=== PATIENT | male | born 1940 | race Caucasian/White ===

== ENCOUNTER 2022-08-22 03:49 | Outpatient (RCR) | payer MEDICARE, SELFPAY | END 2022-09-20 23:59 | disposition home or self-care (01) | LOC: MM 03:49 | PROVIDERS: PCP Internal Medicine; Visit Provider Internal Medicine | DX: Z51.81 Encounter for therapeutic drug level monitoring (principal); Z79.01 Long term (current) use of anticoagulants | CPT/HCPCS: 85610; G0463 ==

== ENCOUNTER 2022-09-25 15:37 | Outpatient (RCR) | payer MEDICARE, SELFPAY | END 2022-10-21 16:57 | disposition home or self-care (01) | LOC: MM 15:37 | PROVIDERS: PCP Internal Medicine; Visit Provider Internal Medicine | DX: Z51.81 Encounter for therapeutic drug level monitoring (principal); Z79.01 Long term (current) use of anticoagulants | CPT/HCPCS: 85610; G0463 ==

== ENCOUNTER 2022-10-02 08:42 | Outpatient (OUT) | payer OTHER, SELFPAY ==
--- NOTE | 2022-10-02 09:01 | XR_ITS ---
The [address] [address] Patient Name: CARLEY BELLA MRN: [id number] date: 1940 Sex: M Assigned Patient Location: RAD Current Patient Location: [facility] Accession/Order Number: [id number] Exam Date: 10/02/2022 09:20 Report Date: 10/02/2022 09:55 At the request of: NON-STAFF PHYSICIAN Procedure: XR knee RT 3V PROCEDURE: XR knee RT 3V HISTORY: Osteoporosis M81.0, Arthritis M13.80 ; right knee pain, no known injury COMPARISON: None. FINDINGS: BONES:Mild-moderate narrowing of the medial joint space with periarticular degenerative osteophytes along the margins of the medial compartment and anterior compartment. No fracture, dislocation, bone lesion. SOFT TISSUES:No visible soft tissue swelling. EFFUSION:None visible. OTHER: Negative. XR/XR knee RT 3V IMPRESSION: 1. Moderate degenerative joint disease of the right knee. No appreciable acute abnormality. Electronically authenticated by: STEVE WRIGHT Date: 10/02/2022 09:55
--- NOTE | 2022-10-02 09:01 | XR_ITS ---
[address] [address] Patient Name: CARLEY BELLA MRN: [id number] date: 1940 Sex: M Assigned Patient Location: RAD Current Patient Location: RAD Accession/Order Number: [id number] Exam Date: 10/02/2022 09:25 Report Date: 10/02/2022 09:53 At the request of: NON-STAFF PHYSICIAN Procedure: XR DEXA axial skeleton EXAMINATION: XR DEXA axial skeleton HISTORY: Osteoporosis M81.0, Arthritis M13.80 COMPARISON: No relevant comparison available. TECHNIQUE: Dual-energy X-ray absorptiometry (DXA) was performed. FINDINGS: FOREARM ANALYSIS: Average bone mineral density is 0.780 g/cm2. T-score (standard deviation relative to young adult mean): -0.3 . HIP ANALYSIS: Lowest bone mineral density is within the left femoral neck, 0.969 g/cm2. T-score (standard deviation relative to young adult mean): -0.8 . XR/XR DEXA axial skeleton IMPRESSION: [employer] Classification: Normal - Low Fracture Risk Electronically authenticated by: STEVE WRIGHT Date: 10/02/2022 09:53
== END 2022-10-02 08:43 | disposition home or self-care (01) ==
PROVIDERS: PCP Internal Medicine
DX: M81.0 Age-related osteoporosis without current pathological fracture (principal); M13.80 Other specified arthritis, unspecified site; M25.561 Pain in right knee; M17.11 Unilateral primary osteoarthritis, right knee
CPT/HCPCS: 73562; 77080

== ENCOUNTER 2022-10-22 09:18 | Outpatient (RCR) | payer MEDICARE, SELFPAY | END 2022-11-21 17:33 | disposition home or self-care (01) | LOC: MM 09:18 | PROVIDERS: PCP Internal Medicine; Visit Provider Internal Medicine | DX: Z51.81 Encounter for therapeutic drug level monitoring (principal); Z79.01 Long term (current) use of anticoagulants | CPT/HCPCS: 85610; G0463 ==

== ENCOUNTER 2022-11-22 10:19 | Outpatient (RCR) | payer MEDICARE, SELFPAY | END 2022-12-20 16:50 | disposition home or self-care (01) | LOC: MM 10:19 | PROVIDERS: PCP Internal Medicine; Visit Provider Internal Medicine | DX: Z51.81 Encounter for therapeutic drug level monitoring (principal); Z79.01 Long term (current) use of anticoagulants ==

== ENCOUNTER 2022-12-23 02:43 | Outpatient (RCR) | payer MEDICARE, SELFPAY | END 2023-01-21 17:41 | disposition home or self-care (01) | LOC: MM 02:43 | PROVIDERS: PCP Internal Medicine; Visit Provider Internal Medicine | DX: Z51.81 Encounter for therapeutic drug level monitoring (principal); Z79.01 Long term (current) use of anticoagulants; I82.409 Acute embolism and thrombosis of unspecified deep veins of unspecified lower extremity | CPT/HCPCS: 85610; G0463 ==

== ENCOUNTER 2023-01-03 14:06 | Outpatient (OUT) | payer MEDICARE, SELFPAY ==
--- NOTE | 2023-01-03 | US_ITS ---
The [address] [address] Patient Name: CARLEY BELLA MRN: [id number] date: 1940 Sex: M Assigned Patient Location: US Current Patient Location: Accession/Order Number: [id number] Exam Date: 01/03/2023 14:17 Report Date: 01/06/2023 06:29 At the request of: ZAINAB CLARK Procedure: US soft tissue head and neck EXAM: US soft tissue head and neck HISTORY: TYPE 2 DIABETES MELLITUS WITH HYPERGLYCEMIA E11.65 COMPARISON: None. TECHNIQUE: Grayscale and color ultrasound FINDINGS: Heterogeneous hypoechoic echogenic vascular mass corresponding to the patient's palpable abnormality along the left posterior inferior measuring 2.2 x 1.8 x 1.8 cm. US/US soft tissue head and neck IMPRESSION: 2.2 cm vascular mass corresponding to the patient's palpable abnormality. Unknown etiology. Electronically authenticated by: MIRELLA GARCIA Date: 01/06/2023 06:29
== END 2023-01-03 14:07 | disposition home or self-care (01) ==
LOC: US 14:06
PROVIDERS: PCP Internal Medicine; Visit Provider Internal Medicine
DX: E11.65 Type 2 diabetes mellitus with hyperglycemia (principal); R22.1 Localized swelling, mass and lump, neck
CPT/HCPCS: 76536

== ENCOUNTER 2023-01-17 07:58 | Outpatient (OUT) | payer MEDICARE, SELFPAY ==
[2023-01-17 08:27] LABS: INR 1.18; Prothrombin Time 12.4 sec (9.0-11.6)
== END 2023-01-17 07:59 | disposition home or self-care (01) ==
LOC: LAB 07:58
PROVIDERS: PCP Internal Medicine; Visit Provider Internal Medicine
DX: Z79.01 Long term (current) use of anticoagulants (principal)
CPT/HCPCS: 36415; 85610

== ENCOUNTER 2023-01-17 08:08 | Day surgery (SDC) | payer MEDICARE, SELFPAY ==
--- NOTE | 2023-01-17 08:26 | US_ITS ---
[address] [address] Patient Name: CARLEY BELLA MRN: [id number] date: 1940 Sex: M Assigned Patient Location: US Current Patient Location: Accession/Order Number: [id number] Exam Date: 01/17/2023 08:37 Report Date: 01/17/2023 11:15 At the request of: ZAINAB CLARK Procedure: US biopsy FNA EXAMINATION: US biopsy FNA HISTORY: Mass posterior to left ear COMPARISON: Ultrasound soft tissue head and neck 01/03/2023 TECHNIQUE: After obtaining informed consent, an ultrasound-guided biopsy was performed in the usual sterile manner. FINDINGS: IMAGING: Ultrasound guidance BIOPSY NEEDLE: 19-gauge needle; 3 separate passes SPECIMEN TYPE, #, LOCATION: 3 samples containing a thick gelatinous like substance. Firm nodule at posterior inferior margin of the ear at skull base MEDICATION: 1% buffered lidocaine for local anesthesia. COMPLICATIONS: None. LABORATORY: Pending OTHER: Negative. US/US biopsy FNA IMPRESSION: Uneventful ultrasound guided biopsy of subcutaneous mass at posterior inferior margin of left ear. The patient was instructed to obtain follow up care and biopsy results from the referring physician. Electronically authenticated by: STEVE WRIGHT Date: 01/17/2023 11:15
[2023-01-17 08:40] VITALS: BP 141/64; PULSE 75; O2SAT 94
[2023-01-17] MEDS: LIDOCAINE HCL 10 ML, SODIUM BICARBONATE 1 MEQ INJ (09:30)
== END 2023-01-17 10:00 | disposition home or self-care (01) ==
LOC: US 08:08
PROVIDERS: Radiology Diagnostic Radiology; PCP Internal Medicine; Visit Provider Internal Medicine
DX: R22.0 Localized swelling, mass and lump, head (principal)
CPT/HCPCS: 10005; 88173

== ENCOUNTER 2023-01-22 00:39 | Outpatient (RCR) | payer MEDICARE, SELFPAY | END 2023-02-20 16:48 | disposition home or self-care (01) | LOC: MM 00:39 | PROVIDERS: PCP Internal Medicine; Visit Provider Internal Medicine | DX: Z51.81 Encounter for therapeutic drug level monitoring (principal); Z79.01 Long term (current) use of anticoagulants | CPT/HCPCS: 85610; G0463 ==

== ENCOUNTER 2023-02-07 15:04 | Outpatient (OUT) | payer MEDICARE, SELFPAY ==
--- NOTE | 2023-02-07 15:07 | CT_ITS ---
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 TECHNIQUE: CT of the soft tissue neck was obtained without IV contrast and submitted for interpretation. FINDINGS: The imaged portions of the brain demonstrate no evidence for pathologic assessment. The imaged portions of the paranasal sinuses and mastoid air cells are clear. The nasopharynx, oropharynx and hypopharynx appear unremarkable. Along the posterior inferior aspect of the left parotid gland there is a heterogeneous enhancing rounded lesion with areas of hypoenhancement measuring 2 x 2 by 1.7 cm in AP, TV and CC dimensions. The right parotid gland is within normal limits. Bilateral submandibular glands and thyroid glands appear unremarkable. No abnormal lymphadenopathy visualized within the soft tissues of the neck. Vascular structures are intact. Imaged portions of the superior mediastinum are unremarkable. Calcified granuloma noted within the right lung apex measuring 6 mm. Multilevel spondylitic changes of the cervical spine without evidence for an acute osseous abnormality. CT/CT soft tissue neck w con IMPRESSION: 1. Along the posterior inferior aspect of the left parotid gland there is a heterogeneous enhancing rounded lesion with areas of hypoenhancement measuring approximately 2 x 2 by 1.7 cm in AP, TV and CC dimensions. Differential diagnosis include but not limited to primary parotid neoplasm such as pleomorphic adenoma, Warthin's tumor versus enlarged intraparotid lymph node. Electronically authenticated by: JESSICA LEIVA Date: 02/08/2023 05:45
== END 2023-02-07 15:05 | disposition home or self-care (01) ==
LOC: CT 15:04
PROVIDERS: PCP Internal Medicine; Visit Provider Otolaryngology
DX: K11.8 Other diseases of salivary glands (principal)
CPT/HCPCS: 70491; Q9967

== ENCOUNTER 2023-02-24 13:52 | Outpatient (OUT) | payer MEDICARE, SELFPAY ==
--- NOTE | 2023-02-24 13:56 | US_ITS ---
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 FINDINGS: Heterogeneous lobular and vascular mass 2.1 x 1.9 x 1.8 cm corresponding to patient's palpable lump. US/US soft tissue head and neck IMPRESSION: 1. Heterogeneous, avascular, suspicious appearing mass within left parotid gland region; not appreciably changed compared to 01/03/2023. Ultrasound-guided tissue sampling was performed on 01/17/2023 with pathology demonstrating atypia of undetermined significance. Electronically authenticated by: STEVE WRIGHT Date: 02/26/2023 00:56
== END 2023-02-24 13:53 | disposition home or self-care (01) ==
LOC: US 13:52
PROVIDERS: PCP Internal Medicine; Visit Provider Otolaryngology
DX: K11.8 Other diseases of salivary glands (principal)
CPT/HCPCS: 76536

== ENCOUNTER 2023-04-03 14:49 | Outpatient (RCR) | payer MEDICARE, SELFPAY | END 2023-04-23 17:12 | disposition home or self-care (01) | LOC: MM 14:49 | PROVIDERS: PCP Internal Medicine; Visit Provider Internal Medicine | DX: Z51.81 Encounter for therapeutic drug level monitoring (principal); Z79.01 Long term (current) use of anticoagulants; I82.409 Acute embolism and thrombosis of unspecified deep veins of unspecified lower extremity | CPT/HCPCS: 85610; G0463 ==

== ENCOUNTER 2023-04-24 01:49 | Outpatient (RCR) | payer MEDICARE, SELFPAY | END 2023-05-22 17:24 | disposition home or self-care (01) | LOC: MM 01:49 | PROVIDERS: PCP Internal Medicine; Visit Provider Internal Medicine | DX: Z51.81 Encounter for therapeutic drug level monitoring (principal); Z79.01 Long term (current) use of anticoagulants; I82.409 Acute embolism and thrombosis of unspecified deep veins of unspecified lower extremity | CPT/HCPCS: 85610; G0463 ==

== ENCOUNTER 2023-05-23 03:32 | Outpatient (RCR) | payer MEDICARE, SELFPAY | END 2023-06-20 14:10 | disposition home or self-care (01) | LOC: MM 03:32 | PROVIDERS: PCP Internal Medicine; Visit Provider Internal Medicine | DX: Z51.81 Encounter for therapeutic drug level monitoring (principal); Z79.01 Long term (current) use of anticoagulants; I82.409 Acute embolism and thrombosis of unspecified deep veins of unspecified lower extremity ==

== ENCOUNTER 2023-06-23 00:24 | Outpatient (RCR) | payer MEDICARE, SELFPAY | END 2023-07-22 18:01 | disposition home or self-care (01) | LOC: MM 00:24 | PROVIDERS: PCP Internal Medicine; Visit Provider Internal Medicine | DX: Z51.81 Encounter for therapeutic drug level monitoring (principal); Z79.01 Long term (current) use of anticoagulants | CPT/HCPCS: 85610; G0463 ==

== ENCOUNTER 2023-07-11 14:49 | Outpatient (OUT) | payer MEDICARE, SELFPAY ==
[2023-07-11 15:53] LABS: Basophils Percent Auto 0.5 % (0.2-2.0); Eosinophils Absolute Auto 0.2 10^3/uL (0.0-0.7); Eosinophils Percent Auto 2.3 % (0.9-7.0); Hemoglobin 14.3 g/dL (14.0-18.0); Immature Granulocytes Abs Auto 0.03 10^3/uL (0.00-0.03); Immature Granulocytes Pct Auto 0.3 % (0.0-0.5); Lymphocytes Absolute Auto 2.4 10^3/uL (1.2-3.8); Lymphocytes Percent Auto 26.8 % (20.5-60.0); Mean Corpuscular HGB Conc 33.3 g/dL (29.9-35.2); Mean Corpuscular Hemoglobin 31.2 pg (25.9-34.0); Mean Corpuscular Volume 93.9 fL (80.0-94.0); Mean Platelet Volume 9.8 fL (9.5-13.5); Monocytes Absolute Auto 0.8 10^3/uL (0.3-0.8); Monocytes Percent Auto 9.5 % (1.7-12.0); Neutrophils Absolute Auto 5.4 10^3/uL (1.4-6.5); Neutrophils Percent Auto 60.6 % (43.0-75.0); Platelet Count 213 10^3/uL (150-450); Red Blood Count 4.58 10^6/uL (4.70-6.10); Red Cell Distribution Width 12.7 % (11.0-15.0); White Blood Count 8.9 10^3/uL (4.0-11.0)
[2023-07-11 16:03] LABS: Estimated Average Glucose 177 mg/dL; Glycohemoglobin A1C 7.8 % (4.5-6.2)
[2023-07-11 16:07] LABS: Alanine Aminotransferase 37 U/L (16-63); Albumin Globulin Ratio 0.9; Albumin Level 3.6 g/dL (3.4-5.0); Alkaline Phosphatase 87 U/L (46-116); Anion Gap 11.3; Aspartate Amino Transferase 27 U/L (15-37); BUN Creatinine Ratio 10.6; Bilirubin Total 0.5 mg/dL (0.2-1.0); Calcium 9.3 mg/dL (8.5-10.1); Carbon Dioxide 26.9 mmol/L (21.0-32.0); Chloride 105 mmol/L (98-107); Chol HDL Ratio 3.4; Cholesterol 137 mg/dL (<=200); Estimated GFR (African America 58 (>=60); Estimated GFR (Non-African Ame 48 (>=60); Globulin 3.9 g/dL; Glucose 158 mg/dL (74-106); HDL Cholesterol 40 mg/dL (40-60); Potassium 4.2 mmol/L (3.5-5.1); Sodium 139 mmol/L (136-145); Total Protein 7.5 g/dL (6.4-8.2); Triglycerides 169 mg/dL (<=150); VLDL CHOLESTEROL 33.8 mg/dL
== END 2023-07-11 14:50 | disposition home or self-care (01) ==
LOC: LAB 14:50
PROVIDERS: PCP Internal Medicine; Visit Provider Internal Medicine
DX: E11.65 Type 2 diabetes mellitus with hyperglycemia (principal); E11.22 Type 2 diabetes mellitus with diabetic chronic kidney disease; E78.00 Pure hypercholesterolemia, unspecified; I12.9 Hypertensive chronic kidney disease with stage 1 through stage 4 chronic kidney disease, or unspecified chronic kidney disease; C90.00 Multiple myeloma not having achieved remission; N18.32 Chronic kidney disease, stage 3b
CPT/HCPCS: 36415; 80053; 80061; 82043; 83036; 85025

== ENCOUNTER 2023-07-14 12:33 | Outpatient (REF) | payer MEDICARE, SELFPAY | END 2023-07-14 12:34 | disposition home or self-care (01) | LOC: LAB 12:33 | PROVIDERS: PCP Internal Medicine; Visit Provider Internal Medicine | DX: E11.65 Type 2 diabetes mellitus with hyperglycemia (principal); E11.22 Type 2 diabetes mellitus with diabetic chronic kidney disease; N18.9 Chronic kidney disease, unspecified; E78.00 Pure hypercholesterolemia, unspecified; C90.00 Multiple myeloma not having achieved remission; I12.9 Hypertensive chronic kidney disease with stage 1 through stage 4 chronic kidney disease, or unspecified chronic kidney disease | CPT/HCPCS: 82043 ==

== ENCOUNTER 2023-07-23 00:24 | Outpatient (RCR) | payer MEDICARE, SELFPAY | END 2023-08-22 11:21 | disposition home or self-care (01) | LOC: MM 00:24 | PROVIDERS: PCP Internal Medicine; Visit Provider Internal Medicine | DX: Z51.81 Encounter for therapeutic drug level monitoring (principal); Z79.01 Long term (current) use of anticoagulants; I82.409 Acute embolism and thrombosis of unspecified deep veins of unspecified lower extremity | CPT/HCPCS: 85610; G0463 ==

== ENCOUNTER 2023-08-15 16:55 | Outpatient (OUT) | payer MEDICARE, SELFPAY ==
--- NOTE | 2023-08-15 | XR_ITS ---
[address] [address] Patient Name: CARLEY BELLA MRN: [id number] date: 1940 Sex: M Assigned Patient Location: [facility] Current Patient Location: [facility] Accession/Order Number: [id number] Exam Date: 08/15/2023 17:45 Report Date: 08/18/2023 10:31 At the request of: ZAINAB CLARK Procedure: XR chest 2V CHEST PA AND LATERAL, 08/15/2023. HISTORY: Dorsalgia. Shortness of breath. COMPARISON: None. FINDINGS: 2 views of the chest obtained. Heart size and mediastinal contours are normal. No pleural effusion. No airspace consolidation. No evidence of pneumonia. No pulmonary edema. No pneumothorax. XR/XR chest 2V IMPRESSION: Lungs are clear. No acute findings. Electronically authenticated by: MANDY BO Date: 08/18/2023 10:31
--- NOTE | 2023-08-15 | XR_ITS ---
[address] [address] Patient Name: CARLEY BELLA MRN: [id number] date: 1940 Sex: M Assigned Patient Location: [facility] Current Patient Location: [facility] Accession/Order Number: [id number] Exam Date: 08/15/2023 17:45 Report Date: 08/18/2023 10:31 At the request of: ZAINAB CLARK Procedure: XR lumbar spine 2-3V LUMBAR SPINE X-RAYS, 08/15/2023. HISTORY: Back pain. History of compression fracture. COMPARISON: None. FINDINGS: 2 views obtained. Chronic compression fracture at L1 with mild decreased vertebral body height. Prior vertebroplasty at L1. No acute lumbar compression fracture. Spondylolysis at L5. Grade 1 spondylolisthesis at L5-S1 measures 5 mm. Severe degenerative disc disease at L5-S1 with severe disc space narrowing. Diffuse endplate osteophytes. There is vacuum disc phenomenon at this level. Moderate degenerative disc disease at L3-L4 and L4-L5. Severe facet arthropathy at L4-L5 and L5-S1. XR/XR lumbar spine 2-3V IMPRESSION: 1. Chronic compression fracture at L1 with mild decreased vertebral body height and prior vertebroplasty. No acute compression fracture. 2. Spondylolysis at L5 with grade 1 spondylolisthesis at L5-S1. Severe degenerative disc disease and facet arthropathy at L5-S1. 3. Severe facet arthropathy and moderate degenerative disc disease at L4-L5. Electronically authenticated by: MANDY BO Date: 08/18/2023 10:31
--- NOTE | 2023-08-15 | XR_ITS ---
The [address] [address] Patient Name: CARLEY BELLA MRN: [id number] date: 1940 Sex: M Assigned Patient Location: RAD Current Patient Location: [facility] Accession/Order Number: [id number] Exam Date: 08/15/2023 17:45 Report Date: 08/18/2023 10:31 At the request of: ZAINAB CLARK Procedure: XR thoracic spine 3V THORACIC SPINE X-RAYS, 08/15/2023. HISTORY: Back pain. Pain in upper back. COMPARISON: None. FINDINGS: 3 views obtained. Alignment is normal. There is a chronic compression fracture at L1 with prior vertebroplasty. No acute compression fracture in the thoracic spine. Mild degenerative disc disease with small anterior endplate osteophytes mostly in the mid and lower thoracic levels. XR/XR thoracic spine 3V IMPRESSION: 1. No acute thoracic spine compression fracture. Alignment normal. 2. Mild degenerative disc disease with small anterior endplate osteophytes most prominent in the lower and mid thoracic levels. 3. Chronic compression fracture at L1 with prior vertebroplasty. Electronically authenticated by: MANDY BO Date: 08/18/2023 10:31
--- OUTSIDE RECORDS SUMMARY | 2023-08-15 17:20 | XMS_ITS | CCD ---
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 Name Role Phone Adamowicz, Shawn Unavailable Unavailable Adamowicz, Shawn Unavailable Unavailable Adamowicz, Shawn Unavailable Unavailable DANILO THAKKAR~[id number] UNKNOWN Unavailable Unavailable Adamowicz, Shawn Unavailable Unavailable Adamowicz, Shawn Unavailable Unavailable Tomasa, Shawn Unavailable Unavailable DANILO THAKKAR~[phone] UNKNOWN Unavailable Unavailable Sujit Jefferson~[phone] UNKNOWN Unavailable Unavailable Danilo Thakkra DO Primary Care Provider Danilo Thakkar DO Primary Care Provider Danilo Thakkar TEEWWAD, IVY H Attending Unavailable FAWWAD, IVY H Admitting Unavailable BALL, DR LAMB Primary Care Unavailable FAWWAD, IVY H Attending Unavailable FAWWAD, IVY H Admitting Unavailable BALL, DR LAMB Primary Care Unavailable FAWWAD, IVY H Attending Unavailable FAWWAD, IVY H Admitting Unavailable BALL, DR LAMB Primary Care Unavailable FAWWAD, IVY H Attending Unavailable FAWWAD, IVY H Admitting Unavailable BALL, DR LAMB Primary Care Unavailable FAWWAD, IVY H Attending Unavailable FAWWAD, IVY H Admitting Unavailable BALL, DR LAMB Primary Care Unavailable FAWWAD, IVY H Attending Unavailable FAWWAD, IVY H Admitting Unavailable BALL, DR LAMB Primary Care Unavailable FAWWAD, IVY H Attending Unavailable FAWWAD, IVY H Admitting Unavailable BALL, DR LAMB Primary Care Unavailable FAWWAD, IVY H Attending Unavailable BALL, DR LAMB Primary Care Unavailable FAWWAD, IVY H Admitting Unavailable FAWWAD, IVY H Attending Unavailable FAWWAD, IVY H Admitting Unavailable BALL, DR LAMB Primary Care Unavailable BALL, DR LAMB Consulting Unavailable BALL, DR LAMB Attending Unavailable BALL, DR LAMB Admitting Unavailable BALL, DR LAMB Primary Care Unavailable BALL, DR LAMB Primary Care Unavailable BALL, DR LAMB Consulting Unavailable BALL, DR LAMB Attending Unavailable BALL, DR LAMB Admitting Unavailable BALL, DR LAMB Consulting Unavailable BALL, DR LAMB Attending Unavailable BALL, DR LAMB Admitting Unavailable BALL, DR LAMB Primary Care Unavailable FAWWAD, IVY H Attending Unavailable FAWWAD, IVY H Admitting Unavailable BALL, DR LAMB Primary Care Unavailable FAWWAD, IVY H Attending Unavailable FAWWAD, IVY H Admitting Unavailable BALL, DR LAMB Primary Care Unavailable Unavailable Primary Care Provider Unavailabl e REZAEE, JULIAN P Attending Unavailable REZAEE, JULIAN P Admitting Unavailable REZAEE, JULIAN P Attending Unavailable LUIS CARLOS, WEN Pompa Attending Unavailable TIMMIS, DEEPTHI Gunderson Attending Unavailable LUIS CARLOS, WEN Pompa Attending Unavailable Ball DODanilo Primary Care Provider DANILO THAKKAR E Primary Care Unavailable BALL, DANILO E Primary Care Unavailable ABHYANKAR, ANIBAL Referring Unavailable BALL, DANILO E Primary Care Unavailable ABHYANKAR, ANIBAL Attending Unavailable BALL, DANILO E Primary Care Unavailable ABHYANKAR, ANIBAL Attending Unavailable BALL, DANILO E Primary Care Unavailable Allergies Allergy Classification Reported Allergen(s) Allergy Type Date of Onset Reaction(s) Facility (8 sources) Penicillins; Translations: [PENICILLINS] Drug Allergy 4 Swelling, Unknown [facility] Work Phone: (20 sources) penicillAMINE; Translations: [PENICILLAMINE] Drug Allergy 4 Unknown [facility] Other (10 sources) Penicillins Propensity to adverse reactions Unknown [facility] Other (1 source) Penicillins Drug allergy (disorder) 4 [facility] Repository (12 sources) Lisinopril; Translations: [LISINOPRIL] Drug Allergy 3 Unknown [facility] (9 sources) Penicillin V Drug Allergy 4 Unknown, Unknown Reaction [facility] Medications Current Medications Medication Drug Class(es) Dates Sig (Normalized) Sig (Original) Accu-Chek Elizabeth Plus - (8 sources) Accu-Chek Elizabeth Plus - USE AND DISCARD 1 TEST STRIP TO CHECK HOME BLOOD SUGAR TWO TIMES A DAY for 90 Active acyclovir 400 mg oral tablet (3 sources) Herpesvirus Nucleoside Analog DNA Polymerase Inhibitor, Herpes Simplex Virus Nucleoside Analog DNA Polymerase Inhibitor, Herpes Zoster Virus Nucleoside Analog DNA Polymerase Inhibitor Start: 07-21-2017 take 1 tablet by mouth twice daily acyclovir (ZOVIRAX) 400 mg tablet TAKE ONE TABLET BY MOUTH TWICE DAILY 60 tablet 5 07/21/2017 Active Comment on above: TAKE ONE TABLET BY M OUTH TWICE DAILY ascorbic acid 4700 mg / polyethylene glycol 3350 138360 mg / potassium chloride 1015 mg / sodium ascorbate 5900 mg / sodium chloride 2690 mg / sodium sulfate 7500 mg powder for oral solution (15 sources) Osmotic Laxative, Vitamin C Start: 07-28-2013 peg-sod nyt-VeIa-UNx-asb- C (MoviPrep) 100-7.5-2.691 gram solution Take by mouth. 0 07/28/2013 Active Start: 07-28-2013 MoviPrep 100 G M as directed Orally 1 for 1 July, Not-Taking atorvastatin 20 mg oral tablet (20 sources) HMG-CoA Reductase Inhibitor Start: 12-12-2016 atorvastatin (Lipitor) 20 mg tablet Take by mouth. 0 01/13/2023 Active Comment on above: Take 20 mg by mouth once daily. diclofenac sodium 0.01 mg/mg topical gel (3 sources) Nonsteroidal Anti-inflammatory Drug Start: 04-18-2017 apply 2 g topically four times daily VOLTAREN 1 % topical gel Apply 2 g to affected area four times daily. 0 04/18/2017 Active Comment on above: Apply 2 g to affecte d area four times daily. docusate sodium 50 mg / sennosides, snf 8.6 mg oral tablet (4 sources) Start: 03-11-2017 take 2 tablets by mouth twice daily senna-docusate (MEDI-NATURAL SENNA-STOOL) 8.6-50 mg per tablet Take 2 tablets by mouth twice daily. 120 tablet 5 03/11/2017 Active Comment on above: Take 2 tablets by mo uth twice daily. escitalopram 10 mg oral tablet (20 sources) Serotonin Reuptake Inhibitor Start: 06-04-2023 take 10 mg by mouth once daily Escitalopram Oxalate Active 10 MG PO Daily June 04, 2023 12:00am Start: 01-13-2023 escitalopram ( Lexapro) 10 mg tablet Take by mouth. 0 01/13/2023 Active Start: 05-22-2017 take 1 tablet by keena th once daily escitalopram oxalate (LEXAPRO) 20 mg tablet Indications: 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 (HCC) , Chronic pain due to neoplasm , Malaise and fatigue Take 1 tablet by mouth once daily. 30 tablet 1 05/22/2017 Active Comment on above: Take 1 tablet by keena th once daily. gabapentin 300 mg oral capsule (20 sources) Anti-epileptic Agent Start: 10-22-2017 take 300 mg by mouth three times daily Gabapentin Active 300 MG PO Three times daily June 04, 2023 12:00am Start: 10-22-2017 gabapentin (Ne urontin) 100 mg capsule Take by mouth. 0 10/22/2017 Active GABAPENTIN ORAL Take by mouth. 0 Active Comment on above: Take by mouth. glimepiride 4 mg oral tablet (20 sources) Sulfonylurea Start: 06-04-2023 take 4 mg by mouth once daily Glimepiride Active 4 MG PO Daily June 04, 2023 9:27am Start: 05-26-2023 End: 06-04-2023 take 1 tablet by mouth once daily at breakfast Glimepiride Discontinued 0 .ROUTE .COMPLEX 90 May 26, 2023 1:41pm June 04, 2023 9:29am TAKE 1 TABLET BY MOUTH ONCE DAILY 30 MINUITES PRIOR TO BREAKFAST Start: 05-26-2023 End: 05-26-2023 take 4 mg by mouth once daily Glimepiride Discontinued 4 MG PO Daily May 26, 2023 1:00am May 26, 2023 1:41pm take 1 tablet by keena th once daily at breakfast glimepiride (AMARYL) 1 mg tablet Take 1 mg by mouth daily with breakfast. 0 Active take 1 tablet by keena th once daily Glimepiride 4 MG 1tablet Orally Once a day, taken 30 minutes prior to bkfst Active Glimepiride 2 MG TAKE 1 TABLET BY MOUTH ONCE DAILY 30 MINUTES PRIOR TO BREAKFAST for 90 Active Comment on above: Take 1 mg by mouth d aily with breakfast. hydrocortisone 25 mg/ml topical cream (1 source) Corticosteroid Start: 11-15-2022 hydrocortisone 2.5 % cream APPLY TO FACE ONCE A DAY FRIDAY THROUGH FRIDAY OFF ON WEEKENDS (REPEAT NEEDED FOR FLARES) 0 11/15/2022 Active 3 ml insulin glargine 100 unt/ml pen injector (20 sources) Insulin Analog Start: 07-01-2023 Insulin Glargine (Lantus Solostar U-100 Insulin) 100 unit/mL (3 mL) insulin pen Active 0 .ROUTE .COMPLEX 45 July 01, 2023 4:28pm INJECT 50 UNITS SUBCUTANEOUSLY ONCE A DAY Start: 06-04-2023 End: 07-01-2023 inject 30 [IU] by subcutaneous injection twice daily Insulin Glargine Discontinued 30 UNIT SUBCUT Twice daily June 04, 2023 9:27am July 01, 2023 4:28pm Start: 02-18-2017 End: 06-04-2023 inject 10 [IU] by subcutaneous injection once daily at bedtime Insulin Glargine Discontinued 10 UNIT SUBCUT Daily at bedtime 3 February 18, 2017 1:00am June 04, 2023 9:29am Start: 12-12-2016 End: 02-18-2017 inject 70 [IU] by subcutaneous injection once daily at bedtime Insulin Glargine Discontinued 70 UNIT SUBCUT Daily at bedtime December 12, 2016 12:00am February 18, 2017 1:49pm insulin glargine (Lantus) 100 unit/mL injection Inject under the skin. 0 Active inject 50 [IU] by gallegos bcutaneous injection once daily Lantus 100 UNIT/ML 50 Units Subcutaneous once a day 10 units Active inject 20 [IU] by gallegos bcutaneous injection twice daily Lantus 100 UNIT/ML 20units Subcutaneous twice daily 10 units Active Comment on above: Inject 10 Units subc utaneously daily at bedtime. linagliptin 5 mg oral tablet (20 sources) Dipeptidyl Peptidase 4 Inhibitor Start: take 1 tablet by mouth once daily Linagliptin (Tradjenta) 5 mg tablet Active 5 MG PO Daily June 04, 2023 12:00am Start: 01-13-2023 linaGLIPtin (T radjenta) 5 mg tablet Take by mouth. 0 01/13/2023 Active Comment on above: Take 5 mg by mouth o nce daily. losartan potassium 50 mg oral tablet (20 sources) Angiotensin 2 Receptor Salom[place] Start: 06-04-2023 take 50 mg by mouth twice daily Losartan Active 50 MG PO Twice daily June 04, 2023 12:00am Start: 01-13-2023 losartan (Coza ar) 50 mg tablet Take by mouth. 0 01/13/2023 Active ondansetron 4 mg oral tablet (3 sources) Serotonin-3 Receptor Antagonist Start: 02-06-2017 take 1 tablet by mouth every eight hours as needed ondansetron (ZOFRAN) 4 mg tablet Take 4 mg by mouth every 8 hours as needed. 0 02/06/2017 Active Comment on above: Take 4 mg by mouth e very 8 hours as needed. oxyCODONE hydrochloride 5 mg oral tablet (20 sources) Opioid Agonist Start: 06-04-2023 take 5 mg by mouth every twelve hours Oxycodone Active 5 MG PO Every 12 hours June 04, 2023 12:00am Start: 07-03-2022 take 1 tablet by keena th every twelve hours as needed for pain oxyCODONE HCl 5 MG 1 tablet as needed Orally every 12 hours as needed for pain Jun, Active Start: 06-06-2020 take 2 tablets by mo [facility] every six hours as needed oxyCODONE IR (ROXICODONE) 5 mg immediate release tablet Indications: 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 (HCC) , Chronic pain due to neoplasm Take 2 tablets by mouth every 6 hours as needed for up to 30 days. 120 tablet 0 06/06/2020 Active take 1 capsule by mo uth twice daily as needed oxyCODONE (Oxy-IR) 5 mg immediate release capsule Take 1 capsule (5 mg) by mouth 2 times a day as needed. 0 Active take 1 tablet by keena th every six hours oxyCODONE HCl 5 MG 1 tablet as needed Orally every 6 hrs Active Comment on above: Take 2 tablets by mo uth every 6 hours as needed for up to 30 days. pantoprazole 40 mg delayed release oral tablet (20 sources) Proton Pump Inhibitor Start: End: take 1 tablet by mouth once daily pantoprazole DR (PROTONIX) 40 mg tablet Take 40 mg by mouth once daily. 0 02/18/2017 Active Comment on above: Take 40 mg by mouth once daily. pioglitazone 15 mg oral tablet (3 sources) Peroxisome Proliferator Receptor alpha Agonist, Peroxisome Proliferator Receptor gamma Agonist, Thiazolidinedione Start: 022 take 1 tablet by mouth once daily before breakfast pioglitazone (ACTOS) 15 mg tablet Take 15 mg by mouth daily before breakfast. 0 06/03/2021 Active Comment on above: Take 15 mg by mouth daily before breakfast. predniSONE 5 mg oral tablet (3 sources) Start: 018 take 1 tablet by mouth once daily predniSONE (DELTASONE) 5 mg tablet Indications: 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 (HCC) , Chronic pain due to neoplasm , Malaise and fatigue Take 1 tablet by mouth once daily. 30 tablet 0 05/22/2017 Active Comment on above: Take 1 tablet by keena th once daily. tamsulosin hydrochloride 0.4 mg oral capsule (20 sources) alpha-Adrenergic Salomón Start: 023 take 1 capsule by mouth every twenty-four hours tamsulosin (Flomax) 0.4 mg 24 hr capsule Take by mouth. 0 01/13/2023 Active Start: 12-12-2016 take 0.4 mg by mouth once daily at bedtime Tamsulosin Active 0.4 MG PO Daily at bedtime December 12, 2016 12:00am Comment on above: Take 0.4 mg by mouth once daily. warfarin sodium 5 mg oral tablet (20 sources) Vitamin K Antagonist Start: 06-04-2023 take 1-2 tablets by mouth once daily Warfarin Active 0 PO Daily June 04, 2023 12:00am 1-2 tablets per INR orally daily; Start: 04-04-2023 take 1-2 tablets by mouth once warfarin (Coumadin) 5 mg tablet TAKE 1 TO 2 TABLETS BY MOUTH ONCE DAILY PER INR RESULTS 0 04/04/2023 Active Start: 03-31-2017 Warfarin Sodiu m 5 MG 1 - 2 tablets per INR results Orally Once a day for 90 days Sep, Active Start: 12-12-2016 End: 02-18-2017 take 5.5 mg by mouth once daily at bedtime Warfarin Discontinued 5.5 MG PO Daily at bedtime December 12, 2016 12:00am February 18, 2017 1:27pm Warfarin 5mg Act reny Comment on above: Take 5 mg by mouth o nce daily. Weds and Sat 2.5 mg Completed/Discontinued Medications Medication Drug Class(es) Dates Sig (Normalized) Sig (Original) acetaminophen 325 mg / oxyCODONE hydrochloride 5 mg oral tablet (2 sources) Opioid Agonist Start: 12-13-2016 End: 06-04-2023 take 1-2 tablets by mouth every four to six hours as needed for pain Oxycodone-Acetami nophen (Percocet) 5-325 mg tablet Discontinued 1 - 2 TAB PO EVERY 4-6 HOURS September 09, 2017 June 04, 2023 9:29am 1-2 tabs PO Q 4-6 hours as needed for pain amLODIPine 5 mg oral tablet (1 source) Dihydropyridine Calcium Channel [place]om[place] Start: 02-18-2017 End: 06-04-2023 take 5 mg by mouth once daily Amlodipine Discontinued 5 MG PO Daily February 18, 2017 1:00am June 04, 2023 9:29am aspirin 81 mg delayed release oral tablet (1 source) Platelet Aggregation Inhibitor, Nonsteroidal Anti-inflammatory Drug Start: 12-12-2016 End: 02-18-2017 take 1 tablet by mouth once daily Aspirin (Aspir-Low) 81 mg Tablet,Delayed Release (Dr/Ec) Discontinued 1 TAB PO Daily December 12, 2016 12:00am February 18, 2017 1:26pm doxycycline hyclate 100 mg oral tablet (2 sources) Tetracycline-class Drug Start: 09-09-2017 End: 06-04-2023 take 100 mg by mouth twice daily Doxycycline Hyclate Discontinued 100 MG PO Twice daily 20 September 09, 2017 12:00am June 04, 2023 9:29am Start: 12-13-2016 End: 12-20-2016 take 100 mg by mouth twice daily Doxycycline Hyclate Discontinued 100 MG PO Twice daily 14 December 13, 2016 12:00am December 20, 2016 12:04am 24 hr felodipine 5 mg extended release oral tablet (1 source) Dihydropyridine Calcium Channel Salomón Start: 12-12-2016 End: 02-18-2017 take 5 mg by mouth once daily Felodipine Discontinued 5 MG PO Daily December 12, 2016 12:00am February 18, 2017 1:31pm hydroCHLOROthiazide 12.5 mg / losartan potassium 100 mg oral tablet (4 sources) Thiazide Diuretic, Angiotensin 2 Receptor Salomón Start: 12-12-2016 End: 06-04-2023 take 1 tablet by mouth once daily Losartan-Hydroch lorothiazide Discontinued 1 TAB PO Daily December 12, 2016 12:00am June 04, 2023 9:29am Comment on above: Take 1 tablet by keena th once daily. 1/2 tab daily lidocaine 0.05 mg/mg medicated patch (14 sources) Antiarrhythmic, Amide Local Anesthetic Start: 05-22-2018 Lidocaine 5 % 1 patch to skin remove after 12 hours Externally Once a day for 30 days May, Not-Taking linagliptin 2.5 mg / metFORMIN hydrochloride 1000 mg oral tablet (1 source) Biguanide, Dipeptidyl Peptidase 4 Inhibitor Start: 12-12-2016 End: 06-04-2023 Linagliptin-Metf ormin Discontinued 1 TAB PO 1-2 TIMES DAILY December 12, 2016 12:00am June 04, 2023 9:29am LORazepam (14 sources) Benzodiazepine LORazepam Not-Taking Multivitamin preparation (1 source) Start: 12-12-2016 End: 06-04-2023 take 1 tablet by mouth once daily Multivitamin Discontinued 1 TAB PO Daily December 12, 2016 12:00am June 04, 2023 9:29am Triamcinolone (20 sources) Corticosteroid Start: 07-03-2018 Kenalog -40 mg Jun, 40 mg Start: 05-22-2018 Kenalog -40 mg May, 40 mg Start: 01-21-2018 Kenalog -40 mg Dec, 40 mg Start: 07-09-2017 Kenalog -40 mg Jun, Problems Active Problems Problem Classification Problem Date Documented Da te Episodic/Chronic Abdominal pain (1 source) Flank pain; Translations: [Unspecified abdominal pain] 08-11-2023 Episodic Biliary tract disease (20 sources) Biliary calculus; Translations: [Calculus of gallbladder without cholecystitis without obstruction] Episodic Blindness and vision defects (8 sources) Visual disturbance; Translations: [Other visual disturbances] Episodic Chronic kidney disease (20 sources) Chronic kidney disease stage 3B ; Translations: [Chronic kidney disease, stage 3b] Onset: 7 07-03-2023 Chronic Coagulation and hemorrhagic disorders (3 sources) Thrombocytopenic disorder; Translations: [Thrombocytopenia, unspecified] Onset: 4 04-09-2023 Chronic Deficiency and other anemia (1 source) Anemia due to blood loss; Translations: [Iron deficiency anemia secondary to blood loss (chronic)] 04-09-2023 Chronic Diabetes mellitus with complications (20 sources) Polyneuropathy due to type 2 diabetes mellitus; Translations: [Type 2 diabetes mellitus with diabetic polyneuropathy] Onset: 7 Chronic Diabetes mellitus without complication (8 sources) Type 2 diabetes mellitus without complication; Translations: [Diabetes mellitus without mention of complication, type II or unspecified type, not stated as uncontrolled] Onset: 7 Chronic Diseases of mouth; excluding dental (6 sources) Mass of parotid gland; Translations: [Other diseases of salivary glands] Onset: 4 05-13-2023 Episodic Disorders of lipid metabolism (20 sources) Hypercholesterolemia; Translations: [Pure hypercholesterolemia, unspecified] Onset: 0 Chronic Essential hypertension (20 sources) Essential hypertension; Translations: [Essential (primary) hypertension] Chronic Fracture of upper limb (20 sources) Closed fracture of acromial process of scapula; Translations: [Nondisplaced fracture of acromial process, right shoulder, initial encounter for closed fracture] Episodic Gastrointestinal hemorrhage (20 sources) Gastrointestinal hemorrhage; Translations: [Gastrointestinal hemorrhage, unspecified] Onset: 7 03-05-2023 Episodic Genitourinary symptoms and ill-defined conditions (18 sources) Nocturia; Translations: [Nocturia] Episodic Hyperplasia of prostate (20 sources) Nocturia due to benign prostatic hypertrophy; Translations: [Benign prostatic hyperplasia with lower urinary tract symptoms] Chronic Immunity disorders (3 sources) Monoclonal gammopathy (clinical); Translations: [Hypergammaglobulinemi a, unspecified] Onset: 7 11-28-2016 Chronic Immunizations and screening for infectious disease (8 sources) Vaccination given; Translations: [Encounter for immunization] Episodic Lymphadenitis (1 source) Localized enlarged lymph nodes Episodic Malaise and fatigue (19 sources) Malaise and fatigue; Translations: [Other malaise] Onset: 4 11-05-2016 Episodic Mood disorders (17 sources) Recurrent major depressive episodes, mild ; Translations: [Major depressive disorder, recurrent, mild] Onset: 4 Chronic Multiple myeloma (20 sources) Multiple myeloma; Translations: [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] Onset: 7 Chronic Neoplasms of unspecified nature or uncertain behavior (8 sources) Monoclonal gammopathy; Translations: [Monoclonal gammopathy] Onset: 7 Chronic Non-Hodgkin`s lymphoma (18 sources) History of multiple myeloma; Translations: [Personal history of other malignant neoplasms of lymphoid, hematopoietic and related tissues] Episodic Osteoarthritis (8 sources) Osteoarthritis; Translations: [Polyosteoarthritis, unspecified] Chronic Other aftercare (18 sources) Long-term current use of insulin; Translations: [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 insulin] Episodic Other aftercare (19 sources) Long-term current use of anticoagulant; Translations: [residential (current) use of anticoagulants] 06-04-2023 Episodic Other aftercare (5 sources) residential (current) use of anticoagulants; Translations: [BUTTERMAKER CURRNT USE ANTICOAGULANTS] Onset: 3 Episodic Other aftercare (1 source) Other 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 (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 therapy Episodic Other aftercare (5 sources) Encounter for therapeutic drug level monitoring; Translations: [ENC THERAPEUTC DRUG LEVL MONITORING] Onset: 3 Episodic Other and unspecified benign neoplasm (8 sources) Benign neoplasm of colon; Translations: [Benign neoplasm of colon, unspecified] Episodic Other bone disease and musculoskeletal deformities (18 sources) Disorder of bone; Translations: [Disorder of bone, unspecified] Episodic Other endocrine disorders (8 sources) Testicular hypofunction; Translations: [Other testicular hypofunction] Chronic Other fractures (18 sources) Collapsed vertebra, not elsewhere classified, lumbar region, subsequent encounter for fracture with routine healing; Translations: [Collapse of lumbar vertebra with routine healing] Episodic Other injuries and conditions due to external causes (8 sources) History of fall; Translations: [History of falling] Episodic Other nervous system disorders (3 sources) Pain due to neoplastic disease; Translations: [Neoplasm related pain (acute) (chronic)] Onset: 8 05-07-2017 Chronic Other nervous system disorders (20 sources) Carpal tunnel syndrome; Translations: [Carpal tunnel syndrome, right upper limb] Chronic Other nervous system disorders (18 sources) Cubital tunnel syndrome; Translations: [Lesion of ulnar nerve, right upper limb] Chronic Other nervous system disorders (19 sources) Carpal tunnel syndrome of right wrist; Translations: [Carpal tunnel syndrome, right upper limb] 06-04-2023 Chronic Other nervous system disorders (18 sources) Complex regional pain syndrome type I of right upper limb; Translations: [Complex regional pain syndrome I of right upper limb] Chronic Other nervous system disorders (5 sources) Complex regional pain syndrome I of right upper limb Chronic Other nervous system disorders (16 sources) Shoulder-hand syndrome; Translations: [Complex regional pain syndrome I of right upper limb] Onset: 8 Chronic Other nervous system disorders (8 sources) Hereditary peripheral neuropathy; Translations: [Unspecified hereditary and idiopathic peripheral neuropathy] Onset: 5 Chronic Other nutritional; endocrine; and metabolic disorders (20 sources) Simple obesity ; Translations: [Other obesity due to excess calories] Onset: 0 Chronic Other nutritional; endocrine; and metabolic disorders (20 sources) Obese class II; Translations: [Body mass index (BMI) 38.0-38.9, adult] Onset: 0 Chronic Other nutritional; endocrine; and metabolic disorders (20 sources) Obesity; Translations: [Obesity, unspecified] Chronic Other nutritional; endocrine; and metabolic disorders (1 source) Other obesity due to excess calories Chronic Other nutritional; endocrine; and metabolic disorders (8 sources) Morbid obesity; Translations: [Morbid (severe) obesity due to excess calories] Onset: 0 Chronic Other nutritional; endocrine; and metabolic disorders (8 sources) Obese class I; Translations: [Body mass index 32.0-32.9, adult] Onset: 0 Chronic Phlebitis; thrombophlebitis and thromboembolism (1 source) Chronic embolism and thrombosis of unspecified deep veins of unspecified lower extremity; Translations: [CHR EMB THROMB UNS DP VN UNS LW EXT] Onset: 2 Chronic Phlebitis; thrombophlebitis and thromboembolism (5 sources) Acute embolism and thrombosis of unspecified deep veins of unspecified lower extremity; Translations: [AC EMBO THROMB UNS DP VN UNS LW EXT] Onset: 3 Episodic Pulmonary heart disease (20 sources) H/O: pulmonary embolus; Translations: [Personal history of pulmonary embolism] Onset: 7 Episodic Residual codes; unclassified (18 sources) Postprocedural state finding; Translations: [Other specified postprocedural states] Episodic Secondary malignancies (20 sources) Secondary malignant neoplasm of bone; Translations: [Secondary malignant neoplasm of bone] Onset: 8 Chronic Secondary malignancies (5 sources) Secondary malignant neoplasm of bone Chronic Spondylosis; intervertebral disc disorders; other back problems (19 sources) Prolapsed thoracic intervertebral disc; Translations: [Other intervertebral disc displacement, thoracic region] 06-04-2023 Chronic Past or Other Problems Problem Classification Problem Date Documented Date Episodic/Chronic Acute posthemorrhagic anemia (8 sources) Acute posthemorrhagic anemia; Translations: [Acute posthemorrhagic anemia] Onset: 02-27-2017 Episodic Chronic kidney disease (4 sources) Chronic kidney disease Deficiency and other anemia (9 sources) Anemia; Translations: [Anemia, unspecified] Onset: 10-16-2016 06-04-2023 Episodic Inflammation; infection of eye (except that caused by tuberculosis or sexually transmitteddisease) (8 sources) Acute conjunctivitis; Translations: [Unspecified acute conjunctivitis, right eye] Resolved: 09-16-2020 Episodic Inflammatory conditions of male genital organs (8 sources) Acute prostatitis; Translations: [Acute prostatitis] Onset: 06-13-2017 Episodic Other aftercare (2 sources) residential (current) use of insulin; Translations: [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 CURRENT USE OF INSULIN] Onset: 01-13-2022 Episodic Other and unspecified benign neoplasm (8 sources) History of polyp of colon; Translations: [Personal history of colonic polyps] Onset: 07-22-2013 Episodic Other connective tissue disease (8 sources) Muscle weakness; Translations: [Muscle weakness (generalized)] Onset: 02-07-2014 Episodic Other ear and sense organ disorders (8 sources) Impacted cerumen; Translations: [Impacted cerumen] Onset: 07-28-2018 Episodic Screening and history of mental health and substance abuse codes (8 sources) History of tobacco use; Translations: [Personal history of tobacco use, presenting hazards to health] Onset: 07-08-2016 Episodic Syncope (8 sources) Syncope and collapse; Translations: [Syncope and collapse] Onset: 06-13-2017 Episodic Unclassified (8 sources) Other and unspecified Escherichia coli [E. coli] infection in conditions classified elsewhere and of unspecified site; Translations: [Other and unspecified Escherichia coli [E. coli] infection in conditions classified elsewhere and of unspecified site] Onset: 02-06-2016 Unclassified (8 sources) Methicillin resistant Staphylococcus aureus; Translations: [Methicillin resistant Staphylococcus aureus] Onset: 06-13-2017 Unclassified (1 source) Onset: 05-13-2023 05-13-2023 Viral infection (8 sources) Viral disease; Translations: [Unspecified viral infection, in conditions classified elsewhere and of unspecified site] Onset: 02-07-2014 Episodic Results Test Name Value Interpretation Reference Range Facility [facility] 08-11-2023 CNOVS Visit (SP) Office ([facility]) RAFAT BELLA ([id number]) 1940 M Date Time Provider Department 08/11/23 1:00 PM ANIBAL HERMOSILLO During your visit today, we recorded the following information about you: Temperature Pulse Respiration Blood pressure 97.5 degrees 76/minute 16/minute 108/68 Weight 116.6 kg Anibal Hermosillo MD 08/11/2023 6:18 PM Signed NAME: Rafat Bella CLINIC NO.: [id number] DATE OF SERVICE: August 11, 2023 (Mihir) Some elements in this clinic note that are critical to medical decision making have been carefully reviewed and included from a prior clinic note dated: February 10, 2023 (Mihir) Referring Provider: Danilo Thakkar CC: Multiple myeloma ASSESSMENT: 83 year old gentleman with multiple myeloma currently being observed off treatment. Previous pulmonary embolus in 2015. He responded very nicely to treatment and was monitored for 2 years without evidence of disease before stopping subsequent therapy since March 2019. M-spike remains 0 Pulmonary embolus in January 2016. Predates his diagnosis of multiple myeloma by nearly a year. Multiple myeloma IgG kappa He has positive bony disease, likely slight renal insufficiency and mild anemia at diagnosis. M spike rapidly increasing 1.05 diagnosis, K light chains 110, lambda light chains 32 at diagnosis. Quantitative IgG was 1820. At diagnosis his skeletal survey showed multiple very small lytic lesions in his upper extremities and his calvarium, PET/CT was only positive in his one large humerus lesion. Currently M-spike is 0 and k/L stable. Bone prophylaxis Previously receieved zolendronic acid. PLAN: PET/CT whole body as soon as approved Triage to call results Repeat myeloma labs in 3 months RTC 1 week after to review labs MRI of the spine if desired - ____ HPI: CASE HISTORY: Reverse Chronological Order 08/04/2023 - M-protein: 0.41 multiple previous values of 0.00. 02/26/2023 - US Soft Tissue Head/Neck: Heterogeneous, avascular, suspicious appearing mass within left parotid gland region; not appreciably changed compared to 01/03/2023. 02/07/2023 - CT neck soft tissue: Along the posterior inferior aspect of the left parotid gland there is a heterogeneous enhancing rounded lesion with areas of hypoenhancement measuring approximately 2 x 2 by 1.7 cm in AP, TV and CC dimensions. Differential diagnosis include but not limited to primary parotid neoplasm such as pleomorphic adenoma, Warthin's tumor versus enlarged intraparotid lymph node. 2018 - Completed radiotherapy MRI thoracic spine - thecal sac indentation at T8 from a disc problem that does not seem to be related to myeloma. MRI cervical spine - solitary 8 mm lesion in the mid dens. 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 Following this he completed radiation to the right humerus lesion. Despite no lesions evident on PET/CT. Had compression fracture requiring kyphoplasty shortly after diagnosis. Updated Visit, August 11, 2023: Rafat returns with Cheli for a follow up. M-protein is up to 0.41 as of last week - ordered PET/CT. Uncertain whether or not this M-spike reflects a resurgence of his myeloma or not. He complains of bilateral flank pain, different from his chronic spinal pain. But in a similar area as his previous kyphoplasty. He has loose stools and some difficulty urinating, according to Cheli. He has prescribed oxycodone but he does not take often as it causes constipation - although this may be beneficial as he has been having diarrhea. Updated Visit, February 10, 2023: Rafat returns today for follow up accompanied by his Cheli, with concerns over a spot behind his left ear. He has had an US, a Bx, and at CT. US was negative, Bx was inconclusive. He had a 10-day course of antibiotics, but he does not feel there was any change. Saw Dr. Browning ENT for this. I feel he will need another biopsy in order to determine specific etiology and appropriate treatment. He also has been dealing with HTN recently. He very occasionally takes something for his back pain, but only if it gets severe. We discussed considering an MRI for his back, and suggested he continue taking the meds when he is experiencing pain. In terms of his myeloma, he is doing well and his myeloma labs were all satisfactory. Updated Visit, August 12, 2022: Doing well. No complaints (more content not included)... Normal [facility] B2 Microglob SerPl-mCncon Rtxg-8-Webieiamhir in [Mass/Vol] 4.3 ug/mL High <3.1 [facility] Comment on above: Order Comment: Speci men Type: BLOOD SPECIMEN Ordering Facility: [facility] Address: [address] [place] [address] [place] [address] Result Comment: Beta -2 Microglobulin test is performed using the [employer] immunoturbidimetric method. Results obtained with different methods or kits cannot be used interchangeably. Performed By: #### L [id number] #### [facility] CLIA [id number] [address] [place] [address] [place] CBC W Auto Differential pane l (Bld)on 08-04-2023 Basophils (Bld) [#/Vol] 0.03 10*3/uL Normal <0.11 [facility] Comment on above: Order Comment: Speci men Type: BLOOD SPECIMEN Ordering Facility: [facility] Address: [address] [place] [address] Performed By: #### L [id number] #### [facility] CLIA [id number] [address] [place] [address] [place] Basophils/100 WBC (Bld) 0.4 % Normal [facility] Comment on above: Order Comment: Speci men Type: BLOOD SPECIMEN Ordering Facility: [facility] Address: [address] [place] [address] Performed By: #### L [id number] #### [facility] CLIA [id number] [address] [place] [address] [place] Differential cell count method Nom (Bld) Auto Normal [facility] Comment on above: Order Comment: Speci men Type: BLOOD SPECIMEN Ordering Facility: [facility] Address: [address] [place] [address] Performed By: #### L [id number] #### [facility] CLIA [id number] [address] [place] [address] [place] Eosinophils (Bld) [#/Vol] 0.12 10*3/uL Normal <0.46 [facility] Comment on above: Order Comment: Speci men Type: BLOOD SPECIMEN Ordering Facility: [facility] Address: [address] [place] [address] Performed By: #### L [id number] #### [facility] CLIA [id number] [address] [place] [address] [place] Eosinophils/100 WBC (Bld) 1.6 % Normal [facility] Comment on above: Order Comment: Speci men Type: BLOOD SPECIMEN Ordering Facility: [facility] Address: [address] [place] [address] Performed By: #### L [id number] #### [facility] CLIA [id number] [address] [place] [address] [place] Erythrocyte distribution width (RBC) [Ratio] 12.8 % Normal 11.5-15.0 [facility] Comment on above: Order Comment: Speci men Type: BLOOD SPECIMEN Ordering Facility: [facility] Address: [address] [place] [address] Performed By: #### L [id number] #### [facility] CLIA [id number] [address] [place] [address] [place] Hematocrit (Bld) [Volume fraction] 40.9 % Normal 39.0-51.0 [facility] Comment on above: Order Comment: Speci men Type: BLOOD SPECIMEN Ordering Facility: [facility] Address: [address] [place] [address] Performed By: #### L [id number] #### [facility] CLIA [id number] [address] [place] [address] [place] Hemoglobin (Bld) [Mass/Vol] 13.5 g/dL Normal 13.0-17.0 [facility] Comment on above: Order Comment: Speci men Type: BLOOD SPECIMEN Ordering Facility: [facility] Address: [address] [place] [address] Performed By: #### L [id number] #### [facility] CLIA [id number] [address] [place] [address] [place] Immature granulocytes (Bld) [#/Vol] 10*3/uL Normal <0.10 [facility] Comment on above: Order Comment: Speci men Type: BLOOD SPECIMEN Ordering Facility: [facility] Address: [address] [place] [address] Performed By: #### L [id number] #### [facility] CLIA [id number] [address] [place] [address] [place] Immature granulocytes/100 WBC (Bld) 0.3 % Normal [facility] Comment on above: Order Comment: Speci men Type: BLOOD SPECIMEN Ordering Facility: [facility] Address: [address] [place] [address] Performed By: #### L [id number] #### [facility] CLIA [id number] [address] [place] [address] [place] Lymphocytes (Bld) [#/Vol] 1.81 10*3/uL Normal 1.00-4.00 [facility] Comment on above: Order Comment: Speci men Type: BLOOD SPECIMEN Ordering Facility: [facility] Address: [address] [place] [address] Performed By: #### L [id number] #### [facility] CLIA [id number] [address] [place] [address] [place] Lymphocytes/100 WBC (Bld) 23.4 % Normal [facility] Comment on above: Order Comment: Speci men Type: BLOOD SPECIMEN Ordering Facility: [facility] Address: [address] [place] [address] Performed By: #### L [id number] #### [facility] CLIA [id number] [address] [place] [address] [place] MCH (RBC) [Entitic mass] 30.4 pg Normal 26.0-34.0 [facility] Comment on above: Order Comment: Speci men Type: BLOOD SPECIMEN Ordering Facility: [facility] Address: [address] [place] [address] Performed By: #### L [id number] #### [facility] CLIA [id number] [address] [place] [address] [place] MCHC (RBC) [Mass/Vol] 33.0 g/dL Normal 30.5-36.0 [facility] Comment on above: Order Comment: Speci men Type: BLOOD SPECIMEN Ordering Facility: [facility] Address: [address] [place] [address] Performed By: #### L [id number] #### [facility] CLIA [id number] [address] [place] [address] [place] MCV (RBC) [Entitic vol] 92.1 fL Normal 80.0-100.0 [facility] Comment on above: Order Comment: Speci men Type: BLOOD SPECIMEN Ordering Facility: [facility] Address: [address] [place] [address] Performed By: #### L [id number] #### [facility] CLIA [id number] [address] [place] [address] [place] Monocytes (Bld) [#/Vol] 0.84 10*3/uL Normal <0.87 [facility] Comment on above: Order Comment: Speci men Type: BLOOD SPECIMEN Ordering Facility: [facility] Address: [address] [place] [address] Performed By: #### L [id number] #### [facility] CLIA [id number] [address] [place] [address] [place] Monocytes/100 WBC (Bld) 10.9 % Normal [facility] Comment on above: Order Comment: Speci men Type: BLOOD SPECIMEN Ordering Facility: [facility] Address: [address] [place] [address] Performed By: #### L [id number] #### [facility] CLIA [id number] [address] [place] [address] [place] Neutrophils (Bld) [#/Vol] 4.91 10*3/uL Normal 1.45-7.50 [facility] Comment on above: Order Comment: Speci men Type: BLOOD SPECIMEN Ordering Facility: [facility] Address: [address] [place] [address] Performed By: #### L [id number] #### [facility] CLIA [id number] [address] [place] [address] [place] Neutrophils/100 WBC (Bld) 63.4 % Normal [facility] Comment on above: Order Comment: Speci men Type: BLOOD SPECIMEN Ordering Facility: [facility] Address: [address] [place] [address] Performed By: #### L [id number] #### [facility] CLIA [id number] [address] [place] [address] [place] Nucleated RBC (Bld) [#/Vol] 10*3/uL Normal <0.01 [facility] Comment on above: Order Comment: Speci men Type: BLOOD SPECIMEN Ordering Facility: [facility] Address: [address] [place] [address] Performed By: #### L [id number] #### [facility] CLIA [id number] [address] [place] [address] [place] Nucleated RBC/100 WBC (Bld) [Ratio] 0.0 /100 WBC Normal [facility] Comment on above: Order Comment: Speci men Type: BLOOD SPECIMEN Ordering Facility: [facility] Address: [address] [place] [address] Performed By: #### L [id number] #### [facility] CLIA [id number] [address] [place] [address] [place] Platelet mean volume (Bld) [Entitic vol] 10.0 fL Normal 9.0-12.7 [facility] Comment on above: Order Comment: Speci men Type: BLOOD SPECIMEN Ordering Facility: [facility] Address: [address] [place] [address] Performed By: #### L [id number] #### [facility] CLIA [id number] [address] [place] [address] [place] Platelets (Bld) [#/Vol] 187 10*3/uL Normal 150-400 [facility] Comment on above: Order Comment: Speci men Type: BLOOD SPECIMEN Ordering Facility: [facility] Address: [address] [place] [address] Performed By: #### L [id number] #### [facility] CLIA [id number] [address] [place] [address] [place] RBC (Bld) [#/Vol] 4.44 10*6/uL Normal 4.20-6.00 [facility] Comment on above: Order Comment: Speci men Type: BLOOD SPECIMEN Ordering Facility: [facility] Address: [address] [place] [address] Performed By: #### L [id number] #### [facility] CLIA [id number] [address] [place] [address] [place] WBC (Bld) [#/Vol] 7.73 10*3/uL Normal 3.70-11.00 [facility] Comment on above: Order Comment: Speci men Type: BLOOD SPECIMEN Ordering Facility: [facility] Address: [address] [place] [address] Performed By: #### L [id number] #### [facility] CLIA [id number] [address] [place] [address] [place] Calcium.ionized [Moles/Vol]o n 08-04-2023 Calcium.ionized (Bld) [Mass/Vol] 1.24 mmol/L Normal 1.08-1.30 [facility] Comment on above: Order Comment: Speci men Type: BLOOD SPECIMEN Ordering Facility: [facility] Address: [address] [place] [address] Performed By: #### 1 995-0 #### [facility] CLIA [id number] [address] [place] [address] [place] Calcium.ionized adjusted to pH 7.4 (Bld) [Moles/Vol] 1.20 mmol/L Normal 1.08-1.30 [facility] Comment on above: Order Comment: Speci men Type: BLOOD SPECIMEN Ordering Facility: [facility] Address: [address] [place] [address] Performed By: #### 1 995-0 #### [facility] CLIA [id number] [address] [facility] [id number] [address] [place] Comprehensive metabolic 2000 panelon 08-04-2023 Albumin [Mass/Vol] 4.0 g/dL Normal 3.9-4.9 [facility] Comment on above: Order Comment: Speci men Type: BLOOD SPECIMEN Ordering Facility: [facility] Address: [address] [place] [address] Performed By: #### 2 4323-8, 2777-1, 3084-1, 2532-0 #### [facility] CLIA [id number] [address] [place] [address] ALP [Catalytic activity/Vol] 88 U/L Normal 38-113 [facility] Comment on above: Order Comment: Speci men Type: BLOOD SPECIMEN Ordering Facility: [facility] Address: [address] [place] [address] Performed By: #### 2 4323-8, 2777-1, 3084-1, 2532-0 #### [facility] CLIA [id number] [address] [place] [address] ALT [Catalytic activity/Vol] 25 U/L Normal 10-54 [facility] Comment on above: Order Comment: Speci men Type: BLOOD SPECIMEN Ordering Facility: [facility] Address: [address] [place] [address] Performed By: #### 2 4323-8, 2777-1, 3084-1, 2532-0 #### [facility] CLIA [id number] [address] [place] [address] Anion gap [Moles/Vol] 9 mmol/L Normal 9-18 [facility] Comment on above: Order Comment: Speci men Type: BLOOD SPECIMEN Ordering Facility: [facility] Address: [address] [place] [address] Performed By: #### 2 4323-8, 2777-1, 3084-1, 2532-0 #### [facility] CLIA [id number] [address] [place] [address] AST [Catalytic activity/Vol] 27 U/L Normal 14-40 [facility] Comment on above: Order Comment: Speci men Type: BLOOD SPECIMEN Ordering Facility: [facility] Address: [address] [place] [id number] Performed By: #### 2 4323-8, 2777-1, 3084-1, 2532-0 #### [facility] CLIA [id number] [address] [place] [address] Bilirubin [Mass/Vol] 0.3 mg/dL Normal 0.2-1.3 [facility] Comment on above: Order Comment: Speci men Type: BLOOD SPECIMEN Ordering Facility: [facility] Address: [address] [place] [address] Performed By: #### 2 4323-8, 2777-1, 3084-1, 2532-0 #### [facility] CLIA [id number] [address] [place] [address] Calcium [Mass/Vol] 9.3 mg/dL Normal 8.5-10.2 [facility] Comment on above: Order Comment: Speci men Type: BLOOD SPECIMEN Ordering Facility: [facility] Address: [address] [place] [address] Performed By: #### 2 4323-8, 2777-1, 3084-1, 2532-0 #### [facility] CLIA [id number] [address] [place] [address] Chloride [Moles/Vol] 104 mmol/L Normal 97-105 [facility] Comment on above: Order Comment: Speci men Type: BLOOD SPECIMEN Ordering Facility: [facility] Address: [address] [place] [address] Performed By: #### 2 4323-8, 2777-1, 3084-1, 2532-0 #### [facility] CLIA [id number] [address] [place] [address] CO2 [Moles/Vol] 23 mmol/L Normal 22-30 [facility] Comment on above: Order Comment: Speci men Type: BLOOD SPECIMEN Ordering Facility: [facility] Address: [address] [place] [address] Performed By: #### 2 4323-8, 2777-1, 3084-1, 2532-0 #### [facility] CLIA [id number] [address] [place] [address] Creatinine [Mass/Vol] 1.46 mg/dL High 0.73-1.22 [facility] Comment on above: Order Comment: Speci men Type: BLOOD SPECIMEN Ordering Facility: [facility] Address: [address] [place] [address] Performed By: #### 2 4323-8, 2777-1, 3083-, 2532-0 #### [facility] CLIA [id number] [address] [place] [address] Creatinine and Glomerular filtration rate.predicted panel (S/P/Bld) 48 mL/min/1.73m??? Low >=60 [facility] Comment on above: Order Comment: Speci men Type: BLOOD SPECIMEN Ordering Facility: [facility] Address: [address] [place] [address] Result Comment: Radha mated Glomerular Filtration Rate (eGFR) is calculated using the 2020 CKD-EPI creatinine equation. This equation utilizes serum creatinine, sex, and age as parameters. The creatinine assay has traceable calibration to isotope dilution-mass spectrometry. Refer to KDIGO guidelines for clinical interpretation. In patients with unstable renal function, e.g. those with acute kidney injury, the eGFR may not accurately reflect actual GFR. Performed By: #### 2 4323-8, 2777-1, 3084-1, 2532-0 #### [facility] CLIA [id number] [address] [place] [address] Glucose [Mass/Vol] 320 mg/dL High 74-99 [facility] Comment on above: Order Comment: Grisel molina Type: BLOOD SPECIMEN Ordering Facility: [facility] Address: [address] [place], [place] [address] Result Comment: The [place] [employer] (ADA) provides guidance for cutoff values for fasting glucose and random glucose. The ADA defines fasting as no caloric intake for at least 8 hours. Fasting plasma glucose results between 100 to 125 mg/dL indicate increased risk for diabetes (prediabetes). Fasting plasma glucose results greater than or equal to 126 mg/dL meet the criteria for diagnosis of diabetes. In the absence of unequivocal hyperglycemia, results should be confirmed by repeat testing. In a patient with classic symptoms of hyperglycemia or hyperglycemic crisis, random plasma glucose results greater than or equal to 200 mg/dL meet the criteria for diagnosis of diabetes. Reference: Standards of Medical Care in Diabetes 2016, [place] [employer]. Diabetes Care. 2016.39(Suppl 1). Performed By: #### 2 4323-8, 2777-1, 3084-1, 2532-0 #### [facility] CLIA [id number] [address] [place] [address] Potassium [Moles/Vol] 4.3 mmol/L Normal 3.7-5.1 [facility] Comment on above: Order Comment: Grisel molina Type: BLOOD SPECIMEN Ordering Facility: [facility] Address: [address] [place] [address] Performed By: #### 2 4323-8, 2777-1, 3084-1, 2532-0 #### [facility] CLIA [id number] [address] [place] [address] 52754 Protein [Mass/Vol] 7.2 g/dL Normal 6.3-8.0 [facility] Comment on above: Order Comment: Grisel molina Type: BLOOD SPECIMEN Ordering Facility: [facility] Address: [address] [place] [address] Performed By: #### 2 4323-8, 2777-1, 3084-1, 2532-0 #### [facility] CLIA [id number] [address] [place] [address] 56668 Sodium [Moles/Vol] 136 mmol/L Normal 136-144 [facility] Comment on above: Order Comment: Speci men Type: BLOOD SPECIMEN Ordering Facility: [facility] Address: [address] [place] [address] Performed By: #### 2 4323-8, 2777-1, 3084-1, 2532-0 #### [facility] CLIA [id number] [address] [place] [address] 00933 Urea nitrogen [Mass/Vol] 14 mg/dL Normal 9-24 [facility] Comment on above: Order Comment: Speci men Type: BLOOD SPECIMEN Ordering Facility: [facility] Address: [address] [place] [address] Performed By: #### 2 4323-8, 2777-1, 3084-1, 2532-0 #### [facility] CLIA [id number] [address] [place] [address] 99152 IMMUNOFIXATION SCREEN, SERUM on 08-04-2023 INTERPRETATION (MPA) Atypical restricted bands are present in the IgG and kappa regions. Consistent with IgG kappa monoclonal gammopathy. Normal [facility] Comment on above: Order Comment: Speci men Type: BLOOD SPECIMEN Ordering Facility: [facility] Address: [address] [place] [address] Performed By: #### L [id number] #### [facility] CLIA [id number] [address] [place] [address] [place] MPA RESULT M protein is present. Abnormal No M p rotein is identified. [facility] Comment on above: Order Comment: Speci men Type: BLOOD SPECIMEN Ordering Facility: [facility] Address: [address] [place] [address] Performed By: #### L [id number] #### [facility] CLIA [id number] [address] [place] [address] [facility] [place] STAFF REVIEW (MPA) Reviewed by Kira mojica MD Normal [facility] Comment on above: Order Comment: Speci men Type: BLOOD SPECIMEN Ordering Facility: [facility] Address: [address] [place] [id number] Performed By: #### L [id number] #### [facility] CLIA [id number] [address] [facility] [id number] [place], [place] [id number] [place] IMMUNOGLOBULINS,IGG,IGA,IGMo n 08-04-2023 IgA [Mass/Vol] 237 mg/dL Normal 70-400 [facility] Comment on above: Order Comment: Speci men Type: BLOOD SPECIMEN Ordering Facility: [facility] Address: [address] [place] [address] Performed By: #### 2 4323-8, 2777-1, 3084-1, 2532-0 #### [facility] CLIA [id number] [address] [place], [place] [address] IgG [Mass/Vol] 1238 mg/dL Normal 700-1600 [facility] Comment on above: Order Comment: Speci men Type: BLOOD SPECIMEN Ordering Facility: [facility] Address: [address] [place] [address] Performed By: #### 2 4323-8, 2777-1, 3084-1, 2532-0 #### [facility] CLIA [id number] [address] [place], [place] [address] IgM [Mass/Vol] 319 mg/dL High 40-230 [facility] Comment on above: Order Comment: Speci men Type: BLOOD SPECIMEN Ordering Facility: [facility] Address: [address] [place] [address] Performed By: #### 2 4323-8, 2777-1, 3084-1, 2532-0 #### [facility] CLIA [id number] [address] [place] [address] 29672 KAPPA/COTA,FREE,SERon 2023 Immunoglobulin light chains.kappa.free (S) [Mass/Vol] 102.8 mg/L High 3.3-19.4 [facility] Comment on above: Order Comment: Speci men Type: BLOOD SPECIMEN Ordering Facility: [facility] Address: [address] [place] [address] Result Comment: Rare ly, increased serum free light chains levels may not be detected or accurately quantified due to prozone phenomenon or in high viscosity samples using this immunoturbidimetric assay. Correlation with other laboratory results and clinical findings is recommended. The [place] Free Light Chain was performed using the Binding Site [employer] immunoturbidimetric method. Result obtained with different assay methods or kits cannot be used interchangeably. Performed By: #### K LFRS #### [facility] CLIA [id number] [address] [place] [address] [place] Immunoglobulin light chains.kappa/Immun oglobulin light chains.lambda (S) [Mass ratio] 2.18 High 0.26-1.65 [facility] Comment on above: Order Comment: Speci men Type: BLOOD SPECIMEN Ordering Facility: [facility] Address: [address] [place] [address] Performed By: #### K LFRS #### [facility] CLIA [id number] [address] [place] [address] [place] Immunoglobulin light chains.lambda.free [Mass/Vol] 47.2 mg/L High 5.7-26.3 [facility] Comment on above: Order Comment: Speci men Type: BLOOD SPECIMEN Ordering Facility: [facility] Address: [address] [place] [address] Result Comment: Rare ly, increased serum free light chains levels may not be detected or accurately quantified due to prozone phenomenon or in high viscosity samples using this immunoturbidimetric assay. Correlation with other laboratory results and clinical findings is recommended. The [place] Free Light Chain was performed using the Binding Site Optilite immunoturbidimetric method. Result obtained with different assay methods or kits cannot be used interchangeably. Performed By: #### K LFRS #### [facility] CLIA [id number] [address] [place] [address] [place] LDH SerPl-cCncon 08-04-2023 LDH [Catalytic activity/Vol] 159 U/L Normal 135-225 [facility] Comment on above: Order Comment: Speci men Type: BLOOD SPECIMEN Ordering Facility: [facility] Address: [place] [address] Performed By: #### 2 4323-8, 2777-1, 3084-1, 2532-0 #### [facility] CLIA [id number] [address] [place] [address] 15940 PROTEIN ELECTROPHORESIS SERU M (P)on 08-04-2023 Albumin [Mass/Vol] 3.58 g/dL Normal 3.43-5.41 [facility] Comment on above: Order Comment: Speci men Type: BLOOD SPECIMEN Ordering Facility: [facility] Address: [address] [place] [id number] Performed By: #### 2 4323-8, 2777-1, 3084-, 2532-0 #### [facility] CLIA [id number] [address] [place] [address] 90724 Alpha 1 globulin Elph [Mass/Vol] 0.26 g/dL Normal 0.18-0.43 [facility] Comment on above: Order Comment: Speci men Type: BLOOD SPECIMEN Ordering Facility: [facility] Address: [address] [place] [address] Performed By: #### 2 4323-8, 2777-1, 3084-1, 2532-0 #### [facility] CLIA [id number] [address] [place] [address] 93662 Alpha 2 globulin Elph [Mass/Vol] 0.67 g/dL Normal 0.42-0.98 [facility] Comment on above: Order Comment: Speci men Type: BLOOD SPECIMEN Ordering Facility: [facility] Address: [address] [place], [place] [address] Performed By: #### 2 4323-8, 2777-1, 3084-1, 2532-0 #### [facility] CLIA [id number] [address] [place] [address] 01735 Beta globulin Elph [Mass/Vol] 0.90 g/dL Normal 0.61-1.17 [facility] Comment on above: Order Comment: Speci men Type: BLOOD SPECIMEN Ordering Facility: [facility] Address: [address] [place] [address] Performed By: #### 2 4323-8, 2777-1, 3084-1, 2532-0 #### [facility] CLIA [id number] [address] [place] [address] 35200 Gamma globulin Elph [Mass/Vol] 1.20 g/dL Normal 0.53-1.51 [facility] Comment on above: Order Comment: Speci men Type: BLOOD SPECIMEN Ordering Facility: [facility] Address: [address] [place] [address] Performed By: #### 2 4323-8, 7-1, 3084-1, 2532-0 #### [facility] CLIA [id number] [address] [place] [address] 16839 INTERPRETATION COMMENT FOR PROTEIN ELECTROPHORESIS Normal [facility] Comment on above: Order Comment: Speci men Type: BLOOD SPECIMEN Ordering Facility: [facility] Address: [address] [place] [address] Result Comment: See separate immunofixation report for characterization of monoclonal gammopathy. M protein is present on the background of a polyclonal immunoglobulin population. Quantitation of the M protein may overestimate the amount of M protein present. Performed By: #### 2 4323-8, 2777-1, 3084-1, 2532-0 #### [facility] CLIA [id number] [address] [place] [address] 40183 M-PROTEIN LOCATION Gamma Fraction 1 Normal [facility] Comment on above: Order Comment: Speci men Type: BLOOD SPECIMEN Ordering Facility: [facility] Address: [address] [place] [address] Performed By: #### 2 4323-8, 7-1, 3084-1, 2532-0 #### [facility] CLIA [id number] [address] [place] [address] 23911 Protein Fractions [Interp] An M protein is identified on protein electrophoresis. Abnormal No definitive M protein is identified on protein electrophore sis. [facility] Comment on above: Order Comment: Speci men Type: BLOOD SPECIMEN Ordering Facility: [facility] Address: [address] [place] [address] Performed By: #### 2 4323-8, 2777-1, 3084-1, 2532-0 #### [facility] CLIA [id number] [address] [place] [address] 05451 Protein.monoclonal Elph [Mass/Vol] 0.41 g/dL High <=0.00 [facility] Comment on above: Order Comment: Speci men Type: BLOOD SPECIMEN Ordering Facility: [facility] Address: [address] [place] [address] Performed By: #### 2 4323-8, 2777-1, 3084-1, 2532-0 #### [facility] CLIA [id number] [address] [place] [address] 33931 SPE STAFF REVIEW Reviewed by Kira mojica MD [facility] Comment on above: Order Comment: Speci men Type: BLOOD SPECIMEN Ordering Facility: [facility] Address: [address] [place] [address] Performed By: #### 2 4323-8, 2777-1, 3084-1, 2532-0 #### [facility] CLIA [id number] [address] [place] [address] 15085 Phosphate SerPl-mCncon 08-03 Phosphate [Mass/Vol] 2.3 mg/dL Low 2.7-4.8 [facility] Comment on above: Order Comment: Speci men Type: BLOOD SPECIMEN Ordering Facility: [facility] Address: [address] [place] [address] Performed By: #### 2 4323-8, 2777-1, 3084-1, 2532-0 #### [facility] CLIA [id number] [address] [place] [address] 76727 Prot SerPl-mCncon 08-04-2023 Protein [Mass/Vol] 6.6 g/dL Normal 6.3-8.0 [facility] Comment on above: Order Comment: Speci men Type: BLOOD SPECIMEN Ordering Facility: [facility] Address: [address] [place] [id number] Performed By: #### L [id number] #### [facility] CLIA [id number] [address] [facility] [place] [address] [place] Urate SerPl-mCncon 4 Urate [Mass/Vol] 4.7 mg/dL Normal 4.0-8.1 [facility] Comment on above: Order Comment: Speci men Type: BLOOD SPECIMEN Ordering Facility: [facility] Address: [address] [place] [id number] Performed By: #### 2 4323-8, 2777-1, 3084-1, 2532-0 #### [facility] CLIA [id number] [address] [place] [address] 16312 CNOVSPon 02-10-2023 CNOVSP Visit (SP) Office (H EMASA) RAFAT BELLA ([id number]) 1940 M Date Time Provider Department 02/10/23 1:00 PM ANIBAL HERMOSILLO During your visit today, we recorded the following information about you: Temperature Pulse Respiration Blood pressure 97.3 degrees 67/minute 16/minute 172/75 Weight Height 117.6 kg 1.766 m Anibal Hermosillo MD 02/10/2023 7:28 PM Signed NAME: Rafat Bella [facility] NO[facility] [id number] DATE OF SERVICE: February 10, 2023 (Mihir) Some elements in this clinic note that are critical to medical decision making have been carefully reviewed and included from a prior clinic note dated: August 12, 2022 (hyankar) Referring Provider: Danilo Thakkar CC: Multiple myeloma ASSESSMENT: 83 year old gentleman with multiple myeloma currently being observed off treatment. Previous pulmonary embolus in 2015. He responded very nicely to treatment and was monitored for 2 years without evidence of disease before stopping subsequent therapy since March 2019. M-spike remains 0 Pulmonary embolus in January 2016. Predates his diagnosis of multiple myeloma by nearly a year. Multiple myeloma IgG kappa He has positive bony disease, likely slight renal insufficiency and mild anemia at diagnosis. M spike rapidly increasing 1.05 diagnosis, K light chains 110, lambda light chains 32 at diagnosis. Quantitative IgG was 1820. At diagnosis his skeletal survey showed multiple very small lytic lesions in his upper extremities and his calvarium, PET/CT was only positive in his one large humerus lesion. Currently M-spike is 0 and k/L stable. Bone prophylaxis Previously receieved zolendronic acid. PLAN: Repeat myeloma labs in 6 months RTC 1 week after to review labs MRI of the spine if desired - ____ HPI: Case History: 02/07/2023 - CT neck soft tissue: Along the posterior inferior aspect of the left parotid gland there is a heterogeneous enhancing rounded lesion with areas of hypoenhancement measuring approximately 2 x 2 by 1.7 cm in AP, TV and CC dimensions. Differential diagnosis include but not limited to primary parotid neoplasm such as pleomorphic adenoma, Warthin's tumor versus enlarged intraparotid lymph node. 2018 - Completed radiotherapy MRI thoracic spine - thecal sac indentation at T8 from a disc problem that does not seem to be related to myeloma. MRI cervical spine - solitary 8 mm lesion in the mid dens. 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 Following this he completed radiation to the right humerus lesion. Despite no lesions evident on PET/CT. Had compression fracture requiring kyphoplasty shortly after diagnosis. Updated Visit, February 10, 2023: Rafat returns today for follow up accompanied by his Cheli, with concerns over a spot behind his left ear. He has had an US, a Bx, and at CT. US was negative, Bx was inconclusive. He had a 10-day course of antibiotics, but he does not feel there was any change. Saw Dr. Browning ENT for this. I feel he will need another biopsy in order to determine specific etiology and appropriate treatment. He also has been dealing with HTN recently. He very occasionally takes something for his back pain, but only if it gets severe. We discussed considering an MRI for his back, and suggested he continue taking the meds when he is experiencing pain. In terms of his myeloma, he is doing well and his myeloma labs were all satisfactory. Updated Visit, August 12, 2022: Doing well. No complaints but is fatigued. Cheli is with as usual. Reviewed labs. No evidence of progressive disease. Updated Visit, February 11, 2022: Telephone only for 5 minutes Called Ryanne as requested. Reviewed labs from 02/07/2022. 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 He has no complaints. 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 Still off treatment and still has no evidence of disease. Overall is doing well. M spike remain undetectable and all other labs are stable. Cheli is with him. Updated Visit, December 18, 2020: Telephone only for 5 minutes Doing very wel - was on the call too. Labs reviewed and remain stable with no evidence of M-spike. Updated Visit, May 31, 2020: 80 yo gentleman with multiple myeloma that is without significant evidence (more content not included)... Normal [facility] B2 Microglob SerPl-mCncon Ihde-0-Wuccwoshihj in [Mass/Vol] 3.9 ug/mL High <3.1 [facility] Comment on above: Order Comment: Speci men Type: BLOOD SPECIMEN Ordering Facility: [facility] Address: [address] [place] [address] Result Comment: Beta -2 Microglobulin test is performed using the [employer] immunoturbidimetric method. Results obtained with different methods or kits cannot be used interchangeably. Performed By: #### 2 4323-8, 2777-1, 3084-1, 2532-0 #### [facility] CLIA [id number] [address] [place] [address] 43529 CBC W Auto Differential pane l (Bld)on 02-03-2023 Basophils (Bld) [#/Vol] 0.03 10*3/uL Normal <0.11 [facility] Comment on above: Order Comment: Speci men Type: BLOOD SPECIMEN Ordering Facility: [facility] Address: [address] [place] [address] Performed By: #### 5 7021-8 #### [facility] CLIA [id number] [address] [place] [address] 54123 Basophils/100 WBC (Bld) 0.5 % Normal [facility] Comment on above: Order Comment: Speci men Type: BLOOD SPECIMEN Ordering Facility: [facility] Address: [address] [place] [address] Performed By: #### 5 7021-8 #### [facility] CLIA [id number] [address] [place] [address] 77483 Differential cell count method Nom (Bld) Auto Normal [facility] Comment on above: Order Comment: Speci men Type: BLOOD SPECIMEN Ordering Facility: [facility] Address: [address] [place] [address] Performed By: #### 5 7021-8 #### [facility] CLIA [id number] [address] [place] [address] 39849 Eosinophils (Bld) [#/Vol] 0.12 10*3/uL Normal <0.46 [facility] Comment on above: Order Comment: Speci men Type: BLOOD SPECIMEN Ordering Facility: [facility] Address: [address] [place] [address] Performed By: #### 5 7021-8 #### [facility] CLIA [id number] [address] [place] [address] Eosinophils/100 WBC (Bld) 1.9 % Normal [facility] Comment on above: Order Comment: Speci men Type: BLOOD SPECIMEN Ordering Facility: [facility] Address: [address] [place] [address] Performed By: #### 5 7021-8 #### [facility] CLIA [id number] [address] [place] [address] 75478 Erythrocyte distribution width (RBC) [Ratio] 12.9 % Normal 11.5-15.0 [facility] Comment on above: Order Comment: Speci men Type: BLOOD SPECIMEN Ordering Facility: [facility] Address: [address] [place] [address] Performed By: #### 5 7021-8 #### [facility] CLIA [id number] [address] [place] [address] 50661 Hematocrit (Bld) [Volume fraction] 39.5 % Normal 39.0-51.0 [facility] Comment on above: Order Comment: Speci men Type: BLOOD SPECIMEN Ordering Facility: [facility] Address: [address] [place] [address] Performed By: #### 5 7021-8 #### [facility] CLIA [id number] [address] [place] [address] 91253 Hemoglobin (Bld) [Mass/Vol] 13.3 g/dL Normal 13.0-17.0 [facility] Comment on above: Order Comment: Speci men Type: BLOOD SPECIMEN Ordering Facility: [facility] Address: [address] [place] [address] Performed By: #### 5 7021-8 #### [facility] CLIA [id number] [address] [place] [address] Immature granulocytes (Bld) [#/Vol] 10*3/uL Normal <0.10 [facility] Comment on above: Order Comment: Speci men Type: BLOOD SPECIMEN Ordering Facility: [facility] Address: [address] [place] [address] Performed By: #### 5 7021-8 #### [facility] CLIA [id number] [address] [place] [address] 55266 Immature granulocytes/100 WBC (Bld) 0.3 % Normal [facility] Comment on above: Order Comment: Speci men Type: BLOOD SPECIMEN Ordering Facility: [facility] Address: [address] [place] [address] Performed By: #### 5 7021-8 #### [facility] CLIA [id number] [address] [place] [address] 82226 Lymphocytes (Bld) [#/Vol] 1.56 10*3/uL Normal 1.00-4.00 [facility] Comment on above: Order Comment: Speci men Type: BLOOD SPECIMEN Ordering Facility: [facility] Address: [address] [place] [address] Performed By: #### 5 7021-8 #### [facility] CLIA [id number] [address] [place] [address] 74047 Lymphocytes/100 WBC (Bld) 24.1 % Normal [facility] Comment on above: Order Comment: Speci men Type: BLOOD SPECIMEN Ordering Facility: [facility] Address: [address] [place] [address] Performed By: #### 5 7021-8 #### [facility] CLIA [id number] [address] [place] [address] 40523 MCH (RBC) [Entitic mass] 30.6 pg Normal 26.0-34.0 [facility] Comment on above: Order Comment: Speci men Type: BLOOD SPECIMEN Ordering Facility: [facility] Address: [address] [place] [address] Performed By: #### 5 7021-8 #### [facility] CLIA [id number] [address] [place] [address] MCHC (RBC) [Mass/Vol] 33.7 g/dL Normal 30.5-36.0 [facility] Comment on above: Order Comment: Speci men Type: BLOOD SPECIMEN Ordering Facility: [facility] Address: [address] [place] [address] Performed By: #### 5 7021-8 #### [facility] CLIA [id number] [address] [place] [address] 96687 MCV (RBC) [Entitic vol] 91.0 fL Normal 80.0-100.0 [facility] Comment on above: Order Comment: Speci men Type: BLOOD SPECIMEN Ordering Facility: [facility] Address: [address] [place] [address] Performed By: #### 5 7021-8 #### [facility] CLIA [id number] [address] [place] [address] 41423 Monocytes (Bld) [#/Vol] 0.58 10*3/uL Normal <0.87 [facility] Comment on above: Order Comment: Speci men Type: BLOOD SPECIMEN Ordering Facility: [facility] Address: [address] [place] [address] Performed By: #### 5 7021-8 #### [facility] CLIA [id number] [address] [place] [address] 86923 Monocytes/100 WBC (Bld) 9.0 % Normal [facility] Comment on above: Order Comment: Speci men Type: BLOOD SPECIMEN Ordering Facility: [facility] Address: [address] [place] [address] Performed By: #### 5 7021-8 #### [facility] CLIA [id number] [address] [place] [address] 92562 Neutrophils (Bld) [#/Vol] 4.17 10*3/uL Normal 1.45-7.50 [facility] Comment on above: Order Comment: Speci men Type: BLOOD SPECIMEN Ordering Facility: [facility] Address: [address] [place] [address] Performed By: #### 5 7021-8 #### [facility] CLIA [id number] [address] [place] [address] 25466 Neutrophils/100 WBC (Bld) 64.2 % Normal [facility] Comment on above: Order Comment: Speci men Type: BLOOD SPECIMEN Ordering Facility: [facility] Address: [address] [place] [address] Performed By: #### 5 7021-8 #### [facility] CLIA [id number] [address] [place] [address] 16838 Nucleated RBC (Bld) [#/Vol] 10*3/uL Normal <0.01 [facility] Comment on above: Order Comment: Speci men Type: BLOOD SPECIMEN Ordering Facility: [facility] Address: [address] [place] [address] Performed By: #### 5 7021-8 #### [facility] CLIA [id number] [address] [place] [address] 13898 Nucleated RBC/100 WBC (Bld) [Ratio] 0.0 /100 WBC Normal [facility] Comment on above: Order Comment: Speci men Type: BLOOD SPECIMEN Ordering Facility: [facility] Address: [address] [place] [address] Performed By: #### 5 7021-8 #### [facility] CLIA [id number] [address] [place] [address] 55487 Platelet mean volume (Bld) [Entitic vol] 10.0 fL Normal 9.0-12.7 [facility] Comment on above: Order Comment: Speci men Type: BLOOD SPECIMEN Ordering Facility: [facility] Address: [address] [place] [address] Performed By: #### 5 7021-8 #### [facility] CLIA [id number] [address] [place] [address] 26013 Platelets (Bld) [#/Vol] 199 10*3/uL Normal 150-400 [facility] Comment on above: Order Comment: Speci men Type: BLOOD SPECIMEN Ordering Facility: [facility] Address: [address] [place] [address] Performed By: #### 5 7021-8 #### [facility] CLIA [id number] [address] [place] [address] 23266 RBC (Bld) [#/Vol] 4.34 10*6/uL Normal 4.20-6.00 [facility] Comment on above: Order Comment: Speci men Type: BLOOD SPECIMEN Ordering Facility: [facility] Address: [address] [place] [address] Performed By: #### 5 7021-8 #### [facility] CLIA [id number] [address] [place] [address] 58918 WBC (Bld) [#/Vol] 6.48 10*3/uL Normal 3.70-11.00 [facility] Comment on above: Order Comment: Speci men Type: BLOOD SPECIMEN Ordering Facility: [facility] Address: [address] [place] [address] Performed By: #### 5 7021-8 #### [facility] CLIA [id number] [address] [place] [address] 08624 Calcium.ionized [Moles/Vol]o n 02-03-2023 Calcium.ionized (Bld) [Mass/Vol] 1.25 mmol/L Normal 1.08-1.30 [facility] Comment on above: Order Comment: Speci men Type: BLOOD SPECIMEN Ordering Facility: [facility] Address: [address] [place] [address] Performed By: #### 1 995-0 #### [facility] CLIA [id number] [address] [facility] [id number] [place] [address] [place] Calcium.ionized adjusted to pH 7.4 (Bld) [Moles/Vol] 1.22 mmol/L Normal 1.08-1.30 [facility] Comment on above: Order Comment: Speci men Type: BLOOD SPECIMEN Ordering Facility: [facility] Address: [address] [place] [id number] Performed By: #### 1 995-0 #### [facility] CLIA [id number] [address] [facility] [place] [address] [facility] Comprehensive metabolic 2000 panelon 02-03-2023 Albumin [Mass/Vol] 3.9 g/dL Normal 3.9-4.9 [facility] Comment on above: Order Comment: Speci men Type: BLOOD SPECIMEN Ordering Facility: [facility] Address: [address] [place] [address] Performed By: #### 2 4323-8, 2777-1, 3084-1, 2532-0 #### [facility] CLIA [id number] [address] [place] [address] 10128 ALP [Catalytic activity/Vol] 83 U/L Normal 38-113 [facility] Comment on above: Order Comment: Speci men Type: BLOOD SPECIMEN Ordering Facility: [facility] Address: [address] [place] [address] Performed By: #### 2 4323-8, 2777-1, 3084-1, 2532-0 #### [facility] CLIA [id number] [address] [place] [address] 98947 ALT [Catalytic activity/Vol] 23 U/L Normal 10-54 [facility] Comment on above: Order Comment: Speci men Type: BLOOD SPECIMEN Ordering Facility: [facility] Address: [address] [place] [address] Performed By: #### 2 4323-8, 2777-1, 3084-1, 2532-0 #### [facility] CLIA [id number] [address] [place] [address] 23551 Anion gap [Moles/Vol] 11 mmol/L Normal 9-18 [facility] Comment on above: Order Comment: Speci men Type: BLOOD SPECIMEN Ordering Facility: [facility] Address: [address] [place] [address] Performed By: #### 2 4323-8, 2777-1, 3084-1, 2532-0 #### [facility] CLIA [id number] [address] [place] [address] AST [Catalytic activity/Vol] 28 U/L Normal 14-40 [facility] Comment on above: Order Comment: Speci men Type: BLOOD SPECIMEN Ordering Facility: [facility] Address: [address] [place] [address] Performed By: #### 2 4323-8, 277-1, 3083-, 2532-0 #### [facility] CLIA [id number] [address] [place] [address] 92005 Bilirubin [Mass/Vol] 0.5 mg/dL Normal 0.2-1.3 [facility] Comment on above: Order Comment: Speci men Type: BLOOD SPECIMEN Ordering Facility: [facility] Address: [address] [place] [address] Performed By: #### 2 4323-8, 277-1, 3083-, 2532-0 #### [facility] CLIA [id number] [address] [place] [address] 46372 Calcium [Mass/Vol] 9.2 mg/dL Normal 8.5-10.2 [facility] Comment on above: Order Comment: Speci men Type: BLOOD SPECIMEN Ordering Facility: [facility] Address: [address] [place] [address] Performed By: #### 2 4323-8, 277-1, 3083-, 2532-0 #### [facility] CLIA [id number] [address] [place] [address] 95632 Chloride [Moles/Vol] 106 mmol/L High 97-105 [facility] Comment on above: Order Comment: Speci men Type: BLOOD SPECIMEN Ordering Facility: [facility] Address: [address] [place] [address] Performed By: #### 2 4323-8, 2777-1, 3084-1, 2532-0 #### [facility] CLIA [id number] [address] [place] [address] CO2 [Moles/Vol] 20 mmol/L Low 22-30 [facility] Comment on above: Order Comment: Speci men Type: BLOOD SPECIMEN Ordering Facility: [facility] Address: [address] [place] [address] Performed By: #### 2 4323-8, 2777-1, 3084-1, 2532-0 #### [facility] CLIA [id number] [address] [place] [address] 68320 Creatinine [Mass/Vol] 1.23 mg/dL High 0.73-1.22 [facility] Comment on above: Order Comment: Speci men Type: BLOOD SPECIMEN Ordering Facility: [facility] Address: [address] [place] [address] Performed By: #### 2 4323-8, 2777-1, 3084-1, 2532-0 #### [facility] CLIA [id number] [address] [place], [place] [address] Creatinine and Glomerular filtration rate.predicted panel (S/P/Bld) 59 mL/min/1.73m??? Low >=60 [facility] Comment on above: Order Comment: Speci jesse Type: BLOOD SPECIMEN Ordering Facility: [facility] Address: [address] [place] [address] Result Comment: Radha mated Glomerular Filtration Rate (eGFR) is calculated using the 2020 CKD-EPI creatinine equation. This equation utilizes serum creatinine, sex, and age as parameters. The creatinine assay has traceable calibration to isotope dilution-mass spectrometry. Refer to KDIGO guidelines for clinical interpretation. In patients with unstable renal function, e.g. those with acute kidney injury, the eGFR may not accurately reflect actual GFR. Performed By: #### 2 4323-8, 2777-1, 3084-1, 2532-0 #### [facility] CLIA [id number] [address] [place] [address] 24618 Glucose [Mass/Vol] 189 mg/dL High 74-99 [facility] Comment on above: Order Comment: Speci men Type: BLOOD SPECIMEN Ordering Facility: [facility] Address: [address] [place] [id number] Result Comment: The [place] Diabetes Association (ADA) provides guidance for cutoff values for fasting glucose and random glucose. The ADA defines fasting as no caloric intake for at least 8 hours. Fasting plasma glucose results between 100 to 125 mg/dL indicate increased risk for diabetes (prediabetes). Fasting plasma glucose results greater than or equal to 126 mg/dL meet the criteria for diagnosis of diabetes. In the absence of unequivocal hyperglycemia, results should be confirmed by repeat testing. In a patient with classic symptoms of hyperglycemia or hyperglycemic crisis, random plasma glucose results greater than or equal to 200 mg/dL meet the criteria for diagnosis of diabetes. Reference: Standards of Medical Care in Diabetes 2016, [place] Diabetes Association. Diabetes Care. 2016.39(Suppl 1). Performed By: #### 2 4323-8, 2777-1, 3084-1, 2532-0 #### [facility] CLIA [id number] [address] [place] [address] 11464 Potassium [Moles/Vol] 3.9 mmol/L Normal 3.7-5.1 [facility] Comment on above: Order Comment: Speci men Type: BLOOD SPECIMEN Ordering Facility: [facility] Address: [address] [place] [address] Performed By: #### 2 4323-8, 2777-1, 3084-1, 2532-0 #### [facility] CLIA [id number] [address] [place] [address] 29969 Protein [Mass/Vol] 7.0 g/dL Normal 6.3-8.0 [facility] Comment on above: Order Comment: Speci men Type: BLOOD SPECIMEN Ordering Facility: [facility] Address: [address] [place] [address] Performed By: #### 2 4323-8, 2777-1, 3084-1, 2532-0 #### [facility] CLIA [id number] [address] [place] [address] 98203 Sodium [Moles/Vol] 137 mmol/L Normal 136-144 [facility] Comment on above: Order Comment: Speci men Type: BLOOD SPECIMEN Ordering Facility: [facility] Address: [address] [place] [address] Performed By: #### 2 4323-8, 2777-1, 3084-1, 2532-0 #### [facility] CLIA [id number] [address] [place] [address] 57497 Urea nitrogen [Mass/Vol] 16 mg/dL Normal 9-24 [facility] Comment on above: Order Comment: Pastori men Type: BLOOD SPECIMEN Ordering Facility: [facility] Address: [address] [place] [address] Performed By: #### 2 4323-8, 2777-1, 3084-1, 2532-0 #### [facility] CLIA [id number] [address] [place] [address] 24208 HbA1c (Bld)on 02-03-2023 Average glucose Estimated from glycated hemoglobin (Bld) [Mass/Vol] 180 mg/dL Normal [facility] Comment on above: Order Comment: [facility] Type: BLOOD SPECIMEN Ordering Facility: [facility] Address: [address] [place] [address] Result Comment: eAG: (Estimated average glucose) is a calculated value from HgbA1c and is inside sales account representative of the average blood glucose level in the last 2-3 month period. Performed By: #### 2 4323-8, 2777-1, 3084-1, 2532-0 #### [facility] CLIA [id number] [address] [place] [address] 44157 HbA1c (Bld) [Mass fraction] 7.9 % High 4.3-5.6 [facility] Comment on above: [facility]: BLOOD [facility]EN Ordering Facility: [facility] Address: [address] [place] [address] Result Comment: Amer [place] Diabetes Association guidelines indicate that patients with HgbA1c in the range 5.7-6.4% are at increased risk for development of diabetes, and intervention by lifestyle modification may be beneficial. HgbA1c greater or equal to 6.5% is considered diagnostic of diabetes. Performed By: #### 2 4323-8, 2777-1, 3084-1, 2532-0 #### [facility] CLIA [id number] [address] [place] [address] IMMUNOFIXATION SCREEN, SERUM on 02-03-2023 INTERPRETATION (MPA) Poorly defined region of restricted mobility in IgG and kappa lanes. Pattern is less well defined or fainter than typically seen in monoclonal gammopathy. This could represent either an atypical presentation of polyclonal immunoglobulins or the presence of a low level IgG kappa monoclonal gammopathy. Normal [facility] Comment on above: Order Comment: Speci jesse Type: BLOOD SPECIMEN Ordering Facility: [facility] Address: [address] [place] [address] Performed By: #### L [id number] #### [facility] CLIA [id number] [address] [place] [address] [place] MPA RESULT A poorly defined reg ion of restricted mobility is present that may represent an M protein. Abnormal No M protein is identified. [facility] Comment on above: Order Comment: Specpriya molina Type: BLOOD SPECIMEN Ordering Facility: [facility] Address: [address] [place] [address] Performed By: #### L [id number] #### [facility] CLIA [id number] [address] [place] [address] [place] STAFF REVIEW (MPA) Reviewed by Kira mojica MD Normal [facility] Comment on above: Order Comment: Pastori jesse Type: BLOOD SPECIMEN Ordering Facility: [facility] Address: [address] [place] [address] Performed By: #### L [id number] #### [facility] CLIA [id number] [facility] [place] [address] [place] IMMUNOGLOBULINS GAMon 2022 IgA [Mass/Vol] 237 mg/dL Normal 70-400 [facility] Comment on above: Order Comment: Pastori jesse Type: BLOOD SPECIMEN Ordering Facility: [facility] Address: [address] [place] [address] Performed By: #### L [id number] #### [facility] CLIA [id number] [address] [place] [address] [place] IgG [Mass/Vol] 1279 mg/dL Normal 700-1600 [facility] Comment on above: Order Comment: Speci men Type: BLOOD SPECIMEN Ordering Facility: [facility] Address: [address] [place] [address] Performed By: #### L [id number] #### [facility] CLIA [id number] [address] [place] [address] [place] IgM [Mass/Vol] 296 mg/dL High 40-230 [facility] Comment on above: Order Comment: Speci men Type: BLOOD SPECIMEN Ordering Facility: [facility] Address: [address] [place] [address] Performed By: #### L [id number] #### [facility] CLIA [id number] [address] [place] [address] [place] KAPPA/COTA,FREE,SERon 2022 Immunoglobulin light chains.kappa.free (S) [Mass/Vol] 83.1 mg/L High 3.3-19.4 [facility] Comment on above: Order Comment: Speci men Type: BLOOD SPECIMEN Ordering Facility: [facility] Address: [address] [place] [address] Result Comment: Rare ly, increased serum free light chains levels may not be detected or accurately quantified due to prozone phenomenon or in high viscosity samples using this immunoturbidimetric assay. Correlation with other laboratory results and clinical findings is recommended. The [place] Free Light Chain was performed using the Binding Site Optilite immunoturbidimetric method. Result obtained with different assay methods or kits cannot be used interchangeably. Performed By: #### K LFRS #### [facility] CLIA [id number] [facility] [place] [address] [place] Immunoglobulin light chains.kappa/Immun oglobulin light chains.lambda (S) [Mass ratio] 2.10 High 0.26-1.65 [facility] Comment on above: Order Comment: Speci men Type: BLOOD SPECIMEN Ordering Facility: [facility] Address: [address] [place] [address] Performed By: #### K LFRS #### [facility] CLIA [id number] [address] [place] [address] [place] Immunoglobulin light chains.lambda.free [Mass/Vol] 39.6 mg/L High 5.7-26.3 [facility] Comment on above: Order Comment: Speci men Type: BLOOD SPECIMEN Ordering Facility: [facility] Address: [address] [place] [address] Result Comment: Rare ly, increased serum free light chains levels may not be detected or accurately quantified due to prozone phenomenon or in high viscosity samples using this immunoturbidimetric assay. Correlation with other laboratory results and clinical findings is recommended. The [place] Free Light Chain was performed using the Binding Site Optilite immunoturbidimetric method. Result obtained with different assay methods or kits cannot be used interchangeably. Performed By: #### K LFRS #### [facility] CLIA [id number] [address] [place] [address] [place] LDH SerPl-cCncon 02-03-2023 LDH [Catalytic activity/Vol] 153 U/L Normal 135-225 [facility] Comment on above: Order Comment: Speci men Type: BLOOD SPECIMEN Ordering Facility: [facility] Address: [address] [place] [address] Performed By: #### 2 4323-8, 2777-1, 3084-1, 2532-0 #### [facility] CLIA [id number] [address] [place] [address] 28586 PROTEIN ELECTROPHORESIS SERU M (P)on 02-03-2023 Albumin [Mass/Vol] 3.64 g/dL Normal 3.43-5.41 [facility] Comment on above: Order Comment: Speci men Type: BLOOD SPECIMEN Ordering Facility: [facility] Address: [address] [place], [place] [address] Performed By: #### L [id number] #### [facility] CLIA [id number] [address] [place] [address] [place] Alpha 1 globulin Elph [Mass/Vol] 0.26 g/dL Normal 0.18-0.43 [facility] Comment on above: Order Comment: Speci men Type: BLOOD SPECIMEN Ordering Facility: [facility] Address: [address] [place] [address] Performed By: #### L [id number] #### [facility] CLIA [id number] [address] [place] [address] [place] Alpha 2 globulin Elph [Mass/Vol] 0.69 g/dL Normal 0.42-0.98 [facility] Comment on above: Order Comment: Speci men Type: BLOOD SPECIMEN Ordering Facility: [facility] Address: [address] [place] [address] Performed By: #### L [id number] #### [facility] CLIA [id number] [address] [place] [address] [place] Beta globulin Elph [Mass/Vol] 0.80 g/dL Normal 0.61-1.17 [facility] Comment on above: Order Comment: Speci men Type: BLOOD SPECIMEN Ordering Facility: [facility] Address: [address] [place] [address] Performed By: #### L [id number] #### [facility] CLIA [id number] [address] [place] [address] [place] Gamma globulin Elph [Mass/Vol] 1.22 g/dL Normal 0.53-1.51 [facility] Comment on above: Order Comment: Speci men Type: BLOOD SPECIMEN Ordering Facility: [facility] Address: [address] [place] [address] Performed By: #### L [id number] #### [facility] CLIA [id number] [address] [place] [address] [place] INTERPRETATION COMMENT FOR PROTEIN ELECTROPHORESIS The atypical region is relatively poorly defined and may represent an unusual presentation of polyclonal immunoglobulins, but cannot rule out the presence of a low level M protein. If clinically indicated, monoclonal protein analysis and serum free light chain analysis are suggested to evaluate further for monoclonal gammopathy. Normal [facility] Comment on above: Order Comment: Speci jesse Type: BLOOD SPECIMEN Ordering Facility: [facility] Address: [address] [place] [address] Performed By: #### L [id number] #### [facility] CLIA [id number] [facility] [place] [address] [place] M-PROTEIN LOCATION Normal [facility] Comment on above: Order Comment: Grisel molina Type: BLOOD SPECIMEN Ordering Facility: [facility] Address: [address] [place] [address] Result Comment: Not Applicable. Performed By: #### L [id number] #### [facility] CLIA [id number] [address] [place] [address] [place] Protein Fractions [Interp] An atypical region of restricted mobility is identified on protein electrophoresis. Abnormal No definitive M protein is identified on protein electrophore sis. [facility] Comment on above: Order Comment: Grisel molina Type: BLOOD SPECIMEN Ordering Facility: [facility] Address: [address] [place] [address] Performed By: #### L [id number] #### [facility] CLIA [id number] [address] [place] [address] [place] Protein.monoclonal Elph [Mass/Vol] 0.00 g/dL Normal <=0.00 [facility] Comment on above: Order Comment: Grisel molina Type: BLOOD SPECIMEN Ordering Facility: [facility] Address: [address] [place] [address] Performed By: #### L [id number] #### [facility] CLIA [id number] [facility] [place] [address] [place] SPE STAFF REVIEW Reviewed by Kira mojica MD [facility] Comment on above: Order Comment: Speci men Type: BLOOD SPECIMEN Ordering Facility: [facility] Address: [address] [place] [id number] Performed By: #### L [id number] #### [facility] CLIA [id number] [address] [facility] [place] [address] [place] Phosphate SerPl-mCncon 02-03 Phosphate [Mass/Vol] 3.0 mg/dL Normal 2.7-4.8 [facility] Comment on above: Order Comment: Speci men Type: BLOOD SPECIMEN Ordering Facility: [facility] Address: [place] [address] Performed By: #### 2 4323-8, 2777-1, 3084-1, 2532-0 #### [facility] CLIA [id number] [address] [place] [address]14[address] Prot SerPl-mCncon 02-03-2023 Protein [Mass/Vol] 6.6 g/dL Normal 6.3-8.0 [facility] Comment on above: Order Comment: Speci men Type: BLOOD SPECIMEN Ordering Facility: [facility] Address: [address] [place] [id number] Performed By: #### 2 4323-8, 2777-1, 3084-1, 2532-0 #### [facility] CLIA [id number] [address] [place] [address]8920 Urate SerPl-mCncon 3 Urate [Mass/Vol] 4.5 mg/dL Normal 4.0-8.1 [facility] Comment on above: Order Comment: Speci men Type: BLOOD SPECIMEN Ordering Facility: [facility] Address: [address] [place] [id number] Performed By: #### 2 4323-8, 2777-1, 3084-1, 2532-0 #### [facility] CLIA [id number] [address] [place] [address] 71931 GLYCOHEMOGLOBIN A1Con 2022 ADA RECOMMENDATION SEE BELOW Normal [facility] [place] Comment on above: Result Comment: ADA RECOMMENDED LIMIT 4.0 - 6.0 ADA THERAPEUTIC TARGET < 7.0 ACTION SUGGESTED > 7.0 Performed By: #### A 1C #### [facility] [address] [place] [address] [address] Sandy Koch Glucose [Mass/Vol] 169 mg/dL Normal [facility] [place] Comment on above: Performed By: #### A 1C #### [facility] [address] [place] [address] Dr. Sandy Koch HbA1c (Bld) [Mass fraction] 7.5 % Critically high 4.5-6.2 [facility] [place] Comment on above: Performed By: #### A 1C #### [facility] [address] [place] [address] Dr. Sandy Koch GLYCOHEMOGLOBIN A1Con 2021 ADA RECOMMENDATION SEE BELOW Normal [facility] [place] Comment on above: Result Comment: ADA RECOMMENDED LIMIT 4.0 - 6.0 ADA THERAPEUTIC TARGET < 7.0 ACTION SUGGESTED > 7.0 Performed By: #### A 1C #### [facility] [address] [place] [address] Dr. Sadny Koch Glucose [Mass/Vol] 163 mg/dL Normal [facility] [place] Comment on above: Performed By: #### A 1C #### [facility] [address] [place] [address] Dr. Sandy Koch HbA1c (Bld) [Mass fraction] 7.3 % Critically high 4.5-6.2 [facility] [place] Comment on above: Performed By: #### A 1C #### [facility] [address] [place] [address] Dr. Sandy Koch GLYCOHEMOGLOBIN A1Con 2021 ADA RECOMMENDATION SEE BELOW Normal [facility] [place] Comment on above: Result Comment: ADA RECOMMENDED LIMIT 4.0 - 6.0 ADA THERAPEUTIC TARGET < 7.0 ACTION SUGGESTED > 7.0 Performed By: #### A 1C #### [facility] [address] [place] [address] Dr. Sandy Koch Glucose [Mass/Vol] 160 mg/dL Normal [facility] [place] Comment on above: Performed By: #### A 1C #### [facility] [address] [place] [address] [address] Sandy Koch HbA1c (Bld) [Mass fraction] 7.2 % Critically high 4.5-6.2 [facility] [place] Comment on above: Performed By: #### A 1C #### [facility] [address] [place] [address] [address] Sandy Koch Coding Summaryon 09-25-2020 Coding Summary HTMLBase 64 [id number] PymexHNyPN64DDz9QPN2cDmuUCxw gF8haBOuE4y6LpGdFE24sW77VLll JPZuGgA5WfSnmmqqlJJj Z8gsWrRumDHoZpb+PHRhYmxlIHdp GEMxUZksYZImUgTqbQxzIN3uXg0i ZGVyLWNvbGxhcHNlOiBj d3rmCEAtTFjqQN3dyVaqC5PxiJJ2 WASwc5n7Mt96sGA+VEIwNSR6aWqz CKyya128NvTei6tqPBU4 zPWoVIenIKA4N11nm5U0RVIxEASt AYA8hVA0eT6ccOrtqqokC9ZzoHFb KuM0OHD8uIOhrS2iwVhd zslfxG2wKxg+H38UQK0VMIZNQA7B Ldx6V4HqIurkhBI+WB55LOGhWM25 oRNmaHJtx9phlKz5HrSs ANNcGQH1hSeuHNjcg5OqXLEhT40s pXVid8V3ZRGnvOcmhXRjBsDsbOY8 rF9cHNhwginya0xkoyni Mgwpc3pojp95oZ63H96oXUluWSKk YBH4EGBbLTCjqVroja2hmS7iEn5+ LShsl8cxz4jiaMn9AnSv WSJlelTxhUtyHON7i1HnRn53S0Wk mOunx2OmClr6ka00pMLyc6W0hMK5 JCgoXSZfwR7qCGbyAuK4 LWUnCmWpdO45cDJwLGafIm5bcVzh hOcxNU0pFXUqtduzBGNagZ7lGCJt cBPgcXdvSP9oLEBehytk q433BoSzBQQ1TGDrlHQmB3XinI0f GzYpCWIlBKUhM6PumFBmJOtiQ812 HFefDyU8JNZgzaFoB7El OQFyqSkpHvU8b6S7Bu5Kj1Yqkyye ZBW5ZUpfXZF7VvL0QfZbJsS7I7Ab Xfx6FJZscZnpYK0iI6Xa LOGwrbzndvtncYP1VHIsUIAotD68 oULjAWgeIk0lv5N2d436DHMhEHEc vS89Wd7pfQbsXHYsbPNS fN1ljmoeu4qqsvazUnWySARwLTh2 DVj8JJKchGunDaBxLXW7SjR1ENK4 wWMwpP9vgBucpmsgwJ9f Oyc+M23grO1hCYG7TGQ2yfueAPDq qrAyVM36PG32P8HrXlzrjXModEW+ JULweiBrrAmrEL4rMvKv v0plc2QdFRboK9SpLQYrYXndIih6 LQUuZNL0aWZ7tL7zVEYnOUflu9K6 eVW5B0KmkbWmuz9cg6gs XHJkAAhvW78grOLat9P1TQYurMV8 GNAwuUifYgVjxH48Dvz+PGNvbGdy n8KcYself8ziz5ehiBk4 VuUkYVLqcqNjpVcuARZ7w3OzFp27 F92zNOqlJQXyJHVnMWHkMMLalIou oy8ssC5uVf9+PGNvbCB3 gQU2gQ9aXFZrYoP7EJkyN742SmSq yLLhHpnvs9lbs3qbbKx4HxBtEIWh lzYjcHjlFXV1q0LdWa64 W98pYWnaKFMeEJKhWOUxLIExcGpy en6agF0rWe5+OH1qf6gexr17xD11 dHI+BQIvBHB3yFddTDjk TUMekI9cEVseVaB7IVGtDlZtvA09 qPJzPUltIe7xyNefnJzeIR2pCNKe bnpfr530QuFhc1khEHIy hRJmDQkcBBQ5I79ta7A3UDXpWQKh AMJ7zGV7dX0qbUmffxkokQBotYlw nyJgoBwoJQhqDSvsD862 IHRvcDsnPlBhdGllbnQgTmFtZTo8 W3JeRlv7MJBgcVivKY5abKChSCeq Gx8muNoglJehFB7vDTRf ztjgd104CeNhg1fbKRPocFLqABrd WIY1T57yj4U9CSSnWRHvPXM7xRD4 xK0yiUuymtjebAFqeUmm roHoyRktMCvzLHfjN515XHUihVbq SjRyjcSlZZShvOR5LD08XH60sJWv q5X7iBO8T0HiUJTglxrx celnsWW8TRSoBTAyrE70Wv4dqOap Oq5xYDBcXMG5OBAgoHReN3EaoF5d OfQmCJQfRUIeR0RjdEUt PSfrB033WItbAjV8WMAvoyFxC7Hy OVWclBbyWnE9m5R1Lr3SM9P1MG24 QO46bJYhf0W5fUA7O1Jj SXQkhdbodmbghDR8UOUmKIExwF63 Cz8cmHqxAu0kEZFwDEY7CVYirESs V0MzxU7gFyTeGPOmJVEu R5UgmGCdAYarM823HWvgPqL3KZEl oeGhM1PfZOHvnSuoRkA3q2C1Wv5U VIa4FL47HW87yLCja8S4 hBA7O8SsIJLymtqzjtcinDK3CWGd IKCjsS88Wk4xtHrkNg8aMPQjYTV0 GPGolZMwW8LyrD8nUuKo ZOBjFJVgJ5NxnQQnQKsgN907FZih MoJ0FYKbsqQiZ2CpTAEmkUjiXlC2 w0P0Ap2QQHOcTC55YSK0 gEC9UM64AQ83N1JwSbavjVInrBM+ PHRhYmxlIHdpZHRoPScxMDAlJyBz cPdmOE4rQi4zZLCxLZHq zRxwdPZwPvNys7qjHJAsDPjfRK9h rLneR4ViuBH8PZYnv2j7Px16C89l B1GgbDL+XJGuiHD9oOJ1 qZ1oWmLtWfA2GHcaK943NmGtzMPc Eyreg4vwq6hvaPa2XkM8MARvpsLm oUbtWGX5d9HgJv43B84r ZHxuDYNiCWGvJANbGAVifKxssu6h yR5rLo9+AECbyJU8aFV7cW7lScQi RmI6KEdjL553DvThtBEw Vgvxh6ypn5tfrVt1VmBvZBUnmmXd hGdqZLJ3k3RuSt46N1PxdQwnk5Tz Kac2ug16qWJej9A1dQY4 N2UqWSZmudgegKSqvUtfLQ7nDTGv xrxoUBTkbQ6jDGTpZ5f7JeHwPmR0 GPnhJ9YkszB9CAUwwFEw HRoqTDX7M98ee0S6ODQbDOEfAPG5 mTJ9sW1bsUhtfzqolLXuxHzxhjTh iCowZQtvBOdeB925YEEc hVuyQXInmR2sPWTgiYTozQshGV9j QRQeibrcMz7KPD8QCoocD8VUDNUW CS58IR11yYFnb2G5sCC6 K1ZqSOBcjmyhlymrjBS4VZRbTTXh eO81hHXvNPrrVq2gy3Z7k485STHd EHJgxE94Kz5ddGkxMBRy tTIWxO2mlmdiw3nndyhpOuDmDQRq DSk8JPk0NYPtbHjqSfRbEFY7PhN2 PDT6yMGuhZ0bqVfbazjz dX8oYvy+UNSdJXwgBMo1IFvodPZ+ UGNcWHP2wNtrWOogAASdgH8zAGPp X5j6LkYwWaN6SZwuL9Zc QBSqererMj41bE9mLkQeIjB2PXua B9RxgsN2VYHxkBItRMjqIJR7D31l b7T4NFKiTKYlTER2eIW2 gK0naNyeqrxrtOMclYsawvAxbKmb ABcvJRovU926QNAfcNelLfx5SJvr MZOsOQ81YO65oSGfg0H7 iLY6X0AfDOLwgamymtltxYI1SFUs FIFsyP66aNNvBTriCs5fb0F7b877 AGFjOUNbwR75Wm1weXba VOYhmRLWcP8ysilak2zuqtjuRfQv KCLzZTn5RCx3TZFbfNagZmUrMRT4 SyY1LZS1jTPweI9vxFgn dsvweB6pZai+TUFMRTwvdGQ+PHRk UTC3xPemELojVUNlvC2pNFKzH6v8 XvGzXcS2RMpoP5CbVHMt mbwzMh07dM4qIaHiMfB0QPxcI2Oc ksQ8QKNveJZaOJbdHZU8Q38gu6I8 YXLhLKAeVDE0kPQ5tD1g bGlnbjogbGVmdDsgdmVydGljYWwt DSufE487YOXhiNtkIwHlnZQIrTSp DNP6QS11IN62T2ZrIdgk dGFibGU+PHRhYmxlIHdpZHRoPScx GOWlTsZzlColXD6cAe2xGYZqXLAb yMfplPLzZyXgc0lyRHVl NEhoJU1xzPwaJ3RziRE3VWNhp5x2 El93X67fB7OocVE+RBPvnAM5xPK4 aY1dKeQpBqS7RKxsE535 JmAizLZhBwzlt2sjg9flgKz6QaKh HQDxnhDwlCchUHE5n0AaGp53J47i IHdpZHRoPSIyMCUiIHZh hRrafm5vrW6bEn4+OPFegCY8aIN8 vO4pLbSsHdE3HSkaA225WiYjrKMz XyuoB05mT7ZebKD+PHRy Xlp1DIFpqYafQA3uwUCsUEeoRq9j XPQ6JwMrFkGpGUqbI7SdOCJictmx nxaclDF5VRYkIFHjyI67 Go5ihGlfTn8rKNBbRFN5KCClgYOq V6BalE7mCuAdKNTdRGBpQ6FekHKb CFrtR612DWifEyT8IKXj nyUqG8YxKHWwgOtzKnH8p8T6Sx5H vDuimHTyRO3mVxWeHPf2S5YwDlo0 UJTdgUjtLQ5eaYCsRDcv Uw6wwGkgqUjlPO7oBHKpcsmmm042 QvJxz6xcBJIrqALlUJczJIQ4T47k v1B4YWKhBEZhOIL7uDR2 yA8rtFpbadavoEFisDtgwdEseJyh UFedLKacM822WCJbyLmxShIWNjo8 C7PtGnp3ICKybWldOC8m nCDzHUuwZj9dcCzulJhzYB6tXAVk yleoz694IxIpd1evNYKvzGMcRNvm GND5E35lv2K8USHqXYQe DWE6vTU8pJ4mzVobleuvuRCzuUut pyPwhGcrNCngDPppV354FDXdhNvi Gq7XXmq3V6MhTzi2YUZk sCzaHZ1xfMGlFNvxWg5vfKhblRxo CJ6dSDVrspjaw959JeOmu3paZMXs eJIoPJabDWW7P98wn3N4 DKKuLFEjATF9tLZ2aS4xzZayqmej dQYbwXekqnJfoEreUExbCNwnK183 IHRvcDsnPlBheWVyOjwv dGQ+LK54lb23J6ZjRevuDbx0JOUq SIY8qEP0dA6rYPGnUNlde7N9fWS7 C9BxdkMnwl9sl5exAZDz ZTo (more content not included)... [facility] Consent Formson 09-21-2020 Consent Forms [id number] [facility] Inpatient Patient Summaryon 09-20-2020 [place] [address] Patient Discharge Instructions Name: RAFAT BELLA : 1940 Patient Address: [address] [place] [address] Primary Care Provider: Name: Danilo Thakkar After you are discharged if you find you have any questions, please, call [phone] ext [phone] to speak to a nurse. Discharge Diagnosis: Carpal tunnel syndrome on right Prescription Information: If you have been given a prescription for narcotics, seek immediate medical attention if you have any difficulty breathing or any sudden status changes such as confusion and sleepiness. If you or anyone you know is experiencing suicidal thoughts, mental health, alcohol and/or drug addiction problems; contact the [facility] 14/10 Crisis Hotline -Text 4HOPE eu 241104. If you received any narcotics, sedation, or any other medication that causes drowsiness for the next 24 hours, unless otherwise directed: ? Do not drive a car. ? Do not operate machinery such as power tools, lawn mowers, drills, sewing machines, or stoves ? Avoid alcoholic beverages and drugs for allergies, nerves, or sleep ? Do not make important personal or business decisions or sign any legal documents [facility] would like to thank you for allowing us to assist you with your healthcare needs. The following includes patient education materials and information regarding your injury/illness. RAFAT BELLA has been given the following list of follow-up instructions, prescriptions, and patient education materials: Follow-up Instructions With: Address: When: Carlo Richards [address] [place] [address], [address] [place] [address] Business (1) 09/28/2020 10:00 AM Medications During the course of your visit, your medication list was updated with the most current information. The details of those changes are reflected below: Medications to Continue That Have Not Changed Other Medications acetaminophen-codeine (Tylenol with Codeine #3 oral tablet) 1 tab(s) Oral Every 6 hours as needed for pain. atorvastatin (atorvastatin 20 mg oral tablet) 1 tab(s) Oral every day. escitalopram (escitalopram 10 mg oral tablet) 1 tab(s) Oral every day. gabapentin (gabapentin 300 mg oral capsule) 1 cap(s) Oral 3 times a day. glimepiride (glimepiride 2 mg oral tablet) 1 tab(s) Oral every day. hydrochlorothiazide-losartan (hydrochlorothiazide-losarta n 12.5 mg-100 mg oral tablet) 1 tab(s) Oral every day. insulin glargine (Lantus Solostar Pen 100 units/mL subcutaneous solution) 50 unit(s) Subcutaneous once a day (at bedtime). linagliptin (Tradjenta 5 mg oral tablet) 1 tab(s) Oral every day. oxyCODONE (oxyCODONE 5 mg oral tablet) 2 tab(s) Oral Every 6 hours as needed for pain. tamsulosin (tamsulosin 0.4 mg oral capsule) 1 cap(s) Oral every day. warfarin (warfarin 5 mg oral tablet) 1 tab(s) Oral Friday, Friday and Friday. warfarin (warfarin 5 mg oral tablet) 0.5 tab(s) Oral Friday, Friday, , and Friday. It is important to always keep an active list of medications available so that you can share with other providers and manage your medications appropriately. As an additional courtesy, we are also providing you with your final active medications list that you can keep with you. acetaminophen-codeine (Tylenol with Codeine #3 oral tablet) 1 tab(s) Oral Every 6 hours as needed for pain., Home script Dr. Richards 09/20/2020 atorvastatin (atorvastatin 20 mg oral tablet) 1 tab(s) Oral every day. escitalopram (escitalopram 10 mg oral tablet) 1 tab(s) Oral every day. gabapentin (gabapentin 300 mg oral capsule) 1 cap(s) Oral 3 times a day. glimepiride (glimepiride 2 mg oral tablet) 1 tab(s) Oral every day. hydrochlorothiazide-losartan (hydrochlorothiazide-losarta n 12.5 mg-100 mg oral tablet) 1 tab(s) Oral every day. insulin glargine (Lantus Solostar Pen 100 units/mL subcutaneous solution) 50 unit(s) Subcutaneous once a day (at bedtime). linagliptin (Tradjenta 5 mg oral tablet) 1 tab(s) Oral every day. oxyCODONE (oxyCODONE 5 mg oral tablet) 2 tab(s) Oral Every 6 hours as needed for pain. tamsulosin (tamsulosin 0.4 mg oral capsule) 1 cap(s) Oral every day. warfarin (warfarin 5 mg oral tablet) 1 tab(s) Oral Friday, Friday and Friday. warfarin (warfarin 5 mg oral tablet) 0.5 tab(s) Oral Friday, Friday, , and Friday. Take only the medications listed above. Contact your doctor prior to taking any medications not on this list. Diet & Activity Patient Activity Level: Patient Diet: Regular Patient Activity Restrictions: Comment: Patient education materials, if any, will display below DR. WILD POST OPERATIVE CARPEL TUNNEL INSTRUCTIONS SURGEONS WRITTEN INSTRUTCTIONS: -Keep your hand elevated above your elbow for the first 24 hours after surgery -Wiggle your fingers frequently while awake (more content not included)... Normal [facility] MAGR Intraoperative Recordon 09-20-2020 MAGR Intraoperative Record MAGR Intra-Op Record Summary Primary Physician: Carlo Richards DO Finalized Date/Time: 09/20/20 13:39:22 Pt. Name: RAFAT BELLA Anthony/Sex: 1940 MALE Med Rec #: [id number] Physician: Carlo Richards DO Financial #: [id number] Pt. Type: D Room/Bed: / Admit/Disch: 09/20/20 10:33:00 - Institution: Case Times MAGR Entry 1 Patient In Room Time 09/20/20 12:20:00 Out Room Time 09/20/20 13:13:00 Anesthesia Start Time 09/20/20 12:34:00 Stop Time 09/20/20 13:11:00 Surgery Start Time 09/20/20 12:36:00 Stop Time 09/20/20 13:11:00 Last Modified By: Ellen Garay RN 09/20/20 13:37:34 Case Attendance MAGR Entry 1 Entry 2 Entry 3 Case Attendee Carlo Richards Stephanie RN Adkins, Brittany E CSFA Andrew DO Role Performed Surgeon - Primary Batch Plant Supervisor Scrub Personnel Time In 09/20/20 12:20:00 09/20/20 12:20:00 09/20/20 12:20:00 Time Out 09/20/20 13:13:00 09/20/20 13:13:00 09/20/20 13:13:00 Procedure Carpal Tunnel Carpal Tunnel Carpal Tunnel Release(Right) Release(Right) Release(Right) Last Modified By: Ellen Garay RN, Stephanie RN Sauer, Stephanie RN 09/20/20 13:37:38 09/20/20 13:37:38 09/20/20 13:37:38 Surgical Procedures MAGR Pre-Care Text: A.20 Verifies operative procedure, surgical site, and laterality Im.150 Develops individualized plan of care Entry 1 Procedure Carpal Tunnel Release Primary Procedure Yes Primary Surgeon Carlo Richards DO Surgeon Comment RIGHT CARPAL TUNNEL Start 09/20/20 12:36:00 RELEASE Stop 09/20/20 13:11:00 Anesthesia Type Local Surgical Service Orthopedics Wound Class Clean Technique Details Closure Technique Primary Entire procedure No was performed via laparoscope or robotic assistance Last Modified By: Ellen Garay RN 09/20/20 13:37:43 Post-Care Text: O.730 The patient's care is consistent with the individualized perioperative plan of care General Case Data MAGR Pre-Care Text: A.350.1 Classifies surgical wound Entry 1 Case Information OR MAGR OR 05 Case Level Level 2 Wound Class Clean Specialty Orthopedics ASA Class N/A Diagnosis Preop Diagnosis CARPAL TUNNEL SYNDROME Postop Same As Preop Yes Postop Diagnosis CARPAL TUNNEL SYNDROME Blunt or No Is the procedure No penetrating injury considered occured prior to Emergent/Urgent? the start of the procedure: Last Modified By: Ellen Garay RN 09/20/20 12:55:38 Post-Care Text: O.760 Patient receives consistent and comparable care regardless of the setting Time Out MAGR Entry 1 Time out date/time 09/20/20 12:33:00 All team members Yes have introduced themselves by name and role Surgeon, Yes Surgeon reviews Yes anesthesia, nurse critical or confirm patient, unexpected steps, site, procedure operative duration, anticipated blood loss Anesthesia team No Nursing team Yes reviews any reviews sterility patient-specific (including concerns indicator results) and equipment issues/concerns Antibiotic Antibiotic N/A prophylaxis given within the last 60 minutes Is essential N/A imaging displayed? Last Modified By: Ellen Garay RN 09/20/20 13:01:40 Patient Positioning MAGR Pre-Care Text: A.280 Identifies baseline musculoskeletal status Im.40 Positions the patient Im.80 Applies safety devices Entry 1 Procedure Carpal Tunnel Body Position Supine Release(Right) Left Arm Position Extended on padded arm Right Arm Position Extended on Hand Table board Left Leg Position Extended Right Leg Position Extended Feet Uncrossed? Yes Press Points Checked Yes Positioning Device Arm Boards, Arm Strap, Outcome Met (O.80) Yes Pillow, Safety Strap Last Modified By: Ellen Garay RN 09/20/20 13:01:57 Post-Care Text: E.290 Evaluates musculoskeletal status O.80 Patient is free from signs and symptoms of injury related to positioning Skin Prep MAGR Pre-Care Text: A.30 Verifies allergies Im.270 Performs skin preparation Im.270.1 Implements protective measures to prevent skin and tissue injury due to chemical sources Entry 1 Skin Prep Syntegrity Prep Agents (Im.270) Povidone-Iodine Prep By Ellen Garay RN Prep Area (Im.270) Elbow and forearm, Prep Area Details Right Hand, Wrist Skin Prep Agent Dry Yes Without Pooling Hair Removal Syntegrity Hair Removal Methods No hair removal performed Outcome Met (O.100) Yes Last Modified By: Ellen Garay RN 09/20/20 13:02:38 Post-Care Text: E.10 Evaluates for signs and symptoms of physical injury to skin and tissue O.100 Patient is free from signs and symptoms of chemical injury Counts Verification MAGR Pre-Care Text: A.20 Verifies operative procedure, surgical site, and laterality A.20.2 Assesses the risk for unintended retained foreign body Im.20 Performs required counts Entry 1 Procedure Carpal Tunnel Release(Right) Counts Verification Initia (more content not included)... [facility] Preoperative Record MAGR Pre-Op Record Summary Primary Physician: Carlo Richards DO Finalized Date/Time: 09/20/20 13:52:57 Pt. Name: JENARAFAT/Sex: 1940 MALE Med Rec #: [id number] Physician: Carlo Richards DO Financial #: [id number] Pt. Type: D Room/Bed: / Admit/Disch: 09/20/20 10:33:00 - Institution: Pre-Op Case Times MAGR Pre-Care Text: Patient will be optimally prepared for surgery. Patient is free from s/s of injury. Provide information to patient/family related to plan of care. Verify patient allergies. Confirm identity and verify consent before the operative or invasive procedure. Entry 1 Patient Arrival Time 09/20/20 10:45:00 Preop Departure 09/20/20 12:18:00 Last Modified By: Sherrie Merino RN 09/20/20 13:52:54 Post-Care Text: Patient is prepared mentally and physically and is ready for surgery. The patient remains free from s/s of injury. Patient/family express understanding of plan of care and participate in decisions affecting his or her perioperrative plan of care. Allergies documented appropriately. Patient identifiers and consent correct. General Comments: Denies chest pain, shortness of breath or illnessess. Denies pacemaker/defib. Denies sleep apnea. Finalized By: Sherrie Merino RN Document Signatures Signed By: Sherrie Merino RN 09/20/20 13:52 Normal [facility] Operative Report - Surgeon/P pamela 09-20-2020 Operative Report - Surgeon/Physician Preoperative diagnosis: Carpal tunnel syndrome right Postoperative diagnosis: Carpal tunnel syndrome right Procedure: Revision of carpal tunnel surgery with release of median nerve at the wrist on the right Surgeon: Marlyn Richards D.O. 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 He had had a previous carpal tunnel release but did not get relief. In the interval period of time he began to have increasing pain in the median distribution. We discussed options surgical nonsurgical he elected to have the carpal tunnel surgery revised. Estimated blood loss: Scant Complications: There were no complications Findings: Marked fibrosis and scarring of the median nerve Procedure summary: Patient was brought to the operative suite the right arm was prepped and draped in usual fashion a timeout was taken. I infiltrated the incision site with a total of 9 cc of 1% lidocaine with epinephrine. The arm was exsanguinated and tourniquet inflated to 250 mmHg. Patient had a pre-existing scar that curved in an ulnar direction at the crease. I used a portion of the scar distally but then I extended my incision straight up midline around the palmaris longus. I started with a small incision but then extended it proximally. I dissected down past the palmaris longus and carefully dissected through some scar tissue and I found the median nerve. The nerve was adherent to the surrounding tissues both distally and proximally slow tedious dissection I freed up the nerve distally and then I traced it up into the forearm where it was severely scarred. I gradually freed up the scar tissue until I got into the distal volar forearm at which point the nerve was free. The nerve was scarred in a 360 degree fashion and I carefully worked around into the volar surface and dorsal surface of the nerve freeing it up performing perineural lysis. I then irrigated thoroughly and let the tourniquet down and verified hemostasis and then closed the skin with nylon suture. Sterile dressings were applied [Electronically Signed on: 09/20/2020 13:49 EDT] Carlo Richards DO [Verified on: 09/20/2020 13:49 EDT] Carlo Richards DO [facility] POCT Glucose Levelon 021 Glucose [Mass/Vol] 210 mg/dL High 74-118 [facility] Comment on above: Performed By: #### 4 [id number] #### [facility] (DEFAULT) [address] [place] [address] Patient Handouton 09-20-[address] WILD POST OPERATIVE CARPEL TUNNEL INSTRUCTIONS SURGEONS WRITTEN INSTRUTCTIONS: -Keep your hand elevated above your elbow for the first 24 hours after surgery -Wiggle your fingers frequently while awake -DO NOT lift heavy objects or programs assistant forcefully with your hand -Change your dressing in 1 day and apply an adalberto bandage as directed with the thumb tucked towards the palm of your hand. This keeps the tension off your incision -You may shower in 1 day but do not submerge your hand under water. Put a 4x4 gauze and the adalberto bandage back on after you shower -If you have any problems or concerns, please call the office at [phone] -Follow up as scheduled [facility] Progress Note - Nurseon 08-23 Progress Note - Nurse Dr. Richards's office called- informed Zakiya of needing patient's consent for surgery and if that patient is on coumadin and had labwork done yesterday at the [facility] -if we could get copies of those fax'd to us- Zakiya stated she would send. [Electronically Signed on: 09/19/2020 13:09 EDT] Sherrie Merino RN [Verified on: 09/19/2020 13:09 EDT] Sherrie Merino RN [facility] Coding Summary.on 04-29-2017 Coding Summary. CODING DATE: [facility] STATUS: Home (Routine DC) PAYOR: Medicare APC DESCRIPTION 5523 Level 3 Imaging without Contrast ADMIT DX: REASON FOR VISIT DX: C90.00 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 FINAL DX: PRINCIPAL: C90.00 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 SECONDARY: Z13.89 Encounter for screening for other disorder PYMT PROC APC STAT DESCRIPTION DOCTOR NAME DATE NOTE: The code number assigned matches the documented diagnosis and / or procedure in the patient's chart. However, the narrative phrase printed from the coding software may appear abbreviated, or result in slightly different terminology. Coded By: Shawna Cantu Date Saved: 04/29/2017 12:57 pm [facility] Coding Summary.on 04-25-2017 Coding Summary. CODING DATE: [facility] STATUS: Home (Routine DC) PAYOR: Medicare APC DESCRIPTION 8008 MRI and MRA with Contrast Composite ADMIT DX: REASON FOR VISIT DX: C90.00 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 FINAL DX: PRINCIPAL: C90.00 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 SECONDARY: Z13.89 Encounter for screening for other disorder PYMT PROC APC STAT DESCRIPTION DOCTOR NAME DATE NOTE: The code number assigned matches the documented diagnosis and / or procedure in the patient's chart. However, the narrative phrase printed from the coding software may appear abbreviated, or result in slightly different terminology. Coded By: Shawna Cantu Date Saved: 04/25/2017 07:32 am [facility] MRI Spine Thoracic w/ + w/o Contraston 04-25-2017 MRI Spine Thoracic w/ + w/o Contrast Exam Date/Time:04/24/2017 18:22 ESTReason for Exam:C90.00 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ReportIMPRESSION: MINIMAL DEGENERATIVE CHANGE WITH SMALL FOCAL DISC HERNIATION AT T8-T9. NOMYELOMATOUS LESIONS DEMONSTRATED.EXAM: MRI thoracic spineREASON FOR EXAM: Acute severe posterior thoracic spine pain.TECHNIQUE: Multiplanar multisequence MRI scans of the thoracic spine. 20 cc ofMultiHance contrast administered intravenously.FINDINGS:Bones : There is a focal fatty area of marrow change and an adjacent sclerotic areainvolving the T8 vertebral body consistent with benign changes. Otherwise marrowsignal throughout the thoracic spine is within normal limits. No signs of myelomatouschange.Disc space: At T8-T9 there is a left paramedian disc protrusion indenting the thecalsac and encroaching on the subjacent thoracic cord along its left anterior margin.There is thoracic cord contact without displacement or significant compression.Otherwise there is disc space narrowing at multiple thoracic intervertebral levelsconsistent with mild degenerative change. No spinal canal stenosis.Spinal cord: The thoracic cord is normal in configuration and signal intensity. Soft tissues: There is no paraspinal soft tissue mass or fluid collection. FINAL REPORT Dictated: 04/25/2017 12:18 pm Shawn Abbott MD Signed (Electronic Signature): 04/25/2017 5:58 pm Signed by: Shawn Abbott MD Transcribed by: melissa Technologist: LINETTE,Technical CommentsMultiHanceContrast amount in ml's: [address] [facility] Creatinineon 04-24-2017 Creatinine 1.6 mg/dL High 0.5-1.3 [facility] Comment on above: Performed By: #### 2 [id number] ####[facility] [address] [place] [address] eGFRon 04-24-2017 eGFR (black) 51 mL/min/1.73 m2 Low >=59 [facility] miguel [facility] Comment on above: Order Comment: Order added by Discern Expert. Result Comment: eGFR is race adjusted. AA=. Performed By: #### 2 [id number], [id number] ####[facility] [address] [place] [address] eGFR (non-black) 42 mL/min/1.73 m2 Low >=59 F [facility] Comment on above: Order Comment: Order added by Discern Expert. Result Comment: [employer] fabio kidney disease could be indicated at eGFR's of less than 60 mL/min/1.73m2. Kidney failure is indicated at less than 15 mL/min/1.73m2. Performed By: #### 2 [id number], [id number] ####[facility] [id number] [place] [address] Vital Signs Date Time Vital Sign Value Performing Clinician Facility 08-11-2023 13:01-0400 Body mass index (BMI) [Ratio] 37.39 kg/m2 Anibal Hermosillo MD Work Phone: [facility] 08-11-2023 13:01-0400 Body temperature 97.5 [degF] Anibal Hermosillo MD Work Phone: [facility] 08-11-2023 13:01-0400 Body weight 116.6 kg Anibal Hermosillo MD Work Phone: [facility] 08-11-2023 13:01-0400 Diastolic blood pressure 68 mm[Hg] Anibal Hermosillo MD Work Phone: [facility] 08-11-2023 13:01-0400 Heart rate 76 /min Anibal Hermosillo MD Work Phone: [facility] 08-11-2023 13:01-0400 Respiratory rate 16 /min Anibal Hermosillo MD Work Phone: [facility] 08-11-2023 13:01-0400 SaO2% (BldA) [Mass fraction] 94 % Anibal Hermosillo MD Work Phone: [facility] 08-11-2023 13:01-0400 Systolic blood pressure 108 mm[Hg] Anibal Hermosillo MD Work Phone: [facility] 07-04-2023 14:44-0400 Body height 177.8 cm [facility] 07-04-2023 14:44-0400 Body mass index (BMI) [Ratio] 37.5 kg/m2 [facility] 07-04-2023 14:44-0400 Body weight 118.89 kg [facility] 07-04-2023 14:44-0400 Diastolic blood pressure 69 mm[Hg] [facility] 07-04-2023 14:44-0400 Heart rate 82 /min [facility] 07-04-2023 14:44-0400 Respiratory rate 20 /min [facility] 07-04-2023 14:44-0400 Systolic blood pressure 132 mm[Hg] [facility] 05-13-2023 12:24-0500 Body height 177.8 cm Julian Juarez MD Work Phone: [facility] 05-13-2023 12:24-0500 Body mass index (BMI) [Ratio] 37.52 kg/m2 Julian Juarez MD Work Phone: [facility] 05-13-2023 12:24-0500 Body temperature 97.59 [degF] Julian Juarez MD Work Phone: [facility] 05-13-2023 12:24-0500 Body weight 118.62 kg Julian Juarez MD Work Phone: [facility] 01-01-2023 14:00-0400 Body height 177.8 cm Danilo Ball Other [facility] [employer] Other 01-01-2023 14:00-0400 Body mass index (BMI) [Ratio] 37.02 kg/m2 Danilo Ball Other [facility] [employer] Other 01-01-2023 14:00-0400 Body weight 117.03 kg Danilo Ball Other [facility] [employer] Other 01-01-2023 14:00-0400 Diastolic blood pressure 70 mm[Hg] Danilo Ball Other [facility] [employer] Other 01-01-2023 14:00-0400 Respiratory rate 16 /min Danilo Ball Other [facility] Other 01-01-2023 14:00-0400 Systolic blood pressure 157 mm[Hg] Danilo Ball Other [facility] Other 10-01-2022 14:00-0400 Body height 177.8 cm Danilo Ball Other [facility] Other 10-01-2022 14:00-0400 Body mass index (BMI) [Ratio] 37.16 kg/m2 Danilo Ball Other [facility] Other 10-01-2022 14:00-0400 Body weight 117.48 kg Danilo Ball Other [facility] Other 10-01-2022 14:00-0400 Diastolic blood pressure 89 mm[Hg] Danilo Ball Other [facility] Other 10-01-2022 14:00-0400 Respiratory rate 20 /min Danilo Ball Other [facility] Other 10-01-2022 14:00-0400 Systolic blood pressure 162 mm[Hg] Danilo Ball Other [facility] Other 07-02-2022 16:00-0400 Body height 177.8 cm Danilo Ball Other [facility] Other 07-02-2022 16:00-0400 Body mass index (BMI) [Ratio] 37.33 kg/m2 Danilo Ball Other [facility] Other 07-02-2022 16:00-0400 Body weight 118.03 kg Danilo Ball Other [facility] Other 07-02-2022 16:00-0400 Diastolic blood pressure 78 mm[Hg] Danilo Ball Other [facility] Other 07-02-2022 16:00-0400 Respiratory rate 12 /min Danilo Ball Other [facility] Other 07-02-2022 16:00-0400 Systolic blood pressure 122 mm[Hg] Danilo Ball Other [facility] Other 04-02-2022 14:30-0500 Body height 177.8 cm Danilo Ball Other [facility] Other 04-02-2022 14:30-0500 Body mass index (BMI) [Ratio] 37.76 kg/m2 Danilo Ball Other [facility] Other 04-02-2022 14:30-0500 Body weight 119.39 kg Danilo Ball Other [facility] Other 04-02-2022 14:30-0500 Diastolic blood pressure 70 mm[Hg] Danilo Ball Other [facility] Other 04-02-2022 14:30-0500 Respiratory rate 20 /min Danilo Ball Other [facility] Other 04-02-2022 14:30-0500 Systolic blood pressure 118 mm[Hg] Danilo Ball Other [facility] Other Encounters Encounter Date Encounter Type Care Provider Facility Start: 08-11-2023 End: 08-11-2023 ambulatory DANILO THAKKAR Facility:[facility] Start: 08-11-2023 End: 08-11-2023 Office outpatient visit 25 minutes Anibal Hermosillo MD Work Phone: Hematology/Oncology Comment on above: 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 (HCC) (Primary Dx); Flank pain; Mild episode of recurrent major depressive disorder (HCC); Thrombocytopenia (HCC); Stage 3b chronic kidney disease (HCC); Stage 3a chronic kidney disease (HCC) Start: 08-07-2023 End: 08-07-2023 ambulatory WEN ALDRIDGE Not Available Start: 08-04-2023 End: 08-04-2023 ambulatory DANILO THAKKAR Facility:[facility] Start: 07-04-2023 End: 07-04-2023 ambulatory [facility] Work Phone: Start: 07-04-2023 End: 07-04-2023 [facility] encounter [facility] Start: 05-29-2023 End: 05-29-2023 ambulatory WEN ALDRIDGE Not Available Start: 05-26-2023 Non-patient / Non-visit [facility] Work Phone: Start: 05-16-2023 ambulatory [facility] Start: 05-13-2023 End: 05-13-2023 ambulatory [facility] Start: 05-13-2023 End: 05-13-2023 Office outpatient new 60 minutes Julian Juarez MD Work Phone: [facility] Comment on above: Parotid mass (Primar y Dx) Start: 02-27-2023 End: 02-27-2023 ambulatory Danilo Thakkar Other [facility] Other Start: 02-27-2023 Telephone encounter Danilo Thakkar [facility] Start: 02-19-2023 End: 02-19-2023 ambulatory DEEPTHI Jalyn BETTY Not Available Start: 02-10-2023 End: 02-10-2023 ambulatory ANIBAL REINOSOAR Facility:[facility] Start: 02-04-2023 End: 02-04-2023 ambulatory Danilo Thakkar Other [facility] Other Start: 02-04-2023 Telephone encounter Danilo Ball [facility] Start: 02-03-2023 End: 02-03-2023 ambulatory DANILO THAKKAR [facility] Other Start: 02-03-2023 Telephone encounter Danilo Thakkar [facility] Start: 01-30-2023 End: 01-30-2023 ambulatory Danilo Ball Other [facility] Other Start: 01-30-2023 Telephone encounter Danilo Thakkar [facility] Start: 01-21-2023 End: 01-21-2023 ambulatory Danilo Ball Other [facility] Other Start: 01-21-2023 Telephone encounter Danilo Thakkar [facility] Start: 01-09-2023 End: 01-09-2023 ambulatory Danilo Thakkar Other [facility] Other Start: 01-09-2023 Telephone encounter Danilo Thakkar [facility] Start: 01-06-2023 End: 01-06-2023 ambulatory Danilo Thakkar Other [facility] Other Start: 01-06-2023 Telephone encounter Danilo Thakkar [facility] Start: 01-01-2023 End: 01-01-2023 ambulatory Danilo Thakkar Other [facility] Other Start: 01-01-2023 Office outpatient vi sit 25 minutes Danilo Ball [facility] Start: 10-01-2022 End: 10-01-2022 ambulatory Danilo Ball Other [facility] Other Start: 10-01-2022 Office outpatient vi sit 25 minutes Danilo Ball [facility] Start: 08-01-2022 End: 08-01-2022 ambulatory Danilo Ball Other [facility] Other Start: 08-01-2022 Telephone encounter Danilo Ball [facility] Start: 07-22-2022 End: 08-21-2022 ambulatory IVY H FAWWAD Facility:[facility] Start: 07-03-2022 End: 07-03-2022 ambulatory Danilo Thakkar Other [facility] Other Start: 07-03-2022 Telephone encounter Danilo SMITH [facility] Start: 07-02-2022 End: 07-02-2022 ambulatory Danilo Thakkar Other [facility] Other Start: 07-02-2022 Patient encounter procedure Danilo ZAPIEN [facility] Start: 06-24-2022 End: 07-19-2022 ambulatory IVY H FAWWAD Facility:[facility] Start: 05-31-2022 End: 05-31-2022 ambulatory Danilo Thakkar Other [facility] Other Start: 05-31-2022 Telephone encounter Danilo SMITH [facility] Start: 05-22-2022 End: 06-21-2022 ambulatory IVY H CHASTITYWAD Facility:[facility] Start: 05-10-2022 End: 05-10-2022 ambulatory Danilo Thakkar Other [facility] Other Start: 05-10-2022 Telephone encounter Danilo SMITH [facility] Start: 05-01-2022 End: 05-01-2022 ambulatory Danilo Thakkar Other [facility] Other Start: 05-01-2022 Telephone encounter Danilo SMITH [facility] Start: 04-30-2022 End: 05-01-2022 ambulatory DANILO AMBER [facility] Other Start: 04-30-2022 Telephone encounter Danilo SMITH [facility] Start: 04-24-2022 End: 05-22-2022 ambulatory IVY H FAWWAD Facility:[facility] Start: 04-02-2022 End: 04-02-2022 ambulatory Danilo Thakkar Other [facility] Other Start: 04-02-2022 Office outpatient vi sit [address] [facility] Start: 03-25-2022 End: 04-24-2022 ambulatory IVY H FAWWAD Facility:[facility] Start: 02-21-2022 End: 03-24-2022 ambulatory IVY H FAWWAD Facility:[facility] Start: 02-11-2022 End: 02-11-2022 ambulatory Anibal Hermosillo MD Work Phone: Hematology/Oncology Comment on above: 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) [C90.01 (ICD-10-CM)] (Primary Dx) Start: 02-11-2022 End: 02-11-2022 Telemedicine consultation with patient Anibal Hermosillo MD Work Phone: [facility] Start: 02-01-2022 End: 02-04-2022 ambulatory Anibal Hermosillo MD Work Phone: Hematology/Oncology Comment on above: 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 (HCC) (Primary Dx) Start: 02-01-2022 End: 02-04-2022 Telemedicine consultation with patient Anibal Hermosillo MD Work Phone: [facility] Start: 01-22-2022 End: 02-20-2022 ambulatory IVY H FAWWAD Facility:[facility] Start: 01-09-2022 End: 01-10-[address] DANILO THAKKAR Facility:[facility] Start: 12-23-2021 End: 01-21-2022 ambulatory IVY H FAWWAD Facility:[facility] Start: 11-22-2021 End: 12-22-2021 ambulatory IVY H FAWWAD Facility:[facility] Start: 10-22-2021 End: 11-21-2021 ambulatory IVY H FAWWAD Facility:[facility] Start: 10-03-2021 End: 10-04-[address] DANILO THAKKAR Facility:[facility] Start: 10-03-2021 End: 10-03-2021 ambulatory IVY H FAWWAD Facility:[facility] Start: 07-02-2021 Adult health examination Angel Thakkar Other [facility] Other Start: 04-28-2017 End: 04-29-2017 Ambulatory Shawn Randolph Facility:[facility] Start: 04-24-2017 End: 04-25-2017 Ambulatory Shawn Randolph Facility:[facility] Start: 02-03-2017 End: 02-04-2017 Ambulatory [id number] UNKNOWN Ronny Facility:[facility] Procedures Date Procedure Procedure Detail Performing Clinician Start: 10-05-2015 Screening for malign ant neoplasm of colon Danilo Thakkar Other Start: 10-05-2015 Screening for malign ant neoplasm of prostate Danilo Ball Other Depression screening Benjami n Ball Other Depression screening Benjami n Ball Other Plan of Treatment Date Care Activity Detail Author Start: 02-07-2025 DIABETES SCREEN DIABETES SCREEN [facility] Start: 07-27-2024 DIABETES SCREEN DIABETES SCREEN [facility] Start: 11-10-2023 End: 11-10-2023 Follow-up encounter 11/10/2023 1:30 PM EDT Visit (SP) Office Hematology/Oncology [address] [place] [address] Anibal Hermosillo MD [address] [place] [address] 3 month follow up Hematology/Oncology Comment on above: 3 month follow up Start: 11-03-2023 End: 11-03-2023 Patient encounter procedure 11/03/2023 1:30 PM EDT Office Visit [facility] [address] [place] [address] 3 month lab [facility] Comment on above: 3 month lab Start: 08-29-2023 End: 08-29-2023 Patient encounter procedure 08/29/2023 1:00 PM EDT Appointment Radiology [facility] [address] [place] [address] Pet scan / Nurse triage to call results Radiology Pet CT Comment on above: Pet scan / Nurse tri age to call results Start: 08-11-2023 End: 08-10-2024 [id number] [Mass/volume] in Serum or Plasma B2 MICROGLOBULIN Lab Routine 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 (HCC) Expected: 08/11/2023, Expires: 08/10/2024 [facility] Comment on above: Expected: 08/11/2023 , Expires: 08/10/2024 Start: 08-11-2023 End: 08-10-2024 Calcium.ionized [Moles/volume] in Blood CALCIUM, IONIZED Lab Routine 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 (HCC) Expected: 08/11/2023, Expires: 08/10/2024 [facility] Comment on above: Expected: 08/11/2023 , Expires: 08/10/2024 Start: 08-11-2023 End: 08-10-2024 CBC W Auto Differential panel - Blood COMPLETE BLOOD COUNT AND DIFFERENTIAL Lab Routine 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 (HCC) Expected: 08/11/2023, Expires: 08/10/2024 [facility] Comment on above: Expected: 08/11/2023 , Expires: 08/10/2024 Start: 08-11-2023 End: 08-10-2024 Comprehensive metabolic 2000 panel - Serum or Plasma COMPREHENSIVE METABOLIC PANEL Lab Routine 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 (HCC) Expected: 08/11/2023, Expires: 08/10/2024 [facility] Comment on above: Expected: 08/11/2023 , Expires: 08/10/2024 Start: 08-11-2023 End: 11-10-2023 KAPPA/COTA,FREE,SER KAPPA/COTA,FREE,SER Lab Routine 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 (HCC) Expected: 08/11/2023, Expires: 11/10/2023 [facility] Comment on above: Expected: 08/11/2023 , Expires: 11/10/2023 Start: 08-11-2023 End: 08-10-2024 Lactate dehydrogenase [Enzymatic activity/volume] in Serum or Plasma LACTATE DEHYDROGENASE Lab Routine 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 (HCC) Expected: 08/11/2023, Expires: 08/10/2024 [facility] Comment on above: Expected: 08/11/2023 , Expires: 08/10/2024 Start: 08-11-2023 End: 08-10-2024 MONOCLONAL PROTEIN, SERUM (BLOOD) MONOCLONAL PROTEIN, SERUM (BLOOD) Lab Routine 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 (HCC) Expected: 08/11/2023, Expires: 08/10/2024 [facility] Comment on above: Expected: 08/11/2023 , Expires: 08/10/2024 Start: 08-11-2023 End: 08-10-2024 Phosphate [Mass/volume] in Serum or Plasma PHOSPHORUS INORGANIC Lab Routine 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 (HCC) Expected: 08/11/2023, Expires: 08/10/2024 [facility] Comment on above: Expected: 08/11/2023 , Expires: 08/10/2024 Start: 08-11-2023 End: 08-10-2024 PROTEIN ELECTROPHORESIS SERUM W/INTERP PROTEIN ELECTROPHORESIS SERUM W/INTERP Lab Routine 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 (HCC) Expected: 08/11/2023, Expires: 08/10/2024 [facility] Comment on above: Expected: 08/11/2023 , Expires: 08/10/2024 Start: 08-11-2023 End: 08-10-2024 Urate [Mass/volume] in Serum or Plasma URIC ACID Lab Routine 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 (HCC) Expected: 08/11/2023, Expires: 08/10/2024 [facility] Comment on above: Expected: 08/11/2023 , Expires: 08/10/2024 Start: 08-04-2023 Hemoglobin A1c measurement HbA1C [facility] Start: 03-24-2023 Advance Directive Discussion Advance Directive Discussion [facility] Start: 02-19-2023 COVID-19 Vaccine () COVID-19 Vaccine () [facility] Start: 02-19-2023 Covid-19 Vaccine () Covid-19 Vaccine () [facility] Start: 08-11-2022 End: 02-11-2023 [id number] [Mass/volume] in Serum or Plasma B2 MICROGLOBULIN B Lab Routine 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) [C90.01 (ICD-10-CM)] Expected: 08/11/2022 (Approximate), Expires: 02/11/2023 [facility] Work Phone: Comment on above: Expected: 08/11/2022 (Approximate), Expires: 02/11/2023 Start: 08-11-2022 End: 02-11-2023 Calcium.ionized [Moles/volume] in Blood CALCIUM IONIZED BLOOD Lab Routine 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) [C90.01 (ICD-10-CM)] Expected: 08/11/2022 (Approximate), Expires: 02/11/2023 [facility] Work Phone: Comment on above: Expected: 08/11/2022 (Approximate), Expires: 02/11/2023 Start: 08-11-2022 End: 02-11-2023 CBC W Auto Differential panel - Blood CBC + DIFF Lab Routine 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) [C90.01 (ICD-10-CM)] Expected: 08/11/2022 (Approximate), Expires: 02/11/2023 [facility] Work Phone: Comment on above: Expected: 08/11/2022 (Approximate), Expires: 02/11/2023 Start: 08-11-2022 End: 02-11-2023 Comprehensive metabolic 2000 panel - Serum or Plasma COMP METABOLIC PANEL Lab Routine 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) [C90.01 (ICD-10-CM)] Expected: 08/11/2022 (Approximate), Expires: 02/11/2023 [facility] Work Phone: Comment on above: Expected: 08/11/2022 (Approximate), Expires: 02/11/2023 Start: 08-11-2022 End: 10-11-2022 KAPPA/COTA,FREE,SER KAPPA/COTA,FREE,SER Lab Routine 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) [C90.01 (ICD-10-CM)] Expected: 08/11/2022 (Approximate), Expires: 10/11/2022 [facility] Work Phone: Comment on above: Expected: 08/11/2022 (Approximate), Expires: 10/11/2022 Start: 08-11-2022 End: 02-11-2023 Lactate dehydrogenase [Enzymatic activity/volume] in Serum or Plasma LD LACTATE DEHYDRO Lab Routine 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) [C90.01 (ICD-10-CM)] Expected: 08/11/2022 (Approximate), Expires: 02/11/2023 [facility] Work Phone: Comment on above: Expected: 08/11/2022 (Approximate), Expires: 02/11/2023 Start: 08-11-2022 End: 02-11-2023 MONOCLONAL PROTEIN, SERUM (BLOOD) MONOCLONAL PROTEIN, SERUM (BLOOD) Lab Routine 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) [C90.01 (ICD-10-CM)] Expected: 08/11/2022 (Approximate), Expires: 02/11/2023 [facility] Work Phone: Comment on above: Expected: 08/11/2022 (Approximate), Expires: 02/11/2023 Start: 08-11-2022 End: 02-11-2023 Phosphate [Mass/volume] in Serum or Plasma PHOSPHORUS INORGANIC Lab Routine 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) [C90.01 (ICD-10-CM)] Expected: 08/11/2022 (Approximate), Expires: 02/11/2023 [facility] Work Phone: Comment on above: Expected: 08/11/2022 (Approximate), Expires: 02/11/2023 Start: 08-11-2022 End: 02-11-2023 PROTEIN ELECTROPHORESIS SERUM W/INTERP PROTEIN ELECTROPHORESIS SERUM W/INTERP Lab Routine 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) [C90.01 (ICD-10-CM)] Expected: 08/11/2022 (Approximate), Expires: 02/11/2023 [facility] Work Phone: Comment on above: Expected: 08/11/2022 (Approximate), Expires: 02/11/2023 Start: 08-11-2022 End: 02-11-2023 Urate [Mass/volume] in Serum or Plasma URIC ACID BLOOD Lab Routine 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) [C90.01 (ICD-10-CM)] Expected: 08/11/2022 (Approximate), Expires: 02/11/2023 [facility] Work Phone: Comment on above: Expected: 08/11/2022 (Approximate), Expires: 02/11/2023 Start: 03-24-2021 ADVANCE DIRECTIVE DISCUSSION ADVANCE DIRECTIVE DISCUSSION [facility] Start: 03-24-2021 DEPRESSION ASSESSMENT DEPRESSION ASS ESSMENT [facility] Start: 01-24-2016 PNEUMOCOCCAL: 65+ (2 - PCV) PNEUMOCOCCAL: 65+ (2 - PCV) [facility] Start: 12-31-2012 DTaP/Tdap/Td Vaccine s (1 - Tdap) DTaP/Tdap/Td Vaccines (1 - Tdap) [facility] Start: 12-31-2012 Urine microalbumin profile DTaP,Tdap,Td Vaccine (1 - Tdap) [facility] Start: 2001 RSV Vaccine (1 - 1-d ose 60+ series) RSV Vaccine (1 - 1-dose 60+ series) [facility] Start: 01-30-1960 SHINGRIX VACCINE (1 of 2) QUICK GRIX VACCINE (1 of 2) [facility] Start: 01-30-1960 Urine microalbumin profile DTAP,TDAP,TD (1 - Tdap) [facility] Start: 01-30-1960 Zoster Vaccines (1 of 2) Zoster Vacc uziel (1 of 2) [facility] Start: 1959 Hepatitis B surface antibody level LDL Cholesterol [facility] Start: 1951 Diabetic foot examination Diabetic F oot Exam [facility] Start: 1951 Glaucoma screening Dilated Retinal E xam [facility] Start: 1951 Hepatitis B screening Urine Al bumin:Creatinine Ratio [facility] Start: 1941 Lipid panel Lipid Panel [facility] Start: 1941 Medicare Annual Well ness Visit Medicare Annual Wellness Visit (AWV) [facility] Comprehensive metabo lic 2000 panel - Serum or Plasma [facility] Microalbumin [Mass/volume] in Urine [facility] End: 09-09-2024 PET+CT Whole body Bone W [id number] IV NM PET/CT WHOLE BODY SUBSEQUENT Radiology Routine 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 (HCC) 1 Occurrences starting 08/11/2023 until 09/09/2024 [facility] Work Phone: Comment on above: 1 Occurrences starti ng 08/11/2023 until 09/09/[address] [facility] Immunizations Immunization Date Immunization Notes Care Provider Tee niño 01-01-2023 influenza, high dose seasonal, preservative-free Danilo Thakkar Other [facility] Other 01-01-2023 influenza virus vaccine, unspecified formulation [facility] 01-02-2022 influenza (aIIV4) vaccine, age 65+ yr, quadrivalent, PF (FLUAD QUAD) Anibal Hermosillo MD Work Phone: [facility] 01-02-2022 influenza virus vaccine, split virus (incl. purified surface antigen) Danilo Thakkar Other [facility] [employer] Other 01-02-2022 influenza virus vaccine, unspecified formulation [facility] 10-01-2021 COVID-19 original vaccine, age 12+ yr, monovalent (PFIZER-BIONTECH - HANNA TOP) Anibal Hermosillo MD Work Phone: [facility] 01-12-2021 COVID-19 original vaccine, age 12+ yr, monovalent (PFIZER-BIONTECH - PURPLE TOP) Anibal Hermosillo MD Work Phone: [facility] 12-20-2020 influenza virus vaccine, split virus (incl. purified surface antigen) Danilo Thakkar Other [facility] [employer] Other 12-20-2020 influenza virus vaccine, unspecified formulation [facility] 12-20-2020 Seasonal trivalent influenza vaccine, adjuvanted, preservative free Anibal Hermosillo MD Work Phone: [facility] 05-11-2020 COVID-19 original vaccine, age 12+ yr, monovalent (PFIZER-BIONTECH - PURPLE TOP) Anibal Hermosillo MD Work Phone: [facility] 04-26-2020 COVID-19 Vaccine Pfi zer - Documentation Purposes Only Danilo Thakkar Other [facility] 04-20-2020 COVID-19 original vaccine, age 12+ yr, monovalent (PFIZER-BIONTECH - PURPLE TOP) Anibal Hermosillo MD Work Phone: [facility] 11-26-2019 influenza virus vaccine, split virus (incl. purified surface antigen) Danilo Thakkar Other [facility] Other 11-26-2019 influenza virus vaccine, unspecified formulation [facility] 01-20-2019 influenza virus vaccine, split virus (incl. purified surface antigen) Danilo Thakkar Other [facility] Other 01-20-2019 influenza virus vaccine, unspecified formulation [facility] 01-13-2018 influenza virus vaccine, split virus (incl. purified surface antigen) Danilo Thakkar Other [facility] Other 01-13-2018 influenza virus vaccine, unspecified formulation [facility] 01-13-2018 Seasonal trivalent influenza vaccine, adjuvanted, preservative free Anibal Hermosillo MD Work Phone: [facility] 01-08-2017 influenza virus vaccine, split virus (incl. purified surface antigen) Danilo Thakkar Other [facility] Other 01-08-2017 influenza virus vaccine, unspecified formulation [facility] 01-07-2017 influenza, high dose seasonal, preservative-free Anibal Hermosillo MD Work Phone: [facility] 12-23-2016 influenza, injectabl e, quadrivalent, preservative free Anibal Hermosillo MD Work Phone: [facility] 01-31-2016 influenza virus vaccine, split virus (incl. purified surface antigen) Danilo Thakkar Other [facility] Other 01-31-2016 influenza virus vaccine, unspecified formulation [facility] 03-09-2015 pneumococcal conjuga te vaccine, 13 valent Danilo Thakkar Other [facility] 01-23-2015 pneumococcal polysaccharide vaccine, 23 valent Anibal Hermosillo MD Work Phone: [facility] 03-08-2014 pneumococcal Conjuga te, unspecified formulation; Translations: [Need for prophylactic vaccination against Streptococcus pneumoniae (pneumococcus)] Danilo Thakkar Other [facility] Other 03-08-2014 pneumococcal polysaccharide vaccine, 23 valent Danlio Thakkar Other [facility] 12-30-2012 tetanus and diphther ia toxoids, adsorbed, preservative free, for adult use (5 Lf of tetanus toxoid and 2 Lf of diphtheria toxoid) Danilo Thakkar Other [facility] 12-25-2011 tetanus and diphther ia toxoids, adsorbed, preservative free, for adult use (5 Lf of tetanus toxoid and 2 Lf of diphtheria toxoid) Danilo Thakkar Other [facility] 10-24-2004 pneumococcal polysaccharide vaccine, 23 valent Danilo Thakkar Other [facility] Payers Date Payer Category Payer Medicare [facility] [id number] 2020-Present [address] [place] [address] [id number] 2019 Unknown [id number]. [id number] 2017 Private Health Insurance [id number] 1959 Medicare [id number] [id number] 1941 Unknown [id number] 2.16.840.1.571994.3.579. 2.593 1941 Unknown [id number] 2.16.840.1.125081.3.579. 2.593 1941 Unknown [id number] 2.16.840.1.913587.3.579. 2.593 1941 Unknown [id number] 2.16.840.1.961289.3.579. 2.593 1941 Unknown [id number] 2.16.840.1.655782.3.579. 2.593 1941 Unknown [id number] 2.16.840.1.340356.3.579. 2.593 1941 Unknown [id number] 2.16.840.1.122844.3.579. 2.593 1941 Unknown [id number] 2.16.840.1.958819.3.579. 2.593 1941 Unknown [id number] 2.16.840.1.812998.3.579. 2.593 1941 Unknown [id number] 2.16.840.1.893706.3.579. 2.593 1941 Unknown [id number] 2.16.840.1.540722.3.579. 2.593 1941 Unknown [id number] 2.16.840.1.016048.3.579. 2.593 1941 Unknown [id number] 2.16.840.1.327794.3.579. 2.593 1941 Unknown [id number] 2.16.840.1.856004.3.579. 2.593 1941 Unknown [id number] 2.16.840.1.880528.3.579. 2.1244 1941 Unknown [id number] 2.16.840.1.013636.3.579. 2.1242 1941 Unknown [id number] 2.16.840.1.468095.3.579. 2.1259 1941 Unknown [id number] 2.16.840.1.002501.3.579. 2.1259 1941 Unknown [id number] 2.16.840.1.028900.3.579. 2.1259 Medicare Medicare [id number] Private Health Insurance [employer] [id number] Self-pay Self Pay [id number] Social History Date Type Detail Facility Start: 12-17-2016 Tobacco smoking stat us NHIS Ex-smoker [facility] End: 12-12-1976 History of tobacco use Current smoker [facility] End: 12-12-1976 History of tobacco use Cigar Smoker [facility] Start: 12-17-2016 End: 05-13-2023 Tobacco use and exposure Smokeless tobacco non-user [facility] Start: 08-03-2021 End: 02-10-2023 Alcohol intake Current drinker of alcohol (finding) [facility] Start: 11-05-2016 Tobacco Comment Quit 40 years ago [facility] Start: 11-05-2016 Alcohol Comment 2 beers per year. [facility] Start: 1940 Sex Assigned At Not on file C [facility] Start: 08-12-2022 End: 02-10-2023 Sex Assigned At [facility] Start: 05-13-2023 End: 05-26-2023 Tobacco smoking status CTIS Never smoked tobacco [facility] Work Phone: Start: 05-03-2023 End: 05-13-2023 Exposure to SARS-CoV-2 (event) Not sure [facility] Start: 1940 Sex Assigned At Male F [facility] Start: 08-12-2022 End: 02-10-2023 History of Social function [facility] Adult Depression Screening Assessment 0 [facility] Medical Equipment Procedure Code Equipment Code Equipment Origin al Text Equipment Identifier Dates Open reduction and internal fixation of fracture of humerus K-WIRE 2.5MM W/ [place] FDA Start: 12-13-2016 Open reduction and internal fixation of fracture of humerus NAIL HUMERAL 9MM X 280MM TI FDA Start: 12-13-2016 Open reduction and internal fixation of fracture of humerus SCREW 4.0MM TI LOCKING W/ T25 FDA Start: 12-13-2016 [id number], [id number] Start: 12-07-2018 Clinical Notes 09-20-2020 to 08-11-2023 Patient InstructionsMadeleine Schilling MA - 08/11/2023 1:09 PM EDTMadeleine Bradford MA - 08/11/2023 1:09 PM Anibal Sterling MD - 08/11/2023 1:00 PM EDT Note Date & Type Note Facility 08-11-2023 Note HNO ID: [id number] Author: ANIBAL HERMOSILLO MD Service: ? Author Type: Physician Type: Progress Notes Filed: 08/11/2023 18:18 Note Text: NAME: Rafat Bella [facility] NO[facility] [id number] DATE OF SERVICE: August 11, 2023 (Mihir) Some elements in this clinic note that are critical to medical decision making have been carefully reviewed and included from a prior clinic note dated: February 10, 2023 (Mihir) Referring Provider: Danilo Thakkar CC: Multiple myeloma ASSESSMENT: 83 year old gentleman with multiple myeloma currently being observed off treatment. Previous pulmonary embolus in 2016. He responded very nicely to treatment and was monitored for 2 years without evidence of disease before stopping subsequent therapy since March 2019. M-spike remains 0 Pulmonary embolus in January 2016. Predates his diagnosis of multiple myeloma by nearly a year. Multiple myeloma IgG kappa He has positive bony disease, likely slight renal insufficiency and mild anemia at diagnosis. M spike rapidly increasing 1.05 diagnosis, K light chains 110, lambda light chains 32 at diagnosis. Quantitative IgG was 1820. At diagnosis his skeletal survey showed multiple very small lytic lesions in his upper extremities and his calvarium, PET/CT was only positive in his one large humerus lesion. Currently M-spike is 0 and k/L stable. Bone prophylaxis Previously receieved zolendronic acid. PLAN: PET/CT whole body as soon as approved Triage to call results Repeat myeloma labs in 3 months RTC 1 week after to review labs MRI of the spine if desired ___ HPI: CASE HISTORY: Reverse Chronological Order 08/04/2023 - M-protein: 0.41 multiple previous values of 0.00. 02/26/2023 - US Soft Tissue Head/Neck: Heterogeneous, avascular, suspicious appearing mass within left parotid gland region; not appreciably changed compared to 01/03/2023. 02/07/2023 - CT neck soft tissue: Along the posterior inferior aspect of the left parotid gland there is a heterogeneous enhancing rounded lesion with areas of hypoenhancement measuring approximately 2 x 2 by 1.7 cm in AP, TV and CC dimensions. Differential diagnosis include but not limited to primary parotid neoplasm such as pleomorphic adenoma, Warthin's tumor versus enlarged intraparotid lymph node. 2018 - Completed radiotherapy MRI thoracic spine - thecal sac indentation at T8 from a disc problem that does not seem to be related to myeloma. MRI cervical spine - solitary 8 mm lesion in the mid dens. 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 Following this he completed radiation to the right humerus lesion. Despite no lesions evident on PET/CT. Had compression fracture requiring kyphoplasty shortly after diagnosis. Updated Visit, August 11, 2023: Rafat returns with Cheli for a follow up. M-protein is up to 0.41 as of last week - ordered PET/CT. Uncertain whether or not this M-spike reflects a resurgence of his myeloma or not. He complains of bilateral flank pain, different from his chronic spinal pain. But in a similar area as his previous kyphoplasty. He has loose stools and some difficulty urinating, according to Cheli. He has prescribed oxycodone but he does not take often as it causes constipation - although this may be beneficial as he has been having diarrhea. Updated Visit, February 10, 2023: Rafat returns today for follow up accompanied by his Cheli, with concerns over a spot behind his left ear. He has had an US, a Bx, and at CT. US was negative, Bx was inconclusive. He had a 10-day course of antibiotics, but he does not feel there was any change. Saw Dr. Browning ENT for this. I feel he will need another biopsy in order to determine specific etiology and appropriate treatment. He also has been dealing with HTN recently. He very occasionally takes something for his back pain, but only if it gets severe. We discussed considering an MRI for his back, and suggested he continue taking the meds when he is experiencing pain. In terms of his myeloma, he is doing well and his myeloma labs were all satisfactory. Updated Visit, August 12, 2022: Doing well. No complaints but is fatigued. Cheli is with as usual. Reviewed labs. No evidence of progressive disease. Updated Visit, February 11, 2022: Telephone only for 5 minutes Called Ryanne as requested. Reviewed labs from 02/07/2022. 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 He has no complai (more content not included)... [facility] 08-11-2023 Instructions Stacie Banegas - 08/11/2023 1:21 PM EDT PET/CT whole body as soon as approved Triage to call results Repeat myeloma labs in 3 months RTC 1 week after to review labs documented in this encounter [facility] 08-11-2023 Nurse Note Patient does have flank pain, his thinks it may be UTI, I did advise her to discuss with you but we could do a UA if it is ordered. Madeleine Schilling MA [facility] 08-11-2023 Nurse Note Patient does have flank pain, his thinks it may be UTI, I did advise her to discuss with you but we could do a UA if it is ordered. Madeleine Schilling MA documented in this encounter [facility] 08-11-2023 History of Present illness Narrative Images from the original note were not included. NAME: Rafat Bella [facility] NO.: [id number] DATE OF SERVICE: August 11, 2023 (daron) Some elements in this clinic note that are critical to medical decision making have been carefully reviewed and included from a prior clinic note dated: February 10, 2023 (Mihir) Referring Provider: Danilo Thakkar CC: Multiple myeloma ASSESSMENT: 83 year old gentleman with multiple myeloma currently being observed off treatment. Previous pulmonary embolus in 2016. He responded very nicely to treatment and was monitored for 2 years without evidence of disease before stopping subsequent therapy since March 2019. M-spike remains 0 Pulmonary embolus in January 2016. Predates his diagnosis of multiple myeloma by nearly a year. Multiple myeloma IgG kappa He has positive bony disease, likely slight renal insufficiency and mild anemia at diagnosis. M spike rapidly increasing 1.05 diagnosis, K light chains 110, lambda light chains 32 at diagnosis. Quantitative IgG was 1820. At diagnosis his skeletal survey showed multiple very small lytic lesions in his upper extremities and his calvarium, PET/CT was only positive in his one large humerus lesion. Currently M-spike is 0 and k/L stable. Bone prophylaxis Previously receieved zolendronic acid. PLAN: PET/CT whole body as soon as approved Triage to call results Repeat myeloma labs in 3 months RTC 1 week after to review labs MRI of the spine if desired HPI: CASE HISTORY: Reverse Chronological Order 08/04/2023 - M-protein: 0.41 multiple previous values of 0.00. 02/26/2023 - US Soft Tissue Head/Neck: Heterogeneous, avascular, suspicious appearing mass within left parotid gland region; not appreciably changed compared to 01/03/2023. 02/07/2023 - CT neck soft tissue: Along the posterior inferior aspect of the left parotid gland there is a heterogeneous enhancing rounded lesion with areas of hypoenhancement measuring approximately 2 x 2 by 1.7 cm in AP, TV and CC dimensions. Differential diagnosis include but not limited to primary parotid neoplasm such as pleomorphic adenoma, Warthin's tumor versus enlarged intraparotid lymph node. 2018 - Completed radiotherapy MRI thoracic spine - thecal sac indentation at T8 from a disc problem that does not seem to be related to myeloma. MRI cervical spine - solitary 8 mm lesion in the mid dens. 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 Following this he completed radiation to the right humerus lesion. Despite no lesions evident on PET/CT. Had compression fracture requiring kyphoplasty shortly after diagnosis. Updated Visit, August 11, 2023: Rafat returns with Cheli for a follow up. M-protein is up to 0.41 as of last week - ordered PET/CT. Uncertain whether or not this M-spike reflects a resurgence of his myeloma or not. He complains of bilateral flank pain, different from his chronic spinal pain. But in a similar area as his previous kyphoplasty. He has loose stools and some difficulty urinating, according to Cheli. He has prescribed oxycodone but he does not take often as it causes constipation - although this may be beneficial as he has been having diarrhea. Updated Visit, February 10, 2023: Rafat returns today for follow up accompanied by his Cheli, with concerns over a spot behind his left ear. He has had an US, a Bx, and at CT. US was negative, Bx was inconclusive. He had a 10-day course of antibiotics, but he does not feel there was any change. Saw Dr. Browning ENT for this. I feel he will need another biopsy in order to determine specific etiology and appropriate treatment. He also has been dealing with HTN recently. He very occasionally takes something for his back pain, but only if it gets severe. We discussed considering an MRI for his back, and suggested he continue taking the meds when he is experiencing pain. In terms of his myeloma, he is doing well and his myeloma labs were all satisfactory. Updated Visit, August 12, 2022: Doing well. No complaints but is fatigued. Cheli is with as usual. Reviewed labs. No evidence of progressive disease. Updated Visit, February 11, 2022: Telephone only for 5 minutes Called Ryanne as requested. Reviewed labs from 02/07/2022. 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 He has no complaints. 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 Still off treatment and still has no evidence of disease. Overall is doing well. M spike remain undetectable and all other labs are stable. Cheli is with him. Updated Visit, December 18, 2020: Telephone only for 5 minutes Doing very wel - was on the call too. Labs reviewed and remain stable with no evidence of M-spike. Updated Visit, May 31, 2020: 80 yo gentleman with multiple myeloma that is without significant evidence of active disease following treatment with Revlimid and also radiation through early 2017. M-spike remains undetectable and K/ L ration is normal. He has no significant complaints and since he has been uniterested in addressing his sleep apnea, I didn't broach the subject. Continues to have pain associated with bone involvement from myeloma that caused an old spinal compression fracture. Updated Visit, December 01, 2019: This is a 79 year old male past medical history of hypertension, type 2 diabetes, obstructive sleep apnea, androgen deficiency, chronic renal insufficiency, stage III, diabetic peripheral neuropathy, history of tobacco smoke, pulmonary embolism, prostatic hypertrophy, obesity, hyperlipidemia. Feels lousy, isn't sleeping well - uninterested in CPAP or sleep study. Not interested in neurosurgical intervention or assessment. May not want to follow up with labs. Discussion of results from 12/08/2019: Relayed results to Mrs. Bella. All his indices are stable and M protein is undetectable. He has minimal anemia. He would benefit greatly if he undergoes a sleep study and entertains CPAP machine but he is not interested. Will schedule labs in 6 months 1 week prior to RTC. Updated Visit, June 02, 2019: Returns in follow up he has no detectable M-Sai but has persisting lucencies that are stable. He primarily complains of back pain that shoot down the back of his left leg. He's never had a neurosurgical workup and I think he should consider it. His CT spine shows multiple areas of spondolytic changes in thoracic and lumbar vertebrae. Background History: Had first blood clot in January 2016. He went to [place] ER for fatigue and diagnosed with a clot, not sure if it was in his legs or his lungs. Initially presented to me in October 2016 with severe fatigue, anorexia, malaise, myalgias, pain and weakness in his right upper extremity. Skeletal survey confirmed bony myelomatous lesions, very profound lytic lesion in the right humerus. His bone marrow aspirate and biopsy showed very little involvement in his posterior superior iliac spine. There was a small focal plasma cell sheets consistent with involvement by plasma cell neoplasm. Bone marrow aspirate did not have increased plasma cells and karyotype was normal. Had right humerus julian placed by Dr. Gimenez on right arm on 12/13. Raditotherapy 2000cGy in 10 fractions to cervical spine. Began cycle 1 day 1 of Velcade and Decadron in November 2016, for cycle 2 in December added Revlimid. Had hospitalization in January 2017 to [place] and had a kyphoplasty for compression fracture. Had hospitalization in February 2017 for severe anemia secondary to GI bleed. He had a short stay in a rehabilitation facility which necessitated holding his active myeloma therapy. Restarted on 02/25/17. Had a excellent M spike response and was tolerating triple therapy only marginally therefore was given a treatment break in May 2017 which he remains on as of October 2017. REVIEW OF SYSTEMS Per HPI and otherwise negative by full review of organ systems. ECOG PERFORMANCE STATUS: 2 PHYSICAL EXAMINATION: Vitals: BP 108/68 Pulse 76 Temp (Src) 97.5 (Temporal) Resp 16 Wt 257 lb 0.9 oz (116.6kg) SpO2 94% Body surface area is 2.39 meters squared. Exam limited to gross visualization where appropriate. Gen.: This is an age-appropriate patient in no acute distress. Head: Appears atraumatic with no visible lesions. Eyes: Pupils equally round and reactive to light, extraocular muscles are intact. Neck: Supple. Respiratory: Appears to be respiring comfortably. Neurologic: Nonfocal to gross visualization. Alert and oriented 3. Psychiatric: No evidence of inappropriate anxiety or depression. Skin: Visible areas of skin without rash, lesions, wounds or petechiae. ALLERGIES: ALLERGIES Allergen Reactions Penicillins Swelling Swelling of the mouth. MEDICATIONS: pioglitazone (ACTOS) 15 mg tablet Take 15 mg by mouth daily before breakfast. oxyCODONE IR (ROXICODONE) 5 mg immediate release tablet Take 2 tablets by mouth every 6 hours as needed for up to 30 days. ACCU-CHEK ELIZABETH PLUS TEST STRP test strip BD INSULIN PEN NEEDLE UF 31 gauge x 08/06 nd gabapentin (NEURONTIN) 300 mg capsule GABAPENTIN ORAL Take by mouth. acyclovir (ZOVIRAX) 400 mg tablet TAKE ONE TABLET BY MOUTH TWICE DAILY escitalopram oxalate (LEXAPRO) 20 mg tablet Take 1 tablet by mouth once daily. predniSONE (DELTASONE) 5 mg tablet Take 1 tablet by mouth once daily. VOLTAREN 1 % topical gel Apply 2 g to affected area four times daily. warfarin (COUMADIN) 5 mg tablet Take 5 mg by mouth once daily. Weds and Sat 2.5 mg glimepiride (AMARYL) 1 mg tablet Take 1 mg by mouth daily with breakfast. senna-docusate (MEDI-NATURAL SENNA-STOOL) 8.6-50 mg per tablet Take 2 tablets by mouth twice daily. linaGLIPtin (TRADJENTA) 5 mg tab Take 5 mg by mouth once daily. ondansetron (ZOFRAN) 4 mg tablet Take 4 mg by mouth every 8 hours as needed. pantoprazole DR (PROTONIX) 40 mg tablet Take 40 mg by mouth once daily. tamsulosin ER (FLOMAX) 0.4 mg cp24 Take 0.4 mg by mouth once daily. atorvastatin (LIPITOR) 20 mg tablet Take 20 mg by mouth once daily. Losartan-Hydrochlorothiazide 100-12.5 mg per tablet Take 1 tablet by mouth once daily. 1/2 tab daily insulin glargine 100 unit/mL (3 mL) Inject 10 Units subcutaneously daily at bedtime. LABORATORY VALUES: WBC (k/uL) Date Value 08/04/2023 7.73 RBC (m/uL) Date Value 08/04/2023 4.44 Hemoglobin (g/dL) Date Value 08/04/2023 13.5 Hematocrit (%) Date Value 08/04/2023 40.9 MCV (fL) Date Value 08/04/2023 92.1 MCH (pg) Date Value 08/04/2023 30.4 MCHC (g/dL) Date Value 08/04/2023 33.0 RDW-CV (%) Date Value 08/04/2023 12.8 Platelet Count (k/uL) Date Value 08/04/2023 187 MPV (fL) Date Value 08/04/2023 10.0 Glucose (mg/dL) Date Value 08/04/2023 320 (H) BUN (mg/dL) Date Value 08/04/2023 14 Creatinine (mg/dL) Date Value 08/04/2023 1.46 (H) Sodium (mmol/L) Date Value 08/04/2023 136 Potassium (mmol/L) Date Value 08/04/2023 4.3 Chloride (mmol/L) Date Value 08/04/2023 104 CO2 (mmol/L) Date Value 08/04/2023 23 Protein, Total (g/dL) Date Value 08/04/2023 7.2 08/04/2023 6.6 Albumin (g/dL) Date Value 08/04/2023 4.0 Calcium, Total (mg/dL) Date Value 08/04/2023 9.3 Alkaline Phosphatase (U/L) Date Value 08/04/2023 88 Bilirubin, Total (mg/dL) Date Value 08/04/2023 0.3 AST (U/L) Date Value 08/04/2023 27 ALT (U/L) Date Value 08/04/2023 25 M-Protein Concentration Date Value 08/04/2023 0.41 g/dL 02/03/2023 0.00 g/dL 08/05/2022 0.00 g/dL 02/07/2022 0.00 g/dL 07/27/2021 0.00 g/dL 12/11/2020 0.00 gm/dL 05/24/2020 0.00 gm/dL 12/01/2019 0.00 gm/dL 05/20/2019 0.00 gm/dL 03/22/2019 0.00 gm/dL DIAGNOSIS: (C90.00) 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 (HCC) (primary encounter diagnosis) Plan: NM PET/CT WHOLE BODY SUBSEQUENT, B2 MICROGLOBULIN, COMPLETE BLOOD COUNT AND DIFFERENTIAL, COMPREHENSIVE METABOLIC PANEL, LACTATE DEHYDROGENASE, PHOSPHORUS INORGANIC, PROTEIN ELECTROPHORESIS SERUM W/INTERP, MONOCLONAL PROTEIN, SERUM (BLOOD), URIC ACID, CALCIUM, IONIZED, KAPPA/COTA,FREE,SER (R10.9) Flank pain Plan: CANCELED: URINALYSIS WITH MICROSCOPIC, REFLEX CULTURE (F33.0) 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) Thrombocytopenia (HCC) (N18.32) Stage 3b chronic kidney disease (HCC) (N18.31) Stage 3a chronic kidney disease (HCC) PAST MEDICAL HISTORY Diagnosis Date Androgen deficiency Anemia Cholelithiasis Chronic kidney disease Stage 3 Diabetic peripheral neuropathy (HCC) Essential hypertension Hyperlipidemia Hypertrophy of prostate without urinary obstruction Malaise and fatigue Monoclonal gammopathy Morbid obesity (HCC) Pulmonary embolism (HCC) Tubular adenoma of colon Type 2 diabetes mellitus (HCC) PAST SURGICAL HISTORY Procedure Laterality Date APPENDECTOMY COLONOSCOPY 07/2013 DIAGNOSTIC ARTHROSCOPY SHOULDER +- SYNOVIAL BX Left TONSILLECTOMY HX Social History Tobacco Use Smoking status: Former Types: Cigars Quit date: 12/12/1976 Years since quittin.6 Smokeless tobacco: Never Tobacco comments: Quit 40 years ago Substance Use Topics Alcohol use: Yes Comment: 2 beers per year. Drug use: No FAMILY HISTORY Problem Relation Age of Onset Cancer Mother Colon Cancer Father Colon Cancer Maternal Aunt I spent a total of 30 minutes on the date of the service which included preparing to see the patient, [id number] patient care, completing clinical documentation, performing a medically appropriate examination, counseling and educating the patient/family/caregiver, ordering medications, tests, or procedures, independently interpreting results (not separately reported), communicating results to the patient/family/caregiver, and care coordination (not separately reported). Anibal Hermosillo MD, CPE Hematology and Oncology Services Provided at: [facility], [place], [place] Scribe Attestation: This note was scribed by Stacie Banegas on August 11, 2023 under the direction and supervision of Dr. Anibal Hermosillo. I attest that all of the information documented is correct to the best of my knowledge. Provider Attestation: I, Anibal Hermosillo MD, attest that all information documented by the above scribe is correct, and was supervised by me and under my direction. CC: Danilo Thakkar MD [facility] [id number] documented in this encounter [facility] 02-27-2023 Evaluation note Encounter Date Diagnosis Assessment Notes Feb, Essential (primary) hypertension (ICD-10 - I10) Feb, Type 2 diabetes mellitus with hyperglycemia (ICD-10 - E11.65) [facility] Other 11-20-2023 NoteHNO ID: [id number] Author: Anibal Hermosillo MD Service: ? Author Type: Physician Type: Progress Notes Filed: 02/10/2023 7:28 PM Note Text: NAME: Rafat Bella [facility] NO[facility] [id number] DATE OF SERVICE: February 10, 2023 (Mihir) Some elements in this clinic note that are critical to medical decision making have been carefully reviewed and included from a prior clinic note dated: August 12, 2022 (Mihir) Referring Provider: Danilo Thakkar CC: Multiple myeloma ASSESSMENT: 83 year old gentleman with multiple myeloma currently being observed off treatment. Previous pulmonary embolus in 2015. He responded very nicely to treatment and was monitored for 2 years without evidence of disease before stopping subsequent therapy since March 2019. M-spike remains 0 Pulmonary embolus in January 2016. Predates his diagnosis of multiple myeloma by nearly a year. Multiple myeloma IgG kappa He has positive bony disease, likely slight renal insufficiency and mild anemia at diagnosis. M spike rapidly increasing 1.05 diagnosis, K light chains 110, lambda light chains 32 at diagnosis. Quantitative IgG was 1820. At diagnosis his skeletal survey showed multiple very small lytic lesions in his upper extremities and his calvarium, PET/CT was only positive in his one large humerus lesion. Currently M-spike is 0 and k/L stable. Bone prophylaxis Previously receieved zolendronic acid. PLAN: Repeat myeloma labs in 6 months RTC 1 week after to review labs MRI of the spine if desired HPI: Case History: 02/07/2023 - CT neck soft tissue: Along the posterior inferior aspect of the left parotid gland there is a heterogeneous enhancing rounded lesion with areas of hypoenhancement measuring approximately 2 x 2 by 1.7 cm in AP, TV and CC dimensions. Differential diagnosis include but not limited to primary parotid neoplasm such as pleomorphic adenoma, Warthin's tumor versus enlarged intraparotid lymph node. 2018 - Completed radiotherapy MRI thoracic spine - thecal sac indentation at T8 from a disc problem that does not seem to be related to myeloma. MRI cervical spine - solitary 8 mm lesion in the mid dens. 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 Following this he completed radiation to the right humerus lesion. Despite no lesions evident on PET/CT. Had compression fracture requiring kyphoplasty shortly after diagnosis. Updated Visit, February 10, 2023: Rafat returns today for follow up accompanied by his Cheli, with concerns over a spot behind his left ear. He has had an US, a Bx, and at CT. US was negative, Bx was inconclusive. He had a 10-day course of antibiotics, but he does not feel there was any change. Saw Dr. Browning ENT for this. I feel he will need another biopsy in order to determine specific etiology and appropriate treatment. He also has been dealing with HTN recently. He very occasionally takes something for his back pain, but only if it gets severe. We discussed considering an MRI for his back, and suggested he continue taking the meds when he is experiencing pain. In terms of his myeloma, he is doing well and his myeloma labs were all satisfactory. Updated Visit, August 12, 2022: Doing well. No complaints but is fatigued. Cheli is with as usual. Reviewed labs. No evidence of progressive disease. Updated Visit, February 11, 2022: Telephone only for 5 minutes Called Ryanne as requested. Reviewed labs from 02/07/2022. 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 He has no complaints. 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 Still off treatment and still has no evidence of disease. Overall is doing well. M spike remain undetectable and all other labs are stable. Cheli is with him. Updated Visit, December 18, 2020: Telephone only for 5 minutes Doing very wel - was on the call too. Labs reviewed and remain stable with no evidence of M-spike. Updated Visit, May 31, 2020: 80 yo gentleman with multiple myeloma that is without significant evidence of active disease following treatment with Revlimid and also radiation through early 2017. M-spike remains undetectable and K/ L ration is normal. He has no significant complaints and since he has been uniterested in addressing his sleep apnea, I didn't broach the subject. Continues to have pain associated wit (more content not included)...[facility]11-13-2023 Evaluation note* Encounter Date Diagnosis Assessment Notes Treatment Notes Treatment Clinical Notes Jan, Complex regional pain syndrome I of right upper limb (ICD-10 - G90.511) Continue Neurontin and consider pain management. [facility] Other 10-11-2023 Evaluation note* Encounter Date Diagnosis Assessment Notes Treatment Notes Treatment Clinical Notes Dec, Type 2 diabetes mellitus with hyperglycemia (ICD-10 - E11.65) This patient is following a comprehensive diabetic treatment plan. They are checking their feet daily for calluses and nonhealing ulcers. They are being seen for yearly dilated eye examinations. Goals: SBP less than 130, LDL less than 100, FBS less than 140, A1C less than 7%. They are checking their BS daily, will which are reviewed at the office visit. Continue regular routine monitoring of A1C,] Microalbumin, Dilated eye exam and Foot exam Dec, Essential (primary) hypertension (ICD-10 - I10) This patient is instructed to consume a healthy, low-fat, low-salt diet. They are also encouraged to continue exercise to achieve/maintain a normal BMI. Patient is instructed on home BP measurements: - rest for 5 minutes w/o talking- positioned w/ feet on floor and arm supported- average best 2/3 readings w/ goal < 135/85 Increase Losartan to 50mg q am and 25mg q pm Dec, Type 2 diabetes mellitus with diabetic polyneuropathy (ICD-10 - E11.42) Inspect feet daily for cuts and calluses.Recommend diabetic shoes and inserts to prevent callus formation.Fall precautions. Dec, Chronic kidney disease, stage 3b (ICD-10 - N18.32) The patient is instructed on adequate control of hypertension and diabetes, if appropriate. They are also educated on the associated risks of NSAIDs and PPI use with kidney disease. They were instructed on adequate fluid balance and to avoid dehydration. Dec, Complex regional jasmeet n syndrome type 1 of right upper extremity (ICD-10 - G90.511) Pain adequately controlled. Ice/heat and Tylenol Dec, Elevated cholesterol (ICD-10 - E78.00) Instructed on diet and exercise with continued statin therapy.Discussed the beneficial effects of lowering cholesterol in reducing the risk for cerebrovascular and cardiovascular disease. Dec, 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 (ICD-10 - C90.00) No s/s recurrence, f/u Oncology Dec, Bone metastases (ICD-10 - C79.51) Pain adequately controlled Continue Hydrocodone as needed. 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 They are checking their feet daily for calluses and nonhealing ulcers. They are being seen for yearly dilated eye examinations. Goals: SBP less than 130, LDL less than 100, FBS less than 140, AC and A1C less than 7%. They are checking their BS daily, will which are reviewed at the office visit. Continue regular routine monitoring of A1C,] Microalbumin, Dilated eye exam and Foot exam Sep, Type 2 diabetes mellitus with diabetic polyneuropathy (ICD-10 - E11.42) Inspect feet daily for cuts and calluses.Recommend diabetic shoes and inserts to prevent callus formation.Fall precautions. Sep, Chronic kidney disease, stage 3b (ICD-10 - N18.32) The patient is instructed on adequate control of hypertension and diabetes, if appropriate. They are also educated on the associated risks of NSAIDs and PPI use with kidney disease. They were instructed on adequate fluid balance and to avoid dehydration. Sep, Essential (primary) hypertension (ICD-10 - I10) This patient is instructed to consume a healthy, low-fat, low-salt diet. They are also encouraged to continue exercise to achieve/maintain a normal BMI. Sep, Complex regional pain syndrome type 1 of right upper extremity (ICD-10 - G90.511) Gabapentin w/ minimal benefit Requires opiate pain reliever to tolerate during daytime and sleep Sep, Elevated cholesterol (ICD-10 - E78.00) Instructed on diet and exercise with continued statin therapy.Discussed the beneficial effects of lowering cholesterol in reducing the risk for cerebrovascular and cardiovascular disease. Sep, 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 (ICD-10 - C90.00) No s/s relapse. f/u Heme/Onc for blood testing q 6 mo. Hx of bone metastasis: right Humerus Sep, Bone metastases (ICD-10 - C79.51) This patient requires opiate use on a daily basis to control pain.This patient does not exhibit drug-seeking or aberrant behavior.This patient is able to continue with ADL, with an adequate quality of life, that they would not be able to achieve without the prescription pain medication.There has been no surgical treatment recommended for this condition.Use of nonopiate treatment should be continued, such as nonstrenuous and aquatic exercises.This patient has a pain management contract and they have been counseled on safe storage of the medication.They have been counseled on the risks of concomitant use with alcohol or sedating meds. PDMP is being followed and this patient's OARRS report is being monitored every 90 days. 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 They are also educated on the associated risks of NSAIDs and PPI use with kidney disease. They were instructed on adequate fluid balance and to avoid dehydration. [facility] Other 05-11-2023 Evaluation note* Encounter Date Diagnosis Assessment Notes Treatment Notes Treatment Clinical Notes July, Type 2 diabetes mellitus with hyperglycemia (ICD-10 - E11.65) [facility] Other 04-12-2023 Evaluation note* Encounter Date Diagnosis Assessment Notes Treatment Notes Treatment Clinical Notes Jun, Bone metastases (ICD-10 - C79.51) [facility] Other 04-11-2023 Evaluation note* Encounter Date Diagnosis Assessment Notes Treatment Notes Treatment Clinical Notes Jun, Type 2 diabetes mellitus with hyperglycemia (ICD-10 - E11.65) This patient is following a comprehensive diabetic treatment plan. They are checking their feet daily for calluses and nonhealing ulcers. They are being seen for yearly dilated eye examinations. Goals: SBP less than 130, LDL less than 100, FBS less than 140, AC and A1C less than 7%. They are checking their BS daily, will which are reviewed at the office visit. Jun, Type 2 diabetes mellitus with diabetic polyneuropathy (ICD-10 - E11.42) Inspect feet daily for cuts and calluses.Recommend diabetic shoes and inserts to prevent callus formation.Fall precautions. Jun, Type 2 diabetes mellitus with diabetic chronic kidney disease (ICD-10 - E11.22) The patient is instructed on adequate control of hypertension and diabetes, if appropriate. They are also educated on the associated risks of NSAIDs and PPI use with kidney disease. They were instructed on adequate fluid balance and to avoid dehydration. Jun, Chronic kidney disease, stage 3b (ICD-10 - N18.32) The patient is instructed on adequate control of hypertension and diabetes, if appropriate. They are also educated on the associated risks of NSAIDs and PPI use with kidney disease. They were instructed on adequate fluid balance and to avoid dehydration. Jun, 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 (ICD-10 - C90.00) No s/s active disease - known mets to right humerus Jun, Essential (primary) hypertension (ICD-10 - I10) This patient is instructed to consume a healthy, low-fat, low-salt diet. They are also encouraged to continue exercise to achieve/maintain a normal BMI. Jun, Elevated cholesterol (ICD-10 - E78.00) Diet and exercise with continued statin therapy. Jun, Bone metastases (ICD-10 - C79.51) This patient requires opiate use on a daily basis to control pain.This patient does not exhibit drug-seeking or aberrant behavior.This patient is able to continue with ADL, with an adequate quality of life, that they would not be able to achieve without the prescription pain medication.There has been no surgical treatment recommended for this condition.Use of nonopiate treatment should be continued, such as nonstrenuous and aquatic exercises.This patient has a pain management contract and they have been counseled on safe storage of the medication.They have been counseled on the risks of concomitant use with alcohol or sedating meds. PDMP is being followed and this patient's OARRS report is being monitored every 90 days. Dx: bone metastasis, regional pain syndrome Jun, Complex regional pain syndrome type 1 of right upper extremity (ICD-10 - G90.511) Jun, Benign prostatic hyperplasia with lower urinary tract symptoms (ICD-10 - N40.1) Symptoms tolerable, denies hematuria Jun, residential (current) use of anticoagulants (ICD-10 - Z79.01) No bleeding complications noted Continue INR montoring Jun, Medicare annual wellness visit, subsequent (ICD-10 - Z00.00) Personalized health advice was given to the beneficiary including a written plan for screenings discussed and provided. Advanced care planning reviewed and/or information given as requested. Additional counseling was provided here today in regards to, [ ]. The above visit was performed by [ ], under direct supervision of [ ]. Document reviewed and amended by provider signed below. Jun, High risk medication use (ICD-10 - Z79.899) Jun, Mild episode of recurrent major depressive disorder (ICD-10 - F33.0) Healthy diet, keep active and continue SSRI [facility] Other 03-10-2023 Evaluation note* Encounter Date Diagnosis Assessment Notes Treatment Notes Treatment Clinical Notes May, Type 2 diabetes mellitus with diabetic polyneuropathy, 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 - E11.42) [facility] Other 02-08-2023 Evaluation note* Encounter Date Diagnosis Assessment Notes Treatment Notes Treatment Clinical Notes Apr, Type 2 diabetes mellitus with hyperglycemia (ICD-10 - E11.65) [facility] Other 02-07-2023 Evaluation note* Encounter Date Diagnosis Assessment Notes Treatment Notes Treatment Clinical Notes Apr, Type 2 diabetes mellitus with hyperglycemia (ICD-10 - E11.65) [facility] Other 01-10-2023 Evaluation note* Encounter Date Diagnosis Assessment Notes Treatment Notes Treatment Clinical Notes Mar, Essential (primary) hypertension (ICD-10 - I10) This patient is instructed to consume a healthy, low-fat, low-salt diet. They are also encouraged to continue exercise to achieve/maintain a normal BMI. Mar, Chronic kidney disease, stage 3b (ICD-10 - N18.32) Mar, Type 2 diabetes mellitus with hyperglycemia (ICD-10 - E11.65) This patient is following a comprehensive diabetic treatment plan. They are checking their feet daily for calluses and nonhealing ulcers. They are being seen for yearly dilated eye examinations. Goals: SBP less than 130, LDL less than 100, FBS less than 140, AC and A1C less than 7%. They are checking their BS daily, will which are reviewed at the office visit. Mar, Type 2 diabetes mellitus with diabetic chronic kidney disease (ICD-10 - E11.22) The patient is instructed on adequate control of hypertension and diabetes, if appropriate. They are also educated on the associated risks of NSAIDs and PPI use with kidney disease. They were instructed on adequate fluid balance and to avoid dehydration. Mar, Type 2 diabetes mellitus with diabetic polyneuropathy (ICD-10 - E11.42) Inspect feet daily for cuts and ulcerations. Fall precautions Mar, Elevated cholesterol (ICD-10 - E78.00) Diet and exercise with continued statin therapy. Mar, Bone metastases (ICD-10 - C79.51) Close monitoring w/ Oncology. Oxycodone every 6 hours as needed for pain control. Mar, Complex regional pain syndrome type 1 of right upper extremity (ICD-10 - G90.511) Requires opiates on a daily basis. 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 They are instructed to reduce calories, portion sizes and snacks. It is recommended that they exercise for 30 minutes, 3-5 times weekly. 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 INstructed to inspect BM daily for discoloration of bleeding [facility] Other [id number] Instructions* Patient Instructions* Anibal Hermosillo MD - 02/11/2022 4:50 PM EST Repeat myeloma labs in 6 months RTC 1 week after to review labs [facility] of Present illness Narrative* Anibal Hermosillo MD - 02/11/2022 4:44 PM EST Images from the original note were not included. NAME: Rafat Bella [facility]IN[facility] NO.: [id number] DATE OF SERVICE: February 11, 2022 (Mihir) Some elements in this clinic note that are critical to medical decision making have been carefully reviewed and included from a prior clinic note dated: August 03, 2021 (Mihir) Referring Provider: Danilo Thakkar VIRTUAL VISIT PROGRESS NOTE This is a virtual visit using Telephone only for 5 minutes . It required patient-provider interaction for the medical decision making as documented below. CC: Multiple myeloma ASSESSMENT: 82 year old gentleman with multiple myeloma currently being observed off treatment. Previous pulmonary embolus in 2015. He responded very nicely to treatment and was monitored for 2 yearswithout evidence of disease before stopping subsequent therapy since March 2019. M-spike remains 0 Pulmonary embolus in January 2016. Predates his diagnosis of multiple myeloma by nearly a year. Multiple myeloma IgG kappa He has positive bony disease, likely slight renal insufficiency and mild anemia at diagnosis. M spike rapidly increasing 1.05 diagnosis, K light chains 110, lambda light chains 32 at diagnosis.Quantitative IgG was 1820. At diagnosis his skeletal survey showed multiple very small lytic lesions in his upper extremities and his calvarium, PET/CT was only positive in his one large humerus lesion. Currently M-spike is 0 and k/L stable. Bone prophylaxis Previously receieved zolendronic acid. PLAN: Repeat myeloma labs in 6 months RTC 1 week after to review labs TREATMENT TO DATE: Had prophylactic pinning of his right humerus prior to treatment. Following this he completed radiation to the right humerus lesion. Cycle 1 day 1 Velcade Decadron 12/12/16. Cycle 2 day 1 added Revlimid on 01/07/17. Delay because of GI bleed and kyphoplasty hospitalizations Cycle 3 day 1 02/26/17 Withholding Revlimid for this cycle as his Coumadin is being held because of recent GI bleed Cycle 4 day 1 03/25/17. With Revlimid. cycle 5 day 1 next week on 04/29/17. With Revlimid Cycle 6 day 1 05/27/17 with Revlimid Despite no lesions evident on PET/CT. Had compression fracture requiring kyphoplasty shortly after diagnosis. MRI of the thoracic spine showed thecal sac indentation at T8 from a disc problem that does not seem to be related to myeloma. MRI of the cervical spine shows a solitary 8 mm lesion in the mid dens. MRI previously revealed lesion in the odontoid process Completed radiotherapy in early 2018. HPI: Updated Visit, February 11, 2022: Telephone only for 5 minutes Called Ryanne as requested. Reviewed labs from 02/07/2022. 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 He has no complaints. 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 Still off treatment and still has no evidence of disease. Overall is doing well. M spike remain undetectable and all other labs are stable. Cheli is with him. Updated Visit, December 18, 2020: Telephone only for 5 minutes Doing very wel - was on the call too. Labs reviewed and remain stable with no evidence of M-spike. Updated Visit, May 31, 2020: 80 yo gentleman with multiple myeloma that is without significant evidence of active disease following treatment with Revlimid and also radiation through early 2017. M-spike remains undetectable and K/ L ration is normal. He has no significant complaints and since he has been uniterested in addressing his sleep apnea, I didn't broach the subject. Continues to have pain associated with bone involvement from myeloma that caused an old spinal compression fracture. Updated Visit, December 01, 2019: This is a 79 year old male past medical history of hypertension, type 2 diabetes, obstructive sleepapnea, androgen deficiency, chronic renal insufficiency, stage III, diabetic peripheral neuropathy,history of tobacco smoke, pulmonary embolism, prostatic hypertrophy, obesity, hyperlipidemia. Feels lousy, isn't sleeping well - uninterested in CPAP or sleep study. Not interested in neurosurgical intervention or assessment. May not want to follow up with labs. Discussion of results from 12/08/2019: Relayed results to Mrs. Bella. All his indices are stable and M protein is undetectable. He has minimal anemia. He would benefit greatly if he undergoes a sleep study and entertains CPAP machine but he is not interested. Will schedule labs in 6 months 1 week prior to RTC. Updated Visit, June 02, 2019: Returns in follow up he has no detectable M-Sai but has persisting lucencies that are stable. He primarily complains of back pain that shoot down the back of his left leg. He's never had a neurosurgical workup and I think he should consider it. His CT spine shows multiple areas of spondolytic changes in thoracic and lumbar vertebrae. Background history: Had first blood clot in January 2016. He went to [place] [facility] for fatigue and diagnosed with a clot, not sure if it was in his legs or his lungs. Initially presented to me in October 2016 with severe fatigue, anorexia, malaise, myalgias, pain andweakness in his right upper extremity. Skeletal survey confirmed bony myelomatous lesions, very profound lytic lesion in the right humerus. His bone marrow aspirate and biopsy showed very little involvement in his posterior superior iliac spine. There was a small focal plasma cell sheets consistent with involvement by plasma cell neoplasm. Bone marrow aspirate did not have increased plasma cells and karyotype was normal. Had right humerus julian placed by Dr. Gimenez on right arm on 12/13. Raditotherapy 2000cGy in 10 fractions to cervical spine. Began cycle 1 day 1 of Velcade and Decadron in November 2016, for cycle 2 in December added Revlimid. Had hospitalization in January 2017 to [place] and had a kyphoplasty for compression fracture. Had hospitalization in February 2017 for severe anemia secondary to GI bleed. He had a short stay in a rehabilitation facility which necessitated holding his active myeloma therapy. Restarted on 02/25/17. Had a excellent M spike response and was tolerating triple therapy only marginally therefore was given a treatment break in May 2017 which he remains on as of October 2017. HISTORY REVIEWED (electronic chart updated): PAST MEDICAL HISTORY Diagnosis Date Androgen deficiency Anemia Cholelithiasis Chronic kidney disease Stage 3 Diabetic peripheral neuropathy (HCC) Essential hypertension Hyperlipidemia Hypertrophy of prostate without urinary obstruction Malaise and fatigue Monoclonal gammopathy Morbid obesity (HCC) Pulmonary embolism (HCC) Tubular adenoma of colon Type 2 diabetes mellitus (HCC) PAST SURGICAL HISTORY Procedure Laterality Date APPENDECTOMY COLONOSCOPY 07/2013 DIAGNOSTIC ARTHROSCOPY SHOULDER +- SYNOVIAL BX Left TONSILLECTOMY HX FAMILY HISTORY Problem Relation Age of Onset Cancer Mother Colon Cancer Father Colon Cancer Maternal Aunt Social History Tobacco Use Smoking status: Former Types: Cigars Quit date: 12/12/1976 Years since quittin.1 Smokeless tobacco: Never Tobacco comments: Quit 40 years ago Substance Use Topics Alcohol use: Yes Comment: 2 beers per year. Drug use: No Current Outpatient Medications Medication Sig pioglitazone (ACTOS) 15 mg tablet Take 15 mg by mouth daily before breakfast. oxyCODONE IR (ROXICODONE) 5 mg immediate release tablet Take 2 tablets by mouth every 6 hours as needed for up to 30 days. ACCU-CHEK ELIZABETH PLUS TEST STRP test strip BD INSULIN PEN NEEDLE UF 31 gauge x 08/06 ndle gabapentin (NEURONTIN) 300 mg capsule GABAPENTIN ORAL Take by mouth. acyclovir (ZOVIRAX) 400 mg tablet TAKE ONE TABLET BY MOUTH TWICE DAILY escitalopram oxalate (LEXAPRO) 20 mg tablet Take 1 tablet by mouth once daily. predniSONE (DELTASONE) 5 mg tablet Take 1 tablet by mouth once daily. VOLTAREN 1 % topical gel Apply 2 g to affected area four times daily. warfarin (COUMADIN) 5 mg tablet Take 5 mg by mouth once daily. Weds and Sat 2.5 mg glimepiride (AMARYL) 1 mg tablet Take 1 mg by mouth daily with breakfast. senna-docusate (MEDI-NATURAL SENNA-STOOL) 8.6-50 mg per tablet Take 2 tablets by mouth twice daily. linagliptin (TRADJENTA) 5 mg tab Take 5 mg by mouth once daily. ondansetron (ZOFRAN) 4 mg tablet Take 4 mg by mouth every 8 hours as needed. pantoprazole DR (PROTONIX) 40 mg tablet Take 40 mg by mouth once daily. tamsulosin ER (FLOMAX) 0.4 mg cp24 Take 0.4 mg by mouth once daily. atorvastatin (LIPITOR) 20 mg tablet Take 20 mg by mouth once daily. Losartan-Hydrochlorothiazide 100-12.5 mg per tablet Take 1 tablet by mouth once daily. 1/2 tab daily insulin glargine (LANTUS SOLOSTAR) 100 unit/mL (3 mL) inpn Inject 10 Units subcutaneously daily at bedtime. No current facility-administered medications for this visit. ALLERGIES Allergen Reactions Penicillins Swelling Swelling of the mouth. REVIEW OF SYSTEMS: As noted in HPI PHYSICAL EXAMINATION: VIDEO EXAM: (if completed, performed via video enabled technology) No exam performed LABORATORY VALUES: WBC (k/uL) Date Value 02/07/2022 6.51 RBC (m/uL) Date Value 02/07/2022 4.33 Hemoglobin (g/dL) Date Value 02/07/2022 13.2 Hematocrit (%) Date Value 02/07/2022 40.9 MCV (fL) Date Value 02/07/2022 94.5 MCH (pg) Date Value 02/07/2022 30.5 MCHC (g/dL) Date Value 02/07/2022 32.3 RDW-CV (%) Date Value 02/07/2022 12.9 Platelet Count (k/uL) Date Value 02/07/2022 203 MPV (fL) Date Value 02/07/2022 9.7 Glucose (mg/dL) Date Value 02/07/2022 292 (H) BUN (mg/dL) Date Value 02/07/2022 16 Creatinine (mg/dL) Date Value 02/07/2022 1.32 (H) Sodium (mmol/L) Date Value 02/07/2022 136 Potassium (mmol/L) Date Value 02/07/2022 4.3 Chloride (mmol/L) Date Value 02/07/2022 101 CO2 (mmol/L) Date Value 02/07/2022 29 Protein, Total (g/dL) Date Value 02/07/2022 6.9 02/07/2022 6.7 Albumin (g/dL) Date Value 02/07/2022 3.9 Calcium, Total (mg/dL) Date Value 02/07/2022 9.4 Alkaline Phosphatase (U/L) Date Value 02/07/2022 86 Bilirubin, Total (mg/dL) Date Value 02/07/2022 0.3 AST (U/L) Date Value 02/07/2022 21 ALT (U/L) Date Value 02/07/2022 14 M-Protein Concentration Date Value 02/07/2022 0.00 g/dL 07/27/2021 0.00 g/dL 12/11/2020 0.00 gm/dL 05/24/2020 0.00 gm/dL 12/01/2019 0.00 gm/dL 05/20/2019 0.00 gm/dL 03/22/2019 0.00 gm/dL DIAGNOSIS: (C90.01) 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) [C90.01 (ICD-10-CM)] (primary encounter diagnosis) Plan: B2 MICROGLOBULIN B, CBC + DIFF, COMP METABOLIC PANEL, LD LACTATE DEHYDRO, PHOSPHORUS INORGANIC, PROTEIN ELECTROPHORESIS SERUM W/INTERP, MONOCLONAL PROTEIN, SERUM (BLOOD), URIC ACID BLOOD, CALCIUM IONIZED BLOOD, KAPPA/COTA,FREE,SER Anibal Hermosillo MD, CPE [facility]ology [facility] Oncology Services Provided at: [place], [place] CC: Danilo Thakkar MD [address] [facility] [id number] [facility]* Madeleine Schilling MA - 02/11/2022 9:07 AM EST Clinical questionnaires incomplete due to Patient was roomed by provider, phone call. Madeleine Schilling MA [facility] History of Present illness Narrative* Anibal Hermosillo MD - 02/05/2022 12:12 PM EST Patient will need to reschedule - he did not draw labs as requested / planned. [facility] Nurse Note* Kira Dunlap Ma - 02/01/2022 4:14 PM EST Clinical questionnaires incomplete due to Patient was roomed by provider. Kira Dunlap Ma documented [facility]21 Note [id number]#1.00[facility]07-05-2021 [id number]#1.00[facility] 09-20-[address] [facility] SURGERY Clinical Discharge Summary PERSON INFORMATION Name RAFAT BELLA Age 80 Years 1940 Sex MALE Language Egyptian PCP Danilo Thakkar Marital Status [facility] Service Ambulatory Surgery Acct# Arrival 09/20/2020 10:33:00 Visit Reason SURGERY -RIGHT CARPAL TUNNEL RELEASE Acuity LOS 007 04:12 Address: [address] [place] [address] [address] [facility] [address] Comment: PROVIDER INFORMATION VITALS INFORMATION Vital Sign Triage Latest Temp Oral Temp Temporal Temp Intravascular Temp Axillary Temp Rectal 02 Sat 97 % 97 % Respiratory Rate Peripheral Pulse Rate Apical Heart Rate Blood Pressure / 67 mmHg / 67 mmHg Comment: MEDICAL INFORMATION Allergy Info: penicillin Prescriptions Given: acetaminophen-codeine (Tylenol with Codeine #3 oral tablet) 1 tab(s) Oral Every 6 hours as needed for pain., Home script Dr. Richards 09/20/2020 atorvastatin (atorvastatin 20 mg oral tablet) 1 tab(s) Oral every day. escitalopram (escitalopram 10 mg oral tablet) 1 tab(s) Oral every day. gabapentin (gabapentin 300 mg oral capsule) 1 cap(s) Oral 3 times a day. glimepiride (glimepiride 2 mg oral tablet) 1 tab(s) Oral every day. hydrochlorothiazide-losartan (hydrochlorothiazide-losartan 12.5 mg-100 mg oral tablet) 1 tab(s) Oral every day. insulin glargine (Lantus Solostar Pen 100 units/mL subcutaneous solution) 50 unit(s) Subcutaneous once a day (at bedtime). linagliptin (Tradjenta 5 mg oral tablet) 1 tab(s) Oral every day. oxyCODONE (oxyCODONE 5 mg oral tablet) 2 tab(s) Oral Every 6 hours as needed for pain. tamsulosin (tamsulosin 0.4 mg oral capsule) 1 cap(s) Oral every day. warfarin (warfarin 5 mg oral tablet) 1 tab(s) Oral Friday, Friday and Friday. warfarin (warfarin 5 mg oral tablet) 0.5 tab(s) Oral Friday, Friday, , and Friday. Medication List: Medications to Continue That Have Not Changed Other Medications acetaminophen-codeine (Tylenol with Codeine #3 oral tablet) 1 tab(s) Oral Every 6 hours as needed for pain. atorvastatin (atorvastatin 20 mg oral tablet) 1 tab(s) Oral every day. escitalopram (escitalopram 10 mg oral tablet) 1 tab(s) Oral every day. gabapentin (gabapentin 300 mg oral capsule) 1 cap(s) Oral 3 times a day. glimepiride (glimepiride 2 mg oral tablet) 1 tab(s) Oral every day. hydrochlorothiazide-losartan (hydrochlorothiazide-losartan 12.5 mg-100 mg oral tablet) 1 tab(s) Oral every day. insulin glargine (Lantus Solostar Pen 100 units/mL subcutaneous solution) 50 unit(s) Subcutaneous once a day (at bedtime). linagliptin (Tradjenta 5 mg oral tablet) 1 tab(s) Oral every day. oxyCODONE (oxyCODONE 5 mg oral tablet) 2 tab(s) Oral Every 6 hours as needed for pain. tamsulosin (tamsulosin 0.4 mg oral capsule) 1 cap(s) Oral every day. warfarin (warfarin 5 mg oral tablet) 1 tab(s) Oral Friday, Friday and Friday. warfarin (warfarin 5 mg oral tablet) 0.5 tab(s) Oral Friday, Friday, , and Friday. Medications to Continue That Have Not Changed Other Medications acetaminophen-codeine (Tylenol with Codeine #3 oral tablet) 1 tab(s) Oral Every 6 hours as needed for pain. atorvastatin (atorvastatin 20 mg oral tablet) 1 tab(s) Oral every day. escitalopram (escitalopram 10 mg oral tablet) 1 tab(s) Oral every day. gabapentin (gabapentin 300 mg oral capsule) 1 cap(s) Oral 3 times a day. glimepiride (glimepiride 2 mg oral tablet) 1 tab(s) Oral every day. hydrochlorothiazide-losartan (hydrochlorothiazide-losartan 12.5 mg-100 mg oral tablet) 1 tab(s) Oral every day. insulin glargine (Lantus Solostar Pen 100 units/mL subcutaneous solution) 50 unit(s) Subcutaneous once a day (at bedtime). linagliptin (Tradjenta 5 mg oral tablet) 1 tab(s) Oral every day. oxyCODONE (oxyCODONE 5 mg oral tablet) 2 tab(s) Oral Every 6 hours as needed for pain. tamsulosin (tamsulosin 0.4 mg oral capsule) 1 cap(s) Oral every day. warfarin (warfarin 5 mg oral tablet) 1 tab(s) Oral Friday, Friday and Friday. warfarin (warfarin 5 mg oral tablet) 0.5 tab(s) Oral Friday, Friday, , and Friday. Medications to Continue That Have Not Changed Other Medications acetaminophen-codeine (Tylenol with Codeine #3 oral tablet) 1 tab(s) Oral Every 6 hours as needed for pain. atorvastatin (atorvastatin 20 mg oral tablet) 1 tab(s) Oral every day. escitalopram (escitalopram 10 mg oral tablet) 1 tab(s) Oral every day. gabapentin (gabapentin 300 mg oral capsule) 1 cap(s) Oral 3 times a day. glimepiride (glimepiride 2 mg oral tablet) 1 tab(s) Oral every day. hydrochlorothiazide-losartan (hydrochlorothiazide-losartan 12.5 mg-100 mg oral tablet) 1 tab(s) Oral every day. insulin glargine (Lantus Solostar Pen 100 units/mL subcutaneous solution) 50 unit(s) Subcutaneous once a day (at bedtime). linagliptin (Tradjenta 5 mg oral tablet) 1 tab(s) Oral every day. oxyCODONE (oxyCODONE 5 mg oral tablet) 2 tab(s) Oral Every 6 hours as needed for pain. tamsulos (more content not included)...[facility] Diagnosis 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 (HCC)- Primary Multiple myeloma, without mention of having achieved remission documented in this encounter [facility] note* Diagnosis 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) [C90.01 (ICD-10-CM)]- Primary Multiple myeloma in remission documented in this encounter [facility] noteNo [facility] Other Evaluation note* Diagnosis Parotid mass- Primary Swelling, mass, or lump in head and neck documented in this encounter [facility] Work Phone: Evaluation note* Diagnosis Onset Date Resolution Status Benign prostatic hyperplasia with lower urinary tract symptoms acute Chronic kidney disease acute Elevated cholesterol acute Type 2 diabetes mellitus with diabetic polyneuropathy acute Type 2 diabetes mellitus with hyperglycemia acute HTN (hypertension) chronic Multiple myeloma [facility] Work Phone: Evaluation note* Diagnosis 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 (HCC)- Primary Multiple myeloma, without mention of having achieved remission Flank pain Abdominal pain, unspecified site Mild episode of recurrent major depressive disorder (HCC) Thrombocytopenia (HCC) Thrombocytopenia, unspecified Stage 3b chronic kidney disease (HCC) Stage 3a chronic kidney disease (HCC) documented in this encounter [facility] Narrative - Reported* Type Description Date Medical History Obesity Medical History Malignant neoplasm metastatic to bone Medical History Hyperlipidemia type II Medical History Essential hypertension Medical History Carpal tunnel syndrome on right Medical History Multiple myeloma in remission Medical History Complex regional jasmeet n syndrome type 1 of right upper extremity Medical History Benign prostatic hyp erplasia with lower urinary tract symptoms Medical History Nocturia Medical History History of pulmonary embolism Medical History Cholelithiasis Surgical History appendectomy Surgical History Procedure:Appendectomy;Disease: Surgical History Procedure:colonoscopies;Disease : Surgical History tonsillectomy Surgical History Procedure:Rotator Cuff Repair;D isease: Surgical History shoulder arthroscopy Surgical History Procedure:Tonsillectomy;Disease : Surgical History right humerus fixation Surgical History L1 kyphoplasty L1 01/31/17 Hospitalization History see above Hospitalization History immmune system weakness [facility] Other History general Narrative - Reported* Type Description Date Medical History Obesity Medical History Malignant neoplasm metastatic to bone Medical History Hyperlipidemia type II Medical History Essential hypertension Medical History Carpal tunnel syndrome on right Medical History Multiple myeloma in remission Medical History Complex regional jasmeet n syndrome type 1 of right upper extremity Medical History Benign prostatic hyp erplasia with lower urinary tract symptoms Medical History Nocturia Medical History History of pulmonary embolism Medical History Cholelithiasis Surgical History appendectomy Surgical History Procedure:Appendectomy;Disease: Surgical History Procedure:colonoscopies;Disease : Surgical History tonsillectomy Surgical History Procedure:Rotator Cuff Repair;D isease: Surgical History shoulder arthroscopy Surgical History Procedure:Tonsillectomy;Disease : Surgical History right humerus fixation Surgical History L1 kyphoplasty L1 01/31/17 Surgical History FNA left postauricular mass 2022 Hospitalization History see above Hospitalization History immmune system weakness [facility] Other History of Present illness Narrative* Julian Juarez MD - 05/13/2023 1:00 PM EST CC: lump behind ear Consulted by: dr browning HPI: 6 momths of lump behind ear Not much pain Very little Tender if he lays on it Hasn't seen much change in the color No prior skin cancers on the left side Past medical history: mulitple myeloma, + HTN, + DM, + warfarin (clots) Past surgical history: back surgery, t and a Social history: smoking, drinking, lives with, independent Family history: Reviewed and not relevant to the presenting complaint Current medications: Reviewed as noted in current orders Allergies: Reviewed and as noted in current orders ROS: All other systems have been reviewed and are negative for complaint. I personally reviewed theintake form that was scanned in today PE: CONSTITUTIONAL: Vitals -reviewed from intake field, well developed, well nourished. VOICE: RESPIRATION: Breathing comfortably, no stridor. CV: No clubbing/cyanosis/edema in hands. EYES: EOM Intact, sclera normal. NEURO: Alert and oriented times 3, Cranial nerves II-XII intact and symmetric bilaterally. HEAD AND FACE: Symmetric facial features, no masses or lesions, sinuses nontender to palpation. SALIVARY GLANDS: Parotid and submandibular glands normal bilaterally. Except 3 cm left infraauricular firm mildy tender parotid mass EARS: Normal external ears, external auditory canals, and TMs to otoscopy, normal hearing to whispered voice. NOSE: External nose midline, anterior rhinoscopy is normal with limited visualization to the anterior aspect of the inferior turbinates. No lesions noted. ORAL CAVITY/OROPHARYNX/LIPS: Normal mucous membranes, normal floor of mouth/tongue/OP, no masses orlesions are noted. PHARYNGEAL TINAJERO AND NASOPHARYNX: No masses noted. Mucosa appears clean and moist NECK/LYMPH: No LAD, no thyroid masses. 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 Outside pathology shows a to be of undetermined significance Imp: left parotid mass I talked with the patient in detail about options observation and the official recommendation of surgical removal especially in light of its change in size tenderness and the atypical noted on biopsy He agrees to have it removed We likely will keep him overnight given agent medical comorbidities and likely replace the drain given that he is on warfarin and may need to be converted to Lovenox We will have them surgically cleared Lengthy and detailed discussion was held with patient regarding parotidectomy including risk benefits and alternatives including risks to the facial nerve was discussed. This includes partial or complete, temporary or permanent facial paralysis and the implications of each. They understand surgicalincisions, numbness of the region, disfigurement, sialocele, salivary fistula, Charlette's syndrome and perioperative risks given any associated medical comorbidities. Length of surgery, expected outcomeshave all reviewed in detail option reviewed. Verbal consent was obtained A/P: documented in this [facility] Work Phone: Reason for referral (narrative)* Diagnostic Procedure Only (Routine) - Additional Clinical Info Needed Specialty Diagnoses / Procedures Referred By Contac t Referred To Contact MOLECULAR & FUNCTIONAL IMAGING Diagnoses 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 (HCC) Procedures NM PET/CT WHOLE BODY SUBSEQUENT PET IMAGING FOR CT ATTENUATION WHOLE BODY Anibal Hermosillo MD [address] [place] [address] [place] [address] Molecular & Functional Imaging [address] [place] [address] Referral ID Status Reason Start Date Expiration Date Visits Requested Visits Authorized [id number] Additional Clinical Info Needed Auto-Generat ed Referral 08/11/2023 09/09/2024 1 1 [facility] Summary Purpose Family History No Family History Records Found Relationship Condition Age at Onset Recorded Date/T mayank father Unknown Malignant neoplasm Unknown Not Specified Unknown Diabetes mellitus Unknown sister Unknown Advance Directives No Advanced Directives Records Found Advance Directive Response Recorded Date/ Time Advance Directives Yes January 11:21am Chief Complaint and Reason for Visit Chief Complaint Amb Documentation 3 month follow up Reason for Visit Benign prostatic hyp erplasia with lower urinary tract symptoms Chronic kidney disease Elevated cholesterol Type 2 diabetes mellitus with diabetic polyneuropathy Type 2 diabetes mellitus with hyperglycemia HTN (hypertension) Multiple myeloma Additional Source Comments (unrecognized sect ion and content) No Status Records FoundNo Status Records FoundNo Status Records FoundNo Status Records FoundNo Status Records FoundNo Status Records FoundNo Status Records Found INFORMATION SOURCE (unrecogn ized section and content) DATE CREATED AUTHOR 09/15/2017 [facility] DATE CREATED AUTHOR AUTHOR'S ORGANIZ ATION 09/26/2020 [facility] DATE CREATED AUTHOR AUTHOR'S ORGANIZ ATION 08/30/2022 [facility] DATE CREATED AUTHOR AUTHOR'S ORGANIZ ATION 05/20/2023 [facility] DATE CREATED AUTHOR AUTHOR'S ORGANIZ ATION 05/24/2023 [facility] DATE CREATED AUTHOR AUTHOR'S ORGANIZ ATION 08/10/2023 [facility] EPIC DATE CREATED AUTHOR AUTHOR'S ORGANIZ ATION 08/13/2023 [facility] Source Comments (unrecognize d section and content) In the event this informatio n is protected by the Federal Confidentiality of Alcohol and Drug Abuse Patient Records regulations: The Federal rules restrict any use of the information to criminally investigate or prosecute any alcohol or drug abuse patient.[facility] the event this information is protected by the Federal Confidentiality of Alcohol and Drug Abuse Patient Records regulations: The Federal rules restrict any use of the information to criminally investigate or prosecute any alcohol or drug abuse patient.[facility] HospitalIn the event this information is protected by the Federal Confidentiality of Alcohol and Drug Abuse Patient Records regulations: The Federal rules restrict any use of the information to criminally investigate or prosecute any alcohol or drug abuse patient.[facility] Reason for Visit (unrecogniz ed section and content) Reason Comments Established Patient Reason Comments Mass Back of ear Reason Comments Multiple Myeloma 6 month follow up Care Teams (unrecognized sec tion and content) 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 Relationship Specialty Start Date End Date Danilo Thakkar DO PCP - General Internal Medicine 10/29/16 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 Relationship Specialty Start Date End Date Danilo Thakkar DO PCP - General Internal Medicine 10/29/16 Team Status: Active Member Role Status Dates Danilo Thakkar DO Primary Care Provider Active Team Status: Active Member Role Status Dates Danilo Thakkar DO Primary Care Provider Active Start: May 26, 2023 KIRIT Godinez Attending Provider Active Start : May 26, 2023 Team Status: Inactive Member Role Status Dates Danilo Thakkar DO Primary Care Provide r, Attending Provider Active Start: July 04, 2023 End: July 04, 2023 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 Relationship Specialty Start Date End Date Danilo Thakkar DO PCP - General Internal Medicine 10/29/16 Goals (unrecognized section and content) Goals may be documented in a n alternate section FOR RECORDS PERTAINING TO PATIENTS WHO ARE OR HAVE BEEN ENROLLED IN A CHEMICAL DEPENDENCY/SUBSTANCEABUSE PROGRAM, SOME INFORMATION MAY BE OMITTED. This clinical summary was aggregated from multiple sources. Caution should be exercised in using it in the provision of clinical care. This summary normalizes information from multiple sources, and as a consequence, information in this document may materially change the coding, format and clinical context of patient data. In addition, data may be omitted in some cases. CLINICAL DECISIONS SHOULD BE BASED ON THE PRIMARY CLINICAL RECORDS. [employer] [facility]. provides no warranty or guarantee of the accuracy or completeness of information in this document.
== END 2023-08-15 16:56 | disposition home or self-care (01) ==
LOC: RAD 16:57
PROVIDERS: PCP Internal Medicine; Visit Provider Internal Medicine
DX: M54.9 Dorsalgia, unspecified (principal); C90.00 Multiple myeloma not having achieved remission; M48.56XA Collapsed vertebra, not elsewhere classified, lumbar region, initial encounter for fracture; M43.06 Spondylolysis, lumbar region; M51.36 Other intervertebral disc degeneration, lumbar region; M51.34 Other intervertebral disc degeneration, thoracic region
CPT/HCPCS: 71046; 72072; 72100

== ENCOUNTER 2023-08-25 03:08 | Outpatient (RCR) | payer MEDICARE, SELFPAY | END 2023-09-19 10:02 | disposition home or self-care (01) | LOC: MM 03:08 | PROVIDERS: PCP Internal Medicine; Visit Provider Internal Medicine | DX: Z51.81 Encounter for therapeutic drug level monitoring (principal); Z79.01 Long term (current) use of anticoagulants; I82.409 Acute embolism and thrombosis of unspecified deep veins of unspecified lower extremity | CPT/HCPCS: 85610; G0463 ==

== ENCOUNTER 2023-09-22 00:16 | Outpatient (RCR) | payer MEDICARE, SELFPAY | END 2023-10-22 09:52 | disposition home or self-care (01) | LOC: MM 00:16 | PROVIDERS: PCP Internal Medicine; Visit Provider Internal Medicine | DX: Z51.81 Encounter for therapeutic drug level monitoring (principal); Z79.01 Long term (current) use of anticoagulants ==

== ENCOUNTER 2023-10-16 15:07 | Outpatient (OUT) | payer MEDICARE, SELFPAY ==
--- OUTSIDE RECORDS SUMMARY | 2023-10-16 15:28 | XMS_ITS | CCD ---
Author Organization [facility] ion Partnership [facility] [employer] Care Team Providers Care Goal Umpire Name Role Phone Adamowicz, Shawn Unavailable Unavailable Adamowicz, Shawn Unavailable Unavailable Adamowicz, Shawn Unavailable Unavailable DANILO THAKKAR~[id number] UNKNOWN Unavailable Unavailable Adamowicz, Shawn Unavailable Unavailable Adamowicz, Shawn Unavailable Unavailable Esthericz, Shawn Unavailable Unavailable DANILO THAKKAR~[id number] UNKNOWN Unavailable Unavailable Sujit Jefferson~[phone] UNKNOWN Unavailable Unavailable Danilo Thakkar DO Primary Care Provider Danilo Thakkar DO Primary Care Provider Danilo Thakkar Unavailable FAWWAD, IVY H Attending Unavailable FAWWAD, [...] BALL, DR LAMB Primary Care Unavailable FAWWAD, H Attending Unavailable FAWWAD, IVY H Admitting Unavailable BALL, DR LAMB Primary Care Unavailable FAWWAD, IVY H Attending Unavailable FAWWAD, IVY H Admitting Unavailable BALL, DR LAMB Primary Care Unavailable Unavailable Primary Care Provider Unavailabl e REZAEE, JULIAN P Attending Unavailable REZAEE, JULIAN P Admitting Unavailable REZAEE, JULIAN P Attending Unavailable Ball DO, Danilo E Primary Care Provider DANILO THAKKAR Primary Care Unavailable BALL, DANILO E Primary Care Unavailable ABHYANKAR, ANIBAL Attending Unavailable BALL, DANILO E Primary Care Unavailable BALL, DANILO E Primary Care Unavailable ABHYANKAR, ANIBAL Referring Unavailable BALL, DANILO E Primary Care Unavailable ABHYANKAR, ANIBAL Referring Unavailable BALL, DANILO E Primary Care Unavailable ABHYANKAR, ANIBAL Attending Unavailable WEN ALDRIDGE Attending Unavailable TIMMIDEEPTHI Rojas Attending Unavailable WEN ALDRIDGE Attending Unavailable DIEGO RICHARDS Attending Unavailable DEAN, DIEGO Pompa Attending Unavailable DEAN, DIEGO Pmopa Attending Unavailable Allergies Allergy Classification Reported Allergen(s) Allergy Type Date of Onset Reaction(s) Facility Penicillins (antibiotic) (1 source) Penicillins Drug Allergy 7 Swelling [facility] Work Phone: (10 sources) Penicillins; Translations: [PENICILLINS] Drug Allergy 4 Swelling, Unknown [facility] Work Phone: (20 sources) penicillAMINE; Translations: [PENICILLAMINE] Drug Allergy 4 Unknown [place] Other (10 sources) Penicillins Propensity to adverse reactions Unknown [place] Other (1 source) Penicillins Drug allergy (disorder) [address] [facility] Repository (14 sources) Lisinopril; Translations: [LISINOPRIL] Drug Allergy 3 Unknown [facility] (11 sources) Penicillin V Drug Allergy 4 Unknown, Unknown Reaction [facility] Medications Current Medications Medication Drug Class(es) Dates Sig (Normalized) Sig (Original) Accu-Chek Elizabeth Plus - (8 sources) Accu-Chek Elizabeth Plus - USE AND DISCARD 1 TEST STRIP TO CHECK HOME BLOOD SUGAR TWO TIMES A DAY for 90 Active acyclovir 400 mg oral tablet (4 sources) Herpesvirus Nucleoside Analog DNA Polymerase Inhibitor, [...] acid 4700 mg / polyethylene glycol 3350 842707 mg / potassium chloride 1015 mg / sodium ascorbate 5900 mg / sodium chloride 2690 mg / sodium sulfate 7500 mg powder for oral solution (15 sources) Osmotic Laxative, Vitamin C Start: 07-28-2013 peg-sod [id number]- C (MoviPrep) 100-7.5-2.691 gram solution Take by mouth. 0 07/28/2013 Active Start: 07-28-2013 MoviPrep 100 G M as directed Orally 1 for 1 July, Not-Taking atorvastatin 20 mg oral tablet (20 sources) HMG-CoA Reductase Inhibitor Start: 08-15-2023 take 1 tablet by mouth once daily in the evening Atorvastatin Active 0 .ROUTE .COMPLEX 90 August 15, 2023 8:39am TAKE 1 TABLET BY MOUTH ONCE DAILY IN THE EVENING Start: 12-12-2016 End: 08-15-2023 take 20 mg by mouth once daily Atorvastatin Discontinu ed 20 MG PO Daily December 12, 2016 12:00am August 15, 2023 8:39am Comment on above: Take 20 mg by mouth once daily. diclofenac sodium 0.01 mg/mg topical gel (4 sources) Nonsteroidal Anti-inflammatory Drug Start: 04-18-19 18 apply 2 g topically four times daily VOLTAREN 1 % topical gel Apply 2 g to affected area four times daily. 0 04/18/2017 Active Comment on above: Apply 2 g to affecte d area four times daily. docusate sodium 50 mg / sennosides, prison 8.6 mg oral tablet (5 sources) Start: 03-11-20 17 take 2 tablets by mouth twice daily senna-docusate (MEDI-NATURAL SENNA-STOOL) 8.6-50 mg per tablet Take 2 tablets by mouth twice daily. 120 tablet 5 03/11/2017 Active Comment on above: Take 2 tablets by mo [facility] twice daily. escitalopram 10 mg oral tablet (20 sources) Serotonin Reuptake Inhibitor Start: 06-04-19 24 take 10 mg by mouth once daily Escitalopram Oxalate Active 10 MG PO Daily June 04, 2023 12:00am Start: 01-13-2023 escitalopram ( Lexapro) 10 mg tablet Take by mouth. 0 01/13/2023 Active Start: 05-22-2017 take 1 tablet by [facility] once daily escitalopram oxalate (LEXAPRO) 20 mg tablet Indications: 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 (HCC) , Chronic pain due to neoplasm , Malaise and fatigue Take 1 tablet by mouth once daily. 30 tablet 1 05/22/2017 Active Comment on above: Take 1 tablet by keena once daily. gabapentin 300 mg oral capsule (20 sources) Anti-epileptic Agent Start: 07-28-2023 take 1 capsule by mouth three times daily Gabapentin Active 0 .ROUTE .COMPLEX 270 July 28, 2023 1:16pm TAKE 1 CAPSULE BY MOUTH THREE TIMES DAILY Start: 10-22-2017 End: 07-28-2023 gabapentin (NEURONTIN) 300 m g capsule Start: 10-22-2017 gabapentin (Ne urontin) 100 mg [...] pen injector (20 sources) Insulin Analog Start: 07-07-2023 Insulin Glargine (Lantus Solostar U-100 Insulin) 100 unit/mL (3 mL) insulin pen Active 30 UNIT SUBCUT Twice daily July 07, 2023 6:35pm Start: 07-01-2023 End: 07-07-2023 Insulin Glargine (Lantus Shakira ostar U-100 Insulin) 100 unit/mL (3 mL) insulin pen Discontinued 0 .ROUTE .COMPLEX 45 July 01, 2023 4:28pm July 07, 2023 6:36pm INJECT 50 UNITS SUBCUTANEOUSLY ONCE A DAY Start: 06-04-2023 End: 07-01-2023 inject 30 [IU] by subcutaneous injection twice daily Insulin Glargine Discontinued 30 UNIT SUBCUT Twice daily June 04, 2023 9:27am July 01, 2023 4:28pm Start: 02-18-2017 End: 06-04-2023 inject 10 [IU] by subcutaneous injection once daily at bedtime Insulin Glargine Discontinued 10 UNIT SUBCUT Daily at bedtime February 18, 2017 1:00am June 04, 2023 [...] 10 units Active inject 20 [IU] by agllegos bcutaneous injection twice daily Lantus 100 UNIT/ML 20units Subcutaneous twice daily 10 units Active Comment on above: Inject 10 Units subc utaneously daily at bedtime. linagliptin 5 mg oral tablet (20 sources) Dipeptidyl Peptidase 4 Inhibitor Start: 3 take 1 tablet by mouth once daily Linagliptin (Tradjenta) 5 mg tablet Active 5 MG PO Daily June 04, 2023 12:00am Comment on above: Take 5 mg by mouth o nce daily. losartan potassium 50 mg oral tablet (20 sources) Angiotensin 2 Receptor Salomón Start: 4 take 50 mg by mouth twice daily Losartan Active 50 MG PO Twice daily June 04, 2023 12:00am Start: 01-13-2023 losartan (Coza ar) 50 mg tablet Take by mouth. 0 01/13/2023 Active ondansetron 4 mg oral tablet (4 sources) Serotonin-3 Receptor Antagonist Start: 02-06-2017 take [...] Start: 06-06-2020 take 2 tablets by mo [facility] every six hours as needed oxyCODONE IR [...] 0 Active take 1 tablet by keena every six hours oxyCODONE HCl 5 MG 1 tablet as needed Orally every 6 hrs Active Comment on above: Take 2 tablets by mo ut every 6 hours as needed for up to 30 days. pantoprazole 40 mg delayed release oral tablet (20 sources) Proton Pump Inhibitor Start: End: take 1 tablet by mouth once daily pantoprazole DR (PROTONIX) 40 mg tablet Take 40 mg by mouth once daily. 0 02/18/2017 Active Comment on above: Take 40 mg by mouth once daily. pioglitazone 15 mg oral tablet (4 sources) Peroxisome Proliferator Receptor alpha Agonist, Peroxisome Proliferator Receptor gamma Agonist, Thiazolidinedione Start: take 1 tablet by mouth once daily before breakfast pioglitazone (ACTOS) 15 mg tablet Take 15 mg by mouth daily before breakfast. 0 06/03/2021 Active Comment on above: Take 15 mg by mouth daily before breakfast. predniSONE 5 mg oral tablet (4 sources) Start: take 1 tablet by mouth once daily predniSONE (DELTASONE) 5 mg tablet Indications: 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 (HCC) , Chronic pain due to neoplasm , Malaise and fatigue Take 1 tablet by mouth once daily. 30 tablet 0 05/22/2017 Active Comment on above: Take 1 tablet by keena once daily. tamsulosin hydrochloride 0.4 mg oral [...] tablet (20 sources) Vitamin K Antagonist Start: 03-31-2017 warfarin (COUMADIN) 5 mg tablet Take 5 mg by mouth once daily. Weds and Sat 2.5 mg 0 03/31/2017 Active Start: 12-12-2016 End: 02-18-2017 take 5.5 [...] / oxyCODONE hydrochloride 5 mg oral tablet (6 sources) Opioid Agonist Start: 12-13-2016 End: 06-04-2023 take 1-2 tablets by mouth every four to six hours as needed for pain Oxycodone-Acetami nophen (Percocet) 5-325 mg tablet Discontinued 1 - 2 TAB PO EVERY 4-6 HOURS September 09, 2017 June 04, 2023 9:29am 1-2 tabs PO Q 4-6 hours as needed for pain amLODIPine 5 mg oral tablet (3 sources) Dihydropyridine Calcium Channel [place] Start: 02-18-2017 End: 06-04-2023 take 5 mg by mouth once daily Amlodipine Discontinued 5 MG PO Daily February 18, 2017 1:00am June 04, 2023 9:29am aspirin 81 mg delayed release oral tablet (3 sources) Platelet Aggregation Inhibitor, Nonsteroidal Anti-inflammatory Drug Start: 12-12-2016 End: 02-18-2017 take 1 tablet by mouth once daily Aspirin (Aspir-Low) 81 mg Tablet,Delayed Release (Dr/Ec) Discontinued 1 TAB PO Daily December 12, 2016 12:00am February 18, 2017 1:26pm doxycycline hyclate 100 mg oral tablet (6 sources) Tetracycline-class Drug Start: 09-09-2017 End: 06-04-2023 take 100 mg by mouth twice daily Doxycycline Hyclate Discontinued 100 MG PO Twice daily 10 01September 09, 2017 12:00am June 04, 2023 9:29am Start: 12-13-2016 End: 12-20-2016 take 100 mg by mouth twice daily Doxycycline Hyclate Discontinued 100 MG PO Twice daily 14 7 December 13, 2016 12:00am December 20, 2016 12:04am 24 hr felodipine 5 mg extended release oral tablet (3 sources) Dihydropyridine Calcium Channel Salomón Start: 12-12-2016 End: 02-18-2017 take 5 mg by mouth once daily Felodipine Discontinued 5 MG PO Daily December 12, 2016 12:00am February 18, 2017 1:31pm hydroCHLOROthiazide 12.5 mg / losartan potassium 100 mg oral tablet (7 sources) Thiazide Diuretic, Angiotensin 2 Receptor Salomón [...] / metFORMIN hydrochloride 1000 mg oral tablet (3 sources) Biguanide, Dipeptidyl Peptidase 4 Inhibitor Start: 12-12-2016 End: 06-04-2023 Linagliptin-Metf ormin Discontinued 1 TAB PO 1-2 TIMES DAILY December 12, 2016 12:00am June 04, 2023 9:29am LORazepam (14 sources) Benzodiazepine LORazepam Not-Taking Multivitamin preparation (3 sources) Start: 12-12-2016 End: 06-04-2023 take 1 tablet [...] 7 07-03-2023 Chronic Coagulation and hemorrhagic disorders (6 sources) Thrombocytopenic disorder; Translations: [Thrombocytopenia, unspecified] Onset: 4 04-09-2023 Chronic Deficiency and other anemia (3 sources) Anemia due to blood loss; Translations: [Iron [...] sources) Hypercholesterolemia; Translations: [Pure hypercholesterolemia, unspecified] Onset: Chronic Essential hypertension (20 sources) Essential hypertension; [...] lower urinary tract symptoms] Chronic Immunity disorders (4 sources) Monoclonal gammopathy (clinical); Translations: [Hypergammaglobulinemi a, unspecified] Onset: 7 11-28-2016 Chronic Immunizations and screening for infectious disease (8 sources) Vaccination given; Translations: [Encounter for immunization] Episodic Lymphadenitis (1 source) Localized enlarged lymph nodes Episodic Malaise and fatigue (20 sources) Malaise and fatigue; Translations: [Other malaise] Onset: 4 11-05-2016 Episodic Mood disorders (20 sources) Recurrent major depressive episodes, mild ; [...] of lymphoid, hematopoietic and related tissues] Episodic Nonspecific chest pain (4 sources) Chest wall pain; Translations: [Other chest pain] 08-15-2023 Episodic Osteoarthritis (8 sources) Osteoarthritis; Translations: [Polyosteoarthritis, unspecified] Chronic Other aftercare (18 sources) Long-term current use of insulin; 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] Episodic Other aftercare (20 sources) Long-term current use of anticoagulant; Translations: [alf (current) use of anticoagulants] 06-04-2023 Episodic Other aftercare (5 sources) alf (current) use of anticoagulants; Translations: [SHELTER CURRNT USE ANTICOAGULANTS] Onset: 3 Episodic Other aftercare (1 source) Other mcfp (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 therapy Episodic Other aftercare (5 [...] of falling] Episodic Other nervous system disorders (4 sources) Pain due to neoplastic disease; Translations: [Neoplasm related pain (acute) (chronic)] Onset: 8 05-07-2017 Chronic Other nervous system disorders (20 sources) Carpal tunnel syndrome; Translations: [Carpal tunnel syndrome, right upper limb] Chronic Other nervous system disorders (18 sources) Cubital tunnel syndrome; Translations: [Lesion of ulnar nerve, right upper limb] Chronic Other nervous system disorders (20 sources) Carpal tunnel syndrome of right wrist; [...] Spondylosis; intervertebral disc disorders; other back problems (20 sources) Prolapsed thoracic intervertebral disc; Translations: [Other intervertebral disc displacement, thoracic region] 06-04-2023 Chronic Spondylosis; intervertebral disc disorders; other back problems (6 sources) Backache; Translations: [Back pain of thoracolumbar region] 08-15-2023 Episodic Past or Other Problems Problem Classification Problem Date Documented Date Episodic/Chronic Acute posthemorrhagic anemia (8 sources) Acute posthemorrhagic anemia; Translations: [Acute posthemorrhagic anemia] Onset: 02-27-2017 Episodic Chronic kidney disease (4 sources) Chronic kidney disease Deficiency and other anemia (11 sources) Anemia; Translations: [Anemia, unspecified] Onset: 10-16-2016 06-04-2023 Episodic Inflammation; infection of eye (except that caused by tuberculosis or sexually transmitteddisease) (8 sources) Acute conjunctivitis; Translations: [Unspecified acute conjunctivitis, right eye] Resolved: 09-16-2020 Episodic Inflammatory conditions of male genital organs (8 sources) Acute prostatitis; Translations: [Acute prostatitis] Onset: 06-13-2017 Episodic Other aftercare (2 sources) 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 INDICATION: Subsequent treatment strategy. TECHNIQUE: Radiopharmaceutical was administered IV followed about 60 minutes later by PET imaging from vertex to feet. Free breathing, low dose CT of the same body region was acquired without IV contrast for attenuation correction and anatomic localization. * CT Dose-Length Product (DLP): 620 mGy*cm * CT Dose Reduction Employed: Yes * Blood glucose (mg/dL): 223 * Radiopharmaceutical Dose: 17.6 mCi * Radiopharmaceutical: O19-[id number] (FDG) COMPARISON: 12/05/2016 CORRELATION: CT spine 05/26/2019 RESULT: REFERENCES: SUV reference values: * Blood pool (descending aorta) activity: SUVmax 2.7 * Background liver activity: SUVmax 3.6 Truss Maker (topogram) images: Unremarkable. Notes and limitations: * Standardized uptake values indicate the highest activity concentration (SUVmax) at a given location but can be variable and are not absolute. * Physiologic/non-neoplastic uptake is common in the brain, extraocular muscles, oral cavity, tonsils, salivary glands, vocal cords, myocardium, liver, GI tract, urinary tract, and bone marrow among others. Certain regions and organ systems can have more intense uptake, which could confound or obscure some pathology. * Unenhanced imaging is limited for the evaluation of some pathology and the acquired CT was not designed to produce or replace diagnostic CT scan quality. * PET-CT is often not sensitive for pulmonary nodules less than 8 mm. HEAD AND NECK: Imaged Head: Physiologic uptake in the brain with no definite evidence of focal abnormalities Neck and Lymph Nodes: No abnormal uptake. Thyroid: No abnormal uptake. CHEST: Lungs and Airways: No abnormal uptake. Pleura and Pericardium: No abnormal uptake. Cardiovascular: No abnormal uptake. Coronary artery calcifications. Mediastinum and Lymph Nodes: No abnormal uptake. ABDOMEN AND PELVIS: Hepatobiliary: No abnormal uptake. Cholelithiasis. Spleen: No abnormal uptake. No splenomegaly. Pancreas: No abnormal uptake. Adrenals: No abnormal uptake. Urinary Tract: No abnormal uptake. GI Tract: No abnormal uptake. Peritoneum: No abnormal uptake. Vasculature: No abnormal uptake. Retroperitoneum and Lymph Nodes: No abnormal uptake. Pelvis: No abnormal uptake. MUSCULOSKELETAL: Osseous: No abnormal uptake. L1 vertebroplasty Soft Tissues: No abnormal uptake. IMPRESSION: HEAD/NECK: * No FDG avid neoplastic process. CHEST: * No FDG avid neoplastic process. ABDOMEN/PELVIS: * No FDG avid neoplastic process. MUSCULOSKELETAL: * No FDG avid neoplastic process. NOTE: This report was created using voice recognition dictation software. If there is a concern for errors, please have the clinician contact the report author for clarification. Transcribe Date/Time: Sep 05 2023 9:36A Dictated by: CHIARA FARMER MD This examination was interpreted and the report reviewed and electronically signed by: CHIARA FARMER MD on Sep 05 2023 2:17PM EST Thank you for allowing us to participate in the care of your patient. Should there be any questions regarding this interpretation, please call [phone]. If you are unable to reach us at the number above, please feel free to contact [facility]iology at [phone]. [id number] Normal [facility] CNOVSPon 08-11-2023 CNOVSP Visit (SP) Office (H EMASA) RAFAT BELLA ([id number]) 1940 M Date Time Provider Department 08/11/23 1:00 PM ANIBAL HERMOSILLO During your visit today, we recorded the following information about you: Temperature Pulse Respiration Blood pressure 97.5 degrees 76/minute 16/minute 108/68 Weight 116.6 kg Anibal Hermosillo MD 08/11/2023 6:18 PM Signed NAME: Rafat Bella CLINIC NO.: [id number] DATE OF SERVICE: August 11, 2023 (Mihir) [...] feel there was any change. Saw Dr. Nam VALADEZ for this. I feel he will need [...] No complaints (more content not included)... Normal [facility] CNPKeira 08-11-2023 [facility]N [facility] RAFAT BELAL ([id number]) 1940 M Date Time Provider Department 08/11/23 ANIBAL HERMOSILLO During your visit today, we recorded the following information about you: Lori Christine 08/11/2023 1:[address] Cain is requesting triage nurse to call Patient with his Pet scan results from 08-29-23. Annika Rodriguez RN 09/08/2023 8:18 AM Signed Anibal Hermosillo MD 09/06/2023 9:12 AM EDT Ma Rafat - PET scan is negative for any myeloma holes in the bones. Pt' , Shira, informed of Ant's message and denies any questions, needs or concerns at this time. Appointment verified. Annika Rodriguez RN Allergies As of Date: 08/11/2023 Noted Allergy Reaction PENICILLINS 11/05/2016 7 - Swelling Comments: Swelling of the mouth. Date Reviewed: 08/11/2023 Reviewed by: Madeleine Schilling MA - Fully Assessed Reason for Visit: Results [95] Prescriptions as of 09/08/2023 - pioglitazone (ACTOS) 15 mg tablet Take 15 mg by mouth daily before breakfast. - oxyCODONE IR (ROXICODONE) 5 mg immediate release tablet Take 2 tablets by mouth every 6 hours as needed for up to 30 days. - ACCU-CHEK ELIZABETH PLUS TEST STRP test strip - BD INSULIN PEN NEEDLE UF 31 gauge x 16 ndle - gabapentin (NEURONTIN) 300 mg capsule - GABAPENTIN ORAL Take by mouth. - acyclovir (ZOVIRAX) 400 mg tablet TAKE ONE TABLET BY MOUTH TWICE DAILY - escitalopram oxalate (LEXAPRO) 20 mg tablet Take 1 tablet by mouth once daily. - predniSONE (DELTASONE) 5 mg tablet Take 1 tablet by mouth once daily. - VOLTAREN 1 % topical gel Apply 2 g to affected area four times daily. - warfarin (COUMADIN) 5 mg tablet Take 5 mg by mouth once daily. Weds and Sat 2.5 mg - glimepiride (AMARYL) 1 mg tablet Take 1 mg by mouth daily with breakfast. - senna-docusate (MEDI-NATURAL SENNA-STOOL) 8.6-50 mg per tablet Take 2 tablets by mouth twice daily. - linaGLIPtin (TRADJENTA) 5 mg tab Take 5 mg by mouth once daily. - ondansetron (ZOFRAN) 4 mg tablet Take 4 mg by mouth every 8 hours as needed. - pantoprazole DR (PROTONIX) 40 mg tablet Take 40 mg by mouth once daily. - tamsulosin ER (FLOMAX) 0.4 mg cp24 Take 0.4 mg by mouth once daily. - atorvastatin (LIPITOR) 20 mg tablet Take 20 mg by mouth once daily. - Losartan-Hydrochlorothiazide 100-12.5 mg per tablet Take 1 tablet by mouth once daily. 1/2 tab daily - insulin glargine 100 unit/mL (3 mL) Inject 10 Units subcutaneously daily at bedtime. 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 *08/12/2022 Stage 3b chronic kidney disease (HCC) [N18.32] 02/10/2023 Mild episode of recurrent major depressive diso*08/11/2023 Thrombocytopenia (HCC) [D69.6] 08/11/2023 Encounter Status:Closed by ANNIKA RODRIGUEZ on 09/08/23 Normal [facility] Albumin [Mass/volume] in Ser um or Plasmaon 08-04-2023 Albumin [Mass/Vol] 3.58 g/dL 3.43-5.41 [facility] B2 Microglob SerPl-mCncon Vjab-1-Cgspexwpxbf in [Mass/Vol] 4.3 ug/mL High <3.1 [facility] Comment on above: Order Comment: Speci men Type: BLOOD SPECIMEN Ordering Facility: [facility] Address: [place] [address] Result Comment: Beta -2 Microglobulin test is performed using the [employer] immunoturbidimetric method. Results obtained with different methods or kits cannot be used interchangeably. Performed By: #### 3 084-1, 2777-1, , 0 #### [facility] CLIA [id number] [address] [place] [address] Basophils Auto (Bld) [#/Vol] on 08-04-2023 Basophils (Bld) [#/Vol] 0.03 10*3/uL <0.11 [facility] Basophils/100 WBC Auto (Bld) on 08-04-2023 Basophils/100 WBC (Bld) 0.4 % [facility] Blood manual differential co mment interpretation narrativeon 08-04-2023 Manual differential comment Augie (Bld) [Interp] Auto [facility] CBC W Auto Differential pane l (Bld)on 08-04-2023 Basophils (Bld) [#/Vol] 0.03 10*3/uL Normal <0.11 [facility] Comment on above: Order Comment: Speci men Type: BLOOD SPECIMEN Ordering Facility: [facility] Address: [address] [place] [address] Performed By: #### 3 084-1, 2776-03, , 0 #### [facility] CLIA [id number] [address] [place] [address] Basophils/100 WBC (Bld) 0.4 % Normal [facility] Comment on above: Order Comment: Speci men Type: BLOOD SPECIMEN Ordering Facility: [facility] Address: [address] [place] [address] Performed By: #### 3 084-1, 2776-, , 2531-0 #### [facility] CLIA [id number] [address] [place] [address] Differential cell count method Nom (Bld) Auto Normal [facility] Comment on above: Order Comment: Speci men Type: BLOOD SPECIMEN Ordering Facility: [facility] Address: [address] [place] [address] Performed By: #### 3 084-1, 2776-, , 2531-0 #### [facility] CLIA [id number] [address] [place] [address] 48499 Eosinophils (Bld) [#/Vol] 0.12 10*3/uL Normal <0.46 [facility] Comment on above: Order Comment: Speci men Type: BLOOD SPECIMEN Ordering Facility: [facility] Address: [address] [place] [address] Performed By: #### 3 084-1, 2777-1, 23685-1, 2532-0 #### [facility] CLIA [id number] [address] [place] [address] 74922 Eosinophils/100 WBC (Bld) 1.6 % Normal [facility] Comment on above: Order Comment: Speci men Type: BLOOD SPECIMEN Ordering Facility: [facility] Address: [address] [place] [address] Performed By: #### 3 084-1, 2777-1, 75825-1, 2532-0 #### [facility] CLIA [id number] [address] [place] [address] 83736 Erythrocyte distribution width (RBC) [Ratio] 12.8 % Normal 11.5-15.0 [facility] Comment on above: Order Comment: Speci men Type: BLOOD SPECIMEN Ordering Facility: [facility] Address: [address] [place] [address] Performed By: #### 3 084-1, 2777-1, 33029-1, 2532-0 #### [facility] CLIA [id number] [address] [place] [address] 29873 Hematocrit (Bld) [Volume fraction] 40.9 % Normal 39.0-51.0 [facility] Comment on above: Order Comment: Speci men Type: BLOOD SPECIMEN Ordering Facility: [facility] Address: [address] [place] [address] Performed By: #### 3 084-1, 2777-1, 50911-5, 2532-0 #### [facility] CLIA [id number] [address] [place] [address] 90647 Hemoglobin (Bld) [Mass/Vol] 13.5 g/dL Normal 13.0-17.0 [facility] Comment on above: Order Comment: Speci men Type: BLOOD SPECIMEN Ordering Facility: [facility] Address: [address] [place] [id number] Performed By: #### 3 084-1, 2777-1, 00477-9, 2532-0 #### [facility] CLIA [id number] [address] [place] [address] 78932 Immature granulocytes (Bld) [#/Vol] 10*3/uL Normal <0.10 [facility] Comment on above: Order Comment: Speci men Type: BLOOD SPECIMEN Ordering Facility: [facility] Address: [place] [place] [id number] Performed By: #### 3 084-1, 2777-1, 43217-7, 2532-0 #### [facility] CLIA [id number] [address] [place] [address] 48876 Immature granulocytes/100 WBC (Bld) 0.3 % Normal [facility] Comment on above: Order Comment: Speci men Type: BLOOD SPECIMEN Ordering Facility: [facility] Address: [place] [address] Performed By: #### 3 084-1, 2777-1, 31491-3, 2532-0 #### [facility] CLIA [id number] [address] [place] [address] 28054 Lymphocytes (Bld) [#/Vol] 1.81 10*3/uL Normal 1.00-4.00 [facility] Comment on above: Order Comment: Speci men Type: BLOOD SPECIMEN Ordering Facility: [facility] Address: [place] [address] Performed By: #### 3 084-1, 2777-1, 85350-2, 2532-0 #### [facility] CLIA [id number] [address] [place] [address] 69671 Lymphocytes/100 WBC (Bld) 23.4 % Normal [facility] Comment on above: Order Comment: Speci men Type: BLOOD SPECIMEN Ordering Facility: [facility] Address: [address] [place] [address] Performed By: #### 3 084-1, 2777-1, 90699-7, 2531-0 #### [facility] CLIA [id number] [address] [place] [address] 33609 MCH (RBC) [Entitic mass] 30.4 pg Normal 26.0-34.0 [facility] Comment on above: Order Comment: Speci men Type: BLOOD SPECIMEN Ordering Facility: [facility] Address: [address] [place] [address] Performed By: #### 3 084-1, 2777-1, 69113-9, 2531-0 #### [facility] CLIA [id number] [address] [place] [address] 86440 MCHC (RBC) [Mass/Vol] 33.0 g/dL Normal 30.5-36.0 [facility] Comment on above: Order Comment: Speci men Type: BLOOD SPECIMEN Ordering Facility: [facility] Address: [address] [place] [id number] Performed By: #### 3 084-1, 277-, , 2531-0 #### [facility] CLIA [id number] [address] [place] [address] 97169 MCV (RBC) [Entitic vol] 92.1 fL Normal 80.0-100.0 [facility] Comment on above: Order Comment: Speci men Type: BLOOD SPECIMEN Ordering Facility: [facility] Address: [address] [place] [address] Performed By: #### 3 084-1, 2777-1, 86305-7, 2531-0 #### [facility] CLIA [id number] [address] [place] [address] 06546 Monocytes (Bld) [#/Vol] 0.84 10*3/uL Normal <0.87 [facility] Comment on above: Order Comment: Speci men Type: BLOOD SPECIMEN Ordering Facility: [facility] Address: [address] [place] [address] Performed By: #### 3 084-1, 2777-1, 13063-8, 2-0 #### [facility] CLIA [id number] [address] [place] [address] 24586 Monocytes/100 WBC (Bld) 10.9 % Normal [facility] Comment on above: Order Comment: Speci men Type: BLOOD SPECIMEN Ordering Facility: [facility] Address: [address] [place] [address] Performed By: #### 3 084-1, 2777-1, 01395-8, 2-0 #### [facility] CLIA [id number] [address] [place] [address] 02470 Neutrophils (Bld) [#/Vol] 4.91 10*3/uL Normal 1.45-7.50 [facility] Comment on above: Order Comment: Speci men Type: BLOOD SPECIMEN Ordering Facility: [facility] Address: [address] [place] [id number] Performed By: #### 3 084-1, 2777-1, , 2531-0 #### [facility] CLIA [id number] [address] [place] [address] 98825 Neutrophils/100 WBC (Bld) 63.4 % Normal [facility] Comment on above: Order Comment: Speci men Type: BLOOD SPECIMEN Ordering Facility: [facility] Address: [address] [place] [id number] Performed By: #### 3 084-1, 2777-1, 60365-2, 2532-0 #### [facility] CLIA [id number] [address] [place] [address] 62151 Nucleated RBC (Bld) [#/Vol] 10*3/uL Normal <0.01 [facility] Comment on above: Order Comment: Speci men Type: BLOOD SPECIMEN Ordering Facility: [facility] Address: [address] [place] [address] Performed By: #### 3 084-1, 2777-1, 00117-2, 2532-0 #### [facility] CLIA [id number] [address] [place] [address] 15315 Nucleated RBC/100 WBC (Bld) [Ratio] 0.0 /100 WBC Normal [facility] Comment on above: Order Comment: Speci men Type: BLOOD SPECIMEN Ordering Facility: [facility] Address: [address] [place] [address] Performed By: #### 3 084-1, 2777-1, 92153-3, 2532-0 #### [facility] CLIA [id number] [address] [place] [address] 17554 Platelet mean volume (Bld) [Entitic vol] 10.0 fL Normal 9.0-12.7 [facility] Comment on above: Order Comment: Speci men Type: BLOOD SPECIMEN Ordering Facility: [facility] Address: [address] [place] [id number] Performed By: #### 3 084-1, 2777-1, 68465-1, 2532-0 #### [facility] CLIA [id number] [address] [place] [address] 29200 Platelets (Bld) [#/Vol] 187 10*3/uL Normal 150-400 [facility] Comment on above: Order Comment: Speci men Type: BLOOD SPECIMEN Ordering Facility: [facility] Address: [address] [place] [address] Performed By: #### 3 084-1, 2777-1, 14957-4, 2532-0 #### [facility] CLIA [id number] [address] [place] [address] 16249 RBC (Bld) [#/Vol] 4.44 10*6/uL Normal 4.20-6.00 [facility] Comment on above: Order Comment: Speci men Type: BLOOD SPECIMEN Ordering Facility: [facility] Address: [address] [place] [address] Performed By: #### 3 084-1, 2777-1, 80505-7, 2532-0 #### [facility] CLIA [id number] [address] [place] [address] 85444 WBC (Bld) [#/Vol] 7.73 10*3/uL Normal 3.70-11.00 [facility] Comment on above: Order Comment: Speci men Type: BLOOD SPECIMEN Ordering Facility: [facility] Address: [address] [place] [address] Performed By: #### 3 084-1, 2777-1, 92578-0, 2532-0 #### [facility] CLIA [id number] [address] [place] [address] 89070 Calcium.ionized [Moles/Vol]o n 08-04-2023 Calcium.ionized (Bld) [Mass/Vol] 1.24 mmol/L Normal 1.08-1.30 [facility] Comment on above: Order Comment: Speci men Type: BLOOD SPECIMEN Ordering Facility: [facility] Address: [address] [place] [address] Performed By: #### 1 995-0 #### [facility] CLIA [id number] [address] [place] [address] [place] Calcium.ionized adjusted to pH 7.4 (Bld) [Moles/Vol] 1.20 mmol/L Normal 1.08-1.30 [facility] Comment on above: Order Comment: Speci men Type: BLOOD SPECIMEN Ordering Facility: [facility] Address: [address] [place] [address] Performed By: #### 1 995-0 #### [facility] CLIA [id number] [address] [place] [address] [place] Comprehensive metabolic 2000 panelon 08-04-2023 Albumin [Mass/Vol] 4.0 g/dL Normal 3.9-4.9 [facility] Comment on above: Order Comment: Speci men Type: BLOOD SPECIMEN Ordering Facility: [facility] Address: [address] [place] [address] Performed By: #### 3 084-1, 2777-1, 75918-2, 2532-0 #### [facility] CLIA [id number] [address] [place] [address] 18231 ALP [Catalytic activity/Vol] 88 U/L Normal 38-113 [facility] Comment on above: Order Comment: Speci men Type: BLOOD SPECIMEN Ordering Facility: [facility] Address: [address] [place] [id number] Performed By: #### 3 084-1, 2777-1, 46134-6, 2532-0 #### [facility] CLIA [id number] [address] [place] [address] 01914 ALT [Catalytic activity/Vol] 25 U/L Normal 10-54 [facility] Comment on above: Order Comment: Speci men Type: BLOOD SPECIMEN Ordering Facility: [facility] Address: [address] [place] [address] Performed By: #### 3 084-1, 2777-1, 35437-7, 2-0 #### [facility] CLIA [id number] [address] [place] [address] 03769 Anion gap [Moles/Vol] 9 mmol/L Normal 9-18 [facility] Comment on above: Order Comment: Speci men Type: BLOOD SPECIMEN Ordering Facility: [facility] Address: [address] [place] [address] Performed By: #### 3 084-1, 2777-1, 93847-8, 2532-0 #### [facility] CLIA [id number] [address] [place] [address] 10311 AST [Catalytic activity/Vol] 27 U/L Normal 14-40 [facility] Comment on above: Order Comment: Speci men Type: BLOOD SPECIMEN Ordering Facility: [facility] Address: [address] [place] [address] Performed By: #### 3 084-1, 2777-1, 64390-8, 2532-0 #### [facility] CLIA [id number] [address] [place] [address] Bilirubin [Mass/Vol] 0.3 mg/dL Normal 0.2-1.3 [facility] Comment on above: Order Comment: Speci men Type: BLOOD SPECIMEN Ordering Facility: [facility] Address: [address] [place] [address] Performed By: #### 3 084-1, 2777-1, 73965-3, 2-0 #### [facility] CLIA [id number] [address] [place] [address] 61490 Calcium [Mass/Vol] 9.3 mg/dL Normal 8.5-10.2 [facility] Comment on above: Order Comment: Speci men Type: BLOOD SPECIMEN Ordering Facility: [facility] Address: [address] [place] [address] Performed By: #### 3 084-1, 2777-1, 02808-8, 2531-0 #### [facility] CLIA [id number] [address] [place] [address] 29141 Chloride [Moles/Vol] 104 mmol/L Normal 97-105 [facility] Comment on above: Order Comment: Speci men Type: BLOOD SPECIMEN Ordering Facility: [facility] Address: [address] [place] [address] Performed By: #### 3 084-1, 2777-1, 53683-0, 2-0 #### [facility] CLIA [id number] [address] [place] [address] 32075 CO2 [Moles/Vol] 23 mmol/L Normal 22-30 [facility] Comment on above: Order Comment: Speci men Type: BLOOD SPECIMEN Ordering Facility: [facility] Address: [address] [place] [address] Performed By: #### 3 084-1, 2777-1, 23183-3, 2532-0 #### [facility] CLIA [id number] [address] [place] [address] 28316 Creatinine [Mass/Vol] 1.46 mg/dL High 0.73-1.22 [facility] Comment on above: Order Comment: Grisel molina Type: BLOOD SPECIMEN Ordering Facility: [facility] Address: [address] [place] [address] Performed By: #### 3 084-1, 2777-1, 22659-2, 2532-0 #### [facility] CLIA [id number] [address] [place] [address] 60814 Creatinine and Glomerular filtration rate.predicted panel (S/P/Bld) 48 mL/min/1.73m??? Low >=60 [facility] Comment on above: Order Comment: Grisel molina Type: BLOOD SPECIMEN Ordering Facility: [facility] Address: [address] [place] [address] Result Comment: Radha mated Glomerular Filtration Rate [...] accurately reflect actual GFR. Performed By: #### 3 084-1, 2777-1, 91425-4, 2532-0 #### [facility] CLIA [id number] [address] [place] [address] 52520 Glucose [Mass/Vol] 320 mg/dL High 74-99 [facility] Comment on above: Order Comment: Grisel molina Type: BLOOD SPECIMEN Ordering Facility: [facility] Address: [address] [place] [address] Result Comment: The [place] [employer] Association (ADA) provides guidance for cutoff [...] Standards of Medical Care in Diabetes 2016, [place] [employer]. Diabetes Care. 2016.39(Suppl 1). Performed By: #### 3 084-1, 2777-1, 88726-3, 0 #### [facility] CLIA [id number] [address] [place] [address] 72967 Potassium [Moles/Vol] 4.3 mmol/L Normal 3.7-5.1 [facility] Comment on above: Order Comment: Speci men Type: BLOOD SPECIMEN Ordering Facility: [facility] Address: [address] [place] [address] Performed By: #### 3 084-1, 277-, , 2531-0 #### [facility] CLIA [id number] [address] [place] [address] 66034 Protein [Mass/Vol] 7.2 g/dL Normal 6.3-8.0 [facility] Comment on above: Order Comment: Speci men Type: BLOOD SPECIMEN Ordering Facility: [facility] Address: [address] [place] [address] Performed By: #### 3 084-1, 2776-03, , 2531-0 #### [facility] CLIA [id number] [address] [place] [address] 12729 Sodium [Moles/Vol] 136 mmol/L Normal 136-144 [facility] Comment on above: Order Comment: Speci men Type: BLOOD SPECIMEN Ordering Facility: [facility] Address: [address] [place] [address] Performed By: #### 3 084-1, 1, , 0 #### [facility] CLIA [id number] [address] [place] [address] 71674 Urea nitrogen [Mass/Vol] 14 mg/dL Normal 9-24 [facility] Comment on above: Order Comment: Speci men Type: BLOOD SPECIMEN Ordering Facility: [facility] Address: [address] [place] [id number] Performed By: #### 3 084-1, 2777-1, , 2531-0 #### [facility] CLIA [id number] [address] [place] [address] 25409 Eosinophils/100 WBC Auto (Bl d)on 08-04-2023 Eosinophils/100 WBC (Bld) 1.6 % [facility] Erythrocyte distribution wid th Auto (RBC) [Ratio]on 08-04-2023 Erythrocyte distribution width (RBC) [Ratio] 12.8 % 11.5-15.0 [facility] Hematocrit Auto (Bld) [Volum e fraction]on 08-04-2023 Hematocrit (Bld) [Volume fraction] 40.9 % 39.0-51.0 [facility] Hemoglobin [Mass/volume] in Bloodon 08-04-2023 Hemoglobin (Bld) [Mass/Vol] 13.5 g/dL 13.0-17.0 [facility] IMMUNOFIXATION SCREEN, SERUM on 08-04-2023 INTERPRETATION (MPA) Atypical restricted bands are present in the IgG and kappa regions. Consistent with IgG kappa monoclonal gammopathy. Normal [facility] Comment on above: Order Comment: Speci men Type: BLOOD SPECIMEN Ordering Facility: [facility] Address: [place] [address] Performed By: #### 3 084-1, 7-1, , 0 #### [facility] CLIA [id number] [address] [place] [address] 93042 MPA RESULT M protein is present. Abnormal No M p rotein is identified. [facility] Comment on above: Order Comment: Speci men Type: BLOOD SPECIMEN Ordering Facility: [facility] Address: [place] [address] Performed By: #### 3 084-1, 2777-1, 62839-3, 2531-0 #### [facility] CLIA [id number] [address] [place] [address] 02400 STAFF REVIEW (MPA) Reviewed by Kira mojica MD [facility] Comment on above: Order Comment: Speci men Type: BLOOD SPECIMEN Ordering Facility: [facility] Address: [address] [place] [address] Performed By: #### 3 084-1, 2777-1, 24900-9, 2-0 #### [facility] CLIA [id number] [address] [place] [address] 90281 IMMUNOGLOBULINS,IGG,IGA,IGMo n 08-04-2023 IgA [Mass/Vol] 237 mg/dL Normal 70-400 [facility] Comment on above: Order Comment: Speci men Type: BLOOD SPECIMEN Ordering Facility: [facility] Address: [address] [place] [address] Performed By: #### 3 084-1, 2777-1, 55601-9, 2531-0 #### [facility] CLIA [id number] [address] [place] [address] 34370 IgG [Mass/Vol] 1238 mg/dL Normal 700-1600 [facility] Comment on above: Order Comment: Speci men Type: BLOOD SPECIMEN Ordering Facility: [facility] Address: [address] [place] [address] Performed By: #### 3 084-1, 2777-1, 69776-7, 2531-0 #### [facility] CLIA [id number] [address] [place] [address] 12970 IgM [Mass/Vol] 319 mg/dL High 40-230 [facility] Comment on above: Order Comment: Speci men Type: BLOOD SPECIMEN Ordering Facility: [facility] Address: [address] [place] [address] Performed By: #### 3 084-1, 7-1, 00635-5, 2531-0 #### [facility] CLIA [id number] [address] [place] [address] 07755 IgA [Mass/volume] in Serum o r Plasmaon 08-04-2023 IgA [Mass/Vol] 237 mg/dL 70-400 [facility] IgG [Mass/volume] in Serum o r Plasmaon 08-04-2023 IgG [Mass/Vol] 1238 mg/dL 700-1600 [facility] IgM [Mass/volume] in Serum o r Plasmaon 08-04-2023 IgM [Mass/Vol] 319 mg/dL 40-230 [facility] Immunoglobulin light chains. kappa.free [Mass/volume] in Serumon 08-04-2023 Immunoglobulin light chains.kappa.free (S) [Mass/Vol] 102.8 mg/L 3.3-19.4 [facility] Comment on above: Rarely, increased se rum free light chains levels may not be detected or accurately quantified due to prozone phenomenon or in high viscosity samples using this immunoturbidimetric assay. Correlation with other laboratory results and clinical findings is recommended. The Bovill Free Light Chain was performed using the Binding Site Optilite immunoturbidimetric method. Result obtained with different assay methods or kits cannot be used interchangeably. Immunoglobulin light chains. kappa.free/Immunoglobulin light chains.lambda.free [Bowen 08-04-2023 Immunoglobulin light chains.kappa.free/ Immunoglobulin light chains.lambda.free (S) [Mass ratio] 2.18 0.26-1.65 [facility] Immunoglobulin light chains. lambda.free [Mass/volume] in Serum or Plasmaon 08-04-2023 Immunoglobulin light chains.lambda.free [Mass/Vol] 47.2 mg/L 5.7-26.3 [facility] Comment on above: Rarely, increased se rum free light chains levels may not be detected or accurately quantified due to prozone phenomenon or in high viscosity samples using this immunoturbidimetric assay. Correlation with other laboratory results and clinical findings is recommended. The Lambda Free Light Chain was performed using the Binding Site Optilite immunoturbidimetric method. Result obtained with different assay methods or kits cannot be used interchangeably. KAPPA/COTA,FREE,SERon 2023 Immunoglobulin light chains.kappa.free (S) [Mass/Vol] 102.8 mg/L High 3.3-19.4 [facility] Comment on above: Order Comment: Speci men Type: BLOOD SPECIMEN Ordering Facility: [facility] Address: [address], [place] [address] Result Comment: Rare ly, increased serum free light chains levels may not be detected or accurately quantified due to prozone phenomenon or in high viscosity samples using this immunoturbidimetric assay. Correlation with other laboratory results and clinical findings is recommended. The Bovill Free Light Chain was performed using the Binding Site Optilite immunoturbidimetric method. Result obtained with different assay methods or kits cannot be used interchangeably. Performed By: #### 3 084-1, 2777-1, 60207-7, 2531-0 #### [facility] CLIA [id number] [address] [place] [address] 92350 Immunoglobulin light chains.kappa/Immun oglobulin light chains.lambda (S) [Mass ratio] 2.18 High 0.26-1.65 [facility] Comment on above: Order Comment: Speci men Type: BLOOD SPECIMEN Ordering Facility: [facility] Address: [address] [place] [address] Performed By: #### 3 084-1, 2777-1, , 0 #### [facility] CLIA [id number] [address] [place] [address] 57282 Immunoglobulin light chains.lambda.free [Mass/Vol] 47.2 mg/L High 5.7-26.3 [facility] Comment on above: Order Comment: Speci men Type: BLOOD SPECIMEN Ordering Facility: [facility] Address: [address] [place] [address] Result Comment: Rare ly, increased serum free [...] cannot be used interchangeably. Performed By: #### 3 084-1, 2777-1, 50869-3, 2532-0 #### [facility] CLIA [id number] [address] [place] [address] 28922 LDH SerPl-cCncon 08-04-2023 LDH [Catalytic activity/Vol] 159 U/L Normal 135-225 [facility] Comment on above: Order Comment: Speci men Type: BLOOD SPECIMEN Ordering Facility: [facility] Address: [place] [address] Performed By: #### 3 084-1, 2777-1, 19980-4, 2532-0 #### [facility] CLIA [id number] [address] [place] [address] Laboratory - Chemistry and C hemistry - challengeon 08-04-2023 Albumin [Mass/Vol] 4.0 g/dL 3.9-4.9 [facility] ALP [Catalytic activity/Vol] 88 U/L 38-113 [facility] ALT [Catalytic activity/Vol] 25 U/L 10-54 [facility] AST [Catalytic activity/Vol] 27 U/L 14-40 [facility] Bilirubin [Mass/Vol] 0.3 mg/dL 0.2-1.3 [facility] Calcium [Mass/Vol] 9.3 mg/dL 8.5-10.2 [facility] Chloride [Moles/Vol] 104 mmol/L 97-105 [facility] CO2 [Moles/Vol] 23 mmol/L 22-30 [facility] Creatinine [Mass/Vol] 1.46 mg/dL 0.73-1.22 [facility] Glucose [Mass/Vol] 320 mg/dL 74-99 [facility] Comment on above: The [place] [employer] (ADA) provides guidance for cutoff values for fasting glucose and random glucose. The ADA defines fasting as no caloric intake for at least 8 hours. Fasting plasma glucose results between 100 to 125 mg/dL indicate increased risk for diabetes (prediabetes).Fasting plasma glucose results greater than or equal to 126 mg/dL meet the criteria for diagnosis of diabetes. In the absence of unequivocal hyperglycemia, results should be confirmed by repeat testing. In a patient with classic symptoms of hyperglycemia or hyperglycemic crisis, random plasma glucose results greater than or equal to 200 mg/dL meet the criteria for diagnosis of diabetes.Reference: Standards of Medical Care in Diabetes 2016, [place] [employer]. Diabetes Care. 2016.39(Suppl 1). LDH [Catalytic activity/Vol] 159 U/L 135-225 [facility] Potassium [Moles/Vol] 4.3 mmol/L 3.7-5.1 [facility] Protein [Mass/Vol] 0.41 g/dL <=0.00 [facility] Sodium [Moles/Vol] 136 mmol/L 136-144 [facility] Urate [Mass/Vol] 4.7 mg/dL 4.0-8.1 [facility] Urea nitrogen [Mass/Vol] 14 mg/dL 9-24 [facility] Laboratory - Hematology and Cell countson 08-04-2023 Eosinophils (Bld) [#/Vol] 0.12 10*3/uL <0.46 [facility] Immature granulocytes/100 WBC (Bld) 0.3 % [facility] Leukocytes [#/volume] correc kwasi for nucleated erythrocytes in Blood by Automated counon 08-04-2023 WBC corrected for nucl RBC Auto (Bld) [#/Vol] 7.73 k/uL 3.70-11.00 [facility] Lymphocytes Auto (Bld) [#/Vo l]on 08-04-2023 Lymphocytes (Bld) [#/Vol] 1.81 10*3/uL 1.00-4.00 [facility] Lymphocytes/100 WBC Auto (Bl d)on 08-04-2023 Lymphocytes/100 WBC (Bld) 23.4 % [facility] MCH Auto (RBC) [Entitic mass ]on 08-04-2023 MCH (RBC) [Entitic mass] 30.4 pg 26.0-34.0 [facility] MCHC Auto (RBC) [Mass/Vol]on 08-04-2023 MCHC (RBC) [Mass/Vol] 33.0 g/dL 30.5-36.0 [facility] MCV Auto (RBC) [Entitic vol] on 08-04-2023 MCV (RBC) [Entitic vol] 92.1 fL 80.0-100.0 [facility] Monocytes Auto (Bld) [#/Vol] on 08-04-2023 Monocytes (Bld) [#/Vol] 0.84 10*3/uL <0.87 [facility] Monocytes/100 WBC Auto (Bld) on 08-04-2023 Monocytes/100 WBC (Bld) 10.9 % [facility] Neutrophils Auto (Bld) [#/Vo l]on 08-04-2023 Neutrophils (Bld) [#/Vol] 4.91 10*3/uL 1.45-7.50 [facility] Neutrophils/100 WBC Auto (Bl d)on 08-04-2023 Neutrophils/100 WBC (Bld) 63.4 % [facility] No Panel Informationon 08-03 Estimated GFR (CKD-EPI) 48 mL/min/1.73m??? >=60 [facility] Comment on above: Estimated Glomerular Filtration Rate (eGFR) is calculated using the 2020 CKD-EPI creatinine equation. This equation utilizes serum creatinine, sex, and age as parameters. The creatinine assay has traceable calibration to isotope dilution-mass spectrometry. Refer to KDIGO guidelines for clinical interpretation. In patients with unstable renal function, e.g. those with acute kidney injury, the eGFR may not accurately reflect actual GFR. Immature Granulocyte # (Auto) <0.03 k/uL <0.10 [facility] Immunofixation Interpretation [facility] Ionized Calcium (pH Adjusted) 1.20 mmol/L 1.08-1.30 [facility] Leuk/Lymph Sign Pathologist (Misc) Reviewed by Kira Reyes MD [facility] Miscellaneous Test 6 Gamma Fraction 1 [facility] Miscellaneous Test Comment Reviewed by Kira Reyes MD [facility] Phosphorus Level 2.3 mg/dL 2.7-4.8 [facility] Protein Electrophoresis Interpret See comment [facility] Comment on above: See separate immunof ixation report for characterization of monoclonal gammopathy.M protein is present on the background of a polyclonal immunoglobulin population. Quantitation of the M protein may overestimate the amount of M protein present. Protein Electrophoresis Note An M protein is identified on protein electrophoresis. No definitive M protein is identified on protein electrophore sis. [facility] Serum Immunofixation M protein is present. No M protein is identified. [facility] Nucleated RBC Auto (Bld) [#/ Vol]on 08-04-2023 Nucleated RBC (Bld) [#/Vol] 10*3/uL <0.01 [facility] Nucleated erythrocytes [Pres ence] in Blood by Automated counton 08-04-2023 Nucleated RBC Auto Ql (Bld) 0.0 /100{WBC} [facility] PROTEIN ELECTROPHORESIS SERU M (P)on 08-04-2023 Albumin [Mass/Vol] 3.58 g/dL Normal 3.43-5.41 [facility] Comment on above: Order Comment: Speci men Type: BLOOD SPECIMEN Ordering Facility: [facility] Address: [address] [place] [address] Performed By: #### 3 084-1, 2777-1, 11842-2, 2531-0 #### [facility] CLIA [id number] [address] [place] [address] 93195 Alpha 1 globulin Elph [Mass/Vol] 0.26 g/dL Normal 0.18-0.43 [facility] Comment on above: Order Comment: Speci men Type: BLOOD SPECIMEN Ordering Facility: [facility] Address: [address] [place] [address] Performed By: #### 3 084-1, 2777-1, , 2531-0 #### [facility] CLIA [id number] [address] [place] [address] 37749 Alpha 2 globulin Elph [Mass/Vol] 0.67 g/dL Normal 0.42-0.98 [facility] Comment on above: Order Comment: Speci men Type: BLOOD SPECIMEN Ordering Facility: [facility] Address: [address] [place] [address] Performed By: #### 3 084-1, 2777-1, 27505-4, 2531-0 #### [facility] CLIA [id number] [address] [place] [address] 25696 Beta globulin Elph [Mass/Vol] 0.90 g/dL Normal 0.61-1.17 [facility] Comment on above: Order Comment: Speci men Type: BLOOD SPECIMEN Ordering Facility: [facility] Address: [address] [place], [place] [address] Performed By: #### 3 084-1, 2777-1, 44754-5, 2531-0 #### [facility] CLIA [id number] [address] [place] [address]3044 Gamma globulin Elph [Mass/Vol] 1.20 g/dL Normal 0.53-1.51 [facility] Comment on above: Order Comment: Speci men Type: BLOOD SPECIMEN Ordering Facility: [facility] Address: [address] [place] [address] Performed By: #### 3 084-1, 2777-1, 70578-0, 2531-0 #### [facility] CLIA [id number] [address] [place] [address] 60673 INTERPRETATION COMMENT FOR PROTEIN ELECTROPHORESIS Normal [facility] Comment on above: Order Comment: Speci men Type: BLOOD SPECIMEN Ordering Facility: [facility] Address: [address] [place] [address] Result Comment: See separate immunofixation report for characterization of monoclonal gammopathy. M protein is present on the background of a polyclonal immunoglobulin population. Quantitation of the M protein may overestimate the amount of M protein present. Performed By: #### 3 084-1, 2777-1, , 2531-0 #### [facility] CLIA [id number] [address] [place] [address]7919 M-PROTEIN LOCATION Gamma Fraction 1 Normal [facility] Comment on above: Order Comment: Speci men Type: BLOOD SPECIMEN Ordering Facility: [facility] Address: [address] [place] [address] Performed By: #### 3 084-1, 2777-1, 31434-8, 2531-0 #### [facility] CLIA [id number] [address] [place] [address] 40460 Protein Fractions [Interp] An M protein is identified on protein electrophoresis. Abnormal No definitive M protein is identified on protein electrophore sis. [facility] Comment on above: Order Comment: Speci men Type: BLOOD SPECIMEN Ordering Facility: [facility] Address: [address] [place] [address] Performed By: #### 3 084-1, 2777-1, 60926-4, 2-0 #### [facility] CLIA [id number] [address] [place] [address] 72328 Protein.monoclonal Elph [Mass/Vol] 0.41 g/dL High <=0.00 [facility] Comment on above: Order Comment: Speci men Type: BLOOD SPECIMEN Ordering Facility: [facility] Address: [address] [place], [place] [address] Performed By: #### 3 084-1, 2777-1, 74886-6, 2531-0 #### [facility] CLIA [id number] [address] [place] [address] 45680 SPE STAFF REVIEW Reviewed by Kira mojica MD [facility] Comment on above: Order Comment: Speci men Type: BLOOD SPECIMEN Ordering Facility: [facility] Address: [address] [place], [place] [address] Performed By: #### 3 084-1, 2777-1, 31192-9, 2531-0 #### [facility] CLIA [id number] [address] [place] [address] 10461 Phosphate SerPl-mCncon 08-03 Phosphate [Mass/Vol] 2.3 mg/dL Low 2.7-4.8 [facility] Comment on above: Order Comment: Speci men Type: BLOOD SPECIMEN Ordering Facility: [facility] Address: [address] [place] [address] Performed By: #### 3 084-1, 2777-1, 06908-8, 2-0 #### [facility] CLIA [id number] [address] [place] [address]3240 Platelet mean volume Auto (B ld) [Entitic vol]on 08-04-2023 Platelet mean volume (Bld) [Entitic vol] 10.0 fL 9.0-12.7 [facility] Platelets Auto (Bld) [#/Vol] on 08-04-2023 Platelets (Bld) [#/Vol] 187 10*3/uL 150-400 [facility] Prot SerPl-mCncon 08-04-2023 Protein [Mass/Vol] 6.6 g/dL Normal 6.3-8.0 [facility] Comment on above: Order Comment: Speci men Type: BLOOD SPECIMEN Ordering Facility: [facility] Address: [place] [id number] Performed By: #### 3 084-1, 2777-1, 58597-3, 2532-0 #### [facility] CLIA [id number] [address] [place] [address]362 Protein [Mass/volume] in Ser um or Plasmaon 08-04-2023 Protein [Mass/Vol] 6.6 g/dL 6.3-8.0 [facility] RBC Auto (Bld) [#/Vol]on RBC (Bld) [#/Vol] 4.44 10*6/uL 4.20-6.00 [facility] Serum ionized calcium measur ement using ion specific electrode (mass/volume)on 08-04-2023 Calcium.ionized ISE [Mass/Vol] 1.24 mmol/L 1.08-1.30 [facility] Serum or plasma alpha 1 glob ulin measurement by electrophoresis (mass/volume)on 08-04-2023 Alpha 1 globulin Elph [Mass/Vol] 0.26 g/dL 0.18-0.43 [facility] Serum or plasma alpha 2 glob ulin measurement by electrophoresis (mass/volume)on 08-04-2023 Alpha 2 globulin Elph [Mass/Vol] 0.67 g/dL 0.42-0.98 [facility] Serum or plasma anion gap de terminationon 08-04-2023 Anion gap [Moles/Vol] 9 mmol/L 9-18 [facility] Serum or plasma beta globuli n measurement by electrophoresis (mass/volume)on 08-04-2023 Beta globulin Elph [Mass/Vol] 0.90 g/dL 0.61-1.17 [facility] Serum or plasma nvfg-6-bergs globulin measurement (mass/volume)on 08-04-2023 Wpur-4-Bngzdqbblfm in [Mass/Vol] 4.3 ug/mL <3.1 [facility] Comment on above: Beta-2 Microglobulin test is performed using the [employer] immunoturbidimetric method. Results obtained with different methods or kits cannot be used interchangeably. Serum or plasma gamma globul in measurement by electrophoresis (mass/volume)on 08-04-2023 Gamma globulin Elph [Mass/Vol] 1.20 g/dL 0.53-1.51 [facility] Urate SerPl-mCncon Urate [Mass/Vol] 4.7 mg/dL Normal 4.0-8.1 [facility]vin harding [facility] Comment on above: Order Comment: Speci men Type: BLOOD SPECIMEN Ordering Facility: [facility] Address: [address] [place] [address] Performed By: #### 3 084-1, 2777-1, 85574-2, 2532-0 #### [facility] CLIA [id number] [address] [place] [address] Microalbumin [Mass/volume] i n Urineon 07-14-2023 Albumin DL <= 20 mg/L (U) [Mass/Vol] 8.0 mg/dL <=30.0 [facility] Basophils Auto (Bld) [#/Vol] on 07-11-2023 Basophils (Bld) [#/Vol] 0.0 10 3/uL 0.0-0.1 [facility] Basophils/100 WBC Auto (Bld) on 07-11-2023 Basophils/100 WBC (Bld) 0.5 % 0.2-2.0 [facility] Cholesterol in LDL Calc [Mas s/Vol]on 07-11-2023 Cholesterol in LDL [Mass/Vol] 64.0 mg/dL [facility] Comment on above: <100 mg/dl [id number] 0-129 mg/dl NEAR OR ABOVE [id number] mg/dl BORDERLINE [id number] mg/dl HIGH>190 mg/dl VERY HIGH Cholesterol in VLDL Calc [Ma ss/Vol]on 07-11-2023 Cholesterol in VLDL [Mass/Vol] 33.8 mg/dL [facility] Eosinophils/100 WBC Auto (Bl d)on 07-11-2023 Eosinophils/100 WBC (Bld) 2.3 % 0.9-7.0 [facility] Erythrocyte distribution wid th Auto (RBC) [Ratio]on 07-11-2023 Erythrocyte distribution width (RBC) [Ratio] 12.7 % 11.0-15.0 [facility] Estimated glomerular filtrat ion rate (GFR) non- Americanon 07-11-2023 GFR/1.73 sq M.predicted among non-blacks MDRD (S/P/Bld) [Vol rate/Area] 48 mL/min/{1.73_m2} >=60 [facility] Globulin Calc (S) [Mass/Vol] on 07-11-2023 Globulin (S) [Mass/Vol] 3.9 g/dL [facility] Glucose mean value [Mass/vol ume] in Blood Estimated from glycated hemoglobinon 07-11-2023 Average glucose Estimated from glycated hemoglobin (Bld) [Mass/Vol] 177 mg/dL [facility] Hematocrit Auto (Bld) [Volum e fraction]on 07-11-2023 Hematocrit (Bld) [Volume fraction] 43.0 % 42.0-54.0 [facility] Hemoglobin [Mass/volume] in Bloodon 07-11-2023 Hemoglobin (Bld) [Mass/Vol] 14.3 g/dL 14.0-18.0 [facility] Laboratory - Chemistry and C hemistry - challengeon 07-11-2023 Albumin [Mass/Vol] 3.6 g/dL 3.4-5.0 [facility] ALP [Catalytic activity/Vol] 87 U/L 46-116 [facility] ALT [Catalytic activity/Vol] 37 U/L 16-63 [facility] AST [Catalytic activity/Vol] 27 U/L 15-37 [facility] Bilirubin [Mass/Vol] 0.5 mg/dL 0.2-1.0 [facility] Calcium [Mass/Vol] 9.3 mg/dL 8.5-10.1 [facility] Chloride [Moles/Vol] 105 mmol/L 98-107 [facility] Cholesterol [Mass/Vol] 137 mg/dL <=200 [facility] Cholesterol in HDL [Mass/Vol] 40 mg/dL 40-60 [facility] Comment on above: > or =60 mg/dl - LOW CARDIOVASCULAR RISK<40 mg/dl - HIGH CARDIOVASCULAR RISK CO2 [Moles/Vol] 26.9 mmol/L 21.0-32.0 [facility] Creatinine [Mass/Vol] 1.41 mg/dL 0.70-1.30 [facility] GFR/1.73 sq M.predicted MDRD (S/P/Bld) [Vol rate/Area] 58 mL/min/{1.73_m2} >=60 [facility] Glucose [Mass/Vol] 158 mg/dL 74-106 [facility] Potassium [Moles/Vol] 4.2 mmol/L 3.5-5.1 [facility] Protein [Mass/Vol] 7.5 g/dL 6.4-8.2 [facility] Sodium [Moles/Vol] 139 mmol/L 136-145 [facility] Triglyceride [Mass/Vol] 169 mg/dL <=150 [facility] Urea nitrogen [Mass/Vol] 15.0 mg/dL 7.0-18.0 [facility] Urea nitrogen/Creatinin e [Mass ratio] 10.6 mg/mg [facility] Laboratory - Hematology and Cell countson 07-11-2023 HbA1c (Bld) [Mass fraction] 7.8 % 4.5-6.2 [facility] Comment on above: ADA RECOMMENDED LIMI T 4.0 - 6.0ADA THERAPEUTIC TARGET < 7.0ACTION SUGGESTED> 7.0 Immature granulocytes/100 WBC (Bld) 0.3 % 0.0-0.5 [facility] Leukocytes [#/volume] correc kwasi for nucleated erythrocytes in Blood by Automated counon 07-11-2023 WBC corrected for nucl RBC Auto (Bld) [#/Vol] 8.9 10 3/uL 4.0-11.0 [facility] Lymphocytes Auto (Bld) [#/Vo l]on 07-11-2023 Lymphocytes (Bld) [#/Vol] 2.4 10 3/uL 1.2-3.8 [facility] Lymphocytes/100 WBC Auto (Bl d)on 07-11-2023 Lymphocytes/100 WBC (Bld) 26.8 % 20.5-60.0 [facility] MCH Auto (RBC) [Entitic mass ]on 07-11-2023 MCH (RBC) [Entitic mass] 31.2 pg 25.9-34.0 [facility] MCHC Auto (RBC) [Mass/Vol]on 07-11-2023 MCHC (RBC) [Mass/Vol] 33.3 g/dL 29.9-35.2 [facility] MCV Auto (RBC) [Entitic vol] on 07-11-2023 MCV (RBC) [Entitic vol] 93.9 fL 80.0-94.0 [facility] Monocytes Auto (Bld) [#/Vol] on 07-11-2023 Monocytes (Bld) [#/Vol] 0.8 10 3/uL 0.3-0.8 [facility] Monocytes/100 WBC Auto (Bld) on 07-11-2023 Monocytes/100 WBC (Bld) 9.5 % 1.7-12.0 [facility] Neutrophils Auto (Bld) [#/Vo l]on 07-11-2023 Neutrophils (Bld) [#/Vol] 5.4 10 3/uL 1.4-6.5 [facility] Neutrophils/100 WBC Auto (Bl d)on 07-11-2023 Neutrophils/100 WBC (Bld) 60.6 % 43.0-75.0 [facility] No Panel Informationon 07-10 Eosinophils # (Auto) 0.2 10 3/uL 0.0-0.7 [facility] Immature Granulocyte # (Auto) 0.03 10 3/uL 0.00-0.03 [facility] Platelet mean volume Auto (B ld) [Entitic vol]on 07-11-2023 Platelet mean volume (Bld) [Entitic vol] 9.8 fL 9.5-13.5 [facility] Platelets Auto (Bld) [#/Vol] on 07-11-2023 Platelets (Bld) [#/Vol] 213 10 3/uL 150-450 [facility] RBC Auto (Bld) [#/Vol]on RBC (Bld) [#/Vol] 4.58 10 6/uL 4.70-6.10 [facility] Serum or plasma albumin/glob ulin mass ratioon 07-11-2023 Albumin/Globulin [Mass ratio] 0.9 {ratio} [facility] Serum or plasma anion gap de terminationon 07-11-2023 Anion gap [Moles/Vol] 11.3 mmol/L [facility] Serum or plasma total choles terol/high density lipoprotein (HDL) cholesterol mass cr 07-11-2023 Cholesterol.total/ Cholesterol in HDL [Mass ratio] 3.4 {ratio} [facility] Comment on above: 3.3 - 4.4 LOW RISK4. 4 - 7.1 AVERAGE RISK7.1 - 11.0 MODERATE RISK>11.0 HIGH RISK CNOVSPon 02-10-2023 CNOVSP Visit (SP) Office (H [facility]) RAFAT BELLA ([id number]) 1940 M Date Time Provider Department 02/10/23 1:00 PM ANIBAL HERMOSILLO During your visit today, we recorded the following information about you: Temperature Pulse Respiration Blood pressure 97.3 degrees 67/minute 16/minute 172/75 Weight Height 117.6 kg 1.766 m Anibal Hermosillo MD 02/10/2023 7:28 PM Signed NAME: Rafat Bella [facility] NO.: [id number] DATE OF SERVICE: February 10, 2023 (Mihir) [...] feel there was any change. Saw Dr. Hernández ENT for this. I feel he will [...] 02/07/2022. 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 He has no complaints. [...] significant evidence (more content not included)... Normal [facility] B2 Microglob SerPl-mCncon Eurq-0-Mbxlpqwhgnu in [Mass/Vol] 3.9 ug/mL High <3.1 [facility] Comment on above: Order Comment: Speci men Type: BLOOD SPECIMEN Ordering Facility: [facility] Address: [address] [place] [address] Result Comment: Beta -2 Microglobulin test is performed using the [employer] immunoturbidimetric method. Results obtained with different methods or kits cannot be used interchangeably. Performed By: #### 3 084-1, 2777-1, 10292-3, 2532-0 #### [facility] CLIA [id number] [address] [place] [address] 92921 CBC W Auto Differential pane l (Bld)on 02-03-2023 Basophils (Bld) [#/Vol] 0.03 10*3/uL Normal <0.11 [facility] Comment on above: Order Comment: Speci men Type: BLOOD SPECIMEN Ordering Facility: [facility] Address: [address] [place] [address] Performed By: #### 5 7021-8 #### [facility] CLIA [id number] [address] [place] [address] 62432 Basophils/100 WBC (Bld) 0.5 % Normal [facility] Comment on above: Order Comment: Speci men Type: BLOOD SPECIMEN Ordering Facility: [facility] Address: [address] [place] [address] Performed By: #### 5 7021-8 #### [facility] CLIA [id number] [address] [place] [address] 23650 Differential cell count method Nom (Bld) Auto Normal [facility] Comment on above: Order Comment: Speci men Type: BLOOD SPECIMEN Ordering Facility: [facility] Address: [address] [place] [address] Performed By: #### 5 7021-8 #### [facility] CLIA [id number] [address] [place] [address] 94258 Eosinophils (Bld) [#/Vol] 0.12 10*3/uL Normal <0.46 [facility] Comment on above: Order Comment: Speci men Type: BLOOD SPECIMEN Ordering Facility: [facility] Address: [address] [place] [address] Performed By: #### 5 7021-8 #### [facility] CLIA [id number] [address] [place] [address] 17923 Eosinophils/100 WBC (Bld) 1.9 % Normal [facility] Comment on above: Order Comment: Speci men Type: BLOOD SPECIMEN Ordering Facility: [facility] Address: [address] [place] [address] Performed By: #### 5 7021-8 #### [facility] CLIA [id number] [address] [place] [address] 10522 Erythrocyte distribution width (RBC) [Ratio] 12.9 % Normal 11.5-15.0 [facility] Comment on above: Order Comment: Speci men Type: BLOOD SPECIMEN Ordering Facility: [facility] Address: [address] [place] [address] Performed By: #### 5 7021-8 #### [facility] CLIA [id number] [address] [place] [address] 21899 Hematocrit (Bld) [Volume fraction] 39.5 % Normal 39.0-51.0 [facility] Comment on above: Order Comment: Speci men Type: BLOOD SPECIMEN Ordering Facility: [facility] Address: [address] [place] [address] Performed By: #### 5 7021-8 #### [facility] CLIA [id number] [address] [place] [address] 91054 Hemoglobin (Bld) [Mass/Vol] 13.3 g/dL Normal 13.0-17.0 [facility] Comment on above: Order Comment: Speci men Type: BLOOD SPECIMEN Ordering Facility: [facility] Address: [address] [place] [address] Performed By: #### 5 7021-8 #### [facility] CLIA [id number] [address] [place] [address] 96100 Immature granulocytes (Bld) [#/Vol] 10*3/uL Normal <0.10 [facility] Comment on above: Order Comment: Speci men Type: BLOOD SPECIMEN Ordering Facility: [facility] Address: [address] [place] [address] Performed By: #### 5 7021-8 #### [facility] CLIA [id number] [address] [place] [address] 77521 Immature granulocytes/100 WBC (Bld) 0.3 % Normal [facility] Comment on above: Order Comment: Speci men Type: BLOOD SPECIMEN Ordering Facility: [facility] Address: [address] [place] [address] Performed By: #### 5 7021-8 #### [facility] CLIA [id number] [address] [place] [address] 18363 Lymphocytes (Bld) [#/Vol] 1.56 10*3/uL Normal 1.00-4.00 [facility] Comment on above: Order Comment: Speci men Type: BLOOD SPECIMEN Ordering Facility: [facility] Address: [address] [place] [address] Performed By: #### 5 7021-8 #### [facility] CLIA [id number] [address] [place] [address] 66547 Lymphocytes/100 WBC (Bld) 24.1 % Normal [facility] Comment on above: Order Comment: Speci men Type: BLOOD SPECIMEN Ordering Facility: [facility] Address: [address] [place] [address] Performed By: #### 5 7021-8 #### [facility] CLIA [id number] [address] [place] [address] 44386 MCH (RBC) [Entitic mass] 30.6 pg Normal 26.0-34.0 [facility] Comment on above: Order Comment: Speci men Type: BLOOD SPECIMEN Ordering Facility: [facility] Address: [address] [place] [address] Performed By: #### 5 7021-8 #### [facility] CLIA [id number] [address] [place] [address] 07602 MCHC (RBC) [Mass/Vol] 33.7 g/dL Normal 30.5-36.0 [facility] Comment on above: Order Comment: Speci men Type: BLOOD SPECIMEN Ordering Facility: [facility] Address: [address] [place] [address] Performed By: #### 5 7021-8 #### [facility] CLIA [id number] [address] [place] [address] 70435 MCV (RBC) [Entitic vol] 91.0 fL Normal 80.0-100.0 [facility] Comment on above: Order Comment: Speci men Type: BLOOD SPECIMEN Ordering Facility: [facility] Address: [address] [place] [address] Performed By: #### 5 7021-8 #### [facility] CLIA [id number] [address] [place] [address] 80648 Monocytes (Bld) [#/Vol] 0.58 10*3/uL Normal <0.87 [facility] Comment on above: Order Comment: Speci men Type: BLOOD SPECIMEN Ordering Facility: [facility] Address: [address] [place] [address] Performed By: #### 5 7021-8 #### [facility] CLIA [id number] [address] [place] [address] 77562 Monocytes/100 WBC (Bld) 9.0 % Normal [facility] Comment on above: Order Comment: Speci men Type: BLOOD SPECIMEN Ordering Facility: [facility] Address: [address] [place] [address] Performed By: #### 5 7021-8 #### [facility] CLIA [id number] [address] [place] [address] 56560 Neutrophils (Bld) [#/Vol] 4.17 10*3/uL Normal 1.45-7.50 [facility] Comment on above: Order Comment: Speci men Type: BLOOD SPECIMEN Ordering Facility: [facility] Address: [address] [place] [address] Performed By: #### 5 7021-8 #### [facility] CLIA [id number] [address] [place] [address] Neutrophils/100 WBC (Bld) 64.2 % Normal [facility] Comment on above: Order Comment: Speci men Type: BLOOD SPECIMEN Ordering Facility: [facility] Address: [address] [place] [address] Performed By: #### 5 7021-8 #### [facility] CLIA [id number] [address] [place] [address] Nucleated RBC (Bld) [#/Vol] 10*3/uL Normal <0.01 [facility] Comment on above: Order Comment: Speci men Type: BLOOD SPECIMEN Ordering Facility: [facility] Address: [address] [place] [address] Performed By: #### 5 7021-8 #### [facility] CLIA [id number] [address] [place] [address] 97858 Nucleated RBC/100 WBC (Bld) [Ratio] 0.0 /100 WBC Normal [facility] Comment on above: Order Comment: Speci men Type: BLOOD SPECIMEN Ordering Facility: [facility] Address: [address] [place] [address] Performed By: #### 5 7021-8 #### [facility] CLIA [id number] [address] [place] [address] 38914 Platelet mean volume (Bld) [Entitic vol] 10.0 fL Normal 9.0-12.7 [facility] Comment on above: Order Comment: Speci men Type: BLOOD SPECIMEN Ordering Facility: [facility] Address: [address] [place] [address] Performed By: #### 5 7021-8 #### [facility] CLIA [id number] [address] [place] [address] 13641 Platelets (Bld) [#/Vol] 199 10*3/uL Normal 150-400 [facility] Comment on above: Order Comment: Speci men Type: BLOOD SPECIMEN Ordering Facility: [facility] Address: [address] [place] [id number] Performed By: #### 5 7021-8 #### [facility] CLIA [id number] [address] [place] [address] 71453 RBC (Bld) [#/Vol] 4.34 10*6/uL Normal 4.20-6.00 [facility] Comment on above: Order Comment: Speci men Type: BLOOD SPECIMEN Ordering Facility: [facility] Address: [address] [place] [address] Performed By: #### 5 7021-8 #### [facility] CLIA [id number] [address] [place] [address] 62272 WBC (Bld) [#/Vol] 6.48 10*3/uL Normal 3.70-11.00 [facility] Comment on above: Order Comment: Speci men Type: BLOOD SPECIMEN Ordering Facility: [facility] Address: [address] [place] [address] Performed By: #### 5 7021-8 #### [facility] CLIA [id number] [address] [place] [address] 61634 Calcium.ionized [Moles/Vol]o n 02-03-2023 Calcium.ionized (Bld) [Mass/Vol] 1.25 mmol/L Normal 1.08-1.30 [facility] Comment on above: Order Comment: Speci men Type: BLOOD SPECIMEN Ordering Facility: [facility] Address: [address] [place] [address] Performed By: #### 3 084-1, 2777-1, 45800-5, 2532-0 #### [facility] CLIA [id number] [address] [place] [address] 93039 Calcium.ionized adjusted to pH 7.4 (Bld) [Moles/Vol] 1.22 mmol/L Normal 1.08-1.30 [facility] Comment on above: Order Comment: Speci men Type: BLOOD SPECIMEN Ordering Facility: [facility] Address: [address] [place] [address], [place] [address] Performed By: #### 3 084-1, 2777-1, 04072-7, 2532-0 #### [facility] CLIA [id number] [address] [place] [address] 07560 Comprehensive metabolic 2000 panelon 02-03-2023 Albumin [Mass/Vol] 3.9 g/dL Normal 3.9-4.9 [facility] Comment on above: Order Comment: Speci men Type: BLOOD SPECIMEN Ordering Facility: [facility] Address: [address] [place] [address] Performed By: #### 3 084-1, 2777-1, 16796-5, 2532-0 #### [facility] CLIA [id number] [address] [place] [address] 69299 ALP [Catalytic activity/Vol] 83 U/L Normal 38-113 [facility] Comment on above: Order Comment: Speci men Type: BLOOD SPECIMEN Ordering Facility: [facility] Address: [address] [place] [address] Performed By: #### 3 084-1, 2777-1, 43679-2, 2532-0 #### [facility] CLIA [id number] [address] [place] [address] 86638 ALT [Catalytic activity/Vol] 23 U/L Normal 10-54 [facility] Comment on above: Order Comment: Speci men Type: BLOOD SPECIMEN Ordering Facility: [facility] Address: [address] [place] [address] Performed By: #### 3 084-1, 2777-1, 63923-4, 2532-0 #### [facility] CLIA [id number] [address] [place] [address] 92032 Anion gap [Moles/Vol] 11 mmol/L Normal 9-18 [facility] Comment on above: Order Comment: Speci men Type: BLOOD SPECIMEN Ordering Facility: [facility] Address: [address] [place] [address] Performed By: #### 3 084-1, 7-1, 40694-4, 2531-0 #### [facility] CLIA [id number] [address] [place] [address] AST [Catalytic activity/Vol] 28 U/L Normal 14-40 [facility] Comment on above: Order Comment: Speci men Type: BLOOD SPECIMEN Ordering Facility: [facility] Address: [address] [place] [address] Performed By: #### 3 084-1, 7-1, 03335-6, 2531-0 #### [facility] CLIA [id number] [address] [place] [address] 70669 Bilirubin [Mass/Vol] 0.5 mg/dL Normal 0.2-1.3 [facility] Comment on above: Order Comment: Speci men Type: BLOOD SPECIMEN Ordering Facility: [facility] Address: [address] [place] [address] Performed By: #### 3 084-1, 2776-, , 2531-0 #### [facility] CLIA [id number] [address] [place] [address] 72863 Calcium [Mass/Vol] 9.2 mg/dL Normal 8.5-10.2 [facility] Comment on above: Order Comment: Speci men Type: BLOOD SPECIMEN Ordering Facility: [facility] Address: [address] [place] [address] Performed By: #### 3 084-1, 2776-, , 2531-0 #### [facility] CLIA [id number] [address] [place] [address] 58403 Chloride [Moles/Vol] 106 mmol/L High 97-105 [facility] Comment on above: Order Comment: Speci men Type: BLOOD SPECIMEN Ordering Facility: [facility] Address: [address] [place] [address] Performed By: #### 3 084-1, 2777-1, 18326-1, 2-0 #### [facility] CLIA [id number] [address] [place] [address] 59501 CO2 [Moles/Vol] 20 mmol/L Low 22-30 [facility] Comment on above: Order Comment: Speci men Type: BLOOD SPECIMEN Ordering Facility: [facility] Address: [address] [place] [address] Performed By: #### 3 084-1, 2777-1, 79912-1, 2532-0 #### [facility] CLIA [id number] [address] [place] [address] 25045 Creatinine [Mass/Vol] 1.23 mg/dL High 0.73-1.22 [facility] Comment on above: Order Comment: Speci men Type: BLOOD SPECIMEN Ordering Facility: [facility] Address: [address] [place] [address] Performed By: #### 3 084-1, 2777-1, 75451-9, 253-0 #### [facility] CLIA [id number] [address] [place], [place] [address] Creatinine and Glomerular filtration rate.predicted panel (S/P/Bld) 59 mL/min/1.73m??? Low >=60 [facility] Comment on above: Order Comment: Speci jesse Type: BLOOD SPECIMEN Ordering Facility: [facility] Address: [address] [place] [address] Result Comment: Radha mated Glomerular Filtration Rate [...] accurately reflect actual GFR. Performed By: #### 3 084-1, 2777-1, 85376-1, 2532-0 #### [facility] CLIA [id number] [address] [place] [address] 56870 Glucose [Mass/Vol] 189 mg/dL High 74-99 [facility] Comment on above: Order Comment: Speci men Type: BLOOD SPECIMEN Ordering Facility: [facility] Address: [address] [place] [id number] Result Comment: The [place] Diabetes Association (ADA) provides guidance for cutoff [...] Standards of Medical Care in Diabetes 2016, [place] [employer] Association. Diabetes Care. 2016.39(Suppl 1). Performed By: #### 3 084-1, 2777-1, 11520-1, 2-0 #### [facility] CLIA [id number] [address] [place] [address] 92795 Potassium [Moles/Vol] 3.9 mmol/L Normal 3.7-5.1 [facility] Comment on above: Order Comment: Grisel molina Type: BLOOD SPECIMEN Ordering Facility: [facility] Address: [place] [address] Performed By: #### 3 084-1, 2777-1, 97408-3, 2531-0 #### [facility] CLIA [id number] [address] [place] [address] 16972 Protein [Mass/Vol] 7.0 g/dL Normal 6.3-8.0 [facility] Comment on above: Order Comment: Grisel molina Type: BLOOD SPECIMEN Ordering Facility: [facility] Address: [place] [address] Performed By: #### 3 084-1, 2777-1, 37220-4, 2532-0 #### [facility] CLIA [id number] [address] [place] [address] 28445 Sodium [Moles/Vol] 137 mmol/L Normal 136-144 [facility] Comment on above: Order Comment: Grisel molina Type: BLOOD SPECIMEN Ordering Facility: [facility] Address: [address] [place] [address] Performed By: #### 3 084-1, 2777-1, 82553-6, 2531-0 #### [facility] CLIA [id number] [address] [place] [address] 48526 Urea nitrogen [Mass/Vol] 16 mg/dL Normal 9-24 [facility] Comment on above: Order Comment: Grisel molina Type: BLOOD SPECIMEN Ordering Facility: [facility] Address: [address] [place] [address] Performed By: #### 3 084-1, 2777-1, 19810-0, 2531-0 #### [facility] CLIA [id number] [address] [place] [address] 69066 HbA1c (Bld)on 02-03-2023 Average glucose Estimated from glycated hemoglobin (Bld) [Mass/Vol] 180 mg/dL Normal [facility] Comment on above: Order Comment: Grisel molina Type: BLOOD SPECIMEN Ordering Facility: [facility] Address: [address] [place] [address] Result Comment: eAG: (Estimated average glucose) is a calculated value from HgbA1c and is footwear sales representative of the average blood glucose level in the last 2-3 month period. Performed By: #### 3 084-1, 2777-1, 84602-1, 2-0 #### [facility] CLIA [id number] [address] [place] [address] 49414 HbA1c (Bld) [Mass fraction] 7.9 % High 4.3-5.6 [facility] Comment on above: Order Comment: Grisel jesse Type: BLOOD SPECIMEN Ordering Facility: [facility] Address: [address] [place] [address] Result Comment: [place] Diabetes Association guidelines indicate that patients with HgbA1c in the range 5.7-6.4% are at increased risk for development of diabetes, and intervention by lifestyle modification may be beneficial. HgbA1c greater or equal to 6.5% is considered diagnostic of diabetes. Performed By: #### 3 084-1, 2777-1, 63152-8, 2-0 #### [facility] CLIA [id number] [address] [place] [address] 30756 IMMUNOFIXATION SCREEN, SERUM on 02-03-2023 INTERPRETATION (MPA) Poorly defined region of restricted mobility in IgG and kappa lanes. Pattern is less well defined or fainter than typically seen in monoclonal gammopathy. This could represent either an atypical presentation of polyclonal immunoglobulins or the presence of a low level IgG kappa monoclonal gammopathy. Normal [facility] Comment on above: Order Comment: Specpriya molina Type: BLOOD SPECIMEN Ordering Facility: [facility] Address: [address] [place] [address] Performed By: #### 3 084-1, 2777-1, 15717-1, 2531-0 #### [facility] CLIA [id number] [address] [place] [address] 34748 MPA RESULT A poorly defined reg ion of restricted mobility is present that may represent an M protein. Abnormal No M protein is identified. [facility] Comment on above: Order Comment: Grisel molina Type: BLOOD SPECIMEN Ordering Facility: [facility] Address: [address] [place] [address] Performed By: #### 3 084-1, 2777-1, , 2531-0 #### [facility] CLIA [id number] [address] [place] [address] 74134 STAFF REVIEW (MPA) Reviewed by Kira mojica MD Normal [facility] Comment on above: Order Comment: Grisel molina Type: BLOOD SPECIMEN Ordering Facility: [facility] Address: [address] [place], [place] [address] Performed By: #### 3 084-1, 2777-1, 02930-2, 2531-0 #### [facility] CLIA [id number] [address] [place] [address] 39702 IMMUNOGLOBULINS GAMon 2022 IgA [Mass/Vol] 237 mg/dL Normal 70-400 [facility] Comment on above: Order Comment: Speci men Type: BLOOD SPECIMEN Ordering Facility: [facility] Address: [address] [place] [address] Performed By: #### 3 084-1, 2777-1, 95118-4, 2-0 #### [facility] CLIA [id number] [address] [place] [address] 63911 IgG [Mass/Vol] 1279 mg/dL Normal 700-1600 [facility] Comment on above: Order Comment: Speci men Type: BLOOD SPECIMEN Ordering Facility: [facility] Address: [address] [place] [address] Performed By: #### 3 084-1, 2777-1, 43418-9, 2531-0 #### [facility] CLIA [id number] [address] [place] [address] 71988 IgM [Mass/Vol] 296 mg/dL High 40-230 [facility] Comment on above: Order Comment: Speci men Type: BLOOD SPECIMEN Ordering Facility: [facility] Address: [address] [place] [address] Performed By: #### 3 084-1, 2777-1, 34258-6, 2531-0 #### [facility] CLIA [id number] [address] [place] [address] 12880 KAPPA/COTA,FREE,SERon 2022 Immunoglobulin light chains.kappa.free (S) [Mass/Vol] 83.1 mg/L High 3.3-19.4 [facility] Comment on above: Order Comment: Speci men Type: BLOOD SPECIMEN Ordering Facility: [facility] Address: [address] [place] [address] Result Comment: Rare ly, increased serum free light chains levels may not be detected or accurately quantified due to prozone phenomenon or in high viscosity samples using this immunoturbidimetric assay. Correlation with other laboratory results and clinical findings is recommended. The [place] Free Light Chain was performed using the Binding Site Optilite immunoturbidimetric method. Result obtained with different assay methods or kits cannot be used interchangeably. Performed By: #### K LFRS #### [facility] CLIA [id number] [address] [place] [address] [place] Immunoglobulin light chains.kappa/Immun oglobulin light chains.lambda (S) [Mass ratio] 2.10 High 0.26-1.65 [facility] Comment on above: Order Comment: Speci men Type: BLOOD SPECIMEN Ordering Facility: [facility] Address: [address] [place] [address] Performed By: #### K LFRS #### [facility] CLIA [id number] [address] [place] [address] [place] Immunoglobulin light chains.lambda.free [Mass/Vol] 39.6 mg/L High 5.7-26.3 [facility] Comment on above: Order Comment: Speci men Type: BLOOD SPECIMEN Ordering Facility: [facility] Address: [address] [place] [address] Result Comment: Rare ly, increased serum free [...] interchangeably. Performed By: #### K LFRS #### [facility] CLIA [id number] [address] [place] [address] [place] LDH SerPl-cCncon 02-03-2023 LDH [Catalytic activity/Vol] 153 U/L Normal 135-225 [facility] Comment on above: Order Comment: Speci men Type: BLOOD SPECIMEN Ordering Facility: [facility] Address: [address] [place] [address] Performed By: #### 3 084-1, 2777-1, 18988-7, 2532-0 #### [facility] CLIA [id number] [address] [place] [address] PROTEIN ELECTROPHORESIS SERU M (P)on 02-03-2023 Albumin [Mass/Vol] 3.64 g/dL Normal 3.43-5.41 [facility] Comment on above: Order Comment: Speci men Type: BLOOD SPECIMEN Ordering Facility: [facility] Address: [address] [place] [address] Performed By: #### L [id number] #### [facility] CLIA [id number] [address] [place] [address] [place] Alpha 1 globulin Elph [Mass/Vol] 0.26 g/dL Normal 0.18-0.43 [facility] Comment on above: Order Comment: Speci men Type: BLOOD SPECIMEN Ordering Facility: [facility] Address: [address] [place] [address] Performed By: #### L [id number] #### [facility] CLIA [id number] [address] [place] [address] [place] Alpha 2 globulin Elph [Mass/Vol] 0.69 g/dL Normal 0.42-0.98 [facility] Comment on above: Order Comment: Speci men Type: BLOOD SPECIMEN Ordering Facility: [facility] Address: [address] [place] [address] Performed By: #### L [id number] #### [facility] CLIA [id number] [address] [place] [address] [place] Beta globulin Elph [Mass/Vol] 0.80 g/dL Normal 0.61-1.17 [facility] Comment on above: Order Comment: Speci men Type: BLOOD SPECIMEN Ordering Facility: [facility] Address: [address] [place] [address] Performed By: #### L [id number] #### [facility] CLIA [id number] [address] [place] [address] [place] Gamma globulin Elph [Mass/Vol] 1.22 g/dL Normal 0.53-1.51 [facility] Comment on above: Order Comment: Speci men Type: BLOOD SPECIMEN Ordering Facility: [facility] Address: [address] [place] [address] Performed By: #### L [id number] #### [facility] CLIA [id number] [facility] [place] [address] [place] INTERPRETATION COMMENT FOR PROTEIN ELECTROPHORESIS The atypical region is relatively poorly defined and may represent an unusual presentation of polyclonal immunoglobulins, but cannot rule out the presence of a low level M protein. If clinically indicated, monoclonal protein analysis and serum free light chain analysis are suggested to evaluate further for monoclonal gammopathy. Normal [facility] Comment on above: Order Comment: Grisel molina Type: BLOOD SPECIMEN Ordering Facility: [facility] Address: [address] [place] [address] Performed By: #### L [id number] #### [facility] CLIA [id number] [address] [place] [address] [place] M-PROTEIN LOCATION Normal [facility] Comment on above: Order Comment: Grisel molina Type: BLOOD SPECIMEN Ordering Facility: [facility] Address: [address] [place] [address] Result Comment: Not Applicable. Performed By: #### L [id number] #### [facility] CLIA [id number] [address] [place] [address] [place] Protein Fractions [Interp] An atypical region of restricted mobility is identified on protein electrophoresis. Abnormal No definitive M protein is identified on protein electrophore sis. [facility] Comment on above: Order Comment: Grisel jesse Type: BLOOD SPECIMEN Ordering Facility: [facility] Address: [address] [place] [address] Performed By: #### L [id number] #### [facility] CLIA [id number] [address] [place] [address] [place] Protein.monoclonal Elph [Mass/Vol] 0.00 g/dL Normal <=0.00 [facility] Comment on above: Order Comment: Girsel jesse Type: BLOOD SPECIMEN Ordering Facility: [facility] Address: [address] [place] [id number] Performed By: #### L [id number] #### [facility] CLIA [id number] [address] [place], [place] [address] [place] SPE STAFF REVIEW Reviewed by MD Pari Sumner [facility] Comment on above: Order Comment: Speci men Type: BLOOD SPECIMEN Ordering Facility: [facility] Address: [address] [place] [address] Performed By: #### L [id number] #### [facility] CLIA [id number] [address] [place], [place] [address] [place] Phosphate SerPl-mCncon 02-03 Phosphate [Mass/Vol] 3.0 mg/dL Normal 2.7-4.8 [facility] Comment on above: Order Comment: Speci men Type: BLOOD SPECIMEN Ordering Facility: [facility] Address: [address] [place] [address] Performed By: #### 3 084-1, 2777-1, 99974-1, 2532-0 #### [facility] CLIA [id number] [address] [place] [address] 26402 Prot SerPl-mCncon 02-03-2023 Protein [Mass/Vol] 6.6 g/dL Normal 6.3-8.0 [facility] Comment on above: Order Comment: Speci men Type: BLOOD SPECIMEN Ordering Facility: [facility] Address: [address] [place] [address] Performed By: #### 3 084-1, 2777-1, 13731-5, 2532-0 #### [facility] CLIA [id number] [address] [place] [address] 86114 Urate SerPl-mCncon Urate [Mass/Vol] 4.5 mg/dL Normal 4.0-8.1 [facility] Comment on above: Order Comment: Speci men Type: BLOOD SPECIMEN Ordering Facility: [facility] Address: [address] [place] [address], [place] [address] Performed By: #### 3 084-1, 2777-1, 35324-6, 2532-0 #### [facility] CLIA [id number] [address] [place] [address] 06358 GLYCOHEMOGLOBIN A1Con 2022 ADA RECOMMENDATION SEE BELOW Normal [facility] Comment on above: Result Comment: ADA RECOMMENDED LIMIT 4.0 - 6.0 ADA THERAPEUTIC TARGET < 7.0 ACTION SUGGESTED > 7.0 Performed By: #### A 1C #### [facility] [address] [place] [address] Dr. Sandy Koch Glucose [Mass/Vol] 169 mg/dL Normal [facility] Comment on above: Performed By: #### A 1C #### [facility] [address] [place] [address] Dr. Sandy Koch HbA1c (Bld) [Mass fraction] 7.5 % Critically high 4.5-6.[address] [facility] Comment on above: Performed By: #### A 1C #### [facility] [address] [place] [address] Dr. Sandy Koch GLYCOHEMOGLOBIN A1Con 2021 ADA RECOMMENDATION SEE BELOW Normal [facility] Comment on above: Result Comment: ADA RECOMMENDED LIMIT 4.0 - 6.0 ADA THERAPEUTIC TARGET < 7.0 ACTION SUGGESTED > 7.0 Performed By: #### A 1C #### [facility] [address] [place] [address] Dr. Sandy Koch Glucose [Mass/Vol] 163 mg/dL Normal [facility] Comment on above: Performed By: #### A 1C #### [facility] [address] [place] [address] Dr. Sandy Koch HbA1c (Bld) [Mass fraction] 7.3 % Critically high 4.5-6.[address] [facility] Comment on above: Performed By: #### A 1C #### [facility] [address] [place] [address] Dr. Sandy Koch GLYCOHEMOGLOBIN A1Con 2021 ADA RECOMMENDATION SEE BELOW Normal [facility] Comment on above: Result Comment: ADA RECOMMENDED LIMIT 4.0 - 6.0 ADA THERAPEUTIC TARGET < 7.0 ACTION SUGGESTED > 7.0 Performed By: #### A 1C #### [facility] [id number] Sandy Koch Glucose [Mass/Vol] 160 mg/dL Normal [facility] Comment on above: Performed By: #### A 1C #### [facility] [id number] Sandy Koch HbA1c (Bld) [Mass fraction] 7.2 % Critically high 4.5-6.[address] [facility] Comment on above: Performed By: #### A 1C #### [facility] [address] [address] [address] Sandy Koch Coding Summaryon 09-25-2020 Coding Summary HTMLBase 64 XrjzosxoHCg0zBv+PGhlYWQ+PE1F URRgX02lnGEbxK3CK6bLWX1OVUBO SOYRBG5FEH5vrIN6RPhaS7IobaGo OmwdtQKcMK72DZl7HRY8tBqqOGmg jU6sxPMkY5k2VePpRW31vL72NNxg TTWxHmI8FiJiioyyeYIu P9qoGwUhvTYoLdd+PHRhYmxlIHdp DIJaNVlpHRRmQtDnsVmuHW6iBo6g ZGVyLWNvbGxhcHNlOiBj p9vzVRKbWRvhWI1xpJrbW9WpnAQ1 UHVnz1s6Vl24mEY+ARWmBFV6bHzh VVcnj024NkRnn5aiLNL5 pANaIEiqDEK4N10ij2L2AAYbMJWw PAW3fCW7oK4pfKdctzvaG4SjpLIi NaN3NLS8lDUpwE8gpDjf kljyfH5bIdm+P08FTL3YIDGQBF4R Ctw8Z6MwMlrjaYK+JB29EIKvGY71 rKQnwUGfy6wqsLw2KkNd VFNmTLA9zNlrQGyce7CpHOWnE75f lCZrt9T0JTGqwYyghISbPmSeoHP4 oZ6dQYwbulzjj4gdclfm Fwvhk8xzjk86wM03Y40xBLfoJRNq ADX6WORkSFZgwLchqo5fqA2iJh7+ BZych7wra6nfgLf2QfUy UXWahyNqmItuNGK7s8YsAv75L4Al oUewb6SoRry6iw27iQEtc7R9tSO5 ZDsqRJBhaP5qIRztRbU6 DVXoJtKxbV71tMNlVEypAe8wfRwi kRxgIY0cSNOtielnONQiaJ9sGPBz uXTjxTtvWM1lAXOmkldv v666EnJfWAI0CLBadBYrM7UwlX6p CsRfRAHvCRKuW8RvcRIoKPhgR106 UZnuPpT8KQYcanJzQ8Fq NZEypMfiCuL3n3F2Wx6Ni1Ifmkhz QGU6GNwxBSS0AoW4NoKzIeP6D6Lj Jad0XZPidSrqLJ7qQ4En TTSbnlrgwgwkkRL5HJWyBZQyrD03 pKWmORsqNh4fe2G8c310XNWmTWOa lA06Qa8koPsjNPFtrXXV aU5fnlsyl8yrtcoxEeLhDGKyUPd1 XCa5MXPyjWnvUkXhTFN0VgL8BFY0 xPFqlO1nbIdlfbbtyY3c Oyc+B94vtX8kYOW3WNG0maadALMx xkWaCU36EW80E5DdRfhtjGInkHP+ PGSgtoNdbJvkLW9mSdWa i9fbe9FoCUifG6AiSJMzGCpiSeb0 OAQtCRY2pCJ8pV5rVDAhUKzvh0K2 gTR8D5EoaoEpmf5ms1bu ATVyXWzqL09zlOJbq5X3EETizVG1 DMBecFxyJnZuaJ15Yrv+PGNvbGdy e8HfOjbrf6tkv1fdsEt4 SmDnRFGbouHfcRnnSNZ7p2HrAc35 X92qZTmqWODqPCVlALFzEVHnjMfo zx0hlO1mVg6+PGNvbCB3 rXN6wA0rJNMtDjA8WSomM418HeGr qUGyThsyx8knh5otmNk6HtCvHNNl kiDlcAlhRVX8l8XoCv54 V64fKPxtEDSbYYQmIAEgBGUnkIct ne1jaB5yWv6+IY9xj4ardf41vC98 dHI+OALvZZT8bXqsFXcm EIYmaZ5xJUxrItN7MZIgYrPduR85 tDCmTQddJc0fzElqhVhhTF9iFYUk vskuv708QvIen7jkWTNk cKHlABntTFM1J20ed8A7TRHrGRAs HJI5sAC8uP2evMavzdbexTVhxGvf xnGagAoqYJfsMEwoZ570 IHRvcDsnPlBhdGllbnQgTmFtZTo8 S8SlGwh4RUVsmVdqJR2fgEMdTNok Tq1lhAcvrPlnWR7qZGBs uimoq996AoUjf9fzADEynGHgYHwa WJA1S26wt6W1HCXhHAQnKZG0yNZ5 qJ1naXlqzimbrLJnmXil zrUxbSrpHHyvBTpwJ254ZUAcwQpl MhTnudQiYFOsyWT5NJ13VU61zBEc k1G7rUC6R1WtBQRsdesq turlcTM4CFKjWTOmkF63Rg9ieWgo Hl7uVWEoAFA1VXYtpHPbI1GsgH7a HbZjMCXgRCCjF0SubQRy MEmiX691RJwtTkM4YTOeozZnP0Ze FVEsiOezMpK9q0Q3By0GH4Z9IE70 FF67oTFng0C3qPK2I6Gv TBQvzkupsshouDG1TVLoKUGjiV80 Wu3omJqzOg8pSAGjVAH4BONweUXl G3XkiT5xAsOmPOXnQVKt D6FmsJHjFDjnN642AMasTmV9DOBk wpWeM6AuYFDrvKmgBtZ4y1A7Jv8B SSs3GC27UL81pGWtp1K0 gFC9W9YoNPWgxnzssqrlyGC7ANQp CYPrlW45Ed5oiTvwSx3gKBDcVCP9 HUSlnHIfQ1KoqX1zVnLk HFNsNVJuQ9FtuWJkAFirG062HEdn ZoY0VVPmkkCyR7RyOYRcjLmaJuK0 v4E5Qi7WLKYgSS11EXH5 vWW8MG25QT29V1WcZvngqAIujWD+ PHRhYmxlIHdpZHRoPScxMDAlJyBz nTnnXX9pKo9mMEWkMNEf kGfkkOHoMjSsf3rwQGQvMTbwHE5q uUjxD2RkzBE8TIZjw0g4Cn40L34o T3GqwGJ+XWSslAN8iTH6 kO4uFbDzMcS2TVplL386TnWtxZIs Qeqwp0mgc0otsZp4MiK7EZKhtsKc yJfaMXU0b4WtKw29N64b ZHsqGDPaZQGkWVCyNWLnjFcait8l wO0hKo4+GMBybIF4gOI8fO2uOdRh DhA7ZHxcE080EkZfhFTe Zhuwn4cnm0hlpOf0NhPeGSVmdgRh nYkiNXU4u5BsMh57O6EffPnfu6Ya Tny3rb61dVRnm9M2eJT8 H5NmSVMffwqkiVOmcLidUG9kMJUj nlxjQYIzqD2rEVZdR0b2PnEjZzU5 XGllI2ZcmhD6NNRjwHKc KVcbKYY0Z26xs7B2KPQqYEKnLHN3 jBC3nE3vsLtdtgdefGRnsYfoiwKz yWbyGVtgQNgqB555ABMm iOtlRVEodK1jYLYmgQMcdDhbCT5h UPKlwbovAz9MRD5NNakyC1NCURIU YT27XJ71zQNaf4R3tMI4 H6YvITJdmvrhrfcnsQN0BZKzFUDc kG40cGFyYSezIp7ug5K2g037EYBu UXGxrD40Ov8dsEjlUMGp sOAKeO7clmnpy8ysnwxdFrUdYDHv CKc6ZIk0ZETufAnhKkFjAKA5QtU5 BAY8sXYzoW9duHxnkiwv qB1iBko+QAOnEAoxGIh9KUzclBN+ RLVvOUT2zOweOOfdJDSmdY0xYKZs C9y0FeJzGhW4HZctK7Nl XPQzhsptSd00qH4kTaJhUgO1PFmf D7DmpxF1OWZdsXPfZWutCUP7M70d a6G6VHVrDMSkNNT0rII3 wX2asUhyokzksEVjaSjyrsBssWze TBywMZsjT457MXErwKwsKmk8RRlk XZGpVT78JC55wVEmg4W3 tHS4R8SlDJSkmjwdxfvsuYO9NGUr SFPcqS15sLChPJjcQe1dm7Y5q615 ODSjKCGseY68Vp7fzLdd HSUtlFGRtW6lhyyon7bgthfyKvDf HLUvXXy5JNy4CSVqsKsbFkPgHCT6 TuQ7ZGZ4dKMfaS4tkXhj ekjtiO3kBtv+TUFMRTwvdGQ+PHRk GXB4wDiuSHjaTJIbmN1eCVSkW0h3 OwVuEeR8LCqjF6DwYGJl dnqfNp00kJ9pGlMiSqB0JNcqK7Yc kaP6LVRwtWYtOCcuJIG7O47co0O2 ZZKtPQGhQQD4wCD0vO3z bGlnbjogbGVmdDsgdmVydGljYWwt WEhaQ342LEPrkSypQlHexBEQaJPm KIJ0ZD14NB62L7PjAkem dGFibGU+PHRhYmxlIHdpZHRoPScx YQSfXoTcsIdgOW0vFb7nERXwOYEk iIjmbVXaZsUud7cqXZYq VDtzKD0vgDkeY4XheTQ1CSIrb7l8 Dd48L64tC1TnkXU+ZYTemHE3oTC1 nA9uWwJpBpR7RAgcK757 OkIesOLxYsluw9hor0woyZp7BzEl UXYytsGtgLvlXUI9w7JdTg65W71p IHdpZHRoPSIyMCUiIHZh lOopxu7qnK3oVf8+RXHsyNT8vSF5 oY4jRdHiGsF0WUtkC192HjEifWCf LqpsI40pD8XouHN+PHRy Wok7XHRibWfyTT2vlRXdQGgqMf9b CQD6PcYdEkPkAScvG4TwCWRqtknd omnwgVM6RRUnTFSzyP85 Tq5dtHlyJe4jPDIzBVR7QXRmuFBb X0PlyD7gRxJwTXMqFPZrL1KflJDw EGboV019ZEjiSkH4HTJe ieGjE0AyIWSwgClpAtC3q5I9De2G cDlnaSUzUZ8sSxIfCKp8G2QhVeo8 PSRorNkbPG1spZReVWdz Tz2ueNcyjZmzLK0pWVXvzlktz121 OvFtz8kdNELogGAaXSfdAZR1D20q m4P6ODQwPUBbCFW6mZA5 zO2rdHxmbawivIIuwQfiqvGybGdc ZVctAIcwR872FPTraNfdXaQTLbw9 X4OhVca6UUPmlBuwVI0t pEPrDNhxYb3vsFrseGwyPW4dZJGr xrhwj666TsLmw9utDWOzaXEpIVfr RPK1G46ys8H4PCVgTGLu KTJ0qQP5xT5gqGgevkplpRTntBqj khWioZlaPYghWSckU262OMTrkIlj Ne5EYxc7R3SiBqs1GLBg sSpiQA4ikWSsZWirEf4qzRyvzRin OW2qXZRmrrxoh026BuWku1jmWDJb tBZjXBpeHQZ8R99au8I6 WZHoVJHgFXA1qMC1wM1yoDztuncj rTLetEcjlfOsgZfsRHjuLPrbI983 IHRvcDsnPlBheWVyOjwv dGQ+KC16to09S9TbSmjnEnr7OHCs AVA5aFV0oC4hWDUnFLhti0K1bHT5 P6WitsLyro1vf9jqHARw ZTo (more content not included)... [facility] Consent Formson 09-21-2020 Consent Forms [id number] [facility] Inpatient Patient Summaryon 09-20-2020 Inpatient Patient Summary [address] [id number] Patient Discharge Instructions Name: RAFAT BELLA Dania : 1940 Patient Address: [address] [place] [address] Primary Care Provider: Name: Danilo Thakkar After you are discharged if you find you have any questions, please, call [phone] ext [phone] to speak to a nurse. Discharge Diagnosis: Carpal tunnel syndrome on right Prescription Information: If you have been given a prescription for narcotics, seek immediate medical attention if you have any difficulty breathing or any sudden status changes such as confusion and sleepiness. If you or anyone you know is experiencing suicidal thoughts, mental health, alcohol and/or drug addiction problems; contact the [facility] 14/10 Crisis Hotline -Text 4HHTU to 387606. If you received any narcotics, sedation, or [...] business decisions or sign any legal documents [facility] would like to thank you for allowing us to assist you with your healthcare needs. The following includes patient education materials and information regarding your injury/illness. RAFAT BELLA has been given the following list of follow-up instructions, prescriptions, and patient education materials: Follow-up Instructions With: Address: When: Diego Richards [address] [place] [address], [address] [place] [address] Business (1) 09/28/2020 10:00 AM Medications During [...] while awake (more content not included)... Normal [facility] MAGR Intraoperative Recordon 09-20-2020 MAGR Intraoperative Record MAGR Intra-Op Record Summary Primary Physician: Diego Richards DO Finalized Date/Time: 09/20/20 13:39:22 Pt. Name: JENA RAFAT Cruz/Sex: 1940 MALE Med Rec #: [id number] Physician: Diego Richards DO Financial #: [id number] Pt. Type: D Room/Bed: / Admit/Disch: 09/20/20 10:33:00 - Institution: Case Times MAGR Entry 1 Patient In Room Time 09/20/20 12:20:00 Out Room Time 09/20/20 13:13:00 Anesthesia Start Time 09/20/20 12:34:00 Stop Time 09/20/20 13:11:00 Surgery Start Time 09/20/20 12:36:00 Stop Time 09/20/20 13:11:00 Last Modified By: Ellen Garay RN 09/20/20 13:37:34 Case Attendance MAGR Entry 1 Entry 2 Entry 3 Case Attendee Diego Richards Stephanie RN Adkins, Brittany E CSFA Andrew DO Role Performed Surgeon - Primary Home Improvement Advisor Scrub Personnel Time In 09/20/20 12:20:00 09/20/20 [...] Tunnel Release Primary Procedure Yes Primary Surgeon Diego Richards Right Krish DO Surgeon Comment RIGHT CARPAL TUNNEL Start [...] Verification Initia (more content not included)... [facility]2020 [facility] Preoperative Record MAGR Pre-Op Record Summary Primary Physician: Diego Richards DO Finalized Date/Time: 09/20/20 13:52:57 Pt. Name: RAFAT BELLA/Sex: 1940 MALE Med Rec #: [id number] Physician: Diego Richards DO Financial #: [id number] Pt. Type: D Room/Bed: / Admit/Disch: 09/20/20 [...] By: Sherrie Merino RN 09/20/20 13:52 Normal [facility] Operative Report - Surgeon/P pamela 09-20-2020 Operative [...] applied [Electronically Signed on: 09/20/2020 13:49 EDT] Diego Richards DO [Verified on: 09/20/2020 13:49 EDT] Diego Richards DO [facility] POCT Glucose Levelon 021 Glucose [Mass/Vol] 210 mg/dL High 74-118 [facility] Comment on above: Performed By: #### 4 [id number] #### [facility] (DEFAULT) [address] [place] [address] Patient Handouton 09-20-[address] WILD POST OPERATIVE CARPEL TUNNEL INSTRUCTIONS SURGEONS WRITTEN INSTRUTCTIONS: -Keep your hand elevated above your elbow for the first 24 hours after surgery -Wiggle your fingers frequently while awake -DO NOT lift heavy objects or hotel night auditor forcefully with your hand -Change your dressing [...] or concerns, please call the office at [phone] -Follow up as scheduled [facility] Progress Note - Nurseon 08-23 Progress Note - Nurse Dr. Richards's office called- informed Zakiya of needing patient's consent for surgery and if that patient is on coumadin and had labwork done yesterday at the [facility] -if we could get copies of those fax'd to us- Zakiya stated she would send. [Electronically Signed on: 09/19/2020 13:09 EDT] Sherrie Merino RN [Verified on: 09/19/2020 13:09 EDT] Sherrie Merino RN [facility] Coding Summary.on 04-29-2017 Coding Summary. CODING DATE: FINAL [facility] STATUS: Home (Routine DC) PAYOR: Medicare APC [...] Shawna Cantu Date Saved: 04/29/2017 12:57 pm [facility] Coding Summary.on 04-25-2017 Coding Summary. CODING DATE: FINAL [facility] STATUS: Home (Routine DC) PAYOR: Medicare APC [...] Shawna Cantu Date Saved: 04/25/2017 07:32 am Normal [facility] MRI Spine Thoracic w/ + w/o Contraston [...] LINETTE,Technical CommentsMultiHanceContrast amount in ml's: 20 Normal [facility] Creatinineon 04-24-2017 Creatinine 1.6 mg/dL High 0.5-1.3 [facility] Comment on above: Performed By: #### 2 [id number] ####[facility] [address] [place] [address] eGFRon 04-24-2017 eGFR (black) 51 mL/min/1.73 m2 Low >=59 [facility] Comment on above: Order Comment: Order added by Discern Expert. Result Comment: eGFR is race adjusted. AA=. Performed By: #### 2 [id number] ####[facility] [address] [place] [address] eGFR (non-black) 42 mL/min/1.73 m2 Low >=59 F [facility] Comment on above: Order Comment: Order added by Discern Expert. Result Comment: Telegraphic Typewriter Operator fabio kidney disease could be indicated at eGFR's of less than 60 mL/min/1.73m2. Kidney failure is indicated at less than 15 mL/min/1.73m2. Performed By: #### 2 [id number] ####[facility] [address] [place] [address] Vital Signs Date Time Vital Sign Value Performing Clinician Facility 08-15-2023 11:31-0400 Body height 177.8 cm [facility] 08-15-2023 11:31-0400 Body mass index (BMI) [Ratio] 36.9 kg/m2 [facility] 08-15-2023 11:31-0400 Body weight 116.8 kg [facility] 08-15-2023 11:31-0400 Diastolic blood pressure 70 mm[Hg] [facility] 08-15-2023 11:31-0400 Heart rate 62 /min [facility] 08-15-2023 11:31-0400 Respiratory rate 16 /min [facility] 08-15-2023 11:31-0400 Systolic blood pressure 125 mm[Hg] [facility] 08-11-2023 13:01-0400 Body mass index (BMI) [Ratio] 37.39 kg/m2 Anibal Hermosillo MD Work Phone: [facility] 08-11-2023 13:01-0400 Body temperature 97.5 [degF] Anibal Hermosillo MD Work Phone: [facility] 08-11-2023 13:01-0400 Body weight 116.6 kg Anibal Hermosillo MD Work Phone: [facility] 08-11-2023 13:01-0400 Diastolic blood pressure 68 mm[Hg] Anibal Hermosillo MD Work Phone: [facility] 08-11-2023 13:01-0400 Heart rate 76 /min Anibal Hermosillo MD Work Phone: [facility] 08-11-2023 13:01-0400 Respiratory rate 16 /min Anibal Hermosillo MD Work Phone: [facility] 08-11-2023 13:01-0400 SaO2% (BldA) [Mass fraction] 94 % Anibal Hermosillo MD Work Phone: [facility] 08-11-2023 13:01-0400 Systolic blood pressure 108 mm[Hg] Anibal Hermosillo MD Work Phone: [facility] 07-04-2023 14:44-0400 Body height 177.8 cm [facility] 07-04-2023 14:44-0400 Body mass index (BMI) [Ratio] 37.5 kg/m2 [facility] 07-04-2023 14:44-0400 Body weight 118.89 kg [facility] 07-04-2023 14:44-0400 Diastolic blood pressure 69 mm[Hg] [facility] 07-04-2023 14:44-0400 Heart rate 82 /min [facility] 07-04-2023 14:44-0400 Respiratory rate 20 /min [facility] 07-04-2023 14:44-0400 Systolic blood pressure 132 mm[Hg] [facility] 05-13-2023 12:24-0500 Body height 177.8 cm Julian Juarez MD Work Phone: [facility] 05-13-2023 12:24-0500 Body mass index (BMI) [Ratio] 37.52 kg/m2 Julian Juarez MD Work Phone: [facility] 05-13-2023 12:24-0500 Body temperature 97.59 [degF] Julian Juarez MD Work Phone: [facility] 05-13-2023 12:24-0500 Body weight 118.62 kg Julian Juarez MD Work Phone: [facility] 01-01-2023 14:00-0400 Body height 177.8 cm Danilo Ball Other [facility] Other 01-01-2023 14:00-0400 Body mass index (BMI) [Ratio] 37.02 kg/m2 Danilo Ball Other [facility] Other 01-01-2023 14:00-0400 Body weight 117.03 kg Danilo Ball Other [facility] Other 01-01-2023 14:00-0400 Diastolic blood pressure 70 mm[Hg] Danilo Ball Other [facility] Other 01-01-2023 14:00-0400 Respiratory rate 16 /min Danilo Ball Other [facility] Other 01-01-2023 14:00-0400 Systolic blood pressure 157 mm[Hg] Danilo Ball Other [facility] Other 10-01-2022 14:00-0400 Body height 177.8 cm Danilo Ball Other [facility] Other 10-01-2022 14:00-0400 Body mass index (BMI) [Ratio] 37.16 kg/m2 Danilo Ball Other [facility] Other 10-01-2022 14:00-0400 Body weight 117.48 kg Danilo Ball Other [facility] Other 10-01-2022 14:00-0400 Diastolic blood pressure 89 mm[Hg] Danilo Ball Other [facility] Other 10-01-2022 14:00-0400 Respiratory rate 20 /min Danilo Ball Other [facility] Other 10-01-2022 14:00-0400 Systolic blood pressure 162 mm[Hg] Danilo Ball Other [facility] Other 07-02-2022 16:00-0400 Body height 177.8 cm Danilo Ball Other [facility] Other 07-02-2022 16:00-0400 Body mass index (BMI) [Ratio] 37.33 kg/m2 Danilo Ball Other [facility] Other 07-02-2022 16:00-0400 Body weight 118.03 kg Danilo Ball Other [facility] Other 07-02-2022 16:00-0400 Diastolic blood pressure 78 mm[Hg] Danilo Ball Other [facility] Other 07-02-2022 16:00-0400 Respiratory rate 12 /min Danilo Ball Other [facility] Other 07-02-2022 16:00-0400 Systolic blood pressure 122 mm[Hg] Danilo Ball Other [facility] Other 04-02-2022 14:30-0500 Body height 177.8 cm Danilo Ball Other [facility] Other 04-02-2022 14:30-0500 Body mass index (BMI) [Ratio] 37.76 kg/m2 Danilo Ball Other [facility] Other 04-02-2022 14:30-0500 Body weight 119.39 kg Danilo Ball Other [facility] Other 04-02-2022 14:30-0500 Diastolic blood pressure 70 mm[Hg] Danilo Thakkar Other [facility] Other 04-02-2022 14:30-0500 Respiratory rate 20 /min Danilo Thakkar Other [facility] Other 04-02-2022 14:30-0500 Systolic blood pressure 118 mm[Hg] Danilo Thakkar Other [facility] Other Encounters Encounter Date Encounter Type Care Provider Facility Start: 09-23-2023 End: 09-23-2023 ambulatory DIEGO RICHARDS Not Available Start: 09-09-2023 End: 09-09-2023 ambulatory DIEGO RICHARDS Not Available Start: 08-29-2023 End: 08-29-2023 ambulatory DANILO THAKKAR Facility:[facility] Start: 08-28-2023 End: 08-28-2023 ambulatory DIEGO RICHARDS Not Available Start: 08-20-2023 ambulatory [facility] Work Phone: Start: 08-20-2023 Non-patient / Non-visit [facility] Work Phone: Start: 08-15-2023 End: 08-15-2023 ambulatory [facility] Work Phone: Start: 08-15-2023 End: 08-15-2023 [facility] Work Phone: Start: 08-11-2023 Telephone encounter Anibal neri MD Work Phone: [facility] Comment on above: Results Start: 08-11-2023 End: 08-11-2023 ambulatory DANILO THAKKAR Facility:[facility] Start: 08-11-2023 End: 08-11-2023 Office outpatient visit 25 minutes Anibal Hermosillo MD Work Phone: Hematology/Oncology Comment on above: 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 (HCC) (Primary Dx); Flank pain; Mild episode of recurrent major depressive disorder (HCC); Thrombocytopenia (HCC); Stage 3b chronic kidney disease (HCC); Stage 3a chronic kidney disease (HCC) Start: 08-07-2023 End: 08-07-2023 ambulatory WEN ALDRIDGE Not Available Start: 08-04-2023 Non-patient / Non-visit [facility] Work Phone: Start: 08-04-2023 End: 08-04-2023 ambulatory DANILO THAKKAR Facility:[facility] Start: 07-14-2023 Non-patient / Non-visit [facility] Work Phone: Start: 07-11-2023 Non-patient / Non-visit [facility] Work Phone: Start: 07-04-2023 End: 07-04-2023 ambulatory [facility] Work Phone: Start: 07-04-2023 End: 07-04-2023 Patient encounter procedure [facility] Work Phone: Start: 05-29-2023 End: 05-29-2023 ambulatory WEN ALDRIDGE Not Available Start: 05-26-2023 Non-patient / Non-visit [facility] Work Phone: Start: 05-16-2023 ambulatory [facility] Start: 05-13-2023 End: 05-13-2023 ambulatory [facility] Start: 05-13-2023 End: 05-13-2023 Office outpatient new 60 minutes Julian Juarez MD Work Phone: [facility] Comment on above: Parotid mass (Primar y Dx) Start: 02-27-2023 End: 02-27-2023 ambulatory Danilo Thakkar Other [facility] Other Start: 02-27-2023 Telephone encounter Danilo Ball [facility] Start: 02-19-2023 End: 02-19-2023 ambulatory DEEPTHI HERNÁNDEZ Not Available Start: 02-10-2023 End: 02-10-2023 ambulatory DANILO E AMBER Facility:[facility] Start: 02-04-2023 End: 02-04-2023 ambulatory Danilo Ball Other [facility] Other Start: 02-04-2023 Telephone encounter Danilo Ball [facility] Start: 02-03-2023 Telephone encounter Danilo Ball [facility] Start: 02-03-2023 End: 02-03-2023 ambulatory DANILO Grey BALL [facility] Other Start: 01-30-2023 End: 01-30-2023 ambulatory Danilo Ball Other [facility] Other Start: 01-30-2023 Telephone encounter Danilo Ball [facility] Start: 01-21-2023 End: 01-21-2023 ambulatory Danilo Ball Other [place] Other Start: 01-21-2023 Telephone encounter Danilo Ball [facility] Start: 01-09-2023 End: 01-09-2023 ambulatory Danilo Ball Other [place] Other Start: 01-09-2023 Telephone encounter Danilo Ball [facility] Start: 01-06-2023 End: 01-06-2023 ambulatory Danilo Ball Other [place] Other Start: 01-06-2023 Telephone encounter Danilo Ball [facility] Start: 01-01-2023 End: 01-01-2023 ambulatory Danilo Ball Other [place] Other Start: 01-01-2023 Office outpatient vi sit 25 minutes Danilo Ball [facility] Start: 10-01-2022 End: 10-01-2022 ambulatory Danilo Ball Other [place] Other Start: 10-01-2022 Office outpatient vi sit 25 minutes Danilo Ball [facility] Start: 08-01-2022 End: 08-01-2022 ambulatory Danilo Ball Other [place] Other Start: 08-01-2022 Telephone encounter Danilo Ball [facility] Start: 07-22-2022 End: 08-21-2022 ambulatory IVY H FAWWAD Facility:[facility] Start: 07-03-2022 End: 07-03-2022 ambulatory Danilo Ball Other [place] Other Start: 07-03-2022 Telephone encounter Danilo Ball [facility] Start: 07-02-2022 End: 07-02-2022 ambulatory Danilo Ball Other [place] Other Start: 07-02-2022 Patient encounter procedure Danilo Ball [facility] Start: 06-24-2022 End: 07-19-2022 ambulatory IVY H FAWWAD Facility:[facility] Start: 05-31-2022 End: 05-31-2022 ambulatory Danilo Ball Other [place] Other Start: 05-31-2022 Telephone encounter Danilo Ball [facility] Start: 05-22-2022 End: 06-21-2022 ambulatory IVY H FAWWAD Facility:[facility] Start: 05-10-2022 End: 05-10-2022 ambulatory Danilo Ball Other [place] Other Start: 05-10-2022 Telephone encounter Danilo Ball [facility] Start: 05-01-2022 End: 05-01-2022 ambulatory Danilo Ball Other [place] Other Start: 05-01-2022 Telephone encounter Danilo Ball [facility] Start: 04-30-2022 End: 05-01-[address] DANILO THAKKAR [facility] [place] Other Start: 04-30-2022 Telephone encounter [facility] Start: 04-24-2022 End: 05-22-2022 ambulatory IVY H FAWWAD Facility:[facility] Start: 04-02-2022 End: 04-02-2022 ambulatory Danilo Thakkar Other [facility] [place] Other Start: 04-02-2022 Office outpatient vi sit 25 minutes Danilo Thakkar [facility] Start: 03-25-2022 End: 04-24-2022 ambulatory IVY H FAWWAD Facility:[facility] Start: 02-21-2022 End: 03-24-2022 ambulatory IVY H FAWWAD Facility:[facility] Start: 02-11-2022 End: 02-11-2022 ambulatory Anibal Hermosillo MD Work Phone: Hematology/Oncology Comment on above: 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) [C90.01 (ICD-10-CM)] (Primary Dx) Start: 02-11-2022 End: 02-11-2022 Telemedicine consultation with patient Anibal Hermosillo MD Work Phone: [email or web address] Start: 02-01-2022 End: 02-04-2022 ambulatory Anibal Hermosillo MD Work Phone: Hematology/Oncology Comment on above: 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 (HCC) (Primary Dx) Start: 02-01-2022 End: 02-04-2022 Telemedicine consultation with patient Anibal Hermosillo MD Work Phone: [email or web address] Start: 01-22-2022 End: 02-20-2022 ambulatory IVY H FAWWAD Facility:[facility] Start: 01-09-2022 End: 01-10-[address] DANILO THAKKAR Facility:[facility] Start: 12-23-2021 End: 01-21-2022 ambulatory IVY H FAWWAD Facility:[facility] Start: 11-22-2021 End: 12-22-2021 ambulatory IVY H [facility] Facility:H1 Start: 10-22-2021 End: 11-21-2021 ambulatory SHAIKH Jalyn PEDRO Facility:[facility]1 Start: 10-03-2021 End: 10-04-[address] DANILO THAKKAR Facility:[facility]1 Start: 10-03-2021 End: 10-03-2021 ambulatory SHAIKH Jalyn PEDRO Facility:[facility]1 Start: 07-02-2021 Adult health examination Danilo Thakkar Other [facility] [place] [facility] Other Start: 04-28-2017 End: 04-29-2017 Ambulatory [place] Millerchayoz[place] [place]: 04-24-2017 End: 04-25-2017 Ambulatory Shawn Millerchayozoraida [place] [place] Start: 02-03-2017 End: 02-04-2017 Ambulatory [id number] UNKNOWN Hoclarke [place] [place] Procedures Date Procedure Procedure Detail Performing Clinician Start: 10-05-2015 Screening for malign ant neoplasm of colon Danilo Thakkar Other Start: 10-05-2015 Screening for malign ant neoplasm of prostate Danilo Amber Other Depression screening Dwaynejaylan Thakkar Other Depression screening Dwaynejaylan Thakkar Other Plan of Treatment Date Care Activity Detail Author Start: 02-07-2025 DIABETES SCREEN DIABETES SCREEN [facility] Start: 07-27-2024 DIABETES SCREEN DIABETES SCREEN [facility] Start: 11-10-2023 End: 11-10-2023 Follow-up encounter 11/10/2023 1:30 PM EDT Visit (SP) Office Hematology/Oncology [address] [place] [address] Anibal Hermosillo MD [address] [place] [address] 3 month follow up Hematology/Oncology Comment on above: 3 month follow up Start: 11-03-2023 End: 11-03-2023 Patient encounter procedure 11/03/2023 1:30 PM EDT Office Visit [facility] [address] [place] [address] [facility] Comment on above: 3 month lab Start: 08-29-2023 End: 08-29-2023 Patient encounter procedure 08/29/2023 1:00 PM EDT Appointment Radiology Pet [facility] [address] [facility] [place] [address] Pet scan / Nurse triage to call results Radiology Pet CT Comment on above: Pet scan / Nurse tri age to call results Start: 08-20-2023 Patient referral [facility] Work Phone: Start: 08-11-2023 End: 08-10-2024 [id number] [Mass/volume] in Serum or Plasma B2 MICROGLOBULIN Lab Routine 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 (HCC) Expected: 08/11/2023, Expires: 08/10/2024 [facility] Comment on above: Expected: 08/11/2023 , Expires: 08/10/2024 Start: 08-11-2023 End: 08-10-2024 Calcium.ionized [Moles/volume] in Blood CALCIUM, IONIZED Lab Routine 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 (HCC) Expected: 08/11/2023, Expires: 08/10/2024 [facility] Comment on above: Expected: 08/11/2023 , Expires: 08/10/2024 Start: 08-11-2023 End: 08-10-2024 CBC W Auto Differential panel - Blood COMPLETE BLOOD COUNT AND DIFFERENTIAL Lab Routine 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 (HCC) Expected: 08/11/2023, Expires: 08/10/2024 [facility] Comment on above: Expected: 08/11/2023 , Expires: 08/10/2024 Start: 08-11-2023 End: 08-10-2024 Comprehensive metabolic 2000 panel - Serum or Plasma COMPREHENSIVE METABOLIC PANEL Lab Routine 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 (HCC) Expected: 08/11/2023, Expires: 08/10/2024 [facility] Comment on above: Expected: 08/11/2023 , Expires: 08/10/2024 Start: 08-11-2023 End: 11-10-2023 KAPPA/COTA,FREE,SER KAPPA/COTA,FREE,SER Lab Routine 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 (HCC) Expected: 08/11/2023, Expires: 11/10/2023 [facility] Comment on above: Expected: 08/11/2023 , Expires: 11/10/2023 Start: 08-11-2023 End: 08-10-2024 Lactate dehydrogenase [Enzymatic activity/volume] in Serum or Plasma LACTATE DEHYDROGENASE Lab Routine 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 (HCC) Expected: 08/11/2023, Expires: 08/10/2024 [facility] Comment on above: Expected: 08/11/2023 , Expires: 08/10/2024 Start: 08-11-2023 End: 08-10-2024 MONOCLONAL PROTEIN, SERUM (BLOOD) MONOCLONAL PROTEIN, SERUM (BLOOD) Lab Routine 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 (HCC) Expected: 08/11/2023, Expires: 08/10/2024 [facility] Comment on above: Expected: 08/11/2023 , Expires: 08/10/2024 Start: 08-11-2023 End: 08-10-2024 Phosphate [Mass/volume] in Serum or Plasma PHOSPHORUS INORGANIC Lab Routine 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 (HCC) Expected: 08/11/2023, Expires: 08/10/2024 [facility] Comment on above: Expected: 08/11/2023 , Expires: 08/10/2024 Start: 08-11-2023 End: 08-10-2024 PROTEIN ELECTROPHORESIS SERUM W/INTERP PROTEIN ELECTROPHORESIS SERUM W/INTERP Lab Routine 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 (HCC) Expected: 08/11/2023, Expires: 08/10/2024 [facility] Comment on above: Expected: 08/11/2023 , Expires: 08/10/2024 Start: 08-11-2023 End: 08-10-2024 Urate [Mass/volume] in Serum or Plasma URIC ACID Lab Routine 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 (HCC) Expected: 08/11/2023, Expires: 08/10/2024 [facility] Comment on above: Expected: 08/11/2023 , Expires: 08/10/2024 Start: 08-04-2023 Hemoglobin A1c measurement HbA1C [facility] Start: 03-24-2023 Advance Directive Discussion Advance Directive Discussion [facility] Start: 02-19-2023 COVID-19 Vaccine ( season) COVID-19 Vaccine () [facility] Start: 02-19-2023 Covid-19 Vaccine () Covid-19 Vaccine () [facility] Start: 08-11-2022 End: 02-11-2023 [id number] [Mass/volume] in Serum or Plasma B2 MICROGLOBULIN B Lab Routine 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) [C90.01 (ICD-10-CM)] Expected: 08/11/2022 (Approximate), Expires: 02/11/2023 [facility] Work Phone: Comment on above: Expected: 08/11/2022 (Approximate), Expires: 02/11/2023 Start: 08-11-2022 End: 02-11-2023 Calcium.ionized [Moles/volume] in Blood CALCIUM IONIZED BLOOD Lab Routine 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) [C90.01 (ICD-10-CM)] Expected: 08/11/2022 (Approximate), Expires: 02/11/2023 [facility] Work Phone: Comment on above: Expected: 08/11/2022 (Approximate), Expires: 02/11/2023 Start: 08-11-2022 End: 02-11-2023 CBC W Auto Differential panel - Blood CBC + DIFF Lab Routine 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) [C90.01 (ICD-10-CM)] Expected: 08/11/2022 (Approximate), Expires: 02/11/2023 [facility] Work Phone: Comment on above: Expected: 08/11/2022 (Approximate), Expires: 02/11/2023 Start: 08-11-2022 End: 02-11-2023 Comprehensive metabolic 2000 panel - Serum or Plasma COMP METABOLIC PANEL Lab Routine 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) [C90.01 (ICD-10-CM)] Expected: 08/11/2022 (Approximate), Expires: 02/11/2023 [facility] Work Phone: Comment on above: Expected: 08/11/2022 (Approximate), Expires: 02/11/2023 Start: 08-11-2022 End: 10-11-2022 KAPPA/COTA,FREE,SER KAPPA/COTA,FREE,SER Lab Routine 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) [C90.01 (ICD-10-CM)] Expected: 08/11/2022 (Approximate), Expires: 10/11/2022 [facility] Work Phone: Comment on above: Expected: 08/11/2022 (Approximate), Expires: 10/11/2022 Start: 08-11-2022 End: 02-11-2023 Lactate dehydrogenase [Enzymatic activity/volume] in Serum or Plasma LD LACTATE DEHYDRO Lab Routine 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) [C90.01 (ICD-10-CM)] Expected: 08/11/2022 (Approximate), Expires: 02/11/2023 [facility] Work Phone: Comment on above: Expected: 08/11/2022 (Approximate), Expires: 02/11/2023 Start: 08-11-2022 End: 02-11-2023 MONOCLONAL PROTEIN, SERUM (BLOOD) MONOCLONAL PROTEIN, SERUM (BLOOD) Lab Routine 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) [C90.01 (ICD-10-CM)] Expected: 08/11/2022 (Approximate), Expires: 02/11/2023 [facility] Work Phone: Comment on above: Expected: 08/11/2022 (Approximate), Expires: 02/11/2023 Start: 08-11-2022 End: 02-11-2023 Phosphate [Mass/volume] in Serum or Plasma PHOSPHORUS INORGANIC Lab Routine 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) [C90.01 (ICD-10-CM)] Expected: 08/11/2022 (Approximate), Expires: 02/11/2023 [facility] Work Phone: Comment on above: Expected: 08/11/2022 (Approximate), Expires: 02/11/2023 Start: 08-11-2022 End: 02-11-2023 PROTEIN ELECTROPHORESIS SERUM W/INTERP PROTEIN ELECTROPHORESIS SERUM W/INTERP Lab Routine 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) [C90.01 (ICD-10-CM)] Expected: 08/11/2022 (Approximate), Expires: 02/11/2023 [facility] Work Phone: Comment on above: Expected: 08/11/2022 (Approximate), Expires: 02/11/2023 Start: 08-11-2022 End: 02-11-2023 Urate [Mass/volume] in Serum or Plasma URIC ACID BLOOD Lab Routine 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) [C90.01 (ICD-10-CM)] Expected: 08/11/2022 (Approximate), Expires: 02/11/2023 [facility] Work Phone: Comment on above: Expected: 08/11/2022 (Approximate), Expires: 02/11/2023 Start: 03-24-2021 ADVANCE DIRECTIVE DISCUSSION ADVANCE DIRECTIVE DISCUSSION [facility] Start: 03-24-2021 DEPRESSION ASSESSMENT DEPRESSION ASS ESSMENT [facility] Start: 01-24-2016 PNEUMOCOCCAL: 65+ (2 - PCV) PNEUMOCOCCAL: 65+ (2 - PCV) [facility] Start: 12-31-2012 DTaP/Tdap/Td Vaccine s (1 - Tdap) DTaP/Tdap/Td Vaccines (1 - Tdap) [facility] Start: 12-31-2012 Urine microalbumin profile DTaP,Tdap,Td Vaccine (1 - Tdap) [facility] Start: 2001 RSV Vaccine (1 - 1-d ose 60+ series) RSV Vaccine (1 - 1-dose 60+ series) [facility] Start: 01-30-1960 SHINGRIX VACCINE (1 of 2) QUICK GRIX VACCINE (1 of 2) [facility] Start: 01-30-1960 Urine microalbumin profile DTAP,TDAP,TD (1 - Tdap) [facility] Start: 01-30-1960 Zoster Vaccines (1 of 2) Zoster Vacc uziel (1 of 2) [facility] Start: 1959 Hepatitis B surface antibody level LDL Cholesterol [facility] Start: 1951 Diabetic foot examination Diabetic F oot Exam [facility] Start: 1951 Glaucoma screening Dilated Retinal E xam [facility] Start: 1951 Hepatitis B screening Urine Al bumin:Creatinine Ratio [facility] Start: 1941 Lipid panel Lipid Panel [facility] Start: 1941 Medicare Annual Well ness Visit Medicare Annual Wellness Visit (AWV) [facility] Comprehensive metabo lic 2000 panel - Serum or Plasma [facility] Microalbumin [Mass/volume] in Urine [facility] Patient referral [facility] Work Phone: End: 09-09-2024 PET+CT Whole body Bone W [id number] IV NM PET/CT WHOLE BODY SUBSEQUENT Radiology Routine 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 (HCC) 1 Occurrences starting 08/11/2023 until 09/09/2024 [facility] Work Phone: Comment on above: 1 Occurrences starti ng 08/11/2023 until 09/09/2024 XR Chest 2 Views [facility] XR Lumbar spine 2 or 3 Views [facility] XR Thoracic spine 3 Views [facility] Immunizations Immunization Date Immunization Notes Care Provider [facility] 01-01-2023 influenza, high dose seasonal, preservative-free Danilo Thakkar Other [place] Other 01-01-2023 influenza virus vaccine, unspecified formulation [facility] 01-02-2022 influenza (aIIV4) vaccine, age 65+ yr, quadrivalent, PF (FLUAD QUAD) Anibal Hermosillo MD Work Phone: [facility] 01-02-2022 influenza virus vaccine, split virus (incl. purified surface antigen) Danilo Thakkar Other [facility] Other 01-02-2022 influenza virus vaccine, unspecified formulation [facility] 10-01-2021 COVID-19 original vaccine, age 12+ yr, monovalent (PFIZER-BIONTCarte Blanche - HANNA TOP) Anibal Hermosillo MD Work Phone: [facility] 01-12-2021 COVID-19 original vaccine, age 12+ yr, monovalent (PFIZER-BIONTECH - PURPLE TOP) Anibal Hermosillo MD Work Phone: [facility] 12-20-2020 influenza virus vaccine, split virus (incl. purified surface antigen) Danilo Thakkar Other [facility] Other 12-20-2020 influenza virus vaccine, unspecified formulation [facility] 12-20-2020 Seasonal trivalent influenza vaccine, adjuvanted, preservative free Anibal Hermosillo MD Work Phone: [facility] 05-11-2020 COVID-19 original vaccine, age 12+ yr, monovalent (PFIZER-BIONTECH - PURPLE TOP) Anibal Hermosillo MD Work Phone: [facility] 04-26-2020 COVID-19 Vaccine Pfi zer - Documentation Purposes Only Danilo Thakkar Other [facility] 04-20-2020 COVID-19 original vaccine, age 12+ yr, monovalent (PFIZER-BIONTECH - PURPLE TOP) Anibal Hermosillo MD Work Phone: [facility] 11-26-2019 influenza virus vaccine, split virus (incl. purified surface antigen) Danilo Thakkar Other [place] Other 11-26-2019 influenza virus vaccine, unspecified formulation [facility] 01-20-2019 influenza virus vaccine, split virus (incl. purified surface antigen) Danilo Thakkar Other [place] Other 01-20-2019 influenza virus vaccine, unspecified formulation [facility] 01-13-2018 influenza virus vaccine, split virus (incl. purified surface antigen) Danilo Thakkar Other [place] Other 01-13-2018 influenza virus vaccine, unspecified formulation [facility] 01-13-2018 Seasonal trivalent influenza vaccine, adjuvanted, preservative free Anibal Abhyankar MD Work Phone: [facility] 01-08-2017 influenza virus vaccine, split virus (incl. purified surface antigen) Danilo Thakkar Other [facility] Other 01-08-2017 influenza virus vaccine, unspecified formulation [facility] 01-07-2017 influenza, high dose seasonal, preservative-free Anibal Hermosillo MD Work Phone: [facility] 12-23-2016 influenza, injectabl e, quadrivalent, preservative free Anibal Hermosillo MD Work Phone: [facility] 01-31-2016 influenza virus vaccine, split virus (incl. purified surface antigen) Danilo Thakkar Other [facility] Other 01-31-2016 influenza virus vaccine, unspecified formulation [facility] 03-09-2015 pneumococcal conjuga te vaccine, 13 valent Danilo Thakkar Other [facility] 01-23-2015 pneumococcal polysaccharide vaccine, 23 valent Anibal Hermosillo MD Work Phone: [facility] 03-08-2014 pneumococcal Conjuga te, unspecified formulation; Translations: [Need for prophylactic vaccination against Streptococcus pneumoniae (pneumococcus)] Danilo Thakkar Other [facility] Other 03-08-2014 pneumococcal polysaccharide vaccine, 23 valent Danilo Thakkar Other [facility] 12-30-2012 tetanus and diphther ia toxoids, adsorbed, preservative free, for adult use (5 Lf of tetanus toxoid and 2 Lf of diphtheria toxoid) Danilo Thakkar Other [facility] 12-25-2011 tetanus and diphther ia toxoids, adsorbed, preservative free, for adult use (5 Lf of tetanus toxoid and 2 Lf of diphtheria toxoid) Danilo Thakkar Other [facility] 10-24-2004 pneumococcal polysaccharide vaccine, 23 valent Danilo Thakkar Other [facility] Payers Date Payer Category Payer Medicare ANTHEM MEDICARE ANTHEM MEDICARE ADVANTAGE [id number] 2020-Present P [address]lli [id number] [place] [address] [id number] 2019 Unknown [id number]. [id number] 2017 Private Health Insurance [id number] Medicare [id number] [id number] 1941 Unknown [id number] 2.16.840.1.784826.3.579. 2.593 1941 Unknown [id number] 2.16.840.1.530831.3.579. 2.593 1941 Unknown [id number] 2.16.840.1.453738.3.579. 2.593 1941 Unknown [id number] 2.16.840.1.437116.3.579. 2.593 1941 Unknown [id number] 2.16.840.1.585183.3.579. 2.593 1941 Unknown [id number] 2.16.840.1.284592.3.579. 2.593 1941 Unknown [id number] 2.16.840.1.166549.3.579. 2.593 1941 Unknown [id number] 2.16.840.1.911184.3.579. 2.593 1941 Unknown [id number] 2.16.840.1.871798.3.579. 2.593 1941 Unknown [id number] 2.16.840.1.117192.3.579. 2.593 1941 Unknown [id number] 2.16.840.1.684519.3.579. 2.593 1941 Unknown [id number] 2.16.840.1.216208.3.579. 2.593 1941 Unknown [id number] 2.16.840.1.317304.3.579. 2.593 1941 Unknown [id number] 2.16.840.1.827702.3.579. 2.593 1941 Unknown [id number] 2.16.840.1.133964.3.579. 2.1244 1941 Unknown [id number] 2.16.840.1.469984.3.579. 2.1242 1941 Unknown [id number] 2.16.840.1.845320.3.579. 2.1259 1941 Unknown [id number] 2.16.840.1.282937.3.579. 2.1259 1941 Unknown [id number] 2.16.840.1.507215.3.579. 2.1259 1941 Unknown [id number] 2.16.840.1.827320.3.579. 2.1259 1941 Unknown [id number] 2.16.840.1.906050.3.579. 2.1259 1941 Unknown [id number] 2.16.840.1.102256.3.579. 2.1259 Medicare Medicare [id number] Private Health Insurance [employer] [id number] Self-pay Self Pay [id number] Social History Date Type Detail Facility Start: 12-17-2016 [facility] End: 12-12-1976 History of tobacco use Current smoker [facility] End: 12-12-1976 History of tobacco use Cigar Smoker [facility] Start: 12-17-2016 End: 05-13-2023 Tobacco use and exposure Smokeless tobacco non-user [facility] Start: 08-03-2021 End: 02-10-2023 Alcohol intake Current drinker of alcohol (finding) [facility] Start: 11-05-2016 Tobacco Comment Quit 40 years ago [facility] Start: 11-05-2016 Alcohol Comment 2 beers per year. [facility] Start: 1940 Sex Assigned At Not on file [facility] Start: 08-12-2022 End: 02-10-2023 Sex Assigned At [facility] Start: 05-13-2023 End: 05-26-2023 Tobacco smoking status NHIS Never smoked tobacco [facility] Work Phone: Start: 05-03-2023 End: 05-13-2023 Exposure to SARS-CoV-2 (event) Not sure [facility] Start: 1940 Sex Assigned At Male F [facility] Start: 08-12-2022 End: 02-10-2023 History of Social function [facility] Adult Depression Screening Assessment 0 [facility] Medical Equipment Procedure Code Equipment Code Equipment [...] TI LOCKING W/ T25 FDA Start: 12-13-2016 Open reduction and internal fixation of fracture of humerus K-WIRE 2.5MM W/ [place] FDA Start: 12-13-2016 Open reduction and internal fixation of fracture of humerus NAIL HUMERAL 9MM X 280MM TI FDA Start: 12-13-2016 Open reduction and internal fixation of fracture of humerus SCREW 4.0MM TI LOCKING W/ T25 FDA Start: 12-13-2016 Open reduction and internal fixation of fracture of humerus K-WIRE 2.5MM W/ TROCAR POINT FDA Start: 12-13-2016 Open reduction and internal fixation of fracture of humerus NAIL HUMERAL 9MM X 280MM TI FDA Start: 12-13-2016 Open reduction and internal fixation of fracture of humerus SCREW 4.0MM TI LOCKING W/ T25 FDA Start: 12-13-2016 [id number], [id number] Start: 12-07-2018 Clinical Notes 09-20-2020 to 09-08-2023 Telephone Encounter - Annika Rodriguez RN - 09/08/2023 8:02 AM EDTTelephone Encounter - Annika Rodriguez RN - 09/08/2023 8:02 AM EDTTelephone Encounter - Lori Christine - 08/11/2023 1:33 PM EDT Note Date & Type Note Facility 09-08-2023 Telephone encounter Note Anibal Hermosillo MD 09/06/2023 9:12 AM EDT Hi Rafat - PET scan is negative for any myeloma holes in the bones. Pt' , Shira, informed of Ant's message and denies any questions, needs or concerns at this time. Appointment verified. Annika Rodriguez RN [facility] 09-08-2023 Miscellaneous Notes Anibal Hermosillo MD 09/06/2023 9:12 AM EDT Hi Rafat - PET scan is negative for any myeloma holes in the bones. Pt' , Shira, informed of Ant's message and denies any questions, needs or concerns at this time. Appointment verified. Annika Rodriguez RN Dr Cain is requesting triage nurse to call Patient with his Pet scan results from 08-29-23. documented in this encounter [facility] 08-29-2023 Note HNO ID: [id number] Author: NADINE DANG RN Service: ? Author Type: Registered Nurse Type: Progress Notes Filed: 08/29/2023 13:21 Note Text: Radiology Service Progress Note DATE OF SERVICE: August 29, 2023 TIME: 1:20 PM PATIENT IDENTITY VERIFICATION COMPLETED USING TWO (2) STANDARD IDENTIFIERS: Name and Date of confirmed by patient verbally. FALL SCREENING: Has the patient had 2 falls in the last year or 1 fall with injury or currently using an Ambulatory Assistive Device (Walker, Cane, Wheelchair, Crutches, etc.)? Yes, Patient High Risk for Falls What interventions were put in place to prevent falls during this visit? [place] Falls Risk Wristband Applied, Instructed Patient to Call for Help if Needed, and Offered Assistance with Transfers/Clothing PATIENT GENDER DATA: Male EXAM: CT -CONTRAST INDUCED NEPHROPATHY RISK FACTORS: Not applicable CREATININE: Creatinine Date Value Ref Range Status 08/04/2023 1.46 (H) 0.73 - 1.22 mg/dL Final 02/03/2023 1.23 (H) 0.73 - 1.22 mg/dL Final 08/05/2022 1.32 (H) 0.73 - 1.22 mg/dL Final Estimated Glomerular Filtration Rate Date Value Ref Range Status 08/04/2023 48 (L) >=60 mL/min/1.73m? Final Comment: Estimated Glomerular Filtration Rate (eGFR) is calculated using the 2020 CKD-EPI creatinine equation. This equation utilizes serum creatinine, sex, and age as parameters. The creatinine assay has traceable calibration to isotope dilution-mass spectrometry. Refer to KDIGO guidelines for clinical interpretation. In patients with unstable renal function, e.g. those with acute kidney injury, the eGFR may not accurately reflect actual GFR. eGFR- Date Value Ref Range Status 12/11/2020 >60 Final P.O.C.T. RESULTS: N/A August 29, 2023 TREATMENT: N/A IV SITE: Ambulatory: A peripheral IV was started in the Right antecubital site with a Angio cath: 22 gauge. IV SITE APPEARANCE: Clean,Dry and Intact SIGNATURE: Nadine Dang RN PATIENT NAME: Rafat Bella DATE: August 29, 2023 TIME: 1:20 PM [facility] 08-29-2023 Note HNO ID: [id number] Author: OLIVIA GUERRA RT(R) Service: ? Author Type: Technologist Type: Progress Notes Filed: 08/29/2023 13:58 Note Text: RADIOLOGY SERVICE PROGRESS NOTE SERVICE DATE: 08/29/2023 SERVICE TIME: 1:58 PM PATIENT IDENTITY VERIFICATION COMPLETED USING TWO (2) STANDARD IDENTIFIERS: Name and Date of confirmed by patient verbally POST EXAM PIV STATUS: Discontinued PROCEDURE TYPE: NM INJECT: PET/CT BODY SCAN. 17.6 mCi F18 FDG. No other medications given.. ADMINISTRATION TIME: 1253 PATIENT DISCHARGED TO: Ambulatory patient, left [place] department area. A Diagnostic radioactive procedure has taken place, with no further precautions necessary other than routine body substance precautions. More information regarding radiation safety can be found using this link: [email or web address] SIGNATURE: RT Joon(R) PATIENT NAME: Rafat Bella DATE: August 29, 2023 TIME: 1:58 PM PAGER/CONTACT #: [facility] 08-11-[address] Cain is requesting triage nurse to call Patient with his Pet scan results from 08-29-23. [facility] 08-11-2023 Instructions Stacie Banegas - 08/11/2023 1:21 PM EDT PET/CT whole body as soon as approved Triage to call results Repeat myeloma labs in 3 months RTC 1 week after to review labs documented in this encounter [facility] 08-11-2023 Nurse Note Patient does have flank pain, his thinks it may be UTI, I did advise her to discuss with you but we could do a UA if it is ordered. Madeleine Schilling MA [facility] 08-11-2023 Nurse Note Patient does have flank pain, his thinks it may be UTI, I did advise her to discuss with you but we could do a UA if it is ordered. Madeleine Schilling MA documented in this encounter [facility] 08-11-2023 History of Presen t illness Narrative Images from the original note were not included. NAME: Rafat Bella [facility] NO.: [id number] DATE OF SERVICE: August 11, 2023 (Mihir) [...] feel there was any change. Saw Dr. Hernández ENT for this. I feel he will [...] 02/07/2022. 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 He has no complaints. [...] clot in January 2016. He went to [place] ER for fatigue and diagnosed with a [...] Revlimid. Had hospitalization in January 2017 to [place] and had a kyphoplasty for compression fracture. [...] INSULIN PEN NEEDLE UF 31 gauge x 16 ndle gabapentin (NEURONTIN) 300 mg capsule GABAPENTIN [...] which included preparing to see the patient, [id number] patient care, completing clinical documentation, performing a medically appropriate examination, counseling and educating the patient/family/caregiver, ordering medications, tests, or procedures, independently interpreting results (not separately reported), communicating results to the patient/family/caregiver, and care coordination (not separately reported). Anibal Hermosillo MD, CPE Hematology and Oncology Services Provided at: [place], [place] Scribe Attestation: This note was scribed [...] under my direction. CC: Danilo Thakkar MD [address] [facility] [place] [address] documented in this encounter [facility] 08-11-2023 Note HNO ID: [id number] Author: ANIBAL HERMOSILLO MD Service: ? Author Type: Physician Type: Progress Notes Filed: 08/11/2023 18:18 Note Text: NAME: Rafat Bella [facility] NO.: [id number] DATE OF SERVICE: August 11, 2023 (Mihir) [...] feel there was any change. Saw Dr. Hernández ENT for this. I feel he will [...] 02/07/2022. 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 He has no complai (more content not included)... [facility] 02-27-2023 Evaluation note Encounter Date Diagnosis Assessment Notes Feb, Essential (primary) hypertension (ICD-10 - I10) Feb, Type 2 diabetes mellitus with hyperglycemia (ICD-10 - E11.65) [facility] Other 11-20-2023 NoteHNO ID: [id number] Author: Anibal Hermosillo MD Service: ? Author Type: Physician Type: Progress Notes Filed: 02/10/2023 7:28 PM Note Text: NAME: Rafat Bella [facility]IN[facility] NO.: [id number] DATE OF SERVICE: February 10, 2023 (Mihir) [...] feel there was any change. Saw Dr. Hernández ENT for this. I feel he will [...] 02/07/2022. 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 He has no complaints. [...] with Revlimid and also radiation through early 2018. M-spike remains undetectable and K/ L ration is normal. He has no significant complaints and since he has been uniterested in addressing his sleep apnea, I didn't broach the subject. Continues to have pain associated wit (more content not included)...[facility]11-13-2023 Evaluation note* Encounter Date Diagnosis Assessment Notes Treatment Notes Treatment Clinical Notes Jan, Complex regional pain syndrome I of right upper limb (ICD-10 - G90.511) Continue Neurontin and consider pain management. 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 They are also educated on the associated risks of NSAIDs and PPI use with kidney disease. They were instructed on adequate fluid balance and to avoid dehydration. [facility] Other 05-11-2023 Evaluation note* Encounter Date Diagnosis Assessment Notes Treatment Notes Treatment Clinical Notes July, Type 2 diabetes mellitus with hyperglycemia (ICD-10 - E11.65) [facility] Other 04-12-2023 Evaluation note* Encounter Date Diagnosis Assessment Notes Treatment Notes Treatment Clinical Notes Jun, Bone metastases (ICD-10 - C79.51) [facility] Other 04-11-2023 Evaluation note* Encounter Date Diagnosis [...] - N40.1) Symptoms tolerable, denies hematuria Jun, alf (current) use of anticoagulants (ICD-10 - Z79.01) [...] Healthy diet, keep active and continue SSRI [facility] Other 03-10-2023 Evaluation note* Encounter Date Diagnosis Assessment Notes Treatment Notes Treatment Clinical Notes May, Type 2 diabetes mellitus with diabetic polyneuropathy, 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 - E11.42) [facility] Other 02-08-2023 Evaluation note* Encounter Date Diagnosis Assessment Notes Treatment Notes Treatment Clinical Notes Apr, Type 2 diabetes mellitus with hyperglycemia (ICD-10 - E11.65) [facility] Other 02-07-2023 Evaluation note* Encounter Date Diagnosis Assessment Notes Treatment Notes Treatment Clinical Notes Apr, Type 2 diabetes mellitus with hyperglycemia (ICD-10 - E11.65) [facility] Other 01-10-2023 Evaluation note* Encounter Date Diagnosis [...] myeloma in remission (ICD-10 - C90.01) Mar, alf (current) use of insulin (ICD-10 - Z79.4) Mar, alf (current) use of anticoagulants (ICD-10 - Z79.01) No bleeding complications noted. INstructed to inspect BM daily for discoloration of bleeding [facility] Other 11-21-2022 Instructions* Patient Instructions* Anibal Hermosillo MD - 02/11/2022 4:50 PM EST Repeat myeloma labs in 6 months RTC 1 week after to review labs [facility] History of Present illness Narrative* Anibal Hermosillo MD - 02/11/2022 4:44 PM EST Images from the original note were not included. NAME: Rafat Bella [facility] NO.: [id number] DATE OF SERVICE: February 11, 2022 (Mihir) [...] 02/07/2022. 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 He has no complaints. [...] clot in January 2016. He went to [place] ER for fatigue and diagnosed with a [...] Revlimid. Had hospitalization in January 2017 to [place] and had a kyphoplasty for compression fracture. [...] INSULIN PEN NEEDLE UF 31 gauge x 5/16 ndle gabapentin (NEURONTIN) 300 mg capsule GABAPENTIN [...] CPE Hematology and Oncology Services Provided at: [place], [place] CC: Danilo Thakkar MD [address] [facility] [id number] documented in this [facility]11-21-2022 Nurse Note* Madeleine Schilling MA - 02/11/2022 9:07 AM EST Clinical questionnaires incomplete due to Patient was roomed by provider, phone call. Madeleine Schilling MA documented in this [facility]11-15-2022 History of Present illness Narrative* Anibal Hermosillo MD - 02/05/2022 12:12 PM EST Patient will need to reschedule - he did not draw labs as requested / planned. documented in this [facility]11-11-2022 Nurse Note* Kira Dunlap Ma - 02/01/2022 4:14 PM EST Clinical questionnaires incomplete due to Patient was roomed by provider. Kira Dunlap Ma [facility] Note [id number]#1.00[facility]07-05-2021 [id number] 09-20-2020 [facility] SURGERY Clinical Discharge Summary PERSON INFORMATION Name RAFAT BELLA Age 80 Years 1940 Sex MALE Language Scottish PCP Danilo Thakkar Marital Status Med Service Ambulatory Surgery Acct# Arrival 09/20/2020 10:33:00 Visit Reason SURGERY -RIGHT CARPAL TUNNEL RELEASE Acuity LOS 007 04:12 Address: [address] [place] [address] Comment: PROVIDER INFORMATION VITALS INFORMATION Vital Sign [...] needed for pain. tamsulos (more content not included)...[facility] 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 (HCC)- Primary Multiple myeloma, without mention of having achieved remission [facility] Diagnosis 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) [C90.01 (ICD-10-CM)]- Primary Multiple myeloma in remission [facility] noteNo InformationNort [facility] Other Evaluation note* Diagnosis Parotid mass- Primary Swelling, mass, or lump in head and neck documented in this encounter [facility] Work Phone: Evaluation note* Diagnosis Onset Date Resolution Status Benign prostatic hyperplasia with lower urinary tract symptoms acute Chronic kidney disease acute Elevated cholesterol acute Type 2 diabetes mellitus with diabetic polyneuropathy acute Type 2 diabetes mellitus with hyperglycemia acute HTN (hypertension) chronic Multiple myeloma chronic [facility] Work Phone: Evaluation note* Diagnosis 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 (HCC)- Primary Multiple myeloma, without mention of having achieved remission Flank pain Abdominal pain, unspecified site Mild episode of recurrent major depressive disorder (HCC) Thrombocytopenia (HCC) Thrombocytopenia, unspecified Stage 3b chronic kidney disease (HCC) Stage 3a chronic kidney disease (HCC) documented [facility]* Diagnosis Onset Date Resolution Status Benign prostatic hyperplasia with lower urinary tract symptoms acute Chronic kidney disease acute Elevated cholesterol acute Type 2 diabetes mellitus with diabetic polyneuropathy acute Type 2 diabetes mellitus with hyperglycemia acute HTN (hypertension) chronic Multiple myeloma chronic Acute chest wall pain acute Back pain of thoracolumbar region acute Chronic kidney disease acute Multiple myeloma chronic [facility] Work Phone: [facility] general Narrative - Reported* Type Description Date [...] see above Hospitalization History [facility] [place] [facility] Other [facility] general Narrative - Reported* Type Description Date [...] see above Hospitalization History [facility] weakness [facility] Other History of Present illness Narrative* Julian Juarez MD - 05/13/2023 1:00 PM EST CC: lump behind ear Consulted by: dr hernández HPI: 6 momths of lump behind ear [...] consent was obtained A/P: [facility] Hospital Discharge instructionsAmbulatory Orders* Referral to Orthopedic Surgery Location: None [facility] Work Phone: Reason for referral (narrative)* Diagnostic Procedure Only (Routine) - Additional Clinical Info Needed Specialty Diagnoses / Procedures Referred By Contac t Referred To Contact MOLECULAR & FUNCTIONAL IMAGING Diagnoses 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 (HCC) Procedures NM PET/CT WHOLE BODY SUBSEQUENT PET IMAGING FOR CT ATTENUATION WHOLE BODY Anibal Hermosillo MD [address] [place] [address] [place] [address] Molecular & Functional Imaging [address] [place] [address] Referral ID Status Reason Start Date Expiration Date Visits Requested Visits Authorized [id number] Additional Clinical Info Needed Auto-Generat ed Referral 08/11/2023 09/09/2024 1 1 [facility] Summary Purpose Family History No Family History [...] mellitus with hyperglycemia HTN (hypertension) Multiple myeloma Chief Complaint Amb Documentation 3 month follow up back pain Reason for Visit Benign prostatic hyp erplasia with lower urinary tract symptoms Chronic kidney disease Elevated cholesterol Type 2 diabetes mellitus with diabetic polyneuropathy Type 2 diabetes mellitus with hyperglycemia HTN (hypertension) Multiple myeloma Acute chest wall pain Back pain of thoracolumbar region Chronic kidney disease Multiple myeloma Additional Source Comments (unrecognized sect ion and content) No Status Records FoundNo Status Records FoundNo Status Records FoundNo Status Records FoundNo Status Records FoundNo Status Records FoundNo Status Records Found INFORMATION SOURCE (unrecogn ized section and content) DATE CREATED AUTHOR 09/15/2017 [facility] DATE CREATED AUTHOR AUTHOR'S ORGANIZ ATION 09/26/2020 [facility] DATE CREATED AUTHOR AUTHOR'S ORGANIZ ATION 08/30/2022 [facility] DATE CREATED AUTHOR AUTHOR'S ORGANIZ ATION 05/20/2023 [facility] DATE CREATED AUTHOR AUTHOR'S ORGANIZ ATION 05/24/2023 [facility] DATE CREATED AUTHOR AUTHOR'S ORGANIZ ATION 09/08/2023 [facility] DATE CREATED AUTHOR AUTHOR'S ORGANIZ ATION 09/24/2023 [facility] EPIC Source Comments (unrecognize d section and content) In the event this informatio n is protected by the Federal Confidentiality of Alcohol and Drug Abuse Patient Records regulations: The Federal rules restrict any use of the information to criminally investigate or prosecute any alcohol or drug abuse patient.[facility] Center[facility] the event this information is protected by the Federal Confidentiality of Alcohol and Drug Abuse Patient Records regulations: The Federal rules restrict any use of the information to criminally investigate or prosecute any alcohol or drug abuse patient.[facility] Center[facility] the event this information is protected by the Federal Confidentiality of Alcohol and Drug Abuse Patient Records regulations: The Federal rules restrict any use of the information to criminally investigate or prosecute any alcohol or drug abuse patient.[facility] Center[facility] the event this information is protected by the Federal Confidentiality of Alcohol and Drug Abuse Patient Records regulations: The Federal rules restrict any use of the information to criminally investigate or prosecute any alcohol or drug abuse patient.[facility] Reason for Visit (unrecogniz ed section and content) Reason Comments Established Patient Reason Comments Mass Back of ear Reason Comments Multiple Myeloma 6 month follow up Reason Comments Results Care Teams (unrecognized sec tion and content) Goal Umpire Relationship Specialty Start Date End Date Danilo Thakkar DO PCP - General Internal Medicine 10/29/16 Goal Umpire Relationship Specialty Start Date End Date Danilo [...] July 04, 2023 End: July 04, 2023 Goal Umpire Relationship Specialty Start Date End Date Danilo Thakkar DO PCP - General Internal Medicine 10/29/16 Team Status: Active Member Role Status Dates Danilo Thakkar DO Primary Care Provide r, Attending Provider Active Start: July 11, 2023 Team Status: Active Member Role Status Dates Danilo Thakkar DO Primary Care Provide r, Attending Provider Active Start: July 14, 2023 Team Status: Active Member Role Status Dates Danilo Thakkar DO Primary Care Provider Active Start: August 04, 2023 Anibal Hermosillo MD Attending Provider Active Start: August 04, 2023 Team Status: Inactive Member Role Status Dates Danilo Thakkar DO Primary Care Provide r, Attending Provider Active Start: August 15, 2023 End: August 15, 2023 Team Status: Active Member Role Status Dates Danilo Thakkar DO Primary Care Provide r, Attending Provider Active Start: August 20, 2023 Goal Umpire Relationship Specialty Start Date End Date Danilo [...] BE BASED ON THE PRIMARY CLINICAL RECORDS. [employer] [facility]. provides no warranty or guarantee of the accuracy or completeness of information in this document.
[2023-10-16 17:32] LABS: Estimated Average Glucose 194 mg/dL; Glycohemoglobin A1C 8.4 % (4.5-6.2)
== END 2023-10-16 15:08 | disposition home or self-care (01) ==
LOC: LAB 15:09
PROVIDERS: PCP Internal Medicine; Visit Provider Internal Medicine
DX: E11.42 Type 2 diabetes mellitus with diabetic polyneuropathy (principal); Z79.4 Long term (current) use of insulin
CPT/HCPCS: 36415; 83036

== ENCOUNTER 2023-10-23 00:20 | Outpatient (RCR) | payer MEDICARE, SELFPAY | END 2023-11-21 09:52 | disposition home or self-care (01) | LOC: MM 00:20 | PROVIDERS: PCP Internal Medicine; Visit Provider Internal Medicine | DX: Z51.81 Encounter for therapeutic drug level monitoring (principal); Z79.01 Long term (current) use of anticoagulants | CPT/HCPCS: 85610; G0463 ==

== ENCOUNTER 2023-11-24 01:27 | Outpatient (RCR) | payer MEDICARE, SELFPAY | END 2023-12-22 23:39 | disposition home or self-care (01) | LOC: MM 01:27 | PROVIDERS: PCP Internal Medicine; Visit Provider Internal Medicine | DX: Z51.81 Encounter for therapeutic drug level monitoring (principal); Z79.01 Long term (current) use of anticoagulants; I82.409 Acute embolism and thrombosis of unspecified deep veins of unspecified lower extremity | CPT/HCPCS: 85610; G0463 ==

== ENCOUNTER 2023-12-23 02:39 | Outpatient (RCR) | payer MEDICARE, SELFPAY | END 2024-01-22 23:39 | disposition home or self-care (01) | LOC: MM 02:39 | PROVIDERS: PCP Internal Medicine; Visit Provider Internal Medicine | DX: Z51.81 Encounter for therapeutic drug level monitoring (principal); Z79.01 Long term (current) use of anticoagulants; I82.409 Acute embolism and thrombosis of unspecified deep veins of unspecified lower extremity | CPT/HCPCS: 85610; G0463 ==

== ENCOUNTER 2024-01-23 12:02 | Outpatient (RCR) | payer MEDICARE, SELFPAY | END 2024-02-21 23:59 | disposition home or self-care (01) | LOC: MM 12:02 | PROVIDERS: PCP Internal Medicine; Visit Provider Internal Medicine | DX: Z51.81 Encounter for therapeutic drug level monitoring (principal); Z79.01 Long term (current) use of anticoagulants | CPT/HCPCS: 85610; G0463 ==

== ENCOUNTER 2024-02-23 04:19 | Outpatient (RCR) | payer MEDICARE, SELFPAY | END 2024-03-23 09:29 | disposition home or self-care (01) | LOC: MM 04:19 | PROVIDERS: PCP Internal Medicine; Visit Provider Internal Medicine | DX: Z51.81 Encounter for therapeutic drug level monitoring (principal); Z79.01 Long term (current) use of anticoagulants ==

== ENCOUNTER 2024-03-25 00:52 | Outpatient (RCR) | payer MEDICARE, SELFPAY | END 2024-04-23 14:45 | disposition home or self-care (01) | LOC: MM 00:52 | PROVIDERS: PCP Internal Medicine; Visit Provider Internal Medicine | DX: Z51.81 Encounter for therapeutic drug level monitoring (principal); Z79.01 Long term (current) use of anticoagulants; I82.409 Acute embolism and thrombosis of unspecified deep veins of unspecified lower extremity | CPT/HCPCS: 85610; G0463 ==

== ENCOUNTER 2024-04-26 02:26 | Outpatient (RCR) | payer MEDICARE, SELFPAY | END 2024-05-21 13:37 | disposition home or self-care (01) | LOC: MM 02:26 | PROVIDERS: PCP Internal Medicine; Visit Provider Internal Medicine | DX: Z51.81 Encounter for therapeutic drug level monitoring (principal); Z79.01 Long term (current) use of anticoagulants | CPT/HCPCS: 85610; G0463 ==

== ENCOUNTER 2024-05-22 12:29 | Outpatient (RCR) | payer MEDICARE, SELFPAY | END 2024-06-18 12:36 | disposition home or self-care (01) | LOC: MM 12:29 | PROVIDERS: PCP Internal Medicine; Visit Provider Internal Medicine | DX: Z51.81 Encounter for therapeutic drug level monitoring (principal); Z79.01 Long term (current) use of anticoagulants; I82.409 Acute embolism and thrombosis of unspecified deep veins of unspecified lower extremity | CPT/HCPCS: 85610; G0463 ==

== ENCOUNTER 2024-06-22 05:37 | Outpatient (RCR) | payer MEDICARE, SELFPAY | END 2024-07-21 16:07 | disposition home or self-care (01) | LOC: MM 05:37 | PROVIDERS: PCP Internal Medicine; Visit Provider Internal Medicine | DX: Z51.81 Encounter for therapeutic drug level monitoring (principal); Z79.01 Long term (current) use of anticoagulants | CPT/HCPCS: 85610; G0463 ==

== ENCOUNTER 2024-07-22 04:37 | Outpatient (RCR) | payer MEDICARE, SELFPAY | END 2024-08-20 15:41 | disposition home or self-care (01) | LOC: MM 04:37 | PROVIDERS: PCP Internal Medicine; Visit Provider Internal Medicine | DX: Z51.81 Encounter for therapeutic drug level monitoring (principal); Z79.01 Long term (current) use of anticoagulants ==

== ENCOUNTER 2024-08-22 07:28 | Outpatient (RCR) | payer MEDICARE, SELFPAY | END 2024-09-16 14:31 | disposition home or self-care (01) | LOC: MM 07:28 | PROVIDERS: PCP Internal Medicine; Visit Provider Internal Medicine | DX: Z51.81 Encounter for therapeutic drug level monitoring (principal); Z79.01 Long term (current) use of anticoagulants; I48.91 Unspecified atrial fibrillation | CPT/HCPCS: 85610; G0463 ==

== ENCOUNTER 2024-09-21 09:52 | Outpatient (RCR) | payer MEDICARE, SELFPAY | END 2024-10-21 16:49 | disposition home or self-care (01) | LOC: MM 09:52 | PROVIDERS: PCP Internal Medicine; Visit Provider Internal Medicine | DX: Z51.81 Encounter for therapeutic drug level monitoring (principal); Z79.01 Long term (current) use of anticoagulants | CPT/HCPCS: 85610; G0463 ==

== ENCOUNTER 2024-10-22 02:36 | Outpatient (RCR) | payer MEDICARE, SELFPAY | END 2024-11-18 12:44 | disposition home or self-care (01) | LOC: MM 02:36 | PROVIDERS: PCP Internal Medicine; Visit Provider Internal Medicine | DX: Z51.81 Encounter for therapeutic drug level monitoring (principal); Z79.01 Long term (current) use of anticoagulants; I48.91 Unspecified atrial fibrillation | CPT/HCPCS: 85610; G0463 ==

== ENCOUNTER 2024-11-22 01:46 | Outpatient (RCR) | payer MEDICARE, SELFPAY | END 2024-12-21 15:34 | disposition home or self-care (01) | LOC: MM 01:46 | PROVIDERS: PCP Internal Medicine; Visit Provider Internal Medicine | DX: Z51.81 Encounter for therapeutic drug level monitoring (principal); Z79.01 Long term (current) use of anticoagulants ==

== ENCOUNTER 2024-12-22 04:29 | Outpatient (RCR) | payer MEDICARE, SELFPAY | END 2025-01-21 23:59 | disposition home or self-care (01) | LOC: MM 04:29 | PROVIDERS: PCP Internal Medicine; Visit Provider Internal Medicine | DX: Z51.81 Encounter for therapeutic drug level monitoring (principal); Z79.01 Long term (current) use of anticoagulants | CPT/HCPCS: 85610; G0463 ==

== ENCOUNTER 2025-01-12 15:56 | Observation (INO) | payer MEDICARE, SELFPAY ==
[2025-01-12] VITALS (8 sets, daily range): BP systolic 142–173; BP diastolic 65–99; PULSE 63–91; TEMP 36.8–36.9; O2SAT 92–97; BMI 35.9; BMI 36.6
--- OUTSIDE RECORDS SUMMARY | 2025-01-12 16:24 | XMS_ITS | CCD ---
Author Organization [facility] Care Team Providers Care Detail Drafter Name Role Phone Adamowicz, Shawn Unavailable Unavailable Adamowicz, Shawn Unavailable Unavailable Adamowicz, Shawn Unavailable Unavailable DANILO CLARK~[phone] UNKNOWN Unavailable Unavailable Adamowicz, Shawn Unavailable Unavailable Adamowicz, Shawn Unavailable Unavailable Paulowicz, Shawn Unavailable Unavailable DANILO CLARK~[phone] UNKNOWN Unavailable Unavailable RonnySujit~[phone] UNKNOWN Unavailable Unavailable Danilo Clark DO Primary Care Provider Danilo Clark DO Primary Care Provider Danilo Clark Unavailable FAWWAD, IVY H Attending Unavailable FAWWAD, IVY H Admitting Unavailable BALL, DR LAMB Primary Care Unavailable FAWWAD, IVY H Attending Unavailable FAWWAD, IVY H Admitting Unavailable BALL, DR LAMB Primary Care Unavailable FAWWAD, IYV H Attending Unavailable FAWWAD, IVY H Admitting [...] Unavailable REZAEE, JULIAN P Attending Unavailable Ball Danilo QUIÑONEZ E Primary Care Provider Danilo Clark MD Primary Care Provider Danilo Clark DO Primary Care Provider Amber QUIÑONEZ, Danilo Primary Care Provider Amber QUIÑONEZ, Danilo Attending Provider [phone] Anibal Ash MD, V Attending Provider Gurpreet Pang MD Attending Provider [phone] Renee Dean CMA Attending Provider Unavaila bethanie Palmer APRN Shawn Emergency Provider Danilo Clark DO Primary Care Provider [phone] Estela DE LA CRUZ Shawn Emergency Provider Danilo Clark DO Attending Provider [phone] JABIER ALDRIDGE Attending Unavailable JABIER ALDRIDGE Attending Unavailable LUIS CARLOS, JABIER Pompa Attending Unavailable LUIS CARLOS, JABIER Pompa Attending Unavailable LUIS CARLOS, JABIER Pompa Attending Unavailable JABIER ALDRIDGE Attending Unavailable Shawn Palmer Attending Unavailable Shawn Palmer Admitting Unavailable Amber, Danilo Primary Care Unavailable GURPREET PANG Referring Unavailable BALL, DANILO E Primary Care Unavailable BALL, DANILO E Primary Care Unavailable ABHYDARON, ANIBAL Referring Unavailable AMBER, DANILO E Primary Care Unavailable IDALMIS BASILIO Attending Unavailable ABHYANKAR, ANIBAL Referring Unavailable BALL, DANILO E Primary Care Unavailable BUNDRIDGE, ANGELIQUE Montoya Referring Unavailabl e BUNDRIDGE, ANGELIQUE Montoya Attending Unavailabl e BALL, DANILO E Primary Care Unavailable ABHYANKAR, ANIBAL Referring Unavailable SCHARPF, GURPREET Attending Unavailable SCHARPF, GURPREET Referring Unavailable BALL, DANILO E Primary Care Unavailable SCHARPF, GURPREET Referring Unavailable BALL, DANILO E Primary Care Unavailable SCHARPF, GURPREET Referring Unavailable BALL, DANILO E Primary Care Unavailable FRANKIE MARTINEZ Attending Unavailable BALL, DANILO E Primary Care Unavailable ABHYANKAR, ANIBAL Attending Unavailable ABHYANKAR, ANIBAL Referring Unavailable BALL, DANILO E Primary Care Unavailable GANDARA, MARTHA Attending Unavailable GANDARA, MARTAH Admitting Unavailable BALL, DANILO E Primary Care Unavailable SCHARPF, GURPREET Attending Unavailable SCHARPF, GURPREET Admitting Unavailable BALL, DANILO E Primary Care Unavailable PRAFUL, IDALMIS Referring Unavailable BALL, DANILO E Primary Care Unavailable ABHYANKAR, ANIBAL Attending Unavailable PRAFUL, IDALMIS Referring Unavailable BALL, DANILO E Primary Care Unavailable BALL, DANILO E Primary Care Unavailable BALL, DANILO E Primary Care Unavailable SCHARPF, GURPREET Attending Unavailable SCHARPF, GURPREET Referring Unavailable BALL, DANILO E Primary Care Unavailable BALL, DANILO E Primary Care Unavailable BALL, DANILO E Referring Unavailable SCHARPF, GURPREET Attending Unavailable BALL, DANILO E Primary Care Unavailable BUNDRIDGE, ANGELIQUE Montoya Attending Unavailabl e BALL, DANILO E Primary Care Unavailable BALL, DANILO E Primary Care Unavailable BALL, DANILO E Primary Care Unavailable ABHYANKAR, ANIBAL Referring Unavailable PRAFUL, IDALMIS Attending Unavailable BALL, DANILO E Primary Care Unavailable ABHYANKAR, ANIBAL Referring Unavailable BALL, DANILO E Primary Care Unavailable SCHARPF, GURPREET Referring Unavailable BALL, DANILO E Primary Care Unavailable Ball DO, Danilo Primary Care Provider Anibal Ash MD, V Attending Provider Allergies Allergy ClassificationReported Allergen(s)Allergy TypeDate of OnsetReaction(s) FacilityPenicillins (antibiotic) (1 source)PenicillinsDrug Eirubwv41-95-9299[facility]wcRpwjxkvkr [facility] Work Phone: (20 sources)Penicillins; Translations: [PENICILLINS]Drug Toasopa55-21-5610 Sw[facility], [facility] Work [facility]: (20 sources)penicillAMINE; Translations: [PENICILLAMINE]Drug Zknzdqj07-03-5681 UnknownNoSpecial [facility] Other (10 sources)PenicillinsPropensity to adverse reactionsUnknowQuincy Valley Medical Center [facility] Other (1 source)PenicillinsDrug allergy (disorder)04-05-4872ArvCh[facility] (20 sources)Lisinopril; Translations: [LISINOPRIL]Drug Kegfhkm63-35-0418VglfojvSelect Medical Specialty Hospital - CincinnatiComment on above:Onset Date: 10/23/2012 (18 sources)Penicillin VDrug Traiexr36-33-8194Aziirpb, Unknown ReactionWilson Health (10 sources)LisinoprilPropensity to adverse fvqngyern38-11-6457DBOF Healthcare Work Phone: (10 sources)PenicillinsDrug Skeigon76-64-2754QturcoxvZQED Healthcare (20 sources)PenicillinsDrug Gsnsjza71-32-2845ShylfblzTbcgarbma Clinic Work Phone: (1 source)LisinoprilDrug Bhfllmu33-40-5849ZhdnmudgtWilson Health Repository (1 source)penicillAMINEDrug Qfcvuga71-63-1583WtrgcgmdwWilson Health Repository (1 source)PenicillinDrug Ojztgvi90-95-0729QlktuuetiWilson Health Repository (1 source)PenicillinsDrug allergy (disorder)59-85-7703WtharhlxtWilson Health Repository Medications Current Medications MedicationDrug Class(es)DatesSig (Normalized)Sig (Original)Accu-Chek Elizabeth Plus - (8 sources)Accu-Chek Elizabeth Plus - USE AND DISCARD 1 TEST STRIP TO CHECK HOME BLOOD SUGAR TWO TIMES A DAY for 90 Activeascorbic acid 4700 mg / polyethylene glycol 3350 526427 mg / potassium chloride 1015 mg / sodium ascorbate 5900 mg / sodium chloride 2690 mg / sodium sulfate 7500 mg powder for oral solution (15 sources)Osmotic Laxative, Vitamin CStart: 87-48-0014swn-sod wod-YkZr-MXq-asb-C (MoviPrep) 100-7.5-2.691 gram solution Take by mouth. 0 07/28/2013 ActiveStart: 39-88-9626FoozYjyq 100 GM as directed Orally 1 for 1 July, Not-Takingatorvastatin 20 mg oral tablet (20 sources)HMG-CoA Reductase InhibitorStart: 08-15-2023 End: 88-09-2942agda 1 tablet by mouth once daily in the eveningAtorvastatin 20 mg tablet Active 0 .ROUTE .COMPLEX 90 3 August 05, 2024 7:41am TAKE 1 TABLET BY MOUTH ONCE DAILY IN THE EVENING Complies with drug therapyStart: 12-12-2016 End: 49-39-5958qjel 1 tablet by mouth once dailyAtorvastatin 20 mg Tablet Discontinued 20 MG PO Daily December 12, 2016 12:00am August 15, 2023 8:39am hyperlipidemiaComment on above:Take 20 mg by mouth once daily.Blood-Glucose Meter,Continuous (Dexcom G7 Cause Analyst) misc (5 sources)Start: 22-36-0407Cxgnj-Glucose Meter,Continuous (Dexcom G7 Cause Analyst) misc Active 0 .ROUTE .COMPLEX January 14, 2024 9:39pm USE AT HOME TO TEST BLOOD SUGAR 4-6 TIMES DAILY WITH SENSORSStart: 81-61-5159Fexmf-Glucose Meter,Continuous (Dexcom G7 Cause Analyst) misc Active 0 .ROUTE .COMPLEX January 14, 2024 8:39pm USE AT HOME TO TEST BLOOD SUGAR 4-6 TIMES DAILY WITH SENSORS Start: 10-17-2023 End: 30-00-2432Oyolt-Glucose Meter,Continuous (Dexcom G7 Cause Analyst) misc Discontinued 0 .Route October 17, 2023 12:00am January 14, 2024 9:39pm Use to test home BS 4-6x dailyStart: 10-17-2023 End: 47-30-0920Gykzz-Glucose Meter,Continuous (Dexcom G7 Cause Analyst) misc Discontinued 0 .Route October 16, 2023 11:00pm January 14, 2024 8:39pm Use to test home BS 4-6x dailyStart: 93-23-7062Yxyqt-Glucose Meter,Continuous (Dexcom G7 Cause Analyst) misc Active 0 .Route October 17, 2023 12:00am Use to test home BS 4-6x dailyBlood-Glucose Sensor (Dexcom G7 Sensor) device (16 sources)Start: 29-56-1918Vfdih-Glucose Sensor (Dexcom G7 Sensor) device Active 0 .ROUTE .COMPLEX 3 February 16, 2024 9:36am Type 2 diabetes mellitus with hyperglycemia correction current use of anticoagulant therapy Type2 diabetes mellitus with hyperglycemia 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 REMOVE AND REPLACE SENSOR EVERY 10 DAYS.Start: 68-43-1039Hyugk-Glucose Sensor (Dexcom G7 Sensor) device Active 0 .ROUTE .COMPLEX February 16, 2024 9:36am USE TO TEST BLOOD SUGAR 4-6 TIMES DAILY. REMOVE AND REPLACE SENSOR EVERY 10 DAYS.Start: 41-67-1559Wgxia-Glucose Sensor (Dexcom G7 Sensor) device Active 0 .ROUTE .COMPLEX February 16, 2024 8:36am USE TO TEST BLOOD SUGAR 4-6 TIMES DAILY. REMOVE AND REPLACE SENSOR EVERY 10 DAYS.Start: 02-14-2024 End: 54-57-2127Nkdha-Glucose Sensor (Dexcom G7 Sensor) device Discontinued 0 .ROUTE .COMPLEX 3 February 14, 2024 12:45pm February 16, 2024 9:37am Type 2 diabetes mellitus with hyperglycemia intermodal customer service currentuse of anticoagulant therapy Type 2 diabetes mellitus with hyperglycemia 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 REMOVE AND REPLACE SENSOR EVERY 10 DAYS.Start: 02-14-2024 End: 32-83-7412Fpmre-Glucose Sensor (Dexcom G7 Sensor) device Discontinued 0 .ROUTE .COMPLEX February 132:45pm February 16, 2024 9:37am USE TO TEST BLOOD SUGAR 4-6 TIMES DAILY. REMOVE AND REPLACE SENSOR EVERY 10 DAYS.Start: 02-14-2024 End: 05-53-9090Xemvn-Glucose Sensor (Dexcom G7 Sensor) device Discontinued 0 .ROUTE .COMPLEX February 131:45am February 16, 2024 8:37am USE TO TEST BLOOD SUGAR 4-6 TIMES DAILY. REMOVE AND REPLACE SENSOR EVERY 10 DAYS.Start: 10-17-2023 End: 30-93-2828Snxbp-Glucose Sensor (Dexcom G7 Sensor) device Discontinued 0 .Route 3 October 17, 2023 12:00am February 14, 2024 12:46pm Type 2 diabetes mellitus with hyperglycemia correction current use of anticoagulant therapy Type 2 diabetes mellitus with hyperglycemia correction (current) use of anticoagulants Use to test home BS 4-6x dailyStart: 10-17-2023 End: 35-09-5642Ikxie-Glucose Sensor (Dexcom G7 Sensor) device Discontinued 0 .Route 3 October 17, 2023 12:00am February 14, 2024 12:46pm Use to test home BS 4-6x dailyStart: 10-17-2023 End: 90-18-7652Monpd-Glucose Sensor (Dexcom G7 Sensor) device Discontinued 0 .Route 3 October 16, 2023 11:00pm February 14, 2024 11:46am Use to test home BS 4-6x dailyStart: 02-32-7737Zkllh-Glucose Sensor (Dexcom G7 Sensor) device Active 0 .Route 3 October 17, 2023 12:00am Use to test home BS 4-6x dailyBlood- Glucose,Cause Analyst,Cont (Dexcom G7 Cause Analyst) misc (6 sources)Start: 08-45-6247Ymjnx-Glucose,Cause Analyst,Cont (Dexcom G7 Cause Analyst) misc Active 0 .ROUTE .COMPLEX 1 0 January 14, 2024 9:39pm Type 2 diabetes mellitus with hyperglycemia 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 service current use of insulin Type 2 diabetes mellitus with hyperglycemia correction (current) use of insulin USE AT HOME TO TEST BLOOD SUGAR 4-6 TIMES DAILY WITH SENSORSStart: 37-38-8517Obvmk- Glucose,Cause Analyst,Cont (Dexcom G7 Cause Analyst) misc Active 0 .ROUTE .COMPLEX 1 January 1349:39pm USE AT HOME TO TEST BLOOD SUGAR 4-6 TIMES DAILY WITH SENSORSStart: 10-17-2023 End: 55-05-9513Dthal-Glucose,Cause Analyst,Cont (Dexcom G7 Cause Analyst) misc Discontinued 0 .Route 1 0 October 17, 2023 12:00am January 14, 2024 9:39pm Type 2 diabetes mellitus with hyperglycemia correction current use of insulin Type 2 diabetes mellitus with hyperglycemia 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 Use to test home BS 4-6x dailyStart: 10-17-2023 End: 75-26-4626Xojcj-Glucose,Cause Analyst,Cont (Dexcom G7 Cause Analyst) misc Discontinued 0 .Route October 17, 2023 12:00am January 14, 2024 9:39pm Use to test home BS 4-6x dailyDEXCOM G7 TECHNICAL COMMUNICATION TEACHER misc (20 sources)Start: 65-15-4406TCCXGT G7 TECHNICAL COMMUNICATION TEACHER misc USE AT HOME TO TEST BLOOD SUGAR 4-6 TIMES DAILY WITH SENSORS 01/18/2024 Activedoxycycline hyclate 100 mg oral tablet (20 sources)Tetracycline-class DrugStart: 09-19-2024 End: 10-67-1434tvgm 1 tablet by mouth twice dailydoxycycline (VIBRA-TABS) 100 mg tablet Take 1 tablet by mouth two times a day for 7 days. 14 nmmwgz4009/19/2024 09/26/2024 ActiveStart: 04-16-2024 End: 99-95-8118iuni 1 capsule by mouth twice dailyDoxycycline Hyclate 100 mg capsule Discontinued 100 MG PO Twice daily 14 7 0 April 16, 2024 1:00am January 10, 2025 2:04pmStart: 09-09-2017 End: 06-03-5711ldcq 1 tablet by mouth twice dailyDoxycycline Hyclate 100 mg tablet Discontinued 100 MG PO Twice daily 20 10 0 September 09, 2017 12:00am June 04, 2023 9:29amStart: 12-13-2016 End: 96-13-4783mfil 1 tablet by mouth twice dailyDoxycycline Hyclate 100 mg tablet Discontinued 100 MG PO Twice daily 14 7 0 December 13, 2016 12:00am December 19, 2016 12:00am December 20, 2016 12:04am post-op antibacterial prophylaxisgabapentin 300 mg oral capsule (20 sources)Anti-epileptic AgentStart: 07-28-2023 End: 46-84-5820yagr 1 capsule by mouth three times dailyGabapentin 300 mg capsule Active 0 .ROUTE .COMPLEX 270 August 23, 2024 10:09am TAKE 1 CAPSULE BY MOUTH THREE TIMES DAILY Complies with drug therapyStart: 86-87-4549zildgrlvvt (Neurontin) 100 mg capsule Take by mouth. 0 10/22/2017 ActiveStart: 10-22-2017 End: 33-07-7742erro 1 capsule by mouth three times dailyGabapentin 300 mg capsule Discontinued 300 MG PO Three times daily June 04, 2023 12:00am July 28, 2023 1:16pmGABAPENTIN ORAL Take by mouth. ActiveGABAPENTIN ORAL Take by mouth. 0 ActiveComment on above:Take by mouth.hydrocortisone 25 mg/ml topical cream (11 sources)CorticosteroidStart: 14-70-3545xjjxceqwtwmjuf 2.5 % cream APPLY TO FACE ONCE A DAY FRIDAY THROUGH FRIDAY OFF ON WEEKENDS (REPEAT NEEDED FOR FLARES) 11/15/2022 ActiveInsulin Nph And Regular Human (20 sources)InsulinStart: 90-16-1475Gdszscn Nph And Regular Human (Humulin 70/30 U-100 Kwikpen) 100 unit/mL (70-30) insulin pen Active 0 .ROUTE .COMPLEX 20 02November 27, 2024 8:24am INJECT 50 UNITS SUBCUTANEOUSLY BEFORE BREAKFAST AND 25 BEFORE SUPPER Complies with drug therapyStart: 09-01-2024 End: 77-22-6204xvkyzv 100 [IU] by subcutaneous injection twice dailyInsulin Nph And Regular Human (Humulin 70/30 U-100 Kwikpen) 100 unit/mL (70-30) insulin pen Discontinued 0 SUBCUT Twice daily September 01, 2024 6:27pm November 27, 2024 8:24am 60u SC before bkfst and 25u SC before supperStart: 33-93-2437dnrzxs 100 [IU] by subcutaneous injection twice dailyInsulin Nph And Regular Human (Humulin 70/30 U-100 Kwikpen) 100 unit/mL (70-30) insulin pen Active 0 SUBCUT Twice daily September 01, 2024 6:27pm 60u SC before bkfst and 25u SC before supper Complies with drug therapyStart: 30-30-6492axdotp 100 [IU] by subcutaneous injection twice dailyStart: 03-28-2024 End: 33-12-5053vxyurz 100 [IU] by subcutaneous injection twice dailyInsulin Nph And Regular Human (Humulin 70/30 U-100 Kwikpen) 100 unit/mL (70-30) insulin pen Discontinued 0 SUBCUT Twice daily March 28, 2024 7:08pm September 01, 2024 6:42pm 50u SC before bkfst and 25u SC before supperStart: 03-28-2024 End: 92-32-0869fwxshu 100 [IU] by subcutaneous injection twice dailyInsulin Nph And Regular Human (Humulin 70/30 U-100 Kwikpen) 100 unit/mL (70-30) insulin pen Discontinued 0 SUBCUT Twice daily March 28, 2024 7:08pm September 01, 2024 6:42pm 50u SC before bkfstand 25u SC before supperStart: 55-18-1396smfwnu 100 [IU] by subcutaneous injection twice dailyInsulin Nph And Regular Human (Humulin 70/30 U-100 Kwikpen) 100 unit/mL (70-30) insulin pen Active 0 SUBCUT Twice daily March 28, 2024 7:08pm 50u SC before bkfst and 25u SC before supperStart: 95-73-6099pwltlp 100 [IU] by subcutaneous injection twice daily Insulin Nph And Regular Human (Humulin 70/30 U-100 Kwikpen) 100 unit/mL (70-30) insulin pen Active 0 SUBCUT Twice daily March 28, 2024 6:08pm 50u SC before bkfst and 25u SC before supperStart: 02-03-2024 End: 88-33-7078djnajw 100 [IU] by subcutaneous injection twice dailyInsulin Nph And Regular Human (Humulin 70/30 U-100 Kwikpen) 100 unit/mL (70-30) insulin pen Discontinued 0 SUBCUT Twice daily 22 04February 03, 2024 6:17pm March 28, 2024 7:09pm 50u SC before bkfst and 25u SC before supperStart: 02-03-2024 End: 27-94-1038owbmgu 100 [IU] by subcutaneous injection twice dailyInsulin Nph And Regular Human (Humulin 70/30 U-100 Kwikpen) 100 unit/mL (70-30) insulin pen Discontinued 0 SUBCUT Twice daily February 03, 2024 6:17pm March 28, 2024 7:09pm 50u SC before bkfst and 25u SC before supperStart: 02-03-2024 End: 89-65-8141kweuhv 100 [IU] by subcutaneous injection twice dailyInsulin Nph And Regular Human (Humulin 70/30 U-100 Kwikpen) 100 unit/mL (70-30) insulin pen Discontinued 0 SUBCUT Twice daily February 03, 2024 5:17pm March 28, 2024 6:09pm 50u SC before bkfst and 25u SC before supperStart: 01-22-2024 End: 98-83-5364nxiirh 100 [IU] by subcutaneous injection twice dailyInsulin Nph And Regular Human (Humulin 70/30 U-100 Kwikpen) 100 unit/mL (70-30) insulin pen Discontinued 0 SUBCUT Twice daily 22 04January 22, 2024 8:22pm February 03, 2024 6:17pm 36u SC before bkfst and 20u SC before supperStart: 01-22-2024 End: 17-38-3775cbzkka 100 [IU] by subcutaneous injection twice dailyInsulin Nph And Regular Human (Humulin 70/30 U-100 Kwikpen) 100 unit/mL (70-30) insulin pen Discontinued 0 SUBCUT Twice daily January 22, 2024 8:22pm February 03, 2024 6:17pm 36u SC before bkfst and 20u SC before supperStart: 01-22-2024 End: 68-03-1129crsldg 100 [IU] by subcutaneous injection twice dailyInsulin Nph And Regular Human (Humulin 70/30 U-100 Kwikpen) 100 unit/mL (70-30) insulin pen Discontinued 0 SUBCUT Twice daily January 22, 2024 7:22pm February 03, 2024 5:17pm 36u SC before bkfst and 20u SC before supperStart: 01-13-2024 End: 32-88-1544dqbmtq 100 [IU] by subcutaneous injection twice dailyInsulin Nph And Regular Human (Humulin 70/30 U-100 Kwikpen) 100 unit/mL (70-30) insulin pen Discontinued 0 SUBCUT Twice daily 22 04January 13, 2024 9:11am January 22, 2024 8:22pm 30u SC before bkfst and 20u SC before supperStart: 01-13-2024 End: 22-24-5548ziyzdk 100 [IU] by subcutaneous injection twice dailyInsulin Nph And Regular Human (Humulin 70/30 U-100 Kwikpen) 100 unit/mL (70-30) insulin pen Discontinued 0 SUBCUT Twice daily January 13, 2024 9:11am January 22, 2024 8:22pm 30u SC before bkfst and 20u SC before supperStart: 01-13-2024 End: 18-62-9616nleazk 100 [IU] by subcutaneous injection twice dailyInsulin Nph And Regular Human (Humulin 70/30 U-100 Kwikpen) 100 unit/mL (70-30) insulin pen Discontinued 0 SUBCUT Twice daily January 13, 2024 8:11am January 22, 2024 7:22pm 30u SC before bkfst and 20u SC before supperStart: 12-31-2023 End: 05-65-9359Jwesllx Nph And Regular Human (Humulin 70/30 U-100 Kwikpen) 100 unit/mL (70-30) insulin pen Discontinued 20 UNIT SUBCUT Every morning 22 04December 31, 2023 12:37pm January 13, 2024 9:12am 15 unitsQHSStart: 12-31-2023 End: 01-73-9848Dvegvsx Nph And Regular Human (Humulin 70/30 U-100 Kwikpen) 100 unit/mL (70-30) insulin pen Discontinued 20 UNIT SUBCUT Every morning December 31, 2023 12:37pm January 13, 2024 9:12am 15 units QHSStart: 12-31-2023 End: 38-26-3409Ugsezye Nph And Regular Human (Humulin 70/30 U-100 Kwikpen) 100 unit/mL (70-30) insulin pen Discontinued 20 UNIT SUBCUT Every morning December 31, 2023 11:37am January 13, 2024 8:12am 15 units QHSStart: 12-31-2023 Insulin Nph And Regular Human (Humulin 70/30 U-100 Kwikpen) 100 unit/mL (70-30) insulin pen Active 20 UNIT SUBCUT Every morning December 31, 2023 12:37pm 15 units QHSStart: 10-17-2023 End: 81-10-9077Qqvkgwj Nph And Regular Human (Humulin 70/30 U-100 Kwikpen) 100 unit/mL (70-30) insulin pen Discontinued 15 UNIT SUBCUT Twice daily 22 04October 17, 2023 12:00am December 31, 2023 12:37pmStart: 10-17-2023 End: 81-43-8347Ktwyozi Nph And Regular Human (Humulin 70/30 U-100 Kwikpen) 100 unit/mL (70-30) insulin pen Discontinued 15 UNIT SUBCUT Twice daily October 16, 2023 11:00pm December 31, 2023 11:37amStart: 10-17-2023 End: 84-57-4796Tlmyaxa Nph And Regular Human (Humulin 70/30 U-100 Kwikpen) 100 unit/mL (70-30) insulin pen Discontinued 15 UNIT SUBCUT Twice daily October 17, 2023 12:00am December 31, 2023 12:37pmHUMULIN 70/30 U-100 KWIKPEN 100 unit/mL (70-30) pen INJECT 20 UNITS SUBCUTANEOUSLY IN THE MORNING AND 15 AT BEDTIME Activelosartan potassium 50 mg oral tablet (20 sources)Angiotensin 2 Receptor BlockerStart: 04-16-2024 End: 56-73-3838nlqe 1 tablet by mouth once dailyLosartan 50 mg tablet Active 50 MG PO Daily 30 July 29, 2024 2:13pm Complies with drug therapyStart: 03-01-2024 End: 22-15-4709tkry 1 tablet by mouth twice dailyLosartan 50 mg tablet Discontinued 0 .ROUTE .COMPLEX 60 March 01, 2024 1:59pm April 16, 2 025 3:10pm Take 1 tablet by mouth twice dailyStart: 06-04-2023 End: 92-77-4366ojra 1 tablet by mouth twice dailyLosartan 50 mg tablet Discontinued 50 MG PO Twice daily June 04, 2023 12:00am January 30, 2024 1:47pmStart: 01-13-2023 End: 12-18-3076zgqf 1 tablet by mouth once dailyLosartan 50 mg tablet Discontinued 50 MG PO Daily January 30, 2024 1:47pm March 01, 2024 1:59pm oxyCODONE hydrochloride 5 mg oral tablet (20 sources)Opioid AgonistStart: 15-71-1231cveq 1 tablet by mouth every eight hours as needed for painoxyCODONE IR (ROXICODONE) 5 mg immediate release tablet Indications: Mucoepidermoid carcinoma (HCC)Take 1 tablet by mouth every 8 hours as needed for pain for up to 5 days. 10 tablet 09/18/2024 ActiveStart: 06-04-2023 End: 48-02-8967lldg 1 tablet by mouth every twelve hours as needed for pain Oxycodone 5 mg tablet Discontinued 5 MG PO Every 12 hours as needed for pain 60 30 0 July 14, 2024 July 15, 2024 6:14pm Multiple myeloma Back pain of thoracolumbar region 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 Low back pain, unspecified Pain in thoracic spineStart: 78-11-1968awpj 1 tablet by mouth every twelve hours as needed for painoxyCODONE HCl 5 MG 1 tablet as needed Orally every 12 hours as needed for pain Jun, ActiveStart: 06-06-2020 take 2 tablets by mouth every six hours as neededoxyCODONE IR (ROXICODONE) 5 mg immediate release tablet Indications: 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 (HCC) , Chronic pain due to neoplasm Take 2 tablets by mouth every 6 hours as needed for up to 30 days. 120 tablet 06/06/2020 Activetake 1 capsule by mouth twice daily as needed for painoxyCODONE (Oxy-IR) 5 MG immediate release capsule Take 5 mg by mouth 2 (two) times a day as needed for severe pain. Active take 1 tablet by mouth every six hoursoxyCODONE HCl 5 MG 1 tablet as needed Orally every 6 hrs ActiveComment on above:Take 2 tablets by mouth every 6 hours as needed for up to 30 days.tamsulosin hydrochloride 0.4 mg oral capsule (20 sources)alpha-Adrenergic BlockerStart: 09-03-2023 End: 13-88-0358zvok 1 capsule by mouth once daily in the eveningTamsulosin 0.4 mg capsule Active 0 .ROUTE .COMPLEX 90 August 25, 2024 7:20am TAKE 1 CAPSULE BY MOUTH ONCE DAILY IN THE EVENING Complies with drug therapyStart: 54-88-1847hpmf 1 capsule by mouth every twenty-four hourstamsulosin (Flomax) 0.4 mg 24 hr capsule Take by mouth. 0 01/13/2023 ActiveStart: 12-12-2016 End: 41-98-7236dtyw 1 capsule by mouth once daily at bedtimeTamsulosin 0.4 mg capsule,extended release 24hr Discontinued 0.4 MG PO Daily at bedtime December 12, 2016 12:00am September 03, 2023 12:52pm BPHComment on above:Take 0.4 mg by mouth once daily.warfarin sodium 5 mg oral tablet (20 sources)Vitamin K AntagonistStart: 76-63-4278nmni 1-2 tablets by mouth once Warfarin 5 mg tablet Active 0 .ROUTE .COMPLEX 150 3 September 29, 2023 7:02am TAKE 1 TO 2 TABLETS BY MOUTH ONCE DAILY PER INR RESULTS Complies with drug therapy Start: 79-95-3250gqnl 1-2 tablets by mouth onceWarfarin Active 0 .ROUTE .COMPLEX 150 September 29, 2023 7:02am TAKE 1 TO 2 TABLETS BY MOUTH ONCE DAILYPER INR RESULTSStart: 03-31-2017 End: 12-64-6184fjce 1-2 tablets by mouth once dailyWarfarin 5 mg tablet Discontinued 0 PO Daily June 04, 2023 12:00am September 29, 2023 7:03am 1-2 tabl ets per INR orally daily;Start: 12-12-2016 End: 14-35-9041xqgt 5.5 mg by mouth once daily at bedtimeWarfarin 5 mg Tablet Discontinued 5.5 MG PO Daily at bedtime December 12, 2016 12:00am January 232016 1:27pm PEStart: 12-12-2016 End: 77-98-8135vegf 5.5 mg by mouth once daily at bedtimeWarfarin Discontinued 5.5 MG PO Daily at bedtime December 12, 2016 12:00am February 18, 2017 1: 27pmWarfarin 5mg ActiveComment on above:Take 5 mg by mouth once daily. Weds and Sat 2.5 mg Completed/Discontinued Medications MedicationDrug Class(es)DatesSig (Normalized)Sig (Original)acetaminophen 325 mg / oxyCODONE hydrochloride 5 mg oral tablet (20 sources)Opioid AgonistStart: 12-13-2016 End: 62-57-2017pwee 1-2 tablets by mouth every four to six hours as needed for painOxycodone-Acetaminophen (Percocet) 5-325 mg tablet Discontinued 1 - 2 TAB PO EVERY 4-6 HOURS as needed for Pain 60 0 September 09, 2017 June 04, 2023 9:29am Multiple myeloma Postoperative pain of extremity Carpal tunnel syndrome Cubital tunnel syndrome 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Other acute postprocedural pain Carpal tunnel syndrome, unspecified upper limb Lesion of ulnar nerve, unspecified upper limb 1-2 tabs PO Q 4-6 hours as needed for pain acyclovir 400 mg oral tablet (19 sources)Herpesvirus Nucleoside Analog DNA Polymerase Inhibitor, Herpes Simplex Virus Nucleoside Analog DNA Polymerase Inhibitor, Herpes Zoster Virus Nucleoside Analog DNA Polymerase InhibitorStart: 07-21-2017 End: 55-02-0647ncym 1 tablet by mouth twice dailyacyclovir (ZOVIRAX) 400 mg tablet TAKE ONE TABLET BY MOUTH TWICE DAILY 60 tablet 5 07/21/2017 08/19/2024 DiscontinuedComment on above:TAKE ONE TABLET BY MOUTH TWICE DAILYamLODIPine 5 mg oral tablet (10 sources)Dihydropyridine Calcium Channel BlockerStart: 02-18-2017 End: 02-83-1110nztn 1 tablet by mouth once dailyAmlodipine 5 mg Tablet Discontinued 5 MG PO Daily 30 0 February 18, 2017 1:00am June 04, 2023 9 :29amaspirin 81 mg delayed release oral tablet (10 sources)Platelet Aggregation Inhibitor, Nonsteroidal Anti-inflammatory Drug Start: 12-12-2016 End: 17-60-1036xpnc 1 tablet by mouth once dailyAspirin (Aspir-Low) 81 mg Tablet,Delayed Release (Dr/Ec) Discontinued 1 TAB PO Daily December 12, 2016 12:00am February 18, 2017 1:26pmdiclofenac sodium 0.01 mg/mg topical gel (19 sources)Nonsteroidal Anti-inflammatory DrugStart: 04-18-2017 End: 63-24-7214yxurn 2 g topically four times dailyVOLTAREN 1 % topical gel Apply 2 g to affected area four times daily. 04/18/2017 08/19/2024 Discontinued Comment on above:Apply 2 g to affected area four times daily. docusate sodium 50 mg / sennosides, skilled nursing 8.6 mg oral tablet (20 sources)Start: 03-11-2017 End: 24-37-1128ptfz 2 tablets by mouth twice dailysenna-docusate (MEDI-NATURAL SENNA-STOOL) 8.6-50 mg per tablet Take 2 tablets by mouth twice daily.120 tablet 5 03/11/2017 08/19/2024 DiscontinuedComment on above:Take 2 tablets by mouth twice daily.escitalopram 10 mg oral tablet (20 sources)Serotonin Reuptake InhibitorStart: 09-02-2023 End: 63-44-1931ertc 1 tablet by mouth once daily at bedtimeEscitalopram Oxalate 10 mg tablet Discontinued 0 .ROUTE .COMPLEX 90 1 February 29, 2024 6:01pm August 31, 2024 8:41pm TAKE 1 TABLET BY MOUTH ONCE DAILY AT BEDTIMEStart: 01-13-2023 End: 57-14-0214zqdr 1 tablet by mouth once dailyEscitalopram Oxalate 10 mg tablet Discontinued 10 MG PO Daily June 04, 2023 12:00am September 02, 2023 1:36pmStart: 01-08-3553gzno 1 tablet by mouth once dailyescitalopram oxalate (LEXAPRO) 20 mg tablet Indications: 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 remiss ion (HCC) , Chronic pain due to neoplasm , Malaise and fatigue Take 1 tablet by mouth once daily. 30 tablet 1 05/22/2017 ActiveComment on above:Take 1 tablet by mouth once daily.24 hr felodipine 5 mg extended release oral tablet (10 sources)Dihydropyridine Calcium Channel BlockerStart: 12-12-2016 End: 68-22-3042vgwo 1 tablet by mouth once dailyFelodipine 5 mg Tablet Extended Release 24 Hr Discontinued 5 MG PO Daily December 12, 2016 12:00am February 18, 2017 1:31pm hypertensionglimepiride 4 mg oral tablet (20 sources)SulfonylureaStart: 06-04-2023 End: 53-10-2241pepf 1 tablet by mouth once dailyGlimepiride 4 mg tablet Discontinued 4 MG PO Daily June 04, 2023 9:27am December 31, 2023 12:36pm Start: 05-26-2023 End: 22-70-6007hjlm 1 tablet by mouth once daily at breakfastGlimepiride 4 mg tablet Discontinued 0 .ROUTE .COMPLEX 90 3 May 26, 2023 1:41pm June 0349:29am TAKE 1 TABLET BY MOUTH ONCE DAILY 30 MINUITES PRIOR TO BREAKFAST Start: 05-26-2023 End: 14-91-6809wqpf 1 tablet by mouth once dailyGlimepiride 4 mg tablet Discontinued 4 MG PO Daily May 26, 2023 1:00am May 26, 2023 1:41pmtake 4 tablets by mouth at mealtimeglimepiride (Amaryl) 1 MG tablet Take 4 mg by mouth in the morning. Take with meals. Active End: 05-57-0675svlp 1 tablet by mouth once daily at breakfastglimepiride (AMARYL) 1 mg tablet Take 1 mg by mouth daily with breakfast. 06/02/2024 Discontinuedtake 1 tablet by mouth once dailyGlimepiride 4 MG 1tablet Orally Once a day, taken 30 minutes prior to bkfst ActiveGlimepiride 2 MG TAKE 1 TABLET BY MOUTH ONCE DAILY 30 MINUTES PRIOR TO BREAKFAST for 90 ActiveComment on above:Take 1 mg by mouth daily with breakfast.hydroCHLOROthiazide 12.5 mg / losartan potassium 100 mg oral tablet (20 sources)Thiazide Diuretic, Angiotensin 2 Receptor BlockerStart: 12-12-2016 End: 57-10-5857mdob 1 tablet by mouth once dailyLosartan-Hydrochlorothiazide 100-12.5 mg Tablet Discontinued 1 TAB PO Daily December 12, 2016 12:00am June 04, 2023 9:29am hypertensionComment on above:Take 1 tablet by mouth once daily. 1/2 tab daily 3 ml insulin glargine 100 unt/ml pen injector (20 sources)Insulin AnalogStart: 07-07-2023 End: 61-08-4317Ijtimtk Glargine (Lantus Solostar U-100 Insulin) 100 unit/mL (3 mL) insulin pen Discontinued 30 UNIT SUBCUT Twice daily 18 30 5 July 07, 2023 6:35pm December 31, 2023 12:36pmStart: 07-01-2023 End: 24-09-8732Undynxc Glargine (Lantus Solostar U-100 Insulin) 100 unit/mL (3 mL) insulin pen Discontinued 0 .ROUTE .COMPLEX 45 3 July 01, 2023 4:28pm July 07, 2023 6:36pm INJECT 50 UNITS SUBCUTANEOUSLY ONCE A DAYStart: 06-04-2023 End: 18-52-6348nremoa 30 [IU] by subcutaneous injection twice dailyInsulin Glargine 100 unit/mL (3 mL) insulin pen Discontinued 30 UNIT SUBCUT Twice daily May 9:27am July 01, 2023 4:28pmStart: 02-18-2017 End: 93-66-2684saxpip 10 [IU] by subcutaneous injection once daily at bedtime Insulin Glargine 100 unit/mL (3 mL) insulin pen Discontinued 10 UNIT SUBCUT Daily at bedtime 3 0 February 18, 2017 1:00am June 04, 2023 9:29amStart: 12-12-2016 End: 24-59-1329mjrnhk 70 [IU] by subcutaneous injection once daily at bedtime Insulin Glargine 100 unit/mL (3 mL) insulin pen Discontinued 70 UNIT SUBCUT Daily at bedtime December 12, 2016 12:00am February 18, 2017 1:49pm diabetesinject 10 [IU] by subcutaneous injection at bedtimeinsulin glargine (Lantus SoloStar) 100 UNIT/ML pen Inject 10 Units under the skin at bedtime. Activeinsulin glargine (Lantus) 100 unit/mL injection Inject under the skin. 0 Activeinject 50 [IU] by subcutaneous injection once dailyLantus 100 UNIT/ML 50 Units Subcutaneous once a day 10 units Activeinject 20 [IU] by subcutaneous injection twice dailyLantus 100 UNIT/ML 20units Subcutaneous twice daily 10 units ActiveComment on above:Inject 10 Units subcutaneously daily at bedtime.iv contrast (will be provided with radiology test) (1 source)Start: 05-17-2024 End: 16-24-0666izcmbg 1 dose intravenously once, then inject 1 dose intravenously onceiv contrast (will be provided with radiology test) Indications: Mass of ear auricle, left , 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 (HCC) , Thrombocytopenia (HCC) , Chronic anticoagulation Inject 1 Each intravenously one time only for [address] Neck W IVCON No IV access, insert saline lock prior to the sedation, infusion, injection for imaging exam. Discontinue saline lock post exam. If Pt. has a central line or IVAD, may access for administration according to line specific nursing protocol. Once exam is complete flush line and de-access according to line specific nursing protocol in the CT contrast administration guidelines link. 1 Each 05/17/2024 05/17/2024 Expiredlidocaine 0.05 mg/mg medicated patch (14 sources)Antiarrhythmic, Amide Local AnestheticStart: 20-81-9367Kavbncrhp 5 % 1 patch to skin remove after 12 hours Externally Once a day for 30 days May, Not-Takinglinagliptin 5 mg oral tablet (20 sources)Dipeptidyl Peptidase 4 InhibitorStart: 01-13-2023 End: 47-11-9646zwpk 1 tablet by mouth once dailyLinagliptin (Tradjenta) 5 mg tablet Discontinued 5 MG PO Daily June 04, 2023 12:00am February 03, 2024 6:13pmComment on above:Take 5 mg by mouth once daily.linagliptin 2.5 mg / metFORMIN hydrochloride 1000 mg oral tablet (10 sources)Biguanide, Dipeptidyl Peptidase 4 InhibitorStart: 12-12-2016 End: 44-77-7024Ihiswysiisn-Metformin 2.5-1,000 mg tablet Discontinued 1 TAB PO 1-2 TIMES DAILY December 12, 2016 12:00am June 04, 2023 9:29am Diabetes LORazepam (14 sources)BenzodiazepineLORazepam Not-TakingMultivitamin preparation (5 sources)Start: 12-12-2016 End: 98-53-0997inli 1 tablet by mouth once dailyMultivitamin Discontinued 1 TAB PO Daily December 12, 2016 12:00am June 04, 2023 9:29amMultivitamin Tablet (5 sources)Start: 12-12-2016 End: 08-46-6851yzhk 1 tablet by mouth once dailyMultivitamin Tablet Discontinued 1 TAB PO Daily December 12, 2016 12:00am June 04, 2023 9:29amStart: 12-12-2016 End: 95-55-5339gvfu 1 tablet by mouth once dailyMultivitamin Tablet Discontinued 1 TAB PO Daily December 11, 2016 11:00pm June 04, 2023 8:29amondansetron 4 mg oral tablet (19 sources)Serotonin-3 Receptor AntagonistStart: 02-06-2017 End: 33-14-7781fmjr 1 tablet by mouth every eight hours as neededondansetron (ZOFRAN) 4 mg tablet Take 4 mg by mouth every 8 hours as needed. 02/06/2017 08/19/2024 DiscontinuedComment on above:Take 4 mg by mouth every 8 hours as needed. pantoprazole 40 mg delayed release oral tablet (20 sources)Proton Pump InhibitorStart: 02-18-2017 End: 33-72-5372yjko 1 tablet by mouth once daily in the morningPantoprazole 40 mg tablet,delayed release (DR/EC) Discontinued 40 MG PO Every morning 56 56 0 February 18, 2017 1:00am April 14, 2017 1:00am April 15, 2017 1:04am Comment on above:Take 40 mg by mouth once daily. pioglitazone 15 mg oral tablet (19 sources)Peroxisome Proliferator Receptor alpha Agonist, Peroxisome Proliferator Receptor gamma Agonist, ThiazolidinedioneStart: 06-03-2021 End: 25-15-5698reaz 1 tablet by mouth once daily before breakfastpioglitazone (ACTOS) 15 mg tablet Take 15 mg by mouth daily before breakfast. 06/03/2021 08/19/2024DiscontinuedComment on above:Take 15 mg by mouth daily before breakfast.predniSONE 5 mg oral tablet (19 sources)Start: 05-22-2017 End: 29-81-5676oezz 1 tablet by mouth once dailypredniSONE (DELTASONE) 5 mg tablet Indications: 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 (HCC) , Chronic pain due to neoplasm , Malaise and fatigue Take 1 tablet by mouth once daily. 30 tablet 05/22/2017 08/19/2024 DiscontinuedComment on above:Take 1 tablet by mouth once daily.Triamcinolone (20 sources)CorticosteroidStart: 61-24-0430Xkhsjct -40 mg Jun, 40 mg Start: 93-43-3793Futgolf -40 mg May, 40 mgStart: 78-09-5112Zfvmmya -40 mg Dec, 40 mgStart: 42-24-7313Epskudw -40 mg Jun, Problems Active Problems Problem ClassificationProblemDateDocumented DateEpisodic/ChronicAbdominal pain (1 source)Flank pain; Translations: [Unspecified abdominal pain]08-11-2023 EpisodicAcquired foot deformities (5 sources)Acquired deformity of toe of right foot; Translations: [Acquired deformities of toe(s), unspecified, right foot]05-64-4184VlvuabmeQecbatvx foot deformities (5 sources)Acquired deformity of toe of left foot; Translations: [Acquired deformities of toe(s), unspecified,left foot]01-74-0390JhgihujxZnssett tract disease (20 sources)Biliary calculus; Translations: [Calculus of gallbladder without cholecystitis without obstruction]EpisodicBlindness and vision defects (8 sources)Visual disturbance; Translations: [Other visual disturbances]Episodic Cancer of head and neck (13 sources)Malignant tumor of parotid gland; 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 EHR CmteComplication of device; implant or graft (1 source)Pain due to other internal prosthetic devices, implants and grafts, initial encounter; Translations: [Pain due to other internal prosthetic devices, implants and grafts, initial encounter]Onset: 28-07-8985LfcayvbbTiqfmmrwse and other anemia (10 sources)Anemia due to blood loss; Translations: [Iron deficiency anemia secondary to blood loss (chronic)]43-35-7538YfrxhaxEimxfov on above:Problem List clean-up per request of Phys. EHR CmteDiabetes mellitus with complications (20 sources)Polyneuropathy due to type 2 diabetes mellitus; Translations: [Type 2 diabetes mellitus with diabetic polyneuropathy]Onset: 93-10-1556Clmjetp Diabetes mellitus without complication (8 sources)Type 2 diabetes mellitus without complication; Translations: [Diabetes mellitus without mention of complication, type II or unspecified type, not stated as uncontrolled]Onset: 11-99-1490CmcpecnKkgzbgxt of mouth; excluding dental (20 sources)Mass of parotid gland; Translations: [Other diseases of salivary glands]Onset: 399144-09-1732NjnficluBuhmbzc on above:FNA w/ atypia of undetermined significance - T: 2 x 2 x 1.7cm - 01/2023FNA w/ atypia of undetermined significance - 12/2022,CT: 2 x 2 x 1.7cm - 01/2023,US: no change - 02/2023,PET/CT: not FDG avid, slight increased size - 08/2023,Disorders of lipid metabolism (20 sources)Hypercholesterolemia; Translations: [Pure hypercholesterolemia, unspecified]Onset: 94-55-7604RaddrsmO Codes: Adverse effects of medical drugs (1 source)Adverse effect of other opioids, initial encounter; Translations: [Constipation due to opioid therapy]Onset: 98-03-1235BufvwtnnYyxsiiraw hypertension (20 sources)Essential hypertension; Translations: [Essential (primary) hypertension]Onset: 32-05-8497NrzpkerQegqthdt of upper limb (20 sources)Closed fracture of acromial process of scapula; Translations: [Nondisplaced fracture of acromial process, right shoulder, initial encounter for closed fracture]EpisodicGastrointestinal hemorrhage (20 sources)Gastrointestinal hemorrhage; Translations: [Gastrointestinal hemorrhage, unspecified]Onset: 202610-20-4846YqrsyrniVoqmteg on above: Problem List clean-up per request of Phys. EHR CmteGenitourinary symptoms and ill-defined conditions (18 sources)Nocturia; Translations: [Nocturia]EpisodicHyperplasia of prostate (20 sources)Nocturia due to benign prostatic hypertrophy; Translations: [Benign prostatic hyperplasia with lower urinary tract symptoms]Onset: 27-45-4685Tchzahv Immunity disorders (20 sources)Monoclonal gammopathy (clinical); Translations: [Hypergammaglobulinemia, unspecified]Onset: 210791-84-0513Eznnaod Immunizations and screening for infectious disease (8 sources)Vaccination given; Translations: [Encounter for immunization]Episodic Lymphadenitis (1 source)Localized enlarged lymph nodesEpisodicMalaise and fatigue (20 sources)Malaise and fatigue; Translations: [Other malaise]Onset: 07-22-2013 98-69-8807OaelbtudFbqajkdmw neoplasm without specification of site (6 sources)Malignant epithelial neoplasm; Translations: [Malignant (primary) neoplasm, unspecified]Onset: 254351-35-6726YjnoxctVirv disorders (20 sources)Recurrent major depressive episodes, mild ; Translations: [Major depressive disorder, recurrent, mild]Onset: 76-04-5604GfpcdevHhxlpaer myeloma (20 sources)Multiple myeloma; Translations: [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]Onset: 00-99-5505InxrcgaJgsaoll (5 sources)Pain in toe; Translations: [Tinea unguium]85-99-2851CjudaxffNeqqhfxfj of unspecified nature or uncertain behavior (8 sources)Monoclonal gammopathy; Translations: [Monoclonal gammopathy]Onset: 99-58-4556LtivdsgJanduohjl of unspecified nature or uncertain behavior (17 sources)Neoplasm of parotid gland; Translations: [Neoplasm of unspecified behavior of digestive system]Onset: 283084-96-0134NnyzvtysCjq-Ndlrtng`s lymphoma (18 sources)History of multiple myeloma; Translations: [Personal history of other malignant neoplasms of lymphoid, hematopoietic and related tissues] EpisodicNonspecific chest pain (20 sources)Chest wall pain; Translations: [Other chest pain]Onset: 08-27-2023 00-79-4213FhhqbmnlVrhehdclyrtvsg (8 sources)Osteoarthritis; Translations: [Polyosteoarthritis, unspecified] ChronicOther aftercare (18 sources)Long-term current use of insulin; Translations: [correction (current) use of insulin]EpisodicOther aftercare (20 sources)Long-term current use of anticoagulant; Translations: [correction (current) use of anticoagulants]Onset: 294802-06-2874FxslgsvpKqhsw aftercare (7 sources)intermodal customer service (current) use of anticoagulants; Translations: [PLUMBING INSTRUCTOR CURRNT USE ANTICOAGULANTS]Onset: 93-04-5718JqxfbbhvVzubh aftercare (1 source)Other continuous churn buttermaker (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 therapyEpisodicOther aftercare (5 sources)Encounter for therapeutic drug level monitoring; Translations: [ENC THERAPEUTC DRUG LEVL MONITORING]Onset: 40-31-8832SggpwpuaFeomf aftercare (2 sources)Under care of palliative care physician; Translations: [Encounter for palliative care]62-97-5795NdpwzqubQchpu aftercare (15 sources)Drug therapy finding; Translations: [intermodal customer service (current) use of anticoagulants]Onset: 371286-83-8080TxszlhmzPocse aftercare (1 source)Encounter for palliative care; Translations: [Palliative care by specialist]Onset: 72-02-3554JglgbzvtOghvm and unspecified benign neoplasm (8 sources)Benign neoplasm of colon; Translations: [Benign neoplasm of colon, unspecified]EpisodicOther bone disease and musculoskeletal deformities (18 sources)Disorder of bone; Translations: [Disorder of bone, unspecified] EpisodicOther ear and sense organ disorders (6 sources)Mass in pinna; Translations: [Other specified disorders of left ear] 17-58-4396EdgdvbmzRsvlf ear and sense organ disorders (1 source)Other specified disorders of left ear; Translations: [Mass of ear auricle, left]Onset: 80-24-2181MzsjzuqeQwwpp endocrine disorders (8 sources)Testicular hypofunction; Translations: [Other testicular hypofunction]ChronicOther fractures (18 sources)Collapsed vertebra, not elsewhere classified, lumbar region, subsequent encounter for fracture withroutine healing; Translations: [Collapse of lumbar vertebra with routine healing]EpisodicOther gastrointestinal disorders (2 sources)Therapeutic opioid induced constipation; Translations: [Drug induced constipation]02-80-2721UitbletnGqdim gastrointestinal disorders (1 source)Drug induced constipation; Translations: [Constipation due to opioid therapy]Onset: 07-51-6466SvtvfuwwJxzkf injuries and conditions due to external causes (8 sources)History of fall; Translations: [History of falling]EpisodicOther nervous system disorders (20 sources)Pain due to neoplastic disease; Translations: [Neoplasm related pain (acute) (chronic)]Onset: 273415-94-9483FfgjhphCcyir nervous system disorders (20 sources)Carpal tunnel syndrome; Translations: [Carpal tunnel syndrome, right upper limb]ChronicOther nervous system disorders (18 sources)Cubital tunnel syndrome; Translations: [Lesion of ulnar nerve, right upper limb]ChronicOther nervous system disorders (20 sources)Carpal tunnel syndrome of right wrist; Translations: [Carpal tunnel syndrome, right upper limb]Onset: 123408-34-1021ZjiqrcyIwgxt nervous system disorders (18 sources)Complex regional pain syndrome type I of right upper limb; Translations: [Complex regional pain syndrome I of right upper limb]ChronicOther nervous system disorders (5 sources)Complex regional pain syndrome I of right upper limbChronicOther nervous system disorders (16 sources)Shoulder-hand syndrome; Translations: [Complex regional pain syndrome I of right upper limb]Onset: 55-53-8614IhpecsgDolyv nervous system disorders (8 sources)Hereditary peripheral neuropathy; Translations: [Unspecified hereditary and idiopathic peripheral neuropathy]Onset: 21-53-7215ZhvywpwDhvyl nervous system disorders (10 sources)Complex regional pain syndrome of upper limb; Translations: [Complex regional pain syndrome I of right upper limb]Onset: hronic Other nervous system disorders (1 source)Neoplasm related pain (acute) (chronic); Translations: [Chronic pain due to neoplasm]Onset: 84-01-5145RndvyifDhpbp nervous system disorders (3 sources)Pain; Translations: [Other acute postprocedural pain]09-24-2024 EpisodicOther nutritional; endocrine; and metabolic disorders (20 sources)Simple obesity ; Translations: [Other obesity due to excess calories]Onset: 51-40-5814MzvamvzDvyld nutritional; endocrine; and metabolic disorders (20 sources)Obese class II; Translations: [Body mass index (BMI) 38.0-38.9, adult]Onset: 21-84-0123HpvopdxBuhrd nutritional; endocrine; and metabolic disorders (20 sources)Obesity; Translations: [Obesity, unspecified]19-24-5402WwldntvHaotl nutritional; endocrine; and metabolic disorders (1 source)Other obesity due to excess caloriesChronicOther nutritional; endocrine; and metabolic disorders (8 sources)Morbid obesity; Translations: [Morbid (severe) obesity due to excess calories]Onset: 07-06-7479IhognmoBhkjs nutritional; endocrine; and metabolic disorders (8 sources)Obese class I; Translations: [Body mass index 32.0-32.9, adult]Onset: 87-89-4875VwhakwrJieic nutritional; endocrine; and metabolic disorders (13 sources)Body mass index 30+ - obesity; Translations: [Body mass index (BMI) 37.0-37.9, adult]Onset: 687895-30-3410XaygwzaFroot nutritional; endocrine; and metabolic disorders (1 source)Body mass index (BMI) 37.0-37.9, adult; Translations: [BMI 37.0-37.9, adult]Onset: 25-05-9494FqfjtezJdatsfobp; thrombophlebitis and thromboembolism (1 source)Chronic embolism and thrombosis of unspecified deep veins of unspecified lower extremity; Translations: [CHR EMB THROMB UNS DP VN UNS LW EXT] Onset: 89-03-2927VsivbdtOcrmwvwbq; thrombophlebitis and thromboembolism (5 sources)Acute embolism and thrombosis of unspecified deep veins of unspecified lower extremity; Translations: [AC EMBO THROMB UNS DP VN UNS LW EXT] Onset: 11-73-9881OdfrztqhSulgfurds heart disease (20 sources)H/O: pulmonary embolus; Translations: [Personal history of pulmonary embolism]Onset: 06-94-1803EcdhunevUrwcltzj codes; unclassified (18 sources)Postprocedural state finding; Translations: [Other specified postprocedural states]EpisodicSecondary malignancies (20 sources)Secondary malignant neoplasm of bone; Translations: [Secondary malignant neoplasm of bone]Onset: 457507-82-9472YixcuotKrdsmxmgz malignancies (7 sources)Secondary malignant neoplasm of bone; Translations: [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]ChronicSpondylosis; intervertebral disc disorders; other back problems (20 sources)Prolapsed thoracic intervertebral disc; Translations: [Other intervertebral disc displacement, thoracic region]43-17-0569XsihlboIhtprqczimt; intervertebral disc disorders; other back problems (20 sources)Backache; Translations: [Back pain of thoracolumbar region]Onset: 731047-78-2377Epoxhxrb Past or Other Problems Problem ClassificationProblemDateDocumented DateEpisodic/ChronicAcute posthemorrhagic anemia (8 sources)Acute posthemorrhagic anemia; Translations: [Acute posthemorrhagic anemia]Onset: 17-89-7741NbjxxxdbTvukpsejeu and other anemia (20 sources)Anemia; Translations: [Anemia, unspecified]Onset: 10-16-2016 02-55-1226ZspxqnwvOvyfxaccsdtu; infection of eye (except that caused by tuberculosis or sexually transmitteddisease) (8 sources)Acute conjunctivitis; Translations: [Unspecified acute conjunctivitis, right eye] Resolved: 25-88-7541UnpjzemaBhmlpjbxoyad conditions of male genital organs (8 sources)Acute prostatitis; Translations: [Acute prostatitis]Onset: 06-13-2017 EpisodicOther aftercare (2 sources)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; Translations: [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]Onset: 94-05-5270LoufgqnmGtkrw and unspecified benign neoplasm (8 sources)History of polyp of colon; Translations: [Personal history of colonic polyps]Onset: 35-77-6681BkeyixekNjfws connective tissue disease (8 sources)Muscle weakness; Translations: [Muscle weakness (generalized)]Onset: 05-86-9593JssgdqnoCwwdy ear and sense organ disorders (8 sources)Impacted cerumen; Translations: [Impacted cerumen]Onset: 07-28-2018 EpisodicScreening and history of mental health and substance abuse codes (8 sources)History of tobacco use; Translations: [Personal history of tobacco use, presenting hazards to health]Onset: 47-86-2538RexxoazyBywyvgd (8 sources)Syncope and collapse; Translations: [Syncope and collapse]Onset: 90-20-5388XlbzrdyrPslcbuuajomy (8 sources)Other and unspecified Escherichia coli [E. coli] infection in conditions classified elsewhere and of unspecified site; Translations: [Other and unspecified Escherichia coli [E. coli] infection in conditions classified elsewhere and of unspecified site]Onset: 52-81-2358Kffjizeapcqk (8 sources)Methicillin resistant Staphylococcus aureus; Translations: [Methicillin resistant Staphylococcus aureus]Onset: 37-57-4787Qnqazzwpbpzo (1 source)Onset: 278295-54-7061Qivyy infection (8 sources)Viral disease; Translations: [Unspecified viral infection, in conditions classified elsewhere and of unspecified site]Onset: 02-07-2014 Episodic Results Test NameValueInterpretationReference RangeFacilityCNOVSPon 82-15-6815CWTIZV NormalShelby Memorial HospitalAlbumin [Mass/volume] in Serum or PlasmaOrdered By: Anibal Ash on 10-00-5373Wjqlmdy [Mass/Vol]3.63 g/dL3.43-5.41Wilson HealthB2 Microglob SerPl-mCncon 38-41-3390Tcot-2-Microglobulin [Mass/Vol]4.6 ug/mLHigh<3.1CGalion Hospital on above:Order Comment: Specimen Type: BLOOD SPECIMENOrdering Facility: [facility] Address:[address] [place], [place] [address]Result Comment: Beta-2 Microglobulin test is performed using the [employer] immunoturbidimetric method. Results obtained with different methods or kits cannot be used interchangeably.Performed By: #### 1952-1, 2885-2 ####[facility] LABCLIA [id number] [place] [address] [place] OF AMERICABasophils Auto (Bld) [#/Vol]Ordered By: Anibal Ash on 48-18-8673Mihbeiqux (Bld) [#/Vol]10*3/uL<0.11[facility] Basophils/100 WBC Auto (Bld)Ordered By: Anibal Ash on 11-17-2024 Basophils/100 WBC (Bld)0.3 %Wilson HealthBlood manual differential comment interpretation narrativeOrdered By: Anibal Ash on 47-25-3409Ifumyj differential comment Augie (Bld) [Interp]AutoWilson HealthCB W Auto Differential panel (Bld)on 55-08-8130Mctvcxnqv (Bld) [#/Vol]10*3/uLNormal<0.11CGalion [facility] on above:Order Comment: Specimen Type: BLOOD SPECIMENOrdering Facility: [facility] Address:[address] [place], [place] [address]Performed By: #### 42710- 8 ####[facility] LABCLIA [id number] [place], [place] [address]Xrplavokv/100 WBC (Bld)0.3 %NormalOhio State East Hospital on above:Order Comment: Specimen Type: BLOOD SPECIMENOrdering Facility: [facility] Address:[address] [place], [place] [address]Performed By: #### 27372-4 ####[facility] LABCLIA [id number] [place], [place] [address]Jaansawptvja cell count method Nom (Bld)AutoNormalCGalion Hospital on above:Order Comment: Specimen Type: BLOOD SPECIMENOrdering Facility: [facility] Address:[address] [place], [place] [address]Performed By: #### 62922-7 ####[facility] LABIA [id number] [place], [place] [address]Mwqrbszemrt (Bld) [#/Vol]0.15 10*3/uLNormal<0.46[facility] on above:Order Comment: Specimen Type: BLOOD SPECIMENOrdering Facility: [facility] Address:[address] [place], [place] [address]Performed By: #### 67385-1 ####[facility] [id number] [place], [place] [address]Nzmawsgtydp/100 WBC (Bld)2.3 %NormalOhio State East Hospital on above:Order Comment: Specimen Type: BLOOD SPECIMENOrdering Facility: [facility] Address:[address] [place], [place] [address]Performed By: #### 79422-8 ####[facility] LABIA [id number] [place], [place] [address]Duumomviwca distribution width (RBC) [Ratio]13.4 %Normal 11.5-15.0[facility] on above:Order Comment: Specimen Type: BLOOD SPECIMENOrdering Facility: [facility] Address:[address] [place], [place] [address]Performed By: #### 98744-5 ####[facility] LABIA [id number] [place] [address] Hematocrit (Bld) [Volume fraction]39.4 %Gqajar44.0-51.0[facility] on above:Order Comment: Specimen Type: BLOOD SPECIMENOrdering Facility: [facility] Address:[address] [place], [place] [address]Performed By: #### 40781-0 ####[facility] LABIA [id number] [place], [place] [address]Ixvzcizsxc (Bld) [Mass/Vol]12.8 g/dLLow13.0-17.0[facility] on above:Order Comment: Specimen Type: BLOOD SPECIMENOrdering Facility: [facility] Address:[address] [place], [place] [address]Performed By: #### 55169-2 ####[facility] LABIA [id number] [place], [place] [address]Okhfwgkx granulocytes (Bld) [#/Vol]10*3/uLNormal<0.10 [facility] on above:Order Comment: Specimen Type: BLOOD SPECIMENOrdering Facility: [facility] Address:[address] [place], [place] [address]Performed By: #### 09265-4 ####[facility] LABIA [id number] [place], [place] [address]Anfbbpjc granulocytes/100 WBC (Bld)0.3 %NormalOhio State East Hospital on above: Order Comment: Specimen Type: BLOOD SPECIMENOrdering Facility: [facility] Address:[address] [place], [place] [address]Performed By: #### 04026- 8 ####[facility] LABIA [id number] [place], [place] [address]Cbhtyqjeozp (Bld) [#/Vol]1.75 10*3/uLNormal1.00-4.00 [facility] on above:Order Comment: Specimen Type: BLOOD SPECIMENOrdering Facility: [facility] Address:[address] [place], [place] [address]Performed By: #### 68946-2 ####[facility] LABIA [id number] [place], [place] [address]Fpjxgbnphpz/100 WBC (Bld)26.9 %NormalOhio State East Hospital on above:Order Comment: Specimen Type: BLOOD SPECIMENOrdering Facility: [facility] Address:[address] [place], [place] [address]Performed By: #### 96650-4 ####[facility] LABCLIA [id number] [place], [place] [address]HXK (RBC) [Entitic mass]30.5 jyJnctpt07.0-34.0[facility] on above:Order Comment: Specimen Type: BLOOD SPECIMENOrdering Facility: [facility] Address:[address] [place], [place] [address]Performed By: #### 05135-2 ####[facility] LABCLIA [id number] [place], [place] [address]LDUV (RBC) [Mass/Vol]32.5 g/rSVkilog54.5-36.0[facility] on above: Order Comment: Specimen Type: BLOOD SPECIMENOrdering Facility: [facility] Address:[address] [place], [place] [address]Performed By: #### 97082- 8 ####[facility] LABCLIA [id number] [place], [place] [address]QEM (RBC) [Entitic vol]94.0 vLRpenij01.0-100.0[facility] on above:Order Comment: Specimen Type: BLOOD SPECIMENOrdering Facility: [facility] Address:[address] [place], [place] [address]Performed By: #### 86686-5 ####[facility] LABCLIA [id number] [place], [place] [address]Vxtgwlusl (Bld) [#/Vol]0.69 10*3/uLNormal<0.87[facility] on above:Order Comment: Specimen Type: BLOOD SPECIMENOrdering Facility: [facility] Address:[address] [place], [place] [address]Performed By: #### 30811- 8 ####[facility]ENTERMAL[facility] LABCLIA [id number] [place], [place] [address]Kqimsjkxs/100 WBC (Bld)10.6 %NormalOhio State East Hospital on above:Order Comment: Specimen Type: BLOOD SPECIMENOrdering Facility: [facility] Address:[address] [place], [place] [address]Performed By: #### 48527-9 ####[facility] LABCLIA [id number] [place], [place] [address]Ehkodzlzfll (Bld) [#/Vol]3.87 10*3/uLNormal1.45-7.50[facility] on above:Order Comment: Specimen Type: BLOOD SPECIMENOrdering Facility: [facility] Address:[address] [place], [place] [address]Performed By: #### 02364-2 ####[facility]ENTERMAL[facility] LABCLIA [id number] [place], [place] [address]Yvkahywsnws/100 WBC (Bld)59.6 %NormalOhio State East Hospital on above:Order Comment: Specimen Type: BLOOD SPECIMENOrdering Facility: [facility] Address:[address] [place], [place] [address]Performed By: #### 94944-2 ####[facility] LABCLIA [id number] [place], [place] [address]Hirktayry RBC (Bld) [#/Vol] 10*3/uLNormal<0.01[facility] on above:Order Comment: Specimen Type: BLOOD SPECIMENOrdering Facility: [facility] Address:[address] [place], [place] [address]Performed By: #### 04196-2 ####[facility] LABCLIA [id number] [place], [place] [address]Mlyoewmcy RBC/100 WBC (Bld) [Ratio]0.0 /100 WBCNormal [facility] on above:Order Comment: Specimen Type: BLOOD SPECIMENOrdering Facility: [facility] Address:[address] [place], [place] [address]Performed By: #### 42816-3 ####[facility] LABCLIA [id number] [place], [place] [address]Xvgbezzr mean volume (Bld) [Entitic vol]9.6 fLNormal9.0-12.7CGalion Hospital on above:Order Comment: Specimen Type: BLOOD SPECIMENOrdering Facility: [facility] Address:[address] [place] [address] Performed By: #### 93386-9 ####[facility] LABCLIA [id number] [place], [place] [address]Nziwnucob (Bld) [#/Vol]177 10*3/gTEyeevd788-192JwcmcepiaOhio State East Hospital on above:Order Comment: Specimen Type: BLOOD SPECIMENOrdering Facility: [facility] Address:[address] [place], [place] [address]Performed By: #### 69505-4 ####[facility] LABCLIA [id number] [place], [place] [address]PZX (Bld) [#/Vol]4.19 10*6/uLLow4.20-6.00[facility] on above:Order Comment: Specimen Type: BLOOD SPECIMENOrdering Facility: [facility] Address:[address] [place], [place] [address]Performed By: #### 91949-3 ####[facility] LABCLIA [id number] [place], [place] [address]MOM (Bld) [#/Vol]6.50 10*3/uL Normal3.70-11.00[facility] on above:Order Comment: Specimen Type: BLOOD SPECIMENOrdering Facility: [facility] Address:[address] [place], [place] [address]Performed By: #### 93525-4 ####[facility] LABIA [id number] [place], [place] [address]Tefdnkv.ionized [Moles/Vol]on 10-45-0325Hyuqcjv.ionized (Bld) [Mass/Vol]1.31 mmol/LHigh1.08-1.30[facility] on above:Order Comment: Specimen Type: BLOOD SPECIMENOrdering Facility: [facility] Address:[address] [place], [place] [address]Performed By: #### 1995-0 ####[facility] LABIA [id number] [address]ETCalcium.ionized adjusted to pH 7.4 (Bld) [Moles/Vol]1.26 mmol/LNormal1.08-1.30[facility] on above:Order Comment: Specimen Type: BLOOD SPECIMENOrdering Facility: [facility] Address:[address] [place], [place] [address]Performed By: #### 1994- ####[facility] LABIA [id number] [address] OF [facility] Comprehensive metabolic 2000 panelon 57-61-7497Gjgtrxn [Mass/Vol]3.9 g/dLNormal 3.9-4.9CGalion [facility] on above:Order Comment: Specimen Type: BLOOD SPECIMENOrdering Facility: [facility] Address:[address] [place], [place] [address]Performed By: #### 3084-1, 2777-1, 2532-0, 05985-3 ####[facility] LABIA [id number] [place], [place] [address]AGJ [Catalytic activity/Vol]90 U/UQuigow36-956MinwssnchOhio State East Hospital on above:Order Comment: Specimen Type: BLOOD SPECIMENOrdering Facility: [facility] Address:[address] [place] [address]Tbrlqdahe By: #### 3084-1, 2777-1, 2532-0, 46556-9 ####[facility] LABCLIA [id number] [place], [place] [address]MSU [Catalytic activity/Vol]13 U/QEfmhbn43-13DraxbywceOhio State East Hospital on above:Order Comment: Specimen Type: BLOOD SPECIMENOrdering Facility: [facility] Address:[address] [place], [place] [address]Performed By: #### 3084-1, 2777-1, 2532-0, 59399-4 ####[facility] LABCLIA [id number] [place], [place] [address]Opgjh gap [Moles/Vol]10 mmol/LNormal8-15[facility] on above:Order Comment: Specimen Type: BLOOD SPECIMENOrdering Facility: [facility] Address:[address] [place], [place] [address]Performed By: #### 3084-1, 2777-1, 2532-0, 82700-4 ####[facility] LABIA [id number] [place], [place] [address]SHU [Catalytic activity/Vol]20 U/DIswzim98-30TbtkjqfqzOhio State East Hospital on above:Order Comment: Specimen Type: BLOOD SPECIMENOrdering Facility: [facility] Address:[address] [place], [place] [address]Performed By: #### 3084-1, 2777-1, 2532-0, 00268-0 ####[facility] LABCLIA [id number] [place], [place] [address]Jfrcohpqe [Mass/Vol]0.3 mg/dL Normal0.2-1.3CGalion [facility] on above:Order Comment: Specimen Type: BLOOD SPECIMENOrdering Facility: [facility] Address:[address] [place], [place] [address]Performed By: #### 3084-1, 2777-1, 2532-0, - 8 ####[facility] LABCLIA [id number] [place], [place] [address]Zohqssm [Mass/Vol]9.6 mg/dLNormal8.5-10.2CGalion [facility] on above:Order Comment: Specimen Type: BLOOD SPECIMENOrdering Facility: [facility] Address:[address] [place], [place] [address]Performed By: #### 3084-1, 2777-1, 2532-0, 52941-9 ####[facility] LABCLIA [id number] [place], [place] [address]Kzfoqtea [Moles/Vol]104 mmol/VCnspqj97-530XpzjwcgeqOhio State East Hospital on above: Order Comment: Specimen Type: BLOOD SPECIMENOrdering Facility: [facility] Address:[address] [place], [place] [address]Performed By: #### 3084- 1, 277-1, 2531-0, 15933-6 ####[facility] LABCLIA [id number] [place], [place] [address]ZM6 [Moles/Vol]27 mmol/LNormal 22-30[facility] on above:Order Comment: Specimen Type: BLOOD SPECIMENOrdering Facility: [facility] Address:[address] [place], [place] [address]Performed By: #### 3084-1, 277-, 2531-0, 42172-5 ####[facility] LABCLIA [id number] [place], [place] [address]Qymndolxzv [Mass/Vol]1.32 mg/dLHigh0.73-1.22[facility] on above:Order Comment: Specimen Type: BLOOD SPECIMENOrdering Facility: [facility] Address:[address] [place], [place] [address]Performed By: #### 3084-1, 2777-1, 2-0, 74826-0 ####[facility] LABCLIA [id number] [place], [place] [address]xWCCkf SerPlBld CKD-EPI 429946 mL/min/1.73m???Low>=60 [facility] on above:Order Comment: Specimen Type: BLOOD SPECIMENOrdering Facility: [facility] Address:[address] [place] [address]Jzbxrd Comment: Estimated Glomerular Filtration Rate (eGFR) is calculated using the 2020 CKD-EPI creatinine equation. This equation utilizes serum creatinine, sex, and age as parameters. The creatinine assay has traceable calibration to isotope dilution-mass spectrometry. Refer to KDIGO guidelines for clinical interpretation. In patients with unstable renal function, e.g. those with acute kidney injury, the eGFR may not accurately reflect actual GFR.Performed By: #### 3084-1, 2777-1, 2532-0, 05058-5 ####[facility] LABCLIA [id number] [place], [place] [address]Mlizjuh [Mass/Vol]149 mg/eOVblw82-94SfscitpivOhio State East Hospital on above:Order Comment: Specimen Type: BLOOD SPECIMENOrdering Facility: [facility] Address:[address] [place], [place] [address]Result Comment: The [place] Diabetes Association (ADA) provides guidance for cutoff values for fasting glucose and random glucose. The ADA defines fasting as no caloric intake for at least 8 hours. Fasting plasma glucose results between 100 to 125 mg/dL indicate increased risk for diabetes (prediab etes).Fasting plasma glucose results greater than or equal to 126 mg/dL meet the criteria for diagnosis of diabetes. In the absence of unequivocal hyperglycemia, results should be confirmed by repeattesting. In a patient with classic symptoms of hyperglycemia or hyperglycemic crisis, random plasmaglucose results greater than or equal to 200 mg/dL meet the criteria for diagnosis of diabetes.Reference: Standards of Medical Care in Diabetes 2016, [place] Diabetes Association. Diabetes Care. 2016.39(Suppl 1).Performed By: #### 3084-1, 2777-1, 2532-0, 37643-9 ####[facility] LABCLIA [id number] [place], [place] [address]Uleggczla [Moles/Vol]4.1 mmol/L Normal3.7-5.1CGalion [facility] on above:Order Comment: Specimen Type: BLOOD SPECIMENOrdering Facility: [facility] Address:[address] [place], [place] [address]Performed By: #### 3084-1, 2777-1, 2532-0, 37148- 8 ####[facility] LABCLIA [id number] [place], [place] [address]Oxavfg [Moles/Vol]141 mmol/APtfozh777-086OzhljbbmgOhio State East Hospital on above:Order Comment: Specimen Type: BLOOD SPECIMENOrdering Facility: [facility] Address:[address] [place], [place] [address]Performed By: #### 3084-1, 2777-1, 2532-0, 43806-5 ####[facility] LABIA [id number] [place], [place] [address]Yjdq nitrogen [Mass/Vol]13 mg/dLNormal9-24[facility] on above: Order Comment: Specimen Type: BLOOD SPECIMENOrdering Facility: [facility] Address:[address] [place], [place] [address]Performed By: #### 3084- 1, 2777-1, 2532-0, 18001-5 ####[facility] LABIA [id number] [place], [place] [address]Skiyyisqdiq/100 WBC Auto (Bld) Ordered By: Anibal Ash on 56-96-7006Kkvkbzfnlfd/100 WBC (Bld)2.3 %Wilson HealthErythrocyte distribution width Auto (RBC) [Ratio]Ordered By: Anibal Bazziar on 79-91-9646Pdsccmbaqhr distribution width (RBC) [Ratio] 13.4 %11.5-15.0Wilson HealthGlomerular filtration rate [Volume Rate/Area] in Serum, Plasma or Blood by CreatinineOrdered By: Anibal Ash on 60-70-3140Juelevnwfd filtration rate [Volume Rate/Area] in Serum, Plasma or Blood by Ptfhxdlxcq12 mL/min/1.73m???Low>=60Wilson HealthComment on above:Estimated Glomerular Filtration Rate (eGFR) is calculated using the 2020 CKD-EPI creatinine equation. This equation utilizes serum creatinine, sex, and age as parameters. The creatinine assay has traceable calibration to isotope dilution-mass spectrometry. Refer to KDIGO guidelines for clinical interpretation. In patients with unstable renal function, e.g. those with acute kidney injury, the eGFRmay not accurately reflect actual GFR. Hematocrit Auto (Bld) [Volume fraction]Ordered By: Anibal Ash on 11-17-2024 Hematocrit (Bld) [Volume fraction]39.4 %39.0-51.0Wilson HealthHemoglobin [Mass/volume] in BloodOrdered By: Anibal Ash on 11-17-2024 Hemoglobin (Bld) [Mass/Vol]12.8 g/dLLow13.0-17.0Wilson HealthIMMUNOFIXATION SCREEN, SERUMon 89-50-6771FPLZXTNLPZRHBM (MPA)Atypical restricted bands are present in the IgG and kappa regions. Consistent with IgG kappa monoclonal gammopathy.NormalOhio State East Hospital on above: Order Comment: Specimen Type: BLOOD SPECIMENOrdering Facility: [facility] Address:[address] [place], [place] [address]Performed By: #### IFESC ####[facility] LABCLIA [id number] [facility] AVENUEMISSION COMMUNITY HOSPITALK [address] [place] [address] [place] AMERICAMPA RESULTM protein is present. AbnormalNo M protein is identified.[facility] on above: Order Comment: Specimen Type: BLOOD SPECIMENOrdering Facility: [facility] Address:[address] [place], [place] [address]Performed By: #### IFESC ####[facility] LABCLIA [id number] [facility] [address] [place] [address] [place] OF AMERICASTAFF REVIEW (MPA)Reviewed by Kevin RasconrmalCGalion Hospital on above:Order Comment: Specimen Type: BLOOD SPECIMENOrdering Facility: [facility] Address:[address] [place], [place] [address]Performed By: #### IFESC ####[facility] LABCLIA [id number] [place] [address] [place] AMERICAIMMUNOGLOBULINS,IGG,IGA,IGMon 18-49-6467QyV [Mass/Vol]228 mg/lYKikgcr33-657YtojanvxrOhio State East Hospital on above:Order Comment: Specimen Type: BLOOD SPECIMENOrdering Facility: [facility] Address:[address] [place] [address] Performed By: #### SERIMM ####[facility] LABCLIA [id number] [place] [address] [place] IgG [Mass/Vol]1383 mg/lBFjcosm564-6049VpfudwcqtOhio State East Hospital on above:Order Comment: Specimen Type: BLOOD SPECIMENOrdering Facility: [facility] Address:[address] [place], [place] [address]Performed By: #### SERIMM ####[facility] LABCLIA [id number] [place] [address] [place] AMERICAIgM [Mass/Vol]280 mg/dL Rkjl58-688XqcupthmzOhio State East Hospital on above:Order Comment: Specimen Type: BLOOD SPECIMENOrdering Facility: [facility] Address:[address] [place], [place] [address]Performed By: #### SERIMM ####[facility] LABCLIA [id number] [place] [address] [place] AMERICAIgA [Mass/volume] in Serum or PlasmaOrdered By: Anibal Abhyankar on 89-72-1014PdG [Mass/Vol]228 mg/jT22-946KjjkxdodeWilson HealthIgG [Mass/volume] in Serum or PlasmaOrdered By: Anibal Abhyankar on 68-90-2164BfF [Mass/Vol]1383 mg/iA910-7335CyaislbejWilson HealthIgM [Mass/volume] in Serum or PlasmaOrdered By: Anibal Abhyankar on 24-16-0304UvJ [Mass/Vol]280 mg/gDEiqi20-096MtujvzhxvWilson HealthImmunoglobulin light chains.kappa.free [Mass/volume] in SerumOrdered By: Anibal Abhyankar on 99-69-4246Mxkjdzvehcynyl light chains.kappa.free (S) [Mass/Vol]233.0 mg/LHigh 3.3-19.4FOhioHealth Nelsonville Health CenterComment on above:Rarely, increased serum free light chains levels may not be detected or accurately quantified due to prozone phenomenon or in high viscosity samples using this immunoturbidimetric assay. Correlation with other laboratory results and clinical findings is recommended. The [place] Free Light Chain was performed using the Binding Site Optilite immunoturbidimetric method. Result obtained with different assay methods or kits cannot be used interchangeably.Immunoglobulin light chains.kappa.free/Immunoglobulin light chains.lambda.free [MassOrdered By: Anibal Abhyankar on 81-44-6363Cueqtekoyktwkl light chains.kappa.free/Immunoglobulin light chains.lambda.free (S) [Mass ratio]4.88 High0.26-1.65Wilson HealthImmunoglobulin light chains.lambda.free [Mass/volume] in Serum or PlasmaOrdered By: Anibal Abhyankar on 02-72-4782Sdjkfblwmenfil light chains.lambda.free [Mass/Vol]47.7 mg/LHigh 5.7-26.3FOhioHealth Nelsonville Health CenterComment on above:Rarely, increased serum free light chains levels may not be detected or accurately quantified due to prozone phenomenon or in high viscosity samples using this immunoturbidimetric assay. Correlation with other laboratory results and clinical findings is recommended. The [place] Free Light Chain was performed using the Binding Site Optilite immunoturbidimetric method. Result obtained with differentassay methods or kits cannot be used interchangeably. KAPPA/COTA,FREE,SERon 23-43-3806Uindjagorpqrnk light chains.kappa.free (S) [Mass/Vol]233.0 mg/LHigh3.3-19.4CGalion Hospital on above:Order Comment: Specimen Type: BLOOD SPECIMENOrdering Facility: [place] [facility] Address:[address] [place], [place] [address]Result Comment: Rarely, increased serum free light chains levels may not be detected or accurately q uantified due to prozone phenomenon or in high viscosity samples using this immunoturbidimetric assay. Correlation with other laboratory results and clinical findings is recommended.The [place] Free Light Chain was performed using the Binding Site Optilite immunoturbidimetric method. Result obtained with different assay methods or kits cannot be used interchangeably.Performed By: #### KLFRS ####[facility] LABCLIA [id number] [place] [address] [place] OF AMERICAImmunoglobulin light chains.kappa/Immunoglobulin light chains.lambda (S) [Mass ratio]4.88High 0.26-1.65[facility] on above:Order Comment: Specimen Type: BLOOD SPECIMENOrdering Facility: [facility] Address:[address] [place], [place] [address]Performed By: #### KLFRS ####[facility] LABCLIA [id number] [place] [address] [place] AMERICAImmunoglobulin light chains.lambda.free [Mass/Vol]47.7 mg/LHigh5.7-26.3CGalion [facility] on above:Order Comment: Specimen Type: BLOOD SPECIMENOrdering Facility: [facility] Address:[address] [place], [place] [address]Result Comment: Rarely, increased serum free light chains levels may not be detected or accurately quantified due to prozone phenomenon or in high viscosity samples using this immunoturbidimetric assay. Correlation with other laboratory results and clinical findings is recommended.The Lambda Free Light Chain was performed using the Binding Site Optilite immunoturbidimetric method. Result obtainedwith different assay methods or kits cannot be used interchangeably.Performed By: #### KLFRS ####[facility] LABCLIA [id number] [place] [address] [place] OF AMERICALDH SerPl-cCncon 56-44-1474TOF [Catalytic activity/Vol]142 U/FHggvls176-872WqbzwxknaShelby Memorial HospitalComment on above:Order Comment: Specimen Type: BLOOD SPECIMENOrdering Facility: [facility] Address:[address] [place], [place] [address]Wsxxgsblm By: #### 3084-1, 2777-1, 2532-0, 34022-5 ####[facility] LABCLIA [id number] [place] [address] Laboratory - Chemistry and Chemistry - challengeOrdered By: Anibal Ash on 42-85-7211Mqkgnov [Mass/Vol]3.9 g/dL3.9-4.9Wilson HealthALP [Catalytic activity/Vol]90 U/Z46-625MogdkuiloWilson HealthALT [Catalytic activity/Vol]13 U/G53-10XyxedgsweWilson HealthAST [Catalytic activity/Vol]20 U/D99-17XmgcclqvsWilson HealthBilirubin [Mass/Vol]0.3 mg/dL0.2-1.3FOhioHealth Nelsonville Health CenterCalcium [Mass/Vol]9.6 mg/dL8.5-10.2FOhioHealth Nelsonville Health CenterChloride [Moles/Vol]104 mmol/L 98-107Wilson HealthCO2 [Moles/Vol]27 mmol/M89-62ZknyvnrgfWilson HealthCreatinine [Mass/Vol]1.32 mg/dLHigh0.73-1.22Wilson HealthGlucose [Mass/Vol]149 mg/oODndq62-52CvznpftfoWilson HealthComment on above:The [place] Diabetes Association (ADA) provides guidance for cutoff values for fasting glucose andrandom glucose. The ADA defines fasting as no caloric intake for at least 8 hours. Fasting plasma gl ucose results between 100 to 125 mg/dL indicate increased risk for diabetes (prediabetes).Fasting plasma glucose results greater than or equal to 126 mg/dL meet the criteria for diagnosis of diabetes. In the absence of unequivocal hyperglycemia, results should be confirmed by repeat testing. In a patient with classic symptoms of hyperglycemia or hyperglycemic crisis, random plasma glucose resultsgreater than or equal to 200 mg/dL meet the criteria for diagnosis of diabetes.Reference: Standardsof Medical Care in Diabetes 2016, [place] Diabetes Association. Diabetes Care. 2016.39(Suppl 1).LDH [Catalytic activity/Vol]142 U/Y807-577IdaoptvdmWilson HealthPotassium [Moles/Vol]4.1 mmol/L 3.7-5.1FOhioHealth Nelsonville Health CenterProtein [Mass/Vol]0.43 g/dLHigh<=0.00 [facility] Hospitalodium [Moles/Vol]141 mmol/Z954-936AirryhdkeWilson HealthUrate [Mass/Vol]4.8 mg/dL4.0-8.1FOhioHealth Nelsonville Health CenterUrea nitrogen [Mass/Vol]13 mg/dL9-24Wilson HealthLaboratory - Hematology and Cell countsOrdered By: Anibal Ash on 39-28-5471Booifthccgp (Bld) [#/Vol]0.15 10*3/uL<0.46Wilson HealthImmature granulocytes/100 WBC (Bld)0.3 %[facility] Leukocytes [#/volume] corrected for nucleated erythrocytes in Blood by Automated counOrdered By: Anibal Ash on 37-86-8015SXT corrected for nucl RBC Auto (Bld) [#/Vol]6.50 k/uL3.70-11.00Wilson HealthLymphocytes Auto (Bld) [#/Vol]Ordered By: Anibal Ash on 35-31-7492Lfbjywmmajd (Bld) [#/Vol]1.75 10*3/uL1.00-4.00Wilson HealthLymphocytes/100 WBC Auto (Bld)Ordered By: Anibal Ash on 14-97-7669Kzamcinefjn/100 WBC (Bld) 26.9 %[facility] Auto (RBC) [Entitic mass]Ordered By: Anibal Ash on 08-38-5022TEI (RBC) [Entitic mass]30.5 pg26.0-34.0Wilson HealthMCHC Auto (RBC) [Mass/Vol]Ordered By: Anibal Ash on 49-45-2347QFQF (RBC) [Mass/Vol]32.5 g/dL30.5-36.0Wilson HealthMCV Auto (RBC) [Entitic vol]Ordered By: Anibal Ash on 60-61-3777VPV (RBC) [Entitic vol]94.0 fL80.0-100.0Wilson HealthMonocytes Auto (Bld) [#/Vol]Ordered By: Anibalfernie Ash on 56-26-8987Wxeghsvvg (Bld) [#/Vol]0.69 10*3/uL<0.87Wilson HealthMonocytes/100 WBC Auto (Bld)Ordered By: [facility] Mihir on 16-72-4088Cdjqymulk/100 WBC (Bld)10.6 % Wilson HealthNeutrophils Auto (Bld) [#/Vol]Ordered By: Anibalfernie Ash on 02-44-0618Hbyimjocdnm (Bld) [#/Vol]3.87 10*3/uL1.45-7.50Wilson HealthNeutrophils/100 WBC Auto (Bld)Ordered By: Anibal Mihir on 97-88-8677Jgriqgptbal/100 WBC (Bld)59.6 %Wilson HealthNo Panel InformationOrdered By: [facility] daron on 25-49-3667Fssyutkz Granulocyte # (Auto)<0.03 k/uL<0.10Wilson HealthImmunofixation InterpretationWilson HealthIonized Calcium (pH Adjusted)1.26 mmol/L1.08-1.30Wilson HealthLeuk/Lymph Sign Pathologist (Misc)Reviewed by Namrata Byrd MDWilson HealthMiscellaneous Test 6Gamma Fraction 1FOhioHealth Nelsonville Health CenterMiscellaneous Test CommentReviewed by Namrata Byrd MDWilson HealthPhosphorus Level2.8 mg/dL2.7-4.8Wilson HealthProtein Electrophoresis InterpretWilson HealthProtein Electrophoresis NoteAn M protein is identified on protein electrophoresis.AbnormalNo definitive M protein is identified on protein electrophoresis.Western Reserve Hospitalerum ImmunofixationM protein is present.AbnormalNo M protein is identified.Wilson HealthNucleated RBC Auto (Bld) [#/Vol]Ordered By: Anibal Ash on 04-51-4185Iujdebonk RBC (Bld) [#/Vol]10*3/uL<0.01Wilson HealthNucleated erythrocytes [Presence] in Blood by Automated count Ordered By: Anibal Ash on 15-50-2826Tnmhqxhua RBC Auto Ql (Bld)0.0 /100{WBC}Wilson HealthPROTEIN ELECTROPHORESIS SERUM (P)on 36-28-1593Hbsyaey [Mass/Vol]3.63 g/dLNormal3.43-5.41[facility] Comment on above:Order Comment: Specimen Type: BLOOD SPECIMENOrdering Facility: [facility] Address:[address] [place] [address] Performed By: #### [id number] ####[facility] LABCLIA [id number] [place] [address] [place] Alpha 1 globulin Elph [Mass/Vol]0.29 g/dLNormal0.18-0.43[facility] on above:Order Comment: Specimen Type: BLOOD SPECIMENOrdering Facility: [facility] Address:[address] [place], [place] [address]Performed By: #### [id number] ####[facility] LABCLIA [id number] [place] [address] [place] Alpha 2 globulin Elph [Mass/Vol]0.77 g/dLNormal0.42-0.98[facility] on above:Order Comment: Specimen Type: BLOOD SPECIMENOrdering Facility: [facility] Address:[address] [place], [place] [address]Performed By: #### [id number] ####[facility] LABCLIA [id number] [address] [address] [place] Beta globulin Elph [Mass/Vol]0.80 g/dLNormal0.61-1.17[facility] Comment on above:Order Comment: Specimen Type: BLOOD SPECIMENOrdering Facility: [facility] Address:[address] [place] [address] Performed By: #### [id number] ####[facility] LABCLIA [id number] [place] [address] [place] Gamma globulin Elph [Mass/Vol]1.31 g/dLNormal0.53-1.51[facility] Comment on above:Order Comment: Specimen Type: BLOOD SPECIMENOrdering Facility: [facility] Address:[address] [place] [address] Performed By: #### [id number] ####[facility] LABCLIA [id number] [address] STATES [facility] INTERPRETATION COMMENT FOR PROTEIN ELECTROPHORESISSee separate immunofixation report for characterization of monoclonal gammopathy.NormalOhio State East Hospital on above:Order Comment: Specimen Type: BLOOD SPECIMENOrdering Facility: [facility] Address:[address] [place], [place] [address]Performed By: #### [id number] ####[facility] LABCLIA [id number] [place] [address] [place] M-PROTEIN LOCATIONGamma Fraction 1NormalOhio State East Hospital on above:Order Comment: Specimen Type: BLOOD SPECIMENOrdering Facility: [facility] Address:[address] [place], [place] [address]Performed By: #### [id number] ####[facility] LABCLIA [id number] [place] [address] [place] AMERICAProtein Fractions [Interp]An M protein is identified on protein electrophoresis.AbnormalNo definitive M protein is identified on protein electrophoresis.[facility] on above:Order Comment: Specimen Type: BLOOD SPECIMENOrdering Facility: [facility] Address:[address] [place], [place] [address]Performed By: #### [id number] ####[facility] LABCLIA [id number] [place] [address] [place] Protein.monoclonal Elph [Mass/Vol]0.43 g/dLHigh<=0.00[facility] Comment on above:Order Comment: Specimen Type: BLOOD SPECIMENOrdering Facility: [facility] Address:[address] [place] [address] Performed By: #### [id number] ####[facility] LABCLIA [id number] [place] [address] [place] SPE STAFF REVIEWReviewed by Namrata Byrd MDNormalCAccess Hospital Dayton Comment on above:Order Comment: Specimen Type: BLOOD SPECIMENOrdering Facility: [facility] Address:[address] [place] [address] Performed By: #### [id number] ####[facility] LABCLIA [id number] [place] [id number] [place] Phosphate SerPl-mCncon 02-47-4613Isytbyupm [Mass/Vol]2.8 mg/dLNormal2.7-4.8 [facility] HospitalComment on above:Order Comment: Specimen Type: BLOOD SPECIMENOrdering Facility: [facility] Address:[address] [place], [place] [address]Performed By: #### 3084-1, 2777-1, 2532-0, 70296-1 ####[facility] LABCLIA [id number] [place], [place] [address]Gxqepwyz mean volume Auto (Bld) [Entitic vol]Ordered By: Anibal Ash on 27-84-5949Xgglopbi mean volume (Bld) [Entitic vol]9.6 fL 9.0-12.7FOhioHealth Nelsonville Health CenterPlatelets Auto (Bld) [#/Vol]Ordered By: Anibal Ash on 69-07-6028Nvhsckwgp (Bld) [#/Vol]177 10*3/dE835-470HxhqhtuglWilson HealthProt SerPl-mCncon 65-40-8369Rjioupx [Mass/Vol]6.8 g/dL Normal6.3-8.0[facility] on above:Order Comment: Specimen Type: BLOOD SPECIMENOrdering Facility: [facility] Address:[address] [place], [place] [address]Performed By: #### 1952-1, 2885-2 ####[facility] LABCLIA [id number] [place] [address] [place] AMERICAPerformed By: #### 3084-1, 2777-1, 2532-0, 89133-5 ####[facility] LABCLIA [id number] [place], [place] [address]Pqgqcmf [Mass/volume] in Serum or PlasmaOrdered By: Anibal Ash on 24-74-2095Daiexlp [Mass/Vol]6.8 g/dL6.3-8.0Wilson HealthRBC Auto (Bld) [#/Vol]Ordered By: Anibal Ash on 10-24-8979DBV (Bld) [#/Vol]4.19 10*6/uLLow4.20-6.00Western Reserve Hospitalerum ionized calcium measurement using ion specific electrode (mass/volume)Ordered By: Anibal Ash on 91-75-3201Ptqyuwz.ionized ISE [Mass/Vol]1.31 mmol/LHigh 1.08-1.30[facility] Reserve Hospitalerum or plasma alpha 1 globulin measurement by electrophoresis (mass/volume)Ordered By: Anibal Ash on 40-83-2407Yehwd 1 globulin Elph [Mass/Vol]0.29 g/dL0.18-0.43[facility] Reserve Hospitalerum or plasma alpha 2 globulin measurement by electrophoresis (mass/volume)Ordered By: Anibal Ash on 45-59-5273Btoct 2 globulin Elph [Mass/Vol]0.77 g/dL0.42-0.98[facility] Reserve Hospitalerum or plasma anion gap determinationOrdered By: Anibal Ash on 19-16-8810Ctwga gap [Moles/Vol]10 mmol/L11-05Western Reserve Hospitalerum or plasma beta globulin measurement by electrophoresis (mass/volume)Ordered By: Anibal Ash on 02-89-0263Zyqs globulin Elph [Mass/Vol]0.80 g/dL0.61-1.17[facility] Hospitalerum or plasma wopt-4-zeycvpmdlevdj measurement (mass/volume) Ordered By: Anibal Ash on 89-45-9125Cefy-2-Microglobulin [Mass/Vol]4.6 ug/mLHigh<3.1FOhioHealth Nelsonville Health CenterComment on above:Beta-2 Microglobulin test is performed using the [employer] immunoturbidimetric method. Results obtained with different methods or kits cannot be used interchangeably.Serum or plasma gamma globulin measurement by electrophoresis (mass/volume)Ordered By: Anibal Ash on 68-52-4584Ccrid globulin Elph [Mass/Vol]1.31 g/dL0.53-1.51Wilson HealthUrate SerPl-mCncon 79-96-3187Ayylc [Mass/Vol]4.8 mg/dLNormal4.0-8.1CAccess Hospital Dayton Comment on above:Order Comment: Specimen Type: BLOOD SPECIMENOrdering Facility: [facility] Address:[address] [place] [address] Performed By: #### 3084-1, 2777-1, 2532-0, 56430-7 ####[facility] LABCLIA [id number] [place], [place] [address]YCCKue 09-94-1039WFOVDhwoyzBxbleguep Clinic ClevelandCNOVNormalCAccess Hospital DaytonCNPNon 78-02-0649BLCOYjfqweTsrgjzhrh Clinic ClevelandBasi metabolic 2000 panelon 53-58-9585Gfhuw gap [Moles/Vol]12 mmol/LNormal11-05[facility] HospitalComment on above:Order Comment: Specimen Type: BLOOD SPECIMENOrdering Facility: [facility] Address:[address] [place] [address]Tuvofhrsz By: #### 76887-3, , 2776-03 ####[facility] LABCLIA [id number] VILLE [id number] [place] AMERICACalcium [Mass/Vol]9.5 mg/dLNormal8.5-10.2ClevelCone Health Alamance RegionalComment on above:Order Comment: Specimen Type: BLOOD SPECIMENOrdering Facility: [facility] Address:[address] [place], [place] [address]Performed By: #### 72662-1, , 2776-03 ####[facility] LABCLIA [id number] VILLE [address] [place] AMERICAChloride [Moles/Vol]101 mmol/WKysfmz19-559ZjnquwnwiShelby Memorial HospitalComment on above:Order Comment: Specimen Type: BLOOD SPECIMENOrdering Facility: [facility] Address:[address] [place], [place] [address]Performed By: #### 45490-6, , 2776-03 ####[facility] LABIA [id number] VILLE [address] [place] AMERICACO2 [Moles/Vol]22 mmol/SNdjgnc05-87WaxpojfokShelby Memorial Hospital Comment on above:Order Comment: Specimen Type: BLOOD SPECIMENOrdering Facility: [facility] Address:[address] [place], [place] [address] Performed By: #### 52182-3, , 2776-03 ####[facility] LABIA [id number] VILLE [address] [place] AMERICACreatinine [Mass/Vol]1.23 mg/dLHigh0.73-1.22[facility] Comment on above:Order Comment: Specimen Type: BLOOD SPECIMENOrdering Facility: [facility] Address:[address] [place], [place] [address] Performed By: #### 87845-0, 2776-03 ####[facility] LABCLIA [id number] [address] [place] AMERICACreatinine and Glomerular filtration rate.predicted panel (S/P/Bld)58 mL/min/1.73m???Low>=60[facility] on above:Order Comment: Specimen Type: BLOOD SPECIMENOrdering Facility: [facility] Address:[address] [place], [place] [address]Result Comment: Estimated Glomerular Filtration Rate (eGFR) is calculated using the 2020 CKD-EPI creatinine equation. This equation utilizes serum creatinine, sex, and age as parameters. The creatinine assay has traceable calibration to isotope dilution-mass spectrometry. Refer to KDIGO guidelines for clinical interpretation. In patients with unstable renal function, e.g. those with acute kidney injury, the eGFR may not accurately reflect actual GFR.Performed By: #### 06838-3, , 2776-03 ####[facility] LABCLIA [id number] [address] [place] AMERICAGlucose [Mass/Vol]216 mg/dLHigh 74-99[facility] on above:Order Comment: Specimen Type: BLOOD SPECIMENOrdering Facility: [facility] Address:[address] [place], [place] [address]Result Comment: The [place] Diabetes Association (ADA) provides guidance for cutoff [...] unequivocal hyperglycemia, results should be confirmed by repeattesting. In a patient with classic symptoms of hyperglycemia or hyperglycemic crisis, random plasmaglucose results greater than or equal to 200 mg/dL meet the criteria for diagnosis of diabetes.Reference: Standards of Medical Care in Diabetes 2016, [place] Diabetes Association. Diabetes Care. 2016.39(Suppl 1).Performed By: #### 49632- 2, , 2776-03 ####[facility] LABCLIA [id number] [address] [place] AMERICAPotassium [Moles/Vol] 4.8 mmol/LNormal3.7-5.1CGalion Hospital on above:Order Comment: Specimen Type: BLOOD SPECIMENOrdering Facility: [facility] Address:[address] [place], [place] [address]Performed By: #### 01284-0, , 2776-03 ####[facility] LABIA [id number] VILLE [id number] [place] AMERICASodium [Moles/Vol]135 mmol/LLow 136-144[facility] on above:Order Comment: Specimen Type: BLOOD SPECIMENOrdering Facility: [facility] Address:[address] [place], [place] [address]Performed By: #### 42651-4, , 2776-03 ####[facility]PITALIA [id number] VILLE [id number] [place] AMERICAUrea nitrogen [Mass/Vol]22 mg/dL Normal9-24[facility] on above:Order Comment: Specimen Type: BLOOD SPECIMENOrdering Facility: [facility] Address:[address] [place], [place] [address]Performed By: #### 53767-2, , 2776-03 ####[facility] HOSPITALIA [id number] VILLE [id number] [place] AMERICACB panel Auto (Bld)on 09-19-2024 Erythrocyte distribution width (RBC) [Ratio]13.2 %Slxjvw75.5-15.0[facility] on above:Order Comment: Specimen Type: BLOOD SPECIMENOrdering Facility: [facility] Address:[address] [place], [place] [address]Performed By: #### 21527-9 ####[facility] LABIA [id number] [place] [address] [place] AMERICAHematocrit (Bld) [Volume fraction]38.7 %Low39.0-51.0[facility] on above:Order Comment: Specimen Type: BLOOD SPECIMENOrdering Facility: [facility] Address:[address] [place], [place] [address]Performed By: #### 78329-7 ####[facility] [id number] [place] [address] [place] Hemoglobin (Bld) [Mass/Vol]12.8 g/dLLow13.0-17.0[facility] Comment on above:Order Comment: Specimen Type: BLOOD SPECIMENOrdering Facility: [facility] Address:[address] [place] [address] Performed By: #### 92264-1 ####[facility] [id number] [place] [address] [place] MCH (RBC) [Entitic mass]29.8 raRhtahb95.0-34.0[facility] on above:Order Comment: Specimen Type: BLOOD SPECIMENOrdering Facility: [facility] Address:[address] [place] [address] Performed By: #### 81248-2 ####[facility] [id number] [place] [address] [place] MCHC (RBC) [Mass/Vol]33.1 g/pPTpduab43.5-36.0[facility] on above:Order Comment: Specimen Type: BLOOD SPECIMENOrdering Facility: [facility] Address:[address] [place] [address] Performed By: #### 64180-1 ####[facility] LABIA [id number] [place] [address] [place] MCV (RBC) [Entitic vol]90.2 pJSeydpa71.0-100.0[facility] on above:Order Comment: Specimen Type: BLOOD SPECIMENOrdering Facility: [facility] Address:[address] [place] [address] Performed By: #### 66807-5 ####[facility] LABCLIA [id number] [place] [address] [place] Nucleated RBC (Bld) [#/Vol]10*3/uLNormal<0.01[facility] on above:Order Comment: Specimen Type: BLOOD SPECIMENOrdering Facility: [facility] Address:[address] [place] [address] Performed By: #### 06583-5 ####[facility] LABIA [id number] [place] [address] [place] Platelet mean volume (Bld) [Entitic vol]9.9 fLNormal9.0-12.7CGalion Hospital on above:Order Comment: Specimen Type: BLOOD SPECIMENOrdering Facility: [facility] Address:[address] [place], [place] [address]Performed By: #### 10098-6 ####[facility] LABIA [id number] [place] [address] [place] Platelets (Bld) [#/Vol]207 10*3/pVRxfkdh846-436YldyyyjemOhio State East Hospital on above:Order Comment: Specimen Type: BLOOD SPECIMENOrdering Facility: [facility] Address:[address] [place] [address] Performed By: #### 23959-2 ####[facility] LABIA [id number] [place] [address] [place] RBC (Bld) [#/Vol]4.29 10*6/uLNormal4.20-6.00[facility] on above:Order Comment: Specimen Type: BLOOD SPECIMENOrdering Facility: [facility] Address:[address] [place] [address]Hjildmijn By: #### 38947-1 ####[facility] LABIA [id number] [place] [address] [place] AMERICAWBC (Bld) [#/Vol]9.59 10*3/uLNormal3.70-11.00[facility] HospitalComment on above:Order Comment: Specimen Type: BLOOD SPECIMENOrdering Facility: [facility] Address:[address] [place], [place] [address]Performed By: #### 18125-2 ####[facility] LABIA [id number] [place] [address] [place] AMERICAErythrocyte distribution width Auto (RBC) [Ratio]Ordered By: Gurpreet Pang on 69-52-4522Ngdgdvcsoee distribution width (RBC) [Ratio]13.2 %11.5-15.0[facility] Hematocrit Auto (Bld) [Volume fraction]Ordered By: Gurpreet Pang on 09-19-2024 Hematocrit (Bld) [Volume fraction]38.7 %Low39.0-51.0Wilson HealthHemoglobin [Mass/volume] in BloodOrdered By: Gurpreet Pang on 09-19-2024 Hemoglobin (Bld) [Mass/Vol]12.8 g/dLLow13.0-17.0[facility] HealthLaboratory - Chemistry and Chemistry - challengeOrdered By: Gurpreet Pang on 10-97-8045Kvtfnnh [Mass/Vol]9.5 mg/dL8.5-10.2FOhioHealth Nelsonville Health CenterChloride [Moles/Vol]101 mmol/L56-454LapdmmydbWilson HealthCO2 [Moles/Vol]22 mmol/R18-89OjoifjmomWilson HealthCreatinine [Mass/Vol] 1.23 mg/dLHigh0.73-1.22Wilson HealthGlucose [Mass/Vol]216 mg/jKDebo24-56ZnpgbvdxeWilson HealthComment on above:The [place] [employer] (ADA) provides guidance for cutoff values for fasting glucose andrandom glucose. The ADA defines fasting as no [...] hyperglycemia or hyperglycemic crisis, random plasma glucose resultsgreater than or equal to 200 mg/dL meet the criteria for diagnosis of diabetes.Reference: [employer] Diabetes 2016, [place] [employer]. Diabetes Care. 2016.39(Suppl 1). Magnesium [Mass/Vol]1.8 mg/dL1.7-2.3FOhioHealth Nelsonville Health CenterPotassium [Moles/Vol]4.8 mmol/L3.7-5.1FCleveland Clinic [facility] General Lodi Hospitalodium [Moles/Vol] 135 mmol/VEpa538-383RdvbwzkogWilson HealthUrea nitrogen [Mass/Vol]22 mg/dL9-24Wilson HealthLeukocytes [#/volume] corrected for nucleated erythrocytes in Blood by Automated counOrdered By: Gurpreet Pang on 54-82-4793TVN corrected for nucl RBC Auto (Bld) [#/Vol]9.59 k/uL3.70-11.00 [facility] Auto (RBC) [Entitic mass]Ordered By: Gurpreet Pang on 21-62-0706GQW (RBC) [Entitic mass]29.8 pg26.0-34.0Wilson HealthMCHC Auto (RBC) [Mass/Vol]Ordered By: Gurpreet Pang on 09-19-2024 MCHC (RBC) [Mass/Vol]33.1 g/dL30.5-36.0Wilson HealthMCV Auto (RBC) [Entitic vol]Ordered By: Gurpreet Pang on 41-55-2684WNO (RBC) [Entitic vol]90.2 fL80.0-100.0Wilson HealthMagnesium SerPl-mCncon 90-60-7442Kmpmfyfza [Mass/Vol]1.8 mg/dLNormal1.7-2.3CA[facility] Comment on above:Order Comment: Specimen Type: BLOOD SPECIMENOrdering Facility: [facility] Address:[address] [place] [id number] Performed By: #### 54088-1, , 2776-03 ####[facility] LABCLIA [id number] VILLE [id number] [place] OF AMERICANo Panel InformationOrdered By: Gurpreet Pang on 08-98-0096Vihblcxgr GFR (CKD-EPI)58 mL/min/1.73m???Low>=60Wilson HealthComment on above:Estimated Glomerular Filtration Rate (eGFR) is calculated using the 2020 CKD-EPI creatinine equation. This equation utilizes serum creatinine, sex, and age as parameters. The creatinine assay has traceable calibration to isotope dilution-mass spectrometry. Refer to KDIGO guidelines for clinical inte rpretation. In patients with unstable renal function, e.g. those with acute kidney injury, the eGFRmay not accurately reflect actual GFR.Phosphorus Level2.4 mg/dLLow2.7-4.8Wilson HealthNucleated RBC Auto (Bld) [#/Vol]Ordered By: Gurpreet Pnag on 61-51-7280Wzmblmhhq RBC (Bld) [#/Vol] 10*3/uL<0.01Wilson HealthPhosphate SerPl-mCncon 09-19-2024 Phosphate [Mass/Vol]2.4 mg/dLLow2.7-4.8CA[facility] DaytonComtrinity [facility] on above:Order Comment: Specimen Type: BLOOD SPECIMENOrdering Facility: [facility] Address:[address] [place], [place] [address]Performed By: #### 80602-3, , 2776-03 ####[facility] LABIA [id number] VILLE [address] [place] Platelet mean volume Auto (Bld) [Entitic vol]Ordered By: Gurpreet Pang on 81-50-7311Oprxeygu mean volume (Bld) [Entitic vol]9.9 fL9.0-12.7FOhioHealth Nelsonville Health CenterPlatelets Auto (Bld) [#/Vol]Ordered By: Gurpreet Pang on 63-22-5338Jcycyldlz (Bld) [#/Vol]207 10*3/hP285-891KorqwrnstWilson HealthRBC Auto (Bld) [#/Vol]Ordered By: Gurpreet Pang on 00-87-9299XUJ (Bld) [#/Vol]4.29 10*6/uL4.20-6.00Western Reserve Hospitalerum or plasma anion gap determinationOrdered By: Gurpreet Pang on 09-53-0746Tjiuj gap [Moles/Vol]12 mmol/L8-15Wilson HealthBasic metabolic 2000 panelon 83-68-9845Cwbzq gap [Moles/Vol]11 mmol/LNormal8-15[facility] on above:Order Comment: Specimen Type: BLOOD SPECIMENOrdering Facility: [facility] Address:[address] [place], [place] [address]Performed By: #### 55024-2, 2777-1, 67984-3 ####[facility] LABCLIA [id number], [place] [address] [place] AMERICACalcium [Mass/Vol]9.4 mg/dLNormal8.5-10.2CGalion Hospital on above:Order Comment: Specimen Type: BLOOD SPECIMENOrdering Facility: [facility] Address:[address] [place], [place] [address]Performed By: #### 58955-9, 2777-1, 03572-6 ####[facility] LABCLIA [id number], [place] [address] [place] AMERICAChloride [Moles/Vol]102 mmol/CJsgqgf46-656XfivsjidnOhio State East Hospital on above:Order Comment: Specimen Type: BLOOD SPECIMENOrdering Facility: [facility] Address:[address] [place], [place] [address]Performed By: #### 57705-4, 2777-1, 11493-5 ####[facility] LABCLIA [id number] VIL[place] [id number] [place] AMERICACO2 [Moles/Vol]22 mmol/KGdllzs66-03NtwznyvffShelby Memorial Hospital Comment on above:Order Comment: Specimen Type: BLOOD SPECIMENOrdering Facility: [facility] Address:[address] [place], [place] [address] Performed By: #### 76086-7, 2777-1, 75190-0 ####[facility] LABIA [id number] VILLE [address] [place] AMERICACreatinine [Mass/Vol]1.32 mg/dLHigh0.73-1.22[facility] Comment on above:Order Comment: Specimen Type: BLOOD SPECIMENOrdering Facility: [facility] Address:[address] [place] [address] Performed By: #### 50393-0, 2777-1, 66474-9 ####[facility] [id number], [place] [address] [place] [facility] HOSPITALCreatinine and Glomerular filtration rate.predicted panel (S/P/Bld)54 mL/min/1.73m???Low>=60S[facility] HospitalComment on above:Order Comment: Specimen Type: BLOOD SPECIMENOrdering Facility: [facility] Address:[address] [place], [place] [address]Result Comment: Estimated Glomerular Filtration Rate (eGFR) is calculated using the 2020 CKD-EPI creatinine equation. This equation utilizes serum creatinine, sex, and age as parameters. The creatinine assay has traceable calibration to isotope dilution-mass spectrometry. Refer to KDIGO guidelines for clinical interpretation. In patients with unstable renal function, e.g. those with acute kidney injury, the eGFR may not accurately reflect actual GFR.Performed By: #### 93202-0, 2777-1, 89211-0 ####[facility] LABIA [id number] [address] [place] AMERICAGlucose [Mass/Vol]297 mg/dLHigh 74-99S[facility] HospitalComment on above:Order Comment: Specimen Type: BLOOD SPECIMENOrdering Facility: [facility] Address:[address] [place] [address]Majixb Comment: The [place] Diabetes Association (ADA) provides guidance for cutoff [...] unequivocal hyperglycemia, results should be confirmed by repeattesting. In a patient with classic symptoms of hyperglycemia or hyperglycemic crisis, random plasmaglucose results greater than or equal to 200 mg/dL meet the criteria for diagnosis of diabetes.Reference: Standards of Medical Care in Diabetes 2016, [place] Diabetes Association. Diabetes Care. 2016.39(Suppl 1).Performed By: #### 68345- 9, 2777-, 10376-4 ####[facility] LABCLIA [id number] VILLE [address] [place] AMERICAPotassium [Moles/Vol] 4.8 mmol/LNormal3.7-5.1CGalion Hospital on above:Order Comment: Specimen Type: BLOOD SPECIMENOrdering Facility: [facility] Address:[address] [place] [address]Ouhmfxmkr By: #### 08295-0, 2777, 11743-9 ####[facility] LABIA [id number] [place]IL[place] [address] [place] AMERICASodium [Moles/Vol]135 mmol/LLow 136-144[facility] on above:Order Comment: Specimen Type: BLOOD SPECIMENOrdering Facility: [facility] Address:[address] [place] [address]Eahkcdmxq By: #### 86417-8, 2777, 71179-3 ####[facility] LABCLIA [id number] [address] [place] AMERICAUrea nitrogen [Mass/Vol]20 mg/dL Normal9-24[facility] on above:Order Comment: Specimen Type: BLOOD SPECIMENOrdering Facility: [facility] Address:[address] [place], [place] [address]Performed By: #### 22344-1, 2777-1, 62743-2 ####[facility] LABCLIA [id number] [address] ST[address]ETCBC panel Auto (Bld)on 09-18-2024 Erythrocyte distribution width (RBC) [Ratio]13.0 %Gezgsk83.5-15.0[facility] on above:Order Comment: Specimen Type: BLOOD SPECIMENOrdering Facility: [facility] Address:[address] [place], [place] [address]Performed By: #### 70044-7 ####[facility] LABIA [id number] [address] STATES MANHATTAN PSYCHIATRIC CENTERHematocrit (Bld) [Volume fraction]38.7 %Low39.0-51.0[facility] on above:Order Comment: Specimen Type: BLOOD SPECIMENOrdering Facility: [facility] Address:[address] [place], [place] [address]Performed By: #### 18900-8 ####[facility] LABIA [id number] [address] [place] Hemoglobin (Bld) [Mass/Vol]12.8 g/dLLow13.0-17.0[facility] Comment on above:Order Comment: Specimen Type: BLOOD SPECIMENOrdering Facility: [facility] Address:[address] [place] [address] Performed By: #### 80917-8 ####[facility] LABIA [id number] [place] [address] [place] MCH (RBC) [Entitic mass]30.0 hoEnqlzn28.0-34.0[facility] on above:Order Comment: Specimen Type: BLOOD SPECIMENOrdering Facility: [facility] Address:[address] [place] [address] Performed By: #### 08417-9 ####[facility] LABIA [id number] [place] [address] [place] MCHC (RBC) [Mass/Vol]33.1 g/lPQvkpfu23.5-36.0[facility] on above:Order Comment: Specimen Type: BLOOD SPECIMENOrdering Facility: [facility] Address:[address] [place] [address] Performed By: #### 54262-0 ####[facility] LABIA [id number] [place] [address] [place] MCV (RBC) [Entitic vol]90.6 yPQvtsko29.0-100.0[facility] on above:Order Comment: Specimen Type: BLOOD SPECIMENOrdering Facility: [facility] Address:[address] [place] [address] Performed By: #### 81529-1 ####[facility] LABIA [id number] [place] [address] [place] Nucleated RBC (Bld) [#/Vol]10*3/uLNormal<0.01[facility] on above:Order Comment: Specimen Type: BLOOD SPECIMENOrdering Facility: [facility] Address:[address] [place] [address] Performed By: #### 69228-7 ####[facility] LABCLIA [id number] [place] [address] [place] Platelet mean volume (Bld) [Entitic vol]9.7 fLNormal9.0-12.7CGalion Hospital on above:Order Comment: Specimen Type: BLOOD SPECIMENOrdering Facility: [facility] Address:[address] [place], [place] [address]Performed By: #### 33470-7 ####[facility] LABCLIA [id number] [address] [address] [place] Platelets (Bld) [#/Vol]219 10*3/xENzotpw981-998AtxsgctwvOhio State East Hospital on above:Order Comment: Specimen Type: BLOOD SPECIMENOrdering Facility: [facility] Address:[address] [place] [address] Performed By: #### 75085-4 ####[facility] [id number] [place] [address] [place] RBC (Bld) [#/Vol]4.27 10*6/uLNormal4.20-6.00[facility] on above:Order Comment: Specimen Type: BLOOD SPECIMENOrdering Facility: [facility] Address:[address] [place], [place] [address]Performed By: #### 10310-9 ####[facility] [id number] [place] [address] [place] AMERICAWBC (Bld) [#/Vol]12.31 10*3/uLHigh3.70-11.00[facility] on above:Order Comment: Specimen Type: BLOOD SPECIMENOrdering Facility: [facility] Address:[address] [place], [place] [address]Performed By: #### 61122-8 ####[facility] [id number] [place] [address] [place] AMERICACNDSon 30-00-6297WJTGDdoziw Shelby Memorial HospitalErythrocyte distribution width Auto (RBC) [Ratio] Ordered By: Gurpreet Pang on 05-56-7923Jxlerjwsvhx distribution width (RBC) [Ratio]13.0 %11.5-15.0Wilson HealthHematocrit Auto (Bld) [Volume fraction]Ordered By: Gurpreet Pang on 84-28-5355Fxeikqsoyc (Bld) [Volume fraction]38.7 %Low39.0-51.0Wilson HealthHemoglobin [Mass/volume] in BloodOrdered By: Gurpreet Pang on 98-98-5762Vhaxyfbavl (Bld) [Mass/Vol]12.8 g/dLLow13.0-17.0Wilson HealthLaboratory - Chemistry and Chemistry - challengeOrdered By: Gurpreet Pang on 09-18-2024 Calcium [Mass/Vol]9.4 mg/dL8.5-10.2FOhioHealth Nelsonville Health CenterChloride [Moles/Vol]102 mmol/V85-618KktcrvltlWilson HealthCO2 [Moles/Vol]22 mmol/H21-44MctjxqquiWilson HealthCreatinine [Mass/Vol]1.32 mg/dLHigh 0.73-1.22Wilson HealthGlucose [Mass/Vol]297 mg/zYWfxo79-76 Wilson HealthComment on above:The [place] Diabetes Association (ADA) provides guidance for cutoff [...] hyperglycemia or hyperglycemic crisis, random plasma glucose resultsgreater than or equal to 200 mg/dL meet the criteria for diagnosis of diabetes.Reference: Standardsof Medical Care in Diabetes 2016, [place] Diabetes Association. Diabetes Care. 2016.39(Suppl 1). Magnesium [Mass/Vol]1.8 mg/dL1.7-2.3FOhioHealth Nelsonville Health CenterPotassium [Moles/Vol]4.8 mmol/L3.7-5.1FCleveland Clinic Akron General Lodi Hospitalodium [Moles/Vol] 135 mmol/WXbv694-604KotflwvobWilson HealthUrea nitrogen [Mass/Vol]20 mg/dL9-24Wilson HealthLeukocytes [#/volume] corrected for nucleated erythrocytes in Blood by Automated counOrdered By: Gurpreet Pang on 84-82-6547XIM corrected for nucl RBC Auto (Bld) [#/Vol]12.31 k/uLHigh3.70-11.00 Wilson HealthMC Auto (RBC) [Entitic mass]Ordered By: Gurpreet Pang on 47-68-9581KCY (RBC) [Entitic mass]30.0 pg26.0-34.0[facility] Auto (RBC) [Mass/Vol]Ordered By: Gurpreet Pang on 09-18-2024 MCHC (RBC) [Mass/Vol]33.1 g/dL30.5-36.0Wilson HealthMCV Auto (RBC) [Entitic vol]Ordered By: Gurpreet Pang on 89-02-6230RRZ (RBC) [Entitic vol]90.6 fL80.0-100.0Wilson HealthMagnesium SerPl-mCncon 46-68-2984Cdjfqbqkn [Mass/Vol]1.8 mg/dLNormal1.7-2.3[facility] Comment on above:Order Comment: Specimen Type: BLOOD SPECIMENOrdering Facility: [facility] Address:[address] [place] [address] Performed By: #### 33423-1, 2777-1, 97448-5 ####[facility] LABCLIA [id number] OF [facility] HOSPITALURSWORCESTER STATE [facility] PROGon 55-57-9379MJXKHYU PROGNKettering Health Hamilton NURSING PROGNormalShelby Memorial HospitalNURSING [facility] HospitalNo Panel InformationOrdered By: Gurpreet Pang on 45-06-1667Njcgvgpoj GFR (CKD-EPI)54 mL/min/1.73m???Low>=60Wilson HealthComment on above:Estimated Glomerular Filtration Rate (eGFR) is calculated using the 2020 CKD-EPI creatinine equation. This equation utilizes serum creatinine, sex, and age as parameters. The creatinine assay has traceable calibration to isotope dilution-mass spectrometry. Refer to KDIGO guidelines for clinical inte rpretation. In patients with unstable renal function, e.g. those with acute kidney injury, the eGFRmay not accurately reflect actual GFR.Phosphorus Level2.7 mg/dL2.7-4.8Wilson HealthNucleated RBC Auto (Bld) [#/Vol] Ordered By: Gurpreet Pang on 39-94-9377Onouldzoh RBC (Bld) [#/Vol]10*3/uL<0.01 Wilson HealthPhosphate SerPl-mCncon 89-53-1331Vujlcwxrc [Mass/Vol]2.7 mg/dLNormal2.7-4.8CGalion Hospital on above:Order Comment: Specimen Type: BLOOD SPECIMENOrdering Facility: [facility] Address:[address] [place], [place] [address]Performed By: #### 79997- 9, 2777-1, 27149-4 ####[facility] LABCLIA [id number] [address] [place] AMERICAPlatelet mean volume Auto (Bld) [Entitic vol]Ordered By: Gurpreet Pang on 36-28-7839Hafngkwt mean volume (Bld) [Entitic vol]9.7 fL9.0-12.7FOhioHealth Nelsonville Health Center Platelets Auto (Bld) [#/Vol]Ordered By: Gurpreet Pang on 07-44-4877Syhuhfcqs (Bld) [#/Vol]219 10*3/lX097-214PqntlgyzzWilson HealthRBC Auto (Bld) [#/Vol]Ordered By: Gurpreet Pang on 53-84-7580HZS (Bld) [#/Vol]4.27 10*6/uL 4.20-6.00Western Reserve Hospitalerum or plasma anion gap determinationOrdered By: Gurpreet Pang on 29-47-3835Tlxwj gap [Moles/Vol]11 mmol/L8-15Wilson HealthANES POSTPROC EVALon 30-02-1217SYEO POSTPROC EVALNormalCAccess Hospital DaytonANES PRE-OPon 73-34-3617LEDY PRE-OP NormalShelby Memorial HospitalBathe medical center metabolic 2000 panelon 22-55-4056Xouje gap [Moles/Vol]12 mmol/LNormal8-15[facility] on above:Order Comment: Specimen Type: BLOOD SPECIMENOrdering Facility: [facility] Address:[address] [place], [place] [address]Performed By: #### 02535- 9, 2777-1, 98383-6 ####[facility] LABCLIA [id number] [address] [address] [place] AMERICACalcium [Mass/Vol]9.2 mg/dLNormal8.5-10.2CGalion Hospital on above:Order Comment: Specimen Type: BLOOD SPECIMENOrdering Facility: [facility] Address:[address] [place], [place] [address]Performed By: #### 72543-8, 27771, 94192-0 ####[facility] LABCLIA [id number] [address] [place] AMERICAChloride [Moles/Vol]104 mmol/L Wmsofe80-309BwolazwpyOhio State East Hospital on above:Order Comment: Specimen Type: BLOOD SPECIMENOrdering Facility: [facility] Address:[address] [place], [place] [address]Performed By: #### 29931-3, 27709-21, 45751-8 ####[facility] LABCLIA [id number] VILLE [address] [place] AMERICACO2 [Moles/Vol]20 mmol/TYmc67-85 [facility] on above:Order Comment: Specimen Type: BLOOD SPECIMENOrdering Facility: [facility] Address:[address] [place], [place] [address]Performed By: #### 10114-0, 27709-21, 93190-4 ####[facility] LABCLIA [id number] [address] [place] AMERICACreatinine [Mass/Vol]1.11 mg/dLNormal0.73-1.22 [facility] on above:Order Comment: Specimen Type: BLOOD SPECIMENOrdering Facility: [facility] Address:[address] [place], [place] [address]Performed By: #### 33331-2, 2777-1, 54432-4 ####[facility] [id number] [address] [place] AMERICACreatinine and Glomerular filtration rate.predicted panel (S/P/Bld)66 mL/min/1.73m???Normal>=60[facility] on above:Order Comment: Specimen Type: BLOOD SPECIMENOrdering Facility: [facility] Address:[address] [place], [place] [address]Result Comment: Estimated Glomerular Filtration Rate (eGFR) is [...] accurately reflect actual GFR. Performed By: #### 61266-3, 2777-1, 36916-5 ####[facility] LABIA [id number] [address] [place] AMERICAGlucose [Mass/Vol]317 mg/vVPjpx57-52ZtwrjpynrOhio State East Hospital on above:Order Comment: Specimen Type: BLOOD SPECIMENOrdering Facility: [facility] Address:[address] [place], [place] [address]Result Comment: The [place] Diabetes Association (ADA) provides guidance for cutoff [...] unequivocal hyperglycemia, results should be confirmed by repeattesting. In a patient with classic symptoms of hyperglycemia or hyperglycemic crisis, random plasmaglucose results greater than or equal to 200 mg/dL meet the criteria for diagnosis of diabetes.Reference: Standards of Medical Care in Diabetes 2016, [place] Diabetes Association. Diabetes Care. 2016.39(Suppl 1).Performed By: #### 67704-1, 2777-1, 37496-8 ####[facility] LABCLIA [id number] [address] [place] AMERICAPotassium [Moles/Vol]4.1 mmol/LNormal3.7-5.1 [facility] on above:Order Comment: Specimen Type: BLOOD SPECIMENOrdering Facility: [facility] Address:[address] [place], [place] [address]Performed By: #### 59871-3, 2777-, 40519-7 ####[facility] LABIA [id number] VILLE [address] [place] [facility] PSYCH[facility]AT[facility] CENTERSodium [Moles/Vol]136 mmol/OOxtbls670-181TjzquwkvqShelby Memorial HospitalComment on above:Order Comment: Specimen Type: BLOOD SPECIMENOrdering Facility: [facility] Address:[address] [place], [place] [address]Performed By: #### 53475-7, 2777-, 01262-2 ####[facility] HOSPITALIA [id number] VILLE [address] [place] AMERICAUrea nitrogen [Mass/Vol]14 mg/dLNormal9-24 [facility] on above:Order Comment: Specimen Type: BLOOD SPECIMENOrdering Facility: [facility] Address:[address] [place], [place] [address]Performed By: #### 68970-0, 2777-, 94174-3 ####[facility] HOSPITALIA [id number] [address] [facility] HOSPITALCB panel Auto (Bld)on 42-64-9681Zyzklxoqkgw distribution width (RBC) [Ratio]12.9 %Emyrqm52.5-15.0[facility] Comment on above:Order Comment: Specimen Type: BLOOD SPECIMENOrdering Facility: [facility] Address:[address] [place] [address] Performed By: #### 70721-3 ####[facility] LABIA [id number] [place] [address] [place] Hematocrit (Bld) [Volume fraction]39.8 %Ejcato95.0-51.0[facility] on above:Order Comment: Specimen Type: BLOOD SPECIMENOrdering Facility: [facility] Address:[address] [place], [place] [address]Performed By: #### 72295-3 ####[facility] LABIA [id number] [place] [address] [place] Hemoglobin (Bld) [Mass/Vol]12.9 g/dLLow13.0-17.0[facility] Comment on above:Order Comment: Specimen Type: BLOOD SPECIMENOrdering Facility: [facility] Address:[address] [place] [address] Performed By: #### 18181-1 ####[facility] [id number] [place] [address] [place] MCH (RBC) [Entitic mass]29.6 ypVgpism72.0-34.0[facility] on above:Order Comment: Specimen Type: BLOOD SPECIMENOrdering Facility: [facility] Address:[address] [place] [address] Performed By: #### 98646-3 ####[facility] LABIA [id number] [place] [address] [place] MCHC (RBC) [Mass/Vol]32.4 g/jHSyvbtd42.5-36.0[facility] on above:Order Comment: Specimen Type: BLOOD SPECIMENOrdering Facility: [facility] Address:[address] [place] [address] Performed By: #### 43321-5 ####[facility] LABCEN[facility] [id number] [place] [address] [place] MCV (RBC) [Entitic vol]91.3 lORzgbxh88.0-100.0[facility] on above:Order Comment: Specimen Type: BLOOD SPECIMENOrdering Facility: [facility] Address:[address] [place] [address] Performed By: #### 49155-6 ####[facility] LABCLIA [id number] [place] [address] [place] Nucleated RBC (Bld) [#/Vol]10*3/uLNormal<0.01[facility] on above:Order Comment: Specimen Type: BLOOD SPECIMENOrdering Facility: [facility] Address:[address] [place] [address] Performed By: #### 80336-8 ####[facility] LABIA [id number] [place] [address] [place] Platelet mean volume (Bld) [Entitic vol]9.5 fLNormal9.0-12.7[facility] on above:Order Comment: Specimen Type: BLOOD SPECIMENOrdering Facility: [facility] Address:[address] [place], [place] [address]Performed By: #### 45021-5 ####[facility] LABIA [id number] [place] [address] [place] Platelets (Bld) [#/Vol]173 10*3/lZCsptfp995-224QaevnucmbOhio State [facility] Hospital on above:Order Comment: Specimen Type: BLOOD SPECIMENOrdering Facility: [facility] Address:[address] [place] [address] Performed By: #### 60471-7 ####[facility] LABIA [id number] [place] [address] [place] RBC (Bld) [#/Vol]4.36 10*6/uLNormal4.20-6.00[facility] on above:Order Comment: Specimen Type: BLOOD SPECIMENOrdering Facility: [facility] Address:[address] [place], [place] [address]Performed By: #### 62575-2 ####[facility] LABIA [id number] [place] [address] [place] [facility] HOSPITALWBC (Bld) [#/Vol]9.38 10*3/uLNormal3.70-11.00[facility] HospitalComment on above:Order Comment: Specimen Type: BLOOD SPECIMENOrdering Facility: [facility] Address:[address] [place], [place] [address]Performed By: #### [id number] ####[facility] LABIA [id number] [place] [address] [place] AMERICAErythrocyte distribution width Auto (RBC) [Ratio]Ordered By: Gurpreet Pang on [id number] distribution width (RBC) [Ratio]12.9 %11.5-15.0[facility] Hematocrit Auto (Bld) [Volume fraction]Ordered By: Gurpreet Pang on 09-17-2024 Hematocrit (Bld) [Volume fraction]39.8 %39.0-51.0[facility] HealthHemoglobin [Mass/volume] in BloodOrdered By: Gurpreet Pang on 09-17-2024 Hemoglobin (Bld) [Mass/Vol]12.9 g/dLLow13.0-17.0[facility] HealthLaboratory - Chemistry and Chemistry - challengeOrdered By: Gurpreet Pang on 71-45-1976Gfivnde [Mass/Vol]9.2 mg/dL8.5-10.2FOhioHealth Nelsonville Health CenterChloride [Moles/Vol]104 mmol/N47-375FhciyeheeWilson HealthCO2 [Moles/Vol]20 mmol/VUhm12-27SfzhimzkxWilson HealthCreatinine [Mass/Vol]1.11 mg/dL0.73-1.22Wilson HealthGlucose [Mass/Vol] 317 mg/eTVzvi45-81CnhzcuxsuWilson HealthComment on above:The [place] Diabetes Association (ADA) provides guidance for cutoff values for fasting glucose andrandom glucose. The ADA defines fasting as no [...] hyperglycemia or hyperglycemic crisis, random plasma glucose resultsgreater than or equal to 200 mg/dL meet the criteria for diagnosis of diabetes.Reference: Standardsof Medical Care in Diabetes 2016, [place] Diabetes Association. Diabetes Care. 2016.39(Suppl 1). Magnesium [Mass/Vol]1.6 mg/dLLow1.7-2.3FOhioHealth Nelsonville Health Center Potassium [Moles/Vol]4.1 mmol/L3.7-5.1FCleveland Clinic Akron General Lodi Hospitalodium [Moles/Vol]136 mmol/T351-016ZmolgrngwWilson HealthUrea nitrogen [Mass/Vol]14 mg/dL9-24Wilson HealthLeukocytes [#/volume] corrected for nucleated erythrocytes in Blood by Automated counOrdered By: Gurpreet Pang on 36-18-4139NCI corrected for nucl RBC Auto (Bld) [#/Vol]9.38 k/uL3.70-11.00[facility] Auto (RBC) [Entitic mass] Ordered By: Gurpreet Pang on 45-70-5042QER (RBC) [Entitic mass]29.6 pg26.0-34.0 [facility] SystemHC Auto (RBC) [Mass/Vol]Ordered By: Gurpreet Pang on 06-15-5754XMBB (RBC) [Mass/Vol]32.4 g/dL30.5-36.0[facility] Hospitals Health SystemV Auto (RBC) [Entitic vol]Ordered By: Gurpreet Pang on 13-86-0960ERE (RBC) [Entitic vol]91.3 fL80.0-100.0Wilson HealthMagnesium SerPl-mCncon 29-37-7259Qzkabefss [Mass/Vol]1.6 mg/dLLow1.7-2.3 [facility] on above:Order Comment: Specimen Type: BLOOD SPECIMENOrdering Facility: [facility] Address:[address] [place], [place] [address] [id number] By: #### 90055-1, 2777-1, 85275-7 ####[facility] LABCLIA [id number] [place] [address] [place] AMERICANo Panel InformationOrdered By: Gurpreet Pang on 02-72-7790Iwivivchm GFR (CKD-EPI)66 mL/min/1.73m???>=60Wilson HealthComment on above:Estimated Glomerular Filtration Rate (eGFR) is calculated using the 2020 CKD-EPI creatinine equation. This equation utilizes serum creatinine, sex, and age as parameters. The creatinine assay has traceable calibration to isotope dilution-mass spectrometry. Refer to KDIGO guidelines for clinical interpretation. In patients with unstable renal function, e.g. those with acute kidney injury, the eGFRmay not accurately reflect actual GFR. Phosphorus Level2.4 mg/dLLow2.7-4.8Wilson HealthNucleated RBC Auto (Bld) [#/Vol]Ordered By: Gurpreet Pang on 32-50-5913Mcinjfyqx RBC (Bld) [#/Vol]10*3/uL<0.01[facility] HealthOPERATIVE NOon 80-66-3707VIASMEZQJ NONormalShelby Memorial HospitalOPERATIVE NONormal Shelby Memorial HospitalPathology biopsy report Augie (Tiss)on 84-50-1517KU DISCLAIMERNormalCGalion Hospital on above:Order Comment: Specimen Type: TISSUE SPECIMENOrdering Facility: [facility] Address: [address] [place], [place] [address], [place] [address]Xgxauu Comment: Laboratory Developed Test (LDT) Disclaimer:Performance characteristics of immunohist ochemical, immunofluorescent, and chromogenic in-situ hybridization tests have been determined by the performing laboratory within [facility]'s Jagdish Owusu Pathology and Laboratory Medicine Department ([facility], [facility], [facility], [facility], [facility], [facility], or [facility]) in a manner consistent with CLIA requirements. One or more of these tests may not have been cleared or approved by the FDA. RT-PLM is regulated under CLIA as qualified to perform high-complexity testing. These tests are used for clinical purposes. These should not be regarded as investigational or for research. Positive and negative controls stain appropriately.Performed By: #### 42194-3 ####[facility] LABCLIA [id number] [address] [place] [address] [facility]OSPITALBLJELLICO MEDICAL C[facility] FOR ADDITIONAL BIOMARKERS/MOLECULAR STUDIES [address] on above:Order Comment: Specimen Type: TISSUE SPECIMENOrdering Facility: [facility] Address: [address] [place], [place] [address]Performed By: #### 46923-4 ####[facility] LABIA [id number] [address] [place] [address] [facility]ITALCASE [facility] on above:Order Comment: Specimen Type: TISSUE SPECIMENOrdering Facility: [facility] Address: [address] [place], [place] [address]Result Comment: Surgical Pathology Report Case: [id number] Provider: Gurpreet Pang MDCollected: 09/17/2024 10:21 AMOrdering Location: Admitting Received: 09/17/2024 11:44 AMPathologist: Chen Prieto MDSpecimens: A) - Parotid Gland, Left, Resection, left extended parotidectomy B) -Lymph Node (Specify Site in Comments), left level 2 lymph nodePerformed By: #### 25856-1 ####[facility] LABCLIA [id number] [address] [place] [address] [facility] HOSPITALCLINICAL [facility] Comment on above:Order Comment: Specimen Type: TISSUE SPECIMENOrdering Facility: [facility] Address: [address] [place] [address]Deuyxy Comment: 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]Performed By: #### 60207-3 ####[facility] LABCLIA [id number] [address] [place] [address] [place] AMERICADIAGNOSIS COMMENT NormalOhio State East Hospital on above:Order Comment: Specimen Type: TISSUE SPECIMENOrdering Facility: [facility] Address: [address] [place], [place] [address]Performed By: #### 41247-8 ####[facility] LABCLIA [id number] [address] [place] [address] [place] [facility]NT[facility]IO HOSPITALFINAL DIAGNOSISNormalCGalion Hospital on above:Order Comment: Specimen Type: TISSUE SPECIMENOrdering Facility: [facility] Address: [address] [place], [place] [address]Result Comment: A. 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 (See comment and synoptic report.)- One lymph node, negative for malignancy (0/1).B. Lymph node,left level 2, excision:- One lymph node, negative for malignancy (0/1). at 1323 EDTPerformed By: #### 12330-6 ####[facility] LABCLIA [id number] [address] [place] [address] [place] [facility] PERFORMING LABNoMercy Hospital on above: Order Comment: Specimen Type: TISSUE SPECIMENOrdering Facility: [facility] Address: [address] [place], [place] [address]Result Comment: Diagnostic interpretation performed at: [facility], [address] [place] [address], [address] [place] [address] CLIA# [id number] Director: COLTON Shresthaerformed By: #### 40971-1 ####[facility] LABCLIA [id number] [address] [place] [address] [facility] OF [facility] ONTARIO HOSPITALGROSS DESCRIPTIONNormThe [facility] on above:Order Comment: Specimen Type: TISSUE SPECIMENOrdering Facility: [facility] Address: [address] [place], [place] [address]Result Comment: A. Parotid Gland, Left, ResectionLabeled: ???Left extend parotidectomy???Received: In formalinOrientation: Short stitch anterior-superior, long stitch posterior auricular skinSpecimendimensions: 28.1 gm, 6.0 x 3.8 x 3.5 cm lobulated yellow-cardoso outer surface with attached skin ellipse measuring 4.5 x 2.5 cmInk code: Superior blue, inferior green, deep black, superficial yellowLesion size: 3.0 x 2.5 x 2.1 cmLesion description: Ill- defined, cardoso-white, focally hemorrhagic, firmDistance from margins:Superior- 2.8 cmInferior- 1.8 cmDeep- abutsSuperficial- 0.3 cmSkin- 0.5 cmOther Findings: Nodular area on skin measuring 1.5 x 1.0 cm that comes within 0.3 cm to the closest anteriorperipheral marginUninvolved tissue: Yellow-brown lobulated, unremarkableLymph node candidates: 0Gross photograph: YesCassette Code:A1 closest superior margin, perpendicularA2 closest inferior margin,perpendicularA3 mass with closest skin surfaceA4 mass with closest superficial marginA5 mass with closest deep marginA6 additional section of massA7 uninvolvedB. Lymph Node (Specify Site in Comments)Labeled: ???Left level 2 lymph node???Received: FreshNumber of tissue fragments: 1Specimen dimensions: 1.0 x 1.0 x 0.5 cmDescription: Cardoso-pink nodule consistent with lymph node candidateCassette Code:Totally submitted trisected in Z2Vmvlt examination performed at [facility], [address] [place] [address]NXG/HARPREET 09/17/24 1:21 PMPerformed By: #### 94658-9 ####[facility] LABCLIA [id number] [place] [address] [place] AMERICASYNOPTIC REPORTNormal Shelby Memorial HospitalComment on above:Order Comment: Specimen Type: TISSUE SPECIMENOrdering Facility: [facility] Address: [address] [place] [id number] Comment: MAJOR SALIVARY GLANDSMAJOR SALIVARY GLANDS: RESECTION - All Xfhjmkasv0no Edition - Protocol posted: 09/11/2022SPECIMEN Procedure: Parotidectomy, totalTUMOR Tumor Focality: Unifocal Tumor Site: Parotid gland, superficial lobe Tumor Laterality: Left Tumor Size: Greatest Dimension (Centimeters): 3.0 cm Additional Dimension (Centimeters): 2.5 cm Additional Dimension (Centimeters): 2.1 cm Histologic Type: Mucoepidermoid carcinoma Grade / Intrinsic Biologic Potential: Low Macroscopic Tumor Extent: No evidence of extraparenchymal extension Lymphatic and / or Vascular Invasion: Not identified Perineural Invasion: Not identifiedMARGINS Margin Status: All margins negative for carcinomaDistance from Invasive Tumor to Closest Margin: 2 mm Closest Margin(s) to Carcinoma: deepREGIONAL LYMPH NODES Regional Lymph Node Status: : All regional lymph nodes negative for tumor Number of LymphNodes Examined: 2pTNM CLASSIFICATION (AJCC 8th Edition) Reporting of pT, pN, and (when applicable) pM categories is based on information available to the pathologist at the time the report is issued.As per the AJCC (Chapter 1, 8th Ed.) it is the managing physician???s responsibility to establish the final pathologic stage based upon all pertinent information, including but potentially not limited to this pathology report. pT Category: pT2 pN Category: [id number] FINDINGS Additional Findings: None identifiedPerformed By: #### 72762-5 ####[facility] LABCLIA [id number] [place] [address] [place] AMERICAPhosphate SerPl-mCncon 39-32-2153Futxennae [Mass/Vol]2.4 mg/dLLow2.7-4.8ClevelCone Health Alamance RegionalComtrinity health [facility] on above:Order Comment: Specimen Type: BLOOD SPECIMENOrdering Facility: [facility] Address:[address] [place], [place] [address]Performed By: #### 15494- 9, 2777-1, 31309-8 ####[facility] LABCLIA [id number][place] [address] [place] AMERICAPlatelet mean volume Auto (Bld) [Entitic vol]Ordered By: Gurpreet Pang on 42-31-6068Uabnyarn mean volume (Bld) [Entitic vol]9.5 fL9.0-12.7FOhioHealth Nelsonville Health Center Platelets Auto (Bld) [#/Vol]Ordered By: Gurpreet Pang on 56-32-8805Gvdroeoad (Bld) [#/Vol]173 10*3/yI509-729DwjrmuskxWilson HealthRBC Auto (Bld) [#/Vol]Ordered By: Gurpreet Pang on 23-55-5163JLS (Bld) [#/Vol]4.36 10*6/uL 4.20-6.00Western Reserve Hospitalerum or plasma anion gap determinationOrdered By: Gurpreet Pang on 98-98-7223Azzoa gap [Moles/Vol]12 mmol/L8-15[facility] HealthCNPNon 12-03-0837BIBUZokqghOoirhfzek Clinic ClevelandBathe medical center metabolic 2000 panelon 07-92-8118Cnpti gap [Moles/Vol]12 mmol/LNormal8-15[facility] on above:Order Comment: Specimen Type: BLOOD SPECIMENOrdering Facility: [facility] Address:[address] [place], [place] [address]Performed By: #### 87058-8 ####[facility] LABIA [id number] [place] [address] [place] AMERICACalcium [Mass/Vol]9.6 mg/dLNormal 8.5-10.2CGalion Hospital on above:Order Comment: Specimen Type: BLOOD SPECIMENOrdering Facility: [facility] Address:[address] [place], [place] [address]Performed By: #### 17208-9 ####[facility] LABIA [id number] [address] [address] [place] AMERICAChloride [Moles/Vol]103 mmol/AHazhxw20-349JmudrgxpoOhio State East Hospital on above:Order Comment: Specimen Type: BLOOD SPECIMENOrdering Facility: [facility] Address:[address] [place], [place] [address]Performed By: #### 83079-3 ####[facility] LABIA [id number] [place] [address] [place] AMERICACO2 [Moles/Vol]21 mmol/WXgg43-24SxkdforycOhio State East Hospital on above:Order Comment: Specimen Type: BLOOD SPECIMENOrdering Facility: [facility] Address:[address] [place], [place] [address]Performed By: #### 10719-8 ####[facility] [id number] [place] [address] [place] AMERICACreatinine [Mass/Vol] 1.24 mg/dLHigh0.73-1.22[facility] on above:Order Comment: Specimen Type: BLOOD SPECIMENOrdering Facility: [facility] Address:[address] [place], [place] [address]Performed By: #### 39837-7 ####[facility] [id number] [place] [address] [place] AMERICACreatinine and Glomerular filtration rate.predicted panel (S/P/Bld)58 mL/min/1.73m???Low>=60[facility] on above:Order Comment: Specimen Type: BLOOD SPECIMENOrdering Facility: [facility] Address:[address] [place], [place] [address]Result Comment: Estimated Glomerular Filtration Rate (eGFR) is calculated using the 2020 CKD-EPI creatinine equation. This equation utilizes serum creatinine, sex, and age as parameters. The creatinine assay has traceable calibration to isotope dilution-mass spectrometry. Refer to KDIGO guidelines for clinical interpretation. In patients with unstable renal function, e.g. those with acute kidney injury, the eGFR may not accurately reflect actual GFR.Performed By: #### 75358-3 ####[facility] LABIA [id number] [place] [address] [place] AMERICAGlucose [Mass/Vol]162 mg/vQRnxb85-04StdgeigtbOhio State East Hospital on above:Order Comment: Specimen Type: BLOOD SPECIMENOrdering Facility: [facility] Address:[address] [place], [place] [address]Result Comment: The [place] Diabetes Association (ADA) provides guidance for cutoff [...] unequivocal hyperglycemia, results should be confirmed by repeattesting. In a patient with classic symptoms of hyperglycemia or hyperglycemic crisis, random plasmaglucose results greater than or equal to 200 mg/dL meet the criteria for diagnosis of diabetes.Reference: Standards of Medical Care in Diabetes 2016, [place] Diabetes Association. Diabetes Care. 2016.39(Suppl 1).Performed By: #### 01479-7 ####[facility] LABCLIA [id number] [place] [address] [place] AMERICAPotassium [Moles/Vol]4.2 mmol/LNormal3.7-5.1CAccess Hospital Dayton Comment on above:Order Comment: Specimen Type: BLOOD SPECIMENOrdering Facility: [facility] Address:[address] [place] [address] Performed By: #### 63057-5 ####[facility] LABIA [id number] [place] [address] [place] Sodium [Moles/Vol]136 mmol/BVzjsvp297-397WrbkqhpidOhio State East Hospital on above:Order Comment: Specimen Type: BLOOD SPECIMENOrdering Facility: [facility] Address:[address] [place], [place] [address]Performed By: #### 83889-7 ####[facility] LABIA [id number] [place] [address] [place] AMERICAUrea nitrogen [Mass/Vol]15 mg/dLNormal9-24[facility] Clinic ClevelandComment on above:Order Comment: Specimen Type: BLOOD SPECIMENOrdering Facility: [facility] Address:[address] [place], [place] [address]Performed By: #### 48240- 2 ####[facility] HOSPITALIA [id number] [address]CBC panel Auto (Bld)on 09-08-2024 Erythrocyte distribution width (RBC) [Ratio]12.9 %Mkorsj78.5-15.0Shelby Memorial HospitalComment on above:Order Comment: Specimen Type: BLOOD SPECIMENOrdering Facility: [facility] Address:[address] [place], [place] [address]Performed By: #### 82544-9 ####[facility] [id number] [address] STREETHematocrit (Bld) [Volume fraction]40.9 %Chjmoo00.0-51.0[facility] on above:Order Comment: Specimen Type: BLOOD SPECIMENOrdering Facility: [facility] Address:[address] [place], [place] [address]Performed By: #### 60255-6 ####[facility] HOSPITALIA [id number] [address] [place] Hemoglobin (Bld) [Mass/Vol]13.2 g/hSIuvyes63.0-17.0[facility] Comment on above:Order Comment: Specimen Type: BLOOD SPECIMENOrdering Facility: [facility] Address:[address] [place] [address] Performed By: #### 40295-0 ####[facility] HOSPITALIA [id number] [place] [address] [place] MCH (RBC) [Entitic mass]29.6 vlChrebr13.0-34.0[facility] on above:Order Comment: Specimen Type: BLOOD SPECIMENOrdering Facility: [facility] Address:[address] [place], [place] [address] Performed By: #### 23948-2 ####[facility] LABIA [id number] [place] [address] [place] MCHC (RBC) [Mass/Vol]32.3 g/oOUwwlce24.5-36.0[facility] on above:Order Comment: Specimen Type: BLOOD SPECIMENOrdering Facility: [facility] Address:[address] [place] [address] Performed By: #### 74104-1 ####[facility] LABIA [id number] [place] [address] [place] MCV (RBC) [Entitic vol]91.7 mPXchbqa84.0-100.0[facility] on above:Order Comment: Specimen Type: BLOOD SPECIMENOrdering Facility: [facility] Address:[address] [place] [address] Performed By: #### 71396-4 ####[facility] HOSPITALIA [id number] [place] [address] [place] Nucleated RBC (Bld) [#/Vol]10*3/uLNormal<0.01[facility] on above:Order Comment: Specimen Type: BLOOD SPECIMENOrdering Facility: [facility] Address:[address] [place] [address] Performed By: #### 41925-4 ####[facility] LABIA [id number] [place] [address] [place] Platelet mean volume (Bld) [Entitic vol]10.6 fLNormal9.0-12.7CGalion Hospital on above:Order Comment: Specimen Type: BLOOD SPECIMENOrdering Facility: [facility] Address:[address] [place], [place] [address]Performed By: #### 74815-3 ####[facility] LABIA [id number] [place] [address] [place] Platelets (Bld) [#/Vol]222 10*3/oIXbfsxv693-316XfroljjwaOhio State East Hospital on above:Order Comment: Specimen Type: BLOOD SPECIMENOrdering Facility: [facility] Address:[address] [place] [address] Performed By: #### 15085-5 ####[facility] LABIA [id number] [place] [address] [place] RBC (Bld) [#/Vol]4.46 10*6/uLNormal4.20-6.00[facility] on above:Order Comment: Specimen Type: BLOOD SPECIMENOrdering Facility: [facility] Address:[address] [place], [place] [address]Performed By: #### 85746-0 ####[facility] HOSPITALIA [id number] [address] STATES OF [facility] ONTARIO HOSPITALWBC (Bld) [#/Vol]6.50 10*3/uLNormal3.70-11.00[facility] on above:Order Comment: Specimen Type: BLOOD SPECIMENOrdering Facility: [facility] Address:[address] [place], [place] [address]Performed By: #### 95215-6 ####[facility] H[facility]PITALIA [id number] [place] [address] [place] AMERICACNCOon 12-13-8159VQPSEsppfr Text NormalShelby Memorial HospitalECG COMPLETEon 01-68-5682GLW COMPLETENormal Shelby Memorial HospitalErythrocyte distribution width Auto (RBC) [Ratio] Ordered By: Gurpreet Pang on 51-58-2414Tzshetpvswn distribution width (RBC) [Ratio]12.9 %11.5-15.0Wilson HealthHISTORY PHYSICALon 05-51-3494MDCKXYE PHYSICALNormalCAccess Hospital DaytonHematocrit Auto (Bld) [Volume fraction]Ordered By: Gurpreet Pang on 98-99-2539Ykpajdkllv (Bld) [Volume fraction]40.9 %39.0-51.0Wilson HealthHemoglobin [Mass/volume] in BloodOrdered By: Gurpreet Lorie on 28-58-7078Pfntitlibm (Bld) [Mass/Vol]13.2 g/dL13.0-17.0Wilson HealthLaboratory - Chemistry and Chemistry - challengeOrdered By: Gurpreet Pang on 09-08-2024 Calcium [Mass/Vol]9.6 mg/dL8.5-10.2FOhioHealth Nelsonville Health CenterChloride [Moles/Vol]103 mmol/A04-144EqkrrcdtfWilson HealthCO2 [Moles/Vol]21 mmol/TXbr37-99WgfyblhwlWilson HealthCreatinine [Mass/Vol]1.24 mg/dL High0.73-1.22Wilson HealthGlucose [Mass/Vol]162 mg/dLHigh 74-99Wilson HealthComment on above:The [place] Diabetes Association (ADA) provides guidance for cutoff [...] hyperglycemia or hyperglycemic crisis, random plasma glucose resultsgreater than or equal to 200 mg/dL meet the criteria for diagnosis of diabetes.Reference: Standardsof Medical Care in Diabetes 2016, [place] Diabetes Association. Diabetes Care. 2016.39(Suppl 1). Potassium [Moles/Vol]4.2 mmol/L3.7-5.1FCleveland Clinic Akron General Lodi Hospitalodium [Moles/Vol]136 mmol/N378-944EaiprxhnyWilson HealthUrea nitrogen [Mass/Vol]15 mg/dL9-24Wilson HealthLeukocytes [#/volume] corrected for nucleated erythrocytes in Blood by Automated counOrdered By: Gurpreet Pang on 21-19-8487MRA corrected for nucl RBC Auto (Bld) [#/Vol]6.50 k/uL3.70-11.00[facility] SystemH Auto (RBC) [Entitic mass] Ordered By: Gurpreet Pang on 17-49-0265QYK (RBC) [Entitic mass]29.6 pg26.0-34.0 Wilson HealthMCHC Auto (RBC) [Mass/Vol]Ordered By: Gurpreet Pang on 01-33-2789RXDN (RBC) [Mass/Vol]32.3 g/dL30.5-36.0[facility] Hospitals Health SystemV Auto (RBC) [Entitic vol]Ordered By: Gurpreet Pang on 16-49-7451NGJ (RBC) [Entitic vol]91.7 fL80.0-100.0Wilson HealthNo Panel InformationOrdered By: Gurpreet Pang on 29-49-0243Hgyhixyda GFR (CKD-EPI)58 mL/min/1.73m???Low>=60Wilson HealthComment on above:Estimated Glomerular Filtration Rate (eGFR) is calculated using the 2020 CKD-EPI creatinine equation. This equation utilizes serum creatinine, sex, and age as parameters. The creatinine assay has traceable calibration to isotope dilution-mass spectrometry. Refer to KDIGO guidelines for clinical inte rpretation. In patients with unstable renal function, e.g. those with acute kidney injury, the eGFRmay not accurately reflect actual GFR.Nucleated RBC Auto (Bld) [#/Vol]Ordered By: Gurpreet Pang on 94-37-5833Evqmjxhjo RBC (Bld) [#/Vol] 10*3/uL<0.01Wilson HealthPlatelet mean volume Auto (Bld) [Entitic vol]Ordered By: Gurpreet Pang on 31-05-5904Dtyqznqn mean volume (Bld) [Entitic vol]10.6 fL9.0-12.7FOhioHealth Nelsonville Health CenterPlatelets Auto (Bld) [#/Vol]Ordered By: Gurpreet Pang on 02-57-9141Iprkbjeys (Bld) [#/Vol]222 10*3/lE149-542DwyiebzgdWilson HealthRBC Auto (Bld) [#/Vol]Ordered By: Gurpreet Pang on 90-44-4822AVH (Bld) [#/Vol]4.46 10*6/uL4.20-6.00Western Reserve Hospitalerum or plasma anion gap determinationOrdered By: Gurpreet Lorie on 70-80-2349Tzgkq gap [Moles/Vol]12 mmol/L8-15Wilson HealthXR CHEST 2V FRONTAL/LATon 78-68-4479MG CHEST 2V FRONTAL/LATNormal Shelby Memorial HospitalXR Chest PA and Lateralon 05-42-8240MRYDFJCCEI: MILD BIBASILAR ATELECTASIS/INFILTRATE, NEW SINCE 05/22/2017. 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 Lungs and pleura: There is mild bibasilar atelectasis/infiltrate, new since 05/22/2017. Cardiomediastinal silhouette: Normal cardiomediastinal silhouette. Bones and soft tissues: Degenerative changes of the mid and lower thoracic spine. The patient is status post ORIF fixation of the visualized right proximal humerus. 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 Lungs and pleura: There is mild bibasilar atelectasis/infiltrate, new since 05/22/2017. Cardiomediastinal silhouette: Normal cardiomediastinal silhouette. Bones and soft tissues: Degenerative changes of the mid and lower thoracic spine. The patient is status post ORIF fixation of the visualized right proximal humerus. IMPRESSION IMPRESSION: MILD BIBASILAR ATELECTASIS/INFILTRATE, NEW SINCE 05/22/2017. First Grade Teacher: CONOR Transcribe Date/Time: Sep 08 2024 5:49P Dictated by : SILVIA COHN MD This examination was interpreted and the report reviewed and electronically signed by: SILVIA COHN MD on Sep 08 2024 5:50PM [facility] HospitalRad[facility] observation (narrative)[facility] CenterXR Chest PA and LateralOrdered By: Ccf Provider on 40-22-1288Alqsatqqb ClinicCNPNon 16-07-2578XJVIBsttkeDydnbgjzp Clinic ClevelandCNOVon 67-78-4126AGAOTmldno [facility] HospitalCNPNon 88-15-1261SZJXIvguodYqxpkvgce [facility] [place] ALBUMIN/CREATININE RATIO, URINEon 96-29-0491Zptvlqs DL <= 20 mg/L (U) [Mass/Vol] 191.5 mg/LNormalOhio State East Hospital on above:Order Comment: Specimen Type: URINE SPECIMENOrdering Facility: Dr Mishel Linares Office Address:[address] [place], [place] [address]Performed By: #### UACR ####[facility] LABCLIA [id number] [address] OF [facility] HOSPITALAlbumin/Creatinine (U) [Mass ratio] 127 mg/gHigh<30[facility] on above:Order Comment: Specimen Type: URINE SPECIMENOrdering Facility: Dr Mishel Linares Office Address:[address] [place], [place] [address]Result Comment: Adult Male and Female Nephrotic Criteria:<30 mg/g is considered normal to -548 mg/g is considered moderately increased>300 mg/g is considered severely increasedKDIGO. (2013). KDIGO 2012 Clinical Practice Guideline for the Evaluation and Management of Chronic Kidney Disease. Official Journal of the International Society of Nephrology, 3(1), 1-150.Performed By: #### UACR ####[facility] LABCLIA [id number] [place] [address] [place] OF AMERICACreatinine (U) [Mass/Vol]150.6 mg/fZRaswbf37.0-300.0[facility] on above:Order Comment: Specimen Type: URINE SPECIMENOrdering Facility: Dr Clark and Dr Linares Office Address:[address] [place], [place] [address]Performed By: #### UACR ####[facility] LABIA [id number] [place] [address] [place] AMERICAAlbumin [Mass/volume] in Serum or Plasmaon 34-81-8704Nojcfnc [Mass/Vol]3.49 g/dL3.43-5.41Wilson HealthB2 Microglob SerPl-mCncon 53-34-2571Ythu-2-Microglobulin [Mass/Vol]4.5 ug/mLHigh<3.1CGalion Hospital on above:Order Comment: Specimen Type: BLOOD SPECIMENOrdering Facility: [facility] Address:[address] [place], [place] [address]Result Comment: Beta-2 Microglobulin test is performed using the [employer] immunoturbidimetric method. Results obtained with different methods or kits cannot be used interchangeably.Performed By: #### 2885-2, 1951-03 ####[facility] LABCLIA [id number] [place] [address] [place] OF AMERICABasophils Auto (Bld) [#/Vol]on 96-28-1129Pzkoxmbrh (Bld) [#/Vol]10*3/uL<0.11Wilson HealthBasophils/100 WBC Auto (Bld) on 89-79-0538Qsjrtupnk/100 WBC (Bld)0.4 %Wilson HealthBlood manual differential comment interpretation narrativeon 37-01-1738Fidtym differential comment Augie (Bld) [Interp]AutoWilson HealthCBC W Auto Differential panel (Bld)on 64-06-4710Dcwuvadqq (Bld) [#/Vol]10*3/uLNormal <0.11CGalion Hospital on above:Order Comment: Specimen Type: BLOOD SPECIMENOrdering Facility: [facility] Address:[address] [place], [place] [address]Performed By: #### 91643-3 ####[facility] LABCLIA [id number] [place] [address] Basophils/100 WBC (Bld)0.4 %NormalOhio State East Hospital on above: Order Comment: Specimen Type: BLOOD SPECIMENOrdering Facility: [facility] Address:[address] [place], [place] [address]Performed By: #### 04675- 8 ####[facility] LABCLIA [id number] [place], [place] [address]Usxamjjtnyjg cell count method Nom (Bld)AutoNormal [facility] on above:Order Comment: Specimen Type: BLOOD SPECIMENOrdering Facility: [facility] Address:[address] [place], [place] [address]Performed By: #### 55393-6 ####[facility] LABIA [id number] [place], [place] [address]Qbgsoyyfnpd (Bld) [#/Vol]0.11 10*3/uLNormal<0.46[facility] on above: Order Comment: Specimen Type: BLOOD SPECIMENOrdering Facility: [facility] Address:[address] [place], [place] [address]Performed By: #### 57921- 8 ####[facility]ENTER[facility] LABCLIA [id number] [place], [place] [address]Qtnjgkeywjz/100 WBC (Bld)1.9 %NormalOhio State East Hospital on above:Order Comment: Specimen Type: BLOOD SPECIMENOrdering Facility: [facility] Address:[address] [place], [place] [address]Performed By: #### 12181-7 ####[facility] LABIA [id number] [place], [place] [address]Zickgbhqeyu distribution width (RBC) [Ratio]12.6 %Muwxkw17.5-15.0[facility] on above: Order Comment: Specimen Type: BLOOD SPECIMENOrdering Facility: [facility] Address:[address] [place], [place] [address]Performed By: #### 58686- 8 ####[facility] LABIA [id number] [place], [place] [address]Uqlnfkamex (Bld) [Volume fraction]39.4 %Rrbvsg88.0-51.0 [facility] on above:Order Comment: Specimen Type: BLOOD SPECIMENOrdering Facility: [facility] Address:[address] [place], [place] [address]Performed By: #### 50056-4 ####[facility] LABIA [id number] [place], [place] [address]Ymbspsqzyk (Bld) [Mass/Vol]13.2 g/tGAodlry61.0-17.0[facility] on above: Order Comment: Specimen Type: BLOOD SPECIMENOrdering Facility: [facility] Address:[address] [place], [place] [address]Performed By: #### 68432- 8 ####[facility] LABIA [id number] [place], [place] [address]Wrppkasc granulocytes (Bld) [#/Vol]10*3/uLNormal<0.10 [facility] on above:Order Comment: Specimen Type: BLOOD SPECIMENOrdering Facility: [facility] Address:[address] [place], [place] [address]Performed By: #### 29432-9 ####[facility] LABCLIA [id number] [place], [place] [address]Lixyoitn granulocytes/100 WBC (Bld)0.2 %[facility] on above: Order Comment: Specimen Type: BLOOD SPECIMENOrdering Facility: [facility] Address:[address] [place], [place] [address]Performed By: #### 79310- 8 ####[facility] LABCLIA [id number] [place], [place] [address]Wakcmpqdlog (Bld) [#/Vol]1.56 10*3/uLNormal1.00-4.00 [facility] on above:Order Comment: Specimen Type: BLOOD SPECIMENOrdering Facility: [facility] Address:[address] [place], [place] [address]Performed By: #### 62617-1 ####[facility] LABCLIA [id number] [place], [place] [address]Zdaytorjgxh/100 WBC (Bld)27.6 %NormalOhio State East Hospital on above:Order Comment: Specimen Type: BLOOD SPECIMENOrdering Facility: [facility] Address:[address] [place], [place] [address]Performed By: #### 02877-6 ####[facility] LABCLIA [id number] [place], [place] [address]GAT (RBC) [Entitic mass]30.6 beJuglhr85.0-34.0[facility] on above:Order Comment: Specimen Type: BLOOD SPECIMENOrdering Facility: [facility] Address:[address] [place], [place] [address]Performed By: #### 46683-2 ####[facility] LABCLIA [id number] [place], [place] [address]OGKM (RBC) [Mass/Vol]33.5 g/bSIuzxkj25.5-36.0[facility] on above: Order Comment: Specimen Type: BLOOD SPECIMENOrdering Facility: [facility] Address:[address] [place], [place] [address]Performed By: #### 82572- 8 ####[facility] LABCLIA [id number] [place], [place] [address]QRB (RBC) [Entitic vol]91.4 lNWsqxzv42.0-100.0[facility] on above:Order Comment: Specimen Type: BLOOD SPECIMENOrdering Facility: [facility] Address:[address] [place], [place] [address]Performed By: #### 94959-5 ####[facility] LABIA [id number] [place], [place] [address]Bmkptbddg (Bld) [#/Vol]0.64 10*3/uLNormal<0.87[facility] on above:Order Comment: Specimen Type: BLOOD SPECIMENOrdering Facility: [facility] Address:[address] [place], [place] [address]Performed By: #### 10151- 8 ####[facility] LABCLIA [id number] [place], [place] [address]Lhweezznq/100 WBC (Bld)11.3 %NormalOhio State East Hospital on above:Order Comment: Specimen Type: BLOOD SPECIMENOrdering Facility: [facility] Address:[address] [place], [place] [address]Performed By: #### 88071-2 ####[facility] LABIA [id number] [place], [place] [address]Tvplebomzzt (Bld) [#/Vol]3.32 10*3/uLNormal1.45-7.50[facility] on above:Order Comment: Specimen Type: BLOOD SPECIMENOrdering Facility: [facility] Address:[address] [place], [place] [address]Performed By: #### 44028-3 ####[facility] LABCLIA [id number] [place], [place] [address]Fjkrzqpslvk/100 WBC (Bld)58.6 %NormalOhio State East Hospital on above:Order Comment: Specimen Type: BLOOD SPECIMENOrdering Facility: [facility] Address:[address] [place], [place] [address]Performed By: #### 88438-7 ####[facility] LABCLIA [id number] [place], [place] [address]Wdrpxklbz RBC (Bld) [#/Vol] 10*3/uLNormal<0.01[facility] on above:Order Comment: Specimen Type: BLOOD SPECIMENOrdering Facility: [facility] Address:[address] [place], [place] [address]Performed By: #### 32794-9 ####[facility] LABCLIA [id number] [place], [place] [address]Kdrijwmpo RBC/100 WBC (Bld) [Ratio]0.0 /100 WBCNormal [facility] on above:Order Comment: Specimen Type: BLOOD SPECIMENOrdering Facility: [facility] Address:[address] [place], [place] [address]Performed By: #### 74203-4 ####[facility] LABCLIA [id number] [place], [place] [address]Waewxilh mean volume (Bld) [Entitic vol]9.6 fLNormal9.0-12.7CGalion Hospital on above:Order Comment: Specimen Type: BLOOD SPECIMENOrdering Facility: [facility] Address:[address] [place] [address] Performed By: #### 14739-6 ####[facility] LABCLIA [id number] [place], [place] [address]Rmouqnmqc (Bld) [#/Vol]201 10*3/xFKwkray419-797QmrnflfjiOhio State East Hospital on above:Order Comment: Specimen Type: BLOOD SPECIMENOrdering Facility: [facility] Address:[address] [place], [place] [address]Performed By: #### 80456-0 ####[facility] LABCLIA [id number] [place], [place] [address]NND (Bld) [#/Vol]4.31 10*6/uLNormal4.20-6.00[facility] on above:Order Comment: Specimen Type: BLOOD SPECIMENOrdering Facility: [facility] Address:[address] [place], [place] [address]Performed By: #### 45741-5 ####[facility] LABIA [id number] [place], [place] [address]ZYA (Bld) [#/Vol]5.66 10*3/uLNormal3.70-11.00[facility] on above: Order Comment: Specimen Type: BLOOD SPECIMENOrdering Facility: [facility] Address:[address] [place], [place] [address]Performed By: #### 76399- 8 ####[facility] LABIA [id number] [place], [place] [address]MXNCqx 00-74-8682UNKHUpkbzcXxhtijbye [facility] [place] CNOVSPon 11-62-7500LVGFBBJznieyVcoqqovhn Clinic ClevelandCalcium.ionized [Moles/Vol]on 31-68-1195Ajgvzjw.ionized (Bld) [Mass/Vol]1.27 mmol/LNormal 1.08-1.30[facility] on above:Order Comment: Specimen Type: BLOOD SPECIMENOrdering Facility: [facility] Address:[address] [place], [place] [address]Performed By: #### 1995-0 ####[facility] LABCLIA [id number] [facility] SYSTEMSZQHNMYLSYGZ44XJQNSTIZS, [place] [address] [place] AMERICACalcium.ionized adjusted to pH 7.4 (Bld) [Moles/Vol]1.24 mmol/LNormal1.08-1.30[facility] on above:Order Comment: Specimen Type: BLOOD SPECIMENOrdering Facility: [facility] Address:[address] [place], [place] [address]Performed By: #### 1994-0 ####[facility] LABCLIA [id number] [facility] [id number] [place], [place] [address] [place] OF AMERICAComprehensive metabolic 2000 panelon 47-10-5286Cgqkhgb [Mass/Vol]3.7 g/dLLow3.9-4.9CAccess [facility] Comment on above:Order Comment: Specimen Type: BLOOD SPECIMENOrdering Facility: [facility] Address:[address] [place] [address] Performed By: #### 2777-1, 13577-2, 3084-1, 2532-0 ####[facility] LABCLIA [id number] [place], [place] [address]DTQ [Catalytic activity/Vol]99 U/DOujbjf45-282GbahpitcdOhio State East Hospital on above:Order Comment: Specimen Type: BLOOD SPECIMENOrdering Facility: [facility] Address:[address] [place], [place] [address]Performed By: #### 2777-1, 37114-4, 3084-1, 2532-0 ####[facility] LABCLIA [id number] [place], [place] [address]KQF [Catalytic activity/Vol]13 U/RPkfjiw42-41ImhhcvyujOhio State East Hospital on above:Order Comment: Specimen Type: BLOOD SPECIMENOrdering Facility: [facility] Address:[address] [place], [place] [address]Performed By: #### 2777-1, 88822-5, 3084-1, 2532- 0 ####[facility] LABCLIA [id number] [place], [place] [address]Kxwfy gap [Moles/Vol]8 mmol/LNormal8-15[facility] on above:Order Comment: Specimen Type: BLOOD SPECIMENOrdering Facility: [facility] Address:[address] [place], [place] [address]Performed By: #### 2777-1, 69351-6, 3084-1, 2532-0 ####[facility] LABCLIA [id number] [place], [place] [address]HHZ [Catalytic activity/Vol]19 U/VHehcgk64-96GkydgxrueOhio State East Hospital on above:Order Comment: Specimen Type: BLOOD SPECIMENOrdering Facility: [facility] Address:[address] [place], [place] [address]Performed By: #### 2777-1, 89963-3, 3084-1, 2532-0 ####[facility] LABCLIA [id number] [place], [place] [address]Frtwrsdih [Mass/Vol]0.3 mg/dL Normal0.2-1.3CGalion Hospital on above:Order Comment: Specimen Type: BLOOD SPECIMENOrdering Facility: [facility] Address:[address] [place], [place] [address]Performed By: #### 2777-1, 63649-0, 3084-1, 2532- 0 ####[facility] LABCLIA [id number] [place], [place] [address]Pnzqbdg [Mass/Vol]9.5 mg/dLNormal8.5-10.2CGalion Hospital on above:Order Comment: Specimen Type: BLOOD SPECIMENOrdering Facility: [facility] Address:[address] [place], [place] [address]Performed By: #### 2777-1, 44965-6, 3084-1, 2532-0 ####[facility] LABCLIA [id number] [place], [place] [address]Lhaozexg [Moles/Vol]101 mmol/TRfgnbf63-711QoqbapnhfOhio State East Hospital on above: Order Comment: Specimen Type: BLOOD SPECIMENOrdering Facility: [facility] Address:[address] [place] [address]Depsmiakv By: #### 2777- 1, 07305-6, 3084-1, 2532-0 ####[facility] LABCLIA [id number] [place], [place] [address]YD8 [Moles/Vol]25 mmol/LNormal 22-30[facility] on above:Order Comment: Specimen Type: BLOOD SPECIMENOrdering Facility: [facility] Address:[address] [place], [place] [address]Performed By: #### 2777-1, 33714-0, 3084-1, 2532-0 ####[facility] LABCLIA [id number] [place], [place] [address]Fjljpxgfiq [Mass/Vol]1.15 mg/dLNormal0.73-1.22[facility] on above:Order Comment: Specimen Type: BLOOD SPECIMENOrdering Facility: [facility] Address:[address] [place], [place] [address]Performed By: #### 2777-1, 57577-9, 3084-1, 2532-0 ####[facility] LABCLIA [id number] [place], [place] [address]Txlhpxclxv and Glomerular filtration rate.predicted panel (S/P/Bld)63 mL/min/1.73m???Normal>=60[facility] on above:Order Comment: Specimen Type: BLOOD SPECIMENOrdering Facility: [facility] Address:[address] [place], [place] [address]Result Comment: Estimated Glomerular Filtration Rate (eGFR) is calculated using the 2020 CKD-EPI creatinine equation. This equation utilizes serum creatinine, sex, and age as parameters. The creatinine assay has traceable calibration to isotope dilution- mass spectrometry. Refer to KDIGO guidelines for clinical interpretation. In patients with unstable renal function, e.g. those with acute kidney injury, the eGFR may not accurately reflect actual GFR.Performed By: #### 2777-1, 31432-2, 3083-03, 0 ####[facility] LABCLIA [id number] [place], [place] [address]Lbcwacp [Mass/Vol]279 mg/gPJtxo82-63 [facility] on above:Order Comment: Specimen Type: BLOOD SPECIMENOrdering Facility: [facility] Address:[address] [place] [address]Wrhcpk Comment: The [place] Diabetes Association (ADA) provides guidance for cutoff [...] unequivocal hyperglycemia, results should be confirmed by repeattesting. In a patient with classic symptoms of hyperglycemia or hyperglycemic crisis, random plasmaglucose results greater than or equal to 200 mg/dL meet the criteria for diagnosis of diabetes.Reference: Standards of Medical Care in Diabetes 2016, [place] Diabetes Association. Diabetes Care. 2016.39(Suppl 1).Performed By: #### 2777-1, 59718-1, 3083-03, ####[facility] LABCLIA [id number] [place], [place] [address]Qyylmhwrv [Moles/Vol]4.2 mmol/L Normal3.7-5.1CGalion Hospital on above:Order Comment: Specimen Type: BLOOD SPECIMENOrdering Facility: [facility] Address:[address] [place], [place] [address]Mgnlvikhz By: #### 2777-1, 02088-7, 3083-03, 0 ####[facility] LABCLIA [id number] [place], [place] [address]Awbsnwb [Mass/Vol]6.6 g/dLNormal6.3-8.0[facility] on above:Order Comment: Specimen Type: BLOOD SPECIMENOrdering Facility: [facility] Address:[address] [place], [place] [address]Performed By: #### 2777-1, 35495-0, 3084-1, 2532-0 ####[facility] LABCLIA [id number] [place], [place] [address]Yrpgfu [Moles/Vol]134 mmol/TKhd097-323ColsieeiiOhio State East Hospital on above:Order Comment: Specimen Type: BLOOD SPECIMENOrdering Facility: [facility] Address:[address] [place], [place] [address]Performed By: #### 2777- 1, 21670-6, 3084-1, 2532-0 ####[facility] LABCLIA [id number] [place], [place] [address]Ardi nitrogen [Mass/Vol]15 mg/dL Normal9-24[facility] on above:Order Comment: Specimen Type: BLOOD SPECIMENOrdering Facility: [facility] Address:[address] [place], [place] [address]Performed By: #### 2777-1, 77204-5, 3084-1, 2532- 0 ####[facility] LABCLIA [id number] [place], [place] [address]Djoraukwlbk/100 WBC Auto (Bld)on 08-19-2024 Eosinophils/100 WBC (Bld)1.9 %Wilson HealthErythrocyte distribution width Auto (RBC) [Ratio]on 53-64-0640Gnvlzeoagms distribution width (RBC) [Ratio]12.6 %11.5-15.0Wilson HealthGlucose mean value [Mass/volume] in Blood Estimated from glycated hemoglobinon 30-65-1598Olurtbj glucose Estimated from glycated hemoglobin (Bld) [Mass/Vol]169 mg/dLWilson HealthComment on above:eAG: (Estimated average glucose) is a calculated value from HgbA1c and is life assurance representative of the average blood glucose level in the last 2-3 month period.HbA1c (Bld)on 50-26-2718Eeoszir glucose Estimated from glycated hemoglobin (Bld) [Mass/Vol]169 mg/dLNoMercy Hospital on above:Order Comment: Specimen Type: BLOOD SPECIMENOrdering Facility: Dr Clark and Dr Linares Office Address:[address] [place] [address] Comment: eAG: (Estimated average glucose) is a calculated value from HgbA1c and is life assurance representative of the average blood glucose level in the last 2-3 month period.Performed By: #### 67749-6 ####[facility] [id number] [address] STATES OF KCFLIWOQeV0l (Bld) [Mass fraction]7.5 %High4.3-5.6 [facility] on above:Order Comment: Specimen Type: BLOOD SPECIMENOrdering Facility: Dr Mishel Linares Office Address:[address] [place] [address] Comment: [place] Diabetes Association guidelines indicate that patients with HgbA1c in the range 5.7-6.4% are at increased risk for development of diabetes, and intervention by lifestyle modif ication may be beneficial. HgbA1c greater or equal to 6.5% is considered diagnostic of diabetes.Performed By: #### 75906-4 ####[facility] LABIA [id number] [place] [id number] [place] STATES OF AMERICAHematocrit Auto (Bld) [Volume fraction]on [id number] (Bld) [Volume fraction]39.4 %39.0-51.0[facility] Hemoglobin A1c percentageon [id number] (Bld) [Mass fraction]7.5 %High 4.3-5.6FOhioHealth Nelsonville Health CenterComment on above:[place] [employer] guidelines indicate that patients with HgbA1c in the range 5.7-6.4% are at increased risk for development of diabetes, and intervention by lifestyle modification may be beneficial. HgbA1c greater or equal to 6.5% is considered diagnostic of diabetes.Hemoglobin [Mass/volume] in Bloodon [id number] (Bld) [Mass/Vol]13.2 g/dL13.0-17.0[facility] IMMUNOFIXATION SCREEN, SERUMon [id number] (MPA)Atypical restricted bands are present in the IgG and kappa regions. Consistent with IgG kappa monoclonal gammopathy.NormalOhio State East Hospital on above:Order Comment: Specimen Type: BLOOD SPECIMENOrdering Facility: [facility] Address:[address] [place], [place] [address]Performed By: #### IFESC ####[facility] LABCLIA [id number] [place] [address] [place] AMERICAMPA RESULTM protein is present. AbnormalNo M protein is identified.[facility] on above: Order Comment: Specimen Type: BLOOD SPECIMENOrdering Facility: [facility] Address:[address] [place], [place] [address]Performed By: #### IFESC ####[facility] LABCLIA [id number] [place] [address] [place] AMERICASTAFF REVIEW (MPA)Reviewed by Kira Reyes MDNormalCGalion Hospital on above:Order Comment: Specimen Type: BLOOD SPECIMENOrdering Facility: [facility] Address:[address] [place], [place] [address]Performed By: #### IFESC ####[facility] LABCLIA [id number] [facility] L [address] [place] [address] [place] AMERICAIMMUNOGLOBULINS,IGG,IGA,IGMon 65-75-0549FeR [Mass/Vol]257 mg/aWMchwhj66-346LbwmohzxuOhio State East Hospital on above:Order Comment: Specimen Type: BLOOD SPECIMENOrdering Facility: [facility] Address:[address] [place] [address] Performed By: #### SERIMM ####[facility] LABCLIA [id number] [place] [address] [place] IgG [Mass/Vol]1463 mg/zULreyuz117-1246EmpelewxlShelby Memorial HospitalComtrinity health grand [facility] hospital on above:Order Comment: Specimen Type: BLOOD SPECIMENOrdering Facility: [facility] Address:[address] [place], [place] [address]Performed By: #### SERIMM ####[facility] LABCLIA [id number] [place] [address] [place] AMERICAIgM [Mass/Vol]303 mg/dL Jrkf18-240TqzdsdnvdShelby Memorial HospitalComtrinity health grand haven hospital on above:Order Comment: Specimen Type: BLOOD SPECIMENOrdering Facility: [facility] Address:[address] [place], [place] [address]Performed By: #### SERIMM ####[facility] LABCLIA [id number] [place] [address] [place] AMERICAIgA [Mass/volume] in Serum or Plasmaon 43-39-6717NwS [Mass/Vol]257 mg/wH55-821JfrssmkyvWilson HealthIgG [Mass/volume] in Serum or Plasmaon 60-38-9546MqN [Mass/Vol]1463 mg/eF077-3574LrmrjsyaeWilson HealthIgM [Mass/volume] in Serum or Plasmaon 10-86-5293WxC [Mass/Vol]303 mg/xFOwyn09-766FkqgzloreWilson HealthImmunoglobulin light chains.kappa.free [Mass/volume] in Serumon 80-99-1884Ekqjdeqyiwrzbh light chains.kappa.free (S) [Mass/Vol]182.3 mg/LHigh3.3-19.4FOhioHealth Nelsonville Health CenterComment on above:Rarely, increased serum free light chains levels may not be detected or accurately quantified due to prozone phenomenon or in high viscosity samples using this immunoturbidimetric assay. Correlation with other laboratory results and clinical findings is recommended. The [place] Free Light Chain was performed using the Binding Site Optilite immunoturbidimetric method. Result obtained with different assay methods or kits cannot be used interchangeably.Immunoglobulin light chains.kappa.free/Immunoglobulin light chains.lambda.free [Bowen 41-22-1268Zdjjhsqjmnlwrt light chains.kappa.free/Immunoglobulin light chains.lambda.free (S) [Mass ratio]3.45 High0.26-1.65Wilson HealthImmunoglobulin light chains.lambda.free [Mass/volume] in Serum or Plasmaon 26-24-9879Ipjhhtmruubfbx light chains.lambda.free [Mass/Vol]52.9 mg/LHigh5.7-26.3FOhioHealth Nelsonville Health CenterComment on above:Rarely, increased serum free light chains levels may not be detected or accurately quantified due to prozone phenomenon or in high viscosity samples using this immunoturbidimetric assay. Correlation with other laboratory results and clinical findings is recommended. The Lambda Free Light Chain was performed using the Binding Site Optilite immunoturbidimetric method. Result obtained with differentassay methods or kits cannot be used interchangeably.KAPPA/COTA,FREE,SERon 38-20-5491Dmwhxjzlghecve light chains.kappa.free (S) [Mass/Vol]182.3 mg/LHigh3.3-19.4CAccess Hospital Dayton Comment on above:Order Comment: Specimen Type: BLOOD SPECIMENOrdering Facility: [facility] Address:[address] [place], [place] [address]Result Comment: Rarely, increased serum free light chains levels may not be detected or accurately quantified due to prozone phenomenon or in high viscosity samples using this immunoturbidimetric assay. Correlation with other laboratory results and clinical findings is recommended.The [place] Free Light Chain was performed using the Binding Site Optilite immunoturbidimetric method. Result obtained with different assay methods or kits cannot be used interchangeably.Performed By: #### KLFRS ####[facility] LABCLIA [id number] [facility] [id number] [place] [address] [place] [facility] HOSPITALImmunoglobulin light chains.kappa/Immunoglobulin light chains.lambda (S) [Mass ratio]3.45High 0.26-1.65Shelby Memorial HospitalComment on above:Order Comment: Specimen Type: BLOOD SPECIMENOrdering Facility: [facility] Address:[address] [place], [place] [address]Performed By: #### KLFRS ####[facility] LABCLIA [id number] [place] [address] [place] AMERICAImmunoglobulin light chains.lambda.free [Mass/Vol]52.9 mg/LHigh5.7-26.3CGalion Hospital on above:Order Comment: Specimen Type: BLOOD SPECIMENOrdering Facility: [facility] Address:[address] [place], [place] [address]Result Comment: Rarely, increased serum free light chains levels may not be detected or accurately quantified due to prozone phenomenon or in high viscosity samples using this immunoturbidimetric assay. Correlation with other laboratory results and clinical findings is recommended.The Lambda Free Light Chain was performed using the Binding Site Optilite immunoturbidimetric method. Result obtainedwith different assay methods or kits cannot be used interchangeably.Performed By: #### KLFRS ####[facility] LABCLIA [id number] [place] [address] [place] AMERICALDH SerPl-cCncon 20-90-7871CUZ [Catalytic activity/Vol]140 U/INuyyds802-035CjxhiaaqmOhio State East Hospital on above:Order Comment: Specimen Type: BLOOD SPECIMENOrdering Facility: [facility] Address:[address] [place], [place] [address]Result Comment: Hemolysis present. The origin of the hemolysis, in vitro versus an in vivo hemolytic process, cannot be distinguished via this assay alone. In vitro hemolysis may lead to non-physiological (spurious) elevation in lactate dehydrogenase (LDH) results. Theresult should be interpreted in context of the clinical setting and other test results. Suggest reorder as clinically indicated.Performed By: #### 2777-1, 23321-9, 3084-1, 2532-0 ####[facility] LABCLIA [id number] [place], [place] [address]Ecdtzehgpv - Chemistry and Chemistry - challengeon 49-45-1208Pabqupc [Mass/Vol]3.7 g/dLLow3.9-4.9Wilson HealthALP [Catalytic activity/Vol]99 U/P93-455VpbuemvrpWilson HealthALT [Catalytic activity/Vol]13 U/A16-87MqmikmejiWilson HealthAST [Catalytic activity/Vol]19 U/Y94-88TtlogkwiqWilson HealthBilirubin [Mass/Vol]0.3 mg/dL0.2-1.3FOhioHealth Nelsonville Health CenterCalcium [Mass/Vol]9.5 mg/dL 8.5-10.2FOhioHealth Nelsonville Health CenterChloride [Moles/Vol]101 mmol/L98-107 Wilson HealthCO2 [Moles/Vol]25 mmol/I75-32UztsypxmhWilson HealthCreatinine [Mass/Vol]1.15 mg/dL0.73-1.22Wilson HealthGlucose [Mass/Vol]279 mg/kPWakv88-95NtylghiyeWilson HealthComment on above:The [place] Diabetes Association (ADA) provides guidance for cutoff values for fasting glucose andrandom glucose. The ADA defines fasting as no [...] hyperglycemia or hyperglycemic crisis, random plasma glucose resultsgreater than or equal to 200 mg/dL meet the criteria for diagnosis of diabetes.Reference: Standardsof Medical Care in Diabetes 2016, [place] Diabetes Association. Diabetes Care. 2016.39(Suppl 1).LDH [Catalytic activity/Vol]140 U/S153-645HyyddugnsWilson HealthComment on above:Hemolysis present. The origin of the hemolysis, in vitro versus an in vivo hemolytic process, cannot be distinguished via this assay alone. In vitro hemolysis may lead to non-physiological (spurious)elevation in lactate dehydrogenase (LDH) results. The result should be interpreted in context of the clinical setting and other test results. Suggest reorder as clinically indicated.Potassium [Moles/Vol]4.2 mmol/L3.7-5.1FOhioHealth Nelsonville Health CenterProtein [Mass/Vol]0.61 g/dLHigh <=0.00Western Reserve Hospitalodium [Moles/Vol]134 mmol/NHvn255-463 Wilson HealthUrate [Mass/Vol]4.6 mg/dL4.0-8.1FOhioHealth Nelsonville Health CenterUrea nitrogen [Mass/Vol]15 mg/dL9-24Wilson HealthLaboratory - Hematology and Cell countson 22-37-0870Dnvluhmckdd (Bld) [#/Vol]0.11 10*3/uL<0.46Wilson HealthImmature granulocytes/100 WBC (Bld)0.2 %Wilson HealthLeukocytes [#/volume] corrected for nucleated erythrocytes in Blood by Automated counon 37-49-9267UDY corrected for nucl RBC Auto (Bld) [#/Vol]5.66 k/uL3.70-11.00 Wilson HealthLymphocytes Auto (Bld) [#/Vol]on 08-19-2024 Lymphocytes (Bld) [#/Vol]1.56 10*3/uL1.00-4.00[facility] Lymphocytes/100 WBC Auto (Bld)on 82-70-3496Odtckzwdnkn/100 WBC (Bld)27.6 % [facility] SystemH Auto (RBC) [Entitic mass]on 87-45-9142FHJ (RBC) [Entitic mass]30.6 pg26.0-34.0Wilson HealthMCHC Auto (RBC) [Mass/Vol]on 26-58-7352HZVC (RBC) [Mass/Vol]33.5 g/dL30.5-36.0Wilson HealthMCV Auto (RBC) [Entitic vol]on 63-27-1401ALT (RBC) [Entitic vol]91.4 fL80.0-100.0Wilson HealthMonocytes Auto (Bld) [#/Vol]on 69-30-5675Acodtaquk (Bld) [#/Vol]0.64 10*3/uL<0.87Wilson HealthMonocytes/100 WBC Auto (Bld)on 99-32-8185Sbgctmtuq/100 WBC (Bld)11.3 %Wilson HealthNeutrophils Auto (Bld) [#/Vol]on 85-31-8101Wclwfyqhhaf (Bld) [#/Vol]3.32 10*3/uL1.45-7.50Wilson HealthNeutrophils/100 WBC Auto (Bld)on 96-76-4779Yitkautiotg/100 WBC (Bld)58.6 %Wilson HealthNo Panel Informationon 08-19-2024 Urine Albumin/Creatinine Boetg301 mg/gHigh<30[facility] Comment on above:Adult Male and Female Nephrotic Criteria:<30 mg/g is considered normal to mildly ikhdsatyf94-886dj/g is considered moderately increased>300 mg/g is considered severely increasedKDIGO. (2013). KDIGO 2012 Clinical Practice Guideline for the Evaluation and Management of Chronic Kidney Disease. Official Journal of the International Society of Nephrology, 3(1), 1-150.Urine Microalbumin mg/dl191.5 mg/LFOhioHealth Nelsonville Health CenterUrine Random Ynhsvvannv066.6 mg/dL20.0-300.0Wilson HealthEstimated GFR (CKD-EPI)63 mL/min/1.73m???>=60Wilson HealthComment on above:Estimated Glomerular Filtration Rate (eGFR) is calculated using the 2020 CKD-EPI creatinine equation. This equation utilizes serum creatinine, sex, and age as parameters. The creatinine assay has traceable calibration to isotope dilution-mass spectrometry. Refer to KDIGO guidelines for clinical inte rpretation. In patients with unstable renal function, e.g. those with acute kidney injury, the eGFRmay not accurately reflect actual GFR.Immature Granulocyte # (Auto)<0.03 k/uL<0.10[facility] Immunofixation InterpretationWilson HealthIonized Calcium (pH Adjusted)1.24 mmol/L1.08-1.30Wilson HealthLeuk/Lymph Sign Pathologist (Misc)Reviewed by Kira Reyes MDWilson HealthMiscellaneous Test 6Gamma Fraction 1FOhioHealth Nelsonville Health Center Miscellaneous Test CommentReviewed by Flavio Garcia MD, Ph.D ([id number])Wilson HealthPhosphorus Level3.0 mg/dL2.7-4.8Wilson HealthProtein Electrophoresis InterpretWilson Health Protein Electrophoresis NoteAn M protein is identified on protein electrophoresis.AbnormalNo definitive M protein is identified on protein electrophoresis.Western Reserve Hospitalerum ImmunofixationM protein is present.AbnormalNo M protein is identified.[facility] Nucleated RBC Auto (Bld) [#/Vol]on 24-02-3659Xnjbnotxo RBC (Bld) [#/Vol]10*3/uL <0.01Wilson HealthNucleated erythrocytes [Presence] in Blood by Automated counton 47-21-4148Yebuseoys RBC Auto Ql (Bld)0.0 /100{WBC} Wilson HealthPROTEIN ELECTROPHORESIS SERUM (P)on 08-19-2024 Albumin [Mass/Vol]3.49 g/dLNormal3.43-5.41[facility] on above:Order Comment: Specimen Type: BLOOD SPECIMENOrdering Facility: [facility] Address:[address] [place], [place] [address]Performed By: #### [id number] ####[facility] LABIA [id number] [address] STATES OF AMERICAAlpha 1 globulin Elph [Mass/Vol]0.27 g/dLNormal0.18-0.43[facility] on above: Order Comment: Specimen Type: BLOOD SPECIMENOrdering Facility: [facility] Address:[address] [place], [place] [address]Performed By: #### [id number] ####[facility] LABCLIA [id number] [address] STATES OF AMERICAAlpha 2 globulin Elph [Mass/Vol]0.82 g/dLNormal0.42-0.98[facility] on above: Order Comment: Specimen Type: BLOOD SPECIMENOrdering Facility: [facility] Address:[address] [place], [place] [address]Performed By: #### [id number] ####[facility] LABCLIA [id number] [place] [address] [place] AMERICABeta globulin Elph [Mass/Vol]0.82 g/dLNormal0.61-1.17[facility] on above: Order Comment: Specimen Type: BLOOD SPECIMENOrdering Facility: [facility] Address:[address] [place], [place] [address]Performed By: #### [id number] ####[facility] LABCLIA [id number] [place] [address] [place] AMERICAGamma globulin Elph [Mass/Vol]1.40 g/dLNormal0.53-1.51[facility] on above: Order Comment: Specimen Type: BLOOD SPECIMENOrdering Facility: [facility] Address:[address] [place], [place] [address]Performed By: #### [id number] ####[facility] LABCLIA [id number] [address] STATES AMERICAINTERPRETATION COMMENT FOR PROTEIN ELECTROPHORESISSee separate immunofixation report for characterization of monoclonal gammopathy.NormalShelby Memorial Hospital Comment on above:Order Comment: Specimen Type: BLOOD SPECIMENOrdering Facility: [facility] Address:[address] [place] [address] Performed By: #### [id number] ####[facility] LABCLIA [id number] [place] [address] [place] M-PROTEIN LOCATIONGamma Fraction 1NormalOhio State East Hospital on above:Order Comment: Specimen Type: BLOOD SPECIMENOrdering Facility: [facility] Address:[address] [place], [place] [address]Performed By: #### [id number] ####[facility] LABCLIA [id number] [place] [address] [place] AMERICAProtein Fractions [Interp]An M protein is identified on protein electrophoresis.AbnormalNo definitive M protein is identified on protein electrophoresis.[facility] on above:Order Comment: Specimen Type: BLOOD SPECIMENOrdering Facility: [facility] Address:[address] [place], [place] [address]Performed By: #### [id number] ####[facility] LABCLIA [id number] [place] [id number] [place] Protein.monoclonal Elph [Mass/Vol]0.61 g/dLHigh<=0.00[facility] Comment on above:Order Comment: Specimen Type: BLOOD SPECIMENOrdering Facility: [facility] Address:[address] [place] [address] Performed By: #### [id number] ####[facility] LABCLIA [id number] [address] [place] SPE STAFF REVIEWReviewed by Flavio Garcia MD, Ph.D ([id number])NormalShelby Memorial HospitalComment on above:Order Comment: Specimen Type: BLOOD SPECIMENOrdering Facility: [facility] Address:[address] [place], [place] [address]Performed By: #### [id number] ####[facility] LABIA [id number] [place] [id number] [place] AMERICAPhosphate SerPl-mCncon 25-57-7198Zxihxreeq [Mass/Vol]3.0 mg/dLNormal 2.7-4.8CAccess Hospital DaytonComment on above:Order Comment: Specimen Type: BLOOD SPECIMENOrdering Facility: [facility] Address:[address] [place], [place] [address]Performed By: #### 2777-1, 01337-5, 3084-1, 2532-0 ####[facility] LABCLIA [id number] [place], [place] [address]Mkgmbolx mean volume Auto (Bld) [Entitic vol]on 82-83-4524Cwtaztjo mean volume (Bld) [Entitic vol]9.6 fL9.0-12.7FOhioHealth Nelsonville Health CenterPlatelets Auto (Bld) [#/Vol]on 73-17-6897Wgoznyzrw (Bld) [#/Vol]201 10*3/cL184-978AhpmyguedWilson HealthProt SerPl-mCncon 54-98-0224Norbmkz [Mass/Vol]6.8 g/dLNormal6.3-8.0[facility] Comment on above:Order Comment: Specimen Type: BLOOD SPECIMENOrdering Facility: [facility] Address:[address] [place] [address] Performed By: #### 2885-2, 1951-03 ####[facility] LABCLIA [id number] [place] [address] [place] Protein [Mass/volume] in Serum or Plasmaon 56-81-0397Xhsgjrm [Mass/Vol]6.8 g/dL 6.3-8.0Wilson HealthRBC Auto (Bld) [#/Vol]on 97-51-2978XUD (Bld) [#/Vol]4.31 10*6/uL4.20-6.00Western Reserve Hospitalerum ionized calcium measurement using ion specific electrode (mass/volume)on 08-19-2024 Calcium.ionized ISE [Mass/Vol]1.27 mmol/L1.08-1.30Western Reserve Hospitalerum or plasma alpha 1 globulin measurement by electrophoresis (mass/volume)on 17-31-7964Mmhav 1 globulin Elph [Mass/Vol]0.27 g/dL0.18-0.43 [facility] Hospitalerum or plasma alpha 2 globulin measurement by electrophoresis (mass/volume)on 17-60-0874Qqymy 2 globulin Elph [Mass/Vol]0.82 g/dL0.42-0.98Western Reserve Hospitalerum or plasma anion gap determinationon 97-73-0542Xuqff gap [Moles/Vol]8 mmol/L8-15Western Reserve Hospitalerum or plasma beta globulin measurement by electrophoresis (mass/volume)on 29-63-3878Efqg globulin Elph [Mass/Vol]0.82 g/dL0.61-1.17 [facility] Hospitalerum or plasma sqvo-6-tqjhylqunkyhz measurement (mass/volume)on 11-91-1574Couv-2-Microglobulin [Mass/Vol]4.5 ug/mL High<3.1FOhioHealth Nelsonville Health CenterComment on above:Beta-2 Microglobulin test is performed using the [employer] immunoturbidimetric method. Resul ts obtained with different methods or kits cannot be used interchangeably.Serum or plasma gamma globulin measurement by electrophoresis (mass/volume)on 20-38-7278Ewgyl globulin Elph [Mass/Vol]1.40 g/dL0.53-1.51Wilson HealthUrate SerPl-mCncon 57-18-4431Yzbts [Mass/Vol]4.6 mg/dLNormal 4.0-8.1CAccess Hospital DaytonComment on above:Order Comment: Specimen Type: BLOOD SPECIMENOrdering Facility: [facility] Address:[address] [place], [place] [address]Hzzftzlsz By: #### 2777-1, 22593-7, 3084-1, 2532-0 ####[facility] LABCLIA [id number] [place], [place] [address]UFHBez 31-92-7003UUNMHarosaWzaltkozk Clinic ClevelandCNPN on 30-77-2735RDBVGckvxtNdnvcrbne Clinic ClevelandCNPNon 18-88-9855RGBRKuckna Shelby Memorial HospitalCNPNon 71-69-0290LRFQUktacoJqfialobc Clinic [place] BRIEF OP NOTon 98-18-3260KQLSU OP NOTNormalCAccess Hospital DaytonCNDSon 12-33-4278GVVMRhbqdyHwenlkhbb Clinic ClevelandNURSING PROGon 77-86-7351ZIVPLNC PROGNormalShelby Memorial HospitalPT EDon 53-18-1081OQ EDNormUniversity Hospitals Beachwood Medical CenterPathology biopsy report Augie (Tiss)on 62-80-6924QN DISCLAIMER [facility] Medical CenterComtrinity health grand [facility] hospital on above:Order Comment: Specimen Type: TISSUE SPECIMENOrdering Facility: [facility] Address: [address] [place], [place] [address]Pnwgac Comment: Laboratory Developed Test (LDT) Disclaimer:Performance characteristics of immunohistochemical, immunofluorescent, and chromogenic in-situ hybridization tests have been determined by the performing laboratory within [facility]'s Jagdish Owusu Pathology and Laboratory Medicine Department ([facility], [facility], [facility], [facility], [facility], [facility], or [facility]) in a manner consistent with CLIA requirements. One or more of these tests may not have been cleared or approved by the FDA. [employer]-[facility] is regulated under CLIA as qualified to perform high-complexity testing. These tests are used for clinical purposes. These should not be regarded as investigational or for research. Positive and negative controls stain appropriately.Performed By: #### 60260-3 ####[facility] LABIA [id number] [place] [id number] [place] STATES OF AMERICACASE REPORTNoCleveland Clinic Akron General Lodi HospitalComment on above:Order Comment: Specimen Type: TISSUE SPECIMENOrdering Facility: [facility] Address: [address] [place], [place] [address]Result Comment: Surgical Pathology Report Case: [id number] Provider: Martha Gandara MD, MD Collected: 07/21/2024 11:22 AMOrdering Location: [place] [address] Received: 07/21/2024 06:18 PMPathologist: Marielos Melvin MDSpecimen: Parotid Gland, Left, Biopsy, h/o multiple myelomaPerformed By: #### 12277-6 ####[facility] [id number] [place] [id number] [facility] HOSPITALCLINICAL HISTORYhistory of multiple myeloma with large left parotid massNoCleveland Clinic [facility] Comment on above:Order Comment: Specimen Type: TISSUE SPECIMENOrdering Facility: [facility] Address: [address] [place] [address] Performed By: #### 19947-4 ####[facility] HOSPITALIA [id number] [place] [id number] [facility] DIAGNOSIS COMMENTNo high grade carcinoma features are identified on the biopsy, although grading is best evaluated on the resection specimen. This case was reviewed in intradepartmental consultation with Dr. Lionel Galaviz, who agrees with the diagnosis.NormalOhio State East Hospital on above:Order Comment: Specimen Type: TISSUE SPECIMENOrdering Facility: [facility] Address: [address] [place], [place] [address]Performed By: #### 97298-7 ####[facility] LABCLIA [id number] [address] [address] [facility] HOSPITALFINAL DIAGNOSISNormal [facility] on above:Order Comment: Specimen Type: TISSUE SPECIMENOrdering Facility: [facility] Address: [address] [place], [place] [address]Result Comment: A. Left parotid, mass, needle biopsy:- Mucoepidermoid carcinoma, see comment. at 1142 EDTPerformed By: #### 03896-5 ####[facility] LABCLIA [id number] [address] [address] [facility] LABNoCleveland Clinic [facility] Comment on above:Order Comment: Specimen Type: TISSUE SPECIMENOrdering Facility: [facility] Address: [address] [place], [place] [address]Result Comment: Diagnostic interpretation performed at: [facility], [address] [place] [address], [address] [address] CLIA# [id number] Director: COLTON Shresthaerformed By: #### 11330-8 ####[facility] LABCLIA [id number] [address] [address] [facility] DESCRIPTIONBlanchard [facility] on above:Order Comment: Specimen Type: TISSUE SPECIMENOrdering Facility: [facility] Address: [address] [place], [place] [address]Result Comment: A. Parotid Gland, Left, BiopsyReceived in formalin are multiple segments of cylindrical tissue aggregating to 2.8 x 0.2 x 0.1 cm, cardoso-red and of a soft and friable consistency. Totally submitted in one cassette.Gross examination performed at [facility], [address] [place], [place] [address]AMS July 21, 2024 7:23 PMPerformed By: #### 25200-3 ####[facility] LABCLIA [id number] [address] [address] [place] OF AMERICAUS BIOPSY SALIVARY GLANDon 63-12-5658RO BIOPSY SALIVARY GLANDNormalCMercy Health [facility] Hospital panel Auto (Bld)on 64-69-4657Shjpnmipipc distribution width (RBC) [Ratio]12.5 %Normal 11.5-15.0[facility] on above:Order Comment: Specimen Type: BLOOD SPECIMENOrdering Facility: [facility] Address:[address] [place], [place] [address]Performed By: #### 17795-5 ####[facility] LABCLIA [id number] [place] [address] Hematocrit (Bld) [Volume fraction]41.0 %Fjuktq14.0-51.0[facility] on above:Order Comment: Specimen Type: BLOOD SPECIMENOrdering Facility: [facility] Address:[address] [place], [place] [address]Performed By: #### 87440-0 ####[facility] LABCLIA [id number] [place], [place] [address]Jfginienny (Bld) [Mass/Vol]13.3 g/tDFtxaba13.0-17.0[facility] on above:Order Comment: Specimen Type: BLOOD SPECIMENOrdering Facility: [facility] Address:[address] [place] [address]Performed By: #### 42457-8 ####[facility] LABCLIA [id number] [place], [place] [address]VRY (RBC) [Entitic mass]30.2 lbIgpqpa73.0-34.0[facility] on above:Order Comment: Specimen Type: BLOOD SPECIMENOrdering Facility: [facility] Address:[address] [place], [place] [address]Performed By: #### 18559-1 ####[facility] LABCLIA [id number] [place], [place] [address]NUUC (RBC) [Mass/Vol]32.4 g/dAJbtdqm78.5-36.0[facility] on above: Order Comment: Specimen Type: BLOOD SPECIMENOrdering Facility: [facility] Address:[address] [place], [place] [address]Performed By: #### 44437- 2 ####[facility] LABCLIA [id number] [place], [place] [address]IRT (RBC) [Entitic vol]93.0 eVGckmjj35.0-100.0[facility] on above:Order Comment: Specimen Type: BLOOD SPECIMENOrdering Facility: [facility] Address:[address] [place], [place] [address]Performed By: #### 73601-9 ####[facility] LABIA [id number] [place], [place] [address]Smydjaore RBC (Bld) [#/Vol]10*3/uLNormal<0.01[facility] on above:Order Comment: Specimen Type: BLOOD SPECIMENOrdering Facility: [facility] Address:[address] [place], [place] [address]Performed By: #### 00658- 2 ####[facility] LABIA [id number] [place], [place] [address]Ofguswdl mean volume (Bld) [Entitic vol]9.6 fLNormal 9.0-12.7CGalion Hospital on above:Order Comment: Specimen Type: BLOOD SPECIMENOrdering Facility: [facility] Address:[address] [place], [place] [address]Performed By: #### 74625-8 ####[facility] [id number] [place], [place] [address]Ofihvceae (Bld) [#/Vol]210 10*3/yWYjguws346-194SribbgajfOhio State East Hospital on above: Order Comment: Specimen Type: BLOOD SPECIMENOrdering Facility: [facility] Address:[address] [place], [place] [address]Performed By: #### 50261- 2 ####[facility] LABIA [id number] [place], [place] [address]QOH (Bld) [#/Vol]4.41 10*6/uLNormal4.20-6.00[facility] on above:Order Comment: Specimen Type: BLOOD SPECIMENOrdering Facility: [facility] Address:[address] [place], [place] [address]Performed By: #### 44241-6 ####[facility] [id number] [place], [place] [address]CSU (Bld) [#/Vol]6.45 10*3/uLNormal3.70-11.00[facility] on above: Order Comment: Specimen Type: BLOOD SPECIMENOrdering Facility: [facility] Address:[address] [place], [place] [address]Performed By: #### 87340- 2 ####[facility] [id number] [place], [place] [address]Xgcpubcwmyy distribution width Auto (RBC) [Ratio]on 93-29-5321Ggmjcibttlc distribution width (RBC) [Ratio]12.5 %11.5-15.0Wilson HealthHematocrit Auto (Bld) [Volume fraction]on 07-16-2024 Hematocrit (Bld) [Volume fraction]41.0 %39.0-51.0Wilson HealthHemoglobin [Mass/volume] in Bloodon 28-56-5511Uggnspcwak (Bld) [Mass/Vol] 13.3 g/dL13.0-17.0Wilson HealthINR in Platelet poor plasma by Coagulation assayon 90-16-6095NUZ Coag (PPP) [Relative time]2.7 {INR}High 0.9-1.3FOhioHealth Nelsonville Health CenterComment on above:Vitamin K Antagonist (VKA) Therapeutic Range: INR 2 to 3 (Target INR of 2.5)Note: For patients treat ed with VKA drugs, such as warfarin, the [employer] 2012 Guideline recommends a therapeutic INR range of 2 to 3 (target INR of 2.5). This recommendation includes high-risk patients with antiphospholipid syndrome with previous arterial or venous thromboembolism, current-generation mechanical or bioprosthetic aortic heart valve replacement.Note: Patients with mechanical aortic valve replacement and additional risk factors for thromboembolic events (atrial fibrillation, previous thromboembolism, LV dysfunction, hypercoagulable conditions) or an older generation mechanical AVR (i.e., ball in-Cage) or any mechanical MVR should have a INR therapeutic range of 2.5 to 3.5 (target INR of 3).Esequiel GH, et al. Chest 2012, 141:7S-47SNishimura RA, et al. [facility] 2017, 70: 252-289Leukocytes [#/volume] corrected for nucleated erythrocytes in Blood by Automated counon 90-04-3485AAU corrected for nucl RBC Auto (Bld) [#/Vol]6.45 k/uL3.70-11.00[facility] Auto (RBC) [Entitic mass]on 64-35-0003KAB (RBC) [Entitic mass]30.2 pg26.0-34.0[facility] SystemHC Auto (RBC) [Mass/Vol]on 67-55-6915NSAY (RBC) [Mass/Vol]32.4 g/dL 30.5-36.0[facility] Health SystemV Auto (RBC) [Entitic vol]on 54-65-6562WPU (RBC) [Entitic vol]93.0 fL80.0-100.0Wilson HealthNucleated RBC Auto (Bld) [#/Vol]on 55-92-7952Prbkzkqgg RBC (Bld) [#/Vol] 10*3/uL<0.01Wilson HealthPT panel Coag (PPP)on 56-22-4378GRJ Coag (PPP) [Relative time]2.7 {INR}High0.9-1.3CGalion Hospital on above:Order Comment: Specimen Type: BLOOD SPECIMENOrdering Facility: [facility] Address:[address] [place], [place] [address]Result Comment: Vitamin K Antagonist (VKA) Therapeutic Range: INR 2 to 3 (Target INR of 2.5)Note: For patients treated with VKA drugs, such as warfarin, the [employer] 2012 Guideline recommends a therapeutic INR range of 2 to 3 (target INR of 2.5). This recommendation includes high-risk patients with antiphospholipid syndrome with previous arterial or venous thromboembolism, current-generation mechanical or bioprosthetic aortic heart valve replacement.Note: Patients with mechanical aortic valve replacement and additional risk factors for thromboembolic events (atrialfibrillation, previous thromboembolism, LV dysfunction, hypercoagulable conditions) or an older gene ration mechanical AVR (i.e., ball in-Cage) or any mechanical MVR should have a INR therapeutic range of 2.5 to 3.5 (target INR of 3).Esequiel GH, et al. Chest 2012, 141:7S-47SNishimura RA, et al. [facility] 2017, 70: 252-289Performed By: #### 64432-3 ####[facility] LABCLIA [id number] [place] [address] [place] AMERICAPT Coag (PPP) [Time] 27.4 sHigh9.7-13.0[facility] on above:Order Comment: Specimen Type: BLOOD SPECIMENOrdering Facility: [facility] Address:[address] [place], [place] [address]Performed By: #### 86711-6 ####[facility] LABIA [id number] [place] [address] [place] AMERICAPlatelet mean volume Auto (Bld) [Entitic vol]on 01-04-2547Roigjsms mean volume (Bld) [Entitic vol]9.6 fL9.0-12.7 Wilson HealthPlatelets Auto (Bld) [#/Vol]on 07-16-2024 Platelets (Bld) [#/Vol]210 10*3/vA819-149HlbcwvzmfWilson Health Prothrombin time (PT)on 28-03-7248PX Coag (PPP) [Time]27.4 sHigh9.7-13.0 Wilson HealthRBC Auto (Bld) [#/Vol]on 05-90-2922IAO (Bld) [#/Vol]4.41 10*6/uL4.20-6.00Wilson HealthNURSING PROGon 46-78-7067OZQVFVM PROGNormalNorwalk Memorial HospitalvelandCNOVon 59-21-6145YQST NormalShelby Memorial HospitalCNPNon 41-66-8152SLKIDvtsahZwywmshgw Clinic ClevelandCT NECK SOFT TISSUE W IVCONon 40-52-6069IQ NECK SOFT TISSUE W IVCON NormalShelby Memorial HospitalCT Neck W contrast Sachi 23-15-6447QYDREZDDEV: Slight interval increase in size of left parotid mass since 08/29/2023 worrisome for primary neoplasm. Otherwise stable appearance of the soft tissues of the neck. Transcribe Date/Time: May 28 2024 3:19P Dictated by: SHALINI ALAN MD This examination was interpreted and the report reviewed and electronically signed by: SHALINI ALAN MD on May 28 2024 3:36PM EST Thank you for allowing us to participate in the care of your patient. Should there be any questions regarding this interpretation, please call [phone]. If you are unable to reach us at the number above, please feel free to contact [facility] eRadiology at [phone].DIVISION OF RADIOLOGY* * *Final Report* * * DATE OF EXAM: May 28 2024 2:29PM [facility] 0013 - CT NECK SOFT TISSUE W IVCON / PROCEDURE REASON: multiple diagnoses * * * * Physician Interpretation * * * * RESULT: EXAMINATION: CT NECK SOFT TISSUE W IVCON HISTORY: Multiple myeloma, thrombocytopenia and chronic anticoagulation. Left periauricular mass. Technique: CT of the soft tissues of the neck with IV contrast. A series of contiguous helical scans were performed from the skull base to the aortic arch. M: CTNW_1 Contrast: 100 mL Omnipaque [address] Dose-Length Product (DLP): 615 mGy*cm CT Dose Reduction Employed: No dose reduction technique required COMPARISON: 08/29/2023 RESULT: Postoperative change: None apparent. Suprahyoid Neck: Nasopharynx remains within normal limits. The oropharynx is again noted to be relatively narrow due to tortuosity of the ECA branches and prominent adjacent fat. No evidence of a soft tissue mass. The soft tissue planes of the adjacent parapharyngeal spaces are maintained. The soft tissue planes of the intrinsic and extrinsic muscles of the tongue are maintained. Again noted is a multilobulated, heterogeneously enhancing soft tissue mass in the dorsal superficial aspect of left parotid gland which is marginally exophytic dorsally. Overall, this mass measures approximately 2.5 x 2.7 x 2.3 cm in greatest AP, transverse, and CC dimensions, respectively. When compared to the prior study, this is slightly increased in size. The soft tissue planes of the region of the left stylomastoid foramen are maintained. The parotid and submandibular glands are otherwise within normal limits. The soft tissue planes of the delicatessen department manager spaces are maintained. There is no evidence of a soft tissue mass otherwise in the suprahyoid neck. Infrahyoid Neck: Hypopharynx, larynx, and imaged infraglottic trachea appear normal. Imaged upper esophagus is unremarkable. Thyroid gland is homogeneous without evidence of discrete nodule. There is no evidence of a soft tissue mass otherwise in the infrahyoid neck. Lymph Nodes: A few scattered small lymph nodes are noted in levels I-III and VII, all of which are sharply delineated, of soft tissue attenuation and measure less than 5 mm in short axis suggesting scattered reactive lymph nodes. No significant interval change. Carotid Space: The soft tissue planes along each carotid space are maintained. Mild atherosclerotic calcifications are noted in each carotid bifurcation. Patent extracranial carotid systems and internal jugular veins bilaterally. Orbits, Face and Skull Base: Orbital soft tissue planes are preserved. . Paranasal sinuses are clear. . Mastoid air cells and middle ear cavities are clear. . No evidence of an osteolytic or osteoblastic process in the skull base. . . Imaged intracranial contents: Again noted is moderate parenchymal volume loss which is somewhat more prominent in the frontal lobes and, to a lesser extent in the temporal lobes. There continues to be moderate to severe enlargement of lateral and third ventricles with disproportionate enlargement of the frontal and temporal horns suggesting preferential frontotemporal volume loss. No significant change. Cervical spine and remaining osseous structures: Alignment is normal. Scattered lytic foci are noted throughout the visualized spine compatible with the clinical history of myeloma. No clear evidence of an epidural soft tissue mass. Mild spondylotic changes in the visualized spine. Lung apices: Small calcified granuloma is again noted in the right lung apex. Other: Not applicable. DIVISION OF RADIOLOGYProvider, [facility] [place] - 05/28/2024 * * *Final Report* * * DATE OF EXAM: May 28 2024 2:29PM [facility] 0013 - CT NECK SOFT TISSUE W IVCON / PROCEDURE REASON: multiple diagnoses * * * * Physician Interpretation * * * * RESULT: EXAMINATION: CT NECK SOFT TISSUE W IVCON HISTORY: Multiple myeloma, thrombocytopenia and chronic anticoagulation. Left periauricular mass. Technique: CT of the soft tissues of the neck with IV contrast. A series of contiguous helical scans were performed from the skull base to the aortic arch. M: CTNW_1 Contrast: 100 mL Omnipaque [address] Dose-Length Product (DLP): 615 mGy*cm CT Dose Reduction Employed: No dose reduction technique required COMPARISON: 08/29/2023 RESULT: Postoperative change: None apparent. Suprahyoid Neck: Nasopharynx remains within normal limits. The oropharynx is again noted to be relatively narrow due to tortuosity of the ECA branches and prominent adjacent fat. No evidence of a soft tissue mass. The soft tissue planes of the adjacent parapharyngeal spaces are maintained. The soft tissue planes of the intrinsic and extrinsic muscles of the tongue are maintained. Again noted is a multilobulated, heterogeneously enhancing soft tissue mass in the dorsal superficial aspect of left parotid gland which is marginally exophytic dorsally. Overall, this mass measures approximately 2.5 x 2.7 x 2.3 cm in greatest AP, transverse, and CC dimensions, respectively. When compared to the prior study, this is slightly increased in size. The soft tissue planes of the region of the left stylomastoid foramen are maintained. The parotid and submandibular glands are otherwise within normal limits. The soft tissue planes of the delicatessen department manager spaces are maintained. There is no evidence of a soft tissue mass otherwise in the suprahyoid neck. Infrahyoid Neck: Hypopharynx, larynx, and imaged infraglottic trachea appear normal. Imaged upper esophagus is unremarkable. Thyroid gland is homogeneous without evidence of discrete nodule. There is no evidence of a soft tissue mass otherwise in the infrahyoid neck. Lymph Nodes: A few scattered small lymph nodes are noted in levels I-III and VII, all of which are sharply delineated, of soft tissue attenuation and measure less than 5 mm in short axis suggesting scattered reactive lymph nodes. No significant interval change. Carotid Space: The soft tissue planes along each carotid space are maintained. Mild atherosclerotic calcifications are noted in each carotid bifurcation. Patent extracranial carotid systems and internal jugular veins bilaterally. Orbits, Face and Skull Base: Orbital soft tissue planes are preserved. . Paranasal sinuses are clear. . Mastoid air cells and middle ear cavities are clear. . No evidence of an osteolytic or osteoblastic process in the skull base. . . Imaged intracranial contents: Again noted is moderate parenchymal volume loss which is somewhat more prominent in the frontal lobes and, to a lesser extent in the temporal lobes. There continues to be moderate to severe enlargement of lateral and third ventricles with disproportionate enlargement of the frontal and temporal horns suggesting preferential frontotemporal volume loss. No significant change. Cervical spine and remaining osseous structures: Alignment is normal. Scattered lytic foci are noted throughout the visualized spine compatible with the clinical history of myeloma. No clear evidence of an epidural soft tissue mass. Mild spondylotic changes in the visualized spine. Lung apices: Small calcified granuloma is again noted in the right lung apex. Other: Not applicable. 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 Otherwise stable appearance of the soft tissues of the neck. Transcribe Date/Time: May 28 2024 3:19P Dictated by: SHALINI ALAN MD This examination was interpreted and the report reviewed and electronically signed by: SHALINI ALAN MD on May 28 2024 3:36PM EST Thank you for allowing us to participate in the care of your patient. Should there be any questions regarding this interpretation, please call [phone]. If you are unable to reach us at the number above, please feel free to contact [facility] at [phone]. [facility] ClinicRadiology Study observation (narrative)[facility] Medical CenterCT Neck W contrast IVOrdered By: Ccf Provider on 48-50-6927Isffzpdhs ClinicCNOVSPon 27-09-7607UQUZOZSncepmPwzockhwx Clinic Clesuburban community hospital & brentwood hospitalCNPNon 95-90-3467JRJMZzlawd Shelby Memorial HospitalAlbumin [Mass/volume] in Serum or Plasmaon 05-10-2024 Albumin [Mass/Vol]Albumin [Mass/volume] in Serum or Plasma3.43-5.41Wilson HealthB2 Microglob SerPl-mCncon 45-88-8694Kkqo-2-Microglobulin [Mass/Vol]4.7 ug/mLHigh<3.1ClevelCleveland Clinic Children's Hospital for [facility] on above:Order Comment: Specimen Type: BLOOD SPECIMENOrdering Facility: [facility] Address:[address] [place], [place] [address]Result Comment: Beta-2 Microglobulin test is performed using the [employer] immunoturbidimetric method. Results obtained with different methods or kits cannot be used interchangeably.Performed By: #### 1952-1, 2885-2 ####[facility] LABCLIA [id number] [facility] Z02KEGZCLBLGCHRISTINE VIL[place] [id number] [place] OF AMERICABasophils Auto (Bld) [#/Vol]on 49-51-9680Jealhnith (Bld) [#/Vol]Automated basophil count<0.11[facility] Basophils/100 WBC Auto (Bld)on 11-28-2301Azpaucgzz/100 WBC (Bld)Automated basophil %Wilson HealthBlood manual differential comment interpretation narrativeon 25-64-8487Joupvx differential comment Augie (Bld) [Interp]Blood manual differential comment interpretation narrativeWilson HealthCBC W Auto Differential panel (Bld)on 62-76-0257Irgyrqczm (Bld) [#/Vol]0.03 10*3/uLNormal<0.11CGalion Hospital on above: Order Comment: Specimen Type: BLOOD SPECIMENOrdering Facility: [facility] Address:[address] [place], [place] [address]Performed By: #### 09854- 8 ####AIYANAARMALA [facility] LABCLIA [id number] [place], [place] [address]Hxphwbctb/100 WBC (Bld)0.4 %NormalOhio State East Hospital on above:Order Comment: Specimen Type: BLOOD SPECIMENOrdering Facility: [facility] Address:[address] [place], [place] [address]Performed By: #### 03789-7 ####[facility] LABCLIA [id number] [place], [place] [address]Ovrmotesmsgr cell count method Nom (Bld)AutoNormalCGalion Hospital on above:Order Comment: Specimen Type: BLOOD SPECIMENOrdering Facility: [facility] Address:[address] [place], [place] [address]Performed By: #### 03996-8 ####[facility] LABCLIA [id number] [place], [place] [address]Uimfqtzbzbs (Bld) [#/Vol]0.16 10*3/uLNormal<0.46[facility] on above:Order Comment: Specimen Type: BLOOD SPECIMENOrdering Facility: [facility] Address:[address] [place], [place] [address]Performed By: #### 41920-5 ####[facility] LABCLIA [id number] [place], [place] [address]Xcjazvirpdp/100 WBC (Bld)2.0 %NormalOhio State East Hospital on above:Order Comment: Specimen Type: BLOOD SPECIMENOrdering Facility: [facility] Address:[address] [place], [place] [address]Performed By: #### 92640-8 ####[facility] LABCLIA [id number] [place], [place] [address]Bjitzptmrkb distribution width (RBC) [Ratio]13.5 %Normal 11.5-15.0[facility] on above:Order Comment: Specimen Type: BLOOD SPECIMENOrdering Facility: [facility] Address:[address] [place], [place] [address]Performed By: #### 38848-5 ####[facility] LABIA [id number] [place] [address] Hematocrit (Bld) [Volume fraction]41.9 %Ppddlk67.0-51.0[facility] on above:Order Comment: Specimen Type: BLOOD SPECIMENOrdering Facility: [facility] Address:[address] [place], [place] [address]Performed By: #### 55772-3 ####[facility] LABIA [id number] [place], [place] [address]Nlospegrlo (Bld) [Mass/Vol]13.7 g/lTQmcduq31.0-17.0[facility] on above:Order Comment: Specimen Type: BLOOD SPECIMENOrdering Facility: [facility] Address:[address] [place], [place] [address]Performed By: #### 07704-8 ####[facility] LABIA [id number] [place], [place] [address]Dlycjjqz granulocytes (Bld) [#/Vol]0.03 10*3/uLNormal <0.10[facility] on above:Order Comment: Specimen Type: BLOOD SPECIMENOrdering Facility: [facility] Address:[address] [place], [place] [address]Performed By: #### 09232-1 ####[facility] LABCLIA [id number] [place], [place] [address]Mwnpzath granulocytes/100 WBC (Bld)0.4 %NormalOhio State East Hospital on above: Order Comment: Specimen Type: BLOOD SPECIMENOrdering Facility: [facility] Address:[address] [place], [place] [address]Performed By: #### 32300- 8 ####[facility] LABCLIA [id number] [place], [place] [address]Hbnimbbldas (Bld) [#/Vol]1.73 10*3/uLNormal1.00-4.00 [facility] on above:Order Comment: Specimen Type: BLOOD SPECIMENOrdering Facility: [facility] Address:[address] [place], [place] [address]Performed By: #### 06722-4 ####[facility] LABCLIA [id number] [place], [place] [address]Epzryacgnsm/100 WBC (Bld)22.1 %NormalOhio State East Hospital on above:Order Comment: Specimen Type: BLOOD SPECIMENOrdering Facility: [facility] Address:[address] [place], [place] [address]Performed By: #### 66070-4 ####[facility] LABCLIA [id number] [place], [place] [address]GYI (RBC) [Entitic mass]30.7 rpNzqtpm38.0-34.0[facility] on above:Order Comment: Specimen Type: BLOOD SPECIMENOrdering Facility: [facility] Address:[address] [place], [place] [address]Performed By: #### 59081-9 ####[facility] LABCLIA [id number] [place], [place] [address]XNJU (RBC) [Mass/Vol]32.7 g/yACxyxlb88.5-36.0[facility] on above: Order Comment: Specimen Type: BLOOD SPECIMENOrdering Facility: [facility] Address:[address] [place], [place] [address]Performed By: #### 33823- 8 ####[facility] LABCLIA [id number] [place], [place] [address]PQY (RBC) [Entitic vol]93.9 mGEabdgu22.0-100.0[facility] on above:Order Comment: Specimen Type: BLOOD SPECIMENOrdering Facility: [facility] Address:[address] [place], [place] [address]Performed By: #### 47518-7 ####[facility] LABIA [id number] [place], [place] [address]Ewkohxzni (Bld) [#/Vol]0.79 10*3/uLNormal<0.87[facility] on above:Order Comment: Specimen Type: BLOOD SPECIMENOrdering Facility: [facility] Address:[address] [place], [place] [address]Performed By: #### 10986- 8 ####[facility] LABCLIA [id number] [place], [place] [address]Egqpgwxvq/100 WBC (Bld)10.1 %NormalOhio State East Hospital on above:Order Comment: Specimen Type: BLOOD SPECIMENOrdering Facility: [facility] Address:[address] [place], [place] [address]Performed By: #### 36879-7 ####[facility] LABIA [id number] [place], [place] [address]Hlftorszeji (Bld) [#/Vol]5.10 10*3/uLNormal1.45-7.50[facility] on above:Order Comment: Specimen Type: BLOOD SPECIMENOrdering Facility: [facility] Address:[address] [place], [place] [address]Performed By: #### 68150-7 ####[facility] LABCLIA [id number] [place], [place] [address]Toasmksrsdf/100 WBC (Bld)65.0 %NormalOhio State East Hospital on above:Order Comment: Specimen Type: BLOOD SPECIMENOrdering Facility: [facility] Address:[address] [place], [place] [address]Performed By: #### 37248-2 ####[facility] LABIA [id number] [place], [place] [address]Agpwecpdh RBC (Bld) [#/Vol] 10*3/uLNormal<0.01[facility] on above:Order Comment: Specimen Type: BLOOD SPECIMENOrdering Facility: [facility] Address:[address] [place], [place] [address]Performed By: #### 86413-1 ####[facility] LABCLIA [id number] [place], [place] [address]Xrulnxwpc RBC/100 WBC (Bld) [Ratio]0.0 /100 WBCNormal [facility] on above:Order Comment: Specimen Type: BLOOD SPECIMENOrdering Facility: [facility] Address:[address] [place], [place] [address]Performed By: #### 87814-3 ####[facility] LABCLIA [id number] [place], [place] [address]Wjjgcioy mean volume (Bld) [Entitic vol]9.7 fLNormal9.0-12.7CGalion Hospital on above:Order Comment: Specimen Type: BLOOD SPECIMENOrdering Facility: [facility] Address:[address] [place] [address] Performed By: #### 00677-0 ####[facility] LABCLIA [id number] [place], [place] [address]Qzwswvseq (Bld) [#/Vol]232 10*3/eZRlbltz609-225ZvyfybwlhOhio State East Hospital on above:Order Comment: Specimen Type: BLOOD SPECIMENOrdering Facility: [facility] Address:[address] [place], [place] [address]Performed By: #### 87567-3 ####[facility] LABCLIA [id number] [place], [place] [address]XKW (Bld) [#/Vol]4.46 10*6/uLNormal4.20-6.00[facility] on above:Order Comment: Specimen Type: BLOOD SPECIMENOrdering Facility: [facility] Address:[address] [place], [place] [address]Performed By: #### 43551-2 ####[facility] LABCLIA [id number] [place], [place] [address]WYN (Bld) [#/Vol]7.84 10*3/uLNormal3.70-11.00[facility] on above: Order Comment: Specimen Type: BLOOD SPECIMENOrdering Facility: [facility] Address:[address] [place], [place] [address]Performed By: #### 45790- 8 ####[facility] LABCLIA [id number] [place], [place] [address]Larrmyw.ionized [Moles/Vol]on 89-27-4167Voxlgwd.ionized (Bld) [Mass/Vol]1.26 mmol/LNormal1.08-1.30[facility] on above:Order Comment: Specimen Type: BLOOD SPECIMENOrdering Facility: [facility] Address:[address] [place], [place] [address]Performed By: #### 1995-0 ####[facility] LABIA [id number] [address]ETCalcium.ionized adjusted to pH 7.4 (Bld) [Moles/Vol]1.22 mmol/LNormal1.08-1.30[facility] on above:Order Comment: Specimen Type: BLOOD SPECIMENOrdering Facility: [facility] Address:[address] [place] [address]Nfjklysea By: #### 1995-0 ####[facility]ITAL[facility] [id number] [place] [address] [facility] Comprehensive metabolic 2000 panelon 01-99-6642Ztqwsbs [Mass/Vol]3.9 g/dLNormal 3.9-4.9CGalion Hospital on above:Order Comment: Specimen Type: BLOOD SPECIMENOrdering Facility: [facility] Address:[address] [place], [place] [address]Performed By: #### 3084-1, 55736-5, 2777-1, 2532-0 ####[facility] LABCLIA [id number] [place], [place] [address]MGL [Catalytic activity/Vol]96 U/ZUswbex08-261FtrzmyfprOhio State East Hospital on above:Order Comment: Specimen Type: BLOOD SPECIMENOrdering Facility: [facility] Address:[address] [place], [place] [address]Performed By: #### 3084-1, 14417-5, 7-1, 2532-0 ####[facility] LABCLIA [id number] [place], [place] [address]AYQ [Catalytic activity/Vol]16 U/AFxaldz56-02WaggfstjxOhio State East Hospital on above:Order Comment: Specimen Type: BLOOD SPECIMENOrdering Facility: [facility] Address:[address] [place], [place] [address]Performed By: #### 3084-1, 11768-2, 2776-1, 2532-0 ####[facility] LABCLIA [id number] [place], [place] [address]Cuirw gap [Moles/Vol]9 mmol/LNormal8-15[facility] on above:Order Comment: Specimen Type: BLOOD SPECIMENOrdering Facility: [facility] Address:[address] [place], [place] [address]Performed By: #### 3084-1, 21218-1, 7-1, 2532-0 ####[facility] LABIA [id number] [place], [place] [address]IDR [Catalytic activity/Vol]21 U/PRchwwu23-79RkclremcoOhio State East Hospital on above:Order Comment: Specimen Type: BLOOD SPECIMENOrdering Facility: [facility] Address:[address] [place], [place] [address]Performed By: #### 3084-1, 45439-6, 7-, 2532-0 ####ANITRA BILL [facility] LABCLIA [id number] [place], [place] [address]Enocbrpyv [Mass/Vol]0.3 mg/dL Normal0.2-1.3CGalion Hospital on above:Order Comment: Specimen Type: BLOOD SPECIMENOrdering Facility: [facility] Address:[address] [place], [place] [address]Performed By: #### 3084-1, 29837-5, 2776-, 2532- 0 ####ANITRA KHAN [facility] LABCLIA [id number] [place], [place] [address]Gakgwbr [Mass/Vol]9.5 mg/dLNormal8.5-10.2CGalion Hospital on above:Order Comment: Specimen Type: BLOOD SPECIMENOrdering Facility: [facility] Address:[address] [place], [place] [address]Performed By: #### 3084-1, 58681-4, 2776-, 2532-0 ####ANITRA KHAN [facility] LABCLIA [id number] [place], [place] [address]Qgxovnvm [Moles/Vol]102 mmol/XOfmaiv78-926VxrvpsgeeOhio State East Hospital on above: Order Comment: Specimen Type: BLOOD SPECIMENOrdering Facility: [facility] Address:[address] [place], [place] [address]Performed By: #### 3084- 1, 50472-4, 2776-, 2532-0 ####ANITRA MCDONOUGHUSKY [facility] LABCLIA [id number] [place], [place] [address]OC5 [Moles/Vol]26 mmol/LNormal 22-30[facility] on above:Order Comment: Specimen Type: BLOOD SPECIMENOrdering Facility: [facility] Address:[address] [place], [place] [address]Performed By: #### 3084-1, 49225-7, 2776-1, 2532-0 ####[facility] LABCLIA [id number] [place], [place] [address]Xenzdwokai [Mass/Vol]1.34 mg/dLHigh0.73-1.22[facility] on above:Order Comment: Specimen Type: BLOOD SPECIMENOrdering Facility: [facility] Address:[address] [place], [place] [address]Performed By: #### 3084-1, 93830-5, 2777-1, 2532-0 ####[facility] LABCLIA [id number] [place], [place] [address]Klcryuzwuo and Glomerular filtration rate.predicted panel (S/P/Bld)53 mL/min/1.73m???Low>=60[facility] on above: Order Comment: Specimen Type: BLOOD SPECIMENOrdering Facility: [facility] Address:[address] [place], [place] [address]Result Comment: Estimated Glomerular Filtration Rate (eGFR) is calculated using the 2020 CKD-EPI cre atinine equation. This equation utilizes serum creatinine, sex, and age as parameters. The creatinine assay has traceable calibration to isotope dilution- mass spectrometry. Refer to KDIGO guidelines for clinical interpretation. In patients with unstable renal function, e.g. those with acute kidney injury, the eGFR may not accurately reflect actual GFR.Performed By: #### 3084-1, 59161-2, 277-1, 2532-0 ####[facility] LABCLIA [id number] [place], [place] [address]Bjfqqrd [Mass/Vol]237 mg/rFMwrm02-75 [facility] on above:Order Comment: Specimen Type: BLOOD SPECIMENOrdering Facility: [facility] Address:[address] [place] [address]Imbcii Comment: The [place] Diabetes Association (ADA) provides guidance for cutoff [...] unequivocal hyperglycemia, results should be confirmed by repeattesting. In a patient with classic symptoms of hyperglycemia or hyperglycemic crisis, random plasmaglucose results greater than or equal to 200 mg/dL meet the criteria for diagnosis of diabetes.Reference: Standards of Medical Care in Diabetes 2016, [place] Diabetes Association. Diabetes Care. 2016.39(Suppl 1).Performed By: #### 3084-1, 56990-8, 2776-03, 2-0 ####[facility] LABCLIA [id number] [place], [place] [address]Nlzujtveh [Moles/Vol]4.2 mmol/L Normal3.7-5.1CGalion Hospital on above:Order Comment: Specimen Type: BLOOD SPECIMENOrdering Facility: [facility] Address:[address] [place], [place] [address]Performed By: #### 3084-1, 74843-4, 2776-03, 2- 0 ####[facility] LABCLIA [id number] [place], [place] [address]Vcldnv [Moles/Vol]137 mmol/QTefnwp970-217InvzgjnjnOhio State East Hospital on above:Order Comment: Specimen Type: BLOOD SPECIMENOrdering Facility: [facility] Address:[address] [place], [place] [address]Performed By: #### 3084-1, 25747-3, 2776-03, 2531-0 ####[facility] LABCLIA [id number] [place], [place] [address]Genl nitrogen [Mass/Vol]17 mg/dLNormal9-24[facility] on above: Order Comment: Specimen Type: BLOOD SPECIMENOrdering Facility: [facility] Address:[address] [place], [place] [address]Performed By: #### 3084- 1, 95993-3, 2776-03, 2532-0 ####[facility] LABCLIA [id number] [place], [place] [address]Ivfsdqbpkei/100 WBC Auto (Bld)on 18-43-9093Obobmtiywul/100 WBC (Bld)Automated eosinophil %Wilson HealthErythrocyte distribution width Auto (RBC) [Ratio]on 05-10-2024 Erythrocyte distribution width (RBC) [Ratio]Erythrocyte distribution width [Ratio] by Automated count11.5-15.0Wilson HealthHematocrit Auto (Bld) [Volume fraction]on 89-28-2718Gsznrgxupy (Bld) [Volume fraction] Hematocrit [Volume Fraction] of Blood by Automated count39.0-51.0Wilson HealthHemoglobin [Mass/volume] in Bloodon 46-44-5399Rijzfxbvls (Bld) [Mass/Vol]Hemoglobin [Mass/volume] in Blood13.0-17.0Wilson HealthIMMUNOFIXATION SCREEN, SERUMon 82-80-6115EWUSEJJHZBKQSS (MPA) Atypical restricted bands are present in the IgG and kappa regions. Consistent with IgG kappa monoclonal gammopathy.NormalOhio State East Hospital on above:Order Comment: Specimen Type: BLOOD SPECIMENOrdering Facility: [facility] Address:[address] [place], [place] [address]Performed By: #### IFESC ####[facility] LABCLIA [id number] [facility] [id number] [place] [address] [place] AMERICAMPA RESULTM protein is present. AbnormalNo M protein is identified.[facility] on above: Order Comment: Specimen Type: BLOOD SPECIMENOrdering Facility: [facility] Address:[address] [place], [place] [address]Performed By: #### IFESC ####[facility] LABIA [id number] [facility] [address] [place] [address] [place] AMERICASTAFF REVIEW (MPA)Reviewed by Lily Lindsay M.D., Ph.DNormalOhio State East Hospital on above: Order Comment: Specimen Type: BLOOD SPECIMENOrdering Facility: [facility] Address:[address] [place], [place] [address]Performed By: #### IFESC ####[facility] LABCLIA [id number] [place] [address] [place] AMERICAIMMUNOGLOBULINS,IGG,IGA,IGMon 58-83-7967QdW [Mass/Vol]299 mg/kPZtwqcn80-943BxxithnjqOhio State East Hospital on above:Order Comment: Specimen Type: BLOOD SPECIMENOrdering Facility: [facility] Address:[address] [place] [address] Performed By: #### SERIMM ####[facility] LABCLIA [id number] [place] [address] [place] IgG [Mass/Vol]1514 mg/rIPrloqo574-7940UvldrwlhgOhio State East Hospital on above:Order Comment: Specimen Type: BLOOD SPECIMENOrdering Facility: [facility] Address:[address] [place], [place] [address]Performed By: #### SERIMM ####[facility] LABCLIA [id number] [place] [address] [place] AMERICAIgM [Mass/Vol]321 mg/dL Ltqh08-792EqcnybtptOhio State East Hospital on above:Order Comment: Specimen Type: BLOOD SPECIMENOrdering Facility: [facility] Address:[address] [place], [place] [address]Performed By: #### SERIMM ####[facility] LABCLIA [id number] [place] [address] [place] AMERICAIgA [Mass/volume] in Serum or Plasmaon 71-87-3243ArM [Mass/Vol]IgA [Mass/volume] in Serum or Rylutm45-935OpkaahwbgWilson HealthIgG [Mass/volume] in Serum or Plasmaon 69-66-6756CmM [Mass/Vol]IgG [Mass/volume] in Serum or Xlxndd870-2786PwoqbxaddWilson HealthIgM [Mass/volume] in Serum or Plasmaon 44-41-7294TpQ [Mass/Vol]IgM [Mass/volume] in Serum or VaadctWnpu94-066SsypcumrfWilson HealthImmunoglobulin light chains.kappa.free [Mass/volume] in Serumon 06-96-7183Czvgvskapvlfxm light chains.kappa.free (S) [Mass/Vol]Immunoglobulin light chains.kappa.free [Mass/volume] in SerumHigh3.3-19.4FOhioHealth Nelsonville Health CenterComment on above:Rarely, increased serum free light chains levels may not be detected or accurately quantified due to prozone phenomenon or in high viscosity samples using this immunoturbidimetric assay. Correlation with other laboratory results and clinical findings is recommended. The [place] Free Light Chain was performed using the Binding Site Optilite immunoturbidimetric method. Result obtained with different assay methods or kits cannot be used interchangeably.Immunoglobulin light chains.kappa.free/Immunoglobulin light chains.lambda.free [Bowen 32-71-2500Pwymcutwggcyzw light chains.kappa.free/Immunoglobulin light chains.lambda.free (S) [Mass ratio]Immunoglobulin light chains.kappa.free/Immunoglobulin light chains.lambda.free [MassHigh0.26-1.65 Wilson HealthImmunoglobulin light chains.lambda.free [Mass/volume] in Serum or Plasmaon 83-31-9293Bgdjixbrseomls light chains.lambda.free [Mass/Vol]Immunoglobulin light chains.lambda.free [Mass/volume] in Serum or PlasmaHigh5.7-26.3FOhioHealth Nelsonville Health Center Comment on above:Rarely, increased serum free light chains levels may not be detected or accurately quantified due to prozone phenomenon or in high viscosity samples using this immunoturbidimetric assay. Correlation with other laboratory results and clinical findings is recommended. The Lambda Free Light Chain was p erformed using the Binding Site Optilite immunoturbidimetric method. Result obtained with differentassay methods or kits cannot be used interchangeably. KAPPA/COTA,FREE,SERon 69-06-5922Tqzawvwuajdzrg light chains.kappa.free (S) [Mass/Vol]150.1 mg/LHigh3.3-19.4CAccess Hospital DaytonComment on above:Order Comment: Specimen Type: BLOOD SPECIMENOrdering Facility: [facility] Address:[address] [place] [address] [place], [place] [address]Szuqwr Comment: Rarely, increased serum free light chains levels may not be detected or accurately q uantified due to prozone phenomenon or in high viscosity samples using this immunoturbidimetric assay. Correlation with other laboratory results and clinical findings is recommended.The [place] Free Light Chain was performed using the Binding Site Optilite immunoturbidimetric method. Result obtained with different assay methods or kits cannot be used interchangeably.Performed By: #### KLFRS ####[facility] LABCLIA [id number] [place] [address] [place] AMERICAImmunoglobulin light chains.kappa/Immunoglobulin light chains.lambda (S) [Mass ratio]2.81High 0.26-1.65[facility] on above:Order Comment: Specimen Type: BLOOD SPECIMENOrdering Facility: [facility] Address:[address] [place], [place] [address]Performed By: #### KLFRS ####[facility] HOSPITALIA [id number] [place] [address] [place] [facility] HOSPITALImmunoglobulin light chains.lambda.free [Mass/Vol]53.5 mg/LHigh5.7-26.3CGalion Hospital on above:Order Comment: Specimen Type: BLOOD SPECIMENOrdering Facility: [facility] Address:[address] [place], [place] [address]Result Comment: Rarely, increased serum free light chains levels may not be detected or accurately quantified due to prozone phenomenon or in high viscosity samples using this immunoturbidimetric assay. Correlation with other laboratory results and clinical findings is recommended.The Lambda Free Light Chain was performed using the Binding Site Optilite immunoturbidimetric method. Result obtainedwith different assay methods or kits cannot be used interchangeably.Performed By: #### KLFRS ####[facility] LABIA [id number] [place] [address] [place] AMERICALD SerPl-cCncon 02-12-9144OQB [Catalytic activity/Vol]127 U/YYvh866-961EuhiyneswOhio State East Hospital on above:Order Comment: Specimen Type: BLOOD SPECIMENOrdering Facility: [facility] Address:[address] [place], [place] [address]Crpengpwz By: #### 3084-1, 65356-4, 2777-1, 2532-0 ####[facility] LABCLIA [id number] [place] [address] Laboratory - Chemistry and Chemistry - challengeon 34-37-0362Ovsifwi [Mass/Vol] 3.9 g/dL3.9-4.9Wilson HealthALP [Catalytic activity/Vol]96 U/A25-592GsctsadyhWilson HealthALT [Catalytic activity/Vol]16 U/L 10-54Wilson HealthAST [Catalytic activity/Vol]21 U/L14-40 Wilson HealthBilirubin [Mass/Vol]0.3 mg/dL0.2-1.3FOhioHealth Nelsonville Health CenterCalcium [Mass/Vol]9.5 mg/dL8.5-10.2FOhioHealth Nelsonville Health CenterChloride [Moles/Vol]102 mmol/U20-688BoclondndWilson HealthCO2 [Moles/Vol]26 mmol/A97-96OzeithqcoWilson HealthCreatinine [Mass/Vol]1.34 mg/dLHigh0.73-1.22Wilson HealthGlucose [Mass/Vol]237 mg/fOVbnl52-41PdwrnyiqjWilson HealthComment on above: The [place] Diabetes Association (ADA) provides guidance for cutoff values for fasting glucose andrandom glucose. The ADA defines fasting as no [...] hyperglycemia or hyperglycemic crisis, random plasma glucose resultsgreater than or equal to 200 mg/dL meet the criteria for diagnosis of diabetes.Reference: Standardsof Medical Care in Diabetes 2016, [place] Diabetes Association. Diabetes Care. 2016.39(Suppl 1).LDH [Catalytic activity/Vol]127 U/KUmg004-933KtuqihjsmWilson HealthPotassium [Moles/Vol]4.2 mmol/L3.7-5.1FOhioHealth Nelsonville Health CenterProtein [Mass/Vol]0.60 g/dLHigh<=0.00[facility] Sodium [Moles/Vol]137 mmol/Y377-166HaupuwxhpWilson HealthUrate [Mass/Vol]5.3 mg/dL4.0-8.1FOhioHealth Nelsonville Health CenterUrea nitrogen [Mass/Vol]17 mg/dL9-24Wilson HealthLaboratory - Hematology and Cell countson 15-70-3498Wnbyifsbffb (Bld) [#/Vol]0.16 10*3/uL<0.46Wilson HealthImmature granulocytes (Bld) [#/Vol]0.03 10*3/uL<0.10 Wilson HealthImmature granulocytes/100 WBC (Bld)0.4 % Wilson HealthLeukocytes [#/volume] corrected for nucleated erythrocytes in Blood by Automated counon 35-87-8422BEQ corrected for nucl RBC Auto (Bld) [#/Vol]Leukocytes [#/volume] corrected for nucleated erythrocytes in Blood by Automated coun3.70-11.00Wilson HealthLymphocytes Auto (Bld) [#/Vol]on 52-22-9079Yzwpndumpct (Bld) [#/Vol]Lymphocytes [#/volume] in Blood by Automated count1.00-4.00[facility] Lymphocytes/100 WBC Auto (Bld)on 41-52-4546Snquuaoelyt/100 WBC (Bld) Lymphocytes/100 leukocytes in Blood by Automated countUniversity Hospitals Health SystemH Auto (RBC) [Entitic mass]on 10-64-4053GTN (RBC) [Entitic mass]MCH [Entitic mass] by Automated count26.0-34.0Wilson HealthMCHC Auto (RBC) [Mass/Vol]on 69-01-6503UKZR (RBC) [Mass/Vol]MCHC [Mass/volume] by Automated count30.5-36.0University Hospitals Health SystemV Auto (RBC) [Entitic vol]on 97-55-0575KNN (RBC) [Entitic vol]MCV [Entitic volume] by Automated count 80.0-100.0Wilson HealthMonocytes Auto (Bld) [#/Vol]on 81-56-1671Bdrzqbusw (Bld) [#/Vol]Automated blood monocyte count<0.87Wilson HealthMonocytes/100 WBC Auto (Bld)on 38-66-4283Scdshwsqe/100 WBC (Bld)Automated monocyte %Wilson HealthNeutrophils Auto (Bld) [#/Vol]on 77-52-8676Lwnunysckqa (Bld) [#/Vol]Neutrophils [#/volume] in Blood by Automated count1.45-7.50[facility] Neutrophils/100 WBC Auto (Bld)on 56-04-0456Wmrdzwjksyb/100 WBC (Bld)Automated neutrophil %Wilson HealthNo Panel Informationon 05-10-2024 Estimated GFR (CKD-EPI)53 mL/min/1.73m???Low>=60Wilson HealthComment on above:Estimated Glomerular Filtration Rate (eGFR) is calculated using the 2020 CKD-EPI creatinine equation. This equation utilizes serum creatinine, sex, and age as parameters. The creatinine assay has traceable calibration to isotope dilution-mass spectrometry. Refer to KDIGO guidelines for clinical interpretation. In patients with unstable renal function, e.g. those with acute kidney injury, the eGFRmay not accurately reflect actual GFR. Immunofixation InterpretationWilson HealthIonized Calcium (pH Adjusted)1.22 mmol/L1.08-1.30Wilson HealthLeuk/Lymph Sign Pathologist (Misc)Reviewed by Lily Lindsay M.D., Ph.Regional Medical CenterMiscellaneous Test 6Gamma Fraction 1FOhioHealth Nelsonville Health CenterMiscellaneous Test CommentReviewed by Lily Lindsay M.D., Ph.Regional Medical CenterPhosphorus Level2.5 mg/dLLow2.7-4.8 Wilson HealthProtein Electrophoresis InterpretWilson HealthProtein Electrophoresis NoteAn M protein is identified on protein electrophoresis.AbnormalNo definitive M protein is identified on protein electrophoresis.Western Reserve Hospitalerum ImmunofixationM protein is present.AbnormalNo M protein is identified.Wilson HealthNucleated RBC Auto (Bld) [#/Vol]on 56-83-3034Queglybkg RBC (Bld) [#/Vol] Nucleated erythrocytes [#/volume] in Blood by Automated count<0.01Wilson HealthNucleated erythrocytes [Presence] in Blood by Automated counton 70-83-4790Tbjfznutv RBC Auto Ql (Bld)Nucleated erythrocytes [Presence] in Blood by Automated countWilson HealthPROTEIN ELECTROPHORESIS SERUM (P)on 76-88-4751Iuttyzq [Mass/Vol]3.57 g/dLNormal3.43-5.41 [facility] on above:Order Comment: Specimen Type: BLOOD SPECIMENOrdering Facility: [facility] Address:[address] [place], [place] [address]Performed By: #### [id number] ####[facility] LABIA [id number] [place] [address] [place] AMERICAAlpha 1 globulin Elph [Mass/Vol]0.29 g/dLNormal0.18-0.43[facility] on above:Order Comment: Specimen Type: BLOOD SPECIMENOrdering Facility: [facility] Address:[address] [place], [place] [address]Performed By: #### [id number] ####[facility] LABIA [id number] [place] [address] [place] Alpha 2 globulin Elph [Mass/Vol]0.77 g/dLNormal0.42-0.98[facility] on above:Order Comment: Specimen Type: BLOOD SPECIMENOrdering Facility: [facility] Address:[address] [place], [place] [address]Performed By: #### [id number] ####[facility] LABIA [id number] [place] [address] [place] Beta globulin Elph [Mass/Vol]0.96 g/dLNormal0.61-1.17[facility] Comment on above:Order Comment: Specimen Type: BLOOD SPECIMENOrdering Facility: [facility] Address:[address] [place] [address] Performed By: #### [id number] ####[facility] LABCLIA [id number] [place] [address] [place] Gamma globulin Elph [Mass/Vol]1.42 g/dLNormal0.53-1.51[facility] Comment on above:Order Comment: Specimen Type: BLOOD SPECIMENOrdering Facility: [facility] Address:[address] [place] [address] Performed By: #### [id number] ####[facility] LABCLIA [id number] [place] [address] [place] INTERPRETATION COMMENT FOR PROTEIN ELECTROPHORESISSee separate immunofixation report for characterization of monoclonal gammopathy.NormalOhio State East Hospital on above:Order Comment: Specimen Type: BLOOD SPECIMENOrdering Facility: [facility] Address:[address] [place], [place] [address]Performed By: #### [id number] ####[facility] LABCLIA [id number] [place] [address] [place] M-PROTEIN LOCATIONGamma Fraction 1NormalWyandot Memorial Hospitalment on above:Order Comment: Specimen Type: BLOOD SPECIMENOrdering Facility: [facility] Address:[address] [place], [place] [address]Performed By: #### [id number] ####[facility] LABCLIA [id number] [place] [address] [place] AMERICAProtein Fractions [Interp]An M protein is identified on protein electrophoresis.AbnormalNo definitive M protein is identified on protein electrophoresis.[facility] on above:Order Comment: Specimen Type: BLOOD SPECIMENOrdering Facility: [facility] Address:[address] [place], [place] [address]Performed By: #### [id number] ####[facility] LABCLIA [id number] [place] [address] [place] Protein.monoclonal Elph [Mass/Vol]0.60 g/dLHigh<=0.00[facility] Comment on above:Order Comment: Specimen Type: BLOOD SPECIMENOrdering Facility: [facility] Address:[address] [place] [address] Performed By: #### [id number] ####[facility] LABCLIA [id number] [place] [address] [place] SPE STAFF REVIEWReviewed by Lily Lindsay M.D., Ph.DNormalWyandot Memorial Hospitalment on above:Order Comment: Specimen Type: BLOOD SPECIMENOrdering Facility: [facility] Address:[address] [place] [address]Performed By: #### [id number] ####[facility] LABIA [id number] [place] [address] [place] Phosphate SerPl-mCncon 67-26-2973Tijnoejaf [Mass/Vol]2.5 mg/dLLow2.7-4.8 [facility] HospitalComment on above:Order Comment: Specimen Type: BLOOD SPECIMENOrdering Facility: [facility] Address:[address] [place], [place] [address]Performed By: #### 3084-1, 63994-5, 2777-1, 2532-0 ####[facility] LABCLIA [id number] [place], [place] [address]Tknpbkrx mean volume Auto (Bld) [Entitic vol]on 42-89-9346Kuksfwjh mean volume (Bld) [Entitic vol]Platelet mean volume [Entitic volume] in Blood by Automated count9.0-12.7FOhioHealth Nelsonville Health Center Platelets Auto (Bld) [#/Vol]on 68-75-3417Ykbzpaxbx (Bld) [#/Vol]Platelets [#/volume] in Blood by Automated rvuyj703-492OzhsolxbuWilson Health Prot SerPl-mCncon 90-05-0631Rkwtiiq [Mass/Vol]7.0 g/dLNormal6.3-8.0[facility] HospitalComtrinity health [facility] on above:Order Comment: Specimen Type: BLOOD SPECIMENOrdering Facility: [facility] Address:[address] [place], [place] [address]Performed By: #### 1952-1, 2885-2 ####[facility] LABCLIA [id number] [facility] [id number] STATES AMERICAPerformed By: #### 3084-1, 56025-1, 2777-1, 2532-0 ####[facility] LABCLIA [id number] [place], [place] [address]Truivwq [Mass/volume] in Serum or Plasmaon 05-10-2024 Protein [Mass/Vol]Protein [Mass/volume] in Serum or Plasma6.3-8.0Wilson HealthRBC Auto (Bld) [#/Vol]on 26-30-0911TXP (Bld) [#/Vol] Erythrocytes [#/volume] in Blood by Automated count4.20-6.00[facility] Hospitalerum ionized calcium measurement using ion specific electrode (mass/volume)on 62-94-3739Rrkbbpz.ionized ISE [Mass/Vol]Serum ionized calcium measurement using ion specific electrode (mass/volume)1.08-1.30[facility] Hospitalerum or plasma alpha 1 globulin measurement by electrophoresis (mass/volume)on 92-12-5124Crpsp 1 globulin Elph [Mass/Vol]Serum or plasma alpha 1 globulin measurement by electrophoresis (mass/volume)0.18-0.43 [facility] Hospitalerum or plasma alpha 2 globulin measurement by electrophoresis (mass/volume)on 60-95-6999Eqiil 2 globulin Elph [Mass/Vol]Serum or plasma alpha 2 globulin measurement by electrophoresis (mass/volume) 0.42-0.98[facility] Hospitalerum or plasma anion gap determinationon 82-00-5566Hdcar gap [Moles/Vol]Serum or plasma anion gap determination-[facility] Hospitalerum or plasma beta globulin measurement by electrophoresis (mass/volume)on 38-68-9594Korl globulin Elph [Mass/Vol]Serum or plasma beta globulin measurement by electrophoresis (mass/volume)0.61-1.17[facility] Hospitalerum or plasma igdv-3-eaxlwaosaikmo measurement (mass/volume)on 91-30-2713Clkv-2-Microglobulin [Mass/Vol]Serum or plasma wxre-6-nmtvcbcktnawa measurement (mass/volume)High<3.1 Wilson HealthComment on above:Beta-2 Microglobulin test is performed using the [employer] immunoturbidimetric method. Results obtained with different methods or kits cannot be used interchangeably.Serum or plasma gamma globulin measurement by electrophoresis (mass/volume)on 05-10-2024 Gamma globulin Elph [Mass/Vol]Serum or plasma gamma globulin measurement by electrophoresis (mass/volume)0.53-1.51Wilson HealthUrate SerPl-mCncon 86-19-3178Nccsk [Mass/Vol]5.3 mg/dLNormal4.0-8.1ClevelCone Health Alamance RegionalComment on above:Order Comment: Specimen Type: BLOOD SPECIMENOrdering Facility: [facility] Address:[address] [place], [place] [address]Performed By: #### 3084-1, 68733-1, 2777-1, 2532-0 ####[facility] LABCLIA [id number] [place], [place] [address]TPPSEBog 26-92-4228VSJTALMggvjfXqumujdcp Clinic ClevelandAlbumin [Mass/volume] in Serum or Plasmaon 52-26-4911Xccadlv [Mass/Vol]Albumin [Mass/volume] in Serum or Plasma 3.43-5.41Wilson HealthB2 Microglob SerPl-mCncon 02-02-2024 Jjvp-1-Pwdjpqoffrtua [Mass/Vol]3.3 ug/mLHigh<3.1CAccess Hospital [facility] Comment on above:Order Comment: Specimen Type: BLOOD SPECIMENOrdering Facility: [facility] Address:[address] [place], [place] [address]Result Comment: Beta-2 Microglobulin test is performed using the [employer] immunoturbidimetric method. Results obtained with different methods or kits cannot be used interchangeably.Performed By: #### 1952-1, 2885-2 ####[facility] LABCLIA [id number] EUCD WINTERSETDESK [address]DURMIPZONCHRISTINE V[place] [address] [place] OF AMERICABasophils Auto (Bld) [#/Vol]on 37-07-4796Omaaowiuu (Bld) [#/Vol]Automated basophil count<0.11[facility] Basophils/100 WBC Auto (Bld)on 51-71-9916Cuhmkizln/100 WBC (Bld)Automated basophil %Wilson HealthBlood manual differential comment interpretation narrativeon 58-29-6122Bjtqbm differential comment Augie (Bld) [Interp]Blood manual differential comment interpretation narrativeWilson HealthCBC W Auto Differential panel (Bld)on 93-42-1285Frpkvyyda (Bld) [#/Vol]0.03 10*3/uLNormal<0.11CGalion Hospital on above: Order Comment: Specimen Type: BLOOD SPECIMENOrdering Facility: [facility] Address:[address] [place], [place] [address]Performed By: #### 97215- 8 ####[facility] LABCLIA [id number] [place], [place] [address]Wxvsdvngp/100 WBC (Bld)0.5 %NormalOhio State East Hospital on above:Order Comment: Specimen Type: BLOOD SPECIMENOrdering Facility: [facility] Address:[address] [place], [place] [address]Performed By: #### 42477-3 ####[facility] LABCLIA [id number] [place], [place] [address]Jireugncsujo cell count method Nom (Bld)AutoNormalCGalion Hospital on above:Order Comment: Specimen Type: BLOOD SPECIMENOrdering Facility: [facility] Address:[address] [place], [place] [address]Performed By: #### 58078-9 ####[facility] LABCLIA [id number] [place], [place] [address]Zrwkgulhggn (Bld) [#/Vol]0.12 10*3/uLNormal<0.46[facility] on above:Order Comment: Specimen Type: BLOOD SPECIMENOrdering Facility: [facility] Address:[address] [place], [place] [address]Performed By: #### 69960-0 ####[facility] LABCLIA [id number] [place], [place] [address]Tmfiziryxqf/100 WBC (Bld)1.9 %NormalOhio State East Hospital on above:Order Comment: Specimen Type: BLOOD SPECIMENOrdering Facility: [facility] Address:[address] [place], [place] [address]Performed By: #### 20514-1 ####[facility] LABCLIA [id number] [place], [place] [address]Dwxwssxgkaq distribution width (RBC) [Ratio]12.3 %Normal 11.5-15.0[facility] on above:Order Comment: Specimen Type: BLOOD SPECIMENOrdering Facility: [facility] Address:[address] [place], [place] [address]Performed By: #### 41415-2 ####[facility] LABIA [id number] [place] [address] Hematocrit (Bld) [Volume fraction]40.7 %Ebpgaj27.0-51.0[facility] on above:Order Comment: Specimen Type: BLOOD SPECIMENOrdering Facility: [facility] Address:[address] [place], [place] [address]Performed By: #### 69507-0 ####[facility] LABIA [id number] [place], [place] [address]Wnnymziclf (Bld) [Mass/Vol]13.8 g/bLQbaqip49.0-17.0[facility] on above:Order Comment: Specimen Type: BLOOD SPECIMENOrdering Facility: [facility] Address:[address] [place], [place] [address]Performed By: #### 76839-0 ####[facility] LABCLIA [id number] [place], [place] [address]Hcajtske granulocytes (Bld) [#/Vol]10*3/uLNormal<0.10 [facility] on above:Order Comment: Specimen Type: BLOOD SPECIMENOrdering Facility: [facility] Address:[address] [place], [place] [address]Performed By: #### 16004-6 ####[facility] LABCLIA [id number] [place], [place] [address]Wayaexbq granulocytes/100 WBC (Bld)0.2 %[facility] on above: Order Comment: Specimen Type: BLOOD SPECIMENOrdering Facility: [facility] Address:[address] [place], [place] [address]Performed By: #### 65771- 8 ####[facility] LABCLIA [id number] [place], [place] [address]Gjsoovbpfxz (Bld) [#/Vol]1.48 10*3/uLNormal1.00-4.00 [facility] on above:Order Comment: Specimen Type: BLOOD SPECIMENOrdering Facility: [facility] Address:[address] [place], [place] [address]Performed By: #### 29934-6 ####[facility] LABCLIA [id number] [place], [place] [address]Wytopwkgrku/100 WBC (Bld)23.9 %[facility] on above:Order Comment: Specimen Type: BLOOD SPECIMENOrdering Facility: [facility] Address:[address] [place], [place] [address]Performed By: #### 59837-8 ####[facility] LABCLIA [id number] [place], [place] [address]BXL (RBC) [Entitic mass]30.8 guThwatt68.0-34.0[facility] on above:Order Comment: Specimen Type: BLOOD SPECIMENOrdering Facility: [facility] Address:[address] [place], [place] [address]Performed By: #### 47107-4 ####[facility] LABCLIA [id number] [place], [place] [address]MEXQ (RBC) [Mass/Vol]33.9 g/kQItozhq49.5-36.0[facility] on above: Order Comment: Specimen Type: BLOOD SPECIMENOrdering Facility: [facility] Address:[address] [place], [place] [address]Performed By: #### 58568- 8 ####[facility] LABCLIA [id number] [place], [place] [address]BAX (RBC) [Entitic vol]90.8 cQCxiamp70.0-100.0[facility] on above:Order Comment: Specimen Type: BLOOD SPECIMENOrdering Facility: [facility] Address:[address] [place], [place] [address]Performed By: #### 89853-8 ####[facility] LABCLIA [id number] [place], [place] [address]Dcguskndk (Bld) [#/Vol]0.56 10*3/uLNormal<0.87[facility] on above:Order Comment: Specimen Type: BLOOD SPECIMENOrdering Facility: [facility] Address:[address] [place], [place] [address]Performed By: #### 49385- 8 ####[facility] LABCLIA [id number] [place], [place] [address]Riiizgirv/100 WBC (Bld)9.1 %NormalOhio State East Hospital on above:Order Comment: Specimen Type: BLOOD SPECIMENOrdering Facility: [facility] Address:[address] [place], [place] [address]Performed By: #### 88252-3 ####[facility] LABCLIA [id number] [place], [place] [address]Uxwhlleesyu (Bld) [#/Vol]3.98 10*3/uLNormal1.45-7.50[facility] on above:Order Comment: Specimen Type: BLOOD SPECIMENOrdering Facility: [facility] Address:[address] [place], [place] [address]Performed By: #### 21024-9 ####[facility] LABCLIA [id number] [place], [place] [address]Xdyhudgtsoh/100 WBC (Bld)64.4 %NormalOhio State East Hospital on above:Order Comment: Specimen Type: BLOOD SPECIMENOrdering Facility: [facility] Address:[address] [place], [place] [address]Performed By: #### 39871-9 ####[facility] LABCLIA [id number] [place], [place] [address]Qvypsxkbf RBC (Bld) [#/Vol] 10*3/uLNormal<0.01[facility] on above:Order Comment: Specimen Type: BLOOD SPECIMENOrdering Facility: [facility] Address:[address] [place], [place] [address]Performed By: #### 95856-7 ####[facility] LABCLIA [id number] [place], [place] [address]Qoxabomof RBC/100 WBC (Bld) [Ratio]0.0 /100 WBCNormal [facility] on above:Order Comment: Specimen Type: BLOOD SPECIMENOrdering Facility: [facility] Address:[address] [place], [place] [address]Performed By: #### 31594-3 ####[facility] LABCLIA [id number] [place], [place] [address]Cgwvqisk mean volume (Bld) [Entitic vol]9.7 fLNormal9.0-12.7CGalion Hospital on above:Order Comment: Specimen Type: BLOOD SPECIMENOrdering Facility: [facility] Address:[address] [place] [address] Performed By: #### 36093-9 ####[facility] LABIA [id number] [place], [place] [address]Skaefnskg (Bld) [#/Vol]181 10*3/aCJvklhi426-558HmrupzrjzOhio State East Hospital on above:Order Comment: Specimen Type: BLOOD SPECIMENOrdering Facility: [facility] Address:[address] [place], [place] [address]Performed By: #### 85505-7 ####[facility] LABIA [id number] [place], [place] [address]LQZ (Bld) [#/Vol]4.48 10*6/uLNormal4.20-6.00[facility] on above:Order Comment: Specimen Type: BLOOD SPECIMENOrdering Facility: [facility] Address:[address] [place], [place] [address]Performed By: #### 39085-6 ####[facility] LABIA [id number] [place], [place] [address]CLV (Bld) [#/Vol]6.18 10*3/uLNormal3.70-11.00[facility] on above: Order Comment: Specimen Type: BLOOD SPECIMENOrdering Facility: [facility] Address:[address] [place], [place] [address]Performed By: #### 78834- 8 ####[facility] LABIA [id number] [place], [place] [address]Gyjtgiv.ionized [Moles/Vol]on 97-29-1294Iocdyff.ionized (Bld) [Mass/Vol]1.27 mmol/LNormal1.08-1.30[facility] on above:Order Comment: Specimen Type: BLOOD SPECIMENOrdering Facility: [facility] Address:[address] [place], [place] [address]Performed By: #### ####[facility] LABCLIA [id number] [address]ETCalcium.ionized adjusted to pH 7.4 (Bld) [Moles/Vol]1.23 mmol/LNormal1.08-1.30[facility] on above:Order Comment: Specimen Type: BLOOD SPECIMENOrdering Facility: [facility] Address:[address] [place], [place] [address]Performed By: #### ####[facility] LABCLIA [id number] [address] OF [facility] Comprehensive metabolic 2000 panelon 67-67-8102Efesamh [Mass/Vol]3.9 g/dLNormal 3.9-4.9CG[facility] on above:Order Comment: Specimen Type: BLOOD SPECIMENOrdering Facility: [facility] Address:[address] [place], [place] [address]Performed By: #### 2777-1, 90715-5, 3084-1, 2532-0 ####[facility] LABCLIA [id number] [place], [place] [address]KLL [Catalytic activity/Vol]84 U/UAmrpqf75-453KslzkxkqxOhio State East Hospital on above:Order Comment: Specimen Type: BLOOD SPECIMENOrdering Facility: [facility] Address:[address] [place], [place] [address]Performed By: #### 2777-1, 83828-3, 3084-1, 2532-0 ####[facility]ENTERM[facility] LABCLIA [id number] [place], [place] [address]TJW [Catalytic activity/Vol]20 U/MLjovdg49-25KvfhiecflOhio State East Hospital on above:Order Comment: Specimen Type: BLOOD SPECIMENOrdering Facility: [facility] Address:[address] [place], [place] [address]Performed By: #### 2777-1, 96074-6, 3084-1, 2532-0 ####[facility] LABCLIA [id number] [place], [place] [address]Wvdlo gap [Moles/Vol]12 mmol/LNormal8-15[facility] on above:Order Comment: Specimen Type: BLOOD SPECIMENOrdering Facility: [facility] Address:[address] [place], [place] [address]Performed By: #### 2777-1, 51247-3, 3084-, 2532-0 ####[facility] LABCLIA [id number] [place], [place] [address]XML [Catalytic activity/Vol]28 U/TAkacvp95-36CmqwhwufiOhio State East Hospital on above:Order Comment: Specimen Type: BLOOD SPECIMENOrdering Facility: [facility] Address:[address] [place], [place] [address]Performed By: #### 2777-1, 77296-0, 4-, 2532-0 ####[facility] LABCLIA [id number] [place], [place] [address]Heoxljxio [Mass/Vol]0.4 mg/dL Normal0.2-1.3CGalion [facility] on above:Order Comment: Specimen Type: BLOOD SPECIMENOrdering Facility: [facility] Address:[address] [place], [place] [address]Performed By: #### 2777-1, 48929-3, 3084-, 2532- 0 ####[facility] LABCLIA [id number] [place], [place] [address]Lmgibxx [Mass/Vol]9.2 mg/dLNormal8.5-10.2CG[facility] on above:Order Comment: Specimen Type: BLOOD SPECIMENOrdering Facility: [facility] Address:[address] [place] [address]Nkqetoojx By: #### 2777-1, 29588-4, 3084-1, 2532-0 ####[facility] LABCLIA [id number] [place], [place] [address]Yljwxvns [Moles/Vol]102 mmol/BMmwzfj95-470LfffbkgrdOhio State East Hospital on above: Order Comment: Specimen Type: BLOOD SPECIMENOrdering Facility: [facility] Address:[address] [place] [address]Zswmfixpn By: #### 2777- 1, 67653-5, 3084-1, 2532-0 ####[facility] LABCLIA [id number] [place], [place] [address]NX0 [Moles/Vol]21 mmol/CPjb99-95 [facility] on above:Order Comment: Specimen Type: BLOOD SPECIMENOrdering Facility: [facility] Address:[address] [place] [address]Pwvzmxpja By: #### 2777-1, 22216-7, 3084-1, 2532-0 ####[facility] LABCLIA [id number] [place], [place] [address]Cdyznkeshv [Mass/Vol]1.28 mg/dLHigh0.73-1.22[facility] on above:Order Comment: Specimen Type: BLOOD SPECIMENOrdering Facility: [facility] Address:[address] [place], [place] [address]Performed By: #### 2777-1, 68833-0, 3084-1, 2532-0 ####[facility] LABCLIA [id number] [place], [place] [address]Fpsnvwonqc and Glomerular filtration rate.predicted panel (S/P/Bld)56 mL/min/1.73m???Low>=60[facility] on above: Order Comment: Specimen Type: BLOOD SPECIMENOrdering Facility: [facility] Address:[address] [place], [place] [address]Mxisuq Comment: Estimated Glomerular Filtration Rate (eGFR) is calculated using the 2020 CKD-EPI cre atinine equation. This equation utilizes serum creatinine, sex, and age as parameters. The creatinine assay has traceable calibration to isotope dilution- mass spectrometry. Refer to KDIGO guidelines for clinical interpretation. In patients with unstable renal function, e.g. those with acute kidney injury, the eGFR may not accurately reflect actual GFR.Performed By: #### 2777-1, 14170-3, 3083-03, 2531-0 ####[facility] LABCLIA [id number] [place], [place] [address]Drgmvrf [Mass/Vol]261 mg/rGBxvo01-89 [facility] on above:Order Comment: Specimen Type: BLOOD SPECIMENOrdering Facility: [facility] Address:[address] [place] [address]Zecvhv Comment: The [place] Diabetes Association (ADA) provides guidance for cutoff [...] unequivocal hyperglycemia, results should be confirmed by repeattesting. In a patient with classic symptoms of hyperglycemia or hyperglycemic crisis, random plasmaglucose results greater than or equal to 200 mg/dL meet the criteria for diagnosis of diabetes.Reference: Standards of Medical Care in Diabetes 2016, [place] Diabetes Association. Diabetes Care. 2016.39(Suppl 1).Performed By: #### 2777-1, 01918-4, 3083-03, 2531-0 ####[facility] LABCLIA [id number] [place], [place] [address]Zhrhtajum [Moles/Vol]4.1 mmol/L Normal3.7-5.1CGalion Hospital on above:Order Comment: Specimen Type: BLOOD SPECIMENOrdering Facility: [facility] Address:[address] [place], [place] [address]Ctdrmigvh By: #### 2777-1, 59832-3, 3084-1, 2532- 0 ####[facility] LABCLIA [id number] [place], [place] [address]Ugbucau [Mass/Vol]7.1 g/dLNormal6.3-8.0[facility] on above:Order Comment: Specimen Type: BLOOD SPECIMENOrdering Facility: [facility] Address:[address] [place], [place] [address]Performed By: #### 2777-1, 35054-3, 3084-1, 2532-0 ####[facility] LABCLIA [id number] [place], [place] [address]Iijnny [Moles/Vol]135 mmol/WCok168-567UxdxefieiOhio State East Hospital on above:Order Comment: Specimen Type: BLOOD SPECIMENOrdering Facility: [facility] Address:[address] [place], [place] [address]Performed By: #### 2777- 1, 83274-6, 3084-1, 2532-0 ####[facility] LABCLIA [id number] [place], [place] [address]Riup nitrogen [Mass/Vol]15 mg/dL Normal9-24[facility] on above:Order Comment: Specimen Type: BLOOD SPECIMENOrdering Facility: [facility] Address:[address] [place], [place] [address]Performed By: #### 2777-1, 24788-1, 3084-1, 2532- 0 ####[facility] LABCLIA [id number] [place], [place] [address]Eclnxmkqhzg/100 WBC Auto (Bld)on 02-02-2024 Eosinophils/100 WBC (Bld)Automated eosinophil %[facility] Erythrocyte distribution width Auto (RBC) [Ratio]on 57-09-7742Duitlfnezbg distribution width (RBC) [Ratio]Erythrocyte distribution width [Ratio] by Automated count11.5-15.0Firpacoimas Regional Medical CenterHematocrit Auto (Bld) [Volume fraction]on 89-53-2865Nggatceqvp (Bld) [Volume fraction]Hematocrit [Volume Fraction] of Blood by Automated count39.0-51.0[facility] HealthHemoglobin [Mass/volume] in Bloodon 60-71-4940Frwvomsxit (Bld) [Mass/Vol] Hemoglobin [Mass/volume] in Blood13.0-17.0[facility] IMMUNOFIXATION SCREEN, SERUMon 50-53-5231ORFUBUPCAGXJLW (MPA)Atypical restricted bands are present in the IgG and kappa regions. Consistent with IgG kappa monoclonal gammopathy.NormalOhio State East Hospital on above:Order Comment: Specimen Type: BLOOD SPECIMENOrdering Facility: [facility] Address:[address] [place], [place] [address]Performed By: #### IFESC ####[facility] LABCLIA [id number] [place] [address] [place] OF AMERICAMPA RESULTM protein is present. AbnormalNo M protein is identified.[facility] on above: Order Comment: Specimen Type: BLOOD SPECIMENOrdering Facility: [facility] Address:[address] [place], [place] [address]Performed By: #### IFESC ####[facility] LABCLIA [id number] [place] [address] [place] OF AMERICASTAFF REVIEW (MPA)Reviewed by Dr. David Moss MDNormalCGalion Hospital on above:Order Comment: Specimen Type: BLOOD SPECIMENOrdering Facility: [facility] Address:[address] [place], [place] [address]Performed By: #### IFESC ####[facility] LABCLIA [id number] [place] [address] [place] OF AMERICAIMMUNOGLOBULINS,IGG,IGA,IGMon 14-86-2553VcF [Mass/Vol]258 mg/yESqyifj20-441Qfzxjhuxi Clinic ClevelandComment on above:Order Comment: Specimen Type: BLOOD SPECIMENOrdering Facility: [facility] Address:[address] [place] [address] Performed By: #### SERIMM ####[facility] LABCLIA [id number] [place] [address] [place] IgG [Mass/Vol]1277 mg/kPJzinvn955-9025TjwarzchoShelby Memorial HospitalComment on above:Order Comment: Specimen Type: BLOOD SPECIMENOrdering Facility: [facility] Address:[address] [place], [place] [address]Performed By: #### SERIMM ####[facility] LABCLIA [id number] [place] [address] [place] AMERICAIgM [Mass/Vol]316 mg/dL Bptm49-997SbijnauvqShelby Memorial HospitalComment on above:Order Comment: Specimen Type: BLOOD SPECIMENOrdering Facility: [facility] Address:[address] [place], [place] [address]Performed By: #### SERIMM ####[facility] LABCLIA [id number] [place] [address] [place] AMERICAIgA [Mass/volume] in Serum or Plasmaon 96-41-2714WuW [Mass/Vol]IgA [Mass/volume] in Serum or Pcqxeg77-695JvhpwufasWilson HealthIgG [Mass/volume] in Serum or Plasmaon 52-52-2603JgR [Mass/Vol]IgG [Mass/volume] in Serum or Ksvrpr547-5484KkeopdoozWilson HealthIgM [Mass/volume] in Serum or Plasmaon 75-26-1169CfC [Mass/Vol]IgM [Mass/volume] in Serum or TamakyMxco32-410OnfprhiwjWilson HealthImmunoglobulin light chains.kappa.free [Mass/volume] in Serumon 41-52-3992Oiaacsoejxtnuq light chains.kappa.free (S) [Mass/Vol]Immunoglobulin light chains.kappa.free [Mass/volume] in SerumHigh3.3-19.4FOhioHealth Nelsonville Health CenterComment on above:Rarely, increased serum free light chains levels may not be detected or accurately quantified due to prozone phenomenon or in high viscosity samples using this immunoturbidimetric assay. Correlation with other laboratory results and clinical findings is recommended. The [place] Free Light Chain was performed using the Binding Site Optilite immunoturbidimetric method. Result obtained with different assay methods or kits cannot be used interchangeably.Immunoglobulin light chains.kappa.free/Immunoglobulin light chains.lambda.free [Bowen 47-24-9340Jdgbwbachqkqeq light chains.kappa.free/Immunoglobulin light chains.lambda.free (S) [Mass ratio]Immunoglobulin light chains.kappa.free/Immunoglobulin light chains.lambda.free [MassHigh0.26-1.65 Wilson HealthImmunoglobulin light chains.lambda.free [Mass/volume] in Serum or Plasmaon 56-42-9147Zpvglfwuhholjj light chains.lambda.free [Mass/Vol]Immunoglobulin light chains.lambda.free [Mass/volume] in Serum or PlasmaHigh5.7-26.3FOhioHealth Nelsonville Health Center Comment on above:Rarely, increased serum free light chains levels may not be detected or accurately quantified due to prozone phenomenon or in high viscosity samples using this immunoturbidimetric assay. Correlation with other laboratory results and clinical findings is recommended. The Lambda Free Light Chain was p erformed using the Binding Site Optilite immunoturbidimetric method. Result obtained with differentassay methods or kits cannot be used interchangeably. KAPPA/COTA,FREE,SERon 06-75-1939Afogyeakkekvds light chains.kappa.free (S) [Mass/Vol]109.2 mg/LHigh3.3-19.4CChildren's Hospital for Rehabilitationment on above:Order Comment: Specimen Type: BLOOD SPECIMENOrdering Facility: [facility] Address:[address] [place] [id number] Comment: Rarely, increased serum free light chains levels may not be detected or accurately q uantified due to prozone phenomenon or in high viscosity samples using this immunoturbidimetric assay. Correlation with other laboratory results and clinical findings is recommended.The [place] Free Light Chain was performed using the Binding Site Optilite immunoturbidimetric method. Result obtained with different assay methods or kits cannot be used interchangeably.Performed By: #### KLFRS ####[facility] LABCLIA [id number] [place] [address] [place] AMERICAImmunoglobulin light chains.kappa/Immunoglobulin light chains.lambda (S) [Mass ratio]2.42High 0.26-1.65[facility] on above:Order Comment: Specimen Type: BLOOD SPECIMENOrdering Facility: [facility] Address:[address] [place], [place] [address]Performed By: #### KLFRS ####[facility] LABIA [id number] [place] [address] [place] AMERICAImmunoglobulin light chains.lambda.free [Mass/Vol]45.1 mg/LHigh5.7-26.3CGalion Hospital on above:Order Comment: Specimen Type: BLOOD SPECIMENOrdering Facility: [facility] Address:[address] [place], [place] [address]Result Comment: Rarely, increased serum free light chains levels may not be detected or accurately quantified due to prozone phenomenon or in high viscosity samples using this immunoturbidimetric assay. Correlation with other laboratory results and clinical findings is recommended.The Lambda Free Light Chain was performed using the Binding Site Optilite immunoturbidimetric method. Result obtainedwith different assay methods or kits cannot be used interchangeably.Performed By: #### KLFRS ####[facility] LABIA [id number] [place] [address] [place] AMERICALDH SerPl-cCncon 53-52-7677EAT [Catalytic activity/Vol]136 U/PUupqgf301-557UupdqynnwOhio State East Hospital on above:Order Comment: Specimen Type: BLOOD SPECIMENOrdering Facility: [facility] Address:[address] [place], [place] [address]Performed By: #### 2777-1, 74151-1, 3084-1, 2532-0 ####[facility] LABCLIA [id number] [place] [address] Laboratory - Chemistry and Chemistry - challengeon 63-43-1642Sgzdmcl [Mass/Vol] 3.9 g/dL3.9-4.9Wilson HealthALP [Catalytic activity/Vol]84 U/R08-325LetjayjypWilson HealthALT [Catalytic activity/Vol]20 U/L 10-54Wilson HealthAST [Catalytic activity/Vol]28 U/L14-40 Wilson HealthBilirubin [Mass/Vol]0.4 mg/dL0.2-1.3FOhioHealth Nelsonville Health CenterCalcium [Mass/Vol]9.2 mg/dL8.5-10.2FOhioHealth Nelsonville Health CenterChloride [Moles/Vol]102 mmol/G09-755KpcrluupiWilson HealthCO2 [Moles/Vol]21 mmol/DPaz85-64HxxzzhywiWilson Health Creatinine [Mass/Vol]1.28 mg/dLHigh0.73-1.22[facility] Glucose [Mass/Vol]261 mg/yLHnwi43-34PcgixccpvWilson HealthComment on above:The [place] Diabetes Association (ADA) provides guidance for cutoff values for fasting glucose andrandom glucose. The ADA defines fasting as no [...] hyperglycemia or hyperglycemic crisis, random plasma glucose resultsgreater than or equal to 200 mg/dL meet the criteria for diagnosis of diabetes.Reference: Standardsof Medical Care in Diabetes 2016, [place] Diabetes Association. Diabetes Care. 2016.39(Suppl 1).LDH [Catalytic activity/Vol]136 U/D459-350 Wilson HealthPotassium [Moles/Vol]4.1 mmol/L3.7-5.1FOhioHealth Nelsonville Health CenterProtein [Mass/Vol]0.51 g/dLHigh<=0.00Western Reserve Hospitalodium [Moles/Vol]135 mmol/SLwg063-210AiuvnbhgjWilson HealthUrate [Mass/Vol]4.9 mg/dL4.0-8.1FOhioHealth Nelsonville Health CenterUrea nitrogen [Mass/Vol]15 mg/dL9-24Wilson HealthLaboratory - Hematology and Cell countson 79-86-7607Atefrmvkifw (Bld) [#/Vol]0.12 10*3/uL <0.46Wilson HealthImmature granulocytes/100 WBC (Bld)0.2 % Wilson HealthLeukocytes [#/volume] corrected for nucleated erythrocytes in Blood by Automated counon 92-54-9451LCO corrected for nucl RBC Auto (Bld) [#/Vol]Leukocytes [#/volume] corrected for nucleated erythrocytes in Blood by Automated coun3.70-11.00Wilson HealthLymphocytes Auto (Bld) [#/Vol]on 86-58-3851Arvbcnvfgam (Bld) [#/Vol]Lymphocytes [#/volume] in Blood by Automated count1.00-4.00[facility] Lymphocytes/100 WBC Auto (Bld)on 82-65-2654Djpirudojcz/100 WBC (Bld) Lymphocytes/100 leukocytes in Blood by Automated countUniversity Hospitals Health SystemH Auto (RBC) [Entitic mass]on 16-91-7136OAS (RBC) [Entitic mass]MCH [Entitic mass] by Automated count26.0-34.0Wilson HealthMCHC Auto (RBC) [Mass/Vol]on 67-48-0416BXVQ (RBC) [Mass/Vol]MCHC [Mass/volume] by Automated count30.5-36.0Wilson HealthMCV Auto (RBC) [Entitic vol]on 78-70-3949YBN (RBC) [Entitic vol]MCV [Entitic volume] by Automated count 80.0-100.0Wilson HealthMonocytes Auto (Bld) [#/Vol]on 09-32-4301Ynqicyfpn (Bld) [#/Vol]Automated blood monocyte count<0.87Wilson HealthMonocytes/100 WBC Auto (Bld)on 68-83-2448Nudyaoggr/100 WBC (Bld)Automated monocyte %Wilson HealthNeutrophils Auto (Bld) [#/Vol]on 89-00-1256Lncqwsscojr (Bld) [#/Vol]Neutrophils [#/volume] in Blood by Automated count1.45-7.50[facility] Neutrophils/100 WBC Auto (Bld)on 92-64-1141Jeewypoqmlq/100 WBC (Bld)Automated neutrophil %Wilson HealthNo Panel Informationon 02-02-2024 Estimated GFR (CKD-EPI)56 mL/min/1.73m???Low>=60Wilson HealthComment on above:Estimated Glomerular Filtration Rate (eGFR) is calculated using the 2020 CKD-EPI creatinine equation. This equation utilizes serum creatinine, sex, and age as parameters. The creatinine assay has traceable calibration to isotope dilution-mass spectrometry. Refer to KDIGO guidelines for clinical interpretation. In patients with unstable renal function, e.g. those with acute kidney injury, the eGFRmay not accurately reflect actual GFR.Immature Granulocyte # (Auto)<0.03 k/uL<0.10[facility] Immunofixation InterpretationWilson HealthIonized Calcium (pH Adjusted)1.23 mmol/L1.08-1.30Wilson HealthLeuk/Lymph Sign Pathologist (Misc)Reviewed by Dr. David Moss MDWilson HealthMiscellaneous Test 6Gamma Fraction 1FOhioHealth Nelsonville Health CenterMiscellaneous Test CommentReviewed by Dr. David Msos Kettering Memorial HospitalPhosphorus Level2.5 mg/dLLow2.7-4.8Wilson HealthProtein Electrophoresis InterpretSee commentWilson HealthComment on above:M protein is present on the background of a polyclonal immunoglobulin population. Quantitation of the M protein may overestimate the amount of M protein present.See separate immunofixation report forcharacterization of monoclonal gammopathy.Protein Electrophoresis NoteAn M protein is identified on protein electrophoresis.AbnormalNo definitive M protein is identified on protein electrophoresis.Western Reserve Hospitalerum ImmunofixationM protein is present.AbnormalNo M protein is identified.Wilson HealthNucleated RBC Auto (Bld) [#/Vol]on 27-60-2971Usvnbixod RBC (Bld) [#/Vol]Nucleated erythrocytes [#/volume] in Blood by Automated count <0.01Wilson HealthNucleated erythrocytes [Presence] in Blood by Automated counton 87-29-0288Ntolaqoce RBC Auto Ql (Bld)Nucleated erythrocytes [Presence] in Blood by Automated countWilson HealthPROTEIN ELECTROPHORESIS SERUM (P)on 76-43-0525Wqhblya [Mass/Vol]3.64 g/dL Normal3.43-5.41[facility] on above:Order Comment: Specimen Type: BLOOD SPECIMENOrdering Facility: [facility] Address:[address] [place], [place] [address]Performed By: #### [id number] ####[facility] LABIA [id number] [address] STATES OF [facility] HOSPITALAlpha 1 globulin Elph [Mass/Vol] 0.26 g/dLNormal0.18-0.43[facility] on above:Order Comment: Specimen Type: BLOOD SPECIMENOrdering Facility: [facility] Address:[address] [place], [place] [address]Performed By: #### [id number] ####[facility] LABIA [id number] [address] STATES OF AMERICAAlpha 2 globulin Elph [Mass/Vol]0.73 g/dLNormal0.42-0.98[facility] on above: Order Comment: Specimen Type: BLOOD SPECIMENOrdering Facility: [facility] Address:[address] [place], [place] [address]Performed By: #### [id number] ####[facility] LABIA [id number] [address] STATES OF AMERICABeta globulin Elph [Mass/Vol]0.89 g/dLNormal0.61-1.17[facility] on above: Order Comment: Specimen Type: BLOOD SPECIMENOrdering Facility: [facility] Address:[address] [place], [place] [address]Performed By: #### [id number] ####[facility] LABIA [id number] [place] [address] [place] AMERICAGamma globulin Elph [Mass/Vol]1.28 g/dLNormal0.53-1.51[facility] on above: Order Comment: Specimen Type: BLOOD SPECIMENOrdering Facility: [facility] Address:[address] [place], [place] [address]Performed By: #### [id number] ####[facility] HOSPITALIA [id number] [place] [address] [place] OF AMERICAINTERPRETATION COMMENT FOR PROTEIN ELECTROPHORESISNormalCGalion Hospital on above: Order Comment: Specimen Type: BLOOD SPECIMENOrdering Facility: [facility] Address:[address] [place], [place] [address]Result Comment: M protein is present on the background of a polyclonal immunoglobulin population. Qu antitation of the M protein may overestimate the amount of M protein present.See separate immunofixation report for characterization of monoclonal gammopathy. Performed By: #### [id number] ####[facility] [id number] [place] [address] [place] M-PROTEIN LOCATIONGamma Fraction 1NormalOhio State East Hospital on above:Order Comment: Specimen Type: BLOOD SPECIMENOrdering Facility: [facility] Address:[address] [place], [place] [address]Performed By: #### [id number] ####[facility] [id number] [place] [address] [place] AMERICAProtein Fractions [Interp]An M protein is identified on protein electrophoresis.AbnormalNo definitive M protein is identified on protein electrophoresis.[facility] on above:Order Comment: Specimen Type: BLOOD SPECIMENOrdering Facility: [facility] Address:[address] [place], [place] [address]Performed By: #### [id number] ####[facility] [id number] [place] [address] [place] Protein.monoclonal Elph [Mass/Vol]0.51 g/dLHigh<=0.00[facility] Comment on above:Order Comment: Specimen Type: BLOOD SPECIMENOrdering Facility: [facility] Address:[address] [place] [address] Performed By: #### [id number] ####[facility] LABCLIA [id number] [address] [place] SPE STAFF REVIEWReviewed by Dr. David Moss MDNormalCAccess Hospital Dayton Comment on above:Order Comment: Specimen Type: BLOOD SPECIMENOrdering Facility: [facility] Address:[address] [place] [address] Performed By: #### [id number] ####[facility] LABCLIA [id number] [address] [place] Phosphate SerPl-mCncon 45-03-5132Gzovfuhos [Mass/Vol]2.5 mg/dLLow2.7-4.8 [facility] HospitalComment on above:Order Comment: Specimen Type: BLOOD SPECIMENOrdering Facility: [facility] Address:[address] [place], [place] [address]Performed By: #### 2777-1, 44476-6, 3084-1, 2532-0 ####[facility] LABCLIA [id number] [place], [place] [address]Itexwucp mean volume Auto (Bld) [Entitic vol]on 50-18-6748Zdjyyqyi mean volume (Bld) [Entitic vol]Platelet mean volume [Entitic volume] in Blood by Automated count9.0-12.7FOhioHealth Nelsonville Health Center Platelets Auto (Bld) [#/Vol]on 43-07-4340Fbybkwfcd (Bld) [#/Vol]Platelets [#/volume] in Blood by Automated -206BtqmiousdWilson Health Prot SerPl-mCncon 23-96-0134Rfrgwlq [Mass/Vol]6.8 g/dLNormal6.3-8.0[facility] on above:Order Comment: Specimen Type: BLOOD SPECIMENOrdering Facility: [facility] Address:[address] [place]P[facility] [place], [place] [address]Performed By: #### 1952-1, 2885-2 ####[facility] LABCLIA [id number] JACQUELINE LOPEZDESK [address]07[place] [address] [place] AMERICAProtein [Mass/volume] in Serum or Plasmaon 35-30-0260Sssfxfh [Mass/Vol]Protein [Mass/volume] in Serum or Plasma6.3-8.0Wilson HealthRBC Auto (Bld) [#/Vol]on 71-58-3425WUX (Bld) [#/Vol]Erythrocytes [#/volume] in Blood by Automated count4.20-6.00[facility] Serum ionized calcium measurement using ion specific electrode (mass/volume)on 16-32-2669Ndqrres.ionized ISE [Mass/Vol]Serum ionized calcium measurement using ion specific electrode (mass/volume)1.08-1.30[facility] Serum or plasma alpha 1 globulin measurement by electrophoresis (mass/volume)on 15-31-7396Irqfz 1 globulin Elph [Mass/Vol]Serum or plasma alpha 1 globulin measurement by electrophoresis (mass/volume)0.18-0.43[facility] Reserve Hospitalerum or plasma alpha 2 globulin measurement by electrophoresis (mass/volume)on 71-08-5375Jasiu 2 globulin Elph [Mass/Vol]Serum or plasma alpha 2 globulin measurement by electrophoresis (mass/volume)0.42-0.98[facility] Hospitalerum or plasma anion gap determinationon 54-31-2601Evnyp gap [Moles/Vol]Serum or plasma anion gap determination8-15Western Reserve Hospitalerum or plasma beta globulin measurement by electrophoresis (mass/volume)on 05-31-5548Tsxv globulin Elph [Mass/Vol]Serum or plasma beta globulin measurement by electrophoresis (mass/volume)0.61-1.17[facility] Hospitalerum or plasma jhwv-7-utiowjmfkhvrf measurement (mass/volume)on 80-08-6941Gagg-2-Microglobulin [Mass/Vol]Serum or plasma xmjh-9-wqrgdnczfilpl measurement (mass/volume)High<3.1FOhioHealth Nelsonville Health CenterComment on above:Beta-2 Microglobulin test is performed using the [employer] immunoturbidimetric method. Results obtained with different methods or kits cannot be used interchangeably.Serum or plasma gamma globulin measurement by electrophoresis (mass/volume)on 71-38-1361Qqcgl globulin Elph [Mass/Vol]Serum or plasma gamma globulin measurement by electrophoresis (mass/volume)0.53-1.51 Wilson HealthUrate SerPl-mCncon 43-99-1167Mdxqt [Mass/Vol] 4.9 mg/dLNormal4.0-8.1CAccess Hospital DaytonComment on above:Order Comment: Specimen Type: BLOOD SPECIMENOrdering Facility: [facility] Address:[address] [place], [place] [address]Performed By: #### 2777-1, 34923-5, 3084-1, 2532-0 ####[facility] LABCLIA [id number] [place], [place] [address]Erknlcg [Mass/volume] in Serum or Plasmaon 75-06-0191Klrzitr [Mass/Vol]3.56 g/dL3.43-5.41[facility] Basophils Auto (Bld) [#/Vol]on 92-56-2657Zslfljxtu (Bld) [#/Vol]0.03 10*3/uL <0.11Wilson HealthBasophils/100 WBC Auto (Bld)on 11-03-2023 Basophils/100 WBC (Bld)0.5 %Wilson HealthBlood manual differential comment interpretation narrativeon 28-96-6753Uxlany differential comment Augie (Bld) [Interp]AutoWilson HealthEosinophils/100 WBC Auto (Bld)on 30-49-5198Mfyiplbmrfz/100 WBC (Bld)1.3 %Wilson HealthErythrocyte distribution width Auto (RBC) [Ratio]on 11-03-2023 Erythrocyte distribution width (RBC) [Ratio]12.9 %11.5-15.0[facility] Medical CenterHematocrit Auto (Bld) [Volume fraction]on 10-15-7168Kxovzqkhxx (Bld) [Volume fraction]40.3 %39.0-51.0[facility] Hemoglobin [Mass/volume] in Bloodon 60-02-3577Zthaxgwlyx (Bld) [Mass/Vol]13.5 g/dL13.0-17.0Wilson HealthIgA [Mass/volume] in Serum or Plasmaon 31-40-8053AhM [Mass/Vol]244 mg/aT93-972HxtkkbifwWilson HealthIgG [Mass/volume] in Serum or Plasmaon 42-39-4776NpD [Mass/Vol]1253 mg/dL 700-1600Wilson HealthIgM [Mass/volume] in Serum or Plasmaon 28-11-9066RiY [Mass/Vol]326 mg/fDQapv35-134SeaqifmorWilson Health Immunoglobulin light chains.kappa.free [Mass/volume] in Serumon 11-03-2023 Immunoglobulin light chains.kappa.free (S) [Mass/Vol]114.9 mg/LHigh3.3-19.4 Wilson HealthComment on above:Rarely, increased serum free light chains levels may not be detected or accurately quantified due to prozone phenomenon or in high viscosity samples using this immunoturbidimetric assay. Correlation with other laboratory results and clinical findings is recommended. The [place] Free Light Chain was performed using the Binding Site Optilite immunoturbidimetric method. Result obtained with different assay methods or kits cannot be used interchangeably.Immunoglobulin light chains.kappa.free/Immunoglobulin light chains.lambda.free [Bowen 11-03-2023 Immunoglobulin light chains.kappa.free/Immunoglobulin light chains.lambda.free (S) [Mass ratio]2.02Otnq4.26-1.65Wilson HealthImmunoglobulin light chains.lambda.free [Mass/volume] in Serum or Plasmaon 11-03-2023 Immunoglobulin light chains.lambda.free [Mass/Vol]49.3 mg/LHigh5.7-26.3FOhioHealth Nelsonville Health CenterComment on above:Rarely, increased serum free light chains levels may not be detected or accurately quantified due to prozone phenomenon or in high viscosity samples using this immunoturbidimetric assay. Correlation with other laboratory results and clinical findings is recommended. The Lambda Free Light Chain was performed using the Binding Site Optilite immunoturbidimetric method. Result obtained with differentassay methods or kits cannot be used interchangeably.Laboratory - Chemistry and Chemistry - challenge on 37-82-0387Usgxgqd [Mass/Vol]3.8 g/dLLow3.9-4.9Wilson HealthALP [Catalytic activity/Vol]84 U/S12-510OeaitibhpWilson Health ALT [Catalytic activity/Vol]26 U/X43-43FgijldueaWilson HealthAST [Catalytic activity/Vol]29 U/S80-34WddtiejnjWilson HealthBilirubin [Mass/Vol]0.4 mg/dL0.2-1.3FOhioHealth Nelsonville Health CenterCalcium [Mass/Vol]9.7 mg/dL8.5-10.2FOhioHealth Nelsonville Health CenterChloride [Moles/Vol]104 mmol/L 98-107Wilson HealthCO2 [Moles/Vol]25 mmol/C32-19LvwpmlricWilson HealthCreatinine [Mass/Vol]1.41 mg/dLHigh0.73-1.22Wilson HealthGlucose [Mass/Vol]280 mg/uTJisc52-55PhocspgazWilson HealthComment on above:The [place] Diabetes Association (ADA) provides guidance for cutoff values for fasting glucose andrandom glucose. The ADA defines fasting as no caloric intake for at least 8 hours. Fasting plasma gl ucose results between 100 to 125 mg/dL indicate increased risk for diabetes (prediabetes).Fasting plasma glucose results greater than or equal to 126 mg/dL meet the criteria for diagnosis of diabetes. In the absence of unequivocal hyperglycemia, results should be confirmed by repeat testing. In a patient with classic symptoms of hyperglycemia or hyperglycemic crisis, random plasma glucose resultsgreater than or equal to 200 mg/dL meet the criteria for diagnosis of diabetes.Reference: Standardsof Medical Care in Diabetes 2016, [place] Diabetes Association. Diabetes Care. 2016.39(Suppl 1).LDH [Catalytic activity/Vol]142 U/Y386-269DfuqsnbpcWilson HealthComment on above:Hemolysis present. The origin of the hemolysis, in vitro versus an in vivo hemolytic process, cannot be distinguished via this assay alone. In vitro hemolysis may lead to non-physiological (spurious)elevation in lactate dehydrogenase (LDH) results. The result should be interpreted in context of the clinical setting and other test results. Suggest reorder as clinically indicated.Potassium [Moles/Vol]4.6 mmol/L3.7-5.1FOhioHealth Nelsonville Health CenterProtein [Mass/Vol]0.42 g/dLHigh <=0.00Western Reserve Hospitalodium [Moles/Vol]138 mmol/L678-587 Wilson HealthUrate [Mass/Vol]5.4 mg/dL4.0-8.1FOhioHealth Nelsonville Health CenterUrea nitrogen [Mass/Vol]21 mg/dL9-24Wilson HealthLaboratory - Hematology and Cell countson 27-51-8033Ohyjayubllb (Bld) [#/Vol]0.08 10*3/uL<0.46Wilson HealthImmature granulocytes/100 WBC (Bld)0.3 %Wilson HealthLeukocytes [#/volume] corrected for nucleated erythrocytes in Blood by Automated counon 12-04-8820MVH corrected for nucl RBC Auto (Bld) [#/Vol]6.24 k/uL3.70-11.00 Wilson HealthLymphocytes Auto (Bld) [#/Vol]on 11-03-2023 Lymphocytes (Bld) [#/Vol]1.49 10*3/uL1.00-4.00[facility] Lymphocytes/100 WBC Auto (Bld)on 75-11-4376Xismmndsicn/100 WBC (Bld)23.9 % [facility] SystemH Auto (RBC) [Entitic mass]on 45-82-6405SVZ (RBC) [Entitic mass]31.2 pg26.0-34.0Wilson HealthMCHC Auto (RBC) [Mass/Vol]on 31-35-5629TUFX (RBC) [Mass/Vol]33.5 g/dL30.5-36.0Wilson HealthMCV Auto (RBC) [Entitic vol]on 96-74-5628QSV (RBC) [Entitic vol]93.1 fL80.0-100.0Wilson HealthMonocytes Auto (Bld) [#/Vol]on 55-90-1461Exbccdcki (Bld) [#/Vol]0.62 10*3/uL<0.87Wilson HealthMonocytes/100 WBC Auto (Bld)on 90-91-7416Wrmbtaxhh/100 WBC (Bld)9.9 %Wilson HealthNeutrophils Auto (Bld) [#/Vol]on 15-78-6234Njzkcwkylsb (Bld) [#/Vol]4.00 10*3/uL1.45-7.50Wilson HealthNeutrophils/100 WBC Auto (Bld)on 24-59-4785Pppftmqkdql/100 WBC (Bld)64.1 %Wilson HealthNo Panel Informationon 11-03-2023 Estimated GFR (CKD-EPI)50 mL/min/1.73m???Low>=60Wilson HealthComment on above:Estimated Glomerular Filtration Rate (eGFR) is calculated using the 2020 CKD-EPI creatinine equation. This equation utilizes serum creatinine, sex, and age as parameters. The creatinine assay has traceable calibration to isotope dilution-mass spectrometry. Refer to KDIGO guidelines for clinical interpretation. In patients with unstable renal function, e.g. those with acute kidney injury, the eGFRmay not accurately reflect actual GFR.Immature Granulocyte # (Auto)<0.03 k/uL<0.10[facility] Immunofixation InterpretationWilson HealthIonized Calcium (pH Adjusted)1.24 mmol/L1.08-1.30Wilson HealthLeuk/Lymph Sign Pathologist (Misc)Reviewed by Kira Reyes MDWilson HealthMiscellaneous Test 6Gamma Fraction 1FOhioHealth Nelsonville Health Center Miscellaneous Test CommentReviewed by Kira Reyes MDWilson HealthPhosphorus Level2.9 mg/dL2.7-4.8[facility] Protein Electrophoresis InterpretSee commentWilson Health Comment on above:See separate immunofixation report for characterization of monoclonal gammopathy.M protein is present on the background of a polyclonal immunoglobulin population. Quantitation of the M protein may overestimate the amount of M protein present.Protein Electrophoresis NoteAn M protein is identified on protein electrophoresis.AbnormalNo definitive M protein is identified on protein electrophoresis.Western Reserve Hospitalerum ImmunofixationM protein is present.AbnormalNo M protein is identified.Wilson HealthNucleated RBC Auto (Bld) [#/Vol]on 70-79-9811Razpnqdmr RBC (Bld) [#/Vol]10*3/uL<0.01Wilson HealthNucleated erythrocytes [Presence] in Blood by Automated counton 75-95-5830Pqfmqhbto RBC Auto Ql (Bld)0.0 /100{WBC}Wilson HealthPlatelet mean volume Auto (Bld) [Entitic vol]on 36-28-0002Tzlprimc mean volume (Bld) [Entitic vol]9.7 fL9.0-12.7FOhioHealth Nelsonville Health CenterPlatelets Auto (Bld) [#/Vol]on 19-71-9083Rsdantezm (Bld) [#/Vol]200 10*3/sB594-645NpfqjcknsWilson HealthProtein [Mass/volume] in Serum or Plasmaon 80-42-1011Ldjbeow [Mass/Vol]6.6 g/dL6.3-8.0Wilson HealthRBC Auto (Bld) [#/Vol]on 11-03-2023 RBC (Bld) [#/Vol]4.33 10*6/uL4.20-6.00[facility] Hospitalerum ionized calcium measurement using ion specific electrode (mass/volume)on 85-87-8835Bymxlwh.ionized ISE [Mass/Vol]1.28 mmol/L1.08-1.30[facility] Hospitalerum or plasma alpha 1 globulin measurement by electrophoresis (mass/volume)on 11-10-4433Oqscr 1 globulin Elph [Mass/Vol]0.25 g/dL0.18-0.43 [facility] Hospitalerum or plasma alpha 2 globulin measurement by electrophoresis (mass/volume)on 20-39-4881Rusec 2 globulin Elph [Mass/Vol]0.69 g/dL0.42-0.98[facility] Hospitalerum or plasma anion gap determinationon 25-81-1731Lhvie gap [Moles/Vol]9 mmol/L8-15[facility] Hospitalerum or plasma beta globulin measurement by electrophoresis (mass/volume)on 09-23-2225Yxbj globulin Elph [Mass/Vol]0.91 g/dL0.61-1.17 [facility] Hospitalerum or plasma jtly-6-dyqofvzvkgxbn measurement (mass/volume)on 67-00-2352Yviz-2-Microglobulin [Mass/Vol]4.3 ug/mL High<3.1FOhioHealth Nelsonville Health CenterComment on above:Beta-2 Microglobulin test is performed using the [employer] immunoturbidimetric method. Resul ts obtained with different methods or kits cannot be used interchangeably.Serum or plasma gamma globulin measurement by electrophoresis (mass/volume)on 21-31-4879Dxcoc globulin Elph [Mass/Vol]1.19 g/dL0.53-1.51Wilson HealthGlucose mean value [Mass/volume] in Blood Estimated from glycated hemoglobinon 72-98-9114Npwvmvp glucose Estimated from glycated hemoglobin (Bld) [Mass/Vol]194 mg/dLWilson HealthLaboratory - Hematology and Cell countson 88-96-5696XgZ5p (Bld) [Mass fraction]8.4 %High4.5-6.2FOhioHealth Nelsonville Health CenterComment on above:ADA RECOMMENDED LIMIT 4.0 - 6.0ADA THERAPEUTIC TARGET < 7.0ACTION SUGGESTED> 7.0PET+CT Whole body Bone W 18F-NaF IV on 49-33-3331ODIBKXLTEQ: HEAD/NECK: * No FDG avid neoplastic process. [...] any questions regarding this interpretation, please call [phone]. If you are unable to reach us at the number above, please feel free to contact [facility] at [phone].DIVISION OF RADIOLOGY* * *Final Report* * * DATE OF [...] * Radiopharmaceutical Dose: 17.6 mCi * Radiopharmaceutical: Z51-Opxcjhazzvlaafyykk (FDG) COMPARISON: 12/05/2016 CORRELATION: CT spine 05/26/2019 RESULT: REFERENCES: SUV reference values: * Blood pool (descending aorta) activity: SUVmax 2.7 * Background liver activity: SUVmax 3.6 Auto Motor Mechanic (topogram) images: Unremarkable. Notes and limitations: * [...] no definite evidence of focal abnormalities Neck & Lymph Nodes: No abnormal uptake. Thyroid: No abnormal uptake. CHEST: Lungs & Airways: No abnormal uptake. Pleura & Pericardium: No abnormal uptake. Cardiovascular: No abnormal uptake. Coronary artery calcifications. Mediastinum & Lymph Nodes: No abnormal uptake. ABDOMEN AND PELVIS: Hepatobiliary: No abnormal uptake. Cholelithiasis. Spleen: No abnormal uptake. No splenomegaly. Pancreas: No abnormal uptake. Adrenals: No abnormal uptake. Urinary Tract: No abnormal uptake. GI Tract: No abnormal uptake. Peritoneum: No abnormal uptake. Vasculature: No abnormal uptake. Retroperitoneum & Lymph Nodes: No abnormal uptake. Pelvis: No abnormal uptake. MUSCULOSKELETAL: Osseous: No abnormal uptake. L1 vertebroplasty Soft Tissues: No abnormal uptake. DIVISION OF RADIOLOGYProvider, [facility] [place] - 09/05/2023 * * *Final Report* * * DATE [...] * Radiopharmaceutical Dose: 17.6 mCi * Radiopharmaceutical: [id number] (FDG) COMPARISON: 12/05/2016 CORRELATION: CT spine 05/26/2019 RESULT: REFERENCES: SUV reference values: * Blood pool (descending aorta) activity: SUVmax 2.7 * Background liver activity: SUVmax 3.6 Auto Motor Mechanic (topogram) images: Unremarkable. Notes and limitations: * [...] no definite evidence of focal abnormalities Neck & Lymph Nodes: No abnormal uptake. Thyroid: No abnormal uptake. CHEST: Lungs & Airways: No abnormal uptake. Pleura & Pericardium: No abnormal uptake. Cardiovascular: No abnormal uptake. Coronary artery calcifications. Mediastinum & Lymph Nodes: No abnormal uptake. ABDOMEN AND PELVIS: Hepatobiliary: No abnormal uptake. Cholelithiasis. Spleen: No abnormal uptake. No splenomegaly. Pancreas: No abnormal uptake. Adrenals: No abnormal uptake. Urinary Tract: No abnormal uptake. GI Tract: No abnormal uptake. Peritoneum: No abnormal uptake. Vasculature: No abnormal uptake. Retroperitoneum & Lymph Nodes: No abnormal uptake. Pelvis: No abnormal uptake. MUSCULOSKELETAL: Osseous: No abnormal uptake. L1 vertebroplasty Soft Tissues: No abnormal uptake. IMPRESSION IMPRESSION: HEAD/NECK: * No FDG avid neoplastic [...] any questions regarding this interpretation, please call [phone]. If you are unable to reach us at the number above, please feel free to contact [facility] eRadiology at [phone]. [facility] CenterPET+CT Whole body Bone W 18F-NaF IVOrdered By: Ccf Provider on 13-65-5442Crdfatupa ClinicGLUCOSE, BLOOD (POC)on 80-28-6103Ouqaryz [Mass/Vol]223 mg/mOAfqnovhp80 - 99 mg/dLSouthview Medical CenterComment on above:Location:[facility], [address] [place] [address] , [place], [place], [address] The Accu-Chek Inform II glucose meter has not been approved for testing on patients receiving intensive medical intervention or therapy and results from this point of care glucose test should not be used for patient management decisions in these cases. Inaccurate results may also occur from other interfering factors, such as N-acetylcysteine (blood concentrations of greater than 5mg/dL), galactose, extremes of hematocrit (<10 or >65), or high doses of ascorbic acid (vitamin C) greater than 3mg/dL. Consider alternate testing mechanisms (e.g. core lab, blood gas instrument) in the above situations. Interpretation and review of laboratory resultsAbnormalCSalem Regional Medical CenterT+CT Whole body Bone W 18F-NaF Sachi 93-97-5839Tdyyeddjp Study observation (narrative)[place] [facility] ClinicAlbumin [Mass/volume] in Serum or Plasma on 26-39-8421Bylcxjs [Mass/Vol]3.58 g/dL3.43-5.41Wilson HealthBasophils Auto (Bld) [#/Vol]on 73-12-8583Uaitspucg (Bld) [#/Vol]0.03 10*3/uL<0.11Wilson HealthBasophils/100 WBC Auto (Bld)on 86-19-2512Kzjdmowqm/100 WBC (Bld)0.4 %Wilson HealthBlood manual differential comment interpretation narrativeon 50-32-4787Cspecu differential comment Augie (Bld) [Interp]AutoWilson Health Eosinophils/100 WBC Auto (Bld)on 10-36-5217Kipgkhqniak/100 WBC (Bld)1.6 % Wilson HealthErythrocyte distribution width Auto (RBC) [Ratio]on 39-83-0773Sqowbmbzuvr distribution width (RBC) [Ratio]12.8 %11.5-15.0 Wilson HealthHematocrit Auto (Bld) [Volume fraction]on 23-57-9918Slkhontkgn (Bld) [Volume fraction]40.9 %39.0-51.0Wilson HealthHemoglobin [Mass/volume] in Bloodon 95-05-5845Kigygzoyjf (Bld) [Mass/Vol]13.5 g/dL13.0-17.0Wilson HealthIgA [Mass/volume] in Serum or Plasmaon 82-78-3140CsQ [Mass/Vol]237 mg/dE12-453TrobuiufkWilson HealthIgG [Mass/volume] in Serum or Plasmaon 22-99-1348ZuD [Mass/Vol] 1238 mg/pQ274-8391WwqemelnsWilson HealthIgM [Mass/volume] in Serum or Plasmaon 88-49-9436NpR [Mass/Vol]319 mg/sQQngy62-230YqmpzjcsuWilson HealthImmunoglobulin light chains.kappa.free [Mass/volume] in Serumon 08-04-2023 Immunoglobulin light chains.kappa.free (S) [Mass/Vol]102.8 mg/LHigh3.3-19.4 Wilson HealthComment on above:Rarely, increased serum free light chains levels may not be detected or accurately quantified due to prozone phenomenon or in high viscosity samples using this immunoturbidimetric assay. Correlation with other laboratory results and clinical findings is recommended. The [place] Free Light Chain was performed using the Binding Site [employer] immunoturbidimetric method. Result obtained with different assay methods or kits cannot be used interchangeably.Immunoglobulin light chains.kappa.free/Immunoglobulin light chains.lambda.free [Bowen 08-04-2023 Immunoglobulin light chains.kappa.free/Immunoglobulin light chains.lambda.free (S) [Mass ratio]2.63Alqq2.26-1.65Wilson HealthImmunoglobulin light chains.lambda.free [Mass/volume] in Serum or Plasmaon 08-04-2023 Immunoglobulin light chains.lambda.free [Mass/Vol]47.2 mg/LHigh5.7-26.3FOhioHealth Nelsonville Health CenterComment on above:Rarely, increased serum free light chains levels may not be detected or accurately quantified due to prozone phenomenon or in high viscosity samples using this immunoturbidimetric assay. Correlation with other laboratory results and clinical findings is recommended. The Lambda Free Light Chain was performed using the Binding Site [employer] immunoturbidimetric method. Result obtained with differentassay methods or kits cannot be used interchangeably.Laboratory - Chemistry and Chemistry - challenge on 86-51-4812Tpooxec [Mass/Vol]4.0 g/dL3.9-4.9[facility] ALP [Catalytic activity/Vol]88 U/X39-722GttteuwawWilson HealthALT [Catalytic activity/Vol]25 U/M52-97WterlzvsvWilson HealthAST [Catalytic activity/Vol]27 U/X22-59YgrplmrwpWilson HealthBilirubin [Mass/Vol]0.3 mg/dL0.2-1.3FOhioHealth Nelsonville Health CenterCalcium [Mass/Vol]9.3 mg/dL8.5-10.2FOhioHealth Nelsonville Health CenterChloride [Moles/Vol]104 mmol/L 97-105Wilson HealthCO2 [Moles/Vol]23 mmol/J13-95YdcquupkkWilson HealthCreatinine [Mass/Vol]1.46 mg/dLHigh0.73-1.22Wilson HealthGlucose [Mass/Vol]320 mg/xLUpyl51-37TfqjbzzitWilson HealthComment on above:The [place] Diabetes Association (ADA) provides guidance for cutoff values for fasting glucose andrandom glucose. The ADA defines fasting as no caloric intake for at least 8 hours. Fasting plasma gl ucose results between 100 to 125 mg/dL indicate increased risk for diabetes (prediabetes).Fasting plasma glucose results greater than or equal to 126 mg/dL meet the criteria for diagnosis of diabetes. In the absence of unequivocal hyperglycemia, results should be confirmed by repeat testing. In a patient with classic symptoms of hyperglycemia or hyperglycemic crisis, random plasma glucose resultsgreater than or equal to 200 mg/dL meet the criteria for diagnosis of diabetes.Reference: [employer] in Diabetes 2016, [place] Diabetes Association. Diabetes Care. 2016.39(Suppl 1).LDH [Catalytic activity/Vol]159 U/M691-746KeamcascnWilson HealthPotassium [Moles/Vol]4.3 mmol/L 3.7-5.1FOhioHealth Nelsonville Health CenterProtein [Mass/Vol]0.41 g/dLHigh<=0.00 [facility] Hospitalodium [Moles/Vol]136 mmol/I781-539DxxoezzqaWilson HealthUrate [Mass/Vol]4.7 mg/dL4.0-8.1FOhioHealth Nelsonville Health CenterUrea nitrogen [Mass/Vol]14 mg/dL9-24Wilson HealthLaboratory - Hematology and Cell countson 72-97-7308Kxbzwxnzruk (Bld) [#/Vol]0.12 10*3/uL<0.46Wilson HealthImmature granulocytes/100 WBC (Bld)0.3 %Wilson HealthLeukocytes [#/volume] corrected for nucleated erythrocytes in Blood by Automated counon 62-74-2770QGX corrected for nucl RBC Auto (Bld) [#/Vol]7.73 k/uL3.70-11.00 Wilson HealthLymphocytes Auto (Bld) [#/Vol]on 08-04-2023 Lymphocytes (Bld) [#/Vol]1.81 10*3/uL1.00-4.00[facility] Lymphocytes/100 WBC Auto (Bld)on 20-98-7978Fmpgpbjhzwt/100 WBC (Bld)23.4 % Wilson HealthMCH Auto (RBC) [Entitic mass]on 32-67-2825VAR (RBC) [Entitic mass]30.4 pg26.0-34.0Wilson HealthMCHC Auto (RBC) [Mass/Vol]on 52-86-7279BFFK (RBC) [Mass/Vol]33.0 g/dL30.5-36.0Wilson HealthMCV Auto (RBC) [Entitic vol]on 02-28-2642DVD (RBC) [Entitic vol]92.1 fL80.0-100.0Wilson HealthMonocytes Auto (Bld) [#/Vol]on 90-96-1208Httldpchw (Bld) [#/Vol]0.84 10*3/uL<0.87Wilson HealthMonocytes/100 WBC Auto (Bld)on 43-29-2068Zvwclaksd/100 WBC (Bld)10.9 %Wilson HealthNeutrophils Auto (Bld) [#/Vol]on 67-07-9523Lqhzmzsmwsa (Bld) [#/Vol]4.91 10*3/uL1.45-7.50Wilson HealthNeutrophils/100 WBC Auto (Bld)on 61-41-5794Digmojzwlkq/100 WBC (Bld)63.4 %Wilson HealthNo Panel Informationon 08-04-2023 Estimated GFR (CKD-EPI)48 mL/min/1.73m???Low>=60Wilson HealthComment on above:Estimated Glomerular Filtration Rate (eGFR) is calculated using the 2020 CKD-EPI creatinine equation. This equation utilizes serum creatinine, sex, and age as parameters. The creatinine assay has traceable calibration to isotope dilution-mass spectrometry. Refer to KDIGO guidelines for clinical interpretation. In patients with unstable renal function, e.g. those with acute kidney injury, the eGFRmay not accurately reflect actual GFR.Immature Granulocyte # (Auto)<0.03 k/uL<0.10[facility] Immunofixation InterpretationWilson HealthIonized Calcium (pH Adjusted)1.20 mmol/L1.08-1.30Wilson HealthLeuk/Lymph Sign Pathologist (Misc)Reviewed by Kira Reyes MDWilson HealthMiscellaneous Test 6Gamma Fraction 1FOhioHealth Nelsonville Health Center Miscellaneous Test CommentReviewed by Kira Reyes MDWilson HealthPhosphorus Level2.3 mg/dLLow2.7-4.8Wilson HealthProtein Electrophoresis InterpretSee commentWilson HealthComment on above:See separate immunofixation report for characterization of monoclonal gammopathy.M protein is present on the background of a polyclonal immunoglobulin population. Quantitation of the M protein may overestimate the amount of M protein present.Protein Electrophoresis NoteAn M protein is identified on protein electrophoresis.AbnormalNo definitive M protein is identified on protein electrophoresis.[facility] Hospitalerum ImmunofixationM protein is present.AbnormalNo M protein is identified.Wilson HealthNucleated RBC Auto (Bld) [#/Vol]on 28-67-3163Qtuxoyuos RBC (Bld) [#/Vol]10*3/uL<0.01Wilson HealthNucleated erythrocytes [Presence] in Blood by Automated counton 70-08-2552Kvviucmcp RBC Auto Ql (Bld)0.0 /100{WBC}Wilson HealthPlatelet mean volume Auto (Bld) [Entitic vol]on 85-03-7643Peuqsijq mean volume (Bld) [Entitic vol] 10.0 fL9.0-12.7FOhioHealth Nelsonville Health CenterPlatelets Auto (Bld) [#/Vol]on 12-53-2507Xmctapwjp (Bld) [#/Vol]187 10*3/zP492-499BjvjjrfttWilson HealthProtein [Mass/volume] in Serum or Plasmaon 88-53-2855Lxvitvf [Mass/Vol]6.6 g/dL6.3-8.0Wilson HealthRBC Auto (Bld) [#/Vol]on 08-04-2023 RBC (Bld) [#/Vol]4.44 10*6/uL4.20-6.00[facility] Hospitalerum ionized calcium measurement using ion specific electrode (mass/volume)on 43-85-7896Grqqtpa.ionized ISE [Mass/Vol]1.24 mmol/L1.08-1.30[facility] Hospitalerum or plasma alpha 1 globulin measurement by electrophoresis (mass/volume)on 38-78-6105Ueddd 1 globulin Elph [Mass/Vol]0.26 g/dL0.18-0.43 [facility] Hospitalerum or plasma alpha 2 globulin measurement by electrophoresis (mass/volume)on 36-00-9852Lylqe 2 globulin Elph [Mass/Vol]0.67 g/dL0.42-0.98[facility] Hospitalerum or plasma anion gap determinationon 02-46-3277Ersmr gap [Moles/Vol]9 mmol/L9-18FCleveland Clinic Akron General Lodi Hospitalerum or plasma beta globulin measurement by electrophoresis (mass/volume)on 26-97-3382Wvvw globulin Elph [Mass/Vol]0.90 g/dL0.61-1.17 [facility] Hospitalerum or plasma xtgm-1-ggqcabssgwnfn measurement (mass/volume)on 43-87-1768Gkxk-2-Microglobulin [Mass/Vol]4.3 ug/mL High<3.1FOhioHealth Nelsonville Health CenterComment on above:Beta-2 Microglobulin test is performed using the [employer] immunoturbidimetric method. Resul ts obtained with different methods or kits cannot be used interchangeably.Serum or plasma gamma globulin measurement by electrophoresis (mass/volume)on 68-87-8559Nqbfw globulin Elph [Mass/Vol]1.20 g/dL0.53-1.51Wilson HealthMicroalbumin [Mass/volume] in Urineon 28-26-0127Kksdujr DL <= 20 mg/L (U) [Mass/Vol]8.0 mg/dL<=30.0Wilson HealthBasophils Auto (Bld) [#/Vol]on 08-78-9790Jewcblxwx (Bld) [#/Vol]0.0 10 3/uL0.0-0.1 Wilson HealthBasophils/100 WBC Auto (Bld)on 07-11-2023 Basophils/100 WBC (Bld)0.5 %0.2-2.0Wilson HealthCholesterol in LDL Calc [Mass/Vol]on 38-82-8394Vdzlenhzvvd in LDL [Mass/Vol]64.0 mg/dL Wilson HealthComment on above:<100 mg/dl JTPOPBH289-313 mg/dl NEAR OR ABOVE SUKWJEP289-555 mg/dl BORDERLINE DCEN545-941 mg/dl HIGH>190 mg/dl VERY HIGHCholesterol in VLDL Calc [Mass/Vol]on 46-30-0696Khzayxoxlla in VLDL [Mass/Vol]33.8 mg/dLWilson HealthEosinophils/100 WBC Auto (Bld)on 11-59-3293Ucjefcafutb/100 WBC (Bld)2.3 %0.9-7.0Wilson HealthErythrocyte distribution width Auto (RBC) [Ratio]on 07-11-2023 Erythrocyte distribution width (RBC) [Ratio]12.7 %11.0-15.0Wilson HealthEstimated glomerular filtration rate (GFR) non- Americanon 01-55-3704EVW/1.73 sq M.predicted among non-blacks MDRD (S/P/Bld) [Vol rate/Area]48 mL/min/{1.73_m2}>=60Wilson HealthGlobulin Calc (S) [Mass/Vol]on 05-81-7729Gsyyubfc (S) [Mass/Vol]3.9 g/dLWilson HealthGlucose mean value [Mass/volume] in Blood Estimated from glycated hemoglobinon 04-86-0582Kpwyubm glucose Estimated from glycated hemoglobin (Bld) [Mass/Vol]177 mg/dLWilson HealthHematocrit Auto (Bld) [Volume fraction]on 00-99-9378Snqmtarpje (Bld) [Volume fraction]43.0 %42.0-54.0 Wilson HealthHemoglobin [Mass/volume] in Bloodon 07-11-2023 Hemoglobin (Bld) [Mass/Vol]14.3 g/dL14.0-18.0[facility] Laboratory - Chemistry and Chemistry - challengeon 01-91-9741Ytywigh [Mass/Vol] 3.6 g/dL3.4-5.0Wilson HealthALP [Catalytic activity/Vol]87 U/N45-043FsjpqydaxWilson HealthALT [Catalytic activity/Vol]37 U/L 16-63Wilson HealthAST [Catalytic activity/Vol]27 U/L15-37 Wilson HealthBilirubin [Mass/Vol]0.5 mg/dL0.2-1.0Wilson HealthCalcium [Mass/Vol]9.3 mg/dL8.5-10.1FOhioHealth Nelsonville Health CenterChloride [Moles/Vol]105 mmol/Q61-632WkarxojlmWilson HealthCholesterol [Mass/Vol]137 mg/dL<=200[facility] Cholesterol in HDL [Mass/Vol]40 mg/pN89-91SisqyifdjWilson Health Comment on above:> or =60 mg/dl - LOW CARDIOVASCULAR RISK<40 mg/dl - HIGH CARDIOVASCULAR RISKCO2 [Moles/Vol]26.9 mmol/L21.0-32.0Wilson HealthCreatinine [Mass/Vol]1.41 mg/dL0.70-1.30[facility] GFR/1.73 sq M.predicted MDRD (S/P/Bld) [Vol rate/Area]58 mL/min/{1.73_m2}>=60 Wilson HealthGlucose [Mass/Vol]158 mg/oX02-698AmumcpcwyWilson HealthPotassium [Moles/Vol]4.2 mmol/L3.5-5.1FOhioHealth Nelsonville Health CenterProtein [Mass/Vol]7.5 g/dL6.4-8.2FOhioHealth Nelsonville Health Center Sodium [Moles/Vol]139 mmol/R556-816HjpwmxbeyWilson HealthTriglyceride [Mass/Vol]169 mg/dL<=150Wilson HealthUrea nitrogen [Mass/Vol]15.0 mg/dL7.0-18.0Wilson HealthUrea nitrogen/Creatinine [Mass ratio]10.6 mg/mgWilson Health Laboratory - Hematology and Cell countson 96-68-8024SbH1g (Bld) [Mass fraction] 7.8 %4.5-6.2FOhioHealth Nelsonville Health CenterComment on above:ADA RECOMMENDED LIMIT 4.0 - 6.0ADA THERAPEUTIC TARGET < 7.0ACTION SUGGESTED> 7.0Immature granulocytes/100 WBC (Bld)0.3 %0.0-0.5FOhioHealth Nelsonville Health Center Leukocytes [#/volume] corrected for nucleated erythrocytes in Blood by Automated counon 88-46-2023FOE corrected for nucl RBC Auto (Bld) [#/Vol]8.9 10 3/uL 4.0-11.0Wilson HealthLymphocytes Auto (Bld) [#/Vol]on 06-03-5216Fwgvvvtgulf (Bld) [#/Vol]2.4 10 3/uL1.2-3.8Wilson HealthLymphocytes/100 WBC Auto (Bld)on 88-64-8818Swknfwmfjjw/100 WBC (Bld)26.8 % 20.5-60.0Wilson HealthMCH Auto (RBC) [Entitic mass]on 15-65-4108YJA (RBC) [Entitic mass]31.2 pg25.9-34.0Wilson HealthMCHC Auto (RBC) [Mass/Vol]on 43-29-9085YOIM (RBC) [Mass/Vol]33.3 g/dL 29.9-35.2FOhioHealth Nelsonville Health CenterMCV Auto (RBC) [Entitic vol]on 45-48-2515NCU (RBC) [Entitic vol]93.9 fL80.0-94.0Wilson HealthMonocytes Auto (Bld) [#/Vol]on 13-88-3483Udbwmdzws (Bld) [#/Vol]0.8 10 3/uL0.3-0.8Wilson HealthMonocytes/100 WBC Auto (Bld)on 05-88-8387Iysfndvlf/100 WBC (Bld)9.5 %1.7-12.0[facility] Neutrophils Auto (Bld) [#/Vol]on 16-03-6732Eprmcsxzylz (Bld) [#/Vol]5.4 10 3/uL 1.4-6.5FOhioHealth Nelsonville Health CenterNeutrophils/100 WBC Auto (Bld)on 88-65-7782Dvaxifvmwpz/100 WBC (Bld)60.6 %43.0-75.0Wilson HealthNo Panel Informationon 21-22-3018Jmophmrcxmm # (Auto)0.2 10 3/uL0.0-0.7 Wilson HealthImmature Granulocyte # (Auto)0.03 10 3/uL 0.00-0.03Wilson HealthPlatelet mean volume Auto (Bld) [Entitic vol]on 01-60-1365Gmhdtjtf mean volume (Bld) [Entitic vol]9.8 fL9.5-13.5 Wilson HealthPlatelets Auto (Bld) [#/Vol]on 07-11-2023 Platelets (Bld) [#/Vol]213 10 3/bT877-406IflyfoebaWilson HealthRBC Auto (Bld) [#/Vol]on 12-90-3021ORO (Bld) [#/Vol]4.58 10 6/uL4.70-6.10[facility] Hospitalerum or plasma albumin/globulin mass ratioon 07-11-2023 Albumin/Globulin [Mass ratio]0.9 {ratio}[facility] Hospitalerum or plasma anion gap determinationon 25-74-6710Csjzc gap [Moles/Vol]11.3 mmol/L [facility] Hospitalerum or plasma total cholesterol/high density lipoprotein (HDL) cholesterol mass cr 19-22-3687Isqyuoiegsc.total/Cholesterol in HDL [Mass ratio]3.4 {ratio}Wilson HealthComment on above:3.3 - 4.4 LOW RISK4.4 - 7.1 AVERAGE RISK7.1 - 11.0 MODERATE RISK>11.0 HIGH RISKGLYCOHEMOGLOBIN A1Con 74-02-9860JRB RECOMMENDATIONSEE BELOWBarney Children's Medical CenterComment on above:Result Comment: ADA RECOMMENDED LIMIT 4.0 - 6.0 ADA THERAPEUTIC TARGET < 7.0 ACTION SUGGESTED > 7.0Performed By: #### A1C #### [facility] [address] [place] [address] Dr. Sandy KochGlucose [Mass/Vol]169 mg/dLBarney Children's Medical CenterComment on above:Performed By: #### A1C #### [facility] [address] [place] [address] Dr. Sandy WeldonA1c (Bld) [Mass fraction]7.5 %Critically high4.5-6.2[facility] CenterComtrinity health [facility] on above:Performed By: #### A1C #### [facility] [address] [place] [address] Dr. Sandy KochGLYCOHEMOGLOBIN A1Con 40-33-7768CCM RECOMMENDATIONSEE BELOWLima Memorial HospitalComment on above:Result Comment: ADA RECOMMENDED LIMIT 4.0 - 6.0 ADA THERAPEUTIC TARGET < 7.0 ACTION SUGGESTED > 7.0Performed By: #### A1C #### [facility] [address] [address] [address] Sandy KochGlucose [Mass/Vol]163 mg/dLBarney Children's Medical CenterComment on above:Performed By: #### A1C #### [facility] [address] [place] [address] Dr. Sandy WeldonA1c (Bld) [Mass fraction]7.3 %Critically high4.5-6.2[facility] Medical CenterComment on above:Performed By: #### A1C #### [facility] [address] [address] [address] Sandy KochGLYCOHEMOGLOBIN A1Con 15-29-9296IKW RECOMMENDATIONSEE BELOWNormal [facility] Medical CenterComment on above:Result Comment: ADA RECOMMENDED LIMIT 4.0 - 6.0 ADA THERAPEUTIC TARGET < 7.0 ACTION SUGGESTED > 7.0Performed By: #### A1C #### [facility] [address] [address] [address] Sandy KochGlucose [Mass/Vol]160 mg/dLNoOhioHealth Grady Memorial HospitalComment on above:Performed By: #### A1C #### [facility] [address] [address] [address] Sandy KochHbA1c (Bld) [Mass fraction]7.2 %Critically high4.5-6.2The [facility] HospitalComment on above:Performed By: #### A1C #### [facility] [address] [address] [address] Sandy KochComilagros Summaryon 24-06-0213Givger SummaryHTMLBase 64 PoapgwewUXu9jDg+PGhlYWQ+RJ4ENLTyX17tlPSzjO7DN3qQXR0NNSXNEFMWAQ7GIM1doHF4FRpkG9Ds biAv [file] ZTo (more content not included)...[facility] CenterConsent Formson 74-64-8505Vmemeqa [id number]#1.00OTGTIFF [facility] CenterInpatient Patient Summaryon 51-06-0243Vqebtplif Patient SummaryDerrick [place] [id number] Patient Discharge Instructions Name: RAFAT BELLA Dania : 1940 Patient Address: [address] [place] [address] Primary Care Provider: Name: Danilo Clark After you are discharged if you find you have any questions, please, call [phone] to speak to a nurse. Discharge Diagnosis: Carpal tunnel syndrome on right Prescription Information: If you have been given a prescription for narcotics, seek immediate medical attention if you have any difficulty breathing or any sudden status changes such as confusion andsleepiness. If you or anyone you know is experiencing suicidal thoughts, mental health, alcohol and/or drug addiction problems; contact the [place] [facility] [facility] 14/10 Crisis Hotline -Text 4HEJL to [id number]. If you received any narcotics, sedation, or [...] business decisions or sign any legal documents [facility] would like to thank you for allowing us to assist you with your healthcare needs.The following includes patient education materials and information regarding your injury/illness. RAFAT BELLA has been given the following list of follow-up instructions, prescriptions, and patient education materials: Follow-up Instructions With: Address: When: Carlo Richards [address] [place] [address], [address] [place] [id number] Business (1) 09/28/2020 10:00 AM Medications During [...] fingers frequently while awake (more content not included)...Normal [facility] Intraoperative Recordon [id number] Intraoperative RecordMA Intra-Op Record Summary Primary Physician: Carlo Richards DO Finalized Date/Time: 09/20/20 13:39:22 Pt. Name: RAFAT BELLA/Sex: 1940 MALE Med Rec #: [id number] Physician: Carlo Richards DO Financial #: [id number] Pt. Type: D Room/Bed: / Admit/Disch: 09/20/20 [...] Andrew DO Role Performed Surgeon - Primary Inspector Plumbing Scrub Personnel Time In 09/20/20 12:20:00 09/20/20 [...] Primary Procedure Yes Primary Surgeon Carlo Richards Right Krish DO Surgeon Comment RIGHT [...] Performs skin preparation Im.270.1 Implements protective measures toprevent skin and tissue injury due to chemical [...] Release(Right) Counts Verification Initia (more content not included)...[facility] Preoperative Recordon [id number] Preoperative RecordMA Pre-Op Record Summary Primary Physician: Carlo Richards DO Finalized Date/Time: 09/20/20 13:52:57 Pt. Name: RAFAT BELLA/Sex: 1940 MALE Med Rec #: [id number] Physician: Carlo Richards DO Financial #: [id number] Pt. Type: D Room/Bed: / Admit/Disch: 09/20/20 [...] ready for surgery. The patient remains free froms/s of injury. Patient/family express understanding of plan of care and participate in decisions affectinghis or her perioperrative plan of care. Allergies documented appropriately. Patient identifiers and consent correct. General Comments: Denies chest pain, shortness of breath or illnessess. Denies pacemaker/defib. Denies sleep apnea. Finalized By: Sherrie Merino RN Document Signatures Signed By: Sherrie Merino RN 09/20/20 13:52[facility] Medical CenterOperative Report - Surgeon/Physicianon [id number] Report - Surgeon/PhysicianPreoperative diagnosis: Carpal tunnel syndrome right Postoperative diagnosis: [...] [Verified on: 09/20/2020 13:49 EDT] Carlo Richards [facility] CampusPOCT Glucose Levelon 12-68-2193Kybccya [Mass/Vol]210 mg/vZOqlw25-318Wgmuovtx35 Landry StreetComment on above:Performed By: #### [id number] #### [facility] (DEFAULT) [address] [place] [address] 40320Ebvrnci Handouton 92-37-9909Rzhcuda HandoutDRMichelle WILD POST OPERATIVE CARPEL TUNNEL INSTRUCTIONS SURGEONS WRITTEN INSTRUTCTIONS: -Keep your hand elevated above your elbow for the first 24 hours after surgery -Wiggle your fingers frequently while awake -DO NOT lift heavy objects or data power consultant forcefully with your hand -Change your dressing [...] or concerns, please call the office at [phone] -Follow up as scheduledUniversity Hospitals Cleveland Medical CenterProgress Note - Maite 09-19-2020 Progress Note - NurseDr. Richards's office called- informed Zakiya of needing patient's consent for surgery and if that patient is on coumadin and had labwork done yesterday at the [facility] -if we could get copies of those fax'd to us- Zakiya stated she would send. [Electronically Signed on: 09/19/2020 13:09 EDT] Sherrie Merino RN [Verified on: 09/19/2020 13:09 EDT] Sherrie Merino RNUniversity Hospitals Cleveland Medical CenterCoding Summary.on [id number] Summary.CODING DATE: 04/29/2017 FINAL [facility] STATUS: Home (Routine DC) PAYOR: Medicare [...] number assigned matches the documented diagnosis and /or procedure in the patient's chart. However, the narrative phrase printed from the coding softwaremay appear abbreviated, or result in slightly different terminology. Coded By: Shawna Cantu Date Saved: 04/29/2017 12:57 pmNormalOhiohealth Grant Medical CenterCoding Summary.on [id number] Summary.CODING DATE: 04/25/2017 FINAL [facility] STATUS: Home (Routine DC) PAYOR: Medicare [...] By: Shawna Cantu Date Saved: 04/25/2017 07:32 amNormal [facility] Grant Medical CenterMRI Spine Thoracic w/ + w/o Contraston [id number] Spine Thoracic w/ + w/o ContrastExam Date/Time:04/24/2017 18:22 ESTReason for Exam:C90.00 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ReportIMPRESSION: MINIMAL DEGENERATIVE CHANGE WITH SMALL FOCAL DISC HERNIATION AT T8-T9. NOMYELOMA TOUS LESIONS DEMONSTRATED.EXAM: MRI thoracic spineREASON FOR EXAM: Acute severe posterior thoracic spine pain.TECHNIQUE: Multiplanar multisequence MRI scans of the thoracic spine. 20 cc ofMultiHance contrast administered intravenously.FINDINGS:Bones: There is a focal fatty area of marrow change andan adjacent sclerotic areainvolving the T8 vertebral body consistent with benign changes. Otherwisemarrowsignal throughout the thoracic spine is within normal [...] signal intensity. Soft tissues: There is no pa raspinal soft tissue mass or fluid collection. FINAL REPORT Dictated: 04/25/2017 12:18 pm Shawn Abbott MD Signed (Electronic Signature): 04/25/2017 5:58 pm Signed by: Shawn Abbott MD Transcribed by: melissa Technologist: LINETTE,Technical CommentsMultiHanceContrast amount in ml's: 20Normal [facility] Medical CenterCreatinineon 32-95-2006Keglmhhuru0.6 mg/dLHigh0.5-1.3 [facility] Medical CenterComment on above:Performed By: #### [id number], [id number] ####[facility] [address] [place], [place] [address]vOFO on 86-53-0990pNQQ (black)51 mL/min/1.73 m2Low>=59[facility] Comment on above:Order Comment: Order added by Discern Expert.Result Comment: eGFR is race adjusted. AA=.Performed By: #### [id number], [id number] ####[facility] [address] [place], [place] [address]rERD (non-black)42 mL/min/1.73 m2Low>=59Ohio[facility] Grant Medical CenterComment on above: Order Comment: Order added by Discern Expert.Result Comment: Chronic kidney disease could be indicated at eGFR's of less than 60 mL/min/1.73m2. Kidney failure is indicated at less than 15 mL/min/1.73m2.Performed By: #### [id number], [id number] ####[facility] [address] [place] [address] Vital Signs Date TimeVital SignValuePerforming NuschuctdYoprgymc60-49-7437 14:14-0400Body xvodwk802.8 cmBenjamin Ball DO Work Phone: [facility]10-20-2025 14:14-0400 Body mass index (BMI) [Ratio]37 kg/l1Ikxsqhdc Ball DO Work Phone: [facility]10-20-2025 14:14-0400 Body dqnafe588.19 kgBenjamin Ball DO Work Phone: [facility]10-20-2025 14:14-0400 Diastolic blood dojwivgq81 mm[Hg]Danilo Ball DO Work Phone: [facility]10-20-2025 14:14-0400 Heart rate75 /minBenjamin Ball DO Work Phone: [facility]10-20-2025 14:14-0400 Respiratory rate16 /minBenbrandynmin Ball DO Work Phone: [facility]10-20-2025 14:14-0400 Systolic blood evnmslad993 mm[Hg]Danilo Clark DO Work Phone: [facility]09-03-2025 10:24-0400 Body evfowx315.8 cmIdalmis Basilio STUMPER FELLER.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 Work Phone: [facility]09-03-2025 10:24-0400Body mass index (BMI) [Ratio]36.76 kg/q2IcwlfxIdalmis Basilio STUMPER FELLER.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 Work Phone: [facility]09-03-2025 10:24-0400Body temperature 97.59 [degF]Idalmis Basilio STUMPER FELLER.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 Work Phone: [facility]09-03-2025 10:24-0400Body sjiiqq201.2 kgIdalmis Basilio STUMPER FELLER.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 Work Phone: [facility]09-03-2025 10:24-0400Diastolic blood wxgcyywv58 mm[Hg]Idalmis Basilio STUMPER FELLER.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 Work Phone: [facility]09-03-2025 10:24-0400Heart rate79 /min Idalmis Basilio STUMPER FELLER.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 Work Phone: [facility]09-03-2025 10:24-0400Respiratory rate 20 /minIdalmis Basilio STUMPER FELLER.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 Work Phone: [facility]09-03-2025 10:24-7438FeX7% (BldA) [Mass fraction]93 %Idalmis Basilio STUMPER FELLER.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 Work Phone: [facility]09-03-2025 10:24-0400Systolic blood pkdtaxvj796 mm[Hg]Idalmis Basilio STUMPER FELLER.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 Work Phone: [facility]07-25-2025 14:58-0400Body ehjmxo045.8 cmBenjamin Ball DO Work Phone: [phone] [place], [place] [address]07-25-2025 14:58-0400 Body mass index (BMI) [Ratio]35.4 kg/k2Vydjhpgp Ball DO Work Phone: [phone] [place], [place] 6243907-25-2025 14:58-0400 Body aobxmi740.17 kgBenjamin Ball DO Work Phone: [phone])[address] [place], [place] 6243907-25-2025 14:58-0400 Diastolic blood zufrinsv51 mm[Hg]Danilo Ball DO Work Phone: [phone] [place], [place] 624[address]07-25-2025 14:58-0400 Diastolic blood gfuleoaf60 mm[Hg]Danilo Ball DO Work Phone: [phone] [place], [place] 624[address]07-25-2025 14:58-0400 Heart rate60 /minBenjamin Ball DO Work Phone: [phone] [place], [place] 6243907-25-2025 14:58-0400 Respiratory rate12 /minBenjamin Ball DO Work Phone: [phone] [place], [place] 624[address]07-25-2025 14:58-0400 Systolic blood sbzfmany053 mm[Hg]Danilo Ball DO Work Phone: [phone] [place], [place] 6243907-25-2025 14:58-0400 Systolic blood onfghqhc446 mm[Hg]Danilo Ball DO Work Phone: [phone])[address] [place], [place] 6243907-24-2025 15:56-0400 Body .8 cmNicholas Brown DPM Work Phone: [facility] LouisFflkxodpes49-65-2066 15:56-0400Body mass index (BMI) [Ratio]37.31 kg/z6Dykvoaho Brown DPM Work Phone: [facility] LouisYmzgktllxl92-73-3428 15:56-0400Body leqcuw451.94 kgNicholas Brown DPM Work Phone: [facility] LouisWssngypyrv28-60-1151 15:56-0400Respiratory rate16 /minJabier Aldridge DPM Work Phone: [facility] Vhydjewccd54-10-9126 14:25-0400Body mass index (BMI) [Ratio]36.38 kg/x2BuifqjasAshe [facility] Hospital STUMPER FELLER.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 Work Phone: [place] Nqhtub85-90-6339 14:25-0400Body temperature 97.2 [degF][facility] STUMPER FELLER.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 Work Phone: [place] Wuzrzg22-82-5725 14:25-0400Body ayodcx095 kg [facility] STUMPER FELLER.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 Work Phone: [place] Cyuqll59-84-6607 14:25-0400Diastolic blood mpfonuyn73 mm[Hg][facility] STUMPER FELLER.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 Work Phone: [place] Uzfecd32-23-0195 14:25-0400Heart rate76 /min [facility] STUMPER FELLER.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 Work Phone: [place] Fogvtz71-18-1673 14:25-0400Respiratory rate 16 /minAshe Memorial Hospital STUMPER FELLER.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 Work Phone: [place] Haggcr63-84-7824 14:25-9783MzI8% (BldA) [Mass fraction]94 %[facility] STUMPER FELLER.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 Work Phone: [place] Obknbr64-94-9309 14:25-0400Systolic blood vjhovgfx992 mm[Hg][facility] STUMPER FELLER.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 Work Phone: [place] Xgxpzd05-27-2545 14:00-0400Body dhyqay740.8 cmBenjamin Ball DO Work Phone: [facility]07-04-2025 14:00-0400 Body hojfcuowuhw59.4 [degF]Danilo Ball DO Work Phone: [facility]07-04-2025 14:00-0400 Body zwrxiu680.39 kgBenjamin Ball DO Work Phone: [facility]07-04-2025 14:00-0400 Diastolic blood iboxblxt52 mm[Hg]Danilo Ball DO Work Phone: [facility]07-04-2025 14:00-0400 Heart rate81 /minBenjamin Ball DO Work Phone: [facility]07-04-2025 14:00-0400 Respiratory rate18 /minBenjamin Ball DO Work Phone: [facility]07-04-2025 14:00-0400 SaO2% (BldA) [Mass fraction]94 %Danilo Ball DO Work Phone: [facility]07-04-2025 14:00-0400 Systolic blood fniyxjut614 mm[Hg]Danilo Ball DO Work Phone: [facility]06-18-2025 13:21-0400 Body amvije781.3 cmPacc 4 Work Phone: [phone]06-18-2025 13:21-0400Body mass index (BMI) [Ratio]37.24 kg/m2Pacc 4 Work Phone: [phone]06-18-2025 13:21-0400Body temperature 97.9 [degF]Pacc 4 Work Phone: [phone]06-18-2025 13:21-0400Body reykur170.4 kgPacc 4 Work Phone: [phone]06-18-2025 13:21-0400Diastolic blood mm[Hg]Pacc 4 Work Phone: [phone]06-18-2025 13:21-0400Heart rate70 /min Pacc 4 Work Phone: [phone]06-18-2025 13:21-0400Respiratory rate 16 /minPacc 4 Work Phone: [phone]06-18-2025 13:21-8098JgS7% (BldA) [Mass fraction]99 %Pac 4 Work Phone: [phone]06-18-2025 13:21-0400Systolic blood kmoclpvu060 mm[Hg]Pac 4 Work Phone: [phone]06-03-2025 12:56-0400Body mass index (BMI) [Ratio]36.82 kg/o4SsmbsmgiAshe Memorial Hospital STUMPER FELLER.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 Work Phone: [facility]Day[facility] CenterJjcoqy83-89-0442 12:56-0400Body temperature 97.9 [degF][facility] STUMPER FELLER.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 Work Phone: KDay[facility] CenterKbpvva19-29-1263 12:56-0400Body sqozvm465.3 kgAs[facility] STUMPER FELLER.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 Work Phone: K[facility] CenterMkdxhi77-27-0695 12:56-0400Diastolic blood vizkwykh65 mm[Hg]Angelique Bundrid STUMPER FELLER.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 Work Phone: [facility] CenterRnqdkf30-84-0513 12:56-0400Heart rate89 /min [facility] STUMPER FELLER.[facility] Work Phone: NDay[facility] CenterVozpwg24-17-9629 12:56-0400Respiratory rate 16 /minAshe Memorial Hospital STUMPER FELLER.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 Work Phone: VDay[facility] CenterTryrlf39-20-4332 12:56-9660QtB6% (BldA) [Mass fraction]94 %[facility] STUMPER FELLER.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 Work Phone: ODay[facility] CenterPfsbgc20-31-2658 12:56-0400Systolic blood mm[Hg][facility] STUMPER FELLER.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 Work Phone: [facility] CenterXgbkhk73-80-5380 15:30-0400Body cpdovw646.2 Luiz Ash MD Work Phone: [facility]05-29-2025 15:30-0400Body mass index (BMI) [Ratio]36.94 kg/k8QjnbcAnibal Ash MD Work Phone: [facility]05-29-2025 15:30-0400Body temperature 97.7 [degF]Anibal Ash MD Work Phone: [facility]05-29-2025 15:30-0400Body rnukgx787.7 kgAnibal Ash MD Work Phone: [facility]05-29-2025 15:30-0400Diastolic blood ikaqiinr77 mm[Hg]Anibal Ash MD Work Phone: [facility]05-29-2025 15:30-0400Heart rate72 /min Anibal Ash MD Work Phone: [facility]05-29-2025 15:30-0400Respiratory rate 18 /minAnibal Ash MD Work Phone: [facility]05-29-2025 15:30-2894HvJ8% (BldA) [Mass fraction]95 %Anibal Ash MD Work Phone: [facility]05-29-2025 15:30-0400Systolic blood slsnracf812 mm[Hg]Anibal Ash MD Work Phone: [facility]05-29-2025 14:35-0400Body mass index (BMI) [Ratio]36.81 kg/m2Frankie Martinez MD Work Phone: [facility]05-29-2025 14:35-0400Body temperature 97.59 [degF]Frankie Martinez MD Work Phone: [facility]05-29-2025 14:35-0400Body wvkfpy245.8 kgFrankie Martinez MD Work Phone: [facility]05-29-2025 14:35-0400Diastolic blood etghksgg66 mm[Hg]Frankie Martinez MD Work Phone: [facility]05-29-2025 14:35-0400Heart rate70 /min Frankie Martinez MD Work Phone: [facility]05-29-2025 14:35-0400Respiratory rate 20 /minSkaleb Martinez MD Work Phone: [facility]05-29-2025 14:35-5243LjO8% (BldA) [Mass fraction]97 %Frankie Martinez MD Work Phone: [facility]05-29-2025 14:35-0400Systolic blood yufbmtoz037 mm[Hg]Frankie Martinez MD Work Phone: [facility]05-15-2025 14:18-0400Body .8 cmJabier Aldridge DPM Work Phone: [facility] LouisJfdpbqwrsx13-05-6839 14:18-0400Body mass index (BMI) [Ratio]37.31 kg/r0FjmcfoulJabier Aldridge DPM Work Phone: [facility] LouisJwcajsdzyn12-95-2123 14:18-0400Body btbaop645.94 kgJabier Aldridge DPM Work Phone: [facility] LouisPuxaivmhkh13-40-3811 14:18-0400Respiratory rate18 /Adalberto Aldridge DPM Work Phone: [facility] LouisCjvnhpljke45-33-2181 13:39-0400Body csxjyp098.8 cm[facility]04-23-2025 13:39-0400Body mass index (BMI) [Ratio]35.5 kg/u1RnontcashWilson Health04-23-2025 13:39-0400Body .26 kg[facility]04-23-2025 13:39-0400Diastolic blood ybnbxetd80 mm[Hg][facility]04-23-2025 13:39-0400 Heart rate65 /[facility]04-23-2025 13:39-0400 Respiratory rate12 /[facility]04-23-2025 13:39-0400 Systolic blood uztvrber683 mm[Hg][facility]02-27-2025 14:30-0500Body phuvmy803.8 cmJabier Aldridge DPM Work Phone: [facility] LouisWlpiniwlxv18-89-9485 14:30-0500Body mass index (BMI) [Ratio]37.31 kg/d6XlevevouJabier lAdridge DPM Work Phone: [facility] LouisOlpjlobktj97-09-9732 14:30-0500Body rdkott425.94 kgJabier Aldridge DPM Work Phone: [facility] LouisWcjpuqhltn29-04-5936 14:30-0500Respiratory rate18 /minNicchicho Aldridge DPM Work Phone: [facility] LouisQajqsbgvje26-20-5248 14:27-0500Body ylyxdr579.6 Luiz Ash MD Work Phone: [facility]02-24-2025 14:27-0500Body mass index (BMI) [Ratio]37 kg/z8EgaghAnibal Ash MD Work Phone: [facility]02-24-2025 14:27-0500Body temperature 97.39 [degF]Anibal Ash MD Work Phone: [facility]02-24-2025 14:27-0500Body hoesbd105.4 kgAnibal Ash MD Work Phone: [facility]02-24-2025 14:27-0500Diastolic blood xgrhbdze75 mm[Hg]Anibal Ash MD Work Phone: [facility]02-24-2025 14:27-0500Heart rate72 /min Anibal Ash MD Work Phone: [facility]02-24-2025 14:27-0500Respiratory rate 20 /minAnibal Ash MD Work Phone: [facility]02-24-2025 14:27-3144YmD1% (BldA) [Mass fraction]96 %Anibal Ash MD Work Phone: [facility]02-24-2025 14:27-0500Systolic blood bxuushyb520 mm[Hg]Anibal Ash MD Work Phone: [facility]01-24-2025 13:33-0500Body .8 cm[facility]01-24-2025 13:33-0500Body mass index (BMI) [Ratio]36.9 kg/d1QgcuybqgpWilson Health01-24-2025 13:33-0500Body .68 kg[facility]01-24-2025 13:33-0500Diastolic blood bbrfqvlu40 mm[Hg][facility]01-24-2025 13:33-0500 Heart rate66 /[facility]01-24-2025 13:33-0500 Respiratory rate12 /[facility]01-24-2025 13:33-0500 Systolic blood iwscfxdl241 mm[Hg][facility]12-19-2024 15:01-0500Body wurnti614.8 cmRadameschicho Brown DPM Work Phone: [facility] LouisZrerdpwbxp97-02-2555 15:01-0500Body mass index (BMI) [Ratio]37.31 kg/z6Atyevhbe Brown DPM Work Phone: [facility] LouisOipefspsft31-51-2180 15:01-0500Body sthfku871.94 kgNicholas Brown DPM Work Phone: [facility] LouisPdyuwyrbfx81-97-2060 15:01-0500Respiratory rate16 /minJabier Brown DPM Work Phone: [facility] LouisNwfdhzxjex59-57-4612 14:31-0500Body obttrh743.6 cmIdalmis Basilio STUMPER FELLER.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 Work Phone: [facility]11-18-2024 14:31-0500Body mass index (BMI) [Ratio]36.97 kg/x9GkrkukIdalmis Basilio STUMPER FELLER.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 Work Phone: [facility]11-18-2024 14:31-0500Body temperature 97 [degF]Idalmis Praful STUMPER FELLER.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 Work Phone: [facility]11-18-2024 14:31-0500Body hzsuyb347.3 kgBrandynimee Praful STUMPER FELLER.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 Work Phone: [facility]11-18-2024 14:31-0500Diastolic blood jlfgbzju12 mm[Hg]Idalmis Praful STUMPER FELLER.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 Work Phone: [facility]11-18-2024 14:31-0500Heart rate65 /min Idalmis Praful STUMPER FELLER.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 Work Phone: [facility]11-18-2024 14:31-0500Respiratory rate 18 /minBrandynimee Praful STUMPER FELLER.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 Work Phone: [facility]11-18-2024 14:31-4356QwE8% (BldA) [Mass fraction]97 %Idalmis Praful STUMPER FELLER.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 Work Phone: [facility]11-18-2024 14:31-0500Systolic blood uoqrpjsu548 mm[Hg]Idalmis Praful STUMPER FELLER.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 Work Phone: [facility]10-21-2024 14:38-0400Body wlkteg871.8 cmWilson [facility]10-21-2024 14:38-0400Body mass index (BMI) [Ratio]36.2 kg/d9ZadhxwqfsWilson Health10-21-2024 14:38-0400Body taruys347.53 kgWilson [facility]10-21-2024 14:38-0400Diastolic blood mm[Hg][facility]10-21-2024 14:38-0400 Heart rate70 /[facility]10-21-2024 14:38-0400 Respiratory rate12 /[facility]10-21-2024 14:38-0400 Systolic blood awirnkxn886 mm[Hg][facility]10-10-2024 15:30-0400Body goxaoo279.8 cmJabier Aldridge DPM Work Phone: [facility] LouisEacvovahyr52-16-7168 15:30-0400Body mass index (BMI) [Ratio]37.31 kg/i2AxzfejhjJabier Aldridge DPM Work Phone: [facility] LouisOoajnbdjgj37-30-8390 15:30-0400Body ibwdhd922.94 kgJabier Aldridge DPM Work Phone: [facility] LouisBwxokppzau65-15-8482 15:30-0400Respiratory rate17 /minJabier Aldridge DPM Work Phone: [facility] LouisPtgcchjaeq22-25-7253 13:32-0400Body oronyw880.6 Luiz Ash MD Work Phone: [facility]08-19-2024 13:32-0400Body mass index (BMI) [Ratio]38.03 kg/q4ZbmgpAnibal Ash MD Work Phone: [facility]08-19-2024 13:32-0400Body temperature 97.59 [degF]Anibal Ash MD Work Phone: [facility]08-19-2024 13:32-0400Body xfanos433.6 kgAnibal Ash MD Work Phone: [facility]08-19-2024 13:32-0400Diastolic blood xhuvefds60 mm[Hg]Anibal Ash MD Work Phone: [facility]08-19-2024 13:32-0400Heart rate91 /min Anibal Ash MD Work Phone: [facility]08-19-2024 13:32-0400Respiratory rate 20 /minAnibal Ash MD Work Phone: [place] [address]-19-2024 13:32-1257VeV2% (BldA) [Mass fraction]100 %Anibal Ash MD Work Phone: [facility]08-19-2024 13:32-0400Systolic blood mm[Hg]Anibal Ash MD Work Phone: [facility]07-26-2024 14:290400Body urisdz982.8 cmWilson [facility]07-26-2024 14:290400Body mass index (BMI) [Ratio]37.2 kg/g4QyqcckornWilson Health07-26-2024 14:0400Body uoldpf472.7 kgWilson [facility]07-26-2024 14:290400Diastolic blood kdmikjtp49 mm[Hg][facility]07-26-2024 14:290400 Heart rate84 /[facility]07-26-2024 14:290400 Respiratory rate20 /[facility]07-26-2024 14:29-0400 Systolic blood bayxmosc502 mm[Hg][facility]05-24-2024 11:310400Body wxuzzg728.8 cmWilson [facility]05-24-2024 11:31-0400Body mass index (BMI) [Ratio]36.9 kg/q5AqwqaanxgWilson Health05-24-2024 11:310400Body wuktlg995.8 kgWilson [facility] 08-15-2023 11:31-0400Diastolic blood mxvnyyhs72 mm[Hg][facility]05-24-2024 11:31-0400Heart rate62 /[facility] 08-15-2023 11:31-0400Respiratory rate16 /[facility] 08-15-2023 11:31-0400Systolic blood gxyuzvmu364 mm[Hg][facility]05-20-2024 13:01-0400Body mass index (BMI) [Ratio]37.39 kg/w2KcelbAnibal Ash MD Work Phone: [facility]05-20-2024 13:0400Body temperature 97.5 [degF]Anibal Ash MD Work Phone: [facility]05-20-2024 13:01-0400Body ucirrs766.6 kgAnibal Ash MD Work Phone: [facility]05-20-2024 13:01-0400Diastolic blood mvtzusai94 mm[Hg]Anibal Ash MD Work Phone: [facility]05-20-2024 13:01-0400Heart rate76 /min Anibal Ash MD Work Phone: [facility]05-20-2024 13:01-0400Respiratory rate 16 /minAnibal Ash MD Work Phone: [facility]05-20-2024 13:01-0583WeQ1% (BldA) [Mass fraction]94 %Anibal Ash MD Work Phone: [facility]05-20-2024 13:01-0400Systolic blood mm[Hg]Anibal Ash MD Work Phone: [facility]04-12-2024 14:44-0400Body kvixxy956.8 [facility]04-12-2024 14:44-0400Body mass index (BMI) [Ratio]37.5 kg/c9GzyrhwiibWilson Health04-12-2024 14:44-0400Body dqyhww175.89 kgWilson [facility]04-12-2024 14:44-0400Diastolic blood senuyfng21 mm[Hg][facility]04-12-2024 14:44-0400 Heart rate82 /[facility]04-12-2024 14:44-0400 Respiratory rate20 /[facility]04-12-2024 14:44-0400 Systolic blood gkwgszuk969 mm[Hg][facility]02-20-2024 12:24-0500Body diumbl033.8 Kenan Juarez MD Work Phone: [facility]02-20-2024 12:24-0500 Body mass index (BMI) [Ratio]37.52 kg/m2Julian Juarez MD Work Phone: [facility]02-20-2024 12:24-0500 Body dquvyndwncc87.59 [degF]Julian Juarez MD Work Phone: [facility]02-20-2024 12:24-0500 Body .62 kgJulian Juarez MD Work Phone: [facility]10-11-2023 14:00-0400 Body xvhyrd732.8 cmBenjamin Ball Other [employer] Other 10-11-2023 14:00-0400Body mass index (BMI) [Ratio] 37.02 kg/x2Erpxjkmj Ball Other [employer] Other 10-11-2023 14:00-0400Body .03 kgBenjamin Ball Other [employer] Other 10-11-2023 14:00-0400Diastolic blood zzdksivy60 mm[Hg] Danilo Ball Other [employer] Other 10-11-2023 14:00-0400Respiratory rate16 /minBenjamin Ball Other [employer] Other 10-11-2023 14:00-0400Systolic blood mm[Hg] Danilo Ball Other [employer] Other 07-11-2023 14:00-0400Body gybopy460.8 cmBenjamin Ball Other [employer] Other 07-11-2023 14:00-0400Body mass index (BMI) [Ratio] 37.16 kg/z7Gsqsffwn Ball Other [employer] Other 07-11-2023 14:00-0400Body qtruxg506.48 kgBenjamin Ball Other [employer] Other 07-11-2023 14:00-0400Diastolic blood wvemkxyg15 mm[Hg] Danilo Ball Other [employer] Other 07-11-2023 14:00-0400Respiratory rate20 /minBenjamin Ball Other [employer] Other 07-11-2023 14:00-0400Systolic blood mjnkcwyp417 mm[Hg] Danilo Ball Other [employer] Other 04-11-2023 16:00-0400Body ehhqes983.8 cmBenjamin Ball Other [employer] Other 04-11-2023 16:00-0400Body mass index (BMI) [Ratio] 37.33 kg/v7Dzhzpksq Ball Other [employer] Other 04-11-2023 16:00-0400Body .03 kgBenjamin Ball Other [employer] Other 04-11-2023 16:00-0400Diastolic blood dcbekmfk92 mm[Hg] Danilo Ball Other [employer] Other 04-11-2023 16:00-0400Respiratory rate12 /minBenjamin Ball Other [employer] Other 04-11-2023 16:00-0400Systolic blood mm[Hg] Danilo Ball Other [employer] Other 01-10-2023 14:30-0500Body wiqlxb327.8 cmBenemeterio Clark Other [employer] Other 01-10-2023 14:30-0500Body mass index (BMI) [Ratio] 37.76 kg/n3Egovfghu Ball Other [employer] Other 01-10-2023 14:30-0500Body cfrzqu242.39 kgBenemeterio Clark Other [employer] Other 01-10-2023 14:30-0500Diastolic blood gxvletjl57 mm[Hg] Danilo Clark Other [employer] Other 01-10-2023 14:30-0500Respiratory rate20 /minBelinda Clark Other [employer] Other 01-10-2023 14:30-0500Systolic blood mm[Hg] Danilo Clark Other [employer] Other Encounters Encounter DateEncounter TypeCare ProviderFacilityStart: 01-10-2025 End: 10-93-0364faqbmwvzycLjsiwjnq Ball DO Work Phone: [facility]Start: 01-10-2025 End: 95-95-0921Anpqeef encounter procedureBenemeterio Ball DO-[facility] Work Phone: Start: 11-24-2024 End: 42-68-4953Gobwlx outpatient visit 25 minutesIdalmis Basilio APRN.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 Work Phone: Hematology/OncologyComment on above: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); Mass of ear auricle, left; 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 (HCC); Stage 3a chronic kidney disease (HCC); 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)Start: 11-24-2024 End: 69-77-0271hyuncqjhuuTGCJHZZM E BALLFacility:[facility] Centertart: 02-46-5234Qxg-patient / Non-visitAnibal Ash MD-[facility] Work Phone: Start: 11-17-2024 End: 73-47-0335wfinpmiigoBKNFFGQQ Que BALLFacility:[facility] Centertart: 10-15-2024 End: 07-72-0906lhfotsokgzXpzsbymd Ball DO Work Phone: [facility] Work Phone: Start: 10-15-2024 End: 04-31-2225Wtfqvbc encounter procedureBelinda Ball DO-[facility] Work Phone: Start: 10-14-2024 End: 38-80-9923Ptqvlok encounter procedureJabier Aldridge DPM Work Phone: noms CI PODIATRYComment on above:Diabetes mellitus due to underlying condition with diabetic polyneuropathy, unspecified whether continuous churn buttermaker insulin use (HCC) (Primary Dx); Pain due to onychomycosis of toenails of both feet; Acquired deformity of right toe; Acquired deformity of left toeStart: 10-14-2024 End: 97-23-9498kdktvbcftwUFRZPEXW A BROWNNot AvailableStart: 10-14-2024 End: 92-79-2224Ndgiyekelvin Aldridge DPM Work Phone: noMS CI PODIATRYStart: 10-14-2024 End: 66-53-0100Ocwnbukelvin Aldridge DPM Work Phone: noms CI PODIATRYStart: 10-12-2024 End: 91-78-7301Baqypgu encounter Ramírez Donis APRN.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 Work Phone: palliative MedicineComment on above:Palliative care by specialist (Primary Dx); 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 (HCC); Parotid neoplasm; Chronic pain due to neoplasm; Constipation due to opioid therapyStart: 10-12-2024 End: 56-67-9935dpaowwiycnKIRIGYVE J BUNDRIDGEFacility:[facility] Start: 10-12-2024 End: 51-59-2218Sbpppdv encounter procedureGurpreet Pang MD Work Phone: OtolaryngologyComment on above:Parotid neoplasm (Primary Dx); Cancer of the parotid gland (HCC)Start: 10-12-2024 End: 55-93-7611znrvctqneaHEHSVV SCHARPFFacility:[facility] Centertart: 09-27-2024 End: 77-59-7976vkpquimewnDas/[place] Work Phone: Hematology/OncologyComment on above: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); Mass of ear auricle, leftStart: 09-24-2024 End: 99-64-8544Bnplzenfv department patient visitDanilo Clark DO Work Phone: [phone]-Atjscdblm Room Work Phone: Start: 09-23-2024 End: 82-88-4307Fgavlibgx encounterGurpreet Pang MD Work Phone: Head and Neck InstituteComment on above:Patient QuestionStart: 71-50-4025Ajv-patient / Non-visitCatjaleesa Clark [facility] Work Phone: Start: 56-99-4317Ydh-patient / Non-visitGurpreet Pang MD-[facility] Work Phone: Start: 84-18-1347Vpo-patient / Non-visitGurpreet Pang MD-[facility] Work Phone: Start: 35-68-8654Zeq-patient / Non-visitGurpreet Pang MD-[facility] Work Phone: Start: 09-17-2024 End: 38-78-6532twduhdkymuKWOMUVMH E BALLFacility:[facility] HospitalStart: 09-16-2024 End: 07-04-8053dhrzlwulsdKWQVMYHD E BALLFacility:[facility] HospitalStart: 09-09-2024 End: 71-46-3581Xxsxamreg encounterGabi Giovannijarochoque RNPre AnesthesiaComment on above: Anticoagulation Follow UpStart: 48-73-2371Sqy-patient / Non-visitJosechhaya Pang MD-[facility] Work Phone: Start: 09-08-2024 End: 43-75-4192Zhdwacorxg hospital visit by physicianXr [facility] Work Phone: RadiologyComment on above: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 [facility] Work Phone: Pre AnesthesiaComment on above:Mucoepidermoid carcinoma (HCC); Type 2 diabetes mellitus with diabetic chronic kidney disease, unspecified CKD stage, unspecified whether longterm insulin use (HCC); Anticoagulated; Stage 3b chronic kidney disease (HCC); 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 (HCC); Chronic pain due to neoplasm; Primary hypertension; BMI 37.0-37.9, adultStart: 09-08-2024 End: 84-70-4926icnnqmiyhuDboooq M Shimrock RT(R)RadiologyComment on above:Radio Gen RMPStart: 09-03-2024 End: 25-80-7859qumplzpjhmSnv Magalski RNPre AnesthesiaStart: 09-03-2024 End: 01-56-0527Tvggkbcrkz consultationSara Pritchett RNPre AnesthesiaComment on above:Opened In ErrorStart: 08-31-2024 End: 75-15-0847Wwpokdaqc encounterJolong Abreurpf MD Work Phone: [facility] Neck InstituteStart: 08-24-2024 End: 66-93-3652Fuhmlpa encounter procedureAngelique Donis APRN.CNP Work Phone: palliative MedicineComment on above:Palliative care by specialist (Primary Dx); Parotid neoplasm; 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 (HCC); Chronic pain due to neoplasm; Constipation due to opioid therapyStart: 08-24-2024 End: 74-69-5084utuxxujpapYCZXRNTF E BALLFacility:[facility] Centertart: 08-20-2024 End: 81-11-0308Foajldwok encounterAnibal Ash MD Work Phone: Cancer Appts MCStart: 08-19-2024 End: 91-45-8136Slcdko outpatient visit 25 minutesAnibal Ash MD Work Phone: Hematology/OncologyComment on above: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 (HCC) (Primary Dx); 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); Type 2 diabetes mellitus with diabetic chronic kidney disease, unspecified CKD stage, unspecified whether longterm insulin use (HCC)Start: 08-19-2024 End: 74-89-0851ygznzktpmtAWJLDJIL E BALLFacility:[facility] Centertart: 08-19-2024 End: 43-82-1162Yinymgt encounter procedureSkaleb Martinez MD Work Phone: Radiation OncologyComment on above:Head and neck cancer (HCC) (Primary Dx); Parotid neoplasm; Parotid massStart: 87-11-9628Ycg-patient / Non-visitAnibal Ash MD-[facility] Work Phone: Start: 08-19-2024 End: 75-73-3021zrosdupdwpYTZWGM SCHARPFFacility:[facility] Centertart: 08-13-2024 End: 42-14-2883Yjfijlc encounter procedureGurpreet Pang MD Work Phone: OtolaryngologyComment on above:Parotid neoplasm (Primary Dx); Parotid mass; 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 (HCC)Start: 08-13-2024 End: 60-80-6176uuuquxhnmrIYGYWQDL E BALLFacility:[facility] Centertart: 08-05-2024 End: 34-40-7938Xajualt encounter procedureJabier Aldridge DPM Work Phone: noMS CI PODIATRYComment on above:Diabetes mellitus due to underlying condition with diabetic polyneuropathy, unspecified whether longterm insulin use (CMS/HCC) (Primary Dx); Pain due to onychomycosis of toenails of both feet; Acquired deformity of right toe; Acquired deformity of left toeStart: 08-05-2024 End: 48-45-2003ukhzncoamnDEGNWCPK A BROWNNot AvailableStart: 08-05-2024 End: 84-88-0134Ombelu flowsBenji Aldridge DPM Work Phone: noms CI PODIATRYStart: 08-05-2024 End: 15-25-7915Ihhgok Rony Aldridge DPM Work Phone: noMS CI PODIATRYStart: 08-02-2024 End: 35-28-0290Zwakkqila encounterRafaela Rodriguez RNHematology/OncologyComment on above:ENT Path resultsStart: 07-30-2024 End: 50-76-0726Wdptppjoj encounterGurpreet Pang MD Work Phone: Mobile ServicesComment on above:30371- bill; Initial ConsultStart: 07-28-2024 End: 66-09-1659Qrptggsaf encounterGurpreet Pang MD Work Phone: OtolaryngologyStart: 07-21-2024 End: 35-01-3263kpfqukdvrlSIKBRZCV E BALLFacility:[facility] Centertart: 89-13-2815Iij-patient / Non-visitBenbrandynmin Ball DO-[facility] Work Phone: Start: 07-16-2024 End: 24-58-1299pbeewixhfqGAMVHVII E BALLFacility:[facility] Centertart: 07-14-2024 End: 66-41-1364amwczmpkhxLcwajpngxMcKitrick Hospital Work Phone: Start: 07-14-2024 End: 08-20-3497Ntlvfku encounter procedureAtrium Health Lincoln Physician [facility] Work Phone: Start: 34-00-4665Gkmspfn encounter procedureWestern Reserve Hospitaltart: 07-08-2024 End: 44-14-7442Guxsxlt encounter procedureGurpreet Pang MD Work Phone: OtolaryngologyComment on above: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 (HCC) (Primary Dx); Parotid massStart: 07-08-2024 End: 54-70-4122Yslgnhwym encounterGurpreet Pang MD Work Phone: OtolaryngologyComment on above:Biopsy RequestStart: 07-08-2024 End: 03-89-7462gxijgruhibCCBRGQOE E BALLFacility:[facility] Centertart: 05-28-2024 End: 43-09-5111jaiqhiwbkzTMKLRFEC E BALLFacility:[facility] Centertart: 05-28-2024 End: 97-65-6708Gmmsjlvpfh hospital visit by physicianArrival Time Radiology Work Phone: Radiology Pet CTComment on above:Mass of ear auricle, left [H93.8X2]Start: 05-20-2024 End: 75-48-9925Ilwcwpj encounter Jesus Aldridge DPM Work Phone: NOMS CI PODIATRYComment on above:Diabetes mellitus due to underlying condition with diabetic polyneuropathy, unspecified whether longterm insulin use (CMS/HCC) (Primary Dx); Pain due to onychomycosis of toenails of both feet; Acquired deformity of right toe; Acquired deformity of left toeStart: 05-20-2024 End: 48-94-2622efvtrbwzhnJGUWIOBC A BROWNNot AvailableStart: 05-20-2024 End: 23-91-3023Wobltw Rony Aldridge DPM Work Phone: noms CI PODIATRYStart: 05-20-2024 End: 11-23-9201Rbiwtn Rony Aldridge DPM Work Phone: noms CI PODIATRYStart: 05-17-2024 End: 46-30-4341enitbftlwnEMIPGBKQ E BALLFacility:[facility] Centertart: 05-17-2024 End: 52-36-6420Tmnkpu outpatient visit 40 minutesAnibal Ash MD Work Phone: Hematology/OncologyComment on above:Mass of ear auricle, left (Primary Dx); 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 (HCC); Thrombocytopenia (HCC); Chronic anticoagulation; Type 2 diabetes mellitus with diabetic chronic kidney disease, unspecified CKD stage, unspecified whether longterm insulin use (HCC); Stage 3b chronic kidney disease (HCC)Start: 05-17-2024 End: 91-05-7996Euwppvlln encounterAnibal Ash MD Work Phone: Cancer Appts MCComment on above:Future Appointment Start: 05-10-2024 End: 71-84-1842oevpnwxqsqCGICDWRC E BALLFacility:[facility] Centertart: 94-95-2123Nyj-patient / Non-visitFirwinchester medical center Phys[facility] Work Phone: Start: 04-16-2024 End: 24-26-7411ercmaqtsgkFjijkdhcmMcKitrick Hospital Work Phone: Start: 04-16-2024 End: 28-44-4842Fzdcaca encounter procedureAtrium Health Lincoln Physician GroupToledo Hospital Work Phone: Start: 03-11-2024 End: 31-24-8304Bzqfmty encounter Jesus Aldridge DPM Work Phone: noms CI PODIATRYComment on above:Diabetes mellitus due to underlying condition with diabetic polyneuropathy, unspecified whether continuous churn buttermaker insulin use (CMS/HCC) (Primary Dx); Pain due to onychomycosis of toenails of both feet; Acquired deformity of right toe; Acquired deformity of left toeStart: 03-11-2024 End: 74-49-4144qbviqhygriKYBXAGCR A BROWNNot AvailableStart: 03-11-2024 End: 36-71-0052Licxlp flowsBenji Aldridge DPM Work Phone: noms CI PODIATRYStart: 03-11-2024 End: 97-86-4572Erbgbx Rony Aldridge DPM Work Phone: noms CI PODIATRYStart: 02-09-2024 End: 53-58-4174cjsyzhexrkBIUWJZXU E BALLFacility:[facility] Centertart: 02-09-2024 End: 66-66-7235Masahc outpatient visit 25 minutesIdalmis Basilio APRN.CNP Work Phone: Hematology/OncologyComment on above: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 (HCC) (Primary Dx); Stage 3a chronic kidney disease (HCC)Start: 02-02-2024 End: 12-79-9157nndcnwqkunNFTUDOWO E BALLFacility:[facility] Centertart: 56-79-2883Tyy-patient / Non-visitAtrium Health Lincoln Physician Group-[facility] Work Phone: Start: 01-12-2024 End: 27-99-6710izhcjlcxjsGockbambjTrinity Health System [facility] Campus Work Phone: Start: 01-12-2024 End: 63-44-7012Okrxfbv encounter procedureRobertpacoimajuan Physician GroupToledo Hospital Work Phone: Start: 01-01-2024 End: 94-84-4296Ucqnjed encounter Jesus Aldridge DPM Work Phone: noms CI PODIATRYComment on above:Diabetes mellitus due to underlying condition with diabetic polyneuropathy, unspecified whether continuous churn buttermaker insulin use (CMS/[facility]) (Primary Dx); Pain due to onychomycosis of toenails of both feet; Acquired deformity of right toe; Acquired deformity of left toeStart: 01-01-2024 End: 94-81-3456odxjxrbhszGCAPKTLB A BROWNNot AvailableStart: 01-01-2024 End: 35-87-4946Sxcsmf flowsBenji Aldridge DPM Work Phone: noms CI PODIATRYStart: 01-01-2024 End: 60-89-2384Yzjdei Rony Aldridge DPM Work Phone: noms CI PODIATRYStart: 11-10-2023 End: 02-42-2326Dbkwts outpatient visit 25 minutesAnibal Ash MD Work Phone: Hematology/OncologyComment on above: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 (HCC) (Primary Dx); Stage 3a chronic kidney disease (HCC); Thrombocytopenia (HCC)Start: 13-90-6685Etu-patient / Non-visitAtrium Health Lincoln Physician [facility] Work Phone: Start: 10-23-2023 End: 88-56-3392napbhozunzDTFRMEEB A BROWNNot AvailableStart: 10-17-2023 End: 51-49-6587ydpgjvrrxfMifibbnvhTrinity Health System [facility] Campus Work Phone: Start: 10-17-2023 End: 99-62-1472Qtttayx encounter procedureAtrium Health Lincoln Physician GroupToledo Hospital Work Phone: Start: 68-45-1774Gcd-patient / Non-visitAtrium Health Lincoln Physician [facility] Work Phone: Start: 08-29-2023 End: 04-25-0115Ovozndnhcj hospital visit by physicianArrival Time Radiology Work Phone: Radiology Pet CTComment on above: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 (HCC) [C90.00]Start: 45-34-4032kytlwifevzQnyovvzctTrinity Health System West Campus Work Phone: Start: 68-86-8104Rwv-patient / Non-visitAtrium Health Lincoln Physician [facility] Work Phone: Start: 08-15-2023 End: 78-08-4915awuucxsarhMazbdtavmTrinity Health System West Campus Work Phone: Start: 08-15-2023 End: 73-72-8674Lkdyzof encounter procedureAtrium Health Lincoln Physician Group-[facility] Work Phone: Start: 08-10-5609Lvwukgizj encounterAnibal Ash MD Work Phone: Cancer Appts MCComment on above:ResultsStart: 08-11-2023 End: 47-10-5723Nadgrk outpatient visit 25 minutesAnibal Ash MD Work Phone: Hematology/OncologyComment on above: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 (HCC) (Primary Dx); Flank pain; Mild episode of recurrent major depressive disorder (HCC); Thrombocytopenia (HCC); Stage 3b chronic kidney disease (HCC); Stage 3a chronic kidney disease (HCC)Start: 53-66-8257Kxh-patient / Non-visit [facility]St[facility] Work Phone: Start: 35-64-2720Fif-patient / Non-visitAtrium Health Lincoln Physician [facility] Work Phone: Start: 82-94-5437Gpy-patient / Non-visitAtrium Health Lincoln Physician GroupSt. [facility] Work Phone: Start: 07-04-2023 End: 78-79-9868awlbzexzdsPxxpaawutTrinity Health System [facility] Campus Work Phone: Start: 07-04-2023 End: 09-03-3102Cevjvvz encounter procedureAtrium Health Lincoln Physician Group-[facility] Work Phone: Start: 29-91-3175Oos-patient / Non-visitAtrium Health Lincoln Physician GroupSt. [facility] Work Phone: Start: 23-91-7953owrawqahdiNMCTrinity Health Systemtart: 05-13-2023 End: 83-27-2445rpynaolgncPKV P REZAEETrinity Health System [facility] Campus AmbulatoryStart: 05-13-2023 End: 85-02-7812Oopqaf outpatient new 60 minutesRod Kristi Juarez MD Work Phone: uh [facility] HospitalComment on above:Parotid mass (Primary Dx)Start: 02-27-2023 End: 98-48-6664ejzusrijvdEsfkbhuj Ball Other [employer] Other Start: 85-72-9116Eyycsgymy encounterBenjamin BallFPG [facility] Medical ClinicStart: 02-04-2023 End: 64-39-6642lhroagjvybOucmcggg Ball Other [employer] Other Start: 15-56-0418Lexqlncyg encounterBenjamin BallFP[facility] Medical ClinicStart: 02-03-2023 End: 62-92-0272vmkpivbdaxCamdvcub Ball Other [employer] Other Start: 12-11-7045Mhdgvnasg encounterBenjamin BallFP[facility] ClinicStart: 01-30-2023 End: 01-12-1477ehbgazrgslMnwhtrtq Ball Other [employer] Other Start: 91-16-5191Zzdrylbvv encounterBenjamin BallFP[facility] Medical ClinicStart: 01-21-2023 End: 92-03-2539cpphpgzggaMmxohkpt Ball Other [employer] Other Start: 80-86-5322Ptbfolaeb encounterBenjamin BallFP[facility] ClinicStart: 01-09-2023 End: 26-40-3831mkokgihbgtVeblnqyb Ball Other [employer] Other Start: 51-76-5188Vetdcybsr encounterBenjamin BallFP[facility] ClinicStart: 01-06-2023 End: 96-64-4923usbqhurdjsZmtnkxuj Ball Other [employer] Other Start: 80-34-6249Kkodritvl encounterBenjamin BallFP[facility] ClinicStart: 01-01-2023 End: 83-98-5893yuugvjkfznEpnxgsgx Ball Other [employer] Other Start: 67-03-7832Eevbly outpatient visit 25 minutes Danilo BallFP[facility] ClinicStart: 10-01-2022 End: 97-03-7947nrmrjvvyjsGntmqruv Ball Other [employer] Other Start: 77-97-2465Pzadlr outpatient visit 25 minutes Danilo BallFP[facility] ClinicStart: 08-01-2022 End: 29-01-3933kqokdaayryMxuyhusb Ball Other [employer] Other Start: 44-18-7905Sbhqgxfvw encounterBenjamin BallFP[facility] ClinicStart: 07-22-2022 End: 27-48-8239rxnqwkjaouOLMDRT H FAWWADFacility:Y4Ypbqr: 07-03-2022 End: 80-45-6019nqdztrwfkxQqmtnuqg Ball Other [employer] Other Start: 34-35-2158Txdcvfezf encounterBenjamin BallFP[facility] ClinicStart: 07-02-2022 End: 75-59-5870kahabuetdtUnohvpzt Ball Other [employer] Other Start: 34-03-1926Ixvyeqw encounter procedureBenjamin BallFP[facility] ClinicStart: 06-24-2022 End: 40-98-4060yuapaksmdkHOAMIJ H FAWWADFacility:A2Jvbkl: 05-31-2022 End: 30-26-3097ucknuvpnkkXmatkqnh Ball Other [employer] Other Start: 33-47-6259Sdgpehoti encounterBenjamin BallFP[facility] Medical ClinicStart: 05-22-2022 End: 11-35-7150siroetohbmATVRLA H FAWWADFacility:F2Dtqkp: 05-10-2022 End: 48-02-2082qictslwqerLugyobjs Ball Other [employer] Other Start: 13-83-1874Rbzjxcmjl encounterBenjamin BallFP[facility] ClinicStart: 05-01-2022 End: 77-36-1196euzqjbjxlpQvxfzidu Ball Other [employer] Other Start: 99-69-6874Irpykkeww encounterBenjamin BallFP[facility] ClinicStart: 04-30-2022 End: 03-81-3658onleigoamyPB DANILO [place] [employer] Other Start: 97-94-6084Edufdluax encounterBenjamin BallFP[facility] ClinicStart: 04-24-2022 End: 27-20-8602cyenmkjgmpTVAPWK H FAWWADFacility:C8Qxglo: 04-02-2022 End: 45-86-3661uirmrjumhvOdjiatid Ball Other [employer] Other Start: 35-63-3839Oiokkl outpatient visit 25 minutes Danilo BallFP[facility] Medical ClinicStart: 03-25-2022 End: 95-97-1126bkeaetvwwhMDBTCK H FAWWADFacility:O1Llkke: 02-21-2022 End: 47-51-6512pukzrilqsrXEVCEQ H FAWWADFacility:Z0Yqjcx: 02-11-2022 End: 11-50-9126rbcwbkraukUquvrNicole Ash MD Work Phone: Hematology/OncologyComment on above: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) [C90.01 (ICD-10-CM)] (Primary Dx)Start: 02-11-2022 End: 61-09-3598Zbpmvokkoaeb consultation with Kristina Ash MD Work Phone: SANDUSKYStart: 02-01-2022 End: 98-95-4749zmpanflrsqGtcbwNicole Ash MD Work Phone: Hematology/OncologyComment on above: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 (HCC) (Primary Dx)Start: 02-01-2022 End: 01-19-5099Dtffhcxkomzw consultation with Kristina Ash MD Work Phone: SANDUSKYStart: 01-22-2022 End: 18-81-9427whkzdbwggsFAFWUY H FAWWADFacility:G8Ekgke: 01-09-2022 End: 76-75-8102xzpnvachykQD DANILO BALLFacility:X0Voijc: 12-23-2021 End: 07-99-7368ymewyvvaeiGNKXYH H FAWWADFacility:K4Exvpt: 11-22-2021 End: 05-17-8753pebntvyzrpLREPZU H FAWWADFacility:R0Wuytc: 10-22-2021 End: 37-14-1893yutndyleqoTRNIAR H FAWWADFacility:A8Erpof: 10-03-2021 End: 12-85-5013vbluzvctquFG DANILO BALLFacility:J1Edkav: 10-03-2021 End: 95-73-3658vsvamqfcnnELKESC H FAWWADFacility:Z7Inqok: 57-47-1974Bhwwz health examinationBenemeterio Clark Other [facility] [employer] Other Start: 04-28-2017 End: 85-66-1535VvrzxlvjleGkcyork AdamowiczFacility:FTMCStart: 04-24-2017 End: 09-26-2386GzjggtywghCthvgge AdamowiczFacility:[facility] CENTERtart: 02-03-2017 End: 68-36-9580JqpuqmxfhzSblvzpa~[id number] UNKNOWN HoyFacility:[facility] Procedures DateProcedureProcedure DetailPerforming ClinicianStart: 47-85-6869Fkdepijfmh exam chest 2 viewsGurpreet Pang MD Work Phone: Start: 08-22-4165Ccfvoe-up visitFollow UpGURPREET MENDOZAFStart: 66-83-6892Ox soft tissue neck w/contrast materialViveedgar Ash MD Work Phone: Start: 11-36-4408Lhd imaging for ct attenuation whole bodyAnibal Ash MD Work Phone: Start: 49-60-5516Zndw bld gluc mntr dev cleared fda spec home useCcf ProviderStart: 94-58-8678Dxsczsxvr for malignant neoplasm of colonBenjamin Ball Other Start: 30-85-6036Rmduwhlow for malignant neoplasm of prostateBenjamin Ball Other Depression screeningBenjamin Ball Other Depression screeningBenjamin Ball Other Plan of Treatment DateCare ActivityDetailAuthorStart: 82-78-6442Jppxyeozx B screeningUrine Albumin:Creatinine RatioWhite Bluff ClinicStart: 02-23-2025 End: 00-32-3964Csajpb-up nmddwcpcy12/03/2025 2:00 PM EST Visit (SP) Office Hematology/Oncology [address] [place], [place] [phone] Anibal Ash MD [address] [place] [address] [place] [address] 3 month follow up with Dr Blas / lab results Hematology/OncologyComment on above:[address] follow up [address] Blas / lab results Start: 75-44-2767Kmimxbokit A1c fbfnnaviktbZuM5AMdxpokcoi ClinicStart: 02-16-2025 End: 33-76-6335Slkgbgo encounter munhbnxjr86/26/2025 2:00 PM EST Office Visit [facility] [address] [place] [address] 3 [facility] labN[facility]Holland [facility] Comment on above:3 month labStart: 48-07-8255LSILZXTL SCREENDIABETES SCREEN [facility]ertart: 11-24-2024 End: 72-46-1919Xqxpop-up odtvwzjna93/03/2025 10:40 AM EDT Visit (SP) Office Hematology/Oncology [address] [place] [address] Anibal Ash MD [address] [place] [address] 3 month follow upHematology/OncologyComment on above:3 month follow upStart: 73-74-7573Dpiqrvxxu vaccinationFulton County Health Centertart: 11-19-2024 End: 26-86-0401Zblb-2-Microglobulin [Mass/volume] in Serum or PlasmaB2 MICROGLOBULIN Lab Routine 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 (HCC) 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) Expected: 11/19/2024 (Approximate), Expires: 08/19/2025[facility] Work Phone: Comment on above:Expected: 11/19/2024 (Approximate), Expires: 08/19/2025Start: 11-19-2024 End: 48-42-7346Ilunapm.ionized [Moles/volume] in BloodCALCIUM, IONIZED Lab Routine 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 (HCC) 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) Expected: 11/19/2024 (Approximate), Expires: 08/19/2025 [facility]Comment [facility]:Expected: 11/19/2024 (Approximate), Expires: 08/19/2025Start: 11-19-2024 End: 43-51-2528WDS W Auto Differential panel - BloodCOMPLETE BLOOD COUNT AND DIFFERENTIAL Lab Routine 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 (HCC) 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) Expected: 11/19/2024 (Approximate), Expires: 08/19/2025[facility] ClinicComment on above:Expected: 11/19/2024 (Approximate), Expires: 08/19/2025Start: 11-19-2024 End: 05-48-0981Gcndgspwwopsc metabolic 2000 panel - Serum or PlasmaCOMPREHENSIVE METABOLIC PANEL Lab Routine 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 (HCC) CA -cancer of parotid gland (HCC) Expected: 11/19/2024 (Approximate), Expires: 08/19/2025[facility] ClinicComment on above:Expected: 11/19/2024 (Approximate), Expires: 08/19/2025Start: 11-19-2024 End: 43-29-8529BIOZA/COTA,FREE,SERKAPPA/COTA,FREE,SER Lab Routine 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 (HCC) CA - cancer ofparotid gland (HCC) Expected: 11/19/2024 (Approximate), Expires: 02/18/2025[facility] ClinicComment on above:Expected: 11/19/2024 (Approximate), Expires: 02/18/2025Start: 11-19-2024 End: 02-39-7998Cvsyflt dehydrogenase [Enzymatic activity/volume] in Serum or PlasmaLACTATE DEHYDROGENASE Lab Routine 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 (HCC) 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) Expected: 11/19/2024 (Approximate), Expires: 08/19/2025[facility] ClinicComment on above:Expected: 11/19/2024 (Approximate), Expires: 08/19/2025Start: 11-19-2024 End: 29-39-9157NFPJSTBAJW PROTEIN, SERUM (BLOOD)MONOCLONAL PROTEIN, SERUM (BLOOD) Lab Routine 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 (HCC) 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) Expected: 11/19/2024 (Approximate), Expires: 08/19/2025[facility] ClinicComment on above:Expected: 11/19/2024 (Approximate), Expires: 08/19/2025Start: 11-19-2024 End: 96-21-0267Rhmzcwibq [Mass/volume] in Serum or PlasmaPHOSPHORUS INORGANIC Lab Routine 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 (HCC) 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) Expected: 11/19/2024 (Approximate), Expires: 08/19/2025 [facility] ClinicComment on above:Expected: 11/19/2024 (Approximate), Expires: 08/19/2025Start: 11-19-2024 End: 84-52-6495ZARAFEX ELECTROPHORESIS SERUM W/INTERPPROTEIN ELECTROPHORESIS SERUM W/INTERP Lab Routine 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 (HCC) 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) Expected: 11/19/2024 (Approximate), Expires: 08/19/2025[facility] ClinicComment on above:Expected: 11/19/2024 (Approximate), Expires: 08/19/2025Start: 11-19-2024 End: 55-38-6363Ffjlc [Mass/volume] in Serum or PlasmaURIC ACID Lab Routine 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 (HCC) CA - cancer of parotid gl and (HCC) Expected: 11/19/2024 (Approximate), Expires: 08/19/2025[facility] ClinicComment on above:Expected: 11/19/2024 (Approximate), Expires: 08/19/2025 Start: 11-19-2024 End: 99-90-6919qhvhckopql69/29/2025 1:45 PM EDT Results Only [place] [facility] Laboratory [address] [facility] [place] [address] Znbjgs [facility] LaboratoryStart: 11-17-2024 End: 49-17-6433Zjhpumx encounter gnsyrznkp23/27/2025 2:30 PM EDT Office Visit [facility] [address] [place] [address] labsNortHolland Hospital LaboratoryComment on above:labsStart: 10-14-2024 End: 12-30-8591Kcsrpmb encounter /24/2025 4:00 PM EDT Procedure Visit [facility] [address] [facility] [address] [place] [phone] Jabier Aldridge, JAGDISH [address] [facility] [address] [place] [address] Diabetes mellitus due to underlying condition with diabetic polyneuropathy, unspecified whether continuous churn buttermaker insulin use (HCC) (Primary Dx); Pain due to onychomycosis of toenails of both feet; Acquired deformity of right toe; Acquired deformity of left toeNOMS CI PODIATRYComment on above:Diabetes mellitus due to underlying condition with diabetic polyneuropathy, unspecified whether longterm insulin use (HCC) (Primary Dx); Pain due to onychomycosis of toenails of both feet; Acquired deformity of right toe; Acquired deformity of left toeStart: 10-12-2024 End: 96-79-4729Iwambvo encounter zaycjneve71/22/2025 2:30 PM EDT Office Visit Palliative Medicine [address] [place] [address] [place] [address] Angelique Donis, STUMPER FELLER.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 [address] [place] [address] 7 WEEK FOLLOW UPPalliative MedicineComment on above:7 WEEK FOLLOW UPStart: 10-12-2024 End: 43-85-6779Agfnesc encounter qxkaslelr27/22/2025 10:45 AM EDT Office Visit Otolaryngology [address] [address] Gurpreet Pang MD [address] [address] POST OPOtolaryngologyComment on above:POST OPStart: 09-17-2024 End: 92-76-5794Gftvcnvau to same day surgery okudgg8309/17/2024 7:30 AM EDT - 09/17/2024 11:25 AM EDT Surgery Admitting [address] [place] [address] Gurpreet Pang MD [address] [address] PAROTIDECTOMYAdmittingComment on above:PAROTIDECTOMYStart: 09-17-2024 End: 26-88-0899Stn prtd kelsey/prtd glnd lat dsj&prsrv facial nrPAROTIDECTOMY Mucoepidermoid carcinoma (HCC) 09/17/2024 7:30 AM EDTMC MAIN PAVILIONStart: 49-94-3239Hkfupkpfbg hospital visit by ejlmvohcm27/27/2025 7:30 AM EDT Hospital Encounter Admitting [address] [place] [address] Gurpreet Pang MD [address] [place] [address] 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]AdmittingComment on above: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]Start: 09-07-2024 End: 75-85-1016Bxerss-up qkoqvwkyn83/17/2025 2:00 PM EDT Visit (SP) Office Hematology/Oncology [address] [place], [place] [phone] Anibal Ash MD [address] [place] [address] 13 week follow upHematology/OncologyComment on above:13 week follow upStart: 09-01-2024 End: 58-60-3058narqsguwni60/11/2025 2:15 PM EDT Results Only [place] [facility] Laboratory [address] [place] [address] Kigrcv [facility] LaboratoryStart: 09-01-2024 End: 46-56-7010Ymrsvda encounter frmmfscla17/11/2025 1:45 PM EDT Appointment Radiology [address] [place] [address] VpwjwtjdoZzdfq: 09-01-2024 End: 16-23-6051Pdhsfw-up socvvjggu16/11/2025 11:40 AM EDT Visit (SP) Office Hematology/Oncology [address] [place] [address] Anibal Ash MD [address] [place] [address] 13 week follow upHematology/OncologyComment on above:13 week follow upStart: 08-31-2024 End: 28-62-2345Daigt metabolic 2000 panel - Serum or PlasmaBASIC METABOLIC PANEL Lab Routine Mucoepidermoid carcinoma (HCC) Expected: 08/31/2024, Expires: leveland ClinicComment on above:Expected: 08/31/2024, Expires: 11/30/2024 Start: 08-31-2024 End: 18-16-3039CUL panel - Blood by Automated countCOMPLETE BLOOD COUNT Lab Routine Mucoepidermoid carcinoma (HCC) Expected: 08/31/2024, Expires: 11/30/2024 [facility] CenterComment on above:Expected: 08/31/2024, Expires: 11/30/2024Start: 08-25-2024 End: 38-47-6958Gjuj-2-Microglobulin [Mass/volume] in Serum or PlasmaB2 MICROGLOBULIN Lab Routine 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 (HCC) Expected: 08/25/2024 (Approximate), Expires: 06/02/2025[facility] Work Phone: Comment on above:Expected: 08/25/2024 (Approximate), Expires: 06/02/2025Start: 08-25-2024 End: 36-44-0917Qockeuk.ionized [Moles/volume] in BloodCALCIUM, IONIZED Lab Routine 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 (HCC) Expected: 08/26/19 25 (Approximate), Expires: 06/02/2025[facility] ClinicComment on above:Expected: 08/25/2024 (Approximate), Expires: 06/02/2025Start: 08-25-2024 End: 49-45-8592YZE W Auto Differential panel - BloodCOMPLETE BLOOD COUNT AND DIFFERENTIAL Lab Routine 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 (HCC) Expected: 08/25/2024 (Approximate), Expires: 06/02/2025[facility] ClinicComment on above:Expected: 08/25/2024 (Approximate), Expires: 06/02/2025Start: 08-25-2024 End: 49-20-4579Whlcabzuwtnrq metabolic 2000 panel - Serum or PlasmaCOMPREHENSIVE METABOLIC PANEL Lab Routine 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 (HCC) Expected: 08/25/2024 (Approximate), Expires: 06/02/2025[facility] Comment on above:Expected: 08/25/2024 (Approximate), Expires: 06/02/2025Start: 08-25-2024 End: 51-80-1074VIJQA/COTA,FREE,SERKAPPA/COTA,FREE,SER Lab Routine 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 (HCC) Expected: 08/25/2024 (Approximate), Expires: 11/24/2024[facility] ClinicComment on above:Expected: 08/25/2024 (Approximate), Expires: 11/24/2024Start: 08-25-2024 End: 49-96-6487Fzxhgay dehydrogenase [Enzymatic activity/volume] in Serum or PlasmaLACTATE DEHYDROGENASE Lab Routine 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 (HCC) Expected: 08/25/2024 (Approximate), Expires: 06/02/2025[facility] ClinicComment on above:Expected: 08/25/2024 (Approximate), Expires: 06/02/2025 Start: 08-25-2024 End: 80-45-9954AZWXOUNBDS PROTEIN, SERUM (BLOOD)MONOCLONAL PROTEIN, SERUM (BLOOD) Lab Routine 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 (HCC) E xpected: 08/25/2024 (Approximate), Expires: 06/02/2025[facility] ClinicComment on above:Expected: 08/25/2024 (Approximate), Expires: 06/02/2025Start: 08-25-2024 End: 04-90-6331Yrsvontta [Mass/volume] in Serum or PlasmaPHOSPHORUS INORGANIC Lab Routine 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 (HCC) Expected: 06/2024 (Approximate), Expires: 06/02/2025[facility] ClinicComment on above: Expected: 08/25/2024 (Approximate), Expires: 06/02/2025Start: 08-25-2024 End: 36-06-6826DHYKIVS ELECTROPHORESIS SERUM W/INTERPPROTEIN ELECTROPHORESIS SERUM W/INTERP Lab Routine 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 (HCC) Expected: 08/25/2024 (Approximate), Expires: 06/02/2025[facility] ClinicComment on above:Expected: 08/25/2024 (Approximate), Expires: 06/02/2025Start: 08-25-2024 End: 38-27-1337Jmnsp [Mass/volume] in Serum or PlasmaURIC ACID Lab Routine 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 (HCC) Expected: 08/25/2024 (Emy roximate), Expires: 06/02/2025[facility] ClinicComment on above:Expected: 08/25/2024 (Approximate), Expires: 06/02/2025Start: 08-25-2024 End: 92-37-6413Mrmbijy encounter wlzpgzkin50/04/2025 11:00 AM EDT Office Visit [facility] [address] [place] [address] 12 week labsN[facility]Hol[facility] Comment on above:12 week labsStart: 08-24-2024 End: 53-80-8850Kasatnj encounter procedureNortHolland Hospital LaboratoryComment on above:12 week labsPall med consultStart: 08-19-2024 End: 67-04-1178hwvvrmjiin20/29/2025 4:00 PM EDT Visit (SP) Office Hematology/Oncology [address] [place], [place] [phone] Anibal Ash MD [address] [place] [address] PT SEES JUAN TODAY BEFORE THIS APPTHematology/Oncology Comment on above:PT SEES JUAN TODAY BEFORE THIS APPTStart: 08-19-2024 End: 69-48-3952Pvpbfep encounter procedureNoStevens Clinic Hospital LaboratoryComment on above:12 week labsPT SEES WAN TODAY AFTER RAJANStart: 08-13-2024 End: 64-56-2896Dghbmoz encounter xhabgcixd10/23/2025 2:00 PM EDT Office Visit Otolaryngology [address] [address] Gurpreet Pang MD [address] [place] [address] follow upOtolaryngologyComment on above:follow upStart: 69-93-6799Ycfag-19 Vaccine (8 - Pfizer risk )Covid-19 Vaccine (8 - Pfizer risk )[facility]: 08-05-2024 End: 03-63-1760Teaiion encounter udtnrfalk95/15/2025 2:30 PM EDT Procedure Visit [facility] [address] [facility] [address] [place] [address] Jabier Aldridge DPNicole [address] [facility] [address] [place] [address] Diabetes mellitus due to underlying condition with diabetic polyneuropathy, unspecified whether continuous churn buttermaker insulin use (CMS/HCC) (Primary Dx); Pain due to onychomycosis of toenails of both feet; Acquired deformity of right toe; Acquired deformity of left toeNOMS CI PODIATRYComment on above:Diabetes mellitus due to underlying condition with diabetic polyneuropathy, unspecified whether longterm insulin use (CMS/HCC) (Primary Dx); Pain due to onychomycosis of toenails of both feet; Acquired deformity of right toe; Acquired deformity of left toeStart: 09-73-4529BCFTTEZC SCREENDIABETES SCREEN [facility]art: 07-21-2024 End: 04-46-4635Auzhltofo to same day surgery qdocfq7207/21/2024 10:00 AM EDT - 07/21/2024 11:00 AM EDT Surgery Angio [address] [place], [place] [address]BqMartha Gandara MD, MD [address] [place] [address] BIOPSY OR EXCISION LYMPH NODES(S) NEEDLE SUPERFICIALAngio Comment on above:BIOPSY OR EXCISION LYMPH NODES(S) NEEDLE SUPERFICIALStart: 07-21-2024 End: 69-79-9260Lv/exc lymph node needle superficialBIOPSY OR EXCISION LYMPH NODES(S) NEEDLE SUPERFICIAL Parotid mass 07/21/2024 10:00 AM EDTMC ANGIO HB6 Start: 24-46-4208Idkebbrhzy hospital visit by yhsrtabgz00/30/2025 10:00 AM EDT Hospital Encounter Angio [address] [place] [address] Martha Gandara MD, [address] [place], [place] [id number] Parotid mass [K11.8]AngioComment on above:Parotid mass [K11.8]Start: 07-12-2024 End: 85-17-0170OCC panel - Blood by Automated countCOMPLETE BLOOD COUNT Lab Routine Parotid neoplasm Expected: 07/12/2024, Expires: 10/11/2024[facility] Work Phone: Comment on above:Expected: 07/12/2024, Expires: 10/11/2024Start: 07-12-2024 End: 42-81-4268OS panel - Platelet poor plasma by Coagulation assayPROTHROMBIN TIME Lab Routine Parotid neoplasm Expected: 07/12/2024, Expires: 10/11/2024 [facility]Comment [facility]:Expected: 07/12/2024, Expires: 10/11/2024Start: 07-08-2024 End: 71-39-0847Tkfwqsz encounter gynvsoawq41/17/2025 2:15 PM EDT Office Visit Otolaryngology [address] [address] Gurpreet Pang MD [address] [place] [address] Parotid MassOtolaryngologyComment on above:Parotid MassStart: 05-28-2024 End: 34-44-5307Lxhurkw encounter mxjtehlpk46/07/2025 2:15 PM EST Appointment Radiology Pet CT [address] [place] [address] Ct Neck with contrastRadiology Pet CTComment on above:Ct Neck with contrastStart: 05-20-2024 End: 07-20-1476Qudqrau encounter procedureNOMS CI PODIATRYComment on above: Diabetes mellitus due to underlying condition with diabetic polyneuropathy, unspecified whether longterm insulin use ([facility]/HCC) (Primary Dx); Pain due to onychomycosis of toenails of both feet; Acquired deformity of right toe; Acquired deformity of left toeStart: 05-17-2024 End: 85-23-6779Vaxldc-up vhxcyyyxk89/24/2025 2:40 PM EST Visit (SP) Office Hematology/Oncology [address] [place] [address] [address] [place], [place] [phone] Anibal Ash MD [address] [place] [place] [address] 3 month follow upHematology/OncologyComment on above:3 month follow upStart: 05-12-2024 End: 73-49-2292Rudb-2-Microglobulin [Mass/volume] in Serum or PlasmaB2 MICROGLOBULIN Lab Routine 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 (HCC) Expected: 05/12/2024 (Approximate), Expires: 08/11/2024[facility] Work Phone: Comment on above:Expected: 05/12/2024 (Approximate), Expires: 08/11/2024Start: 05-12-2024 End: 88-20-4154Fapputs.ionized [Moles/volume] in BloodCALCIUM, IONIZED Lab Routine 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 (HCC) Expected: 05/12/19 25 (Approximate), Expires: 08/11/2024[facility] ClinicComment on above:Expected: 05/12/2024 (Approximate), Expires: 08/11/2024Start: 05-12-2024 End: 26-34-3514CMM W Auto Differential panel - BloodCOMPLETE BLOOD COUNT AND DIFFERENTIAL Lab Routine 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 (HCC) Expected: 05/12/2024 (Approximate), Expires: 08/11/2024[facility] ClinicComment on above:Expected: 05/12/2024 (Approximate), Expires: 08/11/2024Start: 05-12-2024 End: 75-23-5804Ajwysxsunyrej metabolic 2000 panel - Serum or PlasmaCOMPREHENSIVE METABOLIC PANEL Lab Routine 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 (HCC) Expected: 05/12/2024 (Approximate), Expires: 08/11/2024[facility] Comment on above:Expected: 05/12/2024 (Approximate), Expires: 08/11/2024Start: 05-12-2024 End: 78-13-2518Wfudwjw dehydrogenase [Enzymatic activity/volume] in Serum or PlasmaLACTATE DEHYDROGENASE Lab Routine 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 (HCC) Expected: 05/12/2024 (Approximate), Expires: 08/11/2024[facility] ClinicComment on above:Expected: 05/12/2024 (Approximate), Expires: 08/11/2024 Start: 05-12-2024 End: 62-34-9300XNSIESYBNT PROTEIN, SERUM (BLOOD)MONOCLONAL PROTEIN, SERUM (BLOOD) Lab Routine 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 (HCC) E xpected: 05/12/2024 (Approximate), Expires: 08/11/2024[facility] ClinicComment on above:Expected: 05/12/2024 (Approximate), Expires: 08/11/2024Start: 05-12-2024 End: 13-81-0435Yslvhlfjn [Mass/volume] in Serum or PlasmaPHOSPHORUS INORGANIC Lab Routine 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 (HCC) Expected: 04/24 (Approximate), Expires: 08/11/2024[facility] ClinicComment on above: Expected: 05/12/2024 (Approximate), Expires: 08/11/2024Start: 05-12-2024 End: 19-91-4511RSIIBOI ELECTROPHORESIS SERUM W/INTERPPROTEIN ELECTROPHORESIS SERUM W/INTERP Lab Routine 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 (HCC) Expected: 05/12/2024 (Approximate), Expires: 08/11/2024[facility] ClinicComment on above:Expected: 05/12/2024 (Approximate), Expires: 08/11/2024Start: 05-12-2024 End: 41-06-5031Bpumn [Mass/volume] in Serum or PlasmaURIC ACID Lab Routine 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 (HCC) Expected: 05/12/2024 (Emy roximate), Expires: 08/11/2024[facility] ClinicComment on above:Expected: 05/12/2024 (Approximate), Expires: 08/11/2024Start: 05-10-2024 End: 17-29-2297Hzusjvg encounter jiefmgrhq83/17/2025 2:30 PM EST Office Visit [facility] [address] [place] [address] 3 month labNortHolland Hospital [facility] Comment on above:3 month labStart: 20-61-6010Yejsvjb Directive DiscussionAdvance Directive DiscussionFulton County Health Centertart: 01-01-2025Medicare Advantage Annual Wellness VisitMediBe[facility] Annual Wellness VisitFulton County Health Centertart: 03-11-2024 End: 67-28-8873Hmzicxe encounter yajrccard28/19/2024 3:00 PM EST Procedure Visit [facility] [address] [facility] [address] [place] [phone] Jabier Aldridge DPM [address] 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, unspecified whether longterm insulin use (CMS/HCC) (Primary Dx); Pain due to onychomycosis of toenails of both feet; Acquired deformity of right toe; Acquired deformity of left toeNOMS CI PODIATRYComment on above:Diabetes mellitus due to underlying condition with diabetic polyneuropathy, unspecified whether longterm insulin use (CMS/HCC) (Primary Dx); Pain due to onychomycosis of toenails of both feet; Acquired deformity of right toe; Acquired deformity of left toeStart: 02-10-2024 End: 54-01-1269Iqnb-2-Microglobulin [Mass/volume] in Serum or PlasmaB2 MICROGLOBULIN Lab Routine 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 (HCC) Stage 3a chronic kidney disease (HCC) Thrombocytopenia (HCC) Expected: 02/10/2024, Expires: 11/09/2024[facility] Work Phone: Comment on above:Expected: 02/10/2024, Expires: 11/09/2024Start: 02-10-2024 End: 90-53-3750Mscxdxv.ionized [Moles/volume] in BloodCALCIUM, IONIZED Lab Routine 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 (HCC) Stage 3a chronic k idney disease (HCC) Thrombocytopenia (HCC) Expected: 02/10/2024, Expires: 11/09/2024[facility] ClinicComment on above:Expected: 02/10/2024, Expires: 11/09/2024Start: 02-10-2024 End: 74-17-6518OLE W Auto Differential panel - BloodCOMPLETE BLOOD COUNT AND DIFFERENTIAL Lab Routine 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 (HCC) Stage 3a chronic kidney disease (HCC) Thrombocytopenia (HCC) Expected: 02/10/2024, Expires: 11/09/2024[facility] ClinicComment on above:Expected: 02/10/2024, Expires: 11/09/2024Start: 02-10-2024 End: 18-70-8012Guwwubuiwlnzx metabolic 2000 panel - Serum or PlasmaCOMPREHENSIVE METABOLIC PANEL Lab Routine 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 (HCC) Stage 3a chronic kidney disease (HCC) Thrombocytopenia (HCC) Expected: 02/10/2024, Expires: 11/09/2024[facility] ClinicComment on above:Expected: 02/10/2024, Expires: 11/09/2024Start: 02-10-2024 End: 45-47-1883HPCPC/COTA,FREE,SERKAPPA/COTA,FREE,SER Lab Routine 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 (HCC) Stage 3a chronic kidney disease (HCC) Thrombocytopenia (HCC) Expected: 02/10/2024, Expires: 05/11/2024[facility] ClinicComment on above:Expected: 02/10/2024, Expires: 05/11/2024Start: 02-10-2024 End: 56-66-1351Qncamdo dehydrogenase [Enzymatic activity/volume] in Serum or PlasmaLACTATE DEHYDROGENASE Lab Routine 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 (HCC) Stage 3a chronic kidney disease (HCC) Thrombocytopenia (HCC) Expected: 02/10/2024, Expires: 11/09/2024[facility] ClinicComment on above: Expected: 02/10/2024, Expires: 11/09/2024Start: 02-10-2024 End: 13-44-8617UORYFHRBZJ PROTEIN, SERUM (BLOOD)MONOCLONAL PROTEIN, SERUM (BLOOD) Lab Routine 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 (HCC) Stage 3a chronic kidney disease (HCC) Thrombocytopenia (HCC) Expected: 02/10/2024, Expires: 11/09/2024[facility] ClinicComment on above:Expected: 02/10/2024, Expires: 11/09/2024Start: 02-10-2024 End: 88-59-0498Hncqrbjzn [Mass/volume] in Serum or PlasmaPHOSPHORUS INORGANIC Lab Routine 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 (HCC) Stage 3a chron ic kidney disease (HCC) Thrombocytopenia (HCC) Expected: 02/10/2024, Expires: 11/09/2024[facility] ClinicComment on above:Expected: 02/10/2024, Expires: 11/09/2024Start: 02-10-2024 End: 20-90-5354TOICSAV ELECTROPHORESIS SERUM W/INTERPPROTEIN ELECTROPHORESIS SERUM W/INTERP Lab Routine 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 (HCC) Stage 3a chronic kidney disease (HCC) Thrombocytopenia (HCC) Expected: 02/10/2024, Expires: 11/09/2024[facility] ClinicComment on above:Expected: 02/10/2024, Expires: 11/09/2024Start: 02-10-2024 End: 97-47-4471Zteud [Mass/volume] in Serum or PlasmaURIC ACID Lab Routine 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 (HCC) Stage 3a chronic kidney d isease (HCC) Thrombocytopenia (HCC) Expected: 02/10/2024, Expires: 11/09/2024 [facility]:Expected: 02/10/2024, Expires: 11/09/2024Start: 02-09-2024 End: 48-17-7191Qjdgmz-up yiepanlvi08/18/2024 1:45 PM EST Visit (SP) Office Hematology/Oncology [address] [place] [address] [address] [place], [place] [phone] Anibal Ash MD [address] [place] [address] 3 month follow up / lab 1 week priorHematology/Oncology Comment on above:3 month follow up / lab 1 week priorStart: 02-02-2024 End: 54-81-8158Pmlrvlz encounter ixjguhdqn12/11/2024 1:45 PM EST Office Visit [facility] [address] [place] [address] 3 [facility] Comment on above:3 month labStart: 01-01-2024 End: 39-54-3980Huuggqs encounter qbogqmqmb55/10/2024 3:30 PM EDT Procedure Visit [facility] [address] [facility] [address] [place] [phone] Jabier Aldridge DPM [address] [facility] [address] [place] [address] Diabetes mellitus due to underlying condition with diabetic polyneuropathy, unspecified whether longterm insulin use (CMS/HCC) (Primary Dx); Pain due to onychomycosis of toenails of both feet; Acquired deformity of right toe; Acquired deformity of left toeNOMS CI PODIATRYComment on above:Diabetes mellitus due to underlying condition with diabetic polyneuropathy, unspecified whether longterm insulin use (CMS/HCC) (Primary Dx); Pain due to onychomycosis of toenails of both feet; Acquired deformity of right toe; Acquired deformity of left toeStart: 21-76-1463Aqido-19 Vaccine ()Covid-19 Vaccine ( season)[facility]: 11-23-2023 Covid-19 Vaccine ()Covid-19 Vaccine () [facility]: 09-35-5215Rfkelrhbi vaccinationInfluenza Vaccine (#1) [facility]: 11-10-2023 End: 20-40-4150Vbtngb-up swflkytlm00/19/2024 1:30 PM EDT Visit (SP) Office Hematology/Oncology [address] [place], [place] [phone] Anibal Ash MD [address] [facility] [place] [address] 3 month follow upHematology/OncologyComment on above:3 month follow upStart: 11-03-2023 End: 89-86-4791Myycvye encounter /12/2024 1:30 PM EDT Office Visit [facility] [address] [place] [address] 3 [facility] Comment on above:3 month labStart: 08-29-2023 End: 16-68-6967Rvqxund encounter /07/2024 1:00 PM EDT Appointment Radiology Pet CT [address] [address] [place] [address] Pet scan / Nurse triage to call resultsRadiology Pet CTComment on above:Pet scan / Nurse triage to call resultsStart: 44-15-6895Eykuoue [facility] Work Phone: Start: 08-11-2023 End: 88-01-7218Ibzr-2-Microglobulin [Mass/volume] in Serum or PlasmaB2 MICROGLOBULIN Lab Routine 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 (HCC) Expected: 08/11/2023, Expires: 08/10/2024[facility] ClinicComment on above: Expected: 08/11/2023, Expires: 08/10/2024Start: 08-11-2023 End: 55-83-3721Nsctbza.ionized [Moles/volume] in BloodCALCIUM, IONIZED Lab Routine 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 (HCC) Expected: 08/11/19 24, Expires: 08/10/2024[facility] ClinicComment on above:Expected: 08/11/2023, Expires: 08/10/2024Start: 08-11-2023 End: 85-84-6013RLP W Auto Differential panel - BloodCOMPLETE BLOOD COUNT AND DIFFERENTIAL Lab Routine 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 (HCC) Expected: 08/11/2023, Expires: 08/10/2024[facility] ClinicComment on above: Expected: 08/11/2023, Expires: 08/10/2024Start: 08-11-2023 End: 90-07-5607Zypnimbytkfff metabolic 2000 panel - Serum or PlasmaCOMPREHENSIVE METABOLIC PANEL Lab Routine 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 (HCC) Expected: 08/11/2023, Expires: 08/10/2024[facility] ClinicComment on above: Expected: 08/11/2023, Expires: 08/10/2024Start: 08-11-2023 End: 65-62-7392TVFZS/COTA,FREE,SERKAPPA/COTA,FREE,SER Lab Routine 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 (HCC) Expected: 08/11/2023, Expires: 11/10/2023[facility] ClinicComment on above:Expected: 08/11/2023, Expires: 11/10/2023Start: 08-11-2023 End: 93-90-5910Ujdqwom dehydrogenase [Enzymatic activity/volume] in Serum or PlasmaLACTATE DEHYDROGENASE Lab Routine 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 (HCC) Expected: 08/11/2023, Expires: 08/10/2024[facility] ClinicComment on above:Expected: 08/11/2023, Expires: 08/10/2024Start: 08-11-2023 End: 95-65-8768QPRZBQNOAJ PROTEIN, SERUM (BLOOD)MONOCLONAL PROTEIN, SERUM (BLOOD) Lab Routine 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 (HCC) E xpected: 08/11/2023, Expires: 08/10/2024[facility] ClinicComment on above: Expected: 08/11/2023, Expires: 08/10/2024Start: 08-11-2023 End: 51-88-3099Boawbeguq [Mass/volume] in Serum or PlasmaPHOSPHORUS INORGANIC Lab Routine 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 (HCC) Expected: 07/23, Expires: 08/10/2024[facility] ClinicComment on above:Expected: 08/11/2023, Expires: 08/10/2024Start: 08-11-2023 End: 59-48-4211ILVDUNM ELECTROPHORESIS SERUM W/INTERPPROTEIN ELECTROPHORESIS SERUM W/INTERP Lab Routine 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 (HCC) Expected: 08/11/2023, Expires: 08/10/2024[facility] ClinicComment on above: Expected: 08/11/2023, Expires: 08/10/2024Start: 08-11-2023 End: 51-60-9977Ydyzt [Mass/volume] in Serum or PlasmaURIC ACID Lab Routine 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 (HCC) Expected: 08/11/2023, Exp ires: 08/10/2024[facility] ClinicComment on above:Expected: 08/11/2023, Expires: 08/10/2024Start: 25-68-4986Nqanrjrnpp A1c mutayuamsbbCrF3RDlriqqqrm ClinicStart: 98-56-1747Pnocqmv Directive DiscussionAdvance Directive DiscussionFulton County Health Centertart: 25-98-2571SIRFE-19 Vaccine ()COVID-19 Vaccine ()[facility] HospitalStart: 85-56-4302Faucn-19 Vaccine ()Covid-19 Vaccine ()[facility]: 08-11-2022 End: 48-77-1329Yiud-2-Microglobulin [Mass/volume] in Serum or PlasmaB2 MICROGLOBULIN B Lab Routine 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) [C90.01 (ICD-10-CM)] Expected: 08/11/2022 (Approximate), Expires: 02/11/2023[facility] Work Phone: Comment on above:Expected: 08/11/2022 (Approximate), Expires: 02/11/2023Start: 08-11-2022 End: 53-40-1934Pnslpni.ionized [Moles/volume] in BloodCALCIUM IONIZED BLOOD Lab Routine 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) [C90.01 (ICD-10-CM)] Expected: 08/11/2022 (Approximate), Expires: 02/11/2023[facility] Work Phone: Comment on above:Expected: 08/11/2022 (Approximate), Expires: 02/11/2023Start: 08-11-2022 End: 22-37-1892FAH W Auto Differential panel - BloodCBC + DIFF Lab Routine 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) [C90.01 (ICD-10-CM)] Expected: 08/11/2022 (Approximate), Expires: 02/11/2023[facility] Work Phone: Comment on above:Expected: 08/11/2022 (Approximate), Expires: 02/11/2023Start: 08-11-2022 End: 74-42-6504Veeyuvwsntart metabolic 2000 panel - Serum or PlasmaCOMP METABOLIC PANEL Lab Routine 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) [C90.01 (ICD-10-CM)] Expected:08/11/2022 (Approximate), Expires: 02/11/2023[facility] Work Phone: Comment on above:Expected: 08/11/2022 (Approximate), Expires: 02/11/2023Start: 08-11-2022 End: 59-32-3831TAWVZ/COTA,FREE,SERKAPPA/COTA,FREE,SER Lab Routine 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) [C90.01 (ICD-10-CM)] Expected: 08/11/2022 (Approximate), Expires: 10/11/2022[facility] Work Phone: Comment on above:Expected: 08/11/2022 (Approximate), Expires: 10/11/2022Start: 08-11-2022 End: 72-93-2713Yckmjhg dehydrogenase [Enzymatic activity/volume] in Serum or PlasmaLD LACTATE DEHYDRO Lab Routine 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) [C90.01 (ICD-10-CM)] Expected: 08/11/2022 (Approximate), Expires: 02/11/2023[facility] Work Phone: Comment on above:Expected: 08/11/2022 (Approximate), Expires: 02/11/2023Start: 08-11-2022 End: 20-10-8504NXUIVLDYQT PROTEIN, SERUM (BLOOD)MONOCLONAL PROTEIN, SERUM (BLOOD) Lab Routine 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) [C90.01 (ICD-10-CM)] Expected: 08/11/2022 (Approximate), Expires: 02/11/2023[facility] Work Phone: Comment on above:Expected: 08/11/2022 (Approximate), Expires: 02/11/2023Start: 08-11-2022 End: 76-36-2623Tpzmotsci [Mass/volume] in Serum or PlasmaPHOSPHORUS INORGANIC Lab Routine 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) [C90.01 (ICD-10-CM)] Expected: 08/11/2022 (Approximate), Expires: 02/11/2023[facility] Work Phone: Comment on above:Expected: 08/11/2022 (Approximate), Expires: 02/11/2023Start: 08-11-2022 End: 55-40-5825PMRFTVP ELECTROPHORESIS SERUM W/INTERPPROTEIN ELECTROPHORESIS SERUM W/INTERP Lab Routine 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) [C90.01 (ICD-10- CM)] Expected: 08/11/2022 (Approximate), Expires: 02/11/2023[facility] Work Phone: Comment on above:Expected: 08/11/2022 (Approximate), Expires: 02/11/2023Start: 08-11-2022 End: 81-90-5466Awwdb [Mass/volume] in Serum or PlasmaURIC ACID BLOOD Lab Routine 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) [C90.01 (ICD-10-CM)] Expected: 08/11/2022 (Approximate), Expires: 02/11/2023[facility] Work Phone: Comment on above:Expected: 08/11/2022 (Approximate), Expires: 02/11/2023Start: 02-14-4933RJUHMRG DIRECTIVE DISCUSSIONADVANCE DIRECTIVE DISCUSSIONClesuburban community hospital & [facility] ClinicStart: 10-38-7740DJQOEMCQUU ASSESSMENT DEPRESSION ASSESSMENTFulton County Health Centertart: 47-61-7849CUR Vaccine (1 - 1-dose 75+ series)RSV Vaccine (1 - 1-dose 75+ series)[facility]: 01-24-2016 PNEUMOCOCCAL: 65+ (2 - PCV)PNEUMOCOCCAL: 65+ (2 - PCV)[facility]: 95-08-8982UUzS/Tdap/Td Vaccines (1 - Tdap)DTaP/Tdap/Td Vaccines (1 - Tdap) [facility]: 91-91-0171Xhyxv microalbumin profile DTaP,Tdap,Td Vaccine (1 - Tdap)[facility]: 42-77-2449ZPG Vaccine (1 - 1-dose 60+ series)RSV Vaccine (1 - 1-dose 60+ series)[facility]: 08-75-7893Jgrjnzjd Vaccine (1 of 2)Shingrix Vaccine (1 of 2)[facility] Start: 85-77-3794POVICEMU VACCINE (1 of 2)SHINGRIX VACCINE (1 of 2)[facility]: 25-43-6406Tewjk microalbumin profileDTAP,TDAP,TD (1 - Tdap) [facility]: 68-66-4174Tkkupc Vaccines (1 of 2)Zoster Vaccines (1 of 2)[facility]: 62-32-0414Ibmzowa ScreeningAnxiety ScreeningFulton County Health Centertart: 35-42-4467Pqdvxsyts B surface antibody levelLDL CholesterolFulton County Health Centertart: 20-09-3787Ymnzlsgq foot examinationDiabetic Foot ExamFulton County Health Centertart: 43-57-1777Dcblqkxp screeningDilated Retinal Exam [facility]ronrt: 78-62-9468Ijlaieylw B screeningUrine Albumin:Creatinine RatioFulton County Health Centertart: 49-80-0504Veyxs panelLipid PanelUnOhioHealth O'Bleness Hospital: 1941Medicare Annual Wellness VisitMedicare Annual Wellness Visit (AWV)[facility] HospitalComprehensive metabolic 2000 panel - Serum or PlasmaWilson HealthCT Guidance for radiation treatment of Unspecified body regionCT SIM PLANNING RADIATION ONCOLOGY Radiology Routine Head and neck cancer (HCC) [facility] Work Phone: Comment on above:Ordered: 08/19/2024 End: 95-22-1970DO Neck W contrast IVCT NECK SOFT TISSUE W IVCON Radiology Routine Mass of ear auricle, left Multiple myeloma not havingachieved remission (HCC) Thrombocytopenia (HCC) Chronic anticoagulation 1 Occurrences starting 05/17/2024 until 06/16/2025[facility] Work Phone: Comment on above:1 Occurrences starting 05/17/2024 until 06/16/2025 End: 21-34-7989GNT COMPLETEECG COMPLETE ECG Routine 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/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 until 08/31/2025[facility]Comment [facility] Occurrences starting 08/31/2024 until 08/31/2025Exc prtd kelsey/prtd glnd lat dsj&prsrv facial nrPAROTIDECTOMY Mucoepidermoid carcinoma (HCC) MAIN PAVILIONGuidance for biopsy of Neck or Chest Soft tissueIMAGING GUIDED BIOPSY SALIVARY GLAND Radiology Routine Parotid mass Ordered: 07/08/2024[facility] Work Phone: Comment on above:Ordered: 07/08/2024Microalbumin [Mass/volume] in UrineWilson HealthPatient EducationManaging pain after surgerySumma Health Work Phone: [facility] referralKettering Memorial [facility] Work Phone: End: 90-62-9825QQX+CT Whole body Bone W 18F-NaF IVNM PET/CT WHOLE BODY SUBSEQUENT Radiology Routine 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 (HC C) 1 Occurrences starting 08/11/[address] [place] [address] Work Phone: Comment on above:1 Occurrences starting 08/11/2023 until 09/09/2024XR Chest 2 ViewsWilson Health End: 68-34-4134HF Chest PA and LateralXR CHEST 2V FRONTAL/LAT Radiology Routine 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/31/2024 until 09/30/2025[facility] Work Phone: Comment on above:1 Occurrences starting 08/31/2024 until 09/30/2025XR Lumbar spine 2 or 3 [facility] Thor[facility] 3 [facility] Immunizations Immunization DateImmunizationNotesCare KwxrubtfDlsrvwzy35-39-8712poadifjui, high dose seasonal, preservative-freeBenjamin Ball DO Work Phone: [facility]11-19-2024COVID-19 vaccine, age 12+ yr (PFIZER-BIONTECH COMIRNATY)Anibal Ash MD Work Phone: [facility] CenterNxcyzq82-73-4277yqfyyrfec, high dose seasonal, preservative-freeBenjamin Ball Other [employer] Other 418263-49-8591bgufygplq virus vaccine, unspecified formulationWilson Health10-12-2022influenza (aIIV4) vaccine, age 65+ yr, quadrivalent, PF (FLUAD QUAD)Anibal Ash MD Work Phone: [facility] CenterYnbatd21-58-1833bdkimclir virus vaccine, split virus (incl. purified surface antigen)Danilo Clark Other [employer] Other 948952-49-2605tcoqrwqyb virus vaccine, unspecified formulationWilson Health07-11-2022COVID-19 original vaccine, age 12+ yr, monovalent (PFIZER-BIONTECH - HANNA TOP)Anibal Ash MD Work Phone: [facility] CenterFavkay19-95-7955HABFQ-70 original vaccine, age 12+ yr, monovalent (PFIZER-BIONTECH - PURPLE TOP)Anibal Ash MD Work Phone: [facility] CenterBfcicq20-78-4001cznmovmzs virus vaccine, split virus (incl. purified surface antigen)Danilo Clark Other [employer] Other 09448266-06-9412bgzicsihi virus vaccine, unspecified formulationWilson [facility]09-29-2021Seasonal trivalent influenza vaccine, adjuvanted, preservative freeAnibal Ash MD Work Phone: [facility] CenterPwtuzh79-49-8815BNMFL-55 original vaccine, age 12+ yr, monovalent (PFIZER-BIONTECH - PURPLE TOP)Anibal Ash MD Work Phone: [facility] CenterXlnsyb11-56-4153CVNRE-82 Vaccine Pfizer - Documentation Purposes Carleen Clark Other [facility]01-28-2021COVID-19 original vaccine, age 12+ yr, monovalent (PFIZER-BIONTECH - PURPLE TOP)Anibal Ash MD Work Phone: [facility] CenterPlsxcn43-28-9305ruclqwkcm virus vaccine, split virus (incl. purified surface antigen)Danilo Clark Other [employer] Other [id number] virus vaccine, unspecified formulationWilson Health10-30-2019influenza virus vaccine, split virus (incl. purified surface antigen)Danilo Clark Other [employer] Other 10958397-68-2456zqzjyhhjf virus vaccine, unspecified formulationWilson Health10-23-2018influenza virus vaccine, split virus (incl. purified surface antigen)Danilo Clark Other [employer] Other 368135-30-7645pbsxgnvro virus vaccine, unspecified formulationWilson Health10-23-2018Seasonal trivalent influenza vaccine, adjuvanted, preservative freeAnibal Ash MD Work Phone: [facility] CenterUspehh55-56-4690znvgsfdbm virus vaccine, split virus (incl. purified surface antigen)Danilo Clark Other [employer] Other 178390-36-6063clyjzbted virus vaccine, unspecified formulation[facility]10-17-2017influenza, high dose seasonal, preservative-freeAnibal Ash MD Work Phone: [facility] CenterXwygfs02-09-3438tibmrgwvx, injectable, quadrivalent, preservative freeAnibal Ash MD Work Phone: [facility] CenterHwiovl18-52-2828oqfwyeqwz virus vaccine, split virus (incl. purified surface antigen)Danilo Clark Other [employer] Other 247930-96-2782yqcggsxre virus vaccine, unspecified formulationWilson [facility]12-17-2015pneumococcal conjugate vaccine, 13 valentBenbrandynmin Amber Other [facility]11-02-2015 pneumococcal polysaccharide vaccine, 23 valentAnibal Ash MD Work Phone: [facility] CenterRfqywn92-57-7087iqidwfpimabn Conjugate, unspecified formulation; Translations: [Need for prophylactic vaccination ag ainst Streptococcus pneumoniae (pneumococcus)]Danilo Clark Other [employer] Other 556860-41-7231vsqqlavrxbdp polysaccharide vaccine, 23 valentBenemeterio Clark Other [facility]12-26-2013influenza, seasonal, injectableJaimee Praful 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.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 Work Phone: [facility] CenterDiwlgw27-19-6464arilsqz and diphtheria toxoids, adsorbed, preservative free, for adult use (5 Lf of tetanus toxoid and 2 Lf of diphtheria toxoid)Danilo Clark Other [facility]10-03-2012tetanus and diphtheria toxoids, adsorbed, preservative free, for adult use (5 Lf of tetanus toxoid and 2 Lf of diphtheria toxoid)Danilo Clark Other [facility]08-03-2005 pneumococcal polysaccharide vaccine, 23 valentBelinda Clark Other [facility] Payers DatePayer CategoryPayerPolicy [id number] 2021Medicare [id number] 2020Medicare (Managed Care) [id number] 1.2.840.589667.1.13.159.2.7.3.006122.81187-86-6737Umcpzbo Health Insurance [id number] [id number] [id number] [id number] 2.16.840.1.734732.3.57[id number] 2.16.840.1.911262.3.57[id number] 2.16.840.1.401431.3.57[id number] 2.16.840.1.404424.3.57[id number] 2.16.840.1.131092.3.57[id number] 2.16.840.1.955464.3.57[id number] 2.16.840.1.972227.3.57[id number] 2.16840.1.279652.3.57[id number] 2.16840.1.336235.3.57[id number] 2.16840.1.240235.3.57[id number] 2.16840.1.129245.3.57[id number] 2.840.1.191105.3.57[id number] 2.840.1.289747.3.57[id number] 2.840.1.087140.3.57[id number] 2.840.1.046346.3.57[id number] 2..1.824703.3.57[id number] 2.840.1.906740.3.57[id number] 2.16840.1.762475.3.57[id number] 2.16840.1.499043.3.57[id number] 2.16840.1.090422.3.57[id number] 2.840.1.001932.3.57[id number] 2.16.840.1.566[id number] pz0io5w6-957t-09a9-7j10-[id number] Health [facility] qs77o6h5-70z4-8wk6-b40v-[id number] 2.16.840.1.614830.3.579.2.531 Social History DateTypeDetailFacilityStart: 12-17-2016 End: 33-94-5067Tpofeez smoking status NHISEx-smokerSouth[facility] Medical Center End: 21-30-2078Ydhxgox of tobacco useCurrent smokerSouthview Medical Center End: 47-85-4124Xfesmjv of tobacco useCigar SmokerFulton County Health Centertart: 12-17-2016 End: 44-68-1409Ikvjvkf use and exposureSmokeless tobacco non-userFulton County Health Centertart: 08-03-2021 End: 58-08-2876Wyagdyu intakeCurrent drinker of alcohol (finding)[facility]ertart: 11-05-2016 End: 19-27-9934Riqhaps CommentQuit 40 years agoFulton County Health Centertart: 11-05-2016 Alcohol Comment2 beers per year.[facility] Centertart: 46-17-2570Eyr Assigned At BirthNot on fileFulton County Health Centertart: 02-10-2023 End: 45-94-5539Slb [facility]: 05-13-2023 End: 04-57-7659Eyaswlq smoking status NHISNever smoked tobaccoLancaster Municipal Hospital Work Phone: Start: 05-03-2023 End: 34-81-0203Bhfawkou to SARS-CoV-2 (event)Not sureLancaster Municipal HospitalStart: 66-67-9427Zqy Assigned At [facility]ert[facility]: 02-10-2023 End: 55-37-7022Disfwsq of Social functionFulton County Health Centertart: 42-07-8331Gcjdd Depression Screening Gqmtusrxwa5Adjkxtgkd ClinicHistory of tobacco useCigarette SmokerNONJ HealthcareHistory of tobacco usePassive smokerNOMS HealthcareStart: 01-01-2024 End: 18-24-4213Lgnpiuuxt beverage intakeEx-drinker (finding)[facility] Start: 04-16-2024 End: 73-53-0391RmnCypu (finding)[facility] Medical Equipment Procedure CodeEquipment CodeEquipment Original TextEquipment IdentifierDatesOpen reduction and internal fixation of fracture of humerusK-WIRE 2.5MM W/ TROCAR POINTFDAStart: 75-90-4093Wyei reduction and internal fixation of fracture of humerusNAIL HUMERAL 9MM X 280MM TIFDAStart: 24-97-8123Glio reduction and internal fixation of fracture of humerusSCREW 4.0MM TI LOCKING W/ L22XFRPduwk: 87-50-0756Shtn reduction and internal fixation of fracture of humerusK-WIRE 2.5MM W/ TROCAR POINTFDAStart: 91-28-9324Egkh reduction and internal fixation of fracture of humerusNAIL HUMERAL 9MM X 280MM TIFDAStart: 07-58-9468Xtwg reduction and internal fixation of fracture of humerusSCREW 4.0MM TI LOCKING W/ T25FDA Start: 18-62-3844Vtvo reduction and internal fixation of fracture of humerusK- WIRE 2.5MM W/ TROCAR POINTFDAStart: 95-91-2757Nosi reduction and internal fixation of fracture of humerusNAIL HUMERAL 9MM X 280MM TIFDAStart: 12-13-2016 Open reduction and internal fixation of fracture of humerusSCREW 4.0MM TI LOCKING W/ C07YADOmrlf: 69-45-0541Dqaj reduction and internal fixation of fracture of humerusK-WIRE 2.5MM W/ TROCAR POINTFDAStart: 30-73-9928Etcb reduction and internal fixation of fracture of humerusNAIL HUMERAL 9MM X 280MM TIFDAStart: 96-66-2279Tshu reduction and internal fixation of fracture of humerusSCREW 4.0MM TI LOCKING W/ Q48XTCCleic: 58-45-4129Ephn reduction and internal fixation of fracture of humerusK-WIRE 2.5MM W/ TROCAR POINTFDAStart: 07-92-5484Usjw reduction and internal fixation of fracture of humerusNAIL HUMERAL 9MM X 280MM TIFDAStart: 59-31-9989Adxy reduction and internal fixation of fracture of humerusSCREW 4.0MM TI LOCKING W/ U54LPXAcwre: 28-96-4358Irnp reduction and internal fixation of fracture of humerusK-WIRE 2.5MM W/ TROCAR POINTFDAStart: 23-47-9538Yxla reduction and internal fixation of fracture of humerusNAIL HUMERAL 9MM X 280MM TIFDAStart: 47-98-3585Relw reduction and internal fixation of fracture of humerusSCREW 4.0MM TI LOCKING W/ L14NMOTckkc: 85-81-7892Hfop reduction and internal fixation of fracture of humerusK-WIRE 2.5MM W/ TROCAR POINTFDAStart: 54-70-6443Sqxd reduction and internal fixation of fracture of humerusNAIL HUMERAL 9MM X 280MM TIFDAStart: 26-08-4814Tdhe reduction and internal fixation of fracture of humerusSCREW 4.0MM TI LOCKING W/ T25FDA Start: 99-67-3325Hpxc reduction and internal fixation of fracture of humerusK- WIRE 2.5MM W/ TROCAR POINTFDAStart: 31-71-5814Emfz reduction and internal fixation of fracture of humerusNAIL HUMERAL 9MM X 280MM TIFDAStart: 12-13-2016 Open reduction and internal fixation of fracture of humerusSCREW 4.0MM TI LOCKING W/ C00FKJAmari: 75-64-6289Kyre reduction and internal fixation of fracture of humerusK-WIRE 2.5MM W/ TROCAR POINTFDAStart: 95-46-2837Hwbl reduction and internal fixation of fracture of humerusNAIL HUMERAL 9MM X 280MM TIFDAStart: 80-81-9708Bqba reduction and internal fixation of fracture of humerusSCREW 4.0MM TI LOCKING W/ Y69QBXSsrsk: 56-10-7919Tsud reduction and internal fixation of fracture of humerusK-WIRE 2.5MM W/ TROCAR POINTFDAStart: 92-65-9488Tvrv reduction and internal fixation of fracture of humerusNAIL HUMERAL 9MM X 280MM TIFDAStart: 99-14-6882Wekg reduction and internal fixation of fracture of humerusSCREW 4.0MM TI LOCKING W/ [id number]: 12-13-2016 [id number], [id number]: 13-66-9817Sks Needle, Diabetic (Bd Ultra-Fine Short Pen Needle) 31 gauge x 5/16 needleStart: 30-39-6437Ivu Needle, Diabetic (Bd Ultra-Fine Short Pen Needle) 31 gauge x 5/16 needleStart: 09-30-2023 End: 85-72-0557Gdt Needle, Diabetic (Bd Ultra-Fine Short Pen Needle) 31 gauge x 5/16 needleStart: 58-33-4581Bgl Needle, Diabetic (Bd Ultra-Fine Short Pen Needle) 31 gauge x 5/16 needleStart: 09-30-2023 End: 61-40-7975Oxa Needle, Diabetic (Bd Ultra-Fine Short Pen Needle) 31 gauge x 5/16 needleStart: 09-30-2023 End: 71-49-7291Aor Needle, Diabetic (Bd Ultra-Fine Short Pen Needle) 31 gauge x 5/16 needleStart: 80-81-9826Gxn Needle, Diabetic (Bd Ultra-Fine Short Pen Needle) 31 gauge x 5/16 needleStart: 09-30-2023 End: 36-89-9435Uls Needle, Diabetic (Bd Ultra-Fine Short Pen Needle) 31 gauge x 5/16 needleStart: 09-30-2023 End: 02-29-1416Qfe Needle, Diabetic (Bd Ultra-Fine Short Pen Needle) 31 gauge x 5/16 needleStart: 30-34-8281Zaj Needle, Diabetic (Bd Ultra-Fine Short Pen Needle) 31 gauge x 5/16 needleStart: 09-30-2023 End: 50-21-4246Sck Needle, Diabetic (Bd Ultra-Fine Short Pen Needle) 31 gauge x 5/16 needleStart: 09-30-2023 End: 10-78-4421Kvg Needle, Diabetic 31 gauge x 5/16 needleStart: 40-76-5173Hdh Needle, Diabetic (Bd Ultra-Fine Short Pen Needle) 31 gauge x 5/16 needleStart: 09-30-2023 End: 76-29-8148Zvg Needle, Diabetic (Bd Ultra-Fine Short Pen Needle) 31 gauge x 5/16 needleStart: 09-30-2023 End: 72-77-0929Fir Needle, Diabetic (Bd Ultra-Fine Short Pen Needle) 31 gauge x 5/16 needleStart: 12-23-2023 End: 10-95-1398Hlg Needle, Diabetic 31 gauge x 5/16 needleStart: 02-46-9176Lrh Needle, Diabetic (Bd Ultra-Fine Short Pen Needle) 31 gauge x 5/16 needleStart: 09-30-2023 End: 97-04-0787Jzb Needle, Diabetic (Bd Ultra-Fine Short Pen Needle) 31 gauge x 5/16 needleStart: 09-30-2023 End: 55-94-5028Qyu Needle, Diabetic (Bd Ultra-Fine Short Pen Needle) 31 gauge x 5/16 needleStart: 12-23-2023 End: 06-60-3079Mmg Needle, Diabetic 31 gauge x 5/16 needleStart: 35-50-8120Nnm Needle, Diabetic (Bd Ultra-Fine Short Pen Needle) 31 gauge x 5/16 needleStart: 09-30-2023 End: 67-30-9524Nwy Needle, Diabetic (Bd Ultra-Fine Short Pen Needle) 31 gauge x 5/16 needleStart: 09-30-2023 End: 20-70-9757Usq Needle, Diabetic (Bd Ultra-Fine Short Pen Needle) 31 gauge x 5/16 needleStart: 12-23-2023 End: 25-60-5690Nmx Needle, Diabetic 31 gauge x 5/16 needleStart: 09-05-2024 End: 01-05-2025 Functional Status IsywGbsrktbeqlVpycezXnksjehr20-47-1282Zdf you deaf, or do you have serious difficulty hearingNo 09/19/2024 10:32 AM Shawna Varela RN [facility] CenterWqqufh65-38-0106Efp you blind, or do you have serious difficulty seeing, even when wearing glassesNo 09/19/2024 10:32 AM Shawna Varela RN NoCDayton [facility] CenterYnsuod44-71-3108Rl you have serious difficulty walking or climbing stairsNo 09/19/2024 10:32 AM Shawna Varela RN NoCDayton [facility] CenterAkkndk69-92-4216Um you have difficulty dressing or bathingNo 09/19/2024 10:32 AM Shawna Varela RN [place] Upsnsa01-38-5677Umuhtvp of a physical, mental, or emotional condition, do you have difficulty doing errands alone such as visiting a physician's office or shoppingNo 09/19/2024 10:32 AM Shawna Varela RN No [facility] Mental Status EpngJfoenxqdfoCigialTuzgfvvw51-53-4629Hicbtvi of a physical, mental, or emotional condition, do you have serious difficulty concentrating, remembering, or making decisionsNo 09/19/2024 10:32 AM Shawna Varela RN [facility] Clinical Notes 09-20-2020 to 11-24-2024 Note Date & [id number] History of Present illness Narrative* Idalmis Basilio APRN.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 - 11/24/2024 10:30 AM EDT Images from the original note were not included. NAME: Rafat Bella [facility] NO[facility] [id number] DATE OF SERVICE: November 24, 2024 (Praful) Some elements in this clinic note that are critical to medical decision making have been carefully reviewed and included from a prior clinic note dated: August 19, 2024 (Mihir) Referring Provider: Danilo Clark Additional Clinicians involved in Rafat Bella's care: Frankie Manning CC: Multiple myeloma CASE SUMMARY / ASSESSMENT: 84 year old gentleman with multiple myeloma currently being observed offtreatment. Previous pulmonary embolus in 2015. He responded very nicely to treatment and was monitored for 2 years without evidence of disease before stopping subsequent therapy since March 2019. M-spike remains low. Pulmonary embolus in January 2016. Predates his [...] positive in his one large humerus lesion. M-spike had been 0 abut now is starting to rise slowly although no additional lesions noted on PET/CT and k/L ratio is fdstable. Bone prophylaxis Previously receieved zolendronic acid. New diagnosis of left parotid gland tumor, pending resection with Dr. Pang. SUMMARIZED PLAN: Continue Follow up with Dr. Pang RTC in 3 months Labs 1 week prior AI ASSISTED A/P: 1. 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 Chamorro; site well- healed. No chemotherapyor radiation required per Dr. Martinez. No new masses or lesions noted. - Continue routine follow-up with Dr. Chamorro. 3. 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 ([facility]) (C90.00) 4. Multiple myeloma in remission ([facility]) (C90.01) Monoclonal protein levels remain stable with a decrease in M protein from 0.6 to 0.3. No new symptoms or evidence of disease progression. - Repeat labs in 3 months, 1 week prior to next visit. - Follow-up in [address] Pierson to review lab results. - Provided education on multiple myeloma, including potential effects on bones, kidneys, calcium, and hemoglobin. 5. Stage 3a chronic kidney disease ([facility]) (N18.31) Kidney function remains slightly above normal but stable. - Continue to monitor kidney function with routine labs. ___ CASE HISTORY: Reverse Chronological Order 07/21/2024 - A. 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 05/28/2024 - CT Neck Soft Tissue: Slight interval increase in size of left parotid mass since 08/29/2023 worrisome for primary neoplasm. Otherwise stable appearance of the soft tissues of the neck. 05/10/2024 - M-protein concentration: 0.60 02/02/2024 - CBC: 6.18 > 13.8 / 40.7 < 181, eGFR: 56, Creatinine: 1.28 [place]: 109.2, Lambda: 45.1, K/L Ratio: 2.42 IgA: 258, Ig, IgM: 316 M-protein concentration: 0.51 11/03/2023 - M-protein: 0.42 08/29/2023 - PET/CT: No FDG avid neoplastic process. 08/04/2023 - M-protein: 0.41 multiple previous values of 0.00. 02/26/2023 - US Soft Tissue Head/Neck: Heterogeneous, avascular, suspicious appearing mass within left parotid gland region; not appreciably changed compared to 01/03/2023. 02/07/2023 - CT Soft Tissue Neck: Along the posterior inferior aspect of the left parotid gland there is a heterogeneous enhancing rounded lesion with areas of hypoenhancement measuring approximately 2 x 2 by 1.7 cm in AP, TV and CC dimensions. Differential diagnosis include but not limited to primary parotid neoplasm such as pleomo rphic adenoma, Warthin's tumor versus enlarged intraparotid lymph node. 01/17/2023 - Left parotid biopsy: at [facility] Atypia of undetermined significance 2018 - Completed radiotherapy MRI thoracic spine [...] compression fracture requiring kyphoplasty shortly after diagnosis. ____ HPI: Updated Visit, November 24, 2024: Patient with a history of multiple myeloma and a left parotid mass, which was surgically removed byDr. Chamorro. Post-surgery, he followed up with Dr. Martinez and did not require chemotherapy or radiation therapy. He is scheduled for a follow- up with Dr. Chamorro. Recent lab results show stable hemoglobin levels over the past few months. CMP reveals slightly elevated kidney function and glucose levels, with normal calcium and electrolyte levels. Phosphorus levels have normalized since the last test. M protein levels have decreased from 0.61 to 0.43, and monoclonal protein levels remain stable. Patient reports no bone pain, lumps, or bumps. He is urinating and eating well but notes a decreasein activity levels. Updated Visit, August 19, 2024: Rafat returns with Karly. 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 Gurpreet Pang and radiation with Dr. Martinez. Today's myeloma panel is in process, anticipate continuing q 3 month follow ups. Updated Visit, May 17, 2024: Rafat returns with his , Karly, for a follow up. He has concerns regarding his left parotid/posterior auricular mass. The mass has grown over the past year, is tender and draining periodically. He was scheduled for surgery last year at although cancelled out of concern for a lengthy recovery. He denies any changes to his hearing. Will order imaging for comparison. M-protein and K/L ratio continue slowly rising. CBC is normal overall. Left posterior auricular mass: Updated Visit, February 09, 2024: Rafat returns today with Karly for a follow-up. Today his M spike is relatively stable it has increased slightly to 0.51. His K/L ratio is also stable at 2.42. CBC is normal. We will continue to monitor his M-protein. Patient states his back pain has improved and he is doing better. He is having some right hand pain that has been ongoing not getting any worse. His appetite is good. Energy fluctuates. No bowel or bladder issues. Updated Visit, November 10, 2023: Rafat returns with Karly for a follow up. PET/CT in August revealed no FDG avid neoplastic process. M-spike is relatively stable compared to July's value - 0.42 on 11/02. K/L ratio is stable as well. CBCis normal. If M-protein continues to rise, will repeat PET/CT. Updated Visit, August 11, 2023: Rafat returns with Karly for a follow up. M-protein is up to 0.41 as of last week - ordered PET/CT.Uncertain whether or not this M-spike reflects a resurgence of his myeloma or not. He complains of bilateral flank pain, different from his chronic spinal pain. But in a similar areaas his previous kyphoplasty. He has loose stools and some difficulty urinating, according to Karly. He has prescribed oxycodone but he does not take often as it causes constipation - although this may be beneficial as he has been having diarrhea. Updated Visit, February 10, 2023: Rafat returns today for follow up accompanied by his Karly, with concerns over a spot behind his [...] Doing well. No complaints but is fatigued. Karly is with as usual. Reviewed labs. No evidence of progressive disease. Updated Visit, February 11, 2022: Telephone only for 5 minutes Called Rafat alicia kraly as requested. Reviewed labs from 02/07/2022. 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 He has no complaints. 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 Still off treatment and still has no evidence of disease. Overall is doing well. M spike remain undetectable and all other labs are stable. Karly is with him. Updated Visit, December 18, [...] clot in January 2016. He went to [facility] for fatigue and diagnosed with a clot, [...] Revlimid. Had hospitalization in January 2017 to [facility] and had a kyphoplasty for compression fracture. [...] he remains on as of October 2017. __ REVIEW OF SYSTEMS Per HPI and otherwise negative by full review of organ systems. ECOG PERFORMANCE STATUS: 2 PHYSICAL EXAMINATION: Vitals: BP 130/70 Pulse 79 Temp (Src) 97.6 (Temporal) Resp 20 Ht 5' 10 (1.78m) Wt 256 lb2.8 oz (116.2kg) SpO2 93% BMI 36.76 kg/(m^2). Body surface area is 2.4 meters squared. Exam limited to gross visualization [...] skin without rash, lesions, wounds or petechiae. Image of left posterior auricular mass taken on 05/17/2024 is pasted above in HPI. ALLERGIES: ALLERGIES Allergen Reactions Penicillins Swelling Swelling of the mouth. MEDICATIONS: oxyCODONE IR (ROXICODONE) 5 mg immediate release tablet Take 1 tablet by mouth every 8 hours as needed for pain for up to 5 days. DEXCOM G7 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 oxyCODONE IR (ROXICODONE) 5 mg immediate release tablet Take 2 tablets by mouth every 6 hours as needed for up to 30 days. ACCU-CHEK ELIZABETH PLUS TEST STRP test strip BD INSULIN PEN NEEDLE UF 31 gauge x 5/16 ndle gabapentin (NEURONTIN) 300 mg capsule GABAPENTIN ORAL Take by mouth. escitalopram oxalate (LEXAPRO) 20 mg tablet Take 1 tablet by mouth once daily. warfarin (COUMADIN) 5 mg tablet Take 5 mg by mouth once daily. Weds and Sat 2.5 mg tamsulosin ER (FLOMAX) 0.4 mg cp24 Take 0.4 mg by mouth once daily. atorvastatin (LIPITOR) 20 mg tablet Take 20 mg by mouth once daily. LABORATORY VALUES: WBC (k/uL) Date Value 11/17/2024 6.50 RBC (m/uL) Date Value 11/17/2024 4.19 (L) Hemoglobin (g/dL) Date Value 11/17/2024 12.8 (L) Hematocrit (%) Date Value 11/17/2024 39.4 MCV (fL) Date Value 11/17/2024 94.0 MCH (pg) Date Value 11/17/2024 30.5 MCHC (g/dL) Date Value 11/17/2024 32.5 RDW-CV (%) Date Value 11/17/2024 13.4 Platelet Count (k/uL) Date Value 11/17/2024 177 MPV (fL) Date Value 11/17/2024 9.6 Glucose (mg/dL) Date Value 11/17/2024 149 (H) BUN (mg/dL) Date Value 11/17/2024 13 Creatinine (mg/dL) Date Value 11/17/2024 1.32 (H) Sodium (mmol/L) Date Value 11/17/2024 141 Potassium (mmol/L) Date Value 11/17/2024 4.1 Chloride (mmol/L) Date Value 11/17/2024 104 CO2 (mmol/L) Date Value 11/17/2024 27 Protein, Total (g/dL) Date Value 11/17/2024 6.8 11/17/2024 6.8 Albumin (g/dL) Date Value 11/17/2024 3.9 Calcium, Total (mg/dL) Date Value 11/17/2024 9.6 Alkaline Phosphatase (U/L) Date Value 11/17/2024 90 Bilirubin, Total (mg/dL) Date Value 11/17/2024 0.3 AST (U/L) Date Value 11/17/2024 20 ALT (U/L) Date Value 11/17/2024 13 M-Protein Concentration Date Value 11/17/2024 0.43 g/dL 08/19/2024 0.61 g/dL 05/10/2024 0.60 g/dL 02/02/2024 0.51 g/dL 11/03/2023 0.42 g/dL 12/11/2020 0.00 gm/dL 05/24/2020 0.00 gm/dL 12/01/2019 0.00 gm/dL 05/20/2019 0.00 gm/dL 03/22/2019 0.00 gm/dL DIAGNOSIS: (C07) 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 Drug use: No FAMILY HISTORY Problem Relation Age of Onset Cancer Mother Colon Cancer Father Colon Cancer Maternal Aunt I spent a total of 30 minutes on the date of service which included preparing to see the patient, llxr-dd-gayn patient care, completing clinical documentation, obtaining and/or reviewing separately obtained history, performing a medically appropriate examination, counseling and educating the patient/family/caregiver, ordering medications, tests, or procedures, independently interpreting results (not separately reported), communicating results to the patient/family/caregiver, and care coordination (not separately reported). Idalmis Basilio APRN, SENIOR SYSTEMS PROGRAMMER-C, [facility] Provided at: [place], [place] CC: Danilo Clark MD [facility] [id number] MD Frankie Manning MD documented in this encounterSouthview [facility] Center09-[facility]-2025 NoteS[facility]07-25-2025 Evaluation note* Diagnosis Onset Date Resolution Status Admit Date Back pain of thoracolumbar region acuteJuly 2024 2:15pmElevated cholesterolacuteJuly 2024 2:15pm Mucoepidermoid carcinoma of parotid glandacuteJuly 2024 2:15pmType 2 diabetes mellitus with diabetic polyneuropathyacuteJuly 2024 2:15pmType 2 diabetes mellitus with hyperglycemiaacuteJuly 2024 2:15pmHTN (hypertension)chronicJuly 2024 2:15pmMultiple myelomachronicJuly 2024 2:15pmBack pain of thoracolumbar regionacuteOctober 2024 1:48pm 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acuteOctober 2024 1:48pm Elevated cholesterolacuteOctober 2024 1:48pmLong term (current) use of anticoagulantsacuteOctober 2024 1:48pmMucoepidermoid carcinoma of parotid glandacuteOctober 2024 1:48pmOpiate analgesic use agreement existsacute January 10, 2025 1:48pmType 2 diabetes mellitus with diabetic polyneuropathy acuteOctober 2024 1:48pmType 2 diabetes mellitus with hyperglycemiaacute January 10, 2025 1:48pmHTN (hypertension)chronicOctober 2024 1:48pm Multiple myelomachronicOctober 2024 1:48pm [facility] Work Phone: [phone]) 725-315907-24-2025 History of Present illness Narrative* Jabier Aldridge DPM - 10/14/2024 4:00 PM EDT Patient: Rafat Bella : 1940 PCP: Danilo E Ball, DO SUBJECTIVE This is a 84 y.o. male that presents today with a CC of elongated, thick nails. Pt states nails have been elongated and thick for many years and cause pain with ambulation in shoegear. Pt has tried previous treatment with minimal relief. Pt presents today for nail care and treatment. Patient is DM2 History of hammertoe deformities Allergies: Allergies Allergen Reactions Lisinopril Penicillins Swelling Swelling of the mouth. Past Medical History: Past Medical History: Diagnosis Date BPH (benign prostatic hyperplasia) Diabetes (HCC) Gastric ulcer 2016 HLD (hyperlipidemia) HTN (hypertension) Hx pulmonary embolism Metastatic disease (HCC) Multiple myeloma (HCC) remission Medications: Current Outpatient Medications: atorvastatin (Lipitor) 20 MG tablet, Take 20 mg by mouth in the morning., Disp: , Rfl: escitalopram (Lexapro) 10 MG tablet, Take 10 mg by mouth in the morning., Disp: , Rfl: gabapentin (Neurontin) 300 MG capsule, Take 300 mg by mouth in the morning and 300 mg in the evening and 300 mg before bedtime., Disp: , Rfl: glimepiride (Amaryl) 1 MG tablet, Take 4 mg by mouth in the morning. Take with meals., Disp: , Rfl: hydrocortisone 2.5 % cream, APPLY TO FACE ONCE A DAY FRIDAY THROUGH FRIDAY OFF ON WEEKENDS (REPEAT NEEDED FOR FLARES), Disp: , Rfl: insulin glargine (Lantus SoloStar) 100 UNIT/ML pen, Inject 10 Units under the skin at bedtime., Disp: , Rfl: linaGLIPtin (Tradjenta) 5 MG tablet, Take 5 mg by mouth in the morning., Disp: , Rfl: losartan (Cozaar) 50 MG tablet, Take 50 mg by mouth in the morning., Disp: , Rfl: oxyCODONE (Oxy-IR) 5 MG immediate release capsule, Take 5 mg by mouth 2 (two) times a day as neededfor severe pain., Disp: , Rfl: tamsulosin (Flomax) 0.4 MG 24 hr capsule, Take 0.4 mg by mouth in the morning., Disp: , Rfl: warfarin (Coumadin) 5 MG tablet, Take 5 mg by mouth. Take as directed per After Visit Summary., Disp: , Rfl: Social History: Social History Socioeconomic History Marital status: Spouse name: Not on file Number of children: Not on file Years of education: Not on file Highest education level: Not on file Occupational History Not on file Tobacco Use Smoking status: Former Current packs/day: 1.00 Types: Cigarettes Passive exposure: Past Smokeless tobacco: Never Vaping Use Vaping status: Never Used Substance and Sexual Activity Alcohol use: Not Currently Drug use: Never Sexual activity: Defer Other Topics Concern Not on file Social History Narrative Not on file Social Drivers of Health Financial Resource Strain: Not on file Food Insecurity: Not on file Transportation Needs: Not on file Physical Activity: Not on file Stress: Not on file Social Connections: Not on file Intimate Partner Violence: Not on file Housing Stability: Not on file ROS: General: denies fever, chills, fatigue, malaise OBJECTIVE LE EXAM: DERM: Elongated thick yellow crumbly nails digits 1 through 10. Negative hair growth with thin shiny atrophic skin bilaterally Rubor to PIPJ regions 2 through 5 digits bilaterally VASC: Positive DP and negative PT pedal pulses NEURO: 5.07 [place]wood Bhavya monofilament test diminished to digits and forefoot bilaterally 125Hz tuning fork diminished to 1st MPJ bilaterally ORTHO: Positive pain on palpation to toenails of the left 1,2,3,4,5 toes and right 1,2,3,4,5 toes Flexion deformities 2 through 5 digits bilaterally ASSESSMENT 1. Diabetes mellitus due to underlying condition with diabetic polyneuropathy, unspecified whether longterm insulin use (HCC) 2. Pain due to onychomycosis of toenails of both feet 3. Acquired deformity of right toe 4. Acquired deformity of left toe PLAN Discussed proper foot care with patient today. Debride nails in length and thickness digits 1 through 10 Patient educated today on proper diabetic foot care including monitoring feet daily for any signs of infection openings in the skin or irregularities to both feet. Patient had a diabetic neurologicalexam today to both their feet and discussed proper shoe gear. Jabier Aldridge DPM documented in this encounterThe Rehabilitation Institute of St. [id number] NoteShelby [facility] Hospital07-22-2025 History of Present illness Narrative* Angelique Donis, DOROTHY.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 - 10/12/2024 2:31 PM EDT PALLIATIVE MEDICINE PROGRESS NOTE SERVICE DATE: October 12, 2024 IDENTIFICATION AND INTRODUCTION: Rafat Bella is a 84 year old male This visit took place In Ambulatory [facility] Facility Recording using ambient Prevently software for draft documentation of the visit was discussed with the patient/authorized life assurance representative; all questions welcomed and answered. Patient/authorized life assurance representative agreed to proceed CHIEF COMPLAINT: Neoplasm Related Pain PERTINENT MEDICAL HISTORY: Rafat Bella is an 84-year-old male with a history of multiple myeloma, presenting for follow-up. Subjective Patient reports occasional pain that is manageable and transient, affecting their back, hands, and most recently, their ear. Pain is typically alleviated with Tylenol or, in some cases, oxycodone. Patient is under the care of Dr. Clark and expresses satisfaction with the current management of symptoms. Patient denies any issues with bowel movements, chewing, or swallowing, and reports a robust appetite. No episodes of nausea are noted. Sleep quality is reported as good, and patient denies experiencing any overwhelming depression or anxiety, attributing emotional stability to the support of their caregiver. Caregiver mentions a busy schedule of appointments, with a particularly heavy week following a two-week period without appointments. They express a preference for minimizing additional appointments unless necessary. Exploration: Provider explored the patient's current symptom management and overall well- being, noting the effective pain management strategies in place. Provider inquired about potential issues with bowel movements, appetite, chewing, swallowing, nausea, sleep, and mental health, all of which were reported as s table and unproblematic by the patient. Provider acknowledged the patient's established relationship with Dr. Clark and the effective management of symptoms, offering to step in if future needs arise. Provider also inquired about the need for medication refills, confirming that the patient is continuing with gabapentin and does not require additional refills at this time. REVIEW OF SYSTEMS: Modified ESAS ([place] Symptom Assessment Scale) Information Provided By: Patient and Family member Pain: Mild Nausea: None Loss of Appetite: None Constipation: None Shortness of Breath: None Drowsiness: None Tiredness: None Depression: None Anxiety: None Objective PHYSICAL EXAMINATION: BP 128/73 Pulse 76 Temp 36.2 C (97.2 F) (Temporal) Resp 16 Wt 115 kg (253 lb 8.5 oz) BoZ287% BMI 36.38 kg/m General Appearance: No apparent distress Skin: No jaundice and No rash Eyes: Normal and No Icterus HENT: Atraumatic and Oropharnyx clear with moist mucous membranes Neck: Grossly normal and No masses Lungs: Normal effort, no cough CV: Not examined Abdomen: Not examined Musculoskeletal: Not examined Lymphatics: Not examined Neuro: Alert and oriented to time place and person Psych: Well groomed, Affect congruent with mood, and Good eye contact DATA: Diagnostic tests reviewed for today's visit: Most recent labs and imaging results. Creatinine Date Value Ref Range Status 09/19/2024 1.23 (H) 0.73 - 1.22 mg/dL Final Estimated Creatinine Clearance: 57.8 mL/min (A) (based on SCr of 1.23 mg/dL (H)). Opioid Management: No Assessment & Plan \ 1. Palliative care by specialist (Z51.5) - Patient is under the care of Dr. Clark and is comfortable with current management. - No current need for additional palliative care intervention at this time. - Patient and family are aware of my role and will contact me if any changes occur. 2. 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 (HCC) (C90.00) - Follow-up appointment with Dr. Jurado and lab work scheduled for next month. 3. 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 4. 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 - Continue current pain management regimen. 5. Constipation due to opioid therapy (K59.03) - No issues with bowel movements reported. Some elements copied from my note on 08/15/24, the elements have been updated and all reflect current decision making from today, 10/12/2024. I spent a total of 35 minutes on the date of the service which included preparing to see the patient, [id number] patient care, completing clinical documentation, obtaining and/or reviewing separately obtained history, performing a medically appropriate examination, counseling and educating the pat ient/family/caregiver, ordering medications, tests, or procedures, communicating with other HCPs (not separately reported), independently interpreting results (not separately reported), communicatingresults to the patient/family/caregiver, and care coordination (not separately reported) None Needed Palliative Medicine Nurse to do telephonic follow-up: No Formulation Scientist Services: None at this time Referral to Glass Sander: No, not at this time Angelique Donis NP, STUMPER FELLER.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 October 12, 2024 2:31 PM This note may have been partially generated using the [employer] voice recognition system. While every effort was made to correct voice recognition errors, kindly be aware that some errors may occasionally occur. documented in this encounterSouth[facility]07-22-2025 Instructions* Patient Instructions* Silvia Lehman, RN - 10/12/2024 12:16 PM EDT Follow up with Dr Pang in 3-4 months documented in this encounterSouthview [facility] Center07-22-2025 [facility] History of Present illness Narrative* Gurpreet Pang MD - 10/12/2024 11:47 AM EDT [facility] CC: Post op of Left parotidectomy performed on 09/17/2024 HPI: Patient is a 84 year old male with history of FNA showing AUS of left parotid, now s/p left parotidectomy about 4 weeks ago with pathology consistent with mucoepidermoid carcinoma, lymph node negative for carcinoma. Patient presents for post-operative visit. Current Outpatient Medications Medication Sig Dispense Refill oxyCODONE IR (ROXICODONE) 5 mg immediate release tablet Take 1 tablet by mouth every 8 hours as needed for pain for up to 5 days. 10 tablet 0 DEXCOM G7 TECHNICAL COMMUNICATION TEACHER misc USE AT HOME TO TEST BLOOD SUGAR 4-6 TIMES DAILY WITH SENSORS HUMULIN 70/30 U-100 KWIKPEN 100 unit/mL (70-30) pen INJECT 20 UNITS SUBCUTANEOUSLY IN THE MORNING AND 15 AT BEDTIME losartan (COZAAR) 50 mg tablet Take 50 mg by mouth once daily. ACCU-CHEK ELIZABETH PLUS TEST STRP test strip BD INSULIN PEN NEEDLE UF 31 gauge x 5/16 ndle gabapentin (NEURONTIN) 300 mg capsule 1 GABAPENTIN ORAL Take by mouth. escitalopram oxalate (LEXAPRO) 20 mg tablet Take 1 tablet by mouth once daily. 30 tablet 1 warfarin (COUMADIN) 5 mg tablet Take 5 mg by mouth once daily. Weds and Sat 2.5 mg tamsulosin ER (FLOMAX) 0.4 mg cp24 Take 0.4 mg by mouth once daily. atorvastatin (LIPITOR) 20 mg tablet Take 20 mg by mouth once daily. oxyCODONE IR (ROXICODONE) 5 mg immediate release tablet Take 2 tablets by mouth every 6 hours as needed for up to 30 days. 120 tablet 0 No current facility-administered medications for this visit. EXAM: Constitutional - General Appearance: well developed, well nourished, without obvious deformities Communication: speaks with a normal voice without hoarseness Head & Face - Overall: no obvious scars, lesions or masses Facial strength: normal and equal bilaterally Oral Cavity and oropharynx: mucosa, hard and soft palates, tongue, tonsil area, posterior pharyngeal wall, lips and gums are without lesions Neck: well healing modified Jered incision. appears symmetric, and on palpation is without masses or lymphadenopathy Neuro: CN III - CN XII grossly intact PATHOLOGY: 09/17/2024 - Surgical Pathology FINAL DIAGNOSIS A. 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 (See comment and synoptic report.) - One lymph node, negative for malignancy (0/1). B. Lymph node, left level 2, excision: - One lymph node, negative for malignancy (0/1). ASSESSMENT: Rafat Bella is a 84 year old male with a history of left parotidectomy for FNA with AUS. Surgical pathology demonstrated mucoepidermoid carcinoma. PLAN AND RECOMMENDATIONS: Discussed aquaphor to incision and sunscreen when outside Can consider follow up with rad/onc close to home, but discussed unlikely role for radiation in hiscase given complete resection, low grade and his overall frailty Follow up in 4 weeks Paula Gil MD Otolaryngology-Head and Neck Surgery PGY-5 For the service of: MD Gurpreet Manning MD Scribque Attestation: By signing my name below, I, Paula Gil MD, attest that this documentation has been preparedunder the direction and in the presence of Gurpreet Pang MD. Electronically Signed: Paula Gil MD, scribe, October 12, 2024 11:47 AM October 13, 2024 I participated in the history and physical exam of Rafat Bella. I discussed the management of Rafat Bella with the scribe and resident. I reviewed the scribe and resident's note and agree with the documented findings and plan of care. Gurpreet Pang MD * Olivia Rios OCCA - 10/12/2024 11:40 AM EDT Tobacco Use: Types: Cigars Was smoking cessation packet given? N/A - Patient is a non-smoker or quit >1 year ago. Was a referral initiated?N/A Patient is a non-smoker documented in this encounterSouth[facility]07-[facility]-2025 [facility] History of Present illness Narrative* Radha Murphy RN - 09/27/2024 3:45 PM EDT Patient in the office today for a BARB removal. BARB noted on left side of neck with very little to no drainage in the collection container. A suture was removed, BARB drain was pulled out, pressure dressing was applied to area d/t patient being anticoagulated. Area of removal was clean, dry and intact, very little to no drainage or blood was visible. Pt was educated on care at home with his . Bothverbally understood and denies needs at the end of today's visit. Radha Murphy RN documented in this encounterSouthview Medical Center07-07-2025 NoteS[facility]07-07-2025 Telephone encounter Note* Telephone Encounter - Zakiya Palma - 09/27/2024 12:52 PM EDT Spoke w/ and he will be in today. Thanks! Zakiya Palma [facility] Miscellaneous Notes* Telephone Encounter - Zakiya Palma - 09/27/2024 12:52 PM EDT Spoke w/ and he will be in today. Thanks! Zakiya Palma * Telephone Encounter - Rafaela Rodriguez RN - 09/27/2024 9:[address] Phil Gil office, called with okay to pull drain. Documented okay per Dr Villarreal in previous encounter. PSS: Please call to schedule Rafaela Rodriguez RN * Telephone Encounter - Abbie Eisenberg RN - 09/23/2024 1:41 PM EDT Pt calling to see if we are able to pull BARB drain. There is another phone encounter to her surgery team as well to see if it is ok to be pulled. Spoke with our Nurse sales promotion manager at the [place] office and we are able to pull the BARB if we get the okfrom the surgeon and the pt or we are aware of the post care needed. The patient would also have juan carlos here this afternoon as tomorrow is a holiday. Made the aware of all of this. She is also going to call the [facility] in the mean time while they wait to hear from her surgery team. Informed her to call us if they plan to come in so we know they are coming. verbalized understanding. Abbie Eisenberg RN documented in this encounterSouthview [facility] Center07-07-2025 Telephone encounter Note * Telephone Encounter - Rafaela Rodriguez RN - 09/27/2024 9:[address] Phil Gil office, called with okay to pull drain. Documented okay per Dr Villarreal in previous encounter. PSS: Please call to schedule Rafaela Rodriguez RN [facility]07-[facility] Telephone encounter Note* Telephone Encounter - Louise Mike RN - 09/23/2024 1:46 PM EDT Patient notified ok to have drain pulled in [place] per Dr. Pang. [facility]07-[facility] Miscellaneous Notes* Telephone Encounter - Louise Mike RN - 09/23/2024 1:46 PM EDT Patient notified ok to have drain pulled in [place] per Dr. Pang. * Telephone Encounter - Louise Mike RN - 09/23/2024 1:08 PM EDT Spoke with . States drain output has been about 10ml, twice a day. They are wondering if they can go to their doctor or the ED in [place] to have the drain pulled. 09/17/24 PAROTIDECTOMY (Left: Neck) * Telephone Encounter - Alexus Sullivan - 09/23/2024 12:38 PM EDT Person Calling:pts Reason for Call: [facility] Pt Phone #: [phone] Pharmacy Name and # : Pt last seen: 08/31/2024 Alexus Sullivan * Telephone Encounter - Tabitha Downs - 09/23/2024 11:29 AM EDT Pt needs a BARB tube removed, 20ml in the last 24 hours [facility] documented in this encounterSouthview [facility] Center07-03-2025 Telephone encounter Note * Telephone Encounter - Abbie Eisenberg RN - 09/23/2024 1:41 PM EDT Pt calling to see if we are able to pull BARB drain. There is another phone encounter to her surgery team as well to see if it is ok to be pulled. Spoke with our Nurse sales promotion manager at the [place] office and we are able to pull the BARB if we get the okfrom the surgeon and the pt or we are aware of the post care needed. The patient would also have juan carlos here this afternoon as tomorrow is a holiday. Made the aware of all of this. She is also going to call the [facility] in the mean time while they wait to hear from her surgery team. Informed her to call us if they plan to come in so we know they are coming. verbalized understanding. Abbie Eisenberg RN [facility]07-[facility] Telephone encounter Note* Telephone Encounter - Louise Mike RN - 09/23/2024 1:08 PM EDT Spoke with . States drain output has been about 10ml, twice a day. They are wondering if they can go to their doctor or the ED in [place] to have the drain pulled. 09/17/24 PAROTIDECTOMY (Left: Neck) [facility] Telephone encounter Note* Telephone Encounter - Alexus Sullivan - 09/23/2024 12:38 PM EDT Person Calling:pts Reason for Call: Wants [facility] know [facility]24 Pt Phone #: [phone] Pharmacy Name and # : Pt last seen: 08/31/2024 Alexus Sullivan [facility] Telephone encounter Note* Telephone Encounter - Tabitha Downs - 09/23/2024 11:29 AM EDT Pt needs a BARB tube removed, 20ml in the last 24 hours [place]? [facility]06-[facility]06-28-2025 Note [facility]06-[facility]-2025 NoteS[facility]06-27-2025 NoteS[facility]06-[facility]-2025 [facility] 09-13-2024 History of Present illness Narrative* Frankie Martinez MD - 09/13/2024 11:29 PM EDT Images from the original note were not included. Radiation Oncology - New Patient/Consult Note PATIENT NAME: Rafat Bella PATIENT Signed: Frankie Martinez MD I spent a total of 60 minutes on the date of the service which included preparing to see the patient, [id number] patient care, and counseling and educating the patient/family/caregiver. This document has been created with the use of voice recognition technology. It may contain inaccuracies, misspellings, inaccurate syntax or inappropriate word context that are a result of the inadequacies/shortcomings of said technology/software. * Dana Stephen RN - 08/19/2024 2:30 PM EDT Pacemaker/Defibrillator?N Previous Cancer(s)?Multiple Myeloma Previous Radiation?Yes--[facility] Lupus/Scleroderma?N On body monitoring device?Y-dexcom. Patient and his are aware he is unable to wear dexcom while receiving radiation therapy. He has home supplies for fingerstick blood sugar monitoring. Dana Stephen RN documented in this encounterSouthview Medical Center06-19-2025 Telephone encounter Note * Telephone Encounter - Gabi Granados - 09/09/2024 8:34 AM EDT 92209/09/[address] Clark's office. Allyson advises the AC instructions were faxed to the [facility] office with a confirmation received the fax went through at [phone]. Diane please advise you have received this fax. Gabi PERERA, ANA, [facility] Resource nurse Call to Dr Clark's office. Message left on the nursing line for Dr Clark. Inquired if letter receivedin regards to the AC. Contact info left on voice mail. Re-sent letter to current fax in [employer]. Gabi PERERA, ANA, [facility] Resource nurse [facility] Miscellaneous Notes* Telephone Encounter - Radha Granadose - 09/09/2024 8:34 AM EDT 92209/09/[address] Clark's office. Allyson advises the AC instructions were faxed to the [facility] office with a confirmation received the fax went through at [phone]. Diane please advise you have received this fax. Gabi PERERA RN, [facility] Resource nurse Call to Dr Clark's office. Message left on the nursing line for Dr Clark. Inquired if letter receivedin regards to the AC. Contact info left on voice mail. Re-sent letter to current fax in [employer]. Gabi PERERA RN, [facility] Resource nurse documented in this encounterSouthview Medical Center06-18-2025 NoteShel[facility]06-18-2025 History of Present illness Narrative* Richa Kyle RT(R) - 09/08/2024 3:08 PM EDT Radiology Service Progress Note PATIENT NAME: Rafat Bella DATE OF SERVICE: September 08, 2024 TIME: 3:08 PM PATIENT IDENTITY VERIFICATION COMPLETED USING TWO (2) IDENTIFIERS: Name and Date of confirmedby patient verbally. FALL SCREENING: Has the patient had 2 falls in the last year or 1 fall with injury or currently using an Ambulatory Assistive Device (Walker, Cane, Wheelchair, Crutches, etc.)? Yes, Patient High Riskfor Falls What interventions were put in place to prevent falls during this visit? Instructed Patient to Remain Seated (Not on Exam Table) Until Exam and Increased Observations by Caregivers PATIENT GENDER DATA: Assigned male at PATIENT RELEVANT IMPLANT DATA REVIEWED: Not Applicable PATIENT PRESENTS WITH AN IMPLANTABLE OR ATTACHED INTERIOR DESIGNER: No RADIOLOGY DEPARTMENT: General X-ray: Exam(s) Completed: Chest X-Ray PERIPHERAL IV DATA: Not applicable SIGNED BY: RT Aquilino(R) September 08, 2024 3:08 PM documented in this encounterSouthview Medical Center06-18-2025 Instructions* Patient Instructions* Diane Dickey APRN.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 - 09/08/2024 2:35 PM EDT PATIENT PREOPERATIVE INSTRUCTIONS Gurpreet Pang MD has scheduled you for your procedure at this surgery center: [facility] [place] Scheduling Office: [phone] --[address] [place] [address]. Please read below carefully for your personalized instructions. Dietary Restrictions: - No solid food after midnight. - You may have 12 ounces of clear liquids (water, clear juices such as apple juice or gatorade, carbonated beverages, clear tea, black coffee -NO CREAM OR SUGAR ) until 2 hours before scheduled arrival at facility. Medications: Unless instructed differently below, stay on all of your prescription medications until your surgery. Approved medications to take the morning of surgery with a sip of water: gabapentin (NEURONTIN) , losartan (COZAAR) Humulin Insulin - TAKE 75% OF USUAL DOSE NIGHT BEFORE SURGERY, IF POSSIBLE Check fasting AM Blood glucose. If 200 or greater, take half the prescribed dose. If Blood Sugar is under 200, hold AM insulin dose. If you start any new medications after today's visit, please contact the surgeon's office. Blood Thinning Medications: - Stop Coumadin 5 days before surgery or as directed by physician. - Do NOT stop aspirin or other anticoagulants without consulting with your kosher inspector or prescribing physician. - Stop NSAIDS (Ibuprofen, Advil, Aleve, Motrin, Celebrex, Mobic, etc.) 7 days before surgery, as directed by your surgeon. - Stop ALL herbal and dietary supplements 7 days before surgery. - You may take Tylenol (Acetaminophen) or any of your pain medications that do not contain aspirin or NSAIDS as needed. Important Reminders: - Candy, mints, and tobacco products are NOT permitted the morning of surgery. - Hearing aids, dentures and glasses may be worn the morning of surgery. - NO jewelry, body piercings, makeup, hairpins or contacts are to be worn the day of surgery. If you develop symptoms such as a fever, cold, or flu, or have other changes to your health within TWO DAYS of scheduled surgery or the morning of surgery, please contact the surgery center above. Personal Belongings: -Please have photo ID and insurance cards. -If you do not have a copy of advance directives on file with us, please bring a copy with you on the day of surgery. - Leave ALL valuables and money at home or with family members. For Outpatient Procedures: - YOU MUST HAVE A RESPONSIBLE COP TAKE YOU HOME. A INTERACTIVE MULTIMEDIA DESIGNER OR COOK ROOM SUPERVISOR CANNOT BE MADE A RESPONSIBLE COP. - We recommend that a responsible person stays with you overnight to take care of you. - You cannot stay in a hotel alone after outpatient surgery. You will not be permitted to have yoursurgery, if you do not have someone to take care of you. Arrival Time for Surgery: - To obtain your arrival time for surgery, call your physician's office the day before your surgery. - If you have received different instructions about finding out your arrival time from your surgeon, please follow those instructions. - If your surgery is scheduled for Friday, call the Friday before. Your surgeon s scheduler maintenance will tell you what time to call the office. - If you have not reached the departmental scheduler maintenance by 5 P.M., call [phone] after 5 P.M. the day before your surgery. Please be aware that emergency situations arise, which may delay or change your surgical time. If this happens, we will notify you as soon as possible and regret any inconvenience. If you already have an Advance Directive, please fax a copy to [phone] or email to for it to be added to your chart. If you do not have an Advance Directive, you can find the appropriate form and more information at [email or web address]. We recommend that youcomplete the Advance Directive form found on the website and bring it with you the day of your surgery. It can be witnessed and scanned into your chart that day. documented in this encounterSouthview Medical Center06-18-2025 History and physical note * Diane Dickey APRN.CNP - 09/08/2024 1:50 PM EDT Images from the original note were not included. [facility] HISTORY AND PHYSICAL EXAMINATION SERVICE DATE: 09/08/2024 SERVICE TIME: 2:12 PM PRIMARY CARE PHYSICIAN: Danilo Clark DO Assessment Patient has the following medical conditions which may affect valencia-operative course: Type 2 diabetes mellitus with diabetic chronic kidney disease, unspecified CKD stage, unspecified whether continuous churn buttermaker insulin use (HCC) Assessment: Managed with Humulin in morning and Bedtime CGM reports FBG 177 Hemoglobin A1C (%) Date Value 08/19/2024 7.5 12/01/2019 7.6 Anticoagulated Assessment: Hx PE ( 2015) managed with warfarin (COUMADIN) by PCP - guidance requested Stage 3b chronic kidney disease (HCC) Assessment: Lab trends stable. GFR 63 mL/min Creatinine Date Value Ref Range Status 08/19/2024 1.15 0.73 - 1.22 mg/dL Final 05/10/2024 1.34 (H) 0.73 - 1.22 mg/dL Final 02/02/2024 1.28 (H) 0.73 - 1.22 mg/dL Final 11/03/2023 1.41 (H) 0.73 - 1.22 mg/dL Final 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 (HCC) Assessment: Under care of Hematology/ONC Dr. Anibal Ash No current therapies Stable. Chronic pain due to neoplasm Assessment: Stable with Oxycodone prn, follows with PCP , palliative medicine. Primary hypertension Assessment: Managed with med, stable. Date: BP: 09/08/2024 117/71 08/24/2024 132/60 BMI 37.0-37.9, adult Assessment: Body mass index is 37.24 kg/m . Weight reduction encouraged. ANESTHESIA FINDINGS: Intubation History: No history of difficult intubation Significant Anesthesia Considerations: none Airway History: No history of difficult airway Espinoza Activity Status Index: METS: Walk indoors, such as around the house (1.75 METs) Do light work around the house, such as dusting or washing dishes (2.70 METs) Take care of self; that is eating, dressing, bathing, using the toilet (2.75 METs) Walk a block or two on level ground (2.75 METs) Do moderate work around the house, such as vacuuming, sweeping floors, or carrying in groceries (3.50 METs) Climb a flight of stairs or walk up a hill (5.50 METs) DASI Score: 18.95 Patient denies any chest pain or undue shortness of breath with the above physical activity. Clinical Frailty Scale: 3. Well, with treated comorbid disease STOP-Bang Score: Has or is being treated for high blood pressure BMI greater than 35 kg/m^2 Patient over 50 years old Has a large neck Male patient Denies snoring loudly Denies feeling tired, fatigued, or sleepy during the daytime Has not been observed to stop breathing or choking/gasping during sleep STOP-Bang Score: 5 I - PHYSICAL EVALUATION AIRWAY Patient intubated: No. Mallampati: III. TM distance: >3 FB. Neck ROM: full ROM without neurological symptoms. Mouth opening: adequate. Short neck: yes. Thick neck: yes (extra skin) Manuel present: no Lip Bite Test: II Microretrognathia/Micronagthia/Recessed Chin: No DENTAL Dental findings: teeth intact and missing tooth/teeth. Additional comments: missing molars. II - ANESTHESIA PLAN Anesthetic plan additional comments: *PACC/TCI - anesthesia choice. Beta Salomón Monitoring Plan Post Procedure Analgesic Plan Prepared for Surgery: optimally prepared for surgery, pending [see comment]. [LETTER] to PCP for warfarin (COUMADIN) guidance Results CONSULTS: Planned Anesthetic: anesthesia choice The Following Tests/Procedures Have Been Initiated: EKG, CXR , labs per Surgeon EKG performed REASON FOR VISIT: Rafat Bella is a 84 year old male who is scheduled for Procedure(s): PAROTIDECTOMY (Left) at the request of Dr. Gurpreet Pang for consultation. My final recommendationwill be communicated back to the requesting physician by way of shared medical record or letter. Subjective COVID-19 Immunization Status Current Care Gaps Covid-19 Vaccine (8 - Pfizer risk 2023- season) Overdue since 08/09/2024 02/10/2024 Imm Admin: COVID-19 vaccine, age 12+ yr (PFIZER-BIONTECH COMIRNATY) 12/25/2022 Imm Admin: COVID-19 vaccine, age 12+ yr, 2022- season (PFIZER-BIONTECH) 01/22/2022 Imm Admin: COVID-19 vaccine, age 12+ yr, bivalent (PFIZER-BIONTECH) Only the first 3 history entries have been loaded, but more history exists. 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 Pt. reports very little pain ; he denies any difficulty swallowing, breathing or sensation of obstruction. Pt. has had prior Biopsy, no other treatments. REVIEW OF SYSTEMS: General: No weight loss, malaise or fevers. 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 No neurological symptoms or problems. Respiratory: No history of current cough or dyspnea, or pneumonia in the past 6 weeks. No history of respiratory/pulmonary symptoms or problems. Cardiovascular: Positive for: anticoagulation therapy, DVT/PE, hyperlipidemia and hypertension Negative for: AICD/PPM, arrhythmia, atrial fibrillation, CAD, chest pain, murmur/valvular heart disease and PVD. GI: No history of GI symptoms or problems. No history of esophageal varices, recent ascites, or ETOH greater than 2 drinks per day. : Positive for: BPH and renal failure. Patient's renal failure is chronic. Negative for: dysuria, hematuria, nephrolithiasis and urinary tract infection. Endocrine: Positive for: diabetes mellitus. Patient's diabetes mellitus is controlled by insulin. Negative for: diabetic nephropathy, diabetic neuropathy and diabetic retinopathy. Hematology: Positive for: chronic anti-coagulation/platelet meds. Patient is on anti- coagulation/platelet medication(s): Coumadin. Negative for: anemia and thrombocytopenia. Oncology: (+) multiple myeloma Psych: No history of psychiatric symptoms or problems. Musculoskeletal: Positive for: back pain and joint pain. Skin: Negative for lesions, rash and itching. Implanted Devices: No implanted devices. PAST MEDICAL HISTORY Diagnosis Date Androgen deficiency [...] Types: Cigars Quit date: 12/12/1976 Years since quittin.7 Smokeless tobacco: Never Tobacco comments: Quit 40 years ago Vaping Use Vaping status: Never Used Substance Use Topics Alcohol use: Not Currently Comment: 2 beers per year. Drug use: No Prior to Admission medications as of 09/08/24 1430 Medication Sig Last Dose Taking HUMULIN 70/30 U-100 KWIKPEN 100 unit/mL (70-30) pen INJECT 20 UNITS SUBCUTANEOUSLY IN THE MORNING AND 15 AT BEDTIME Yes losartan (COZAAR) 50 mg tablet Take 50 mg by mouth once daily. Yes oxyCODONE IR (ROXICODONE) 5 mg immediate release tablet Take 2 tablets by mouth every 6 hours as needed for up to 30 days. Yes gabapentin (NEURONTIN) 300 mg capsule Yes escitalopram oxalate (LEXAPRO) 20 mg tablet Take 1 tablet by mouth once daily. Yes warfarin (COUMADIN) 5 mg tablet Take 5 mg by mouth once daily. Weds and Sat 2.5 mg Yes tamsulosin ER (FLOMAX) 0.4 mg cp24 Take 0.4 mg by mouth once daily. Yes atorvastatin (LIPITOR) 20 mg tablet Take 20 mg by mouth once daily. Yes DEXCOM G7 TECHNICAL COMMUNICATION TEACHER misc USE AT HOME TO TEST BLOOD SUGAR 4-6 TIMES DAILY WITH SENSORS ACCU-CHEK ELIZABETH PLUS TEST STRP test strip BD INSULIN PEN NEEDLE UF 31 gauge x 08/06 ndle GABAPENTIN ORAL Take by mouth. No medication comments found. ALLERGIES Allergen Reactions Penicillins Swelling Swelling of the mouth. Objective PHYSICAL EXAM: General: alert and oriented (x 3) and obese. Pertinent negatives noted - not distressed. Skin: normal color, no rash or lesions. HEENT: EOM intact, pupils equal round and pupils reactive to light. Pertinent negatives noted - no carotid bruit. left parotid gland- detailed deferred to Surgeon . Cardiovascular: regular rate and rhythm, normal S1 and S2, no rub, murmurs, or gallop. Pulse characterized as regular. Respiratory: normal breath sounds, no wheezes or crackles. No chest wall deformity or tenderness. Abdomen: bowel sounds present and soft. Pertinent negatives noted - not tender. Extremities: no deformity, no edema or tenderness, no joint swelling or clubbing. Neurological: normal cognition and motor skills. RAMIREZ 5/5, Slightly Altered gait with cane . PAIN ASSESSMENT: VITALS: BP 117/71 Pulse 70 Temp (Src) 97.9 (Temporal) Resp 16 Ht 5' 9 (1.75m) Wt 252 lb 3.3 oz (114.4kg) SpO2 99% BMI 37.23 kg/(m^2). Diagnostic tests reviewed for today's visit: Lab Value Units Date High Low HB 13.2 g/dL 08/19/2024 17.0 13.0 HCT 39.4 % 08/19/2024 51.0 39.0 WBC 5.66 k/uL 08/19/2024 11.00 3.70 PLT 201 k/uL 08/19/2024 400 150 NA 134 mmol/L 08/19/2024 144 136 K 4.2 mmol/L 08/19/2024 5.1 3.7 GLUC 279 mg/dL 08/19/2024 99 74 BUN 15 mg/dL 08/19/2024 24 9 CREAT 1.15 mg/dL 08/19/2024 1.22 0.73 PTSEC 27.4 sec 07/16/2024 13.0 9.7 INR 2.7 no uni* 07/16/2024 1.3 0.9 INR 1.5 no uni* 07/21/2024 1.2 0.8 APTT No results within date range. ALT 13 U/L 08/19/2024 54 10 AST 19 U/L 08/19/2024 40 14 TBILI 0.3 mg/dL 08/19/2024 1.3 0.2 TSH No results within date range. Lab Value Units Date High Low HCGQT No results within date range. UHCG No results within date range. HCG, BODY* No results within date range. Lab Value Units Date High Low ABORHD No results within date range. ABSCREEN No results within date range. Hemoglobin A1C (%) Date Value 08/19/2024 7.5 02/03/2023 7.9 12/01/2019 7.6 Recent Results (from the past 8760 hours) ECG COMPLETE Collection Time: 09/08/24 2:05 PM Result Value Ventricular Rate 78 Atrial Rate 78 P-R Interval 228 QRS Duration 90 QT Interval 356 QTC Calculation (Bazett) 405 Calculated P [place] 44 Calculated R [place] 43 Calculated T [place] 76 Impression SINUS RHYTHM WITH 1ST DEGREE AV BLOCK NONSPECIFIC T WAVE ABNORMALITY ABNORMAL ECG Instructions Given to Patient: Instructions located in the after visit summary. Patient given verbal and written preop instructions and voices comprehension and compliance. SIGNATURE: Diane Dickey APRN.CNP PATIENT NAME: Rafat Bella DATE: 09/08/2024 TIME: 2:12 PM [facility]06-18-2025 History and physical note* Diane Dickey APRN.CNP - 09/08/2024 1:50 PM EDT Images from the original note were not included. [facility] HISTORY AND PHYSICAL EXAMINATION SERVICE DATE: 09/08/2024 SERVICE TIME: 2:12 PM PRIMARY CARE PHYSICIAN: Danilo Clark DO Assessment Patient has the following medical conditions which may affect valencia-operative course: Type 2 diabetes mellitus with diabetic chronic kidney disease, unspecified CKD stage, unspecified whether longterm insulin use (HCC) Assessment: Managed with Humulin in morning and Bedtime CGM reports FBG 177 Hemoglobin A1C (%) Date Value 08/19/2024 7.5 12/01/2019 7.6 Anticoagulated Assessment: Hx PE ( 2015) managed with warfarin (COUMADIN) by PCP - guidance requested Stage 3b chronic kidney disease (HCC) Assessment: Lab trends stable. GFR 63 mL/min Creatinine Date Value Ref Range Status 08/19/2024 1.15 0.73 - 1.22 mg/dL Final 05/10/2024 1.34 (H) 0.73 - 1.22 mg/dL Final 02/02/2024 1.28 (H) 0.73 - 1.22 mg/dL Final 11/03/2023 1.41 (H) 0.73 - 1.22 mg/dL Final 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 (HCC) Assessment: Under care of Hematology/ONC Dr. Anibal Ash No current therapies Stable. Chronic pain due to neoplasm Assessment: Stable with Oxycodone prn, follows with PCP , palliative medicine. Primary hypertension Assessment: Managed with med, stable. Date: BP: 09/08/2024 117/71 08/24/2024 132/60 BMI 37.0-37.9, adult Assessment: Body mass index is 37.24 kg/m . Weight reduction encouraged. ANESTHESIA FINDINGS: Intubation History: No history of difficult intubation Significant Anesthesia Considerations: none Airway History: No history of difficult airway Espinoza Activity Status Index: METS: Walk indoors, such as around the house (1.75 METs) Do light work around the house, such as dusting or washing dishes (2.70 METs) Take care of self; that is eating, dressing, bathing, using the toilet (2.75 METs) Walk a block or two on level ground (2.75 METs) Do moderate work around the house, such as vacuuming, sweeping floors, or carrying in groceries (3.50 METs) Climb a flight of stairs or walk up a hill (5.50 METs) DASI Score: 18.95 Patient denies any chest pain or undue shortness of breath with the above physical activity. Clinical Frailty Scale: 3. Well, with treated comorbid disease STOP-Bang Score: Has or is being treated for high blood pressure BMI greater than 35 kg/m^2 Patient over 50 years old Has a large neck Male patient Denies snoring loudly Denies feeling tired, fatigued, or sleepy during the daytime Has not been observed to stop breathing or choking/gasping during sleep STOP-Bang Score: 5 I - PHYSICAL EVALUATION AIRWAY Patient intubated: No. Mallampati: III. TM distance: >3 FB. Neck ROM: full ROM without neurological symptoms. Mouth opening: adequate. Short neck: yes. Thick neck: yes (extra skin) Manuel present: no Lip Bite Test: II Microretrognathia/Micronagthia/Recessed Chin: No DENTAL Dental findings: teeth intact and missing tooth/teeth. Additional comments: missing molars. II - ANESTHESIA PLAN Anesthetic plan additional comments: *PACC/TCI - anesthesia choice. Beta Salomón Monitoring Plan Post Procedure Analgesic Plan Prepared for Surgery: optimally prepared for surgery, pending [see comment]. [LETTER] to PCP for warfarin (COUMADIN) guidance Results CONSULTS: Planned Anesthetic: anesthesia choice The Following Tests/Procedures Have Been Initiated: EKG, CXR , labs per Surgeon EKG performed REASON FOR VISIT: Rafat Bella is a 84 year old male who is scheduled for Procedure(s): PAROTIDECTOMY (Left) at the request of Dr. Gurpreet Pang for consultation. My final recommendationwill be communicated back to the requesting physician by way of shared medical record or letter. Subjective COVID-19 Immunization Status Current Care Gaps Covid-19 Vaccine (8 - Pfizer risk 2023- season) Overdue since 08/09/2024 02/10/2024 Imm Admin: COVID-19 vaccine, age 12+ yr (PFIZER-BIONTECH COMIRNATY) 12/25/2022 Imm Admin: COVID-19 vaccine, age 12+ yr, 2022- season (PFIZER-BIONTECH) 01/22/2022 Imm Admin: COVID-19 vaccine, age 12+ yr, bivalent (PFIZER-BIONTECH) Only the first 3 history entries have been loaded, but more history exists. 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 Pt. reports very little pain ; he denies any difficulty swallowing, breathing or sensation of obstruction. Pt. has had prior Biopsy, no other treatments. REVIEW OF SYSTEMS: General: No weight loss, malaise or fevers. 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 No neurological symptoms or problems. Respiratory: No history of current cough or dyspnea, or pneumonia in the past 6 weeks. No history of respiratory/pulmonary symptoms or problems. Cardiovascular: Positive for: anticoagulation therapy, DVT/PE, hyperlipidemia and hypertension Negative for: AICD/PPM, arrhythmia, atrial fibrillation, CAD, chest pain, murmur/valvular heart disease and PVD. GI: No history of GI symptoms or problems. No history of esophageal varices, recent ascites, or ETOH greater than 2 drinks per day. : Positive for: BPH and renal failure. Patient's renal failure is chronic. Negative for: dysuria, hematuria, nephrolithiasis and urinary tract infection. Endocrine: Positive for: diabetes mellitus. Patient's diabetes mellitus is controlled by insulin. Negative for: diabetic nephropathy, diabetic neuropathy and diabetic retinopathy. Hematology: Positive for: chronic anti-coagulation/platelet meds. Patient is on anti- coagulation/platelet medication(s): Coumadin. Negative for: anemia and thrombocytopenia. Oncology: (+) multiple myeloma Psych: No history of psychiatric symptoms or problems. Musculoskeletal: Positive for: back pain and joint pain. Skin: Negative for lesions, rash and itching. Implanted Devices: No implanted devices. PAST MEDICAL HISTORY Diagnosis Date Androgen deficiency [...] Types: Cigars Quit date: 12/12/1976 Years since quittin.7 Smokeless tobacco: Never Tobacco comments: Quit 40 years ago Vaping Use Vaping status: Never Used Substance Use Topics Alcohol use: Not Currently Comment: 2 beers per year. Drug use: No Prior to Admission medications as of 09/08/24 1430 Medication Sig Last Dose Taking HUMULIN 70/30 U-100 KWIKPEN 100 unit/mL (70-30) pen INJECT 20 UNITS SUBCUTANEOUSLY IN THE MORNING AND 15 AT BEDTIME Yes losartan (COZAAR) 50 mg tablet Take 50 mg by mouth once daily. Yes oxyCODONE IR (ROXICODONE) 5 mg immediate release tablet Take 2 tablets by mouth every 6 hours as needed for up to 30 days. Yes gabapentin (NEURONTIN) 300 mg capsule Yes escitalopram oxalate (LEXAPRO) 20 mg tablet Take 1 tablet by mouth once daily. Yes warfarin (COUMADIN) 5 mg tablet Take 5 mg by mouth once daily. Weds and Sat 2.5 mg Yes tamsulosin ER (FLOMAX) 0.4 mg cp24 Take 0.4 mg by mouth once daily. Yes atorvastatin (LIPITOR) 20 mg tablet Take 20 mg by mouth once daily. 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 No medication comments found. ALLERGIES Allergen Reactions Penicillins Swelling Swelling of the mouth. Objective PHYSICAL EXAM: General: alert and oriented (x 3) and obese. Pertinent negatives noted - not distressed. Skin: normal color, no rash or lesions. HEENT: EOM intact, pupils equal round and pupils reactive to light. Pertinent negatives noted - no carotid bruit. left parotid gland- detailed deferred to Surgeon . Cardiovascular: regular rate and rhythm, normal S1 and S2, no rub, murmurs, or gallop. Pulse characterized as regular. Respiratory: normal breath sounds, no wheezes or crackles. No chest wall deformity or tenderness. Abdomen: bowel sounds present and soft. Pertinent negatives noted - not tender. Extremities: no deformity, no edema or tenderness, no joint swelling or clubbing. Neurological: normal cognition and motor skills. RAMIREZ 5/5, Slightly Altered gait with cane . PAIN ASSESSMENT: VITALS: BP 117/71 Pulse 70 Temp (Src) 97.9 (Temporal) Resp 16 Ht 5' 9 (1.75m) Wt 252 lb 3.3 oz (114.4kg) SpO2 99% BMI 37.23 kg/(m^2). Diagnostic tests reviewed for today's visit: Lab Value Units Date High Low HB 13.2 g/dL 08/19/2024 17.0 13.0 HCT 39.4 % 08/19/2024 51.0 39.0 WBC 5.66 k/uL 08/19/2024 11.00 3.70 PLT 201 k/uL 08/19/2024 400 150 NA 134 mmol/L 08/19/2024 144 136 K 4.2 mmol/L 08/19/2024 5.1 3.7 GLUC 279 mg/dL 08/19/2024 99 74 BUN 15 mg/dL 08/19/2024 24 9 CREAT 1.15 mg/dL 08/19/2024 1.22 0.73 PTSEC 27.4 sec 07/16/2024 13.0 9.7 INR 2.7 no uni* 07/16/2024 1.3 0.9 INR 1.5 no uni* 07/21/2024 1.2 0.8 APTT No results within date range. ALT 13 U/L 08/19/2024 54 10 AST 19 U/L 08/19/2024 40 14 TBILI 0.3 mg/dL 08/19/2024 1.3 0.2 TSH No results within date range. Lab Value Units Date High Low HCGQT No results within date range. UHCG No results within date range. HCG, BODY* No results within date range. Lab Value Units Date High Low ABORHD No results within date range. ABSCREEN No results within date range. Hemoglobin A1C (%) Date Value 08/19/2024 7.5 02/03/2023 7.9 12/01/2019 7.6 Recent Results (from the past 8760 hours) ECG COMPLETE Collection Time: 09/08/24 2:05 PM Result Value Ventricular Rate 78 Atrial Rate 78 P-R Interval 228 QRS Duration 90 QT Interval 356 QTC Calculation (Bazett) 405 Calculated P [place] 44 Calculated R [place] 43 Calculated T [place] 76 Impression SINUS RHYTHM WITH 1ST DEGREE AV BLOCK NONSPECIFIC T WAVE ABNORMALITY ABNORMAL ECG Instructions Given to Patient: Instructions located in the after visit summary. Patient given verbal and written preop instructions and voices comprehension and compliance. SIGNATURE: Diane Dickey APRN.CNP PATIENT NAME: Rafat Bella DATE: 09/08/2024 TIME: 2:12 PM [facility] NoteHNO ID: [id number] Author: SARA PRITCHETT RN Service: ? Author Type: Registered Nurse Type: Progress Notes Filed: 09/10/2024 08:19 Note Text[facility] History of Present illness Narrative* Sara Pritchett RN - 09/03/2024 3:34 PM EDT error [facility] Telephone encounter Note * Telephone Encounter - Alexus Sullivan - 08/31/2024 2:37 PM EDT Person Calling:pts spouse Reason for Call: would like a call back in regards to pt getting scheduled for surgery Pt Phone #: [phone] Pharmacy Name and # : Pt last seen: 08/02/2024 Alexus Sullivan [facility]06-10-2025 Miscellaneous Notes* Telephone Encounter - Alexus Sullivan - 08/31/2024 2:37 PM EDT Person Calling:pts spouse Reason for Call: would like a call back in regards to pt getting scheduled for surgery Pt Phone #: [phone] Pharmacy Name and # : Pt last seen: 08/02/2024 Alexus Sullivan [facility] Instructions* Patient Instructions* Angelique Donis APRN.MICHAEL - 08/24/2024 1:25 PM EDT Angelique Donis CNP Department of Palliative and Supportive Care Palliative Care - Specialty services in symptom management and support For questions or prescription refills, call: [phone] Friday - Friday 9AM-5PM TREEVR Guadarrama, RN - Signal Apprentice Please call 3-5 days in advance for medication refills Evenings, Weekends, Holidays: [phone] (ask for palliative medicine on-call provider) For appointments, cancellations or reschedule, call: [phone] documented in this [facility] History of Present illness Narrative* Angelique Donis APRN.CNP - 08/24/2024 1:19 PM EDT PALLIATIVE MEDICINE INITIAL CONSULT SERVICE DATE: 08/24/2024 Referring Physician: Gurpreet Pang MD Medical Oncologist: Anibal Ash MD Radiation Oncologist: Frankie Martinez MD Primary Physician: Danilo Clark DO REASON FOR CONSULT: Pain management Subjective Rafat Bella is a 84 year old male with history of multiple myeloma currently being observed off treatment. New diagnosis of left parotid gland tumor,mucoepidermoid carcinoma , pending resection with Dr. Pang. Then systemic therapy No pain in head or neck, no swallowing difficulty. Chronic pain in left arm and hand since myeloma treatment, pain is described in neuropathic terms, uses gabapentin tid and prn oxy sparingly. Pain currently managed by PCP. Weight and appetite stable. No abdominal pain, constipation, diarrhea. No significant emotional, spiritual, or sleep disturbance. 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 oxyCODONE IR (ROXICODONE) 5 mg immediate release tablet Take 2 tablets by mouth every 6 hours as needed for up to 30 days. ACCU-CHEK ELIZABETH PLUS TEST STRP test strip BD INSULIN PEN NEEDLE UF 31 gauge x 5/16 ndle gabapentin (NEURONTIN) 300 mg capsule GABAPENTIN ORAL Take by mouth. escitalopram oxalate (LEXAPRO) 20 mg tablet Take 1 tablet by mouth once daily. warfarin (COUMADIN) 5 mg tablet Take 5 mg by mouth once daily. Weds and Sat 2.5 mg tamsulosin ER (FLOMAX) 0.4 mg cp24 Take 0.4 mg by mouth once daily. atorvastatin (LIPITOR) 20 mg tablet Take 20 mg by mouth once daily. insulin glargine 100 unit/mL (3 mL) Inject 10 Units subcutaneously daily at bedtime. ALLERGIES: ALLERGIES Allergen Reactions Penicillins Swelling Swelling of the mouth. FAMILY HISTORY: FAMILY HISTORY Problem Relation Age of Onset Cancer Mother Colon Cancer Father Colon Cancer Maternal Aunt SOCIAL HISTORY: Drug Use: No Alcohol Use: Not Currently (2 beers per year.) Tobacco Use: Types: Cigars REVIEW OF SYSTEMS: Modified ESAS ([place] Symptom Assessment Scale): Information Provided By: Patient and Family member Pain: Mild Nausea: None Loss of Appetite: None Constipation: None Shortness of Breath: None Drowsiness: None Tiredness: None Depression: None Anxiety: None Review of Systems Constitutional: Negative for activity change, appetite change and unexpected weight change. HENT: Negative for trouble swallowing and voice change. Eyes: Negative for pain, discharge and visual disturbance. Respiratory: Negative for cough, chest tightness and shortness of breath. Cardiovascular: Negative for chest pain, palpitations and leg swelling. Gastrointestinal: Positive for constipation. Negative for abdominal distention, abdominal pain, blood in stool, diarrhea and nausea. Endocrine: Negative for polyuria. Genitourinary: Negative for difficulty urinating, dysuria, enuresis and hematuria. Skin: Negative. Neurological: Negative for dizziness, tremors, speech difficulty, weakness and headaches. Psychiatric/Behavioral: Negative for confusion, sleep disturbance and suicidal ideas. The patient is not nervous/anxious. All other systems reviewed and are negative. Objective ECOG PERFORMANCE STATUS: 2- Ambulatory and capable of all selfcare; unable to carry out work activities. Up and about > 50% of waking hrs. PHYSICAL EXAMINATION: Vital signs: BP 132/60 Pulse 89 Temp 36.6 C (97.9 F) (Temporal) Resp 16 Wt 114.3 kg (251 lb15.8 oz) SpO2 94% BMI 36.82 kg/m Last 1 Encounter Temp Readings: Date: Temp: Temp Src: 08/24/2024 36.6 C (97.9 F) Temporal Last 1 Encounter Resp Readings: Date: Resp: 08/24/2024 16 Last 1 Encounter Pulse Readings: Date: Pulse: 08/24/2024 89 Last 1 Encounter BP Readings: Date: BP: 08/24/2024 132/60 Physical Exam Constitutional: Appearance: He is well-groomed. HENT: Head: Normocephalic and atraumatic. Jaw: There is normal jaw occlusion. Right Ear: Hearing and external ear normal. Left Ear: Hearing and external ear normal. Nose: Nose normal. Mouth/Throat: Lips: [place]. Mouth: Mucous membranes are moist. No oral lesions. Eyes: General: Lids are normal. Gaze aligned appropriately. Extraocular Movements: Extraocular movements intact. Conjunctiva/sclera: Conjunctivae normal. Neck: Thyroid: No thyroid mass. Pulmonary: Effort: Pulmonary effort is normal. Musculoskeletal: General: No swelling, tenderness or deformity. Normal range of motion. Right shoulder: Normal. Left shoulder: Normal. Right upper arm: Normal. Left upper arm: Normal. Cervical back: Full passive range of motion without pain. Right lower leg: No edema. Left lower leg: No edema. Skin: General: Skin is warm and dry. Capillary Refill: Capillary refill takes less than 2 seconds. Findings: No rash. Neurological: General: No focal deficit present. Mental Status: He is alert and oriented to person, place, and time. Psychiatric: Attention and Perception: Attention normal. Mood and Affect: Mood normal. Speech: Speech normal. Behavior: Behavior normal. Behavior is cooperative. Thought Content: Thought content normal. Cognition and Memory: Cognition and memory normal. Judgment: Judgment normal. DATA: Diagnostic tests reviewed for today's visit: Most recent labs and imaging results. Estimated Creatinine Clearance: 61.1 mL/min (based on SCr of 1.15 mg/dL). 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 Clark first - continue stool softener when you se oxy Some elements copied from Oncology note on 08/19/24, the elements have been updated and all reflect current decision making from today, 08/24/2024. Existence of Advance Directives: No - not interested Next Visit:6-8 Weeks in person Recommendations will be communicated back to the consulting service by way of shared electronic medical record. Angelique Donis NP, STUMPER FELLER.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 August 24, 2024 1:49 PM This note may have been partially generated using the [employer] voice recognition system. While every effort was made to correct voice recognition errors, kindly be aware that some errors may occasionally occur. documented in this [facility] Telephone encounter Note * Telephone Encounter - Ann Orta - 08/20/2024 7:15 AM EDT Images from the original note were not included. [facility] Miscellaneous Notes* Telephone Encounter - Ann Orta - 08/20/2024 7:15 AM EDT Images from the original note were not included. documented in this encounterSouth[facility]05-29-2025 [facility] Instructions* Patient Instructions* Stacie Schultz - 08/19/2024 4:03 PM EDT Triage to call results of today's labs Proceed surgery with Dr. Pang & radiation with Dr. Martinez [facility] in 3 months Labs 1 week prior documented in this encounterSouth[facility] Center05-29-[facility]25 History of Present illness Narrative* Anibal Ash MD - 08/19/2024 4:00 PM EDT Images from the original note were not included. NAME: Rafat Bella [facility] NO[facility] [id number] DATE OF SERVICE: August 19, 2024 (Mihir) Some elements in this clinic note that are critical to medical decision making have been carefully reviewed and included from a prior clinic note dated: May 17, 2024 (Mihir) Referring Provider: Danilo Clark Additional Clinicians involved in Rafat Bella's care: Frankie Manning CC: Multiple myeloma ASSESSMENT: 84 year old gentleman with multiple myeloma currently being observed off treatment. Previous pulmonary embolus in 2015. He responded very nicely to treatment and was monitored for 2 yearswithout evidence of disease before stopping subsequent therapy since March 2019. M-spike remains low. Pulmonary embolus in January 2016. Predates his [...] positive in his one large humerus lesion. M-spike had been 0 abut now is starting to rise slowly although no additional lesions noted on PET/CT and k/L ratio is fdstable. Bone prophylaxis Previously receieved zolendronic acid. New diagnosis of left parotid gland tumor, pending resection with Dr. Pang. PLAN: Triage to call results of today's labs Proceed surgery with Dr. Pang & radiation with Dr. Martinez if required RTC in 3 months Labs 1 week prior ___ HPI: CASE HISTORY: Reverse Chronological Order 07/21/2024 - A. Left parotid, mass, needle biopsy - Specimen #: [id number] - Mucoepidermoid carcinoma Comment: No high grade carcinoma features are identified on the biopsy, although grading is best evaluated on the resection specimen. 05/28/2024 - CT Neck Soft Tissue: Slight interval increase in size of left parotid mass since 08/29/2023 worrisome for primary neoplasm. Otherwise stable appearance of the soft tissues of the neck. 05/10/2024 - M-protein concentration: 0.60 02/02/2024 - CBC: 6.18 > 13.8 / 40.7 < 181, eGFR: 56, Creatinine: 1.28 [place]: 109.2, Lambda: 45.1, K/L Ratio: 2.42 IgA: 258, Ig, IgM: 316 M-protein concentration: 0.51 11/03/2023 - M-protein: 0.42 08/29/2023 - PET/CT: No FDG avid neoplastic process. 08/04/2023 - M-protein: 0.41 multiple previous values of 0.00. 02/26/2023 - US Soft Tissue Head/Neck: Heterogeneous, avascular, suspicious appearing mass within left parotid gland region; not appreciably changed compared to 01/03/2023. 02/07/2023 - CT Soft Tissue Neck: Along the posterior inferior aspect of the left parotid gland there is a heterogeneous enhancing rounded lesion with areas of hypoenhancement measuring approximately 2 x 2 by 1.7 cm in AP, TV and CC dimensions. Differential diagnosis include but not limited to primary parotid neoplasm such as pleomo rphic adenoma, Warthin's tumor versus enlarged intraparotid lymph node. 01/17/2023 - Left parotid biopsy: at [facility] Atypia of undetermined significance 2018 - Completed radiotherapy MRI thoracic spine [...] kyphoplasty shortly after diagnosis. Updated Visit, August 19, 2024: Rafat returns with Karly. 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 Gurpreet Pang and radiation with Dr. Martinez. Today's myeloma panel is in process, anticipate continuing q 3 month follow ups. Updated Visit, May 17, 2024: Rafat returns with his , Karly, for a follow up. He has concerns regarding his left parotid/posterior auricular mass. The mass has grown over the past year, is tender and draining periodically. He was scheduled for surgery last year at although cancelled out of concern for a lengthy recovery. He denies any changes to his hearing. Will order imaging for comparison. M-protein and K/L ratio continue slowly rising. CBC is normal overall. Left posterior auricular mass: Updated Visit, February 09, 2024: Rafat returns today with Karly for a follow-up. Today his M spike is relatively stable it has increased slightly to 0.51. His K/L ratio is also stable at 2.42. CBC is normal. We will continue to monitor his M-protein. Patient states his back pain has improved and he is doing better. He is having some right hand pain that has been ongoing not getting any worse. His appetite is good. Energy fluctuates. No bowel or bladder issues. Updated Visit, November 10, 2023: Rafat returns with Karly for a follow up. PET/CT in August revealed no FDG avid neoplastic process. M-spike is relatively stable compared to July's value - 0.42 on 11/02. K/L ratio is stable as well. CBCis normal. If M-protein continues to rise, will repeat PET/CT. Updated Visit, August 11, 2023: Rafat returns with Karly for a follow up. M-protein is up to 0.41 as of last week - ordered PET/CT.Uncertain whether or not this M-spike reflects a resurgence of his myeloma or not. He complains of bilateral flank pain, different from his chronic spinal pain. But in a similar areaas his previous kyphoplasty. He has loose stools and some difficulty urinating, according to Karly. He has prescribed oxycodone but he does not take often as it causes constipation - although this may be beneficial as he has been having diarrhea. Updated Visit, February 10, 2023: Rafat returns today for follow up accompanied by his Karly, with concerns over a spot behind his [...] Doing well. No complaints but is fatigued. Karly is with as usual. Reviewed labs. No evidence of progressive disease. Updated Visit, February 11, 2022: Telephone only for 5 minutes Called Rafat and karly as requested. Reviewed labs from 02/07/2022. 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 He has no complaints. 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 Still off treatment and still has no evidence of disease. Overall is doing well. M spike remain undetectable and all other labs are stable. Karly is with him. Updated Visit, December 18, [...] clot in January 2016. He went to [facility] for fatigue and diagnosed with a clot, [...] Revlimid. Had hospitalization in January 2017 to [facility] and had a kyphoplasty for compression fracture. [...] he remains on as of October 2017. __ REVIEW OF SYSTEMS Per HPI and otherwise negative by full review of organ systems. ECOG PERFORMANCE STATUS: 2 PHYSICAL EXAMINATION: Vitals: BP 145/77 Pulse 72 Temp (Src) 97.7 (Temporal) Resp 18 Ht 5' 9.37 (1.76m) Wt 252 lb 13.9 oz (114.7kg) SpO2 95% BMI 36.94 kg/(m^2). Body surface area is 2.37 meters squared. Exam limited to gross visualization [...] skin without rash, lesions, wounds or petechiae. Image of left posterior auricular mass taken on 05/17/2024 is pasted above in HPI. ALLERGIES: ALLERGIES Allergen Reactions Penicillins Swelling Swelling of the mouth. 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 ACCU-CHEK ELIZABETH PLUS TEST STRP test strip BD INSULIN PEN NEEDLE UF 31 gauge x 16 ndle gabapentin (NEURONTIN) 300 mg capsule GABAPENTIN ORAL Take by mouth. escitalopram oxalate (LEXAPRO) 20 mg tablet Take 1 tablet by mouth once daily. warfarin (COUMADIN) 5 mg tablet Take 5 mg by mouth once daily. Weds and Sat 2.5 mg tamsulosin ER (FLOMAX) 0.4 mg cp24 Take 0.4 mg by mouth once daily. atorvastatin (LIPITOR) 20 mg tablet Take 20 mg by mouth once daily. insulin glargine 100 unit/mL (3 mL) Inject 10 Units subcutaneously daily at bedtime. pioglitazone (ACTOS) 15 mg tablet Take 15 mg by mouth daily before breakfast. (Patient not taking: Reported on 07/08/2024) oxyCODONE IR (ROXICODONE) 5 mg immediate release tablet Take 2 tablets by mouth every 6 hours as needed for up to 30 days. acyclovir (ZOVIRAX) 400 mg tablet TAKE ONE TABLET BY MOUTH TWICE DAILY (Patient not taking: Reported on 07/08/2024) predniSONE (DELTASONE) 5 mg tablet Take 1 tablet by mouth once daily. VOLTAREN 1 % topical gel Apply 2 g to affected area four times daily. (Patient not taking: Reported on 08/13/2024) senna-docusate (MEDI-NATURAL SENNA-STOOL) 8.6-50 mg per tablet Take 2 tablets by mouth twice daily.(Patient not taking: Reported on 08/13/2024) linaGLIPtin (TRADJENTA) 5 mg tab Take 5 mg by mouth once daily. (Patient not taking: Reported on 07/08/2024) ondansetron (ZOFRAN) 4 mg tablet Take 4 mg by mouth every 8 hours as needed. pantoprazole DR (PROTONIX) 40 mg tablet Take 40 mg by mouth once daily. (Patient not taking: Reported on 07/08/2024) Losartan-Hydrochlorothiazide 100-12.5 mg per tablet Take 1 tablet by mouth once daily. 1/2 tab daily (Patient not taking: Reported on 08/13/2024) LABORATORY VALUES: WBC (k/uL) Date Value 08/19/2024 5.66 RBC (m/uL) Date Value 08/19/2024 4.31 Hemoglobin (g/dL) Date Value 08/19/2024 13.2 Hematocrit (%) Date Value 08/19/2024 39.4 MCV (fL) Date Value 08/19/2024 91.4 MCH (pg) Date Value 08/19/2024 30.6 MCHC (g/dL) Date Value 08/19/2024 33.5 RDW-CV (%) Date Value 08/19/2024 12.6 Platelet Count (k/uL) Date Value 08/19/2024 201 MPV (fL) Date Value 08/19/2024 9.6 Glucose (mg/dL) Date Value 08/19/2024 279 (H) BUN (mg/dL) Date Value 08/19/2024 15 Creatinine (mg/dL) Date Value 08/19/2024 1.15 Sodium (mmol/L) Date Value 08/19/2024 134 (L) Potassium (mmol/L) Date Value 08/19/2024 4.2 Chloride (mmol/L) Date Value 08/19/2024 101 CO2 (mmol/L) Date Value 08/19/2024 25 Protein, Total (g/dL) Date Value 08/19/2024 6.6 Albumin (g/dL) Date Value 08/19/2024 3.7 (L) Calcium, Total (mg/dL) Date Value 08/19/2024 9.5 Alkaline Phosphatase (U/L) Date Value 08/19/2024 99 Bilirubin, Total (mg/dL) Date Value 08/19/2024 0.3 AST (U/L) Date Value 08/19/2024 19 ALT (U/L) Date Value 08/19/2024 13 M-Protein Concentration Date Value 05/10/2024 0.60 g/dL 02/02/2024 0.51 g/dL 11/03/2023 0.42 g/dL 08/04/2023 0.41 g/dL 02/03/2023 0.00 g/dL 12/11/2020 0.00 gm/dL 05/24/2020 0.00 gm/dL 12/01/2019 0.00 gm/dL 05/20/2019 0.00 gm/dL 03/22/2019 0.00 gm/dL DIAGNOSIS: (C90.00) 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 (HCC) (primary encounter diagnosis) Plan: B2 MICROGLOBULIN, COMPLETE BLOOD COUNT AND DIFFERENTIAL, COMPREHENSIVE METABOLIC PANEL, LACTATE DEHYDROGENASE, PHOSPHORUS INORGANIC, PROTEIN ELECTROPHORESIS SERUM W/INTERP, MONOCLONAL PROTEIN, SERUM (BLOOD), URIC ACID, CALCIUM, IONIZED, KAPPA/COTA,FREE,SER (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 Drug use: No FAMILY HISTORY Problem Relation Age of Onset Cancer Mother Colon Cancer Father Colon Cancer Maternal Aunt I spent a total of 30 minutes on the date of service which included preparing to see the patient, [id number] patient care, completing clinical documentation, obtaining and/or reviewing separately obtained history, performing a medically appropriate examination, counseling and educating the patient/family/caregiver, ordering medications, tests, or procedures, independently interpreting results (not separately reported), communicating results to the patient/family/caregiver, and care coordination (not separately reported). Anibal Ash MD, CPE Hematology and Oncology Services Provided at: [place], [place] Scribe Attestation: This note was scribed by Stacie Schultz on August 19, 2024 under the direction and supervision of Dr. Anibal Ash. I attest that all of the information documented is correct to the best of my knowledge. Provider Attestation: I, Anibal Ash MD, attest that all information documented by the above scribe is correct, and was supervised by me and under my direction. CC: Danilo Clark MD [address] [facility] [id number] MD Frankie Manning MD documented in this encounterSouth[facility]05-29-2025 [facility] NoteS[facility] History of Present illness Narrative* Gurpreet Pang MD - 08/17/2024 10:43 AM EDT Images from the original note were not included. CC: Oncologic discussion HPI: Patient is doing well from biopsy below He has had no new changes or problems He is scheduled to see med and rad onc next week Physical exam: Unchanged, blister on skin with extraparotid extension of tumor SURGICAL PATHOLOGY: [id number] Order: [id number] Collected 07/21/2024 11:22 AM Status: Final result Test Result Released: Yes (seen) 0 Result Notes Component FINAL DIAGNOSIS A. Left parotid, mass, needle biopsy: - Mucoepidermoid carcinoma, see comment. at 1142 EDT Diagnosis Comment No high grade carcinoma features are identified on the biopsy, although grading is best evaluated on the resection specimen. This case was reviewed in intradepartmental consultation with Dr. Lionel Galaviz, who agrees with the diagnosis. Gross Description A. Parotid Gland, Left, Biopsy Received in formalin are multiple segments of cylindrical tissue aggregating to 2.8 x 0.2 x 0.1 cm,cardoso-red and of a soft and friable consistency. Totally submitted in one cassette. Gross examination performed at [facility], [address] [place] [address] [facility] July 21, 2024 7:23 PM Consultation requested by Dr. Anibal Ash for an opinion regarding left parotid mass. My final recommendations will be communicated back to the requesting physician by way of shared Medical record or letter to requesting physician via US mail. MEDICAL DECISION MAKING: Pt is a 84 year old male with a history of multiple myeloma, cutaneous skin cancer and CKD (stage III) who is presenting with left parotid mass. - IR guided core biopsy - Return to clinic after biopsy is complete to discuss results HPI: Rafat Bella is a 84 year old male with a PMH of multiple myeloma, cutaneous skin cancer and CKD (stage III) who is presenting with left parotid mass. The patient reports a 1.5 history of a left postauricular parotid tail mass. It has progressively grown since then. He underwent an FNA biopsy on 01/17/2023 that showed atypia of undertmined significance. He was previously offered surgery at at 05/13/2023, which he deferred in favor of observation due to other medical concerns at the time. The patient reports the mass has had an overlying blistered, which recently started seeping and the blister has occasionally broken. He reports the mass can be tender with pain radiating down his jaw. The patient has a history cutaneous skin cancers (extremities), but the patient and his are not sure whether it was BCC and SCC. He denies facial asymmetry, otalgia, dysphagia. No history of head and neck surgeries. Remote history of smoking (quit 50 years +). The patient is on warfarin for history of pulmonary embolism. PAST MEDICAL HISTORY PAST MEDICAL HISTORY Diagnosis Date Androgen deficiency Anemia Cholelithiasis Chronic kidney disease Stage 3 Diabetic peripheral neuropathy (HCC) Essential hypertension Hyperlipidemia Hypertrophy of prostate without urinary obstruction Malaise and fatigue Monoclonal gammopathy Morbid obesity (HCC) Pulmonary embolism (HCC) Tubular adenoma of colon Type 2 diabetes mellitus (HCC) PAST SURGICAL HISTORY PAST SURGICAL HISTORY Procedure Laterality Date APPENDECTOMY COLONOSCOPY 07/2013 DIAGNOSTIC ARTHROSCOPY SHOULDER +- SYNOVIAL BX Left TONSILLECTOMY HX CURRENT MEDICATIONS Current Outpatient Medications Medication Sig Dispense Refill DEXCOM G7 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 pioglitazone (ACTOS) 15 mg tablet Take 15 mg by mouth daily before breakfast. oxyCODONE IR (ROXICODONE) 5 mg immediate release tablet Take 2 tablets by mouth every 6 hours as needed for up to 30 days. 120 tablet 0 ACCU-CHEK ELIZABETH PLUS TEST STRP test strip BD INSULIN PEN NEEDLE UF 31 gauge x 5/16 ndle gabapentin (NEURONTIN) 300 mg capsule 1 GABAPENTIN ORAL Take by mouth. acyclovir (ZOVIRAX) 400 mg tablet TAKE ONE TABLET BY MOUTH TWICE DAILY 60 tablet 5 escitalopram oxalate (LEXAPRO) 20 mg tablet Take 1 tablet by mouth once daily. 30 tablet 1 predniSONE (DELTASONE) 5 mg tablet Take 1 tablet by mouth once daily. 30 tablet 0 VOLTAREN 1 % topical gel Apply 2 g to affected area four times daily. warfarin (COUMADIN) 5 mg tablet Take 5 mg by mouth once daily. Weds and Sat 2.5 mg senna-docusate (MEDI-NATURAL SENNA-STOOL) 8.6-50 mg per tablet Take 2 tablets by mouth twice daily.120 tablet 5 linaGLIPtin (TRADJENTA) 5 mg tab Take 5 [...] current facility-administered medications for this visit. ALLERGIES ALLERGIES Allergen Reactions Penicillins Swelling Swelling of the mouth. FAMILY HISTORY FAMILY HISTORY Problem Relation Age of Onset Cancer Mother Colon Cancer Father Colon Cancer Maternal Aunt SOCIAL Smoking: former smoker Alcohol: none Review of Systems - Negative except as stated in HPI above. REVIEW OF RADIOLOGICAL FILMS AND RECORDS: 05/28/2024 CT NECK IMPRESSION: Slight interval increase in size of left parotid mass since 08/29/2023 worrisome for primary neoplasm. Otherwise stable appearance of the soft tissues of the neck. PHYSICAL EXAM: Vitals - There were no vitals taken for this visit. Constitutional - General Appearance: well developed, well nourished, without obvious deformities Communication: speaks with a normal voice without hoarseness Head & Face - Overall: no obvious scars, lesions or masses Parotid and submandibular glands: nontender, 3cm left postauricular parotid tail mass with overlying blister Facial strength: symmetric, HB 1/6 bilaterally Ear, Nose, Mouth & Throat - Ears: EAC patent without significant cerumen, TM intact Nasal exam: mucosa is pink, septum is midline, visible turbinates are normal on anterior rhinoscopy Mastication: teeth appear age appropriate Oral Cavity and oropharynx: mucosa, hard and soft palates, tongue, tonsil area, posterior pharyngeal wall, lips and gums are without lesions Neck: appears symmetric, and on palpation is without masses or lymphadenopathy Thyroid: no asymmetry, thyromegaly, or thyroid nodules on palpation Cranial Nerves: II: Pupillary reflexes normal III, IV, : EOM normal V: 1,2,3: normal sensation VII: Normal strength in all divisions IX, X: Normal voice, palatal elevation and sensation XI: Shoulder strength normal XII: Tongue mobility normal Assessment/Plan: Mucoepidermoid cancer of left parotid Conveyed to patient and family that they are usually treated with surgery and possible adjuvant treatment (xrt) He has significant co-morbidities that would make surgery very high risk Risks , benefits, alternatives, personnel discussed with patient and family All questions answered to their satisfaction Saurabh Pang MD * Farshad Sena OCCA - 08/13/2024 1:48 PM EDT Tobacco Use: Types: Cigars Was smoking cessation packet given? N/A - Patient is a non-smoker or quit >1 year ago. Was a referral initiated?N/A Patient is a non-smoker documented in this encounterSouth[facility]25 [facility] Telephone encounter Note* Telephone Encounter - Lashonda Butcher RN - 08/06/2024 1:18 PM EDT Called back at this time and she states that she received a call to start scheduling for appointments that she had no idea what they were talking about. She states that she has no plan of care and biopsy results and does not know what is going on. Explained to patient that per the last office visit it looks like Dr Pang wanted the patient to make an appointment for follow up and discuss results. Offered her next Sunday 08/13 at 2pm. She accepted appointment at this time. [facility] Miscellaneous Notes* Telephone Encounter - Lashonda Butcher RN - 08/06/2024 1:18 PM EDT Called back at this time and she states that she received a call to start scheduling for appointments that she had no idea what they were talking about. She states that she has no plan of care and biopsy results and does not know what is going on. Explained to patient that per the last office visit it looks like Dr Pang wanted the patient to make an appointment for follow up and discuss results. Offered her next Sunday 08/13 at 2pm. She accepted appointment at this time. * Telephone Encounter - Tabitha Downs - 08/06/2024 1:07 PM EDT Pt's called back today frustrated that no one has called back to review biopsy results. Pt is on the line and requesting to speak to someone as soon as possible. Will someone be able to contact this pt? [phone] * Telephone Encounter - Tabitha Downs - 08/02/2024 11:46 AM EDT Person Calling:Shira Reason for Call:Would like a callback to review the pt's biopsy results. Pt Phone #: [phone] Tabitha Downs documented in this encounterSouth[facility] Center05-16-2025 Telephone encounter Note * Telephone Encounter - Tabitha Downs - 08/06/2024 1:07 PM EDT Pt's called back today frustrated that no one has called back to review biopsy results. Pt is on the line and requesting to speak to someone as soon as possible. Will someone be able to contact this pt? [phone] [facility] Telephone encounter Note* Telephone Encounter - Tabitha Downs - 08/02/2024 11:46 AM EDT Person Calling:Shira Reason for Call:Would like a callback to review the pt's biopsy results. Pt Phone #: [phone] Tabitha Himanshu [facility]05-12-[facility] Telephone encounter Note* Telephone Encounter - Rafaela Rodriguez RN - 08/02/2024 10:59 AM EDT Pt calling for pathology results. Per Dr Pang office note prior to bx, pt was to return to office to discuss results/plan of care. They are not scheduled and have not heard from anyone regarding results. Pt calling Dr Pang office. She will call our office back, if needed. Pt is scheduled for lab/Pall med 08/24/24 and Wan 09/07/24. Wan: MAHIN Rodriguez RN [facility]05-12-2025 Miscellaneous Notes* Telephone Encounter - Rafaela Rodriguez RN - 08/02/2024 10:59 AM EDT Pt calling for pathology results. Per Dr Pang office note prior to bx, pt was to return to office to discuss results/plan of care. They are not scheduled and have not heard from anyone regarding results. Pt calling Dr Pang office. She will call our office back, if needed. Pt is scheduled for lab/Pall med 08/24/24 and Wan 09/07/24. Wan: MAHIN Rodriguez RN documented [facility] Telephone encounter Note * Telephone Encounter - Denae Grider RN - 07/30/2024 2:47 PM EDT Palliative Medicine Referral Assessment Referral Accepted: Yes, Location: [place]. 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 Established with Inpatient Pall Med team: no Reason for consult: introduction to services, goals of care, cancer related pain, nausea/vomiting, and symptom support Clinic location: Bill Grider RN July 30, 2024 [facility]05-09-2025 Miscellaneous Notes* Telephone Encounter - Denae Grider RN - 07/30/2024 2:47 PM EDT Palliative Medicine Referral Assessment Referral Accepted: Yes, Location: [place]. 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 Established with Inpatient Pall Med team: no Reason for consult: introduction to services, goals of care, cancer related pain, nausea/vomiting, and symptom support Clinic location: Bill Grider RN July 30, 2024 documented in this [facility] Telephone encounter Note * Telephone Encounter - Silvia Lehman RN - 07/28/2024 11:14 AM EDT Message per Dr Mendoza: I need to see him back in clinic -- also appt with palliative, med onc and rad onc julian wiley [facility]05-07-2025 Miscellaneous Notes* Telephone Encounter - Silvia Lehman, RN - 07/28/2024 11:14 AM EDT Message per Dr Mendoza: I need to see him back in clinic -- also appt with palliative, med onc and rad onc thanks saurabh documented in this encounterSouth[facility] Evaluation note* Diagnosis Onset Date Resolution Status Admit Date Back pain of thoracolumbar region acuteApril 2024 1:13pmElevated cholesterolacuteApril 2024 1:13pmMass of left parotid glandacuteApril 2024 1:13pmMedicare annual wellness visit, subsequentacuteApril 2024 1:13pmType 2 diabetes mellitus with diabetic polyneuropathyacuteApril 2024 1:13pmType 2 diabetes mellitus with hyperglycemiaacuteApril 2024 1:13pmHTN (hypertension)chronicApril 2024 1:13pmMultiple myelomachronicApril 2024 1:13pm [facility] Work Phone: 1(972) 593-674504-23-2025 Telephone encounter Note* Telephone Encounter - Garth Mitchell - 07/14/2024 12:27 PM EDT Spoke with patient's (Shira) and scheduled BX on 07/21/24 [facility]04-23-2025 Miscellaneous Notes* Telephone Encounter - Garth Mitchell - 07/14/2024 12:27 PM EDT Spoke with patient's (Shira) and scheduled BX on 07/21/24 * Telephone Encounter - Cal Elizabeth MD - 07/12/2024 3:42 PM EDT RADIOLOGIST REQUEST / APPROVAL FORM STAFF RADIOLOGIST: Dr. Mine Huff PROCEDURE TO BE DONE UNDER: US PROCEDURE REQUESTED: radiologist discretion PROCEDURE: Approved TIME SLOT NEEDED: 1 Hour NOTES: left parotid mass, hold warfarin per protocol prior to procedure SPECIAL LABS/ PROCESSING: n/a Pre-procedure labs: CBC: ordered INR: ordered COVID: not needed SIR Bleeding risk category for this procedure: intermediate-high risk. Reference from [facility] Shot Examiner: [email or web address] STAFF SIGNATURE: Cal Elizabeth MD DATE: July 12, 2024 TIME: 3:42 PM * Telephone Encounter - Keira Owens LPN - 07/08/2024 3:16 PM EDT BX. 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 pioglitazone (ACTOS) 15 mg tablet Take 15 mg by mouth daily before breakfast. (Patient not taking: Reported on 07/08/2024) oxyCODONE IR (ROXICODONE) 5 mg immediate release tablet Take 2 tablets by mouth every 6 hours as needed for up to 30 days. ACCU-CHEK ELIZABETH PLUS TEST STRP test strip BD INSULIN PEN NEEDLE UF 31 gauge x 08/06 ndle gabapentin (NEURONTIN) 300 mg capsule GABAPENTIN ORAL Take by mouth. acyclovir (ZOVIRAX) 400 mg tablet TAKE ONE TABLET BY MOUTH TWICE DAILY (Patient not taking: Reported on 07/08/2024) escitalopram oxalate (LEXAPRO) 20 mg tablet Take 1 tablet by mouth once daily. predniSONE (DELTASONE) 5 mg tablet Take 1 tablet by mouth once daily. VOLTAREN 1 % topical gel Apply 2 g to affected area four times daily. warfarin (COUMADIN) 5 mg tablet Take 5 mg by mouth once daily. Weds and Sat 2.5 mg senna-docusate (MEDI-NATURAL SENNA-STOOL) 8.6-50 mg per tablet Take 2 tablets by mouth twice daily. linaGLIPtin (TRADJENTA) 5 mg tab Take 5 mg by mouth once daily. (Patient not taking: Reported on 07/08/2024) ondansetron (ZOFRAN) 4 mg tablet Take 4 mg by mouth every 8 hours as needed. pantoprazole DR (PROTONIX) 40 mg tablet Take 40 mg by mouth once daily. (Patient not taking: Reported on 07/08/2024) tamsulosin ER (FLOMAX) 0.4 mg cp24 Take [...] Reactions Penicillins Swelling Swelling of the mouth. FILMS SENT TO WORKSTATION: GUIDELINES FOR HOLDING ANTI-PLATELET AND ANTI- COAGULATION THERAPY: Hold Coumadin for 5 days NURSE SIGNATURE: Keira Owens LPN DATE: July 08, 2024 TIME: 3:16 PM * Telephone Encounter - Silvia Lehman RN - 07/08/2024 2:48 PM EDT STAFF-INITIATED RADIOLOGY BIOPSY / ASPIRATION / DRAIN REQUEST FORM Date: July 08, 2024 Time: 2:49 PM PATIENT CONTACT INFORMATION: Best way to reach patient SCHEDULING: [facility] (Specific requests must be greater than 10 business days from the date of request) RADIOLOGY SERVICE GROUP (Abdominal / Thoracic / MSK / Neuro): Left Parotid Mass SPECIFICS OF THE REQUEST (Please be as detailed as possible): BIOPSY of MASS - Left Parotid Mass / Biopsy Type: Core Biopsy SPECIAL REQUESTS: TISSUE SAMPLE, LABWORK: N/A MEDICAL DIAGNOSIS: Left Parotid Mass (i.e. Known primary cancer or suspected diagnosis) IMAGING STUDY AND DATE THAT IS THE BASIS OF THE REQUEST: CT Date: 05/28/2024 (Note: Requests for random organ biopsies, specifically liver and kidney random biopsies do not need imaging.) IMAGING: [facility] (If the imaging was obtained outside the [facility] system, PLEASE upload for review prior to approval.) Note to all persons requesting biopsies: All biopsy requests will be scheduled as quickly as possible, based on the clinical urgency, availability of appointment times, the need to hold anti-thrombolytic therapy (aspirin and other blood thinners) and the patient s schedule, including the need for an available front loader residential driver. If a percutaneous biopsy or drainage is not felt to be safe or an alternative method for establishing a diagnosis is possible, this will be discussed directly with the requesting physician. documented in this encounterSouth[facility]04[facility] Telephone encounter Note * Telephone Encounter - Cal Elizabeth MD - 07/12/2024 3:42 PM EDT RADIOLOGIST REQUEST / APPROVAL FORM STAFF RADIOLOGIST: Dr. Mine Huff PROCEDURE TO BE DONE UNDER: US PROCEDURE REQUESTED: radiologist discretion PROCEDURE: Approved TIME SLOT NEEDED: 1 Hour NOTES: left parotid mass, hold warfarin per protocol prior to procedure SPECIAL LABS/ PROCESSING: n/a Pre-procedure labs: CBC: ordered INR: ordered COVID: not needed SIR Bleeding risk category for this procedure: intermediate-high risk. Reference from [facility] Shot Examiner: [email or web address] STAFF SIGNATURE: Cal Elizabeth MD DATE: July 12, 2024 TIME: 3:42 PM [facility]04-17-2025 Telephone encounter Note* Telephone Encounter - Keira Owens LPN - 07/08/2024 3:16 PM EDT BX. 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 pioglitazone (ACTOS) 15 mg tablet Take 15 mg by mouth daily before breakfast. (Patient not taking: Reported on 07/08/2024) oxyCODONE IR (ROXICODONE) 5 mg immediate release tablet Take 2 tablets by mouth every 6 hours as needed for up to 30 days. ACCU-CHEK ELIZABETH PLUS TEST STRP test strip BD INSULIN PEN NEEDLE UF 31 gauge x /16 ndle gabapentin (NEURONTIN) 300 mg capsule GABAPENTIN ORAL Take by mouth. acyclovir (ZOVIRAX) 400 mg tablet TAKE ONE TABLET BY MOUTH TWICE DAILY (Patient not taking: Reported on 07/08/2024) escitalopram oxalate (LEXAPRO) 20 mg tablet Take 1 tablet by mouth once daily. predniSONE (DELTASONE) 5 mg tablet Take 1 tablet by mouth once daily. VOLTAREN 1 % topical gel Apply 2 g to affected area four times daily. warfarin (COUMADIN) 5 mg tablet Take 5 mg by mouth once daily. Weds and Sat 2.5 mg senna-docusate (MEDI-NATURAL SENNA-STOOL) 8.6-50 mg per tablet Take 2 tablets by mouth twice daily. linaGLIPtin (TRADJENTA) 5 mg tab Take 5 mg by mouth once daily. (Patient not taking: Reported on 07/08/2024) ondansetron (ZOFRAN) 4 mg tablet Take 4 mg by mouth every 8 hours as needed. pantoprazole DR (PROTONIX) 40 mg tablet Take 40 mg by mouth once daily. (Patient not taking: Reported on 07/08/2024) tamsulosin ER (FLOMAX) 0.4 mg cp24 Take [...] Reactions Penicillins Swelling Swelling of the mouth. FILMS SENT TO WORKSTATION: GUIDELINES FOR HOLDING ANTI-PLATELET AND ANTI- COAGULATION THERAPY: Hold Coumadin for 5 days NURSE SIGNATURE: Keira Owens LPN DATE: July 08, 2024 TIME: 3:16 PM [facility]04-17-2025 Telephone encounter Note* Telephone Encounter - Silvia Lehman RN - 07/08/2024 2:48 PM EDT STAFF-INITIATED RADIOLOGY BIOPSY / ASPIRATION / DRAIN REQUEST FORM Date: July 08, 2024 Time: 2:49 PM PATIENT CONTACT INFORMATION: Best way to reach patient SCHEDULING: [facility] (Specific requests must be greater than 10 business days from the date of request) RADIOLOGY SERVICE GROUP (Abdominal / Thoracic / MSK / Neuro): Left Parotid Mass SPECIFICS OF THE REQUEST (Please be as detailed as possible): BIOPSY of MASS - Left Parotid Mass / Biopsy Type: Core Biopsy SPECIAL REQUESTS: TISSUE SAMPLE, LABWORK: N/A MEDICAL DIAGNOSIS: Left Parotid Mass (i.e. Known primary cancer or suspected diagnosis) IMAGING STUDY AND DATE THAT IS THE BASIS OF THE REQUEST: CT Date: 05/28/2024 (Note: Requests for random organ biopsies, specifically liver and kidney random biopsies do not need imaging.) IMAGING: [facility] (If the imaging was obtained outside the [facility] system, PLEASE upload for review prior to approval.) Note to all persons requesting biopsies: All biopsy requests will be scheduled as quickly as possible, based on the clinical urgency, availability of appointment times, the need to hold anti-thrombolytic therapy (aspirin and other blood thinners) and the patient s schedule, including the need for an available front loader residential driver. If a percutaneous biopsy or drainage is not felt to be safe or an alternative method for establishing a diagnosis is possible, this will be discussed directly with the requesting physician. [facility]04[facility]17[facility] History of Present illness Narrative* Olivia Rios OCCA - 07/08/2024 2:11 PM EDT Tobacco Use: Types: Cigars Was smoking cessation packet given? N/A - Patient is a non-smoker or quit >1 year ago. Was a referral initiated?N/A Patient is a non-smoker * Gurpreet Pang MD - 07/08/2024 2:02 PM EDT Rafat Bella [id number] July 08, 2024 [place] New patient Consultation requested by Dr. Anibal Ash for an opinion regarding left parotid mass. My final recommendations will be communicated back to the requesting physician by way of shared Medical record or letter to requesting physician via US mail. MEDICAL DECISION MAKING: Pt is a 84 year old male with a history of multiple myeloma, cutaneous skin cancer and CKD (stage III) who is presenting with left parotid mass. - IR guided core biopsy - Return to clinic after biopsy is complete to discuss results HPI: Rafat Bella is a 84 year old male with a PMH of multiple myeloma, cutaneous skin cancer and CKD (stage III) who is presenting with left parotid mass. The patient reports a 1.5 history of a left postauricular parotid tail mass. It has progressively grown since then. He underwent an FNA biopsy on 01/17/2023 that showed atypia of undertmined significance. He was previously offered surgery at at 05/13/2023, which he deferred in favor of observation due to other medical concerns at the time. The patient reports the mass has had an overlying blistered, which recently started seeping and the blister has occasionally broken. He reports the mass can be tender with pain radiating down his jaw. The patient has a history cutaneous skin cancers (extremities), but the patient and his are not sure whether it was BCC and SCC. He denies facial asymmetry, otalgia, dysphagia. No history of head and neck surgeries. Remote history of smoking (quit 50 years +). The patient is on warfarin for history of pulmonary embolism. 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 pioglitazone (ACTOS) 15 mg tablet Take 15 mg by mouth daily before breakfast. oxyCODONE IR (ROXICODONE) 5 mg immediate release tablet Take 2 tablets by mouth every 6 hours as needed for up to 30 days. 120 tablet 0 ACCU-CHEK ELIZABETH PLUS TEST STRP test strip BD INSULIN PEN NEEDLE UF 31 gauge x 5/16 ndle gabapentin (NEURONTIN) 300 mg capsule 1 GABAPENTIN ORAL Take by mouth. acyclovir (ZOVIRAX) 400 mg tablet TAKE ONE TABLET BY MOUTH TWICE DAILY 60 tablet 5 escitalopram oxalate (LEXAPRO) 20 mg tablet Take 1 tablet by mouth once daily. 30 tablet 1 predniSONE (DELTASONE) 5 mg tablet Take 1 tablet by mouth once daily. 30 tablet 0 VOLTAREN 1 % topical gel Apply 2 g to affected area four times daily. warfarin (COUMADIN) 5 mg tablet Take 5 mg by mouth once daily. Weds and Sat 2.5 mg senna-docusate (MEDI-NATURAL SENNA-STOOL) 8.6-50 mg per tablet Take 2 tablets by mouth twice daily.120 tablet 5 linaGLIPtin (TRADJENTA) 5 mg tab Take 5 [...] Reactions Penicillins Swelling Swelling of the mouth. FAMILY HISTORY Problem Relation Age of Onset Cancer Mother Colon Cancer Father Colon Cancer Maternal Aunt SOCIAL Smoking: former smoker Alcohol: none Review of Systems - Negative except as stated in HPI above. REVIEW OF RADIOLOGICAL FILMS AND RECORDS: 05/28/2024 CT NECK IMPRESSION: Slight interval increase in size of left parotid mass since 08/29/2023 worrisome for primary neoplasm. Otherwise stable appearance of the soft tissues of the neck. PHYSICAL EXAM: Vitals - There were no vitals taken for this visit. Constitutional - General Appearance: well developed, well nourished, without obvious deformities Communication: speaks with a normal voice without hoarseness Head & Face - Overall: no obvious scars, lesions or masses Parotid and submandibular glands: nontender, 3cm left postauricular parotid tail mass with overlying blister Facial strength: symmetric, HB 1/6 bilaterally Ear, Nose, Mouth & Throat - Ears: EAC patent without significant cerumen, TM intact Nasal exam: mucosa is pink, septum is midline, visible turbinates are normal on anterior rhinoscopy Mastication: teeth appear age appropriate Oral Cavity and oropharynx: mucosa, hard and soft palates, tongue, tonsil area, posterior pharyngeal wall, lips and gums are without lesions Neck: appears symmetric, and on palpation is without masses or lymphadenopathy Thyroid: no asymmetry, thyromegaly, or thyroid nodules on palpation Cranial Nerves: II: Pupillary reflexes normal III, IV, : EOM normal V: 1,2,3: normal sensation VII: Normal strength in all divisions IX, X: Normal voice, palatal elevation and sensation XI: Shoulder strength normal XII: Tongue mobility normal Cinda Flores MD for the service of Gurpreet Pang MD July 09, 2024 I participated in the history and physical exam of Rafat Bella. I discussed the management of Rafat Bella with the resident. I reviewed the resident's note and agree with the documented findings and plan of care. Gurpreet Pang MD documented in this encounter[facility]04-[facility]2025 [facility] Telephone encounter Note* Telephone Encounter - Abbie Eisenberg RN - 06/02/2024 1:32 PM EDT Thanks Ann [facility]03-12-2025 Miscellaneous Notes* Telephone Encounter - Abbie Eisenberg RN - 06/02/2024 1:32 PM EDT Thanks Ann * Telephone Encounter - Ann Orta - 06/02/2024 1:22 PM EDT Patient is scheduled and confirmed with [facility] July 08 at 2:15. Labs August 25 at 11 and Follow up September 01. Confirmed dates and time with . Also mailed appt reminder with addresses for them., * Telephone Encounter - Abbie Eisenberg RN - 06/02/2024 10:54 AM EDT Pt and notified and all questions answered. Pt states they would prefer to go to [facility],Dr. Blas is agreeable to that plan. PSS: Please schedule per DR. BLAS's previous message. Thanks Abbie Eisenberg RN * Telephone Encounter - Anibal Ash MD - 06/02/2024 10:41 AM EDT Needs ENT consult. For parotid mass- Then needs labs in 12 weeks see me in 13 weeks. For myeloma. * Telephone Encounter - Abbie Eisenberg RN - 05/31/2024 8:25 AM EDT WAN: CT of neck is resulted for your review and to decide on plan of care per your visit disposition. Pt has no follow up. Please review and advise. Thanks. Abbie Eisenberg RN * Telephone Encounter - Lori Christine - 05/17/2024 3:30 PM EST Rafat is scheduled for a Ct neck on 05-28-24. Dr Blas is requesting triage nurse to call results and determine plan. Thank you documented in this encounterSouth[facility]03-[facility]-2025 Telephone encounter Note * Telephone Encounter - Ann Orta - 06/02/2024 1:22 PM EDT Patient is scheduled and confirmed with [facility] July 08 at 2:15. Labs August 25 at 11 and Follow up September 01. Confirmed dates and time with . Also mailed appt reminder with addresses for them., [facility]03-12-20[facility] Telephone encounter Note* Telephone Encounter - Abbie Eisenberg RN - 06/02/2024 10:54 AM EDT Pt and notified and all questions answered. Pt states they would prefer to go to [facility],Dr. Blas is agreeable to that plan. PSS: Please schedule per DR. BLAS's previous message. Thanks Abbie Eisenberg RN [facility]03-12-2025 Telephone encounter Note* Telephone Encounter - Anibal Ash MD - 06/02/2024 10:41 AM EDT Needs ENT consult. For parotid mass- Then needs labs in 12 weeks see me in 13 weeks. For myeloma. [facility]03-10-2025 Telephone encounter Note* Telephone Encounter - Abbie Eisenberg RN - 05/31/2024 8:25 AM EDT WAN: CT of neck is resulted for your review and to decide on plan of care per your visit disposition. Pt has no follow up. Please review and advise. Thanks. Abbie Eisenberg RN [facility]03-07-2025 History of Present illness Narrative* Litzy Kunz RT(R) - 05/28/2024 2:15 PM EST Radiology Service Progress Note PATIENT NAME: Rafat Bella DATE OF SERVICE: May 28, 2024 TIME: 2:07 PM PATIENT IDENTITY VERIFICATION COMPLETED USING TWO (2) IDENTIFIERS: Name and Date of confirmedby patient verbally. FALL SCREENING: Has the patient had 2 falls in the last year or 1 fall with injury or currently using an Ambulatory Assistive Device (Walker, Cane, Wheelchair, Crutches, etc.)? No PATIENT GENDER DATA: Assigned male at PATIENT RELEVANT IMPLANT DATA REVIEWED: Not Applicable PATIENT PRESENTS WITH AN IMPLANTABLE OR ATTACHED INTERIOR DESIGNER: No RADIOLOGY DEPARTMENT: CT; Exam(s) Completed: Neck PERIPHERAL IV DATA: Site assessment: Clean,Dry and Intact, Site disposition Discontinued SIGNED BY: RT Joon(R) May 28, 2024 2:07 PM * Pratima Dang RN - 05/28/2024 2:15 PM EST Radiology Service Progress Note DATE OF SERVICE: May 28, 2024 TIME: 2:15 PM PATIENT WEIGHT: 254LBS PATIENT IDENTITY VERIFICATION COMPLETED USING TWO (2) STANDARD IDENTIFIERS: Name and Date of confirmed by patient verbally. FALL SCREENING: Has the patient had 2 falls in the last year or 1 fall with injury or currently using an Ambulatory Assistive Device (Walker, Cane, Wheelchair, Crutches, etc.)? Yes, Patient High Riskfor Falls What interventions were put in place to prevent falls during this visit? Instructed Patient to Callfor Help if Needed, Offered Assistance with Transfers/Clothing, and Instructed Patient to Remain Seated (Not on Exam Table) Until Exam PATIENT GENDER DATA: Assigned male at ALLERGIES: Reviewed and unchanged CONTRAST ALLERGY: No EXAM: CT -CONTRAST INDUCED NEPHROPATHY RISK FACTORS: Patient age > 60 years and Multiple Myeloma CREATININE: Creatinine Date Value Ref Range Status 05/10/2024 1.34 (H) 0.73 - 1.22 mg/dL Final 02/02/2024 1.28 (H) 0.73 - 1.22 mg/dL Final 11/03/2023 1.41 (H) 0.73 - 1.22 mg/dL Final Estimated Glomerular Filtration Rate Date Value Ref Range Status 05/10/2024 53 (L) >=60 mL/min/1.73m Final Comment: Estimated Glomerular Filtration Rate (eGFR) is calculated using the 2020 CKD-EPI creatinine equation. This equation utilizes serum creatinine, sex, and age as parameters. The creatinine assay has traceable calibration to isotope dilution- mass spectrometry. Refer to KDIGO guidelines for clinical interpretation. In patients with unstable renal function, e.g. those with acute kidney injury, the eGFRmay not accurately reflect actual GFR. eGFR- Date Value Ref Range Status 12/11/2020 >60 Final P.O.C.T. RESULTS: POC done: Yes, See Lab Tab May 28, 2024 TREATMENT: N/A IV SITE: Ambulatory: A peripheral IV was started in the Right antecubital site with a Angio cath: 20 gauge. IV SITE APPEARANCE: Clean,Dry and Intact SIGNATURE: Pratima Dang RN PATIENT NAME: Rafat Bella DATE: May 28, 2024 TIME: 2:15 PM documented in this encounterSouth[facility]03-[facility]-20[facility]02-[facility]-2025 Telephone encounter Note* Telephone Encounter - Lori Christine - 05/17/2024 3:30 PM EST Rafat is scheduled for a Ct neck on 05-28-24. Dr Blas is requesting triage nurse to call results and determine plan. Thank you [facility]02-24-2025 Instructions* Patient Instructions* Stacie Schultz - 05/17/2024 3:07 PM EST Obtain images and reports of CT & US of the Neck & Head from [facility] from 12/2022-02/2023 CT Neck when available Triage to call results and determine plan documented in this encounterSouthview Medical Center02-24-2025 History of Present illness Narrative* Anibal Ash MD - 05/17/2024 2:40 PM EST Images from the original note were not included. NAME: Rafat Bella CLINIC NO.: [id number] DATE OF SERVICE: May 17, 2024 (Mihir) Some elements in this clinic note that are critical to medical decision making have been carefully reviewed and included from a prior clinic note dated: February 09, 2024 (Praful) Referring Provider: Danilo Clark CC: Multiple myeloma ASSESSMENT: 84 year old gentleman with multiple myeloma currently [...] positive in his one large humerus lesion. M-spike had been 0 abut now is starting to rise slowly although no additional lesions noted on PET/CT and k/L ratio is fdstable. Bone prophylaxis Previously receieved zolendronic acid. PLAN: Obtain images and reports of CT & US of the Neck & Head from [facility] from 12/2022-02/2023 CT Neck when available Triage to call results and determine plan ___ HPI: CASE HISTORY: Reverse Chronological Order 05/10/2024 - M-protein concentration: 0.60 02/02/2024 - CBC: 6.18 > 13.8 / 40.7 < 181, eGFR: 56, Creatinine: 1.28 [place]: 109.2, Lambda: 45.1, K/L Ratio: 2.42 IgA: 258, Ig, IgM: 316 M-protein concentration: 0.51 11/03/2023 - M-protein: 0.42 08/29/2023 - PET/CT: No FDG avid neoplastic process. 08/04/2023 - M-protein: 0.41 multiple previous values of 0.00. 02/26/2023 - US Soft Tissue Head/Neck: Heterogeneous, avascular, suspicious appearing mass within left parotid gland region; not appreciably changed compared to 01/03/2023. 02/07/2023 - CT Soft Tissue Neck: Along the posterior inferior aspect of the left parotid gland there is a heterogeneous enhancing rounded lesion with areas of hypoenhancement measuring approximately 2 x 2 by 1.7 cm in AP, TV and CC dimensions. Differential diagnosis include but not limited to primary parotid neoplasm such as pleomo rphic adenoma, Warthin's tumor versus enlarged intraparotid lymph node. 01/17/2023 - Left parotid biopsy: at [facility] Atypia of undetermined significance 2017 - Completed radiotherapy MRI thoracic spine - [...] requiring kyphoplasty shortly after diagnosis. Updated Visit, May 17, 2024: Rafat returns with his , Karly, for a follow up. He has concerns regarding his left parotid/posterior auricular mass. The mass has grown over the past year, is tender and draining periodically. He was scheduled for surgery last year at although cancelled out of concern for a lengthy recovery. He denies any changes to his hearing. Will order imaging for comparison. M-protein and K/L ratio continue slowly rising. CBC is normal overall. Left posterior auricular mass: Updated Visit, February 09, 2024: Rafat returns today with Karly for a follow-up. Today his M spike is relatively stable it has increased slightly to 0.51. His K/L ratio is also stable at 2.42. CBC is normal. We will continue to monitor his M-protein. Patient states his back pain has improved and he is doing better. He is having some right hand pain that has been ongoing not getting any worse. His appetite is good. Energy fluctuates. No bowel or bladder issues. Updated Visit, November 10, 2023: Rafat returns with Karly for a follow up. PET/CT in August revealed no FDG avid neoplastic process. M-spike is relatively stable compared to July's value - 0.42 on 11/02. K/L ratio is stable as well. CBCis normal. If M-protein continues to rise, will repeat PET/CT. Updated Visit, August 11, 2023: Rafat returns with Karly for a follow up. M-protein is up to 0.41 as of last week - ordered PET/CT.Uncertain whether or not this M-spike reflects a resurgence of his myeloma or not. He complains of bilateral flank pain, different from his chronic spinal pain. But in a similar areaas his previous kyphoplasty. He has loose stools and some difficulty urinating, according to Karly. He has prescribed oxycodone but he does not take often as it causes constipation - although this may be beneficial as he has been having diarrhea. Updated Visit, February 10, 2023: Rafat returns today for follow up accompanied by his Karly, with concerns over a spot behind his [...] Doing well. No complaints but is fatigued. Karly is with as usual. Reviewed labs. No evidence of progressive disease. Updated Visit, February 11, 2022: Telephone only for 5 minutes Called Ryanne as requested. Reviewed labs from 02/07/2022. 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 He has no complaints. 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 Still off treatment and still has no evidence of disease. Overall is doing well. M spike remain undetectable and all other labs are stable. Karly is with him. Updated Visit, December 18, [...] clot in January 2016. He went to [facility] for fatigue and diagnosed with a [...] Revlimid. Had hospitalization in January 2017 to [facility] and had a kyphoplasty for compression fracture. [...] he remains on as of October 2017. __ REVIEW OF SYSTEMS Per HPI and otherwise negative by full review of organ systems. ECOG PERFORMANCE STATUS: 2 PHYSICAL EXAMINATION: Vitals: BP 146/72 Pulse 72 Temp (Src) 97.4 (Temporal) Resp 20 Ht 5' 9.528 (1.77m) Wt 254lb 6.6 oz (115.4kg) SpO2 96% BMI 37.00 kg/(m^2). Body surface area is 2.38 meters squared. Exam limited to gross visualization [...] skin without rash, lesions, wounds or petechiae. Image of left posterior auricular mass taken on 05/17/2024 is pasted above in HPI. ALLERGIES: ALLERGIES Allergen Reactions Penicillins Swelling Swelling of the mouth. 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 pioglitazone (ACTOS) 15 mg tablet Take 15 mg by mouth daily before breakfast. ACCU-CHEK ELIZABETH PLUS TEST STRP test strip BD INSULIN PEN NEEDLE UF 31 gauge x 5/16 ndle gabapentin (NEURONTIN) 300 mg capsule acyclovir (ZOVIRAX) 400 mg tablet TAKE ONE [...] once daily. Weds and Sat 2.5 mg senna-docusate (MEDI-NATURAL SENNA-STOOL) 8.6-50 mg per tablet [...] Inject 10 Units subcutaneously daily at bedtime. iv contrast (will be provided with radiology test) Inject 1 Each intravenously one time only for [address] Neck W IVCON No IV access, insert saline lock prior to the sedation, infusion, injection for imaging exam. Discontinue saline lock post exam. If Pt. has a central line or IVAD, may access foradministration according to line specific nursing protocol. Once exam is complete flush line and de-access according to line specific nursing protocol in the CT contrast administration guidelines link. oxyCODONE IR (ROXICODONE) 5 mg immediate release tablet Take 2 tablets by mouth every 6 hours as needed for up to 30 days. GABAPENTIN ORAL Take by mouth. glimepiride (AMARYL) 1 mg tablet Take 1 mg by mouth daily with breakfast. (Patient not taking: Reported on 05/17/2024) LABORATORY VALUES: WBC (k/uL) Date Value 05/10/2024 7.84 RBC (m/uL) Date Value 05/10/2024 4.46 Hemoglobin (g/dL) Date Value 05/10/2024 13.7 Hematocrit (%) Date Value 05/10/2024 41.9 MCV (fL) Date Value 05/10/2024 93.9 MCH (pg) Date Value 05/10/2024 30.7 MCHC (g/dL) Date Value 05/10/2024 32.7 RDW-CV (%) Date Value 05/10/2024 13.5 Platelet Count (k/uL) Date Value 05/10/2024 232 MPV (fL) Date Value 05/10/2024 9.7 Glucose (mg/dL) Date Value 05/10/2024 237 (H) BUN (mg/dL) Date Value 05/10/2024 17 Creatinine (mg/dL) Date Value 05/10/2024 1.34 (H) Sodium (mmol/L) Date Value 05/10/2024 137 Potassium (mmol/L) Date Value 05/10/2024 4.2 Chloride (mmol/L) Date Value 05/10/2024 102 CO2 (mmol/L) Date Value 05/10/2024 26 Protein, Total (g/dL) Date Value 05/10/2024 7.0 05/10/2024 7.0 Albumin (g/dL) Date Value 05/10/2024 3.9 Calcium, Total (mg/dL) Date Value 05/10/2024 9.5 Alkaline Phosphatase (U/L) Date Value 05/10/2024 96 Bilirubin, Total (mg/dL) Date Value 05/10/2024 0.3 AST (U/L) Date Value 05/10/2024 21 ALT (U/L) Date Value 05/10/2024 16 M-Protein Concentration Date Value 05/10/2024 0.60 g/dL 02/02/2024 0.51 g/dL 11/03/2023 0.42 g/dL 08/04/2023 0.41 g/dL 02/03/2023 0.00 g/dL 12/11/2020 0.00 gm/dL 05/24/2020 0.00 gm/dL 12/01/2019 0.00 gm/dL 05/20/2019 0.00 gm/dL 03/22/2019 0.00 gm/dL DIAGNOSIS: (H93.8X2) Mass of ear auricle, left (primary encounter diagnosis) Plan: CT NECK SOFT TISSUE W IVCON, iv contrast (will be provided with radiology test) (C90.00) 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 (HCC) Plan: CT NECK SOFT TISSUE W IVCON, iv contrast (will be provided with radiology test) (D69.6) Thrombocytopenia (HCC) Plan: CT NECK SOFT TISSUE W IVCON, iv contrast (will be provided with radiology test) (Z79.01) Chronic anticoagulation Plan: CT NECK SOFT TISSUE W IVCON, iv contrast (will be provided with radiology test) (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 Drug use: No FAMILY HISTORY Problem Relation Age of Onset Cancer Mother Colon Cancer Father Colon Cancer Maternal Aunt I spent a total of 40 minutes on the date of service which included preparing to see the patient, [id number] patient care, completing clinical documentation, obtaining and/or reviewing separately obtained history, performing a medically appropriate examination, counseling and educating the patient/family/caregiver, ordering medications, tests, or procedures, independently interpreting results (not separately reported), communicating results to the patient/family/caregiver, and care coordination (not separately reported). Anibal Ash MD, CPE Hematology and Oncology Services Provided at: [place], [place] Scribe Attestation: This note was scribed by Stacie Schultz on May 17, 2024 under the direction and supervisionof Dr. Anibal Ash. I attest that all of the information documented is correct to the best of my knowledge. Provider Attestation: I, Anibal Ash MD, attest that all information documented by the above scribe is correct, and was supervised by me and under my direction. CC: Danilo Clark MD [address] [place] [address] documented in this encounterSouth[facility] Note[facility] History of Present illness Narrative* Jabier Aldridge, DPM - 03/11/2024 3:00 PM EST Patient: Rafat Bella : 1940 PCP: Danilo Clark MD SUBJECTIVE This is a 84 y.o. male that presents today with a CC of elongated, thick nails. Pt states nails have been elongated and thick for many years and cause pain with ambulation in shoegear. Pt has tried previous treatment with minimal relief. Pt presents today for nail care and treatment. Patient is DM2 Allergies: Allergies Allergen Reactions Lisinopril Penicillins Swelling Swelling of the mouth. Past Medical History: Past Medical History: Diagnosis Date BPH (benign prostatic hyperplasia) Diabetes (CMS/HCC) Gastric ulcer 2016 HLD (hyperlipidemia) (CMS/HCC) HTN (hypertension) (CMS/HCC) Hx pulmonary embolism Metastatic disease (CMS/HCC) Multiple myeloma (CMS/HCC) remission Medications: Current Outpatient Medications: atorvastatin (Lipitor) 20 MG tablet, Take 20 mg by mouth in the morning., Disp: , Rfl: escitalopram (Lexapro) 10 MG tablet, Take 10 mg by mouth in the morning., Disp: , Rfl: gabapentin (Neurontin) 300 MG capsule, Take 300 mg by mouth in the morning and 300 mg in the evening and 300 mg before bedtime., Disp: , Rfl: glimepiride (Amaryl) 1 MG tablet, Take 4 mg by mouth in the morning. Take with meals., Disp: , Rfl: hydrocortisone 2.5 % cream, APPLY TO FACE ONCE A DAY FRIDAY THROUGH FRIDAY OFF ON WEEKENDS (REPEAT NEEDED FOR FLARES), Disp: , Rfl: insulin glargine (Lantus SoloStar) 100 UNIT/ML pen, Inject 10 Units under the skin at bedtime., Disp: , Rfl: linaGLIPtin (Tradjenta) 5 MG tablet, Take 5 mg by mouth in the morning., Disp: , Rfl: losartan (Cozaar) 50 MG tablet, Take 50 mg by mouth in the morning., Disp: , Rfl: oxyCODONE (Oxy-IR) 5 MG immediate release capsule, Take 5 mg by mouth 2 (two) times a day as neededfor severe pain., Disp: , Rfl: tamsulosin (Flomax) 0.4 MG 24 hr capsule, Take 0.4 mg by mouth in the morning., Disp: , Rfl: warfarin (Coumadin) 5 MG tablet, Take 5 mg by mouth. Take as directed per After Visit Summary., Disp: , Rfl: Social History: Social History Socioeconomic History Marital status: Spouse name: Not on file Number of children: Not on file Years of education: Not on file Highest education level: Not on file Occupational History Not on file Tobacco Use Smoking status: Former Current packs/day: 1.00 Types: Cigarettes Passive exposure: Past Smokeless tobacco: Never Vaping Use Vaping status: Never Used Substance and Sexual Activity Alcohol use: Not Currently Drug use: Never Sexual activity: Defer Other Topics Concern Not on file Social History Narrative Not on file Social Drivers of Health Financial Resource Strain: Not on file Food Insecurity: Not on file Transportation Needs: Not on file Physical Activity: Not on file Stress: Not on file Social Connections: Not on file Intimate Partner Violence: Not on file Housing Stability: Not on file ROS: General: denies fever, chills, fatigue, malaise OBJECTIVE LE EXAM: DERM: Elongated thick yellow crumbly nails digits 1 through 10. Negative hair growth with thin shiny atrophic skin bilaterally Rubor to PIPJ regions 2 through 5 digits bilaterally VASC: Positive DP and negative PT pedal pulses NEURO: 5.07 Underwood Bhavya monofilament test diminished to digits and forefoot bilaterally 125Hz tuning fork diminished to 1st MPJ bilaterally ORTHO: Positive pain on palpation to nails 1 through 10 Flexion deformities 2 through 5 digits bilaterally ASSESSMENT 1. Diabetes mellitus due to underlying condition with diabetic polyneuropathy, unspecified whether continuous churn buttermaker insulin use ([facility]) 2. Pain due to onychomycosis of toenails of both feet 3. Acquired deformity of right toe 4. Acquired deformity of left toe PLAN Discussed proper foot care with patient today. Debride nails in length and thickness digits 1 through 10 Patient educated today on proper diabetic foot care including monitoring feet daily for any signs of infection openings in the skin or irregularities to both feet. Patient had a diabetic neurologicalexam today to both their feet and discussed proper shoe gear. Jabier Aldridge DPM documented in this encounterThe [facility] Institute of St. [id number] Evaluation note* Diagnosis 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 (HCC)- Primary Multiple myeloma, without mention of having achieved remission Stage 3a chronic kidney disease (HCC) documented in this encounter [facility] History of Present illness Narrative* Idalmis Basilio APRN.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 - 02/09/2024 1:40 PM EST Images from the original note were not included. NAME: Rafat Bella CLINIC NO.: [id number] DATE OF SERVICE: 02/09/2024 (Praful). Some elements in this clinic note that are critical to medical decision making have been carefully reviewed and included from a prior clinic note dated: 11/10/2023 (Mihir) Referring Provider: Danilo Clark CC: Multiple myeloma ASSESSMENT: 84 year old gentleman with multiple myeloma currently [...] positive in his one large humerus lesion. M-spike had been 0 abut now is starting to rise slowly although no additional lesions noted on PET/CT and k/L ratio is fdstable. Bone prophylaxis Previously receieved zolendronic acid. PLAN: Repeat myeloma labs in 3 months RTC 1 week after to review labs ___ HPI: CASE HISTORY: Reverse Chronological Order 02/02/2024 - CBC: 6.18 > 13.8 / 40.7 < 181, eGFR: 56, Creatinine: 1.28 [place]: 109.2, Lambda: 45.1, K/L Ratio: 2.42 IgA: 258, Ig, IgM: 316 M-protein concentration: 0.51 11/03/2023 - M-protein: 0.42 08/29/2023 - PET/CT: No FDG avid neoplastic process. 08/04/2023 - M-protein: 0.41 multiple previous values [...] limited to primary parotid neoplasm such as pleomo rphic adenoma, Warthin's tumor versus enlarged intraparotid lymph [...] kyphoplasty shortly after diagnosis. Updated Visit, February 09, 2024: Rafat returns today with Rosario for a follow-up. Today his M spike is relatively stable it has increased slightly to 0.51. His K/L ratio is also stable at 2.42. CBC is normal. We will continue to monitor his M-protein. Patient states his back pain has improved and he is doing better. He is having some right hand pain that has been ongoing not getting any worse. His appetite is good. Energy fluctuates. No bowel or bladder issues. Updated Visit, November 10, 2023: Rafat returns with Karly for a follow up. PET/CT in August revealed no FDG avid neoplastic process. M-spike is relatively stable compared to May's value - 0.42 on 11/02. K/L ratio is stable as well. CBCis normal. If M-protein continues to rise, will repeat PET/CT. Updated Visit, August 11, 2023: Rafat returns with Karly for a follow up. M-protein is up to 0.41 as of last week - ordered PET/CT.Uncertain whether or not this M-spike reflects a resurgence of his myeloma or not. He complains of bilateral flank pain, different from his chronic spinal pain. But in a similar areaas his previous kyphoplasty. He has loose stools and some difficulty urinating, according to Karly. He has prescribed oxycodone but he does not take often as it causes constipation - although this may be beneficial as he has been having diarrhea. Updated Visit, February 10, 2023: Rafat returns today for follow up accompanied by his Karly, with concerns over a spot behind his [...] Doing well. No complaints but is fatigued. Karly is with as usual. Reviewed labs. No evidence of progressive disease. Updated Visit, February 11, 2022: Telephone only for 5 minutes Called Rafat and karly as requested. Reviewed labs from 02/07/2022. 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 He has no complaints. 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 Still off treatment and still has no evidence of disease. Overall is doing well. M spike remain undetectable and all other labs are stable. Karly is with him. Updated Visit, December 18, [...] clot in January 2016. He went to [facility] ER for fatigue and diagnosed with a [...] Revlimid. Had hospitalization in January 2017 to [facility] and had a kyphoplasty for compression fracture. [...] he remains on as of October 2017. __ REVIEW OF SYSTEMS Per HPI and otherwise negative by full review of organ systems. ECOG PERFORMANCE STATUS: 2 PHYSICAL EXAMINATION: Vitals: BP 147/68 Pulse 65 Temp (Src) 97 (Temporal) Resp 18 Ht 5' 9.528 (1.77m) Wt 254 lb 3.1 oz (115.3kg) SpO2 97% BMI 36.97 kg/(m^2). Body surface area is 2.38 meters squared. Exam limited to gross visualization [...] Penicillins Swelling Swelling of the mouth. 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 pioglitazone (ACTOS) 15 mg tablet Take 15 mg by mouth daily before breakfast. ACCU-CHEK ELIZABETH PLUS TEST STRP test strip [...] once daily. Weds and Sat 2.5 mg senna-docusate (MEDI-NATURAL SENNA-STOOL) 8.6-50 mg per tablet Take 2 tablets by mouth twice daily. ondansetron (ZOFRAN) 4 mg tablet Take [...] Inject 10 Units subcutaneously daily at bedtime. oxyCODONE IR (ROXICODONE) 5 mg immediate release tablet Take 2 tablets by mouth every 6 hours as needed for up to 30 days. glimepiride (AMARYL) 1 mg tablet Take 1 mg by mouth daily with breakfast. linaGLIPtin (TRADJENTA) 5 mg tab Take 5 mg by mouth once daily. LABORATORY VALUES: WBC (k/uL) Date Value 02/02/2024 6.18 RBC (m/uL) Date Value 02/02/2024 4.48 Hemoglobin (g/dL) Date Value 02/02/2024 13.8 Hematocrit (%) Date Value 02/02/2024 40.7 MCV (fL) Date Value 02/02/2024 90.8 MCH (pg) Date Value 02/02/2024 30.8 MCHC (g/dL) Date Value 02/02/2024 33.9 RDW-CV (%) Date Value 02/02/2024 12.3 Platelet Count (k/uL) Date Value 02/02/2024 181 MPV (fL) Date Value 02/02/2024 9.7 Glucose (mg/dL) Date Value 02/02/2024 261 (H) BUN (mg/dL) Date Value 02/02/2024 15 Creatinine (mg/dL) Date Value 02/02/2024 1.28 (H) Sodium (mmol/L) Date Value 02/02/2024 135 (L) Potassium (mmol/L) Date Value 02/02/2024 4.1 Chloride (mmol/L) Date Value 02/02/2024 102 CO2 (mmol/L) Date Value 02/02/2024 21 (L) Protein, Total (g/dL) Date Value 02/02/2024 7.1 02/02/2024 6.8 Albumin (g/dL) Date Value 02/02/2024 3.9 Calcium, Total (mg/dL) Date Value 02/02/2024 9.2 Alkaline Phosphatase (U/L) Date Value 02/02/2024 84 Bilirubin, Total (mg/dL) Date Value 02/02/2024 0.4 AST (U/L) Date Value 02/02/2024 28 ALT (U/L) Date Value 02/02/2024 20 M-Protein Concentration Date Value 02/02/2024 0.51 g/dL 11/03/2023 0.42 g/dL 08/04/2023 0.41 g/dL 02/03/2023 0.00 g/dL 08/05/2022 0.00 g/dL 12/11/2020 0.00 gm/dL 05/24/2020 0.00 gm/dL 12/01/2019 0.00 gm/dL 05/20/2019 0.00 gm/dL 03/22/2019 0.00 gm/dL DIAGNOSIS: (C90.00) 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 (HCC) (primary encounter diagnosis) Plan: B2 MICROGLOBULIN, COMPLETE BLOOD COUNT AND DIFFERENTIAL, COMPREHENSIVE METABOLIC PANEL, LACTATE DEHYDROGENASE, PHOSPHORUS INORGANIC, PROTEIN ELECTROPHORESIS SERUM W/INTERP, MONOCLONAL PROTEIN, SERUM (BLOOD), URIC ACID, CALCIUM, IONIZED (N18.31) Stage 3a chronic kidney disease (HCC) [...] Colon Cancer Father Colon Cancer Maternal Aunt . Idalmis Basilio APRN, SENIOR SYSTEMS PROGRAMMER-C, [facility] Hematology and Oncology Services Provided at: [place], [place] CC: Danilo Clark MD [address] [place] [id number] documented in this encounterSouth[facility]11-18-[facility]24 NoteS[facility]10[facility] History of Present illness Narrative* Jabier Aldridge, DPM - 01/01/2024 3:30 PM EDT Patient: Rafat Bella : 1940 PCP: Danilo Clark MD SUBJECTIVE This is a 83 y.o. male that presents today with a CC of elongated, thick nails. Pt states nails have been elongated and thick for many years and cause pain with ambulation in shoegear. Pt has tried previous treatment with minimal relief. Pt presents today for nail care and treatment. Patient is DM2 Allergies: Allergies Allergen Reactions Lisinopril Penicillins Swelling Swelling of the mouth. Past Medical History: Past Medical History: Diagnosis Date BPH (benign prostatic hyperplasia) Diabetes (CMS/HCC) Gastric ulcer 2016 HLD (hyperlipidemia) (CMS/HCC) HTN (hypertension) (CMS/HCC) Hx pulmonary embolism Metastatic disease (CMS/HCC) Multiple myeloma (CMS/HCC) remission Medications: Current Outpatient Medications: atorvastatin (Lipitor) 20 MG tablet, Take 20 mg by mouth in the morning., Disp: , Rfl: escitalopram (Lexapro) 10 MG tablet, Take 10 mg by mouth in the morning., Disp: , Rfl: gabapentin (Neurontin) 300 MG capsule, Take 300 mg by mouth in the morning and 300 mg in the evening and 300 mg before bedtime., Disp: , Rfl: glimepiride (Amaryl) 1 MG tablet, Take 4 mg by mouth in the morning. Take with meals., Disp: , Rfl: hydrocortisone 2.5 % cream, APPLY TO FACE ONCE A DAY FRIDAY THROUGH FRIDAY OFF ON WEEKENDS (REPEAT NEEDED FOR FLARES), Disp: , Rfl: insulin glargine (Lantus SoloStar) 100 UNIT/ML pen, Inject 10 Units under the skin at bedtime., Disp: , Rfl: linaGLIPtin (Tradjenta) 5 MG tablet, Take 5 mg by mouth in the morning., Disp: , Rfl: losartan (Cozaar) 50 MG tablet, Take 50 mg by mouth in the morning., Disp: , Rfl: oxyCODONE (Oxy-IR) 5 MG immediate release capsule, Take 5 mg by mouth 2 (two) times a day as neededfor severe pain., Disp: , Rfl: tamsulosin (Flomax) 0.4 MG 24 hr capsule, Take 0.4 mg by mouth in the morning., Disp: , Rfl: warfarin (Coumadin) 5 MG tablet, Take 5 mg by mouth. Take as directed per After Visit Summary., Disp: , Rfl: Social History: Social History Socioeconomic History Marital status: Spouse name: Not on file Number of children: Not on file Years of education: Not on file Highest education level: Not on file Occupational History Not on file Tobacco Use Smoking status: Former Current packs/day: 1.00 Types: Cigarettes Passive exposure: Past Smokeless tobacco: Never Vaping Use Vaping status: Never Used Substance and Sexual Activity Alcohol use: Not Currently Drug use: Never Sexual activity: Defer Other Topics Concern Not on file Social History Narrative Not on file Social Determinants of Health Financial Resource Strain: Not on file Food Insecurity: Not on file Transportation Needs: Not on file Physical Activity: Not on file Stress: Not on file Social Connections: Not on file Intimate Partner Violence: Not on file Housing Stability: Not on file ROS: General: denies fever, chills, fatigue, malaise OBJECTIVE LE EXAM: DERM: Elongated thick yellow crumbly nails digits 1 through 10. Negative hair growth with thin shiny atrophic skin bilaterally Rubor to PIPJ regions 2 through 5 digits bilaterally VASC: Positive DP and negative PT pedal pulses NEURO: 5.07 Underwood Bhavya monofilament test diminished to digits and forefoot bilaterally 125Hz tuning fork diminished to 1st MPJ bilaterally ORTHO: Positive pain on palpation to nails 1 through 10 Flexion deformities 2 through 5 digits bilaterally ASSESSMENT 1. Diabetes mellitus due to underlying condition with diabetic polyneuropathy, unspecified whether continuous churn buttermaker insulin use ([facility]) 2. Pain due to onychomycosis of toenails of both feet 3. Acquired deformity of right toe 4. Acquired deformity of left toe PLAN Discussed proper foot care with patient today. Debride nails in length and thickness digits 1 through 10 Patient educated today on proper diabetic foot care including monitoring feet daily for any signs of infection openings in the skin or irregularities to both feet. Patient had a diabetic neurologicalexam today to both their feet and discussed proper shoe gear. Jabier Aldridge DPM documented in this encounterThe [facility] [id number] Instructions* Patient Instructions* Stacie Banegas - 11/10/2023 2:07 PM EDT Repeat myeloma labs in 3 months RTC 1 week after to review labs documented in this [facility] History of Present illness Narrative* Anibal Ash MD - 11/10/2023 1:30 PM EDT Images from the original note were not included. NAME: Rafat Bella [facility] NO[facility] [id number] DATE OF SERVICE: November 10, 2023 (Mihir) Some elements in this clinic note that are critical to medical decision making have been carefully reviewed and included from a prior clinic note dated: August 11, 2023 (Mihir) Referring Provider: Danilo Clark CC: Multiple myeloma ASSESSMENT: 83 year old [...] positive in his one large humerus lesion. M-spike had been 0 abut now is starting to rise slowly although no additional lesions noted on PET/CT and k/L ratio is fdstable. Bone prophylaxis Previously receieved zolendronic acid. PLAN: Repeat myeloma labs in 3 months RTC 1 week after to review labs MRI of the spine if desired ___ HPI: CASE HISTORY: Reverse Chronological Order 11/03/2023 - M-protein: 0.42 08/29/2023 - PET/CT: No FDG avid neoplastic process. 08/04/2023 - M-protein: 0.41 multiple previous values [...] limited to primary parotid neoplasm such as pleomo rphic adenoma, Warthin's tumor versus enlarged intraparotid lymph [...] requiring kyphoplasty shortly after diagnosis. Updated Visit, November 10, 2023: Rafat returns with Karly for a follow up. PET/CT in August revealed no FDG avid neoplastic process. M-spike is relatively stable compared to July's value - 0.42 on 11/02. K/L ratio is stable as well. CBCis normal. If M-protein continues to rise, will repeat PET/CT. Updated Visit, August 11, 2023: Rafat returns with Karly for a follow up. M-protein is up to 0.41 as of last week - ordered PET/CT.Uncertain whether or not this M-spike reflects a resurgence of his myeloma or not. He complains of bilateral flank pain, different from his chronic spinal pain. But in a similar areaas his previous kyphoplasty. He has loose stools and some difficulty urinating, according to Karly. He has prescribed oxycodone but he does not take often as it causes constipation - although this may be beneficial as he has been having diarrhea. Updated Visit, February 10, 2023: Rafat returns today for follow up accompanied by his Karly, with concerns over a spot behind his [...] Doing well. No complaints but is fatigued. Karly is with as usual. Reviewed labs. No evidence of progressive disease. Updated Visit, February 11, 2022: Telephone only for 5 minutes Called Ryanne as requested. Reviewed labs from 02/07/2022. 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 He has no complaints. 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 Still off treatment and still has no evidence of disease. Overall is doing well. M spike remain undetectable and all other labs are stable. Karly is with him. Updated Visit, December 18, [...] clot in January 2016. He went to [facility] ER for fatigue and diagnosed with a [...] Revlimid. Had hospitalization in January 2017 to [facility] and had a kyphoplasty for compression fracture. [...] he remains on as of October 2017. __ REVIEW OF SYSTEMS Per HPI and otherwise negative by full review of organ systems. ECOG PERFORMANCE STATUS: 2 PHYSICAL EXAMINATION: Vitals: BP 144/70 Pulse 91 Temp (Src) 97.6 (Temporal) Resp 20 Ht 5' 9.528 (1.77m) Wt 261lb 7.5 oz (118.6kg) SpO2 100% BMI 38.03 kg/(m^2). Body surface area is 2.41 meters squared. Exam limited to gross visualization [...] 15 mg by mouth daily before breakfast. gabapentin (NEURONTIN) 300 mg capsule GABAPENTIN ORAL [...] Inject 10 Units subcutaneously daily at bedtime. oxyCODONE IR (ROXICODONE) 5 mg immediate release tablet Take 2 tablets by mouth every 6 hours as needed for up to 30 days. ACCU-CHEK ELIZABETH PLUS TEST STRP test strip (Patient not taking: Reported on 11/10/2023) BD INSULIN PEN NEEDLE UF 31 gauge x 08/06 ndle (Patient not taking: Reported on 11/10/2023) LABORATORY VALUES: WBC (k/uL) Date Value 11/03/2023 6.24 RBC (m/uL) Date Value 11/03/2023 4.33 Hemoglobin (g/dL) Date Value 11/03/2023 13.5 Hematocrit (%) Date Value 11/03/2023 40.3 MCV (fL) Date Value 11/03/2023 93.1 MCH (pg) Date Value 11/03/2023 31.2 MCHC (g/dL) Date Value 11/03/2023 33.5 RDW-CV (%) Date Value 11/03/2023 12.9 Platelet Count (k/uL) Date Value 11/03/2023 200 MPV (fL) Date Value 11/03/2023 9.7 Glucose (mg/dL) Date Value 11/03/2023 280 (H) BUN (mg/dL) Date Value 11/03/2023 21 Creatinine (mg/dL) Date Value 11/03/2023 1.41 (H) Sodium (mmol/L) Date Value 11/03/2023 138 Potassium (mmol/L) Date Value 11/03/2023 4.6 Chloride (mmol/L) Date Value 11/03/2023 104 CO2 (mmol/L) Date Value 11/03/2023 25 Protein, Total (g/dL) Date Value 11/03/2023 7.0 11/03/2023 6.6 Albumin (g/dL) Date Value 11/03/2023 3.8 (L) Calcium, Total (mg/dL) Date Value 11/03/2023 9.7 Alkaline Phosphatase (U/L) Date Value 11/03/2023 84 Bilirubin, Total (mg/dL) Date Value 11/03/2023 0.4 AST (U/L) Date Value 11/03/2023 29 ALT (U/L) Date Value 11/03/2023 26 M-Protein Concentration Date Value 11/03/2023 0.42 g/dL 08/04/2023 0.41 g/dL 02/03/2023 0.00 g/dL 08/05/2022 0.00 g/dL 02/07/2022 0.00 g/dL 12/11/2020 0.00 gm/dL 05/24/2020 0.00 gm/dL 12/01/2019 0.00 gm/dL 05/20/2019 0.00 gm/dL 03/22/2019 0.00 gm/dL DIAGNOSIS: (C90.00) 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 (HCC) (primary encounter diagnosis) Plan: B2 MICROGLOBULIN, COMPLETE BLOOD COUNT AND DIFFERENTIAL, COMPREHENSIVE METABOLIC PANEL, LACTATE DEHYDROGENASE, PHOSPHORUS INORGANIC, PROTEIN ELECTROPHORESIS SERUM W/INTERP, MONOCLONAL PROTEIN, SERUM (BLOOD), URIC ACID, CALCIUM, IONIZED, KAPPA/COTA,FREE,SER (N18.31) Stage 3a chronic kidney disease (HCC) Plan: B2 MICROGLOBULIN, COMPLETE BLOOD COUNT AND DIFFERENTIAL, COMPREHENSIVE METABOLIC PANEL, LACTATE DEHYDROGENASE, PHOSPHORUS INORGANIC, PROTEIN ELECTROPHORESIS SERUM W/INTERP, MONOCLONAL PROTEIN, SERUM (BLOOD), URIC ACID, CALCIUM, IONIZED, KAPPA/COTA,FREE,SER (D69.6) Thrombocytopenia (HCC) Plan: B2 MICROGLOBULIN, COMPLETE BLOOD COUNT AND DIFFERENTIAL, COMPREHENSIVE METABOLIC PANEL, LACTATE DEHYDROGENASE, PHOSPHORUS INORGANIC, PROTEIN ELECTROPHORESIS SERUM W/INTERP, MONOCLONAL PROTEIN, SERUM (BLOOD), URIC ACID, CALCIUM, IONIZED, KAPPA/COTA,FREE,SER PAST MEDICAL HISTORY No date: Androgen deficiency No date: Anemia No date: Cholelithiasis No date: Chronic kidney disease Comment: Stage 3 No date: Diabetic peripheral neuropathy (HCC) No date: Essential hypertension No date: Hyperlipidemia No date: Hypertrophy of prostate without urinary obstruction No date: Malaise and fatigue No date: Monoclonal gammopathy No date: Morbid obesity (HCC) No date: Pulmonary embolism (HCC) No date: Tubular adenoma of colon No date: Type 2 diabetes mellitus (HCC) PAST SURGICAL HISTORY No date: APPENDECTOMY 07/2013: COLONOSCOPY No date: DIAGNOSTIC ARTHROSCOPY SHOULDER +- SYNOVIAL BX; Left No date: TONSILLECTOMY HX Social History Tobacco Use Smoking status: Former Types: Cigars Quit date: 12/12/1976 Years since quittin.9 Smokeless tobacco: Never Tobacco comments: Quit 40 years ago Substance Use Topics Alcohol use: Yes Comment: 2 beers per year. Drug use: No FAMILY HISTORY Problem Relation Age of Onset Cancer Mother Colon Cancer Father Colon Cancer Maternal Aunt I spent a total of 30 minutes on the date of the service which included preparing to see the patient, [id number] patient care, completing clinical documentation, performing a medically appropriate examination, counseling and educating the patient/family/caregiver, ordering medications, tests, or p rocedures, independently interpreting results (not separately reported), communicating results to the patient/family/caregiver, and care coordination (not separately reported). Anibal Ash MD, CPE Hematology and Oncology Services Provided at: [place], [place] Scribe Attestation: This note was scribed by Stacie Banegas on November 10, 2023 under the direction and supervision of Dr. Anibal Ash. I attest that all of the information documented is correct to the best of my knowledge. Provider Attestation: I, Anibal Ash MD, attest that all information documented by the above scribe is correct, and was supervised by me and under my direction. CC: Danilo Clark MD [id number] [facility] [id number] documented in this encounterSouth[facility]06-[facility]-2024 Telephone encounter Note * Telephone Encounter - Rafaela Rodriguez RN - 09/08/2023 8:02 AM EDT Anibal Ash MD 09/06/2023 9:12 AM EDT Hi Rafat - PET scan is negative for any myeloma holes in the bones. Pt' , Shira, informed of Wan's message and denies any questions, needs or concerns at this time. Appointment verified. Rafaela Rodriguez RN [facility]06-[facility] Miscellaneous Notes* Telephone Encounter - Rafaela Rodriguez RN - 09/08/2023 8:02 AM EDT Anibal Ash MD 09/06/2023 9:12 AM EDT Hi Rafat - PET scan is negative for any myeloma holes in the bones. Pt' , hSira, informed of Wan's message and denies any questions, needs or concerns at this time. Appointment verified. Rafaela Rodriguez RN * Telephone Encounter - Lori Christine - 08/11/2023 1:[address] Blas is requesting triage nurse to call Patient with his Pet scan results from 08-29-23. documented in this encounterSouth[facility]06-07-2024 History of Present illness Narrative* Pratima Dang RN - 08/29/2023 1:00 PM EDT Radiology Service Progress Note DATE OF SERVICE: August 29, 2023 TIME: 1:20 PM PATIENT IDENTITY VERIFICATION COMPLETED USING TWO (2) STANDARD IDENTIFIERS: Name and Date of confirmed by patient verbally. FALL SCREENING: Has the patient had 2 falls in the last year or 1 fall with injury or currently using an Ambulatory Assistive Device (Walker, Cane, Wheelchair, Crutches, etc.)? Yes, Patient High Riskfor Falls What interventions were put in place [...] Ref Range Status 08/04/2023 48 (L) >=60 mL/min/1.73m Final Comment: Estimated Glomerular Filtration Rate (eGFR) is calculated using the 2020 CKD-EPI creatinine equation. This equation utilizes serum creatinine, sex, and age as parameters. The creatinine assay has traceable calibration to isotope dilution- mass spectrometry. Refer to KDIGO guidelines for clinical interpretation. In patients with unstable renal function, e.g. those with acute kidney injury, the eGFRmay not accurately reflect actual GFR. eGFR- Date Value Ref Range Status 12/11/2020 >60 Final P.O.C.T. RESULTS: N/A August 29, 2023 TREATMENT: N/A IV SITE: Ambulatory: A peripheral IV was started in the Right antecubital site with a Angio cath: 22 gauge. IV SITE APPEARANCE: Clean,Dry and Intact SIGNATURE: Pratima Dang RN PATIENT NAME: Rafat Bella DATE: August 29, 2023 TIME: 1:20 PM * Litzy Kunz, RT(R) - 08/29/2023 1:00 PM EDT RADIOLOGY SERVICE PROGRESS NOTE SERVICE DATE: 08/29/2023 SERVICE TIME: 1:58 PM PATIENT IDENTITY VERIFICATION COMPLETED USING TWO (2) STANDARD IDENTIFIERS: Name and Date of confirmed by patient verbally POST EXAM PIV STATUS: Discontinued PROCEDURE TYPE: NM INJECT: PET/CT BODY SCAN. 17.6 mCi F18 FDG. No other medications given.. ADMINISTRATION TIME: 1253 PATIENT DISCHARGED TO: Ambulatory patient, left [place] department area. A Diagnostic radioactive procedure has taken place, with no further precautions necessary other than routine body substance precautions. More information regarding radiation safety can be found usingthis link: [email or web address] SIGNATURE: RT Joon(Maria) PATIENT NAME: Rafat Bella DATE: August 29, 2023 TIME: 1:58 PM PAGER/CONTACT #: documented in this encounterSouth[facility] Center05-20-2024 Telephone encounter Note * Telephone Encounter - Lori Christine - 08/11/2023 1:[address] Blas is requesting triage nurse to call Patient with his Pet scan results from 08-29-23. [facility] Instructions* Patient Instructions* Stacie Banegas - 08/11/2023 1:21 PM EDT PET/CT whole body as soon as approved Triage to call results Repeat myeloma labs in 3 months RTC 1 week after to review labs documented in this encounterSouth[facility] Center05-20-2024 Nurse Note* Madeleine Bradford MA - 08/11/2023 1:09 PM EDT Patient does have flank pain, his thinks it may be UTI, I did advise her to discuss with you but we could do a UA if it is ordered. Madeleine Schilling MA [facility] Nurse Note* Madeleine Schilling MA - 08/11/2023 1:09 PM EDT Patient does have flank pain, his thinks it may be UTI, I did advise her to discuss with you but we could do a UA if it is ordered. Madeleine Schilling MA documented in this encounterSouth[facility] Center05-20-2024 History of Present illness Narrative* Anibal Ash MD - 08/11/2023 1:00 PM EDT Images from the original note were not included. NAME: Rafat Bella [facility] NO[facility] [id number] DATE OF SERVICE: August 11, 2023 (Mihir) Some elements in this clinic note that are critical to medical decision making have been carefully reviewed and included from a prior clinic note dated: February 10, 2023 (Mihir) Referring Provider: Danilo Clark CC: Multiple myeloma ASSESSMENT: 83 year old [...] limited to primary parotid neoplasm such as pleomo rphic adenoma, Warthin's tumor versus enlarged intraparotid lymph [...] Visit, August 11, 2023: Rafat returns with Karly for a follow up. M-protein is up to 0.41 as of last week - ordered PET/CT.Uncertain whether or not this M-spike reflects a resurgence of his myeloma or not. He complains of bilateral flank pain, different from his chronic spinal pain. But in a similar areaas his previous kyphoplasty. He has loose stools and some difficulty urinating, according to Karly. He has prescribed oxycodone but he does not take often as it causes constipation - although this may be beneficial as he has been having diarrhea. Updated Visit, February 10, 2023: Rafat returns today for follow up accompanied by his Karly, with concerns over a spot behind his [...] Doing well. No complaints but is fatigued. Karly is with as usual. Reviewed labs. No evidence of progressive disease. Updated Visit, February 11, 2022: Telephone only for 5 minutes Called Ryanne as requested. Reviewed labs from 02/07/2022. 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 He has no complaints. 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 Still off treatment and still has no evidence of disease. Overall is doing well. M spike remain undetectable and all other labs are stable. Karly is with him. Updated Visit, December 18, [...] clot in January 2016. He went to [facility] ER for fatigue and diagnosed with a [...] Revlimid. Had hospitalization in January 2017 to [facility] and had a kyphoplasty for compression fracture. [...] he remains on as of October 2017. __ REVIEW OF SYSTEMS Per HPI and otherwise [...] which included preparing to see the patient, [id number] patient care, completing clinical documentation, performing a medically appropriate examination, counseling and educating the patient/family/caregiver, ordering medications, tests, or p rocedures, independently interpreting results (not separately reported), communicating results to the patient/family/caregiver, and care coordination (not separately reported). Anibal Ash MD, CPE Hematology and Oncology Services Provided at: [place], [place] Scribe Attestation: This note was scribed by Stacie Banegas on August 11, 2023 under the direction and supervision of Dr. Anibal Ash. I attest that all of the information documented is correct to the best of my knowledge. Provider Attestation: I, Anibal Ash MD, attest that all information documented by the above scribe is correct, and was supervised by me and under my direction. CC: Danilo Clark MD [address] [facility] [id number] documented in this encounterSouth[facility] Center12-07-2023 Evaluation note* Encounter Date Diagnosis Assessment Notes Treatment Notes Treatment Clinical Notes Feb, Essential (primary) hypertension (ICD-10 - I10) Feb,Type 2 diabetes mellitus with hyperglycemia (ICD-10 - E11.65) [employer] Other 11-13-2023 Evaluation note* Encounter Date Diagnosis Assessment Notes Treatment Notes Treatment Clinical Notes Jan, Complex regional jasmeet n syndrome I of right upper limb (ICD-10 - G90.511) Continue Neurontin and consider pain management. [facility] [employer] Other 10-11-2023 Evaluation note* Encounter Date Diagnosis Assessment Notes Treatment Notes Treatment Clinical Notes Dec, Type 2 diabetes mellitus with hy perglycemia (ICD-10 - E11.65) This patient is following [...] Microalbumin, Dilated eye exam and Foot exam Dec,Essential (primary) hypertension (ICD-10 - I10)This patient is instructed to consume a healthy, low-fat, low-salt diet. They are also encouraged to continue exercise to achieve/maintain a normal BMI. Patient is instructed on home BP measurements: - rest for 5 minutes w/o talking- positioned w/ feeton floor and arm supported- average best 2/3 readings w/ goal < 135/85 Increase Losartan to 50mg q am and 25mg q pm Dec,Type 2 diabetes mellitus with diabetic polyneuropathy (ICD-10 - E11.42)Inspect feet daily for cuts and calluses.Recommend diabetic shoes and inserts to prevent callus formation.Fall precautions. Dec,hronic kidney disease, stage 3b (ICD-10 - N18.32)The patient is instructed on adequate control of hypertension and diabetes, if appropriate. They are also educated on the associated risks of NSAIDs and PPI use with kidney disease. They were instructed on adequate fluid balance and to avoid dehydration. 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 Ice/heat and Tylenol Dec,Elevated cholesterol (ICD-10 - E78.00)Instructed on diet and exercise with continued statin therapy.Discussed the beneficial effects of lo wering cholesterol in reducing the risk for cerebrovascular and cardiovascular disease. Dec,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 (ICD-10 - C90.00)No s/s recurrence, f/u Oncology Dec,one metastases (ICD-10 - C79.51)Pain adequately controlled Continue Hydrocodone as needed. 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 Sep,hronic kidney disease, stage 3b (ICD-10 - N18.32)The patient is instructed on adequate control of hypertension and diabetes, if appropriate. They are also educated on the associated risks of NSAIDs and PPI use with kidney disease. They were instructed on adequate fluid balance and to avoid dehydration. Sep,Essential (primary) hypertension (ICD-10 - I10)This patient is instructed to consume a healthy, low-fat, low-salt diet. They are also encouraged to continue exercise to achieve/maintain a normal BMI. 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 Sep,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 (ICD-10 - C90.00)No s/s relapse. f/u Heme/Onc for blood testing q 6 mo. Hx of bone metastasis: right Humerus Sep,one metastases (ICD-10 - C79.51)This patient requires opiate use on a daily [...] report is being monitored every 90 days. Sep,enign prostatic hyperplasia with lower urinary tract symptoms (ICD- 10 - N40.1) Sep,Long term (current) use of anticoagulants (ICD-10 - Z79.01)No bleeding complications Sep,OtherThe patient is instructed on adequate control of hypertension and diabetes, if appropriate. They are also educated on the associated risks of NSAIDs and PPI use with kidney disease. They were instructed on adequate fluid balance and to avoid dehydration. [employer] Other 05-11-2023 Evaluation note* Encounter Date Diagnosis Assessment Notes Treatment Notes Treatment Clinical Notes July, Type 2 diabetes mellitus with hy perglycemia (ICD-10 - E11.65) [employer] Other 04-12-2023 Evaluation note* Encounter Date Diagnosis Assessment Notes Treatment Notes Treatment Clinical Notes Jun, Bone metastases (ICD-10 - C79.51 ) [employer] Other 04-11-2023 Evaluation note* Encounter Date Diagnosis Assessment Notes Treatment Notes Treatment Clinical Notes Jun, Type 2 diabetes mellitus with hy perglycemia (ICD-10 - E11.65) This patient is following [...] which are reviewed at the office visit. 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 Jun,Type 2 diabetes mellitus with diabetic chronic kidney disease (ICD- 10 - E11.22)The patient is instructed on adequate control of hypertension and diabetes, if appropriate. They are also educated on the associated risks of NSAIDs and PPI use with kidney disease. They were instructed on adequate fluid balance and to avoid dehydration. Jun,hronic kidney disease, stage 3b (ICD-10 - N18.32)The patient is instructed on adequate control of hypertension and diabetes, if appropriate. They are also educated on the associated risks of NSAIDs and PPI use with kidney disease. They were instructed on adequate fluid balance and to avoid dehydration. Jun,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 (ICD-10 - C90.00)No s/s active disease - known mets to right humerus Jun,Essential (primary) hypertension (ICD-10 - I10)This patient is instructed to consume a healthy, low-fat, low-salt diet. They are also encouraged to continue exercise to achieve/maintain a normal BMI. Jun,Elevated cholesterol (ICD-10 - E78.00)Diet and exercise with continued statin therapy. Jun,one metastases (ICD-10 - C79.51)This patient requires opiate use on a daily [...] days. 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 Jun,High risk medication use (ICD-10 - Z79.899) Jun,Mild episode of recurrent major depressive disorder (ICD-10 - F33.0) Healthy diet, keep active and continue SSRI [employer] Other 03-10-2023 Evaluation note* Encounter Date Diagnosis Assessment Notes Treatment Notes Treatment Clinical Notes May, Type 2 diabetes shelia itus with diabetic polyneuropathy, 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 - E11.42) [employer] Other 02-08-2023 Evaluation note* Encounter Date Diagnosis Assessment Notes Treatment Notes Treatment Clinical Notes Apr, Type 2 diabetes mellitus with hy perglycemia (ICD-10 - E11.65) [employer] Other 02-07-2023 Evaluation note* Encounter Date Diagnosis Assessment Notes Treatment Notes Treatment Clinical Notes Apr, Type 2 diabetes mellitus with hy perglycemia (ICD-10 - E11.65) [employer] Other 01-10-2023 Evaluation note* Encounter Date Diagnosis Assessment Notes Treatment Notes Treatment Clinical Notes Mar, Essential (primary) hypertension (ICD-10 - I10) This patient is instructed to consume a healthy, low-fat, low-salt diet. They are also encouraged to continue exercise to achieve/maintain a normal BMI. Mar,hronic kidney disease, stage 3b (ICD-10 - N18.32) Mar,Type 2 diabetes mellitus with hyperglycemia (ICD-10 - E11.65)This patient is following a comprehensive diabetic treatment plan. They are checking their feet daily for calluses and nonhealing ulcers. They are being seen for yearly dilated eye examinations. Goals: SBP less than 130, LDL less than 100, FBS less than 140, AC and A1C less than 7%. They are checking their BS daily, will which are reviewed at the office visit. Mar,Type 2 diabetes mellitus with diabetic chronic kidney disease (ICD- 10 - E11.22)The patient is instructed on adequate control of hypertension and diabetes, if appropriate. They are also educated on the associated risks of NSAIDs and PPI use with kidney disease. They were instructed on adequate fluid balance and to avoid dehydration. Mar,Type 2 diabetes mellitus with diabetic polyneuropathy (ICD-10 - E11.42)Inspect feet daily for cuts and ulcerations. Fall precautions Mar,Elevated cholesterol (ICD-10 - E78.00)Diet and exercise with continued statin therapy. Mar,one metastases (ICD-10 - C79.51)Close monitoring w/ Oncology. Oxycodone every 6 hours as needed for pain control. 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 assists w/ ADL Mar,Exogenous obesity (ICD-10 - E66.09)This patient has been instructed on a low-fat, high-fiber diet. They are instructed to reduce calories, portion sizes and snacks. It is recommended that they exercise for 30 minutes, 3-5 times weekly. Mar,Multiple myeloma in remission (ICD-10 - C90.01) Mar,Long term (current) use of insulin (ICD-10 - Z79.4) Mar,Lo term (current) use of anticoagulants (ICD-10 - Z79.01)No bleeding complications noted. INstructed to inspect BM daily for discoloration of bleeding [employer] Other [id number] Instructions* Patient Instructions* Anibal Ash MD - 02/11/2022 4:50 PM EST Repeat myeloma labs in 6 months RTC 1 week after to review labs [facility] History of Present illness Narrative* Anibal Ash MD - 02/11/2022 4:44 PM EST Images from the original note were not included. NAME: Rafat Bella [facility] NO[facility] [id number] DATE OF SERVICE: February 11, 2022 [facility] Some elements in this clinic note that are critical to medical decision making have been carefully reviewed and included from a prior clinic note dated: August 03, 2021 ([facility]) Referring Provider: Danilo Clark VIRTUAL VISIT PROGRESS NOTE This is a [...] 02/07/2022. 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 He has no complaints. 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 Still off treatment and still has no evidence of disease. Overall is doing well. M spike remain undetectable and all other labs are stable. Karly is with him. Updated Visit, December 18, [...] clot in January 2016. He went to [facility] for fatigue and diagnosed with a [...] Revlimid. Had hospitalization in January 2017 to [facility] and had a kyphoplasty for compression fracture. [...] ACID BLOOD, CALCIUM IONIZED BLOOD, KAPPA/COTA,FREE,SER Anibal Ash MD, CPE Hematology and Oncology Services Provided at: [place], [place] CC: Danilo Clark MD [address] [facility] [id number] documented in [facility] Nurse [facility]* Madeleine Schilling MA - 02/11/2022 9:07 AM EST Clinical questionnaires incomplete due to Patient was roomed by provider, phone call. Madeleine Schilling MA documented in [facility] History of Present illness Narrative* Anibal Ash MD - 02/05/2022 12:12 PM EST Patient will need to reschedule - he did not draw labs as requested / planned. documented in this [facility] Nurse Note* Kira Dunlap Ma - 02/01/2022 4:14 PM EST Clinical questionnaires incomplete due to Patient was roomed by provider. Kira Dunlap Ma documented in [facility] Note [id number]07-05-2021 [id number] 09-20-2020 [facility] SURGERY Clinical Discharge Summary PERSON INFORMATION Name RAFAT BELLA Age 80 Years 1940 Sex MALE Language Chadian PCP Danilo Clark Marital Status [facility] Service Ambulatory Surgery Acct# Arrival 09/20/2020 10:33:00 Visit Reason SURGERY -RIGHT CARPAL TUNNEL RELEASE Acuity LOS 007 04:12 Address: [address] [place] [address] [address] [facility] [id number] Comment: PROVIDER INFORMATION VITALS INFORMATION Vital Sign [...] needed for pain. tamsulos (more content not included)...[facility] Diagnosis 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 (HCC)- Primary Multiple myeloma, without mention of having achieved remission [facility]* Diagnosis 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) [C90.01 (ICD-10-CM)]- Primary Multiple myeloma in remission documented in this encounter [facility] noteNo [employer] [employer] Other Evaluation note* Diagnosis Parotid mass- Primary Swelling, mass, or lump in head and neck documented in this encounter [facility] Work Phone: Evaluation note* Diagnosis Onset Date Resolution Status Benign prostatic hyperplasia with lower urinary tract symptoms acuteChronic kidney diseaseacuteElevated cholesterolacuteType 2 diabetes mellitus with diabetic polyneuropathyacuteType 2 diabetes mellitus with hyperglycemiaacuteHTN (hypertension)chronicMultiple myelomachronic [facility] Work Phone: Evaluation note* Diagnosis 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 (HCC)- Primary Multiple myeloma, without mention of having achieved remission Flank pain Abdominal pain, unspecified site Mild episode of recurrent major depressive disorder (HCC) Thrombocytopenia (HCC) Thrombocytopenia, unspecified Stage 3b chronic kidney disease (HCC) Stage 3a chronic kidney disease (HCC) [facility]* Diagnosis Onset Date Resolution Status Benign prostatic hyperplasia with lower urinary tract symptoms acuteChronic kidney diseaseacuteElevated cholesterolacuteType 2 diabetes mellitus with diabetic polyneuropathyacuteType 2 diabetes mellitus with hyperglycemiaacuteHTN (hypertension)chronicMultiple myelomachronicAcute chest wall painacuteBack pain of thoracolumbar regionacuteChronic kidney diseaseacute Multiple myelomachronic [facility] Work Phone: Evaluation note* Diagnosis Onset Date Resolution Status Acute chest wall pain acuteBack pain of thoracolumbar regionacuteChronic kidney diseaseacuteMultiple myelomachronicBack pain of thoracolumbar regionacuteBenign prostatic hyperplasia with lower urinary tract symptomsacuteChronic kidney diseaseacuteElevated cholesterolacuteType 2 diabetes mellitus with diabetic polyneuropathyacuteType 2 diabetes mellitus with hyperglycemiaacuteHTN (hypertension)ch[facility]Multiple [facility] Work Phone: Evaluation note* Diagnosis 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 (HCC)- Primary Multiple myeloma, without mention of having achieved remission Stage 3a chronic kidney disease (HCC) Thrombocytopenia (HCC) Thrombocytopenia, unspecified [facility]* Diagnosis 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 (HCC) Multiple myeloma, without mention of having achieved remission [facility]* Diagnosis Diabetes mellitus due to underlying condition with diabetic polyneuropathy, unspecified whether longterm insulin use ([facility]/HCC)- Primary Pain due to onychomycosis of toenails of both feet Acquired deformity of right toe Acquired deformity of left toe [facility]* Diagnosis Onset Date Resolution Status Back pain of thoracolumbar region acuteBenign prostatic hyperplasia with lower urinary tract symptomsacuteChronic kidney diseaseacuteElevated cholesterolacuteType 2 diabetes mellitus with diabetic polyneuropathyacuteType 2 diabetes mellitus with hyperglycemiaacuteHTN (hypertension)chronicMultiple myelomachronicBack pain of thoracolumbar region acuteBenign prostatic hyperplasia with lower urinary tract symptomsacuteChronic kidney diseaseacuteElevated cholesterolacuteMass of left parotid glandacuteType 2 diabetes mellitus with diabetic polyneuropathyacuteType 2 diabetes mellitus with hyperglycemiaacuteHTN (hypertension)chronicMultiple myelomachronic [facility] Work Phone: Evaluation note* Diagnosis Diabetes mellitus due to underlying condition with diabetic polyneuropathy, unspecified whether continuous churn buttermaker insulin use ([facility]/HCC)- Primary Pain due to onychomycosis of toenails of both feet Acquired deformity of right toe Acquired deformity of left toe [facility]* Diagnosis Onset Date Resolution Status Admit Date Back pain of thoracolumbar region acuteJanuary 2024 1:22pmChronic kidney diseaseacuteJanuary 2024 1:22pmElevated cholesterolacuteJanuary 2024 1:22pmMass of left parotid glandacuteJanuary 2024 1:22pmType 2 diabetes mellitus with diabetic polyneuropathyacuteJanuary 2024 1:22pmType 2 diabetes mellitus with hyperglycemiaacuteJanuary 2024 1:22pmHTN (hypertension)chronicJanuary 2024 1:22pmMultiple myelomachronicJanuary 2024 1:22pm [facility] Work Phone: Evaluation note* Diagnosis Mass of ear auricle, left- Primary 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 (HCC) Multiple myeloma, without mention of having achieved remission Thrombocytopenia (HCC) Thrombocytopenia, unspecified Chronic anticoagulation Long-term (current) use of anticoagulants Type 2 diabetes mellitus with diabetic chronic kidney disease, unspecified CKD stage, unspecified whether longterm insulin use ([facility]) Stage 3b chronic kidney disease (HCC) [facility]* Diagnosis Mass of ear auricle, left 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 (HCC) Multiple myeloma, without mention of having achieved remission Thrombocytopenia (HCC) Thrombocytopenia, unspecified Chronic anticoagulation Long-term (current) use of anticoagulants [facility]* Diagnosis Parotid mass- Primary Swelling, mass, or lump in head and neck 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 (HCC) Multiple myeloma, without mention of having achieved remission [facility]* Diagnosis 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 (HCC)- Primary Multiple myeloma, without mention of having achieved remission Parotid mass Swelling, mass, or lump in head and neck [facility]* Diagnosis 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 Parotid mass Swelling, mass, or lump in head and neck documented [facility]* Diagnosis Onset Date Resolution Status Admit Date Back pain of thoracolumbar region acuteApril 2024 1:13pmElevated cholesterolacuteApril 2024 1:13pmMass of left parotid glandacuteApril 2024 1:13pmMedicare annual wellness visit, subsequentacuteApril 2024 1:13pmType 2 diabetes mellitus with diabetic polyneuropathyacuteApril 2024 1:13pmType 2 diabetes mellitus with hyperglycemiaacuteApril 2024 1:13pmHTN (hypertension)chronicApril 2024 1:13pmMultiple myelomachronicApril 2024 1:13pm [facility] Work Phone: Evaluation note* Diagnosis 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 Parotid mass Swelling, mass, or lump in head and neck [facility]* Diagnosis 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 Parotid mass Swelling, mass, or lump in head and neck 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 (HCC) Multiple myeloma, without mention of having achieved remission [facility]* Diagnosis 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 (HCC)- Primary Multiple myeloma, without mention of having achieved remission 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, unspecified CKD stage, unspecified whether longterm insulin use (HCC) documented [facility]* Diagnosis Mucoepidermoid carcinoma (HCC)- Primary Other malignant neoplasm without specification of site [facility]* Diagnosis Palliative care by specialist- Primary Parotid neoplasm Neoplasm of unspecified nature of digestive system 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 (HCC) Multiple myeloma, without mention of having achieved remission 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 [facility]* 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, unspecified CKD stage, unspecified whether continuous churn buttermaker insulin use (HCC) Anticoagulated Long-term (current) use of anticoagulants Stage 3b chronic kidney disease (HCC) 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 (HCC) Multiple myeloma, without mention of having achieved remission Chronic pain due to neoplasm Primary hypertension Unspecified essential hypertension BMI 37.0-37.9, adult Body Mass Index 37.0-37.9, adult 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 * Assessment & Plan Note - Diane Dickey APRN.CNP - 09/08/2024 2:30 PM EDT Associated Problem(s): BMI 37.0-37.9, adult Assessment: Body mass index is 37.24 kg/m . Weight reduction encouraged. * Assessment & Plan Note - Diane Dickey APRN.CNP - 09/08/2024 2:29 PM EDT Associated Problem(s): Primary hypertension Assessment: Managed with med, stable. Date: BP: 09/08/2024 117/71 08/24/2024 132/60 * Assessment & Plan Note - Diane Dickey APRN.CNP - 09/08/2024 2:25 PM EDT Associated Problem(s): Chronic pain due to neoplasm Assessment: Stable with Oxycodone prn, follows with PCP , palliative medicine. * Assessment & Plan Note - Diane Dickey APRN.CNP - 09/08/2024 2:23 PM EDT Associated Problem(s): 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 (HCC) Assessment: Under care of Hematology/ONC Dr. Anibal Ash No current therapies Stable. * Assessment & Plan Note - Diane Dickey APRN.CNP - 09/08/2024 2:22 PM EDT Associated Problem(s): Stage 3b chronic kidney disease (HCC) Assessment: Lab trends stable. GFR 63 mL/min Creatinine Date Value Ref Range Status 08/19/2024 1.15 0.73 - 1.22 mg/dL Final 05/10/2024 1.34 (H) 0.73 - 1.22 mg/dL Final 02/02/2024 1.28 (H) 0.73 - 1.22 mg/dL Final 11/03/2023 1.41 (H) 0.73 - 1.22 mg/dL Final * Assessment & Plan Note - Diane Dickey APRN.CNP - 09/08/2024 2:21 PM EDT Associated Problem(s): Anticoagulated Assessment: Hx PE ( 2015) managed with warfarin (COUMADIN) by PCP - guidance requested * Assessment & Plan Note - Diane Dickey APRN.CNP - 09/08/2024 2:20 PM EDT Associated Problem(s): Type 2 diabetes mellitus with diabetic chronic kidney disease, unspecified CKD stage, unspecified whether longterm insulin use (HCC) Assessment: Managed with Humulin in morning and Bedtime CGM reports FBG 177 Hemoglobin A1C (%) Date Value 08/19/2024 7.5 12/01/2019 7.6 [facility]* 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, unspecified CKD stage, unspecified whether continuous churn buttermaker insulin use (HCC) Anticoagulated Long-term (current) use of anticoagulants Stage 3b chronic kidney disease (HCC) 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 (HCC) Multiple myeloma, without mention of having achieved remission Chronic pain due to neoplasm Primary hypertension Unspecified essential hypertension BMI 37.0-37.9, adult Body Mass Index 37.0-37.9, adult 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 [facility]* Diagnosis Head and neck cancer (HCC)- Primary Malignant neoplasm of head, face, and neck Parotid neoplasm Neoplasm of unspecified nature of digestive system Parotid mass Swelling, mass, or lump in head and neck 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, unspecified CKD stage, unspecified whether continuous churn buttermaker insulin use (HCC) Anticoagulated Long-term (current) use of anticoagulants Stage 3b chronic kidney disease (HCC) 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 (HCC) Multiple myeloma, without mention of having achieved remission Chronic pain due to neoplasm Primary hypertension Unspecified essential hypertension BMI 37.0-37.9, adult Body Mass Index 37.0-37.9, adult 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 documented [facility]* 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, unspecified CKD stage, unspecified whether continuous churn buttermaker insulin use (HCC) Anticoagulated Long-term (current) use of anticoagulants Stage 3b chronic kidney disease (HCC) 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 (HCC) Multiple myeloma, without mention of having achieved remission Chronic pain due to neoplasm Primary hypertension Unspecified essential hypertension BMI 37.0-37.9, adult Body Mass Index 37.0-37.9, adult 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, left documented in this encounter [facility] note* 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, unspecified CKD stage, unspecified whether continuous churn buttermaker insulin use (HCC) Anticoagulated Long-term (current) use of anticoagulants Stage 3b chronic kidney disease (HCC) 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 (HCC) Multiple myeloma, without mention of having achieved remission Chronic pain due to neoplasm Primary hypertension Unspecified essential hypertension BMI 37.0-37.9, adult Body Mass Index 37.0-37.9, adult Palliative care by specialist- Primary 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 (HCC) Multiple myeloma, without mention of having achieved remission Parotid neoplasm Neoplasm of unspecified nature of digestive system 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 [facility]* 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, unspecified CKD stage, unspecified whether longterm insulin use (HCC) Anticoagulated Long-term (current) use of anticoagulants Stage 3b chronic kidney disease (HCC) 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 (HCC) Multiple myeloma, without mention of having achieved remission Chronic pain due to neoplasm Primary hypertension Unspecified essential hypertension BMI 37.0-37.9, adult Body Mass Index 37.0-37.9, adult 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 Cancer of the parotid gland (HCC) [facility]* Diagnosis Diabetes mellitus due to underlying condition with diabetic polyneuropathy, unspecified whether continuous churn buttermaker insulin use (HCC)- Primary Pain due to onychomycosis of toenails of both feet Acquired deformity of right toe Acquired deformity of left toe [facility]* Diagnosis Onset Date Resolution Status Admit Date Back pain of thoracolumbar region acuteJuly 2024 2:15pmElevated cholesterolacuteJuly 2024 2:15pmMass of left parotid glandacuteJuly 2024 2:15pmMucoepidermoid carcinoma of parotid glandacuteJuly 2024 2:15pmType 2 diabetes mellitus with diabetic polyneuropathyacuteJuly 2024 2:15pmType 2 diabetes mellitus with hyperglycemiaacuteJuly 2024 2:15pmHTN (hypertension)chronicJuly 2024 2:15pmMultiple myelomachronicJuly 2024 2:15pm [facility] Work Phone: Evaluation note* 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, unspecified CKD stage, unspecified whether continuous churn buttermaker insulin use (HCC) Anticoagulated Long-term (current) use of anticoagulants Stage 3b chronic kidney disease (HCC) 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 (HCC) Multiple myeloma, without mention of having achieved remission Chronic pain due to neoplasm Primary hypertension Unspecified essential hypertension BMI 37.0-37.9, adult Body Mass Index 37.0-37.9, adult 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, left 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 (HCC) Multiple myeloma, without mention of having achieved remission Stage 3a chronic kidney disease (HCC) 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) Multiple myeloma in remission [facility] N[facility] - Reported* Type Description Date Medical History Obesity Medical HistoryMalignant neoplasm metastatic to boneMedical History Hyperlipidemia type IIMedical HistoryEssential hypertensionMedical HistoryCarpal tunnel syndrome on rightMedical HistoryMultiple myeloma in remissionMedical HistoryComplex regional pain syndrome type 1 of right upper extremityMedical HistoryBenign prostatic hyperplasia with lower urinary tract symptomsMedical HistoryNocturiaMedical HistoryHistory of pulmonary embolismMedical History CholelithiasisSurgical HistoryappendectomySurgical History Procedure:Appendectomy;Disease:Surgical HistoryProcedure:colonoscopies;Disease: Surgical HistorytonsillectomySurgical HistoryProcedure:Rotator Cuff Repair;Disease:Surgical Historyshoulder arthroscopySurgical History Procedure:Tonsillectomy;Disease:Surgical Historyright humerus fixationSurgical HistoryL1 kyphoplasty L101/31/17Hospitalization Historysee aboveHospitalization Historyimmmune system weakness [employer] Other History general Narrative - Reported* Type Description Date Medical History Obesity Medical HistoryMalignant neoplasm metastatic to boneMedical History Hyperlipidemia type IIMedical HistoryEssential hypertensionMedical HistoryCarpal tunnel syndrome on rightMedical HistoryMultiple myeloma in remissionMedical HistoryComplex regional pain syndrome type 1 of right upper extremityMedical HistoryBenign prostatic hyperplasia with lower urinary tract symptomsMedical HistoryNocturiaMedical HistoryHistory of pulmonary embolismMedical History CholelithiasisSurgical HistoryappendectomySurgical History Procedure:Appendectomy;Disease:Surgical HistoryProcedure:colonoscopies;Disease: Surgical HistorytonsillectomySurgical HistoryProcedure:Rotator Cuff Repair;Disease:Surgical Historyshoulder arthroscopySurgical History Procedure:Tonsillectomy;Disease:Surgical Historyright humerus fixationSurgical HistoryL1 kyphoplasty L101/31/17Surgical HistoryFNA left postauricular mass 12/2022Hospitalization Historysee aboveHospitalization Historyimmmune system weakness [employer] Other History of Present illness Narrative* Julian [...] consent was obtained A/P: documented in this [facility] Work Phone: History of Present illness Narrative* Jabier Aldridge, JAGDISH - 05/20/2024 3:00 PM EST Patient: Rafat Bella : 1940 PCP: Danlio Clark MD SUBJECTIVE This is a 84 y.o. male that presents today with a CC of elongated, thick nails. Pt states nails have been elongated and thick for many years and cause pain with ambulation in shoegear. Pt has tried previous treatment with minimal relief. Pt presents today for nail care and treatment. Patient is DM2 Allergies: Allergies Allergen Reactions Lisinopril Penicillins Swelling Swelling of the mouth. Past Medical History: Past Medical History: Diagnosis Date BPH (benign prostatic hyperplasia) Diabetes (CMS/HCC) Gastric ulcer 2016 HLD (hyperlipidemia) (CMS/HCC) HTN (hypertension) (CMS/HCC) Hx pulmonary embolism Metastatic disease (CMS/HCC) Multiple myeloma (CMS/HCC) remission Medications: Current Outpatient Medications: atorvastatin (Lipitor) 20 MG tablet, Take 20 mg by mouth in the morning., Disp: , Rfl: escitalopram (Lexapro) 10 MG tablet, Take 10 mg by mouth in the morning., Disp: , Rfl: gabapentin (Neurontin) 300 MG capsule, Take 300 mg by mouth in the morning and 300 mg in the evening and 300 mg before bedtime., Disp: , Rfl: glimepiride (Amaryl) 1 MG tablet, Take 4 mg by mouth in the morning. Take with meals., Disp: , Rfl: hydrocortisone 2.5 % cream, APPLY TO FACE ONCE A DAY FRIDAY THROUGH FRIDAY OFF ON WEEKENDS (REPEAT NEEDED FOR FLARES), Disp: , Rfl: insulin glargine (Lantus SoloStar) 100 UNIT/ML pen, Inject 10 Units under the skin at bedtime., Disp: , Rfl: linaGLIPtin (Tradjenta) 5 MG tablet, Take 5 mg by mouth in the morning., Disp: , Rfl: losartan (Cozaar) 50 MG tablet, Take 50 mg by mouth in the morning., Disp: , Rfl: oxyCODONE (Oxy-IR) 5 MG immediate release capsule, Take 5 mg by mouth 2 (two) times a day as neededfor severe pain., Disp: , Rfl: tamsulosin (Flomax) 0.4 MG 24 hr capsule, Take 0.4 mg by mouth in the morning., Disp: , Rfl: warfarin (Coumadin) 5 MG tablet, Take 5 mg by mouth. Take as directed per After Visit Summary., Disp: , Rfl: Social History: Social History Socioeconomic History Marital status: Spouse name: Not on file Number of children: Not on file Years of education: Not on file Highest education level: Not on file Occupational History Not on file Tobacco Use Smoking status: Former Current packs/day: 1.00 Types: Cigarettes Passive exposure: Past Smokeless tobacco: Never Vaping Use Vaping status: Never Used Substance and Sexual Activity Alcohol use: Not Currently Drug use: Never Sexual activity: Defer Other Topics Concern Not on file Social History Narrative Not on file Social Drivers of Health Financial Resource Strain: Not on file Food Insecurity: Not on file Transportation Needs: Not on file Physical Activity: Not on file Stress: Not on file Social Connections: Not on file Intimate Partner Violence: Not on file Housing Stability: Not on file ROS: General: denies fever, chills, fatigue, malaise OBJECTIVE LE EXAM: DERM: Elongated thick yellow crumbly nails digits 1 through 10. Negative hair growth with thin shiny atrophic skin bilaterally Rubor to PIPJ regions 2 through 5 digits bilaterally VASC: Positive DP and negative PT pedal pulses NEURO: 5.07 Underwood Bhavya monofilament test diminished to digits and forefoot bilaterally 125Hz tuning fork diminished to 1st MPJ bilaterally ORTHO: Positive pain on palpation to toenails of the left 1,2,3,4,5 toes and right 1,2,3,4,5 toes Flexion deformities 2 through 5 digits bilaterally ASSESSMENT 1. Diabetes mellitus due to underlying condition with diabetic polyneuropathy, unspecified whether continuous churn buttermaker insulin use ([facility]) 2. Pain due to onychomycosis of toenails of both feet 3. Acquired deformity of right toe 4. Acquired deformity of left toe PLAN Discussed proper foot care with patient today. Debride nails in length and thickness digits 1 through 10 Patient educated today on proper diabetic foot care including monitoring feet daily for any signs of infection openings in the skin or irregularities to both feet. Patient had a diabetic neurologicalexam today to both their feet and discussed proper shoe gear. Jabier Aldridge DPM documented in this encounterNOMS HealthcareHistory of Present illness Narrative * Jabier Aldridge DPM - 08/05/2024 2:30 PM EDT Patient: Rafat Bella : 1940 PCP: Danilo Clark, DO SUBJECTIVE This is a 84 y.o. male that presents today with a CC of elongated, thick nails. Pt states nails have been elongated and thick for many years and cause pain with ambulation in shoegear. Pt has tried previous treatment with minimal relief. Pt presents today for nail care and treatment. Patient is DM2 History of hammertoe deformities Allergies: Allergies Allergen Reactions Lisinopril Penicillins Swelling Swelling of the mouth. Past Medical History: Past Medical History: Diagnosis Date BPH (benign prostatic hyperplasia) Diabetes (CMS/HCC) Gastric ulcer 2016 HLD (hyperlipidemia) (CMS/HCC) HTN (hypertension) (CMS/HCC) Hx pulmonary embolism Metastatic disease (CMS/HCC) Multiple myeloma (CMS/HCC) remission Medications: Current Outpatient Medications: atorvastatin (Lipitor) 20 MG tablet, Take 20 mg by mouth in the morning., Disp: , Rfl: escitalopram (Lexapro) 10 MG tablet, Take 10 mg by mouth in the morning., Disp: , Rfl: gabapentin (Neurontin) 300 MG capsule, Take 300 mg by mouth in the morning and 300 mg in the evening and 300 mg before bedtime., Disp: , Rfl: glimepiride (Amaryl) 1 MG tablet, Take 4 mg by mouth in the morning. Take with meals., Disp: , Rfl: hydrocortisone 2.5 % cream, APPLY TO FACE ONCE A DAY FRIDAY THROUGH FRIDAY OFF ON WEEKENDS (REPEAT NEEDED FOR FLARES), Disp: , Rfl: insulin glargine (Lantus SoloStar) 100 UNIT/ML pen, Inject 10 Units under the skin at bedtime., Disp: , Rfl: linaGLIPtin (Tradjenta) 5 MG tablet, Take 5 mg by mouth in the morning., Disp: , Rfl: losartan (Cozaar) 50 MG tablet, Take 50 mg by mouth in the morning., Disp: , Rfl: oxyCODONE (Oxy-IR) 5 MG immediate release capsule, Take 5 mg by mouth 2 (two) times a day as neededfor severe pain., Disp: , Rfl: tamsulosin (Flomax) 0.4 MG 24 hr capsule, Take 0.4 mg by mouth in the morning., Disp: , Rfl: warfarin (Coumadin) 5 MG tablet, Take 5 mg by mouth. Take as directed per After Visit Summary., Disp: , Rfl: Social History: Social History Socioeconomic History Marital status: Spouse name: Not on file Number of children: Not on file Years of education: Not on file Highest education level: Not on file Occupational History Not on file Tobacco Use Smoking status: Former Current packs/day: 1.00 Types: Cigarettes Passive exposure: Past Smokeless tobacco: Never Vaping Use Vaping status: Never Used Substance and Sexual Activity Alcohol use: Not Currently Drug use: Never Sexual activity: Defer Other Topics Concern Not on file Social History Narrative Not on file Social Drivers of Health Financial Resource Strain: Not on file Food Insecurity: Not on file Transportation Needs: Not on file Physical Activity: Not on file Stress: Not on file Social Connections: Not on file Intimate Partner Violence: Not on file Housing Stability: Not on file ROS: General: denies fever, chills, fatigue, malaise OBJECTIVE LE EXAM: DERM: Elongated thick yellow crumbly nails digits 1 through 10. Negative hair growth with thin shiny atrophic skin bilaterally Rubor to PIPJ regions 2 through 5 digits bilaterally VASC: Positive DP and negative PT pedal pulses NEURO: 5.07 [employer]wood Bhavya monofilament test diminished to digits and forefoot bilaterally 125Hz tuning fork diminished to 1st MPJ bilaterally ORTHO: Positive pain on palpation to toenails of the left 1,2,3,4,5 toes and right 1,2,3,4,5 toes Flexion deformities 2 through 5 digits bilaterally ASSESSMENT 1. Diabetes mellitus due to underlying condition with diabetic polyneuropathy, unspecified whether continuous churn buttermaker insulin use ([facility]) 2. Pain due to onychomycosis of toenails of both feet 3. Acquired deformity of right toe 4. Acquired deformity of left toe PLAN Discussed proper foot care with patient today. Debride nails in length and thickness digits 1 through 10 Patient educated today on proper diabetic foot care including monitoring feet daily for any signs of infection openings in the skin or irregularities to both feet. Patient had a diabetic neurologicalexam today to both their feet and discussed proper shoe gear. Jabier Aldridge DPM documented in this encounterNOC[facility] Discharge instructions Ambulatory Orders* Referral to Orthopedic Surgery Location: [facility] Work Phone: Reason for referral (narrative)* Diagnostic Procedure Only (Routine) - Additional Clinical Info NeededSpecialtyDiagnoses / ProceduresReferred By ContactReferred To ContactMOLECULAR & FUNCTIONAL IMAGING Diagnoses 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 (HCC) Procedures NM PET/CT WHOLE BODY SUBSEQUENT PET IMAGING FOR CT ATTENUATION WHOLE BODY Anibal Ash MD [address] [place] [address] [place] [address] Molecular & Functional Imaging [address] [place] [address] Referral IDStatusReasonStart DateExpiration DateVisits RequestedVisits [id number] Clinical Info Needed Auto-Generated Referral / [facility] for referral (narrative)* Diagnostic Procedure Only (Routine) - ClosedSpecialtyDiagnoses / ProceduresReferred By ContactReferred To ContactMOLECULAR & FUNCTIONAL IMAGING Diagnoses 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 (HCC) Procedures NM PET/CT WHOLE BODY SUBSEQUENT PET IMAGING FOR CT ATTENUATION WHOLE BODY Anibal Ash MD [address] [place] [address] [place] [address] Molecular & Functional Imaging [address] [place] [address] Referral IDStatusReasonStart DateExpiration DateVisits RequestedVisits [id number] Auto-Generated Referral / [facility] for referral (narrative)No reason for referral information availablePromedica Flower [facility]tr Work Phone: Refreeman orthopaedics & sports medicine for visit Narrative* Consult, Test, Treat (Routine) - ClosedSpecialtyDiagnoses / ProceduresReferred By ContactReferred To Contact Diagnoses Mucoepidermoid carcinoma (HCC) Procedures REFER TO [facility] PREOPERATIVE OPTIM[facility]ATION OFFICE/OUTPATIENT [facility] 60 MINUTES Gurpreet Pang MD [address] [facility] [address] [place] [id number] Phone: tel: fax: Referral IDStatusReasonStart DateExpiration DateVisits RequestedVisits [id number] PCP [facility]ed [facility]erral [facility] Summary Purpose Family History Relationship Condition Age at Onset Recorded Date/T mayank father Unknown Malignant neoplasmUnknownNot SpecifiedDeceasedUnknownDiabetes mellitusUnknown sisterDeceasedUnknown Relationship Condition Age at Onset Recorded Date/T mayakn father Unknown Malignant neoplasmUnknownmotherDeceasedUnknownDiabetes mellitusUnknownsister DeceasedUnknown Advance Directives Advance Directive Response Recorded Date/ Time Advance Directives Yes January 11:21am Advance Directive Response Recorded Date/ Time Advance Directives Yes January 10:21am Chief Complaint and Reason for Visit Chief Complaint Amb Documentation 3 month follow upReason for VisitBenign prostatic hyperplasia with lower urinary tract symptoms Chronic kidney disease Elevated cholesterol Type 2 diabetes mellitus with diabetic polyneuropathy Type 2 diabetes mellitus with hyperglycemia HTN (hypertension) Multiple myeloma Chief Complaint Amb Documentation 3 month follow up back painReason for VisitBenign prostatic hyperplasia with lower urinary tract symptoms Chronic kidney disease Elevated cholesterol Type 2 diabetes mellitus with diabetic polyneuropathy Type 2 diabetes mellitus with hyperglycemia HTN (hypertension) Multiple myeloma Acute chest wall pain Back pain of thoracolumbar region Chronic kidney disease Multiple myeloma Chief Complaint back pain 3 month follow upReason for VisitAcute chest wall pain Back pain of thoracolumbar region Chronic kidney disease Multiple myeloma Back pain of thoracolumbar region Benign prostatic hyperplasia with lower urinary tract symptoms Chronic kidney disease Elevated cholesterol Type 2 diabetes mellitus with diabetic polyneuropathy Type 2 diabetes mellitus with hyperglycemia HTN (hypertension) Multiple myeloma Chief Complaint 3 month follow up 3 month f/uReason for VisitBack pain of thoracolumbar region Benign prostatic hyperplasia with lower urinary tract symptoms Chronic kidney disease Elevated cholesterol Type 2 diabetes mellitus with diabetic polyneuropathy Type 2 diabetes mellitus with hyperglycemia HTN (hypertension) Multiple myeloma Back pain of thoracolumbar region Benign prostatic hyperplasia with lower urinary tract symptoms Chronic kidney disease Elevated cholesterol 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 Type 2 diabetes mellitus with hyperglycemia HTN (hypertension) Multiple myeloma Chief Complaint Admit Date 3 month f/u April 16, 2024 1 :22pm Reason for Visit Admit Date Back pain of thoracolumbar region Fadyr y 2024 1:22pm Chronic kidney disease April 16 1:22pm Elevated cholesterol April 16, 2024 1:22pm Mass of left parotid gland April 16, 2024 1:22pm Type 2 diabetes mellitus with diabetic p olyneuropathy April 16, 2024 1:22pm Type 2 diabetes mellitus with hyperglyce wayne April 16, 2024 1:22pm HTN (hypertension) April 16, 2024 1 :22pm Multiple myeloma April 16, 2024 1 :22pm Chief Complaint Admit Date Medicare Wellness July 14, 2024 1:1 3pm Reason for Visit Admit Date Back pain of thoracolumbar region July 14, 2024 1:13pm Elevated cholesterol July 14, 2024 1: 13pm Mass of left parotid gland July 14 1:13pm Medicare annual wellness visit, subseque nt July 14, 2024 1:13pm Type 2 diabetes mellitus with diabetic p olyneuropathy July 14, 2024 1:13pm Type 2 diabetes mellitus with hyperglyce wayne July 14, 2024 1:13pm HTN (hypertension) July 14, 2024 1:1 3pm Multiple myeloma July 14, 2024 1:1 3pm Chief Complaint Admit Date Medicare Wellness July 14, 2024 1:1 3pm Amb Documentation September 20, 2024 10:2 2am remove drainage tube September 24, 2024 1:56 pm Chief Complaint Admit Date Amb Documentation September 20, 2024 10:2 2am remove drainage tube September 24, 2024 1:56 pm 3 mo f/u October 15, 2024 2:15 pm Reason for Visit Admit Date Back pain of thoracolumbar region September 222024 2:15pm Elevated cholesterol October 15, 2024 2:1 5pm Mass of left parotid gland October 15 2:15pm Mucoepidermoid carcinoma of parotid glan d October 15, 2024 2:15pm Type 2 diabetes mellitus with diabetic p olyneuropathy October 15, 2024 2:15pm Type 2 diabetes mellitus with hyperglyce wayne October 15, 2024 2:15pm HTN (hypertension) October 15, 2024 2:15 pm Multiple myeloma October 15, 2024 2:15 pm Chief Complaint Admit Date 3 mo f/u October 15, 2024 2:15 pm 3 month follow up January 10, 2025 1 :48pm Reason for Visit Admit Date Back pain of thoracolumbar region September 222024 2:15pm Elevated cholesterol October 15, 2024 2:1 5pm Mucoepidermoid carcinoma of parotid glan d October 15, 2024 2:15pm Type 2 diabetes mellitus with diabetic p olyneuropathy October 15, 2024 2:15pm Type 2 diabetes mellitus with hyperglyce wayne October 15, 2024 2:15pm HTN (hypertension) October 15, 2024 2:15 pm Multiple myeloma October 15, 2024 2:15 pm Back pain of thoracolumbar region Octobe r 2024 1:48pm 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 January 10, 2025 1:48pm Elevated cholesterol January 10, 2025 1:48pm correction (current) use of anticoagulant s January 10, 2025 1:48pm Mucoepidermoid carcinoma of parotid glan d January 10, 2025 1:48pm Opiate analgesic use agreement exists Oc tob2024 1:48pm Type 2 diabetes mellitus with diabetic p olyneuropathy January 10, 2025 1:48pm Type 2 diabetes mellitus with hyperglyce wayne January 10, 2025 1:48pm HTN (hypertension) January 10, 2025 1 :48pm Multiple myeloma January 10, 2025 1 :48pm Additional Source Comments (unrecognized sect ion and content) No Status Records FoundNo Status Records FoundNo Status Records FoundNo Status Records FoundNo Status Records FoundNo Status Records FoundNo Status Records FoundNo Status Records Found INFORMATION SOURCE (unrecogn ized section and content) DATE CREATED AUTHOR 09/15/2017 [facility] DATE CREATED AUTHOR AUTHOR'S ORGANIZ ATION 09/26/2020 [facility] DATE CREATED AUTHOR AUTHOR'S ORGANIZ ATION 08/30/2022 [facility] DATE CREATED AUTHOR AUTHOR'S ORGANIZ ATION 05/20/2023 [facility] DATE CREATED AUTHOR AUTHOR'S ORGANIZ ATION 05/24/2023 [facility] DATE CREATED AUTHOR AUTHOR'S ORGANIZ ATION 10/16/2024 [facility] DATE CREATED AUTHOR AUTHOR'S ORGANMISHA ATION 10/16/2024 [facility] DATE CREATED AUTHOR AUTHOR'S ORGANMISHA ATION 11/26/2024 [facility] Source Comments (unrecognize d section and content) In the event this informatio n is protected by the Federal Confidentiality of Alcohol and Drug Abuse Patient Records regulations: The Federal rules restrict any use of the information to criminally investigate or prosecute any alcohol or drug abuse patient.[facility] CenterIn the event this information is protected by the Federal Confidentiality of Alcohol and Drug Abuse Patient Records regulations: The Federal rules restrict any use of the information to criminally investigate or prosecute any alcohol or drug abuse patient.[facility] CenterIn the event this information is protected by the Federal Confidentiality of Alcohol and Drug Abuse Patient Records regulations: The Federal rules restrict any use of the information to criminally investigate or prosecute any alcohol or drug abuse patient.[facility] CenterIn the event this information is protected by the Federal Confidentiality of Alcohol and Drug Abuse Patient Records regulations: The Federal rules restrict any use of the information to criminally investigate or prosecute any alcohol or drug abuse patient.[facility] CenterIn the event this information is protected by the Federal Confidentiality of Alcohol and Drug Abuse Patient Records regulations: The Federal rules restrict any use of the information to criminally investigate or prosecute any alcohol or drug abuse patient.[facility] CenterIn the event this information is protected by the Federal Confidentiality of Alcohol and Drug Abuse Patient Records regulations: The Federal rules restrict any use of the information to criminally investigate or prosecute any alcohol or drug abuse patient.[facility] CenterIn the event this information is protected by the Federal Confidentiality of Alcohol and Drug Abuse Patient Records regulations: The Federal rules restrict any use of the information to criminally investigate or prosecute any alcohol or drug abuse patient.[facility] CenterIn the event this information is protected by the Federal Confidentiality of Alcohol and Drug Abuse Patient Records regulations: The Federal rules restrict any use of the information to criminally investigate or prosecute any alcohol or drug abuse patient.[facility] CenterIn the event this information is protected by the Federal Confidentiality of Alcohol and Drug Abuse Patient Records regulations: The Federal rules restrict any use of the information to criminally investigate or prosecute any alcohol or drug abuse patient.[facility] CenterIn the event this information is protected by the Federal Confidentiality of Alcohol and Drug Abuse Patient Records regulations: The Federal rules restrict any use of the information to criminally investigate or prosecute any alcohol or drug abuse patient.[facility] CenterIn the event this information is protected by the Federal Confidentiality of Alcohol and Drug Abuse Patient Records regulations: The Federal rules restrict any use of the information to criminally investigate or prosecute any alcohol or drug abuse patient.[facility] CenterIn the event this information is protected by the Federal Confidentiality of Alcohol and Drug Abuse Patient Records regulations: The Federal rules restrict any use of the information to criminally investigate or prosecute any alcohol or drug abuse patient.[facility] CenterIn the event this information is protected by the Federal Confidentiality of Alcohol and Drug Abuse Patient Records regulations: The Federal rules restrict any use of the information to criminally investigate or prosecute any alcohol or drug abuse patient.[facility] CenterIn the event this information is protected by the Federal Confidentiality of Alcohol and Drug Abuse Patient Records regulations: The Federal rules restrict any use of the information to criminally investigate or prosecute any alcohol or drug abuse patient.[facility] CenterIn the event this information is protected by the Federal Confidentiality of Alcohol and Drug Abuse Patient Records regulations: The Federal rules restrict any use of the information to criminally investigate or prosecute any alcohol or drug abuse patient.[facility] CenterIn the event this information is protected by the Federal Confidentiality of Alcohol and Drug Abuse Patient Records regulations: The Federal rules restrict any use of the information to criminally investigate or prosecute any alcohol or drug abuse patient.[facility] CenterIn the event this information is protected by the Federal Confidentiality of Alcohol and Drug Abuse Patient Records regulations: The Federal rules restrict any use of the information to criminally investigate or prosecute any alcohol or drug abuse patient.[facility] CenterIn the event this information is protected by the Federal Confidentiality of Alcohol and Drug Abuse Patient Records regulations: The Federal rules restrict any use of the information to criminally investigate or prosecute any alcohol or drug abuse patient.[facility] CenterIn the event this information is protected by the Federal Confidentiality of Alcohol and Drug Abuse Patient Records regulations: The Federal rules restrict any use of the information to criminally investigate or prosecute any alcohol or drug abuse patient.[facility] CenterIn the event this information is protected by the Federal Confidentiality of Alcohol and Drug Abuse Patient Records regulations: The Federal rules restrict any use of the information to criminally investigate or prosecute any alcohol or drug abuse patient.[facility] CenterIn the event this information is protected by the Federal Confidentiality of Alcohol and Drug Abuse Patient Records regulations: The Federal rules restrict any use of the information to criminally investigate or prosecute any alcohol or drug abuse patient.[facility] CenterIn the event this information is protected by the Federal Confidentiality of Alcohol and Drug Abuse Patient Records regulations: The Federal rules restrict any use of the information to criminally investigate or prosecute any alcohol or drug abuse patient.[facility] CenterIn the event this information is protected by the Federal Confidentiality of Alcohol and Drug Abuse Patient Records regulations: The Federal rules restrict any use of the information to criminally investigate or prosecute any alcohol or drug abuse patient.[facility] CenterIn the event this information is protected by the Federal Confidentiality of Alcohol and Drug Abuse Patient Records regulations: The Federal rules restrict any use of the information to criminally investigate or prosecute any alcohol or drug abuse patient.[facility] CenterIn the event this information is protected by the Federal Confidentiality of Alcohol and Drug Abuse Patient Records regulations: The Federal rules restrict any use of the information to criminally investigate or prosecute any alcohol or drug abuse patient.[facility] CenterIn the event this information is protected by the Federal Confidentiality of Alcohol and Drug Abuse Patient Records regulations: The Federal rules restrict any use of the information to criminally investigate or prosecute any alcohol or drug abuse patient.[facility] CenterIn the event this information is protected by the Federal Confidentiality of Alcohol and Drug Abuse Patient Records regulations: The Federal rules restrict any use of the information to criminally investigate or prosecute any alcohol or drug abuse patient.[facility] CenterIn the event this information is protected by the Federal Confidentiality of Alcohol and Drug Abuse Patient Records regulations: The Federal rules restrict any use of the information to criminally investigate or prosecute any alcohol or drug abuse patient.[facility] CenterIn the event this information is protected by the Federal Confidentiality of Alcohol and Drug Abuse Patient Records regulations: The Federal rules restrict any use of the information to criminally investigate or prosecute any alcohol or drug abuse patient.[facility] CenterIn the event this information is protected by the Federal Confidentiality of Alcohol and Drug Abuse Patient Records regulations: The Federal rules restrict any use of the information to criminally investigate or prosecute any alcohol or drug abuse patient.[facility] CenterIn the event this information is protected by the Federal Confidentiality of Alcohol and Drug Abuse Patient Records regulations: The Federal rules restrict any use of the information to criminally investigate or prosecute any alcohol or drug abuse patient.[facility] CenterIn the event this information is protected by the Federal Confidentiality of Alcohol and Drug Abuse Patient Records regulations: The Federal rules restrict any use of the information to criminally investigate or prosecute any alcohol or drug abuse patient.[facility] CenterIn the event this information is protected by the Federal Confidentiality of Alcohol and Drug Abuse Patient Records regulations: The Federal rules restrict any use of the information to criminally investigate or prosecute any alcohol or drug abuse patient.[facility] Reason for Visit (unrecogniz ed section and content) ReasonCommentsEstablished PatientReasonCommentsMassBack of earReasonComments Multiple Myeloma6 month follow upReasonCommentsResultsReasonCommentsMultiple MyelomaFollow upReasonCommentsRadiology NMSpecialtyDiagnoses / Procedures Referred By ContactReferred To ContactMOLECULAR & FUNCTIONAL IMAGING Diagnoses 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 (HCC) Procedures NM PET/CT WHOLE BODY SUBSEQUENT PET IMAGING FOR CT ATTENUATION WHOLE BODY Anibal Ash MD [address] [place] [address] [place] [address] Molecular & Functional Imaging [address] [id number] Referral IDStatusReasonStart DateExpiration DateVisits RequestedVisits [id number] Auto-Generated Referral /[id number] CareNon dm nail careReasonComments Multiple Myeloma3 month follow upReasonCommentsMultiple MyelomaFollow upReason CommentsDM Foot CareDm nail careReasonCommentsRadiology CTSpecialtyDiagnoses / ProceduresReferred By ContactReferred To ContactCT IMAGING Diagnoses Mass of ear auricle, left 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 (HCC) Thrombocytopenia (HCC) Chronic anticoagulation Procedures CT NECK SOFT TISSUE W IVCON CT SOFT TISSUE NECK W/CONTRAST MATERIAL Anibal Ash MD [address] [place] [address] [place] [address] Phone: tel: fax: [facility] [place] [address] Referral IDStatusReasonStart DateExpiration DateVisits RequestedVisits [id number] Auto-Generated Referral /[id number] AppointmentReasonCommentsNew Patient Parotid massSpecialtyDiagnoses / ProceduresReferred By ContactReferred To ContactEnt - Otolaryngology Diagnoses Parotid mass Procedures CONSULT TO ENT OFFICE/OUTPATIENT [facility] 60 MINUTES Anibal Ash MD [address] [place] [address] [place] [address] Phone: tel: fax: Referral IDStatusReasonStart DateExpiration DateVisits RequestedVisits [id number] PCP Requested Referral /[id number] [id number]- [place] Initial ConsultReasonCommentsENT Path resultsReasonCommentsFollow UpFollow up ReasonCommentsMultiple MyelomaReasonCommentsPalliative CareConsultSpecialty Diagnoses / ProceduresReferred By ContactReferred To ContactHospice & Palliative Medicine Diagnoses Parotid neoplasm Parotid mass Procedures CONSULT TO PALLIATIVE CARE OFFICE/OUTPATIENT [facility] MDM 60 MINUTES Gurpreet Pang MD [address] [place] [address] Phone: tel: fax: Referral IDStatusReasonStart DateExpiration DateVisits RequestedVisits [id number] PCP Requested Referral /[id number] Gen RMPReasonCommentsAnticoagulation Follow UpReasonCommentsOpened In ErrorReasonOnset DateCommentsSimulation Request Form08/18/2024SpecialtyDiagnoses / ProceduresReferred By ContactReferred To ContactRadiation Oncology Diagnoses Parotid neoplasm Parotid mass Procedures RAD/ONC CONSULT OFFICE/OUTPATIENT [facility] MDM 60 MINUTES Gurpreet Pang MD [address] [place] [address] Phone: tel: fax: Referral IDStatusReasonStart DateExpiration DateVisits RequestedVisits [id number] PCP Requested Referral [id number] QuestionReasonCommentsPalliative Care ReasonCommentsFollow UpPost opReasonCommentsDM Foot Care Care Teams (unrecognized sec tion and content) Team Status: Active Member Role Status Dates Danilo Clark DO Primary Care Provider Active Team Status: Active Member Role Status Dates Danilo Clark DO Primary Care Provider Active Start: August 19, 2024 Raghu Patel ProviderActiveStart: August 19, 2024 Team Status: Active Member Role Status Dates Danilo Clark DO Primary Care Provider Active Start: September 08, 2024 Raghu Manning ProviderActiveStart: September 08, 2024 Team Status: Active Member Role Status Dates Danilo Clark DO Primary Care Provider Active Start: September 17, 2024 Raghu Manning ProviderActiveStart: September 17, 2024 Team Status: Active Member Role Status Dates Danilo Clark DO Primary Care Provider Active Start: September 18, 2024 Raghu Manning ProviderActiveStart: September 18, 2024 Team Status: Active Member Role Status Dates Danilo Clark DO Primary Care Provider Active Start: September 19, 2024 Gurpreet Pang MDAttending ProviderActiveStart: September 19, 2024 Team Status: Active Member Role Status Dates Danilo Clark DO Primary Care Provider Active Start: September 20, 2024 Renee Dean CMAAttending ProviderActiveStart: September 20, 2024 Team Status: Inactive Member Role Status Dates Danilo Clark DO Primary Care Provider Active Start: September 24, 2024 End: September 24, 2024Yamel Langley ProviderActiveStart: September 24, 2024 End: September 24, 2024 Team Status: Inactive Member Role Status Dates Danilo Clark DO Primary Care Provider Active Start: October 15, 2024 End: October 15luan Clark DOAttending ProviderActiveStart: October 15, 2024 End: October 15, 2024 Team Status: Inactive Member Role Status Dates Danilo Clark DO Primary Care Provider Active Start: July 14, 2024 End: July 14luan Clark DOAttending ProviderActiveStart: July 14, 2024 End: July 14, 2024 Team Status: Active Member Role Status Dates Danilo Clark DO Primary Care Provider Active Start: July 16, 2024 Danilo Clark DOAttscotty ProviderActiveStart: July 16, 2024 Team MemberRelationshipSpecialtyStart DateEnd Date Danilo Clark DO PCP - GeneralInternal Medicine10/29/16Team MemberRelationshipSpecialtyStart Date End Date Danilo Clark DO PCP - GeneralInternal Medicine10/29/16 Team Status: Active Member Role Status Dates Danilo Clark DO Primary Care Provider Active Start: May 26, 2023 Duarte Godinez ProviderActiveStart: May 26, 2023 Team Status: Inactive Member Role Status Dates Danilo Clark DO Primary Care Provide r, Attending Provider Active Start: July 04, 2023 End: July 04, 2023Team MemberRelationshipSpecialtyStart DateEnd Date Danilo Clark DO PCP - GeneralInternal Medicine10/29/16 Team Status: Active Member Role Status Dates Danilo Clark , DO Primary Care Provide r, Attending Provider Active Start: July 11, 2023 Team Status: Active Member Role Status Dates Danilo Clark , DO Primary Care Provide r, Attending Provider Active Start: July 14, 2023 Team Status: Active Member Role Status Dates Danilo Clark , DO Primary Care Provider Active Start: August 04, 2023 Anibal Ash MDAttending ProviderActiveStart: August 04, 2023 Team Status: Inactive Member Role Status Dates Danilo Clark , DO Primary Care Provide r, Attending Provider Active Start: August 15, 2023 End: August 15, 2023 Team Status: Active Member Role Status Dates Danilo Clark , DO Primary Care Provide r, Attending Provider Active Start: August 20, 2023 Team MemberRelationshipSpecialtyStart DateEnd Date Danilo Clark DO PCP - GeneralInternal [facility]10/29/16 Team Status: Active Member Role Status Dates Danilo Clark DO Primary Care Provide r, Attending Provider Active Start: October 16, 2023 Team Status: Inactive Member Role Status Dates Danilo Clark , DO Primary Care Provide r, Attending Provider Active Start: October 17, 2023 End: October 17, 2023Team MemberRelationshipSpecialtyStart DateEnd Date Danilo Clark DO PCP - GeneralInternal Medicine10/29/16Team MemberRelationshipSpecialtyStart Date End Date Danilo Clark DO PCP - GeneralInternal Medicine10/29/16Team MemberRelationshipSpecialtyStart Date End Date Danilo Clark MD [address] [place] [id number] PCP - GeneralInternal Uuwwolfd30/3/23Team MemberRelationshipSpecialtyStart Date End Date Danilo Clark MD [address] [place] [id number] PCP - [facility]01/24/23 Team Status: Active Member Role Status Dates Danilo Clark DO Primary Care Provider Active Start: November 03, 2023 Anibal Ash , MARCUSttending ProviderActiveStart: November 03, 2023 Team Status: Inactive Member Role Status Dates Danilo Clark DO Primary Care Provide r, Attending Provider Active Start: January 12, 2024 End: January 12, 2024Team MemberRelationshipSpecialtyStart DateEnd Date Danilo Clark DO PCP - [facility]10/29/16Team MemberRelationshipSpecialtyStart Date End Date Danilo Clark MD [address] [place] [id number] PCP - [facility]01/24/23 Team Status: Active Member Role Status Dates Danilo Clark DO Primary Care Provider Active Start: February 02, 2024 Anibal Ash , Calvinending ProviderActiveStart: February 02, 2024 Team Status: Inactive Member Role Status Dates Danilo Clark DO Primary Care Provide r, Attending Provider Active Start: April 16, 2024 End: April 16, 2024Team MemberRelationshipSpecialtyStart DateEnd Date Danilo Clark DO PCP - GeneralInternal Medicine10/29/16Team MemberRelationshipSpecialtyStart Date End Date Danilo Clark DO [facility] - [facility]Flag[facility]ern[facility]10/29/16Team MemberRelationshipSpecialtyStart Date End Date Danilo Clark DO PCP - GeneralInternal Medicine10/29/16Team MemberRelationshipSpecialtyStart Date End Date Danilo Clark DO PCP - [facility]Flag[facility]ern[facility]10/29/16 Team Status: Active Member Role Status Dates Danilo Clark DO Primary Care Provider Active Start: May 10, 2024 Idalmis Basilio APRN [employer]IOR SYSTEMS PROGRAMMER-CAttending ProviderActiveStart: May 10, 2024 Team Status: Inactive Member Role Status Dates Danilo Clark DO Primary Care Provide r, Attending Provider Active Start: July 14, 2024 End: July 14, 2024Team MemberRelationshipSpecialtyStart DateEnd Date Danilo Clark DO PCP - [facility]10/29/16Team MemberRelationshipSpecialtyStart Date End Date Danilo Clark DO PCP - [facility]10/29/16Team MemberRelationshipSpecialtyStart Date End Date Danilo Clark DO [address] [place] [address] PCP - [facility]Flag[facility] Centernal Tzfxdumc56/3/23Team MemberRelationshipSpecialtyStart Date End Date Danilo Clark DO [address] [place] [address] PCP - [facility]Flag[facility] Centern[facility] Xhcknjkk32/3/23Team MemberRelationshipSpecialtyStart Date End Date Danilo Clark DO PCP - GeneralInternal [facility]10/29/16Team MemberRelationshipSpecialtyStart Date End Date Danilo Clark, DO PCP - [facility]10/29/16 MemberRelationshipSpecialtyStart Date End Date Danilo Clark, DO PCP - [facility]10/29/16 MemberRelationshipSpecialtyStart Date End Date Danilo Clark, DO PCP - [facility]10/29/16 MemberRelationshipSpecialtyStart Date End Date Danilo Clark DO PCP - [facility]10/29/16 MemberRelationshipSpecialtyStart Date End Date Danilo Clark DO PCP - [facility]10/29/16 MemberRelationshipSpecialtyStart Date End Date Danilo Clark DO PCP - [facility]10/29/16 MemberRelationshipSpecialtyStart Date End Date Danilo Clark DO PCP - [facility]10/29/16 MemberRelationshipSpecialtyStart Date End Date Danilo Clark DO PCP - [facility]10/29/16am MemberRelationshipSpecialtyStart Date End Date Danilo Clark DO PCP - [facility]10/29/16Team MemberRelationshipSpecialtyStart Date End Date Danilo Clark DO PCP - [facility]10/29/16Team MemberRelationshipSpecialtyStart Date End Date Danilo Clark DO PCP - [facility]10/29/16 Team Status: Active Member Role/Relationship Status Dates Danilo Clark DO Primary Care Provider Active Team Status: Inactive Member Role/Relationship Status Dates Danilo Clark DO Primary Care Provider Active Start: October 15, 2024 End: October 15luan Clark DOAttending ProviderActiveStart: October 15, 2024 End: October 15, 2024 Team Status: Active Member Role/Relationship Status Dates Danilo Clark DO Primary Care Provider Active Start: November 17, 2024 Anibal Ash MDAttending ProviderActiveStart: November 17, 2024 Team Status: Inactive Member Role/Relationship Status Dates Danilo Clark DO Primary Care Provider Active Start: January 10, 2025 End: January 10luan Clark , DOAttending ProviderActiveStart: January 10, 2025 End: January 10, 2025 Goals (unrecognized section and content) Goals may [...] BE BASED ON THE PRIMARY CLINICAL RECORDS. [facility]. provides no warranty or guarantee of the accuracy or completeness of information in this document.
--- NOTE | 2025-01-12 16:43 | ECG_ITS ---
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 Measurements Intervals [place] Rate: 63 P: 30 NV: 254 QRS: 51 QRSD: 86 T: 80 QT: 386 QTc: 394 Interpretive Statements 1100 Sinus rhythm 2231 First degree AV block 9150 abnormal ECG Compared to ECG 02/08/2019 08:19:49 First degree AV block now present Sinus tachycardia no longer present Ventricular premature complex(es) no longer present Electronically Signed On 01-13-2025 0:04:40 EDT by CALI SAMUELS M.D.
--- NOTE | 2025-01-12 16:44 | ED.GENADUL1 ---
HPI HPI - General Adult General Chief complaint: Chest Pain Stated complaint: CHEST PAINS Time Seen by Provider: 01/12/25 16:38 Source: patient and family Mode of arrival: Wheelchair History of Present Illness HPI narrative: 84-year-old male presents for chest pain and shortness of breath. It started about 2:00 in the afternoon, 2-1/2 hours ago. It is in the middle part of his chest that is worse when he lays down flat. He has no history of CAD, CHF, DVT, or PE. He is never had the symptoms before. No fever or cough. He was reluctant to come into the hospital but eventually his was able to convince him to come. Related Data Home Medications ?Medication ?Instructions ?Recorded ?Confirmed ascorbic acid (vitamin C) 500 mg 500 mg PO DAILY 01/13/23 01/12/25 tablet atorvastatin 20 mg tablet 20 mg PO QPM 01/13/23 01/12/25 escitalopram oxalate 10 mg tablet 10 mg PO DAILY 01/13/23 01/12/25 gabapentin 100 mg capsule 100 mg PO TID 01/13/23 01/12/25 losartan 50 mg tablet 75 mg PO DAILY 01/13/23 01/12/25 multivitamin 1 tab PO DAILY 01/13/23 01/12/25 tamsulosin 0.4 mg capsule 0.4 mg PO DAILY 01/13/23 01/12/25 warfarin 2.5 mg tablet 2.5 mg PO .6 days a week 01/13/23 01/12/25 warfarin 5 mg tablet 5 mg PO QWEEK 01/13/23 01/12/25 insulin NPH-regular 70-30 U-100 25 unit subcut DAILY 01/12/25 01/12/25 insulin 100 unit/mL subcutaneous pen (Humulin 70/30 U-100 KwikPen) insulin NPH-regular 70-30 U-100 45 unit subcut QAM 01/12/25 01/12/25 insulin 100 unit/mL subcutaneous pen (Humulin 70/30 U-100 KwikPen) Allergies Allergy/AdvReac Type Severity Reaction Status Date / Time Penicillins Allergy edema Verified 01/12/25 16:30 Review of Systems ROS Narrative A ten point review of systems is negative except as noted above. [facility] Medical History (Updated 01/12/25 @ 18:20 by Stiven Hinson MD) Skin cancer ?C44.90 - Unspecified malignant neoplasm of skin, unspecified (ICD-10) BPH (benign prostatic hyperplasia) ?N40.0 - Benign prostatic hyperplasia without lower urinary tract symptoms (ICD-10) High cholesterol ?E78.00 - Pure hypercholesterolemia, unspecified (ICD-10) HTN (hypertension) ?I10 - Essential (primary) hypertension (ICD-10) Psoriasis ?L40.9 - Psoriasis, unspecified (ICD-10) Multiple myeloma ?C90.00 - 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 (ICD-10) GI bleed ?K92.2 - Gastrointestinal hemorrhage, unspecified (ICD-10) Diabetes ?E11.9 - Type 2 diabetes mellitus without complications (ICD-10) Surgical History (Updated 01/17/23 @ 10:11 by Litzy Ryan) S/P fine needle aspiration ?Z98.890 - Other specified postprocedural states (ICD-10) Status post surgical removal of malignant neoplasm of skin ?Z98.890 - Other specified postprocedural states (ICD-10) History of surgery on arm ?Z98.890 - Other specified postprocedural states (ICD-10) History of tonsillectomy and adenoidectomy ?Z90.89 - Acquired absence of other organs (ICD-10) H/O kyphoplasty ?Z98.890 - Other specified postprocedural states (ICD-10) H/O colonoscopy ?Z98.890 - Other specified postprocedural states (ICD-10) Social History Little interest or pleasure in doing things: not at all Feeling down, depressed, or hopeless: not at all Exam Narrative Exam Narrative: Nurses note and vital signs reviewed General:The patient appears well and in no apparent distress.Patient is resting comfortably on cart. Skin:Warm, dry, no pallor noted.There is no rash noted. Head:Normocephalic, atraumatic Eye: Normal conjunctiva, no drainage Ears, Nose, Mouth, and Throat: oral mucosa is moist. Nares patent. Cardiovascular:Regular Rate and Rhythm Respiratory:Patient is in no distress, no accessory muscle use, lungs are clear to auscultation, no wheezing, rales or rhonchi Back:non-tender GI: Soft and nontender Musculoskeletal: The patient has no evidence of calf tenderness, no pitting edema, symmetrical pulses noted bilaterally Neurological:A&O, normal speech Psychiatric:Cooperative Constitutional Vital Signs, click to edit/add: Last Vital Signs Temp 98.5 F 01/12/25 16:34 Pulse 82 01/12/25 18:03 Resp 18 01/12/25 18:03 BP 145/65 H 01/12/25 18:03 Pulse Ox 94 L 01/12/25 18:11 O2 Del Method Nasal Cannula 01/12/25 18:11 O2 Flow Rate 2 01/12/25 18:11 Course Vital Signs Vital signs: Vital Signs Temperature 98.5 F 01/12/25 16:34 Pulse Rate 63 01/12/25 16:34 Respiratory Rate 22 H 01/12/25 16:34 Blood Pressure 173/99 H 01/12/25 16:34 Pulse Oximetry 95 01/12/25 16:34 Oxygen Delivery Method Room Air 01/12/25 16:34 Temperature 98.5 F 01/12/25 16:34 Pulse Rate 82 01/12/25 18:03 Respiratory Rate 18 01/12/25 18:03 Blood Pressure 145/65 H 01/12/25 18:03 Pulse Oximetry 94 L 01/12/25 18:11 Oxygen Delivery Method Nasal Cannula 01/12/25 18:11 Oxygen Delivery Flow Rate 2 01/12/25 18:11 Medical Decision Making MDM Narrative Medical decision making narrative: The patient has right lower lobar pulmonary embolism. Chronicity is uncertain. He also appears to have CHF and was given IV Lasix. He has no history of PE or CHF and he is on Coumadin and is therapeutic with an INR of 2.4. He was given IV Lasix. Case is discussed with Dr. Buchanan who will manage his anticoagulation. We will hold off on heparin for now. Treatment diagnosis and disposition were discussed with the patient and his . Differential Diagnosis Differential Diagnosis: PE, CHF, SC, pneumonia, pneumothorax Lab Data Lab results reviewed: Yes I reviewed the patient's lab results Labs: Lab Results 01/12/25 Range/Units 16:57 WBC 10.8 (4.0-11.0) 10^3/uL RBC 4.56 L (4.70-6.10) 10^6/uL Hgb 14.1 (14.0-18.0) g/dL Hct 41.9 L (42.0-54.0) % MCV 91.9 (80.0-94.0) fL MCH 30.9 (25.9-34.0) pg MCHC 33.7 (29.9-35.2) g/dL RDW 12.7 (11.0-15.0) % Plt Count 174 (150-450) 10^3/uL MPV 9.5 (9.5-13.5) fL Neut % (Auto) 77.6 H (43.0-75.0) % Lymph % (Auto) 11.3 L (20.5-60.0) % [place] % (Auto) 9.3 (1.7-12.0) % Eos % (Auto) 1.1 (0.9-7.0) % Baso % (Auto) 0.3 (0.2-2.0) % Neut # (Auto) 8.4 H (1.4-6.5) 10^3/uL Lymph # (Auto) 1.2 (1.2-3.8) 10^3/uL [place] # (Auto) 1.0 H (0.3-0.8) 10^3/uL Eos # (Auto) 0.1 (0.0-0.7) 10^3/uL Baso # (Auto) 0.0 (0.0-0.1) 10^3/uL Abs Immat Gran (auto) 0.04 H (0.00-0.03) 10^3/uL Imm/Tot Granulo (auto) 0.4 (0.0-0.5) % PT 23.5 H (9.0-11.6) sec INR 2.42 APTT 38.8 H (22.3-36.2) sec Sodium 139 (136-145) mmol/L Potassium 4.4 (3.5-5.1) mmol/L Chloride 104 (98-107) mmol/L Carbon Dioxide 26.5 (21.0-32.0) mmol/L Anion Gap 12.9 BUN 18.0 (7.0-18.0) mg/dL Creatinine 1.41 H (0.70-1.30) mg/dL Est GFR ( Amer) 58 L (>=60 mL/min/1.73m^2) Est GFR (Non-Af Amer) 48 L (>=60 mL/min/1.73m^2) BUN/Creatinine Ratio 12.8 Glucose 171 H (74-106) mg/dL Calcium 9.6 (8.5-10.1) mg/dL Troponin I High Sens 6.5 (4.0-76.1) pg/mL NT-Pro-B Natriuret Pep 212.0 (<=1800.0) pg/mL Imaging Data Chest x-ray: Radiologist's impression: ITS Impressions Chest X-Ray 01/12/25 17:10 IMPRESSION: Findings worrisome for CHF and edema. Impression dictated by: Armando Andrea M.D. 01/12/2025 5:58 PM Dictation Location: [facility] Electronically authenticated by: [id number] Y Date: 01/12/2025 17:58 Chest CTA 01/12/25 17:48 IMPRESSION: Right lower lobar pulmonary embolism. No saddle embolism or heart strain Cardiomegaly and coronary disease. Scattered lucent lesions suggest multiple myeloma. Discussed with Dr. Hinson over telephone 1803 hours 01/12/2025 Impression dictated by: Armando Andrea M.D. 01/12/2025 6:04 PM Dictation Location: [facility] Electronically authenticated by: [id number] Y Date: 01/12/2025 18:04 ECG Data Attestation: I personally reviewed and interpreted this ECG as follows: (EKG on my interpretation shows sinus rhythm with a first-degree block and a rate of 63 and no acute change.) Critical Care Time Critical Care Time Critical Care Time: Yes Total Critical Care Time: 35 Attestation: Due to the high probability of sudden and clinically significant deterioration in the patient's condition he/she required the highest level of my preparedness to intervene urgently I provided critical care time including documentation time, medication orders and management, reevaluation, vital sign assessment, ordering and reviewing of lab tests, ordering and reviewing of x-ray studies, and admission orders. Aggregate critical care time is 35 minutes including only time during which I was engaged in work directly related to his/her care and did not include time spent treating other patients simultaneously. Discharge Plan Discharge Chief Complaint: Chest Pain Clinical Impression: Pulmonary embolism, Congestive heart failure Patient Disposition: Admitted As Inpatient Time of Disposition Decision: 18:19 Condition: Fair
[2025-01-12 17:03] LABS: Hematocrit 41.9 % (42.0-54.0); Hemoglobin 14.1 g/dL (14.0-18.0); Immature Granulocytes Abs Auto 0.04 10^3/uL (0.00-0.03); Immature Granulocytes Pct Auto 0.4 % (0.0-0.5); Lymphocytes Absolute Auto 1.2 10^3/uL (1.2-3.8); Mean Corpuscular HGB Conc 33.7 g/dL (29.9-35.2); Mean Corpuscular Hemoglobin 30.9 pg (25.9-34.0); Mean Corpuscular Volume 91.9 fL (80.0-94.0); Platelet Count 174 10^3/uL (150-450); Red Blood Count 4.56 10^6/uL (4.70-6.10); White Blood Count 10.8 10^3/uL (4.0-11.0)
--- NOTE | 2025-01-12 17:10 | XR_ITS ---
[address] [address] Patient Name: CARLEY BELLA MRN: [id number] date: 1940 Sex: M Assigned Patient Location: ED.MAIN Current Patient Location: ED.MAIN Accession/Order Number: [id number] Exam Date: 01/12/2025 17:05 Report Date: 01/12/2025 17:58 At the request of: COREY JOHNSON MD Procedure: XR chest 1V PA CHEST: CLINICAL HISTORY: Chest pain, short of breath COMPARISON: 08/15 2023 Low lung volumes. Mildly enlarged cardiac mediastinal silhouette. Perihilar congestion and interstitial opacities suggestive interstitial pulmonary edema. Bibasilar atelectasis and/or effusions. XR/XR chest 1V IMPRESSION: Findings worrisome for CHF and edema. Impression dictated by: Armando Andrea M.D. 01/12/2025 5:58 PM Dictation Location: [place] [address] Electronically authenticated by: [id number] Y Date: 01/12/2025 17:58
[2025-01-12 17:21] LABS: Anion Gap 12.9; Blood Urea Nitrogen 18.0 mg/dL (7.0-18.0); Calcium 9.6 mg/dL (8.5-10.1); Carbon Dioxide 26.5 mmol/L (21.0-32.0); Chloride 104 mmol/L (98-107); Estimated GFR (African America 58 (>=60 mL/min/1.73m^2); Estimated GFR (Non-African Ame 48 (>=60 mL/min/1.73m^2); Glucose 171 mg/dL (74-106); Potassium 4.4 mmol/L (3.5-5.1); Sodium 139 mmol/L (136-145)
[2025-01-12 17:24] LABS: INR 2.42; NT Pro B Type Natriuretic Pept 212.0 pg/mL (<=1800.0); Partial Thromboplastin Time 38.8 sec (22.3-36.2); Prothrombin Time 23.5 sec (9.0-11.6)
--- NOTE | 2025-01-12 17:48 | CT_ITS ---
[address] [address] Patient Name: CARLEY BELLA MRN: [id number] date: 1940 Sex: M Assigned Patient Location: ER Current Patient Location: [facility] Accession/Order Number: [id number] Exam Date: 01/12/2025 17:35 Report Date: 01/12/2025 18:04 At the request of: COREY JOHNSON MD Procedure: CT angio chest CTA chest CLINICAL DATA: Chest pain/shortness breath Comparison chest x-ray 01/12/2025. TECHNIQUE: Intravenous contrast-enhanced CT angiography of the chest was performed. Axial, sagittal, coronal, and 3D-dimensional reconstructions were created and reviewed. These CT exams were performed using one or more of the following dose reduction techniques: Automated exposure control, adjustment of the mA and/or kV according to patient size, or use of iterative reconstruction technique. . FINDINGS: Motion artifact. Cardiomegaly. Coronary artery disease. Core aortic vascular calculations. This motion through the pulmonary arterial tree. No central embolism identified. There is however a right lower lobar branch pulmonary embolism. No heart strain. Subpleural interstitial thickening involving lungs. Minimal hypoventilatory change. No effusion or pneumothorax. Multilevel degenerative changes of the thoracic spine. Scattered disease throughout the osseous structures noted could raise possibility for multiple myeloma or other process. CT/CT angio chest IMPRESSION: Right lower lobar pulmonary embolism. No saddle embolism or heart strain Cardiomegaly and coronary disease. Scattered lucent lesions suggest multiple myeloma. Discussed with Dr. Johnson over telephone 1803 hours 01/12/2025 Impression dictated by: Armando Andrea M.D. 01/12/2025 6:04 PM Dictation Location: [place] [address] Electronically authenticated by: [id number] Y Date: 01/12/2025 18:04
[2025-01-12] MEDS: FUROSEMIDE 20 MG/2 ML VIAL IVP (19:12)
--- OUTSIDE RECORDS SUMMARY | 2025-01-12 19:57 | XMS_ITS | CCD ---
Author Organization [facility] Care Team Providers Care Cell Reliner Name Role Phone Adamowicz, Shawn Unavailable Unavailable Adamowicz, Shawn Unavailable Unavailable Adamowicz, Shawn Unavailable Unavailable DANILO CLARK~[phone] UNKNOWN Unavailable Unavailable Adamowicz, Shawn Unavailable Unavailable Adamowicz, Shawn Unavailable Unavailable Paulowicz, Shawn Unavailable Unavailable DANILO CLARK~[phone] UNKNOWN Unavailable Unavailable RonnySujit~[phone] UNKNOWN Unavailable Unavailable Danilo Clark DO Primary [...] Care Provider Amber QUIÑONEZ, Danilo Attending Provider [phone] Anibal Ash MD, V Attending Provider [phone] Gurpreet Pang MD Attending Provider [phone] Renee Dean CMA Attending Provider Unavaila bethanie Palmer APRN Shawn Emergency Provider Danilo Clark DO Primary Care Provider [phone] Estela DE LA CRUZ Shawn Emergency Provider Danilo Clark DO Attending Provider JABIER ALDRIDGE Attending Unavailable JABIER ALDRIDGE Attending [...] Care Unavailable GANDARA, MARTHA Attending Unavailable GANDARA, MARTHA Admitting Unavailable BALL, DANILO E Primary Care [...] TypeDate of OnsetReaction(s) FacilityPenicillins (antibiotic) (1 source)PenicillinsDrug Hzgaspa90-57-7633LlnprceuWrurnsyqf Clinic Work Phone: (20 sources)Penicillins; Translations: [PENICILLINS]Drug [id number] Swelling, UnknownSelect [facility] Work Phone: (20 sources)penicillAMINE; Translations: [PENICILLAMINE]Drug Bussnsg28-76-5949 UnknownNoSt[facility] Cl[facility] Other (10 sources)PenicillinsPropensity to adverse reactionsUnknowWaldo Hospital [place] Other (1 source)PenicillinsDrug allergy (disorder)39-28-6130YszGreen [facility] (20 sources)Lisinopril; Translations: [LISINOPRIL]Drug Bpharqf83-86-3675TyugkfcBrecksville VA / Crille HospitalComment on above:Onset Date: 10/23/2012 (18 sources)Penicillin VDrug Uiarjaq76-76-1438Ewpvsvp, Unknown ReactionUniversity Hospitals Geneva Medical Center (10 sources)LisinoprilPropensity to adverse qqtwpfzmy44-49-5306IUQM Healthcare Work Phone: (10 sources)PenicillinsDrug Olylfeo15-48-3221XydgzdetNOYT Healthcare (20 sources)PenicillinsDrug Agvokao34-15-5254ZifqdqyfRzojrcanu Clinic Work Phone: (1 source)LisinoprilDrug Ilodrxo36-72-4106PolkkuwvsUniversity Hospitals Geneva [facility] Repository (1 source)penicillAMINEDrug Vvkqtvx27-16-2945LuaezcedaUniversity Hospitals Geneva [facility] Repository (1 source)PenicillinDrug Lwqaana80-39-5163DuhmdczeaUniversity Hospitals Geneva [facility] Center Repository (1 source)PenicillinsDrug allergy (disorder)85-37-9517FjzukqbxiUniversity Hospitals Geneva [facility] Center Repository Medications Current Medications MedicationDrug Class(es)DatesSig (Normalized)Sig (Original)Accu-Chek Elizabeth Plus - (8 sources)Accu-Chek Elizabeth Plus - USE AND DISCARD 1 TEST STRIP TO CHECK HOME BLOOD SUGAR TWO TIMES A DAY for 90 Activeascorbic acid 4700 mg / polyethylene glycol 3350 616493 mg / potassium chloride 1015 mg / sodium ascorbate 5900 mg / sodium chloride 2690 mg / sodium sulfate 7500 mg powder for oral solution (15 sources)Osmotic Laxative, Vitamin CStart: 77-69-9306qcz-sod mhr-NpGv-EWi-asb-C (MoviPrep) 100-7.5-2.691 gram solution Take by mouth. 0 07/28/2013 ActiveStart: 90-00-8661IqwzEtlv 100 GM as directed Orally 1 for 1 July, Not-Takingatorvastatin 20 mg oral tablet (20 sources)HMG-CoA Reductase InhibitorStart: 08-15-2023 End: 63-68-5828wuun 1 tablet by mouth once daily in the eveningAtorvastatin 20 mg tablet Active 0 .ROUTE .COMPLEX 90 3 August 05, 2024 7:41am TAKE 1 TABLET BY MOUTH ONCE DAILY IN THE EVENING Complies with drug therapyStart: 12-12-2016 End: 76-35-0903hwgo 1 tablet by mouth once dailyAtorvastatin 20 mg Tablet Discontinued 20 MG PO Daily December 12, 2016 12:00am August 15, 2023 8:39am hyperlipidemiaComment on above:Take 20 mg by mouth once daily.Blood-Glucose Meter,Continuous (Dexcom G7 Cloth Printer) misc (5 sources)Start: 46-84-5001Drihf-Glucose Meter,Continuous (Dexcom G7 Cloth Printer) misc Active 0 .ROUTE .COMPLEX January 14, 2024 9:39pm USE AT HOME TO TEST BLOOD SUGAR 4-6 TIMES DAILY WITH SENSORSStart: 70-41-3602Hiwbc-Glucose Meter,Continuous (Dexcom G7 Cloth Printer) misc Active 0 .ROUTE .COMPLEX January 14, 2024 8:39pm USE AT HOME TO TEST BLOOD SUGAR 4-6 TIMES DAILY WITH SENSORS Start: 10-17-2023 End: 48-65-1241Lfcdh-Glucose Meter,Continuous (Dexcom G7 Cloth Printer) misc Discontinued 0 .Route October 17, 2023 12:00am January 14, 2024 9:39pm Use to test home BS 4-6x dailyStart: 10-17-2023 End: 78-91-3843Arlfz-Glucose Meter,Continuous (Dexcom G7 Cloth Printer) misc Discontinued 0 .Route October 16, 2023 11:00pm January 14, 2024 8:39pm Use to test home BS 4-6x dailyStart: 69-92-6361Zfhzn-Glucose Meter,Continuous (Dexcom G7 Cloth Printer) misc Active 0 .Route October 17, 2023 12:00am Use to test home BS 4-6x dailyBlood-Glucose Sensor (Dexcom G7 Sensor) device (16 sources)Start: 51-15-0451Cyfyy-Glucose Sensor (Dexcom G7 Sensor) device Active 0 .ROUTE .COMPLEX 3 February 16, 2024 9:36am Type 2 diabetes mellitus with hyperglycemia [facility] current use of anticoagulant therapy 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 REMOVE AND REPLACE SENSOR EVERY 10 DAYS.Start: 37-44-9925Zawde-Glucose Sensor (Dexcom G7 Sensor) device Active 0 .ROUTE .COMPLEX February 16, 2024 9:36am USE TO TEST BLOOD SUGAR 4-6 TIMES DAILY. REMOVE AND REPLACE SENSOR EVERY 10 DAYS.Start: 43-30-1798Llifo-Glucose Sensor (Dexcom G7 Sensor) device Active 0 .ROUTE .COMPLEX February 16, 2024 8:36am USE TO TEST BLOOD SUGAR 4-6 TIMES DAILY. 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 REMOVE AND REPLACE SENSOR EVERY 10 DAYS.Start: 02-14-2024 End: 32-57-4023Cvsoo-Glucose Sensor (Dexcom G7 Sensor) device Discontinued 0 .ROUTE .COMPLEX February 132:45pm February 16, 2024 9:37am USE TO TEST BLOOD SUGAR 4-6 TIMES DAILY. REMOVE AND REPLACE SENSOR EVERY 10 DAYS.Start: 02-14-2024 End: 71-56-9839Nrhtb-Glucose Sensor (Dexcom G7 Sensor) device Discontinued 0 .ROUTE .COMPLEX February 131:45am February 16, 2024 8:37am USE TO TEST BLOOD SUGAR 4-6 TIMES DAILY. REMOVE AND REPLACE SENSOR EVERY 10 DAYS.Start: 10-17-2023 End: 33-81-4070Jypqu-Glucose Sensor (Dexcom G7 Sensor) device Discontinued 0 .Route 3 October 17, 2023 12:00am February 14, 2024 12:46pm Type 2 diabetes mellitus with hyperglycemia [facility]DC current use of anticoagulant therapy Type 2 diabetes mellitus with hyperglycemia [facility] (current) use of anticoagulants Use to test home BS 4-6x dailyStart: 10-17-2023 End: 29-69-1963Utdyk-Glucose Sensor (Dexcom G7 Sensor) device Discontinued 0 .Route 3 October 17, 2023 12:00am February 14, 2024 12:46pm Use to test home BS 4-6x dailyStart: 10-17-2023 End: 93-98-2616Irzzs-Glucose Sensor (Dexcom G7 Sensor) device Discontinued 0 .Route 3 October 16, 2023 11:00pm February 14, 2024 11:46am Use to test home BS 4-6x dailyStart: 27-69-1192Xauls-Glucose Sensor (Dexcom G7 Sensor) device Active 0 .Route 3 October 17, 2023 12:00am Use to test home BS 4-6x dailyBlood- Glucose,Cloth Printer,Cont (Dexcom G7 Cloth Printer) misc (6 sources)Start: 16-77-5851Acvvo-Glucose,Cloth Printer,Cont (Dexcom G7 Cloth Printer) misc Active 0 .ROUTE .COMPLEX 1 0 January 14, 2024 9:39pm Type 2 diabetes mellitus with hyperglycemia 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 Type 2 diabetes mellitus with hyperglycemia [employer] (current) use of insulin USE AT HOME TO TEST BLOOD SUGAR 4-6 TIMES DAILY WITH SENSORSStart: 62-36-1831Akptm- Glucose,Cloth Printer,Cont (Dexcom G7 Cloth Printer) misc Active 0 .ROUTE .COMPLEX 1 January 1349:39pm USE AT HOME TO TEST BLOOD SUGAR 4-6 TIMES DAILY WITH SENSORSStart: 10-17-2023 End: 72-00-9515Lsxuh-Glucose,Cloth Printer,Cont (Dexcom G7 Cloth Printer) misc Discontinued 0 .Route 1 0 October 17, 2023 12:00am January 14, 2024 9:39pm Type 2 diabetes mellitus with hyperglycemia [facility] current use of insulin 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 Use to test home BS 4-6x dailyStart: 10-17-2023 End: 39-19-9009Szymw-Glucose,Cloth Printer,Cont (Dexcom G7 Cloth Printer) misc Discontinued 0 .Route October 17, 2023 12:00am January 14, 2024 9:39pm Use to test home BS 4-6x dailyDEXCOM G7 CHARGEMASTER ANALYST misc (20 sources)Start: 45-62-4523MLQBHU G7 CHARGEMASTER ANALYST misc USE AT HOME TO TEST BLOOD SUGAR 4-6 TIMES DAILY WITH SENSORS 01/18/2024 Activedoxycycline hyclate 100 mg oral tablet (20 sources)Tetracycline-class DrugStart: 09-19-2024 End: 25-73-6308kgsk 1 tablet by mouth twice dailydoxycycline (VIBRA-TABS) 100 mg tablet Take 1 tablet by mouth two times a day for 7 days. 14 akedon4609/19/2024 09/26/2024 ActiveStart: 04-16-2024 End: 76-01-8758pmco 1 capsule by mouth twice dailyDoxycycline Hyclate 100 mg capsule Discontinued 100 MG PO Twice daily 14 7 0 April 16, 2024 1:00am January 10, 2025 2:04pmStart: 09-09-2017 End: 64-51-5931ntxw 1 tablet by mouth twice dailyDoxycycline Hyclate 100 mg tablet Discontinued 100 MG PO Twice daily 20 10 0 September 09, 2017 12:00am June 04, 2023 9:29amStart: 12-13-2016 End: 72-20-0110rmcj 1 tablet by mouth twice dailyDoxycycline Hyclate 100 mg tablet Discontinued 100 MG PO Twice daily 14 7 0 December 13, 2016 12:00am December 19, 2016 12:00am December 20, 2016 12:04am post-op antibacterial prophylaxisgabapentin 300 mg oral capsule (20 sources)Anti-epileptic AgentStart: 07-28-2023 End: 31-57-8879ajyy 1 capsule by mouth three times dailyGabapentin 300 mg capsule Active 0 .ROUTE .COMPLEX 270 August 23, 2024 10:09am TAKE 1 CAPSULE BY MOUTH THREE TIMES DAILY Complies with drug therapyStart: 62-49-5725pyswnspjje (Neurontin) 100 mg capsule Take by mouth. 0 10/22/2017 ActiveStart: 10-22-2017 End: 18-03-4380bzsa 1 capsule by mouth three times dailyGabapentin 300 mg capsule Discontinued 300 MG PO Three times daily June 04, 2023 12:00am July 28, 2023 1:16pmGABAPENTIN ORAL Take by mouth. ActiveGABAPENTIN ORAL Take by mouth. 0 ActiveComment on above:Take by mouth.hydrocortisone 25 mg/ml topical cream (11 sources)CorticosteroidStart: 42-97-6327ujrkcjanxludkp 2.5 % cream APPLY TO FACE ONCE A DAY FRIDAY THROUGH FRIDAY OFF ON WEEKENDS (REPEAT NEEDED FOR FLARES) 11/15/2022 ActiveInsulin Nph And Regular Human (20 sources)InsulinStart: 25-38-0008Hvhnlyi Nph And Regular Human (Humulin 70/30 U-100 Kwikpen) 100 unit/mL (70-30) insulin pen Active 0 .ROUTE .COMPLEX 20 02November 27, 2024 8:24am INJECT 50 UNITS SUBCUTANEOUSLY BEFORE BREAKFAST AND 25 BEFORE SUPPER Complies with drug therapyStart: 09-01-2024 End: 39-88-4639sccibv 100 [IU] by subcutaneous injection twice dailyInsulin Nph And Regular Human (Humulin 70/30 U-100 Kwikpen) 100 unit/mL (70-30) insulin pen Discontinued 0 SUBCUT Twice daily September 01, 2024 6:27pm November 27, 2024 8:24am 60u SC before bkfst and 25u SC before supperStart: 89-51-2012bmigcw 100 [IU] by subcutaneous injection twice dailyInsulin Nph And Regular Human (Humulin 70/30 U-100 Kwikpen) 100 unit/mL (70-30) insulin pen Active 0 SUBCUT Twice daily September 01, 2024 6:27pm 60u SC before bkfst and 25u SC before supper Complies with drug therapyStart: 39-49-0766qlmsxq 100 [IU] by subcutaneous injection twice dailyStart: 03-28-2024 End: 85-16-5919bwxdhi 100 [IU] by subcutaneous injection twice dailyInsulin Nph And Regular Human (Humulin 70/30 U-100 Kwikpen) 100 unit/mL (70-30) insulin pen Discontinued 0 SUBCUT Twice daily March 28, 2024 7:08pm September 01, 2024 6:42pm 50u SC before bkfst and 25u SC before supperStart: 03-28-2024 End: 02-23-1085lngkzf 100 [IU] by subcutaneous injection twice dailyInsulin Nph And Regular Human (Humulin 70/30 U-100 Kwikpen) 100 unit/mL (70-30) insulin pen Discontinued 0 SUBCUT Twice daily March 28, 2024 7:08pm September 01, 2024 6:42pm 50u SC before bkfstand 25u SC before supperStart: 06-35-6664leodid 100 [IU] by subcutaneous injection twice dailyInsulin Nph And Regular Human (Humulin 70/30 U-100 Kwikpen) 100 unit/mL (70-30) insulin pen Active 0 SUBCUT Twice daily March 28, 2024 7:08pm 50u SC before bkfst and 25u SC before supperStart: 78-97-1910kznekz 100 [IU] by subcutaneous injection twice daily Insulin Nph And Regular Human (Humulin 70/30 U-100 Kwikpen) 100 unit/mL (70-30) insulin pen Active 0 SUBCUT Twice daily March 28, 2024 6:08pm 50u SC before bkfst and 25u SC before supperStart: 02-03-2024 End: 24-76-2185ijdvto 100 [IU] by subcutaneous injection twice dailyInsulin Nph And Regular Human (Humulin 70/30 U-100 Kwikpen) 100 unit/mL (70-30) insulin pen Discontinued 0 SUBCUT Twice daily 22 04February 03, 2024 6:17pm March 28, 2024 7:09pm 50u SC before bkfst and 25u SC before supperStart: 02-03-2024 End: 12-58-2562mytmtv 100 [IU] by subcutaneous injection twice dailyInsulin Nph And Regular Human (Humulin 70/30 U-100 Kwikpen) 100 unit/mL (70-30) insulin pen Discontinued 0 SUBCUT Twice daily February 03, 2024 6:17pm March 28, 2024 7:09pm 50u SC before bkfst and 25u SC before supperStart: 02-03-2024 End: 71-97-6224ltssgo 100 [IU] by subcutaneous injection twice dailyInsulin Nph And Regular Human (Humulin 70/30 U-100 Kwikpen) 100 unit/mL (70-30) insulin pen Discontinued 0 SUBCUT Twice daily February 03, 2024 5:17pm March 28, 2024 6:09pm 50u SC before bkfst and 25u SC before supperStart: 01-22-2024 End: 70-39-9944rhxmng 100 [IU] by subcutaneous injection twice dailyInsulin Nph And Regular Human (Humulin 70/30 U-100 Kwikpen) 100 unit/mL (70-30) insulin pen Discontinued 0 SUBCUT Twice daily 22 04January 22, 2024 8:22pm February 03, 2024 6:17pm 36u SC before bkfst and 20u SC before supperStart: 01-22-2024 End: 00-59-8982nwodfl 100 [IU] by subcutaneous injection twice dailyInsulin Nph And Regular Human (Humulin 70/30 U-100 Kwikpen) 100 unit/mL (70-30) insulin pen Discontinued 0 SUBCUT Twice daily January 22, 2024 8:22pm February 03, 2024 6:17pm 36u SC before bkfst and 20u SC before supperStart: 01-22-2024 End: 85-54-5553vaoitc 100 [IU] by subcutaneous injection twice dailyInsulin Nph And Regular Human (Humulin 70/30 U-100 Kwikpen) 100 unit/mL (70-30) insulin pen Discontinued 0 SUBCUT Twice daily January 22, 2024 7:22pm February 03, 2024 5:17pm 36u SC before bkfst and 20u SC before supperStart: 01-13-2024 End: 85-02-5387arfacb 100 [IU] by subcutaneous injection twice dailyInsulin Nph And Regular Human (Humulin 70/30 U-100 Kwikpen) 100 unit/mL (70-30) insulin pen Discontinued 0 SUBCUT Twice daily 22 04January 13, 2024 9:11am January 22, 2024 8:22pm 30u SC before bkfst and 20u SC before supperStart: 01-13-2024 End: 86-08-5786esxmwx 100 [IU] by subcutaneous injection twice dailyInsulin Nph And Regular Human (Humulin 70/30 U-100 Kwikpen) 100 unit/mL (70-30) insulin pen Discontinued 0 SUBCUT Twice daily January 13, 2024 9:11am January 22, 2024 8:22pm 30u SC before bkfst and 20u SC before supperStart: 01-13-2024 End: 39-26-8291zuvjez 100 [IU] by subcutaneous injection twice dailyInsulin Nph And Regular Human (Humulin 70/30 U-100 Kwikpen) 100 unit/mL (70-30) insulin pen Discontinued 0 SUBCUT Twice daily January 13, 2024 8:11am January 22, 2024 7:22pm 30u SC before bkfst and 20u SC before supperStart: 12-31-2023 End: 88-65-1757Tdyvidt Nph And Regular Human (Humulin 70/30 U-100 Kwikpen) 100 unit/mL (70-30) insulin pen Discontinued 20 UNIT SUBCUT Every morning 22 04December 31, 2023 12:37pm January 13, 2024 9:12am 15 unitsQHSStart: 12-31-2023 End: 52-70-5894Sbhojyd Nph And Regular Human (Humulin 70/30 U-100 Kwikpen) 100 unit/mL (70-30) insulin pen Discontinued 20 UNIT SUBCUT Every morning December 31, 2023 12:37pm January 13, 2024 9:12am 15 units QHSStart: 12-31-2023 End: 70-01-2117Qmmrhnf Nph And Regular Human (Humulin 70/30 U-100 Kwikpen) 100 unit/mL (70-30) insulin pen Discontinued 20 UNIT SUBCUT Every morning December 31, 2023 11:37am January 13, 2024 8:12am 15 units QHSStart: 12-31-2023 Insulin Nph And Regular Human (Humulin 70/30 U-100 Kwikpen) 100 unit/mL (70-30) insulin pen Active 20 UNIT SUBCUT Every morning December 31, 2023 12:37pm 15 units QHSStart: 10-17-2023 End: 34-31-3406Tgmerne Nph And Regular Human (Humulin 70/30 U-100 Kwikpen) 100 unit/mL (70-30) insulin pen Discontinued 15 UNIT SUBCUT Twice daily 22 04October 17, 2023 12:00am December 31, 2023 12:37pmStart: 10-17-2023 End: 57-27-5023Zqgkirm Nph And Regular Human (Humulin 70/30 U-100 Kwikpen) 100 unit/mL (70-30) insulin pen Discontinued 15 UNIT SUBCUT Twice daily October 16, 2023 11:00pm December 31, 2023 11:37amStart: 10-17-2023 End: 32-79-4752Kbghzlv Nph And Regular Human (Humulin 70/30 U-100 Kwikpen) 100 unit/mL (70-30) insulin pen Discontinued 15 UNIT SUBCUT Twice daily October 17, 2023 12:00am December 31, 2023 12:37pmHUMULIN 70/30 U-100 KWIKPEN 100 unit/mL (70-30) pen INJECT 20 UNITS SUBCUTANEOUSLY IN THE MORNING AND 15 AT BEDTIME Activelosartan potassium 50 mg oral tablet (20 sources)Angiotensin 2 Receptor BlockerStart: 04-16-2024 End: 88-52-5819ygdu 1 tablet by mouth once dailyLosartan 50 mg tablet Active 50 MG PO Daily 30 July 29, 2024 2:13pm Complies with drug therapyStart: 03-01-2024 End: 77-69-9750ggnn 1 tablet by mouth twice dailyLosartan 50 mg tablet Discontinued 0 .ROUTE .COMPLEX 60 March 01, 2024 1:59pm April 16, 2 025 3:10pm Take 1 tablet by mouth twice dailyStart: 06-04-2023 End: 04-12-9809niko 1 tablet by mouth twice dailyLosartan 50 mg tablet Discontinued 50 MG PO Twice daily June 04, 2023 12:00am January 30, 2024 1:47pmStart: 01-13-2023 End: 02-12-4588vlzj 1 tablet by mouth once dailyLosartan 50 mg tablet Discontinued 50 MG PO Daily January 30, 2024 1:47pm March 01, 2024 1:59pm oxyCODONE hydrochloride 5 mg oral tablet (20 sources)Opioid AgonistStart: 99-43-4427qslr 1 tablet by mouth every eight hours as needed for painoxyCODONE IR (ROXICODONE) 5 mg immediate release tablet Indications: Mucoepidermoid carcinoma (HCC)Take 1 tablet by mouth every 8 hours as needed for pain for up to 5 days. 10 tablet 09/18/2024 ActiveStart: 06-04-2023 End: 51-39-9041peyq 1 tablet by mouth every twelve hours as needed for pain Oxycodone 5 mg tablet Discontinued 5 MG PO Every 12 hours as needed for pain 60 30 0 July 14, 2024 July 15, 2024 6:14pm Multiple myeloma Back pain of thoracolumbar region 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 Low back pain, unspecified Pain in thoracic spineStart: 29-85-5759ezda 1 tablet by mouth every twelve hours [...] oral capsule (20 sources)alpha-Adrenergic BlockerStart: 09-03-2023 End: 53-66-2249opdy 1 capsule by mouth once daily in the eveningTamsulosin 0.4 mg capsule Active 0 .ROUTE .COMPLEX 90 August 25, 2024 7:20am TAKE 1 CAPSULE BY MOUTH ONCE DAILY IN THE EVENING Complies with drug therapyStart: 72-03-0021gzrr 1 capsule by mouth every twenty-four hourstamsulosin (Flomax) 0.4 mg 24 hr capsule Take by mouth. 0 01/13/2023 ActiveStart: 12-12-2016 End: 00-10-8877cqrb 1 capsule by mouth once daily at bedtimeTamsulosin 0.4 mg capsule,extended release 24hr Discontinued 0.4 MG PO Daily at bedtime December 12, 2016 12:00am September 03, 2023 12:52pm BPHComment on above:Take 0.4 mg by mouth once daily.warfarin sodium 5 mg oral tablet (20 sources)Vitamin K AntagonistStart: 76-95-8369ccqt 1-2 tablets by mouth once Warfarin 5 mg tablet Active 0 .ROUTE .COMPLEX 150 3 September 29, 2023 7:02am TAKE 1 TO 2 TABLETS BY MOUTH ONCE DAILY PER INR RESULTS Complies with drug therapy Start: 21-23-9727lcrd 1-2 tablets by mouth onceWarfarin Active 0 .ROUTE .COMPLEX 150 September 29, 2023 7:02am TAKE 1 TO 2 TABLETS BY MOUTH ONCE DAILYPER INR RESULTSStart: 03-31-2017 End: 29-39-3325noic 1-2 tablets by mouth once dailyWarfarin 5 mg tablet Discontinued 0 PO Daily June 04, 2023 12:00am September 29, 2023 7:03am 1-2 tabl ets per INR orally daily;Start: 12-12-2016 End: 76-10-0532suim 5.5 mg by mouth once daily at bedtimeWarfarin 5 mg Tablet Discontinued 5.5 MG PO Daily at bedtime December 12, 2016 12:00am January 232016 1:27pm PEStart: 12-12-2016 End: 54-79-0081wxlx 5.5 mg by mouth once daily at bedtimeWarfarin Discontinued 5.5 MG PO Daily at bedtime December 12, 2016 12:00am February 18, 2017 1: 27pmWarfarin 5mg ActiveComment on above:Take 5 mg by mouth once daily. Weds and Sat 2.5 mg Completed/Discontinued Medications MedicationDrug Class(es)DatesSig (Normalized)Sig (Original)acetaminophen 325 mg / oxyCODONE hydrochloride 5 mg oral tablet (20 sources)Opioid AgonistStart: 12-13-2016 End: 62-99-1297cpiw 1-2 tablets by mouth every four to [...] Nucleoside Analog DNA Polymerase InhibitorStart: 07-21-2017 End: 18-81-1170awhr 1 tablet by mouth twice dailyacyclovir (ZOVIRAX) 400 mg tablet TAKE ONE TABLET BY MOUTH TWICE DAILY 60 tablet 5 07/21/2017 08/19/2024 DiscontinuedComment on above:TAKE ONE TABLET BY MOUTH TWICE DAILYamLODIPine 5 mg oral tablet (10 sources)Dihydropyridine Calcium Channel BlockerStart: 02-18-2017 End: 08-73-5672bsbb 1 tablet by mouth once dailyAmlodipine 5 mg Tablet Discontinued 5 MG PO Daily 30 0 February 18, 2017 1:00am June 04, 2023 9 :29amaspirin 81 mg delayed release oral tablet (10 sources)Platelet Aggregation Inhibitor, Nonsteroidal Anti-inflammatory Drug Start: 12-12-2016 End: 60-41-3679qsse 1 tablet by mouth once dailyAspirin (Aspir-Low) 81 mg Tablet,Delayed Release (Dr/Ec) Discontinued 1 TAB PO Daily December 12, 2016 12:00am February 18, 2017 1:26pmdiclofenac sodium 0.01 mg/mg topical gel (19 sources)Nonsteroidal Anti-inflammatory DrugStart: 04-18-2017 End: 63-21-4350ogtbb 2 g topically four times dailyVOLTAREN 1 % topical gel Apply 2 g to affected area four times daily. 04/18/2017 08/19/2024 Discontinued Comment on above:Apply 2 g to affected area four times daily. docusate sodium 50 mg / sennosides, group home 8.6 mg oral tablet (20 sources)Start: 03-11-2017 End: 73-72-5236smvp 2 tablets by mouth twice dailysenna-docusate (MEDI-NATURAL SENNA-STOOL) 8.6-50 mg per tablet Take 2 tablets by mouth twice daily.120 tablet 5 03/11/2017 08/19/2024 DiscontinuedComment on above:Take 2 tablets by mouth twice daily.escitalopram 10 mg oral tablet (20 sources)Serotonin Reuptake InhibitorStart: 09-02-2023 End: 95-59-7257iyey 1 tablet by mouth once daily at bedtimeEscitalopram Oxalate 10 mg tablet Discontinued 0 .ROUTE .COMPLEX 90 1 February 29, 2024 6:01pm August 31, 2024 8:41pm TAKE 1 TABLET BY MOUTH ONCE DAILY AT BEDTIMEStart: 01-13-2023 End: 09-38-7349sjkd 1 tablet by mouth once dailyEscitalopram Oxalate 10 mg tablet Discontinued 10 MG PO Daily June 04, 2023 12:00am September 02, 2023 1:36pmStart: 44-56-8812zmfw 1 tablet by mouth once dailyescitalopram oxalate [...] (10 sources)Dihydropyridine Calcium Channel BlockerStart: 12-12-2016 End: 44-93-3057vmte 1 tablet by mouth once dailyFelodipine 5 mg Tablet Extended Release 24 Hr Discontinued 5 MG PO Daily December 12, 2016 12:00am February 18, 2017 1:31pm hypertensionglimepiride 4 mg oral tablet (20 sources)SulfonylureaStart: 06-04-2023 End: 49-79-5457eyfu 1 tablet by mouth once dailyGlimepiride 4 mg tablet Discontinued 4 MG PO Daily June 04, 2023 9:27am December 31, 2023 12:36pm Start: 05-26-2023 End: 33-75-4374fklv 1 tablet by mouth once daily at breakfastGlimepiride 4 mg tablet Discontinued 0 .ROUTE .COMPLEX 90 3 May 26, 2023 1:41pm June 0349:29am TAKE 1 TABLET BY MOUTH ONCE DAILY 30 MINUITES PRIOR TO BREAKFAST Start: 05-26-2023 End: 24-01-4307qgye 1 tablet by mouth once dailyGlimepiride 4 mg tablet Discontinued 4 MG PO Daily May 26, 2023 1:00am May 26, 2023 1:41pmtake 4 tablets by mouth at mealtimeglimepiride (Amaryl) 1 MG tablet Take 4 mg by mouth in the morning. Take with meals. Active End: 37-81-6740uheo 1 tablet by mouth once daily at [...] Diuretic, Angiotensin 2 Receptor BlockerStart: 12-12-2016 End: 05-49-7200kyal 1 tablet by mouth once dailyLosartan-Hydrochlorothiazide 100-12.5 mg Tablet Discontinued 1 TAB PO Daily December 12, 2016 12:00am June 04, 2023 9:29am hypertensionComment on above:Take 1 tablet by mouth once daily. 1/2 tab daily 3 ml insulin glargine 100 unt/ml pen injector (20 sources)Insulin AnalogStart: 07-07-2023 End: 05-44-2287Dxdmvqr Glargine (Lantus Solostar U-100 Insulin) 100 unit/mL (3 mL) insulin pen Discontinued 30 UNIT SUBCUT Twice daily 18 30 5 July 07, 2023 6:35pm December 31, 2023 12:36pmStart: 07-01-2023 End: 73-96-3852Trqqoye Glargine (Lantus Solostar U-100 Insulin) 100 unit/mL (3 mL) insulin pen Discontinued 0 .ROUTE .COMPLEX 45 3 July 01, 2023 4:28pm July 07, 2023 6:36pm INJECT 50 UNITS SUBCUTANEOUSLY ONCE A DAYStart: 06-04-2023 End: 97-92-3767tvtzfo 30 [IU] by subcutaneous injection twice dailyInsulin Glargine 100 unit/mL (3 mL) insulin pen Discontinued 30 UNIT SUBCUT Twice daily May 9:27am July 01, 2023 4:28pmStart: 02-18-2017 End: 70-42-6066yhibvl 10 [IU] by subcutaneous injection once daily at bedtime Insulin Glargine 100 unit/mL (3 mL) insulin pen Discontinued 10 UNIT SUBCUT Daily at bedtime 3 0 February 18, 2017 1:00am June 04, 2023 9:29amStart: 12-12-2016 End: 26-19-0625lheioo 70 [IU] by subcutaneous injection once daily [...] with radiology test) (1 source)Start: 05-17-2024 End: 13-95-6051dokubp 1 dose intravenously once, then inject 1 [...] medicated patch (14 sources)Antiarrhythmic, Amide Local AnestheticStart: 92-75-2248Xpsmynikn 5 % 1 patch to skin remove after 12 hours Externally Once a day for 30 days May, Not-Takinglinagliptin 5 mg oral tablet (20 sources)Dipeptidyl Peptidase 4 InhibitorStart: 01-13-2023 End: 19-21-8388gmdy 1 tablet by mouth once dailyLinagliptin (Tradjenta) 5 mg tablet Discontinued 5 MG PO Daily June 04, 2023 12:00am February 03, 2024 6:13pmComment on above:Take 5 mg by mouth once daily.linagliptin 2.5 mg / metFORMIN hydrochloride 1000 mg oral tablet (10 sources)Biguanide, Dipeptidyl Peptidase 4 InhibitorStart: 12-12-2016 End: 72-41-0619Xgahmxcixjw-Metformin 2.5-1,000 mg tablet Discontinued 1 TAB PO 1-2 TIMES DAILY December 12, 2016 12:00am June 04, 2023 9:29am Diabetes LORazepam (14 sources)BenzodiazepineLORazepam Not-TakingMultivitamin preparation (5 sources)Start: 12-12-2016 End: 02-43-9454solt 1 tablet by mouth once dailyMultivitamin Discontinued 1 TAB PO Daily December 12, 2016 12:00am June 04, 2023 9:29amMultivitamin Tablet (5 sources)Start: 12-12-2016 End: 82-53-7607shzw 1 tablet by mouth once dailyMultivitamin Tablet Discontinued 1 TAB PO Daily December 12, 2016 12:00am June 04, 2023 9:29amStart: 12-12-2016 End: 82-73-1281fdlq 1 tablet by mouth once dailyMultivitamin Tablet Discontinued 1 TAB PO Daily December 11, 2016 11:00pm June 04, 2023 8:29amondansetron 4 mg oral tablet (19 sources)Serotonin-3 Receptor AntagonistStart: 02-06-2017 End: 46-29-3487wfpm 1 tablet by mouth every eight hours as neededondansetron (ZOFRAN) 4 mg tablet Take 4 mg by mouth every 8 hours as needed. 02/06/2017 08/19/2024 DiscontinuedComment on above:Take 4 mg by mouth every 8 hours as needed. pantoprazole 40 mg delayed release oral tablet (20 sources)Proton Pump InhibitorStart: 02-18-2017 End: 38-99-9078kkjn 1 tablet by mouth once daily in the morningPantoprazole 40 mg tablet,delayed release (DR/EC) Discontinued 40 MG PO Every morning 56 56 0 February 18, 2017 1:00am April 14, 2017 1:00am April 15, 2017 1:04am Comment on above:Take 40 mg by mouth once daily. pioglitazone 15 mg oral tablet (19 sources)Peroxisome Proliferator Receptor alpha Agonist, Peroxisome Proliferator Receptor gamma Agonist, ThiazolidinedioneStart: 06-03-2021 End: 69-52-1776wijg 1 tablet by mouth once daily before breakfastpioglitazone (ACTOS) 15 mg tablet Take 15 mg by mouth daily before breakfast. 06/03/2021 08/19/2024DiscontinuedComment on above:Take 15 mg by mouth daily before breakfast.predniSONE 5 mg oral tablet (19 sources)Start: 05-22-2017 End: 17-96-4106bzzt 1 tablet by mouth once dailypredniSONE (DELTASONE) 5 mg tablet Indications: 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 (HCC) , Chronic pain due to neoplasm , Malaise and fatigue Take 1 tablet by mouth once daily. 30 tablet 05/22/2017 08/19/2024 DiscontinuedComment on above:Take 1 tablet by mouth once daily.Triamcinolone (20 sources)CorticosteroidStart: 95-93-7358Rqduqiz -40 mg Jun, 40 mg Start: 52-35-1608Tbjodjy -40 mg May, 40 mgStart: 15-34-6137Jsilhts -40 mg Dec, 40 mgStart: 47-11-0556Szeqsdb -40 mg Jun, Problems Active Problems Problem ClassificationProblemDateDocumented DateEpisodic/ChronicAbdominal pain (1 source)Flank pain; Translations: [Unspecified abdominal pain]08-11-2023 EpisodicAcquired foot deformities (5 sources)Acquired deformity of toe of right foot; Translations: [Acquired deformities of toe(s), unspecified, right foot]97-36-8372EwpirrfdZqjqbsec foot deformities (5 sources)Acquired deformity of toe of left foot; Translations: [Acquired deformities of toe(s), unspecified,left foot]33-14-5818FipecpkzMhejbwf tract disease (20 sources)Biliary calculus; Translations: [Calculus of gallbladder without cholecystitis without obstruction]EpisodicBlindness and vision defects (8 sources)Visual disturbance; Translations: [Other visual disturbances]Episodic Cancer of head and neck (13 sources)Malignant tumor of parotid gland; Translations: [Malignant neoplasm of parotid gland]Onset: 376971-32-0730PtmvcvsLfhjhyt on above:Left parotidectomy - 09/17/24Chronic kidney disease (20 sources)Chronic kidney disease stage 3B ; Translations: [Chronic kidney disease, stage 3b]Onset: 263573-95-4770NmsbxudTmxntoq kidney disease (6 sources)Chronic kidney disease; Translations: [Stage 3a chronic kidney disease (HCC)]Onset: 93-99-4846Dlslpwwtryb and hemorrhagic disorders (20 sources)Thrombocytopenic disorder; Translations: [Thrombocytopenia, unspecified]Onset: 699938-97-7194SpcwxbuQvxpnfa on above:Problem List clean-up per request of Phys. EHR CmteComplication of device; implant or graft (1 source)Pain due to other internal prosthetic devices, implants and grafts, initial encounter; Translations: [Pain due to other internal prosthetic devices, implants and grafts, initial encounter]Onset: 11-94-3268ApxjsvnzQlyhuhcolh and other anemia (10 sources)Anemia due to blood loss; Translations: [Iron deficiency anemia secondary to blood loss (chronic)]33-58-2133NgizeydBfqoxwc on above:Problem List clean-up per request of Phys. EHR CmteDiabetes mellitus with complications (20 sources)Polyneuropathy due to type 2 diabetes mellitus; Translations: [Type 2 diabetes mellitus with diabetic polyneuropathy]Onset: 17-46-2053Fojkcku Diabetes mellitus without complication (8 sources)Type 2 diabetes mellitus without complication; Translations: [Diabetes mellitus without mention of complication, type II or unspecified type, not stated as uncontrolled]Onset: 47-43-4450FoprkodDeudcoro of mouth; excluding dental (20 sources)Mass of parotid gland; Translations: [Other diseases of salivary glands]Onset: 177830-24-1378FywwzadiDpnbnoh on above:FNA w/ atypia of undetermined significance - T: 2 x 2 x 1.7cm - 01/2023FNA w/ atypia of undetermined significance - 12/2022,CT: 2 x 2 x 1.7cm - 01/2023,US: no change - 02/2023,PET/CT: not FDG avid, slight increased size - 08/2023,Disorders of lipid metabolism (20 sources)Hypercholesterolemia; Translations: [Pure hypercholesterolemia, unspecified]Onset: 37-44-5467CgtkuuyV Codes: Adverse effects of medical drugs (1 source)Adverse effect of other opioids, initial encounter; Translations: [Constipation due to opioid therapy]Onset: 32-80-7348BbaibvcsUabtputum hypertension (20 sources)Essential hypertension; Translations: [Essential (primary) hypertension]Onset: 29-50-0361SdpyahjTunxfqrp of upper limb (20 sources)Closed fracture of acromial process of scapula; Translations: [Nondisplaced fracture of acromial process, right shoulder, initial encounter for closed fracture]EpisodicGastrointestinal hemorrhage (20 sources)Gastrointestinal hemorrhage; Translations: [Gastrointestinal hemorrhage, unspecified]Onset: 208351-92-9680JhrbsqnqPuquapc on above: Problem List clean-up per request of Phys. EHR CmteGenitourinary symptoms and ill-defined conditions (18 sources)Nocturia; Translations: [Nocturia]EpisodicHyperplasia of prostate (20 sources)Nocturia due to benign prostatic hypertrophy; Translations: [Benign prostatic hyperplasia with lower urinary tract symptoms]Onset: 16-76-9917Ucvmsug Immunity disorders (20 sources)Monoclonal gammopathy (clinical); Translations: [Hypergammaglobulinemia, unspecified]Onset: 310634-48-6203Gfmjzmn Immunizations and screening for infectious disease (8 sources)Vaccination given; Translations: [Encounter for immunization]Episodic Lymphadenitis (1 source)Localized enlarged lymph nodesEpisodicMalaise and fatigue (20 sources)Malaise and fatigue; Translations: [Other malaise]Onset: 07-22-2013 81-31-1842CdgsctaiAjanhjmue neoplasm without specification of site (6 sources)Malignant epithelial neoplasm; Translations: [Malignant (primary) neoplasm, unspecified]Onset: 319185-39-1724XkusyxkNdad disorders (20 sources)Recurrent major depressive episodes, mild ; Translations: [Major depressive disorder, recurrent, mild]Onset: 70-83-3873MwudzfmUhmejsbb myeloma (20 sources)Multiple myeloma; Translations: [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]Onset: 54-42-8281AxwnnpmLrmvsjs (5 sources)Pain in toe; Translations: [Tinea unguium]38-76-9505ZccjnqgpWmxozkmne of unspecified nature or uncertain behavior (8 sources)Monoclonal gammopathy; Translations: [Monoclonal gammopathy]Onset: 81-36-0257ByaeasoAscrwlxmm of unspecified nature or uncertain behavior (17 sources)Neoplasm of parotid gland; Translations: [Neoplasm of unspecified behavior of digestive system]Onset: 019494-13-3103UkwugmeiBxw-Qjacawj`s lymphoma (18 sources)History of multiple myeloma; Translations: [Personal history of other malignant neoplasms of lymphoid, hematopoietic and related tissues] EpisodicNonspecific chest pain (20 sources)Chest wall pain; Translations: [Other chest pain]Onset: 08-27-2023 30-24-0774HirbplioZtwdvzndvmfwau (8 sources)Osteoarthritis; Translations: [Polyosteoarthritis, unspecified] ChronicOther aftercare (18 sources)Long-term current use of insulin; Translations: [FDC (current) use of insulin]EpisodicOther aftercare (20 sources)Long-term current use of anticoagulant; Translations: [FDC (current) use of anticoagulants]Onset: 082424-89-3213QezuqlhjVglrd aftercare (7 sources)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; Translations: [PACKAGE REINSPECTOR CURRNT USE ANTICOAGULANTS]Onset: 07-22-8741HlebbmbtKmdvq aftercare (1 source)Other termite control technician (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 therapyEpisodicOther aftercare (5 sources)Encounter for therapeutic drug level monitoring; Translations: [ENC THERAPEUTC DRUG LEVL MONITORING]Onset: 02-54-1730KzjeevwwCiweu aftercare (2 sources)Under care of palliative care physician; Translations: [Encounter for palliative care]62-26-2626QfzwlqorQuuia aftercare (15 sources)Drug therapy finding; Translations: [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]Onset: 146390-02-8695PuyjmqiqTdsbn aftercare (1 source)Encounter for palliative care; Translations: [Palliative care by specialist]Onset: 01-79-4364WpntnapgFgivf and unspecified benign neoplasm (8 sources)Benign neoplasm of colon; Translations: [Benign neoplasm of colon, unspecified]EpisodicOther bone disease and musculoskeletal deformities (18 sources)Disorder of bone; Translations: [Disorder of bone, unspecified] EpisodicOther ear and sense organ disorders (6 sources)Mass in pinna; Translations: [Other specified disorders of left ear] 64-35-7142PhuddfemGnigo ear and sense organ disorders (1 source)Other specified disorders of left ear; Translations: [Mass of ear auricle, left]Onset: 44-82-1161UtxwrmrqEzzto endocrine disorders (8 sources)Testicular hypofunction; Translations: [Other testicular hypofunction]ChronicOther fractures (18 sources)Collapsed vertebra, not elsewhere classified, lumbar region, subsequent encounter for fracture withroutine healing; Translations: [Collapse of lumbar vertebra with routine healing]EpisodicOther gastrointestinal disorders (2 sources)Therapeutic opioid induced constipation; Translations: [Drug induced constipation]47-14-9771BeddmyupAeiot gastrointestinal disorders (1 source)Drug induced constipation; Translations: [Constipation due to opioid therapy]Onset: 06-20-3297IefncxxaFnjcs injuries and conditions due to external causes (8 sources)History of fall; Translations: [History of falling]EpisodicOther nervous system disorders (20 sources)Pain due to neoplastic disease; Translations: [Neoplasm related pain (acute) (chronic)]Onset: 695083-24-6545CnucpxySvzkl nervous system disorders (20 sources)Carpal tunnel syndrome; Translations: [Carpal tunnel syndrome, right upper limb]ChronicOther nervous system disorders (18 sources)Cubital tunnel syndrome; Translations: [Lesion of ulnar nerve, right upper limb]ChronicOther nervous system disorders (20 sources)Carpal tunnel syndrome of right wrist; Translations: [Carpal tunnel syndrome, right upper limb]Onset: 801137-92-6970JyeysitZcrff nervous system disorders (18 sources)Complex regional pain syndrome type I of right upper limb; Translations: [Complex regional pain syndrome I of right upper limb]ChronicOther nervous system disorders (5 sources)Complex regional pain syndrome I of right upper limbChronicOther nervous system disorders (16 sources)Shoulder-hand syndrome; Translations: [Complex regional pain syndrome I of right upper limb]Onset: 42-98-4166EdsymisCmozr nervous system disorders (8 sources)Hereditary peripheral neuropathy; Translations: [Unspecified hereditary and idiopathic peripheral neuropathy]Onset: 45-60-6756DpahouuQxepg nervous system disorders (10 sources)Complex regional pain syndrome of upper limb; Translations: [Complex regional pain syndrome I of right upper limb]Onset: hronic Other nervous system disorders (1 source)Neoplasm related pain (acute) (chronic); Translations: [Chronic pain due to neoplasm]Onset: 05-66-9426NblegynPpqlr nervous system disorders (3 sources)Pain; Translations: [Other acute postprocedural pain]09-24-2024 EpisodicOther nutritional; endocrine; and metabolic disorders (20 sources)Simple obesity ; Translations: [Other obesity due to excess calories]Onset: 91-51-9562VixfdsuNxjgd nutritional; endocrine; and metabolic disorders (20 sources)Obese class II; Translations: [Body mass index (BMI) 38.0-38.9, adult]Onset: 37-97-1328TthvesoEvizg nutritional; endocrine; and metabolic disorders (20 sources)Obesity; Translations: [Obesity, unspecified]49-21-9245MygqgucFrznx nutritional; endocrine; and metabolic disorders (1 source)Other obesity due to excess caloriesChronicOther nutritional; endocrine; and metabolic disorders (8 sources)Morbid obesity; Translations: [Morbid (severe) obesity due to excess calories]Onset: 90-99-0934HxqrygpFwdvb nutritional; endocrine; and metabolic disorders (8 sources)Obese class I; Translations: [Body mass index 32.0-32.9, adult]Onset: 76-69-0904OizngvcQytqi nutritional; endocrine; and metabolic disorders (13 sources)Body mass index 30+ - obesity; Translations: [Body mass index (BMI) 37.0-37.9, adult]Onset: 150182-40-8069BtfcedgOnxse nutritional; endocrine; and metabolic disorders (1 source)Body mass index (BMI) 37.0-37.9, adult; Translations: [BMI 37.0-37.9, adult]Onset: 34-03-1764EqtfstvQxbjtynvp; thrombophlebitis and thromboembolism (1 source)Chronic embolism and thrombosis of unspecified deep veins of unspecified lower extremity; Translations: [CHR EMB THROMB UNS DP VN UNS LW EXT] Onset: 62-06-2239XscrluvLkjatnare; thrombophlebitis and thromboembolism (5 sources)Acute embolism and thrombosis of unspecified deep veins of unspecified lower extremity; Translations: [AC EMBO THROMB UNS DP VN UNS LW EXT] Onset: 68-66-2754DckfrfemHlutdcfvc heart disease (20 sources)H/O: pulmonary embolus; Translations: [Personal history of pulmonary embolism]Onset: 58-09-6418AjznynzzKqnxjzev codes; unclassified (18 sources)Postprocedural state finding; Translations: [Other specified postprocedural states]EpisodicSecondary malignancies (20 sources)Secondary malignant neoplasm of bone; Translations: [Secondary malignant neoplasm of bone]Onset: 800006-00-5104SqabhuvOsnqnupwi malignancies (7 sources)Secondary malignant neoplasm of bone; Translations: [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]ChronicSpondylosis; intervertebral disc disorders; other back problems (20 sources)Prolapsed thoracic intervertebral disc; Translations: [Other intervertebral disc displacement, thoracic region]05-93-1635LxztacuGcqjlnukrvh; intervertebral disc disorders; other back problems (20 sources)Backache; Translations: [Back pain of thoracolumbar region]Onset: 108125-79-6941Pifsbhef Past or Other Problems Problem ClassificationProblemDateDocumented DateEpisodic/ChronicAcute posthemorrhagic anemia (8 sources)Acute posthemorrhagic anemia; Translations: [Acute posthemorrhagic anemia]Onset: 77-34-3940OgcplnymQpkcsysomi and other anemia (20 sources)Anemia; Translations: [Anemia, unspecified]Onset: 10-16-2016 55-61-0463OnxaxzqmBuqzxztsmsyu; infection of eye (except that caused by tuberculosis or sexually transmitteddisease) (8 sources)Acute conjunctivitis; Translations: [Unspecified acute conjunctivitis, right eye] Resolved: 03-23-3142IvgvmlqcVezjfmikvxkd conditions of male genital organs (8 sources)Acute prostatitis; Translations: [Acute prostatitis]Onset: 06-13-2017 EpisodicOther aftercare (2 sources)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; Translations: [PACKAGE REINSPECTOR CURRENT USE OF INSULIN]Onset: 24-94-3628VplsqzfyNfodj and unspecified benign neoplasm (8 sources)History of polyp of colon; Translations: [Personal history of colonic polyps]Onset: 37-83-9086HjhiebzoJixfx connective tissue disease (8 sources)Muscle weakness; Translations: [Muscle weakness (generalized)]Onset: 35-93-2263GgbcwjpcAydwe ear and sense organ disorders (8 sources)Impacted cerumen; Translations: [Impacted cerumen]Onset: 07-28-2018 EpisodicScreening and history of mental health and substance abuse codes (8 sources)History of tobacco use; Translations: [Personal history of tobacco use, presenting hazards to health]Onset: 83-73-3205OfxfitkfVkodakg (8 sources)Syncope and collapse; Translations: [Syncope and collapse]Onset: 16-03-9362JmlayuraTjdnwxfchuwd (8 sources)Other and unspecified Escherichia coli [E. coli] infection in conditions classified elsewhere and of unspecified site; Translations: [Other and unspecified Escherichia coli [E. coli] infection in conditions classified elsewhere and of unspecified site]Onset: 32-93-9820Vgtytbutfwto (8 sources)Methicillin resistant Staphylococcus aureus; Translations: [Methicillin resistant Staphylococcus aureus]Onset: 10-86-9614Bpacywzfnfrl (1 source)Onset: 496688-12-5687Bxfzf infection (8 sources)Viral disease; Translations: [Unspecified viral infection, in conditions classified elsewhere and of unspecified site]Onset: 02-07-2014 Episodic Results Test NameValueInterpretationReference RangeFacilityCNOVSPon 89-73-9510RLSATK NormalWooster Community HospitalAlbumin [Mass/volume] in Serum or PlasmaOrdered By: Anibal Ash on 67-69-1021Dtkguba [Mass/Vol]3.63 g/dL3.43-5.41[facility] CenterB2 Microglob SerPl-mCncon 60-29-3151Lloe-2-Microglobulin [Mass/Vol]4.6 ug/mLHigh<3.1CPeoples Hospital on above:Order Comment: Specimen Type: BLOOD SPECIMENOrdering Facility: [facility] Address:[address] [place], [place] [address]Result Comment: Beta-2 Microglobulin test is performed using the [employer] immunoturbidimetric method. Results obtained with different methods or kits cannot be used interchangeably.Performed By: #### 1952-1, 2885-2 ####[facility] LABCLIA [id number] [place] [address] [place] STATES OF AMERICABasophils Auto (Bld) [#/Vol]Ordered By: Anibal Ash on 61-00-4904Ytmofmkvt (Bld) [#/Vol]10*3/uL<0.11[facility] Basophils/100 WBC Auto (Bld)Ordered By: Anibal Ash on 11-17-2024 Basophils/100 WBC (Bld)0.3 %[facility] CenterBlood manual differential comment interpretation narrativeOrdered By: Anibal Ash on 51-73-3824Mnojvk differential comment Augie (Bld) [Interp]AutoUniversity Hospitals Geneva Medical CenterCB W Auto Differential panel (Bld)on 70-93-4734Ocekvwkyh (Bld) [#/Vol]10*3/uLNormal<0.11CPeoples Hospital on above:Order Comment: Specimen Type: BLOOD SPECIMENOrdering Facility: [facility] Address:[address] [place], [place] [address]Performed By: #### 59564- 8 ####[facility] LABCLIA [id number] [place], [place] [address]Uerjipelc/100 WBC (Bld)0.3 %NormalSouthwest General Health Center on above:Order Comment: Specimen Type: BLOOD SPECIMENOrdering Facility: [facility] Address:[address] [place], [place] [address]Performed By: #### 40481-3 ####[facility] LABCLIA [id number] [place], [place] [address]Oumtvswfsgrw cell count method Nom (Bld)AutoNormalCPeoples Hospital on above:Order Comment: Specimen Type: BLOOD SPECIMENOrdering Facility: [facility] Address:[address] [place], [place] [address]Performed By: #### [id number] ####[facility] LABIA [id number] [place], [place] [address]Lbdjoqjuhqr (Bld) [#/Vol]0.15 10*3/uLNormal<0.46[facility] on above:Order Comment: Specimen Type: BLOOD SPECIMENOrdering Facility: [facility] Address:[address] [place], [place] [address]Performed By: #### 67392-5 ####[facility] [id number] [place], [place] [address]Jorebzrwpic/100 WBC (Bld)2.3 %NormalSouthwest General Health Center on above:Order Comment: Specimen Type: BLOOD SPECIMENOrdering Facility: [facility] Address:[address] [place], [place] [address]Performed By: #### 96805-3 ####[facility]MMAL[facility] LABIA [id number] [place], [place] [address]Eswpljylvnr distribution width (RBC) [Ratio]13.4 %Normal 11.5-15.0[facility] on above:Order Comment: Specimen Type: BLOOD SPECIMENOrdering Facility: [facility] Address:[address] [place], [place] [address]Performed By: #### 32274-3 ####[facility] LABIA [id number] [place] [address] Hematocrit (Bld) [Volume fraction]39.4 %Zptmvc32.0-51.0[facility] on above:Order Comment: Specimen Type: BLOOD SPECIMENOrdering Facility: [facility] Address:[address] [place], [place] [address]Performed By: #### 42333-2 ####[facility] LABIA [id number] [place], [place] [address]Vcxjuuohjo (Bld) [Mass/Vol]12.8 g/dLLow13.0-17.0[facility] on above:Order Comment: Specimen Type: BLOOD SPECIMENOrdering Facility: [facility] Address:[address] [place], [place] [address]Performed By: #### 09099-6 ####[facility] LABIA [id number] [place], [place] [address]Ovffyaxt granulocytes (Bld) [#/Vol]10*3/uLNormal<0.10 [facility] on above:Order Comment: Specimen Type: BLOOD SPECIMENOrdering Facility: [facility] Address:[address] [place], [place] [address]Performed By: #### 49216-4 ####[facility] LABIA [id number] [place], [place] [address]Oprhhvyi granulocytes/100 WBC (Bld)0.3 %NormalSouthwest General Health Center on above: Order Comment: Specimen Type: BLOOD SPECIMENOrdering Facility: [facility] Address:[address] [place], [place] [address]Performed By: #### 57712- 8 ####[facility] LABIA [id number] [place], [place] [address]Fspnjvqqgqk (Bld) [#/Vol]1.75 10*3/uLNormal1.00-4.00 [facility] on above:Order Comment: Specimen Type: BLOOD SPECIMENOrdering Facility: [facility] Address:[address] [place], [place] [address]Performed By: #### 60738-2 ####[facility] LABIA [id number] [place], [place] [address]Njxfqofpyfs/100 WBC (Bld)26.9 %NormalSouthwest General Health Center on above:Order Comment: Specimen Type: BLOOD SPECIMENOrdering Facility: [facility] Address:[address] [place], [place] [address]Performed By: #### 78904-2 ####[facility] LABCLIA [id number] [place], [place] [address]STD (RBC) [Entitic mass]30.5 tbQubmxx11.0-34.0[facility] on above:Order Comment: Specimen Type: BLOOD SPECIMENOrdering Facility: [facility] Address:[address] [place], [place] [address]Performed By: #### 60065-5 ####[facility] LABCLIA [id number] [place], [place] [address]JQKQ (RBC) [Mass/Vol]32.5 g/nKQprdcd38.5-36.0[facility] on above: Order Comment: Specimen Type: BLOOD SPECIMENOrdering Facility: [facility] Address:[address] [place], [place] [address]Performed By: #### 75032- 8 ####[facility] LABCLIA [id number] [place], [place] [address]VVM (RBC) [Entitic vol]94.0 sFNbjkki20.0-100.0[facility] on above:Order Comment: Specimen Type: BLOOD SPECIMENOrdering Facility: [facility] Address:[address] [place], [place] [address]Performed By: #### 92444-0 ####[facility] LABCLIA [id number] [place], [place] [address]Uoxrqskag (Bld) [#/Vol]0.69 10*3/uLNormal<0.87[facility] on above:Order Comment: Specimen Type: BLOOD SPECIMENOrdering Facility: [facility] Address:[address] [place], [place] [address]Performed By: #### 61043- 8 ####[facility] LABCLIA [id number] [place], [place] [address]Yopvjhssq/100 WBC (Bld)10.6 %NormalSouthwest General Health Center on above:Order Comment: Specimen Type: BLOOD SPECIMENOrdering Facility: [facility] Address:[address] [place], [place] [address]Performed By: #### 59034-4 ####[facility] LABCLIA [id number] [place], [place] [address]Skazpryiwoa (Bld) [#/Vol]3.87 10*3/uLNormal1.45-7.50[facility] on above:Order Comment: Specimen Type: BLOOD SPECIMENOrdering Facility: [facility] Address:[address] [place], [place] [address]Performed By: #### 97299-9 ####[facility] LABCLIA [id number] [place], [place] [address]Kwrlxmlvzkl/100 WBC (Bld)59.6 %NormalSouthwest General Health Center on above:Order Comment: Specimen Type: BLOOD SPECIMENOrdering Facility: [facility] Address:[address] [place], [place] [address]Performed By: #### 84689-5 ####[facility] LABCLIA [id number] [place], [place] [address]Bmnnckvbp RBC (Bld) [#/Vol] 10*3/uLNormal<0.01[facility] on above:Order Comment: Specimen Type: BLOOD SPECIMENOrdering Facility: [facility] Address:[address] [place], [place] [address]Performed By: #### 12799-0 ####[facility] LABCLIA [id number] [place], [place] [address]Lzpxjcnww RBC/100 WBC (Bld) [Ratio]0.0 /100 WBCNormal [facility] on above:Order Comment: Specimen Type: BLOOD SPECIMENOrdering Facility: [facility] Address:[address] [place], [place] [address]Performed By: #### 05341-7 ####[facility] LABCLIA [id number] [place], [place] [address]Gsiueyqd mean volume (Bld) [Entitic vol]9.6 fLNormal9.0-12.7CPeoples Hospital on above:Order Comment: Specimen Type: BLOOD SPECIMENOrdering Facility: [facility] Address:[address] [place] [address] Performed By: #### 80798-8 ####[facility] LABCLIA [id number] [place], [place] [address]Brxbnoaft (Bld) [#/Vol]177 10*3/lGWvwgau085-037BkpalcbssSouthwest General Health Center on above:Order Comment: Specimen Type: BLOOD SPECIMENOrdering Facility: [facility] Address:[address] [place], [place] [address]Performed By: #### 09801-2 ####[facility] LABCLIA [id number] [place], [place] [address]XWV (Bld) [#/Vol]4.19 10*6/uLLow4.20-6.00[facility] on above:Order Comment: Specimen Type: BLOOD SPECIMENOrdering Facility: [facility] Address:[address] [place], [place] [address]Performed By: #### 75031-6 ####[facility] LABCLIA [id number] [place], [place] [address]TAT (Bld) [#/Vol]6.50 10*3/uL Normal3.70-11.00[facility] on above:Order Comment: Specimen Type: BLOOD SPECIMENOrdering Facility: [facility] Address:[address] [place], [place] [address]Performed By: #### 06414-5 ####[facility] LABIA [id number] [place], [place] [address]Qyuzuqk.ionized [Moles/Vol]on 86-78-2541Cjbrfpb.ionized (Bld) [Mass/Vol]1.31 mmol/LHigh1.08-1.30[facility] on above:Order Comment: Specimen Type: BLOOD SPECIMENOrdering Facility: [facility] Address:[address] [place], [place] [address]Performed By: #### 1995-0 ####[facility] LABIA [id number] [address]Calcium.ionized adjusted to pH 7.4 (Bld) [Moles/Vol]1.26 mmol/LNormal1.08-1.30[facility] on above:Order Comment: Specimen Type: BLOOD SPECIMENOrdering Facility: [facility] Address:[address] [place], [place] [address]Performed By: #### 1994- ####[facility] LABIA [id number] [address] OF [facility] Comprehensive metabolic 2000 panelon 01-14-7231Tmhvszr [Mass/Vol]3.9 g/dLNormal 3.9-4.9CPeoples Hospital on above:Order Comment: Specimen Type: BLOOD SPECIMENOrdering Facility: [facility] Address:[address] [place], [place] [address]Performed By: #### 3084-1, 2777-1, 2532-0, 80615-4 ####[facility] LABIA [id number] [place], [place] [address]OAT [Catalytic activity/Vol]90 U/JHqhrak84-386IyfknprieSouthwest General Health Center on above:Order Comment: Specimen Type: BLOOD SPECIMENOrdering Facility: [facility] Address:[address] [place] [address]Uvpzelvvc By: #### 3084-1, 2777-1, 2532-0, 40044-1 ####[facility] LABCLIA [id number] [place], [place] [address]RGM [Catalytic activity/Vol]13 U/TUvbxui87-74OwtjplepbSouthwest General Health Center on above:Order Comment: Specimen Type: BLOOD SPECIMENOrdering Facility: [facility] Address:[address] [place], [place] [address]Performed By: #### 3084-1, 2777-1, 2532-0, 64729-2 ####[facility] LABCLIA [id number] [place], [place] [address]Zepst gap [Moles/Vol]10 mmol/LNormal8-15[facility] on above:Order Comment: Specimen Type: BLOOD SPECIMENOrdering Facility: [facility] Address:[address] [place], [place] [address]Performed By: #### 3084-1, 2777-1, 2532-0, 83043-3 ####[facility] LABIA [id number] [place], [place] [address]EFE [Catalytic activity/Vol]20 U/AVxotap16-87VvijwanmhSouthwest General Health Center on above:Order Comment: Specimen Type: BLOOD SPECIMENOrdering Facility: [facility] Address:[address] [place], [place] [address]Performed By: #### 3084-1, 2777-1, 2532-0, 21766-3 ####[facility] LABCLIA [id number] [place], [place] [address]Ujfhuwqff [Mass/Vol]0.3 mg/dL Normal0.2-1.3CPeoples Hospital on above:Order Comment: Specimen Type: BLOOD SPECIMENOrdering Facility: [facility] Address:[address] [place], [place] [address]Performed By: #### 3084-1, 2777-1, 2532-0, - 8 ####[facility] LABCLIA [id number] [place], [place] [address]Vqcpwco [Mass/Vol]9.6 mg/dLNormal8.5-10.2CPeoples Hospital on above:Order Comment: Specimen Type: BLOOD SPECIMENOrdering Facility: [facility] Address:[address] [place], [place] [address]Performed By: #### 3084-1, 2777-1, 2532-0, 67431-2 ####[facility] LABCLIA [id number] [place], [place] [address]Rmtlykct [Moles/Vol]104 mmol/WSbpkpn17-291JvdacvmpmSouthwest General Health Center on above: Order Comment: Specimen Type: BLOOD SPECIMENOrdering Facility: [facility] Address:[address] [place], [place] [address]Performed By: #### 3084- 1, 277-1, 2531-0, 71796-3 ####[facility] LABCLIA [id number] [place], [place] [address]KW2 [Moles/Vol]27 mmol/LNormal 22-30[facility] on above:Order Comment: Specimen Type: BLOOD SPECIMENOrdering Facility: [facility] Address:[address] [place], [place] [address]Performed By: #### 3084-1, 277-, 2531-0, 76283-8 ####[facility] LABCLIA [id number] [place], [place] [address]Rldakrcfgq [Mass/Vol]1.32 mg/dLHigh0.73-1.22[facility] on above:Order Comment: Specimen Type: BLOOD SPECIMENOrdering Facility: [facility] Address:[address] [place], [place] [address]Performed By: #### 3084-1, 2777-1, 2-0, 04194-5 ####[facility] LABCLIA [id number] [place], [place] [address]jAULox SerPlBld CKD-EPI 122035 mL/min/1.73m???Low>=60 [facility] on above:Order Comment: Specimen Type: BLOOD SPECIMENOrdering Facility: [facility] Address:[address] [place] [address]Ytwhvm Comment: Estimated Glomerular Filtration Rate (eGFR) is [...] actual GFR.Performed By: #### 3084-1, 2777-1, 2532-0, 14843-1 ####[facility] LABCLIA [id number] [place], [place] [address]Wqbwjwm [Mass/Vol]149 mg/aCTzgh90-76TsoegughmSouthwest General Health Center on above:Order Comment: Specimen Type: BLOOD SPECIMENOrdering Facility: [facility] Address:[address] [place], [place] [address]Result Comment: The [place] Diabetes Association (ADA) provides guidance for cutoff [...] Standards of Medical Care in Diabetes 2016, [place] [employer]. Diabetes Care. 2016.39(Suppl 1).Performed By: #### 3084-1, 2777-1, 2532-0, 95365-0 ####[facility] LABCLIA [id number] [place], [place] [address]Dlxqlasww [Moles/Vol]4.1 mmol/L Normal3.7-5.1CPeoples Hospital on above:Order Comment: Specimen Type: BLOOD SPECIMENOrdering Facility: [facility] Address:[address] [place], [place] [address]Performed By: #### 3084-1, 2777-1, 2532-0, 94854- 8 ####[facility] LABCLIA [id number] [place], [place] [address]Detdmg [Moles/Vol]141 mmol/AEgvkwa572-936BxgmygookSouthwest General Health Center on above:Order Comment: Specimen Type: BLOOD SPECIMENOrdering Facility: [facility] Address:[address] [place], [place] [address]Performed By: #### 3084-1, 2777-1, 2532-0, 45438-2 ####[facility] LABIA [id number] [place], [place] [address]Lzyz nitrogen [Mass/Vol]13 mg/dLNormal9-24[facility] on above: Order Comment: Specimen Type: BLOOD SPECIMENOrdering Facility: [facility] Address:[address] [place], [place] [address]Performed By: #### 3084- 1, 2777-1, 2532-0, 62154-7 ####[facility] LABIA [id number] [place], [place] [address]Wkkxistbyjb/100 WBC Auto (Bld) Ordered By: Anibal Ash on 39-16-0047Qmzlrvahkdk/100 WBC (Bld)2.3 %[facility] CenterErythrocyte distribution width Auto (RBC) [Ratio]Ordered By: Anibal Bazziar on 13-34-2205Gclnytrbudl distribution width (RBC) [Ratio] 13.4 %11.5-15.0[facility] Medical CenterGlomerular filtration rate [Volume Rate/Area] in Serum, Plasma or Blood by CreatinineOrdered By: Anibal Ash on 63-62-7465Uozrviqlax filtration rate [Volume Rate/Area] in Serum, Plasma or Blood by Dimwlqpeso58 mL/min/1.73m???Low>=60[facility] CenterComment on above:Estimated Glomerular Filtration Rate (eGFR) is [...] Ash on 11-17-2024 Hematocrit (Bld) [Volume fraction]39.4 %39.0-51.0[facility] CenterHemoglobin [Mass/volume] in BloodOrdered By: Anibal Ash on 11-17-2024 Hemoglobin (Bld) [Mass/Vol]12.8 g/dLLow13.0-17.0[facility] Medical CenterIMMUNOFIXATION SCREEN, SERUMon 01-99-8724CFGGTSCJYXVFIR (MPA)Atypical restricted bands are present in the IgG and kappa regions. Consistent with IgG kappa monoclonal gammopathy.NormalSouthwest General Health Center on above: Order Comment: Specimen Type: BLOOD SPECIMENOrdering Facility: [facility] Address:[address] [place], [place] [address]Performed By: #### IFESC ####[facility] LABCLIA [id number] [place] AVENUERIVERSIDE COUNTY REGIONAL MEDICAL CENTERK L [address] [place] [address] [place] OF AMERICAMPA RESULTM protein is present. AbnormalNo M protein is identified.[facility] on above: Order Comment: Specimen Type: BLOOD SPECIMENOrdering Facility: [facility] Address:[address] [place], [place] [address]Performed By: #### IFESC ####[facility] LABCLIA [id number] [facility] [address] [place] [address] [place] AMERICASTAFF REVIEW (MPA)Reviewed by Kevin RasconrmalCPeoples Hospital on above:Order Comment: Specimen Type: BLOOD SPECIMENOrdering Facility: [facility] Address:[address] [place], [place] [address]Performed By: #### IFESC ####[facility] LABCLIA [id number] [place] [address] [place] AMERICAIMMUNOGLOBULINS,IGG,IGA,IGMon 04-44-6320LeJ [Mass/Vol]228 mg/sAQepexp26-211LobtolgooSouthwest General Health Center on above:Order Comment: Specimen Type: BLOOD SPECIMENOrdering Facility: [facility] Address:[address] [place] [address] Performed By: #### SERIMM ####[facility] LABCLIA [id number] [place] [address] [place] IgG [Mass/Vol]1383 mg/cSOiaqyg433-3108HmrjuyvutSouthwest General Health Center on above:Order Comment: Specimen Type: BLOOD SPECIMENOrdering Facility: [facility] Address:[address] [place], [place] [address]Performed By: #### SERIMM ####[facility] LABCLIA [id number] [place] [address] [place] AMERICAIgM [Mass/Vol]280 mg/dL Xzlf08-744RlbfhqfwoSouthwest General Health Center on above:Order Comment: Specimen Type: BLOOD SPECIMENOrdering Facility: [facility] Address:[address] [place], [place] [address]Performed By: #### SERIMM ####[facility] LABCLIA [id number] [place] [address] [place] AMERICAIgA [Mass/volume] in Serum or PlasmaOrdered By: Anibal Abhyankar on 19-91-5229DtH [Mass/Vol]228 mg/rJ62-036SmmvhjhsiUniversity Hospitals Geneva Medical CenterIgG [Mass/volume] in Serum or PlasmaOrdered By: Anibal Abhyankar on 34-30-3323EnO [Mass/Vol]1383 mg/nA878-6304IulfbeszjUniversity Hospitals Geneva Medical CenterIgM [Mass/volume] in Serum or PlasmaOrdered By: Anibal Abhyankar on 15-69-4132YdE [Mass/Vol]280 mg/wNYvec22-903SrrqadmxxUniversity Hospitals Geneva Medical CenterImmunoglobulin light chains.kappa.free [Mass/volume] in SerumOrdered By: Anibal Abhyankar on 28-68-3391Pihcaduludkjng light chains.kappa.free (S) [Mass/Vol]233.0 mg/LHigh 3.3-19.4FMagruder HospitalComment on above:Rarely, increased serum free light chains levels may not be detected or accurately quantified due to prozone phenomenon or in high viscosity samples using this immunoturbidimetric assay. Correlation with other laboratory results and clinical findings is recommended. The Chapeno Free Light Chain was performed using the Binding Site Optilite immunoturbidimetric method. Result obtained with different assay methods or kits cannot be used interchangeably.Immunoglobulin light chains.kappa.free/Immunoglobulin light chains.lambda.free [MassOrdered By: Anibal Abhyankar on 54-12-6616Uxczfzfiegfabz light chains.kappa.free/Immunoglobulin light chains.lambda.free (S) [Mass ratio]4.88 High0.26-1.65[facility] CenterImmunoglobulin light chains.lambda.free [Mass/volume] in Serum or PlasmaOrdered By: Anibal Abhyankar on 22-36-2769Opfpffdoeynptn light chains.lambda.free [Mass/Vol]47.7 mg/LHigh 5.7-26.3FMagruder HospitalComment on above:Rarely, increased serum free light chains [...] or kits cannot be used interchangeably. KAPPA/COTA,FREE,SERon 68-77-7608Lrpmzznbulejmp light chains.kappa.free (S) [Mass/Vol]233.0 mg/LHigh3.3-19.4CPeoples Hospital on above:Order Comment: Specimen Type: BLOOD SPECIMENOrdering Facility: [facility] Address:[address] [place], [place] [address]Result Comment: Rarely, increased serum free light chains levels may not be detected or accurately q uantified due to prozone phenomenon or in high viscosity samples using this immunoturbidimetric assay. Correlation with other laboratory results and clinical findings is recommended.The Chapeno Free Light Chain was performed using the Binding Site Optilite immunoturbidimetric method. Result obtained with different assay methods or kits cannot be used interchangeably.Performed By: #### KLFRS ####[facility] LABCLIA [id number] [place] [address] [place] AMERICAImmunoglobulin light chains.kappa/Immunoglobulin light chains.lambda (S) [Mass ratio]4.88High 0.26-1.65[facility] on above:Order Comment: Specimen Type: BLOOD SPECIMENOrdering Facility: [facility] Address:[address] [place], [place] [address]Performed By: #### KLFRS ####[facility] LABCLIA [id number] [place] [address] [place] AMERICAImmunoglobulin light chains.lambda.free [Mass/Vol]47.7 mg/LHigh5.7-26.3CPeoples Hospital on above:Order Comment: Specimen Type: BLOOD SPECIMENOrdering Facility: [facility] Address:[address] [place], [place] [address]Result Comment: Rarely, increased serum free light chains [...] cannot be used interchangeably.Performed By: #### KLFRS ####[facility] LABCLIA [id number] [place] [address] [place] OF AMERICALDH SerPl-cCncon 50-61-2093HJP [Catalytic activity/Vol]142 U/XDqeoyx093-185AklkwuiylWooster Community HospitalComment on above:Order Comment: Specimen Type: BLOOD SPECIMENOrdering Facility: [facility] Address:[address] [place], [place] [address]Ktbqmxqmr By: #### 3084-1, 2777-1, 2532-0, 30095-5 ####[facility] LABCLIA [id number] [place] [address] Laboratory - Chemistry and Chemistry - challengeOrdered By: Anibal Ash on 08-67-7677Zzgnhge [Mass/Vol]3.9 g/dL3.9-4.9[facility] CenterALP [Catalytic activity/Vol]90 U/J49-507VsrjyifegUniversity Hospitals Geneva Medical CenterALT [Catalytic activity/Vol]13 U/I11-67MmeekzlefUniversity Hospitals Geneva Medical CenterAST [Catalytic activity/Vol]20 U/S19-60LknrfjrwpUniversity Hospitals Geneva Medical CenterBilirubin [Mass/Vol]0.3 mg/dL0.2-1.3FMagruder HospitalCalcium [Mass/Vol]9.6 mg/dL8.5-10.2FMagruder HospitalChloride [Moles/Vol]104 mmol/L 98-107[facility] CenterCO2 [Moles/Vol]27 mmol/Z00-31BwrmjwgksUniversity Hospitals Geneva Medical CenterCreatinine [Mass/Vol]1.32 mg/dLHigh0.73-1.22[facility] CenterGlucose [Mass/Vol]149 mg/xXBxml10-18SkfzvjavuUniversity Hospitals Geneva Medical CenterComment on above:The [place] Diabetes Association (ADA) provides guidance for cutoff [...] diabetes.Reference: Standardsof Medical Care in Diabetes 2016, [place] [employer] Association. Diabetes Care. 2016.39(Suppl 1).LDH [Catalytic activity/Vol]142 U/Z066-600PxuadimrtUniversity Hospitals Geneva Medical CenterPotassium [Moles/Vol]4.1 mmol/L 3.7-5.1FMagruder HospitalProtein [Mass/Vol]0.43 g/dLHigh<=0.00 [facility]ita Health Systemodium [Moles/Vol]141 mmol/J162-546SjtxutvgeUniversity Hospitals Geneva Medical CenterUrate [Mass/Vol]4.8 mg/dL4.0-8.1FMagruder HospitalUrea nitrogen [Mass/Vol]13 mg/dL9-24[facility] CenterLaboratory - Hematology and Cell countsOrdered By: Anibal Ash on 39-84-3296Subhkwaaqvu (Bld) [#/Vol]0.15 10*3/uL<0.46[facility] CenterImmature granulocytes/100 WBC (Bld)0.3 %[facility] Leukocytes [#/volume] corrected for nucleated erythrocytes in Blood by Automated counOrdered By: Anibal Ash on 30-37-6468IDO corrected for nucl RBC Auto (Bld) [#/Vol]6.50 k/uL3.70-11.00[facility] CenterLymphocytes Auto (Bld) [#/Vol]Ordered By: Anibal Ash on 68-77-4199Wvaooobodhl (Bld) [#/Vol]1.75 10*3/uL1.00-4.00[facility] CenterLymphocytes/100 WBC Auto (Bld)Ordered By: Anibal Ash on 19-83-5776Csijqfnuabb/100 WBC (Bld) 26.9 %[facility] Auto (RBC) [Entitic mass]Ordered By: Anibal Ash on 33-01-9442ENV (RBC) [Entitic mass]30.5 pg26.0-34.0[facility] Medical CenterMCHC Auto (RBC) [Mass/Vol]Ordered By: Anibal Ash on 35-77-1436VXYU (RBC) [Mass/Vol]32.5 g/dL30.5-36.0[facility] CenterMCV Auto (RBC) [Entitic vol]Ordered By: Anibal Ash on 33-80-7136MSF (RBC) [Entitic vol]94.0 fL80.0-100.0[facility] CenterMonocytes Auto (Bld) [#/Vol]Ordered By: Anibalfernie Ash on 27-23-4083Ieehcuond (Bld) [#/Vol]0.69 10*3/uL<0.87[facility] CenterMonocytes/100 WBC Auto (Bld)Ordered By: [facility] Mihir on 61-10-8645Seiktmzuv/100 WBC (Bld)10.6 % [facility] CenterNeutrophils Auto (Bld) [#/Vol]Ordered By: Anibalfernie Ash on 57-51-7132Ztpbkauapqi (Bld) [#/Vol]3.87 10*3/uL1.45-7.50[facility] CenterNeutrophils/100 WBC Auto (Bld)Ordered By: Anibal Mihir on 56-95-6681Ttnybnirrvn/100 WBC (Bld)59.6 %[facility] CenterNo Panel InformationOrdered By: [facility] daron on 48-53-2358Wtpzcmbd Granulocyte # (Auto)<0.03 k/uL<0.10[facility] CenterImmunofixation InterpretationUniversity Hospitals Geneva Medical CenterIonized Calcium (pH Adjusted)1.26 mmol/L1.08-1.30[facility] CenterLeuk/Lymph Sign Pathologist (Misc)Reviewed by Namrata Byrd MDUniversity Hospitals Geneva Medical CenterMiscellaneous Test 6Gamma Fraction 1FMagruder HospitalMiscellaneous Test CommentReviewed by Namrata Byrd MDUniversity Hospitals Geneva Medical CenterPhosphorus Level2.8 mg/dL2.7-4.8[facility] CenterProtein Electrophoresis InterpretUniversity Hospitals Geneva Medical CenterProtein Electrophoresis NoteAn M protein is identified on protein electrophoresis.AbnormalNo definitive M protein is identified on protein electrophoresis.Avita Health Systemerum ImmunofixationM protein is present.AbnormalNo M protein is identified.[facility] CenterNucleated RBC Auto (Bld) [#/Vol]Ordered By: Anibal Ash on 58-65-0394Hofdtduix RBC (Bld) [#/Vol]10*3/uL<0.01[facility] CenterNucleated erythrocytes [Presence] in Blood by Automated count Ordered By: Anibal Ash on 41-43-6053Fdloxkyvb RBC Auto Ql (Bld)0.0 /100{WBC}[facility] CenterPROTEIN ELECTROPHORESIS SERUM (P)on 55-81-1606Innvzgp [Mass/Vol]3.63 g/dLNormal3.43-5.41[facility] Comment on above:Order Comment: Specimen Type: BLOOD SPECIMENOrdering Facility: [facility] Address:[address] [place] [address] Performed By: #### [id number] ####[facility] LABCLIA [id number] [place] [address] [place] Alpha 1 globulin Elph [Mass/Vol]0.29 g/dLNormal0.18-0.43[facility] on above:Order Comment: Specimen Type: BLOOD SPECIMENOrdering Facility: [facility] Address:[address] [place], [place] [address]Performed By: #### [id number] ####[facility] LABCLIA [id number] [place] [address] [place] Alpha 2 globulin Elph [Mass/Vol]0.77 g/dLNormal0.42-0.98[facility] on above:Order Comment: Specimen Type: BLOOD SPECIMENOrdering Facility: [facility] Address:[address] [place], [place] [address]Performed By: #### [id number] ####[facility] LABCLIA [id number] [id number], [place] [address] [place] Beta globulin Elph [Mass/Vol]0.80 g/dLNormal0.61-1.17[facility] Comment on above:Order Comment: Specimen Type: BLOOD SPECIMENOrdering Facility: [facility] Address:[address] [place] [address] Performed By: #### [id number] ####[facility] LABCLIA [id number] [place] [address] [place] Gamma globulin Elph [Mass/Vol]1.31 g/dLNormal0.53-1.51[facility] Comment on above:Order Comment: Specimen Type: BLOOD SPECIMENOrdering Facility: [facility] Address:[address] [place] [address] Performed By: #### [id number] ####[facility] LABCLIA [id number] [address] STATES [facility] INTERPRETATION COMMENT FOR PROTEIN ELECTROPHORESISSee separate immunofixation report for characterization of monoclonal gammopathy.NormalSouthwest General Health Center on above:Order Comment: Specimen Type: BLOOD SPECIMENOrdering Facility: [facility] Address:[address] [place], [place] [address]Performed By: #### [id number] ####[facility] LABCLIA [id number] [place] [address] [place] M-PROTEIN LOCATIONGamma Fraction 1NormalSouthwest General Health Center on above:Order Comment: Specimen Type: BLOOD SPECIMENOrdering Facility: [facility] Address:[address] [place], [place] [address]Performed By: #### [id number] ####[facility] LABCLIA [id number] [place] [address] [place] OF AMERICAProtein Fractions [Interp]An M protein is identified on protein electrophoresis.AbnormalNo definitive M protein is identified on protein electrophoresis.[facility] on above:Order Comment: Specimen Type: BLOOD SPECIMENOrdering Facility: [facility] Address:[address] [place], [place] [address]Performed By: #### [id number] ####[facility] LABCLIA [id number] [place] [address] [place] Protein.monoclonal Elph [Mass/Vol]0.43 g/dLHigh<=0.00[facility] Comment on above:Order Comment: Specimen Type: BLOOD SPECIMENOrdering Facility: [facility] Address:[address] [place] [address] Performed By: #### [id number] ####[facility] LABCLIA [id number] [place] [address] [place] SPE STAFF REVIEWReviewed by Namrata Byrd MDNormalCSelect Medical Specialty Hospital - [facility]on Comment on above:Order Comment: Specimen Type: BLOOD SPECIMENOrdering Facility: [facility] Address:[address] [place] [address] Performed By: #### [id number] ####[facility] LABCLIA [id number] [place] [id number] [place] Phosphate SerPl-mCncon 97-84-3449Wjbzozuxc [Mass/Vol]2.8 mg/dLNormal2.7-4.8 [facility] HospitalComment on above:Order Comment: Specimen Type: BLOOD SPECIMENOrdering Facility: [facility] Address:[address] [place], [place] [address]Performed By: #### 3084-1, 2777-1, 2532-0, 74629-7 ####[facility] LABCLIA [id number] [place], [place] [address]Lbqoypxz mean volume Auto (Bld) [Entitic vol]Ordered By: Anibal Ash on 38-26-7113Hmgrexop mean volume (Bld) [Entitic vol]9.6 fL 9.0-12.7FMagruder HospitalPlatelets Auto (Bld) [#/Vol]Ordered By: Anibal Ash on 50-59-3057Jgsvbuabu (Bld) [#/Vol]177 10*3/oJ898-951NajmxocbvUniversity Hospitals Geneva Medical CenterProt SerPl-mCncon 93-92-4105Dyjdqzh [Mass/Vol]6.8 g/dL Normal6.3-8.0[facility] on above:Order Comment: Specimen Type: BLOOD SPECIMENOrdering Facility: [facility] Address:[address] [place], [place] [address]Performed By: #### 1952-1, 2885-2 ####[facility] LABCLIA [id number] [place] [address] [place] AMERICAPerformed By: #### 3084-1, 2777-1, 2532-0, 07578-9 ####[facility] LABCLIA [id number] [place], [place] [address]Zvfmtba [Mass/volume] in Serum or PlasmaOrdered By: Anibal Ash on 88-81-5947Twxptex [Mass/Vol]6.8 g/dL6.3-8.0[facility] Geneva Medical CenterRBC Auto (Bld) [#/Vol]Ordered By: Anibal Ash on 84-41-1442EAC (Bld) [#/Vol]4.19 10*6/uLLow4.20-6.00Avita Health Systemerum ionized calcium measurement using ion specific electrode (mass/volume)Ordered By: Anibal Ash on 49-72-2725Altnior.ionized ISE [Mass/Vol]1.31 mmol/LHigh 1.08-1.30[facility] Health Systemerum or plasma alpha 1 globulin measurement by electrophoresis (mass/volume)Ordered By: Anibal Ash on 69-42-7318Irvsl 1 globulin Elph [Mass/Vol]0.29 g/dL0.18-0.43Avita Health Systemerum or plasma alpha 2 globulin measurement by electrophoresis (mass/volume)Ordered By: Anibal Ash on 47-98-1128Ckxbd 2 globulin Elph [Mass/Vol]0.77 g/dL0.42-0.98[facility] Health Systemerum or plasma anion gap determinationOrdered By: Anibal Ash on 37-52-0125Kcuqt gap [Moles/Vol]10 mmol/L11-05[facility] Health Systemerum or plasma beta globulin measurement by electrophoresis (mass/volume)Ordered By: Anibal Ash on 37-15-7013Pljs globulin Elph [Mass/Vol]0.80 g/dL0.61-1.17[facility] Health Systemerum or plasma nmiz-6-vhytdukntyufd measurement (mass/volume) Ordered By: Anibal Ash on 86-37-8472Wcqs-2-Microglobulin [Mass/Vol]4.6 ug/mLHigh<3.1FMagruder HospitalComment on above:Beta-2 Microglobulin test is performed using the [employer] immunoturbidimetric method. Results obtained with different methods or kits cannot be used interchangeably.Serum or plasma gamma globulin measurement by electrophoresis (mass/volume)Ordered By: Anibal Ash on 29-09-8480Mcrmm globulin Elph [Mass/Vol]1.31 g/dL0.53-1.51[facility] Geneva Medical CenterUrate SerPl-mCncon 72-01-4674Tshen [Mass/Vol]4.8 mg/dLNormal4.0-8.1CSelect Medical Specialty Hospital [facility] Comment on above:Order Comment: Specimen Type: BLOOD SPECIMENOrdering Facility: [facility] Address:[address] [place] [address] Performed By: #### 3084-1, 2777-1, 2532-0, 10416-2 ####[facility] LABCLIA [id number] [place], [place] [address]OLRPeo 65-38-5437VIRFDrduflPscahsape Clinic ClevelandCNOVNormalCSelect Medical Specialty Hospital - CantonCNPNon 35-68-5074OMEQVvdagzNwlghpsia Clinic ClevelandBasi metabolic 2000 panelon 68-90-0527Xngqu gap [Moles/Vol]12 mmol/LNormal11-05[facility] HospitalComment on above:Order Comment: Specimen Type: BLOOD SPECIMENOrdering Facility: [facility] Address:[address] [place] [address]Xzauldqoo By: #### 82152-3, , 2776-03 ####[facility] LABCLIA [id number] [place]IL[place] [id number] [place] AMERICACalcium [Mass/Vol]9.5 mg/dLNormal8.5-10.2ClevelCritical access hospitalComment on above:Order Comment: Specimen Type: BLOOD SPECIMENOrdering Facility: [facility] Address:[address] [place], [place] [address]Performed By: #### 83688-6, , 2776-03 ####[facility] LABCLIA [id number] [place]IL[place] [address] [place] AMERICAChloride [Moles/Vol]101 mmol/IHewgre56-482WyyzfxnzoWooster Community HospitalComment on above:Order Comment: Specimen Type: BLOOD SPECIMENOrdering Facility: [facility] Address:[address] [place], [place] [address]Performed By: #### 50862-1, , 2776-03 ####[facility] LABIA [id number] [place] [id number] [place] AMERICACO2 [Moles/Vol]22 mmol/KCnknyc44-97BiqvminvaWooster Community Hospital Comment on above:Order Comment: Specimen Type: BLOOD SPECIMENOrdering Facility: [facility] Address:[address] [place], [place] [address] Performed By: #### 39493-3, , 2776-03 ####[facility] LABIA [id number] VILLE [address] [place] AMERICACreatinine [Mass/Vol]1.23 mg/dLHigh0.73-1.22[facility] Comment on above:Order Comment: Specimen Type: BLOOD SPECIMENOrdering Facility: [facility] Address:[address] [place], [place] [address] Performed By: #### 47126-2, 2776-03 ####[facility] LABCLIA [id number] [address] [place] AMERICACreatinine and Glomerular filtration rate.predicted panel (S/P/Bld)58 mL/min/1.73m???Low>=60[facility] on above:Order Comment: Specimen Type: BLOOD SPECIMENOrdering Facility: [facility] Address:[address] [place], [place] [address]Result Comment: Estimated Glomerular Filtration Rate (eGFR) is calculated using the 2020 CKD-EPI creatinine equation. This equation utilizes serum creatinine, sex, and age as parameters. The creatinine assay has traceable calibration to isotope dilution-mass spectrometry. Refer to KDIGO guidelines for clinical interpretation. In patients with unstable renal function, e.g. those with acute kidney injury, the eGFR may not accurately reflect actual GFR.Performed By: #### 56358-3, , 2776-03 ####[facility] LABCLIA [id number] [address] [place] AMERICAGlucose [Mass/Vol]216 mg/dLHigh 74-99[facility] on above:Order Comment: Specimen Type: BLOOD SPECIMENOrdering Facility: [facility] Address:[address] [place], [place] [address]Result Comment: The [place] Diabetes Association (ADA) provides guidance for cutoff [...] Standards of Medical Care in Diabetes 2016, [place] [employer]. Diabetes Care. 2016.39(Suppl 1).Performed By: #### 34751- 2, , 2776-03 ####[facility] LABCLIA [id number] [address] [place] AMERICAPotassium [Moles/Vol] 4.8 mmol/LNormal3.7-5.1CPeoples Hospital on above:Order Comment: Specimen Type: BLOOD SPECIMENOrdering Facility: [facility] Address:[address] [place], [place] [address]Performed By: #### 45600-7, , 2776-03 ####[facility] LABIA [id number] VILLE [address] [place] AMERICASodium [Moles/Vol]135 mmol/LLow 136-144[facility] on above:Order Comment: Specimen Type: BLOOD SPECIMENOrdering Facility: [facility] Address:[address] [place], [place] [address]Performed By: #### 70102-7, , 2776-03 ####[facility] CENTERIA [id number] VILLE [address] [place] AMERICAUrea nitrogen [Mass/Vol]22 mg/dL Normal9-24[facility] on above:Order Comment: Specimen Type: BLOOD SPECIMENOrdering Facility: [facility] Address:[address] [place], [place] [address]Performed By: #### 80883-4, , 2776-03 ####[facility] CENTERIA [id number] VILLE [id number] [place] AMERICACB panel Auto (Bld)on 09-19-2024 Erythrocyte distribution width (RBC) [Ratio]13.2 %Medoay08.5-15.0[facility] on above:Order Comment: Specimen Type: BLOOD SPECIMENOrdering Facility: [facility] Address:[address] [place], [place] [address]Performed By: #### 94335-5 ####[facility] LABIA [id number] [place] [address] [place] AMERICAHematocrit (Bld) [Volume fraction]38.7 %Low39.0-51.0[facility] on above:Order Comment: Specimen Type: BLOOD SPECIMENOrdering Facility: [facility] Address:[address] [place], [place] [address]Performed By: #### 96998-0 ####[facility] [id number] [place] [address] [place] Hemoglobin (Bld) [Mass/Vol]12.8 g/dLLow13.0-17.0[facility] Comment on above:Order Comment: Specimen Type: BLOOD SPECIMENOrdering Facility: [facility] Address:[address] [place] [address] Performed By: #### 74423-8 ####[facility] [id number] [place] [address] [place] MCH (RBC) [Entitic mass]29.8 irOtnjyv61.0-34.0[facility] on above:Order Comment: Specimen Type: BLOOD SPECIMENOrdering Facility: [facility] Address:[address] [place] [address] Performed By: #### 45897-2 ####[facility] [id number] [place] [address] [place] MCHC (RBC) [Mass/Vol]33.1 g/cYKioxze51.5-36.0[facility] on above:Order Comment: Specimen Type: BLOOD SPECIMENOrdering Facility: [facility] Address:[address] [place] [address] Performed By: #### 59740-9 ####[facility] LABIA [id number] [place] [address] [place] MCV (RBC) [Entitic vol]90.2 oUTpvyxd98.0-100.0[facility] on above:Order Comment: Specimen Type: BLOOD SPECIMENOrdering Facility: [facility] Address:[address] [place] [address] Performed By: #### 94465-5 ####[facility] LABCLIA [id number] [place] [address] [place] Nucleated RBC (Bld) [#/Vol]10*3/uLNormal<0.01[facility] on above:Order Comment: Specimen Type: BLOOD SPECIMENOrdering Facility: [facility] Address:[address] [place] [address] Performed By: #### 50772-7 ####[facility] LABIA [id number] [place] [address] [place] Platelet mean volume (Bld) [Entitic vol]9.9 fLNormal9.0-12.7CPeoples Hospital on above:Order Comment: Specimen Type: BLOOD SPECIMENOrdering Facility: [facility] Address:[address] [place], [place] [address]Performed By: #### 56303-8 ####[facility] LABIA [id number] [place] [address] [place] Platelets (Bld) [#/Vol]207 10*3/wHZjnbrb371-569GatnxqyrgSouthwest General Health Center on above:Order Comment: Specimen Type: BLOOD SPECIMENOrdering Facility: [facility] Address:[address] [place] [address] Performed By: #### 88516-5 ####[facility] LABIA [id number] [place] [address] [place] RBC (Bld) [#/Vol]4.29 10*6/uLNormal4.20-6.00[facility] on above:Order Comment: Specimen Type: BLOOD SPECIMENOrdering Facility: [facility] Address:[address] [place] [address]Qiwsskflp By: #### 55544-4 ####[facility] LABIA [id number] [place] [address] [place] AMERICAWBC (Bld) [#/Vol]9.59 10*3/uLNormal3.70-11.00[facility] HospitalComment on above:Order Comment: Specimen Type: BLOOD SPECIMENOrdering Facility: [facility] Address:[address] [place], [place] [address]Performed By: #### 11681-1 ####[facility] LABIA [id number] [place] [address] [place] AMERICAErythrocyte distribution width Auto (RBC) [Ratio]Ordered By: Gurpreet Pang on 14-41-0803Czizkuxuoct distribution width (RBC) [Ratio]13.2 %11.5-15.0[facility] Hematocrit Auto (Bld) [Volume fraction]Ordered By: Gurpreet Pang on 09-19-2024 Hematocrit (Bld) [Volume fraction]38.7 %Low39.0-51.0[facility] Medical CenterHemoglobin [Mass/volume] in BloodOrdered By: Gurpreet Pang on 09-19-2024 Hemoglobin (Bld) [Mass/Vol]12.8 g/dLLow13.0-17.0[facility] CenterLaboratory - Chemistry and Chemistry - challengeOrdered By: Gurpreet Pang on 44-81-3777Bzrioux [Mass/Vol]9.5 mg/dL8.5-10.2FMagruder HospitalChloride [Moles/Vol]101 mmol/M47-785YtnworoswUniversity Hospitals Geneva Medical CenterCO2 [Moles/Vol]22 mmol/N84-33OuiapftvtUniversity Hospitals Geneva Medical CenterCreatinine [Mass/Vol] 1.23 mg/dLHigh0.73-1.22[facility] CenterGlucose [Mass/Vol]216 mg/xUCubg34-79ZatuhbdjhUniversity Hospitals Geneva Medical CenterComment on above:The [place] Diabetes Association (ADA) provides guidance for cutoff [...] diabetes.Reference: Standardsof Medical Care in Diabetes 2016, [place] [employer] Association. Diabetes Care. 2016.39(Suppl 1). Magnesium [Mass/Vol]1.8 mg/dL1.7-2.3FMagruder HospitalPotassium [Moles/Vol]4.8 mmol/L3.7-5.1FThe Jewish Hospitalodium [Moles/Vol] 135 mmol/SCbm046-558OarkfjikhUniversity Hospitals Geneva Medical CenterUrea nitrogen [Mass/Vol]22 mg/dL9-24[facility] Medical CenterLeukocytes [#/volume] corrected for nucleated erythrocytes in Blood by Automated counOrdered By: Gurpreet Pang on 02-54-5457GKT corrected for nucl RBC Auto (Bld) [#/Vol]9.59 k/uL3.70-11.[address] [facility] Auto (RBC) [Entitic mass]Ordered By: Gurpreet Pang on 92-25-6135OCQ (RBC) [Entitic mass]29.8 pg26.0-34.0[facility] Medical CenterMCHC Auto (RBC) [Mass/Vol]Ordered By: Gurpreet Pang on 09-19-2024 MCHC (RBC) [Mass/Vol]33.1 g/dL30.5-36.0[facility] Medical CenterMCV Auto (RBC) [Entitic vol]Ordered By: Gurpreet Pang on 41-60-1037IQE (RBC) [Entitic vol]90.2 fL80.0-100.0[facility] Medical CenterMagnesium SerPl-mCncon 76-26-5469Ejdiojhsv [Mass/Vol]1.8 mg/dLNormal1.7-2.3CSelect Medical Specialty Hospital [facility] Comment on above:Order Comment: Specimen Type: BLOOD SPECIMENOrdering Facility: [facility] Address:[address] [place] [address] Performed By: #### 64550-5, , 2776-03 ####[facility] LABCLIA [id number] VIL[place] [id number] [place] AMERICANo Panel InformationOrdered By: Gurpreet Pang on 78-03-9632Vvtkalwrw GFR (CKD-EPI)58 mL/min/1.73m???Low>=60[facility] Medical CenterComment on above:Estimated Glomerular Filtration Rate (eGFR) is calculated using the 2020 CKD-EPI creatinine equation. This equation utilizes serum creatinine, sex, and age as parameters. The creatinine assay has traceable calibration to isotope dilution-mass spectrometry. Refer to KDIGO guidelines for clinical inte rpretation. In patients with unstable renal function, e.g. those with acute kidney injury, the eGFRmay not accurately reflect actual GFR.Phosphorus Level2.4 mg/dLLow2.7-4.8[facility] Medical CenterNucleated RBC Auto (Bld) [#/Vol]Ordered By: Gurpreet Pang on 53-10-9526Ianzsnrze RBC (Bld) [#/Vol] 10*3/uL<0.01[facility] Medical CenterPhosphate SerPl-mCncon 09-19-2024 Phosphate [Mass/Vol]2.4 mg/dLLow2.7-4.8CSelect Medical Specialty Hospital - CantonCombeaumont hospital on above:Order Comment: Specimen Type: BLOOD SPECIMENOrdering Facility: [facility] Address:[address] [place], [place] [address]Performed By: #### 72267-2, , 2776-03 ####[facility] LABIA [id number] [place] [id number] [place] Platelet mean volume Auto (Bld) [Entitic vol]Ordered By: Gurpreet Pang on 78-84-7866Evwnfxrm mean volume (Bld) [Entitic vol]9.9 fL9.0-12.7FMagruder HospitalPlatelets Auto (Bld) [#/Vol]Ordered By: Gurpreet Pang on 35-16-4822Fnhhckslr (Bld) [#/Vol]207 10*3/rK085-686PnhspwpzsUniversity Hospitals Geneva Medical CenterRBC Auto (Bld) [#/Vol]Ordered By: Gurpreet Pang on 24-16-6351XXT (Bld) [#/Vol]4.29 10*6/uL4.20-6.00Avita Health Systemerum or plasma anion gap determinationOrdered By: Gurpreet Pang on 42-22-8770Vcwrt gap [Moles/Vol]12 mmol/L8-15[facility] CenterBasic metabolic 2000 panelon 91-22-3912Etcrv gap [Moles/Vol]11 mmol/LNormal8-15[facility] on above:Order Comment: Specimen Type: BLOOD SPECIMENOrdering Facility: [facility] Address:[address] [place], [place] [address]Performed By: #### 32695-3, 2777-1, 96461-9 ####[facility] LABCLIA [id number], [place] [address] [place] AMERICACalcium [Mass/Vol]9.4 mg/dLNormal8.5-10.2CPeoples Hospital on above:Order Comment: Specimen Type: BLOOD SPECIMENOrdering Facility: [facility] Address:[address] [place], [place] [address]Performed By: #### 11283-4, 2777-1, 98870-5 ####[facility] LABCLIA [id number], [place] [address] [place] AMERICAChloride [Moles/Vol]102 mmol/CRyfzgi59-361MnwtoxlexSouthwest General Health Center on above:Order Comment: Specimen Type: BLOOD SPECIMENOrdering Facility: [facility] Address:[address] [place], [place] [address]Performed By: #### 25880-5, 2777-1, 75170-5 ####[facility] LABCLIA [id number] VIL[place] [address] [place] AMERICACO2 [Moles/Vol]22 mmol/PBipmfv95-63SopmbmcacWooster Community Hospital Comment on above:Order Comment: Specimen Type: BLOOD SPECIMENOrdering Facility: [facility] Address:[address] [place], [place] [address] Performed By: #### 70748-2, 2777-1, 14475-6 ####[facility] LABIA [id number] VILLE [address] [place] AMERICACreatinine [Mass/Vol]1.32 mg/dLHigh0.73-1.22[facility] Comment on above:Order Comment: Specimen Type: BLOOD SPECIMENOrdering Facility: [facility] Address:[address] [place] [address] Performed By: #### 78450-8, 2777-1, 27958-9 ####[facility] [id number], [place] [address] [place] [facility] CINCINNATICreatinine and Glomerular filtration rate.predicted panel (S/P/Bld)54 mL/min/1.73m???Low>=60[facility] Community HospitalComment on above:Order Comment: Specimen Type: BLOOD SPECIMENOrdering Facility: [facility] Address:[address] [place], [place] [address]Result Comment: Estimated Glomerular Filtration Rate (eGFR) is calculated using the 2020 CKD-EPI creatinine equation. This equation utilizes serum creatinine, sex, and age as parameters. The creatinine assay has traceable calibration to isotope dilution-mass spectrometry. Refer to KDIGO guidelines for clinical interpretation. In patients with unstable renal function, e.g. those with acute kidney injury, the eGFR may not accurately reflect actual GFR.Performed By: #### 50502-4, 2777-1, 69622-8 ####[facility] LABIA [id number] [address] [place] AMERICAGlucose [Mass/Vol]297 mg/dLHigh 74-99[facility] HospitalComment on above:Order Comment: Specimen Type: BLOOD SPECIMENOrdering Facility: [facility] Address:[address] [place] [address]Jfyhzs Comment: The [place] Diabetes Association (ADA) provides guidance for cutoff [...] Standards of Medical Care in Diabetes 2016, [place] [employer] Association. Diabetes Care. 2016.39(Suppl 1).Performed By: #### 52575- 9, 2777-, 75289-3 ####[facility] LABCLIA [id number] VILLE [id number] [place] AMERICAPotassium [Moles/Vol] 4.8 mmol/LNormal3.7-5.1CPeoples Hospital on above:Order Comment: Specimen Type: BLOOD SPECIMENOrdering Facility: [facility] Address:[address] [place] [address]Kzpfhebhp By: #### 64614-5, 2777, 84184-3 ####[facility] LABIA [id number] VILLE [id number] [place] AMERICASodium [Moles/Vol]135 mmol/LLow 136-144[facility] on above:Order Comment: Specimen Type: BLOOD SPECIMENOrdering Facility: [facility] Address:[address] [place] [address]Beqevxyhs By: #### 52866-0, 2777, 06910-2 ####[facility] LABCLIA [id number] [address] [place] AMERICAUrea nitrogen [Mass/Vol]20 mg/dL Normal9-24[facility] on above:Order Comment: Specimen Type: BLOOD SPECIMENOrdering Facility: [facility] Address:[address] [place], [place] [address]Performed By: #### 29110-9, 2777-1, 79770-4 ####[facility] LABCLIA [id number]CBC panel Auto (Bld)on 09-18-2024 Erythrocyte distribution width (RBC) [Ratio]13.0 %Rjfmcc01.5-15.0[facility] on above:Order Comment: Specimen Type: BLOOD SPECIMENOrdering Facility: [facility] Address:[address] [place], [place] [address]Performed By: #### 10966-5 ####[facility] LABIA [id number] [address] STATES [facility]ANY MEDICAL CENTERHematocrit (Bld) [Volume fraction]38.7 %Low39.0-51.0[facility] on above:Order Comment: Specimen Type: BLOOD SPECIMENOrdering Facility: [facility] Address:[address] [place], [place] [address]Performed By: #### 60164-1 ####[facility] LABIA [id number] [address] [place] Hemoglobin (Bld) [Mass/Vol]12.8 g/dLLow13.0-17.0[facility] Comment on above:Order Comment: Specimen Type: BLOOD SPECIMENOrdering Facility: [facility] Address:[address] [place] [address] Performed By: #### 02470-1 ####[facility] LABIA [id number] [place] [address] [place] MCH (RBC) [Entitic mass]30.0 deTjmjal54.0-34.0[facility] on above:Order Comment: Specimen Type: BLOOD SPECIMENOrdering Facility: [facility] Address:[address] [place] [address] Performed By: #### 90476-6 ####[facility] [id number] [place] [address] [place] MCHC (RBC) [Mass/Vol]33.1 g/nWWpjqii96.5-36.0[facility] on above:Order Comment: Specimen Type: BLOOD SPECIMENOrdering Facility: [facility] Address:[address] [place] [address] Performed By: #### 63947-5 ####[facility] [id number] [place] [address] [place] MCV (RBC) [Entitic vol]90.6 sUNmidtn71.0-100.0[facility] on above:Order Comment: Specimen Type: BLOOD SPECIMENOrdering Facility: [facility] Address:[address] [place] [address] Performed By: #### [id number] ####[facility] [id number] [place] [address] [place] [place] Nucleated RBC (Bld) [#/Vol]10*3/uLNormal<0.01[facility] on above:Order Comment: Specimen Type: BLOOD SPECIMENOrdering Facility: [facility] Address:[address] [place] [address] Performed By: #### 16660-3 ####[facility] LABCLIA [id number] [place] [address] [place] Platelet mean volume (Bld) [Entitic vol]9.7 fLNormal9.0-12.7CPeoples Hospital on above:Order Comment: Specimen Type: BLOOD SPECIMENOrdering Facility: [facility] Address:[address] [place], [place] [address]Performed By: #### 54176-9 ####[facility] LABCLIA [id number] [address] [address] [place] Platelets (Bld) [#/Vol]219 10*3/hGWcezrv483-143OtqwhzhalSouthwest General Health Center on above:Order Comment: Specimen Type: BLOOD SPECIMENOrdering Facility: [facility] Address:[address] [place] [address] Performed By: #### 50086-6 ####[facility] [id number] [place] [address] [place] RBC (Bld) [#/Vol]4.27 10*6/uLNormal4.20-6.00[facility] on above:Order Comment: Specimen Type: BLOOD SPECIMENOrdering Facility: [facility] Address:[address] [place], [place] [address]Performed By: #### 19443-5 ####[facility] [id number] [place] [address] [place] AMERICAWBC (Bld) [#/Vol]12.31 10*3/uLHigh3.70-11.00[facility] on above:Order Comment: Specimen Type: BLOOD SPECIMENOrdering Facility: [facility] Address:[address] [place], [place] [address]Performed By: #### 05549-8 ####[facility] [id number] [place] [address] [place] AMERICACNDSon 03-53-3480AXLOFdrdmw Wooster Community HospitalErythrocyte distribution width Auto (RBC) [Ratio] Ordered By: Gurpreet Pang on 98-21-9072Qaqsnkdwwfl distribution width (RBC) [Ratio]13.0 %11.5-15.0[facility] Medical CenterHematocrit Auto (Bld) [Volume fraction]Ordered By: Gurpreet Pang on 18-67-2623Cazsprjlyg (Bld) [Volume fraction]38.7 %Low39.0-51.0[facility] Medical CenterHemoglobin [Mass/volume] in BloodOrdered By: Gurpreet Pang on 43-12-1709Ajxgjcluja (Bld) [Mass/Vol]12.8 g/dLLow13.0-17.0[facility] CenterLaboratory - Chemistry and Chemistry - challengeOrdered By: Gurpreet Pang on 09-18-2024 Calcium [Mass/Vol]9.4 mg/dL8.5-10.2FMagruder HospitalChloride [Moles/Vol]102 mmol/G56-936JbdooeyyhUniversity Hospitals Geneva Medical CenterCO2 [Moles/Vol]22 mmol/I20-59ZfdvzggojUniversity Hospitals Geneva Medical CenterCreatinine [Mass/Vol]1.32 mg/dLHigh 0.73-1.22[facility] CenterGlucose [Mass/Vol]297 mg/fQXlbp82-06 [facility] CenterComment on above:The [place] Diabetes Association (ADA) provides guidance for cutoff [...] diabetes.Reference: Standardsof Medical Care in Diabetes 2016, [place] Diabetes Association. Diabetes Care. 2016.39(Suppl 1). Magnesium [Mass/Vol]1.8 mg/dL1.7-2.3FMagruder HospitalPotassium [Moles/Vol]4.8 mmol/L3.7-5.1FThe Jewish Hospitalodium [Moles/Vol] 135 mmol/RLvz846-025AazzuonnlUniversity Hospitals Geneva Medical CenterUrea nitrogen [Mass/Vol]20 mg/dL9-24[facility] CenterLeukocytes [#/volume] corrected for nucleated erythrocytes in Blood by Automated counOrdered By: Gurpreet Pang on 91-87-2762REP corrected for nucl RBC Auto (Bld) [#/Vol]12.31 k/uLHigh3.70-11.00 [facility] CenterMC Auto (RBC) [Entitic mass]Ordered By: Gurpreet Pang on 55-79-8426RKW (RBC) [Entitic mass]30.0 pg26.0-34.0[facility] Auto (RBC) [Mass/Vol]Ordered By: Gurpreet Pang on 09-18-2024 MCHC (RBC) [Mass/Vol]33.1 g/dL30.5-36.0[facility] Medical CenterMCV Auto (RBC) [Entitic vol]Ordered By: Gurpreet Pang on 90-29-3489RQJ (RBC) [Entitic vol]90.6 fL80.0-100.0[facility] Medical CenterMagnesium SerPl-mCncon 87-65-9930Lbegsiyiz [Mass/Vol]1.8 mg/dLNormal1.7-2.3CSelect [facility] Specialty [facility] Comment on above:Order Comment: Specimen Type: BLOOD SPECIMENOrdering Facility: [facility] Address:[address] [place] [address] Performed By: #### 46968-5, 2777-1, 32704-6 ####[facility] LABCLIA [id number] OF [facility] HOSPITALURSBRISTOL COUNTY [facility] PROGon 08-87-3484AMKDHYZ PROGNProvidence Hospital NURSING PROGNormalWooster Community HospitalNURSING [facility] CampusNo Panel InformationOrdered By: Gurpreet Pang on 59-81-5937Bitaqcuty GFR (CKD-EPI)54 mL/min/1.73m???Low>=60[facility] CenterComment on above:Estimated Glomerular Filtration Rate (eGFR) is calculated using the 2020 CKD-EPI creatinine equation. This equation utilizes serum creatinine, sex, and age as parameters. The creatinine assay has traceable calibration to isotope dilution-mass spectrometry. Refer to KDIGO guidelines for clinical inte rpretation. In patients with unstable renal function, e.g. those with acute kidney injury, the eGFRmay not accurately reflect actual GFR.Phosphorus Level2.7 mg/dL2.7-4.8[facility] Medical CenterNucleated RBC Auto (Bld) [#/Vol] Ordered By: Gurpreet Pang on 91-17-2852Dzwlcwyrg RBC (Bld) [#/Vol]10*3/uL<0.01 [facility] CenterPhosphate SerPl-mCncon 60-59-4866Hlkuiekyj [Mass/Vol]2.7 mg/dLNormal2.7-4.8CPeoples Hospital on above:Order Comment: Specimen Type: BLOOD SPECIMENOrdering Facility: [facility] Address:[address] [place], [place] [address]Performed By: #### 17884- 9, 2777-1, 95436-2 ####[facility] LABCLIA [id number] [address] [place] AMERICAPlatelet mean volume Auto (Bld) [Entitic vol]Ordered By: Gurpreet Pang on 02-62-8032Zbikranp mean volume (Bld) [Entitic vol]9.7 fL9.0-12.7FMagruder Hospital Platelets Auto (Bld) [#/Vol]Ordered By: Gurpreet Pang on 02-72-2953Qxjnxxcsy (Bld) [#/Vol]219 10*3/sO221-273MgxrwlpvyUniversity Hospitals Geneva Medical CenterRBC Auto (Bld) [#/Vol]Ordered By: Gurpreet Pang on 37-05-8621EPL (Bld) [#/Vol]4.27 10*6/uL 4.20-6.00Avita Health Systemerum or plasma anion gap determinationOrdered By: Gurpreet Pang on 20-88-9419Agegz gap [Moles/Vol]11 mmol/L8-15[facility] CenterANES POSTPROC EVALon 10-97-8650ERDW POSTPROC EVALNormalCSelect Medical Specialty Hospital - CantonANES PRE-OPon 27-04-1810AYJY PRE-OP NormalWooster Community HospitalBaking's daughters medical center metabolic 2000 panelon 35-35-7419Wccst gap [Moles/Vol]12 mmol/LNormal8-15[facility] on above:Order Comment: Specimen Type: BLOOD SPECIMENOrdering Facility: [facility] Address:[address] [place], [place] [address]Performed By: #### 18911- 9, 2777-1, 25143-2 ####[facility] LABCLIA [id number] [address] [address] [place] AMERICACalcium [Mass/Vol]9.2 mg/dLNormal8.5-10.2CPeoples Hospital on above:Order Comment: Specimen Type: BLOOD SPECIMENOrdering Facility: [facility] Address:[address] [place], [place] [address]Performed By: #### 71150-8, 27771, 44786-8 ####[facility] LABCLIA [id number] [address] [place] AMERICAChloride [Moles/Vol]104 mmol/L Dxueao56-784LgawqtlmlSouthwest General Health Center on above:Order Comment: Specimen Type: BLOOD SPECIMENOrdering Facility: [facility] Address:[address] [place], [place] [address]Performed By: #### 27273-9, 27709-21, 55889-7 ####[facility] LABCLIA [id number] VIL[place] [address] [place] AMERICACO2 [Moles/Vol]20 mmol/OYey37-43 [facility] on above:Order Comment: Specimen Type: BLOOD SPECIMENOrdering Facility: [facility] Address:[address] [place], [place] [address]Performed By: #### 03427-5, 27709-21, 22931-2 ####[facility] LABCLIA [id number] [address] [place] AMERICACreatinine [Mass/Vol]1.11 mg/dLNormal0.73-1.22 [facility] on above:Order Comment: Specimen Type: BLOOD SPECIMENOrdering Facility: [facility] Address:[address] [place], [place] [address]Performed By: #### 10491-0, 2777-1, 96611-6 ####[facility] [id number] [address] [place] AMERICACreatinine and Glomerular filtration rate.predicted panel (S/P/Bld)66 mL/min/1.73m???Normal>=60[facility] on above:Order Comment: Specimen Type: BLOOD SPECIMENOrdering Facility: [facility] Address:[address] [place], [place] [address]Result Comment: Estimated Glomerular Filtration Rate (eGFR) is [...] accurately reflect actual GFR. Performed By: #### 12942-2, 2777-1, 96644-8 ####[facility] LABIA [id number] [address] [place] AMERICAGlucose [Mass/Vol]317 mg/kWIaou53-76AqlfomrkzSouthwest General Health Center on above:Order Comment: Specimen Type: BLOOD SPECIMENOrdering Facility: [facility] Address:[address] [place], [place] [address]Result Comment: The [place] Diabetes Association (ADA) provides guidance for cutoff [...] Standards of Medical Care in Diabetes 2016, [place] [employer] Association. Diabetes Care. 2016.39(Suppl 1).Performed By: #### 16127-2, 2777-1, 22670-3 ####[facility] LABCLIA [id number] [address] [place] AMERICAPotassium [Moles/Vol]4.1 mmol/LNormal3.7-5.1 [facility] on above:Order Comment: Specimen Type: BLOOD SPECIMENOrdering Facility: [facility] Address:[address] [place], [place] [address]Performed By: #### 64959-6, 2777-, 10999-9 ####[facility] LABIA [id number] VILLE [address] [place] [facility] CENTERSodium [Moles/Vol]136 mmol/ONksori787-009XpatncecrWooster Community HospitalComment on above:Order Comment: Specimen Type: BLOOD SPECIMENOrdering Facility: [facility] Address:[address] [place], [place] [address]Performed By: #### 96204-6, 2777-, 98599-3 ####[facility] CENTERIA [id number] VILLE [address] [place] AMERICAUrea nitrogen [Mass/Vol]14 mg/dLNormal9-24 [facility] on above:Order Comment: Specimen Type: BLOOD SPECIMENOrdering Facility: [facility] Address:[address] [place], [place] [address]Performed By: #### 35243-3, 2777-, 73450-7 ####[facility] CENTERIA [id number] [address] [facility] CENTERCB panel Auto (Bld)on 88-38-4051Dthldwtdqiv distribution width (RBC) [Ratio]12.9 %Hqxfmp58.5-15.0[facility] Comment on above:Order Comment: Specimen Type: BLOOD SPECIMENOrdering Facility: [facility] Address:[address] [place] [address] Performed By: #### 34168-0 ####[facility] LABIA [id number] [place] [address] [place] Hematocrit (Bld) [Volume fraction]39.8 %Pdhjlv75.0-51.0[facility] on above:Order Comment: Specimen Type: BLOOD SPECIMENOrdering Facility: [facility] Address:[address] [place], [place] [address]Performed By: #### 70661-4 ####[facility] LABIA [id number] [place] [address] [place] Hemoglobin (Bld) [Mass/Vol]12.9 g/dLLow13.0-17.0[facility] Comment on above:Order Comment: Specimen Type: BLOOD SPECIMENOrdering Facility: [facility] Address:[address] [place] [address] Performed By: #### 72159-0 ####[facility] [id number] [place] [address] [place] MCH (RBC) [Entitic mass]29.6 vlYqekat02.0-34.0[facility] on above:Order Comment: Specimen Type: BLOOD SPECIMENOrdering Facility: [facility] Address:[address] [place] [address] Performed By: #### 77120-3 ####[facility] LABIA [id number] [place] [address] [place] MCHC (RBC) [Mass/Vol]32.4 g/eMXvibje46.5-36.0[facility] on above:Order Comment: Specimen Type: BLOOD SPECIMENOrdering Facility: [facility] Address:[address] [place] [address] Performed By: #### 27332-3 ####[facility] LABPROCTOR [facility] [id number] [place] [address] [place] MCV (RBC) [Entitic vol]91.3 hUAzkgpv63.0-100.0[facility] on above:Order Comment: Specimen Type: BLOOD SPECIMENOrdering Facility: [facility] Address:[address] [place] [address] Performed By: #### 24326-6 ####[facility] LABCLIA [id number] [place] [address] [place] Nucleated RBC (Bld) [#/Vol]10*3/uLNormal<0.01[facility] on above:Order Comment: Specimen Type: BLOOD SPECIMENOrdering Facility: [facility] Address:[address] [place] [address] Performed By: #### 95227-8 ####[facility] LABIA [id number] [place] [address] [place] Platelet mean volume (Bld) [Entitic vol]9.5 fLNormal9.0-12.7CPeoples Hospital on above:Order Comment: Specimen Type: BLOOD SPECIMENOrdering Facility: [facility] Address:[address] [place], [place] [address]Performed By: #### 67725-1 ####[facility] LABIA [id number] [place] [address] [place] Platelets (Bld) [#/Vol]173 10*3/eJSgmthu213-935QjqzaexfkSouthwest General Health Center on above:Order Comment: Specimen Type: BLOOD SPECIMENOrdering Facility: [facility] Address:[address] [place] [address] Performed By: #### 71766-4 ####[facility] LABIA [id number] [place] [address] [place] RBC (Bld) [#/Vol]4.36 10*6/uLNormal4.20-6.00[facility] on above:Order Comment: Specimen Type: BLOOD SPECIMENOrdering Facility: [facility] Address:[address] [place], [place] [address]Performed By: #### 66831-6 ####[facility] LABIA [id number] [place] [address] [place] [facility]PITAL - CINCINNATIWBC (Bld) [#/Vol]9.38 10*3/uLNormal3.70-11.00[facility] Community HospitalComment on above:Order Comment: Specimen Type: BLOOD SPECIMENOrdering Facility: [facility] Address:[address] [place], [place] [address]Performed By: #### 83295-8 ####[facility] LABIA [id number] [place] [address] [place] AMERICAErythrocyte distribution width Auto (RBC) [Ratio]Ordered By: Gurpreet Pang on 42-94-8181Fymcnvtvsri distribution width (RBC) [Ratio]12.9 %11.5-15.0[facility] Hematocrit Auto (Bld) [Volume fraction]Ordered By: Gurpreet Pang on 09-17-2024 Hematocrit (Bld) [Volume fraction]39.8 %39.0-51.0[facility] Medical CenterHemoglobin [Mass/volume] in BloodOrdered By: Gurpreet Pang on 09-17-2024 Hemoglobin (Bld) [Mass/Vol]12.9 g/dLLow13.0-17.0[facility] CenterLaboratory - Chemistry and Chemistry - challengeOrdered By: Gurpreet Pang on 00-84-8155Naudjbp [Mass/Vol]9.2 mg/dL8.5-10.2FMagruder HospitalChloride [Moles/Vol]104 mmol/D57-988NxvsqtnibUniversity Hospitals Geneva Medical CenterCO2 [Moles/Vol]20 mmol/FTkn28-47OaeqmkxkxUniversity Hospitals Geneva Medical CenterCreatinine [Mass/Vol]1.11 mg/dL0.73-1.22[facility] CenterGlucose [Mass/Vol] 317 mg/rPDbof21-04OyviixzewUniversity Hospitals Geneva Medical CenterComment on above:The [place] Diabetes Association (ADA) provides guidance for cutoff [...] diabetes.Reference: Standardsof Medical Care in Diabetes 2016, [place] [employer] Association. Diabetes Care. 2016.39(Suppl 1). Magnesium [Mass/Vol]1.6 mg/dLLow1.7-2.3FMagruder Hospital Potassium [Moles/Vol]4.1 mmol/L3.7-5.1FThe Jewish Hospitalodium [Moles/Vol]136 mmol/S159-748GseinybldUniversity Hospitals Geneva Medical CenterUrea nitrogen [Mass/Vol]14 mg/dL9-24[facility] CenterLeukocytes [#/volume] corrected for nucleated erythrocytes in Blood by Automated counOrdered By: Gurpreet Pang on 70-62-3709FEX corrected for nucl RBC Auto (Bld) [#/Vol]9.38 k/uL3.70-11.00[facility] Auto (RBC) [Entitic mass] Ordered By: Gurpreet Pang on 11-74-9363AHZ (RBC) [Entitic mass]29.6 pg26.0-34.0 [facility] HospitalHC Auto (RBC) [Mass/Vol]Ordered By: Gurpreet Pang on 14-94-5228YUJH (RBC) [Mass/Vol]32.4 g/dL30.5-36.0Dun[facility] Memorial HospitalV Auto (RBC) [Entitic vol]Ordered By: Gurpreet Pang on 20-30-2536NHS (RBC) [Entitic vol]91.3 fL80.0-100.0[facility] CenterMagnesium SerPl-mCncon 15-63-9032Qbycezqzn [Mass/Vol]1.6 mg/dLLow1.7-2.3 [facility] on above:Order Comment: Specimen Type: BLOOD SPECIMENOrdering Facility: [facility] Address:[address] [place], [place] [address] [id number] By: #### 69705-2, 2777-1, 84448-7 ####[facility] LABCLIA [id number] [place] [address] [place] AMERICANo Panel InformationOrdered By: Gurpreet Pang on 36-62-6801Ihbwmuewg GFR (CKD-EPI)66 mL/min/1.73m???>=60[facility] Medical CenterComment on above:Estimated Glomerular Filtration Rate (eGFR) is calculated using the 2020 CKD-EPI creatinine equation. This equation utilizes serum creatinine, sex, and age as parameters. The creatinine assay has traceable calibration to isotope dilution-mass spectrometry. Refer to KDIGO guidelines for clinical interpretation. In patients with unstable renal function, e.g. those with acute kidney injury, the eGFRmay not accurately reflect actual GFR. Phosphorus Level2.4 mg/dLLow2.7-4.8[facility] Medical CenterNucleated RBC Auto (Bld) [#/Vol]Ordered By: Gurpreet Pang on 59-99-6045Aspvvyrzw RBC (Bld) [#/Vol]10*3/uL<0.01[facility] CenterOPERATIVE NOon 90-41-2881AMUDKCWMX NONormalWooster Community HospitalOPERATIVE NONormal [facility] HospitalPathology biopsy report Augie (Tiss)on 11-81-9769DP DISCLAIMERNormalCPeoples Hospital on above:Order Comment: Specimen Type: TISSUE SPECIMENOrdering Facility: [facility] Address: [address] [place], [place] [address]Ema [place], [place] [address]Eldrqi Comment: Laboratory Developed Test (LDT) Disclaimer:Performance characteristics of immunohist ochemical, immunofluorescent, and chromogenic in-situ hybridization tests have been determined by the performing laboratory within [facility]'s Jagdish Owusu Pathology and Laboratory Medicine Department ([facility], [facility], [facility], [facility], [facility], or [facility]) in a manner consistent with CLIA requirements. One or more of these tests may not have been cleared or approved by the FDA. [facility] is regulated under CLIA as qualified to perform high-complexity testing. These tests are used for clinical purposes. These should not be regarded as investigational or for research. Positive and negative controls stain appropriately.Performed By: #### 04483-9 ####[facility] LABCLIA [id number] [address] [place] [address] [facility] CENTERBLUNIVERSITY OF TENNESSEE [facility] FOR ADDITIONAL BIOMARKERS/MOLECULAR STUDIES [address] on above:Order Comment: Specimen Type: TISSUE SPECIMENOrdering Facility: [facility] Address: [address] [place], [place] [address]Performed By: #### 93915-1 ####[facility] LABIA [id number] [address] [place] [address] [facility] CENTERCASE [facility] on above:Order Comment: Specimen Type: TISSUE SPECIMENOrdering Facility: [facility] Address: [address] [place], [place] [address]Result Comment: Surgical Pathology Report Case: [id number] Provider: Gurpreet Pang MDCollected: 09/17/2024 10:21 AMOrdering Location: Admitting Received: 09/17/2024 11:44 AMPathologist: Chen Prieto MDSpecimens: A) - Parotid Gland, Left, Resection, left extended parotidectomy B) -Lymph Node (Specify Site in Comments), left level 2 lymph nodePerformed By: #### 51588-0 ####[facility] LABCLIA [id number] [address] [place] [address] [facility] CENTERCLINICAL [facility] Comment on above:Order Comment: Specimen Type: TISSUE SPECIMENOrdering Facility: [facility] Address: [address] [place] [address]Hlodjc Comment: 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]Performed By: #### 10544-1 ####[facility] LABCLIA [id number] [address] [place] [address] [place] AMERICADIAGNOSIS COMMENT NormalSouthwest General Health Center on above:Order Comment: Specimen Type: TISSUE SPECIMENOrdering Facility: [facility] Address: [address] [place], [place] [address]Performed By: #### 27010-6 ####[facility] LABCLIA [id number] [address] [place] [address] [place] OF [facility] SPECIALTY [facility]OS[facility] - CINCINNATIFINAL DIAGNOSISNormalCPeoples Hospital on above:Order Comment: Specimen Type: TISSUE SPECIMENOrdering Facility: [facility] Address: [address] [place], [place] [address]Result Comment: A. 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 (See comment and synoptic report.)- One lymph node, negative for malignancy (0/1).B. Lymph node,left level 2, excision:- One lymph node, negative for malignancy (0/1). at 1323 EDTPerformed By: #### 91870-1 ####[facility] LABCLIA [id number] [address] [place] [address] [place] OF [facility] PERFORMING LABNoSamaritan North Health Center on above: Order Comment: Specimen Type: TISSUE SPECIMENOrdering Facility: [facility] Address: [address] [place], [place] [address]Result Comment: Diagnostic interpretation performed at: [facility], [address] [place] [address], [address] [place] [address] CLIA# [id number] Director: COLTON Shresthaerformed By: #### 00077-5 ####[facility] LABCLIA [id number] [address] [place] [address] [facility] OF [facility]OS[facility] - CINCINNATIGROSS DESCRIPTIONNormBlanchard Valley Health System on above:Order Comment: Specimen Type: TISSUE SPECIMENOrdering Facility: [facility] Address: [address] [place], [place] [address]Result Comment: A. Parotid Gland, Left, ResectionLabeled: ???Left [...] lymph node candidateCassette Code:Totally submitted trisected in Z0Xuqtq examination performed at [facility], [address] [place] [address]LLG/HARPREET 09/17/24 1:21 PMPerformed By: #### 78237-5 ####[facility] LABCLIA [id number] [place] [address] [place] AMERICASYNOPTIC REPORTNormal [facility] Community HospitalComment on above:Order Comment: Specimen Type: TISSUE SPECIMENOrdering Facility: [facility] Address: [address] [id number] Comment: MAJOR SALIVARY GLANDSMAJOR SALIVARY GLANDS: RESECTION - All Zzcjjbtiu7if Edition - Protocol posted: 09/11/2022SPECIMEN Procedure: Parotidectomy, [...] pathology report. pT Category: pT2 pN Category: [id number] FINDINGS Additional Findings: None identifiedPerformed By: #### 34203-8 ####[facility] LABCLIA [id number] [place] [address] [place] AMERICAPhosphate SerPl-mCncon 63-60-1197Hlmycziuf [Mass/Vol]2.4 mg/dLLow2.7-4.8ClevelCritical access hospitalCombeaumont hospital on above:Order Comment: Specimen Type: BLOOD SPECIMENOrdering Facility: [facility] Address:[address] [place], [place] [address]Performed By: #### 46071- 9, 2777-1, 49197-3 ####[facility] LABCLIA [id number][place] [address] [place] AMERICAPlatelet mean volume Auto (Bld) [Entitic vol]Ordered By: Gurpreet Pang on 46-35-6755Uzgyptvc mean volume (Bld) [Entitic vol]9.5 fL9.0-12.7FMagruder Hospital Platelets Auto (Bld) [#/Vol]Ordered By: Gurpreet Pang on 28-69-6508Wezacztmo (Bld) [#/Vol]173 10*3/uI021-004KtiivfhmiUniversity Hospitals Geneva Medical CenterRBC Auto (Bld) [#/Vol]Ordered By: Gurpreet Pang on 32-51-0209FJQ (Bld) [#/Vol]4.36 10*6/uL 4.20-6.00Avita Health Systemerum or plasma anion gap determinationOrdered By: Gurpreet Pang on 53-35-0766Awnrk gap [Moles/Vol]12 mmol/L8-15[facility] CenterCNPNon 33-51-6400DAAJFxqcqnNwxphrqdw Clinic ClevelandB[facility] metabolic 2000 panelon 96-95-4125Gacbo gap [Moles/Vol]12 mmol/LNormal8-15[facility] on above:Order Comment: Specimen Type: BLOOD SPECIMENOrdering Facility: [facility] Address:[address] [place], [place] [address]Performed By: #### 32601-0 ####[facility] LABIA [id number] [place] [address] [place] OF AMERICACalcium [Mass/Vol]9.6 mg/dLNormal 8.5-10.2CPeoples Hospital on above:Order Comment: Specimen Type: BLOOD SPECIMENOrdering Facility: [facility] Address:[address] [place], [place] [address]Performed By: #### 09482-0 ####[facility] LABIA [id number] [address] [address] [place] OF AMERICAChloride [Moles/Vol]103 mmol/QYmfsvz64-416WomxdztbcSouthwest General Health Center on above:Order Comment: Specimen Type: BLOOD SPECIMENOrdering Facility: [facility] Address:[address] [place], [place] [address]Performed By: #### 31759-4 ####[facility] LABIA [id number] [place] [address] [place] AMERICACO2 [Moles/Vol]21 mmol/QMtl88-74BmtmjqplxSouthwest General Health Center on above:Order Comment: Specimen Type: BLOOD SPECIMENOrdering Facility: [facility] Address:[address] [place], [place] [address]Performed By: #### 36901-0 ####[facility] [id number] [place] [address] [place] AMERICACreatinine [Mass/Vol] 1.24 mg/dLHigh0.73-1.22[facility] on above:Order Comment: Specimen Type: BLOOD SPECIMENOrdering Facility: [facility] Address:[address] [place], [place] [address]Performed By: #### 33306-8 ####[facility] [id number] [place] [address] [place] AMERICACreatinine and Glomerular filtration rate.predicted panel (S/P/Bld)58 mL/min/1.73m???Low>=60[facility] on above:Order Comment: Specimen Type: BLOOD SPECIMENOrdering Facility: [facility] Address:[address] [place], [place] [address]Result Comment: Estimated Glomerular Filtration Rate (eGFR) is calculated using the 2020 CKD-EPI creatinine equation. This equation utilizes serum creatinine, sex, and age as parameters. The creatinine assay has traceable calibration to isotope dilution-mass spectrometry. Refer to KDIGO guidelines for clinical interpretation. In patients with unstable renal function, e.g. those with acute kidney injury, the eGFR may not accurately reflect actual GFR.Performed By: #### 46638-6 ####[facility] LABIA [id number] [place] [address] [place] AMERICAGlucose [Mass/Vol]162 mg/yXCgaj53-60FhazhfyhwSouthwest General Health Center on above:Order Comment: Specimen Type: BLOOD SPECIMENOrdering Facility: [facility] Address:[address] [place], [place] [address]Result Comment: The [place] Diabetes Association (ADA) provides guidance for cutoff [...] Standards of Medical Care in Diabetes 2016, [place] [employer] Association. Diabetes Care. 2016.39(Suppl 1).Performed By: #### 81130-0 ####[facility] LABCLIA [id number] [place] [address] [place] AMERICAPotassium [Moles/Vol]4.2 mmol/LNormal3.7-5.1CSelect [facility] Comment on above:Order Comment: Specimen Type: BLOOD SPECIMENOrdering Facility: [facility] Address:[address] [place] [address] Performed By: #### 46954-6 ####[facility] LABIA [id number] [place] [address] [place] Sodium [Moles/Vol]136 mmol/HPsdguz355-172ExwxjeilmSouthwest General Health Center on above:Order Comment: Specimen Type: BLOOD SPECIMENOrdering Facility: [facility] Address:[address] [place], [place] [address]Performed By: #### 96238-7 ####[facility] LABIA [id number] [place] [address] [place] AMERICAUrea nitrogen [Mass/Vol]15 mg/dLNormal9-24[facility] Clinic ClevelandComment on above:Order Comment: Specimen Type: BLOOD SPECIMENOrdering Facility: [facility] Address:[address] [place], [place] [address]Performed By: #### 43596- 2 ####[facility]ENTERIA [id number] [address]CBC panel Auto (Bld)on 09-08-2024 Erythrocyte distribution width (RBC) [Ratio]12.9 %Zujimj29.5-15.0[facility]oster Community HospitalComment on above:Order Comment: Specimen Type: BLOOD SPECIMENOrdering Facility: [facility] Address:[address] [place], [place] [address]Performed By: #### 34021-1 ####[facility] [id number] [address] STREETHematocrit (Bld) [Volume fraction]40.9 %Nofpef74.0-51.0[facility] on above:Order Comment: Specimen Type: BLOOD SPECIMENOrdering Facility: [facility] Address:[address] [place], [place] [address]Performed By: #### 59535-2 ####[facility]ENTERIA [id number] [address] [place] Hemoglobin (Bld) [Mass/Vol]13.2 g/yXQlxyqr96.0-17.0[facility] Comment on above:Order Comment: Specimen Type: BLOOD SPECIMENOrdering Facility: [facility] Address:[address] [place] [address] Performed By: #### 56873-0 ####[facility]IA [id number] [place] [address] [place] MCH (RBC) [Entitic mass]29.6 pfDsdfiy45.0-34.0[facility] on above:Order Comment: Specimen Type: BLOOD SPECIMENOrdering Facility: [facility] Address:[address] [place], [place] [address] Performed By: #### 07583-4 ####[facility] LABIA [id number] [place] [address] [place] MCHC (RBC) [Mass/Vol]32.3 g/xCKgxkbj61.5-36.0[facility] on above:Order Comment: Specimen Type: BLOOD SPECIMENOrdering Facility: [facility] Address:[address] [place] [address] Performed By: #### 14152-5 ####[facility] LABIA [id number] [place] [address] [place] MCV (RBC) [Entitic vol]91.7 yJHzgtan46.0-100.0[facility] on above:Order Comment: Specimen Type: BLOOD SPECIMENOrdering Facility: [facility] Address:[address] [place] [address] Performed By: #### 78815-7 ####[facility]IA [id number] [place] [address] [place] Nucleated RBC (Bld) [#/Vol]10*3/uLNormal<0.01[facility] on above:Order Comment: Specimen Type: BLOOD SPECIMENOrdering Facility: [facility] Address:[address] [place] [address] Performed By: #### 27238-3 ####[facility] LABIA [id number] [place] [address] [place] Platelet mean volume (Bld) [Entitic vol]10.6 fLNormal9.0-12.7CPeoples Hospital on above:Order Comment: Specimen Type: BLOOD SPECIMENOrdering Facility: [facility] Address:[address] [place], [place] [address]Performed By: #### 91176-6 ####[facility] LABIA [id number] [place] [address] [place] Platelets (Bld) [#/Vol]222 10*3/pQUwecta465-661YrzefsyxaSouthwest General Health Center on above:Order Comment: Specimen Type: BLOOD SPECIMENOrdering Facility: [facility] Address:[address] [place] [address] Performed By: #### 59842-5 ####[facility] LABIA [id number] [place] [address] [place] RBC (Bld) [#/Vol]4.46 10*6/uLNormal4.20-6.00[facility] on above:Order Comment: Specimen Type: BLOOD SPECIMENOrdering Facility: [facility] Address:[address] [place], [place] [address]Performed By: #### 13570-8 ####[facility]ENTERIA [id number] [address] STATES OF [facility] - CINCINNATIWBC (Bld) [#/Vol]6.50 10*3/uLNormal3.70-11.00[facility] on above:Order Comment: Specimen Type: BLOOD SPECIMENOrdering Facility: [facility] Address:[address] [place], [place] [address]Performed By: #### 72006-1 ####[facility]ENTERIA [id number] [place] [address] [place] AMERICACNCOon 05-67-3652YDUBKftodn Text NormalWooster Community HospitalECG COMPLETEon 04-16-9108FVW COMPLETENormal [facility] Community HospitalErythrocyte distribution width Auto (RBC) [Ratio] Ordered By: Gurpreet Pang on 10-99-1195Bfzykmfyopy distribution width (RBC) [Ratio]12.9 %11.5-15.0[facility] Medical CenterHISTORY PHYSICALon 58-27-6142AYRLUVS PHYSICALNormalCSelect Medical Specialty Hospital - CantonHematocrit Auto (Bld) [Volume fraction]Ordered By: Gurpreet Pang on 37-11-0264Sgwklvkeqn (Bld) [Volume fraction]40.9 %39.0-51.0[facility] Medical CenterHemoglobin [Mass/volume] in BloodOrdered By: Gurpreet Lorie on 25-70-6701Matgaviigv (Bld) [Mass/Vol]13.2 g/dL13.0-17.0[facility] CenterLaboratory - Chemistry and Chemistry - challengeOrdered By: Gurpreet Pang on 09-08-2024 Calcium [Mass/Vol]9.6 mg/dL8.5-10.2FMagruder HospitalChloride [Moles/Vol]103 mmol/T05-717NrwvkymxtUniversity Hospitals Geneva Medical CenterCO2 [Moles/Vol]21 mmol/LEit12-62UswvvjpobUniversity Hospitals Geneva Medical CenterCreatinine [Mass/Vol]1.24 mg/dL High0.73-1.22[facility] CenterGlucose [Mass/Vol]162 mg/dLHigh 74-99[facility] CenterComment on above:The [place] Diabetes Association (ADA) provides guidance for cutoff [...] diabetes.Reference: Standardsof Medical Care in Diabetes 2016, [place] [employer] Association. Diabetes Care. 2016.39(Suppl 1). Potassium [Moles/Vol]4.2 mmol/L3.7-5.1FThe Jewish Hospitalodium [Moles/Vol]136 mmol/F756-427JdgxpuiauUniversity Hospitals Geneva Medical CenterUrea nitrogen [Mass/Vol]15 mg/dL9-24[facility] CenterLeukocytes [#/volume] corrected for nucleated erythrocytes in Blood by Automated counOrdered By: Gurpreet Pang on 08-74-6986JSW corrected for nucl RBC Auto (Bld) [#/Vol]6.50 k/uL3.70-11.00[facility] HospitalH Auto (RBC) [Entitic mass] Ordered By: Gurpreet Pang on 34-06-9148EEJ (RBC) [Entitic mass]29.6 pg26.0-34.0 [facility] CenterMCHC Auto (RBC) [Mass/Vol]Ordered By: Gurpreet Pang on 73-16-0524THTA (RBC) [Mass/Vol]32.3 g/dL30.5-36.0[facility]lap Memorial HospitalV Auto (RBC) [Entitic vol]Ordered By: Gurpreet Pang on 77-82-5728MIZ (RBC) [Entitic vol]91.7 fL80.0-100.0[facility] CenterNo Panel InformationOrdered By: Gurpreet Pang on 13-80-9246Qmmckgetq GFR (CKD-EPI)58 mL/min/1.73m???Low>=60[facility] CenterComment on above:Estimated Glomerular Filtration Rate (eGFR) is [...] Auto (Bld) [#/Vol]Ordered By: Gurpreet Pang on 48-63-5450Taeneubce RBC (Bld) [#/Vol] 10*3/uL<0.01[facility] Medical CenterPlatelet mean volume Auto (Bld) [Entitic vol]Ordered By: Gurpreet Pang on 92-49-3930Azrglhda mean volume (Bld) [Entitic vol]10.6 fL9.0-12.7FMagruder HospitalPlatelets Auto (Bld) [#/Vol]Ordered By: Gurpreet Pang on 36-64-7340Wtbifxprh (Bld) [#/Vol]222 10*3/gT179-520HvyljmbtxUniversity Hospitals Geneva Medical CenterRBC Auto (Bld) [#/Vol]Ordered By: Gurpreet Pang on 44-57-2383AGK (Bld) [#/Vol]4.46 10*6/uL4.20-6.00[facility]ita Health Systemerum or plasma anion gap determinationOrdered By: Gurpreet Lorie on 68-47-8734Vzblt gap [Moles/Vol]12 mmol/L8-15[facility] CenterXR CHEST 2V FRONTAL/LATon 54-74-5843DV CHEST 2V FRONTAL/LATNormal Wooster Community HospitalXR Chest PA and Lateralon 39-01-0369CZYQXUWEKV: MILD BIBASILAR ATELECTASIS/INFILTRATE, NEW SINCE 05/22/2017. Remotely Piloted Vehicle Controller: PSCB Transcribe Date/Time: Sep 08 2024 5:49P Dictated by : SILVIA COHN MD This examination was interpreted and the report reviewed and electronically signed by: SILVIA COHN MD on Sep 08 2024 5:50PM [facility] DIVISION OF RADIOLOGY* * *Final Report* * [...] visualized right proximal humerus. DIVISION OF RADIOLOGYProvider, [facility] [place] - 09/08/2024 * * *Final Report* * [...] IMPRESSION: MILD BIBASILAR ATELECTASIS/INFILTRATE, NEW SINCE 05/22/2017. Remotely Piloted Vehicle Controller: CONOR Transcribe Date/Time: Sep 08 2024 5:49P Dictated by : SILVIA COHN MD This examination was interpreted and the report reviewed and electronically signed by: SILVIA COHN MD on Sep 08 2024 5:50PM [facility] HospitalRadiology Study observation (narrative)[facility] CantonXR Chest PA and LateralOrdered By: Ccf Provider on 04-82-3909Vetirsoei ClinicCNPNon 34-74-9998AJBBMocbnnRvxawxqge Clinic ClevelandCNOVon 10-85-4514RIOIQiutaf [facility] Community HospitalCNPNon 59-12-2863FPVLDvxabuWaxhszscy Clinic [place] ALBUMIN/CREATININE RATIO, URINEon 94-27-6364Cwfglrd DL <= 20 mg/L (U) [Mass/Vol] 191.5 mg/LNormalSouthwest General Health Center on above:Order Comment: Specimen Type: URINE SPECIMENOrdering Facility: Dr Mishel Linares Office Address:[address] [place], [place] [address]Performed By: #### UACR ####[facility] LABCLIA [id number] [address] OF [facility] CINCINNATIAlbumin/Creatinine (U) [Mass ratio] 127 mg/gHigh<30[facility] on above:Order Comment: Specimen Type: URINE SPECIMENOrdering Facility: Dr Mishel Linares Office Address:[address] [place], [place] [address]Result Comment: Adult Male and Female Nephrotic Criteria:<30 mg/g is considered normal to zazvrpnnyawcxzp56-139 mg/g is considered moderately increased>300 mg/g is considered severely increasedKDIGO. (2013). KDIGO 2012 Clinical Practice Guideline for the Evaluation and Management of Chronic Kidney Disease. Official Journal of the International Society of Nephrology, 3(1), 1-150.Performed By: #### UACR ####[facility] LABCLIA [id number] [place] [address] [place] AMERICACreatinine (U) [Mass/Vol]150.6 mg/cHOzxopg71.0-300.0[facility] on above:Order Comment: Specimen Type: URINE SPECIMENOrdering Facility: Dr Clark and Dr Linares Office Address:[address] [place], [place] [address]Performed By: #### UACR ####[facility] LABIA [id number] [place] [address] [place] AMERICAAlbumin [Mass/volume] in Serum or Plasmaon 47-91-7970Zrxxvlt [Mass/Vol]3.49 g/dL3.43-5.41[facility] Medical CenterB2 Microglob SerPl-mCncon 76-96-2418Aenv-2-Microglobulin [Mass/Vol]4.5 ug/mLHigh<3.1CPeoples Hospital on above:Order Comment: Specimen Type: BLOOD SPECIMENOrdering Facility: [facility] Address:[address] [place], [place] [address]Result Comment: Beta-2 Microglobulin test is performed using the [employer] immunoturbidimetric method. Results obtained with different methods or kits cannot be used interchangeably.Performed By: #### 2885-2, 1951-03 ####[facility] LABCLIA [id number] [place] [address] [place] AMERICABasophils Auto (Bld) [#/Vol]on 61-36-7416Hhaimuhqe (Bld) [#/Vol]10*3/uL<0.11[facility] CenterBasophils/100 WBC Auto (Bld) on 32-70-4825Smrytiija/100 WBC (Bld)0.4 %[facility] CenterBlood manual differential comment interpretation narrativeon 48-79-2513Aihngy differential comment Augie (Bld) [Interp]AutoUniversity Hospitals Geneva Medical CenterCBC W Auto Differential panel (Bld)on 15-39-9235Yejsmknwr (Bld) [#/Vol]10*3/uLNormal <0.11CPeoples Hospital on above:Order Comment: Specimen Type: BLOOD SPECIMENOrdering Facility: [facility] Address:[address] [place], [place] [address]Performed By: #### 67194-6 ####[facility] LABCLIA [id number] [place] [address] Basophils/100 WBC (Bld)0.4 %NormalSouthwest General Health Center on above: Order Comment: Specimen Type: BLOOD SPECIMENOrdering Facility: [facility] Address:[address] [place], [place] [address]Performed By: #### 17494- 8 ####[facility] LABCLIA [id number] [place], [place] [address]Pktwhadqzran cell count method Nom (Bld)AutoNormal [facility] on above:Order Comment: Specimen Type: BLOOD SPECIMENOrdering Facility: [facility] Address:[address] [place], [place] [address]Performed By: #### 58437-9 ####[facility] LABIA [id number] [place], [place] [address]Nclcdmuhwtn (Bld) [#/Vol]0.11 10*3/uLNormal<0.46[facility] on above: Order Comment: Specimen Type: BLOOD SPECIMENOrdering Facility: [facility] Address:[address] [place], [place] [address]Performed By: #### 67699- 8 ####[facility]ITALMALA [facility] LABCLIA [id number] [place], [place] [address]Selctxnwjgx/100 WBC (Bld)1.9 %NormalSouthwest General Health Center on above:Order Comment: Specimen Type: BLOOD SPECIMENOrdering Facility: [facility] Address:[address] [place], [place] [address]Performed By: #### 62096-0 ####[facility] LABIA [id number] [place], [place] [address]Cyihavmxwyn distribution width (RBC) [Ratio]12.6 %Rmhiiz43.5-15.0[facility] on above: Order Comment: Specimen Type: BLOOD SPECIMENOrdering Facility: [facility] Address:[address] [place], [place] [address]Performed By: #### 30300- 8 ####[facility] LABIA [id number] [place], [place] [address]Npvtuapgco (Bld) [Volume fraction]39.4 %Jsslzh72.0-51.0 [facility] on above:Order Comment: Specimen Type: BLOOD SPECIMENOrdering Facility: [facility] Address:[address] [place], [place] [address]Performed By: #### 89985-8 ####[facility] LABIA [id number] [place], [place] [address]Oxmhridanl (Bld) [Mass/Vol]13.2 g/kXBzyyfq34.0-17.0[facility] on above: Order Comment: Specimen Type: BLOOD SPECIMENOrdering Facility: [facility] Address:[address] [place], [place] [address]Performed By: #### 08742- 8 ####[facility] LABIA [id number] [place], [place] [address]Yrdznnwo granulocytes (Bld) [#/Vol]10*3/uLNormal<0.10 [facility] on above:Order Comment: Specimen Type: BLOOD SPECIMENOrdering Facility: [facility] Address:[address] [place], [place] [address]Performed By: #### 74989-7 ####[facility] LABCLIA [id number] [place], [place] [address]Snnpstbl granulocytes/100 WBC (Bld)0.2 %[facility] on above: Order Comment: Specimen Type: BLOOD SPECIMENOrdering Facility: [facility] Address:[address] [place], [place] [address]Performed By: #### 79358- 8 ####[facility] LABCLIA [id number] [place], [place] [address]Eqgykzpctpo (Bld) [#/Vol]1.56 10*3/uLNormal1.00-4.00 [facility] on above:Order Comment: Specimen Type: BLOOD SPECIMENOrdering Facility: [facility] Address:[address] [place], [place] [address]Performed By: #### 66325-5 ####[facility] LABCLIA [id number] [place], [place] [address]Huuhffggtmq/100 WBC (Bld)27.6 %NormalSouthwest General Health Center on above:Order Comment: Specimen Type: BLOOD SPECIMENOrdering Facility: [facility] Address:[address] [place], [place] [address]Performed By: #### 96401-3 ####[facility] LABCLIA [id number] [place], [place] [address]DAL (RBC) [Entitic mass]30.6 xvAfsvpm29.0-34.0[facility] on above:Order Comment: Specimen Type: BLOOD SPECIMENOrdering Facility: [facility] Address:[address] [place], [place] [address]Performed By: #### 76902-1 ####[facility] LABCLIA [id number] [place], [place] [address]YQLA (RBC) [Mass/Vol]33.5 g/wLOhauqx96.5-36.0[facility] on above: Order Comment: Specimen Type: BLOOD SPECIMENOrdering Facility: [facility] Address:[address] [place], [place] [address]Performed By: #### 23475- 8 ####[facility] LABCLIA [id number] [place], [place] [address]HCY (RBC) [Entitic vol]91.4 yUBnsmut49.0-100.0[facility] on above:Order Comment: Specimen Type: BLOOD SPECIMENOrdering Facility: [facility] Address:[address] [place], [place] [address]Performed By: #### 15921-9 ####[facility] LABIA [id number] [place], [place] [address]Yhfzpixme (Bld) [#/Vol]0.64 10*3/uLNormal<0.87[facility] on above:Order Comment: Specimen Type: BLOOD SPECIMENOrdering Facility: [facility] Address:[address] [place], [place] [address]Performed By: #### 06142- 8 ####[facility] LABCLIA [id number] [place], [place] [address]Usseosxza/100 WBC (Bld)11.3 %NormalSouthwest General Health Center on above:Order Comment: Specimen Type: BLOOD SPECIMENOrdering Facility: [facility] Address:[address] [place], [place] [address]Performed By: #### 06363-3 ####[facility] LABIA [id number] [place], [place] [address]Wlgqfrdfxjn (Bld) [#/Vol]3.32 10*3/uLNormal1.45-7.50[facility] on above:Order Comment: Specimen Type: BLOOD SPECIMENOrdering Facility: [facility] Address:[address] [place], [place] [address]Performed By: #### 71801-9 ####[facility] LABCLIA [id number] [place], [place] [address]Txawfblyhie/100 WBC (Bld)58.6 %NormalSouthwest General Health Center on above:Order Comment: Specimen Type: BLOOD SPECIMENOrdering Facility: [facility] Address:[address] [place], [place] [address]Performed By: #### 51614-1 ####[facility] LABCLIA [id number] [place], [place] [address]Omktgxpdb RBC (Bld) [#/Vol] 10*3/uLNormal<0.01[facility] on above:Order Comment: Specimen Type: BLOOD SPECIMENOrdering Facility: [facility] Address:[address] [place], [place] [address]Performed By: #### 10568-5 ####[facility] LABCLIA [id number] [place], [place] [address]Aolrfhpch RBC/100 WBC (Bld) [Ratio]0.0 /100 WBCNormal [facility] on above:Order Comment: Specimen Type: BLOOD SPECIMENOrdering Facility: [facility] Address:[address] [place], [place] [address]Performed By: #### 84894-1 ####[facility] LABCLIA [id number] [place], [place] [address]Qmdnfxmf mean volume (Bld) [Entitic vol]9.6 fLNormal9.0-12.7CPeoples Hospital on above:Order Comment: Specimen Type: BLOOD SPECIMENOrdering Facility: [facility] Address:[address] [place] [address] Performed By: #### 18035-1 ####[facility] LABCLIA [id number] [place], [place] [address]Wsbwcisem (Bld) [#/Vol]201 10*3/sDXqrzud473-793FctkevxhhSouthwest General Health Center on above:Order Comment: Specimen Type: BLOOD SPECIMENOrdering Facility: [facility] Address:[address] [place], [place] [address]Performed By: #### 83676-0 ####[facility] LABCLIA [id number] [place], [place] [address]BLB (Bld) [#/Vol]4.31 10*6/uLNormal4.20-6.00[facility] on above:Order Comment: Specimen Type: BLOOD SPECIMENOrdering Facility: [facility] Address:[address] [place], [place] [address]Performed By: #### 74531-5 ####[facility] LABIA [id number] [place], [place] [address]XAN (Bld) [#/Vol]5.66 10*3/uLNormal3.70-11.00[facility] on above: Order Comment: Specimen Type: BLOOD SPECIMENOrdering Facility: [facility] Address:[address] [place], [place] [address]Performed By: #### [id number]- [id number] ####[facility] LABIA [id number] [place], [place] [address]RTPZyt 21-11-6536LILNFfwfrgJootsdknv Clinic [place] CNOVSPon 78-89-5493QFBODLKmfrtkOhhxgognr Clinic ClevelandCalcium.ionized [Moles/Vol]on 29-06-0985Owomtsr.ionized (Bld) [Mass/Vol]1.27 mmol/LNormal 1.08-1.30[facility] on above:Order Comment: Specimen Type: BLOOD SPECIMENOrdering Facility: [facility] Address:[address] [place], [place] [address]Performed By: #### 1995-0 ####[facility] LABCLIA [id number] [facility] CENTERJZWIKSHZALN47[place]CR[place] [address] [place] AMERICACalcium.ionized adjusted to pH 7.4 (Bld) [Moles/Vol]1.24 mmol/LNormal1.08-1.30[facility] on above:Order Comment: Specimen Type: BLOOD SPECIMENOrdering Facility: [facility] Address:[address] [place], [place] [address]Performed By: #### 1994-0 ####[facility] LABCLIA [id number] [facility] [id number] [place], [place] [id number] [place] OF AMERICAComprehensive metabolic 2000 panelon 87-88-7316Pxltedn [Mass/Vol]3.7 g/dLLow3.9-4.9CSelect [facility] Comment on above:Order Comment: Specimen Type: BLOOD SPECIMENOrdering Facility: [facility] Address:[address] [place] [address] Performed By: #### 2777-1, 12799-8, 3084-1, 2532-0 ####[facility] LABCLIA [id number] [place], [place] [address]EHU [Catalytic activity/Vol]99 U/SFiinik37-743WxvsexkudSouthwest General Health Center on above:Order Comment: Specimen Type: BLOOD SPECIMENOrdering Facility: [facility] Address:[address] [place], [place] [address]Performed By: #### 2777-1, 51041-9, 3084-1, 2532-0 ####[facility] LABCLIA [id number] [place], [place] [address]EUK [Catalytic activity/Vol]13 U/YGadppj42-35CshlppwfaSouthwest General Health Center on above:Order Comment: Specimen Type: BLOOD SPECIMENOrdering Facility: [facility] Address:[address] [place], [place] [address]Performed By: #### 2777-1, 94181-9, 3084-1, 2532- 0 ####[facility] LABCLIA [id number] [place], [place] [address]Lbzwu gap [Moles/Vol]8 mmol/LNormal8-15[facility] on above:Order Comment: Specimen Type: BLOOD SPECIMENOrdering Facility: [facility] Address:[address] [place], [place] [address]Performed By: #### 2777-1, 24372-5, 3084-1, 2532-0 ####AIYANANMMALA [facility] LABCLIA [id number] [place], [place] [address]DND [Catalytic activity/Vol]19 U/DSwkcce15-33FsiyqffdwSouthwest General Health Center on above:Order Comment: Specimen Type: BLOOD SPECIMENOrdering Facility: [facility] Address:[address] [place], [place] [address]Performed By: #### 2777-1, 24594-0, 3084-1, 2532-0 ####AIYANANMMALA [facility] LABCLIA [id number] [place], [place] [address]Syvoncixv [Mass/Vol]0.3 mg/dL Normal0.2-1.3CPeoples Hospital on above:Order Comment: Specimen Type: BLOOD SPECIMENOrdering Facility: [facility] Address:[address] [place], [place] [address]Performed By: #### 2777-1, 64913-2, 3084-1, 2532- 0 ####[facility] LABCLIA [id number] [place], [place] [address]Mxlzgfv [Mass/Vol]9.5 mg/dLNormal8.5-10.2CPeoples Hospital on above:Order Comment: Specimen Type: BLOOD SPECIMENOrdering Facility: [facility] Address:[address] [place], [place] [address]Performed By: #### 2777-1, 46311-0, 3084-1, 2532-0 ####AIYANACARLOS [facility] LABCLIA [id number] [place], [place] [address]Eimbdism [Moles/Vol]101 mmol/LEddjpq32-450SfxgaizpsSouthwest General Health Center on above: Order Comment: Specimen Type: BLOOD SPECIMENOrdering Facility: [facility] Address:[address] [place] [address]Agsqnqpvv By: #### 2777- 1, 90651-8, 3084-1, 2532-0 ####[facility] LABCLIA [id number] [place], [place] [address]AI9 [Moles/Vol]25 mmol/LNormal 22-30[facility] on above:Order Comment: Specimen Type: BLOOD SPECIMENOrdering Facility: [facility] Address:[address] [place], [place] [address]Performed By: #### 2777-1, 69213-5, 3084-1, 2532-0 ####[facility] LABCLIA [id number] [place], [place] [address]Qijgulnoij [Mass/Vol]1.15 mg/dLNormal0.73-1.22[facility] on above:Order Comment: Specimen Type: BLOOD SPECIMENOrdering Facility: [facility] Address:[address] [place], [place] [address]Performed By: #### 2777-1, 31434-2, 3084-1, 2532-0 ####[facility] LABCLIA [id number] [place], [place] [address]Gxptvavpah and Glomerular filtration rate.predicted panel (S/P/Bld)63 mL/min/1.73m???Normal>=60[facility] on above:Order Comment: Specimen Type: BLOOD SPECIMENOrdering Facility: [facility] Address:[address] [place], [place] [address]Result Comment: Estimated Glomerular Filtration Rate (eGFR) is [...] accurately reflect actual GFR.Performed By: #### 2777-1, 81128-9, 3083-03, 0 ####[facility] LABCLIA [id number] [place], [place] [address]Haqjpfh [Mass/Vol]279 mg/yEVllj57-45 [facility] on above:Order Comment: Specimen Type: BLOOD SPECIMENOrdering Facility: [facility] Address:[address] [place] [address]Iqnuke Comment: The [place] Diabetes Association (ADA) provides guidance for cutoff [...] Standards of Medical Care in Diabetes 2016, [place] Diabetes Association. Diabetes Care. 2016.39(Suppl 1).Performed By: #### 2777-1, 29120-6, 3083-03, ####[facility] LABCLIA [id number] [place], [place] [address]Imyjgradr [Moles/Vol]4.2 mmol/L Normal3.7-5.1CPeoples Hospital on above:Order Comment: Specimen Type: BLOOD SPECIMENOrdering Facility: [facility] Address:[address] [place], [place] [address]Srrtsdnjl By: #### 2777-1, 83974-1, 3083-03, 0 ####[facility] LABCLIA [id number] [place], [place] [address]Blgxidr [Mass/Vol]6.6 g/dLNormal6.3-8.0[facility] on above:Order Comment: Specimen Type: BLOOD SPECIMENOrdering Facility: [facility] Address:[address] [place], [place] [address]Performed By: #### 2777-1, 19431-8, 3084-1, 2532-0 ####[facility] LABCLIA [id number] [place], [place] [address]Ivwzjt [Moles/Vol]134 mmol/LPya931-148OmzyhsgqySouthwest General Health Center on above:Order Comment: Specimen Type: BLOOD SPECIMENOrdering Facility: [facility] Address:[address] [place], [place] [address]Performed By: #### 2777- 1, 15129-2, 3084-1, 2532-0 ####[facility] LABCLIA [id number] [place], [place] [address]Zbhj nitrogen [Mass/Vol]15 mg/dL Normal9-24[facility] on above:Order Comment: Specimen Type: BLOOD SPECIMENOrdering Facility: [facility] Address:[address] [place], [place] [address]Performed By: #### 2777-1, 08088-7, 3084-1, 2532- 0 ####[facility] LABCLIA [id number] [place], [place] [address]Bcqbyeyfpip/100 WBC Auto (Bld)on 08-19-2024 Eosinophils/100 WBC (Bld)1.9 %[facility] Medical CenterErythrocyte distribution width Auto (RBC) [Ratio]on 19-18-8363Jvbotiuckay distribution width (RBC) [Ratio]12.6 %11.5-15.0[facility] Medical CenterGlucose mean value [Mass/volume] in Blood Estimated from glycated hemoglobinon 34-47-7145Fvwnzju glucose Estimated from glycated hemoglobin (Bld) [Mass/Vol]169 mg/dLUniversity Hospitals Geneva Medical CenterComment on above:eAG: (Estimated average glucose) is a calculated value from HgbA1c and is technical sales representative of the average blood glucose level in the last 2-3 month period.HbA1c (Bld)on 11-06-8940Necqfjg glucose Estimated from glycated hemoglobin (Bld) [Mass/Vol]169 mg/dLNoSamaritan North Health Center on above:Order Comment: Specimen Type: BLOOD SPECIMENOrdering Facility: Dr Clark and Dr Linares Office Address:[address] [place] [address] Comment: eAG: (Estimated average glucose) is a calculated value from HgbA1c and is technical sales representative of the average blood glucose level in the last 2-3 month period.Performed By: #### 74553-0 ####[facility] [id number] [address] STATES OF XFREXITEzP4l (Bld) [Mass fraction]7.5 %High4.3-5.6 [facility] on above:Order Comment: Specimen Type: BLOOD SPECIMENOrdering Facility: Dr Mishel Linares Office Address:[address] [place] [address] Comment: [place] Diabetes Association guidelines indicate that patients with HgbA1c in the range 5.7-6.4% are at increased risk for development of diabetes, and intervention by lifestyle modif ication may be beneficial. HgbA1c greater or equal to 6.5% is considered diagnostic of diabetes.Performed By: #### 75840-6 ####[facility] LABIA [id number] [place] [id number] [place] OF AMERICAHematocrit Auto (Bld) [Volume fraction]on 83-94-0596Cjfcffmsfx (Bld) [Volume fraction]39.4 %39.0-51.0[facility] Hemoglobin A1c percentageon 80-25-5653UlX6n (Bld) [Mass fraction]7.5 %High 4.3-5.6FMagruder HospitalComment on above:[place] Diabetes Association guidelines indicate that patients with HgbA1c in the range 5.7-6.4% are at increased risk for development of diabetes, and intervention by lifestyle modification may be beneficial. HgbA1c greater or equal to 6.5% is considered diagnostic of diabetes.Hemoglobin [Mass/volume] in Bloodon 38-97-3678Rbrsqigbee (Bld) [Mass/Vol]13.2 g/dL13.0-17.0[facility] IMMUNOFIXATION SCREEN, SERUMon 27-44-3197INMYRPRBOBIMFV (MPA)Atypical restricted bands are present in the IgG and kappa regions. Consistent with IgG kappa monoclonal gammopathy.NormalSouthwest General Health Center on above:Order Comment: Specimen Type: BLOOD SPECIMENOrdering Facility: [facility] Address:[address] [place], [place] [address]Performed By: #### IFESC ####[facility] LABCLIA [id number] [place] [address] [place] OF AMERICAMPA RESULTM protein is present. AbnormalNo M protein is identified.[facility] on above: Order Comment: Specimen Type: BLOOD SPECIMENOrdering Facility: [facility] Address:[address] [place], [place] [address]Performed By: #### IFESC ####[facility] LABCLIA [id number] [place] [address] [place] OF AMERICASTAFF REVIEW (MPA)Reviewed by Kira Reyes MDNormalCPeoples Hospital on above:Order Comment: Specimen Type: BLOOD SPECIMENOrdering Facility: [facility] Address:[address] [place], [place] [address]Performed By: #### IFESC ####[facility] LABCLIA [id number] [facility]ALK [address] [place] [address] [place] OF AMERICAIMMUNOGLOBULINS,IGG,IGA,IGMon 16-12-2520DiK [Mass/Vol]257 mg/tYWljdob00-820DshmdwpilSouthwest General Health Center on above:Order Comment: Specimen Type: BLOOD SPECIMENOrdering Facility: [facility] Address:[address] [place] [address] Performed By: #### SERIMM ####[facility] LABCLIA [id number] [place] [address] [place] IgG [Mass/Vol]1463 mg/aPPwieal260-7792CrkevkeklWooster Community HospitalCombeaumont hospital on above:Order Comment: Specimen Type: BLOOD SPECIMENOrdering Facility: [facility] Address:[address] [place], [place] [address]Performed By: #### SERIMM ####[facility] LABCLIA [id number] [place] [address] [place] AMERICAIgM [Mass/Vol]303 mg/dL Hqjz88-200ZzejhmcotWooster Community HospitalCombeaumont hospital on above:Order Comment: Specimen Type: BLOOD SPECIMENOrdering Facility: [facility] Address:[address] [place], [place] [address]Performed By: #### SERIMM ####[facility] LABCLIA [id number] [place] [address] [place] AMERICAIgA [Mass/volume] in Serum or Plasmaon 40-50-2832BgD [Mass/Vol]257 mg/fH65-168DsthbekpmUniversity Hospitals Geneva Medical CenterIgG [Mass/volume] in Serum or Plasmaon 75-88-0894AyI [Mass/Vol]1463 mg/xG078-7380BdxahduidUniversity Hospitals Geneva Medical CenterIgM [Mass/volume] in Serum or Plasmaon 01-09-0871OeO [Mass/Vol]303 mg/oCDuub68-091WaiduuljzUniversity Hospitals Geneva Medical CenterImmunoglobulin light chains.kappa.free [Mass/volume] in Serumon 74-35-3169Noltbjttwhwfoi light chains.kappa.free (S) [Mass/Vol]182.3 mg/LHigh3.3-19.4FMagruder HospitalComment on above:Rarely, increased serum free light chains levels may not be detected or accurately quantified due to prozone phenomenon or in high viscosity samples using this immunoturbidimetric assay. Correlation with other laboratory results and clinical findings is recommended. The Chapeno Free Light Chain was performed using the Binding Site Optilite immunoturbidimetric method. Result obtained with different assay methods or kits cannot be used interchangeably.Immunoglobulin light chains.kappa.free/Immunoglobulin light chains.lambda.free [Bowen 72-00-8332Gdfsdkgcabsslo light chains.kappa.free/Immunoglobulin light chains.lambda.free (S) [Mass ratio]3.45 High0.26-1.65[facility] Medical CenterImmunoglobulin light chains.lambda.free [Mass/volume] in Serum or Plasmaon 54-73-9139Yulzxkjmxeligq light chains.lambda.free [Mass/Vol]52.9 mg/LHigh5.7-26.3FMagruder HospitalComment on above:Rarely, increased serum free light chains levels may not be detected or accurately quantified due to prozone phenomenon or in high viscosity samples using this immunoturbidimetric assay. Correlation with other laboratory results and clinical findings is recommended. The Lambda Free Light Chain was performed using the Binding Site Optilite immunoturbidimetric method. Result obtained with differentassay methods or kits cannot be used interchangeably.KAPPA/COTA,FREE,SERon 01-67-4954Ybxphucnvjcdez light chains.kappa.free (S) [Mass/Vol]182.3 mg/LHigh3.3-19.4CSelect Medical Specialty Hospital [facility] Comment on above:Order Comment: Specimen Type: BLOOD SPECIMENOrdering Facility: [facility] Address:[address] [place], [place] [address]Result Comment: Rarely, increased serum free light chains levels may not be detected or accurately quantified due to prozone phenomenon or in high viscosity samples using this immunoturbidimetric assay. Correlation with other laboratory results and clinical findings is recommended.The Chapeno Free Light Chain was performed using the Binding Site Optilite immunoturbidimetric method. Result obtained with different assay methods or kits cannot be used interchangeably.Performed By: #### KLFRS ####[facility] LABCLIA [id number] [facility] [id number] [place] [address] [place] OF [facility] - CINCINNATIImmunoglobulin light chains.kappa/Immunoglobulin light chains.lambda (S) [Mass ratio]3.45High 0.26-1.65Wooster Community HospitalComment on above:Order Comment: Specimen Type: BLOOD SPECIMENOrdering Facility: [facility] Address:[address] [place], [place] [address]Performed By: #### KLFRS ####[facility] LABCLIA [id number] [place] [address] [place] AMERICAImmunoglobulin light chains.lambda.free [Mass/Vol]52.9 mg/LHigh5.7-26.3CPeoples Hospital on above:Order Comment: Specimen Type: BLOOD SPECIMENOrdering Facility: [facility] Address:[address] [place], [place] [address]Result Comment: Rarely, increased serum free light chains [...] cannot be used interchangeably.Performed By: #### KLFRS ####[facility] LABCLIA [id number] [place] [address] [place] AMERICALDH SerPl-cCncon 32-91-2178LLT [Catalytic activity/Vol]140 U/SCnolrz167-722AntbfjxzySouthwest General Health Center on above:Order Comment: Specimen Type: BLOOD SPECIMENOrdering Facility: [facility] Address:[address] [place], [place] [address]Result Comment: Hemolysis present. The origin of the hemolysis, in vitro versus an in vivo hemolytic process, cannot be distinguished via this assay alone. In vitro hemolysis may lead to non-physiological (spurious) elevation in lactate dehydrogenase (LDH) results. Theresult should be interpreted in context of the clinical setting and other test results. Suggest reorder as clinically indicated.Performed By: #### 2777-1, 60363-2, 3084-1, 2532-0 ####[facility]ITALMALA [facility] LABCLIA [id number] [place], [place] [address]Snvrisludz - Chemistry and Chemistry - challengeon 11-90-2948Yfqfaht [Mass/Vol]3.7 g/dLLow3.9-4.9[facility] CenterALP [Catalytic activity/Vol]99 U/S77-786IvipolnpzUniversity Hospitals Geneva Medical CenterALT [Catalytic activity/Vol]13 U/X17-84XfydrwkdeUniversity Hospitals Geneva Medical CenterAST [Catalytic activity/Vol]19 U/E38-97TswlvitrkUniversity Hospitals Geneva Medical CenterBilirubin [Mass/Vol]0.3 mg/dL0.2-1.3FMagruder HospitalCalcium [Mass/Vol]9.5 mg/dL 8.5-10.2FMagruder HospitalChloride [Moles/Vol]101 mmol/L98-107 [facility] CenterCO2 [Moles/Vol]25 mmol/B69-71SgwkbofulUniversity Hospitals Geneva Medical CenterCreatinine [Mass/Vol]1.15 mg/dL0.73-1.22[facility] CenterGlucose [Mass/Vol]279 mg/vFKwjo44-74ZfzqqphekUniversity Hospitals Geneva Medical CenterComment on above:The [place] Diabetes Association (ADA) provides guidance for cutoff [...] diabetes.Reference: Standardsof Medical Care in Diabetes 2016, [place] Diabetes Association. Diabetes Care. 2016.39(Suppl 1).LDH [Catalytic activity/Vol]140 U/N559-445TafhsofqwUniversity Hospitals Geneva Medical CenterComment on above:Hemolysis present. The origin of the hemolysis, in vitro versus an in vivo hemolytic process, cannot be distinguished via this assay alone. In vitro hemolysis may lead to non-physiological (spurious)elevation in lactate dehydrogenase (LDH) results. The result should be interpreted in context of the clinical setting and other test results. Suggest reorder as clinically indicated.Potassium [Moles/Vol]4.2 mmol/L3.7-5.1FMagruder HospitalProtein [Mass/Vol]0.61 g/dLHigh <=0.00Avita Health Systemodium [Moles/Vol]134 mmol/OImq118-039 [facility] CenterUrate [Mass/Vol]4.6 mg/dL4.0-8.1FMagruder HospitalUrea nitrogen [Mass/Vol]15 mg/dL9-24[facility] Medical CenterLaboratory - Hematology and Cell countson 09-35-9670Zyufukwfjhm (Bld) [#/Vol]0.11 10*3/uL<0.46[facility] CenterImmature granulocytes/100 WBC (Bld)0.2 %[facility] Medical CenterLeukocytes [#/volume] corrected for nucleated erythrocytes in Blood by Automated counon 76-69-8362YSD corrected for nucl RBC Auto (Bld) [#/Vol]5.66 k/uL3.70-11.00 [facility] Medical CenterLymphocytes Auto (Bld) [#/Vol]on 08-19-2024 Lymphocytes (Bld) [#/Vol]1.56 10*3/uL1.00-4.00[facility] Lymphocytes/100 WBC Auto (Bld)on 42-42-2367Nxdplxwuzlf/100 WBC (Bld)27.6 % [facility] HospitalH Auto (RBC) [Entitic mass]on 05-03-4776ZOW (RBC) [Entitic mass]30.6 pg26.0-34.0[facility] Medical CenterMCHC Auto (RBC) [Mass/Vol]on 08-89-4884NZSH (RBC) [Mass/Vol]33.5 g/dL30.5-36.0[facility] CenterMCV Auto (RBC) [Entitic vol]on 57-98-0897ZXJ (RBC) [Entitic vol]91.4 fL80.0-100.0[facility] CenterMonocytes Auto (Bld) [#/Vol]on 26-44-9819Agsglywjc (Bld) [#/Vol]0.64 10*3/uL<0.87[facility] CenterMonocytes/100 WBC Auto (Bld)on 12-26-9424Htqdxkypn/100 WBC (Bld)11.3 %[facility] Medical CenterNeutrophils Auto (Bld) [#/Vol]on 13-96-9741Lgckqwbxdfs (Bld) [#/Vol]3.32 10*3/uL1.45-7.50[facility] CenterNeutrophils/100 WBC Auto (Bld)on 89-98-9504Ghjawdfiidw/100 WBC (Bld)58.6 %[facility] CenterNo Panel Informationon 08-19-2024 Urine Albumin/Creatinine Xrsnn305 mg/gHigh<30[facility] Comment on above:Adult Male and Female Nephrotic Criteria:<30 mg/g is considered normal to mildly aoejfiozr54-447fn/g is considered moderately increased>300 mg/g is considered severely increasedKDIGO. (2013). KDIGO 2012 Clinical Practice Guideline for the Evaluation and Management of Chronic Kidney Disease. Official Journal of the International Society of Nephrology, 3(1), 1-150.Urine Microalbumin mg/dl191.5 mg/LFMagruder HospitalUrine Random Kcaybhnnml277.6 mg/dL20.0-300.0[facility] CenterEstimated GFR (CKD-EPI)63 mL/min/1.73m???>=60[facility] CenterComment on above:Estimated Glomerular Filtration Rate (eGFR) is [...] accurately reflect actual GFR.Immature Granulocyte # (Auto)<0.03 k/uL<0.10[facility] Immunofixation InterpretationUniversity Hospitals Geneva Medical CenterIonized Calcium (pH Adjusted)1.24 mmol/L1.08-1.30[facility] CenterLeuk/Lymph Sign Pathologist (Misc)Reviewed by Kira Reyes MDUniversity Hospitals Geneva Medical CenterMiscellaneous Test 6Gamma Fraction 1FMagruder Hospital Miscellaneous Test CommentReviewed by Flavio Garcia MD, Ph.D ([id number])[facility] Medical CenterPhosphorus Level3.0 mg/dL2.7-4.8[facility] CenterProtein Electrophoresis InterpretUniversity Hospitals Geneva Medical Center Protein Electrophoresis NoteAn M protein is identified on protein electrophoresis.AbnormalNo definitive M protein is identified on protein electrophoresis.Avita Health Systemerum ImmunofixationM protein is present.AbnormalNo M protein is identified.[facility] Nucleated RBC Auto (Bld) [#/Vol]on 46-92-1771Uygtycase RBC (Bld) [#/Vol]10*3/uL <0.01[facility] CenterNucleated erythrocytes [Presence] in Blood by Automated counton 82-25-2607Yfagidojk RBC Auto Ql (Bld)0.0 /100{WBC} [facility] Medical CenterPROTEIN ELECTROPHORESIS SERUM (P)on 08-19-2024 Albumin [Mass/Vol]3.49 g/dLNormal3.43-5.41[facility] on above:Order Comment: Specimen Type: BLOOD SPECIMENOrdering Facility: [facility] Address:[address] [place], [place] [address]Performed By: #### [id number] ####[facility] LABIA [id number] [address] STATES OF AMERICAAlpha 1 globulin Elph [Mass/Vol]0.27 g/dLNormal0.18-0.43[facility] on above: Order Comment: Specimen Type: BLOOD SPECIMENOrdering Facility: [facility] Address:[address] [place], [place] [address]Performed By: #### [id number] ####[facility] LABCLIA [id number] [address] STATES OF AMERICAAlpha 2 globulin Elph [Mass/Vol]0.82 g/dLNormal0.42-0.98[facility] on above: Order Comment: Specimen Type: BLOOD SPECIMENOrdering Facility: [facility] Address:[address] [place], [place] [address]Performed By: #### [id number] ####[facility] LABCLIA [id number] [place] [address] [place] AMERICABeta globulin Elph [Mass/Vol]0.82 g/dLNormal0.61-1.17[facility] on above: Order Comment: Specimen Type: BLOOD SPECIMENOrdering Facility: [facility] Address:[address] [place], [place] [address]Performed By: #### [id number] ####[facility] LABCLIA [id number] [place] [address] [place] AMERICAGamma globulin Elph [Mass/Vol]1.40 g/dLNormal0.53-1.51[facility] on above: Order Comment: Specimen Type: BLOOD SPECIMENOrdering Facility: [facility] Address:[address] [place], [place] [address]Performed By: #### [id number] ####[facility] LABCLIA [id number] [address] STATES AMERICAINTERPRETATION COMMENT FOR PROTEIN ELECTROPHORESISSee separate immunofixation report for characterization of monoclonal gammopathy.NormalWooster Community Hospital Comment on above:Order Comment: Specimen Type: BLOOD SPECIMENOrdering Facility: [facility] Address:[address] [place] [address] Performed By: #### [id number] ####[facility] LABCLIA [id number] [place] [address] [place] M-PROTEIN LOCATIONGamma Fraction 1NormalSouthwest General Health Center on above:Order Comment: Specimen Type: BLOOD SPECIMENOrdering Facility: [facility] Address:[address] [place], [place] [address]Performed By: #### [id number] ####[facility] LABCLIA [id number] [place] [address] [place] AMERICAProtein Fractions [Interp]An M protein is identified on protein electrophoresis.AbnormalNo definitive M protein is identified on protein electrophoresis.[facility] on above:Order Comment: Specimen Type: BLOOD SPECIMENOrdering Facility: [facility] Address:[address] [place], [place] [address]Performed By: #### [id number] ####[facility] LABCLIA [id number] [place] [id number] [place] Protein.monoclonal Elph [Mass/Vol]0.61 g/dLHigh<=0.00[facility] Comment on above:Order Comment: Specimen Type: BLOOD SPECIMENOrdering Facility: [facility] HOSPITAL Address:[address] [place] [address] Performed By: #### [id number] ####[facility] LABCLIA [id number] [address] [place] SPE STAFF REVIEWReviewed by Flavio Garcia MD, Ph.D ([id number])NormalWooster Community HospitalComment on above:Order Comment: Specimen Type: BLOOD SPECIMENOrdering Facility: [facility] Address:[address] [place], [place] [address]Performed By: #### [id number] ####[facility] LABIA [id number] [place] [address] [place] OF AMERICAPhosphate SerPl-mCncon 10-80-0415Bijfasbil [Mass/Vol]3.0 mg/dLNormal 2.7-4.8CSelect Medical Specialty Hospital - CantonComment on above:Order Comment: Specimen Type: BLOOD SPECIMENOrdering Facility: [facility] Address:[address] [place], [place] [address]Performed By: #### 2777-1, 74758-7, 3084-1, 2532-0 ####[facility] LABCLIA [id number] [place], [place] [address]Lovzrhyz mean volume Auto (Bld) [Entitic vol]on 39-06-4882Ivmabyzo mean volume (Bld) [Entitic vol]9.6 fL9.0-12.7FMagruder HospitalPlatelets Auto (Bld) [#/Vol]on 41-16-3629Dmfvbgwah (Bld) [#/Vol]201 10*3/oV072-978WdarkyvctUniversity Hospitals Geneva Medical CenterProt SerPl-mCncon 99-97-3176Mxbhccb [Mass/Vol]6.8 g/dLNormal6.3-8.0[facility] Comment on above:Order Comment: Specimen Type: BLOOD SPECIMENOrdering Facility: [facility] Address:[address] [place] [address] Performed By: #### 2885-2, 1951-03 ####[facility] LABCLIA [id number] [place] [address] [place] Protein [Mass/volume] in Serum or Plasmaon 92-01-0801Rorumer [Mass/Vol]6.8 g/dL 6.3-8.0[facility] Geneva Medical CenterRBC Auto (Bld) [#/Vol]on 64-07-2151DYX (Bld) [#/Vol]4.31 10*6/uL4.20-6.00Avita Health Systemerum ionized calcium measurement using ion specific electrode (mass/volume)on 08-19-2024 Calcium.ionized ISE [Mass/Vol]1.27 mmol/L1.08-1.30Av[facility] Health Systemerum or plasma alpha 1 globulin measurement by electrophoresis (mass/volume)on 17-75-3493Izlhy 1 globulin Elph [Mass/Vol]0.27 g/dL0.18-0.43 [facility] Systemerum or plasma alpha 2 globulin measurement by electrophoresis (mass/volume)on 28-74-4272Uqxhz 2 globulin Elph [Mass/Vol]0.82 g/dL0.42-0.98Av[facility] Health Systemerum or plasma anion gap determinationon 13-94-3234Sbkmh gap [Moles/Vol]8 mmol/L8-15[facility] Health Systemerum or plasma beta globulin measurement by electrophoresis (mass/volume)on 86-11-5038Vaic globulin Elph [Mass/Vol]0.82 g/dL0.61-1.17 [facility] Systemerum or plasma pgkp-7-fdczsixqluurv measurement (mass/volume)on 43-25-9826Tise-2-Microglobulin [Mass/Vol]4.5 ug/mL High<3.1FMagruder HospitalComment on above:Beta-2 Microglobulin test is performed using the [employer] immunoturbidimetric method. Resul ts obtained with different methods or kits cannot be used interchangeably.Serum or plasma gamma globulin measurement by electrophoresis (mass/volume)on 07-19-6593Fydyq globulin Elph [Mass/Vol]1.40 g/dL0.53-1.51[facility] Geneva Medical CenterUrate SerPl-mCncon 44-48-5826Gaano [Mass/Vol]4.6 mg/dLNormal 4.0-8.1CSelect Medical Specialty Hospital - CantonComment on above:Order Comment: Specimen Type: BLOOD SPECIMENOrdering Facility: [facility] Address:[address] [place], [place] [address]Edowpuwqs By: #### 2777-1, 18908-1, 3084-1, 2532-0 ####[facility] LABCLIA [id number] [place], [place] [address]XAFIjq 59-32-3105KBYNKukmpuEvgzbfoam Clinic ClevelandCNPN on 88-82-7374TCLUNxlyzzAptiynfvw Clinic ClevelandCNPNon 64-13-1868SMTANouiqz Wooster Community HospitalCNPNon 17-14-2428CSUVDatdebVibfzmzqm [facility] [place] BRIEF OP NOTon 86-18-3095UAPMN OP NOTNormalCSelect Medical Specialty Hospital - CantonCNDSon 79-40-0596PXYPMdblmlHxwncuftx Clinic ClevelandNURSING PROGon 17-55-7435MKUJRLN PROGNormalWooster Community HospitalPT EDon 74-62-7855TP EDNormGrant HospitalPathology biopsy report Augie (Tiss)on 98-10-4964GE DISCLAIMER [facility] CenterCombeaumont hospital on above:Order Comment: Specimen Type: TISSUE SPECIMENOrdering Facility: [facility] Address: [address] [place], [place] [address]Lwluqq Comment: Laboratory Developed Test (LDT) Disclaimer:Performance characteristics of immunohistochemical, immunofluorescent, and chromogenic in-situ hybridization tests have been determined by the performing laboratory within [facility]'s Jagdish Owusu Pathology and Laboratory Medicine Department ([facility], [facility], [facility], [facility], [facility], or [facility]) in a manner consistent with CLIA requirements. One or more of these tests may not have been cleared or approved by the FDA. [facility] is regulated under CLIA as qualified to perform high-complexity testing. These tests are used for clinical purposes. These should not be regarded as investigational or for research. Positive and negative controls stain appropriately.Performed By: #### 17862-5 ####[facility] LABIA [id number] [place] [id number] [place] STATES OF AMERICACASE REPORTNoMorrow County HospitalComment on above:Order Comment: Specimen Type: TISSUE SPECIMENOrdering Facility: [facility] Address: [address] [place], [place] [address]Result Comment: Surgical Pathology Report Case: [id number] Provider: Martha Gandara MD, MD Collected: 07/21/2024 11:22 AMOrdering Location: [place] [address] Received: 07/21/2024 06:18 PMPathologist: Marielos Melvin MDSpecimen: Parotid Gland, Left, Biopsy, h/o multiple myelomaPerformed By: #### 03904-9 ####[facility] [id number] [place] [address] [facility] CENTERCLINICAL HISTORYhistory of multiple myeloma with large left parotid massNoMorrow County Hospital Comment on above:Order Comment: Specimen Type: TISSUE SPECIMENOrdering Facility: [facility] Address: [address] [place] [address] Performed By: #### 25202-1 ####[facility]ENTERIA [id number] [place] [address] [facility] DIAGNOSIS COMMENTNo high grade carcinoma features are identified on the biopsy, although grading is best evaluated on the resection specimen. This case was reviewed in intradepartmental consultation with Dr. Lionel Galaviz, who agrees with the diagnosis.NormalSouthwest General Health Center on above:Order Comment: Specimen Type: TISSUE SPECIMENOrdering Facility: [facility] Address: [address] [place], [place] [address]Performed By: #### 57888-5 ####[facility] LABCLIA [id number] [address] [address] [facility] CENTERFINAL DIAGNOSISNormal [facility] on above:Order Comment: Specimen Type: TISSUE SPECIMENOrdering Facility: [facility] Address: [address] [place], [place] [address]Result Comment: A. Left parotid, mass, needle biopsy:- Mucoepidermoid carcinoma, see comment. at 1142 EDTPerformed By: #### 43202-7 ####[facility] LABCLIA [id number] [address] [address] [facility] LABNoMorrow County Hospital Comment on above:Order Comment: Specimen Type: TISSUE SPECIMENOrdering Facility: [facility] Address: [address] [place], [place] [address]Result Comment: Diagnostic interpretation performed at: [facility], [address] [place] [address], [address] [address] CLIA# [id number] Director: COLTON Shresthaerformed By: #### 42298-8 ####[facility] LABCLIA [id number] [address] [address] [facility] DESCRIPTIONACMC Healthcare System on above:Order Comment: Specimen Type: TISSUE SPECIMENOrdering Facility: [facility] Address: [address] [place], [place] [address]Result Comment: A. Parotid Gland, Left, BiopsyReceived in formalin are multiple segments of cylindrical tissue aggregating to 2.8 x 0.2 x 0.1 cm, cardoso-red and of a soft and friable consistency. Totally submitted in one cassette.Gross examination performed at [facility], [address] [place], [place] [address]AMS July 21, 2024 7:23 PMPerformed By: #### 68611-9 ####[facility] LABCLIA [id number] [address] [address] [place] OF AMERICAUS BIOPSY SALIVARY GLANDon 06-02-7548QJ BIOPSY SALIVARY GLANDNormalCTrinity Health System [facility] panel Auto (Bld)on 62-17-1107Rhvdwqillmp distribution width (RBC) [Ratio]12.5 %Normal 11.5-15.0[facility] on above:Order Comment: Specimen Type: BLOOD SPECIMENOrdering Facility: [facility] Address:[address] [place], [place] [address]Performed By: #### 67831-5 ####[facility] LABCLIA [id number] [place] [address] Hematocrit (Bld) [Volume fraction]41.0 %Kyejmx64.0-51.0[facility] on above:Order Comment: Specimen Type: BLOOD SPECIMENOrdering Facility: [facility] Address:[address] [place], [place] [address]Performed By: #### 12515-5 ####[facility] LABCLIA [id number] [place], [place] [address]Qxlyqdlblx (Bld) [Mass/Vol]13.3 g/nDBxjkwj15.0-17.0[facility] on above:Order Comment: Specimen Type: BLOOD SPECIMENOrdering Facility: [facility] Address:[address] [place], [place] [address]Performed By: #### 21992-5 ####[facility] LABCLIA [id number] [place], [place] [address]MYO (RBC) [Entitic mass]30.2 jbVnwloc54.0-34.0[facility] on above:Order Comment: Specimen Type: BLOOD SPECIMENOrdering Facility: [facility] Address:[address] [place], [place] [address]Performed By: #### 27825-3 ####[facility] LABCLIA [id number] [place], [place] [address]HHLP (RBC) [Mass/Vol]32.4 g/sKWuyayf93.5-36.0[facility] on above: Order Comment: Specimen Type: BLOOD SPECIMENOrdering Facility: [facility] Address:[address] [place], [place] [address]Performed By: #### 40951- 2 ####[facility] LABCLIA [id number] [place], [place] [address]RGD (RBC) [Entitic vol]93.0 lENylglz44.0-100.0[facility] on above:Order Comment: Specimen Type: BLOOD SPECIMENOrdering Facility: [facility] Address:[address] [place], [place] [address]Performed By: #### 47310-0 ####[facility] LABIA [id number] [place], [place] [address]Ulahprgci RBC (Bld) [#/Vol]10*3/uLNormal<0.01[facility] on above:Order Comment: Specimen Type: BLOOD SPECIMENOrdering Facility: [facility] Address:[address] [place], [place] [address]Performed By: #### 15458- 2 ####[facility] LABIA [id number] [place], [place] [address]Nkqqurdi mean volume (Bld) [Entitic vol]9.6 fLNormal 9.0-12.7CPeoples Hospital on above:Order Comment: Specimen Type: BLOOD SPECIMENOrdering Facility: [facility] Address:[address] [place], [place] [address]Performed By: #### 04902-7 ####[facility]ITALIA [id number] [place], [place] [address]Xbvogcliy (Bld) [#/Vol]210 10*3/pLPxrjxy219-842PgghawbwySouthwest General Health Center on above: Order Comment: Specimen Type: BLOOD SPECIMENOrdering Facility: [facility] Address:[address] [place], [place] [address]Performed By: #### 42813- 2 ####[facility] LABIA [id number] [place], [place] [address]TKZ (Bld) [#/Vol]4.41 10*6/uLNormal4.20-6.00[facility] on above:Order Comment: Specimen Type: BLOOD SPECIMENOrdering Facility: [facility] Address:[address] [place], [place] [address]Performed By: #### 07574-5 ####[facility] [id number] [place], [place] [address]BIN (Bld) [#/Vol]6.45 10*3/uLNormal3.70-11.00[facility] on above: Order Comment: Specimen Type: BLOOD SPECIMENOrdering Facility: [facility] Address:[address] [place], [place] [address]Performed By: #### 51530- 2 ####[facility] [id number] [place], [place] [address]Jvmkgowjqom distribution width Auto (RBC) [Ratio]on 02-17-5166Kwzurqaqnrr distribution width (RBC) [Ratio]12.5 %11.5-15.0[facility] Medical CenterHematocrit Auto (Bld) [Volume fraction]on 07-16-2024 Hematocrit (Bld) [Volume fraction]41.0 %39.0-51.0[facility] Medical CenterHemoglobin [Mass/volume] in Bloodon 71-94-5824Pfrsxluafl (Bld) [Mass/Vol] 13.3 g/dL13.0-17.0[facility] Medical CenterINR in Platelet poor plasma by Coagulation assayon 09-03-2786KWQ Coag (PPP) [Relative time]2.7 {INR}High 0.9-1.3FMagruder HospitalComment on above:Vitamin K Antagonist (VKA) Therapeutic Range: INR 2 to 3 (Target INR of 2.5)Note: For patients treat ed with VKA drugs, such as warfarin, the [place] [employer] 2012 Guideline recommends [...] al. Chest 2012, 141:7S-47SNishimura RA, et al. [facility] 2017, 70: 252-289Leukocytes [#/volume] corrected for nucleated erythrocytes in Blood by Automated counon 73-87-0957EIK corrected for nucl RBC Auto (Bld) [#/Vol]6.45 k/uL3.70-11.00[facility] Auto (RBC) [Entitic mass]on 33-87-2446FVZ (RBC) [Entitic mass]30.2 pg26.0-34.0[facility] HospitalHC Auto (RBC) [Mass/Vol]on 60-07-3121EMLG (RBC) [Mass/Vol]32.4 g/dL 30.5-36.0Dunlap Memorial HospitalV Auto (RBC) [Entitic vol]on 65-86-3511NLW (RBC) [Entitic vol]93.0 fL80.0-100.0[facility] Medical CenterNucleated RBC Auto (Bld) [#/Vol]on 02-10-6921Ksfyrkfjp RBC (Bld) [#/Vol] 10*3/uL<0.01[facility] CenterPT panel Coag (PPP)on 75-51-6168IES Coag (PPP) [Relative time]2.7 {INR}High0.9-1.3CPeoples Hospital on above:Order Comment: Specimen Type: BLOOD SPECIMENOrdering Facility: [facility] Address:[address] [place], [place] [address]Result Comment: Vitamin K Antagonist (VKA) Therapeutic Range: INR 2 to 3 (Target INR of 2.5)Note: For patients treated with VKA drugs, such as warfarin, the [place] [employer] 2012 Guideline recommends [...] al. Chest 2012, 141:7S-47SNishimura RA, et al. [facility] 2017, 70: 252-289Performed By: #### 03925-7 ####[facility] LABCLIA [id number] [place] [address] [place] AMERICAPT Coag (PPP) [Time] 27.4 sHigh9.7-13.0[facility] on above:Order Comment: Specimen Type: BLOOD SPECIMENOrdering Facility: [facility] Address:[address] [place], [place] [address]Performed By: #### 47949-1 ####[facility] LABIA [id number] [place] [address] [place] AMERICAPlatelet mean volume Auto (Bld) [Entitic vol]on 29-74-5134Srhsexqe mean volume (Bld) [Entitic vol]9.6 fL9.0-12.7 [facility] Medical CenterPlatelets Auto (Bld) [#/Vol]on 07-16-2024 Platelets (Bld) [#/Vol]210 10*3/rF419-187FuykhgavkUniversity Hospitals Geneva Medical Center Prothrombin time (PT)on 02-37-1279UD Coag (PPP) [Time]27.4 sHigh9.7-13.0 [facility] Medical CenterRBC Auto (Bld) [#/Vol]on 24-63-9983VLC (Bld) [#/Vol]4.41 10*6/uL4.20-6.00[facility] CenterNURSING PROGon 15-91-0889CMTEICH PROGNormalZanesville City HospitalvelandCNOVon 12-16-5537RVBK NormalWooster Community HospitalCNPNon 33-62-4925DOSYDxjcrwLbipmaaul Clinic ClevelandCT NECK SOFT TISSUE W IVCONon 87-37-8384AX NECK SOFT TISSUE W IVCON NormalWooster Community HospitalCT Neck W contrast Sachi 66-18-3651FUBSCXCIGD: Slight interval increase in size of left [...] any questions regarding this interpretation, please call [phone]. If you are unable to reach us at the number above, please feel free to contact [facility] eRadiology at [phone].DIVISION OF RADIOLOGY* * *Final Report* * * DATE OF EXAM: May 28 2024 2:29PM [facility] 0013 - CT NECK SOFT TISSUE W [...] limits. The soft tissue planes of the mold closer helper spaces are maintained. There is no evidence [...] apex. Other: Not applicable. DIVISION OF RADIOLOGYProvider, [facility] [place] - 05/28/2024 * * *Final Report* * * DATE OF EXAM: May 28 2024 2:29PM [facility] 0013 - CT NECK SOFT TISSUE W [...] limits. The soft tissue planes of the mold closer helper spaces are maintained. There is no evidence [...] any questions regarding this interpretation, please call [phone]. If you are unable to reach us at the number above, please feel free to contact [facility] at [phone]. Larios ClinicRadiology Study observation (narrative)[facility] CantonCT Neck W contrast IVOrdered By: Ccf Provider on 13-65-4089Owlrllmtp ClinicCNOVSPon 01-30-3831WRTTEVGuwiuiHxpjgfdkc Clinic Clepromedica toledo hospitalCNPNon 54-33-8285VPELYmgtme [facility] HospitalAlbumin [Mass/volume] in Serum or Plasmaon 05-10-2024 Albumin [Mass/Vol]Albumin [Mass/volume] in Serum or Plasma3.43-5.41[facility] Medical CenterB2 Microglob SerPl-mCncon 77-08-8407Ucmh-2-Microglobulin [Mass/Vol]4.7 ug/mLHigh<3.1ClevelMercy Health Willard Hospital on above:Order Comment: Specimen Type: BLOOD SPECIMENOrdering Facility: [facility] Address:[address] [place], [place] [address]Result Comment: Beta-2 Microglobulin test is performed using the [employer] immunoturbidimetric method. Results obtained with different methods or kits cannot be used interchangeably.Performed By: #### 1952-1, 2885-2 ####[facility] LABCLIA [id number] [facility] B56UBBNVPAVTMICHELLE VIL[place] [id number] [place] OF AMERICABasophils Auto (Bld) [#/Vol]on 30-04-2124Tqrzfweoa (Bld) [#/Vol]Automated basophil count<0.11[facility] Basophils/100 WBC Auto (Bld)on 97-30-9213Oxduahsje/100 WBC (Bld)Automated basophil %[facility] Medical CenterBlood manual differential comment interpretation narrativeon 69-81-4961Sccful differential comment Augie (Bld) [Interp]Blood manual differential comment interpretation narrativeUniversity Hospitals Geneva Medical CenterCBC W Auto Differential panel (Bld)on 79-96-1701Jfxzwzilj (Bld) [#/Vol]0.03 10*3/uLNormal<0.11CPeoples Hospital on above: Order Comment: Specimen Type: BLOOD SPECIMENOrdering Facility: [facility] Address:[address] [place], [place] [address]Performed By: #### 67641- 8 ####AIYANANMMALA [facility] LABCLIA [id number] [place], [place] [address]Yxmapghxp/100 WBC (Bld)0.4 %NormalSouthwest General Health Center on above:Order Comment: Specimen Type: BLOOD SPECIMENOrdering Facility: [facility] Address:[address] [place], [place] [address]Performed By: #### 91947-8 ####[facility] LABCLIA [id number] [place], [place] [address]Neiakfqmkdim cell count method Nom (Bld)AutoNormalCPeoples Hospital on above:Order Comment: Specimen Type: BLOOD SPECIMENOrdering Facility: [facility] Address:[address] [place], [place] [address]Performed By: #### 54162-8 ####[facility] LABCLIA [id number] [place], [place] [address]Gcgvzigkzld (Bld) [#/Vol]0.16 10*3/uLNormal<0.46[facility] on above:Order Comment: Specimen Type: BLOOD SPECIMENOrdering Facility: [facility] Address:[address] [place], [place] [address]Performed By: #### 29943-2 ####[facility] LABCLIA [id number] [place], [place] [address]Epjzesoupue/100 WBC (Bld)2.0 %NormalSouthwest General Health Center on above:Order Comment: Specimen Type: BLOOD SPECIMENOrdering Facility: [facility] Address:[address] [place], [place] [address]Performed By: #### 01689-2 ####[facility] LABCLIA [id number] [place], [place] [address]Pltqknflank distribution width (RBC) [Ratio]13.5 %Normal 11.5-15.0[facility] on above:Order Comment: Specimen Type: BLOOD SPECIMENOrdering Facility: [facility] Address:[address] [place], [place] [address]Performed By: #### 51360-5 ####[facility] LABIA [id number] [place] [address] Hematocrit (Bld) [Volume fraction]41.9 %Kgrgbr89.0-51.0[facility] on above:Order Comment: Specimen Type: BLOOD SPECIMENOrdering Facility: [facility] Address:[address] [place], [place] [address]Performed By: #### 59744-5 ####[facility] LABIA [id number] [place], [place] [address]Xwjjxqnzgn (Bld) [Mass/Vol]13.7 g/tOSorsfa26.0-17.0[facility] on above:Order Comment: Specimen Type: BLOOD SPECIMENOrdering Facility: [facility] Address:[address] [place], [place] [address]Performed By: #### 54965-2 ####[facility] LABIA [id number] [place], [place] [address]Jsrkuelh granulocytes (Bld) [#/Vol]0.03 10*3/uLNormal <0.10[facility] on above:Order Comment: Specimen Type: BLOOD SPECIMENOrdering Facility: [facility] Address:[address] [place], [place] [address]Performed By: #### 50999-2 ####[facility] LABCLIA [id number] [place], [place] [address]Sfedincl granulocytes/100 WBC (Bld)0.4 %NormalSouthwest General Health Center on above: Order Comment: Specimen Type: BLOOD SPECIMENOrdering Facility: [facility] Address:[address] [place], [place] [address]Performed By: #### 12327- 8 ####[facility] LABCLIA [id number] [place], [place] [address]Gfwshdgjlsc (Bld) [#/Vol]1.73 10*3/uLNormal1.00-4.00 [facility] on above:Order Comment: Specimen Type: BLOOD SPECIMENOrdering Facility: [facility] Address:[address] [place], [place] [address]Performed By: #### 74714-2 ####[facility] LABCLIA [id number] [place], [place] [address]Pfbadklhmco/100 WBC (Bld)22.1 %NormalSouthwest General Health Center on above:Order Comment: Specimen Type: BLOOD SPECIMENOrdering Facility: [facility] Address:[address] [place], [place] [address]Performed By: #### 31224-5 ####[facility] LABCLIA [id number] [place], [place] [address]SBB (RBC) [Entitic mass]30.7 phBwoylz68.0-34.0[facility] on above:Order Comment: Specimen Type: BLOOD SPECIMENOrdering Facility: [facility] Address:[address] [place], [place] [address]Performed By: #### 73011-7 ####[facility] LABCLIA [id number] [place], [place] [address]SKYT (RBC) [Mass/Vol]32.7 g/rSJskmmn16.5-36.0[facility] on above: Order Comment: Specimen Type: BLOOD SPECIMENOrdering Facility: [facility] Address:[address] [place], [place] [address]Performed By: #### 87256- 8 ####[facility] LABCLIA [id number] [place], [place] [address]UUQ (RBC) [Entitic vol]93.9 gECwvnbm95.0-100.0[facility] on above:Order Comment: Specimen Type: BLOOD SPECIMENOrdering Facility: [facility] Address:[address] [place], [place] [address]Performed By: #### 39076-5 ####[facility] LABIA [id number] [place], [place] [address]Hmmppesnp (Bld) [#/Vol]0.79 10*3/uLNormal<0.87[facility] on above:Order Comment: Specimen Type: BLOOD SPECIMENOrdering Facility: [facility] Address:[address] [place], [place] [address]Performed By: #### 04203- 8 ####[facility] LABCLIA [id number] [place], [place] [address]Oyugmgpbu/100 WBC (Bld)10.1 %NormalSouthwest General Health Center on above:Order Comment: Specimen Type: BLOOD SPECIMENOrdering Facility: [facility] Address:[address] [place], [place] [address]Performed By: #### 26259-4 ####[facility] LABIA [id number] [place], [place] [address]Wgfnyvjueyw (Bld) [#/Vol]5.10 10*3/uLNormal1.45-7.50[facility] on above:Order Comment: Specimen Type: BLOOD SPECIMENOrdering Facility: [facility] Address:[address] [place], [place] [address]Performed By: #### [id number] ####[facility] LABCLIA [id number] [place], [place] [address]Gjmbxprxtmb/100 WBC (Bld)65.0 %NormalSouthwest General Health Center on above:Order Comment: Specimen Type: BLOOD SPECIMENOrdering Facility: [facility] Address:[address] [place], [place] [address]Performed By: #### [id number] ####[facility] LABIA [id number] [place], [place] [address]Lyjdanqun RBC (Bld) [#/Vol] 10*3/uLNormal<0.01[facility] on above:Order Comment: Specimen Type: BLOOD SPECIMENOrdering Facility: [facility] Address:[address] [place], [place] [address]Performed By: #### 64851-3 ####[facility] LABCLIA [id number] [place], [place] [address]Sfjsvwufj RBC/100 WBC (Bld) [Ratio]0.0 /100 WBCNormal [facility] on above:Order Comment: Specimen Type: BLOOD SPECIMENOrdering Facility: [facility] Address:[address] [place], [place] [address]Performed By: #### 24098-3 ####[facility] LABCLIA [id number] [place], [place] [address]Wglxkgfw mean volume (Bld) [Entitic vol]9.7 fLNormal9.0-12.7CPeoples Hospital on above:Order Comment: Specimen Type: BLOOD SPECIMENOrdering Facility: [facility] Address:[address] [place] [address] Performed By: #### 58734-2 ####[facility] LABCLIA [id number] [place], [place] [address]Fbtwixzkt (Bld) [#/Vol]232 10*3/jAAgbohw311-446NptxnkwllSouthwest General Health Center on above:Order Comment: Specimen Type: BLOOD SPECIMENOrdering Facility: [facility] Address:[address] [place], [place] [address]Performed By: #### 09979-5 ####[facility] LABCLIA [id number] [place], [place] [address]PJE (Bld) [#/Vol]4.46 10*6/uLNormal4.20-6.00[facility] on above:Order Comment: Specimen Type: BLOOD SPECIMENOrdering Facility: [facility] Address:[address] [place], [place] [address]Performed By: #### 90523-5 ####[facility] LABCLIA [id number] [place], [place] [address]OIF (Bld) [#/Vol]7.84 10*3/uLNormal3.70-11.00[facility] on above: Order Comment: Specimen Type: BLOOD SPECIMENOrdering Facility: [facility] Address:[address] [place], [place] [address]Performed By: #### 59107- 8 ####[facility] LABCLIA [id number] [place], [place] [address]Awlybne.ionized [Moles/Vol]on 05-68-6344Qfioppo.ionized (Bld) [Mass/Vol]1.26 mmol/LNormal1.08-1.30[facility] on above:Order Comment: Specimen Type: BLOOD SPECIMENOrdering Facility: [facility] Address:[address] [place], [place] [address]Performed By: #### 1995-0 ####[facility] LABIA [id number] [address] ST[address]ETCalcium.ionized adjusted to pH 7.4 (Bld) [Moles/Vol]1.22 mmol/LNormal1.08-1.30[facility] on above:Order Comment: Specimen Type: BLOOD SPECIMENOrdering Facility: [facility] Address:[address] [place] [address]Igpgobraz By: #### 1995-0 ####[facility]ENTERIA [id number] [place] [id number] [facility] Comprehensive metabolic 2000 panelon 45-50-0096Kasxxlr [Mass/Vol]3.9 g/dLNormal 3.9-4.9CPeoples Hospital on above:Order Comment: Specimen Type: BLOOD SPECIMENOrdering Facility: [facility] Address:[address] [place], [place] [address]Performed By: #### 3084-1, 21048-7, 2777-1, 2532-0 ####[facility] LABCLIA [id number] [place], [place] [address]AYL [Catalytic activity/Vol]96 U/JAdkrbk95-108GalxfxcxcSouthwest General Health Center on above:Order Comment: Specimen Type: BLOOD SPECIMENOrdering Facility: [facility] Address:[address] [place], [place] [address]Performed By: #### 3084-1, 05680-0, 7-1, 2532-0 ####[facility] LABCLIA [id number] [place], [place] [address]EYI [Catalytic activity/Vol]16 U/SYqsvdn77-72RdifeppcsSouthwest General Health Center on above:Order Comment: Specimen Type: BLOOD SPECIMENOrdering Facility: [facility] Address:[address] [place], [place] [address]Performed By: #### 3084-1, 89701-0, 2776-1, 2532-0 ####[facility] LABCLIA [id number] [place], [place] [address]Bhxmt gap [Moles/Vol]9 mmol/LNormal8-15[facility] on above:Order Comment: Specimen Type: BLOOD SPECIMENOrdering Facility: [facility] Address:[address] [place], [place] [address]Performed By: #### 3084-1, 56489-7, 7-1, 2532-0 ####[facility] LABIA [id number] [place], [place] [address]GLE [Catalytic activity/Vol]21 U/IHaspyh59-17YpniuejjaSouthwest General Health Center on above:Order Comment: Specimen Type: BLOOD SPECIMENOrdering Facility: [facility] Address:[address] [place], [place] [address]Performed By: #### 3084-1, 39434-0, 7-, 2532-0 ####[facility] LABCLIA [id number] [place], [place] [address]Guklfbvmq [Mass/Vol]0.3 mg/dL Normal0.2-1.3CPeoples Hospital on above:Order Comment: Specimen Type: BLOOD SPECIMENOrdering Facility: [facility] Address:[address] [place], [place] [address]Performed By: #### 3084-1, 30723-2, 2776-, 2532- 0 ####[facility] LABCLIA [id number] [place], [place] [address]Relxjxx [Mass/Vol]9.5 mg/dLNormal8.5-10.2CPeoples Hospital on above:Order Comment: Specimen Type: BLOOD SPECIMENOrdering Facility: [facility] Address:[address] [place], [place] [address]Performed By: #### 3084-1, 44920-2, 2776-, 2532-0 ####[facility] LABCLIA [id number] [place], [place] [address]Cykcajuj [Moles/Vol]102 mmol/QKrcjst47-391UzedwqsypSouthwest General Health Center on above: Order Comment: Specimen Type: BLOOD SPECIMENOrdering Facility: [facility] Address:[address] [place], [place] [address]Performed By: #### 3084- 1, 02031-2, 2776-, 2532-0 ####[facility] LABCLIA [id number] [place], [place] [address]JN0 [Moles/Vol]26 mmol/LNormal 22-30[facility] on above:Order Comment: Specimen Type: BLOOD SPECIMENOrdering Facility: [facility] Address:[address] [place], [place] [address]Performed By: #### 3084-1, 62906-1, 2776-1, 2532-0 ####[facility] LABCLIA [id number] [place], [place] [address]Qbllfazlox [Mass/Vol]1.34 mg/dLHigh0.73-1.22[facility] on above:Order Comment: Specimen Type: BLOOD SPECIMENOrdering Facility: [facility] Address:[address] [place], [place] [address]Performed By: #### 3084-1, 86946-5, 2777-1, 2532-0 ####[facility] LABCLIA [id number] [place], [place] [address]Pzrvcrbafj and Glomerular filtration rate.predicted panel (S/P/Bld)53 mL/min/1.73m???Low>=60[facility] on above: Order Comment: Specimen Type: BLOOD SPECIMENOrdering Facility: [facility] Address:[address] [place], [place] [address]Result Comment: Estimated Glomerular Filtration Rate (eGFR) is [...] accurately reflect actual GFR.Performed By: #### 3084-1, 87697-1, 277-1, 2532-0 ####[facility] LABCLIA [id number] [place], [place] [address]Tgbzfll [Mass/Vol]237 mg/rRMycu16-52 [facility] on above:Order Comment: Specimen Type: BLOOD SPECIMENOrdering Facility: [facility] Address:[address] [place] [address]Ituytf Comment: The [place] Diabetes Association (ADA) provides guidance for cutoff [...] Standards of Medical Care in Diabetes 2016, [place] [employer] Association. Diabetes Care. 2016.39(Suppl 1).Performed By: #### 3084-1, 81128-9, 2776-03, 2-0 ####[facility] LABCLIA [id number] [place], [place] [address]Jkolnpjka [Moles/Vol]4.2 mmol/L Normal3.7-5.1CPeoples Hospital on above:Order Comment: Specimen Type: BLOOD SPECIMENOrdering Facility: [facility] Address:[address] [place], [place] [address]Performed By: #### 3084-1, 60754-4, 2776-03, 2- 0 ####[facility] LABCLIA [id number] [place], [place] [address]Jsnilt [Moles/Vol]137 mmol/LFyawnp660-026BoiglwjzrSouthwest General Health Center on above:Order Comment: Specimen Type: BLOOD SPECIMENOrdering Facility: [facility] Address:[address] [place], [place] [address]Performed By: #### 3084-1, 11039-8, 2776-03, 2531-0 ####[facility] LABCLIA [id number] [place], [place] [address]Kygx nitrogen [Mass/Vol]17 mg/dLNormal9-24[facility] on above: Order Comment: Specimen Type: BLOOD SPECIMENOrdering Facility: [facility] Address:[address] [place], [place] [address]Performed By: #### 3084- 1, 42041-9, 2776-03, 2532-0 ####[facility] LABCLIA [id number] [place], [place] [address]Oebvzwkaxug/100 WBC Auto (Bld)on 52-15-6938Jdejhvzlflj/100 WBC (Bld)Automated eosinophil %[facility] CenterErythrocyte distribution width Auto (RBC) [Ratio]on 05-10-2024 Erythrocyte distribution width (RBC) [Ratio]Erythrocyte distribution width [Ratio] by Automated count11.5-15.0[facility] CenterHematocrit Auto (Bld) [Volume fraction]on 51-56-4797Jbccjbhbfx (Bld) [Volume fraction] Hematocrit [Volume Fraction] of Blood by Automated count39.0-51.0[facility] CenterHemoglobin [Mass/volume] in Bloodon 46-98-5080Itngiobvha (Bld) [Mass/Vol]Hemoglobin [Mass/volume] in Blood13.0-17.0[facility] CenterIMMUNOFIXATION SCREEN, SERUMon 42-93-6859BSJOJLIDIGMWMC (MPA) Atypical restricted bands are present in the IgG and kappa regions. Consistent with IgG kappa monoclonal gammopathy.NormalSouthwest General Health Center on above:Order Comment: Specimen Type: BLOOD SPECIMENOrdering Facility: [facility] Address:[address] [place], [place] [address]Performed By: #### IFESC ####[facility] LABCLIA [id number] [facility] [id number] [place] [address] [place] AMERICAMPA RESULTM protein is present. AbnormalNo M protein is identified.[facility] on above: Order Comment: Specimen Type: BLOOD SPECIMENOrdering Facility: [facility] Address:[address] [place], [place] [address]Performed By: #### IFESC ####[facility] LABIA [id number] [facility] [address] [place] [address] [place] OF AMERICASTAFF REVIEW (MPA)Reviewed by Lily Lindsay M.D., Ph.DNormalSouthwest General Health Center on above: Order Comment: Specimen Type: BLOOD SPECIMENOrdering Facility: [facility] Address:[address] [place], [place] [address]Performed By: #### IFESC ####[facility] LABCLIA [id number] [place] [address] [place] AMERICAIMMUNOGLOBULINS,IGG,IGA,IGMon 35-28-7130VtU [Mass/Vol]299 mg/wNWjrckl15-826JeifvhkmjSouthwest General Health Center on above:Order Comment: Specimen Type: BLOOD SPECIMENOrdering Facility: [facility] Address:[address] [place] [address] Performed By: #### SERIMM ####[facility] LABCLIA [id number] [place] [address] [place] IgG [Mass/Vol]1514 mg/fYFvnhtn176-9489WntvzulrySouthwest General Health Center on above:Order Comment: Specimen Type: BLOOD SPECIMENOrdering Facility: [facility] Address:[address] [place], [place] [address]Performed By: #### SERIMM ####[facility] LABCLIA [id number] [place] [address] [place] AMERICAIgM [Mass/Vol]321 mg/dL Bzfg08-723PddnjqyzdSouthwest General Health Center on above:Order Comment: Specimen Type: BLOOD SPECIMENOrdering Facility: [facility] Address:[address] [place], [place] [address]Performed By: #### SERIMM ####[facility] LABCLIA [id number] [place] [address] [place] AMERICAIgA [Mass/volume] in Serum or Plasmaon 47-56-7263LkT [Mass/Vol]IgA [Mass/volume] in Serum or Xspses25-869YmhztdvmdUniversity Hospitals Geneva Medical CenterIgG [Mass/volume] in Serum or Plasmaon 72-71-5962SqC [Mass/Vol]IgG [Mass/volume] in Serum or Wkqpvj880-4641HpgwgbmaiUniversity Hospitals Geneva Medical CenterIgM [Mass/volume] in Serum or Plasmaon 64-54-6436PbH [Mass/Vol]IgM [Mass/volume] in Serum or RlgbpmDxmf58-966MmojghcpcUniversity Hospitals Geneva Medical CenterImmunoglobulin light chains.kappa.free [Mass/volume] in Serumon 83-49-3910Egtgepwoqswvyx light chains.kappa.free (S) [Mass/Vol]Immunoglobulin light chains.kappa.free [Mass/volume] in SerumHigh3.3-19.4FMagruder HospitalComment on above:Rarely, increased serum free light chains levels may not be detected or accurately quantified due to prozone phenomenon or in high viscosity samples using this immunoturbidimetric assay. Correlation with other laboratory results and clinical findings is recommended. The Chapeno Free Light Chain was performed using the Binding Site Optilite immunoturbidimetric method. Result obtained with different assay methods or kits cannot be used interchangeably.Immunoglobulin light chains.kappa.free/Immunoglobulin light chains.lambda.free [Bowen 57-20-6143Cgflqbrfoofete light chains.kappa.free/Immunoglobulin light chains.lambda.free (S) [Mass ratio]Immunoglobulin light chains.kappa.free/Immunoglobulin light chains.lambda.free [MassHigh0.26-1.65 [facility] CenterImmunoglobulin light chains.lambda.free [Mass/volume] in Serum or Plasmaon 09-89-6077Rotjwesdgxtxyn light chains.lambda.free [Mass/Vol]Immunoglobulin light chains.lambda.free [Mass/volume] in Serum or PlasmaHigh5.7-26.3FMagruder Hospital Comment on above:Rarely, increased serum free light [...] or kits cannot be used interchangeably. KAPPA/COTA,FREE,SERon 98-85-5284Cvoapfulcutqll light chains.kappa.free (S) [Mass/Vol]150.1 mg/LHigh3.3-19.4CSelect Medical Specialty Hospital - CantonComment on above:Order Comment: Specimen Type: BLOOD SPECIMENOrdering Facility: [facility] Address:[address] [place] [address] [place], [place] [address]Jxllsg Comment: Rarely, increased serum free light chains levels may not be detected or accurately q uantified due to prozone phenomenon or in high viscosity samples using this immunoturbidimetric assay. Correlation with other laboratory results and clinical findings is recommended.The Chapeno Free Light Chain was performed using the Binding Site Optilite immunoturbidimetric method. Result obtained with different assay methods or kits cannot be used interchangeably.Performed By: #### KLFRS ####[facility] LABCLIA [id number] [place] [address] [place] AMERICAImmunoglobulin light chains.kappa/Immunoglobulin light chains.lambda (S) [Mass ratio]2.81High 0.26-1.65[facility] on above:Order Comment: Specimen Type: BLOOD SPECIMENOrdering Facility: [facility] Address:[address] [place], [place] [address]Performed By: #### KLFRS ####[facility] CENTERIA [id number] [place] [address] [place] [facility] - CINCINNATIImmunoglobulin light chains.lambda.free [Mass/Vol]53.5 mg/LHigh5.7-26.3CPeoples Hospital on above:Order Comment: Specimen Type: BLOOD SPECIMENOrdering Facility: [facility] Address:[address] [place], [place] [address]Result Comment: Rarely, increased serum free light chains [...] cannot be used interchangeably.Performed By: #### KLFRS ####[facility] LABIA [id number] [place] [address] [place] AMERICALD SerPl-cCncon 94-78-5248HKN [Catalytic activity/Vol]127 U/OAlf605-894DneadedvxSouthwest General Health Center on above:Order Comment: Specimen Type: BLOOD SPECIMENOrdering Facility: [facility] Address:[address] [place], [place] [address]Pydhxhccg By: #### 3084-1, 79411-9, 2777-1, 2532-0 ####[facility] LABCLIA [id number] [place] [address] Laboratory - Chemistry and Chemistry - challengeon 85-91-7882Nhxnojo [Mass/Vol] 3.9 g/dL3.9-4.9[facility] CenterALP [Catalytic activity/Vol]96 U/B58-794JuiabxdvzUniversity Hospitals Geneva Medical CenterALT [Catalytic activity/Vol]16 U/L 10-54[facility] CenterAST [Catalytic activity/Vol]21 U/L14-40 [facility] CenterBilirubin [Mass/Vol]0.3 mg/dL0.2-1.3FMagruder HospitalCalcium [Mass/Vol]9.5 mg/dL8.5-10.2FMagruder HospitalChloride [Moles/Vol]102 mmol/P73-758NejaywksaUniversity Hospitals Geneva Medical CenterCO2 [Moles/Vol]26 mmol/Z57-30BvfaesigeUniversity Hospitals Geneva Medical CenterCreatinine [Mass/Vol]1.34 mg/dLHigh0.73-1.22[facility] CenterGlucose [Mass/Vol]237 mg/oSQkiu98-08HrzchjejtUniversity Hospitals Geneva Medical CenterComment on above: The [place] Diabetes Association (ADA) provides guidance for cutoff [...] diabetes.Reference: Standardsof Medical Care in Diabetes 2016, [place] [employer] Association. Diabetes Care. 2016.39(Suppl 1).LDH [Catalytic activity/Vol]127 U/FYpl682-250FdplvsvenUniversity Hospitals Geneva Medical CenterPotassium [Moles/Vol]4.2 mmol/L3.7-5.1FMagruder HospitalProtein [Mass/Vol]0.60 g/dLHigh<=0.00[facility] Sodium [Moles/Vol]137 mmol/J976-609BwvrzlfqaUniversity Hospitals Geneva Medical CenterUrate [Mass/Vol]5.3 mg/dL4.0-8.1FMagruder HospitalUrea nitrogen [Mass/Vol]17 mg/dL9-24[facility] CenterLaboratory - Hematology and Cell countson 15-35-0577Hcgkfhkwumd (Bld) [#/Vol]0.16 10*3/uL<0.46[facility] CenterImmature granulocytes (Bld) [#/Vol]0.03 10*3/uL<0.10 [facility] CenterImmature granulocytes/100 WBC (Bld)0.4 % [facility] CenterLeukocytes [#/volume] corrected for nucleated erythrocytes in Blood by Automated counon 24-48-5197YPM corrected for nucl RBC Auto (Bld) [#/Vol]Leukocytes [#/volume] corrected for nucleated erythrocytes in Blood by Automated coun3.70-11.00[facility] CenterLymphocytes Auto (Bld) [#/Vol]on 13-29-1085Hjlqggdytth (Bld) [#/Vol]Lymphocytes [#/volume] in Blood by Automated count1.00-4.00[facility] Lymphocytes/100 WBC Auto (Bld)on 66-99-0801Rhttpseztxg/100 WBC (Bld) Lymphocytes/100 leukocytes in Blood by Automated countDunlap Memorial HospitalH Auto (RBC) [Entitic mass]on 30-29-0427IEZ (RBC) [Entitic mass]MCH [Entitic mass] by Automated count26.0-34.0[facility] Medical CenterMCHC Auto (RBC) [Mass/Vol]on 12-05-2868LSLI (RBC) [Mass/Vol]MCHC [Mass/volume] by Automated count30.5-36.0Dunlap Memorial HospitalV Auto (RBC) [Entitic vol]on 20-02-7058CGL (RBC) [Entitic vol]MCV [Entitic volume] by Automated count 80.0-100.0[facility] CenterMonocytes Auto (Bld) [#/Vol]on 34-66-8264Lcdgtvwfk (Bld) [#/Vol]Automated blood monocyte count<0.87[facility] CenterMonocytes/100 WBC Auto (Bld)on 97-03-1295Wnahbeplp/100 WBC (Bld)Automated monocyte %[facility] Medical CenterNeutrophils Auto (Bld) [#/Vol]on 20-58-1421Zrxhizjpbxg (Bld) [#/Vol]Neutrophils [#/volume] in Blood by Automated count1.45-7.50[facility] Neutrophils/100 WBC Auto (Bld)on 64-28-8421Eyxwukiwcmz/100 WBC (Bld)Automated neutrophil %[facility] CenterNo Panel Informationon 05-10-2024 Estimated GFR (CKD-EPI)53 mL/min/1.73m???Low>=60[facility] CenterComment on above:Estimated Glomerular Filtration Rate (eGFR) is calculated using the 2020 CKD-EPI creatinine equation. This equation utilizes serum creatinine, sex, and age as parameters. The creatinine assay has traceable calibration to isotope dilution-mass spectrometry. Refer to KDIGO guidelines for clinical interpretation. In patients with unstable renal function, e.g. those with acute kidney injury, the eGFRmay not accurately reflect actual GFR. Immunofixation InterpretationUniversity Hospitals Geneva Medical CenterIonized Calcium (pH Adjusted)1.22 mmol/L1.08-1.30[facility] CenterLeuk/Lymph Sign Pathologist (Misc)Reviewed by Lily Lindsay M.D., Ph.Highland District HospitalMiscellaneous Test 6Gamma Fraction 1FMagruder HospitalMiscellaneous Test CommentReviewed by Lily Lindsay M.D., Ph.Highland District HospitalPhosphorus Level2.5 mg/dLLow2.7-4.8 [facility] CenterProtein Electrophoresis InterpretUniversity Hospitals Geneva Medical CenterProtein Electrophoresis NoteAn M protein is identified on protein electrophoresis.AbnormalNo definitive M protein is identified on protein electrophoresis.[facility]ita Health Systemerum ImmunofixationM protein is present.AbnormalNo M protein is identified.[facility] CenterNucleated RBC Auto (Bld) [#/Vol]on 98-51-1483Gwcxpbroe RBC (Bld) [#/Vol] Nucleated erythrocytes [#/volume] in Blood by Automated count<0.01[facility] CenterNucleated erythrocytes [Presence] in Blood by Automated counton 89-51-0391Jeqwikmwy RBC Auto Ql (Bld)Nucleated erythrocytes [Presence] in Blood by Automated countUniversity Hospitals Geneva Medical CenterPROTEIN ELECTROPHORESIS SERUM (P)on 09-40-4098Lqmltwk [Mass/Vol]3.57 g/dLNormal3.43-5.41 [facility] on above:Order Comment: Specimen Type: BLOOD SPECIMENOrdering Facility: [facility] Address:[address] [place], [place] [address]Performed By: #### [id number] ####[facility] LABIA [id number] [place] [address] [place] AMERICAAlpha 1 globulin Elph [Mass/Vol]0.29 g/dLNormal0.18-0.43[facility] on above:Order Comment: Specimen Type: BLOOD SPECIMENOrdering Facility: [facility] Address:[address] [place], [place] [address]Performed By: #### [id number] ####[facility] LABIA [id number] [place] [address] [place] Alpha 2 globulin Elph [Mass/Vol]0.77 g/dLNormal0.42-0.98[facility] on above:Order Comment: Specimen Type: BLOOD SPECIMENOrdering Facility: [facility] Address:[address] [place], [place] [address]Performed By: #### [id number] ####[facility] LABIA [id number] [place] [address] [place] Beta globulin Elph [Mass/Vol]0.96 g/dLNormal0.61-1.17[facility] Comment on above:Order Comment: Specimen Type: BLOOD SPECIMENOrdering Facility: [facility] Address:[address] [place] [address] Performed By: #### [id number] ####[facility] LABCLIA [id number] [place] [address] [place] Gamma globulin Elph [Mass/Vol]1.42 g/dLNormal0.53-1.51[facility] Comment on above:Order Comment: Specimen Type: BLOOD SPECIMENOrdering Facility: [facility] Address:[address] [place] [address] Performed By: #### [id number] ####[facility] LABCLIA [id number] [place] [address] [place] INTERPRETATION COMMENT FOR PROTEIN ELECTROPHORESISSee separate immunofixation report for characterization of monoclonal gammopathy.NormalSouthwest General Health Center on above:Order Comment: Specimen Type: BLOOD SPECIMENOrdering Facility: [facility] Address:[address] [place], [place] [address]Performed By: #### [id number] ####[facility] LABCLIA [id number] [place] [address] [place] M-PROTEIN LOCATIONGamma Fraction 1NormalMetroHealth Parma Medical Centerment on above:Order Comment: Specimen Type: BLOOD SPECIMENOrdering Facility: [facility] Address:[address] [place], [place] [address]Performed By: #### [id number] ####[facility] LABCLIA [id number] [place] [address] [place] AMERICAProtein Fractions [Interp]An M protein is identified on protein electrophoresis.AbnormalNo definitive M protein is identified on protein electrophoresis.[facility] on above:Order Comment: Specimen Type: BLOOD SPECIMENOrdering Facility: [facility] Address:[address] [place], [place] [address]Performed By: #### [id number] ####[facility] LABCLIA [id number] [place] [address] [place] Protein.monoclonal Elph [Mass/Vol]0.60 g/dLHigh<=0.00[facility] Comment on above:Order Comment: Specimen Type: BLOOD SPECIMENOrdering Facility: [facility] Address:[address] [place] [address] Performed By: #### [id number] ####[facility] LABCLIA [id number] [place] [address] [place] SPE STAFF REVIEWReviewed by Lily Lindsay M.D., Ph.DNormalMetroHealth Parma Medical Centerment on above:Order Comment: Specimen Type: BLOOD SPECIMENOrdering Facility: [facility] Address:[address] [place], [place] [address]Performed By: #### [id number] ####[facility] LABIA [id number] [place] [address] [place] KASSIDY Phosphate SerPl-mCncon 77-52-3015Lcjojmwwl [Mass/Vol]2.5 mg/dLLow2.7-4.8 [facility] HospitalComment on above:Order Comment: Specimen Type: BLOOD SPECIMENOrdering Facility: [facility] Address:[address] [place], [place] [address]Performed By: #### 3084-1, 49745-9, 2777-1, 2532-0 ####[facility] LABCLIA [id number] [place], [place] [address]Eskohuit mean volume Auto (Bld) [Entitic vol]on 47-46-5519Gnocinda mean volume (Bld) [Entitic vol]Platelet mean volume [Entitic volume] in Blood by Automated count9.0-12.7FMagruder Hospital Platelets Auto (Bld) [#/Vol]on 36-88-3134Yujqisyki (Bld) [#/Vol]Platelets [#/volume] in Blood by Automated -566CozyowtozUniversity Hospitals Geneva Medical Center Prot SerPl-mCncon 90-35-2814Bafrqle [Mass/Vol]7.0 g/dLNormal6.3-8.0[facility] HospitalCombeaumont hospital on above:Order Comment: Specimen Type: BLOOD SPECIMENOrdering Facility: [facility] Address:[address] [place], [place] [address]Performed By: #### 1952-1, 2885-2 ####[facility] LABCLIA [id number] [facility] [id number] STATES AMERICAPerformed By: #### 3084-1, 30491-6, 2777-1, 2532-0 ####[facility] LABCLIA [id number] [place], [place] [address]Reusram [Mass/volume] in Serum or Plasmaon 05-10-2024 Protein [Mass/Vol]Protein [Mass/volume] in Serum or Plasma6.3-8.0[facility] Geneva Medical CenterRBC Auto (Bld) [#/Vol]on 74-12-3696QTW (Bld) [#/Vol] Erythrocytes [#/volume] in Blood by Automated count4.20-6.00[facility] Health Systemerum ionized calcium measurement using ion specific electrode (mass/volume)on 11-03-1305Zyjpxra.ionized ISE [Mass/Vol]Serum ionized calcium measurement using ion specific electrode (mass/volume)1.08-1.30[facility] Health Systemerum or plasma alpha 1 globulin measurement by electrophoresis (mass/volume)on 44-21-6790Cyyjs 1 globulin Elph [Mass/Vol]Serum or plasma alpha 1 globulin measurement by electrophoresis (mass/volume)0.18-0.43 [facility] Systemerum or plasma alpha 2 globulin measurement by electrophoresis (mass/volume)on 31-55-2334Izlhf 2 globulin Elph [Mass/Vol]Serum or plasma alpha 2 globulin measurement by electrophoresis (mass/volume) 0.42-0.98[facility] Health Systemerum or plasma anion gap determinationon 99-15-6723Vwpku gap [Moles/Vol]Serum or plasma anion gap determination-[facility]ita Health Systemerum or plasma beta globulin measurement by electrophoresis (mass/volume)on 53-39-1361Ilhc globulin Elph [Mass/Vol]Serum or plasma beta globulin measurement by electrophoresis (mass/volume)0.61-1.17[facility] Health Systemerum or plasma uonm-6-xhlyehvikdlxx measurement (mass/volume)on 12-25-0147Saqn-2-Microglobulin [Mass/Vol]Serum or plasma virb-5-xdosaowatszkg measurement (mass/volume)High<3.1 [facility] Geneva Medical CenterComment on above:Beta-2 Microglobulin test is performed using the [employer] immunoturbidimetric method. Results obtained with different methods or kits cannot be used interchangeably.Serum or plasma gamma globulin measurement by electrophoresis (mass/volume)on 05-10-2024 Gamma globulin Elph [Mass/Vol]Serum or plasma gamma globulin measurement by electrophoresis (mass/volume)0.53-1.51[facility] Geneva Medical CenterUrate SerPl-mCncon 43-28-6496Qitne [Mass/Vol]5.3 mg/dLNormal4.0-8.1ClevelCritical access hospitalComment on above:Order Comment: Specimen Type: BLOOD SPECIMENOrdering Facility: [facility] Address:[address] [place], [place] [address]Performed By: #### 3084-1, 85413-8, 2777-1, 2532-0 ####[facility] LABCLIA [id number] [place], [place] [address]ZPYPFMjq 91-82-8905WCKQVANqdlqrZwokyiljs Clinic ClevelandAlbumin [Mass/volume] in Serum or Plasmaon 09-93-3484Frlyhie [Mass/Vol]Albumin [Mass/volume] in Serum or Plasma 3.43-5.41[facility] Geneva Medical CenterB2 Microglob SerPl-mCncon 02-02-2024 Papo-0-Tmeohmasooamw [Mass/Vol]3.3 ug/mLHigh<3.1CSelect Medical Specialty [facility] Comment on above:Order Comment: Specimen Type: BLOOD SPECIMENOrdering Facility: [facility] Address:[address], [place] [address]Result Comment: Beta-2 Microglobulin test is performed using the [employer] immunoturbidimetric method. Results obtained with different methods or kits cannot be used interchangeably.Performed By: #### 1952-1, 2885-2 ####[facility] LABCLIA [id number] EUCD [place]DES[place] X62WWNSIIQGXMICHELLE VIL[place] [id number] [place] STATES OF AMERICABasophils Auto (Bld) [#/Vol]on 47-96-6141Cdmtkxqlu (Bld) [#/Vol]Automated basophil count<0.11[facility] Basophils/100 WBC Auto (Bld)on 86-61-7878Bwfmcocim/100 WBC (Bld)Automated basophil %[facility] Medical CenterBlood manual differential comment interpretation narrativeon 60-42-3039Fcsmrl differential comment Augie (Bld) [Interp]Blood manual differential comment interpretation narrativeUniversity Hospitals Geneva Medical CenterCBC W Auto Differential panel (Bld)on 27-11-1734Tyeknield (Bld) [#/Vol]0.03 10*3/uLNormal<0.11CPeoples Hospital on above: Order Comment: Specimen Type: BLOOD SPECIMENOrdering Facility: [facility] Address:[address], [place] [address]Performed By: #### 86453- 8 ####[facility] LABCLIA [id number] [place], [place] [address]Vpearybot/100 WBC (Bld)0.5 %NormalSouthwest General Health Center on above:Order Comment: Specimen Type: BLOOD SPECIMENOrdering Facility: [facility] Address:[address] [place], [place] [address]Performed By: #### 44473-1 ####[facility] LABCLIA [id number] [place], [place] [address]Zfcyaytrdeqd cell count method Nom (Bld)AutoNormalCPeoples Hospital on above:Order Comment: Specimen Type: BLOOD SPECIMENOrdering Facility: [facility] Address:[address] [place], [place] [address]Performed By: #### 34240-0 ####[facility] LABCLIA [id number] [place], [place] [address]Rerjqyqoeil (Bld) [#/Vol]0.12 10*3/uLNormal<0.46[facility] on above:Order Comment: Specimen Type: BLOOD SPECIMENOrdering Facility: [facility] Address:[address] [place], [place] [address]Performed By: #### 58609-8 ####[facility] LABCLIA [id number] [place], [place] [address]Gyyonycvyej/100 WBC (Bld)1.9 %NormalSouthwest General Health Center on above:Order Comment: Specimen Type: BLOOD SPECIMENOrdering Facility: [facility] Address:[address] [place], [place] [address]Performed By: #### 01422-5 ####[facility] LABCLIA [id number] [place], [place] [address]Fvlfnpxesvl distribution width (RBC) [Ratio]12.3 %Normal 11.5-15.0[facility] on above:Order Comment: Specimen Type: BLOOD SPECIMENOrdering Facility: [facility] Address:[address] [place], [place] [address]Performed By: #### 72719-1 ####[facility] LABIA [id number] [place] [address] Hematocrit (Bld) [Volume fraction]40.7 %Bvoypw23.0-51.0[facility] on above:Order Comment: Specimen Type: BLOOD SPECIMENOrdering Facility: [facility] Address:[address] [place], [place] [address]Performed By: #### 26133-0 ####[facility] LABIA [id number] [place], [place] [address]Tsoefltbla (Bld) [Mass/Vol]13.8 g/jPFlpixf59.0-17.0[facility] on above:Order Comment: Specimen Type: BLOOD SPECIMENOrdering Facility: [facility] Address:[address] [place], [place] [address]Performed By: #### 53090-8 ####[facility] LABCLIA [id number] [place], [place] [address]Tgjfwjzn granulocytes (Bld) [#/Vol]10*3/uLNormal<0.10 [facility] on above:Order Comment: Specimen Type: BLOOD SPECIMENOrdering Facility: [facility] Address:[address] [place], [place] [address]Performed By: #### 59030-2 ####[facility] LABCLIA [id number] [place], [place] [address]Egyacvro granulocytes/100 WBC (Bld)0.2 %[facility] on above: Order Comment: Specimen Type: BLOOD SPECIMENOrdering Facility: [facility] Address:[address] [place], [place] [address]Performed By: #### 12631- 8 ####[facility] LABCLIA [id number] [place], [place] [address]Ccnypjaiwse (Bld) [#/Vol]1.48 10*3/uLNormal1.00-4.00 [facility] on above:Order Comment: Specimen Type: BLOOD SPECIMENOrdering Facility: [facility] Address:[address] [place], [place] [address]Performed By: #### 88959-9 ####[facility] LABCLIA [id number] [place], [place] [address]Krkwexvjxry/100 WBC (Bld)23.9 %[facility] on above:Order Comment: Specimen Type: BLOOD SPECIMENOrdering Facility: [facility] Address:[address] [place], [place] [address]Performed By: #### 75830-1 ####[facility] LABCLIA [id number] [place], [place] [address]DCN (RBC) [Entitic mass]30.8 fpYziivv55.0-34.0[facility] on above:Order Comment: Specimen Type: BLOOD SPECIMENOrdering Facility: [facility] Address:[address] [place], [place] [address]Performed By: #### 81718-7 ####[facility] LABCLIA [id number] [place], [place] [address]FZGD (RBC) [Mass/Vol]33.9 g/bVNtdidn96.5-36.0[facility] on above: Order Comment: Specimen Type: BLOOD SPECIMENOrdering Facility: [facility] Address:[address] [place], [place] [address]Performed By: #### 07750- 8 ####[facility] LABCLIA [id number] [place], [place] [address]FBS (RBC) [Entitic vol]90.8 kRLwopgv02.0-100.0[facility] on above:Order Comment: Specimen Type: BLOOD SPECIMENOrdering Facility: [facility] Address:[address] [place], [place] [address]Performed By: #### 41976-0 ####[facility] LABCLIA [id number] [place], [place] [address]Wahulfzkd (Bld) [#/Vol]0.56 10*3/uLNormal<0.87[facility] on above:Order Comment: Specimen Type: BLOOD SPECIMENOrdering Facility: [facility] Address:[address] [place], [place] [address]Performed By: #### 95648- 8 ####[facility] LABCLIA [id number] [place], [place] [address]Jscmsjegn/100 WBC (Bld)9.1 %NormalSouthwest General Health Center on above:Order Comment: Specimen Type: BLOOD SPECIMENOrdering Facility: [facility] Address:[address] [place], [place] [address]Performed By: #### 33492-2 ####[facility] LABCLIA [id number] [place], [place] [address]Rkeldrofpda (Bld) [#/Vol]3.98 10*3/uLNormal1.45-7.50[facility] on above:Order Comment: Specimen Type: BLOOD SPECIMENOrdering Facility: [facility] Address:[address] [place], [place] [address]Performed By: #### 88241-7 ####[facility] LABCLIA [id number] [place], [place] [address]Jugjubviykq/100 WBC (Bld)64.4 %NormalSouthwest General Health Center on above:Order Comment: Specimen Type: BLOOD SPECIMENOrdering Facility: [facility] Address:[address] [place], [place] [address]Performed By: #### 72314-5 ####[facility] LABCLIA [id number] [place], [place] [address]Xprxiftun RBC (Bld) [#/Vol] 10*3/uLNormal<0.01[facility] on above:Order Comment: Specimen Type: BLOOD SPECIMENOrdering Facility: [facility] Address:[address] [place], [place] [address]Performed By: #### 26328-0 ####[facility] LABCLIA [id number] [place], [place] [address]Lwdyeqrli RBC/100 WBC (Bld) [Ratio]0.0 /100 WBCNormal [facility] on above:Order Comment: Specimen Type: BLOOD SPECIMENOrdering Facility: [facility] Address:[address] [place], [place] [address]Performed By: #### 01769-7 ####[facility] LABCLIA [id number] [place], [place] [address]Vdckahck mean volume (Bld) [Entitic vol]9.7 fLNormal9.0-12.7CPeoples Hospital on above:Order Comment: Specimen Type: BLOOD SPECIMENOrdering Facility: [facility] Address:[address] [place] [address] Performed By: #### 68840-5 ####[facility] LABIA [id number] [place], [place] [address]Dfrvsihip (Bld) [#/Vol]181 10*3/wOBikyqv491-706NtnuljnwpSouthwest General Health Center on above:Order Comment: Specimen Type: BLOOD SPECIMENOrdering Facility: [facility] Address:[address] [place], [place] [address]Performed By: #### 95123-9 ####[facility] LABIA [id number] [place], [place] [address]WCK (Bld) [#/Vol]4.48 10*6/uLNormal4.20-6.00[facility] on above:Order Comment: Specimen Type: BLOOD SPECIMENOrdering Facility: [facility] Address:[address] [place], [place] [address]Performed By: #### 60516-8 ####[facility] LABIA [id number] [place], [place] [address]ZOC (Bld) [#/Vol]6.18 10*3/uLNormal3.70-11.00[facility] on above: Order Comment: Specimen Type: BLOOD SPECIMENOrdering Facility: [facility] Address:[address] [place], [place] [address]Performed By: #### 27249- 8 ####[facility] LABIA [id number] [place], [place] [address]Nujgyug.ionized [Moles/Vol]on 37-70-2669Opfxodk.ionized (Bld) [Mass/Vol]1.27 mmol/LNormal1.08-1.30[facility] on above:Order Comment: Specimen Type: BLOOD SPECIMENOrdering Facility: [facility] Address:[address] [place], [place] [address]Performed By: #### ####[facility] LABCLIA [id number] [address]Calcium.ionized adjusted to pH 7.4 (Bld) [Moles/Vol]1.23 mmol/LNormal1.08-1.30[facility] on above:Order Comment: Specimen Type: BLOOD SPECIMENOrdering Facility: [facility] Address:[address] [place], [place] [address]Performed By: #### ####[facility] LABCLIA [id number] [address] OF [facility] Comprehensive metabolic 2000 panelon 74-33-2396Yprurqn [Mass/Vol]3.9 g/dLNormal 3.9-4.9CPeoples Hospital on above:Order Comment: Specimen Type: BLOOD SPECIMENOrdering Facility: [facility] Address:[address] [place], [place] [address]Performed By: #### 2777-1, 40623-7, 3084-1, 2532-0 ####[facility]RA [facility] LABCLIA [id number] [place], [place] [address]PSV [Catalytic activity/Vol]84 U/KXcpmyl77-581IidhpxiebSouthwest General Health Center on above:Order Comment: Specimen Type: BLOOD SPECIMENOrdering Facility: [facility] Address:[address] [place], [place] [address]Performed By: #### 2777-1, 24229-9, 3084-1, 2532-0 ####[facility] LABCLIA [id number] [place], [place] [address]KRB [Catalytic activity/Vol]20 U/MXsodyu25-50ZleyommczSouthwest General Health Center on above:Order Comment: Specimen Type: BLOOD SPECIMENOrdering Facility: [facility] Address:[address] [place], [place] [address]Performed By: #### 2777-1, 46450-7, 3084-1, 2532-0 ####AIYANANMMALA [facility] LABCLIA [id number] [place], [place] [address]Yksis gap [Moles/Vol]12 mmol/LNormal8-15[facility] on above:Order Comment: Specimen Type: BLOOD SPECIMENOrdering Facility: [facility] Address:[address] [place], [place] [address]Performed By: #### 2777-1, 26724-9, 3084-, 2532-0 ####AIYANANMMALA [facility] LABCLIA [id number] [place], [place] [address]MAX [Catalytic activity/Vol]28 U/CMsztta18-93SwweegxtxSouthwest General Health Center on above:Order Comment: Specimen Type: BLOOD SPECIMENOrdering Facility: [facility] Address:[address] [place], [place] [address]Performed By: #### 2777-1, 43160-1, 4-, 2532-0 ####[facility]ITALM[facility] LABCLIA [id number] [place], [place] [address]Jhvrvnyax [Mass/Vol]0.4 mg/dL Normal0.2-1.3CPeoples Hospital on above:Order Comment: Specimen Type: BLOOD SPECIMENOrdering Facility: [facility] Address:[address] [place], [place] [address]Performed By: #### 2777-1, 21393-8, 3084-, 2532- 0 ####[facility] LABCLIA [id number] [place], [place] [address]Sggqbbg [Mass/Vol]9.2 mg/dLNormal8.5-10.2CPeoples Hospital on above:Order Comment: Specimen Type: BLOOD SPECIMENOrdering Facility: [facility] Address:[address] [place] [address]Ldmmllohs By: #### 2777-1, 10075-8, 3084-1, 2532-0 ####AIYANANMMALA [facility] LABCLIA [id number] [place], [place] [address]Rbqwenso [Moles/Vol]102 mmol/VGfarll61-603XunqsshnsSouthwest General Health Center on above: Order Comment: Specimen Type: BLOOD SPECIMENOrdering Facility: [facility] Address:[address] [place] [address]Hbladmhqh By: #### 2777- 1, 67783-4, 3084-1, 2532-0 ####AIYANANMMALA [facility] LABCLIA [id number] [place], [place] [address]HD4 [Moles/Vol]21 mmol/TFmu51-17 [facility] on above:Order Comment: Specimen Type: BLOOD SPECIMENOrdering Facility: [facility] Address:[address] [place] [address]Dqjzomkjj By: #### 2777-1, 65750-8, 3084-1, 2532-0 ####[facility] LABCLIA [id number] [place], [place] [address]Gbwgkmfvhg [Mass/Vol]1.28 mg/dLHigh0.73-1.22[facility] on above:Order Comment: Specimen Type: BLOOD SPECIMENOrdering Facility: [facility] Address:[address] [place], [place] [address]Performed By: #### 2777-1, 12797-4, 3084-1, 2532-0 ####[facility] LABCLIA [id number] [place], [place] [address]Ygqwkvjeqi and Glomerular filtration rate.predicted panel (S/P/Bld)56 mL/min/1.73m???Low>=60[facility] on above: Order Comment: Specimen Type: BLOOD SPECIMENOrdering Facility: [facility] Address:[address] [place], [place] [address]Sgaojx Comment: Estimated Glomerular Filtration Rate (eGFR) is [...] accurately reflect actual GFR.Performed By: #### 2777-1, 56022-2, 3083-03, 2531-0 ####[facility] LABCLIA [id number] [place], [place] [address]Ygaszfm [Mass/Vol]261 mg/sSFlli23-57 [facility] on above:Order Comment: Specimen Type: BLOOD SPECIMENOrdering Facility: [facility] Address:[address] [place] [address]Dudmhb Comment: The [place] [employer] (ADA) provides guidance for cutoff [...] Standards of Medical Care in Diabetes 2016, [place] [employer]. Diabetes Care. 2016.39(Suppl 1).Performed By: #### 2777-1, 89084-9, 3083-03, 2531-0 ####[facility] LABCLIA [id number] [place], [place] [address]Xatjepdis [Moles/Vol]4.1 mmol/L Normal3.7-5.1CPeoples Hospital on above:Order Comment: Specimen Type: BLOOD SPECIMENOrdering Facility: [facility] Address:[address] [place], [place] [address]Dtluaaghw By: #### 2777-1, 20217-7, 3084-1, 2532- 0 ####AIYANANMMAAL [facility] LABCLIA [id number] [place], [place] [address]Qmbwrhv [Mass/Vol]7.1 g/dLNormal6.3-8.0[facility] on above:Order Comment: Specimen Type: BLOOD SPECIMENOrdering Facility: [facility] Address:[address] [place], [place] [address]Performed By: #### 2777-1, 96264-5, 3084-1, 2532-0 ####[facility] LABCLIA [id number] [place], [place] [address]Vmsilt [Moles/Vol]135 mmol/XTsv868-500FiuvcfvurSouthwest General Health Center on above:Order Comment: Specimen Type: BLOOD SPECIMENOrdering Facility: [facility] Address:[address] [place], [place] [address]Performed By: #### 2777- 1, 03860-8, 3084-1, 2532-0 ####[facility]ITALMAL[facility] LABCLIA [id number] [place], [place] [address]Xhuz nitrogen [Mass/Vol]15 mg/dL Normal9-24[facility] on above:Order Comment: Specimen Type: BLOOD SPECIMENOrdering Facility: [facility] Address:[address] [place], [place] [address]Performed By: #### 2777-1, 96842-8, 3084-1, 2532- 0 ####[facility] LABCLIA [id number] [place], [place] [address]Wariyirarwf/100 WBC Auto (Bld)on 02-02-2024 Eosinophils/100 WBC (Bld)Automated eosinophil %[facility] Erythrocyte distribution width Auto (RBC) [Ratio]on 45-04-4342Jdtaxqfamlu distribution width (RBC) [Ratio]Erythrocyte distribution width [Ratio] by Automated count11.5-15.0Firtaylorsvilles Regional Medical CenterHematocrit Auto (Bld) [Volume fraction]on 24-84-0797Gouyksirqs (Bld) [Volume fraction]Hematocrit [Volume Fraction] of Blood by Automated count39.0-51.0[facility] CenterHemoglobin [Mass/volume] in Bloodon 52-20-6462Pbmsudtubl (Bld) [Mass/Vol] Hemoglobin [Mass/volume] in Blood13.0-17.0[facility] IMMUNOFIXATION SCREEN, SERUMon 65-57-7150DIOCWAOUCSOKHL (MPA)Atypical restricted bands are present in the IgG and kappa regions. Consistent with IgG kappa monoclonal gammopathy.NormalSouthwest General Health Center on above:Order Comment: Specimen Type: BLOOD SPECIMENOrdering Facility: [facility] Address:[address] [place], [place] [address]Performed By: #### IFESC ####[facility] LABCLIA [id number] [place] [address] [place] OF AMERICAMPA RESULTM protein is present. AbnormalNo M protein is identified.[facility] on above: Order Comment: Specimen Type: BLOOD SPECIMENOrdering Facility: [facility] Address:[address] [place], [place] [address]Performed By: #### IFESC ####[facility] LABCLIA [id number] [place] [address] [place] OF AMERICASTAFF REVIEW (MPA)Reviewed by Dr. David Moss MDNormalCPeoples Hospital on above:Order Comment: Specimen Type: BLOOD SPECIMENOrdering Facility: [facility] Address:[address] [place], [place] [address]Performed By: #### IFESC ####[facility] LABCLIA [id number] [place] [address] [place] AMERICAIMMUNOGLOBULINS,IGG,IGA,IGMon 69-93-2212DiY [Mass/Vol]258 mg/xDUjgvlo61-240Glzjtydco Clinic ClevelandComment on above:Order Comment: Specimen Type: BLOOD SPECIMENOrdering Facility: [facility] Address:[address] [place] [address] Performed By: #### SERIMM ####[facility] LABCLIA [id number] [place] [address] [place] IgG [Mass/Vol]1277 mg/uANettku403-7388UnkamenrtWooster Community HospitalComment on above:Order Comment: Specimen Type: BLOOD SPECIMENOrdering Facility: [facility] Address:[address] [place], [place] [address]Performed By: #### SERIMM ####[facility] LABCLIA [id number] [place] [address] [place] AMERICAIgM [Mass/Vol]316 mg/dL Tvfk91-084VvmdqqrkaWooster Community HospitalComment on above:Order Comment: Specimen Type: BLOOD SPECIMENOrdering Facility: [facility] Address:[address] [place], [place] [address]Performed By: #### SERIMM ####[facility] LABCLIA [id number] [place] [address] [place] AMERICAIgA [Mass/volume] in Serum or Plasmaon 89-21-1962DtK [Mass/Vol]IgA [Mass/volume] in Serum or Bkfnwk47-579ZplwlqygeUniversity Hospitals Geneva Medical CenterIgG [Mass/volume] in Serum or Plasmaon 55-28-2591MwQ [Mass/Vol]IgG [Mass/volume] in Serum or Vdqlgi232-3081OruohdaqnUniversity Hospitals Geneva Medical CenterIgM [Mass/volume] in Serum or Plasmaon 10-92-3332PyU [Mass/Vol]IgM [Mass/volume] in Serum or VkpqlbFwwr40-984LyzntvlhbUniversity Hospitals Geneva Medical CenterImmunoglobulin light chains.kappa.free [Mass/volume] in Serumon 27-13-6512Hhberyqqdmpcdy light chains.kappa.free (S) [Mass/Vol]Immunoglobulin light chains.kappa.free [Mass/volume] in SerumHigh3.3-19.4FMagruder HospitalComment on above:Rarely, increased serum free light chains levels may not be detected or accurately quantified due to prozone phenomenon or in high viscosity samples using this immunoturbidimetric assay. Correlation with other laboratory results and clinical findings is recommended. The [place] Free Light Chain was performed using the Binding Site Optilite immunoturbidimetric method. Result obtained with different assay methods or kits cannot be used interchangeably.Immunoglobulin light chains.kappa.free/Immunoglobulin light chains.lambda.free [Bowen 65-13-0417Pydhlmhegpvmyc light chains.kappa.free/Immunoglobulin light chains.lambda.free (S) [Mass ratio]Immunoglobulin light chains.kappa.free/Immunoglobulin light chains.lambda.free [MassHigh0.26-1.65 [facility] Medical CenterImmunoglobulin light chains.lambda.free [Mass/volume] in Serum or Plasmaon 16-00-5669Vhkhsovwsvuuof light chains.lambda.free [Mass/Vol]Immunoglobulin light chains.lambda.free [Mass/volume] in Serum or PlasmaHigh5.7-26.3FMagruder Hospital Comment on above:Rarely, increased serum free light [...] or kits cannot be used interchangeably. KAPPA/COTA,FREE,SERon 32-03-3525Ywwwmttnvdmisf light chains.kappa.free (S) [Mass/Vol]109.2 mg/LHigh3.3-19.4CGalion Hospitalment on above:Order Comment: Specimen Type: BLOOD SPECIMENOrdering Facility: [facility] Address:[address] [place] [id number] Comment: Rarely, increased serum free light chains levels may not be detected or accurately q uantified due to prozone phenomenon or in high viscosity samples using this immunoturbidimetric assay. Correlation with other laboratory results and clinical findings is recommended.The Chapeno Free Light Chain was performed using the Binding Site Optilite immunoturbidimetric method. Result obtained with different assay methods or kits cannot be used interchangeably.Performed By: #### KLFRS ####[facility] LABCLIA [id number] [place] [address] [place] OF AMERICAImmunoglobulin light chains.kappa/Immunoglobulin light chains.lambda (S) [Mass ratio]2.42High 0.26-1.65[facility] on above:Order Comment: Specimen Type: BLOOD SPECIMENOrdering Facility: [facility] Address:[address] [place], [place] [address]Performed By: #### KLFRS ####[facility] LABIA [id number] [place] [address] [place] AMERICAImmunoglobulin light chains.lambda.free [Mass/Vol]45.1 mg/LHigh5.7-26.3CPeoples Hospital on above:Order Comment: Specimen Type: BLOOD SPECIMENOrdering Facility: [facility] Address:[address] [place], [place] [address]Result Comment: Rarely, increased serum free light chains [...] cannot be used interchangeably.Performed By: #### KLFRS ####[facility] LABIA [id number] [place] [address] [place] OF AMERICALDH SerPl-cCncon 81-41-5675QFQ [Catalytic activity/Vol]136 U/RPmfrqi929-146XchfyagqgSouthwest General Health Center on above:Order Comment: Specimen Type: BLOOD SPECIMENOrdering Facility: [facility] Address:[address] [place], [place] [address]Performed By: #### 2777-1, 15874-0, 3084-1, 2532-0 ####[facility] LABCLIA [id number] [place] [address] Laboratory - Chemistry and Chemistry - challengeon 80-35-7873Vmawdmv [Mass/Vol] 3.9 g/dL3.9-4.9[facility] CenterALP [Catalytic activity/Vol]84 U/L32-070IwkxqrzbnUniversity Hospitals Geneva Medical CenterALT [Catalytic activity/Vol]20 U/L 10-54[facility] CenterAST [Catalytic activity/Vol]28 U/L14-40 [facility] CenterBilirubin [Mass/Vol]0.4 mg/dL0.2-1.3FMagruder HospitalCalcium [Mass/Vol]9.2 mg/dL8.5-10.2FMagruder HospitalChloride [Moles/Vol]102 mmol/M13-367BnitqxqddUniversity Hospitals Geneva Medical CenterCO2 [Moles/Vol]21 mmol/RAjc09-90NguabmlsfUniversity Hospitals Geneva Medical Center Creatinine [Mass/Vol]1.28 mg/dLHigh0.73-1.22[facility] Glucose [Mass/Vol]261 mg/qWTtoi51-34JtfdicmnoUniversity Hospitals Geneva Medical CenterComment on above:The [place] Diabetes Association (ADA) provides guidance for cutoff [...] diabetes.Reference: Standardsof Medical Care in Diabetes 2016, [place] [employer]. Diabetes Care. 2016.39(Suppl 1).LDH [Catalytic activity/Vol]136 U/O286-857 [facility] CenterPotassium [Moles/Vol]4.1 mmol/L3.7-5.1FMagruder HospitalProtein [Mass/Vol]0.51 g/dLHigh<=0.00Avita Health Systemodium [Moles/Vol]135 mmol/XJwg161-726RnasebzasUniversity Hospitals Geneva Medical CenterUrate [Mass/Vol]4.9 mg/dL4.0-8.1FMagruder HospitalUrea nitrogen [Mass/Vol]15 mg/dL9-24[facility] CenterLaboratory - Hematology and Cell countson 96-54-9737Nzzkgvrszip (Bld) [#/Vol]0.12 10*3/uL <0.46[facility] CenterImmature granulocytes/100 WBC (Bld)0.2 % [facility] CenterLeukocytes [#/volume] corrected for nucleated erythrocytes in Blood by Automated counon 39-92-5650AUC corrected for nucl RBC Auto (Bld) [#/Vol]Leukocytes [#/volume] corrected for nucleated erythrocytes in Blood by Automated coun3.70-11.00[facility] Medical CenterLymphocytes Auto (Bld) [#/Vol]on 16-00-3989Cejypuigpgv (Bld) [#/Vol]Lymphocytes [#/volume] in Blood by Automated count1.00-4.00[facility] Lymphocytes/100 WBC Auto (Bld)on 03-38-2781Ieacaenysyz/100 WBC (Bld) Lymphocytes/100 leukocytes in Blood by Automated countDunlap Memorial HospitalH Auto (RBC) [Entitic mass]on 91-99-7062KET (RBC) [Entitic mass]MCH [Entitic mass] by Automated count26.0-34.0[facility] Medical CenterMCHC Auto (RBC) [Mass/Vol]on 27-82-8634SLGU (RBC) [Mass/Vol]MCHC [Mass/volume] by Automated count30.5-36.0[facility] CenterMCV Auto (RBC) [Entitic vol]on 08-17-3286FHZ (RBC) [Entitic vol]MCV [Entitic volume] by Automated count 80.0-100.0[facility] CenterMonocytes Auto (Bld) [#/Vol]on 15-86-2845Kkaxdiklo (Bld) [#/Vol]Automated blood monocyte count<0.87[facility] CenterMonocytes/100 WBC Auto (Bld)on 07-63-0174Zbondbcrf/100 WBC (Bld)Automated monocyte %[facility] CenterNeutrophils Auto (Bld) [#/Vol]on 26-26-9310Xbobwybeqsa (Bld) [#/Vol]Neutrophils [#/volume] in Blood by Automated count1.45-7.50[facility] Neutrophils/100 WBC Auto (Bld)on 67-51-2307Kijflbrkvrw/100 WBC (Bld)Automated neutrophil %[facility] CenterNo Panel Informationon 02-02-2024 Estimated GFR (CKD-EPI)56 mL/min/1.73m???Low>=60[facility] CenterComment on above:Estimated Glomerular Filtration Rate (eGFR) is calculated using the 2020 CKD-EPI creatinine equation. This equation utilizes serum creatinine, sex, and age as parameters. The creatinine assay has traceable calibration to isotope dilution-mass spectrometry. Refer to KDIGO guidelines for clinical interpretation. In patients with unstable renal function, e.g. those with acute kidney injury, the eGFRmay not accurately reflect actual GFR.Immature Granulocyte # (Auto)<0.03 k/uL<0.10[facility] Immunofixation InterpretationUniversity Hospitals Geneva Medical CenterIonized Calcium (pH Adjusted)1.23 mmol/L1.08-1.30[facility] CenterLeuk/Lymph Sign Pathologist (Misc)Reviewed by Dr. David Moss MDUniversity Hospitals Geneva Medical CenterMiscellaneous Test 6Gamma Fraction 1FMagruder HospitalMiscellaneous Test CommentReviewed by Dr. David Moss [facility] CenterPhosphorus Level2.5 mg/dLLow2.7-4.8[facility] CenterProtein Electrophoresis InterpretSee commentUniversity Hospitals Geneva Medical CenterComment on above:M protein is present on the background of a polyclonal immunoglobulin population. Quantitation of the M protein may overestimate the amount of M protein present.See separate immunofixation report forcharacterization of monoclonal gammopathy.Protein Electrophoresis NoteAn M protein is identified on protein electrophoresis.AbnormalNo definitive M protein is identified on protein electrophoresis.Avita Health Systemerum ImmunofixationM protein is present.AbnormalNo M protein is identified.[facility] CenterNucleated RBC Auto (Bld) [#/Vol]on 53-27-9613Dbdkfalqz RBC (Bld) [#/Vol]Nucleated erythrocytes [#/volume] in Blood by Automated count <0.01[facility] CenterNucleated erythrocytes [Presence] in Blood by Automated counton 70-20-2092Lsduksdfs RBC Auto Ql (Bld)Nucleated erythrocytes [Presence] in Blood by Automated countUniversity Hospitals Geneva Medical CenterPROTEIN ELECTROPHORESIS SERUM (P)on 16-41-2508Rnsdagt [Mass/Vol]3.64 g/dL Normal3.43-5.41[facility] on above:Order Comment: Specimen Type: BLOOD SPECIMENOrdering Facility: [facility] Address:[address] [place], [place] [address]Performed By: #### [id number] ####[facility] LABIA [id number] [address] STATES OF [facility] CINCINNATIAlpha 1 globulin Elph [Mass/Vol] 0.26 g/dLNormal0.18-0.43[facility] on above:Order Comment: Specimen Type: BLOOD SPECIMENOrdering Facility: [facility] Address:[address] [place], [place] [address]Performed By: #### [id number] ####[facility] LABIA [id number] [address] STATES OF AMERICAAlpha 2 globulin Elph [Mass/Vol]0.73 g/dLNormal0.42-0.98[facility] on above: Order Comment: Specimen Type: BLOOD SPECIMENOrdering Facility: [facility] Address:[address] [place], [place] [address]Performed By: #### [id number] ####[facility] LABIA [id number] [address] STATES OF AMERICABeta globulin Elph [Mass/Vol]0.89 g/dLNormal0.61-1.17[facility] on above: Order Comment: Specimen Type: BLOOD SPECIMENOrdering Facility: [facility] Address:[address] [place], [place] [address]Performed By: #### [id number] ####[facility] LABIA [id number] [place] [address] [place] OF AMERICAGamma globulin Elph [Mass/Vol]1.28 g/dLNormal0.53-1.51[facility] on above: Order Comment: Specimen Type: BLOOD SPECIMENOrdering Facility: [facility] Address:[address] [place], [place] [address]Performed By: #### [id number] ####[facility] CENTERIA [id number] [place] [address] [place] OF AMERICAINTERPRETATION COMMENT FOR PROTEIN ELECTROPHORESISNormalCPeoples Hospital on above: Order Comment: Specimen Type: BLOOD SPECIMENOrdering Facility: [facility] Address:[address] [place], [place] [address]Result Comment: M protein is present on the background of a polyclonal immunoglobulin population. Qu antitation of the M protein may overestimate the amount of M protein present.See separate immunofixation report for characterization of monoclonal gammopathy. Performed By: #### [id number] ####[facility] [id number] [place] [address] [place] M-PROTEIN LOCATIONGamma Fraction 1NormalSouthwest General Health Center on above:Order Comment: Specimen Type: BLOOD SPECIMENOrdering Facility: [facility] Address:[address] [place], [place] [address]Performed By: #### [id number] ####[facility] [id number] [place] [address] [place] AMERICAProtein Fractions [Interp]An M protein is identified on protein electrophoresis.AbnormalNo definitive M protein is identified on protein electrophoresis.[facility] on above:Order Comment: Specimen Type: BLOOD SPECIMENOrdering Facility: [facility] Address:[address] [place], [place] [address]Performed By: #### [id number] ####[facility] [id number] [place] [address] [place] Protein.monoclonal Elph [Mass/Vol]0.51 g/dLHigh<=0.00[facility] Comment on above:Order Comment: Specimen Type: BLOOD SPECIMENOrdering Facility: [facility] Address:[address] [place] [address] Performed By: #### [id number] ####[facility] LABCLIA [id number] [address] [place] SPE STAFF REVIEWReviewed by Dr. David Moss MDNormalCSelect Medical Specialty Hospital [facility] Comment on above:Order Comment: Specimen Type: BLOOD SPECIMENOrdering Facility: [facility] Address:[address] [place] [address] Performed By: #### [id number] ####[facility] LABCLIA [id number] [address] [place] Phosphate SerPl-mCncon 58-03-3201Fqtcruhyt [Mass/Vol]2.5 mg/dLLow2.7-4.8 [facility] HospitalComment on above:Order Comment: Specimen Type: BLOOD SPECIMENOrdering Facility: [facility] Address:[address] [place], [place] [address]Performed By: #### 2777-1, 81795-1, 3084-1, 2532-0 ####[facility] LABCLIA [id number] [place], [place] [address]Lekvngky mean volume Auto (Bld) [Entitic vol]on 85-01-3648Cidivnlm mean volume (Bld) [Entitic vol]Platelet mean volume [Entitic volume] in Blood by Automated count9.0-12.7FMagruder Hospital Platelets Auto (Bld) [#/Vol]on 18-02-5942Mlygqopzy (Bld) [#/Vol]Platelets [#/volume] in Blood by Automated zultd296-697RhqdrhofpUniversity Hospitals Geneva [facility] Center Prot SerPl-mCncon 91-43-5540Ujyvbpc [Mass/Vol]6.8 g/dLNormal6.3-8.0[facility] on above:Order Comment: Specimen Type: BLOOD SPECIMENOrdering Facility: [facility] Address:[address] [place], [place] [address]Performed By: #### 1952-1, 2885-2 ####[facility] LABCLIA [id number] JACQUELINE LOPEZDESK [place]90[place] [address] [place] AMERICAProtein [Mass/volume] in Serum or Plasmaon 75-91-5941Zubryve [Mass/Vol]Protein [Mass/volume] in Serum or Plasma6.3-8.0[facility] CenterRBC Auto (Bld) [#/Vol]on 19-34-1009DBR (Bld) [#/Vol]Erythrocytes [#/volume] in Blood by Automated count4.20-6.00[facility] Serum ionized calcium measurement using ion specific electrode (mass/volume)on 71-87-4927Fksjrra.ionized ISE [Mass/Vol]Serum ionized calcium measurement using ion specific electrode (mass/volume)1.08-1.30[facility] Serum or plasma alpha 1 globulin measurement by electrophoresis (mass/volume)on 54-34-6960Xeefx 1 globulin Elph [Mass/Vol]Serum or plasma alpha 1 globulin measurement by electrophoresis (mass/volume)0.18-0.43[facility] Health Systemerum or plasma alpha 2 globulin measurement by electrophoresis (mass/volume)on 91-22-6949Ksbhp 2 globulin Elph [Mass/Vol]Serum or plasma alpha 2 globulin measurement by electrophoresis (mass/volume)0.42-0.98[facility] Health Systemerum or plasma anion gap determinationon 11-95-5525Zdkjr gap [Moles/Vol]Serum or plasma anion gap determination8-15[facility] Health Systemerum or plasma beta globulin measurement by electrophoresis (mass/volume)on 10-50-9613Dthv globulin Elph [Mass/Vol]Serum or plasma beta globulin measurement by electrophoresis (mass/volume)0.61-1.17[facility] Health Systemerum or plasma ktbm-7-vesussqywopdg measurement (mass/volume)on 16-82-0166Sscw-2-Microglobulin [Mass/Vol]Serum or plasma lslq-0-tpfhocltdgruf measurement (mass/volume)High<3.1FMagruder HospitalComment on above:Beta-2 Microglobulin test is performed using the [employer] immunoturbidimetric method. Results obtained with different methods or kits cannot be used interchangeably.Serum or plasma gamma globulin measurement by electrophoresis (mass/volume)on 20-21-4506Cecwc globulin Elph [Mass/Vol]Serum or plasma gamma globulin measurement by electrophoresis (mass/volume)0.53-1.51 [facility] CenterUrate SerPl-mCncon 95-39-8718Lqjms [Mass/Vol] 4.9 mg/dLNormal4.0-8.1CSelect Medical Specialty Hospital - CantonComment on above:Order Comment: Specimen Type: BLOOD SPECIMENOrdering Facility: [facility] Address:[address] [place], [place] [address]Performed By: #### 2777-1, 83419-3, 3084-1, 2532-0 ####[facility] LABCLIA [id number] [place], [place] [address]Rackvvk [Mass/volume] in Serum or Plasmaon 60-59-2466Lepkrvq [Mass/Vol]3.56 g/dL3.43-5.41[facility] Basophils Auto (Bld) [#/Vol]on 95-01-3900Xfcwvnqmt (Bld) [#/Vol]0.03 10*3/uL <0.11[facility] CenterBasophils/100 WBC Auto (Bld)on 11-03-2023 Basophils/100 WBC (Bld)0.5 %[facility] CenterBlood manual differential comment interpretation narrativeon 63-52-7788Fqzejl differential comment Augie (Bld) [Interp]AutoUniversity Hospitals Geneva Medical CenterEosinophils/100 WBC Auto (Bld)on 21-14-5586Eezfifncvjx/100 WBC (Bld)1.3 %[facility] CenterErythrocyte distribution width Auto (RBC) [Ratio]on 11-03-2023 Erythrocyte distribution width (RBC) [Ratio]12.9 %11.5-15.0[facility] CenterHematocrit Auto (Bld) [Volume fraction]on 09-28-8225Ikbnnbeafh (Bld) [Volume fraction]40.3 %39.0-51.0[facility] Hemoglobin [Mass/volume] in Bloodon 51-15-9119Rysggiqrzt (Bld) [Mass/Vol]13.5 g/dL13.0-17.0[facility] CenterIgA [Mass/volume] in Serum or Plasmaon 84-97-6211PaZ [Mass/Vol]244 mg/nS88-539JciezbaovUniversity Hospitals Geneva Medical CenterIgG [Mass/volume] in Serum or Plasmaon 72-14-1202MbI [Mass/Vol]1253 mg/dL 700-1600[facility] CenterIgM [Mass/volume] in Serum or Plasmaon 64-72-3965HzU [Mass/Vol]326 mg/zRCtfr39-754VrskpiufyUniversity Hospitals Geneva Medical Center Immunoglobulin light chains.kappa.free [Mass/volume] in Serumon 11-03-2023 Immunoglobulin light chains.kappa.free (S) [Mass/Vol]114.9 mg/LHigh3.3-19.4 [facility] CenterComment on above:Rarely, increased serum free light chains levels may not be detected or accurately quantified due to prozone phenomenon or in high viscosity samples using this immunoturbidimetric assay. Correlation with other laboratory results and clinical findings is recommended. The Chapeno Free Light Chain was performed using the Binding Site Optilite immunoturbidimetric method. Result obtained with different assay methods or kits cannot be used interchangeably.Immunoglobulin light chains.kappa.free/Immunoglobulin light chains.lambda.free [Bowen 11-03-2023 Immunoglobulin light chains.kappa.free/Immunoglobulin light chains.lambda.free (S) [Mass ratio]2.64Jdca4.26-1.65[facility] CenterImmunoglobulin light chains.lambda.free [Mass/volume] in Serum or Plasmaon 11-03-2023 Immunoglobulin light chains.lambda.free [Mass/Vol]49.3 mg/LHigh5.7-26.3FMagruder HospitalComment on above:Rarely, increased serum free light chains [...] - Chemistry and Chemistry - challenge on 10-81-3905Fkcirtn [Mass/Vol]3.8 g/dLLow3.9-4.9[facility] CenterALP [Catalytic activity/Vol]84 U/C57-894NnhgutynwUniversity Hospitals Geneva Medical Center ALT [Catalytic activity/Vol]26 U/V29-56AygkbquyhUniversity Hospitals Geneva Medical CenterAST [Catalytic activity/Vol]29 U/N73-58AjofsrjrzUniversity Hospitals Geneva Medical CenterBilirubin [Mass/Vol]0.4 mg/dL0.2-1.3FMagruder HospitalCalcium [Mass/Vol]9.7 mg/dL8.5-10.2FMagruder HospitalChloride [Moles/Vol]104 mmol/L 98-107[facility] CenterCO2 [Moles/Vol]25 mmol/M29-18BpoziapaaUniversity Hospitals Geneva Medical CenterCreatinine [Mass/Vol]1.41 mg/dLHigh0.73-1.22[facility] CenterGlucose [Mass/Vol]280 mg/tBAlvs88-71TojmxpcbhUniversity Hospitals Geneva Medical CenterComment on above:The [place] Diabetes Association (ADA) provides guidance for cutoff [...] diabetes.Reference: Standardsof Medical Care in Diabetes 2016, [place] [employer] Association. Diabetes Care. 2016.39(Suppl 1).LDH [Catalytic activity/Vol]142 U/Q790-348GpsldkahdUniversity Hospitals Geneva Medical CenterComment on above:Hemolysis present. The origin of the hemolysis, in vitro versus an in vivo hemolytic process, cannot be distinguished via this assay alone. In vitro hemolysis may lead to non-physiological (spurious)elevation in lactate dehydrogenase (LDH) results. The result should be interpreted in context of the clinical setting and other test results. Suggest reorder as clinically indicated.Potassium [Moles/Vol]4.6 mmol/L3.7-5.1FMagruder HospitalProtein [Mass/Vol]0.42 g/dLHigh <=0.00Avita Health Systemodium [Moles/Vol]138 mmol/J492-519 [facility] CenterUrate [Mass/Vol]5.4 mg/dL4.0-8.1FMagruder HospitalUrea nitrogen [Mass/Vol]21 mg/dL9-24[facility] CenterLaboratory - Hematology and Cell countson 38-33-5682Elaiinqqsrf (Bld) [#/Vol]0.08 10*3/uL<0.46[facility] CenterImmature granulocytes/100 WBC (Bld)0.3 %[facility] CenterLeukocytes [#/volume] corrected for nucleated erythrocytes in Blood by Automated counon 39-79-8323GNM corrected for nucl RBC Auto (Bld) [#/Vol]6.24 k/uL3.70-11.00 [facility] Medical CenterLymphocytes Auto (Bld) [#/Vol]on 11-03-2023 Lymphocytes (Bld) [#/Vol]1.49 10*3/uL1.00-4.00[facility] Lymphocytes/100 WBC Auto (Bld)on 69-39-5957Zeijxiymess/100 WBC (Bld)23.9 % [facility] HospitalH Auto (RBC) [Entitic mass]on 17-30-8854LKU (RBC) [Entitic mass]31.2 pg26.0-34.0[facility] CenterMCHC Auto (RBC) [Mass/Vol]on 11-21-3640HOWT (RBC) [Mass/Vol]33.5 g/dL30.5-36.0[facility] CenterMCV Auto (RBC) [Entitic vol]on 95-84-8709CBW (RBC) [Entitic vol]93.1 fL80.0-100.0[facility] CenterMonocytes Auto (Bld) [#/Vol]on 42-95-9731Otaeyfhcp (Bld) [#/Vol]0.62 10*3/uL<0.87[facility] CenterMonocytes/100 WBC Auto (Bld)on 05-26-7247Fmgxfcrtl/100 WBC (Bld)9.9 %[facility] Medical CenterNeutrophils Auto (Bld) [#/Vol]on 38-17-2328Oojkdlowggr (Bld) [#/Vol]4.00 10*3/uL1.45-7.50[facility] CenterNeutrophils/100 WBC Auto (Bld)on 78-45-3962Sbzymhakicn/100 WBC (Bld)64.1 %[facility] CenterNo Panel Informationon 11-03-2023 Estimated GFR (CKD-EPI)50 mL/min/1.73m???Low>=60[facility] CenterComment on above:Estimated Glomerular Filtration Rate (eGFR) is calculated using the 2020 CKD-EPI creatinine equation. This equation utilizes serum creatinine, sex, and age as parameters. The creatinine assay has traceable calibration to isotope dilution-mass spectrometry. Refer to KDIGO guidelines for clinical interpretation. In patients with unstable renal function, e.g. those with acute kidney injury, the eGFRmay not accurately reflect actual GFR.Immature Granulocyte # (Auto)<0.03 k/uL<0.10[facility] Immunofixation InterpretationUniversity Hospitals Geneva Medical CenterIonized Calcium (pH Adjusted)1.24 mmol/L1.08-1.30[facility] CenterLeuk/Lymph Sign Pathologist (Misc)Reviewed by Kira Reyes MDUniversity Hospitals Geneva Medical CenterMiscellaneous Test 6Gamma Fraction 1FMagruder Hospital Miscellaneous Test CommentReviewed by Kira Reyes MDUniversity Hospitals Geneva Medical CenterPhosphorus Level2.9 mg/dL2.7-4.8[facility] Protein Electrophoresis InterpretSee commentUniversity Hospitals Geneva Medical Center Comment on above:See separate immunofixation report for characterization of monoclonal gammopathy.M protein is present on the background of a polyclonal immunoglobulin population. Quantitation of the M protein may overestimate the amount of M protein present.Protein Electrophoresis NoteAn M protein is identified on protein electrophoresis.AbnormalNo definitive M protein is identified on protein electrophoresis.[facility] Health Systemerum ImmunofixationM protein is present.AbnormalNo M protein is identified.[facility] CenterNucleated RBC Auto (Bld) [#/Vol]on 54-47-4710Hxxwoeren RBC (Bld) [#/Vol]10*3/uL<0.01[facility] CenterNucleated erythrocytes [Presence] in Blood by Automated counton 25-20-8926Poqrukini RBC Auto Ql (Bld)0.0 /100{WBC}[facility] CenterPlatelet mean volume Auto (Bld) [Entitic vol]on 54-77-3373Zkrmowgm mean volume (Bld) [Entitic vol]9.7 fL9.0-12.7FMagruder HospitalPlatelets Auto (Bld) [#/Vol]on 91-68-3173Bmdhseian (Bld) [#/Vol]200 10*3/cO547-771TrgohbrhxUniversity Hospitals Geneva Medical CenterProtein [Mass/volume] in Serum or Plasmaon 86-41-6089Gweajcj [Mass/Vol]6.6 g/dL6.3-8.0[facility] CenterRBC Auto (Bld) [#/Vol]on 11-03-2023 RBC (Bld) [#/Vol]4.33 10*6/uL4.20-6.00[facility] Systemerum ionized calcium measurement using ion specific electrode (mass/volume)on 92-24-3250Pjlsioq.ionized ISE [Mass/Vol]1.28 mmol/L1.08-1.30[facility] Health Systemerum or plasma alpha 1 globulin measurement by electrophoresis (mass/volume)on 30-43-4207Msjbu 1 globulin Elph [Mass/Vol]0.25 g/dL0.18-0.43 [facility] Systemerum or plasma alpha 2 globulin measurement by electrophoresis (mass/volume)on 31-11-3350Pdtkd 2 globulin Elph [Mass/Vol]0.69 g/dL0.42-0.98[facility] Systemerum or plasma anion gap determinationon 94-41-1464Qoyvx gap [Moles/Vol]9 mmol/L8-15[facility] Systemerum or plasma beta globulin measurement by electrophoresis (mass/volume)on 87-51-9929Jldv globulin Elph [Mass/Vol]0.91 g/dL0.61-1.17 [facility] Systemerum or plasma mmbz-7-mhaonbvwcdzon measurement (mass/volume)on 85-57-4452Oily-2-Microglobulin [Mass/Vol]4.3 ug/mL High<3.1FMagruder HospitalComment on above:Beta-2 Microglobulin test is performed using the [employer] immunoturbidimetric method. Resul ts obtained with different methods or kits cannot be used interchangeably.Serum or plasma gamma globulin measurement by electrophoresis (mass/volume)on 53-61-3927Rnxtd globulin Elph [Mass/Vol]1.19 g/dL0.53-1.51[facility] CenterGlucose mean value [Mass/volume] in Blood Estimated from glycated hemoglobinon 42-41-0631Iwvxval glucose Estimated from glycated hemoglobin (Bld) [Mass/Vol]194 mg/dLUniversity Hospitals Geneva Medical CenterLaboratory - Hematology and Cell countson 01-00-2110FcX1t (Bld) [Mass fraction]8.4 %High4.5-6.2FMagruder HospitalComment on above:ADA RECOMMENDED LIMIT 4.0 - 6.0ADA THERAPEUTIC TARGET < 7.0ACTION SUGGESTED> 7.0PET+CT Whole body Bone W 18F-NaF IV on 83-86-7111OOJZZALSSZ: HEAD/NECK: * No FDG avid neoplastic process. [...] any questions regarding this interpretation, please call [phone]. If you are unable to reach us at the number above, please feel free to contact [facility] at [phone].DIVISION OF RADIOLOGY* * *Final Report* * * [...] * Radiopharmaceutical Dose: 17.6 mCi * Radiopharmaceutical: K34-Vumjncqohpghtbubls (FDG) COMPARISON: 12/05/2016 CORRELATION: CT spine 05/26/2019 RESULT: REFERENCES: SUV reference values: * Blood pool (descending aorta) activity: SUVmax 2.7 * Background liver activity: SUVmax 3.6 [employer] (topogram) images: Unremarkable. Notes and limitations: * [...] Tissues: No abnormal uptake. DIVISION OF RADIOLOGYProvider, [facility] [place] - 09/05/2023 * * *Final Report* * [...] * Radiopharmaceutical Dose: 17.6 mCi * Radiopharmaceutical: S82-Epldjdtgujieinolnv (FDG) COMPARISON: 12/05/2016 CORRELATION: CT spine 05/26/2019 RESULT: REFERENCES: SUV reference values: * Blood pool (descending aorta) activity: SUVmax 2.7 * Background liver activity: SUVmax 3.6 [employer] Operator (topogram) images: Unremarkable. Notes and limitations: * [...] any questions regarding this interpretation, please call [phone]. If you are unable to reach us at the number above, please feel free to contact [facility] eRadiology at [phone]. [facility]onPET[facility] Whole body Bone W 18F-NaF IVOrdered By: Ccf Provider on 51-23-3589Ibfijzoes ClinicGLUCOSE, BLOOD (POC)on 79-00-2834Epxqqgq [Mass/Vol]223 mg/rAQdzuicpu14 - 99 mg/dLSelect Medical Specialty Hospital - CantonComment on above:Location:[facility], [address] [place] [address] , [place], [place], [address] The Accu-Chek Inform II glucose meter has [...] above situations. Interpretation and review of laboratory resultsAbnormalCKing's Daughters Medical Center OhioT+CT Whole body Bone W 18F-NaF Sachi 46-11-8697Hjivxpfmx Study observation (narrative)Mobile ClinicAlbumin [Mass/volume] in Serum or Plasma on 14-08-6338Fxdgqmw [Mass/Vol]3.58 g/dL3.43-5.41[facility] CenterBasophils Auto (Bld) [#/Vol]on 64-44-6511Yrwqgrkve (Bld) [#/Vol]0.03 10*3/uL<0.11[facility] CenterBasophils/100 WBC Auto (Bld)on 72-69-0302Ioklembnc/100 WBC (Bld)0.4 %[facility] CenterBlood manual differential comment interpretation narrativeon 76-79-5273Nbmoaj differential comment Augie (Bld) [Interp]AutoUniversity Hospitals Geneva Medical Center Eosinophils/100 WBC Auto (Bld)on 99-96-3261Zieekprpmte/100 WBC (Bld)1.6 % [facility] CenterErythrocyte distribution width Auto (RBC) [Ratio]on 11-48-4288Cnuajhlrjgs distribution width (RBC) [Ratio]12.8 %11.5-15.0 [facility] CenterHematocrit Auto (Bld) [Volume fraction]on 04-27-5943Xlohrugdce (Bld) [Volume fraction]40.9 %39.0-51.0[facility] CenterHemoglobin [Mass/volume] in Bloodon 20-40-9417Qxzmnzuezh (Bld) [Mass/Vol]13.5 g/dL13.0-17.0[facility] CenterIgA [Mass/volume] in Serum or Plasmaon 09-59-3740BvS [Mass/Vol]237 mg/cU81-868IlqaifumwUniversity Hospitals Geneva Medical CenterIgG [Mass/volume] in Serum or Plasmaon 96-74-1295EyM [Mass/Vol] 1238 mg/dL156-4070DhwbxmgwwUniversity Hospitals Geneva Medical CenterIgM [Mass/volume] in Serum or Plasmaon 48-28-1985XlU [Mass/Vol]319 mg/aNFpxv36-946ItpxjyhyiUniversity Hospitals Geneva Medical CenterImmunoglobulin light chains.kappa.free [Mass/volume] in Serumon 08-04-2023 Immunoglobulin light chains.kappa.free (S) [Mass/Vol]102.8 mg/LHigh3.3-19.4 [facility] CenterComment on above:Rarely, increased serum free light chains levels may not be detected or accurately quantified due to prozone phenomenon or in high viscosity samples using this immunoturbidimetric assay. Correlation with other laboratory results and clinical findings is recommended. The Chapeno Free Light Chain was performed using the Binding Site [employer] immunoturbidimetric method. Result obtained with different assay methods or kits cannot be used interchangeably.Immunoglobulin light chains.kappa.free/Immunoglobulin light chains.lambda.free [Bowen 08-04-2023 Immunoglobulin light chains.kappa.free/Immunoglobulin light chains.lambda.free (S) [Mass ratio]2.09Evkx8.26-1.65[facility] CenterImmunoglobulin light chains.lambda.free [Mass/volume] in Serum or Plasmaon 08-04-2023 Immunoglobulin light chains.lambda.free [Mass/Vol]47.2 mg/LHigh5.7-26.3FMagruder HospitalComment on above:Rarely, increased serum free light chains [...] - Chemistry and Chemistry - challenge on 55-75-2548Frnzjmi [Mass/Vol]4.0 g/dL3.9-4.9[facility] ALP [Catalytic activity/Vol]88 U/D05-255UijrvkugrUniversity Hospitals Geneva Medical CenterALT [Catalytic activity/Vol]25 U/R30-42KauzpgfacUniversity Hospitals Geneva Medical CenterAST [Catalytic activity/Vol]27 U/C73-39BfchdeeryUniversity Hospitals Geneva Medical CenterBilirubin [Mass/Vol]0.3 mg/dL0.2-1.3FMagruder HospitalCalcium [Mass/Vol]9.3 mg/dL8.5-10.2FMagruder HospitalChloride [Moles/Vol]104 mmol/L 97-105[facility] CenterCO2 [Moles/Vol]23 mmol/X11-18KzlcbbouhUniversity Hospitals Geneva Medical CenterCreatinine [Mass/Vol]1.46 mg/dLHigh0.73-1.22[facility] CenterGlucose [Mass/Vol]320 mg/dKZjqg64-79TehciscmiUniversity Hospitals Geneva Medical CenterComment on above:The [place] Diabetes Association (ADA) provides guidance for cutoff [...] diabetes.Reference: Standardsof Medical Care in Diabetes 2016, [place] [employer]. Diabetes Care. 2016.39(Suppl 1).LDH [Catalytic activity/Vol]159 U/D740-023WrbjwmdomUniversity Hospitals Geneva Medical CenterPotassium [Moles/Vol]4.3 mmol/L 3.7-5.1FMagruder HospitalProtein [Mass/Vol]0.41 g/dLHigh<=0.00 [facility] Systemodium [Moles/Vol]136 mmol/O740-051YzfxkfjgcUniversity Hospitals Geneva Medical CenterUrate [Mass/Vol]4.7 mg/dL4.0-8.1FMagruder HospitalUrea nitrogen [Mass/Vol]14 mg/dL9-24[facility] CenterLaboratory - Hematology and Cell countson 31-74-0362Nxuzbsozacw (Bld) [#/Vol]0.12 10*3/uL<0.46[facility] CenterImmature granulocytes/100 WBC (Bld)0.3 %[facility] CenterLeukocytes [#/volume] corrected for nucleated erythrocytes in Blood by Automated counon 44-37-3107IFW corrected for nucl RBC Auto (Bld) [#/Vol]7.73 k/uL3.70-11.00 [facility] Medical CenterLymphocytes Auto (Bld) [#/Vol]on 08-04-2023 Lymphocytes (Bld) [#/Vol]1.81 10*3/uL1.00-4.00[facility] Lymphocytes/100 WBC Auto (Bld)on 57-68-0338Gaagwtjfmhc/100 WBC (Bld)23.4 % [facility] CenterMCH Auto (RBC) [Entitic mass]on 25-04-6966GDH (RBC) [Entitic mass]30.4 pg26.0-34.0[facility] CenterMCHC Auto (RBC) [Mass/Vol]on 46-75-1786MGVF (RBC) [Mass/Vol]33.0 g/dL30.5-36.0[facility] CenterMCV Auto (RBC) [Entitic vol]on 41-98-3258KCY (RBC) [Entitic vol]92.1 fL80.0-100.0[facility] CenterMonocytes Auto (Bld) [#/Vol]on 72-98-8456Ozujvkmkk (Bld) [#/Vol]0.84 10*3/uL<0.87[facility] CenterMonocytes/100 WBC Auto (Bld)on 83-49-3022Rsyftkdxj/100 WBC (Bld)10.9 %[facility] CenterNeutrophils Auto (Bld) [#/Vol]on 85-44-1269Ocedxggnfbj (Bld) [#/Vol]4.91 10*3/uL1.45-7.50[facility] CenterNeutrophils/100 WBC Auto (Bld)on 51-51-0922Fwrpadqtbpo/100 WBC (Bld)63.4 %[facility] CenterNo Panel Informationon 08-04-2023 Estimated GFR (CKD-EPI)48 mL/min/1.73m???Low>=60[facility] CenterComment on above:Estimated Glomerular Filtration Rate (eGFR) is calculated using the 2020 CKD-EPI creatinine equation. This equation utilizes serum creatinine, sex, and age as parameters. The creatinine assay has traceable calibration to isotope dilution-mass spectrometry. Refer to KDIGO guidelines for clinical interpretation. In patients with unstable renal function, e.g. those with acute kidney injury, the eGFRmay not accurately reflect actual GFR.Immature Granulocyte # (Auto)<0.03 k/uL<0.10[facility] Immunofixation InterpretationUniversity Hospitals Geneva Medical CenterIonized Calcium (pH Adjusted)1.20 mmol/L1.08-1.30[facility] CenterLeuk/Lymph Sign Pathologist (Misc)Reviewed by Kira Reyes MDUniversity Hospitals Geneva Medical CenterMiscellaneous Test 6Gamma Fraction 1FMagruder Hospital Miscellaneous Test CommentReviewed by Kira Reyes MDUniversity Hospitals Geneva Medical CenterPhosphorus Level2.3 mg/dLLow2.7-4.8[facility] CenterProtein Electrophoresis InterpretSee commentUniversity Hospitals Geneva Medical CenterComment on above:See separate immunofixation report for characterization of monoclonal gammopathy.M protein is present on the background of a polyclonal immunoglobulin population. Quantitation of the M protein may overestimate the amount of M protein present.Protein Electrophoresis NoteAn M protein is identified on protein electrophoresis.AbnormalNo definitive M protein is identified on protein electrophoresis.[facility] Systemerum ImmunofixationM protein is present.AbnormalNo M protein is identified.[facility] CenterNucleated RBC Auto (Bld) [#/Vol]on 61-75-2132Vviiuagxb RBC (Bld) [#/Vol]10*3/uL<0.01[facility] CenterNucleated erythrocytes [Presence] in Blood by Automated counton 36-68-4054Bhklbjwps RBC Auto Ql (Bld)0.0 /100{WBC}[facility] CenterPlatelet mean volume Auto (Bld) [Entitic vol]on 97-26-7106Wgjbttfy mean volume (Bld) [Entitic vol] 10.0 fL9.0-12.7FMagruder HospitalPlatelets Auto (Bld) [#/Vol]on 02-58-2682Mdoftmqla (Bld) [#/Vol]187 10*3/hS422-768TtvlqkaucUniversity Hospitals Geneva Medical CenterProtein [Mass/volume] in Serum or Plasmaon 07-09-7572Unveofp [Mass/Vol]6.6 g/dL6.3-8.0[facility] CenterRBC Auto (Bld) [#/Vol]on 08-04-2023 RBC (Bld) [#/Vol]4.44 10*6/uL4.20-6.00[facility] Systemerum ionized calcium measurement using ion specific electrode (mass/volume)on 92-56-1540Uxfgmns.ionized ISE [Mass/Vol]1.24 mmol/L1.08-1.30[facility] Systemerum or plasma alpha 1 globulin measurement by electrophoresis (mass/volume)on 30-06-0150Qyysd 1 globulin Elph [Mass/Vol]0.26 g/dL0.18-0.43 [facility] Systemerum or plasma alpha 2 globulin measurement by electrophoresis (mass/volume)on 20-53-0704Choym 2 globulin Elph [Mass/Vol]0.67 g/dL0.42-0.98[facility] Systemerum or plasma anion gap determinationon 69-86-1539Jyurq gap [Moles/Vol]9 mmol/L9-18FThe Jewish Hospitalerum or plasma beta globulin measurement by electrophoresis (mass/volume)on 40-82-3391Gytd globulin Elph [Mass/Vol]0.90 g/dL0.61-1.17 [facility] Systemerum or plasma lcgk-9-gzqpxibqkksgy measurement (mass/volume)on 26-04-9200Fcmn-2-Microglobulin [Mass/Vol]4.3 ug/mL High<3.1FMagruder HospitalComment on above:Beta-2 Microglobulin test is performed using the [employer] immunoturbidimetric method. Resul ts obtained with different methods or kits cannot be used interchangeably.Serum or plasma gamma globulin measurement by electrophoresis (mass/volume)on 79-09-3238Qumsv globulin Elph [Mass/Vol]1.20 g/dL0.53-1.51[facility] CenterMicroalbumin [Mass/volume] in Urineon 20-03-4921Geoqeek DL <= 20 mg/L (U) [Mass/Vol]8.0 mg/dL<=30.0[facility] CenterBasophils Auto (Bld) [#/Vol]on 22-43-1597Mczugoogo (Bld) [#/Vol]0.0 10 3/uL0.0-0.1 [facility] CenterBasophils/100 WBC Auto (Bld)on 07-11-2023 Basophils/100 WBC (Bld)0.5 %0.2-2.0[facility] CenterCholesterol in LDL Calc [Mass/Vol]on 59-60-8134Vnrrhldxphq in LDL [Mass/Vol]64.0 mg/dL [facility] CenterComment on above:<100 mg/dl QWFYXUP799-477 mg/dl NEAR OR ABOVE TKJEKKU066-152 mg/dl BORDERLINE BUNF704-551 mg/dl HIGH>190 mg/dl VERY HIGHCholesterol in VLDL Calc [Mass/Vol]on 28-87-8630Chqubpewhfm in VLDL [Mass/Vol]33.8 mg/dLUniversity Hospitals Geneva Medical CenterEosinophils/100 WBC Auto (Bld)on 40-41-7164Sgkdwyseqla/100 WBC (Bld)2.3 %0.9-7.0[facility] CenterErythrocyte distribution width Auto (RBC) [Ratio]on 07-11-2023 Erythrocyte distribution width (RBC) [Ratio]12.7 %11.0-15.0[facility] CenterEstimated glomerular filtration rate (GFR) non- Americanon 39-79-1159BYC/1.73 sq M.predicted among non-blacks MDRD (S/P/Bld) [Vol rate/Area]48 mL/min/{1.73_m2}>=60[facility] CenterGlobulin Calc (S) [Mass/Vol]on 09-92-1455Bqyounkv (S) [Mass/Vol]3.9 g/dLUniversity Hospitals Geneva Medical CenterGlucose mean value [Mass/volume] in Blood Estimated from glycated hemoglobinon 25-80-7318Xmmwleu glucose Estimated from glycated hemoglobin (Bld) [Mass/Vol]177 mg/dLUniversity Hospitals Geneva Medical CenterHematocrit Auto (Bld) [Volume fraction]on 57-87-3589Hdsmcdsova (Bld) [Volume fraction]43.0 %42.0-54.0 [facility] CenterHemoglobin [Mass/volume] in Bloodon 07-11-2023 Hemoglobin (Bld) [Mass/Vol]14.3 g/dL14.0-18.0[facility] Laboratory - Chemistry and Chemistry - challengeon 24-24-7218Mhpblzy [Mass/Vol] 3.6 g/dL3.4-5.0[facility] CenterALP [Catalytic activity/Vol]87 U/W45-618FatecitelUniversity Hospitals Geneva Medical CenterALT [Catalytic activity/Vol]37 U/L 16-63[facility] CenterAST [Catalytic activity/Vol]27 U/L15-37 [facility] CenterBilirubin [Mass/Vol]0.5 mg/dL0.2-1.0[facility] CenterCalcium [Mass/Vol]9.3 mg/dL8.5-10.1FMagruder HospitalChloride [Moles/Vol]105 mmol/A53-379QyogyzhalUniversity Hospitals Geneva Medical CenterCholesterol [Mass/Vol]137 mg/dL<=200[facility] Cholesterol in HDL [Mass/Vol]40 mg/sC02-54XeoypwifjUniversity Hospitals Geneva Medical Center Comment on above:> or =60 mg/dl - LOW CARDIOVASCULAR RISK<40 mg/dl - HIGH CARDIOVASCULAR RISKCO2 [Moles/Vol]26.9 mmol/L21.0-32.0[facility] CenterCreatinine [Mass/Vol]1.41 mg/dL0.70-1.30[facility] GFR/1.73 sq M.predicted MDRD (S/P/Bld) [Vol rate/Area]58 mL/min/{1.73_m2}>=60 [facility] CenterGlucose [Mass/Vol]158 mg/iR85-697OobvyxveqUniversity Hospitals Geneva Medical CenterPotassium [Moles/Vol]4.2 mmol/L3.5-5.1FMagruder HospitalProtein [Mass/Vol]7.5 g/dL6.4-8.2FMagruder Hospital Sodium [Moles/Vol]139 mmol/T490-325VznzupcakUniversity Hospitals Geneva Medical CenterTriglyceride [Mass/Vol]169 mg/dL<=150[facility] CenterUrea nitrogen [Mass/Vol]15.0 mg/dL7.0-18.0[facility] CenterUrea nitrogen/Creatinine [Mass ratio]10.6 mg/mgUniversity Hospitals Geneva Medical Center Laboratory - Hematology and Cell countson 00-56-3055PwM7z (Bld) [Mass fraction] 7.8 %4.5-6.2FMagruder HospitalComment on above:ADA RECOMMENDED LIMIT 4.0 - 6.0ADA THERAPEUTIC TARGET < 7.0ACTION SUGGESTED> 7.0Immature granulocytes/100 WBC (Bld)0.3 %0.0-0.5FMagruder Hospital Leukocytes [#/volume] corrected for nucleated erythrocytes in Blood by Automated counon 89-38-6584OFM corrected for nucl RBC Auto (Bld) [#/Vol]8.9 10 3/uL 4.0-11.0[facility] CenterLymphocytes Auto (Bld) [#/Vol]on 11-47-6853Vkprsnkwmdd (Bld) [#/Vol]2.4 10 3/uL1.2-3.8[facility] CenterLymphocytes/100 WBC Auto (Bld)on 95-08-8251Osetwvqgjre/100 WBC (Bld)26.8 % 20.5-60.0[facility] Medical CenterMCH Auto (RBC) [Entitic mass]on 67-15-0929YBL (RBC) [Entitic mass]31.2 pg25.9-34.0[facility] CenterMCHC Auto (RBC) [Mass/Vol]on 85-88-2060WMJD (RBC) [Mass/Vol]33.3 g/dL 29.9-35.2FMagruder HospitalMCV Auto (RBC) [Entitic vol]on 14-47-5236SFE (RBC) [Entitic vol]93.9 fL80.0-94.0[facility] CenterMonocytes Auto (Bld) [#/Vol]on 15-10-7393Rgitwrtxt (Bld) [#/Vol]0.8 10 3/uL0.3-0.8[facility] CenterMonocytes/100 WBC Auto (Bld)on 93-37-1762Fyanwuexi/100 WBC (Bld)9.5 %1.7-12.0[facility] Neutrophils Auto (Bld) [#/Vol]on 35-04-1473Tmauecbrext (Bld) [#/Vol]5.4 10 3/uL 1.4-6.5FMagruder HospitalNeutrophils/100 WBC Auto (Bld)on 74-78-5455Vblywrnbsnx/100 WBC (Bld)60.6 %43.0-75.0[facility] CenterNo Panel Informationon 52-76-3419Abvuciklnuy # (Auto)0.2 10 3/uL0.0-0.7 [facility] CenterImmature Granulocyte # (Auto)0.03 10 3/uL 0.00-0.03[facility] CenterPlatelet mean volume Auto (Bld) [Entitic vol]on 98-41-5124Tcjnqjgc mean volume (Bld) [Entitic vol]9.8 fL9.5-13.5 [facility] CenterPlatelets Auto (Bld) [#/Vol]on 07-11-2023 Platelets (Bld) [#/Vol]213 10 3/bC822-521UlddalpjzUniversity Hospitals Geneva Medical CenterRBC Auto (Bld) [#/Vol]on 68-56-0321MXT (Bld) [#/Vol]4.58 10 6/uL4.70-6.10[facility] Systemerum or plasma albumin/globulin mass ratioon 07-11-2023 Albumin/Globulin [Mass ratio]0.9 {ratio}[facility] Systemerum or plasma anion gap determinationon 93-86-3140Mxyto gap [Moles/Vol]11.3 mmol/L [facility] Systemerum or plasma total cholesterol/high density lipoprotein (HDL) cholesterol mass cr 21-89-7181Geehnfqxiop.total/Cholesterol in HDL [Mass ratio]3.4 {ratio}[facility] CenterComment on above:3.3 - 4.4 LOW RISK4.4 - 7.1 AVERAGE RISK7.1 - 11.0 MODERATE RISK>11.0 HIGH RISKGLYCOHEMOGLOBIN A1Con 61-97-0148FQD RECOMMENDATIONSEE BELOWUC West Chester HospitalComment on above:Result Comment: ADA RECOMMENDED LIMIT 4.0 - 6.0 ADA THERAPEUTIC TARGET < 7.0 ACTION SUGGESTED > 7.0Performed By: #### A1C #### [facility] [address] [place] [address] Dr. Sandy KochGlucose [Mass/Vol]169 mg/dLUC West Chester HospitalComment on above:Performed By: #### A1C #### [facility] [address] [place] [address] Dr. Sandy WeldonA1c (Bld) [Mass fraction]7.5 %Critically high4.5-6.2[facility] HospitalCombeaumont hospital on above:Performed By: #### A1C #### [facility] [address] [place] [address] Dr. Sandy KochGLYCOHEMOGLOBIN A1Con 33-56-7552ZHG RECOMMENDATIONSEE BELOWKettering Health TroyComment on above:Result Comment: ADA RECOMMENDED LIMIT 4.0 - 6.0 ADA THERAPEUTIC TARGET < 7.0 ACTION SUGGESTED > 7.0Performed By: #### A1C #### [facility] [address] [address] [address] Sandy KochGlucose [Mass/Vol]163 mg/dLUC West Chester HospitalComment on above:Performed By: #### A1C #### [facility] [address] [place] [address] Dr. Sandy WeldonA1c (Bld) [Mass fraction]7.3 %Critically high4.5-6.2[facility] HospitalComment on above:Performed By: #### A1C #### [facility] [address] [address] [address] Sandy KochGLYCOHEMOGLOBIN A1Con 77-53-7405SLS RECOMMENDATIONSEE BELOWNormal Green Cross HospitalComment on above:Result Comment: ADA RECOMMENDED LIMIT 4.0 - 6.0 ADA THERAPEUTIC TARGET < 7.0 ACTION SUGGESTED > 7.0Performed By: #### A1C #### [facility] [address] [address] [address] Sandy KochGlucose [Mass/Vol]160 mg/dLNoEast [place] Regional HospitalComment on above:Performed By: #### A1C #### [facility] [address] [address] [address] Sandy KochHbA1c (Bld) [Mass fraction]7.2 %Critically high4.5-6.2The [facility] HospitalComment on above:Performed By: #### A1C #### [facility] [address] [address] [address] Sandy KochComilagros Summaryon 07-20-9165Kqorqv SummaryHTMLBase 64 QgmktjzpNUh2mLl+PGhlYWQ+CD6VJTBfK23mjBQzaN8NU6rTKF6HVKJBVHACFY8GNV8moHH1VUycO2Ef biAv [file] ZTo (more content not included)...[facility] HospitalConsent Formson 47-68-3782Vepoqqm [id number]#1.00OTGTIFF [facility] HospitalInpatient Patient Summaryon 48-09-1681Oiodzmzay Patient SummaryL[place] [id number] Patient Discharge Instructions Name: RAFAT BELLA Dania : 1940 Patient Address: [address] [place] [address] Primary Care Provider: Name: Danilo Clark After you are discharged if you find you have any questions, please, call [phone] ext [phone] to speak to a nurse. Discharge Diagnosis: Carpal tunnel syndrome on right Prescription Information: If you have been given a prescription for narcotics, seek immediate medical attention if you have any difficulty breathing or any sudden status changes such as confusion andsleepiness. If you or anyone you know is experiencing suicidal thoughts, mental health, alcohol and/or drug addiction problems; contact the [facility] 14/10 Crisis Hotline -Text 4HEQP to 564179. If you received any narcotics, sedation, or [...] business decisions or sign any legal documents [facility] would like to thank you for allowing us to assist you with your healthcare needs.The following includes patient education materials and information regarding your injury/illness. RAFAT BELLA has been given the following list of follow-up instructions, prescriptions, and patient education materials: Follow-up Instructions With: Address: When: Carlo Richards [address] [place] [address], [address] [place] [id number] Business (1) 09/28/2020 10:00 AM Medications During [...] frequently while awake (more content not included)...Normal [facility] Intraoperative Recordon [id number] Intraoperative RecordMA Intra-Op Record Summary Primary Physician: Carlo Richards DO Finalized Date/Time: 09/20/20 13:39:22 Pt. Name: RAFAT BELLA/Sex: 1940 MALE Med Rec #: [id number] Physician: Carlo Richards DO Financial #: [id number] Pt. Type: D Room/Bed: / Admit/Disch: 09/20/20 [...] Andrew DO Role Performed Surgeon - Primary Air Value Tester Scrub Personnel Time In 09/20/20 12:20:00 09/20/20 [...] Release(Right) Counts Verification Initia (more content not included)...[facility] Preoperative Recordon [id number] Preoperative RecordMA Pre-Op Record Summary Primary Physician: Carlo Richards DO Finalized Date/Time: 09/20/20 13:52:57 Pt. Name: RAFAT BELLA/Sex: 1940 MALE Med Rec #: [id number] Physician: Carlo Richards DO Financial #: [id number] Pt. Type: D Room/Bed: / Admit/Disch: 09/20/20 [...] Signatures Signed By: Sherrie Merino RN 09/20/20 13:52[facility] HospitalOperative Report - Surgeon/Physicianon 95-73-9444Rrtqqyarh Report - Surgeon/PhysicianPreoperative diagnosis: Carpal tunnel syndrome [...] [Verified on: 09/20/2020 13:49 EDT] Carlo Richards [facility] HospitalPOCT Glucose Levelon [id number] [Mass/Vol]210 mg/uPVway95-672Ctmmswyg46 Rowe StreetComment on above:Performed By: #### [id number] #### [facility] (DEFAULT) [address] [place] [id number] Handouton 13-20-9793Zbzabdo HandoutDRMichelle WILD POST OPERATIVE [employer]NEL INSTRUCTIONS SURGEONS WRITTEN INSTRUTCTIONS: -Keep your hand elevated above your elbow for the first 24 hours after surgery -Wiggle your fingers frequently while awake -DO NOT lift heavy objects or lithographer apprentice forcefully with your hand -Change your dressing [...] or concerns, please call the office at [phone] -Follow up as scheduledUC [facility] HospitalProgress Note - Maite 09-19-2020 Progress Note - NurseDr. Richards's office called- informed Zakiya of needing patient's consent for surgery and if that patient is on coumadin and had labwork done yesterday at the [facility] -if we could get copies of those fax'd to us- Zakiya stated she would send. [Electronically Signed on: 09/19/2020 13:09 EDT] Sherrie Merino RN [Verified on: 09/19/2020 13:09 EDT] Sherrie Merino RNUC [facility] HospitalCoding Summary.on [id number] Summary.CODING DATE: 04/29/2017 FINAL [facility] STATUS: Home (Routine DC) PAYOR: Medicare [...] By: Shawna Cantu Date Saved: 04/29/2017 12:57 pmNormalThe Christ HospitalCoding Summary.on [id number] Summary.CODING DATE: 04/25/2017 FINAL [facility] STATUS: Home (Routine DC) PAYOR: Medicare [...] Shawna Cantu Date Saved: 04/25/2017 07:32 amNormal [facility] HospitalMRI Spine Thoracic w/ + w/o Contraston [id number] Spine Thoracic w/ + w/o ContrastExam Date/Time:04/24/2017 [...] Technologist: LINETTE,Technical CommentsMultiHanceContrast amount in ml's: 20Normal [facility] HospitalCreatinineon 84-13-4756Kcnbqlxksb0.6 mg/dLHigh0.5-1.3 [facility] HospitalComment on above:Performed By: #### [id number], [id number] ####[facility] [address] [place], [place] [address]zENM on 29-74-6381xSPP (black)51 mL/min/1.73 m2Low>=59[facility] Comment on above:Order Comment: Order added by Discern Expert.Result Comment: eGFR is race adjusted. AA=.Performed By: #### [id number], [id number] ####[facility] [address] [place], [place] [address]hPIQ (non-black)42 mL/min/1.73 m2Low>=59[facility] HospitalComment on above: Order Comment: Order added by Discern Expert.Result Comment: Chronic kidney disease could be indicated at eGFR's of less than 60 mL/min/1.73m2. Kidney failure is indicated at less than 15 mL/min/1.73m2.Performed By: #### [id number], [id number] ####[facility] [address] [place] [address] Vital Signs Date TimeVital SignValuePerforming PypjxepshRrubidmc81-18-3242 14:14-0400Body aqpyer261.8 cmBenjamin Ball DO Work Phone: [facility]10-20-2025 14:14-0400 Body mass index (BMI) [Ratio]37 kg/i4Lymnbhiz Ball DO Work Phone: [facility]10-20-2025 14:14-0400 Body bixgmt230.19 kgBenjamin Ball DO Work Phone: [facility]10-20-2025 14:14-0400 Diastolic blood hwvqdkai51 mm[Hg]Danilo Ball DO Work Phone: [facility]10-20-2025 14:14-0400 Heart rate75 /minBenjamin Ball DO Work Phone: [facility]10-20-2025 14:14-0400 Respiratory rate16 /minBenbrandynmin Ball DO Work Phone: [facility]10-20-2025 14:14-0400 Systolic blood squmdndw017 mm[Hg]Danilo Clark DO Work Phone: [facility]09-03-2025 10:24-0400 Body ejbtbh038.8 cmIdalmis Basilio NETWORK TECHNOLOGY INSTRUCTOR.CHIPS SCREEN TENDER Work Phone: [facility]09-03-2025 10:24-0400Body mass index (BMI) [Ratio]36.76 kg/h4StjwkvIdalmis Basilio NETWORK TECHNOLOGY INSTRUCTOR.CHIPS SCREEN TENDER Work Phone: [facility]09-03-2025 10:24-0400Body temperature 97.59 [degF]Idalmis Basilio NETWORK TECHNOLOGY INSTRUCTOR.CHIPS SCREEN TENDER Work Phone: [facility]09-03-2025 10:24-0400Body pzzicv077.2 kgIdalmis Basilio NETWORK TECHNOLOGY INSTRUCTOR.CHIPS SCREEN TENDER Work Phone: [facility]09-03-2025 10:24-0400Diastolic blood liaugmyp32 mm[Hg]Idalmis Basilio NETWORK TECHNOLOGY INSTRUCTOR.CHIPS SCREEN TENDER Work Phone: [facility]09-03-2025 10:24-0400Heart rate79 /min Idalmis Basilio NETWORK TECHNOLOGY INSTRUCTOR.CHIPS SCREEN TENDER Work Phone: [facility]09-03-2025 10:24-0400Respiratory rate 20 /minIdalmis Basilio NETWORK TECHNOLOGY INSTRUCTOR.CHIPS SCREEN TENDER Work Phone: [facility]09-03-2025 10:24-1448SaC6% (BldA) [Mass fraction]93 %Idalmis Basilio NETWORK TECHNOLOGY INSTRUCTOR.CHIPS SCREEN TENDER Work Phone: [facility]09-03-2025 10:24-0400Systolic blood mm[Hg]Idalmis Basilio NETWORK TECHNOLOGY INSTRUCTOR.CHIPS SCREEN TENDER Work Phone: [facility]07-25-2025 14:58-0400Body vrkzys961.8 cmBenjamin Ball DO Work Phone: [phone] [place], [place] 6007607-25-2025 14:58-0400 Body mass index (BMI) [Ratio]35.4 kg/z7Krfhzfuw Ball DO Work Phone: [phone] [place], [place] 6007607-25-2025 14:58-0400 Body ecrlql695.17 kgBenjamin Ball DO Work Phone: [phone] [place], [place] 6007607-25-2025 14:58-0400 Diastolic blood ktnxhxok87 mm[Hg]Danilo Ball DO Work Phone: [phone] [place], [place] 6007607-25-2025 14:58-0400 Diastolic blood secqydwm18 mm[Hg]Danilo Ball DO Work Phone: 1(995)[address] [place], [place] 6007607-25-2025 14:58-0400 Heart rate60 /minBenjamin Ball DO Work Phone: [phone] [place], [place] 6007607-25-2025 14:58-0400 Respiratory rate12 /minBenjamin Ball DO Work Phone: [phone] [place], [place] 6007607-25-2025 14:58-0400 Systolic blood iqysyxxp420 mm[Hg]Danilo Ball DO Work Phone: [phone] [place], [place] 6007607-25-2025 14:58-0400 Systolic blood fceswkgg340 mm[Hg]Danilo Ball DO Work Phone: [phone] [place], [place] 6007607-24-2025 15:56-0400 Body yvluvv958.8 cmNicholas Brown DPM Work Phone: [facility]linBnbuacxtgl27-50-6893 15:56-0400Body mass index (BMI) [Ratio]37.31 kg/f8Hacfkwaf Brown DPM Work Phone: [facility]linWyuubwknnf78-39-1051 15:56-0400Body mmpxhi886.94 kgNicholas Brown DPM Work Phone: [facility]linSrlbudmtsz87-85-0851 15:56-0400Respiratory rate16 /minJabier Aldridge DPM Work Phone: [facility] Ydziotjhkq70-95-9719 14:25-0400Body mass index (BMI) [Ratio]36.38 kg/y3XcznmkhgCatawba [facility] Medical Center NETWORK TECHNOLOGY INSTRUCTOR.CHIPS SCREEN TENDER Work Phone: [place] Dgnube66-29-7372 14:25-0400Body temperature 97.2 [degF][facility] NETWORK TECHNOLOGY INSTRUCTOR.CHIPS SCREEN TENDER Work Phone: [place] Svfmob66-19-5396 14:25-0400Body gbewfl730 kg [facility] NETWORK TECHNOLOGY INSTRUCTOR.CHIPS SCREEN TENDER Work Phone: [place] Vszqhm32-75-5702 14:25-0400Diastolic blood jgyyrchs13 mm[Hg][facility] NETWORK TECHNOLOGY INSTRUCTOR.CHIPS SCREEN TENDER Work Phone: [place] Tkqigx02-25-8906 14:25-0400Heart rate76 /min [facility] NETWORK TECHNOLOGY INSTRUCTOR.CHIPS SCREEN TENDER Work Phone: [place] Czxxdf41-99-5936 14:25-0400Respiratory rate 16 /minCatawba [facility] Center NETWORK TECHNOLOGY INSTRUCTOR.CHIPS SCREEN TENDER Work Phone: [place] Msiflo13-88-3760 14:25-1654MyY5% (BldA) [Mass fraction]94 %[facility] NETWORK TECHNOLOGY INSTRUCTOR.CHIPS SCREEN TENDER Work Phone: [place] Wejgxs26-45-9701 14:25-0400Systolic blood kabputnb933 mm[Hg][facility] NETWORK TECHNOLOGY INSTRUCTOR.CHIPS SCREEN TENDER Work Phone: [place] Hfuocw54-48-1486 14:00-0400Body aygruo765.8 cmBenjamin Ball DO Work Phone: [facility]07-04-2025 14:00-0400 Body jraeyyjowed04.4 [degF]Danilo Ball DO Work Phone: [facility]07-04-2025 14:00-0400 Body qnrsee592.39 kgBenjamin Ball DO Work Phone: [facility]07-04-2025 14:00-0400 Diastolic blood fozgmxcm79 mm[Hg]Danilo Ball DO Work Phone: [facility]07-04-2025 14:00-0400 Heart rate81 /minBenjamin Ball DO Work Phone: [facility]07-04-2025 14:00-0400 Respiratory rate18 /minBenjamin Ball DO Work Phone: [facility]07-04-2025 14:00-0400 SaO2% (BldA) [Mass fraction]94 %Danilo Ball DO Work Phone: [facility]07-04-2025 14:00-0400 Systolic blood srglcxwy771 mm[Hg]Danilo Ball DO Work Phone: [facility]06-18-2025 13:21-0400 Body .3 cmPacc 4 Work Phone: [phone]06-18-2025 13:21-0400Body mass index (BMI) [Ratio]37.24 kg/m2Pacc 4 Work Phone: [phone]06-18-2025 13:21-0400Body temperature 97.9 [degF]Pacc 4 Work Phone: [phone]06-18-2025 13:21-0400Body .4 kgPacc 4 Work Phone: [phone]06-18-2025 13:21-0400Diastolic blood earjzfqs83 mm[Hg]Pacc 4 Work Phone: [phone]06-18-2025 13:21-0400Heart rate70 /min Pacc 4 Work Phone: [phone]06-18-2025 13:21-0400Respiratory rate 16 /minPacc 4 Work Phone: [phone]06-18-2025 13:21-5483AwH8% (BldA) [Mass fraction]99 %Pac 4 Work Phone: [phone]06-18-2025 13:21-0400Systolic blood ukwexhnw698 mm[Hg]Pac 4 Work Phone: [phone]06-03-2025 12:56-0400Body mass index (BMI) [Ratio]36.82 kg/d9VasravjjCatawba [facility] Medical Center NETWORK TECHNOLOGY INSTRUCTOR.CHIPS SCREEN TENDER Work Phone: [facility] HospitalTodhgd96-25-3915 12:56-0400Body temperature 97.9 [degF][facility] NETWORK TECHNOLOGY INSTRUCTOR.CHIPS SCREEN TENDER Work Phone: XW[facility] HospitalMkfzjh78-92-3224 12:56-0400Body odrnic501.3 kgCatawba [facility] Center NETWORK TECHNOLOGY INSTRUCTOR.CHIPS SCREEN TENDER Work Phone: [facility] HospitalOrmhrx80-85-8761 12:56-0400Diastolic blood qzeksmsm18 mm[Hg]Angelique Bundrid NETWORK TECHNOLOGY INSTRUCTOR.CHIPS SCREEN TENDER Work Phone: [facility] HospitalUewcow99-30-9581 12:56-0400Heart rate89 /min [facility] Healthcarerid NETWORK TECHNOLOGY INSTRUCTOR.[facility] Work Phone: JWo[facility] HospitalDlutrp15-91-0861 12:56-0400Respiratory rate 16 /minC[facility] NETWORK TECHNOLOGY INSTRUCTOR.CHIPS SCREEN TENDER Work Phone: [facility] HospitalSjwtfv90-00-0393 12:56-9372TmY0% (BldA) [Mass fraction]94 %[facility] Healthcarerid NETWORK TECHNOLOGY INSTRUCTOR.CHIPS SCREEN TENDER Work Phone: [facility] HospitalNgvfnl80-05-3242 12:56-0400Systolic blood mafwbbrx244 mm[Hg][facility] Healthcarerid NETWORK TECHNOLOGY INSTRUCTOR.CHIPS SCREEN TENDER Work Phone: YW[facility] HospitalFlbwip44-40-5640 15:30-0400Body ulbgim097.2 Luiz Ash MD Work Phone: [facility]05-29-2025 15:30-0400Body mass index (BMI) [Ratio]36.94 kg/n2QyspiAnibal Ash MD Work Phone: [facility]05-29-2025 15:30-0400Body temperature 97.7 [degF]Anibal Ash MD Work Phone: [facility]05-29-2025 15:30-0400Body oiefgv727.7 kgAnibal Ash MD Work Phone: [facility]05-29-2025 15:30-0400Diastolic blood rqcviofl46 mm[Hg]Anibal Ash MD Work Phone: [facility]05-29-2025 15:30-0400Heart rate72 /min Anibal Ash MD Work Phone: [facility]05-29-2025 15:30-0400Respiratory rate 18 /minAnibal Ash MD Work Phone: [facility]05-29-2025 15:30-3033DpT0% (BldA) [Mass fraction]95 %Anibal Ash MD Work Phone: [facility]05-29-2025 15:30-0400Systolic blood xarorrxo334 mm[Hg]Anibal Ash MD Work Phone: [facility]05-29-2025 14:35-0400Body mass index (BMI) [Ratio]36.81 kg/m2Frankie Martinez MD Work Phone: [facility]05-29-2025 14:35-0400Body temperature 97.59 [degF]Frankie Martinez MD Work Phone: [facility]05-29-2025 14:35-0400Body jzgfva580.8 kgFrankie Martinez MD Work Phone: [facility]05-29-2025 14:35-0400Diastolic blood xbyccicx50 mm[Hg]Frankie Martinez MD Work Phone: [facility]05-29-2025 14:35-0400Heart rate70 /min Frankie Martinez MD Work Phone: [facility]05-29-2025 14:35-0400Respiratory rate 20 /minSkaleb Martinez MD Work Phone: [facility]05-29-2025 14:35-3221OcI7% (BldA) [Mass fraction]97 %Frankie Martinez MD Work Phone: [facility]05-29-2025 14:35-0400Systolic blood leqgwuwn377 mm[Hg]Frankie Martinez MD Work Phone: [facility]05-15-2025 14:18-0400Body .8 cmJabier Aldridge DPM Work Phone: [facility]linMavyrldltn28-08-8010 14:18-0400Body mass index (BMI) [Ratio]37.31 kg/g7YhulhayzJabier Aldridge DPM Work Phone: [facility]oplinQvpytwzwgi88-25-0706 14:18-0400Body adzrzg527.94 kgJabier Aldridge DPM Work Phone: [facility]linCeuafibnxj12-17-1982 14:18-0400Respiratory rate18 /Adalberto Aldridge DPM Work Phone: [facility]oplinDlyygcojik74-40-8633 13:39-0400Body kbttyj638.8 cm[facility]04-23-2025 13:39-0400Body mass index (BMI) [Ratio]35.5 kg/p9LfiuqgcfkUniversity [facility]als [facility]04-23-2025 13:39-0400Body fwnfil108.26 kgUniversity [facility]04-23-2025 13:39-0400Diastolic blood utiguuss15 mm[Hg][facility]04-23-2025 13:39-0400 Heart rate65 /[facility]04-23-2025 13:39-0400 Respiratory rate12 /[facility]04-23-2025 13:39-0400 Systolic blood hzzuyicr358 mm[Hg][facility]02-27-2025 14:30-0500Body wmckes330.8 cmJabier Aldridge DPM Work Phone: [facility]linDahsszsqal77-32-8276 14:30-0500Body mass index (BMI) [Ratio]37.31 kg/n4XggxrzoxJabier Aldridge DPM Work Phone: [facility]oplinZrnjdgthfy85-31-9485 14:30-0500Body hzjera575.94 kgJabier Aldridge DPM Work Phone: [facility]oplinLqmjciqzpd75-01-1143 14:30-0500Respiratory rate18 /minNicchicho Aldridge DPM Work Phone: [facility]linWmkzkbgwms61-30-0841 14:27-0500Body zobgth436.6 Luiz Ash MD Work Phone: [facility]02-24-2025 14:27-0500Body mass index (BMI) [Ratio]37 kg/e2JsrmsAnibal Ash MD Work Phone: [facility]02-24-2025 14:27-0500Body temperature 97.39 [degF]Anibal Ash MD Work Phone: [facility]02-24-2025 14:27-0500Body bpwemp535.4 kgAnibal Ash MD Work Phone: [facility]02-24-2025 14:27-0500Diastolic blood icyopzuv45 mm[Hg]Anibal Ash MD Work Phone: [facility]02-24-2025 14:27-0500Heart rate72 /min Anibal Ash MD Work Phone: [facility]02-24-2025 14:27-0500Respiratory rate 20 /minAnibal Ash MD Work Phone: [facility]02-24-2025 14:27-7257FqX6% (BldA) [Mass fraction]96 %Anibal Ash MD Work Phone: [facility]02-24-2025 14:27-0500Systolic blood zgnkycql413 mm[Hg]Anibal Ash MD Work Phone: [facility]01-24-2025 13:33-0500Body qyezyc933.8 cmUniversity [facility]01-24-2025 13:33-0500Body mass index (BMI) [Ratio]36.9 kg/c7OeteaxnegUniversity Hospitals [facility] Center01-24-2025 13:33-0500Body ysenni082.68 kgUniversity [facility]als [facility]01-24-2025 13:33-0500Diastolic blood rcfytrle37 mm[Hg][facility]01-24-2025 13:33-0500 Heart rate66 /[facility]01-24-2025 13:33-0500 Respiratory rate12 /[facility]01-24-2025 13:33-0500 Systolic blood ncahpohc346 mm[Hg][facility]12-19-2024 15:01-0500Body awcvyc189.8 cmRadameschicho Brown DPM Work Phone: [facility]oplinXrvwygjzpy93-85-6670 15:01-0500Body mass index (BMI) [Ratio]37.31 kg/y9Nwabynzk Brown DPM Work Phone: [facility]oplinDbsqjergxb62-18-4069 15:01-0500Body yiwlcw852.94 kgNicholas Brown DPM Work Phone: [facility]oplinSsckibinis06-91-4351 15:01-0500Respiratory rate16 /minJabier Brown DPM Work Phone: [facility]oplinHgwpsrrjys08-95-3704 14:31-0500Body wieufr247.6 cmIdalmis Basilio NETWORK TECHNOLOGY INSTRUCTOR.CHIPS SCREEN TENDER Work Phone: [facility]11-18-2024 14:31-0500Body mass index (BMI) [Ratio]36.97 kg/z8VqvyhuIdalmis Basilio NETWORK TECHNOLOGY INSTRUCTOR.CHIPS SCREEN TENDER Work Phone: [facility]11-18-2024 14:31-0500Body temperature 97 [degF]Idalmis Praful NETWORK TECHNOLOGY INSTRUCTOR.CHIPS SCREEN TENDER Work Phone: [facility]11-18-2024 14:31-0500Body lugirb589.3 kgBrandynimee Praful NETWORK TECHNOLOGY INSTRUCTOR.CHIPS SCREEN TENDER Work Phone: [facility]11-18-2024 14:31-0500Diastolic blood zsknxetp46 mm[Hg]Idalmis Praful NETWORK TECHNOLOGY INSTRUCTOR.CHIPS SCREEN TENDER Work Phone: [facility]11-18-2024 14:31-0500Heart rate65 /min Idalmis Praful NETWORK TECHNOLOGY INSTRUCTOR.CHIPS SCREEN TENDER Work Phone: [facility]11-18-2024 14:31-0500Respiratory rate 18 /minBrandynimee Praful NETWORK TECHNOLOGY INSTRUCTOR.CHIPS SCREEN TENDER Work Phone: [facility]11-18-2024 14:31-0903BkI8% (BldA) [Mass fraction]97 %Idalmis Praful NETWORK TECHNOLOGY INSTRUCTOR.CHIPS SCREEN TENDER Work Phone: [facility]11-18-2024 14:31-0500Systolic blood tdzbtowb563 mm[Hg]Idalmis Praful NETWORK TECHNOLOGY INSTRUCTOR.CHIPS SCREEN TENDER Work Phone: [facility]10-21-2024 14:38-0400Body inmydf829.8 cmUniversity [facility]10-21-2024 14:38-0400Body mass index (BMI) [Ratio]36.2 kg/o0JiaeoxoccUniversity Hospitals [facility]10-21-2024 14:38-0400Body xyeetx562.53 kgUniversity Hospitals [facility]10-21-2024 14:38-0400Diastolic blood zdwwjqux23 mm[Hg][facility]10-21-2024 14:38-0400 Heart rate70 /[facility]10-21-2024 14:38-0400 Respiratory rate12 /[facility]10-21-2024 14:38-0400 Systolic blood ubntazaf565 mm[Hg][facility]10-10-2024 15:30-0400Body yrudhe598.8 cmJabier Aldridge DPM Work Phone: [facility]oplinKicnqnxrwh43-48-2773 15:30-0400Body mass index (BMI) [Ratio]37.31 kg/g8RmsfjlfoJabier Aldridge DPM Work Phone: [facility]oplinOgghbyogpz11-32-3936 15:30-0400Body voqfvo132.94 kgJabier Aldridge DPM Work Phone: [facility]oplinZpeukeugri21-87-5052 15:30-0400Respiratory rate17 /minJabier Aldridge DPM Work Phone: [facility]linOufpgcxrqq96-49-6783 13:32-0400Body tptoss381.6 Luiz Ash MD Work Phone: [facility]08-19-2024 13:32-0400Body mass index (BMI) [Ratio]38.03 kg/p3KrwgpAnibal Ash MD Work Phone: [facility]08-19-2024 13:32-0400Body temperature 97.59 [degF]Anibal Ash MD Work Phone: [facility]08-19-2024 13:32-0400Body .6 kgAnibal Ash MD Work Phone: [facility]08-19-2024 13:32-0400Diastolic blood upzwvbpz69 mm[Hg]Anibal Ash MD Work Phone: [facility]08-19-2024 13:32-0400Heart rate91 /min Anibal Ash MD Work Phone: [facility]08-19-2024 13:32-0400Respiratory rate 20 /minAnibal Ash MD Work Phone: [place] [address]-19-2024 13:32-8961OiA1% (BldA) [Mass fraction]100 %Anibal Ash MD Work Phone: [facility]08-19-2024 13:32-0400Systolic blood rmdijkik040 mm[Hg]Anibal Ash MD Work Phone: [facility]07-26-2024 14:290400Body wnilvr797.8 cmUniversity [facility]07-26-2024 14:290400Body mass index (BMI) [Ratio]37.2 kg/q9GwrbiuglhUniversity Hospitals [facility] Center07-26-2024 14:0400Body lyohby578.7 kgUniversity [facility]als [facility]07-26-2024 14:290400Diastolic blood nlxdzeyf82 mm[Hg][facility]07-26-2024 14:290400 Heart rate84 /[facility]07-26-2024 14:290400 Respiratory rate20 /[facility]07-26-2024 14:29-0400 Systolic blood mm[Hg][facility]05-24-2024 11:310400Body tfjtvi511.8 cmUniversity [facility]05-24-2024 11:31-0400Body mass index (BMI) [Ratio]36.9 kg/o5GmhdqiczgUniversity Hospitals [facility] Center05-24-2024 11:310400Body jlcmun165.8 kgUniversity [facility] 08-15-2023 11:31-0400Diastolic blood eaemqmns86 mm[Hg][facility]05-24-2024 11:31-0400Heart rate62 /[facility] 08-15-2023 11:31-0400Respiratory rate16 /[facility] 08-15-2023 11:31-0400Systolic blood jovlhymj474 mm[Hg][facility]05-20-2024 13:01-0400Body mass index (BMI) [Ratio]37.39 kg/g1MdqvkAnibal Ash MD Work Phone: [facility]05-20-2024 13:0400Body temperature 97.5 [degF]Anibal Ash MD Work Phone: [facility]05-20-2024 13:01-0400Body .6 kgAnibal Ash MD Work Phone: [facility]05-20-2024 13:01-0400Diastolic blood lbhilwon19 mm[Hg]Anbial Ash MD Work Phone: [facility]05-20-2024 13:01-0400Heart rate76 /min Anibal Ash MD Work Phone: [facility]05-20-2024 13:01-0400Respiratory rate 16 /minAnibal Ash MD Work Phone: [facility]05-20-2024 13:01-6609UvU2% (BldA) [Mass fraction]94 %Anibal Ash MD Work Phone: [facility]05-20-2024 13:01-0400Systolic blood jymagmnr995 mm[Hg]Anibal Ash MD Work Phone: [facility]04-12-2024 14:44-0400Body pamfza029.8 cmUniversity [facility]04-12-2024 14:44-0400Body mass index (BMI) [Ratio]37.5 kg/q2IipausnkpUniversity Hospitals [facility] Center04-12-2024 14:44-0400Body xamyta920.89 kgUniversity [facility]als [facility]04-12-2024 14:44-0400Diastolic blood wuqtjuhr49 mm[Hg][facility]04-12-2024 14:44-0400 Heart rate82 /[facility]04-12-2024 14:44-0400 Respiratory rate20 /[facility]04-12-2024 14:44-0400 Systolic blood rojarexv031 mm[Hg][facility]02-20-2024 12:24-0500Body umizvg556.8 Kenan Juarez MD Work Phone: [facility]02-20-2024 12:24-0500 Body mass index (BMI) [Ratio]37.52 kg/m2Julian Juarez MD Work Phone: [facility]02-20-2024 12:24-0500 Body gajggwxnpbs46.59 [degF]Julian Juarez MD Work Phone: [facility]02-20-2024 12:24-0500 Body aarasi408.62 kguJlian Juarez MD Work Phone: [facility]10-11-2023 14:00-0400 Body hdaacx796.8 cmBenjamin Ball Other [employer] Other 10-11-2023 14:00-0400Body mass index (BMI) [Ratio] 37.02 kg/j5Uzewwzhd Ball Other [employer] Other 10-11-2023 14:00-0400Body geafui621.03 kgBenjamin Ball Other [employer] Other 10-11-2023 14:00-0400Diastolic blood ugbcjmyq41 mm[Hg] Danilo Ball Other [employer] Other 10-11-2023 14:00-0400Respiratory rate16 /minBenjamin Ball Other [employer] Other 10-11-2023 14:00-0400Systolic blood aitnhccj749 mm[Hg] Danilo Ball Other [employer] Other 07-11-2023 14:00-0400Body agnpah065.8 cmBenjamin Ball Other [employer] Other 07-11-2023 14:00-0400Body mass index (BMI) [Ratio] 37.16 kg/y6Ldlvnaph Ball Other [employer] Other 07-11-2023 14:00-0400Body ckucpq699.48 kgBenjamin Ball Other [employer] Other 07-11-2023 14:00-0400Diastolic blood jdydulwq53 mm[Hg] Danilo Ball Other [employer] Other 07-11-2023 14:00-0400Respiratory rate20 /minBenjamin Ball Other [employer] Other 07-11-2023 14:00-0400Systolic blood afamjqpi611 mm[Hg] Danilo Ball Other [employer] Other 04-11-2023 16:00-0400Body jqsakc284.8 cmBenjamin Ball Other [employer] Other 04-11-2023 16:00-0400Body mass index (BMI) [Ratio] 37.33 kg/n5Xtwgjasd Ball Other [employer] Other 04-11-2023 16:00-0400Body uksjok856.03 kgBenjamin Ball Other [employer] Other 04-11-2023 16:00-0400Diastolic blood mm[Hg] Danilo Ball Other [employer] Other 04-11-2023 16:00-0400Respiratory rate12 /minBenjamin Ball Other [employer] Other 04-11-2023 16:00-0400Systolic blood mm[Hg] Danilo Ball Other [employer] Other 01-10-2023 14:30-0500Body .8 cmBenemeterio Clark Other [employer] Other 01-10-2023 14:30-0500Body mass index (BMI) [Ratio] 37.76 kg/c3Gspbsjqh Ball Other [employer] Other 01-10-2023 14:30-0500Body ymajck895.39 kgBenemeterio Clark Other [employer] Other 01-10-2023 14:30-0500Diastolic blood mm[Hg] Danilo Clark Other [employer] Other 01-10-2023 14:30-0500Respiratory rate20 /minBelinda Clark Other [employer] Other 01-10-2023 14:30-0500Systolic blood wvyeriqf463 mm[Hg] Danilo Clark Other [employer] Other Encounters Encounter DateEncounter TypeCare ProviderFacilityStart: 01-10-2025 End: 59-38-6791tcokgntuzaLvetkiwl Ball DO Work Phone: -[facility] ClinicStart: 01-10-2025 End: 94-43-8953Ttgwzwc encounter procedureBenemeterio Ball DO-[facility] Work Phone: Start: 11-24-2024 End: 46-06-1886Xtjvyc outpatient visit 25 minutesIdalmis Basilio APRN.CHIPS SCREEN TENDER Work Phone: Hematology/OncologyComment on above: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); Mass of ear auricle, left; 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 (HCC); Stage 3a chronic kidney disease (HCC); 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)Start: 11-24-2024 End: 17-33-1337booictbmupKPACYPBM E BALLFacility:[facility]tart: 01-59-7939Rkz-patient / Non-visitAnibal Ash MD-[facility] Work Phone: Start: 11-17-2024 End: 64-86-4043mxdpnlkzkmEBSYEMXC Que BALLFacility:[facility] Hospitaltart: 10-15-2024 End: 01-81-8829ytuggnxmzxDrfhhycj Ball DO Work Phone: [facility] Work Phone: Start: 10-15-2024 End: 07-45-3412Fpymvwl encounter procedureBelinda Ball DO-[facility] Work Phone: Start: 10-14-2024 End: 07-60-7521Krgeqma encounter procedureJabier Aldridge DPM Work Phone: noms CI PODIATRYComment on above:Diabetes mellitus due to underlying condition with diabetic polyneuropathy, 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) (Primary Dx); Pain due to onychomycosis of toenails of both feet; Acquired deformity of right toe; Acquired deformity of left toeStart: 10-14-2024 End: 01-17-6822owtpmbibigZIGELLAD A BROWNNot AvailableStart: 10-14-2024 End: 42-45-4453Nykdsokelvin Aldridge DPM Work Phone: noMS CI PODIATRYStart: 10-14-2024 End: 92-21-4956Dhavumkelvin Aldridge DPM Work Phone: noms CI PODIATRYStart: 10-12-2024 End: 64-33-0304Hqdvquo encounter Ramírez Donis APRN.CHIPS SCREEN TENDER Work Phone: palliative MedicineComment on above:Palliative care by specialist (Primary Dx); 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 (HCC); Parotid neoplasm; Chronic pain due to neoplasm; Constipation due to opioid therapyStart: 10-12-2024 End: 90-60-8741bwnbargqieIFEPZXPI J BUNDRIDGEFacility:[facility] Start: 10-12-2024 End: 93-39-7005Jhxucsp encounter procedureGurpreet Pang MD Work Phone: OtolaryngologyComment on above:Parotid neoplasm (Primary Dx); Cancer of the parotid gland (HCC)Start: 10-12-2024 End: 86-18-9925qvrgxuagyfKXALZF SCHARPFFacility:[facility] Hospitaltart: 09-27-2024 End: 97-03-8809ivgfqyqrdtVxy/[place] Work Phone: Hematology/OncologyComment on above: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); Mass of ear auricle, leftStart: 09-24-2024 End: 39-98-8043Xrtijkals department patient visitDanilo Clark DO Work Phone: [phone]-Kxybeqzjm Room Work Phone: Start: 09-23-2024 End: 97-56-3239Nwyhqyzbz encounterGurpreet Pang MD Work Phone: Head and Neck InstituteComment on above:Patient QuestionStart: 22-24-5202Cfg-patient / Non-visitCatjaleesa Clark [facility] Work Phone: Start: 03-50-4781Hvr-patient / Non-visitGurpreet Pang MD-[facility] Work Phone: Start: 85-82-9195Egt-patient / Non-visitGurpreet Pang MD-[facility] Work Phone: Start: 61-22-9336Pgc-patient / Non-visitGurpreet Pang MD-[facility] Work Phone: Start: 09-17-2024 End: 49-72-8144dqcorrfdabSXXKJEHC E BALLFacility:[facility]Start: 09-16-2024 End: 86-17-1923bmqwqxogpdEFADDEQE E BALLFacility:[facility] HospitalStart: 09-09-2024 End: 80-90-6093Qmzwachmu encounterGabi Giovannijarochoque RNPre AnesthesiaComment on above: Anticoagulation Follow UpStart: 11-45-8538Kgq-patient / Non-visitJosechhaya Pang MD-[facility] Work Phone: Start: 09-08-2024 End: 05-46-2444Sqhajenwex hospital visit by physicianXr [facility] Work Phone: RadiologyComment on above: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]Start: 09-08-2024 End: 72-65-7170Trjcaxn encounter procedureRicha Kyle RT(R)RadiologyStart: 09-08-2024 End: 89-81-1143Htjcyrebp to establishmentVeterans [facility] 4 Work Phone: Pre AnesthesiaStart: 09-08-2024 End: 97-16-9610Ehtyoflgvg consultationFranciscan Health 4 Work Phone: Pre AnesthesiaComment on above:Mucoepidermoid carcinoma (HCC); Type 2 diabetes mellitus with diabetic chronic kidney disease, unspecified CKD stage, unspecified whether care home insulin use (HCC); Anticoagulated; Stage 3b chronic kidney disease (HCC); 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 (HCC); Chronic pain due to neoplasm; Primary hypertension; BMI 37.0-37.9, adultStart: 09-08-2024 End: 31-01-0337uaqcxmqbspRbqdow M Shimrock RT(R)RadiologyComment on above:Radio Gen RMPStart: 09-03-2024 End: 15-55-1517bfgnwkeqdlUjg Magalski RNPre AnesthesiaStart: 09-03-2024 End: 95-22-8542Jsaifybvgk consultationSara Pritchett RNPre AnesthesiaComment on above:Opened In ErrorStart: 08-31-2024 End: 54-79-7255Yplbkighf encounterJolong Abreurpf MD Work Phone: Head and Neck InstituteStart: 08-24-2024 End: 37-88-5686Pdtmrjw encounter procedureAngelique Donis APRN.CNP Work Phone: palliative MedicineComment on above:Palliative care by specialist (Primary Dx); Parotid neoplasm; 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 (HCC); Chronic pain due to neoplasm; Constipation due to opioid therapyStart: 08-24-2024 End: 82-50-7714kqvmhxqktdZMYAQQPY E BALLFacility:[facility] Hospitaltart: 08-20-2024 End: 07-40-0859Iiuhuxqkx encounterAnibal Ash MD Work Phone: Cancer Appts MCStart: 08-19-2024 End: 94-35-2513Bjoccx outpatient visit 25 minutesAnibal Ash MD Work Phone: Hematology/OncologyComment on above: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 (HCC) (Primary Dx); 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); Type 2 diabetes mellitus with diabetic chronic kidney disease, unspecified CKD stage, unspecified whether care home insulin use (HCC)Start: 08-19-2024 End: 88-81-8706tudzakwvhkCGJARTBO E BALLFacility:[facility] Hospitaltart: 08-19-2024 End: 24-32-6740Qwjlyyq encounter procedureSkaleb Martinez MD Work Phone: Radiation OncologyComment on above:Head and neck cancer (HCC) (Primary Dx); Parotid neoplasm; Parotid massStart: 66-39-1514Jsp-patient / Non-visitAnibal Ash MD-[facility] Work Phone: Start: 08-19-2024 End: 46-03-4976lpfhuyabwkHMXNNO SCHARPFFacility:[facility] Hospitaltart: 08-13-2024 End: 43-00-7788Wbwisrt encounter procedureGurpreet Pang MD Work Phone: OtolaryngologyComment on above:Parotid neoplasm (Primary Dx); Parotid mass; 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 (HCC)Start: 08-13-2024 End: 98-12-1262tdnhrncgpmZRZVWVVU E BALLFacility:[facility] Hospitaltart: 08-05-2024 End: 97-91-3200Cgokgix encounter procedureJabier Aldridge DPM Work Phone: noMS CI PODIATRYComment on above:Diabetes mellitus due to underlying condition with diabetic polyneuropathy, unspecified whether care home insulin use (CMS/HCC) (Primary Dx); Pain due to onychomycosis of toenails of both feet; Acquired deformity of right toe; Acquired deformity of left toeStart: 08-05-2024 End: 65-60-7306mstobnowswAWOZRVVM A BROWNNot AvailableStart: 08-05-2024 End: 87-36-4464Gplwoe flowsBenji Aldridge DPM Work Phone: noms CI PODIATRYStart: 08-05-2024 End: 18-87-5285Fmvvyr Rony Aldridge DPM Work Phone: noMS CI PODIATRYStart: 08-02-2024 End: 21-54-6542Cwxaijjtr encounterRafaela Rodriguez RNHematology/OncologyComment on above:ENT Path resultsStart: 07-30-2024 End: 50-22-1341Hsoceozoa encounterGurpreet Pang MD Work Phone: Mobile ServicesComment on above:42605- bill; Initial ConsultStart: 07-28-2024 End: 18-62-4379Pfnchpvec encounterGurpreet Pang MD Work Phone: OtolaryngologyStart: 07-21-2024 End: 42-76-9848rlhxsbgltgBWMTDEXN E BALLFacility:[facility] Hospitaltart: 82-71-5510Ony-patient / Non-visitBenbrandynmin Ball DO-[facility] Work Phone: Start: 07-16-2024 End: 25-27-2117hotsighkkxLIPYEZJI E BALLFacility:[facility] Hospitaltart: 07-14-2024 End: 51-83-0351zqlrmmulbsNpeiamzvoSouthview Medical Center Work Phone: Start: 07-14-2024 End: 51-78-8642Slauabx encounter procedureSandhills Regional Medical Center Physician [facility] Work Phone: Start: 18-42-8056Qpqtins encounter procedureAvita Health Systemtart: 07-08-2024 End: 41-29-9353Dmaqzne encounter procedureGurpreet Pang MD Work Phone: OtolaryngologyComment on above: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 (HCC) (Primary Dx); Parotid massStart: 07-08-2024 End: 26-21-7950Byxiawzqm encounterGurpreet Pang MD Work Phone: OtolaryngologyComment on above:Biopsy RequestStart: 07-08-2024 End: 84-28-0302otqomnlgcxQTTYKRRE E BALLFacility:[facility] Hospitaltart: 05-28-2024 End: 72-82-8413keyjiwmzpsDEONEYIE E BALLFacility:[facility] Hospitaltart: 05-28-2024 End: 34-19-0925Zidgjjebui hospital visit by physicianArrival Time Radiology Work Phone: Radiology Pet CTComment on above:Mass of ear auricle, left [H93.8X2]Start: 05-20-2024 End: 08-92-2577Ezdmcqx encounter Jesus Aldridge DPM Work Phone: NOMS CI PODIATRYComment on above:Diabetes mellitus due to underlying condition with diabetic polyneuropathy, unspecified whether care home insulin use (CMS/HCC) (Primary Dx); Pain due to onychomycosis of toenails of both feet; Acquired deformity of right toe; Acquired deformity of left toeStart: 05-20-2024 End: 19-89-7750pormygegjpAQXDENGC A BROWNNot AvailableStart: 05-20-2024 End: 16-93-7354Vfdkym Rony Aldridge DPM Work Phone: noms CI PODIATRYStart: 05-20-2024 End: 95-06-0037Opqlnt Rony Aldridge DPM Work Phone: noms CI PODIATRYStart: 05-17-2024 End: 96-41-5818dmuigwttaoWDGQHYRJ E BALLFacility:[facility] Hospitaltart: 05-17-2024 End: 36-88-2251Osdvlw outpatient visit 40 minutesAnibal Ash MD Work Phone: Hematology/OncologyComment on above:Mass of ear auricle, left (Primary Dx); 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 (HCC); Thrombocytopenia (HCC); Chronic anticoagulation; Type 2 diabetes mellitus with diabetic chronic kidney disease, unspecified CKD stage, unspecified whether care home insulin use (HCC); Stage 3b chronic kidney disease (HCC)Start: 05-17-2024 End: 42-58-7620Svyfczodt encounterAnibal Ash MD Work Phone: Cancer Appts MCComment on above:Future Appointment Start: 05-10-2024 End: 48-14-6271smckmgxkahKIYAYBQW E BALLFacility:[facility] Hospitaltart: 83-75-4279Fbp-patient / Non-visitFiraugusta health Physician Group-[facility] Work Phone: Start: 04-16-2024 End: 98-19-6629krwrprkjhpNhalwtjmtSouthview Medical Center Work Phone: Start: 04-16-2024 End: 72-32-7977Sicvkul encounter procedureSandhills Regional Medical Center Physician GroupDayton [facility] Medical Center Work Phone: Start: 03-11-2024 End: 54-67-4335Ypgnbhm encounter Jesus Aldridge DPM Work Phone: noms CI PODIATRYComment on above:Diabetes mellitus due to underlying condition with diabetic polyneuropathy, 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) (Primary Dx); Pain due to onychomycosis of toenails of both feet; Acquired deformity of right toe; Acquired deformity of left toeStart: 03-11-2024 End: 56-90-8777chhnyjunusOEQNXCTQ A BROWNNot AvailableStart: 03-11-2024 End: 33-25-4993Ifyobd flowsBenji Aldridge DPM Work Phone: noms CI PODIATRYStart: 03-11-2024 End: 08-78-6236Evqrdr Rony Aldridge DPM Work Phone: noms CI PODIATRYStart: 02-09-2024 End: 36-55-0055xrrashzpagJYXLJKAT E BALLFacility:[facility] Hospitaltart: 02-09-2024 End: 99-71-6633Gpsbmv outpatient visit 25 minutesIdalmis Basilio APRN.CNP Work Phone: Hematology/OncologyComment on above: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 (HCC) (Primary Dx); Stage 3a chronic kidney disease (HCC)Start: 02-02-2024 End: 64-06-0960kliymaxjxdTEQTTUCY E BALLFacility:[facility] Hospitaltart: 06-81-1552Cjv-patient / Non-visitSandhills Regional Medical Center Physician Group-[facility] Work Phone: Start: 01-12-2024 End: 73-21-6627rygqcfxximPkjnnnsdiSamaritan North Health Center Work Phone: Start: 01-12-2024 End: 75-26-8478Lbibrny encounter procedureRoberttaylorsvillejuan Physician GroupDayton VA Medical Center Work Phone: Start: 01-01-2024 End: 24-31-6498Smmylem encounter Jesus Aldridge DPM Work Phone: noms CI PODIATRYComment on above:Diabetes mellitus due to underlying condition with diabetic polyneuropathy, 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 (CMS/[facility]) (Primary Dx); Pain due to onychomycosis of toenails of both feet; Acquired deformity of right toe; Acquired deformity of left toeStart: 01-01-2024 End: 40-06-6464cqxmomczetRCXLWHIY A BROWNNot AvailableStart: 01-01-2024 End: 59-63-2865Cbvamt flowsBenji Aldridge DPM Work Phone: noms CI PODIATRYStart: 01-01-2024 End: 40-10-2448Uabmsb Rony Aldridge DPM Work Phone: noms CI PODIATRYStart: 11-10-2023 End: 75-89-4039Cxtdbk outpatient visit 25 minutesAnibal Ash MD Work Phone: Hematology/OncologyComment on above: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 (HCC) (Primary Dx); Stage 3a chronic kidney disease (HCC); Thrombocytopenia (HCC)Start: 20-96-8360Uwz-patient / Non-visitSandhills Regional Medical Center Physician [facility] [place] [facility] Work Phone: Start: 10-23-2023 End: 49-31-5099gzxjzrayetLJENWVEP A BROWNNot AvailableStart: 10-17-2023 End: 20-41-1231sksykfjwdmQkrhravurSamaritan North Health Center Work Phone: Start: 10-17-2023 End: 20-31-5120Vilaoix encounter procedureSandhills Regional Medical Center Physician GroupDayton [facility] Work Phone: Start: 46-87-9546Kut-patient / Non-visitSandhills Regional Medical Center Physician [facility] [place] [facility] Work Phone: Start: 08-29-2023 End: 55-60-3022Dsrbtfexpn hospital visit by physicianArrival Time Radiology Work Phone: Radiology Pet CTComment on above: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 (HCC) [C90.00]Start: 95-88-0698lalgtvddlsJddnisuvuSamaritan North Health Center Work Phone: Start: 41-63-0123Sco-patient / Non-visitSandhills Regional Medical Center Physician [facility] [place] [facility] Work Phone: Start: 08-15-2023 End: 54-07-2298pknhnvpdzfMqziyczapSamaritan North Health Center Work Phone: Start: 08-15-2023 End: 14-03-6331Plldany encounter procedureSandhills Regional Medical Center Physician Group-[facility] Work Phone: Start: 59-21-6836Mfxmyvvwi encounterAnibal Ash MD Work Phone: Cancer Appts MCComment on above:ResultsStart: 08-11-2023 End: 92-50-6583Cqwdbm outpatient visit 25 minutesAnibal Ash MD Work Phone: Hematology/OncologyComment on above: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 (HCC) (Primary Dx); Flank pain; Mild episode of recurrent major depressive disorder (HCC); Thrombocytopenia (HCC); Stage 3b chronic kidney disease (HCC); Stage 3a chronic kidney disease (HCC)Start: 26-09-0585Xmb-patient / Non-visit [facility] Physician GroupSwed[facility] Work Phone: Start: 65-61-1385Qgg-patient / Non-visitSandhills Regional Medical Center Physician [facility] [place] [facility] Work Phone: Start: 59-05-9185Cqm-patient / Non-visitSandhills Regional Medical Center Physician GroupSwed[facility] Work Phone: Start: 07-04-2023 End: 60-85-0923vipgtgdhprGmwlchgqfSamaritan North Health Center Work Phone: Start: 07-04-2023 End: 37-39-4930Nlsgtkl encounter procedureSandhills Regional Medical Center Physician Group-[facility] Work Phone: Start: 61-81-8118Hla-patient / Non-visitSandhills Regional Medical Center Physician GroupSwedish [facility] Work Phone: Start: 63-48-2875gyvxmbgoogPFIChildren's Hospital for Rehabilitationtart: 05-13-2023 End: 33-80-2210bxwmsglzkzOSD P REZAEEDetwiler Memorial Hospital AmbulatoryStart: 05-13-2023 End: 30-36-0447Aazuhs outpatient new 60 minutesRod Kristi Juarez MD Work Phone: uh [facility] Medical CenterComment on above:Parotid mass (Primary Dx)Start: 02-27-2023 End: 00-32-3729ibzpvxywagBbazcelr Ball Other [employer] Other Start: 33-55-3151Jbabkufqi encounterBenjamin BallFPG Ball Medical ClinicStart: 02-04-2023 End: 87-95-1892mhrnnssvzkVytnohql Ball Other [employer] Other Start: 36-94-5830Ldyyckfwr encounterBenjamin BallFPG [facility] Medical ClinicStart: 02-03-2023 End: 61-37-8540hueldtuojaKnvjhvld Ball Other [employer] Other Start: 15-07-9853Fnchdwgwz encounterBenjamin BallFPG [facility] Medical ClinicStart: 01-30-2023 End: 62-22-2520yqvmbvsehvFagvoehe Ball Other [employer] Other Start: 16-17-5132Nndvrpphn encounterBenjamin BallFPG [facility] Medical ClinicStart: 01-21-2023 End: 91-43-8390qftvgrdkjtVlbnnmqy Ball Other [employer] Other Start: 08-84-2227Qdtkxawbx encounterBenjamin BallFPG [facility] ClinicStart: 01-09-2023 End: 43-97-9119lwixhzgwuhVmihtzqs Ball Other [employer] Other Start: 71-65-4101Ytjocnfln encounterBenjamin BallFPG [facility] ClinicStart: 01-06-2023 End: 03-00-6096xdfwoxxizyMcofcvkk Ball Other [employer] Other Start: 84-85-0255Pecztmyxf encounterBenjamin BallFPG [facility] ClinicStart: 01-01-2023 End: 43-36-0219siaoerdgpqLzngkzgt Ball Other [employer] Other Start: 52-71-3552Lnulrz outpatient visit 25 minutes Danilo BallFPG [facility] Medical ClinicStart: 10-01-2022 End: 20-90-2653aiwiwczppySqqmwjxa Ball Other [employer] Other Start: 40-09-3882Eqddmy outpatient visit 25 minutes Danilo BallFPG [facility] ClinicStart: 08-01-2022 End: 14-41-9137iayuqiciztYickabwe Ball Other [employer] Other Start: 63-35-0024Erxzmkgvt encounterBenjamin BallFPG [facility] Medical ClinicStart: 07-22-2022 End: 25-96-3987cwocakxcguMJLLUC H FAWWADFacility:P7Kivfh: 07-03-2022 End: 03-56-7961rsjxdjehntMbgoxgme Ball Other [employer] Other Start: 76-50-0980Dbiuqwizw encounterBenjamin BallFP[facility] ClinicStart: 07-02-2022 End: 21-18-3642yfesoqscerUoijdoxy Ball Other [employer] Other Start: 02-33-5887Qzwltvf encounter procedureBenjamin BallFPG [facility] ClinicStart: 06-24-2022 End: 06-32-3155hvfjhbxdhmECBASQ H FAWWADFacility:Q6Zfmtf: 05-31-2022 End: 21-58-9366lvaholzhhtCcawhumt Ball Other [employer] Other Start: 16-07-3254Crbbtguad encounterBenjamin BallFPG [facility] Medical ClinicStart: 05-22-2022 End: 77-52-5569ycylsyzdpiAEKWSO H FAWWADFacility:Z7Rqljc: 05-10-2022 End: 16-58-3568xyzwnqyjgdAatgudtn Ball Other [employer] Other Start: 18-31-0794Dmqknbclp encounterBenjamin BallFP[facility] ClinicStart: 05-01-2022 End: 75-81-1483ylsjlrgvasIejxwjqe Ball Other [employer] Other Start: 78-94-6789Ghbxftmzy encounterBenjamin BallFPG [facility] ClinicStart: 04-30-2022 End: 56-90-3676tfaxjyoexpKE DANILO MCE-[employer] DevelopmentWalters [employer] Other Start: 50-67-5460Eoewudbqm encounterBenjamin BallFPG [facility] ClinicStart: 04-24-2022 End: 59-79-6922ilvgnnekloLMPWSK H FAWWADFacility:E8Hhpow: 04-02-2022 End: 52-10-9305rwgwaleistKubsxmfz Ball Other [employer] Other Start: 91-14-7891Wxwktd outpatient visit 25 minutes Danilo BallFPG [facility] Medical ClinicStart: 03-25-2022 End: 93-06-1398qnxpzqkyrcSGSZGB H FAWWADFacility:S8Bsjtm: 02-21-2022 End: 07-02-0131fjzdjkqgfaQCRWUU H FAWWADFacility:E1Fllyp: 02-11-2022 End: 52-13-2879srzomncorlMvlpfNicole Ash MD Work Phone: Hematology/OncologyComment on above: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) [C90.01 (ICD-10-CM)] (Primary Dx)Start: 02-11-2022 End: 56-19-0208Njsyzcppnuqm consultation with Kristina Ash MD Work Phone: SANDUSKYStart: 02-01-2022 End: 68-74-3816hvxmhydmggJqarfNicole Ash MD Work Phone: Hematology/OncologyComment on above: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 (HCC) (Primary Dx)Start: 02-01-2022 End: 95-93-8832Jzfahuhgbpty consultation with Kristina Ash MD Work Phone: SANDUSKYStart: 01-22-2022 End: 50-47-9938zxiwdmsjmyLFTGPE H FAWWADFacility:N7Rcdrr: 01-09-2022 End: 76-42-0038gapprtdgwcXD DANILO BALLFacility:R1Bfvpd: 12-23-2021 End: 01-00-3304ftgfnrzfwuJCMUGR H FAWWADFacility:P1Xdywi: 11-22-2021 End: 94-01-6790mpaxbbttozALUMAB H FAWWADFacility:Z1Ctjih: 10-22-2021 End: 75-80-9799vmptujdaxxCTQGDS H FAWWADFacility:Z7Asleo: 10-03-2021 End: 54-38-2108qnydbzgqzgAZ DANILO BALLFacility:W5Siath: 10-03-2021 End: 53-30-7835ovbdoxhbrbTNRKAL H FAWWADFacility:O1Unuml: 86-08-8857Owjws health examinationBenemeterio Clark Other [facility] [employer] Other Start: 04-28-2017 End: 50-97-5493JafbgprutjWpvzlkz AdamowiczFacility:FTMCStart: 04-24-2017 End: 94-19-0527CwglrhqveqBrpvexs AdamowiczFacility:[facility] CENTERtart: 02-03-2017 End: 04-63-1946UzxkyfkxnrCyuutyz~[id number] UNKNOWN HoyFacility:[facility] [place] Procedures DateProcedureProcedure DetailPerforming ClinicianStart: 85-24-9688Rzohwahaxb exam chest 2 viewsGurpreet Pang MD Work Phone: Start: 80-04-1800Gkhame-up visitFollow UpGURPREET MENDOZAFStart: 13-95-2869Nt soft tissue neck w/contrast materialViveedgar Ash MD Work Phone: Start: 39-75-9057Wcu imaging for ct attenuation whole bodyAnibal Ash MD Work Phone: Start: 99-13-4244Ylre bld gluc mntr dev cleared fda spec home useCcf ProviderStart: 67-36-7415Rocmdusin for malignant neoplasm of colonBenjamin Ball Other Start: 86-71-6562Rxzucezjx for malignant neoplasm of prostateBenjamin Ball Other Depression screeningBenjamin Ball Other Depression screeningBenjamin Ball Other Plan of Treatment DateCare ActivityDetailAuthorStart: 06-19-9867Lmhxovicq B screeningUrine Albumin:Creatinine RatioMobile ClinicStart: 02-23-2025 End: 18-39-0799Qplufk-up zmwtmvgoz87/03/2025 2:00 PM EST Visit (SP) Office Hematology/Oncology [address] [place], [place] [phone] Anibal Ash MD [address] [place] [address] [place] [address] 3 month follow up with Dr Blas / lab results Hematology/OncologyComment on above:[address] up [address] Blas / lab results Start: 02-95-5638Aibgnjwxrp A1c dwmmcsdujwsScO4ILalkyvrgn ClinicStart: 02-16-2025 End: 64-62-2700Cipvlrb encounter lynzdsczy81/26/2025 2:00 PM EST Office Visit [facility] [address] [place] [address] 3 month labNortHarper [facility] Comment on above:3 month labStart: 28-10-6219RDABIEJL SCREENDIABETES SCREEN [facility]: [facility]-24-2024 End: 17-04-2845Ncjzfh-up rpgdqbgyq24/03/2025 10:40 AM EDT Visit (SP) Office Hematology/Oncology [address] [place] [address] Anibal Ash MD [address] [place] [address] 3 month follow upHematology/OncologyComment on above:3 month follow upStart: 36-87-8774Jauslnrig vaccinationFostoria City Hospitaltart: 11-19-2024 End: 61-96-4182Fcly-2-Microglobulin [Mass/volume] in Serum or PlasmaB2 MICROGLOBULIN Lab Routine 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 (HCC) 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) Expected: 11/19/2024 (Approximate), Expires: 08/19/2025[facility] Work Phone: Comment on above:Expected: 11/19/2024 (Approximate), Expires: 08/19/2025Start: 11-19-2024 End: 02-03-3651Lgudged.ionized [Moles/volume] in BloodCALCIUM, IONIZED Lab Routine 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 (HCC) 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) Expected: 11/19/2024 (Approximate), Expires: 08/19/2025 [facility]:Expected: 11/19/2024 (Approximate), Expires: 08/19/2025Start: 11-19-2024 End: 27-41-2577ZGB W Auto Differential panel - BloodCOMPLETE BLOOD COUNT AND DIFFERENTIAL Lab Routine 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 (HCC) 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) Expected: 11/19/2024 (Approximate), Expires: 08/19/2025[facility] ClinicComment on above:Expected: 11/19/2024 (Approximate), Expires: 08/19/2025Start: 11-19-2024 End: 06-00-2704Sajtsthkohuov metabolic 2000 panel - Serum or PlasmaCOMPREHENSIVE METABOLIC PANEL Lab Routine 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 (HCC) CA -cancer of parotid gland (HCC) Expected: 11/19/2024 (Approximate), Expires: 08/19/2025[facility] ClinicComment on above:Expected: 11/19/2024 (Approximate), Expires: 08/19/2025Start: 11-19-2024 End: 56-05-2432LSEQS/COTA,FREE,SERKAPPA/COTA,FREE,SER Lab Routine 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 (HCC) CA - cancer ofparotid gland (HCC) Expected: 11/19/2024 (Approximate), Expires: 02/18/2025[facility] ClinicComment on above:Expected: 11/19/2024 (Approximate), Expires: 02/18/2025Start: 11-19-2024 End: 27-48-9428Debqdlr dehydrogenase [Enzymatic activity/volume] in Serum or PlasmaLACTATE DEHYDROGENASE Lab Routine 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 (HCC) 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) Expected: 11/19/2024 (Approximate), Expires: 08/19/2025[facility] ClinicComment on above:Expected: 11/19/2024 (Approximate), Expires: 08/19/2025Start: 11-19-2024 End: 90-59-5598KYJRHHZUDG PROTEIN, SERUM (BLOOD)MONOCLONAL PROTEIN, SERUM (BLOOD) Lab Routine 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 (HCC) 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) Expected: 11/19/2024 (Approximate), Expires: 08/19/2025[facility] ClinicComment on above:Expected: 11/19/2024 (Approximate), Expires: 08/19/2025Start: 11-19-2024 End: 88-70-7650Ckrazbnsa [Mass/volume] in Serum or PlasmaPHOSPHORUS INORGANIC Lab Routine 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 (HCC) 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) Expected: 11/19/2024 (Approximate), Expires: 08/19/2025 Mobile ClinicComment on above:Expected: 11/19/2024 (Approximate), Expires: 08/19/2025Start: 11-19-2024 End: 44-73-3195PNJVLXK ELECTROPHORESIS SERUM W/INTERPPROTEIN ELECTROPHORESIS SERUM W/INTERP Lab Routine 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 (HCC) 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) Expected: 11/19/2024 (Approximate), Expires: 08/19/2025[facility] ClinicComment on above:Expected: 11/19/2024 (Approximate), Expires: 08/19/2025Start: 11-19-2024 End: 76-09-7830Ttcyy [Mass/volume] in Serum or PlasmaURIC ACID Lab Routine 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 (HCC) CA - cancer of parotid gl and (HCC) Expected: 11/19/2024 (Approximate), Expires: 08/19/2025[facility] ClinicComment on above:Expected: 11/19/2024 (Approximate), Expires: 08/19/2025 Start: 11-19-2024 End: 11-35-8961pwswkstkeg18/29/2025 1:45 PM EDT Results Only [place] [facility] [address] [facility] [place] [address] Zceand [facility] LaboratoryStart: 11-17-2024 End: 94-61-6144Dqximxf encounter /27/2025 2:30 PM EDT Office Visit [facility] [address] [place] [address] labsNortHarper University Hospital LaboratoryComment on above:labsStart: 10-14-2024 End: 67-35-1033Zsyiqce encounter sljyungjw41/24/2025 4:00 PM EDT Procedure Visit [facility] [address] [facility] [address] [place] [phone] Jabier Aldridge, JAGDISH [address] [facility] [address] [place] [address] Diabetes mellitus due to underlying condition with diabetic polyneuropathy, 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) (Primary Dx); Pain due to onychomycosis of toenails of both feet; Acquired deformity of right toe; Acquired deformity of left toeNOMS CI PODIATRYComment on above:Diabetes mellitus due to underlying condition with diabetic polyneuropathy, unspecified whether care home insulin use (HCC) (Primary Dx); Pain due to onychomycosis of toenails of both feet; Acquired deformity of right toe; Acquired deformity of left toeStart: 10-12-2024 End: 20-37-9440Mbvbpfs encounter gomzjtrfe01/22/2025 2:30 PM EDT Office Visit Palliative Medicine [address] [place] [address] [place] [address] Angelique Donis, NETWORK TECHNOLOGY INSTRUCTOR.CHIPS SCREEN TENDER [address] [place] [address] 7 WEEK FOLLOW UPPalliative MedicineComment on above:7 WEEK FOLLOW UPStart: 10-12-2024 End: 69-02-9749Uetkjio encounter ogncvebhe53/22/2025 10:45 AM EDT Office Visit Otolaryngology [address] [address] Gurpreet Pang MD [address] [address] POST OPOtolaryngologyComment on above:POST OPStart: 09-17-2024 End: 68-12-2213Srihobwfm to same day surgery cojiln9009/17/2024 7:30 AM EDT - 09/17/2024 11:25 AM EDT Surgery Admitting [address] [place] [address] Gurpreet Pang MD [address] [address] PAROTIDECTOMYAdmittingComment on above:PAROTIDECTOMYStart: 09-17-2024 End: 69-67-4945Idb prtd kelsey/prtd glnd lat dsj&prsrv facial nrPAROTIDECTOMY Mucoepidermoid carcinoma (HCC) 09/17/2024 7:30 AM EDTMC MAIN PAVILIONStart: 36-07-2567Kpixyfdclq hospital visit by twyychlqq32/27/2025 7:30 AM EDT Hospital Encounter Admitting [address] [place] [address] Gurpreet Pang MD [address] [place] [address] 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]AdmittingComment on above: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]Start: 09-07-2024 End: 17-63-9380Wkoxth-up doedlhapx71/17/2025 2:00 PM EDT Visit (SP) Office Hematology/Oncology [address] [place], [place] [phone] Anibal Ash MD [address] [place] [address] 13 week follow upHematology/OncologyComment on above:13 week follow upStart: 09-01-2024 End: 50-77-4547eooerwtmxv78/11/2025 2:15 PM EDT Results Only [place] [facility] [address] [place] [address] Aeabzu [facility] LaboratoryStart: 09-01-2024 End: 27-03-2851Ubxailn encounter /11/2025 1:45 PM EDT Appointment Radiology [address] [place] [address] GpplzbgllGrbqg: 09-01-2024 End: 32-22-2068Tydpht-up mgknyjtlj99/11/2025 11:40 AM EDT Visit (SP) Office Hematology/Oncology [address] [place] [address] Anibal Ash MD [address] [place] [address] 13 week follow upHematology/OncologyComment on above:13 week follow upStart: 08-31-2024 End: 58-88-2607Yammf metabolic 2000 panel - Serum or PlasmaBASIC METABOLIC PANEL Lab Routine Mucoepidermoid carcinoma (HCC) Expected: 08/31/2024, Expires: leveland ClinicComment on above:Expected: 08/31/2024, Expires: 11/30/2024 Start: 08-31-2024 End: 47-57-7393CCV panel - Blood by Automated countCOMPLETE BLOOD COUNT Lab Routine Mucoepidermoid carcinoma (HCC) Expected: 08/31/2024, Expires: 11/30/2024 [facility]Comment on [facility]:Expected: 08/31/2024, Expires: 11/30/2024Start: 08-25-2024 End: 65-28-9159Qaey-2-Microglobulin [Mass/volume] in Serum or PlasmaB2 MICROGLOBULIN Lab Routine 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 (HCC) Expected: 08/25/2024 (Approximate), Expires: 06/02/2025[facility] Work Phone: Comment on above:Expected: 08/25/2024 (Approximate), Expires: 06/02/2025Start: 08-25-2024 End: 37-69-5490Rdorsya.ionized [Moles/volume] in BloodCALCIUM, IONIZED Lab Routine 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 (HCC) Expected: 08/26/19 25 (Approximate), Expires: 06/02/2025[facility] ClinicComment on above:Expected: 08/25/2024 (Approximate), Expires: 06/02/2025Start: 08-25-2024 End: 11-36-7822EWJ W Auto Differential panel - BloodCOMPLETE BLOOD COUNT AND DIFFERENTIAL Lab Routine 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 (HCC) Expected: 08/25/2024 (Approximate), Expires: 06/02/2025[facility] ClinicComment on above:Expected: 08/25/2024 (Approximate), Expires: 06/02/2025Start: 08-25-2024 End: 41-90-7218Fhirqmtlsitzr metabolic 2000 panel - Serum or PlasmaCOMPREHENSIVE METABOLIC PANEL Lab Routine 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 (HCC) Expected: 08/25/2024 (Approximate), Expires: 06/02/2025[facility] Comment on above:Expected: 08/25/2024 (Approximate), Expires: 06/02/2025Start: 08-25-2024 End: 15-00-2044MAOIX/COTA,FREE,SERKAPPA/COTA,FREE,SER Lab Routine 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 (HCC) Expected: 08/25/2024 (Approximate), Expires: 11/24/2024[facility] ClinicComment on above:Expected: 08/25/2024 (Approximate), Expires: 11/24/2024Start: 08-25-2024 End: 83-58-1056Atetdym dehydrogenase [Enzymatic activity/volume] in Serum or PlasmaLACTATE DEHYDROGENASE Lab Routine 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 (HCC) Expected: 08/25/2024 (Approximate), Expires: 06/02/2025[facility] ClinicComment on above:Expected: 08/25/2024 (Approximate), Expires: 06/02/2025 Start: 08-25-2024 End: 18-33-2203LEBQLGXATK PROTEIN, SERUM (BLOOD)MONOCLONAL PROTEIN, SERUM (BLOOD) Lab Routine 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 (HCC) E xpected: 08/25/2024 (Approximate), Expires: 06/02/2025[facility] ClinicComment on above:Expected: 08/25/2024 (Approximate), Expires: 06/02/2025Start: 08-25-2024 End: 57-59-1999Xnbzptvqx [Mass/volume] in Serum or PlasmaPHOSPHORUS INORGANIC Lab Routine 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 (HCC) Expected: 06/2024 (Approximate), Expires: 06/02/2025[facility] ClinicComment on above: Expected: 08/25/2024 (Approximate), Expires: 06/02/2025Start: 08-25-2024 End: 38-49-7391MTTNVTC ELECTROPHORESIS SERUM W/INTERPPROTEIN ELECTROPHORESIS SERUM W/INTERP Lab Routine 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 (HCC) Expected: 08/25/2024 (Approximate), Expires: 06/02/2025[facility] ClinicComment on above:Expected: 08/25/2024 (Approximate), Expires: 06/02/2025Start: 08-25-2024 End: 04-14-4067Kjsfe [Mass/volume] in Serum or PlasmaURIC ACID Lab Routine 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 (HCC) Expected: 08/25/2024 (Emy roximate), Expires: 06/02/2025[facility] ClinicComment on above:Expected: 08/25/2024 (Approximate), Expires: 06/02/2025Start: 08-25-2024 End: 50-11-7509Vidprmp encounter ikcijogep01/04/2025 11:00 AM EDT Office Visit [facility] [address] [place] [address] 12 week labsNortHarper [facility] Hospital [facility] Comment on above:12 week labsStart: 08-24-2024 End: 24-24-4214Lmtfona encounter procedureNortHarper University Hospital LaboratoryComment on above:12 week labsPall med consultStart: 08-19-2024 End: 83-67-4267lbvbikyhfi21/29/2025 4:00 PM EDT Visit (SP) Office Hematology/Oncology [address] [facility] [place], [place] [phone] Anibal Ash MD [address] [facility] [facility] [place] [address] PT SEES JUAN TODAY BEFORE THIS APPTHematology/Oncology Comment on above:PT SEES JUAN TODAY BEFORE THIS APPTStart: 08-19-2024 End: 55-66-3859Gbdjuwm encounter procedureNoHighland-Clarksburg Hospital LaboratoryComment on above:12 week labsPT SEES WAN TODAY AFTER RAJANStart: 08-13-2024 End: 71-43-3720Pywftsd encounter nyeacdepu61/23/2025 2:00 PM EDT Office Visit Otolaryngology [address] [address] Gurpreet Pang MD [address] [place] [address] follow upOtolaryngologyComment on above:follow upStart: 02-40-7929Xsldr-19 Vaccine (8 - Pfizer risk )Covid-19 Vaccine (8 - Pfizer risk )[facility]: 08-05-2024 End: 48-26-1387Xnyscgz encounter /15/2025 2:30 PM EDT Procedure Visit [facility] [address] [facility] [address] [place] [address] Jabier Aldridge DPNicole [address] [facility] [address] [place] [address] Diabetes mellitus due to underlying condition with diabetic polyneuropathy, 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) (Primary Dx); Pain due to onychomycosis of toenails of both feet; Acquired deformity of right toe; Acquired deformity of left toeNOMS CI PODIATRYComment on above:Diabetes mellitus due to underlying condition with diabetic polyneuropathy, unspecified whether care home insulin use (CMS/HCC) (Primary Dx); Pain due to onychomycosis of toenails of both feet; Acquired deformity of right toe; Acquired deformity of left toeStart: 74-50-0426TWJGEDVQ SCREENDIABETES SCREEN [facility]: 07-21-2024 End: 82-19-6509Sljylpamv to same day surgery piwvij4007/21/2024 10:00 AM EDT - 07/21/2024 11:00 AM EDT Surgery Angio [address] [place], [place] [address]StMartha Gandara MD, MD [address] [place] [address] BIOPSY OR EXCISION LYMPH NODES(S) NEEDLE SUPERFICIALAngio Comment on above:BIOPSY OR EXCISION LYMPH NODES(S) NEEDLE SUPERFICIALStart: 07-21-2024 End: 59-34-2194Mv/exc lymph node needle superficialBIOPSY OR EXCISION LYMPH NODES(S) NEEDLE SUPERFICIAL Parotid mass 07/21/2024 10:00 AM EDTMC ANGIO HB6 Start: 96-66-7117Jyafhdbnot hospital visit by rfedicyuu27/30/2025 10:00 AM EDT Hospital Encounter Angio [address] [place] [address] Martha Gandara MD, [address] [place], [place] [address] Parotid mass [K11.8]AngioComment on above:Parotid mass [K11.8]Start: 07-12-2024 End: 48-43-3358VHJ panel - Blood by Automated countCOMPLETE BLOOD COUNT Lab Routine Parotid neoplasm Expected: 07/12/2024, Expires: 10/11/2024[facility] Work Phone: Comment on above:Expected: 07/12/2024, Expires: 10/11/2024Start: 07-12-2024 End: 43-88-1962JC panel - Platelet poor plasma by Coagulation assayPROTHROMBIN TIME Lab Routine Parotid neoplasm Expected: 07/12/2024, Expires: 10/11/2024 [facility]Comment on above:Expected: 07/12/2024, Expires: 10/11/2024Start: 07-08-2024 End: 02-54-1717Stqjxce encounter qctequhcx36/17/2025 2:15 PM EDT Office Visit Otolaryngology [address] [address] Gurpreet Pang MD [address] [place] [address] Parotid MassOtolaryngologyComment on above:Parotid MassStart: 05-28-2024 End: 48-78-5745Dvfifak encounter vabpzostb37/07/2025 2:15 PM EST Appointment Radiology Pet CT [address] [facility] [place] [address] Ct Neck with contrastRadiology Pet CTComment on above:Ct Neck with contrastStart: 05-20-2024 End: 53-69-9882Wlrxwlo encounter procedureNOMS CI PODIATRYComment on above: Diabetes mellitus due to underlying condition with diabetic polyneuropathy, unspecified whether care home insulin use ([facility]/HCC) (Primary Dx); Pain due to onychomycosis of toenails of both feet; Acquired deformity of right toe; Acquired deformity of left toeStart: 05-17-2024 End: 56-89-7512Qozumy-up uonbngite06/24/2025 2:40 PM EST Visit (SP) Office Hematology/Oncology [address] [place] [address] [place], [place] [phone] Anibal Ash MD [address] [facility] [place] [address] 3 month follow upHematology/OncologyComment on above:3 month follow upStart: 05-12-2024 End: 60-50-5713Spsw-2-Microglobulin [Mass/volume] in Serum or PlasmaB2 MICROGLOBULIN Lab Routine Multiple myeloma not having achieved remission (HCC) Expected: 05/12/2024 (Approximate), Expires: 08/11/2024[facility] Work Phone: Comment on above:Expected: 05/12/2024 (Approximate), Expires: 08/11/2024Start: 05-12-2024 End: 31-74-6377Spfouyi.ionized [Moles/volume] in BloodCALCIUM, IONIZED Lab Routine Multiple myeloma not having achieved remission (HCC) Expected: 05/12/19 25 (Approximate), Expires: 08/11/2024[facility] ClinicComment on above:Expected: 05/12/2024 (Approximate), Expires: 08/11/2024Start: 05-12-2024 End: 71-83-4097JHH W Auto Differential panel - BloodCOMPLETE BLOOD COUNT AND DIFFERENTIAL Lab Routine Multiple myeloma not having achieved remission (HCC) Expected: 05/12/2024 (Approximate), Expires: 08/11/2024[facility] ClinicComment on above:Expected: 05/12/2024 (Approximate), Expires: 08/11/2024Start: 05-12-2024 End: 42-24-1190Dvlcotorxyeel metabolic 2000 panel - Serum or PlasmaCOMPREHENSIVE METABOLIC PANEL Lab Routine Multiple myeloma not having achieved remission (HCC) Expected: 05/12/2024 (Approximate), Expires: 08/11/2024[facility] Comment on above:Expected: 05/12/2024 (Approximate), Expires: 08/11/2024Start: 05-12-2024 End: 93-20-1512Ikhvexo dehydrogenase [Enzymatic activity/volume] in Serum or PlasmaLACTATE DEHYDROGENASE Lab Routine Multiple myeloma not having achieved remission (HCC) Expected: 05/12/2024 (Approximate), Expires: 08/11/2024[facility] ClinicComment on above:Expected: 05/12/2024 (Approximate), Expires: 08/11/2024 Start: 05-12-2024 End: 09-66-8495NLARHYDIRM PROTEIN, SERUM (BLOOD)MONOCLONAL PROTEIN, SERUM (BLOOD) Lab Routine Multiple myeloma not having achieved remission (HCC) E xpected: 05/12/2024 (Approximate), Expires: 08/11/2024[facility] ClinicComment on above:Expected: 05/12/2024 (Approximate), Expires: 08/11/2024Start: 05-12-2024 End: 38-25-0239Jbanlyjqv [Mass/volume] in Serum or PlasmaPHOSPHORUS INORGANIC Lab Routine Multiple myeloma not having achieved remission (HCC) Expected: 04/24 (Approximate), Expires: 08/11/2024[facility] ClinicComment on above: Expected: 05/12/2024 (Approximate), Expires: 08/11/2024Start: 05-12-2024 End: 92-83-2895VFLDNSI ELECTROPHORESIS SERUM W/INTERPPROTEIN ELECTROPHORESIS SERUM W/INTERP Lab Routine Multiple myeloma not having achieved remission (HCC) Expected: 05/12/2024 (Approximate), Expires: 08/11/2024[facility] ClinicComment on above:Expected: 05/12/2024 (Approximate), Expires: 08/11/2024Start: 05-12-2024 End: 67-51-8905Llicr [Mass/volume] in Serum or PlasmaURIC ACID Lab Routine Multiple myeloma not having achieved remission (HCC) Expected: 05/12/2024 (Emy roximate), Expires: 08/11/2024[facility] ClinicComment on above:Expected: 05/12/2024 (Approximate), Expires: 08/11/2024Start: 05-10-2024 End: 97-55-0051Ofucgln encounter nioqkauue26/17/2025 2:30 PM EST Office Visit [facility] [address] [place] [address] 3 month labNortHarper University Hospital Laboratory Comment on above:3 month labStart: 03-71-1217Ruigxwz Directive DiscussionAdvance Directive DiscussionFostoria City Hospitaltart: 01-01-2025Medicare Advantage Annual Well[facility] VisitMed[facility] Annual Wellness VisitFostoria City Hospitaltart: 03-11-2024 End: 41-29-3410Iabucin encounter wxokayxhh49/19/2024 3:00 PM EST Procedure Visit [facility] [address] [facility] [address] [place] [phone] Jabier Aldridge DPM [address] [facility] [address] [place] [address] Diabetes mellitus due to underlying condition with diabetic polyneuropathy, unspecified whether care home insulin use (CMS/HCC) (Primary Dx); Pain due to onychomycosis of toenails of both feet; Acquired deformity of right toe; Acquired deformity of left toeNOMS CI PODIATRYComment on above:Diabetes mellitus due to underlying condition with diabetic polyneuropathy, unspecified whether care home insulin use (CMS/HCC) (Primary Dx); Pain due to onychomycosis of toenails of both feet; Acquired deformity of right toe; Acquired deformity of left toeStart: 02-10-2024 End: 77-73-0145Izbz-2-Microglobulin [Mass/volume] in Serum or PlasmaB2 MICROGLOBULIN Lab Routine Multiple myeloma not having achieved remission (HCC) Stage 3a chronic kidney disease (HCC) Thrombocytopenia (HCC) Expected: 02/10/2024, Expires: 11/09/2024[facility] Work Phone: Comment on above:Expected: 02/10/2024, Expires: 11/09/2024Start: 02-10-2024 End: 26-53-4699Bzquybh.ionized [Moles/volume] in BloodCALCIUM, IONIZED Lab Routine Multiple myeloma not having achieved remission (HCC) Stage 3a chronic k idney disease (HCC) Thrombocytopenia (HCC) Expected: 02/10/2024, Expires: 11/09/2024[facility] ClinicComment on above:Expected: 02/10/2024, Expires: 11/09/2024Start: 02-10-2024 End: 62-31-3494SWP W Auto Differential panel - BloodCOMPLETE BLOOD COUNT AND DIFFERENTIAL Lab Routine Multiple myeloma not having achieved remission (HCC) Stage 3a chronic kidney disease (HCC) Thrombocytopenia (HCC) Expected: 02/10/2024, Expires: 11/09/2024[facility] ClinicComment on above:Expected: 02/10/2024, Expires: 11/09/2024Start: 02-10-2024 End: 58-06-2944Dhwmbzyshpvpe metabolic 2000 panel - Serum or PlasmaCOMPREHENSIVE METABOLIC PANEL Lab Routine Multiple myeloma not having achieved remission (HCC) Stage 3a chronic kidney disease (HCC) Thrombocytopenia (HCC) Expected: 02/10/2024, Expires: 11/09/2024[facility] ClinicComment on above:Expected: 02/10/2024, Expires: 11/09/2024Start: 02-10-2024 End: 48-19-5294HSCZI/COTA,FREE,SERKAPPA/COTA,FREE,SER Lab Routine Multiple myeloma not having achieved remission (HCC) Stage 3a chronic kidney disease (HCC) Thrombocytopenia (HCC) Expected: 02/10/2024, Expires: 05/11/2024[facility] ClinicComment on above:Expected: 02/10/2024, Expires: 05/11/2024Start: 02-10-2024 End: 58-26-5181Srllvyu dehydrogenase [Enzymatic activity/volume] in Serum or PlasmaLACTATE DEHYDROGENASE Lab Routine Multiple myeloma not having achieved remission (HCC) Stage 3a chronic kidney disease (HCC) Thrombocytopenia (HCC) Expected: 02/10/2024, Expires: 11/09/2024[facility] ClinicComment on above: Expected: 02/10/2024, Expires: 11/09/2024Start: 02-10-2024 End: 94-25-4111SBMEATDNWJ PROTEIN, SERUM (BLOOD)MONOCLONAL PROTEIN, SERUM (BLOOD) Lab Routine Multiple myeloma not having achieved remission (HCC) Stage 3a chronic kidney disease (HCC) Thrombocytopenia (HCC) Expected: 02/10/2024, Expires: 11/09/2024[facility] ClinicComment on above:Expected: 02/10/2024, Expires: 11/09/2024Start: 02-10-2024 End: 13-94-7366Xbgmwlrbj [Mass/volume] in Serum or PlasmaPHOSPHORUS INORGANIC Lab Routine Multiple myeloma not having achieved remission (HCC) Stage 3a chron ic kidney disease (HCC) Thrombocytopenia (HCC) Expected: 02/10/2024, Expires: 11/09/2024[facility] ClinicComment on above:Expected: 02/10/2024, Expires: 11/09/2024Start: 02-10-2024 End: 84-04-2554VCKKXYS ELECTROPHORESIS SERUM W/INTERPPROTEIN ELECTROPHORESIS SERUM W/INTERP Lab Routine Multiple myeloma not having achieved remission (HCC) Stage 3a chronic kidney disease (HCC) Thrombocytopenia (HCC) Expected: 02/10/2024, Expires: 11/09/2024[facility] ClinicComment on above:Expected: 02/10/2024, Expires: 11/09/2024Start: 02-10-2024 End: 08-78-5092Ojwwz [Mass/volume] in Serum or PlasmaURIC ACID Lab Routine Multiple myeloma not having achieved remission (HCC) Stage 3a chronic kidney d isease (HCC) Thrombocytopenia (HCC) Expected: 02/10/2024, Expires: 11/09/2024 [facility]Comment [facility]:Expected: 02/10/2024, Expires: 11/09/2024Start: 02-09-2024 End: [id number]-up ppwijtfnc50/18/2024 1:45 PM EST Visit (SP) Office Hematology/Oncology [address] [place] [address] [address] [place], [place] [phone] Anibal Ash MD [address] [place] [address] 3 month follow up / lab 1 week priorHematology/Oncology Comment on above:3 month follow up / lab 1 week priorStart: 02-02-2024 End: 52-88-5256Aerbedu encounter sklugqsbq19/11/2024 1:45 PM EST Office Visit [facility] [address] [place] [address] 3 [facility] labNortHar[facility] Comment on above:3 month labStart: 01-01-2024 End: 54-50-9764Dmlwuvp encounter dvgsgopcc67/10/2024 3:30 PM EDT Procedure Visit [facility] [address] [facility] [address] [place] [phone] Jabier Aldridge DPM [address] [facility] [address] [place] [address] Diabetes mellitus due to underlying condition with diabetic polyneuropathy, unspecified whether care home insulin use (CMS/HCC) (Primary Dx); Pain due to onychomycosis of toenails of both feet; Acquired deformity of right toe; Acquired deformity of left toeNOMS CI PODIATRYComment on above:Diabetes mellitus due to underlying condition with diabetic polyneuropathy, unspecified whether care home insulin use (CMS/HCC) (Primary Dx); Pain due to onychomycosis of toenails of both feet; Acquired deformity of right toe; Acquired deformity of left toeStart: 79-10-5395Ijxag-19 Vaccine ()Covid-19 Vaccine ( season)[facility] Covid-19 Vaccine ()Covid-19 Vaccine () [facility]: 69-38-6127Alldskwwk vaccinationInfluenza Vaccine (#1) [facility]: 11-10-2023 End: 60-54-9365Iwvqyy-up xqmxxwaku64/19/2024 1:30 PM EDT Visit (SP) Office Hematology/Oncology [address] [place], [place] [phone] Anibal Ash MD [address] [facility] [place] [address] 3 month follow upHematology/OncologyComment on above:3 month follow upStart: 11-03-2023 End: 66-46-7303Jxajuwx encounter eeltrrpts00/12/2024 1:30 PM EDT Office Visit [facility] [address] [facility] [place] [address] 3 month labNortHar[facility] Comment on above:3 month labStart: 08-29-2023 End: 15-04-8195Wiagurc encounter jwiwoibbw11/07/2024 1:00 PM EDT Appointment Radiology Pet CT [address] [address] [place] [address] Pet scan / Nurse triage to call resultsRadiology Pet CTComment on above:Pet scan / Nurse triage to call resultsStart: 15-69-8629Ozdaeka [facility] Work Phone: Start: 08-11-2023 End: 83-08-9233Xvob-2-Microglobulin [Mass/volume] in Serum or PlasmaB2 MICROGLOBULIN Lab Routine Multiple myeloma not having achieved remission (HCC) Expected: 08/11/2023, Expires: 08/10/2024[facility] ClinicComment on above: Expected: 08/11/2023, Expires: 08/10/2024Start: 08-11-2023 End: 93-67-1452Kozvkcz.ionized [Moles/volume] in BloodCALCIUM, IONIZED Lab Routine Multiple myeloma not having achieved remission (HCC) Expected: 08/11/19 24, Expires: 08/10/2024[facility] ClinicComment on above:Expected: 08/11/2023, Expires: 08/10/2024Start: 08-11-2023 End: 07-67-2293BOL W Auto Differential panel - BloodCOMPLETE BLOOD COUNT AND DIFFERENTIAL Lab Routine Multiple myeloma not having achieved remission (HCC) Expected: 08/11/2023, Expires: 08/10/2024[facility] ClinicComment on above: Expected: 08/11/2023, Expires: 08/10/2024Start: 08-11-2023 End: 71-94-8094Yeqgmfteatnrt metabolic 2000 panel - Serum or PlasmaCOMPREHENSIVE METABOLIC PANEL Lab Routine Multiple myeloma not having achieved remission (HCC) Expected: 08/11/2023, Expires: 08/10/2024[facility] ClinicComment on above: Expected: 08/11/2023, Expires: 08/10/2024Start: 08-11-2023 End: 57-55-1333NYQMH/COTA,FREE,SERKAPPA/COTA,FREE,SER Lab Routine Multiple myeloma not having achieved remission (HCC) Expected: 08/11/2023, Expires: 11/10/2023[facility] ClinicComment on above:Expected: 08/11/2023, Expires: 11/10/2023Start: 08-11-2023 End: 50-04-9311Rwicvbh dehydrogenase [Enzymatic activity/volume] in Serum or PlasmaLACTATE DEHYDROGENASE Lab Routine Multiple myeloma not having achieved remission (HCC) Expected: 08/11/2023, Expires: 08/10/2024[facility] ClinicComment on above:Expected: 08/11/2023, Expires: 08/10/2024Start: 08-11-2023 End: 35-49-1333LNTTISUYZX PROTEIN, SERUM (BLOOD)MONOCLONAL PROTEIN, SERUM (BLOOD) Lab Routine Multiple myeloma not having achieved remission (HCC) E xpected: 08/11/2023, Expires: 08/10/2024[facility] ClinicComment on above: Expected: 08/11/2023, Expires: 08/10/2024Start: 08-11-2023 End: 71-63-5631Mregwtxob [Mass/volume] in Serum or PlasmaPHOSPHORUS INORGANIC Lab Routine Multiple myeloma not having achieved remission (HCC) Expected: 07/23, Expires: 08/10/2024[facility] ClinicComment on above:Expected: 08/11/2023, Expires: 08/10/2024Start: 08-11-2023 End: 23-83-4143ESEHTSL ELECTROPHORESIS SERUM W/INTERPPROTEIN ELECTROPHORESIS SERUM W/INTERP Lab Routine Multiple myeloma not having achieved remission (HCC) Expected: 08/11/2023, Expires: 08/10/2024[facility] ClinicComment on above: Expected: 08/11/2023, Expires: 08/10/2024Start: 08-11-2023 End: 94-20-1379Uyeuh [Mass/volume] in Serum or PlasmaURIC ACID Lab Routine Multiple myeloma not having achieved remission (HCC) Expected: 08/11/2023, Exp ires: 08/10/2024[facility] ClinicComment on above:Expected: 08/11/2023, Expires: 08/10/2024Start: 04-84-6488Tkvdjopomm A1c nqgpycfqrrwDqE2EFpztvogxw ClinicStart: 50-42-3707Zvlzbum Directive DiscussionAdvance Directive DiscussionFostoria City Hospitaltart: 37-48-6158IIFGQ-19 Vaccine ()COVID-19 Vaccine ()[facility] Cancer CenterStart: 83-58-6887Aeljb-19 Vaccine ()Covid-19 Vaccine ()[facility]: 08-11-2022 End: 00-84-8467Tspm-2-Microglobulin [Mass/volume] in Serum or PlasmaB2 MICROGLOBULIN B Lab Routine 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) [C90.01 (ICD-10-CM)] Expected: 08/11/2022 (Approximate), Expires: 02/11/2023[facility] Work Phone: Comment on above:Expected: 08/11/2022 (Approximate), Expires: 02/11/2023Start: 08-11-2022 End: 23-79-7893Slvsoot.ionized [Moles/volume] in BloodCALCIUM IONIZED BLOOD Lab Routine 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) [C90.01 (ICD-10-CM)] Expected: 08/11/2022 (Approximate), Expires: 02/11/2023[facility] Work Phone: Comment on above:Expected: 08/11/2022 (Approximate), Expires: 02/11/2023Start: 08-11-2022 End: 36-62-9082CMU W Auto Differential panel - BloodCBC + DIFF Lab Routine 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) [C90.01 (ICD-10-CM)] Expected: 08/11/2022 (Approximate), Expires: 02/11/2023[facility] Work Phone: Comment on above:Expected: 08/11/2022 (Approximate), Expires: 02/11/2023Start: 08-11-2022 End: 38-74-1406Dxyrnjbqjhnpb metabolic 2000 panel - Serum or PlasmaCOMP METABOLIC PANEL Lab Routine 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) [C90.01 (ICD-10-CM)] Expected:08/11/2022 (Approximate), Expires: 02/11/2023[facility] Work Phone: Comment on above:Expected: 08/11/2022 (Approximate), Expires: 02/11/2023Start: 08-11-2022 End: 44-44-5467ERIBY/COTA,FREE,SERKAPPA/COTA,FREE,SER Lab Routine 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) [C90.01 (ICD-10-CM)] Expected: 08/11/2022 (Approximate), Expires: 10/11/2022[facility] Work Phone: Comment on above:Expected: 08/11/2022 (Approximate), Expires: 10/11/2022Start: 08-11-2022 End: 43-18-9724Mgkuqql dehydrogenase [Enzymatic activity/volume] in Serum or PlasmaLD LACTATE DEHYDRO Lab Routine 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) [C90.01 (ICD-10-CM)] Expected: 08/11/2022 (Approximate), Expires: 02/11/2023[facility] Work Phone: Comment on above:Expected: 08/11/2022 (Approximate), Expires: 02/11/2023Start: 08-11-2022 End: 02-58-7224YSIYBYDAIJ PROTEIN, SERUM (BLOOD)MONOCLONAL PROTEIN, SERUM (BLOOD) Lab Routine 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) [C90.01 (ICD-10-CM)] Expected: 08/11/2022 (Approximate), Expires: 02/11/2023[facility] Work Phone: Comment on above:Expected: 08/11/2022 (Approximate), Expires: 02/11/2023Start: 08-11-2022 End: 50-40-0648Aldjvgqyx [Mass/volume] in Serum or PlasmaPHOSPHORUS INORGANIC Lab Routine 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) [C90.01 (ICD-10-CM)] Expected: 08/11/2022 (Approximate), Expires: 02/11/2023[facility] Work Phone: Comment on above:Expected: 08/11/2022 (Approximate), Expires: 02/11/2023Start: 08-11-2022 End: 53-66-9808MEDTAEB ELECTROPHORESIS SERUM W/INTERPPROTEIN ELECTROPHORESIS SERUM W/INTERP Lab Routine 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) [C90.01 (ICD-10- CM)] Expected: 08/11/2022 (Approximate), Expires: 02/11/2023[facility] Work Phone: Comment on above:Expected: 08/11/2022 (Approximate), Expires: 02/11/2023Start: 08-11-2022 End: 22-62-4871Iggdy [Mass/volume] in Serum or PlasmaURIC ACID BLOOD Lab Routine 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) [C90.01 (ICD-10-CM)] Expected: 08/11/2022 (Approximate), Expires: 02/11/2023[facility] Work Phone: Comment on above:Expected: 08/11/2022 (Approximate), Expires: 02/11/2023Start: 84-19-0545OSVYOVG DIRECTIVE DISCUSSIONADVANCE DIRECTIVE DISCUSSIONClepromedica toledo hospital ClinicStart: 96-80-6988FJLZMWQIJX ASSESSMENT DEPRESSION ASSESSMENTFostoria City Hospitaltart: 95-26-7560RIP Vaccine (1 - 1-dose 75+ series)RSV Vaccine (1 - 1-dose 75+ series)[facility]: 01-24-2016 PNEUMOCOCCAL: 65+ (2 - PCV)PNEUMOCOCCAL: 65+ (2 - PCV)[facility]: 12-21-0183ZQvC/Tdap/Td Vaccines (1 - Tdap)DTaP/Tdap/Td Vaccines (1 - Tdap) [facility]: 39-82-2761Gzbyj microalbumin profile DTaP,Tdap,Td Vaccine (1 - Tdap)[facility]: 77-61-8460UXB Vaccine (1 - 1-dose 60+ series)RSV Vaccine (1 - 1-dose 60+ series)[facility]: 61-64-2033Dbkvsssp Vaccine (1 of 2)Shingrix Vaccine (1 of 2)[facility] Start: 27-02-2393JEJMELSO VACCINE (1 of 2)SHINGRIX VACCINE (1 of 2)[facility]: 17-45-6114Pmxxf microalbumin profileDTAP,TDAP,TD (1 - Tdap) [facility]: 76-06-7332Culclz Vaccines (1 of 2)Zoster Vaccines (1 of 2)[facility]: 42-45-7655Yqmrnur ScreeningAnxiety ScreeningFostoria City Hospitaltart: 78-46-5383Vbeqyzldc B surface antibody levelLDL CholesterolFostoria City Hospitaltart: 37-73-6134Amrgupda foot examinationDiabetic Foot ExamFostoria City Hospitaltart: 86-59-2907Ktolodka screeningDilated Retinal Exam [facility] Hospitalrt: 80-22-2790Hqjggmypz B screeningUrine Albumin:Creatinine RatioFostoria City Hospitaltart: 62-13-9518Jzvnt panelLipid PanelUnOhioHealth Grove City Methodist Hospital: 1941Medicare Annual Wellness VisitMedicare Annual Wellness Visit (AWV)[facility], Cancer CenterComprehensive metabolic 2000 panel - Serum or PlasmaUniversity Hospitals Geneva Medical CenterCT Guidance for radiation treatment of Unspecified body regionCT SIM PLANNING RADIATION ONCOLOGY Radiology Routine Head and neck cancer (HCC) [facility]: [facility] Work Phone: Comment on above:Ordered: 08/19/2024 End: 71-81-2600BM Neck W contrast IVCT NECK SOFT TISSUE W IVCON Radiology Routine Mass of ear auricle, left Multiple myeloma not havingachieved remission (HCC) Thrombocytopenia (HCC) Chronic anticoagulation 1 Occurrences starting 05/17/2024 until 06/16/2025[facility] Work Phone: Comment on above:1 Occurrences starting 05/17/2024 until 06/16/2025 End: 47-07-7499LHG COMPLETEECG COMPLETE ECG Routine 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/31/2024 until 08/31/2025[facility]Comment [facility]:1 Occurrences starting 08/31/2024 until 08/31/2025Exc prtd kelsey/prtd glnd lat dsj&prsrv facial nrPAROTIDECTOMY Mucoepidermoid carcinoma (HCC) MAIN PAVILIONGuidance for biopsy of Neck or Chest Soft tissueIMAGING GUIDED BIOPSY SALIVARY GLAND Radiology Routine Parotid mass Ordered: 07/08/2024[facility] Work Phone: Comment on above:Ordered: 07/08/2024Microalbumin [Mass/volume] in UrineUniversity Hospitals Geneva Medical CenterPatient EducationManaging pain after surgeryOhiohealth Dublin Methodist Hospital Work Phone: Patient referralParkview Health [facility] Work Phone: End: 22-85-1151QDW+CT Whole body Bone W 18F-NaF IVNM PET/CT WHOLE BODY SUBSEQUENT Radiology Routine Multiple myeloma not having achieved remission (HC C) 1 Occurrences starting 08/11/[address] [place] [address] Work Phone: Comment on above:1 Occurrences starting 08/11/2023 until 09/09/2024XR Chest 2 ViewsUniversity Hospitals Geneva Medical Center End: 92-69-3784HF Chest PA and LateralXR CHEST 2V FRONTAL/LAT Radiology Routine 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/31/2024 until 09/30/2025[facility] Work Phone: Comment on above:1 Occurrences starting 08/31/2024 until 09/30/2025XR Lumbar spine 2 or 3 [facility] 3 [facility] Immunizations Immunization DateImmunizationNotesCare VdjwsnczSmdgzyzg47-81-1901wayjehagu, high dose seasonal, preservative-freeBenjamin Ball DO Work Phone: [facility]11-19-2024COVID-19 vaccine, age 12+ yr (PFIZER-BIONTECH COMIRNATY)Anibal Ash MD Work Phone: [facility]onSdzihn15-29-2833ddqaygovy, high dose seasonal, preservative-freeBenjamin Ball Other [employer] Other 108342-44-7656trzvvepdh virus vaccine, unspecified formulationUniversity Hospitals Geneva Medical Center10-12-2022influenza (aIIV4) vaccine, age 65+ yr, quadrivalent, PF (FLUAD QUAD)Anibal Ash MD Work Phone: [facility] CantonWtcmuk70-22-5764cqgdkjine virus vaccine, split virus (incl. purified surface antigen)Danilo Clark Other [employer] Other 970949-17-0327modmfwsuk virus vaccine, unspecified formulationUniversity Hospitals Geneva Medical Center07-11-2022COVID-19 original vaccine, age 12+ yr, monovalent (PFIZER-BIONTECH - HANNA TOP)Anibal Ash MD Work Phone: [facility] CantonOnxpeu27-81-7234BKYIJ-75 original vaccine, age 12+ yr, monovalent (PFIZER-BIONTECH - PURPLE TOP)Anibal Ash MD Work Phone: [facility] CantonQtjrux63-60-9276kprpngmkh virus vaccine, split virus (incl. purified surface antigen)Danilo Clark Other [employer] Other [id number] virus vaccine, unspecified formulationUniversity Hospitals Geneva Medical Center09-29-2021Seasonal trivalent influenza vaccine, adjuvanted, preservative freeAnibal Ash MD Work Phone: [facility] CantonOhekmm58-35-2252LKUIE-98 original vaccine, age 12+ yr, monovalent (PFIZER-BIONTECH - PURPLE TOP)Anibal Ash MD Work Phone: [facility] CantonTgyybz56-57-5648OMQTQ-99 Vaccine Pfizer - Documentation Purposes Carleen Clark Other [facility]01-28-2021COVID-19 original vaccine, age 12+ yr, monovalent (PFIZER-BIONTECH - PURPLE TOP)Anibal Ash MD Work Phone: [facility] CantonAnpfrs93-74-7885naiyxdsnb virus vaccine, split virus (incl. purified surface antigen)Danilo Clark Other [employer] Other [id number] virus vaccine, unspecified formulationUniversity Hospitals Geneva Medical Center10-30-2019influenza virus vaccine, split virus (incl. purified surface antigen)Danilo Clark Other [employer] Other [id number] virus vaccine, unspecified formulationUniversity Hospitals Geneva Medical Center10-23-2018influenza virus vaccine, split virus (incl. purified surface antigen)Danlio Clark Other [employer] Other 916924-87-7821gnzyiaqey virus vaccine, unspecified formulationUniversity Hospitals Geneva Medical Center10-23-2018Seasonal trivalent influenza vaccine, adjuvanted, preservative freeAnibal Ash MD Work Phone: [facility] CantonUuweoo34-82-2638smzbmutzz virus vaccine, split virus (incl. purified surface antigen)Danilo Clark Other [employer] Other 220560-40-5083ovygrqjrk virus vaccine, unspecified formulationUniversity Hospitals Geneva Medical Center10-17-2017influenza, high dose seasonal, preservative-freeAnibal Ash MD Work Phone: [facility] CantonGubcll86-14-0261xvkkgfapp, injectable, quadrivalent, preservative freeAnibal Ash MD Work Phone: [facility] CantonFtcwpv42-10-0869mibvxjwgo virus vaccine, split virus (incl. purified surface antigen)Danilo Clark Other [employer] Other 588194-78-3718mmgwygody virus vaccine, unspecified formulationUniversity Hospitals Geneva Medical Center12-17-2015pneumococcal conjugate vaccine, 13 valentBenbrandynmin Amber Other [facility]11-02-2015 pneumococcal polysaccharide vaccine, 23 valentAnibal Ash MD Work Phone: [facility] CantonVnrzyz26-41-5456tiljobroofov Conjugate, unspecified formulation; Translations: [Need for prophylactic vaccination ag ainst Streptococcus pneumoniae (pneumococcus)]Danilo Clark Other [employer] Other 922528-10-3712qoiszvziikjy polysaccharide vaccine, 23 valentBenemeterio Clark Other [facility]12-26-2013influenza, seasonal, injectableJaimee Praful NETWORK TECHNOLOGY INSTRUCTOR.CHIPS SCREEN TENDER Work Phone: [facility] CantonOvjnuk12-97-1093fyufagz and diphtheria toxoids, adsorbed, preservative free, for adult use (5 Lf of tetanus toxoid and 2 Lf of diphtheria toxoid)Danilo Clark Other [facility]10-03-2012tetanus and diphtheria toxoids, adsorbed, preservative free, for adult use (5 Lf of tetanus toxoid and 2 Lf of diphtheria toxoid)Danilo Clark Other [facility]08-03-2005 pneumococcal polysaccharide vaccine, 23 valentBelinda Clark Other [facility] Payers DatePayer CategoryPayerPolicy [id number] 2021Medicare [id number] 2020Medicare (Managed Care) [id number] 1.2.840.451102.1.13.159.2.7.3.482973.01490-21-6181Mqwwlzi Health Insurance [id number] [id number] [id number] [id number] 2.16.840.1.520920.3.57[id number] 2.16.840.1.413908.3.57[id number] 2.16.840.1.774677.3.57[id number] 2.16.840.1.864227.3.57[id number] 2.16.840.1.748357.3.57[id number] 2.16.840.1.875184.3.57[id number] 2.16.840.1.727042.3.57[id number] 2.16840.1.049195.3.57[id number] 2.16840.1.169383.3.57[id number] 2.16840.1.873783.3.57[id number] 2.16840.1.966197.3.57[id number] 2.840.1.013548.3.57[id number] 2.840.1.716270.3.57[id number] 2.840.1.594977.3.57[id number] 2.840.1.859890.3.57[id number] 2..1.675724.3.57[id number] 2.840.1.802229.3.579.2.180502-13-4814Acysdmq9123374 2.16840.1.878134.3.57[id number] 2.16840.1.146483.3.579.2.409975-82-7694Vjvustr8129561 2.16840.1.239148.3.579.2.287946-10-7906Pgtjftb5622604 2.840.1.297309.3.57[id number] 2.16.840.1.165[id number] [facility] [id number] 2.16.840.1.485591.3.579.2.531 Social History DateTypeDetailFacilityStart: 12-17-2016 End: 84-16-3425Xkfemcd smoking status NHISEx-smokerSelect [facility] End: 26-37-6296Kmefdcf of tobacco useCurrent smokerSelect Medical Specialty Hospital [facility] End: 20-01-7180Pcygvsn of tobacco useCigar SmokerFostoria City Hospitaltart: 12-17-2016 End: 12-55-2359Cvjyrxn use and exposureSmokeless tobacco non-userFostoria City Hospitaltart: 08-03-2021 End: 32-01-3688Iucctuu intakeCurrent drinker of alcohol (finding)[facility]: 11-05-2016 End: 19-29-0148Vammyoe CommentQuit 40 years agoFostoria City Hospitaltart: 11-05-2016 Alcohol Comment2 beers per year.[facility]: 98-43-6015Jlb Assigned At BirthNot on fileFostoria City Hospitaltart: 02-10-2023 End: 93-12-0362Nkb [facility] Campustart: 05-13-2023 End: 50-40-2400Hhkuynt smoking status NHISNever smoked tobaccoOhioHealth Arthur G.[facility] Cancer Center Work Phone: Start: 05-03-2023 End: 82-66-8349Lffsqbat to SARS-CoV-2 (event)Not sureOhioHealth Arthur G.H. Bing, MD, Cancer CenterStart: 62-98-4906Rxv [facility]igned [facility]: 02-10-2023 End: 57-13-3964Sywwpdb of Social functionFostoria City Hospitaltart: 31-37-1022Kmlnu Depression Screening Mtqzvzazal5Bjguitjfn ClinicHistory of tobacco useCigarette SmokerNONJ HealthcareHistory of tobacco usePassive smokerNOMS HealthcareStart: 01-01-2024 End: 86-65-7739Eqfuarhru beverage intakeEx-drinker (finding)[facility] Start: 04-16-2024 End: 03-78-1796SceVtvx (finding)[facility] Medical Equipment Procedure CodeEquipment CodeEquipment Original TextEquipment IdentifierDatesOpen reduction and internal fixation of fracture of humerusK-WIRE 2.5MM W/ TROCAR POINTFDAStart: 87-19-4947Mudc reduction and internal fixation of fracture of humerusNAIL HUMERAL 9MM X 280MM TIFDAStart: 01-04-4257Sncb reduction and internal fixation of fracture of humerusSCREW 4.0MM TI LOCKING W/ J66WYMAkulw: 81-15-2280Aqxc reduction and internal fixation of fracture of humerusK-WIRE 2.5MM W/ TROCAR POINTFDAStart: 90-19-9313Beuj reduction and internal fixation of fracture of humerusNAIL HUMERAL 9MM X 280MM TIFDAStart: 10-59-7968Jqtd reduction and internal fixation of fracture of humerusSCREW 4.0MM TI LOCKING W/ T25FDA Start: 52-39-7469Zfby reduction and internal fixation of fracture of humerusK- WIRE 2.5MM W/ TROCAR POINTFDAStart: 07-20-3581Eovs reduction and internal fixation of fracture of humerusNAIL HUMERAL 9MM X 280MM TIFDAStart: 12-13-2016 Open reduction and internal fixation of fracture of humerusSCREW 4.0MM TI LOCKING W/ [id number]: 58-79-3369Fmam reduction and internal fixation of fracture of humerusK-WIRE 2.5MM W/ TROCAR POINTFDAStart: 27-51-7389Ymqk reduction and internal fixation of fracture of humerusNAIL HUMERAL 9MM X 280MM TIFDAStart: 40-98-8875Qvmk reduction and internal fixation of fracture of humerusSCREW 4.0MM TI LOCKING W/ [id number]: 20-38-1893Jhte reduction and internal fixation of fracture of humerusK-WIRE 2.5MM W/ TROCAR POINTFDAStart: 36-80-4589Dyya reduction and internal fixation of fracture of humerusNAIL HUMERAL 9MM X 280MM TIFDAStart: 21-72-9586Ptou reduction and internal fixation of fracture of humerusSCREW 4.0MM TI LOCKING W/ T55OQIUnkdc: 14-01-6261Cydn reduction and internal fixation of fracture of humerusK-WIRE 2.5MM W/ TROCAR POINTFDAStart: 54-35-1449Ukhg reduction and internal fixation of fracture of humerusNAIL HUMERAL 9MM X 280MM TIFDAStart: 15-74-6356Ecxe reduction and internal fixation of fracture of humerusSCREW 4.0MM TI LOCKING W/ X03FVVAqddz: 40-32-0922Aphb reduction and internal fixation of fracture of humerusK-WIRE 2.5MM W/ TROCAR POINTFDAStart: 19-34-4045Ajuu reduction and internal fixation of fracture of humerusNAIL HUMERAL 9MM X 280MM TIFDAStart: 68-36-1427Vjop reduction and internal fixation of fracture of humerusSCREW 4.0MM TI LOCKING W/ T25FDA Start: 46-35-6546Axgm reduction and internal fixation of fracture of humerusK- WIRE 2.5MM W/ TROCAR POINTFDAStart: 43-95-2750Tfrt reduction and internal fixation of fracture of humerusNAIL HUMERAL 9MM X 280MM TIFDAStart: 12-13-2016 Open reduction and internal fixation of fracture of humerusSCREW 4.0MM TI LOCKING W/ R59FCLStnwo: 59-76-8377Ifmx reduction and internal fixation of fracture of humerusK-WIRE 2.5MM W/ TROCAR POINTFDAStart: 61-43-8691Yjat reduction and internal fixation of fracture of humerusNAIL HUMERAL 9MM X 280MM TIFDAStart: 17-93-1288Razn reduction and internal fixation of fracture of humerusSCREW 4.0MM TI LOCKING W/ V25GPDQxkni: 90-86-5613Vjsd reduction and internal fixation of fracture of humerusK-WIRE 2.5MM W/ TROCAR POINTFDAStart: 51-35-9693Zhfw reduction and internal fixation of fracture of humerusNAIL HUMERAL 9MM X 280MM TIFDAStart: 80-89-4530Wtsw reduction and internal fixation of fracture of humerusSCREW 4.0MM TI LOCKING W/ J78OLXXurig: 12-13-2016 [id number], [id number]: 58-52-1511Pog Needle, Diabetic (Bd Ultra-Fine Short Pen Needle) 31 gauge x 5/16 needleStart: 68-66-2629Yaf Needle, Diabetic (Bd Ultra-Fine Short Pen Needle) 31 gauge x 5/16 needleStart: 09-30-2023 End: 02-55-1017Ycj Needle, Diabetic (Bd Ultra-Fine Short Pen Needle) 31 gauge x 5/16 needleStart: 63-23-5095Not Needle, Diabetic (Bd Ultra-Fine Short Pen Needle) 31 gauge x 5/16 needleStart: 09-30-2023 End: 70-82-1024Avw Needle, Diabetic (Bd Ultra-Fine Short Pen Needle) 31 gauge x 5/16 needleStart: 09-30-2023 End: 11-89-8943Hkc Needle, Diabetic (Bd Ultra-Fine Short Pen Needle) 31 gauge x 5/16 needleStart: 18-92-0374Ewc Needle, Diabetic (Bd Ultra-Fine Short Pen Needle) 31 gauge x 5/16 needleStart: 09-30-2023 End: 10-97-0818Xim Needle, Diabetic (Bd Ultra-Fine Short Pen Needle) 31 gauge x 5/16 needleStart: 09-30-2023 End: 20-90-6985Jnm Needle, Diabetic (Bd Ultra-Fine Short Pen Needle) 31 gauge x 5/16 needleStart: 89-82-4966Nei Needle, Diabetic (Bd Ultra-Fine Short Pen Needle) 31 gauge x 5/16 needleStart: 09-30-2023 End: 10-10-9035Akz Needle, Diabetic (Bd Ultra-Fine Short Pen Needle) 31 gauge x 5/16 needleStart: 09-30-2023 End: 38-40-8388Xrf Needle, Diabetic 31 gauge x 5/16 needleStart: 33-16-6280Dnl Needle, Diabetic (Bd Ultra-Fine Short Pen Needle) 31 gauge x 5/16 needleStart: 09-30-2023 End: 98-81-2819Iyt Needle, Diabetic (Bd Ultra-Fine Short Pen Needle) 31 gauge x 5/16 needleStart: 09-30-2023 End: 70-76-7102Fwl Needle, Diabetic (Bd Ultra-Fine Short Pen Needle) 31 gauge x 5/16 needleStart: 12-23-2023 End: 45-21-1696Ovj Needle, Diabetic 31 gauge x 5/16 needleStart: 67-75-1511Luv Needle, Diabetic (Bd Ultra-Fine Short Pen Needle) 31 gauge x 5/16 needleStart: 09-30-2023 End: 02-76-0563Cbk Needle, Diabetic (Bd Ultra-Fine Short Pen Needle) 31 gauge x 5/16 needleStart: 09-30-2023 End: 29-17-0746Srp Needle, Diabetic (Bd Ultra-Fine Short Pen Needle) 31 gauge x 5/16 needleStart: 12-23-2023 End: 33-56-2490Yfw Needle, Diabetic 31 gauge x 5/16 needleStart: 34-50-5022Ixo Needle, Diabetic (Bd Ultra-Fine Short Pen Needle) 31 gauge x 5/16 needleStart: 09-30-2023 End: 34-60-8651Aov Needle, Diabetic (Bd Ultra-Fine Short Pen Needle) 31 gauge x 5/16 needleStart: 09-30-2023 End: 69-99-5540Bpo Needle, Diabetic (Bd Ultra-Fine Short Pen Needle) 31 gauge x 5/16 needleStart: 12-23-2023 End: 09-74-5882Byx Needle, Diabetic 31 gauge x 5/16 needleStart: 09-05-2024 End: 01-05-2025 Functional Status CnqkIkkjsxyygmJyufenNuuirdsr48-58-5109Jac you deaf, or do you have serious difficulty hearingNo 09/19/2024 10:32 AM Shawna Varela RN [facility] CenterNapqum43-33-6046Hhx you blind, or do you have serious difficulty seeing, even when wearing glassesNo 09/19/2024 10:32 AM Shawna Varela RN NoCWooster Community HospitalUyktki81-44-0932Ut you have serious difficulty walking or climbing stairsNo 09/19/2024 10:32 AM Shawna Varela RN NoCWooster Community HospitalUrrthj70-19-2689Pb you have difficulty dressing or bathingNo 09/19/2024 10:32 AM Shawna Vareal RN NoCleveland Dsioxo43-17-6263Zvyspol of a physical, mental, or emotional condition, do you have difficulty doing errands alone such as visiting a physician's office or shoppingNo 09/19/2024 10:32 AM Shawna Varela RN No [facility] Mental Status YbuqMjhgrvgnytJscpkiZjnowjsc10-73-0455Ptcifkm of a physical, mental, or emotional condition, do you have serious difficulty concentrating, remembering, or making decisionsNo 09/19/2024 10:32 AM Shawna Varela RN [facility] Clinical Notes 09-20-2020 to 11-24-2024 Note Date & YnbmVvnnAxabnjxj45-89-0900 History of Present illness Narrative* Idalmis Basilio APRN.CHIPS SCREEN TENDER - 11/24/2024 10:30 AM EDT Images from the original note were not included. NAME: Rafat Bella [facility] NO.: [id number] DATE OF SERVICE: November 24, 2024 (Praful) [...] 3. Multiple myeloma not having achieved remission ([facility]) (C90.00) 4. Multiple myeloma in remission ([facility]) (C90.01) Monoclonal protein levels remain stable with [...] hemoglobin. 5. Stage 3a chronic kidney disease ([facility]) (N18.31) Kidney function remains slightly above normal but stable. - Continue to monitor kidney function with routine labs. ___ CASE HISTORY: Reverse Chronological Order 07/21/2024 - A. Left parotid, mass, needle biopsy - Specimen #: [id number] - Mucoepidermoid carcinoma Comment: No high grade [...] 40.7 < 181, eGFR: 56, Creatinine: 1.28 Chapeno: 109.2, Lambda: 45.1, K/L Ratio: 2.42 IgA: [...] node. 01/17/2023 - Left parotid biopsy: at [facility] Atypia of undetermined significance 2018 - Completed [...] only for 5 minutes Called Rafat alicia karly as requested. Reviewed labs from 02/07/2022. 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 He has no complaints. [...] clot in January 2016. He went to [facility] for fatigue and diagnosed with a clot, [...] Revlimid. Had hospitalization in January 2017 to [place] and had a kyphoplasty for compression fracture. [...] for up to 5 days. DEXCOM G7 CHARGEMASTER ANALYST [facility] USE AT HOME TO TEST BLOOD SUGAR [...] which included preparing to see the patient, vxcb-ua-fuoq patient care, completing clinical documentation, obtaining and/or reviewing separately obtained history, performing a medically appropriate examination, counseling and educating the patient/family/caregiver, ordering medications, tests, or procedures, independently interpreting results (not separately reported), communicating results to the patient/family/caregiver, and care coordination (not separately reported). Idalmis Basilio APRN, J2EE ENGINEER-C, OCN Hematology [facility] Oncology Services Provided at: [place], [place] CC: Danilo Clark MD [facility] [id number] MD Frankie Manning MD documented in this encounterSelect Medical [facility]09-03-2025 NoteWooster Community Hospital07-25-2025 Evaluation note* Diagnosis Onset Date Resolution [...] (hypertension)chronicOctober 2024 1:48pm Multiple myelomachronicOctober 2024 1:48pm [facility] Work Phone: 1(839) 877-162007-24-2025 History of Present illness Narrative* Jabier Aldridge [...] and negative PT pedal pulses NEURO: 5.07 Palmer Bhavya monofilament test diminished to digits and forefoot bilaterally 125Hz tuning fork diminished to 1st MPJ bilaterally ORTHO: Positive pain on palpation to toenails of the left 1,2,3,4,5 toes and right 1,2,3,4,5 toes Flexion deformities 2 through 5 digits bilaterally ASSESSMENT 1. Diabetes mellitus due to underlying condition with diabetic polyneuropathy, unspecified whether care home insulin use (HCC) 2. Pain due to [...] gear. Jabier Aldridge DPM documented in this encounterMercy Hospital JoplinJhbotxcqyq69-35-5519 NoteWooster Community Hospital07-22-2025 History of Present illness Narrative* Angelique Donis, DOROTHY.CHIPS SCREEN TENDER - 10/12/2024 2:31 PM EDT PALLIATIVE MEDICINE PROGRESS NOTE SERVICE DATE: October 12, 2024 IDENTIFICATION AND INTRODUCTION: Rafat Bella is a 84 year old male This visit took place In Ambulatory [facility] Facility Recording using ambient tamyca software for draft documentation of the visit was discussed with the patient/authorized technical sales representative; all questions welcomed and answered. Patient/authorized technical sales representative agreed to proceed CHIEF COMPLAINT: Neoplasm [...] this time. REVIEW OF SYSTEMS: Modified ESAS (Williams Symptom Assessment Scale) Information Provided By: Patient and Family member Pain: Mild Nausea: None Loss of Appetite: None Constipation: None Shortness of Breath: None Drowsiness: None Tiredness: None Depression: None Anxiety: None Objective PHYSICAL EXAMINATION: BP 128/73 Pulse 76 Temp 36.2 C (97.2 F) (Temporal) Resp 16 Wt 115 kg (253 lb 8.5 oz) LgE092% BMI 36.38 kg/m General Appearance: No apparent [...] (HCC) (C90.00) - Follow-up appointment with Dr. Jurdao and lab work scheduled for next month. [...] which included preparing to see the patient, tarx-nd-negx patient care, completing clinical documentation, obtaining and/or reviewing separately obtained history, performing a medically appropriate examination, counseling and educating the pat ient/family/caregiver, ordering medications, tests, or procedures, communicating with other HCPs (not separately reported), independently interpreting results (not separately reported), communicatingresults to the patient/family/caregiver, and care coordination (not separately reported) None Needed Palliative Medicine Nurse to do telephonic follow-up: No Play Back Operator Services: None at this time Referral to Cat Dog Or Other Pet Groomer: No, not at this time Angelique Donis NP, NETWORK TECHNOLOGY INSTRUCTOR.CHIPS SCREEN TENDER October 12, 2024 2:31 PM This note may have been partially generated using the Conduit voice recognition system. While every effort was made to correct voice recognition errors, kindly be aware that some errors may occasionally occur. documented in this encounterSelect Medical Specialty Hospital [facility]07-22-2025 Instructions* Patient Instructions* Silvia Lehman, RN - 10/12/2024 12:16 PM EDT Follow up with Dr Pang in 3-4 months documented in this encounterSelect Medical Specialty Hospital [facility]07-22-2025 NoteWooster Community Hospital07-22-2025 History of Present illness Narrative* Gurpreet [...] 5 days. 10 tablet 0 DEXCOM G7 CHARGEMASTER ANALYST misc USE AT HOME TO TEST BLOOD [...] Patient is a non-smoker documented in this encounterSelect Medical Specialty Hospital [facility]07-22-2025 NoteWooster Community Hospital07-07-2025 History of Present illness Narrative* Radha [...] visit. Radha Murphy RN documented in this encounterSelect Medical Specialty Hospital [facility]07-07-2025 NoteWooster Community Hospital07-07-2025 Telephone encounter Note* Telephone Encounter - Zakiya Palma - 09/27/2024 12:52 PM EDT Spoke w/ and he will be in today. Thanks! Zakiya Palma [facility]07-07-2025 Miscellaneous Notes* Telephone Encounter - Zakiya Palma [...] to be pulled. Spoke with our Nurse manager technical support at the [place] office and we are able to pull the BARB if we get the okfrom the surgeon and the pt or we are aware of the post care needed. The patient would also have juan carlos here this afternoon as tomorrow is a holiday. Made the aware of all of this. She is also going to call the [facility] in the mean time while they wait to hear from her surgery team. Informed her to call us if they plan to come in so we know they are coming. verbalized understanding. Abbie Eisenberg RN documented in this encounterSelect Medical Specialty Hospital [facility]07-07-2025 Telephone encounter Note * Telephone Encounter - Rafaela Rodriguez RN - 09/27/2024 9:[address] Phil [facility] office, called with okay to pull drain. Documented okay per Dr Villarreal in previous encounter. PSS: Please call to schedule Rafaela Rodriguez RN [facility]07-03-2025 Telephone encounter Note* Telephone Encounter - Louise Mike RN - 09/23/2024 1:46 PM EDT Patient notified ok to have drain pulled in [place] per Dr. Pang. [facility]07-03-2025 Miscellaneous Notes* Telephone Encounter - Louise Mike RN - 09/23/2024 1:46 PM EDT Patient notified ok to have drain pulled in [place] per Dr. Pang. * Telephone Encounter - Louise Mike RN - 09/23/2024 1:08 PM EDT Spoke with . States drain output has been about 10ml, twice a day. They are wondering if they can go to their doctor or the ED in [place] to have the drain pulled. 09/17/24 PAROTIDECTOMY (Left: Neck) * Telephone Encounter - Alexus Sullivan - 09/23/2024 12:38 PM EDT Person Calling:pts Reason for Call: [facility] Pt Phone #: [phone] Pharmacy Name and # : Pt last seen: 08/31/2024 Alexus Sullivan * Telephone Encounter - Tabitha Downs - 09/23/2024 11:29 AM EDT Pt needs a BARB tube removed, 20ml in the last 24 hours [facility] [place] [place] documented in this encounterSelect Medical Specialty [facility]07-03-2025 Telephone encounter Note * Telephone Encounter - Abbie Eisenberg RN - 09/23/2024 1:41 PM EDT Pt calling to see if we are able to pull BARB drain. There is another phone encounter to her surgery team as well to see if it is ok to be pulled. Spoke with our Nurse manager technical support at the [place] office and we are able to pull the BARB if we get the okfrom the surgeon and the pt or we are aware of the post care needed. The patient would also have juan carlos here this afternoon as tomorrow is a holiday. Made the aware of all of this. She is also going to call the [facility] in the mean time while they wait to hear from her surgery team. Informed her to call us if they plan to come in so we know they are coming. verbalized understanding. Abbie Eisenberg RN [facility]07-03-2025 Telephone encounter Note* Telephone Encounter - Louise Mike RN - 09/23/2024 1:08 PM EDT Spoke with . States drain output has been about 10ml, twice a day. They are wondering if they can go to their doctor or the ED in [place] to have the drain pulled. 09/17/24 PAROTIDECTOMY (Left: Neck) [facility]07-03-2025 Telephone encounter Note* Telephone Encounter - Alexus Sullivan - 09/23/2024 12:38 PM EDT Person Calling:pts Reason for Call: [facility]24 Pt Phone #: [phone] Pharmacy Name and # : Pt last seen: 08/31/2024 Alexus Sullivan [facility]07-03-2025 Telephone encounter Note* Telephone Encounter - Tabitha Downs - 09/23/2024 11:29 AM EDT Pt needs a BARB tube removed, 20ml in the last 24 hours [place] [facility]06-29-2025 NoteWooster Community Hospital06-28-2025 Note [facility]06-27-2025 NoteWooster Community Hospital06-27-2025 NoteWooster Community Hospital06-27-2025 NoteW[facility] Hospital 09-13-2024 History of Present illness Narrative* Frankie Martinez MD - 09/13/2024 11:29 PM EDT Images from the original note were not included. Radiation Oncology - New Patient/Consult Note PATIENT NAME: Rafat Bella PATIENT Signed: Frankie Martinez MD I spent a total of 60 minutes on the date of the service which included preparing to see the patient, vcnx-sy-diat patient care, and counseling and educating the [...] monitoring. Dana Stephen RN documented in this encounterSelect Medical Specialty Hospital [facility]06-19-2025 Telephone encounter Note * Telephone Encounter - Gabi Granados - 09/09/2024 8:34 AM EDT 92209/09/[address] Clark's office. Allyson advises the AC instructions were faxed to the [facility] office with a confirmation received the fax went through at [phone]. Diane please advise you have received this fax. Gabi PERERA, ANA, [facility] Resource nurse Call to Dr Clark's office. Message left on the nursing line for Dr Clark. Inquired if letter receivedin regards to the AC. Contact info left on voice mail. Re-sent letter to current fax in [employer]. Gabi PERERA, ANA, [facility] Resource nurse [facility]06-19-2025 Miscellaneous Notes* Telephone Encounter - Radha Granadose - 09/09/2024 8:34 AM EDT 92209/09/[address] Clark's office. Allyson advises the AC instructions were faxed to the [facility] office with a confirmation received the fax went through at [phone]. Diane please advise you have received this fax. Gabi PERERA RN, [facility] PACC Resource nurse Call to Dr Clark's office. Message left on the nursing line for Dr Clark. Inquired if letter receivedin regards to the AC. Contact info left on voice mail. Re-sent letter to current fax in [employer]. Gabi PERERA RN, [facility] P[facility] Resource nurse documented in this encounterSelect Medical Specialty Hospital [facility]06-18-2025 NoteWooster Community Hospital06-18-2025 History of Present illness Narrative* Richa [...] PATIENT PRESENTS WITH AN IMPLANTABLE OR ATTACHED MOLYBDENUM STEAMER OPERATOR: No RADIOLOGY DEPARTMENT: General X-ray: Exam(s) Completed: Chest X-Ray PERIPHERAL IV DATA: Not applicable SIGNED BY: RT Aquilino(R) September 08, 2024 3:08 PM documented in this encounterSelect Medical Specialty Hospital [facility]06-18-2025 Instructions* Patient Instructions* Diane Dickey APRN.CHIPS SCREEN TENDER - 09/08/2024 2:35 PM EDT PATIENT PREOPERATIVE INSTRUCTIONS Gurpreet Pang MD has scheduled you for your procedure at this surgery center: [facility] [place] Scheduling Office: [phone] --[address] [place] [address]. Please read below carefully for your personalized [...] or other anticoagulants without consulting with your lockstitch lining maker or prescribing physician. - Stop NSAIDS (Ibuprofen, [...] Procedures: - YOU MUST HAVE A RESPONSIBLE GROUND INTELLIGENCE OFFICER TAKE YOU HOME. A MECHANICAL PLANNER OR FEED RESEARCH AIDE CANNOT BE MADE A RESPONSIBLE GROUND INTELLIGENCE OFFICER. - We recommend that a responsible person [...] call the Friday before. Your surgeon s maintenance scheduler will tell you what time to call the office. - If you have not reached the departmental maintenance scheduler by 5 P.M., call [phone] after 5 P.M. the day before your surgery. Please be aware that emergency situations arise, which may delay or change your surgical time. If this happens, we will notify you as soon as possible and regret any inconvenience. If you already have an Advance Directive, please fax a copy to [phone] or email to for it to be [...] your chart that day. documented in this encounterSelect Medical Specialty Hospital [facility]06-18-2025 History and physical note * Diane Dickey [...] kidney disease, unspecified CKD stage, 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) Assessment: Managed with Humulin [...] fevers. Neurological: No history of TIA's, stroke, VETERINARY INSPECTOR tumor, impaired sensorium, hemiplegia, paraplegia orquadraplegia. No [...] by mouth once daily. Yes DEXCOM G7 CHARGEMASTER ANALYST misc USE AT HOME TO TEST BLOOD [...] 356 QTC Calculation (Bazett) 405 Calculated P [place] 44 Calculated R [place] 43 Calculated T [place] 76 Impression SINUS RHYTHM WITH 1ST DEGREE AV BLOCK NONSPECIFIC T WAVE ABNORMALITY ABNORMAL ECG Instructions Given to Patient: Instructions located in the after visit summary. Patient given verbal and written preop instructions and voices comprehension and compliance. SIGNATURE: Diane Dickey APRN.CNP PATIENT NAME: Rafat Bella DATE: 09/08/2024 TIME: 2:12 PM [facility]06-18-2025 History and physical note* Diane Dickey APRN.CNP [...] kidney disease, unspecified CKD stage, unspecified whether care home insulin use (HCC) Assessment: Managed with Humulin [...] PAROTIDECTOMY (Left) at the request of Dr. Gurprete Pang for consultation. My final recommendationwill be [...] fevers. Neurological: No history of TIA's, stroke, VETERINARY INSPECTOR tumor, impaired sensorium, hemiplegia, paraplegia orquadraplegia. No [...] by mouth once daily. Yes DEXCOM G7 CHARGEMASTER ANALYST misc USE AT HOME TO TEST BLOOD [...] 356 QTC Calculation (Bazett) 405 Calculated P [place] 44 Calculated R [place] 43 Calculated T [place] 76 Impression SINUS RHYTHM WITH 1ST DEGREE AV BLOCK NONSPECIFIC T WAVE ABNORMALITY ABNORMAL ECG Instructions Given to Patient: Instructions located in the after visit summary. Patient given verbal and written preop instructions and voices comprehension and compliance. SIGNATURE: Diane Dickey APRN.CNP PATIENT NAME: Rafat Bella DATE: 09/08/2024 TIME: 2:12 PM documented in this encounterSelect Medical Specialty Hospital [facility]06-13-2025 NoteHNO ID: [id number] Author: SARA PRITCHETT RN Service: ? Author Type: Registered Nurse Type: Progress Notes Filed: 09/10/2024 08:19 Note Text: errorWooster Community Hospital06-13-2025 History of Present illness Narrative* Sara Pritchett RN - 09/03/2024 3:34 PM EDT error documented in this encounterSelect Medical Specialty [facility]06-10-2025 Telephone encounter Note * Telephone Encounter - Alexus Sullivan - 08/31/2024 2:37 PM EDT Person Calling:pts spouse Reason for Call: would like a call back in regards to pt getting scheduled for surgery Pt Phone #: [phone] Pharmacy Name and # : Pt last seen: 08/02/2024 Alexus Sullivan [facility]06-10-2025 Miscellaneous Notes* Telephone Encounter - Alexus Sullivan - 08/31/2024 2:37 PM EDT Person Calling:pts spouse Reason for Call: would like a call back in regards to pt getting scheduled for surgery Pt Phone #: [phone] Pharmacy Name and # : Pt last seen: 08/02/2024 Alexus Sullivan documented in this encounterSelect Medical Specialty Hospital [facility]06-03-2025 Instructions* Patient Instructions* Angelique Donis APRN.MICHAEL - 08/24/2024 1:25 PM EDT Angelique Donis CNP Department of Palliative and Supportive Care Palliative Care - Specialty services in symptom management and support For questions or prescription refills, call: [phone] Friday - Friday 9AM-5PM TREVER Guadarrama, RN - Poll Watcher Please call 3-5 days in advance for medication refills Evenings, Weekends, Holidays: [phone] (ask for palliative medicine on-call provider) For appointments, cancellations or reschedule, call: [phone] documented in this encounterSelect Medical Specialty [facility]06-03-2025 NoteWooster Community Hospital06-03-2025 History of Present illness Narrative* Angelique [...] Left TONSILLECTOMY HX CURRENT MEDICATIONS: DEXCOM G7 CHARGEMASTER ANALYST misc USE AT HOME TO TEST BLOOD [...] Types: Cigars REVIEW OF SYSTEMS: Modified ESAS (Williams Symptom Assessment Scale): Information Provided By: Patient [...] ear normal. Nose: Nose normal. Mouth/Throat: Lips: [place]. Mouth: Mucous membranes are moist. No oral [...] palliative medicine - Discussed services offered by [employer] - Provided support to family (D49.0) Parotid [...] shared electronic medical record. Angelique Donis NP, NETWORK TECHNOLOGY INSTRUCTOR.CHIPS SCREEN TENDER August 24, 2024 1:49 PM This note may have been partially generated using the Conduit voice recognition system. While every effort was made to correct voice recognition errors, kindly be aware that some errors may occasionally occur. documented in this encounterSelect Medical Specialty [facility]05-30-2025 Telephone encounter Note * Telephone Encounter - Ann Orta - 08/20/2024 7:15 AM EDT Images from the original note were not included. [facility]05-30-2025 Miscellaneous Notes* Telephone Encounter - Ann Orta - 08/20/2024 7:15 AM EDT Images from the original note were not included. documented in this encounterSelect Medical [facility]25 NoteW[facility]05-29-2025 Instructions* Patient Instructions* Stacie Schultz - 08/19/2024 4:03 PM EDT Triage to call results of today's labs Proceed surgery with Dr. Pang & radiation with Dr. Martinez [facility] in 3 months Labs 1 week prior documented in this encounterSelect Medical [facility] History of Present illness Narrative* Anibal Ash MD - 08/19/2024 4:00 PM EDT Images from the original note were not included. 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 01/17/2023 - Left parotid biopsy: at [facility] Atypia of undetermined significance 2018 - Completed [...] 02/07/2022. 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 He has no complaints. [...] clot in January 2016. He went to [facility] for fatigue and diagnosed with a clot, [...] Revlimid. Had hospitalization in January 2017 to [place] and had a kyphoplasty for compression fracture. [...] Penicillins Swelling Swelling of the mouth. MEDICATIONS: DEXIkanos G7 CHARGEMASTER ANALYST [facility] USE AT HOME TO TEST BLOOD SUGAR [...] which included preparing to see the patient, ssif-pj-ksfq patient care, completing clinical documentation, obtaining and/or reviewing separately obtained history, performing a medically appropriate examination, counseling and educating the patient/family/caregiver, ordering medications, tests, or procedures, independently interpreting results (not separately reported), communicating results to the patient/family/caregiver, and care coordination (not separately reported). Anibal Ash MD, CPE Hematology and Oncology Services Provided at: [place], [place] Scribe Attestation: This note was scribed [...] direction. CC: Danilo Clark MD [address] [facility] [address] MD Frankie Manning MD documented in this encounterSelect Medical [facility]-29-2025 NoteW[facility]05-29-2025 NoteW[facility]05-27-2025 NoteW[facility]05-27-2025 History of Present illness Narrative* Gurpreet [...] with extraparotid extension of tumor SURGICAL PATHOLOGY: [id number] Order: [id number] Collected 07/21/2024 11:22 AM Status: Final result [...] in one cassette. Gross examination performed at [facility], [address] [place] [address] [facility] July 21, 2024 7:23 PM Consultation requested [...] Medications Medication Sig Dispense Refill DEXCOM G7 CHARGEMASTER ANALYST [facility] USE AT HOME TO TEST BLOOD SUGAR [...] Patient is a non-smoker documented in this encounterSelect Medical [facility]05-23-2025 NoteW[facility]05-16-2025 Telephone encounter Note* Telephone Encounter - [...] 2pm. She accepted appointment at this time. [facility]05-16-2025 Miscellaneous Notes* Telephone Encounter - Lashonda Butcher [...] someone be able to contact this pt? [phone] * Telephone Encounter - Tabitha Downs - 08/02/2024 11:46 AM EDT Person Calling:Shira Reason for Call:Would like a callback to review the pt's biopsy results. Pt Phone #: [phone] Tabitha Downs documented in this encounterSelect Medical [facility]ty [facility]-16-2025 Telephone encounter Note * Telephone Encounter - Tabitha Downs - 08/06/2024 1:07 PM EDT Pt's called back today frustrated that no one has called back to review biopsy results. Pt is on the line and requesting to speak to someone as soon as possible. Will someone be able to contact this pt? [phone] [facility]05-12-2025 Telephone encounter Note* Telephone Encounter - Tabitha Downs - 08/02/2024 11:46 AM EDT Person Calling:Shira Reason for Call:Would like a callback to review the pt's biopsy results. Pt Phone #: [phone] Tabitha Himanshu [facility]05-12-2025 Telephone encounter Note* Telephone Encounter - Rafaela [...] and Wan 09/07/24. Wan: MAHIN Rodriguez RN [facility]05-12-2025 Miscellaneous Notes* Telephone Encounter - Rafaela Rodriguez [...] Wan: MAHIN Rodriguez RN documented in this encounterSelect Medical [facility]-2025 Telephone encounter Note * Telephone Encounter - Denae Grider RN - 07/30/2024 2:47 PM EDT Palliative Medicine Referral Assessment Referral Accepted: Yes, Location: [place]. 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 Established with Inpatient Pall Med team: no Reason for consult: introduction to services, goals of care, cancer related pain, nausea/vomiting, and symptom support Clinic location: Bill Grider RN July 30, 2024 documented in this encounterSelect Medical [facility]-2025 Telephone encounter Note * Telephone Encounter - Silvia Lehman RN - 07/28/2024 11:14 AM EDT Message per Dr Mendoza: I need to see him back in clinic -- also appt with palliative, med onc and rad onc julian wiley [facility]05-07-2025 Miscellaneous Notes* Telephone Encounter - Silvia Lehman, RN - 07/28/2024 11:14 AM EDT Message per Dr Mendoza: I need to see him back in clinic -- also appt with palliative, med onc and rad onc thanks saurabh documented in this encounterSelect Medical [facility]-23-2025 Evaluation note* Diagnosis Onset Date Resolution Status Admit Date Back pain of thoracolumbar region acuteApril 2024 1:13pmElevated cholesterolacuteApril 2024 1:13pmMass of left parotid glandacuteApril 2024 1:13pmMedicare annual wellness visit, subsequentacuteApril 2024 1:13pmType 2 diabetes mellitus with diabetic polyneuropathyacuteApril 2024 1:13pmType 2 diabetes mellitus with hyperglycemiaacuteApril 2024 1:13pmHTN (hypertension)chronicApril 2024 1:13pmMultiple myelomachronicApril 2024 1:13pm [facility] Work Phone: 1(821) 491-854104-23-2025 Telephone encounter Note* Telephone Encounter - Garth Mitchell - 07/14/2024 12:27 PM EDT Spoke with patient's (Shira) and scheduled BX on 07/21/24 [facility]04-23-2025 Miscellaneous Notes* Telephone Encounter - Garth Mitchell [...] for this procedure: intermediate-high risk. Reference from [facility] Carton Filler: [email or web address] STAFF SIGNATURE: Cal Elizabeth MD DATE: July 12, 2024 TIME: 3:42 PM * Telephone Encounter - Keira Owens LPN - 07/08/2024 3:16 PM EDT BX. COORDINATOR INFORMATION LAB RESULTS: PT INR (no units) Date Value 10/01/2017 2.5 No results found for: APTT Platelet Count (k/uL) Date Value 05/10/2024 232 12/11/2020 185 Current Outpatient Medications Medication Sig DEXCOM G7 CHARGEMASTER ANALYST misc USE AT HOME TO TEST BLOOD [...] INFORMATION: Best way to reach patient SCHEDULING: [facility] (Specific requests must be greater than 10 [...] random biopsies do not need imaging.) IMAGING: [facility] (If the imaging was obtained outside the [facility] system, PLEASE upload for review prior to approval.) Note to all persons requesting biopsies: All biopsy requests will be scheduled as quickly as possible, based on the clinical urgency, availability of appointment times, the need to hold anti-thrombolytic therapy (aspirin and other blood thinners) and the patient s schedule, including the need for an available haul driver. If a percutaneous biopsy or drainage is not felt to be safe or an alternative method for establishing a diagnosis is possible, this will be discussed directly with the requesting physician. documented in this encounterSelect Medical [facility]04-21-2025 Telephone encounter Note * Telephone Encounter - [...] for this procedure: intermediate-high risk. Reference from [facility] Carton Filler: [email or web address]/[email or web address] STAFF SIGNATURE: Cal Elizabeth MD DATE: July 12, 2024 TIME: 3:42 PM [facility]04-17-2025 Telephone encounter Note* Telephone Encounter - Keira Owens LPN - 07/08/2024 3:16 PM EDT BX. COORDINATOR INFORMATION LAB RESULTS: PT INR (no units) Date Value 10/01/2017 2.5 No results found for: APTT Platelet Count (k/uL) Date Value 05/10/2024 232 12/11/2020 185 Current Outpatient Medications Medication Sig DEXCOM G7 CHARGEMASTER ANALYST misc USE AT HOME TO TEST BLOOD [...] DATE: July 08, 2024 TIME: 3:16 PM [facility]04-17-2025 Telephone encounter Note* Telephone Encounter - Silvia Lehman RN - 07/08/2024 2:48 PM EDT STAFF-INITIATED RADIOLOGY BIOPSY / ASPIRATION / DRAIN REQUEST FORM Date: July 08, 2024 Time: 2:49 PM PATIENT CONTACT INFORMATION: Best way to reach patient SCHEDULING: [facility] (Specific requests must be greater than 10 [...] random biopsies do not need imaging.) IMAGING: [facility] (If the imaging was obtained outside the [facility] system, PLEASE upload for review prior to approval.) Note to all persons requesting biopsies: All biopsy requests will be scheduled as quickly as possible, based on the clinical urgency, availability of appointment times, the need to hold anti-thrombolytic therapy (aspirin and other blood thinners) and the patient s schedule, including the need for an available haul driver. If a percutaneous biopsy or drainage is not felt to be safe or an alternative method for establishing a diagnosis is possible, this will be discussed directly with the requesting physician. [facility]04-17-2025 NoteW[facility] Hospital04-17-2025 History of Present illness Narrative* Olivia Rios OCCA - 07/08/2024 2:11 PM EDT Tobacco Use: Types: Cigars Was smoking cessation packet given? N/A - Patient is a non-smoker or quit >1 year ago. Was a referral initiated?N/A Patient is a non-smoker * Gurpreet Pang MD - 07/08/2024 2:02 PM EDT Rafat Bella [id number] July 08, 2024 [place] New patient Consultation requested by Dr. Anibal [...] Medications Medication Sig Dispense Refill DEXCOM G7 CHARGEMASTER ANALYST misc USE AT HOME TO TEST BLOOD [...] care. Gurpreet Pang MD documented in this encounterSelect Medical [facility]04-17-2025 NoteW[facility] Hospital03-12-2025 Telephone encounter Note* Telephone Encounter - Abbie Eisenberg RN - 06/02/2024 1:32 PM EDT Thanks Ann [facility]03-12-2025 Miscellaneous Notes* Telephone Encounter - Abbie Eisenberg [...] determine plan. Thank you documented in this encounterSelect Medical [facility]03-12-2025 Telephone encounter Note * Telephone Encounter - Ann Orta - 06/02/2024 1:22 PM EDT Patient is scheduled and confirmed with Main [facility] July 08 at 2:15. Labs August 25 at 11 and Follow up September 01. Confirmed dates and time with . Also mailed appt reminder with addresses for them., [facility]03-12-2025 Telephone encounter Note* Telephone Encounter - Abbie Eisenberg RN - 06/02/2024 10:54 AM EDT Pt and notified and all questions answered. Pt states they would prefer to go to [facility],Dr. Blas is agreeable to that plan. PSS: Please schedule per DR. BLAS's previous message. Thanks Abbie Eisenberg RN [facility]03-12-2025 Telephone encounter Note* Telephone Encounter - Anibal Ash MD - 06/02/2024 10:41 AM EDT Needs ENT consult. For parotid mass- Then needs labs in 12 weeks see me in 13 weeks. For myeloma. [facility]03-10-2025 Telephone encounter Note* Telephone Encounter - Abbie Eisenberg RN - 05/31/2024 8:25 AM EDT WAN: CT of neck is resulted for your review and to decide on plan of care per your visit disposition. Pt has no follow up. Please review and advise. Thanks. 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 Dr Blas is requesting triage nurse to call results and determine plan. Thank you [facility]02-24-2025 Instructions* Patient Instructions* Stacie Schultz - 05/17/2024 3:07 PM EST Obtain images and reports of CT & US of the Neck & Head from [facility] from 12/2022-02/2023 CT Neck when available Triage to call results and determine plan documented in this encounterSelect Medical [facility]-24-2025 History of Present illness Narrative* Anibal Ash MD - 05/17/2024 2:40 PM EST Images from the original note were not included. NAME: Rafat Bella CLINIC NO.: [id number] DATE OF SERVICE: May 17, 2024 (Mihir) [...] US of the Neck & Head from [facility] from 12/2022-02/2023 CT Neck when available Triage to call results and determine plan ___ HPI: CASE HISTORY: Reverse Chronological Order 05/10/2024 - M-protein concentration: 0.60 02/02/2024 - CBC: 6.18 > 13.8 / 40.7 < 181, eGFR: 56, Creatinine: 1.28 Chapeno: 109.2, Lambda: 45.1, K/L Ratio: 2.42 IgA: [...] node. 01/17/2023 - Left parotid biopsy: at [facility] Atypia of undetermined significance 2017 - Completed [...] 02/07/2022. 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 He has no complaints. 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 Still off treatment and still has no evidence of disease. Overall is doing well. M spike remain undetectable and all other labs are stable. Kalry is with him. Updated Visit, December 18, [...] clot in January 2016. He went to [place] [facility] for fatigue and diagnosed with a [...] Revlimid. Had hospitalization in January 2017 to [place] and had a kyphoplasty for compression fracture. [...] Swelling of the mouth. MEDICATIONS: DEXCOM G7 CHARGEMASTER ANALYST misc USE AT HOME TO TEST BLOOD [...] kidney disease, unspecified CKD stage, 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) (N18.32) Stage 3b chronic [...] which included preparing to see the patient, [id number] patient care, completing clinical documentation, obtaining and/or reviewing separately obtained history, performing a medically appropriate examination, counseling and educating the patient/family/caregiver, ordering medications, tests, or procedures, independently interpreting results (not separately reported), communicating results to the patient/family/caregiver, and care coordination (not separately reported). Anibal Ash MD, CPE Hematology and Oncology Services Provided at: [place], [place] Scribe Attestation: This note was scribed [...] under my direction. CC: Danilo Clark MD [address] [place] [address] documented in this encounterSelect Medical [facility]02-24-2025 NoteWooster Community Hospital12-19-2024 History of Present illness Narrative* Jabier [...] and negative PT pedal pulses NEURO: 5.07 Palmer Bhavya monofilament test diminished to digits and forefoot bilaterally 125Hz tuning fork diminished to 1st MPJ bilaterally ORTHO: Positive pain on palpation to nails 1 through 10 Flexion deformities 2 through 5 digits bilaterally ASSESSMENT 1. Diabetes mellitus due to underlying condition with diabetic polyneuropathy, 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 ([facility]) 2. Pain due to onychomycosis of toenails [...] gear. Jabier Aldridge DPM documented in this encounterMercy Hospital [id number] Evaluation note* Diagnosis Multiple myeloma not having achieved remission (HCC)- Primary Multiple myeloma, without mention of having achieved remission Stage 3a chronic kidney disease (HCC) documented in this encounter [facility]11-18-2024 History of Present illness Narrative* Idalmis Basilio APRN.CHIPS SCREEN TENDER - 02/09/2024 1:40 PM EST Images from the original note were not included. NAME: Rafat Bella CLINIC NO.: [id number] DATE OF SERVICE: 02/09/2024 (Praful). Some elements [...] 40.7 < 181, eGFR: 56, Creatinine: 1.28 Chapeno: 109.2, Lambda: 45.1, K/L Ratio: 2.42 IgA: [...] 02/07/2022. 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 He has no complaints. [...] clot in January 2016. He went to [place] [facility] for fatigue and diagnosed with a [...] Revlimid. Had hospitalization in January 2017 to [place] and had a kyphoplasty for compression fracture. [...] Swelling of the mouth. MEDICATIONS: DEXCOM G7 CHARGEMASTER ANALYST misc USE AT HOME TO TEST BLOOD [...] Cancer Maternal Aunt . Idalmis Basilio APRN, J2EE ENGINEER-C, OCN Hematology and Oncology Services Provided at: [place], [place] CC: Danilo Clark MD [address] [place] [address] documented in this encounterSelect Medical [facility]11-18-2024 NoteWooster Community Hospital10-10-2024 History of Present illness Narrative* Jabier [...] and negative PT pedal pulses NEURO: 5.07 Palmer Bhavya monofilament test diminished to digits and forefoot bilaterally 125Hz tuning fork diminished to 1st MPJ bilaterally ORTHO: Positive pain on palpation to nails 1 through 10 Flexion deformities 2 through 5 digits bilaterally ASSESSMENT 1. Diabetes mellitus due to underlying condition with diabetic polyneuropathy, 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 ([facility]) 2. Pain due to onychomycosis of toenails [...] gear. Jabier Aldridge DPM documented in this encounterMercy Hospital [id number] Instructions* Patient Instructions* Stacie Banegas - 11/10/2023 2:07 PM EDT Repeat myeloma labs in 3 months RTC 1 week after to review labs documented in this encounterSelect Medical [facility]08-19-2024 History of Present illness Narrative* Anibal Ash MD - 11/10/2023 1:30 PM EDT Images from the original note were not included. NAME: Rafat Bella [facility] NO.: [id number] DATE OF SERVICE: November 10, 2023 (Mihir) [...] 02/07/2022. 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 He has no complaints. [...] clot in January 2016. He went to [place] ER for fatigue and diagnosed with a [...] Revlimid. Had hospitalization in January 2017 to [place] and had a kyphoplasty for compression fracture. [...] which included preparing to see the patient, gpxj-ab-pobx patient care, completing clinical documentation, performing a medically appropriate examination, counseling and educating the patient/family/caregiver, ordering medications, tests, or p rocedures, independently interpreting results (not separately reported), communicating results to the patient/family/caregiver, and care coordination (not separately reported). Anibal Ash MD, CPE Hematology and Oncology Services Provided at: [place], [place] Scribe Attestation: This note was scribed [...] my direction. CC: Danilo Clark MD [address] [facility] [id number] documented in this encounterSelect Medical [facility]06-17-2024 Telephone encounter Note * Telephone Encounter - Rafaela Rodriguez RN - 09/08/2023 8:02 AM EDT Anibal Ash MD 09/06/2023 9:12 AM EDT Hi Rafat - PET scan is negative for any myeloma holes in the bones. Pt' , Shira, informed of Wan's message and denies any questions, needs or concerns at this time. Appointment verified. Rafaela Rodriguez RN [facility]06-17-2024 Miscellaneous Notes* Telephone Encounter - Rafaela Rodriguez [...] scan results from 08-29-23. documented in this encounterSelect Medical Specialty [facility]06-07-2024 History of Present illness Narrative* Pratima Dang [...] 1253 PATIENT DISCHARGED TO: Ambulatory patient, left OR department area. A Diagnostic radioactive procedure has taken place, with no further precautions necessary other than routine body substance precautions. More information regarding radiation safety can be found usingthis link: [email or web address] SIGNATURE: RT Joon(Maria) PATIENT NAME: Rafat Bella DATE: August 29, 2023 TIME: 1:58 PM PAGER/CONTACT #: documented in this encounterSelect Medical [facility]05-20-2024 Telephone encounter Note * Telephone Encounter - Lori Christine - 08/11/2023 1:[address] Blas is requesting triage nurse to call Patient with his Pet scan results from 08-29-23. [facility]05-20-2024 Instructions* Patient Instructions* Stacie Banegas - 08/11/2023 1:21 PM EDT PET/CT whole body as soon as approved Triage to call results Repeat myeloma labs in 3 months RTC 1 week after to review labs documented in this encounterSelect Medical [facility]05-20-2024 Nurse Note* Madeleine Bradford MA - 08/11/2023 1:09 PM EDT Patient does have flank pain, his thinks it may be UTI, I did advise her to discuss with you but we could do a UA if it is ordered. Madeleine Schilling MA [facility]05-20-2024 Nurse Note* Madeleine Schilling MA - 08/11/2023 1:09 PM EDT Patient does have flank pain, his thinks it may be UTI, I did advise her to discuss with you but we could do a UA if it is ordered. Madeleine Schilling MA documented in this encounterSelect Medical [facility]05-20-2024 History of Present illness Narrative* Anibal Ash MD - 08/11/2023 1:00 PM EDT Images from the original note were not included. NAME: Rafat Bella [facility] NO.: [id number] DATE OF SERVICE: August 11, 2023 (Mihir) [...] today for follow up accompanied by his Kraly, with concerns over a spot behind his [...] 02/07/2022. 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 He has no complaints. [...] clot in January 2016. He went to [place] ER for fatigue and diagnosed with a [...] Revlimid. Had hospitalization in January 2017 to [place] and had a kyphoplasty for compression fracture. [...] which included preparing to see the patient, sveu-ap-tdyf patient care, completing clinical documentation, performing a medically appropriate examination, counseling and educating the patient/family/caregiver, ordering medications, tests, or p rocedures, independently interpreting results (not separately reported), communicating results to the patient/family/caregiver, and care coordination (not separately reported). Anibal Ash MD, CPE Hematology and Oncology Services Provided at: [place], [place] Scribe Attestation: This note was scribed [...] direction. 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 [employer] Other 05-11-2023 Evaluation note* Encounter Date Diagnosis Assessment Notes Treatment Notes Treatment Clinical Notes July, Type 2 diabetes mellitus with hy perglycemia (ICD-10 - E11.65) [employer] Other 04-12-2023 Evaluation note* Encounter Date Diagnosis Assessment Notes Treatment Notes Treatment Clinical Notes Jun, Bone metastases (ICD-10 - C79.51 ) [employer] Other 04-11-2023 Evaluation note* Encounter Date Diagnosis [...] Healthy diet, keep active and continue SSRI [employer] Other 03-10-2023 Evaluation note* Encounter Date Diagnosis Assessment Notes Treatment Notes Treatment Clinical Notes May, Type 2 diabetes shelia itus with diabetic polyneuropathy, 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 - E11.42) [employer] Other 02-08-2023 Evaluation note* Encounter Date Diagnosis Assessment Notes Treatment Notes Treatment Clinical Notes Apr, Type 2 diabetes mellitus with hy perglycemia (ICD-10 - E11.65) [employer] Other 02-07-2023 Evaluation note* Encounter Date Diagnosis Assessment Notes Treatment Notes Treatment Clinical Notes Apr, Type 2 diabetes mellitus with hy perglycemia (ICD-10 - E11.65) [employer] Other 01-10-2023 Evaluation note* Encounter Date Diagnosis [...] inspect BM daily for discoloration of bleeding [employer] Other [id number] Instructions* Patient Instructions* Anibal sAh MD - 02/11/2022 4:50 PM EST Repeat myeloma labs in 6 months RTC 1 week after to review labs documented in this encounter[facility]-21-[facility]22 History of Present illness Narrative* Anibal Ash MD - 02/11/2022 4:44 PM EST Images from the original note were not included. NAME: Rafat Bella [facility] NO[facility] [id number] DATE OF SERVICE: February 11, 2022 ([facility]) Some elements in this clinic note that [...] 02/07/2022. 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 He has no complaints. [...] clot in January 2016. He went to [place] [facility] for fatigue and diagnosed with a [...] Revlimid. Had hospitalization in January 2017 to [place] and had a kyphoplasty for compression fracture. [...] CPE Hematology and Oncology Services Provided at: [place], [place] CC: Danilo Clark MD [address] [facility] [id number] documented in this encounterSelect [facility]-21-2022 Nurse Note* Madeleine Schilling MA - 02/11/2022 9:07 AM EST Clinical questionnaires incomplete due to Patient was roomed by provider, phone call. Madeleine Schilling MA documented in this encounterSelect [facility]11-15-2022 History of Present illness Narrative* Anibal Ash MD - 02/05/2022 12:12 PM EST Patient will need to reschedule - he did not draw labs as requested / planned. documented in this encounterSelect [facility]11-11-2022 Nurse Note* Kira Dunlap Ma - 02/01/2022 4:14 PM EST Clinical questionnaires incomplete due to Patient was roomed by provider. Kira Dunlap Ma documented in this encounterSelect [facility]07-06-2021 Note [id number]#1.00[facility]07-05-2021 [id number] 09-20-2020 [facility] SURGERY Clinical Discharge Summary PERSON INFORMATION Name RAFAT BELLA Age 80 Years 1940 Sex MALE Language Kittitian PCP Danilo Clark Marital Status [facility] Service Ambulatory Surgery Acct# Arrival 09/20/2020 10:33:00 Visit Reason SURGERY -RIGHT CARPAL TUNNEL RELEASE Acuity LOS 007 04:12 Address: [address] [place] [address] [address] [facility] [address] Comment: PROVIDER INFORMATION VITALS INFORMATION Vital Sign [...] needed for pain. tamsulos (more content not included)...[facility] Diagnosis Multiple myeloma not having achieved remission (HCC)- Primary Multiple myeloma, without mention of having achieved remission documented in this encounter [facility]* Diagnosis 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) [C90.01 (ICD-10-CM)]- Primary Multiple myeloma in remission documented in this encounter [facility] noteNo Fieldoo[facility] Other Evaluation note* Diagnosis Parotid mass- Primary Swelling, mass, or lump in head and neck documented in this encounter [facility] Work Phone: Evaluation note* Diagnosis Onset Date Resolution Status Benign prostatic hyperplasia with lower urinary tract symptoms acuteChronic kidney diseaseacuteElevated cholesterolacuteType 2 diabetes mellitus with diabetic polyneuropathyacuteType 2 diabetes mellitus with hyperglycemiaacuteHTN (hypertension)chronicMultiple myelomachronic [facility] Work Phone: Evaluation note* Diagnosis Multiple myeloma not having achieved remission (HCC)- Primary Multiple myeloma, without mention of having achieved remission Flank pain Abdominal pain, unspecified site Mild episode of recurrent major depressive disorder (HCC) Thrombocytopenia (HCC) Thrombocytopenia, unspecified Stage 3b chronic kidney disease (HCC) Stage 3a chronic kidney disease (HCC) documented [facility]* Diagnosis Onset Date Resolution Status Benign prostatic hyperplasia with lower urinary tract symptoms acuteChronic kidney diseaseacuteElevated cholesterolacuteType 2 diabetes mellitus with diabetic polyneuropathyacuteType 2 diabetes mellitus with hyperglycemiaacuteHTN (hypertension)chronicMultiple myelomachronicAcute chest wall painacuteBack pain of thoracolumbar regionacuteChronic kidney diseaseacute Multiple myelomachronic [facility] Work Phone: Evaluation note* Diagnosis Onset Date Resolution Status Acute chest wall pain acuteBack pain of thoracolumbar regionacuteChronic kidney diseaseacuteMultiple myelomachronicBack pain of thoracolumbar regionacuteBenign prostatic hyperplasia with lower urinary tract symptomsacuteChronic kidney diseaseacuteElevated cholesterolacuteType 2 diabetes mellitus with diabetic polyneuropathyacuteType 2 diabetes mellitus with hyperglycemiaacuteHTN (hypertension)chronicMultiple [facility]omaPaul[facility] Work Phone: Evaluation note* Diagnosis Multiple myeloma not having achieved remission (HCC)- Primary Multiple myeloma, without mention of having achieved remission Stage 3a chronic kidney disease (HCC) Thrombocytopenia (HCC) Thrombocytopenia, unspecified documented in this encounter [facility]* Diagnosis Multiple myeloma not having achieved remission (HCC) Multiple myeloma, without mention of having achieved remission documented [facility]* Diagnosis Diabetes mellitus due to underlying condition with diabetic polyneuropathy, unspecified whether care home insulin use ([facility]/HCC)- Primary Pain due to onychomycosis of toenails of both feet Acquired deformity of right toe Acquired deformity of left toe [facility] Diagnosis Onset Date Resolution Status Back [...] 2 diabetes mellitus with hyperglycemiaacuteHTN (hypertension)chronicMultiple myelomachronic [facility] Work Phone: Evaluation note* Diagnosis Diabetes mellitus due to underlying condition with diabetic polyneuropathy, 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 ([facility]/HCC)- Primary Pain due to onychomycosis of toenails of both feet Acquired deformity of right toe Acquired deformity of left toe [facility]* Diagnosis Onset Date Resolution Status Admit Date Back pain of thoracolumbar region acuteJanuary 2024 1:22pmChronic kidney diseaseacuteJanuary 2024 1:22pmElevated cholesterolacuteJanuary 2024 1:22pmMass of left parotid glandacuteJanuary 2024 1:22pmType 2 diabetes mellitus with diabetic polyneuropathyacuteJanuary 2024 1:22pmType 2 diabetes mellitus with hyperglycemiaacuteJanuary 2024 1:22pmHTN (hypertension)chronicJanuary 2024 1:22pmMultiple myelomachronicJanuary 2024 1:22pm [facility] Work Phone: Evaluation note* Diagnosis Mass of ear auricle, left- Primary Multiple myeloma not having achieved remission (HCC) Multiple myeloma, without mention of having achieved remission Thrombocytopenia (HCC) Thrombocytopenia, unspecified Chronic anticoagulation Long-term (current) use of anticoagulants Type 2 diabetes mellitus with diabetic chronic kidney disease, unspecified CKD stage, unspecified whether care home insulin use ([facility]) Stage 3b chronic kidney disease (HCC) documented in this encounter [facility]* Diagnosis Mass of ear auricle, left Multiple myeloma not having achieved remission (HCC) Multiple myeloma, without mention of having achieved remission Thrombocytopenia (HCC) Thrombocytopenia, unspecified Chronic anticoagulation Long-term (current) use of anticoagulants documented in this [facility]* Diagnosis Parotid mass- Primary Swelling, mass, or lump in head and neck Multiple myeloma not having achieved remission (HCC) Multiple myeloma, without mention of having achieved remission documented in this encounter [facility]* Diagnosis Multiple myeloma not having achieved remission (HCC)- Primary Multiple myeloma, without mention of having achieved remission Parotid mass Swelling, mass, or lump in head and neck documented in this encounter [facility]* Diagnosis 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 Parotid mass Swelling, mass, or lump in head and neck documented in this [facility]* Diagnosis Onset Date Resolution Status Admit Date Back pain of thoracolumbar region acuteApril 2024 1:13pmElevated cholesterolacuteApril 2024 1:13pmMass of left parotid glandacuteApril 2024 1:13pmMedicare annual wellness visit, subsequentacuteApril 2024 1:13pmType 2 diabetes mellitus with diabetic polyneuropathyacuteApril 2024 1:13pmType 2 diabetes mellitus with hyperglycemiaacuteApril 2024 1:13pmHTN (hypertension)chronicApril 2024 1:13pmMultiple myelomachronicApril 2024 1:13pm [facility] Work Phone: Evaluation note* Diagnosis 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 Parotid mass Swelling, mass, or lump in head and neck documented in this encounter [facility]* Diagnosis 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 Parotid mass Swelling, mass, or lump in head and neck Multiple myeloma not having achieved remission (HCC) Multiple myeloma, without mention of having achieved remission documented in this encounter [facility]* Diagnosis Multiple myeloma not having achieved remission (HCC)- Primary Multiple myeloma, without mention of having achieved remission 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, unspecified CKD stage, unspecified whether care home insulin use (HCC) documented in this encounter [facility]* Diagnosis Mucoepidermoid carcinoma (HCC)- Primary Other malignant neoplasm without specification of site documented in this encounter [facility]* Diagnosis Palliative care by specialist- Primary Parotid neoplasm Neoplasm of unspecified nature of digestive system Multiple myeloma not having achieved remission (HCC) Multiple myeloma, without mention of having achieved remission 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 documented in this encounter [facility]* 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, unspecified CKD stage, 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) Anticoagulated Long-term (current) use [...] kidney disease, unspecified CKD stage, unspecified whether care home insulin use (HCC) Assessment: Managed with Humulin in morning and Bedtime CGM reports FBG 177 Hemoglobin A1C (%) Date Value 08/19/2024 7.5 12/01/2019 7.6 documented in this encounter [facility]* 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, unspecified CKD stage, 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) Anticoagulated Long-term (current) use [...] specification of site documented in this [facility]* Diagnosis Head and neck cancer (HCC)- Primary Malignant neoplasm of head, face, and neck Parotid neoplasm Neoplasm of unspecified nature of digestive system Parotid mass Swelling, mass, or lump in head and neck 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, unspecified CKD stage, 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) Anticoagulated Long-term (current) use of anticoagulants Stage 3b chronic kidney disease (HCC) Multiple myeloma not having achieved remission (HCC) Multiple myeloma, without mention of having achieved remission Chronic pain due to neoplasm Primary hypertension Unspecified essential hypertension BMI 37.0-37.9, adult Body Mass Index 37.0-37.9, adult 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 documented in this encounter [facility]* 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, unspecified CKD stage, 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) Anticoagulated Long-term (current) use [...] ear auricle, left documented in this encounter [facility] note* 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, unspecified CKD stage, 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) Anticoagulated Long-term (current) use [...] to opioid therapy documented in this [facility]* 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, unspecified CKD stage, unspecified whether care home insulin use (HCC) Anticoagulated Long-term (current) use [...] parotid gland (HCC) documented in this [facility]* Diagnosis Diabetes mellitus due to underlying condition with diabetic polyneuropathy, 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)- Primary Pain due to onychomycosis of toenails of both feet Acquired deformity of right toe Acquired deformity of left toe [facility]* Diagnosis Onset Date Resolution Status Admit Date Back pain of thoracolumbar region acuteJuly 2024 2:15pmElevated cholesterolacuteJuly 2024 2:15pmMass of left parotid glandacuteJuly 2024 2:15pmMucoepidermoid carcinoma of parotid glandacuteJuly 2024 2:15pmType 2 diabetes mellitus with diabetic polyneuropathyacuteJuly 2024 2:15pmType 2 diabetes mellitus with hyperglycemiaacuteJuly 2024 2:15pmHTN (hypertension)chronicJuly 2024 2:15pmMultiple myelomachronicJuly 2024 2:15pm [facility] Work Phone: Evaluation note* 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, unspecified CKD stage, 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) Anticoagulated Long-term (current) use [...] this encounter [facility]onHistory general Narrative - Reported* Type Description Date [...] kyphoplasty L101/31/17Hospitalization Historysee aboveHospitalization Historyimmmune system weakness [employer] Other History general Narrative - Reported* Type [...] mass 12/2022Hospitalization Historysee aboveHospitalization Historyimmmune system weakness [employer] Other History of Present illness Narrative* Julian [...] consent was obtained A/P: documented in this [facility] Work Phone: History of Present illness Narrative* [...] and negative PT pedal pulses NEURO: 5.07 Palmer Bhavya monofilament test diminished to digits and forefoot bilaterally 125Hz tuning fork diminished to 1st MPJ bilaterally ORTHO: Positive pain on palpation to toenails of the left 1,2,3,4,5 toes and right 1,2,3,4,5 toes Flexion deformities 2 through 5 digits bilaterally ASSESSMENT 1. Diabetes mellitus due to underlying condition with diabetic polyneuropathy, 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 ([facility]) 2. Pain due to onychomycosis of toenails [...] and negative PT pedal pulses NEURO: 5.07 Palmer Bhavya monofilament test diminished to digits and forefoot bilaterally 125Hz tuning fork diminished to 1st MPJ bilaterally ORTHO: Positive pain on palpation to toenails of the left 1,2,3,4,5 toes and right 1,2,3,4,5 toes Flexion deformities 2 through 5 digits bilaterally ASSESSMENT 1. Diabetes mellitus due to underlying condition with diabetic polyneuropathy, 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 ([facility]) 2. Pain due to onychomycosis of toenails [...] gear. Jabier Aldridge DPM documented in this encounterNOJohn [facility]. [facility] Discharge instructions Ambulatory Orders* Referral to Orthopedic Surgery Location: [facility] Work Phone: Reason for referral (narrative)* Diagnostic Procedure Only (Routine) - Additional Clinical Info NeededSpecialtyDiagnoses / ProceduresReferred By ContactReferred To ContactMOLECULAR & FUNCTIONAL IMAGING Diagnoses Multiple myeloma not having achieved remission (HCC) Procedures NM PET/CT WHOLE BODY SUBSEQUENT PET IMAGING FOR CT ATTENUATION WHOLE BODY Anibal Ash MD [address] [place] [address] [place] [address] Molecular & Functional Imaging [address] [place] [address] Referral IDStatusReasonStart DateExpiration DateVisits RequestedVisits [id number] Clinical Info Needed Auto-Generated Referral / [facility] for referral (narrative)* Diagnostic Procedure Only (Routine) - ClosedSpecialtyDiagnoses / ProceduresReferred By ContactReferred To ContactMOLECULAR & FUNCTIONAL IMAGING Diagnoses Multiple myeloma not having achieved remission (HCC) Procedures NM PET/CT WHOLE BODY SUBSEQUENT PET IMAGING FOR CT ATTENUATION WHOLE BODY Anibal Ash MD [address] [place] [address] [place] [address] Molecular & Functional Imaging [address] [place] [address] Referral IDStatusReasonStart DateExpiration DateVisits RequestedVisits [id number] Auto-Generated Referral / [facility] for referral (narrative)No reason for referral information availableNewark Hospital [facility]tr Work Phone: [facility] for visit Narrative* Consult, Test, Treat (Routine) - ClosedSpecialtyDiagnoses / ProceduresReferred By ContactReferred To Contact Diagnoses Mucoepidermoid carcinoma (HCC) Procedures REFER TO [facility] - PREOPERATIVE OPTIMIZATION OFFICE/OUTPATIENT [facility] 60 MINUTES Gurpreet Pang MD [address] [facility] [address] [place] [id number] Phone: tel: fax: Referral IDStatusReasonStart DateExpiration DateVisits RequestedVisits [id number] PCP Requested Referral [facility] Summary Purpose Family History Relationship Condition Age at Onset Recorded Date/T mayank father Unknown Malignant neoplasmUnknownNot SpecifiedDeceasedUnknownDiabetes mellitusUnknown sisterDeceasedUnknown Relationship Condition Age at Onset Recorded Date/T mayank father Unknown Malignant neoplasmUnknownmotherDeceasedUnknownDiabetes mellitusUnknownsister DeceasedUnknown Advance [...] 1:48pm Elevated cholesterol January 10, 2025 1:48pm FDC (current) use of anticoagulant s January 10, [...] section and content) DATE CREATED AUTHOR 09/15/2017 [facility] DATE CREATED AUTHOR AUTHOR'S ORGANIZ ATION 09/26/[address] [facility] DATE CREATED AUTHOR AUTHOR'S ORGANIZ ATION 08/30/2022 [facility] DATE CREATED AUTHOR AUTHOR'S ORGANIZ ATION 05/20/2023 [facility] DATE CREATED AUTHOR AUTHOR'S ORGANIZ ATION 05/24/2023 [facility] DATE CREATED AUTHOR AUTHOR'S ORGANIZ ATION 10/16/2024 [facility] DATE CREATED AUTHOR AUTHOR'S ORGANMISHA ATION 10/16/2024 [facility] DATE CREATED AUTHOR AUTHOR'S ORGANMISHA ATION 11/26/2024 [facility] Source Comments (unrecognize d section and content) In the event this informatio n is protected by the Federal Confidentiality of Alcohol and Drug Abuse Patient Records regulations: The Federal rules restrict any use of the information to criminally investigate or prosecute any alcohol or drug abuse patient.[facility]onIn the event this information is protected by the Federal Confidentiality of Alcohol and Drug Abuse Patient Records regulations: The Federal rules restrict any use of the information to criminally investigate or prosecute any alcohol or drug abuse patient.[facility]onIn the event this information is protected by the Federal Confidentiality of Alcohol and Drug Abuse Patient Records regulations: The Federal rules restrict any use of the information to criminally investigate or prosecute any alcohol or drug abuse patient.[facility]onIn the event this information is protected by the Federal Confidentiality of Alcohol and Drug Abuse Patient Records regulations: The Federal rules restrict any use of the information to criminally investigate or prosecute any alcohol or drug abuse patient.[facility]onIn the event this information is protected by the Federal Confidentiality of Alcohol and Drug Abuse Patient Records regulations: The Federal rules restrict any use of the information to criminally investigate or prosecute any alcohol or drug abuse patient.[facility]onIn the event this information is protected by the Federal Confidentiality of Alcohol and Drug Abuse Patient Records regulations: The Federal rules restrict any use of the information to criminally investigate or prosecute any alcohol or drug abuse patient.[facility]onIn the event this information is protected by the Federal Confidentiality of Alcohol and Drug Abuse Patient Records regulations: The Federal rules restrict any use of the information to criminally investigate or prosecute any alcohol or drug abuse patient.[facility]onIn the event this information is protected by the Federal Confidentiality of Alcohol and Drug Abuse Patient Records regulations: The Federal rules restrict any use of the information to criminally investigate or prosecute any alcohol or drug abuse patient.[facility]onIn the event this information is protected by the Federal Confidentiality of Alcohol and Drug Abuse Patient Records regulations: The Federal rules restrict any use of the information to criminally investigate or prosecute any alcohol or drug abuse patient.[facility]onIn the event this information is protected by the Federal Confidentiality of Alcohol and Drug Abuse Patient Records regulations: The Federal rules restrict any use of the information to criminally investigate or prosecute any alcohol or drug abuse patient.[facility]onIn the event this information is protected by the Federal Confidentiality of Alcohol and Drug Abuse Patient Records regulations: The Federal rules restrict any use of the information to criminally investigate or prosecute any alcohol or drug abuse patient.[facility]onIn the event this information is protected by the Federal Confidentiality of Alcohol and Drug Abuse Patient Records regulations: The Federal rules restrict any use of the information to criminally investigate or prosecute any alcohol or drug abuse patient.[facility]onIn the event this information is protected by the Federal Confidentiality of Alcohol and Drug Abuse Patient Records regulations: The Federal rules restrict any use of the information to criminally investigate or prosecute any alcohol or drug abuse patient.[facility]onIn the event this information is protected by the Federal Confidentiality of Alcohol and Drug Abuse Patient Records regulations: The Federal rules restrict any use of the information to criminally investigate or prosecute any alcohol or drug abuse patient.[facility]onIn the event this information is protected by the Federal Confidentiality of Alcohol and Drug Abuse Patient Records regulations: The Federal rules restrict any use of the information to criminally investigate or prosecute any alcohol or drug abuse patient.[facility]onIn the event this information is protected by the Federal Confidentiality of Alcohol and Drug Abuse Patient Records regulations: The Federal rules restrict any use of the information to criminally investigate or prosecute any alcohol or drug abuse patient.[facility]onIn the event this information is protected by the Federal Confidentiality of Alcohol and Drug Abuse Patient Records regulations: The Federal rules restrict any use of the information to criminally investigate or prosecute any alcohol or drug abuse patient.[facility]onIn the event this information is protected by the Federal Confidentiality of Alcohol and Drug Abuse Patient Records regulations: The Federal rules restrict any use of the information to criminally investigate or prosecute any alcohol or drug abuse patient.[facility]onIn the event this information is protected by the Federal Confidentiality of Alcohol and Drug Abuse Patient Records regulations: The Federal rules restrict any use of the information to criminally investigate or prosecute any alcohol or drug abuse patient.[facility]onIn the event this information is protected by the Federal Confidentiality of Alcohol and Drug Abuse Patient Records regulations: The Federal rules restrict any use of the information to criminally investigate or prosecute any alcohol or drug abuse patient.[facility]onIn the event this information is protected by the Federal Confidentiality of Alcohol and Drug Abuse Patient Records regulations: The Federal rules restrict any use of the information to criminally investigate or prosecute any alcohol or drug abuse patient.[facility]onIn the event this information is protected by the Federal Confidentiality of Alcohol and Drug Abuse Patient Records regulations: The Federal rules restrict any use of the information to criminally investigate or prosecute any alcohol or drug abuse patient.[facility]onIn the event this information is protected by the Federal Confidentiality of Alcohol and Drug Abuse Patient Records regulations: The Federal rules restrict any use of the information to criminally investigate or prosecute any alcohol or drug abuse patient.[facility]onIn the event this information is protected by the Federal Confidentiality of Alcohol and Drug Abuse Patient Records regulations: The Federal rules restrict any use of the information to criminally investigate or prosecute any alcohol or drug abuse patient.[facility]onIn the event this information is protected by the Federal Confidentiality of Alcohol and Drug Abuse Patient Records regulations: The Federal rules restrict any use of the information to criminally investigate or prosecute any alcohol or drug abuse patient.[facility]onIn the event this information is protected by the Federal Confidentiality of Alcohol and Drug Abuse Patient Records regulations: The Federal rules restrict any use of the information to criminally investigate or prosecute any alcohol or drug abuse patient.[facility]onIn the event this information is protected by the Federal Confidentiality of Alcohol and Drug Abuse Patient Records regulations: The Federal rules restrict any use of the information to criminally investigate or prosecute any alcohol or drug abuse patient.[facility]onIn the event this information is protected by the Federal Confidentiality of Alcohol and Drug Abuse Patient Records regulations: The Federal rules restrict any use of the information to criminally investigate or prosecute any alcohol or drug abuse patient.[facility]onIn the event this information is protected by the Federal Confidentiality of Alcohol and Drug Abuse Patient Records regulations: The Federal rules restrict any use of the information to criminally investigate or prosecute any alcohol or drug abuse patient.[facility]onIn the event this information is protected by the Federal Confidentiality of Alcohol and Drug Abuse Patient Records regulations: The Federal rules restrict any use of the information to criminally investigate or prosecute any alcohol or drug abuse patient.[facility]onIn the event this information is protected by the Federal Confidentiality of Alcohol and Drug Abuse Patient Records regulations: The Federal rules restrict any use of the information to criminally investigate or prosecute any alcohol or drug abuse patient.[facility]onIn the event this information is protected by the Federal Confidentiality of Alcohol and Drug Abuse Patient Records regulations: The Federal rules restrict any use of the information to criminally investigate or prosecute any alcohol or drug abuse patient.[facility]onIn the event this information is protected by the Federal Confidentiality of Alcohol and Drug Abuse Patient Records regulations: The Federal rules restrict any use of the information to criminally investigate or prosecute any alcohol or drug abuse patient.[facility] Reason for Visit (unrecogniz ed section and content) ReasonCommentsEstablished PatientReasonCommentsMassBack of earReasonComments Multiple Myeloma6 month follow upReasonCommentsResultsReasonCommentsMultiple MyelomaFollow upReasonCommentsRadiology NMSpecialtyDiagnoses / Procedures Referred By ContactReferred To ContactMOLECULAR & FUNCTIONAL IMAGING Diagnoses Multiple myeloma not having achieved remission (HCC) Procedures NM PET/CT WHOLE BODY SUBSEQUENT PET IMAGING FOR CT ATTENUATION WHOLE BODY Anibal Ash MD [address] [place] [address] [place] [address] Molecular & Functional Imaging [address] [id number] Referral IDStatusReasonStart DateExpiration DateVisits RequestedVisits [id number] Auto-Generated Referral /[id number] CareNon dm nail careReasonComments Multiple Myeloma3 month follow upReasonCommentsMultiple MyelomaFollow upReason CommentsDM Foot CareDm nail careReasonCommentsRadiology CTSpecialtyDiagnoses / ProceduresReferred By ContactReferred To ContactCT IMAGING Diagnoses Mass of ear auricle, left Multiple myeloma not having achieved remission (HCC) Thrombocytopenia (HCC) Chronic anticoagulation Procedures CT NECK SOFT TISSUE W IVCON CT SOFT TISSUE NECK W/CONTRAST MATERIAL Anibal Ash MD [address] [place] [address] [place] [address] Phone: tel: fax: [facility] [place] [address] Referral IDStatusReasonStart DateExpiration DateVisits RequestedVisits [id number] Auto-Generated Referral /[id number] AppointmentReasonCommentsNew Patient Parotid massSpecialtyDiagnoses / ProceduresReferred By ContactReferred To ContactEnt - Otolaryngology Diagnoses Parotid mass Procedures CONSULT TO ENT OFFICE/OUTPATIENT [facility] 60 MINUTES Anibal Ash MD [address] [place] [address] [place] [address] Phone: tel: fax: Referral IDStatusReasonStart DateExpiration DateVisits RequestedVisits [id number] PCP Requested Referral /[id number] [id number]- [place] Initial ConsultReasonCommentsENT Path resultsReasonCommentsFollow UpFollow up ReasonCommentsMultiple MyelomaReasonCommentsPalliative CareConsultSpecialty Diagnoses / ProceduresReferred By ContactReferred To ContactHospice & Palliative Medicine Diagnoses Parotid neoplasm Parotid mass Procedures CONSULT TO PALLIATIVE CARE OFFICE/OUTPATIENT [facility] MDM 60 MINUTES Gurpreet Pang MD [address] [place] [address] Phone: tel: fax: Referral IDStatusReasonStart DateExpiration DateVisits RequestedVisits [id number] PCP Requested Referral /[id number] Gen RMPReasonCommentsAnticoagulation Follow UpReasonCommentsOpened In ErrorReasonOnset DateCommentsSimulation Request Form08/18/2024SpecialtyDiagnoses / ProceduresReferred By ContactReferred To ContactRadiation Oncology Diagnoses Parotid neoplasm Parotid mass Procedures RAD/ONC CONSULT OFFICE/OUTPATIENT [facility] MDM 60 MINUTES Gurpreet Pang MD [address] [place] [address] Phone: tel: fax: Referral IDStatusReasonStart DateExpiration DateVisits RequestedVisits [id number] PCP Requested Referral [id number] QuestionReasonCommentsPalliative Care ReasonCommentsFollow UpPost opReasonCommentsDM Foot Care [...] Care Provider Active Start: September 18, 2024 Raguh Manning ProviderActiveStart: September 18, 2024 Team Status: [...] Date Danilo Clark DO PCP - GeneralInternal [facility]10/29/16 Team Status: Active Member Role Status Dates [...] End Date Danilo Clark MD [address] [place] [phone] PCP - GeneralInternal Drpopwyl83/3/23Team MemberRelationshipSpecialtyStart Date End Date Danilo Clark MD [address] [place] [address] PCP - [facility]01/24/23 Team Status: Active Member Role Status Dates Danilo Clark DO Primary Care Provider Active Start: November 03, 2023 Anibal Ash , MARCUSttending ProviderActiveStart: November 03, 2023 Team Status: Inactive Member Role Status Dates Danilo Clark DO Primary Care Provide r, Attending Provider Active Start: January 12, 2024 End: January 12, 2024Team MemberRelationshipSpecialtyStart DateEnd Date Danilo Clark DO PCP - [facility]10/29/16Team MemberRelationshipSpecialtyStart Date End Date Danilo Clark MD [address] [place] [phone] PCP - [facility]01/24/23 Team Status: Active Member Role Status [...] End Date Danilo Clark [facility]10/29/16Team MemberRelationshipSpecialtyStart Date End Date Danilo Clark DO PCP - GeneralInternal Medicine10/29/16Team MemberRelationshipSpecialtyStart Date End Date Danilo Clark DO [facility]10/29/16 Team Status: Active Member Role Status Dates Danilo Clark DO Primary Care Provider Active Start: May 10, 2024 Idalmis Basilio APRN [employer] ENGINEER-CAttending ProviderActiveStart: May 10, 2024 Team Status: Inactive Member Role Status Dates Danilo Clark DO Primary Care Provide r, Attending Provider Active Start: July 14, 2024 End: July 14, 2024Team MemberRelationshipSpecialtyStart DateEnd Date Danilo Clark DO PCP - [facility]10/29/16Team MemberRelationshipSpecialtyStart Date End Date Danilo Clark DO PCP - [facility]10/29/16Team MemberRelationshipSpecialtyStart Date End Date Danilo Clark DO [address] [place] [address] [facility] - [facility] Miqaydgb03/3/23Team MemberRelationshipSpecialtyStart Date End Date Danilo Clark DO [address] [place] [address] [facility] - [facility] Bgvrjdob79/3/23Team MemberRelationshipSpecialtyStart Date End Date Danilo Clark DO PCP - GeneralInternal [facility]10/29/16Team MemberRelationshipSpecialtyStart Date End Date Danilo Clark, DO PCP - [facility]10/29/16 MemberRelationshipSpecialtyStart Date End Date Danilo Clark, DO PCP - [facility]10/29/16 MemberRelationshipSpecialtyStart Date End Date Danilo Clark, DO PCP - [facility]10/29/16 MemberRelationshipSpecialtyStart Date End Date Danilo Clark DO PCP - [facility]10/29/16 MemberRelationshipSpecialtyStart Date End Date Danilo Clark DO PCP - [facility]10/29/16 MemberRelationshipSpecialtyStart Date End Date Danilo Clark DO PCP - [facility]10/29/16 MemberRelationshipSpecialtyStart Date End Date Danilo Clark DO PCP - [facility]10/29/16 MemberRelationshipSpecialtyStart Date End Date Danilo Clark DO PCP - [facility]10/29/16am MemberRelationshipSpecialtyStart Date End Date Danilo Clark DO PCP - [facility]10/29/16Team MemberRelationshipSpecialtyStart Date End Date Danilo Clark DO PCP - [facility]10/29/16Team MemberRelationshipSpecialtyStart Date End Date Danilo Clark DO PCP - [facility]10/29/16 Team Status: Active Member Role/Relationship Status [...] BE BASED ON THE PRIMARY CLINICAL RECORDS. [employer] [facility]. provides no warranty or guarantee of the accuracy or completeness of information in this document.
[2025-01-12] MEDS: GABAPENTIN 100 MG CAPSULE PO (22:35)
[2025-01-12] MEDS: RIVAROXABAN 10 MG TABLET 15 MG PO (22:35)
[2025-01-12] MEDS: INSULIN ASPART 300 UNIT/3 ML PEN SUBQ (22:35)
[2025-01-13] VITALS (23 sets, daily range): BP systolic 144–169; BP diastolic 74–96; PULSE 71–101; TEMP 36.6–37; O2SAT 92–95
[2025-01-13 03:30] LABS: Glucose Urine UA NEGATIVE (NEGATIVE)
[2025-01-13 03:36] LABS: Cast Seen? NONE SEEN #/LPF (NONE SEEN); Crystals Seen? None Seen #/HPF (None Seen); Urine Culture Indicated NO
[2025-01-13 05:36] LABS: Hematocrit 39.1 % (42.0-54.0); Hemoglobin 13.2 g/dL (14.0-18.0); Immature Granulocytes Abs Auto 0.03 10^3/uL (0.00-0.03); Immature Granulocytes Pct Auto 0.4 % (0.0-0.5); Lymphocytes Absolute Auto 1.9 10^3/uL (1.2-3.8); Mean Corpuscular HGB Conc 33.8 g/dL (29.9-35.2); Mean Corpuscular Hemoglobin 30.5 pg (25.9-34.0); Mean Corpuscular Volume 90.3 fL (80.0-94.0); Platelet Count 177 10^3/uL (150-450); Red Blood Count 4.33 10^6/uL (4.70-6.10); White Blood Count 7.8 10^3/uL (4.0-11.0)
[2025-01-13] MEDS: GABAPENTIN 100 MG CAPSULE PO ×3 (05:39→21:28)
[2025-01-13 05:50] LABS: INR 3.44; Prothrombin Time 32.3 sec (9.0-11.6)
[2025-01-13 06:06] LABS: Alanine Aminotransferase 23 U/L (16-63); Albumin Globulin Ratio 0.8; Albumin Level 3.2 g/dL (3.4-5.0); Alkaline Phosphatase 82 U/L (46-116); Anion Gap 12.2; Aspartate Amino Transferase 22 U/L (15-37); Blood Urea Nitrogen 19.0 mg/dL (7.0-18.0); Calcium 8.8 mg/dL (8.5-10.1); Carbon Dioxide 25.6 mmol/L (21.0-32.0); Chloride 101 mmol/L (98-107); Estimated GFR (African America 60 (>=60 mL/min/1.73m^2); Estimated GFR (Non-African Ame 49 (>=60 mL/min/1.73m^2); Globulin 3.9 g/dL; Glucose 200 mg/dL (74-106); Magnesium 1.7 mg/dL (1.8-2.4); NT Pro B Type Natriuretic Pept 573.0 pg/mL (<=1800.0); Potassium 3.8 mmol/L (3.5-5.1); Sodium 135 mmol/L (136-145); Total Protein 7.1 g/dL (6.4-8.2)
--- NOTE | 2025-01-13 06:47 | CA_ITS ---
Patient Name: CARLEY BELLA MR#: [id number] : 1940 Exam Date: 01/13/2025 Ordering Doctor: VANNA CARRION ECHOCARDIOGRAM REPORT PROCEDURE: CA ECHO DOPPLER COMPLETE INDICATIONS: CHF PE COMPARISON: None. DESCRIPTION: COMPLETE ECHOCARDIOGRAM Real-time transthoracic echocardiography with 2D, M-mode, spectral and color flow Doppler performed. QUALITY: Technical quality was adequate. LEFT VENTRICLE: Normal chamber size. Moderate concentric hypertrophy. Global left ventricular systolic function is normal. LV EF: Estimated left ventricular ejection fraction is 55-60%. DIASTOLIC: Normal diastolic function. ATRIAL SEPTUM: LEFT ATRIUM: Normal chamber size. RIGHT ATRIUM: Mild dilatation. RIGHT VENTRICLE: Normal chamber size. Normal right ventricular systolic function. TRICUSPID VALVE: Normal mobility and thickness. No stenosis with trivial regurgitation. Unable to assess right-sided pressures due to lack of measurable tricuspid regurgitation. MITRAL VALVE: Normal mobility and thickness. No evidence of mitral valve stenosis. There is no mitral annular calcification. No mitral regurgitation. AORTIC VALVE: Normal trileaflet appearance. Mildly calcified aortic valve. Normal leaflet mobility. No evidence of aortic valve stenosis. Trivial aortic regurgitation. AORTIC ROOT: Upper normal in size, measuring 4.0 cm. PULMONIC VALVE: Normal thickness and mobility. No stenosis. No regurgitation. PERICARDIUM: No evidence of pericardial effusion. IVC: Collapses with inspiration. Normal size. PLEURA: CONCLUSION: 1. Moderate concentric left ventricular hypertrophy with normal systolic function. LVEF is 55-60%. 2. Normal right ventricular size and systolic function. 3. No significant valvular dysfunction. 4. Unable to assess right-sided pressures due to lack of measurable tricuspid regurgitation. Adult Echocardiography Procedure Report Left Ventricle LVEDD (3.7 - 5.6 cm): 4.12 cm LVESD (2.2 - 4.0 cm): 2.83 cm LVIVS thickness (0.6 - 1.2 cm): 1.50 cm LVPW thickness (0.5 - 1.0 cm): 1.19 cm e': 0.09 m/s E - e': 6.97 LVOT Max Gradient: 3.68 mm[Hg] LVOT Area (cm2): 0.96 m/s Peak Velocity (LVOT): 0.96 m/s Mean Velocity (LVOT): 0.71 m/s LVOT Diameter 2.15 cm Left Ventricular Ejection Fraction: 55-60 % Left Atrium LA Volume Index (2D A2C): 35.07 ml/m2 Left Atrium Systolic Dimension: 4.14 cm Mitral Valve MV E to A Ratio: 0.56 Mitral Valve A-Wave Peak Velocity: 1.14 m/s Mitral Valve E-Wave Peak Velocity: 0.64 m/s Right Ventricle RV Internal Diastolic Dimension: 3.27 cm Aorta AO Root Diam: 4.03 cm Aortic Valve AoV Area (Peak Frantz): 2.44 cm2, 2.44 cm2 AoV Area (VTI): 2.96 cm2, 2.96 cm2 Peak Velocity(Antegrade Flow): 1.43 m/s Peak Gradient(Antegrade Flow): 8.19 mm[Hg] Mean Velocity(Antegrade Flow): 0.99 m/s Mean Gradient(Antegrade Flow): 4.48 mm[Hg] Velocity Time Integral: 25.47 cm Tricuspid Valve Peak Velocity (Regurgitant Flow): Pulmonic Valve Mean Gradient: 2.40 mm[Hg] Mean Velocity: 0.74 m/s Peak Velocity: 1.03 m/s Peak Gradient: 4.24 mm[Hg] Right Atrium Right Atrium Systolic Pressure: 55.83 ml, 55.83 ml Dictated by: Sylvester Li M.D. on 01/13/2025 at 18:07 Approved by: Sylvester Li M.D. on 01/13/2025 at 18:12
--- NOTE | 2025-01-13 08:00 | ECG_ITS ---
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 Measurements Intervals [place] Rate: 82 P: GA: 187 QRS: 14 QRSD: 84 T: 52 QT: 358 QTc: 419 Interpretive Statements NORMAL SINUS RHYTHM NONSPECIFIC T-WAVE ABNORMALITY Abnormal ECG Compared to ECG 01/12/2025 16:27:33 T-wave abnormality now present First degree AV block no longer present Electronically Signed On 01-13-2025 19:17:13 EDT by CALI SAMUELS M.D.
[2025-01-13] MEDS: INSULIN ASPART 300 UNIT/3 ML PEN SUBQ ×4 (08:15→21:28)
[2025-01-13] MEDS: MULTIVITAMIN TABLET 1 TAB PO (09:16)
[2025-01-13] MEDS: ESCITALOPRAM 10 MG TABLET PO (09:16)
[2025-01-13] MEDS: TAMSULOSIN HCL 0.4 MG CAPSULE PO (09:17)
[2025-01-13] MEDS: LOSARTAN POTASSIUM 50 MG TABLET PO (09:17)
[2025-01-13] MEDS: RIVAROXABAN 10 MG TABLET 15 MG PO ×2 (09:19→21:26)
[2025-01-13] MEDS: PNEUMOC 20-VAL CONJ-DIP CRM/PF 0.5 ML SYRINGE IM (10:54)
--- NOTE | 2025-01-13 11:29 | SWNOTE1 ---
Important Message from Medicare reviewed and discussed with patient. Pt. verbalized understanding and signed the form. Original given to patient and copy placed in patient?s chart.
--- NOTE | 2025-01-13 11:29 | SWNOTE1 ---
RUTHANN met with pt and in room. Pt voiced he is feeling alright. Pt does have a cane and walker at home, but he only uses when he is out and about. Pt does not have any services coming in at this time. Pt and deny any discharge needs. Pt's did bring in his health care RUTHANN MURDOCK to see if we have a copy on file.
--- NOTE | 2025-01-13 11:30 | SWNOTE1 ---
Important Message from Medicare reviewed and discussed with patient and pt's . They verbalized understanding and pt's signed the form. Original given to patient's and copy placed in patient?s chart.
--- NOTE | 2025-01-13 11:53 | CM.NOTE ---
Rounds made with Dr. Raman, discussed plan of care with pt. Possible discharge today pending ECHO results.
--- NOTE | 2025-01-13 12:17 | PM.IMHP1 ---
Internal Medicine - H&P: HPI History of Present Illness Chief complaint: CHEST PAINS, PULMONARY EMBOLISM, CHF Narrative: This is an 84-year-old male with past medical history of hypertension, BPH, psoriasis, skin cancer, type 2 diabetes, CKD, multiple myeloma, dyslipidemia, blood clot not sure what exactly on warfarin, who presented to the ED for 24-hour of chest pain, he described the pain as left-sided not sure of the nature 05/31 continuous no radiation or referral no relieving factors, worse with breathing or moving or coughing or taking a breath. No nausea no vomiting, no palpitations, no fever no chills. Labs in the ED included slight anemia on his CBC, CMP with creatinine of 1.38 which is similar to his chronic kidney disease history, his NR was 2.42 yesterday and today is 3.44. Chest x-ray did show CHF. CT of the chest did show right lower lobe pulmonary embolism with no saddle embolism or heart strain. Cardiomegaly with coronary artery disease scattered lucent lesions suggesting multiple myeloma Patient was admitted for further workup and management by my colleague. I am seeing him today, he is not in respiratory distress and saturating well on room air 93%, states that his chest pain is somewhat better however it is still there. No fever no chills. He does have follow-up visit with his oncologist, Dr. Barnett in [place] ([facility]). Review of Systems ROS Status of ROS 10 or more systems reviewed and unremarkable except as noted in history and below [facility] Medical History Skin cancer ?C44.90 - Unspecified malignant neoplasm of skin, unspecified (ICD-10) BPH (benign prostatic hyperplasia) ?N40.0 - Benign prostatic hyperplasia without lower urinary tract symptoms (ICD-10) High cholesterol ?E78.00 - Pure hypercholesterolemia, unspecified (ICD-10) HTN (hypertension) ?I10 - Essential (primary) hypertension (ICD-10) Psoriasis ?L40.9 - Psoriasis, unspecified (ICD-10) Multiple myeloma ?C90.00 - Multiple myeloma not having achieved remission (ICD-10) GI bleed ?K92.2 - Gastrointestinal hemorrhage, unspecified (ICD-10) Diabetes ?E11.9 - Type 2 diabetes mellitus without complications (ICD-10) Surgical History S/P fine needle aspiration ?Z98.890 - Other specified postprocedural states (ICD-10) Status post surgical removal of malignant neoplasm of skin ?Z98.890 - Other specified postprocedural states (ICD-10) History of surgery on arm ?Z98.890 - Other specified postprocedural states (ICD-10) History of tonsillectomy and adenoidectomy ?Z90.89 - Acquired absence of other organs (ICD-10) H/O kyphoplasty ?Z98.890 - Other specified postprocedural states (ICD-10) H/O colonoscopy ?Z98.890 - Other specified postprocedural states (ICD-10) Family History (Updated 01/13/25 @ 01:03 by Maria Castellanos RN) Mother Family history of colon cancer Family history of diabetes mellitus Father Family history of colon cancer Grandmother Family history of diabetes mellitus Social History Highest level of school completed/degree received: some college, no degree Little interest or pleasure in doing things: not at all Feeling down, depressed, or hopeless: not at all Meds Home Medications and Allergies Home Medications ?Medication ?Instructions ?Recorded ?Confirmed ?Type ascorbic acid (vitamin C) 500 mg 500 mg PO DAILY 01/13/23 01/12/25 History tablet atorvastatin 20 mg tablet 20 mg PO QPM 01/13/23 01/12/25 History escitalopram oxalate 10 mg tablet 10 mg PO DAILY 01/13/23 01/12/25 History gabapentin 100 mg capsule 100 mg PO TID 01/13/23 01/12/25 History losartan 50 mg tablet 75 mg PO DAILY 01/13/23 01/12/25 History multivitamin 1 tab PO DAILY 01/13/23 01/12/25 History tamsulosin 0.4 mg capsule 0.4 mg PO DAILY 01/13/23 01/12/25 History warfarin 2.5 mg tablet 2.5 mg PO .6 days a week 01/13/23 01/12/25 History warfarin 5 mg tablet 5 mg PO QWEEK 01/13/23 01/12/25 History insulin NPH-regular 70-30 U-100 25 unit subcut DAILY 01/12/25 01/12/25 History insulin 100 unit/mL subcutaneous pen (Humulin 70/30 U-100 KwikPen) insulin NPH-regular 70-30 U-100 45 unit subcut QAM 01/12/25 01/12/25 History insulin 100 unit/mL subcutaneous pen (Humulin 70/30 U-100 KwikPen) Allergies Allergy/AdvReac Type Severity Reaction Status Date / Time Penicillins Allergy edema Verified 01/12/25 16:30 Exam Narrative Exam Narrative: General:The patient appears well and in no apparent distress.very pleasant and cooperative, lying comfortably in bed and earlier saw him he was sitting up in the chair. Skin:Warm, dry, no pallor noted.There is no rash noted. Head:Normocephalic, atraumatic Eye: Normal conjunctiva, no drainage Ears, Nose, Mouth, and Throat: oral mucosa is moist. Nares patent. Cardiovascular:Regular Rate and Rhythm Respiratory:Patient is in no distress, no accessory muscle use, lungs are clear to auscultation, no wheezing, rales or rhonchi Back:non-tender, he does have a skin lesion on his upper back that he knows about appears to be like a melanoma versus nevus GI: Soft and nontender Musculoskeletal: The patient has no evidence of calf tenderness, no pitting edema, symmetrical pulses noted bilaterally Neurological:A&O, normal speech, CN nerves II to XII are intact, no focal deficit Constitutional Vital Signs, click to edit/add: Last Vital Signs Temp 97.9 F 01/13/25 08:06 Pulse 71 01/13/25 12:00 Resp 18 01/13/25 08:45 BP 159/84 H 01/13/25 08:06 Pulse Ox 93 L 01/13/25 11:30 O2 Del Method Room Air 01/13/25 11:30 O2 Flow Rate 2 01/12/25 19:30 Internal Medicine - H&P: Reslt Labs Labs: Short CBC 01/12/25 01/13/25 Range/Units 16:57 05:03 WBC 10.8 7.8 (4.0-11.0) 10^3/uL Hgb 14.1 13.2 L (14.0-18.0) g/dL Hct 41.9 L 39.1 L (42.0-54.0) % Plt Count 174 177 (150-450) 10^3/uL BMP 01/12/25 01/13/25 16:57 05:03 Sodium 139 135 L Potassium 4.4 3.8 Chloride 104 101 Carbon Dioxide 26.5 25.6 BUN 18.0 19.0 H Creatinine 1.41 H 1.38 H Glucose 171 H 200 H Calcium 9.6 8.8 Liver Function 01/13/25 Range/Units 05:03 Total Bilirubin 0.8 (0.2-1.0) mg/dL AST 22 (15-37) U/L ALT 23 (16-63) U/L Alkaline Phosphatase 82 (46-116) U/L Albumin 3.2 L (3.4-5.0) g/dL Urine 01/13/25 Range/Units 03:00 Urine Color Lt. yellow (YELLOW) Urine Clarity Clear (CLEAR) Urine pH 5.5 (5.0-9.0) Ur Specific [place] 1.010 (1.005-1.025) Urine Protein Trace (NEG/TRACE) mg/dL Urine Glucose (UA) Negative (NEGATIVE) mg/dL Assessment and Plan Assessment and Plan (1) Pulmonary embolism: (2) Congestive heart failure: Plan Chest pain pleuritic in the setting of PE History of multiple Aloma, he is currently on warfarin (not sure for what reason) so warfarin failure is considered likely in the setting of hypercoagulable state Multiple comorbidities including CHF, multiple myeloma, frailty - Patient admitted to medical floor with telemetry - Was started on p.o. Xarelto by the nighttime hospitalist which we will continue - Pending echo and venous Dopplers lower extremity - Patient is not overloaded so I would refrain from giving him Lasix - Will order a Lexiscan stress test tomorrow if there is wall motion abnormalities on the echo - Discussed with him and his the plan of management, he is full code as he told me I did updated in the chart - He will need to follow-up with his PCP and and dermatology regarding the back lesion that he has but he states that his doctor already knows about it
--- NOTE | 2025-01-13 12:25 | ECG_ITS ---
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 Measurements Intervals [place] Rate: 74 P: 22 MS: 236 QRS: 15 QRSD: 95 T: 56 QT: 386 QTc: 430 Interpretive Statements SINUS RHYTHM WITH FIRST DEGREE AV BLOCK NONSPECIFIC T-WAVE ABNORMALITY Compared to ECG 01/13/2025 05:31:42 First degree AV block now present T-wave abnormality still present Electronically Signed On 01-13-2025 19:19:13 EDT by CALI SAMUELS M.D.
[2025-01-13] MEDS: [UNRECOGNIZED DRUG - OTHER] SUBQ (17:55)
[2025-01-13] MEDS: INSULIN NPH AND REGULAR HUMAN SUBQ (17:55)
[2025-01-13] MEDS: ATORVASTATIN CALCIUM 20 MG TABLET PO (21:26)
[2025-01-14] VITALS (10 sets, daily range): BP systolic 151–163; BP diastolic 84–89; PULSE 83–100; TEMP 36.8–36.9; O2SAT 86–93
[2025-01-14] MEDS: GABAPENTIN 100 MG CAPSULE PO (05:11)
[2025-01-14 05:54] LABS: Hematocrit 39.8 % (42.0-54.0); Hemoglobin 13.3 g/dL (14.0-18.0); Immature Granulocytes Abs Auto 0.01 10^3/uL (0.00-0.03); Immature Granulocytes Pct Auto 0.1 % (0.0-0.5); Lymphocytes Absolute Auto 1.5 10^3/uL (1.2-3.8); Mean Corpuscular HGB Conc 33.4 g/dL (29.9-35.2); Mean Corpuscular Hemoglobin 30.2 pg (25.9-34.0); Mean Corpuscular Volume 90.2 fL (80.0-94.0); Platelet Count 176 10^3/uL (150-450); Red Blood Count 4.41 10^6/uL (4.70-6.10); White Blood Count 7.1 10^3/uL (4.0-11.0)
[2025-01-14 06:11] LABS: Alanine Aminotransferase 22 U/L (16-63); Albumin Globulin Ratio 0.7; Albumin Level 3.0 g/dL (3.4-5.0); Alkaline Phosphatase 79 U/L (46-116); Anion Gap 16.6; Aspartate Amino Transferase 25 U/L (15-37); Blood Urea Nitrogen 22.0 mg/dL (7.0-18.0); Calcium 8.7 mg/dL (8.5-10.1); Carbon Dioxide 23.3 mmol/L (21.0-32.0); Chloride 102 mmol/L (98-107); Estimated GFR (African America 60 (>=60 mL/min/1.73m^2); Estimated GFR (Non-African Ame 49 (>=60 mL/min/1.73m^2); Globulin 4.2 g/dL; Glucose 209 mg/dL (74-106); Potassium 3.9 mmol/L (3.5-5.1); Sodium 138 mmol/L (136-145); Total Protein 7.2 g/dL (6.4-8.2)
[2025-01-14] MEDS: INSULIN ASPART 300 UNIT/3 ML PEN SUBQ (08:09)
[2025-01-14] MEDS: [UNRECOGNIZED DRUG - OTHER] SUBQ (08:10)
[2025-01-14] MEDS: INSULIN NPH AND REGULAR HUMAN SUBQ (08:10)
[2025-01-14] MEDS: ESCITALOPRAM 10 MG TABLET PO (09:11)
[2025-01-14] MEDS: TAMSULOSIN HCL 0.4 MG CAPSULE PO (09:11)
[2025-01-14] MEDS: MULTIVITAMIN TABLET 1 TAB PO (09:11)
[2025-01-14] MEDS: LOSARTAN POTASSIUM 50 MG TABLET PO (09:11)
[2025-01-14] MEDS: RIVAROXABAN 10 MG TABLET 15 MG PO (09:11)
--- NOTE | 2025-01-14 09:40 | CM.NOTE ---
Rounded with . Patient will be discharged today. CM to call for pricing of the Xarelto.
--- NOTE | 2025-01-14 10:57 | P.DS_ITS ---
DS: Providers Provider Date of admission: 01/12/25 19:47 Primary care physician: Danilo Thakkar DO Consults: 01/13/25 12:34 Physical Therapy Eval and Treat Routine Reason for consultation: multiple comorbidities weakness DS: Diagnosis Discharge Diagnosis (1) Pulmonary embolism: Plan Chest pain pleuritic in the setting of right lower lobe pulmonary embolism, no saddle embolism or right heart strain History of multiple myeloma, he is currently on warfarin (not sure for what reason) so warfarin failure is considered likely in the setting of hypercoagulable state Multiple comorbidities including CHF, multiple myeloma, frailty DS: Summary Hospital Course Hospital Course: This is an 84-year-old male with past medical history of hypertension, BPH, psoriasis, skin cancer, type 2 diabetes, CKD, multiple myeloma, dyslipidemia, blood clot not sure why exactly on warfarin, who presented to the ED for 24-hour of chest pain, he described the pain as left-sided not sure of the nature / continuous no radiation or referral no relieving factors, worse with breathing or moving or coughing or taking a breath. No nausea no vomiting, no palpitations, no fever no chills. Labs in the ED included slight anemia on his CBC, CMP with creatinine of 1.38 which is similar to his chronic kidney disease history, his INR seems therapeutic. chest x-ray did show CHF. CT of the chest did show right lower lobe pulmonary embolism with no saddle embolism or heart strain. Cardiomegaly with coronary artery disease scattered lucent lesions suggesting multiple myeloma Patient was admitted for further workup and management by my colleague. He does have follow-up visit with his oncologist, Dr. Barnett in [place] ([facility]). During hospital course, patient was placed on Xarelto for anticoagulation, venous Doppler and echocardiogram was obtained. Echocardiogram showed moderate LVH, normal systolic function and normal EF and LV function. Unable to assess right-sided pressures due to lack of measurable tricuspid regurgitation. Patient reports improvement in his symptoms as of today denies any significant chest pain, saturating well on room air, he ambulated in the room with no issues and feels much better and eager to go home. Discussed with patient and at bedside. They do not recall why patient has been on warfarin which seems to be for many years and patient seems to have therapeutic INR on admission here and still developed PE. 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 Randolph for his multiple myeloma and now he has follow-up with Dr. Barnett which he supposed to see him soon after discharge. Patient has been placed on DOAC here with Xarelto which we will continue for now VTE protocol with 50 mg twice daily for 21 days followed by 20 mg daily. Patient was provided with prescription and verbal and written instructions upon discharge. Discussed with patient and at bedside, all questions answered, patient in agreement and comfortable with the plan. Patient has multiple complex medical issues as listed above and others that are not listed. All appear to be stable at this time. Patient is feeling significantly better and feeling comfortable with this plan of discharge. I do not have any clear or strong clinical justification to extend inpatient hospitalization. Patient however will require close and the frequent monitoring as well as additional work-up, investigation and therapeutic intervention that could take place from this point on post discharge. That is to prevent relapse, decompensation, rehospitalization and other medical implications. Outpatient follow up as directed for continuity of care. Verbal and written discharge instructions will be provided to the patient. Time Spent with Patient Time attestation: Total time spent providing and/or coordinating discharge services: Time spent: greater than 30 minutes Exam Narrative Exam Narrative: Const General: cooperative HEENT Normal oropharyngeal mucosa without any ulcers or exudates Eyes: Conjunctiva normal Pulmonary Auscultation: clear to auscultation , no crackles, no wheezes Cardiovascular Rate: normal rate Rhythm: regular rhythm Heart Sounds: S1 normal, S2 normal and no murmurs GI Inspection: non-distended Palpation: soft, not firm and nontender. No rigidity or rebound. Deferred Neuro General: alert, awake and oriented x3. No obvious new focal deficit Musculoskeletal: normal range of motion Extrem General: no cyanosis, no pedal edema Psych Appearance: appropriate affect. Grossly normal Constitutional Vital Signs, click to edit/add: Last Vital Signs Temp 98.4 F 01/14/25 08:02 Pulse 84 01/14/25 10:00 Resp 20 01/14/25 08:02 BP 151/84 H 01/14/25 08:02 Pulse Ox 91 L 01/14/25 08:02 O2 Del Method Room Air 01/14/25 08:02 O2 Flow Rate 2 01/12/25 19:30 DS: Data Data Completed and Pending Labs on day of discharge: Labs from last 24 hours 01/14/25 01/14/25 01/13/25 08:07 05:00 21:12 WBC 7.1 RBC 4.41 L Hgb 13.3 L Hct 39.8 L MCV 90.2 MCH 30.2 MCHC 33.4 RDW 12.4 Plt Count 176 MPV 10.2 Neut % (Auto) 63.3 Lymph % (Auto) 21.8 [place] % (Auto) 12.5 H Eos % (Auto) 2.0 Baso % (Auto) 0.3 Neut # (Auto) 4.5 Lymph # (Auto) 1.5 [place] # (Auto) 0.9 H Eos # (Auto) 0.1 Baso # (Auto) 0.0 Abs Immat Gran (auto) 0.01 Imm/Tot Granulo (auto) 0.1 Sodium 138 Potassium 3.9 Chloride 102 Carbon Dioxide 23.3 Anion Gap 16.6 BUN 22.0 H Creatinine 1.38 H Est GFR ( Amer) 60 Est GFR (Non-Af Amer) 49 L BUN/Creatinine Ratio 15.9 Glucose 209 H Calcium 8.7 Total Bilirubin 0.8 AST 25 ALT 22 Alkaline Phosphatase 79 Troponin I High Sens Total Protein 7.2 Albumin 3.0 L Globulin 4.2 Albumin/Globulin Ratio 0.7 POC Glucose 222 H 209 H 01/13/25 01/13/25 01/13/25 16:30 12:39 12:08 WBC RBC Hgb Hct MCV MCH MCHC RDW Plt Count MPV Neut % (Auto) Lymph % (Auto) [place] % (Auto) Eos % (Auto) Baso % (Auto) Neut # (Auto) Lymph # (Auto) [place] # (Auto) Eos # (Auto) Baso # (Auto) Abs Immat Gran (auto) Imm/Tot Granulo (auto) Sodium Potassium Chloride Carbon Dioxide Anion Gap BUN Creatinine Est GFR ( Amer) Est GFR (Non-Af Amer) BUN/Creatinine Ratio Glucose Calcium Total Bilirubin AST ALT Alkaline Phosphatase Troponin I High Sens 12.2 Total Protein Albumin Globulin Albumin/Globulin Ratio POC Glucose 315 H 279 H Discharge Plan Discharge Disposition: Home, Self-Care Condition: Good Discharge Medications: New Xarelto DVT-PE Treat 30d Start 15 mg (42)- 20 mg (9) tablets,dose pack See Rx Instructions .ROUTE .COMPLEX Qty: 51 0RF Rx Instructions: take one-15 mg tablet twice daily for 21 days, then one-20 mg tablet once daily; must take with meal/food Continued atorvastatin 20 mg tablet 20 mg PO QPM gabapentin 100 mg capsule 100 mg PO TID tamsulosin 0.4 mg capsule 0.4 mg PO DAILY multivitamin Tablet 1 tab PO DAILY escitalopram oxalate 10 mg tablet 10 mg PO DAILY ascorbic acid (vitamin C) 500 mg tablet 500 mg PO DAILY losartan 50 mg tablet 75 mg PO DAILY Humulin 70/30 U-100 KwikPen 100 unit/mL (70-30) insulin pen 45 unit subcut QAM Humulin 70/30 U-100 KwikPen 100 unit/mL (70-30) insulin pen 25 unit subcut DAILY Held warfarin 2.5 mg tablet 2.5 mg PO .6 days a week Hold Instructions: hold for now warfarin 5 mg tablet 5 mg PO QWEEK Hold Instructions: hold for now Rx Instructions: Mondays Print Language: Emirati Forms: Portal Instructions Follow Up Appointments: Fri. 01/19 @ 4:20pm with Dr. Barnett [facility], [address] [place] [address] [phone] 01/20 @ 11:45am with Dr. Thakkar [phone]
[2025-01-14 11:02] LABS: C. Difficile PCR NEGATIVE
--- NOTE | 2025-01-14 11:37 | CM.NOTE ---
I called [facility] in [place] to get pricing for the Xarelto and was told that the starter pack would be $60. I asked if the patient would be able to use the new prescription discount card and they said it would be up to the patient's insurance. I informed the patient and his of the above information and they were agreeable to that [place]. Patient and currently awaiting discharge instructions.
--- NOTE | 2025-01-18 14:08 | CM.DCFOLLOWU ---
Person spoke with:Rafat How are you feeling? Much Better How is your pain? No pain Did you understand your discharge instructions? Yes Do you have any questions about your discharge instructions? No Were you given any prescriptions at discharge? Yes Were you able to get your prescriptions filled? Yes Do you understand how to take your medications as ordered? Yes Do you have any questions about your follow up appointment and do you plan to keep your follow up appointment? No questions and yes he plans on keeping all his appts Is there anything else that you would like to discuss? No Questions/Comments/Concerns/Other:
--- OUTSIDE RECORDS SUMMARY | 2025-01-20 08:27 | XMS_ITS | Continuity of Care Document ---
Author Organization [facility] Address [address] [place] [address] Phone Care Team Providers Care Granite Worker Name Role Phone Bijan Danilo QUIÑONEZ Primary Care Provider [phone] Anibal Ash MD Attending Provider Danilo Thakkar DO Attending Provider Donaldo Hinson DO Attending Provider Eduarda Buchanan MD Attending Provider [phone] Jorge Raman MD Attending Provider Ct Palacios RN Attending Provider Unavailable Amber Drummond CMA Attending Provider Unavailable Care Teams Patient Care Team Team Status: Active Member Role/Relationship Status Dates Danilo Thakkar DO Primary Care Provider Active Visit Care Team Team Status: Active Member Role/Relationship Status Dates Danilo Thakkar DO Primary Care Provider Active Start: November 17, 2024 Raghu Patel ProviderActiveStart: November 17, 2024 Visit Care Team Team Status: Inactive Member Role/Relationship Status Dates Danilo Thakkar DO Primary Care Provider Active Start: January 10, 2025 End: January 10Martha Sanchez ProviderActiveStart: January 10, 2025 End: January 10, 2025 Visit Care Team Team Status: Active Member Role/Relationship Status Dates Danilo Thakkar DO Primary Care Provider Active Start: January 12, 2025 Martha Lopes ProviderActiveStart: January 12, 2025 Visit Care Team Team Status: Active Member Role/Relationship Status Dates Danilo Thakkar DO Primary Care Provider Active Start: January 13, 2025 Eduarda Gallardoann , MDAttending ProviderActiveStart: January 13, 2025 Visit Care Team Team Status: Active Member Role/Relationship Status Dates Danilo Thakkar DO Primary Care Provider Active Start: January 14, 2025 Jorge Raman , MDAttending ProviderActiveStart: January 14, 2025 Visit Care Team Team Status: Active Member Role/Relationship Status Dates Danilo Thakkar DO Primary Care Provider Active Start: January 18, 2025 Ct Pal[facility] RNAttending ProviderActiveStart: January 18, 2025 Visit Care Team Team Status: Active Member Role/Relationship Status Dates Danilo Thakkar DO Primary Care Provider Active Start: January 18, 2025 Amber Drummond CMAAttscotty ProviderActiveStart: January 18, 2025 Visit Care Team Team Status: Active Member Role/Relationship Status Dates Danilo Thakkar DO Primary Care Provider Active Start: January 18, 2025 Amber Drummond CMAAttending ProviderActiveStart: January 18, 2025 Visit Care Team Team Status: Active Member Role/Relationship Status Dates Danilo Thakkar DO Primary Care Provider Active Start: January 19, 2025 Anibal Gary Ash MDAttending ProviderActiveStart: January 19, 2025 Patient Care Team Team Status: Inactive Member Role/Relationship Status Dates Danilo Thakkar DO Primary Care Provider Active Start: January 20, 2025 End: January 20luan Thakkar DOAttending ProviderActiveStart: January 20, 2025 End: January 20, 2025 Chief Complaint and Reason for Visit Chief Complaint Admit Date 3 month follow up January 10, 2025 1 :48pm Amb Documentation January 18, 2025 1 2:31pm Amb Documentation January 18, 2025 1 2:43pm Amb Documentation January 18, 2025 1 2:46pm chest pains January 20, 2025 1 1:30am Reason for Visit Admit Date Back pain of thoracolumbar region Octobe r 2024 1:48pm 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 January 10, 2025 1:48pm Elevated cholesterol January 10, 2025 1:48pm FPC (current) use of anticoagulant s January 10, 2025 1:48pm Mucoepidermoid carcinoma of parotid glan d January 10, 2025 1:48pm Opiate analgesic use agreement exists Oc tober 2024 1:48pm Type 2 diabetes mellitus with diabetic p olyneuropathy January 10, 2025 1:48pm Type 2 diabetes mellitus with hyperglyce wayne January 10, 2025 1:48pm HTN (hypertension) January 10, 2025 1 :48pm Multiple myeloma January 10, 2025 1 :48pm Back pain of thoracolumbar region Octobe r 2024 11:30am 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 January 20, 2025 11:30am Elevated cholesterol January 20, 2025 11:30am FPC (current) use of anticoagulant s January 20, 2025 11:30am Mucoepidermoid carcinoma of parotid glan d January 20, 2025 11:30am Opiate analgesic use agreement exists Oc tober 2024 11:30am Pulmonary embolism January 20, 2025 1 1:30am Type 2 diabetes mellitus with diabetic p olyneuropathy January 20, 2025 11:30am Type 2 diabetes mellitus with hyperglyce wayne January 20, 2025 11:30am HTN (hypertension) January 20, 2025 1 1:30am Multiple myeloma January 20, 2025 1 1:30am Allergies, Adverse Reactions, Alerts Allergen Type Severity Reaction Last Updated Verified Status Comments lisinopril Allergy Unknown Unknown Reaction January 20, 2025 11:38am Yes Active Onset Date: 10/23/2012 penicillamine Allergy Unknown Unknown Reaction January 20, 2025 11:38am Yes Active penicillin VAllergyUnknownUnknown ReactionOctober 2024 11:38amYesActive PenicillinsAllergyUnknownSwelling of Lip/Tongue/ThroatOctober 2024 11:38am YesActive Social History Smoking Status Status Start Date End Date Date of Observa tion Never smoked tobacco (finding) January 13, 2025 11:03am Observation Status Observation Response Date of Response Legal Sex Male (finding) Sex Assigned At BirthMaleNovember 1939 Family History Relationship Condition Age at Onset Recorded Date/T mayank father Unknown Malignant neoplasmUnknownmotherDeceasedUnknownMalignant neoplasmUnknownDiabetes mellitusUnknownsisterDeceasedUnknown Problems Active Problems Problem Diagnosis/Recorded Date Onset Date Status C dann Carpal tunnel syndrome on right June 04, 2023 9:25am Un known Active Back pain of thoracolumbar regionMay 2023 11:56amUnknownActiveMass of left parotid glandJuly 2023 9:49amUnknownActiveFNA w/ atypia of undetermined significance - 12/2022,CT: 2 x 2 x 1.7cm - 01/2023,US: no change - 2022,PET/CT: not FDG avid, slight increased size - 08/2023,Medicare annual wellness visit, subsequentApril 2024 7:23amUnknownActiveMajor depression April 19, 2024 2:42pmUnknownActive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October 2024 7:47amUnknownActiveAcute chest wall painMay 2023 11:56amUnknownActiveType 2 diabetes mellitus with hyperglycemiaApril 2023 5:03pmUnknownActiveType 2 diabetes mellitus with diabetic polyneuropathy May 09, 2023 2:45pmUnknownActiveMucoepidermoid carcinoma of parotid gland September 25, 2024 8:40amUnknownActiveLeft parotidectomy - 09/17/24Opiate analgesic use agreement existsOctober 2024 7:46amUnknownActiveElevated cholesterol July 03, 2023 5:01pmUnknownActiveAnemia, unspecifiedMarch 2023 9:25am October 16, 2016ActiveBack painMay 2023 11:51amUnknownActiveLong term (current) use of anticoagulantsMarch 2023 9:25amUnknownActiveChronic kidney diseaseJanuary 2024 2:45pmUnknownActiveBenign prostatic hyperplasia with lower urinary tract symptomsApril 2023 5:03pmUnknownActiveMild episode of recurrent major depressive disorderMarch 2023 9:25amUnknown ActiveThoracic disc herniationMarch 2023 9:25amUnknownActivePulmonary embolismOctober 2024 9:42pmOct, tiveright lower lobe(unprovoked hx of pulmonary emboli coinciding w/ dx of mult. myeloma)HTN (hypertension) February 17, 2017 12:10pmUnknownActiveEcho: LVEF 55-60%, LVH, GATITO, normal RV size/function, Ao 4.0cm - 12/2024Lumbar spondylosisOctober 2024 7:46am UnknownActiveMultiple myelomaNovember 2016 12:10pmUnknownActiveObesity April 19, 2024 2:42pmUnknownActiveInactive/Resolved Problems Problem Diagnosis/Recorded Date Onset Date Status C omments GI bleed February 15, 2017 10:27am Unknown Resolved Problem List clean-up per request of Phys. EHR Cmte Setphen gar drain site pain September 24, 2024 2:47pm Unknown Resolved Anemia due to blood lossNov2016 12:07pmUnknownResolvedProblem List clean-up per request of Phys. EHR CmteThrombocytopeniaNovember 2016 12:11pmUnknownResolvedProblem List clean-up per request of Phys. EHR Cmte Medications Medication Status Dose Units Route Directions Qty Days Refills S tart Date Stop Date End Date Reason(s) Instructions Adherence Glimepiride 4 mg tablet Discontinued 0 .ROUTE.QFCWXRE769Rvpid 2023 1:41pmMarch 2023 9:29amTAKE 1 TABLET BY MOUTH ONCE DAILY 30 MINUITES PRIOR TO BREAKFASTInsulin Glargine (Lantus Solostar U-100 Insulin) 100 unit/mL (3 mL) insulin penDiscontinued0.ROUTE.FEHSKON973Jzupt 2023 4:28pmApril 2023 6:36pmINJECT 50 UNITS SUBCUTANEOUSLY ONCE A DAY Insulin Glargine (Lantus Solostar U-100 Insulin) 100 unit/mL (3 mL) insulin pen Hwbnoxhhsdui04UHOHYXEDVOVvzdz elzqx84336Dglyp 2023 6:35pmOctober 2023 12:36pmGabapentin 300 mg capsuleDiscontinued0.ROUTE.OOQLAQD9928Ydr 2023 1:16pmJune 2024 10:09amTAKE 1 CAPSULE BY MOUTH THREE TIMES DAILY Atorvastatin 20 mg tabletDiscontinued0.ROUTE.EGVGNQP257Ftf 2023 8:39amMay 2024 7:41amTAKE 1 TABLET BY MOUTH ONCE DAILY IN THE EVENINGEscitalopram Oxalate 10 mg tabletDiscontinued0.ROUTE.BNPTBUO878Buej 2023 1:36pmDecember 2023 6:01pmTAKE 1 TABLET BY MOUTH EVERY DAY AT BEDTIMETamsulosin 0.4 mg capsuleDiscontinued0.ROUTE.FXSLMCB036Meho 2023 12:52pmJune 2024 7:20amTAKE 1 CAPSULE BY MOUTH ONCE DAILY IN THE EVENINGWarfarin 5 mg tablet Discontinued0.ROUTE.ONKJXRU3916Swuv 2023 7:02amOctober 2024 11:40am TAKE 1 TO 2 TABLETS BY MOUTH ONCE DAILY PER INR RESULTSPen Needle, Diabetic (Bd Ultra-Fine Short Pen Needle) 31 gauge x 5/16 needleDiscontinued0.Rcupa1932Jzqt 2023 12:00amJuly 2023 8:42amType 2 diabetes mellitus with hyperglycemia Type 2 diabetes mellitus with hyperglycemia FPC (current) use of insulinAs directedPen Needle, Diabetic (Bd Ultra-Fine Short Pen Needle) 31 gauge x 5/16 needleDiscontinued0.ROUTE.XKTKBCW655Vbez 2023 8:42amOctober 2023 11:27amType 2 diabetes mellitus with hyperglycemia Type 2 diabetes mellitus with hyperglycemia FPC (current) use of insulinUSE AND DISCARD 1 PEN NEEDLE DAILY TO INJECT INSULINPen Needle, Diabetic (Bd Ultra-Fine Short Pen Needle) 31 gauge x 5/16 needleDiscontinued0.ROUTE.UYKURII9769Hkdtjqo 2023 11:26amJune 2024 2:58pmType 2 diabetes mellitus with hyperglycemia Type 2 diabetes mellitus with hyperglycemia FPC (current) use of insulinUSE AND DISCARD 1 PEN NEEDLE TWICE DAILY TO INJECT INSULINInsulin Nph And Regular Human (Humulin 70/30 U-100 Kwikpen) 100 unit/mL (70-30) insulin dvyZgzaadhcrgxw19SMGOYNLIMDGaqmx qhplfmu489Jmoophh 9th, 2024 12:37pmOct2023 9:12am15 units QHSInsulin Nph And Regular Human (Humulin 70/30 U-100 Kwikpen) 100 unit/mL (70-30) insulin ldsHptobqiaztni3PRDXEC Twice hzhyw752IthokcqJanuary 13, 2024 9:11amOctober 2023 8:02bx80m SC before bkfst and 20u SC before supperBlood-Glucose,Joiners Supervisor,Cont (Dexcom G7 Joiners Supervisor) miscActive0.ROUTE.SPAXLPO06Vvdvdyg2023 9:39pmType 2 diabetes mellitus with hyperglycemia 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 Type 2 diabetes mellitus with hyperglycemia FPC (current) use of insulinUSE AT HOME TO TEST BLOOD SUGAR 4-6 TIMES DAILY WITH SENSORSInsulin Nph And Regular Human (Humulin 70/30 U-100 Kwikpen) 100 unit/mL (70-30) insulin mxsEaluzgpowlfx9KIXQDODjehh mqptt032IliytrwJanuary 22, 2024 8:22pmNov2023 6:67lc32n SC before bkfst and 20u SC before supperLosartan 50 mg csucqfBfguhsupkubi68RJPIWrrupGtubjfni 2023 1:47pm March 01, 2024 1:59pmInsulin Nph And Regular Human (Humulin 70/30 U-100 Kwikpen) 100 unit/mL (70-30) insulin aagZioyinvfafbp9VCHIOGNvrjn lqjyb410 February 03, 2024 6:17pmJanuary 2024 7:73ms97h SC before bkfst and 25u SC before supperBlood-Glucose Sensor (Dexcom G7 Sensor) deviceDiscontinued0.ROUTE .WREMVTG283Hmfzqfyc2023 12:45pmNov2023 9:37amType 2 diabetes mellitus with hyperglycemia 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 REMOVE AND REPLACE SENSOR EVERY 10 DAYS.Blood-Glucose Sensor (Dexcom G7 Sensor) deviceActive0.ROUTE.ZLLNRQB677Qqeycvaz2023 9:36amType 2 diabetes mellitus with hyperglycemia 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 current use of anticoagulant therapy Type 2 diabetes mellitus with hyperglycemia FPC (current) use of anticoagulantsUSE TO TEST BLOOD SUGAR 4-6 TIMES DAILY. REMOVE AND REPLACE SENSOR EVERY 10 DAYS.Escitalopram Oxalate 10 mg tablet Discontinued0.ROUTE.IABVHFV683Cqvrfgvg 8th, 2024 6:01pmJun2024 8:41pm TAKE 1 TABLET BY MOUTH ONCE DAILY AT BEDTIMELosartan 50 mg tabletDiscontinued0 .ROUTE.ZJQRXXP7991Hikxwsop 9th, 2024 1:59pmJanuary 2024 3:10pmTake 1 tablet by mouth twice dailyInsulin Nph And Regular Human (Humulin 70/30 U-100 Kwikpen) 100 unit/mL (70-30) insulin wvwDaxkvwswjbwj2SGBZPQKtlzi pxszj74443 March 28, 2024 7:08pmJune 2024 6:16yo33f SC before bkfst and 25u SC before supperOxycodone 5 mg zhvwntArpdvh1DXLBBvdab 12 hours as needed for pain14 70April 2024Multiple myeloma Back pain of thoracolumbar region Multiple myeloma not having achieved remission Low back pain, unspecified Pain in thoracic spineComplies with drug therapyLosartan 50 mg qhauysHkwrpg63GD CUYunan2046Een 8th, 2025 2:13pmComplies with drug therapyAtorvastatin 20 mg tabletActive0.ROUTE.VCKCNII272Cdv2024 7:41amTAKE 1 TABLET BY MOUTH ONCE DAILY IN THE EVENINGComplies with drug therapyGabapentin 300 mg capsuleActive0 .ROUTE.PLCSMNK9401Lokx2024 10:09amTAKE 1 CAPSULE BY MOUTH THREE TIMES DAILYComplies with drug therapyTamsulosin 0.4 mg capsuleActive0.ROUTE.NDPKCBY173 August 25, 2024 7:20amTAKE 1 CAPSULE BY MOUTH ONCE DAILY IN THE EVENINGComplies with drug therapyEscitalopram Oxalate 10 mg tabletActive0.ROUTE.XAJVUQI812Wuiy2024 8:41pmTAKE 1 TABLET BY MOUTH ONCE DAILY AT BEDTIMEComplies with drug therapyInsulin Nph And Regular Human (Humulin 70/30 U-100 Kwikpen) 100 unit/mL (70-30) insulin pmwXtldqqiiyemi1TMCUIETelcw tsbjt32708Dnlz 11th, 2025 6:27pm November 27, 2024 8:85cd39b SC before bkfst and 25u SC before supperPen Needle, Diabetic 31 gauge x 5/16 needleDiscontinued0.ROUTE.NMWANBD74300Gkjk 15th, 2025 2:57pmOctober 2024 7:32amType 2 diabetes mellitus with hyperglycemia Type 2 diabetes mellitus with hyperglycemia 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 (current) use of insulinUse to inject insulin bidInsulin Nph And Regular Human (Humulin 70/30 U-100 Kwikpen) 100 unit/mL (70-30) insulin pen Active0.ROUTE.APMBBHZ0120Fvhljdqwc 6th, 2025 8:24amINJECT 50 UNITS SUBCUTANEOUSLY BEFORE BREAKFAST AND 25 BEFORE SUPPERComplies with drug therapy Pen Needle, Diabetic 31 gauge x 5/16 needleActive0.ROUTE.FTLTENP80669Fhbwszs 2024 7:32amType 2 diabetes mellitus with hyperglycemia Type 2 diabetes mellitus with hyperglycemia 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 (current) use of insulinUse to inject insulin bidWarfarin 5 mg Tablet Discontinued5.5MGPODaily at bedtimeSept2016 12:00amN2016 1:27pmPEAspirin (Aspir-Low) 81 mg Tablet,Delayed Release (Dr/Ec) Ebeougkhlzqp1IJSDQMgdzlNzfdefieo 21st, 2017 12:00amN[facility]2016 1:26pm Tamsulosin 0.4 mg capsule,extended release 78yrVmfnnrjcfmxe5.4MGPODaily at bedtimeSept2016 12:00amSeptember 03, 2023 12:52pmBPHFelodipine 5 mg Tablet Extended Release 24 VsBxtxjxvfnksl9XNQHApqlxWjiazykrc 21st, 2017 12:00am February 18, 2017 1:31pmhypertensionLinagliptin-Metformin 2.5-1,000 mg tablet Yqrrvmzaplyb8KZBTS0-0 TIMES DAILYSept2016 12:00amMarc 2023 9:29amDiabetesAtorvastatin 20 mg LernjdGzpbywvbkiyh16QOXOJbvkgZujxdqnll 21st, 2017 12:00amMay 2023 8:39amhyperlipidemiaLosartan-Hydrochlorothiazide 100- 12.5 mg MiwfrbLoswvifwlahl7TJFBYLnespQsxtjgxdo 21st, 2017 12:00amMarc 2023 9:29amhypertensionInsulin Glargine 100 unit/mL (3 mL) insulin pen Xoyjnwylxick72WRVGPUCULWImhye at bedtimeSept2016 12:00amNovember 2016 1:49pmdiabetesMultivitamin JpaurxPfoeebyxkmfh3FEFFUEbacyNsequpqgj 21st, 2017 12:00amMarc 2023 9:29amOxycodone-Acetaminophen (Percocet) 5- 325 mg vszbacOvsmoxrsongn1FWOUQFMTRB 4-6 HOURS as needed for hocl437Giwfmhppr 22nd, 2017March 2023 9:59dj8-1 tabs PO Q 4-6 hours as needed for pain Doxycycline Hyclate 100 mg esqvnkBoeaxyjlgxta740UGQQBqfqp rqrsq4516Sphimfdku 22nd, 2017 12:00amSeptember 2016 12:00amSeptember 2016 12:04ampost- op antibacterial prophylaxisAmlodipine 5 mg QunpjzXsxsmlpwpmad9UKQBIbued894 February 18, 2017 1:00am[facility] 2023 9:29amPantoprazole 40 mg tablet,delayed release (DR/EC)Unykjqmlqfru53HRQZGpthl rqlvgmq87979Ibtsklvp 28th, 2017 1:00amJanuary 2017 1:00amJanuary 2017 1:04amInsulin Glargine 100 unit/mL (3 mL) insulin qopNswhvcswpjbj90EHDLULGEBCYdoih at lpqmcux83Upekzubr 28th, 2017 1:00am[facility] 2023 9:29amOxycodone-Acetaminophen (Percocet) 5-325 mg tabletDiscontinued1 - 2TABPOEVERY 4-6 HOURS as needed for Ubcy895Fmlj 2017March 2023 9:29amMultiple myeloma Postoperative pain of extremity Carpal tunnel syndrome Cubital tunnel syndrome Multiple myeloma not having achieved remission Other acute postprocedural pain Carpal tunnel syndrome, unspecified upper limb Lesion of ulnar nerve, unspecified upper limb1-2 tabs PO Q 4-6 hours as needed for painDoxycycline Hyclate 100 mg nuulpqWpmfhmnzqkax717CLKGDylbl rbasg83710Uvrn 2017 12:00amMarch 2023 9:29amRivaroxaban (Xarelto Dvt-Pe Treat 30d Start) 15 mg (42)- 20 mg (9) tablets,dose packActiveTABPOOctober 2024 12:00amComplies with drug therapyGlimepiride 4 mg pnqsklTsjcdfvalwgv7HHKXIwofo May 26, 2023 1:00amMarch 2023 1:41pmGabapentin 300 mg capsule Sqgcfxajbprw504FJBFXeiyq times dailyMar 2023 12:00amMay 2023 1:16pm Escitalopram Oxalate 10 mg ujxlueSfceevnjjgmo10HARRFkjuqNchqa 2023 12:00am September 02, 2023 1:36pmGlimepiride 4 mg rtfzunXmqfhlfahuuh6WERWPyromWmqgx 2023 9:27amOctober 2023 12:36pmLosartan 50 mg oyeelfIgkmlaiflulu51OJRVEtrev dailyUniversity [facility] 2023 12:00amNoveer 2023 1:47pmWarfarin 5 mg tablet Bcvmrqbaxgss7ZIVdmilUznqh 2023 12:00amJuly 2023 7:83jb3-2 tablets per INR orally daily;Oxycodone 5 mg xtbvtkOyulollecmny5LFUMNwwhg 12 hours as needed for klcm9Wlaoo 2023 12:00amJuly 2023 3:05pmInsulin Glargine 100 unit/mL (3 mL) insulin yxdPilsbusrgzdf07JQEPBVFIGEKstxf dailyMar 2023 9:27amApril 2023 4:28pmLinagliptin (Tradjenta) 5 mg qdhkfaWtlrjlafrtea5HNYE DailyMar 2023 12:00amNovember 2023 6:13pmOxycodone 5 mg tablet Ynwerlkiqjax1QZGLJdejd 12 hours as needed for jkea19989Kseh pril 2024 2:06pmMultiple myeloma Back pain of thoracolumbar region Multiple myeloma not having achieved remission Low back pain, unspecified Pain in thoracic spineInsulin Nph And Regular Human (Humulin 70/30 U-100 Kwikpen) 100 unit/mL (70-30) insulin drvRuhyaaryrhyt17FMIQRYKJYWEkkwh pubgd721 October 17, 2023 12:00amOctober 2023 12:37pmBlood-Glucose,Joiners Supervisor,Cont (Dexcom G7 Joiners Supervisor) miscDiscontinued0.Ethig57Zdxb 2023 12:00amOctober 2023 9:39pmType 2 diabetes mellitus with hyperglycemia FPC current use of insulin Type 2 diabetes mellitus with hyperglycemia 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 (current) use of insulinUse to test home BS 4-6x dailyBlood-Glucose Sensor (Dexcom G7 Sensor) deviceDiscontinued0.Swsci31Gsof 2023 12:00am February 14, 2024 12:46pmType 2 diabetes mellitus with hyperglycemia 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 current use of anticoagulant therapy Type 2 diabetes mellitus with hyperglycemia FPC (current) use of anticoagulantsUse to test home BS 4-6x dailyLosartan 50 mg uzzanwOwgfsqkzpkzi50ULJREptjq9873Oweocot 2024 3:10pmMay 2024 2:13pmDoxycycline Hyclate 100 mg pnuwclvJeqbuqturwej031IZLLFiwtk pcvic4081 April 16, 2024 1:00amOctober 2024 2:04pmOxycodone 5 mg tablet Cxbtnluczwsg8FMYXPnjep 12 hours as needed for pgvd87121Hqsgr pril 2024 6:14pmMultiple myeloma Back pain of thoracolumbar region Multiple myeloma not having achieved remission Low back pain, unspecified Pain in thoracic spine Immunizations Immunization Event Date Not Given Reason Dose Number Hospitality Team Member Lot Number Reason(s) Given Vaccine Information Statement (VIS) Detail Administration Location COVID-19 Dionicio Tavares ([employer]) April 26, 2020 Fluzone TIV High-Dose 65YR+January 10, [id number] [facility] influenza, unspecified formulationNovember 2015influenza, unspecified formulationOctober 2016influenza, unspecified formulationOctober 2017influenza, unspecified formulationOctober 2018influenza, unspecified formulationSeptember 2019influenza, unspecified formulationSeptember 2020influenza, unspecified formulationOctober 2021influenza, unspecified formulationOctober , neumococcal Conjugate Vaccine, 13 valentDecember , 2014Pneumococcal Polysacc. Vaccine, 23 valentAugust , 2004Pneumococcal Polysacc. Vaccine, 23 valentDecember , 2013Pneumococcal Polysacc. Vaccine, 23 valentNovember , 2014Tetanus, Diphtheria adult, 5 Lf pres free absOctober 2011Tetanus, Diphtheria adult, 5 Lf pres free absOctober 2012 Medical Equipment Device Date Implanted Device Details K-WIRE 2.5MM W/ TROCAR POINT December 13 7 NAIL HUMERAL 9MM X 280MM TISeptember 2016SCREW 4.0MM TI LOCKING W/ T25 December 13, 2016 Relevant Diagnostic Tests and/or Laboratory Data Laboratory Results Test Collection Date/Time Result Date/Time Result Interpretation Reference Range Result Comment Performing Site Albumin (Send Out) November 17, 2024 2:35pm November 17, 025 2:35pm 3.63 g/dL 3.43-5.41Immunofixation InterpretationAugust 2024 2:35pmAugust 2024 2:35pmFree Scio/Lambda Light Chain RatioAugust 2024 2:35pmAugust 2024 2:35pm4.88Above high normal0.26-1.65Immunoglobulin AAugust 2024 2:35pmAugust 2024 2:33fp342 mg/sK13-517Hfgfp Total ProteinAugust 2024 2:35pmAugust 2024 2:35pm6.8 g/dL6.3-8.3Mgcd-0-TzjvctzhoqmzsJjqucd 2024 2:35pmAugust 2024 9:53am4.6 mg/LAbove high normal<3.1Beta-2 Microglobulin test is performed using the [employer] immunoturbidimetric method. Results obtained with different methods or kits cannot be used interchangeably.Ionized CalciumAugust 2024 2:35pmAugust 2024 2:35pm 1.31 mmol/LAbove high normal1.08-1.30Alanine Aminotransferase (ALT/SGPT)November 17, 2024 2:35pmAugust 2024 2:35pm13 U/I66-38Jbse AcidAugust 2024 2:35pmAugust 2024 3:06pm4.8 mg/dL4.0-8.1Phosphorus LevelAugust 2024 2:35pmAugust 2024 3:06pm2.8 mg/dL2.7-4.8Lactate DehydrogenaseAugust 2024 2:35pmAugust 2024 3:08lv743 U/Q785-876Uduuklwre # (Auto)November 17, 2024 2:35pmAugust 2024 2:35pm<0.03 k/uL<0.11Activated Partial Thromboplast TimeOctober 2024 4:57pmOctober 2024 4:57pm38.8 secAbove high normal 22.3-36.2Prothromb Time International RatioOct2024 4:57pmOct2024 4:57pm2.42DESIRED INR:2.0-3.0 CONDITIONS NOT LISTED BELOW2.5-3.5 FOR PROSTHETIC HEART VALVE REPLACEMENT2.5-3.5 RECURRENT THROMBOSISB-Type Natriuretic PeptideOct2024 4:57pmOct2024 4:19km782.0 pg/mL<=1800.0 Troponin I High SensitivityOct2024 4:57pmOct2024 4:57pm6.5 pg/mL4.0-76.1CUT-OFF POINTS HAVE BEEN ESTABLISHED BASED ON THE FOURTHUNIVERSAL DEFINITION OF MYOCARDIAL INFARCTION. THE UPPERREFERENCE LIMIT (URL) OF TROPONIN, DEFINED THE 99THPERCENTILE OF cTnI DISTRIBUTION IN A REFERENCE POPULATION,HAS BEEN CONFIRMED THE DECISION THRESHOLD FOR MIDIAGNOSIS.99TH PERCENTILE = 76.2 PG/MLNOTE: HIGH-SENSITIVITY TROPONIN ASSAY IS NOT INTENDED TO BEUSED IN ISOLATION BUT SHOULD BE INTERPRETED IN CONJUNCTIONWITH OTHER DIAGNOSTIC AND CLINICAL INFORMATION.Anion GapOctober 2024 4:57pmOctober , 2024 4:57pm 12.9Basophils # (Auto)January 12, 2025 4:57pmOctober 2024 4:57pm0.0 10 3/uL0.0-0.1Urine Culture ReflexedOct2024 3:00amNOB-Type Natriuretic PeptideOct2024 5:03amOctober 2024 5:82oy134.0 pg/mL<=1800.0 Magnesium LevelOct2024 5:03amOctober 2024 5:03am1.7 mg/dLBelow low normal1.8-2.4Anion GapOctober 2024 5:03amOctober , 2024 5:03am12.2 Prothromb Time International RatioOct2024 5:03amOctober , 2024 5:03am3.44DESIRED INR:2.0-3.0 CONDITIONS NOT LISTED BELOW2.5-3.5 FOR PROSTHETIC HEART VALVE REPLACEMENT2.5-3.5 RECURRENT THROMBOSISBasophils # (Auto)January 13, 2025 5:03amOctober 2024 5:03am0.0 10 3/uL0.0-0.1Troponin I High SensitivityOct2024 12:39pmOctober 2024 12:39pm12.2 pg/mL 4.0-76.1CUT-OFF POINTS HAVE BEEN ESTABLISHED BASED ON THE FOURTHUNIVERSAL DEFINITION OF MYOCARDIAL INFARCTION. THE UPPERREFERENCE LIMIT (URL) OF TROPONIN, DEFINED THE 99THPERCENTILE OF cTnI DISTRIBUTION IN A REFERENCE POPULATION,HAS BEEN CONFIRMED THE DECISION THRESHOLD FOR MIDIAGNOSIS.99TH PERCENTILE = 76.2 PG/MLNOTE: HIGH-SENSITIVITY TROPONIN ASSAY IS NOT INTENDED TO BEUSED IN ISOLATION BUT SHOULD BE INTERPRETED IN CONJUNCTIONWITH OTHER DIAGNOSTIC AND CLINICAL INFORMATION.Anion GapOct2024 5:00amOct2024 5:00am 16.6Basophils # (Auto)January 14, 2025 5:00amOctober 2024 5:00am0.0 10 3/uL0.0-0.1Clostridium difficile (PCR)(LAB)January 14, 2025 7:00amOct2024 7:00amNEGATIVEAlanine Aminotransferase (ALT/SGPT)January 19, 2025 3:38pmOct2024 3:38pm14 U/Q48-67Ruqg AcidOct2024 3:38pm January 20, 2025 8:07am5.1 mg/dL4.0-8.1Phosphorus LevelOct2024 3:38pmOct2024 8:07am2.7 mg/dL2.7-4.8Lactate DehydrogenaseOct2024 3:38pmOct2024 8:92ws348 U/G275-741Pxtirkyfl present. The origin of the hemolysis, in vitro versus an in vivo hemolytic process, cannot be distinguished via this assay alone. In vitro hemolysis may lead to non- physiological (spurious)elevation in lactate dehydrogenase (LDH) results. The result should be interpreted in context of the clinical setting and other test results. Suggest reorder as clinically indicated.Ionized CalciumOct2024 3:38pmJanuary 19, 2025 3:38pm1.32 mmol/LAbove high normal1.08-1.30 Basophils # (Auto)January 19, 2025 3:38pmOct2024 3:38pm<0.03 k/uL <0.40Slbnd-0-GpkylscthQedfzc 2024 2:35pmAugust 2024 2:35pm0.29 g/dL 0.18-0.43Serum ImmunofixationAugust 2024 2:35pmAugust 2024 2:35pmM protein is present.Abnormal (applies to non-numeric results)No M protein is identified.Free Lambda Light Chains, QuantAugust 2024 2:35pmAugust 2024 2:35pm47.7 mg/LAbove high normal5.7-26.3Rarely, increased serum free light chains levels may not be detected or accurately quantified due to prozone phenomenon or in high viscosity samples using this immunoturbidimetric assay. Correlation with other laboratory results and clinical findings is recommended. The Lambda Free Light Chain was performed using the Binding Site Optilite immunoturbidimetric method. Result obtained with differentassay methods or kits cannot be used interchangeably.Immunoglobulin GAugust 2024 2:35pmAugust 2024 2:38hu5784 mg/nN142-1935Lrskzds Calcium (pH Adjusted)November 17, 2024 2:35pmAugust 2024 2:35pm1.26 mmol/L1.08-1.30AlbuminAugust 2024 2:35pmAugust 2024 2:35pm3.9 g/dL3.9-4.9Basophils (%) (Auto)November 17, 2024 2:35pmAugust 2024 2:35pm0.3 %Prothrombin TimeOct2024 4:57pmOctober 2024 4:57pm23.5 secAbove high normal9.0-11.6BUN/Creatinine RatioOct2024 4:57pmOctober 2024 4:57pm12.8Basophils (%) (Auto) January 12, 2025 4:57pmOctober 2024 4:57pm0.3 %0.2-2.0Urine Other Casts January 13, 2025 3:00amNONE SEEN #/LPFNONE SEENAlbumin/Globulin RatioOct2024 5:03amOctober 2024 5:03am0.8Prothrombin TimeOct2024 5:03amOctober 2024 5:03am32.3 secAbove high normal9.0-11.6Basophils (%) (Auto)January 13, 2025 5:03amOctober 2024 5:03am0.3 %0.2-2.0 Albumin/Globulin RatioOct2024 5:00amOctober 2024 5:00am0.7 Basophils (%) (Auto)January 14, 2025 5:00amOctober 2024 5:00am0.3 % 0.2-2.0AlbuminOct2024 3:38pmOctober 2024 3:38pm3.8 g/dLBelow low normal3.9-4.9Ionized Calcium (pH Adjusted)January 19, 2025 3:38pmOctober 2024 3:38pm1.27 mmol/L1.08-1.30Basophils (%) (Auto)January 19, 2025 3:38pmOctober 2024 3:38pm0.3 %Aunng-4-FutxmxdzqTycosa 27th, 2025 2:35pm November 17, 2024 2:35pm0.77 g/dL0.42-0.98Leuk/Lymph Sign Pathologist (Misc) November 17, 2024 2:35pmAugust 2024 2:35pmReviewed by Namrata Byrd MDFrlouise [place] Light Chains, QuantAugust 2024 2:35pmAugust 2024 2:91wn665.0 mg/LAbove high normal3.3-19.4Rarely, increased serum free light chains levels may not be detected or accurately quantified due to prozone phenomenon or in high viscosity samples using this immunoturbidimetric assay. Correlation with other laboratory results and clinical findings is recommended. The [place] Free Light Chain was performed using the Binding Site Optilite immunoturbidimetric method. Result obtained with different assay methods or kits cannot be used interchangeably.Immunoglobulin 2024 2:35pmAugust 2024 2:35pm 280 mg/dLAbove high luljmb01-096Necmigkbb Amino Transf (AST/SGOT)November 17, 2024 2:35pmAugust 2024 2:35pm20 U/K77-72Grumtimdulg # (Auto)November 17, 2024 2:35pmAugust 2024 2:35pm0.15 k/uL<0.46Blood Urea NitrogenOctober 2024 4:57pmOctober 2024 4:57pm18.0 mg/dL7.0-18.0Eosinophils # (Auto) January 12, 2025 4:57pmOctober 2024 4:57pm0.1 10 3/uL0.0-0.7Urine Other CrystalsOctober 2024 3:00amNone Seen #/HPFNone SeenAlbuminOctober 2024 5:03amOctober 2024 5:03am3.2 g/dLBelow low normal3.4-5.0Eosinophils # (Auto)January 13, 2025 5:03amOctober 2024 5:03am0.1 10 3/uL0.0-0.7 AlbuminOctober 2024 5:00amOctober 2024 5:00am3.0 g/dLBelow low normal3.4-5.0Eosinophils # (Auto)January 14, 2025 5:00amOctober 2024 5:00am0.1 10 3/uL0.0-0.7Aspartate Amino Transf (AST/SGOT)January 19, 2025 3:38pmOctober 2024 3:38pm21 U/P41-72Mnuyakonhqf # (Auto)January 19, 2025 3:38pmOctober 2024 3:38pm0.18 k/uL<0.46Beta GlobulinsAugust 2024 2:35pmAugust 2024 2:35pm0.80 g/dL0.61-1.17Total BilirubinAugust 2024 2:35pmAugust 2024 2:35pm0.3 mg/dL0.2-1.3Eosinophils (%) (Auto)November 17, 2024 2:35pmAugust 2024 2:35pm2.3 %Calcium LevelOctober 2024 4:57pm January 12, 2025 4:57pm9.6 mg/dL8.5-10.1Eosinophils (%) (Auto)January 12, 2025 4:57pmOctober 2024 4:57pm1.1 %0.9-7.0Urine BacteriaOctober 2024 3:00amNONE SEEN #/HPFNONE SEENAlkaline PhosphataseOct2024 5:03am January 13, 2025 5:03am82 U/R59-317Agaloagtzyt (%) (Auto)January 13, 2025 5:03amOctober 2024 5:03am1.2 %0.9-7.0Alkaline PhosphataseOct2024 5:00amOctober 2024 5:00am79 U/L23-871Fuqpmxanqph (%) (Auto)January 14, 2025 5:00amOctober 2024 5:00am2.0 %0.9-7.0Total BilirubinOctober 2024 3:38pmOctober 2024 3:38pm0.3 mg/dL0.2-1.3Eosinophils (%) (Auto) January 19, 2025 3:38pmOctober 2024 3:38pm2.8 %Gamma GlobulinsAugust 2024 2:35pmAugust 2024 2:35pm1.31 g/dL0.53-1.51Carbon Dioxide Level November 17, 2024 2:35pmAugust 2024 2:35pm27 mmol/D56-37SwautgsvumPxqjoj 2024 2:35pmAugust 2024 2:35pm12.8 g/dLBelow low .0-17.0 Chloride LevelOct2024 4:57pmOctober 2024 4:99fq561 mmol/L98-107 HematocritOct2024 4:57pmOctober 2024 4:57pm41.9 %Below low mnpiao53.0-54.0Urine BilirubinOctober 2024 3:00amNEGATIVENEGATIVEAlanine Aminotransferase (ALT/SGPT)January 13, 2025 5:03amOctober 2024 5:03am23 U/V93-60FxbebwdsfyCwzqeei 2024 5:03amOctober 2024 5:03am39.1 %Below low gxymtb48.0-54.0Alanine Aminotransferase (ALT/SGPT)January 14, 2025 5:00am January 14, 2025 5:00am22 U/R04-52PnikyuheilOstnojy 2024 5:00amOctober 2024 5:00am39.8 %Below low ejkzlh14.0-54.0Carbon Dioxide LevelOctober 2024 3:38pmOctober 2024 3:38pm26 mmol/Q55-80KvvgqxkmtyDzxskxh 2024 3:38pmOctober 2024 3:38pm13.2 g/dL13.0-17.0Protein Electrophoresis NoteAugust 2024 2:35pmAugust 2024 2:35pmAn M protein is identified on protein electrophoresis.Abnormal (applies to non-numeric results)No definitive M protein is identified on protein electrophoresis.Chloride Level November 17, 2024 2:35pmAugust 2024 2:39kd779 mmol/C74-807Tqxpzzvyeof # (Auto)November 17, 2024 2:35pmAugust 2024 2:35pm1.75 k/uL1.00-4.00Carbon Dioxide LevelOctober 2024 4:57pmOctober 2024 4:57pm26.5 mmol/L 21.0-32.0HemoglobinOctober 2024 4:57pmOctober 2024 4:57pm14.1 g/dL 14.0-18.0Urine Occult BloodOctober 2024 3:00amMODERATEAbnormal (applies to non-numeric results)NEGATIVEAspartate Amino Transf (AST/SGOT)January 13, 2025 5:03amJanuary 13, 2025 5:03am22 U/N47-07OonpxajwdoPcvgzoy 23rd, 2025 5:03am January 13, 2025 5:03am13.2 g/dLBelow low jnnmos05.0-18.0Aspartate Amino Transf (AST/SGOT)January 14, 2025 5:00amJanuary 14, 2025 5:00am25 U/L15-37 HemoglobinJanuary 14, 2025 5:00amOct2024 5:00am13.3 g/dLBelow low vkzese93.0-18.0Chloride LevelOct2024 3:38pmOct2024 3:38pm 102 mmol/Y28-300Nkqmuilnbxu # (Auto)January 19, 2025 3:38pmOct2024 3:38pm1.73 k/uL1.00-4.00Protein Electrophoresis M-SpikeAugus2024 2:35pm November 17, 2024 2:35pm0.43 g/dLAbove high normal<=0.00CreatinineAugust 2024 2:35pmAugust 2024 2:35pm1.32 mg/dLAbove high normal0.73-1.22 Lymphocytes (%) (Auto)November 17, 2024 2:35pmAugust 2024 2:35pm26.9 % CreatinineJanuary 12, 2025 4:57pmOctober 2024 4:57pm1.41 mg/dLAbove high normal0.70-1.30Immature Granulocyte # (Auto)January 12, 2025 4:57pmOct2024 4:57pm0.04 10 3/uLAbove high normal0.00-0.03Urine AppearanceOct2024 3:00amCLEARCLEARBUN/Creatinine RatioOct2024 5:03amOct2024 5:03am13.8Immature Granulocyte # (Auto)January 13, 2025 5:03am January 13, 2025 5:03am0.03 10 3/uL0.00-0.03BUN/Creatinine RatioOctober 2024 5:00amOctober 2024 5:00am15.9Immature Granulocyte # (Auto)January 14, 2025 5:00amOctober 2024 5:00am0.01 10 3/uL0.00-0.03CreatinineOct2024 3:38pmOctober 2024 3:38pm1.30 mg/dLAbove high normal0.73-1.22 Lymphocytes (%) (Auto)January 19, 2025 3:38pmOctober 2024 3:38pm26.5 % Miscellaneous Test 6August 2024 2:35pmAugust 2024 2:35pmGamma Fraction 1Glucose LevelAugust 2024 2:35pmAugust 2024 2:56od593 mg/dL Above high popyrr75-45Zfh [place] [employer] (ADA) provides guidance for cutoff [...] diabetes.Reference: [employer] [facility] Diabetes 2016, [place] [employer]. Diabetes Care. 2016.39(Suppl 1).Monocytes # (Auto)November 17, 2024 2:35pmAugust 2024 2:35pm0.69 k/uL<0.87Estimated GFR () January 12, 2025 4:57pmOctober 2024 4:01bs41Ubxfm low normal>=60 mL/min/1.73m 2Immature Granulocyte % (Auto)January 12, 2025 4:57pmOctober 2024 4:57pm0.4 %0.0-0.5Urine ColorOctober 2024 3:00amLT. YELLOW YELLOWBlood Urea NitrogenOctober 2024 5:03amOctober 2024 5:03am19.0 mg/dLAbove high normal7.0-18.0Immature Granulocyte % (Auto)January 13, 2025 5:03amOctober 2024 5:03am0.4 %0.0-0.5Blood Urea NitrogenOctober 2024 5:00amOctober 2024 5:00am22.0 mg/dLAbove high normal7.0-18.0Immature Granulocyte % (Auto)January 14, 2025 5:00amOctober 2024 5:00am0.1 % 0.0-0.5Random GlucoseOctober 2024 3:38pmOctober 2024 3:75lt676 mg/dL Above high imluem05-44Mbc [place] [employer] (ADA) provides guidance for cutoff [...] diabetes.Reference: [employer] Diabetes 2016, [place] [employer]. Diabetes Care. 2016.39(Suppl 1).Monocytes # (Auto)January 19, 2025 3:38pmOctober 2024 3:38pm0.55 k/uL<0.87Protein Electrophoresis InterpretAugust 2024 2:35pmAugust 2024 2:35pmPotassium LevelAugust 2024 2:35pmAugust 2024 2:35pm4.1 mmol/L3.7-5.1Neutrophils # (Auto) November 17, 2024 2:35pmAugust 2024 2:35pm3.87 k/uL1.45-7.50Estimated GFR (Non- AmericanOctober 2024 4:57pmOctober 2024 4:02nx07Ckvet low normal>=60 mL/min/1.73m 2Lymphocytes # (Auto)January 12, 2025 4:57pm January 12, 2025 4:57pm1.2 10 3/uL1.2-3.8Urine Glucose (UA)January 13, 2025 3:00amNEGATIVE mg/dLNEGATIVECalcium LevelOctober 2024 5:03amOctober 2024 5:03am8.8 mg/dL8.5-10.1Lymphocytes # (Auto)January 13, 2025 5:03amOctober 2024 5:03am1.9 10 3/uL1.2-3.8Calcium LevelOct2024 5:00amOctober 2024 5:00am8.7 mg/dL8.5-10.1Lymphocytes # (Auto)January 14, 2025 5:00am January 14, 2025 5:00am1.5 10 3/uL1.2-3.8Potassium LevelOct2024 3:38pmOctober 2024 3:38pm4.4 mmol/L3.7-5.1Neutrophils # (Auto)January 19, 2025 3:38pmOctober 2024 3:38pm4.03 k/uL1.45-7.50Miscellaneous Test CommentAugust 2024 2:35pmAugust 2024 2:35pmReviewed by Namrata Byrd MDNeutrophils (%) (Auto)November 17, 2024 2:35pmAugust 2024 2:35pm59.6 % Glucose LevelOctober 2024 4:57pmOctober 2024 4:95sy022 mg/dLAbove high kjippf63-762Lqldlexumcy (%) (Auto)January 12, 2025 4:57pmOctober 2024 4:57pm11.3 %Below low .5-60.0Urine KetonesOctober 2024 3:00am NEGATIVE mg/dLNEGATIVEChloride LevelOctober 2024 5:03amOctober 2024 5:00tl134 mmol/C99-421Fluuqwvsyjq (%) (Auto)January 13, 2025 5:03amOctober 2024 5:03am24.0 %20.5-60.0Chloride LevelOct2024 5:00amOct2024 5:19fh119 mmol/C41-953Plnasjxnkdf (%) (Auto)January 14, 2025 5:00am January 14, 2025 5:00am21.8 %20.5-60.0Serum Total ProteinOctober 2024 3:38pmOct2024 3:38pm7.3 g/dL6.3-8.0Neutrophils (%) (Auto)January 19, 2025 3:38pmOctober 2024 3:38pm61.7 %Sodium LevelAugust 2024 2:35pmAugust 2024 2:10eb415 mmol/W663-007Frfvntdkp Red Blood Cells #November 17, 2024 2:35pmAugust 2024 2:35pm<0.01 k/uL<0.01Potassium LevelOct2024 4:57pmOctober 2024 4:57pm4.4 mmol/L3.5-5.1Mean Corpuscular HemoglobinOctober 2024 4:57pmOctober 2024 4:57pm30.9 pg25.9-34.0 Urine Leukocyte EsteraseOctober 2024 3:00amNEGATIVENEGATIVECarbon Dioxide LevelOctober 2024 5:03amOctober 2024 5:03am25.6 mmol/L21.0-32.0Mean Corpuscular HemoglobinOctober 2024 5:03amOctober 2024 5:03am30.5 pg 25.9-34.0Carbon Dioxide LevelOctober 2024 5:00amOctober 2024 5:00am 23.3 mmol/L21.0-32.0Mean Corpuscular HemoglobinOctober 2024 5:00amOctober , 2024 5:00am30.2 pg25.9-34.0Sodium LevelOctober 2024 3:38pmOctober 2024 3:60jp632 mmol/T859-509Wdbdqdkjd Red Blood Cells #January 19, 2025 3:38pmOctober 2024 3:38pm<0.01 k/uL<0.01Blood Urea NitrogenAugust 2024 2:35pmAugust 2024 2:35pm13 mg/dL-Platelet CountAugust 2024 2:35pmAugust 2024 2:34it258 k/xB374-679Yiyvbi LevelOct2024 4:57pmOctober 2024 4:72df138 mmol/G928-017Hmmz Corpuscular Hemoglobin ConcentOct2024 4:57pmOctober 2024 4:57pm33.7 g/dL29.9-35.2Urine MucusOct2024 3:00amNONE SEENNONE SEENCreatinineOct2024 5:03amOctober 2024 5:03am1.38 mg/dLAbove high normal0.70-1.30Mean Corpuscular Hemoglobin ConcentOctober 2024 5:03amOctober 2024 5:03am 33.8 g/dL29.9-35.2CreatinineOctober 2024 5:00amOctober 2024 5:00am 1.38 mg/dLAbove high normal0.70-1.30Mean Corpuscular Hemoglobin ConcentOctober 2024 5:00amOctober 2024 5:00am33.4 g/dL29.9-35.2Blood Urea Nitrogen January 19, 2025 3:38pmOctober 2024 3:38pm21 mg/dL9-24Platelet Count January 19, 2025 3:38pmOct2024 3:01tc852 k/qF522-426Jygoewlb PhosphataseAugust 2024 2:35pmAugust 2024 2:35pm90 U/T68-008Okfp Corpuscular HemoglobinAugust 2024 2:35pmAugust 2024 2:35pm30.5 pg 26.0-34.0Mean Corpuscular VolumeOctober 2024 4:57pmOct2024 4:57pm91.9 fL80.0-94.0Urine NitriteOct2024 3:00amNEGATIVENEGATIVE Estimated GFR ()January 13, 2025 5:03amOct2024 5:03am60>=60 mL/min/1.73m 2Mean Corpuscular VolumeOct2024 5:03am January 13, 2025 5:03am90.3 fL80.0-94.0Estimated GFR ()January 14, 2025 5:00amOct2024 5:00am60>=60 mL/min/1.73m 2Mean Corpuscular VolumeOct2024 5:00amOctober 2024 5:00am90.2 fL80.0-94.0Alkaline PhosphataseOct2024 3:38pmOctober 2024 3:38pm90 U/K56-438Saby Corpuscular HemoglobinOctober 2024 3:38pmOctober 2024 3:38pm30.5 pg 26.0-34.0Calcium LevelAugust 2024 2:35pmAugust 2024 2:35pm9.6 mg/dL 8.5-10.2Mean Corpuscular Hemoglobin ConcentAugust 2024 2:35pmAugust 2024 2:35pm32.5 g/dL30.5-36.0Monocytes # (Auto)January 12, 2025 4:57pmOctober 2024 4:57pm1.0 10 3/uLAbove high normal0.3-0.8Urine pHOctober 2024 3:00am5.55.0-9.0Estimated GFR (Non- AmericanOctober , 2024 5:03am January 13, 2025 5:58bq84Drmyj low normal>=60 mL/min/1.73m 2Monocytes # (Auto) January 13, 2025 5:03amOctober 2024 5:03am1.2 10 3/uLAbove high normal 0.3-0.8Estimated GFR (Non- AmericanOctober 2024 5:00amOctober , 2024 5:32sp89Ziccx low normal>=60 mL/min/1.73m 2Monocytes # (Auto)January 14, 2025 5:00amOctober 2024 5:00am0.9 10 3/uLAbove high normal0.3-0.8Calcium LevelOctober 2024 3:38pmOctober 2024 3:38pm9.9 mg/dL8.5-10.2Mean Corpuscular Hemoglobin ConcentOctober 2024 3:38pmOctober 2024 3:38pm 32.9 g/dL30.5-36.0Anion GapAugust 2024 2:35pmAugust 2024 2:35pm10 mmol/L8-15Mean Corpuscular VolumeAugust 2024 2:35pmAugust 2024 2:35pm94.0 fL80.0-100.0Monocytes (%) (Auto)January 12, 2025 4:57pmOctober 2024 4:57pm9.3 %1.7-12.0Urine ProteinOctober 2024 3:00amTRACE mg/dL NEG/TRACEGlobulinOctober 2024 5:03amOctober 2024 5:03am3.9 g/dL Monocytes (%) (Auto)January 13, 2025 5:03amOct2024 5:03am15.7 % Above high normal1.7-12.0GlobulinOct2024 5:00amOctober 2024 5:00am4.2 g/dLMonocytes (%) (Auto)January 14, 2025 5:00amOctober 2024 5:00am12.5 %Above high normal1.7-12.0Anion GapOct2024 3:38pmOctober 2024 3:38pm8 mmol/L8-15Mean Corpuscular VolumeOct2024 3:38pm January 19, 2025 3:38pm92.6 fL80.0-100.0Estimated GFR (CKD-EPI)November 17, 2024 2:35pmAugust 2024 2:35pm54 mL/min/1.73m???Below low normal>=60 Estimated Glomerular Filtration Rate (eGFR) is calculated using the 2020 CKD-EPI creatinine equation. This equation utilizes serum creatinine, sex, and age as parameters. The creatinine assay has traceable calibration to isotope dilution- mass spectrometry. Refer to KDIGO guidelines for clinical interpretation. In patients with unstable renal function, e.g. those with acute kidney injury, the eGFRmay not accurately reflect actual GFR.Red Blood CountAugust 2024 2:35pmAugust 2024 2:35pm4.19 m/uLBelow low normal4.20-6.00Mean Platelet VolumeOct2024 4:57pmOctober 2024 4:57pm9.5 fL9.5-13.5Urine RBC January 13, 2025 3:71sp0-1 #/HPFAbnormal (applies to non-numeric results)0-2 Glucose LevelOct2024 5:03amOctober 2024 5:26xq980 mg/dLAbove high qemmrs76-746Uqwu Platelet VolumeOct2024 5:03amOctober 2024 5:03am10.1 fL9.5-13.5Glucose LevelOct2024 5:00amOctober 2024 5:82wo906 mg/dLAbove high dijfdt96-568Jkpz Platelet VolumeOct2024 5:00amOctober 2024 5:00am10.2 fL9.5-13.5Estimated GFR (CKD-EPI)January 19, 2025 3:38pmOct2024 3:38pm55 mL/min/1.73m???Below low normal>=60 Estimated Glomerular Filtration Rate (eGFR) is calculated using the 2020 CKD-EPI creatinine equation. This equation utilizes serum creatinine, sex, and age as parameters. The creatinine assay has traceable calibration to isotope dilution- mass spectrometry. Refer to KDIGO guidelines for clinical interpretation. In patients with unstable renal function, e.g. those with acute kidney injury, the eGFRmay not accurately reflect actual GFR.Red Blood CountOct2024 3:38pmOctober 2024 3:38pm4.33 m/uL4.20-6.00HematocritAugust 2024 2:35pmAugust 2024 2:35pm39.4 %39.0-51.0Neutrophils # (Auto)January 12, 2025 4:57pmOctober 2024 4:57pm8.4 10 3/uLAbove high normal1.4-6.5Urine Specific GravityOct2024 3:00am1.0101.005-1.025Potassium LevelOct2024 5:03amOctober 2024 5:03am3.8 mmol/L3.5-5.1Neutrophils # (Auto) January 13, 2025 5:03amOctober 2024 5:03am4.5 10 3/uL1.4-6.5Potassium LevelOct2024 5:00amOctober 2024 5:00am3.9 mmol/L3.5-5.1 Neutrophils # (Auto)January 14, 2025 5:00amOctober 2024 5:00am4.5 10 3/uL1.4-6.5HematocritOctober 2024 3:38pmOctober 2024 3:38pm40.1 % 39.0-51.0Monocytes (%) (Auto)November 17, 2024 2:35pmAugust 2024 2:35pm 10.6 %Neutrophils (%) (Auto)January 12, 2025 4:57pmOctober 2024 4:57pm 77.6 %Above high .0-75.0Urine Squamous Epithelial CellsOctober 2024 3:00amRARE #/LPFNONE/RARESodium LevelOct2024 5:03amOctober 2024 5:33ue174 mmol/LBelow low lqhkyq834-394Vrddnmyyrxp (%) (Auto)January 13, 2025 5:03amOctober 2024 5:03am58.4 %43.0-75.0Sodium LevelOct2024 5:00amOctober , 2024 5:08ur952 mmol/U929-940Qpafrekvcwp (%) (Auto) January 14, 2025 5:00amOctober 2024 5:00am63.3 %43.0-75.0Monocytes (%) (Auto)January 19, 2025 3:38pmOctober 2024 3:38pm8.4 %Corrected White Blood CountAugust 2024 2:35pmAugust 2024 2:35pm6.50 k/uL3.70-11.00 Platelet CountOctober 2024 4:57pmOctober 2024 4:34ti258 10 3/uL 150-450Urine UrobilinogenOctober 2024 3:00am0.2 EU/dL0.2-1.0Total BilirubinOctober 2024 5:03amOctober 2024 5:03am0.8 mg/dL0.2-1.0 Platelet CountOctober 2024 5:03amOctober 2024 5:02aj928 10 3/uL 150-450Total BilirubinOctober 2024 5:00amOctober , 2024 5:00am0.8 mg/dL0.2-1.0Platelet CountOctober 2024 5:00amOctober , 2024 5:43aq807 10 3/cQ984-243Lbnqpvqnx White Blood CountOctober 2024 3:38pmOctober 2024 3:38pm6.53 k/uL3.70-11.00Nucleated RBC Relative Count (auto)November 17, 2024 2:35pmAugust 2024 2:35pm0.0 /100{WBC}Red Blood CountOctober 2024 4:57pmOctober 2024 4:57pm4.56 10 6/uLBelow low normal4.70-6.10Urine WBCOctober 2024 3:64ub7-3 #/HPFAbnormal (applies to non-numeric results) NONE SEENTotal ProteinOctober 2024 5:03amOctober , 2024 5:03am7.1 g/dL 6.4-8.2Red Blood CountOctober 2024 5:03amOctober , 2024 5:03am4.33 10 6/uLBelow low normal4.70-6.10Total ProteinOctober 2024 5:00amOctober , 2024 5:00am7.2 g/dL6.4-8.2Red Blood CountOctober 2024 5:00amOctober , 2024 5:00am4.41 10 6/uLBelow low normal4.70-6.10Nucleated RBC Relative Count (auto)January 19, 2025 3:38pmOctober 2024 3:38pm0.0 /100{WBC}Red Cell Distribution WidthAugust 2024 2:35pmAugust 2024 2:35pm13.4 % 11.5-15.0Red Cell Distribution WidthOctober 2024 4:57pmOctober 2024 4:57pm12.7 %11.0-15.0Red Cell Distribution WidthOctober 2024 5:03amOctober 2024 5:03am12.5 %11.0-15.0Red Cell Distribution WidthOctober 2024 5:00amOctober 2024 5:00am12.4 %11.0-15.0Red Cell Distribution WidthOctober 2024 3:38pmOctober 2024 3:38pm12.7 %11.5-15.0Mean Platelet Volume November 17, 2024 2:35pmAugust 2024 2:35pm9.6 fL9.0-12.7Corrected White Blood CountOctober 2024 4:57pmOctober 2024 4:57pm10.8 10 3/uL 4.0-11.0Corrected White Blood CountOctober 2024 5:03amOctober 2024 5:03am7.8 10 3/uL4.0-11.0Corrected White Blood CountOctober 2024 5:00am January 14, 2025 5:00am7.1 10 3/uL4.0-11.0Mean Platelet VolumeOctober 2024 3:38pmOctober 2024 3:38pm9.6 fL9.0-12.7Differential CommentAugust 2024 2:35pmAugust 2024 2:35pmAutoDifferential CommentOctober 2024 3:38pmOctober 2024 3:38pmAutoImmature Granulocyte # (Auto)November 17, 2024 2:35pmAugust 2024 2:35pm<0.03 k/uL<0.10Immature Granulocyte # (Auto)January 19, 2025 3:38pmOctober 2024 3:38pm<0.03 k/uL<0.10Immature Granulocyte % (Auto)November 17, 2024 2:35pmAugust 2024 2:35pm0.3 % Immature Granulocyte % (Auto)January 19, 2025 3:38pmOctober 2024 3:38pm 0.3 % Vital Signs Vital Reading Result Reference Range Collection Date/Time Height 70 [in_i] January 10, 2025 2:04plDlogyc377.19 kgOctober 2024 2:14pmHeart Rate75 /scq44-406Dszxejd 2024 2:14pmRespiratory rate16 /ftb05-40Kiqusys 2024 2:14pmBP Laablurm694 mm[Hg]100-140October 2024 2:14pmBP Xwutevlcl55 mm[Hg]60-100October 2024 2:14pmBMI (Body Mass Index)37.0 kg/r9Woobxql 2024 2:89xlPgaayq01 [in_i]January 20, 2025 11:16dmEchfmd379.30 kgOctober 2024 11:37amHeart Rate76 /ybu88-567Impnnsx 2024 11:37amRespiratory rate18 /kzo81-58Ykmoned 2024 11:37amOxygen saturation by Pulse wpbozluz81 %95-100October 2024 11:37amBP Ipogjjcm815 mm[Hg]100-140October 2024 11:37amBP Qfdrlsfvg09 mm[Hg]60-100October 2024 11:37amBMI (Body Mass Index)36.1 kg/u5Wykveuq 2024 11:37am Advance Directives Advance Directive Response Recorded Date/ Time Advance Directives Yes January 13, 2025 11:03am Insurance Providers Guarantor Rafat Najera Lory Address [address] [place] [address] [address] [facility] [id number] Info.Home Phone: Payer Group Member ID Coverage Type Subscriber Relationship to Subscriber Effective Date Expiration Date Medicare [id number] W Lory Id: [id number] [address] [place] [address] [address] [facility] [address] Home Phone: Email: Declined 2017SeBetsy TA PF Id: [id number] W Lory Id: [id number] [address] [place] [id number] Home Phone: Email: Declined 2017Self Encounters Encounter Location(s) Arrival/Admit Date Discharge/Departure Date Discharge/Departure Disposition Provider(s) Non-patient / Non-visit -[facility] A ugust 2024 2:35pm AMBER Mayorgaeparted Physician/Provider Office [facility] 2024 1:48pmOctober 2024 2:55pmDischarged to home care or self care (routine discharge)Partha Moore-patient / Oph-wvbcu-[facility] 2024 4:57pmEma Houston-patient / Qgb-cnbvc-Cbpwl [facility] 2024 3:00amEduarda Buchanan MD Non-patient / Did-jlhkf-Odztb [facility] 2024 5:00am Jorge Raman MDNon-patient / Svm-yaolc-Edhqh [facility] 2024 12:31pIke Solano-patient / Iny[facility]yicer[facility]ST[facility] 12:43pmChico Fisher-patient / Tfk-dfbsu-NVFUniversity [facility]October 2024 12:46pmChico Fisher-patient / Non-visit -[facility] 2024 3:38pmAnibal Vega MD [facility]:30am[facility] 2024 12:25pmDischarged to home care or self care (routine discharge)Danilo Thakkar DO Recent Diagnosis Onset Date Admit Date Back pain of thoracolumbar region Unknown January 10, 2025 1:48pm 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 Unknown January 10, 2025 1:48pm Elevated cholesterol Unknown December 1:48pm 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 Unknow n January 10, 2025 1:48pm Mucoepidermoid carcinoma of parotid gland Unknow n January 10, 2025 1:48pm Opiate analgesic use agreement exists Unknown January 10, 2025 1:48pm Type 2 diabetes mellitus wit h diabetic polyneuropathy Unknown January 10, 2025 1:48pm Type 2 diabetes mellitus with hyperglycemia Unkn own January 10, 2025 1:48pm HTN (hypertension) Unknown January 10, 2025 1:48pm Multiple myeloma Unknown January 10 025 1:48pm Back pain of thoracolumbar region Unknown January 20, 2025 11:30am 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 Unknown January 20, 2025 11:30am Elevated cholesterol Unknown December 11:30am 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 Unknow n January 20, 2025 11:30am Mucoepidermoid carcinoma of parotid gland Unknow n January 20, 2025 11:30am Opiate analgesic use agreement exists Unknown January 20, 2025 11:30am Pulmonary embolism December, January 20, 2025 11:30am Type 2 diabetes mellitus wit h diabetic polyneuropathy Unknown January 20, 2025 11:30am Type 2 diabetes mellitus with hyperglycemia Unkn own January 20, 2025 11:30am HTN (hypertension) Unknown January 20, 2025 11:30am Multiple myeloma Unknown January 20 025 11:30am Assessments Diagnosis Onset Date Resolution Status Admit Date Back pain of thoracolumbar region acuteOctober 2024 1:48pm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 acuteOctober 2024 1:48pmElevated cholesterolacuteOctober 2024 1:48pm [facility] (current) use of anticoagulantsacuteOct2024 1:48pm Mucoepidermoid carcinoma of parotid glandacuteOctober 2024 1:48pmOpiate analgesic use agreement existsacuteOct2024 1:48pmType 2 diabetes mellitus with diabetic polyneuropathyacuteOctober 2024 1:48pmType 2 diabetes mellitus with hyperglycemiaacuteOctober 2024 1:48pmHTN (hypertension)chronicOctober 2024 1:48pmMultiple myelomachronicOctober 2024 1:48pmBack pain of thoracolumbar regionacuteOctober 2024 11:30am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acuteOctober 2024 11:30amElevated cholesterolacuteOctober 2024 11:30amLong term (current) use of anticoagulantsacuteOctober 2024 11:30amMucoepidermoid carcinoma of parotid glandacuteOctober 2024 11:30amOpiate analgesic use agreement existsacuteOctober 2024 11:30amPulmonary embolismOct, uteOctober 2024 11:30amType 2 diabetes mellitus with diabetic polyneuropathyacute January 20, 2025 11:30amType 2 diabetes mellitus with hyperglycemiaacute January 20, 2025 11:30amHTN (hypertension)chronicOctober 2024 11:30am Multiple myelomachronicOctober 2024 11:30am Plan of Treatment Author Danilo Thakkar [facility] HospitalAuthoredOctober 2024 10:19pmI have instructed this patient to follow a comprehensive diabetic treatment plan. I have also instructed them to check their feet daily for calluses and nonhealing ulcers. I have instructed them to have a yearly dilated eye examination. I have reviewed their treatment goals: SBP less than 130, LDL less than 100, FBS less than 140, A1C less than 7%. I have instructed them to maintain a home BS log and bring the results to each of their office visits for review. I have explained the importance of routine monitoring of their A1C, Microalbumin and Lipids. I have explained the benefits of well controlled diabetes in preventing micro and macrovascular complications. Continue Tradjenta w/o interruption Humulin 70/30u: 50/20 before bkfst and evening meal Monitor BS AC and HS - update office after couple weeks Decreased evening insulin due to night time hypoglycemia w/o further episodes I have instructed the patient to inspect their feet daily for cuts and calluses. I have recommended shoes and inserts to prevent callus formation. I have reviewed fall precautions. I have instructed this patient to consume a healthy, low-fat, low-salt diet. I have also encouraged them to continue exercise with weight loss to achieve/maintain a BMI < 30. I have instructed this patient on the correct procedure for obtaining home BP measurements:? - rest for 5 minutes w/o talking. - positioned w/ feet on floor and arms supported. - average best 2/3 readings w/ goal < 135/85. - update office w/ home readings in 2 weeks. Continue Losartan without interruption s/p left Parotidectomy 09/17/24 No adjuvant treatment recommended by Surgeon Optional consultation w/ Rad/Onc Incision healing w/o bleeding or drainage I have instructed this patient on a low fat, high fiber diet and exercise. I have discussed the primary and secondary prevention benefits attributed to lowering LDL cholesterol. I have also discussed the medical treatment of elevated cholesterol, which is based on the 10 year ASCVD risk. Continue Atorvastatin without interruption No s/s progression. f/u Oncology Monitor for bone pain, decreased appetite and night sweats. Due to injury from a fall that occurred in June of 2023 Continue rest, ice/heat and Lidocaine. Continue Oxycodone as needed. XR w/ remote compression fracture PET/CT negative for pathologic fracture Referred to Orthopedics - TP injections w/ pain relieving benefits His pain has re-occurred and requesting Oxycodone. 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 This patient does not exhibit drug-seeking or aberrant behavior. This patient is able to continue with ADL, with an adequate quality of life, that they would not be able to achieve without the prescription pain medication. There has been no surgical treatment recommended for this condition. Use of non- opiate treatment should be continued, such as nonstrenuous and aquatic exercises. This patient has a pain management contract and they have been counseled on safe storage of the medication. They have been counseled on the risks of concomitant use with alcohol or sedating meds. PDMP is being followed and this patient's OARRS report is being monitored every 90 days. Multiple Myeloma w/ metastasis to the right humerus. Continue Oxycodone as needed for intractable pain Author Danilo Thakkar [facility] HospitalAuthoredOctober 2024 10:35pmI have instructed this patient to follow a comprehensive diabetic treatment plan. I have also instructed them to check their feet daily for calluses and nonhealing ulcers. I have instructed them to have a yearly dilated eye examination. I have reviewed their treatment goals: SBP less than 130, LDL less than 100, FBS less than 140, A1C less than 7%. I have instructed them to maintain a home BS log and bring the results to each of their office visits for review. I have explained the importance of routine monitoring of their A1C, Microalbumin and Lipids. I have explained the benefits of well controlled diabetes in preventing micro and macrovascular complications. Continue Tradjenta w/o interruption Humulin 70/30u: 50/20 before bkfst and evening meal Monitor BS AC and HS - update office after couple weeks Decreased evening insulin due to night time hypoglycemia w/o further episodes I have instructed the patient to inspect their feet daily for cuts and calluses. I have recommended shoes and inserts to prevent callus formation. I have reviewed fall precautions. I have instructed this patient to consume a healthy, low-fat, low-salt diet. I have also encouraged them to continue exercise with weight loss to achieve/maintain a BMI < 30. I have instructed this patient on the correct procedure for obtaining home BP measurements:? - rest for 5 minutes w/o talking. - positioned w/ feet on floor and arms supported. - average best 2/3 readings w/ goal < 135/85. - update office w/ home readings in 2 weeks. Continue Losartan without interruption I have instructed this patient on a low fat, high fiber diet and exercise. I have discussed the primary and secondary prevention benefits attributed to lowering LDL cholesterol. I have also discussed the medical treatment of elevated cholesterol, which is based on the 10 year ASCVD risk. Continue Atorvastatin without interruption s/p left Parotidectomy 09/17/24 No adjuvant treatment recommended by Surgeon Optional consultation w/ Rad/Onc Incision healing w/o bleeding or drainage No s/s progression. f/u Oncology Monitor for bone pain, decreased appetite and night sweats. Due to injury from a fall that occurred in June of 2023 Continue rest, ice/heat and Lidocaine. Continue Oxycodone as needed. XR w/ remote compression fracture PET/CT negative for pathologic fracture Referred to Orthopedics - TP injections w/ pain relieving benefits His pain has re-occurred and requesting Oxycodone. Instructed to contact Orthopedics for additional TP injections Pain management is another option Multiple Myeloma w/ metastasis to the right humerus. 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 This patient does not exhibit drug-seeking or aberrant behavior. This patient is able to continue with ADL, with an adequate quality of life, that they would not be able to achieve without the prescription pain medication. There has been no surgical treatment recommended for this condition. Use of non- opiate treatment should be continued, such as nonstrenuous and aquatic exercises. This patient has a pain management contract and they have been counseled on safe storage of the medication. They have been counseled on the risks of concomitant use with alcohol or sedating meds. PDMP is being followed and this patient's OARRS report is being monitored every 90 days. Acute RLL PE despite ongoing Warfarin use w/ therapeutic INR. Suggest a Warfarin failure and need to switch to LMWH vs DOAC. Future Tests Future scheduled test information is unavailable Pending Tests Pending diagnostic test information is unavailable Future Visits Future appointment information is unavailable Future Procedures Procedure Name Ordered Date Scheduled Date A1C with Estimated Average Glu January 10 2:42pm Future Medications Future medication information is unavailable Patient Instructions Patient instructions are unavailable
--- OUTSIDE RECORDS SUMMARY | 2025-01-20 14:31 | XMS_ITS | Clinical Summary ---
Author Organization [facility] Healthcare Address [address] [place] [address] Care Team Providers Care Filling Hauler Weaving Name Role Phone Danilo Thakkar DO Primary Care Provider [phone] Allergies Active AllergyReactionsCriticalityNoted KgnoMvnysdtiDswosouens87/03/2023 HjfhwqqkezxQroeojqa19/15/2017 Swelling of the mouth. Medications MedicationSigDispense QuantityRefillsLast FilledStart DateEnd DateStatus linaGLIPtin (Tradjenta) 5 MG tablet Take 5 mg by mouth in the morning.Active tamsulosin (Flomax) 0.4 MG 24 hr capsule Take 0.4 mg by mouth in the morning.Active insulin glargine (Lantus SoloStar) 100 UNIT/ML pen Inject 10 Units under the skin at bedtime.Active glimepiride (Amaryl) 1 MG tablet Take 4 mg by mouth in the morning. Take with meals.Active gabapentin (Neurontin) 300 MG capsule Take 300 mg by mouth in the morning and 300 mg in the evening and 300 mg before bedtime.Active atorvastatin (Lipitor) 20 MG tablet Take 20 mg by mouth in the morning.Active warfarin (Coumadin) 5 MG tablet Take 5 mg by mouth. Take as directed per After Visit Summary.Active oxyCODONE (Oxy-IR) 5 MG immediate release capsule Take 5 mg by mouth 2 (two) times a day as needed for severe pain.Active losartan (Cozaar) 50 MG tablet Take 50 mg by mouth in the morning.Active escitalopram (Lexapro) 10 MG tablet Take 10 mg by mouth in the morning.Active hydrocortisone 2.5 % cream APPLY TO FACE ONCE A DAY FRIDAY THROUGH FRIDAY OFF ON WEEKENDS (REPEAT NEEDED FOR FLARES)11/15/2022ctive Active Problems ProblemNoted DateDiagnosed DateAcute chest wall pain08/27/2023ack pain 08/27/2023arpal tunnel syndrome on right08/27/2023hronic kidney disease 08/27/2023GI bleed08/27/2023Long term (current) use of wajxfdqkeyytgr16/05/2024 Multiple mzasvbn3908/27/2023Mild episode of recurrent major depressive disorder 08/11/20239148Miureakcyvncdigc81/20/2024Mass of left parotid gland01/27/2023Malaise and curpamm7801/24/20236107Kmyksnbucmebvc14/03/3733Ztkakbqpmzkg03/03/2023PH (benign prostatic hyperplasia)01/24/2023Malignant neoplasm metastatic to bone01/24/2023 Complex regional pain syndrome of right upper rhamrftqa67/03/2023Stage 3a chronic kidney vdhtmvq9008/12/2022Type 2 diabetes mellitus with diabetic chronic kidney gwbdmcl7608/12/2022hronic pain due to skdtwqio20/14/2018Paraproteinemia 11/28/2016Anemia, ffyegwxgsqn05/26/2017 Immunizations ImmunizationAdministration DatesNext DueInfluenza, High Dose Seasonal, Preservative Free01/07/2017Influenza, Seasonal, Quadrivalent, Adjuvanted 01/02/2022Influenza, Tiudqssmzqj41/11/2023,11/26/2019,01/20/2019,01/08/2017, 01/31/2016Influenza, injectable, quadrivalent, preservative free12/23/2016 Influenza, trivalent, bvsrxxgwyx28/29/2021,01/13/2018Pneumococcal Conjugate PCV 13105/10/2014Pneumococcal Polysaccharide RCPW919203/25/2014,03/08/2014,10/24/2004Td (adult), 5 Lf tetanus toxoid, preservative free, ycpgwvvg26/09/2013,12/25/2011 Family History Medical HistoryRelationNameCommentsCODFatherCancerFatherCODMotherCancerMother DiabetesMotherCancerOtherDiabetesOtherRelationNameStatusCommentsFatherDeceased MotherDeceasedOther Social History Tobacco UseTypesPacks/DayYears UsedDateSmoking Tobacco: FormerCigarettesPassive Smoke Exposure: PastSmokeless Tobacco: Never Tobacco Cessation:Counseling Given: Yes Alcohol UseStandard Drinks/WeekCommentsNot Currently0 (1 standard drink = 0.6 oz pure alcohol)Sex and Gender InformationValueDate RecordedSex Assigned at Not on fileLegal AlnMwmd4106/05/2022 7:08 PM EDTGender IdentityNot on fileSexual OrientationNot on file Last Filed Vital Signs Vital SignReadingTime TakenCommentsBlood Utgbcnyc607/8208 3:25 PM EDT Ddofw182310/23/2023 3:25 PM EDTTemperature--Respiratory Xlzi365910/14/2024 3:56 PM EDTOxygen Saturation--Inhaled Oxygen Concentration--Sphdgr381 kg (260 lb) 10/14/2024 3:56 PM HVPBlsbnj785.8 cm (5' 10 )10/14/2024 3:56 PM EDTBody Mass Index37.31010/14/2024 3:56 PM EDT Plan of Treatment DateTypeDepartmentCare Team (Latest Contact Info)Glokvzlvofu45/30/2025 3:30 PM EDTProcedure Visit [facility] [address] [facility] [address] [place] [address] Jabier Drummond, DPNicole [address] [facility] [address] [place] [address] Health MaintenanceDue DateLast DoneCommentsDTaP/Tdap/Td Vaccines (3 - Tdap) , 12/25/2011COVID-19 Vaccine ( season)2024 02/10/2024, 12/25/2022, 10/01/2021, Additional history existsPneumococcal Vaccine: 65+ PzfbaFazpxavck51/17/2015, 01/23/2015, 03/08/2014, Additional history existsInfluenza PzwgpqxDpytkvxtv33/20/2025, 01/01/2023, 01/02/2022, Additional history existsHIB VaccinesAged OutNo longer eligible based on patient's age to complete this topicHPV VaccinesAged OutNo longer eligible based on patient's age to complete this topicHepatitis A VaccinesAged OutNo longer eligible based on patient's age to complete this topicHepatitis B VaccinesAged OutNo longer eligible based on patient's age to complete this topicIPV Vaccines Aged OutNo longer eligible based on patient's age to complete this topic Meningococcal B VaccineAged OutNo longer eligible based on patient's age to complete this topicMeningococcal VaccineAged OutNo longer eligible based on patient's age to complete this topicRotavirus VaccinesAged OutNo longer eligible based on patient's age to complete this topic Insurance Care Teams Team MemberRelationshipSpecialtyStart DateEnd Date Danilo Thakkar DO [address] [facility] [place] [address] PCP - GeneralInternal Hjdnfarb92/3/23
--- OUTSIDE RECORDS SUMMARY | 2025-01-20 14:31 | XMS_ITS | Clinical Summary ---
Author Organization [facility] Address [address] [place] [address] Phone Care Team Providers Care Food Service Kitchen Supervisor Name Role Phone Unavailable Primary Care Provider Unavailabl e Allergies Active AllergyReactionsCriticalityNoted BclaFghjmflhEyjdttjjojMyenvgj96/02/2013 TvglhuhunrcbsUkmayxa70/20/2024PenicillinsSwelling,Sjlouoh5808/02/2013 Swelling of the mouth. Medications MedicationSigDispense QuantityRefillsLast FilledStart DateEnd DateStatus gabapentin (Neurontin) 100 mg capsule Take by mouth.10/22/2017Active glimepiride (Amaryl) 1 mg tablet Take 1 tablet (1 mg) by mouth.Active insulin glargine (Lantus) 100 unit/mL injection Inject under the skin.Active losartan (Cozaar) 50 mg tablet Take by mouth.01/13/2023ctive oxyCODONE (Oxy-IR) 5 mg immediate release capsule Take 1 capsule (5 mg) by mouth 2 times a day as needed.Active atorvastatin (Lipitor) 20 mg tablet Take by mouth.01/13/2023ctive warfarin (Coumadin) 5 mg tablet TAKE 1 TO 2 TABLETS BY MOUTH ONCE DAILY PER INR SBGKKNN3704/04/2023ctive tamsulosin (Flomax) 0.4 mg 24 hr capsule Take by mouth.01/13/2023ctive escitalopram (Lexapro) 10 mg tablet Take by mouth.01/13/2023ctive sennosides-docusate sodium (Asiya-Colace) 8.6-50 mg tablet Take 2 tablets by mouth twice a day.03/11/2017Active peg-sod ial-GnGb-ONl-asb-C (MoviPrep) 100-7.5-2.691 gram solution Take by mouth.07/28/2013ctive linaGLIPtin (Tradjenta) 5 mg tablet Take by mouth.01/13/2023ctive hydrocortisone 2.5 % cream APPLY TO FACE ONCE A DAY FRIDAY THROUGH FRIDAY OFF ON WEEKENDS (REPEAT NEEDED FOR FLARES)11/15/2022ctive Active Problems ProblemNoted DateDiagnosed DateParotid mass05/13/2023 Social History Tobacco UseTypesPacks/DayYears UsedDateSmoking Tobacco: NeverSmokeless Tobacco: NeverPHQ-2AnswerDate RecordedPatient Health Questionnaire-2 Udzrb752Sex and Gender InformationValueDate RecordedSex Assigned at BirthNot on fileLegal ZmlUchd86/27/2023 6:35 PM EDTGender IdentityNot on fileSexual OrientationNot on file Last Filed Vital Signs Vital SignReadingTime TakenCommentsBlood Pressure--Pulse--Exwybihmukp12.4 ??C (97.6 ??F)05/13/2023 12:24 PM ESTRespiratory Rate--Oxygen Saturation--Inhaled Oxygen Concentration--Yjotav165 kg (261 lb 8 oz)05/13/2023 12:24 PM ESTHeight 177.8 cm (5' 10 )05/13/2023 12:24 PM ESTBody Mass Index37.52005/13/2023 12:24 PM EST Plan of Treatment Health MaintenanceDue DateLast DoneCommentsLipid Panel1941Medicare Annual Wellness Visit (AWV)1941KD: Urine Protein Ibesxuckk40/08/1960Zoster Vaccines (1 of 2)01/30/1960DTaP/Tdap/Td Vaccines (1 - Tdap), 12/25/2011RSV High Risk: (Elderly (60+) or Population) (1 - 1-dose 75+ series)01/30/2016Influenza Vaccine (#1)/01/2023, 01/02/2022, 12/20/2020, Additional history existsCOVID-19 Vaccine ( season) /06/2022, 01/22/2022, 10/01/2021, Additional history exists Pneumococcal BcynwodOsehbndry92/17/2015, 01/23/2015, 03/08/2014, Additional history existsHIB VaccinesAged OutNo longer eligible based on patient's age to complete this topicHPV VaccinesAged OutNo longer eligible based on patient's age to complete this topicHepatitis A VaccinesAged OutNo longer eligible based on patient's age to complete this topicHepatitis B VaccinesAged OutNo longer eligible based on patient's age to complete this topicIPV VaccinesAged OutNo longer eligible based on patient's age to complete this topicMeningococcal VaccineAged OutNo longer eligible based on patient's age to complete this topic Rotavirus VaccinesAged OutNo longer eligible based on patient's age to complete this topic Insurance
--- OUTSIDE RECORDS SUMMARY | 2025-01-20 14:31 | XMS_ITS | Clinical Summary ---
Author Organization [facility] tem Address [facility] [id number] [address] [place] [address] Care Team Providers Care Cost Accountant Name Role Phone Danilo Thakkar Primary Care Provider [phone] Social History Tobacco UseTypesPacks/DayYears UsedDateSmoking Tobacco: Never AssessedChildcare AnswerDate RzdbsiqjSkrabyygkBihdnvh68/12/2019EmploymentAnswerDate Recorded EbkqeidwbgPcjoobi00/12/2019Purpose - LifeAnswerDate RecordedPurpose and direction in lokkYnmcqew90/11/2021ex and Gender InformationValueDate Recorded Sex Assigned at BirthNot on fileLegal BltGquo6710/27/2014 11:28 AM EDTGender IdentityNot on fileSexual OrientationNot on file Plan of Treatment Health MaintenanceDue DateLast DoneCommentsDepression Njucqyvfn20/08/1953Tobacco Hmkquxweu95/08/1953DTaP,Tdap and Td Vaccines (1 - Tdap)01/30/1960Zoster (Shingles) Vaccine (1 of 2)1991Fall Risk Sggwrywoj70/08/2006Influenza Gcpepvm63/01/640649, 01/07/2017, 12/23/2016 Medical Devices Not on file Insurance * Guarantor: Rafat Henley TypeRelation to PatientDate of BirthPhone Billing AddressPersonal/TuejslEwjq1940 [address] [place] [address] Care Teams Team MemberRelationshipSpecialtyStart DateEnd Date Danilo Thakkar DO [address] [place] [address] PCP - GeneralInternal Medicine06/25/18
--- OUTSIDE RECORDS SUMMARY | 2025-01-20 14:42 | XMS_ITS | CCD ---
Author Organization [facility] Care Team Providers Care Cosmetics Supervisor Name Role Phone Adamowicz, Shawn Unavailable Unavailable Adamowicz, Shawn Unavailable Unavailable Adamowicz, Shawn Unavailable Unavailable DANILO CLARK~[phone] UNKNOWN Unavailable Unavailable Adamowicz, Shawn Unavailable Unavailable Adamowicz, Shawn Unavailable Unavailable Paulowicz, Shawn Unavailable Unavailable DANILO CLARK~[phone] UNKNOWN Unavailable Unavailable Ronny Sujit~[phone] UNKNOWN Unavailable Unavailable Danilo Clark DO Primary [...] Provider Amber QUIÑONEZ, Danilo Primary Care Provider [phone] Amber QUIÑONEZ, Danilo Attending Provider [phone] Anibal Ash MD, V Attending Provider Gurpreet Pang MD Attending Provider Renee Dean CMA Attending Provider Unavaila bethanie Palmer APRN Shawn Emergency Provider Danilo Clark DO Primary Care Provider Estela DE LA CRUZ Shawn Emergency Provider [...] Provider Anibal Ash MD, V Attending Provider [phone] Allergies Allergy ClassificationReported Allergen(s)Allergy TypeDate of OnsetReaction(s) FacilityPenicillins (antibiotic) (1 source)PenicillinsDrug Zsbihrh53-93-7487KncoldgfVbyrfchly Clinic Work Phone: (20 sources)Penicillins; Translations: [PENICILLINS]Drug Bjwsxzm60-74-5371 Swelling, UnknownC[facility] Work Phone: (20 sources)penicillAMINE; Translations: [PENICILLAMINE]Drug Yjemqha76-18-8648 UnknownNoLehigh Valley Health Network [facility] Other (10 sources)PenicillinsPropensity to adverse reactionsUnknowPeaceHealth [facility] Other (1 source)PenicillinsDrug allergy (disorder)42-70-0086LjtAv[facility] (20 sources)Lisinopril; Translations: [LISINOPRIL]Drug Pkbnkry59-24-5855DnktoqqPeoples HospitalComment on above:Onset Date: 10/23/2012 (18 sources)Penicillin VDrug Fqqtldy58-35-7100Nrjqzak, Unknown ReactionOhiohealth Shelby Hospital (10 sources)LisinoprilPropensity to adverse -05-1547DVJZ Healthcare Work Phone: (10 sources)PenicillinsDrug Medtfpw54-33-2700VdbfdyllZFYF Healthcare (20 sources)PenicillinsDrug Qknwkyw24-45-6505HfhafqebSdasqxgnu Clinic Work Phone: (1 source)LisinoprilDrug Gjpshnl83-58-6793JjkwkzbyyOhiohealth Shelby Hospital Repository (1 source)penicillAMINEDrug Ucoomrw42-64-9074LqogbubfbOhiohealth Shelby Hospital Repository (1 source)PenicillinDrug Bvtdgie91-17-9995ImvttgqmcOhiohealth Shelby Hospital Repository (1 source)PenicillinsDrug allergy (disorder)89-42-2043AdkixmjwfOhiohealth Shelby Hospital Repository Medications Current Medications MedicationDrug Class(es)DatesSig (Normalized)Sig (Original)Accu-Chek Elizabeth Plus - (8 sources)Accu-Chek Elizabeth Plus - USE AND DISCARD 1 TEST STRIP TO CHECK HOME BLOOD SUGAR TWO TIMES A DAY for 90 Activeascorbic acid 4700 mg / polyethylene glycol 3350 006167 mg / potassium chloride 1015 mg / sodium ascorbate 5900 mg / sodium chloride 2690 mg / sodium sulfate 7500 mg powder for oral solution (15 sources)Osmotic Laxative, Vitamin CStart: 86-06-3586itt-sod oqb-DxGu-NAb-asb-C (MoviPrep) 100-7.5-2.691 gram solution Take by mouth. 0 07/28/2013 ActiveStart: 16-33-9042EvvmZgsv 100 GM as directed Orally 1 for 1 July, Not-Takingatorvastatin 20 mg oral tablet (20 sources)HMG-CoA Reductase InhibitorStart: 08-15-2023 End: 49-63-0180gxpf 1 tablet by mouth once daily in the eveningAtorvastatin 20 mg tablet Active 0 .ROUTE .COMPLEX 90 3 August 05, 2024 7:41am TAKE 1 TABLET BY MOUTH ONCE DAILY IN THE EVENING Complies with drug therapyStart: 12-12-2016 End: 50-16-9580jazk 1 tablet by mouth once dailyAtorvastatin 20 mg Tablet Discontinued 20 MG PO Daily December 12, 2016 12:00am August 15, 2023 8:39am hyperlipidemiaComment on above:Take 20 mg by mouth once daily.Blood-Glucose Meter,Continuous (Dexcom G7 Renderer) misc (5 sources)Start: 58-79-5297Fcrsy-Glucose Meter,Continuous (Dexcom G7 Renderer) misc Active 0 .ROUTE .COMPLEX January 14, 2024 9:39pm USE AT HOME TO TEST BLOOD SUGAR 4-6 TIMES DAILY WITH SENSORSStart: 72-18-2206Tradj-Glucose Meter,Continuous (Dexcom G7 Renderer) misc Active 0 .ROUTE .COMPLEX January 14, 2024 8:39pm USE AT HOME TO TEST BLOOD SUGAR 4-6 TIMES DAILY WITH SENSORS Start: 10-17-2023 End: 67-55-0076Zgcpd-Glucose Meter,Continuous (Dexcom G7 Renderer) misc Discontinued 0 .Route October 17, 2023 12:00am January 14, 2024 9:39pm Use to test home BS 4-6x dailyStart: 10-17-2023 End: 47-05-1083Dobmx-Glucose Meter,Continuous (Dexcom G7 Renderer) misc Discontinued 0 .Route October 16, 2023 11:00pm January 14, 2024 8:39pm Use to test home BS 4-6x dailyStart: 78-55-5037Xfhbu-Glucose Meter,Continuous (Dexcom G7 Renderer) misc Active 0 .Route October 17, 2023 12:00am Use to test home BS 4-6x dailyBlood-Glucose Sensor (Dexcom G7 Sensor) device (16 sources)Start: 08-04-8399Boxwt-Glucose Sensor (Dexcom G7 Sensor) device Active 0 .ROUTE .COMPLEX 3 February 16, 2024 9:36am Type 2 diabetes mellitus with hyperglycemia assisted current use of anticoagulant therapy Type2 diabetes mellitus with hyperglycemia director long term care (current) use of anticoagulants USE TO TEST BLOOD SUGAR 4-6 TIMES DAILY. REMOVE AND REPLACE SENSOR EVERY 10 DAYS.Start: 38-42-3237Okzwu-Glucose Sensor (Dexcom G7 Sensor) device Active 0 .ROUTE .COMPLEX February 16, 2024 9:36am USE TO TEST BLOOD SUGAR 4-6 TIMES DAILY. REMOVE AND REPLACE SENSOR EVERY 10 DAYS.Start: 03-26-9721Vdset-Glucose Sensor (Dexcom G7 Sensor) device Active 0 .ROUTE .COMPLEX February 16, 2024 8:36am USE TO TEST BLOOD SUGAR 4-6 TIMES DAILY. REMOVE AND REPLACE SENSOR EVERY 10 DAYS.Start: 02-14-2024 End: 89-83-1897Uswte-Glucose Sensor (Dexcom G7 Sensor) device Discontinued 0 .ROUTE .COMPLEX 3 February 14, 2024 12:45pm February 16, 2024 9:37am Type 2 diabetes mellitus with hyperglycemia director long term care currentuse of anticoagulant therapy Type 2 diabetes mellitus with hyperglycemia director long term care (current) use of anticoagulants USE TO TEST BLOOD SUGAR 4-6 TIMES DAILY. REMOVE AND REPLACE SENSOR EVERY 10 DAYS.Start: 02-14-2024 End: 56-33-6179Dnvnl-Glucose Sensor (Dexcom G7 Sensor) device Discontinued 0 .ROUTE .COMPLEX February 132:45pm February 16, 2024 9:37am USE TO TEST BLOOD SUGAR 4-6 TIMES DAILY. REMOVE AND REPLACE SENSOR EVERY 10 DAYS.Start: 02-14-2024 End: 90-38-0014Szomn-Glucose Sensor (Dexcom G7 Sensor) device Discontinued 0 .ROUTE .COMPLEX February 131:45am February 16, 2024 8:37am USE TO TEST BLOOD SUGAR 4-6 TIMES DAILY. REMOVE AND REPLACE SENSOR EVERY 10 DAYS.Start: 10-17-2023 End: 05-12-1536Nkmcb-Glucose Sensor (Dexcom G7 Sensor) device Discontinued 0 .Route 3 October 17, 2023 12:00am February 14, 2024 12:46pm Type 2 diabetes mellitus with hyperglycemia assisted current use of anticoagulant therapy Type 2 diabetes mellitus with hyperglycemia assisted (current) use of anticoagulants Use to test home BS 4-6x dailyStart: 10-17-2023 End: 15-57-4962Ybglc-Glucose Sensor (Dexcom G7 Sensor) device Discontinued 0 .Route 3 October 17, 2023 12:00am February 14, 2024 12:46pm Use to test home BS 4-6x dailyStart: 10-17-2023 End: 25-11-9800Ouauk-Glucose Sensor (Dexcom G7 Sensor) device Discontinued 0 .Route 3 October 16, 2023 11:00pm February 14, 2024 11:46am Use to test home BS 4-6x dailyStart: 29-02-6027Zzlfw-Glucose Sensor (Dexcom G7 Sensor) device Active 0 .Route 3 October 17, 2023 12:00am Use to test home BS 4-6x dailyBlood- Glucose,Renderer,Cont (Dexcom G7 Renderer) misc (6 sources)Start: 76-38-9407Iwiuw-Glucose,Renderer,Cont (Dexcom G7 Renderer) misc Active 0 .ROUTE .COMPLEX 1 0 January 14, 2024 9:39pm Type 2 diabetes mellitus with hyperglycemia director long term care current use of insulin Type 2 diabetes mellitus with hyperglycemia assisted (current) use of insulin USE AT HOME TO TEST BLOOD SUGAR 4-6 TIMES DAILY WITH SENSORSStart: 69-15-0018Vhetb- Glucose,Renderer,Cont (Dexcom G7 Renderer) misc Active 0 .ROUTE .COMPLEX 1 January 1349:39pm USE AT HOME TO TEST BLOOD SUGAR 4-6 TIMES DAILY WITH SENSORSStart: 10-17-2023 End: 86-38-3943Wltlb-Glucose,Renderer,Cont (Dexcom G7 Renderer) misc Discontinued 0 .Route 1 0 October 17, 2023 12:00am January 14, 2024 9:39pm Type 2 diabetes mellitus with hyperglycemia assisted current use of insulin Type 2 diabetes mellitus with hyperglycemia director long term care (current) use of insulin Use to test home BS 4-6x dailyStart: 10-17-2023 End: 91-26-2393Scjbs-Glucose,Renderer,Cont (Dexcom G7 Renderer) misc Discontinued 0 .Route October 17, 2023 12:00am January 14, 2024 9:39pm Use to test home BS 4-6x dailyDEXCOM G7 VETERINARY MEDICINE DOCTOR misc (20 sources)Start: 82-34-8259MALWIB G7 VETERINARY MEDICINE DOCTOR misc USE AT HOME TO TEST BLOOD SUGAR 4-6 TIMES DAILY WITH SENSORS 01/18/2024 Activedoxycycline hyclate 100 mg oral tablet (20 sources)Tetracycline-class DrugStart: 09-19-2024 End: 64-01-9091kgmf 1 tablet by mouth twice dailydoxycycline (VIBRA-TABS) 100 mg tablet Take 1 tablet by mouth two times a day for 7 days. 14 ojygsn0809/19/2024 09/26/2024 ActiveStart: 04-16-2024 End: 55-28-3980iivj 1 capsule by mouth twice dailyDoxycycline Hyclate 100 mg capsule Discontinued 100 MG PO Twice daily 14 7 0 April 16, 2024 1:00am January 10, 2025 2:04pmStart: 09-09-2017 End: 53-50-8779aqwm 1 tablet by mouth twice dailyDoxycycline Hyclate 100 mg tablet Discontinued 100 MG PO Twice daily 20 10 0 September 09, 2017 12:00am June 04, 2023 9:29amStart: 12-13-2016 End: 35-19-8228viqu 1 tablet by mouth twice dailyDoxycycline Hyclate 100 mg tablet Discontinued 100 MG PO Twice daily 14 7 0 December 13, 2016 12:00am December 19, 2016 12:00am December 20, 2016 12:04am post-op antibacterial prophylaxisgabapentin 300 mg oral capsule (20 sources)Anti-epileptic AgentStart: 07-28-2023 End: 49-85-4289blng 1 capsule by mouth three times dailyGabapentin 300 mg capsule Active 0 .ROUTE .COMPLEX 270 August 23, 2024 10:09am TAKE 1 CAPSULE BY MOUTH THREE TIMES DAILY Complies with drug therapyStart: 94-19-3822oshsxnaoqq (Neurontin) 100 mg capsule Take by mouth. 0 10/22/2017 ActiveStart: 10-22-2017 End: 56-12-1321zeir 1 capsule by mouth three times dailyGabapentin 300 mg capsule Discontinued 300 MG PO Three times daily June 04, 2023 12:00am July 28, 2023 1:16pmGABAPENTIN ORAL Take by mouth. ActiveGABAPENTIN ORAL Take by mouth. 0 ActiveComment on above:Take by mouth.hydrocortisone 25 mg/ml topical cream (11 sources)CorticosteroidStart: 32-50-6940zruabqgvfbekbu 2.5 % cream APPLY TO FACE ONCE A DAY FRIDAY THROUGH FRIDAY OFF ON WEEKENDS (REPEAT NEEDED FOR FLARES) 11/15/2022 ActiveInsulin Nph And Regular Human (20 sources)InsulinStart: 40-10-0444Cdiadrn Nph And Regular Human (Humulin 70/30 U-100 Kwikpen) 100 unit/mL (70-30) insulin pen Active 0 .ROUTE .COMPLEX 20 02November 27, 2024 8:24am INJECT 50 UNITS SUBCUTANEOUSLY BEFORE BREAKFAST AND 25 BEFORE SUPPER Complies with drug therapyStart: 09-01-2024 End: 49-89-9861yaecqj 100 [IU] by subcutaneous injection twice dailyInsulin Nph And Regular Human (Humulin 70/30 U-100 Kwikpen) 100 unit/mL (70-30) insulin pen Discontinued 0 SUBCUT Twice daily September 01, 2024 6:27pm November 27, 2024 8:24am 60u SC before bkfst and 25u SC before supperStart: 71-92-3765ujwzez 100 [IU] by subcutaneous injection twice dailyInsulin Nph And Regular Human (Humulin 70/30 U-100 Kwikpen) 100 unit/mL (70-30) insulin pen Active 0 SUBCUT Twice daily September 01, 2024 6:27pm 60u SC before bkfst and 25u SC before supper Complies with drug therapyStart: 58-70-9603lvxlij 100 [IU] by subcutaneous injection twice dailyStart: 03-28-2024 End: 90-69-9405qqneam 100 [IU] by subcutaneous injection twice dailyInsulin Nph And Regular Human (Humulin 70/30 U-100 Kwikpen) 100 unit/mL (70-30) insulin pen Discontinued 0 SUBCUT Twice daily March 28, 2024 7:08pm September 01, 2024 6:42pm 50u SC before bkfst and 25u SC before supperStart: 03-28-2024 End: 87-16-5253fynqci 100 [IU] by subcutaneous injection twice dailyInsulin Nph And Regular Human (Humulin 70/30 U-100 Kwikpen) 100 unit/mL (70-30) insulin pen Discontinued 0 SUBCUT Twice daily March 28, 2024 7:08pm September 01, 2024 6:42pm 50u SC before bkfstand 25u SC before supperStart: 63-30-8081legbjp 100 [IU] by subcutaneous injection twice dailyInsulin Nph And Regular Human (Humulin 70/30 U-100 Kwikpen) 100 unit/mL (70-30) insulin pen Active 0 SUBCUT Twice daily March 28, 2024 7:08pm 50u SC before bkfst and 25u SC before supperStart: 04-84-7221bfufne 100 [IU] by subcutaneous injection twice daily Insulin Nph And Regular Human (Humulin 70/30 U-100 Kwikpen) 100 unit/mL (70-30) insulin pen Active 0 SUBCUT Twice daily March 28, 2024 6:08pm 50u SC before bkfst and 25u SC before supperStart: 02-03-2024 End: 49-90-4530cvegek 100 [IU] by subcutaneous injection twice dailyInsulin Nph And Regular Human (Humulin 70/30 U-100 Kwikpen) 100 unit/mL (70-30) insulin pen Discontinued 0 SUBCUT Twice daily 22 04February 03, 2024 6:17pm March 28, 2024 7:09pm 50u SC before bkfst and 25u SC before supperStart: 02-03-2024 End: 06-49-9287zoghfc 100 [IU] by subcutaneous injection twice dailyInsulin Nph And Regular Human (Humulin 70/30 U-100 Kwikpen) 100 unit/mL (70-30) insulin pen Discontinued 0 SUBCUT Twice daily February 03, 2024 6:17pm March 28, 2024 7:09pm 50u SC before bkfst and 25u SC before supperStart: 02-03-2024 End: 00-65-6687kwbwjk 100 [IU] by subcutaneous injection twice dailyInsulin Nph And Regular Human (Humulin 70/30 U-100 Kwikpen) 100 unit/mL (70-30) insulin pen Discontinued 0 SUBCUT Twice daily February 03, 2024 5:17pm March 28, 2024 6:09pm 50u SC before bkfst and 25u SC before supperStart: 01-22-2024 End: 20-29-5905dwrqgg 100 [IU] by subcutaneous injection twice dailyInsulin Nph And Regular Human (Humulin 70/30 U-100 Kwikpen) 100 unit/mL (70-30) insulin pen Discontinued 0 SUBCUT Twice daily 22 04January 22, 2024 8:22pm February 03, 2024 6:17pm 36u SC before bkfst and 20u SC before supperStart: 01-22-2024 End: 16-69-9065elngyq 100 [IU] by subcutaneous injection twice dailyInsulin Nph And Regular Human (Humulin 70/30 U-100 Kwikpen) 100 unit/mL (70-30) insulin pen Discontinued 0 SUBCUT Twice daily January 22, 2024 8:22pm February 03, 2024 6:17pm 36u SC before bkfst and 20u SC before supperStart: 01-22-2024 End: 60-71-6108wknasp 100 [IU] by subcutaneous injection twice dailyInsulin Nph And Regular Human (Humulin 70/30 U-100 Kwikpen) 100 unit/mL (70-30) insulin pen Discontinued 0 SUBCUT Twice daily January 22, 2024 7:22pm February 03, 2024 5:17pm 36u SC before bkfst and 20u SC before supperStart: 01-13-2024 End: 34-82-6574dprcuo 100 [IU] by subcutaneous injection twice dailyInsulin Nph And Regular Human (Humulin 70/30 U-100 Kwikpen) 100 unit/mL (70-30) insulin pen Discontinued 0 SUBCUT Twice daily 22 04January 13, 2024 9:11am January 22, 2024 8:22pm 30u SC before bkfst and 20u SC before supperStart: 01-13-2024 End: 72-29-3933najmrf 100 [IU] by subcutaneous injection twice dailyInsulin Nph And Regular Human (Humulin 70/30 U-100 Kwikpen) 100 unit/mL (70-30) insulin pen Discontinued 0 SUBCUT Twice daily January 13, 2024 9:11am January 22, 2024 8:22pm 30u SC before bkfst and 20u SC before supperStart: 01-13-2024 End: 72-56-5340yulksw 100 [IU] by subcutaneous injection twice dailyInsulin Nph And Regular Human (Humulin 70/30 U-100 Kwikpen) 100 unit/mL (70-30) insulin pen Discontinued 0 SUBCUT Twice daily January 13, 2024 8:11am January 22, 2024 7:22pm 30u SC before bkfst and 20u SC before supperStart: 12-31-2023 End: 59-07-8339Krytxfs Nph And Regular Human (Humulin 70/30 U-100 Kwikpen) 100 unit/mL (70-30) insulin pen Discontinued 20 UNIT SUBCUT Every morning 22 04December 31, 2023 12:37pm January 13, 2024 9:12am 15 unitsQHSStart: 12-31-2023 End: 32-13-2800Dnwpesc Nph And Regular Human (Humulin 70/30 U-100 Kwikpen) 100 unit/mL (70-30) insulin pen Discontinued 20 UNIT SUBCUT Every morning December 31, 2023 12:37pm January 13, 2024 9:12am 15 units QHSStart: 12-31-2023 End: 13-39-6562Cpkvvty Nph And Regular Human (Humulin 70/30 U-100 Kwikpen) 100 unit/mL (70-30) insulin pen Discontinued 20 UNIT SUBCUT Every morning December 31, 2023 11:37am January 13, 2024 8:12am 15 units QHSStart: 12-31-2023 Insulin Nph And Regular Human (Humulin 70/30 U-100 Kwikpen) 100 unit/mL (70-30) insulin pen Active 20 UNIT SUBCUT Every morning December 31, 2023 12:37pm 15 units QHSStart: 10-17-2023 End: 41-83-2650Hcmpahr Nph And Regular Human (Humulin 70/30 U-100 Kwikpen) 100 unit/mL (70-30) insulin pen Discontinued 15 UNIT SUBCUT Twice daily 22 04October 17, 2023 12:00am December 31, 2023 12:37pmStart: 10-17-2023 End: 59-55-4237Jqedbqe Nph And Regular Human (Humulin 70/30 U-100 Kwikpen) 100 unit/mL (70-30) insulin pen Discontinued 15 UNIT SUBCUT Twice daily October 16, 2023 11:00pm December 31, 2023 11:37amStart: 10-17-2023 End: 83-59-7382Afzmott Nph And Regular Human (Humulin 70/30 U-100 Kwikpen) 100 unit/mL (70-30) insulin pen Discontinued 15 UNIT SUBCUT Twice daily October 17, 2023 12:00am December 31, 2023 12:37pmHUMULIN 70/30 U-100 KWIKPEN 100 unit/mL (70-30) pen INJECT 20 UNITS SUBCUTANEOUSLY IN THE MORNING AND 15 AT BEDTIME Activelosartan potassium 50 mg oral tablet (20 sources)Angiotensin 2 Receptor BlockerStart: 04-16-2024 End: 89-48-0834flil 1 tablet by mouth once dailyLosartan 50 mg tablet Active 50 MG PO Daily 30 July 29, 2024 2:13pm Complies with drug therapyStart: 03-01-2024 End: 88-51-3264zraw 1 tablet by mouth twice dailyLosartan 50 mg tablet Discontinued 0 .ROUTE .COMPLEX 60 March 01, 2024 1:59pm April 16, 2 025 3:10pm Take 1 tablet by mouth twice dailyStart: 06-04-2023 End: 27-92-6432wgnm 1 tablet by mouth twice dailyLosartan 50 mg tablet Discontinued 50 MG PO Twice daily June 04, 2023 12:00am January 30, 2024 1:47pmStart: 01-13-2023 End: 18-62-8306oogm 1 tablet by mouth once dailyLosartan 50 mg tablet Discontinued 50 MG PO Daily January 30, 2024 1:47pm March 01, 2024 1:59pm oxyCODONE hydrochloride 5 mg oral tablet (20 sources)Opioid AgonistStart: 58-80-4210kylb 1 tablet by mouth every eight hours as needed for painoxyCODONE IR (ROXICODONE) 5 mg immediate release tablet Indications: Mucoepidermoid carcinoma (HCC)Take 1 tablet by mouth every 8 hours as needed for pain for up to 5 days. 10 tablet 09/18/2024 ActiveStart: 06-04-2023 End: 24-25-9968idhp 1 tablet by mouth every twelve hours as needed for pain Oxycodone 5 mg tablet Discontinued 5 MG PO Every 12 hours as needed for pain 60 30 0 July 14, 2024 July 15, 2024 6:14pm Multiple myeloma Back pain of thoracolumbar region Multiple myeloma not having achieved remission Low back pain, unspecified Pain in thoracic spineStart: 43-55-0075yjvy 1 tablet by mouth every twelve hours [...] oral capsule (20 sources)alpha-Adrenergic BlockerStart: 09-03-2023 End: 60-16-8946ydds 1 capsule by mouth once daily in the eveningTamsulosin 0.4 mg capsule Active 0 .ROUTE .COMPLEX 90 August 25, 2024 7:20am TAKE 1 CAPSULE BY MOUTH ONCE DAILY IN THE EVENING Complies with drug therapyStart: 30-88-5909tomt 1 capsule by mouth every twenty-four hourstamsulosin (Flomax) 0.4 mg 24 hr capsule Take by mouth. 0 01/13/2023 ActiveStart: 12-12-2016 End: 21-96-6243jzgu 1 capsule by mouth once daily at bedtimeTamsulosin 0.4 mg capsule,extended release 24hr Discontinued 0.4 MG PO Daily at bedtime December 12, 2016 12:00am September 03, 2023 12:52pm BPHComment on above:Take 0.4 mg by mouth once daily.warfarin sodium 5 mg oral tablet (20 sources)Vitamin K AntagonistStart: 54-50-1657miss 1-2 tablets by mouth once Warfarin 5 mg tablet Active 0 .ROUTE .COMPLEX 150 3 September 29, 2023 7:02am TAKE 1 TO 2 TABLETS BY MOUTH ONCE DAILY PER INR RESULTS Complies with drug therapy Start: 36-78-0579oyem 1-2 tablets by mouth onceWarfarin Active 0 .ROUTE .COMPLEX 150 September 29, 2023 7:02am TAKE 1 TO 2 TABLETS BY MOUTH ONCE DAILYPER INR RESULTSStart: 03-31-2017 End: 20-23-3216wfdt 1-2 tablets by mouth once dailyWarfarin 5 mg tablet Discontinued 0 PO Daily June 04, 2023 12:00am September 29, 2023 7:03am 1-2 tabl ets per INR orally daily;Start: 12-12-2016 End: 36-39-1323wort 5.5 mg by mouth once daily at bedtimeWarfarin 5 mg Tablet Discontinued 5.5 MG PO Daily at bedtime December 12, 2016 12:00am January 232016 1:27pm PEStart: 12-12-2016 End: 44-43-7808cgbb 5.5 mg by mouth once daily at bedtimeWarfarin Discontinued 5.5 MG PO Daily at bedtime December 12, 2016 12:00am February 18, 2017 1: 27pmWarfarin 5mg ActiveComment on above:Take 5 mg by mouth once daily. Weds and Sat 2.5 mg Completed/Discontinued Medications MedicationDrug Class(es)DatesSig (Normalized)Sig (Original)acetaminophen 325 mg / oxyCODONE hydrochloride 5 mg oral tablet (20 sources)Opioid AgonistStart: 12-13-2016 End: 86-66-3743gpxe 1-2 tablets by mouth every four to [...] Nucleoside Analog DNA Polymerase InhibitorStart: 07-21-2017 End: 77-78-8082gpde 1 tablet by mouth twice dailyacyclovir (ZOVIRAX) 400 mg tablet TAKE ONE TABLET BY MOUTH TWICE DAILY 60 tablet 5 07/21/2017 08/19/2024 DiscontinuedComment on above:TAKE ONE TABLET BY MOUTH TWICE DAILYamLODIPine 5 mg oral tablet (10 sources)Dihydropyridine Calcium Channel BlockerStart: 02-18-2017 End: 28-37-8560huxv 1 tablet by mouth once dailyAmlodipine 5 mg Tablet Discontinued 5 MG PO Daily 30 0 February 18, 2017 1:00am June 04, 2023 9 :29amaspirin 81 mg delayed release oral tablet (10 sources)Platelet Aggregation Inhibitor, Nonsteroidal Anti-inflammatory Drug Start: 12-12-2016 End: 16-61-5118ehiq 1 tablet by mouth once dailyAspirin (Aspir-Low) 81 mg Tablet,Delayed Release (Dr/Ec) Discontinued 1 TAB PO Daily December 12, 2016 12:00am February 18, 2017 1:26pmdiclofenac sodium 0.01 mg/mg topical gel (19 sources)Nonsteroidal Anti-inflammatory DrugStart: 04-18-2017 End: 20-01-6271omfhn 2 g topically four times dailyVOLTAREN 1 % topical gel Apply 2 g to affected area four times daily. 04/18/2017 08/19/2024 Discontinued Comment on above:Apply 2 g to affected area four times daily. docusate sodium 50 mg / sennosides, residential 8.6 mg oral tablet (20 sources)Start: 03-11-2017 End: 07-34-1493flrt 2 tablets by mouth twice dailysenna-docusate (MEDI-NATURAL SENNA-STOOL) 8.6-50 mg per tablet Take 2 tablets by mouth twice daily.120 tablet 5 03/11/2017 08/19/2024 DiscontinuedComment on above:Take 2 tablets by mouth twice daily.escitalopram 10 mg oral tablet (20 sources)Serotonin Reuptake InhibitorStart: 09-02-2023 End: 81-91-9255eqeb 1 tablet by mouth once daily at bedtimeEscitalopram Oxalate 10 mg tablet Discontinued 0 .ROUTE .COMPLEX 90 1 February 29, 2024 6:01pm August 31, 2024 8:41pm TAKE 1 TABLET BY MOUTH ONCE DAILY AT BEDTIMEStart: 01-13-2023 End: 30-63-2630qjyx 1 tablet by mouth once dailyEscitalopram Oxalate 10 mg tablet Discontinued 10 MG PO Daily June 04, 2023 12:00am September 02, 2023 1:36pmStart: 21-16-3497whfi 1 tablet by mouth once dailyescitalopram oxalate [...] (10 sources)Dihydropyridine Calcium Channel BlockerStart: 12-12-2016 End: 79-47-5128fkao 1 tablet by mouth once dailyFelodipine 5 mg Tablet Extended Release 24 Hr Discontinued 5 MG PO Daily December 12, 2016 12:00am February 18, 2017 1:31pm hypertensionglimepiride 4 mg oral tablet (20 sources)SulfonylureaStart: 06-04-2023 End: 73-46-5176piyh 1 tablet by mouth once dailyGlimepiride 4 mg tablet Discontinued 4 MG PO Daily June 04, 2023 9:27am December 31, 2023 12:36pm Start: 05-26-2023 End: 73-99-6065lsxw 1 tablet by mouth once daily at breakfastGlimepiride 4 mg tablet Discontinued 0 .ROUTE .COMPLEX 90 3 May 26, 2023 1:41pm June 0349:29am TAKE 1 TABLET BY MOUTH ONCE DAILY 30 MINUITES PRIOR TO BREAKFAST Start: 05-26-2023 End: 11-13-3149ekzp 1 tablet by mouth once dailyGlimepiride 4 mg tablet Discontinued 4 MG PO Daily May 26, 2023 1:00am May 26, 2023 1:41pmtake 4 tablets by mouth at mealtimeglimepiride (Amaryl) 1 MG tablet Take 4 mg by mouth in the morning. Take with meals. Active End: 91-24-2369arfm 1 tablet by mouth once daily at [...] Diuretic, Angiotensin 2 Receptor BlockerStart: 12-12-2016 End: 20-83-1161vsdw 1 tablet by mouth once dailyLosartan-Hydrochlorothiazide 100-12.5 mg Tablet Discontinued 1 TAB PO Daily December 12, 2016 12:00am June 04, 2023 9:29am hypertensionComment on above:Take 1 tablet by mouth once daily. 1/2 tab daily 3 ml insulin glargine 100 unt/ml pen injector (20 sources)Insulin AnalogStart: 07-07-2023 End: 34-79-9318Bpbgvyj Glargine (Lantus Solostar U-100 Insulin) 100 unit/mL (3 mL) insulin pen Discontinued 30 UNIT SUBCUT Twice daily 18 30 5 July 07, 2023 6:35pm December 31, 2023 12:36pmStart: 07-01-2023 End: 01-39-4838Pjjqnpw Glargine (Lantus Solostar U-100 Insulin) 100 unit/mL (3 mL) insulin pen Discontinued 0 .ROUTE .COMPLEX 45 3 July 01, 2023 4:28pm July 07, 2023 6:36pm INJECT 50 UNITS SUBCUTANEOUSLY ONCE A DAYStart: 06-04-2023 End: 70-63-6637bwkeju 30 [IU] by subcutaneous injection twice dailyInsulin Glargine 100 unit/mL (3 mL) insulin pen Discontinued 30 UNIT SUBCUT Twice daily May 9:27am July 01, 2023 4:28pmStart: 02-18-2017 End: 80-15-1842qidhuw 10 [IU] by subcutaneous injection once daily at bedtime Insulin Glargine 100 unit/mL (3 mL) insulin pen Discontinued 10 UNIT SUBCUT Daily at bedtime 3 0 February 18, 2017 1:00am June 04, 2023 9:29amStart: 12-12-2016 End: 11-84-5847hspejt 70 [IU] by subcutaneous injection once daily [...] with radiology test) (1 source)Start: 05-17-2024 End: 05-06-0280qfbbgr 1 dose intravenously once, then inject 1 [...] medicated patch (14 sources)Antiarrhythmic, Amide Local AnestheticStart: 70-04-1453Fjtjzqhgi 5 % 1 patch to skin remove after 12 hours Externally Once a day for 30 days May, Not-Takinglinagliptin 5 mg oral tablet (20 sources)Dipeptidyl Peptidase 4 InhibitorStart: 01-13-2023 End: 47-82-0393lhcg 1 tablet by mouth once dailyLinagliptin (Tradjenta) 5 mg tablet Discontinued 5 MG PO Daily June 04, 2023 12:00am February 03, 2024 6:13pmComment on above:Take 5 mg by mouth once daily.linagliptin 2.5 mg / metFORMIN hydrochloride 1000 mg oral tablet (10 sources)Biguanide, Dipeptidyl Peptidase 4 InhibitorStart: 12-12-2016 End: 95-39-9989Kssvjpmdujs-Metformin 2.5-1,000 mg tablet Discontinued 1 TAB PO 1-2 TIMES DAILY December 12, 2016 12:00am June 04, 2023 9:29am Diabetes LORazepam (14 sources)BenzodiazepineLORazepam Not-TakingMultivitamin preparation (5 sources)Start: 12-12-2016 End: 53-54-1279netk 1 tablet by mouth once dailyMultivitamin Discontinued 1 TAB PO Daily December 12, 2016 12:00am June 04, 2023 9:29amMultivitamin Tablet (5 sources)Start: 12-12-2016 End: 99-89-2308woqz 1 tablet by mouth once dailyMultivitamin Tablet Discontinued 1 TAB PO Daily December 12, 2016 12:00am June 04, 2023 9:29amStart: 12-12-2016 End: 15-40-0237lxhq 1 tablet by mouth once dailyMultivitamin Tablet Discontinued 1 TAB PO Daily December 11, 2016 11:00pm June 04, 2023 8:29amondansetron 4 mg oral tablet (19 sources)Serotonin-3 Receptor AntagonistStart: 02-06-2017 End: 26-98-4615wkrp 1 tablet by mouth every eight hours as neededondansetron (ZOFRAN) 4 mg tablet Take 4 mg by mouth every 8 hours as needed. 02/06/2017 08/19/2024 DiscontinuedComment on above:Take 4 mg by mouth every 8 hours as needed. pantoprazole 40 mg delayed release oral tablet (20 sources)Proton Pump InhibitorStart: 02-18-2017 End: 60-34-3504zjvs 1 tablet by mouth once daily in the morningPantoprazole 40 mg tablet,delayed release (DR/EC) Discontinued 40 MG PO Every morning 56 56 0 February 18, 2017 1:00am April 14, 2017 1:00am April 15, 2017 1:04am Comment on above:Take 40 mg by mouth once daily. pioglitazone 15 mg oral tablet (19 sources)Peroxisome Proliferator Receptor alpha Agonist, Peroxisome Proliferator Receptor gamma Agonist, ThiazolidinedioneStart: 06-03-2021 End: 29-05-8752bqgc 1 tablet by mouth once daily before breakfastpioglitazone (ACTOS) 15 mg tablet Take 15 mg by mouth daily before breakfast. 06/03/2021 08/19/2024DiscontinuedComment on above:Take 15 mg by mouth daily before breakfast.predniSONE 5 mg oral tablet (19 sources)Start: 05-22-2017 End: 52-52-3284iwuj 1 tablet by mouth once dailypredniSONE (DELTASONE) 5 mg tablet Indications: Multiple myeloma not having achieved remission (HCC) , Chronic pain due to neoplasm , Malaise and fatigue Take 1 tablet by mouth once daily. 30 tablet 05/22/2017 08/19/2024 DiscontinuedComment on above:Take 1 tablet by mouth once daily.Triamcinolone (20 sources)CorticosteroidStart: 98-96-8222Zziyywy -40 mg Jun, 40 mg Start: 35-98-1676Yscmkay -40 mg May, 40 mgStart: 25-29-8121Ayhewyf -40 mg Dec, 40 mgStart: 16-12-3899Czvfazo -40 mg Jun, Problems Active Problems Problem ClassificationProblemDateDocumented DateEpisodic/ChronicAbdominal pain (1 source)Flank pain; Translations: [Unspecified abdominal pain]08-11-2023 EpisodicAcquired foot deformities (5 sources)Acquired deformity of toe of right foot; Translations: [Acquired deformities of toe(s), unspecified, right foot]88-74-6757AqwygqhpHvrytyqv foot deformities (5 sources)Acquired deformity of toe of left foot; Translations: [Acquired deformities of toe(s), unspecified,left foot]98-81-7355CliurkamIzkgxpj tract disease (20 sources)Biliary calculus; Translations: [Calculus of gallbladder without cholecystitis without obstruction]EpisodicBlindness and vision defects (8 sources)Visual disturbance; Translations: [Other visual disturbances]Episodic Cancer of head and neck (13 sources)Malignant tumor of parotid gland; 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 EHR CmteComplication of device; implant or graft (1 source)Pain due to other internal prosthetic devices, implants and grafts, initial encounter; Translations: [Pain due to other internal prosthetic devices, implants and grafts, initial encounter]Onset: 91-68-5845ToiypqurAkhqpulsju and other anemia (10 sources)Anemia due to blood loss; Translations: [Iron deficiency anemia secondary to blood loss (chronic)]19-27-7637UhsxzkqSsoinqp on above:Problem List clean-up per request of Phys. EHR CmteDiabetes mellitus with complications (20 sources)Polyneuropathy due to type 2 diabetes mellitus; Translations: [Type 2 diabetes mellitus with diabetic polyneuropathy]Onset: 02-93-8767Ekgvlwr Diabetes mellitus without complication (8 sources)Type 2 diabetes mellitus without complication; Translations: [Diabetes mellitus without mention of complication, type II or unspecified type, not stated as uncontrolled]Onset: 06-34-1441OfzggotHcpsrxhp of mouth; excluding dental (20 sources)Mass of parotid gland; Translations: [Other diseases of salivary glands]Onset: 995658-48-7998RgbpbanoJqqfcku on above:FNA w/ atypia of undetermined significance - T: 2 x 2 x 1.7cm - 01/2023FNA w/ atypia of undetermined significance - 12/2022,CT: 2 x 2 x 1.7cm - 01/2023,US: no change - 02/2023,PET/CT: not FDG avid, slight increased size - 08/2023,Disorders of lipid metabolism (20 sources)Hypercholesterolemia; Translations: [Pure hypercholesterolemia, unspecified]Onset: 32-09-1686IwrcdhxT Codes: Adverse effects of medical drugs (1 source)Adverse effect of other opioids, initial encounter; Translations: [Constipation due to opioid therapy]Onset: 68-19-5190WdlpfujaOyezmbtwh hypertension (20 sources)Essential hypertension; Translations: [Essential (primary) hypertension]Onset: 13-61-8444OzqnbktNgpgbpeu of upper limb (20 sources)Closed fracture of acromial process of scapula; Translations: [Nondisplaced fracture of acromial process, right shoulder, initial encounter for closed fracture]EpisodicGastrointestinal hemorrhage (20 sources)Gastrointestinal hemorrhage; Translations: [Gastrointestinal hemorrhage, unspecified]Onset: 113988-55-3040CalnkgcrBaiepek on above: Problem List clean-up per request of Phys. EHR CmteGenitourinary symptoms and ill-defined conditions (18 sources)Nocturia; Translations: [Nocturia]EpisodicHyperplasia of prostate (20 sources)Nocturia due to benign prostatic hypertrophy; Translations: [Benign prostatic hyperplasia with lower urinary tract symptoms]Onset: 96-30-5924Iwbkiol Immunity disorders (20 sources)Monoclonal gammopathy (clinical); Translations: [Hypergammaglobulinemia, unspecified]Onset: 271145-07-8578Imbedwk Immunizations and screening for infectious disease (8 sources)Vaccination given; Translations: [Encounter for immunization]Episodic Lymphadenitis (1 source)Localized enlarged lymph nodesEpisodicMalaise and fatigue (20 sources)Malaise and fatigue; Translations: [Other malaise]Onset: 07-22-2013 23-03-1911FenwoxwjVtdvoffyk neoplasm without specification of site (6 sources)Malignant epithelial neoplasm; Translations: [Malignant (primary) neoplasm, unspecified]Onset: 311563-10-0591VkhtldjGwur disorders (20 sources)Recurrent major depressive episodes, mild ; Translations: [Major depressive disorder, recurrent, mild]Onset: 92-28-9071KxlcmfvAbzfsxdt myeloma (20 sources)Multiple myeloma; Translations: [Multiple myeloma not having achieved remission]Onset: 73-89-3486LgpdthdRwauzzy (5 sources)Pain in toe; Translations: [Tinea unguium]29-54-3195ZsisxnvdWdnsqgdje of unspecified nature or uncertain behavior (8 sources)Monoclonal gammopathy; Translations: [Monoclonal gammopathy]Onset: 37-36-6079OsajlcuLhfrxyhvq of unspecified nature or uncertain behavior (17 sources)Neoplasm of parotid gland; Translations: [Neoplasm of unspecified behavior of digestive system]Onset: 109722-17-2966ZqzpmywmQbi-Thyfrkl`s lymphoma (18 sources)History of multiple myeloma; Translations: [Personal history of other malignant neoplasms of lymphoid, hematopoietic and related tissues] EpisodicNonspecific chest pain (20 sources)Chest wall pain; Translations: [Other chest pain]Onset: 08-27-2023 06-39-3356VuidenhxEhqdbpfeqapban (8 sources)Osteoarthritis; Translations: [Polyosteoarthritis, unspecified] ChronicOther aftercare (18 sources)Long-term current use of insulin; Translations: [assisted (current) use of insulin]EpisodicOther aftercare (20 sources)Long-term current use of anticoagulant; Translations: [assisted (current) use of anticoagulants]Onset: 960282-52-2325ZivzywdqOtcys aftercare (7 sources)director long term care (current) use of anticoagulants; Translations: [EXTRACTIVE METALLURGIST CURRNT USE ANTICOAGULANTS]Onset: 73-08-7957HrzrdjjhPbnss aftercare (1 source)Other terminal clerk (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 therapyEpisodicOther aftercare (5 sources)Encounter for therapeutic drug level monitoring; Translations: [ENC THERAPEUTC DRUG LEVL MONITORING]Onset: 94-09-8418NoqdjexzItaog aftercare (2 sources)Under care of palliative care physician; Translations: [Encounter for palliative care]79-57-1930MklmnwggWdjxs aftercare (15 sources)Drug therapy finding; Translations: [director long term care (current) use of anticoagulants]Onset: 279303-15-4054SxsbegmeXzrtx aftercare (1 source)Encounter for palliative care; Translations: [Palliative care by specialist]Onset: 78-44-8023WcykixokTuetm and unspecified benign neoplasm (8 sources)Benign neoplasm of colon; Translations: [Benign neoplasm of colon, unspecified]EpisodicOther bone disease and musculoskeletal deformities (18 sources)Disorder of bone; Translations: [Disorder of bone, unspecified] EpisodicOther ear and sense organ disorders (6 sources)Mass in pinna; Translations: [Other specified disorders of left ear] 84-44-2067BijnaceqVuoxj ear and sense organ disorders (1 source)Other specified disorders of left ear; Translations: [Mass of ear auricle, left]Onset: 50-06-0271IlallkxqVwgxx endocrine disorders (8 sources)Testicular hypofunction; Translations: [Other testicular hypofunction]ChronicOther fractures (18 sources)Collapsed vertebra, not elsewhere classified, lumbar region, subsequent encounter for fracture withroutine healing; Translations: [Collapse of lumbar vertebra with routine healing]EpisodicOther gastrointestinal disorders (2 sources)Therapeutic opioid induced constipation; Translations: [Drug induced constipation]03-30-9106LdbbzyoqFogtp gastrointestinal disorders (1 source)Drug induced constipation; Translations: [Constipation due to opioid therapy]Onset: 65-83-6443NryualqcFqoqw injuries and conditions due to external causes (8 sources)History of fall; Translations: [History of falling]EpisodicOther nervous system disorders (20 sources)Pain due to neoplastic disease; Translations: [Neoplasm related pain (acute) (chronic)]Onset: 534911-25-3779EjrkfhoMalzw nervous system disorders (20 sources)Carpal tunnel syndrome; Translations: [Carpal tunnel syndrome, right upper limb]ChronicOther nervous system disorders (18 sources)Cubital tunnel syndrome; Translations: [Lesion of ulnar nerve, right upper limb]ChronicOther nervous system disorders (20 sources)Carpal tunnel syndrome of right wrist; Translations: [Carpal tunnel syndrome, right upper limb]Onset: 034533-10-1593RpfznzqEofop nervous system disorders (18 sources)Complex regional pain syndrome type I of right upper limb; Translations: [Complex regional pain syndrome I of right upper limb]ChronicOther nervous system disorders (5 sources)Complex regional pain syndrome I of right upper limbChronicOther nervous system disorders (16 sources)Shoulder-hand syndrome; Translations: [Complex regional pain syndrome I of right upper limb]Onset: 68-38-1118TgpjdlsVkdua nervous system disorders (8 sources)Hereditary peripheral neuropathy; Translations: [Unspecified hereditary and idiopathic peripheral neuropathy]Onset: 63-77-1939HdaezjeMaoec nervous system disorders (10 sources)Complex regional pain syndrome of upper limb; Translations: [Complex regional pain syndrome I of right upper limb]Onset: hronic Other nervous system disorders (1 source)Neoplasm related pain (acute) (chronic); Translations: [Chronic pain due to neoplasm]Onset: 07-83-1332JylbezqXqrqq nervous system disorders (3 sources)Pain; Translations: [Other acute postprocedural pain]09-24-2024 EpisodicOther nutritional; endocrine; and metabolic disorders (20 sources)Simple obesity ; Translations: [Other obesity due to excess calories]Onset: 45-00-1524DiejnnwWhicm nutritional; endocrine; and metabolic disorders (20 sources)Obese class II; Translations: [Body mass index (BMI) 38.0-38.9, adult]Onset: 51-45-3467AmletdlPfvar nutritional; endocrine; and metabolic disorders (20 sources)Obesity; Translations: [Obesity, unspecified]64-69-0175VyxrpvxPijrt nutritional; endocrine; and metabolic disorders (1 source)Other obesity due to excess caloriesChronicOther nutritional; endocrine; and metabolic disorders (8 sources)Morbid obesity; Translations: [Morbid (severe) obesity due to excess calories]Onset: 93-17-5858IaicdncTrwmi nutritional; endocrine; and metabolic disorders (8 sources)Obese class I; Translations: [Body mass index 32.0-32.9, adult]Onset: 92-86-4850AaqusvmOluir nutritional; endocrine; and metabolic disorders (13 sources)Body mass index 30+ - obesity; Translations: [Body mass index (BMI) 37.0-37.9, adult]Onset: 734871-04-2990OkosnutCtbxl nutritional; endocrine; and metabolic disorders (1 source)Body mass index (BMI) 37.0-37.9, adult; Translations: [BMI 37.0-37.9, adult]Onset: 58-49-4357FsaxhylIpmqmshjz; thrombophlebitis and thromboembolism (1 source)Chronic embolism and thrombosis of unspecified deep veins of unspecified lower extremity; Translations: [CHR EMB THROMB UNS DP VN UNS LW EXT] Onset: 79-62-9690YlyewitLrgcjwxei; thrombophlebitis and thromboembolism (5 sources)Acute embolism and thrombosis of unspecified deep veins of unspecified lower extremity; Translations: [AC EMBO THROMB UNS DP VN UNS LW EXT] Onset: 40-04-6102TfgxngqlHivuaxlbs heart disease (20 sources)H/O: pulmonary embolus; Translations: [Personal history of pulmonary embolism]Onset: 88-00-4013RexkbktcDqzgtzpw codes; unclassified (18 sources)Postprocedural state finding; Translations: [Other specified postprocedural states]EpisodicSecondary malignancies (20 sources)Secondary malignant neoplasm of bone; Translations: [Secondary malignant neoplasm of bone]Onset: 085396-06-0403QvnxljzTnkllgmmz malignancies (7 sources)Secondary malignant neoplasm of bone; Translations: [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]ChronicSpondylosis; intervertebral disc disorders; other back problems (20 sources)Prolapsed thoracic intervertebral disc; Translations: [Other intervertebral disc displacement, thoracic region]64-00-6990KapzdakNhoacfljxvh; intervertebral disc disorders; other back problems (20 sources)Backache; Translations: [Back pain of thoracolumbar region]Onset: 875162-26-0491Skoeebsr Past or Other Problems Problem ClassificationProblemDateDocumented DateEpisodic/ChronicAcute posthemorrhagic anemia (8 sources)Acute posthemorrhagic anemia; Translations: [Acute posthemorrhagic anemia]Onset: 52-11-8873TrjdfvzfGngwtxyifo and other anemia (20 sources)Anemia; Translations: [Anemia, unspecified]Onset: 10-16-2016 61-83-4838KhigprypOkdcljriarrf; infection of eye (except that caused by tuberculosis or sexually transmitteddisease) (8 sources)Acute conjunctivitis; Translations: [Unspecified acute conjunctivitis, right eye] Resolved: 09-76-2318MrjzyrhhHfrwxdbaoshc conditions of male genital organs (8 sources)Acute prostatitis; Translations: [Acute prostatitis]Onset: 06-13-2017 EpisodicOther aftercare (2 sources)director long term care (current) use of insulin; Translations: [EXTRACTIVE METALLURGIST CURRENT USE OF INSULIN]Onset: 35-61-7725KjfuagqwArvkv and unspecified benign neoplasm (8 sources)History of polyp of colon; Translations: [Personal history of colonic polyps]Onset: 35-12-0680TlxwpwhqUqcyz connective tissue disease (8 sources)Muscle weakness; Translations: [Muscle weakness (generalized)]Onset: 51-21-9424VeuvovgxOsoso ear and sense organ disorders (8 sources)Impacted cerumen; Translations: [Impacted cerumen]Onset: 07-28-2018 EpisodicScreening and history of mental health and substance abuse codes (8 sources)History of tobacco use; Translations: [Personal history of tobacco use, presenting hazards to health]Onset: 79-01-2109HvtpyptiGhnagsl (8 sources)Syncope and collapse; Translations: [Syncope and collapse]Onset: 94-56-3012OgeoddyfLnuhpwqvlmas (8 sources)Other and unspecified Escherichia coli [E. coli] infection in conditions classified elsewhere and of unspecified site; Translations: [Other and unspecified Escherichia coli [E. coli] infection in conditions classified elsewhere and of unspecified site]Onset: 37-28-3466Uecezlogaibq (8 sources)Methicillin resistant Staphylococcus aureus; Translations: [Methicillin resistant Staphylococcus aureus]Onset: 81-51-9689Cxvuemfuprhu (1 source)Onset: 215854-97-9034Tqlvn infection (8 sources)Viral disease; Translations: [Unspecified viral infection, in conditions classified elsewhere and of unspecified site]Onset: 02-07-2014 Episodic Results Test NameValueInterpretationReference RangeFacilityCNOVSPon 86-37-4114JCVAAU NormalAvita Health System Galion HospitalAlbumin [Mass/volume] in Serum or PlasmaOrdered By: Anibal Ash on 65-65-8425Dfcwqiy [Mass/Vol]3.63 g/dL3.43-5.41[facility] HospitalB2 Microglob SerPl-mCncon 69-76-4715Axov-2-Microglobulin [Mass/Vol]4.6 ug/mLHigh<3.1CRiverside Methodist Hospital on above:Order Comment: Specimen Type: BLOOD SPECIMENOrdering Facility: [facility] Address:[address] [place], [place] [address]Result Comment: Beta-2 Microglobulin test is performed using the [employer] immunoturbidimetric method. Results obtained with different methods or kits cannot be used interchangeably.Performed By: #### 1952-1, 2885-2 ####[facility] LABCLIA [id number] [place] [address] [place] OF AMERICABasophils Auto (Bld) [#/Vol]Ordered By: Anibal Ash on 68-66-9880Tmkpparfn (Bld) [#/Vol]10*3/uL<0.11[facility] Basophils/100 WBC Auto (Bld)Ordered By: Anibal Ash on 11-17-2024 Basophils/100 WBC (Bld)0.3 %[facility] HospitalBlood manual differential comment interpretation narrativeOrdered By: Anibal Ash on 92-31-1307Ybumnc differential comment Augie (Bld) [Interp]AutoOhiohealth Shelby HospitalCB W Auto Differential panel (Bld)on 23-18-5974Uynygacrj (Bld) [#/Vol]10*3/uLNormal<0.11CRiverside Methodist Hospital on above:Order Comment: Specimen Type: BLOOD SPECIMENOrdering Facility: [facility] Address:[address] [place], [place] [address]Performed By: #### 38931- 8 ####[facility] LABCLIA [id number] [place], [place] [address]Ehqzsmogo/100 WBC (Bld)0.3 %NormalOhioHealth [facility] on above:Order Comment: Specimen Type: BLOOD SPECIMENOrdering Facility: [facility] Address:[address] [place], [place] [address]Performed By: #### 25480-6 ####[facility] LABCLIA [id number] [place], [place] [address]Dnvguiwjywma cell count method Nom (Bld)AutoNormalCRiverside Methodist Hospital on above:Order Comment: Specimen Type: BLOOD SPECIMENOrdering Facility: [facility] Address:[address] [place], [place] [address]Performed By: #### 23192-9 ####[facility] LABIA [id number] [place], [place] [address]Evwfqgztpgp (Bld) [#/Vol]0.15 10*3/uLNormal<0.46[facility] on above:Order Comment: Specimen Type: BLOOD SPECIMENOrdering Facility: [facility] Address:[address] [place], [place] [address]Performed By: #### 96704-4 ####[facility] [id number] [place], [place] [address]Yxwpzvkeszf/100 WBC (Bld)2.3 %NormalOhioHealth Arthur [facility], [facility] on above:Order Comment: Specimen Type: BLOOD SPECIMENOrdering Facility: [facility] Address:[address] [place], [place] [address]Performed By: #### 71300-3 ####[facility] LABIA [id number] [place], [place] [address]Lrzrhamjwgy distribution width (RBC) [Ratio]13.4 %Normal 11.5-15.0[facility] on above:Order Comment: Specimen Type: BLOOD SPECIMENOrdering Facility: [facility] Address:[address] [place], [place] [address]Performed By: #### 44517-6 ####[facility] LABIA [id number] [place] [address] Hematocrit (Bld) [Volume fraction]39.4 %Whfxki47.0-51.0[facility] on above:Order Comment: Specimen Type: BLOOD SPECIMENOrdering Facility: [facility] Address:[address] [place], [place] [address]Performed By: #### 33291-6 ####[facility] LABIA [id number] [place], [place] [address]Hyerqwlcjx (Bld) [Mass/Vol]12.8 g/dLLow13.0-17.0[facility] on above:Order Comment: Specimen Type: BLOOD SPECIMENOrdering Facility: [facility] Address:[address] [place], [place] [address]Performed By: #### 06991-6 ####[facility] LABIA [id number] [place], [place] [address]Ivamlvzp granulocytes (Bld) [#/Vol]10*3/uLNormal<0.10 [facility] on above:Order Comment: Specimen Type: BLOOD SPECIMENOrdering Facility: [facility] Address:[address] [place], [place] [address]Performed By: #### 34423-7 ####[facility] LABIA [id number] [place], [place] [address]Bhcpfgkk granulocytes/100 WBC (Bld)0.3 %NormalOhioHealth Arthur [facility] on above: Order Comment: Specimen Type: BLOOD SPECIMENOrdering Facility: [facility] Address:[address] [place], [place] [address]Performed By: #### 89414- 8 ####[facility] LABIA [id number] [place], [place] [address]Aumicuvffsh (Bld) [#/Vol]1.75 10*3/uLNormal1.00-4.00 [facility] on above:Order Comment: Specimen Type: BLOOD SPECIMENOrdering Facility: [facility] Address:[address] [place], [place] [address]Performed By: #### 61843-4 ####[facility] LABIA [id number] [place], [place] [address]Owlqwklcuol/100 WBC (Bld)26.9 %NormalOhioHealth [facility] on above:Order Comment: Specimen Type: BLOOD SPECIMENOrdering Facility: [facility] [facility] Address:[address] [place], [place] [address]Performed By: #### 24853-4 ####[facility] LABCLIA [id number] [place], [place] [address]OTF (RBC) [Entitic mass]30.5 njAurppf02.0-34.0[facility] on above:Order Comment: Specimen Type: BLOOD SPECIMENOrdering Facility: [facility] Address:[address] [place], [place] [address]Performed By: #### 06952-0 ####[facility] LABCLIA [id number] [place], [place] [address]CMQP (RBC) [Mass/Vol]32.5 g/qXOsjiwr32.5-36.0[facility] on above: Order Comment: Specimen Type: BLOOD SPECIMENOrdering Facility: [facility] Address:[address] [place], [place] [address]Performed By: #### 62455- 8 ####[facility] LABCLIA [id number] [place], [place] [address]ZDD (RBC) [Entitic vol]94.0 mRMeqhjf54.0-100.0[facility] on above:Order Comment: Specimen Type: BLOOD SPECIMENOrdering Facility: [facility] Address:[address] [place], [place] [address]Performed By: #### 05487-9 ####[facility] LABCLIA [id number] [place], [place] [address]Jrylnoxep (Bld) [#/Vol]0.69 10*3/uLNormal<0.87[facility] on above:Order Comment: Specimen Type: BLOOD SPECIMENOrdering Facility: [facility] Address:[address] [place], [place] [address]Performed By: #### 90538- 8 ####[facility] LABCLIA [id number] [place], [place] [address]Tbythfzdk/100 WBC (Bld)10.6 %NormalOhioHealth [facility] on above:Order Comment: Specimen Type: BLOOD SPECIMENOrdering Facility: [facility] Address:[address] [place], [place] [address]Performed By: #### 54400-8 ####[facility] LABCLIA [id number] [place], [place] [address]Jqwdxsccmse (Bld) [#/Vol]3.87 10*3/uLNormal1.45-7.50[facility] on above:Order Comment: Specimen Type: BLOOD SPECIMENOrdering Facility: [facility] Address:[address] [place], [place] [address]Performed By: #### 98219-4 ####[facility] LABCLIA [id number] [place], [place] [address]Ogalkgzzgep/100 WBC (Bld)59.6 %NormalOhioHealth [facility] on above:Order Comment: Specimen Type: BLOOD SPECIMENOrdering Facility: [facility] Address:[address] [place], [place] [address]Performed By: #### 47540-9 ####[facility] LABCLIA [id number] [place], [place] [address]Dqjhhmyvg RBC (Bld) [#/Vol] 10*3/uLNormal<0.01[facility] on above:Order Comment: Specimen Type: BLOOD SPECIMENOrdering Facility: [facility] Address:[address] [place], [place] [address]Performed By: #### 95631-4 ####[facility] LABCLIA [id number] [place], [place] [address]Bpdykzdey RBC/100 WBC (Bld) [Ratio]0.0 /100 WBCNormal [facility] on above:Order Comment: Specimen Type: BLOOD SPECIMENOrdering Facility: [facility] Address:[address] [place], [place] [address]Performed By: #### 99575-7 ####[facility] LABCLIA [id number] [place], [place] [address]Fsfytyrk mean volume (Bld) [Entitic vol]9.6 fLNormal9.0-12.7CRiverside Methodist Hospital on above:Order Comment: Specimen Type: BLOOD SPECIMENOrdering Facility: [facility] Address:[address] [place] [address] Performed By: #### 70696-1 ####[facility] LABCLIA [id number] [place], [place] [address]Qajyfhbfg (Bld) [#/Vol]177 10*3/uWFcfrzc651-253HmjmbvexmOhioHealth [facility] on above:Order Comment: Specimen Type: BLOOD SPECIMENOrdering Facility: [facility] Address:[address] [place], [place] [address]Performed By: #### 01409-2 ####[facility] LABCLIA [id number] [place], [place] [address]GTG (Bld) [#/Vol]4.19 10*6/uLLow4.20-6.00[facility] on above:Order Comment: Specimen Type: BLOOD SPECIMENOrdering Facility: [facility] Address:[address] [place], [place] [address]Performed By: #### 36400-4 ####[facility] LABCLIA [id number] [place], [place] [address]NFK (Bld) [#/Vol]6.50 10*3/uL Normal3.70-11.00[facility] on above:Order Comment: Specimen Type: BLOOD SPECIMENOrdering Facility: [facility] Address:[address] [place], [place] [address]Performed By: #### 47937-5 ####[facility] LABIA [id number] [place], [place] [address]Kdqficj.ionized [Moles/Vol]on 79-65-8368Rxqzloh.ionized (Bld) [Mass/Vol]1.31 mmol/LHigh1.08-1.30[facility] on above:Order Comment: Specimen Type: BLOOD SPECIMENOrdering Facility: [facility] Address:[address] [place], [place] [address]Performed By: #### 1995-0 ####[facility] LABIA [id number] [address]Calcium.ionized adjusted to pH 7.4 (Bld) [Moles/Vol]1.26 mmol/LNormal1.08-1.30[facility] on above:Order Comment: Specimen Type: BLOOD SPECIMENOrdering Facility: [facility] Address:[address] [place], [place] [address]Performed By: #### 1994- ####[facility] LABIA [id number] [address] [facility] Comprehensive metabolic 2000 panelon 06-00-1571Iwotoat [Mass/Vol]3.9 g/dLNormal 3.9-4.9CRiverside Methodist Hospital on above:Order Comment: Specimen Type: BLOOD SPECIMENOrdering Facility: [facility] Address:[address] [place], [place] [address]Performed By: #### 3084-1, 2777-1, 2532-0, 83286-5 ####[facility] LABIA [id number] [place], [place] [address]AAB [Catalytic activity/Vol]90 U/CTcbgeq02-297IbcigujbgOhioHealth [facility] on above:Order Comment: Specimen Type: BLOOD SPECIMENOrdering Facility: [facility] Address:[address] [place] [address]Hzbtmbckf By: #### 3084-1, 2777-1, 2532-0, 82701-6 ####[facility] LABCLIA [id number] [place], [place] [address]MJY [Catalytic activity/Vol]13 U/YSjmlvc27-03BdtzdnlfzOhioHealth [facility] on above:Order Comment: Specimen Type: BLOOD SPECIMENOrdering Facility: [facility] Address:[address] [place], [place] [address]Performed By: #### 3084-1, 2777-1, 2532-0, 23764-2 ####[facility] LABCLIA [id number] [place], [place] [address]Woadz gap [Moles/Vol]10 mmol/LNormal8-15[facility] on above:Order Comment: Specimen Type: BLOOD SPECIMENOrdering Facility: [facility] Address:[address] [place], [place] [address]Performed By: #### 3084-1, 2777-1, 2532-0, 39122-7 ####[facility] LABIA [id number] [place], [place] [address]GOU [Catalytic activity/Vol]20 U/EAdnffv02-37SalvcdkufOhioHealth [facility] on above:Order Comment: Specimen Type: BLOOD SPECIMENOrdering Facility: [facility] Address:[address] [place], [place] [address]Performed By: #### 3084-1, 2777-1, 2532-0, 97745-7 ####[facility] LABCLIA [id number] [place], [place] [address]Tgjgmfssn [Mass/Vol]0.3 mg/dL Normal0.2-1.3CRiverside Methodist Hospital on above:Order Comment: Specimen Type: BLOOD SPECIMENOrdering Facility: [facility] Address:[address] [place], [place] [address]Performed By: #### 3084-1, 2777-1, 2532-0, - 8 ####[facility] LABCLIA [id number] [place], [place] [address]Squcldx [Mass/Vol]9.6 mg/dLNormal8.5-10.2CRiverside Methodist Hospital on above:Order Comment: Specimen Type: BLOOD SPECIMENOrdering Facility: [facility] Address:[address] [place], [place] [address]Performed By: #### 3084-1, 2777-1, 2532-0, 20890-6 ####[facility] LABCLIA [id number] [place], [place] [address]Utugqyly [Moles/Vol]104 mmol/UBtixtc80-769CdzrgmafkOhioHealth [facility] on above: Order Comment: Specimen Type: BLOOD SPECIMENOrdering Facility: [facility] Address:[address] [place], [place] [address]Performed By: #### 3084- 1, 277-1, 2531-0, 09562-0 ####[facility] LABCLIA [id number] [place], [place] [address]SH2 [Moles/Vol]27 mmol/LNormal 22-30[facility] on above:Order Comment: Specimen Type: BLOOD SPECIMENOrdering Facility: [facility] Address:[address] [place], [place] [address]Performed By: #### 3084-1, 277-, 2531-0, 70409-7 ####[facility] LABCLIA [id number] [place], [place] [address]Lqnnjptwfz [Mass/Vol]1.32 mg/dLHigh0.73-1.22[facility] on above:Order Comment: Specimen Type: BLOOD SPECIMENOrdering Facility: [facility] Address:[address] [place], [place] [address]Performed By: #### 3084-1, 2777-1, 2-0, 06075-1 ####[facility] LABCLIA [id number] [place], [place] [address]hOGQiz SerPlBld CKD-EPI 560849 mL/min/1.73m???Low>=60 [facility] on above:Order Comment: Specimen Type: BLOOD SPECIMENOrdering Facility: [facility] Address:[address] [place] [address]Behdvz Comment: Estimated Glomerular Filtration Rate (eGFR) is [...] actual GFR.Performed By: #### 3084-1, 2777-1, 2532-0, 02731-5 ####[facility] LABCLIA [id number] [place], [place] [address]Jdpkgjd [Mass/Vol]149 mg/iGMfdu71-08XwrglukkuOhioHealth [facility] on above:Order Comment: Specimen Type: BLOOD SPECIMENOrdering Facility: [facility] Address:[address] [place], [place] [address]Result Comment: The [place] Diabetes Association (ADA) provides guidance for cutoff [...] Standards of Medical Care in Diabetes 2016, [place] Diabetes Association. Diabetes Care. 2016.39(Suppl 1).Performed By: #### 3084-1, 2777-1, 2532-0, 92974-0 ####[facility] LABCLIA [id number] [place], [place] [address]Vhcfxbieq [Moles/Vol]4.1 mmol/L Normal3.7-5.1CRiverside Methodist Hospital on above:Order Comment: Specimen Type: BLOOD SPECIMENOrdering Facility: [facility] Address:[address] [place], [place] [address]Performed By: #### 3084-1, 2777-1, 2532-0, 59237- 8 ####[facility] LABCLIA [id number] [place], [place] [address]Ocmcet [Moles/Vol]141 mmol/EFlkgyw927-722QzaxbwxiyOhioHealth [facility] on above:Order Comment: Specimen Type: BLOOD SPECIMENOrdering Facility: [facility] Address:[address] [place], [place] [address]Performed By: #### 3084-1, 2777-1, 2532-0, 58713-0 ####[facility] LABIA [id number] [place], [place] [address]Lolf nitrogen [Mass/Vol]13 mg/dLNormal9-24[facility] on above: Order Comment: Specimen Type: BLOOD SPECIMENOrdering Facility: [facility] Address:[address] [place], [place] [address]Performed By: #### 3084- 1, 2777-1, 2532-0, 10042-9 ####[facility] LABIA [id number] [place], [place] [address]Pakgclnvqlm/100 WBC Auto (Bld) Ordered By: Anibal Ash on 46-56-9505Cpwimxzemwb/100 WBC (Bld)2.3 %[facility] HospitalErythrocyte distribution width Auto (RBC) [Ratio]Ordered By: Anibal Bazziar on 11-76-8494Xwhphnjkzbo distribution width (RBC) [Ratio] 13.4 %11.5-15.0[facility] Shelby HospitalGlomerular filtration rate [Volume Rate/Area] in Serum, Plasma or Blood by CreatinineOrdered By: Anibal Ash on 09-31-5734Uyrruviekg filtration rate [Volume Rate/Area] in Serum, Plasma or Blood by Bjlypfeqei60 mL/min/1.73m???Low>=60Ohio[facility] Shelby HospitalComment on above:Estimated Glomerular Filtration Rate (eGFR) is [...] Ash on 11-17-2024 Hematocrit (Bld) [Volume fraction]39.4 %39.0-51.0[facility] HospitalHemoglobin [Mass/volume] in BloodOrdered By: Anibal Ash on 11-17-2024 Hemoglobin (Bld) [Mass/Vol]12.8 g/dLLow13.0-17.0[facility] Shelby HospitalIMMUNOFIXATION SCREEN, SERUMon 53-40-5540PHVUNACZWZYGJL (MPA)Atypical restricted bands are present in the IgG and kappa regions. Consistent with IgG kappa monoclonal gammopathy.NormalOhioHealth [facility] on above: Order Comment: Specimen Type: BLOOD SPECIMENOrdering Facility: [facility] Address:[address] [place], [place] [address]Performed By: #### IFESC ####[facility] LABCLIA [id number] [facility]ENUEL[facility] HOSPITALK [address] [place] [address] [place] AMERICAMPA RESULTM protein is present. AbnormalNo M protein is identified.[facility] on above: Order Comment: Specimen Type: BLOOD SPECIMENOrdering Facility: [facility] Address:[address] [place], [place] [address]Performed By: #### IFESC ####[facility] LABCLIA [id number] [facility] [address] [place] [address] [place] OF AMERICASTAFF REVIEW (MPA)Reviewed by Kevin RasconrmalCRiverside Methodist Hospital on above:Order Comment: Specimen Type: BLOOD SPECIMENOrdering Facility: [facility] Address:[address] [place], [place] [address]Performed By: #### IFESC ####[facility] LABCLIA [id number] [place] [address] [place] AMERICAIMMUNOGLOBULINS,IGG,IGA,IGMon 60-89-7801BnA [Mass/Vol]228 mg/jXFmrwsl04-161LphfgvyggOhioHealth [facility] on above:Order Comment: Specimen Type: BLOOD SPECIMENOrdering Facility: [facility] Address:[address] [place] [address] Performed By: #### SERIMM ####[facility] LABCLIA [id number] [place] [address] [place] IgG [Mass/Vol]1383 mg/uSHtzozi356-1056CdctbfdevOhioHealth [facility] on above:Order Comment: Specimen Type: BLOOD SPECIMENOrdering Facility: [facility] Address:[address] [place], [place] [address]Performed By: #### SERIMM ####[facility] LABCLIA [id number] [place] [address] [place] AMERICAIgM [Mass/Vol]280 mg/dL Hwtu45-752VaqtmxytjOhioHealth [facility] on above:Order Comment: Specimen Type: BLOOD SPECIMENOrdering Facility: [facility] Address:[address] [place], [place] [address]Performed By: #### SERIMM ####[facility] LABCLIA [id number] [place] [address] [place] AMERICAIgA [Mass/volume] in Serum or PlasmaOrdered By: Anibal Abhyankar on 78-85-2361GeU [Mass/Vol]228 mg/iH08-896GizkhrepbOhiohealth Shelby HospitalIgG [Mass/volume] in Serum or PlasmaOrdered By: Anibal Abhyankar on 84-67-0462GsA [Mass/Vol]1383 mg/oS374-6208TyuoewbsuOhiohealth Shelby HospitalIgM [Mass/volume] in Serum or PlasmaOrdered By: Anibal Abhyankar on 85-05-7966BeS [Mass/Vol]280 mg/eZZbxk77-950JahoqbmytOhiohealth Shelby HospitalImmunoglobulin light chains.kappa.free [Mass/volume] in SerumOrdered By: Anibal Abhyankar on 09-32-7470Plhmradyifdate light chains.kappa.free (S) [Mass/Vol]233.0 mg/LHigh 3.3-19.4FPremier Health Miami Valley Hospital SouthComment on above:Rarely, increased serum free light chains levels may not be detected or accurately quantified due to prozone phenomenon or in high viscosity samples using this immunoturbidimetric assay. Correlation with other laboratory results and clinical findings is recommended. The [place] Free Light Chain was performed using the Binding Site Optilite immunoturbidimetric method. Result obtained with different assay methods or kits cannot be used interchangeably.Immunoglobulin light chains.kappa.free/Immunoglobulin light chains.lambda.free [MassOrdered By: Anibal Abhyankar on 48-27-3666Xsbqdkzejkjygl light chains.kappa.free/Immunoglobulin light chains.lambda.free (S) [Mass ratio]4.88 High0.26-1.65Ohio[facility] Shelby HospitalImmunoglobulin light chains.lambda.free [Mass/volume] in Serum or PlasmaOrdered By: Anibal Abhyankar on 49-32-4594Cgoyeqaubzfyll light chains.lambda.free [Mass/Vol]47.7 mg/LHigh 5.7-26.3FPremier Health Miami Valley Hospital SouthComment on above:Rarely, increased serum free light chains [...] or kits cannot be used interchangeably. KAPPA/COTA,FREE,SERon 48-87-1726Zrdddqsgepuork light chains.kappa.free (S) [Mass/Vol]233.0 mg/LHigh3.3-19.4CRiverside Methodist Hospital on above:Order Comment: Specimen Type: BLOOD SPECIMENOrdering Facility: [facility] Address:[address] [place], [place] [address]Result Comment: Rarely, increased serum free light chains levels may not be detected or accurately q uantified due to prozone phenomenon or in high viscosity samples using this immunoturbidimetric assay. Correlation with other laboratory results and clinical findings is recommended.The [place] Free Light Chain was performed using the Binding Site Optilite immunoturbidimetric method. Result obtained with different assay methods or kits cannot be used interchangeably.Performed By: #### KLFRS ####[facility] LABCLIA [id number] [place] [address] [place] AMERICAImmunoglobulin light chains.kappa/Immunoglobulin light chains.lambda (S) [Mass ratio]4.88High 0.26-1.65[facility] on above:Order Comment: Specimen Type: BLOOD SPECIMENOrdering Facility: [facility] Address:[address] [place], [place] [address]Performed By: #### KLFRS ####[facility] LABCLIA [id number] [place] [address] [place] AMERICAImmunoglobulin light chains.lambda.free [Mass/Vol]47.7 mg/LHigh5.7-26.3CRiverside Methodist Hospital on above:Order Comment: Specimen Type: BLOOD SPECIMENOrdering Facility: [facility] Address:[address] [place], [place] [address]Result Comment: Rarely, increased serum free light chains [...] cannot be used interchangeably.Performed By: #### KLFRS ####[facility] LABCLIA [id number] [place] [address] [place] OF AMERICALDH SerPl-cCncon 76-99-1498JMA [Catalytic activity/Vol]142 U/GDuswgi894-375RjbyeyidfAvita Health System Galion HospitalComment on above:Order Comment: Specimen Type: BLOOD SPECIMENOrdering Facility: [facility] Address:[address] [place], [place] [address]Lehlfuazs By: #### 3084-1, 2777-1, 2532-0, 12641-2 ####[facility] LABCLIA [id number] [place] [address] Laboratory - Chemistry and Chemistry - challengeOrdered By: Anibal Ash on 08-88-5776Ymtmrvv [Mass/Vol]3.9 g/dL3.9-4.9[facility] HospitalALP [Catalytic activity/Vol]90 U/P51-612YecbubwaeOhiohealth Shelby HospitalALT [Catalytic activity/Vol]13 U/H14-73AlzpxnjgsOhiohealth Shelby HospitalAST [Catalytic activity/Vol]20 U/S48-93RvnhtydmnOhiohealth Shelby HospitalBilirubin [Mass/Vol]0.3 mg/dL0.2-1.3FPremier Health Miami Valley Hospital SouthCalcium [Mass/Vol]9.6 mg/dL8.5-10.2FPremier Health Miami Valley Hospital SouthChloride [Moles/Vol]104 mmol/L 98-107Ohio[facility] HospitalCO2 [Moles/Vol]27 mmol/F15-04AwxqvrazoOhiohealth Shelby HospitalCreatinine [Mass/Vol]1.32 mg/dLHigh0.73-1.22[facility] HospitalGlucose [Mass/Vol]149 mg/hLOppc84-97KuwxtuzghOhiohealth Shelby HospitalComment on above:The [place] Diabetes Association (ADA) provides guidance for cutoff [...] diabetes.Reference: Standardsof Medical Care in Diabetes 2016, [place] Diabetes Association. Diabetes Care. 2016.39(Suppl 1).LDH [Catalytic activity/Vol]142 U/G416-939IjizkcoegOhiohealth Shelby HospitalPotassium [Moles/Vol]4.1 mmol/L 3.7-5.1FPremier Health Miami Valley Hospital SouthProtein [Mass/Vol]0.43 g/dLHigh<=0.00 [facility] Hospitalodium [Moles/Vol]141 mmol/H605-117FtyhfuoaeOhiohealth Shelby HospitalUrate [Mass/Vol]4.8 mg/dL4.0-8.1FPremier Health Miami Valley Hospital SouthUrea nitrogen [Mass/Vol]13 mg/dL9-24Ohio[facility] HospitalLaboratory - Hematology and Cell countsOrdered By: Anibal Ash on 69-02-8281Ixndgjyzkvf (Bld) [#/Vol]0.15 10*3/uL<0.46Ohio[facility] HospitalImmature granulocytes/100 WBC (Bld)0.3 %[facility] Leukocytes [#/volume] corrected for nucleated erythrocytes in Blood by Automated counOrdered By: Anibal Ash on 89-24-4834CKA corrected for nucl RBC Auto (Bld) [#/Vol]6.50 k/uL3.70-11.00[facility] Shelby HospitalLymphocytes Auto (Bld) [#/Vol]Ordered By: Anibal Ash on 71-68-0159Uchnrrppklv (Bld) [#/Vol]1.75 10*3/uL1.00-4.00[facility] Shelby HospitalLymphocytes/100 WBC Auto (Bld)Ordered By: Anibal Ash on 97-35-8882Xolwlsoahcd/100 WBC (Bld) 26.9 %[facility] Auto (RBC) [Entitic mass]Ordered By: Anibal Ash on 75-53-4724CVM (RBC) [Entitic mass]30.5 pg26.0-34.0[facility] HospitalMCHC Auto (RBC) [Mass/Vol]Ordered By: Anibal Ash on 36-06-1655SJJH (RBC) [Mass/Vol]32.5 g/dL30.5-36.0[facility] HospitalMCV Auto (RBC) [Entitic vol]Ordered By: Anibal Ash on 44-65-7750INL (RBC) [Entitic vol]94.0 fL80.0-100.0[facility] Shelby HospitalMonocytes Auto (Bld) [#/Vol]Ordered By: Anibalfernie Ash on 62-14-5719Rwhtpjmxb (Bld) [#/Vol]0.69 10*3/uL<0.87Ohio[facility] Shelby HospitalMonocytes/100 WBC Auto (Bld)Ordered By: [facility] Mihir on 79-87-6140Kihpyclro/100 WBC (Bld)10.6 % [facility] HospitalNeutrophils Auto (Bld) [#/Vol]Ordered By: Anibalfernie Ash on 60-58-3208Qmqvzyyjbwp (Bld) [#/Vol]3.87 10*3/uL1.45-7.50Ohio[facility] Shelby HospitalNeutrophils/100 WBC Auto (Bld)Ordered By: Anibal Mihir on 93-12-7258Fhsihxyauru/100 WBC (Bld)59.6 %[facility] HospitalNo Panel InformationOrdered By: [facility] daron on 47-10-9309Jqzgwcsz Granulocyte # (Auto)<0.03 k/uL<0.10[facility] HospitalImmunofixation InterpretationOhiohealth Shelby HospitalIonized Calcium (pH Adjusted)1.26 mmol/L1.08-1.30[facility] HospitalLeuk/Lymph Sign Pathologist (Misc)Reviewed by Namrata Byrd MDOhiohealth Shelby HospitalMiscellaneous Test 6Gamma Fraction 1FPremier Health Miami Valley Hospital SouthMiscellaneous Test CommentReviewed by Namrata yBrd MDOhiohealth Shelby HospitalPhosphorus Level2.8 mg/dL2.7-4.8[facility] HospitalProtein Electrophoresis InterpretOhiohealth Shelby HospitalProtein Electrophoresis NoteAn M protein is identified on protein electrophoresis.AbnormalNo definitive M protein is identified on protein electrophoresis.[facility]orrow County Hospitalerum ImmunofixationM protein is present.AbnormalNo M protein is identified.[facility] HospitalNucleated RBC Auto (Bld) [#/Vol]Ordered By: Anibal Ash on 30-59-5182Jeupyoznz RBC (Bld) [#/Vol]10*3/uL<0.01Ohio[facility] Shelby HospitalNucleated erythrocytes [Presence] in Blood by Automated count Ordered By: Anibal Ash on 91-65-5722Ravhwsnhp RBC Auto Ql (Bld)0.0 /100{WBC}[facility] Shelby HospitalPROTEIN ELECTROPHORESIS SERUM (P)on 29-43-9259Hkivygi [Mass/Vol]3.63 g/dLNormal3.43-5.41[facility] Comment on above:Order Comment: Specimen Type: BLOOD SPECIMENOrdering Facility: [facility] Address:[address] [place] [address] Performed By: #### [id number] ####[facility] LABCLIA [id number] [place] [address] [place] Alpha 1 globulin Elph [Mass/Vol]0.29 g/dLNormal0.18-0.43[facility] on above:Order Comment: Specimen Type: BLOOD SPECIMENOrdering Facility: [facility] Address:[address] [place], [place] [address]Performed By: #### [id number] ####[facility] LABCLIA [id number] [place] [address] [place] Alpha 2 globulin Elph [Mass/Vol]0.77 g/dLNormal0.42-0.98[facility] on above:Order Comment: Specimen Type: BLOOD SPECIMENOrdering Facility: [facility] Address:[address] [place], [place] [address]Performed By: #### [id number] ####[facility] LABCLIA [id number] [address] [place], [place] [address] [place] Beta globulin Elph [Mass/Vol]0.80 g/dLNormal0.61-1.17[facility] Comment on above:Order Comment: Specimen Type: BLOOD SPECIMENOrdering Facility: [facility] Address:[address] [place] [address] Performed By: #### [id number] ####[facility] LABCLIA [id number] [place] [address] [place] Gamma globulin Elph [Mass/Vol]1.31 g/dLNormal0.53-1.51[facility] Comment on above:Order Comment: Specimen Type: BLOOD SPECIMENOrdering Facility: [facility] Address:[address] [place] [address] Performed By: #### [id number] ####[facility] LABCLIA [id number] [address] STATES [facility] INTERPRETATION COMMENT FOR PROTEIN ELECTROPHORESISSee separate immunofixation report for characterization of monoclonal gammopathy.NormalOhioHealth Arthur [facility] on above:Order Comment: Specimen Type: BLOOD SPECIMENOrdering Facility: [facility] Address:[address] [place], [place] [address]Performed By: #### [id number] ####[facility] LABCLIA [id number] [place] [address] [place] M-PROTEIN LOCATIONGamma Fraction 1NormalOhioHealth Arthur [facility] on above:Order Comment: Specimen Type: BLOOD SPECIMENOrdering Facility: [facility] Address:[address] [place], [place] [address]Performed By: #### [id number] ####[facility] LABCLIA [id number] [place] [address] [place] AMERICAProtein Fractions [Interp]An M protein is identified on protein electrophoresis.AbnormalNo definitive M protein is identified on protein electrophoresis.[facility] on above:Order Comment: Specimen Type: BLOOD SPECIMENOrdering Facility: [facility] Address:[address] [place], [place] [address]Performed By: #### [id number] ####[facility] LABCLIA [id number] [place] [address] [place] Protein.monoclonal Elph [Mass/Vol]0.43 g/dLHigh<=0.00[facility] Comment on above:Order Comment: Specimen Type: BLOOD SPECIMENOrdering Facility: [facility] Address:[address] [place] [address] Performed By: #### [id number] ####[facility] LABCLIA [id number] [place] [address] [place] SPE STAFF REVIEWReviewed by Namrata Byrd MDNormalCMercy Health St. [facility] Comment on above:Order Comment: Specimen Type: BLOOD SPECIMENOrdering Facility: [facility] Address:[address] [place] [address] Performed By: #### [id number] ####[facility] LABCLIA [id number] [place] [id number] [place] Phosphate SerPl-mCncon 57-40-6534Cwvdehjsk [Mass/Vol]2.8 mg/dLNormal2.7-4.8 [facility] HospitalComment on above:Order Comment: Specimen Type: BLOOD SPECIMENOrdering Facility: [facility] Address:[address] [place], [place] [address]Performed By: #### 3084-1, 2777-1, 2532-0, 82684-5 ####[facility] LABCLIA [id number] [place], [place] [address]Htapusvm mean volume Auto (Bld) [Entitic vol]Ordered By: Anibal Ash on 43-93-9615Oydnkqxi mean volume (Bld) [Entitic vol]9.6 fL 9.0-12.7FPremier Health Miami Valley Hospital SouthPlatelets Auto (Bld) [#/Vol]Ordered By: Anibal Ash on 86-94-2309Dnbbnkklo (Bld) [#/Vol]177 10*3/vU873-966OyzdgbhelOhiohealth Shelby HospitalProt SerPl-mCncon 29-99-5041Khevnwc [Mass/Vol]6.8 g/dL Normal6.3-8.0[facility] on above:Order Comment: Specimen Type: BLOOD SPECIMENOrdering Facility: [facility] Address:[address] [place], [place] [address]Performed By: #### 1952-1, 2885-2 ####[facility] LABCLIA [id number] [place] [address] [place] AMERICAPerformed By: #### 3084-1, 2777-1, 2532-0, 92647-9 ####[facility] LABCLIA [id number] [place], [place] [address]Ouurkyx [Mass/volume] in Serum or PlasmaOrdered By: Anibal Ash on 62-70-7634Xumniny [Mass/Vol]6.8 g/dL6.3-8.0[facility] Shelby HospitalRBC Auto (Bld) [#/Vol]Ordered By: Anibal Ash on 45-23-2814MLD (Bld) [#/Vol]4.19 10*6/uLLow4.20-6.00[facility] Hospitalerum ionized calcium measurement using ion specific electrode (mass/volume)Ordered By: Anibal Ash on 33-18-0556Hbcnybx.ionized ISE [Mass/Vol]1.31 mmol/LHigh 1.08-1.30[facility] Hospitalerum or plasma alpha 1 globulin measurement by electrophoresis (mass/volume)Ordered By: Anibal Ash on 12-92-2763Sskfc 1 globulin Elph [Mass/Vol]0.29 g/dL0.18-0.43[facility] Hospitalerum or plasma alpha 2 globulin measurement by electrophoresis (mass/volume)Ordered By: Anibal Ash on 11-69-6509Wkvzc 2 globulin Elph [Mass/Vol]0.77 g/dL0.42-0.98[facility] Hospitalerum or plasma anion gap determinationOrdered By: Anibal Ash on 87-48-3741Wfnqw gap [Moles/Vol]10 mmol/L11-05[facility] Hospitalerum or plasma beta globulin measurement by electrophoresis (mass/volume)Ordered By: Anibal Ash on 93-89-8635Nosu globulin Elph [Mass/Vol]0.80 g/dL0.61-1.17[facility] Hospitalerum or plasma rmat-5-gcgwfbgjyjksc measurement (mass/volume) Ordered By: Anibal Ash on 31-92-4017Qwfn-2-Microglobulin [Mass/Vol]4.6 ug/mLHigh<3.1FPremier Health Miami Valley Hospital SouthComment on above:Beta-2 Microglobulin test is performed using the [employer] immunoturbidimetric method. Results obtained with different methods or kits cannot be used interchangeably.Serum or plasma gamma globulin measurement by electrophoresis (mass/volume)Ordered By: Anibal Ash on 57-06-9533Fywqk globulin Elph [Mass/Vol]1.31 g/dL0.53-1.51Ohiohealth Shelby HospitalUrate SerPl-mCncon 94-68-6247Ttdfm [Mass/Vol]4.8 mg/dLNormal4.0-8.1CMercy Health St. [facility] Comment on above:Order Comment: Specimen Type: BLOOD SPECIMENOrdering Facility: [facility] Address:[address] [place] [address] Performed By: #### 3084-1, 2777-1, 2532-0, 08235-9 ####[facility] LABCLIA [id number] [place], [place] [address]SCUQpl 30-23-4946CFJHPxbthmOymuktfyr Clinic ClevelandCNOVNormalCMercy Health St. Joseph Warren HospitalCNPNon 87-65-4160PNYIJjycvfVmllwdrgv Clinic ClevelandBasi metabolic 2000 panelon 18-83-0316Qxvej gap [Moles/Vol]12 mmol/LNormal11-05[facility] HospitalComment on above:Order Comment: Specimen Type: BLOOD SPECIMENOrdering Facility: [facility] Address:[address] [place] [address]Zermmavcs By: #### 91382-9, , 2776-03 ####[facility] LABCLIA [id number] [place]IL[place] [address] [place] AMERICACalcium [Mass/Vol]9.5 mg/dLNormal8.5-10.2ClevelFirstHealthComment on above:Order Comment: Specimen Type: BLOOD SPECIMENOrdering Facility: [facility] Address:[address] [place], [place] [address]Performed By: #### 33785-1, , 2776-03 ####[facility] LABCLIA [id number] VILLE [address] [place] AMERICAChloride [Moles/Vol]101 mmol/TBcweyt21-059ZrobalhkuAvita Health System Galion HospitalComment on above:Order Comment: Specimen Type: BLOOD SPECIMENOrdering Facility: [facility] Address:[address] [place], [place] [address]Performed By: #### 95569-4, , 2776-03 ####[facility] LABIA [id number] [place]IL[place] [address] [place] AMERICACO2 [Moles/Vol]22 mmol/TNcuowh02-82ZojrmgbjkAvita [facility] System [facility] Comment on above:Order Comment: Specimen Type: BLOOD SPECIMENOrdering Facility: [facility] Address:[address] [place], [place] [address] Performed By: #### 15310-1, , 2776-03 ####[facility] LABIA [id number] VILLE [address] [place] AMERICACreatinine [Mass/Vol]1.23 mg/dLHigh0.73-1.22[facility] Comment on above:Order Comment: Specimen Type: BLOOD SPECIMENOrdering Facility: [facility] Address:[address] [place], [place] [address] Performed By: #### 32399-0, 2776-03 ####[facility] LABCLIA [id number] [address] [place] AMERICACreatinine and Glomerular filtration rate.predicted panel (S/P/Bld)58 mL/min/1.73m???Low>=60[facility] on above:Order Comment: Specimen Type: BLOOD SPECIMENOrdering Facility: [facility] Address:[address] [place], [place] [address]Result Comment: Estimated Glomerular Filtration Rate (eGFR) is calculated using the 2020 CKD-EPI creatinine equation. This equation utilizes serum creatinine, sex, and age as parameters. The creatinine assay has traceable calibration to isotope dilution-mass spectrometry. Refer to KDIGO guidelines for clinical interpretation. In patients with unstable renal function, e.g. those with acute kidney injury, the eGFR may not accurately reflect actual GFR.Performed By: #### 57404-5, , 2776-03 ####[facility] LABCLIA [id number] [address] [place] AMERICAGlucose [Mass/Vol]216 mg/dLHigh 74-99[facility] on above:Order Comment: Specimen Type: BLOOD SPECIMENOrdering Facility: [facility] Address:[address] [place], [place] [address]Result Comment: The [place] Diabetes Association (ADA) provides guidance for cutoff [...] Standards of Medical Care in Diabetes 2016, [place] Diabetes Association. Diabetes Care. 2016.39(Suppl 1).Performed By: #### 33254- 2, , 2776-03 ####[facility] LABCLIA [id number] [address] [place] AMERICAPotassium [Moles/Vol] 4.8 mmol/LNormal3.7-5.1CRiverside Methodist Hospital on above:Order Comment: Specimen Type: BLOOD SPECIMENOrdering Facility: [facility] Address:[address] [place], [place] [address]Performed By: #### 58597-4, , 2776-03 ####[facility] LABIA [id number] VILLE [address] [place] AMERICASodium [Moles/Vol]135 mmol/LLow 136-144[facility] on above:Order Comment: Specimen Type: BLOOD SPECIMENOrdering Facility: [facility] Address:[address] [place], [place] [address]Performed By: #### 12180-7, , 2776-03 ####[facility]ENTERIA [id number] VILLE [id number] [place] AMERICAUrea nitrogen [Mass/Vol]22 mg/dL Normal9-24[facility] on above:Order Comment: Specimen Type: BLOOD SPECIMENOrdering Facility: [facility] Address:[address] [place], [place] [address]Performed By: #### 28672-5, , 2776-03 ####[facility] CENTERIA [id number] VILLE [id number] [place] AMERICACB panel Auto (Bld)on 09-19-2024 Erythrocyte distribution width (RBC) [Ratio]13.2 %Pvpoif04.5-15.0[facility] on above:Order Comment: Specimen Type: BLOOD SPECIMENOrdering Facility: [facility] Address:[address] [place], [place] [address]Performed By: #### 18452-2 ####[facility] LABIA [id number] [place] [address] [place] AMERICAHematocrit (Bld) [Volume fraction]38.7 %Low39.0-51.0[facility] on above:Order Comment: Specimen Type: BLOOD SPECIMENOrdering Facility: [facility] Address:[address] [place], [place] [address]Performed By: #### 66911-9 ####[facility] [id number] [place] [address] [place] Hemoglobin (Bld) [Mass/Vol]12.8 g/dLLow13.0-17.0[facility] Comment on above:Order Comment: Specimen Type: BLOOD SPECIMENOrdering Facility: [facility] Address:[address] [place] [address] Performed By: #### 56958-9 ####[facility] [id number] [place] [address] [place] MCH (RBC) [Entitic mass]29.8 vqIwmgsk92.0-34.0[facility] on above:Order Comment: Specimen Type: BLOOD SPECIMENOrdering Facility: [facility] Address:[address] [place] [address] Performed By: #### 95727-0 ####[facility] [id number] [place] [address] [place] MCHC (RBC) [Mass/Vol]33.1 g/aDLpiehd13.5-36.0[facility] on above:Order Comment: Specimen Type: BLOOD SPECIMENOrdering Facility: [facility] Address:[address] [place] [address] Performed By: #### 12469-1 ####[facility] LABIA [id number] [place] [address] [place] MCV (RBC) [Entitic vol]90.2 iPDpsjwb61.0-100.0[facility] on above:Order Comment: Specimen Type: BLOOD SPECIMENOrdering Facility: [facility] Address:[address] [place] [address] Performed By: #### 13700-9 ####[facility] LABCLIA [id number] [place] [address] [place] Nucleated RBC (Bld) [#/Vol]10*3/uLNormal<0.01[facility] on above:Order Comment: Specimen Type: BLOOD SPECIMENOrdering Facility: [facility] Address:[address] [place] [address] Performed By: #### 69869-0 ####[facility] LABIA [id number] [place] [address] [place] Platelet mean volume (Bld) [Entitic vol]9.9 fLNormal9.0-12.7CRiverside Methodist Hospital on above:Order Comment: Specimen Type: BLOOD SPECIMENOrdering Facility: [facility] Address:[address] [place], [place] [address]Performed By: #### 23675-1 ####[facility] LABIA [id number] [place] [address] [place] Platelets (Bld) [#/Vol]207 10*3/nDUvnzsu916-971OlcrcyeztOhioHealth [facility] on above:Order Comment: Specimen Type: BLOOD SPECIMENOrdering Facility: [facility] Address:[address] [place] [address] Performed By: #### 81986-4 ####[facility] LABIA [id number] [place] [address] [place] RBC (Bld) [#/Vol]4.29 10*6/uLNormal4.20-6.00[facility] on above:Order Comment: Specimen Type: BLOOD SPECIMENOrdering Facility: [facility] Address:[address] [place] [address]Eqhjvxrmw By: #### 10418-7 ####[facility] LABIA [id number] [place] [address] [place] AMERICAWBC (Bld) [#/Vol]9.59 10*3/uLNormal3.70-11.00[facility] HospitalComment on above:Order Comment: Specimen Type: BLOOD SPECIMENOrdering Facility: [facility] Address:[address] [place], [place] [address]Performed By: #### 06464-3 ####[facility] LABIA [id number] [place] [address] [place] AMERICAErythrocyte distribution width Auto (RBC) [Ratio]Ordered By: Gurpreet Pang on 70-56-2107Skcfzsbpiaa distribution width (RBC) [Ratio]13.2 %11.5-15.0[facility] Hematocrit Auto (Bld) [Volume fraction]Ordered By: Gurpreet Pang on 09-19-2024 Hematocrit (Bld) [Volume fraction]38.7 %Low39.0-51.0[facility] Shelby HospitalHemoglobin [Mass/volume] in BloodOrdered By: Gurpreet Pang on 09-19-2024 Hemoglobin (Bld) [Mass/Vol]12.8 g/dLLow13.0-17.0[facility] HospitalLaboratory - Chemistry and Chemistry - challengeOrdered By: Gurpreet Pang on 30-10-9108Bemnisw [Mass/Vol]9.5 mg/dL8.5-10.2FPremier Health Miami Valley Hospital SouthChloride [Moles/Vol]101 mmol/F91-090FuayrkjpdOhiohealth Shelby HospitalCO2 [Moles/Vol]22 mmol/W17-03GgeasvngqOhiohealth Shelby HospitalCreatinine [Mass/Vol] 1.23 mg/dLHigh0.73-1.22[facility] HospitalGlucose [Mass/Vol]216 mg/jMTsup15-77PnjayiotuOhiohealth Shelby HospitalComment on above:The [place] Diabetes Association (ADA) provides guidance for cutoff [...] diabetes.Reference: Standardsof Medical Care in Diabetes 2016, [place] Diabetes Association. Diabetes Care. 2016.39(Suppl 1). Magnesium [Mass/Vol]1.8 mg/dL1.7-2.3FPremier Health Miami Valley Hospital SouthPotassium [Moles/Vol]4.8 mmol/L3.7-5.1FMount St. Mary Hospitalodium [Moles/Vol] 135 mmol/GRns473-325EnmutqfyhOhiohealth Shelby HospitalUrea nitrogen [Mass/Vol]22 mg/dL9-24[facility] HospitalLeukocytes [#/volume] corrected for nucleated erythrocytes in Blood by Automated counOrdered By: Gurpreet Pang on 48-26-4887SEB corrected for nucl RBC Auto (Bld) [#/Vol]9.59 k/uL3.70-11.00 [facility] Auto (RBC) [Entitic mass]Ordered By: Gurpreet Pang on 91-17-8384YSG (RBC) [Entitic mass]29.8 pg26.0-34.0[facility] HospitalMCHC Auto (RBC) [Mass/Vol]Ordered By: Gurpreet Pang on 09-19-2024 MCHC (RBC) [Mass/Vol]33.1 g/dL30.5-36.0[facility] HospitalMCV Auto (RBC) [Entitic vol]Ordered By: Gurpreet Pang on 01-03-3180AJC (RBC) [Entitic vol]90.2 fL80.0-100.0[facility] Shelby HospitalMagnesium SerPl-mCncon 72-35-9621Xwxsdhoci [Mass/Vol]1.8 mg/dLNormal1.7-2.3CMercy Health St. [facility] Comment on above:Order Comment: Specimen Type: BLOOD SPECIMENOrdering Facility: [facility] Address:[address] [place] [id number] Performed By: #### 62664-4, , 2776-03 ####[facility] LABCLIA [id number] VILLE [id number] [place] AMERICANo Panel InformationOrdered By: Gurpreet Pang on 63-01-9069Unuqdtmhy GFR (CKD-EPI)58 mL/min/1.73m???Low>=60[facility] Shelby HospitalComment on above:Estimated Glomerular Filtration Rate (eGFR) is calculated using the 2020 CKD-EPI creatinine equation. This equation utilizes serum creatinine, sex, and age as parameters. The creatinine assay has traceable calibration to isotope dilution-mass spectrometry. Refer to KDIGO guidelines for clinical inte rpretation. In patients with unstable renal function, e.g. those with acute kidney injury, the eGFRmay not accurately reflect actual GFR.Phosphorus Level2.4 mg/dLLow2.7-4.8Ohio[facility] Shelby HospitalNucleated RBC Auto (Bld) [#/Vol]Ordered By: Gurpreet Pang on 48-85-6967Tdxltjflk RBC (Bld) [#/Vol] 10*3/uL<0.01[facility] Shelby HospitalPhosphate SerPl-mCncon 09-19-2024 Phosphate [Mass/Vol]2.4 mg/dLLow2.7-4.8CMercy Health St. Joseph Warren HospitalComascension providence hospital on above:Order Comment: Specimen Type: BLOOD SPECIMENOrdering Facility: [facility] Address:[address] [place], [place] [address]Performed By: #### 35748-1, , 2776-03 ####[facility] LABIA [id number] VILLE [id number] [place] Platelet mean volume Auto (Bld) [Entitic vol]Ordered By: Gurpreet Pang on 71-78-0474Dwovoaef mean volume (Bld) [Entitic vol]9.9 fL9.0-12.7FPremier Health Miami Valley Hospital SouthPlatelets Auto (Bld) [#/Vol]Ordered By: Gurpreet Pang on 93-21-3122Fnknkmqhf (Bld) [#/Vol]207 10*3/hD466-167GzamewpjoOhiohealth Shelby HospitalRBC Auto (Bld) [#/Vol]Ordered By: Gurpreet Pang on 75-30-7298OEF (Bld) [#/Vol]4.29 10*6/uL4.20-6.00Morrow County Hospitalerum or plasma anion gap determinationOrdered By: Gurpreet Pang on 07-16-0182Hrqto gap [Moles/Vol]12 mmol/L8-15[facility] HospitalBasic metabolic 2000 panelon 71-58-0628Kybfi gap [Moles/Vol]11 mmol/LNormal8-15[facility] on above:Order Comment: Specimen Type: BLOOD SPECIMENOrdering Facility: [facility] Address:[address] [place], [place] [address]Performed By: #### 20393-1, 2777-1, 18800-1 ####[facility] LABCLIA [id number][place] [address] [place] AMERICACalcium [Mass/Vol]9.4 mg/dLNormal8.5-10.2CRiverside Methodist Hospital on above:Order Comment: Specimen Type: BLOOD SPECIMENOrdering Facility: [facility] Address:[address] [place], [place] [address]Performed By: #### 27206-9, 2777-1, 79772-8 ####[facility] LABCLIA [id number][place] [address] [place] AMERICAChloride [Moles/Vol]102 mmol/YJmezic10-412WryfksvacOhioHealth Arthur [facility] on above:Order Comment: Specimen Type: BLOOD SPECIMENOrdering Facility: [facility] Address:[address] [place], [place] [address]Performed By: #### 20368-0, 2777-1, 73631-3 ####[facility] LABCLIA [id number] [place]IL[place] [id number] [place] AMERICACO2 [Moles/Vol]22 mmol/LUrwwup62-30SujbttahnAvita Health System [facility] Comment on above:Order Comment: Specimen Type: BLOOD SPECIMENOrdering Facility: [facility] Address:[address] [place], [place] [address] Performed By: #### 79627-3, 2777-1, 85848-4 ####[facility] LABIA [id number] VILLE [id number] [place] AMERICACreatinine [Mass/Vol]1.32 mg/dLHigh0.73-1.22[facility] Comment on above:Order Comment: Specimen Type: BLOOD SPECIMENOrdering Facility: [facility] Address:[address] [place] [address] Performed By: #### 20917-8, 2777-1, 50720-4 ####[facility] [id number][place] [address] [place] [facility]ERMAN HOSPITALCreatinine and Glomerular filtration rate.predicted panel (S/P/Bld)54 mL/min/1.73m???Low>=60[facility] HospitalComment on above:Order Comment: Specimen Type: BLOOD SPECIMENOrdering Facility: [facility] Address:[address] [place], [place] [address]Result Comment: Estimated Glomerular Filtration Rate (eGFR) is calculated using the 2020 CKD-EPI creatinine equation. This equation utilizes serum creatinine, sex, and age as parameters. The creatinine assay has traceable calibration to isotope dilution-mass spectrometry. Refer to KDIGO guidelines for clinical interpretation. In patients with unstable renal function, e.g. those with acute kidney injury, the eGFR may not accurately reflect actual GFR.Performed By: #### 42010-3, 2777-1, 78364-1 ####[facility] LABIA [id number] [address] [place] AMERICAGlucose [Mass/Vol]297 mg/dLHigh 74-99[facility] HospitalComment on above:Order Comment: Specimen Type: BLOOD SPECIMENOrdering Facility: [facility] Address:[address] [place] [address]Ouasze Comment: The [place] Diabetes Association (ADA) provides guidance for cutoff [...] Standards of Medical Care in Diabetes 2016, [place] Diabetes Association. Diabetes Care. 2016.39(Suppl 1).Performed By: #### 83995- 9, 2777-, 62000-5 ####[facility] LABCLIA [id number] VILLE [id number] [place] AMERICAPotassium [Moles/Vol] 4.8 mmol/LNormal3.7-5.1CRiverside Methodist Hospital on above:Order Comment: Specimen Type: BLOOD SPECIMENOrdering Facility: [facility] Address:[address] [place] [address]Msdbsiiqs By: #### 81841-7, 2777, 01014-4 ####[facility] LABIA [id number] [place]IL[place] [id number] [place] AMERICASodium [Moles/Vol]135 mmol/LLow 136-144[facility] on above:Order Comment: Specimen Type: BLOOD SPECIMENOrdering Facility: [facility] Address:[address] [place] [address]Iguwjkwuh By: #### 93845-1, 2777, 36992-9 ####[facility] LABCLIA [id number] [address] [place] AMERICAUrea nitrogen [Mass/Vol]20 mg/dL Normal9-24[facility] on above:Order Comment: Specimen Type: BLOOD SPECIMENOrdering Facility: [facility] Address:[address] [place], [place] [address]Performed By: #### 85550-4, 2777-1, 99110-1 ####[facility] LABCLIA [id number]CBC panel Auto (Bld)on 09-18-2024 Erythrocyte distribution width (RBC) [Ratio]13.0 %Ujqghr07.5-15.0[facility] on above:Order Comment: Specimen Type: BLOOD SPECIMENOrdering Facility: [facility] Address:[address] [place], [place] [address]Performed By: #### 30480-0 ####[facility] LABIA [id number] [address] STATES [facility]PRESBYTERIAN HOSPITALHematocrit (Bld) [Volume fraction]38.7 %Low39.0-51.0[facility] on above:Order Comment: Specimen Type: BLOOD SPECIMENOrdering Facility: [facility] Address:[address] [place], [place] [address]Performed By: #### 20814-4 ####[facility] LABIA [id number] [address] [place] Hemoglobin (Bld) [Mass/Vol]12.8 g/dLLow13.0-17.0[facility] Comment on above:Order Comment: Specimen Type: BLOOD SPECIMENOrdering Facility: [facility] Address:[address] [place] [address] Performed By: #### 32617-2 ####[facility] LABIA [id number] [place] [address] [place] MCH (RBC) [Entitic mass]30.0 olNajclp84.0-34.0[facility] on above:Order Comment: Specimen Type: BLOOD SPECIMENOrdering Facility: [facility] Address:[address] [place] [address] Performed By: #### 54418-4 ####[facility] LABIA [id number] [place] [address] [place] MCHC (RBC) [Mass/Vol]33.1 g/sGSsjwfg11.5-36.0[facility] on above:Order Comment: Specimen Type: BLOOD SPECIMENOrdering Facility: [facility] Address:[address] [place] [address] Performed By: #### 33886-7 ####[facility] LABIA [id number] [place] [address] [place] MCV (RBC) [Entitic vol]90.6 lQVxnlbf33.0-100.0[facility] on above:Order Comment: Specimen Type: BLOOD SPECIMENOrdering Facility: [facility] Address:[address] [place] [address] Performed By: #### 62307-9 ####[facility] LABIA [id number] [place] [address] [place] Nucleated RBC (Bld) [#/Vol]10*3/uLNormal<0.01[facility] on above:Order Comment: Specimen Type: BLOOD SPECIMENOrdering Facility: [facility] Address:[address] [place] [address] Performed By: #### 90488-8 ####[facility] LABCLIA [id number] [place] [address] [place] Platelet mean volume (Bld) [Entitic vol]9.7 fLNormal9.0-12.7CRiverside Methodist Hospital on above:Order Comment: Specimen Type: BLOOD SPECIMENOrdering Facility: [facility] Address:[address] [place], [place] [address]Performed By: #### 11168-2 ####[facility] LABCLIA [id number] [address] [address] [place] Platelets (Bld) [#/Vol]219 10*3/iQCybzxj075-622KuljgdrjqOhioHealth [facility] on above:Order Comment: Specimen Type: BLOOD SPECIMENOrdering Facility: [facility] Address:[address] [place] [address] Performed By: #### 90464-8 ####[facility] [id number] [place] [address] [place] RBC (Bld) [#/Vol]4.27 10*6/uLNormal4.20-6.00[facility] on above:Order Comment: Specimen Type: BLOOD SPECIMENOrdering Facility: [facility] Address:[address] [place], [place] [address]Performed By: #### 30663-2 ####[facility] [id number] [place] [address] [place] OF AMERICAWBC (Bld) [#/Vol]12.31 10*3/uLHigh3.70-11.00[facility] on above:Order Comment: Specimen Type: BLOOD SPECIMENOrdering Facility: [facility] Address:[address] [place], [place] [address]Performed By: #### 30494-8 ####[facility] [id number] [place] [address] [place] AMERICACNDSon 57-07-4844CGLMAhxwuh [facility] HospitalErythrocyte distribution width Auto (RBC) [Ratio] Ordered By: Gurpreet Pang on 31-83-4405Xoihzjgptny distribution width (RBC) [Ratio]13.0 %11.5-15.0[facility] HospitalHematocrit Auto (Bld) [Volume fraction]Ordered By: Gurpreet Pang on 15-07-9870Dhooklpokx (Bld) [Volume fraction]38.7 %Low39.0-51.0[facility] HospitalHemoglobin [Mass/volume] in BloodOrdered By: Gurpreet Pang on 25-89-0693Jlvipkmlvq (Bld) [Mass/Vol]12.8 g/dLLow13.0-17.0[facility] HospitalLaboratory - Chemistry and Chemistry - challengeOrdered By: Gurpreet Pang on 09-18-2024 Calcium [Mass/Vol]9.4 mg/dL8.5-10.2FPremier Health Miami Valley Hospital SouthChloride [Moles/Vol]102 mmol/G29-458QbvjskyhoOhiohealth Shelby HospitalCO2 [Moles/Vol]22 mmol/X10-11SuqrbxcttOhiohealth Shelby HospitalCreatinine [Mass/Vol]1.32 mg/dLHigh 0.73-1.22[facility] HospitalGlucose [Mass/Vol]297 mg/kSNrlp35-56 [facility] HospitalComment on above:The Ch[place] Diabetes Association (ADA) provides guidance for cutoff [...] diabetes.Reference: Standardsof Medical Care in Diabetes 2016, [place] Diabetes Association. Diabetes Care. 2016.39(Suppl 1). Magnesium [Mass/Vol]1.8 mg/dL1.7-2.3FPremier Health Miami Valley Hospital SouthPotassium [Moles/Vol]4.8 mmol/L3.7-5.1FMount St. Mary Hospitalodium [Moles/Vol] 135 mmol/KLwu092-488WmhordfzoOhiohealth Shelby HospitalUrea nitrogen [Mass/Vol]20 mg/dL9-24[facility] HospitalLeukocytes [#/volume] corrected for nucleated erythrocytes in Blood by Automated counOrdered By: Gurpreet Pang on 97-30-3485SIP corrected for nucl RBC Auto (Bld) [#/Vol]12.31 k/uLHigh3.70-11.00 [facility] HospitalMC Auto (RBC) [Entitic mass]Ordered By: Gurpreet Pang on 74-02-6063SCR (RBC) [Entitic mass]30.0 pg26.0-34.0[facility] Auto (RBC) [Mass/Vol]Ordered By: Gurpreet Pang on 09-18-2024 MCHC (RBC) [Mass/Vol]33.1 g/dL30.5-36.0[facility] HospitalMCV Auto (RBC) [Entitic vol]Ordered By: Gurpreet Pang on 60-28-1278LGC (RBC) [Entitic vol]90.6 fL80.0-100.0[facility] HospitalMagnesium SerPl-mCncon 80-57-0976Mnhxyfduj [Mass/Vol]1.8 mg/dLNormal1.7-2.3CMercy Health St[facility] Comment on above:Order Comment: Specimen Type: BLOOD SPECIMENOrdering Facility: [facility] Address:[address] [place] [address] Performed By: #### 07182-3, 2777-1, 89930-2 ####[facility] LABCLIA [id number] OF [facility] HOSPITALURSTARAVISTA BEH[facility] PROGon 19-46-1469GSUFKNI PROGNDayton VA Medical Center NURSING PROGNormalAvita Health System Galion HospitalNURSING [facility] HospitalNo Panel InformationOrdered By: Gurpreet Pang on 33-60-9840Hfinlqsue GFR (CKD-EPI)54 mL/min/1.73m???Low>=60[facility] HospitalComment on above:Estimated Glomerular Filtration Rate (eGFR) is calculated using the 2020 CKD-EPI creatinine equation. This equation utilizes serum creatinine, sex, and age as parameters. The creatinine assay has traceable calibration to isotope dilution-mass spectrometry. Refer to KDIGO guidelines for clinical inte rpretation. In patients with unstable renal function, e.g. those with acute kidney injury, the eGFRmay not accurately reflect actual GFR.Phosphorus Level2.7 mg/dL2.7-4.8[facility] HospitalNucleated RBC Auto (Bld) [#/Vol] Ordered By: Gurpreet Pang on 68-10-0525Mqsrfievq RBC (Bld) [#/Vol]10*3/uL<0.01 [facility] HospitalPhosphate SerPl-mCncon 45-11-1673Vkhvgelyf [Mass/Vol]2.7 mg/dLNormal2.7-4.8CRiverside Methodist Hospital on above:Order Comment: Specimen Type: BLOOD SPECIMENOrdering Facility: [facility] Address:[address] [place], [place] [address]Performed By: #### 73583- 9, 2777-1, 29721-4 ####[facility] LABCLIA [id number] [address] [place] AMERICAPlatelet mean volume Auto (Bld) [Entitic vol]Ordered By: Gurpreet Pang on 48-25-0984Afbdmgem mean volume (Bld) [Entitic vol]9.7 fL9.0-12.7FPremier Health Miami Valley Hospital South Platelets Auto (Bld) [#/Vol]Ordered By: Gurpreet Pang on 17-12-7169Ftcurvftu (Bld) [#/Vol]219 10*3/hN627-888QzexcnhfkOhiohealth Shelby HospitalRBC Auto (Bld) [#/Vol]Ordered By: Gurpreet Pang on 06-04-7306JJU (Bld) [#/Vol]4.27 10*6/uL 4.20-6.00Morrow County Hospitalerum or plasma anion gap determinationOrdered By: Gurpreet Pang on 83-09-5733Owltm gap [Moles/Vol]11 mmol/L8-15[facility] HospitalANES POSTPROC EVALon 13-20-8119GFKM POSTPROC EVALNormalCMercy Health St. Joseph Warren HospitalANES PRE-OPon 27-65-6456COOZ PRE-OP NormalAvita Health System Galion HospitalBariver valley behavioral health hospital metabolic 2000 panelon 45-49-6348Sgylj gap [Moles/Vol]12 mmol/LNormal8-15[facility] on above:Order Comment: Specimen Type: BLOOD SPECIMENOrdering Facility: [facility] Address:[address] [place], [place] [address]Performed By: #### 48710- 9, 2777-1, 08403-5 ####[facility] LABCLIA [id number] [address] [address] [place] AMERICACalcium [Mass/Vol]9.2 mg/dLNormal8.5-10.2CRiverside Methodist Hospital on above:Order Comment: Specimen Type: BLOOD SPECIMENOrdering Facility: [facility] Address:[address] [place], [place] [address]Performed By: #### 22097-5, 27771, 94293-0 ####[facility] LABCLIA [id number] [address] [place] AMERICAChloride [Moles/Vol]104 mmol/L Evmwdh54-106AopstaqcgOhioHealth [facility]. [facility] on above:Order Comment: Specimen Type: BLOOD SPECIMENOrdering Facility: [facility] Address:[address] [place], [place] [address]Performed By: #### 06278-6, 27709-21, 42136-3 ####[facility] LABCLIA [id number] VILLE [address] [place] AMERICACO2 [Moles/Vol]20 mmol/XPxk39-76 [facility] on above:Order Comment: Specimen Type: BLOOD SPECIMENOrdering Facility: [facility] Address:[address] [place], [place] [address]Performed By: #### 47517-4, 27709-21, 04402-0 ####[facility] LABCLIA [id number] [address] [place] AMERICACreatinine [Mass/Vol]1.11 mg/dLNormal0.73-1.22 [facility] on above:Order Comment: Specimen Type: BLOOD SPECIMENOrdering Facility: [facility] Address:[address] [place], [place] [address]Performed By: #### 30341-9, 2777-1, 58796-4 ####[facility] [id number] [address] [place] AMERICACreatinine and Glomerular filtration rate.predicted panel (S/P/Bld)66 mL/min/1.73m???Normal>=60[facility] on above:Order Comment: Specimen Type: BLOOD SPECIMENOrdering Facility: [facility] Address:[address] [place], [place] [address]Result Comment: Estimated Glomerular Filtration Rate (eGFR) is [...] accurately reflect actual GFR. Performed By: #### 62436-2, 2777-1, 84769-2 ####[facility] LABIA [id number] [address] [place] AMERICAGlucose [Mass/Vol]317 mg/uMSttv95-58FugsktqbdOhioHealth Arthur G.[facility]. [facility] on above:Order Comment: Specimen Type: BLOOD SPECIMENOrdering Facility: [facility] Address:[address] [place], [place] [address]Result Comment: The Ch[place] Diabetes Association (ADA) provides guidance for cutoff [...] Standards of Medical Care in Diabetes 2016, [place] Diabetes Association. Diabetes Care. 2016.39(Suppl 1).Performed By: #### 08858-2, 2777-1, 60803-4 ####[facility] LABCLIA [id number] [address] [place] AMERICAPotassium [Moles/Vol]4.1 mmol/LNormal3.7-5.1 [facility] on above:Order Comment: Specimen Type: BLOOD SPECIMENOrdering Facility: [facility] Address:[address] [place], [place] [address]Performed By: #### 96838-0, 2777-, 70941-6 ####[facility] LABIA [id number] VILLE [address] [place] [facility]PRESBY[facility]IAN HOSPITALSodium [Moles/Vol]136 mmol/IHlvjco456-752AturxuwivAvita Health System Galion HospitalComment on above:Order Comment: Specimen Type: BLOOD SPECIMENOrdering Facility: [facility] Address:[address] [place], [place] [address]Performed By: #### 47790-0, 2777-, 64240-3 ####[facility]ENTERIA [id number] VILLE [address] [place] AMERICAUrea nitrogen [Mass/Vol]14 mg/dLNormal9-24 [facility] on above:Order Comment: Specimen Type: BLOOD SPECIMENOrdering Facility: [facility] Address:[address] [place], [place] [address]Performed By: #### 81475-5, 2777-, 90073-6 ####[facility]ENTERIA [id number] [address] [facility] CENTERCB panel Auto (Bld)on 87-52-0760Yowzlagyrjn distribution width (RBC) [Ratio]12.9 %Jclxok11.5-15.0[facility] Comment on above:Order Comment: Specimen Type: BLOOD SPECIMENOrdering Facility: [facility] Address:[address] [place] [address] Performed By: #### 62513-5 ####[facility] LABIA [id number] [place] [address] [place] Hematocrit (Bld) [Volume fraction]39.8 %Lsjiij68.0-51.0[facility] on above:Order Comment: Specimen Type: BLOOD SPECIMENOrdering Facility: [facility] Address:[address] [place], [place] [address]Performed By: #### 57437-6 ####[facility] LABIA [id number] [place] [address] [place] Hemoglobin (Bld) [Mass/Vol]12.9 g/dLLow13.0-17.0[facility] Comment on above:Order Comment: Specimen Type: BLOOD SPECIMENOrdering Facility: [facility] Address:[address] [place] [address] Performed By: #### 79290-4 ####[facility] [id number] [place] [address] [place] MCH (RBC) [Entitic mass]29.6 utBpxnlf57.0-34.0[facility] on above:Order Comment: Specimen Type: BLOOD SPECIMENOrdering Facility: [facility] Address:[address] [place] [address] Performed By: #### 48893-6 ####[facility] LABIA [id number] [place] [address] [place] MCHC (RBC) [Mass/Vol]32.4 g/sWCnuriu82.5-36.0[facility] on above:Order Comment: Specimen Type: BLOOD SPECIMENOrdering Facility: [facility] Address:[address] [place] [address] Performed By: #### 51328-3 ####[facility] LAB[facility] [id number] [place] [address] [place] MCV (RBC) [Entitic vol]91.3 eCQjlnum14.0-100.0[facility] on above:Order Comment: Specimen Type: BLOOD SPECIMENOrdering Facility: [facility] Address:[address] [place] [address] Performed By: #### 79729-7 ####[facility] LABCLIA [id number] [place] [address] [place] Nucleated RBC (Bld) [#/Vol]10*3/uLNormal<0.01[facility] on above:Order Comment: Specimen Type: BLOOD SPECIMENOrdering Facility: [facility] Address:[address] [place] [address] Performed By: #### 40412-8 ####[facility] LABIA [id number] [place] [address] [place] Platelet mean volume (Bld) [Entitic vol]9.5 fLNormal9.0-12.7CRiverside Methodist Hospital on above:Order Comment: Specimen Type: BLOOD SPECIMENOrdering Facility: [facility] Address:[address] [place], [place] [address]Performed By: #### 77962-2 ####[facility] LABIA [id number] [place] [address] [place] Platelets (Bld) [#/Vol]173 10*3/jTGtiljh671-834FpjcmordlOhioHealth [facility] on above:Order Comment: Specimen Type: BLOOD SPECIMENOrdering Facility: [facility] Address:[address] [place] [address] Performed By: #### 50472-0 ####[facility] LABIA [id number] [place] [address] [place] RBC (Bld) [#/Vol]4.36 10*6/uLNormal4.20-6.00[facility] on above:Order Comment: Specimen Type: BLOOD SPECIMENOrdering Facility: [facility] Address:[address] [place], [place] [address]Performed By: #### 33850-1 ####[facility] LABIA [id number] [place] [address] [place] GERMAN HOSPITALWBC (Bld) [#/Vol]9.38 10*3/uLNormal3.70-11.00[facility] HospitalComment on above:Order Comment: Specimen Type: BLOOD SPECIMENOrdering Facility: [facility] Address:[address] [place], [place] [address]Performed By: #### 92665-0 ####[facility] LABIA [id number] [place] [address] [place] AMERICAErythrocyte distribution width Auto (RBC) [Ratio]Ordered By: Gurpreet Pang on 98-77-8128Mxkqcvipqbi distribution width (RBC) [Ratio]12.9 %11.5-15.0[facility] Hematocrit Auto (Bld) [Volume fraction]Ordered By: Gurpreet Pang on 09-17-2024 Hematocrit (Bld) [Volume fraction]39.8 %39.0-51.0[facility] HospitalHemoglobin [Mass/volume] in BloodOrdered By: Gurpreet Pang on 09-17-2024 Hemoglobin (Bld) [Mass/Vol]12.9 g/dLLow13.0-17.0[facility] HospitalLaboratory - Chemistry and Chemistry - challengeOrdered By: Gurpreet Pang on 61-56-7873Rhenylg [Mass/Vol]9.2 mg/dL8.5-10.2FPremier Health Miami Valley Hospital SouthChloride [Moles/Vol]104 mmol/J72-128FhmahehxiOhiohealth Shelby HospitalCO2 [Moles/Vol]20 mmol/CZzc97-99RdseifakjOhiohealth Shelby HospitalCreatinine [Mass/Vol]1.11 mg/dL0.73-1.22[facility] HospitalGlucose [Mass/Vol] 317 mg/gTXohl53-22AwbemyuhyOhiohealth Shelby HospitalComment on above:The [place] Diabetes Association (ADA) provides guidance for cutoff [...] diabetes.Reference: Standardsof Medical Care in Diabetes 2016, [place] Diabetes Association. Diabetes Care. 2016.39(Suppl 1). Magnesium [Mass/Vol]1.6 mg/dLLow1.7-2.3FPremier Health Miami Valley Hospital South Potassium [Moles/Vol]4.1 mmol/L3.7-5.1FMount St. Mary Hospitalodium [Moles/Vol]136 mmol/O289-531UowhvfthxOhiohealth Shelby HospitalUrea nitrogen [Mass/Vol]14 mg/dL9-24[facility] HospitalLeukocytes [#/volume] corrected for nucleated erythrocytes in Blood by Automated counOrdered By: Gurpreet Pang on 72-11-6804RGG corrected for nucl RBC Auto (Bld) [#/Vol]9.38 k/uL3.70-11.00[facility] Auto (RBC) [Entitic mass] Ordered By: Gurpreet Pang on 65-41-6168GVT (RBC) [Entitic mass]29.6 pg26.0-34.0 [facility] RehabilitationHC Auto (RBC) [Mass/Vol]Ordered By: Gurpreet Pang on 88-04-9498HMSK (RBC) [Mass/Vol]32.4 g/dL30.5-36.0[facility] Hospital for RehabilitationV Auto (RBC) [Entitic vol]Ordered By: Gurpreet Pang on 19-53-9096JHA (RBC) [Entitic vol]91.3 fL80.0-100.0[facility] HospitalMagnesium SerPl-mCncon 04-18-2881Ivgwkysqs [Mass/Vol]1.6 mg/dLLow1.7-2.3 [facility] on above:Order Comment: Specimen Type: BLOOD SPECIMENOrdering Facility: [facility] Address:[address] [place], [place] [address]E[place]ARMATTHE[place] [address]Performed By: #### 06827-8, 2777-1, 42564-0 ####[facility] LABCLIA [id number] [place] [address] [place] AMERICANo Panel InformationOrdered By: Gurpreet Pang on 59-49-3825Qvtsavnpe GFR (CKD-EPI)66 mL/min/1.73m???>=60[facility] HospitalComment on above:Estimated Glomerular Filtration Rate (eGFR) is calculated using the 2020 CKD-EPI creatinine equation. This equation utilizes serum creatinine, sex, and age as parameters. The creatinine assay has traceable calibration to isotope dilution-mass spectrometry. Refer to KDIGO guidelines for clinical interpretation. In patients with unstable renal function, e.g. those with acute kidney injury, the eGFRmay not accurately reflect actual GFR. Phosphorus Level2.4 mg/dLLow2.7-4.8[facility] Shelby HospitalNucleated RBC Auto (Bld) [#/Vol]Ordered By: Gurpreet Pang on 14-49-8080Tfwxkfugq RBC (Bld) [#/Vol]10*3/uL<0.01[facility] HospitalOPERATIVE NOon 05-65-4899ZJRYDXSBD NONormalAvita Health System Galion HospitalOPERATIVE NONormal [facility] HospitalPathology biopsy report Augie (Tiss)on 18-79-8472UT DISCLAIMERNormalCRiverside Methodist Hospital on above:Order Comment: Specimen Type: TISSUE SPECIMENOrdering Facility: [facility] Address: [address] [place], [place] [address]Ema [place], [place] [address]Ayohzo Comment: Laboratory Developed Test (LDT) Disclaimer:Performance characteristics of immunohist ochemical, immunofluorescent, and chromogenic in-situ hybridization tests have been determined by the performing laboratory within [facility]'s Jagdish Owusu Pathology and Laboratory Medicine Department ([facility], [facility], [facility], [facility], [facility], [facility], or [facility]) in a manner consistent with CLIA requirements. One or more of these tests may not have been cleared or approved by the FDA. [employer] is regulated under CLIA as qualified to perform high-complexity testing. These tests are used for clinical purposes. These should not be regarded as investigational or for research. Positive and negative controls stain appropriately.Performed By: #### 85909-1 ####[facility] LABCLIA [id number] [address] [place] [address] [facility] CENTERBLMCKENZIE REGIONAL [facility]PITAL FOR ADDITIONAL BIOMARKERS/MOLECULAR STUDIES [address] on above:Order Comment: Specimen Type: TISSUE SPECIMENOrdering Facility: [facility] Address: [address] [place], [place] [address]Performed By: #### 60669-7 ####[facility] LABIA [id number] [address] [place] [address] [facility] CENTERCASE [facility] on above:Order Comment: Specimen Type: TISSUE SPECIMENOrdering Facility: [facility] Address: [address] [place], [place] [address]Result Comment: Surgical Pathology Report Case: [id number] Provider: Gurpreet Pang MDCollected: 09/17/2024 10:21 AMOrdering Location: Admitting Received: 09/17/2024 11:44 AMPathologist: Chen Pireto MDSpecimens: A) - Parotid Gland, Left, Resection, left extended parotidectomy B) -Lymph Node (Specify Site in Comments), left level 2 lymph nodePerformed By: #### 11113-7 ####[facility] LABCLIA [id number] [address] [place] [address] [facility] MED[facility] CENTERCLINICAL [facility] Comment on above:Order Comment: Specimen Type: TISSUE SPECIMENOrdering Facility: [facility] Address: [address] [place] [address]Trykvt Comment: 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 on above:Order Comment: Specimen Type: TISSUE SPECIMENOrdering Facility: [facility] Address: [address] [place], [place] [address]Performed By: #### 81114-3 ####[facility] LABCLIA [id number] [address] [place] [address] [place] OF GERMAN HOSPITALFINAL DIAGNOSISNormalCRiverside Methodist Hospital on above:Order Comment: Specimen Type: TISSUE SPECIMENOrdering Facility: [facility] Address: [address] [place], [place] [address]Result Comment: A. 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 (See comment and synoptic report.)- One lymph node, negative for malignancy (0/1).B. Lymph node,left level 2, excision:- One lymph node, negative for malignancy (0/1). at 1323 EDTPerformed By: #### 17318-5 ####[facility] LABCLIA [id number] [address] [place] [address] [place] [facility] PERFORMING LABNoHolmes County [facility] on above: Order Comment: Specimen Type: TISSUE SPECIMENOrdering Facility: [facility] Address: [address] [place], [place] [address]Result Comment: Diagnostic interpretation performed at: [facility], [address] [place] [address], [address] [place] [address] CLIA# [id number] Director: COLTON Shresthaerformed By: #### 21996-3 ####[facility] LABCLIA [id number] [address] [place] [address] [facility] HOSPITALGROSS DESCRIPTIONNormNorwalk Memorial Hospital on above:Order Comment: Specimen Type: TISSUE SPECIMENOrdering Facility: [facility] Address: [address] [place], [place] [address]Result Comment: A. Parotid Gland, Left, ResectionLabeled: ???Left [...] lymph node candidateCassette Code:Totally submitted trisected in O0Mnqnf examination performed at [facility], [address] [place] [address] 51335FMM/HARPREET 09/17/24 1:21 PMPerformed By: #### 52001-5 ####[facility] LABCLIA [id number] [place] [address] [place] AMERICASYNOPTIC REPORTNormal [facility]ion HospitalComment on above:Order Comment: Specimen Type: TISSUE SPECIMENOrdering Facility: [facility] Address: [address] [id number] Comment: MAJOR SALIVARY GLANDSMAJOR SALIVARY GLANDS: RESECTION - All Jbfzahtps7ew Edition - Protocol posted: 09/11/2022SPECIMEN Procedure: Parotidectomy, [...] pathology report. pT Category: pT2 pN Category: [id number] FINDINGS Additional Findings: None identifiedPerformed By: #### 41535-3 ####[facility] LABCLIA [id number] [place] [address] [place] AMERICAPhosphate SerPl-mCncon 73-10-6593Uuzwfbzmz [Mass/Vol]2.4 mg/dLLow2.7-4.8ClevelFirstHealthComascension providence hospital on above:Order Comment: Specimen Type: BLOOD SPECIMENOrdering Facility: [facility] Address:[address] [place], [place] [address]Performed By: #### 70343- 9, 2777-1, 75057-7 ####[facility] LABCLIA [id number] [address] [place] AMERICAPlatelet mean volume Auto (Bld) [Entitic vol]Ordered By: Gurpreet Pang on 98-54-9746Ctqssbeg mean volume (Bld) [Entitic vol]9.5 fL9.0-12.7FPremier Health Miami [facility] Hospital [facility] Platelets Auto (Bld) [#/Vol]Ordered By: Gurpreet Pang on 34-33-9352Taauqowsj (Bld) [#/Vol]173 10*3/jI671-942YbnsfvjjpOhiohealth Shelby HospitalRBC Auto (Bld) [#/Vol]Ordered By: Gurpreet Pang on 16-81-9506JXW (Bld) [#/Vol]4.36 10*6/uL 4.20-6.00Morrow County Hospitalerum or plasma anion gap determinationOrdered By: Gurpreet Pang on 24-30-6524Obwlg gap [Moles/Vol]12 mmol/L8-15[facility] Shelby HospitalCNPNon 98-37-8175HPOKEnunheGdyoksypd Clinic ClevelandBariver valley [facility] metabolic 2000 panelon 22-45-8646Kbhkr gap [Moles/Vol]12 mmol/LNormal8-15[facility] on above:Order Comment: Specimen Type: BLOOD SPECIMENOrdering Facility: [facility] Address:[address] [place], [place] [address]Performed By: #### 25066-4 ####[facility] LABIA [id number] [place] [address] [place] AMERICACalcium [Mass/Vol]9.6 mg/dLNormal 8.5-10.2CRiverside Methodist Hospital on above:Order Comment: Specimen Type: BLOOD SPECIMENOrdering Facility: [facility] Address:[address] [place], [place] [address]Performed By: #### 06148-3 ####[facility] LABIA [id number] [address] [address] [place] OF AMERICAChloride [Moles/Vol]103 mmol/AIdaxrc94-762EfvzcdyvsOhioHealth [facility] on above:Order Comment: Specimen Type: BLOOD SPECIMENOrdering Facility: [facility] Address:[address] [place], [place] [address]Performed By: #### 95180-2 ####[facility] LABIA [id number] [place] [address] [place] AMERICACO2 [Moles/Vol]21 mmol/LYec44-72UwwlgcgxqOhioHealth [facility] on above:Order Comment: Specimen Type: BLOOD SPECIMENOrdering Facility: [facility] Address:[address] [place], [place] [address]Performed By: #### 55667-3 ####[facility] [id number] [place] [address] [place] AMERICACreatinine [Mass/Vol] 1.24 mg/dLHigh0.73-1.22[facility] on above:Order Comment: Specimen Type: BLOOD SPECIMENOrdering Facility: [facility] Address:[address] [place], [place] [address]Performed By: #### 94372-8 ####[facility] [id number] [place] [address] [place] AMERICACreatinine and Glomerular filtration rate.predicted panel (S/P/Bld)58 mL/min/1.73m???Low>=60[facility] on above:Order Comment: Specimen Type: BLOOD SPECIMENOrdering Facility: [facility] Address:[address] [place], [place] [address]Result Comment: Estimated Glomerular Filtration Rate (eGFR) is calculated using the 2020 CKD-EPI creatinine equation. This equation utilizes serum creatinine, sex, and age as parameters. The creatinine assay has traceable calibration to isotope dilution-mass spectrometry. Refer to KDIGO guidelines for clinical interpretation. In patients with unstable renal function, e.g. those with acute kidney injury, the eGFR may not accurately reflect actual GFR.Performed By: #### 83477-2 ####[facility] LABIA [id number] [place] [id number] [place] OF AMERICAGlucose [Mass/Vol]162 mg/tARbiq30-80CplnkhhzaOhioHealth [facility] on above:Order Comment: Specimen Type: BLOOD SPECIMENOrdering Facility: [facility] Address:[address] [place], [place] [address]Result Comment: The [place] Diabetes Association (ADA) provides guidance for cutoff [...] Standards of Medical Care in Diabetes 2016, [place] Diabetes Association. Diabetes Care. 2016.39(Suppl 1).Performed By: #### 08439-9 ####[facility] LABCLIA [id number] [place] [address] [place] AMERICAPotassium [Moles/Vol]4.2 mmol/LNormal3.7-5.1CMercy Health St. [facility] Comment on above:Order Comment: Specimen Type: BLOOD SPECIMENOrdering Facility: [facility] Address:[address] [place] [address] Performed By: #### 53317-9 ####[facility] LABIA [id number] [place] [address] [place] Sodium [Moles/Vol]136 mmol/WUbrjml540-363TodfnmhzhOhioHealth [facility] on above:Order Comment: Specimen Type: BLOOD SPECIMENOrdering Facility: [facility] Address:[address] [place], [place] [address]Performed By: #### 85113-0 ####[facility] LABIA [id number] [place] [address] [place] AMERICAUrea nitrogen [Mass/Vol]15 mg/dLNormal9-24[facility] Clinic ClevelandComment on above:Order Comment: Specimen Type: BLOOD SPECIMENOrdering Facility: [facility] Address:[address] [place], [place] [address]Performed By: #### 65167- 2 ####[facility]ENTERIA [id number] [address]CBC panel Auto (Bld)on 09-08-2024 Erythrocyte distribution width (RBC) [Ratio]12.9 %Wdcnpe70.5-15.0[facility] HospitalComment on above:Order Comment: Specimen Type: BLOOD SPECIMENOrdering Facility: [facility] Address:[address] [place], [place] [address]Performed By: #### 51587-7 ####[facility] [id number] [address] BYRD STREETHematocrit (Bld) [Volume fraction]40.9 %Lnjzja74.0-51.0[facility] on above:Order Comment: Specimen Type: BLOOD SPECIMENOrdering Facility: [facility] Address:[address] [place], [place] [address]Performed By: #### 64168-6 ####[facility]ENTERIA [id number] [address] [place] Hemoglobin (Bld) [Mass/Vol]13.2 g/zKJmusca02.0-17.0[facility] Comment on above:Order Comment: Specimen Type: BLOOD SPECIMENOrdering Facility: [facility] Address:[address] [place] [address] Performed By: #### 93316-2 ####[facility]ENTERIA [id number] [place] [id number] [place] MCH (RBC) [Entitic mass]29.6 trUbqlsx84.0-34.0[facility] on above:Order Comment: Specimen Type: BLOOD SPECIMENOrdering Facility: [facility] Address:[address] [place], [place] [address] Performed By: #### 80859-2 ####[facility] LABIA [id number] [place] [address] [place] MCHC (RBC) [Mass/Vol]32.3 g/jRNdwqkj18.5-36.0[facility] on above:Order Comment: Specimen Type: BLOOD SPECIMENOrdering Facility: [facility] Address:[address] [place] [address] Performed By: #### 75709-1 ####[facility] LABIA [id number] [place] [address] [place] MCV (RBC) [Entitic vol]91.7 wXXdvwmg94.0-100.0[facility] on above:Order Comment: Specimen Type: BLOOD SPECIMENOrdering Facility: [facility] Address:[address] [place] [address] Performed By: #### 68113-8 ####[facility]ENTERIA [id number] [place] [address] [place] Nucleated RBC (Bld) [#/Vol]10*3/uLNormal<0.01[facility] on above:Order Comment: Specimen Type: BLOOD SPECIMENOrdering Facility: [facility] Address:[address] [place] [address] Performed By: #### 22050-2 ####[facility] LABIA [id number] [place] [address] [place] Platelet mean volume (Bld) [Entitic vol]10.6 fLNormal9.0-12.7CRiverside Methodist Hospital on above:Order Comment: Specimen Type: BLOOD SPECIMENOrdering Facility: [facility] Address:[address] [place], [place] [address]Performed By: #### 41649-7 ####[facility] LABIA [id number] [place] [address] [place] Platelets (Bld) [#/Vol]222 10*3/rJGzbgpz342-251QslndkxvsOhioHealth [facility] on above:Order Comment: Specimen Type: BLOOD SPECIMENOrdering Facility: [facility] Address:[address] [place] [address] Performed By: #### 79912-6 ####[facility] LABIA [id number] [place] [address] [place] RBC (Bld) [#/Vol]4.46 10*6/uLNormal4.20-6.00[facility] on above:Order Comment: Specimen Type: BLOOD SPECIMENOrdering Facility: [facility] Address:[address] [place], [place] [address]Performed By: #### 86186-0 ####[facility]ENTERIA [id number] [address] STATES OF GERMAN HOSPITALWBC (Bld) [#/Vol]6.50 10*3/uLNormal3.70-11.00[facility] on above:Order Comment: Specimen Type: BLOOD SPECIMENOrdering Facility: [facility] Address:[address] [place], [place] [address]Performed By: #### 00297-1 ####[facility]ENTERIA [id number] [place] [address] [place] AMERICACNCOon 85-22-1986GXRAUwigui Text NormalAvita Health System Galion HospitalECG COMPLETEon 18-08-6322HDG COMPLETENormal [facility] HospitalErythrocyte distribution width Auto (RBC) [Ratio] Ordered By: Gurpreet Pang on 09-14-5383Qxbdipipqbw distribution width (RBC) [Ratio]12.9 %11.5-15.0[facility] HospitalHISTORY PHYSICALon 45-00-3700SXFMPMI PHYSICALNormalCMercy Health St. Joseph Warren HospitalHematocrit Auto (Bld) [Volume fraction]Ordered By: Gurpreet Pang on 61-16-2526Ymupdocdsn (Bld) [Volume fraction]40.9 %39.0-51.0[facility] HospitalHemoglobin [Mass/volume] in BloodOrdered By: Gurpreet Lorie on 24-26-2598Kmfgliscys (Bld) [Mass/Vol]13.2 g/dL13.0-17.0[facility] HospitalLaboratory - Chemistry and Chemistry - challengeOrdered By: Gurpreet Pang on 09-08-2024 Calcium [Mass/Vol]9.6 mg/dL8.5-10.2FPremier Health Miami Valley Hospital SouthChloride [Moles/Vol]103 mmol/Y54-252VwxidlrwdOhiohealth Shelby HospitalCO2 [Moles/Vol]21 mmol/UZus39-11PgxdlbchxOhiohealth Shelby HospitalCreatinine [Mass/Vol]1.24 mg/dL High0.73-1.22[facility] HospitalGlucose [Mass/Vol]162 mg/dLHigh 74-99[facility] HospitalComment on above:The Chadian Diabetes Association (ADA) provides guidance for cutoff [...] diabetes.Reference: Standardsof Medical Care in Diabetes 2016, [place] Diabetes Association. Diabetes Care. 2016.39(Suppl 1). Potassium [Moles/Vol]4.2 mmol/L3.7-5.1FMount St. Mary Hospitalodium [Moles/Vol]136 mmol/U648-173AcmspbeieOhiohealth Shelby HospitalUrea nitrogen [Mass/Vol]15 mg/dL9-24[facility] HospitalLeukocytes [#/volume] corrected for nucleated erythrocytes in Blood by Automated counOrdered By: Gurpreet Pang on 01-66-0233KJK corrected for nucl RBC Auto (Bld) [#/Vol]6.50 k/uL3.70-11.00[facility] for RehabilitationH Auto (RBC) [Entitic mass] Ordered By: Gurpreet Pang on 14-03-3399PIB (RBC) [Entitic mass]29.6 pg26.0-34.0 [facility] HospitalMCHC Auto (RBC) [Mass/Vol]Ordered By: Gurpreet Pang on 29-39-4577CWPD (RBC) [Mass/Vol]32.3 g/dL30.5-36.0[facility] for RehabilitationV Auto (RBC) [Entitic vol]Ordered By: Gurpreet Pang on 71-34-8166SJF (RBC) [Entitic vol]91.7 fL80.0-100.0[facility] HospitalNo Panel InformationOrdered By: Gurpreet Pang on 86-46-2938Toulutadn GFR (CKD-EPI)58 mL/min/1.73m???Low>=60[facility] Shelby HospitalComment on above:Estimated Glomerular Filtration Rate (eGFR) is [...] Auto (Bld) [#/Vol]Ordered By: Gurpreet Pang on 81-73-3854Vsofmvshx RBC (Bld) [#/Vol] 10*3/uL<0.01[facility] HospitalPlatelet mean volume Auto (Bld) [Entitic vol]Ordered By: Gurpreet Pang on 25-14-8591Znjwxvnu mean volume (Bld) [Entitic vol]10.6 fL9.0-12.7FPremier Health Miami Valley Hospital SouthPlatelets Auto (Bld) [#/Vol]Ordered By: Gurpreet Pang on 29-05-3950Xnpvbvypp (Bld) [#/Vol]222 10*3/mQ942-788SlnfrfyrfOhiohealth Shelby HospitalRBC Auto (Bld) [#/Vol]Ordered By: Gurpreet Pang on 84-92-9026LAV (Bld) [#/Vol]4.46 10*6/uL4.20-6.00[facility] County Hospitalerum or plasma anion gap determinationOrdered By: Gurpreet Lorie on 97-25-8343Ryjvn gap [Moles/Vol]12 mmol/L8-15[facility] HospitalXR CHEST 2V FRONTAL/LATon 68-43-3620SP CHEST 2V FRONTAL/LATNormal [facility] HospitalXR Chest PA and Lateralon 28-00-8312VYGTCKLFRK: MILD BIBASILAR ATELECTASIS/INFILTRATE, NEW SINCE 05/22/2017. Quality Control Director: PSCB Transcribe Date/Time: Sep 08 2024 5:49P Dictated by : SILVIA COHN MD This examination was interpreted and the report reviewed and electronically signed by: SILVIA COHN MD on Sep 08 2024 5:50PM [facility] DIVISION OF RADIOLOGY* * *Final [...] visualized right proximal humerus. DIVISION OF RADIOLOGYProvider, [facility] - 09/08/2024 * * *Final Report* * [...] IMPRESSION: MILD BIBASILAR ATELECTASIS/INFILTRATE, NEW SINCE 05/22/2017. Quality Control Director: CONRO Transcribe Date/Time: Sep 08 2024 5:49P Dictated by : SILVIA COHN MD This examination was interpreted and the report reviewed and electronically signed by: SILVIA COHN MD on Sep 08 2024 5:50PM [facility] CampusRadiology Study observation (narrative)[facility] HospitalXR Chest PA and LateralOrdered By: Ccf Provider on 12-12-1967Hwntrdltb ClinicCNPNon 60-48-1166ENPFOuxrsqHxlcafuyy Clinic ClevelandCNOVon 58-66-9373LOWAQmfrbm [facility] HospitalCNPNon 62-49-7644YXFILnbxfzBjmptsjlj [facility] ALBUMIN/CREATININE RATIO, URINEon 26-34-0821Ddruysh DL <= 20 mg/L (U) [Mass/Vol] 191.5 mg/LNormalOhioHealth [facility] on above:Order Comment: Specimen Type: URINE SPECIMENOrdering Facility: Dr Mishel Linares Office Address:[address] [place], [place] [address]Performed By: #### UACR ####[facility] LABCLIA [id number] OF GERMAN HOSPITALAlbumin/Creatinine (U) [Mass ratio] 127 mg/gHigh<30[facility] on above:Order Comment: Specimen Type: URINE SPECIMENOrdering Facility: Dr Mishel Linares Office Address:[address] [place], [place] [address]Result Comment: Adult Male and Female Nephrotic Criteria:<30 mg/g is considered normal to ybblsffljiqfovu81-700 mg/g is considered moderately increased>300 mg/g is considered severely increasedKDIGO. (2013). KDIGO 2012 Clinical Practice Guideline for the Evaluation and Management of Chronic Kidney Disease. Official Journal of the International Society of Nephrology, 3(1), 1-150.Performed By: #### UACR ####[facility] LABCLIA [id number] [place] [address] [place] AMERICACreatinine (U) [Mass/Vol]150.6 mg/wOLbxlnm79.0-300.0[facility] on above:Order Comment: Specimen Type: URINE SPECIMENOrdering Facility: Dr Clark and Dr Linares Office Address:[address] [place], [place] [address]Performed By: #### UACR ####[facility] LABIA [id number] [place] [address] [place] AMERICAAlbumin [Mass/volume] in Serum or Plasmaon 93-01-8252Rvzytwa [Mass/Vol]3.49 g/dL3.43-5.41Ohio[facility] Shelby HospitalB2 Microglob SerPl-mCncon 05-94-5660Rlhn-2-Microglobulin [Mass/Vol]4.5 ug/mLHigh<3.1CRiverside Methodist Hospital on above:Order Comment: Specimen Type: BLOOD SPECIMENOrdering Facility: [facility] Address:[address] [place], [place] [address]Result Comment: Beta-2 Microglobulin test is performed using the [employer] immunoturbidimetric method. Results obtained with different methods or kits cannot be used interchangeably.Performed By: #### 2885-2, 1951-03 ####[facility] LABCLIA [id number] [place] [address] [place] AMERICABasophils Auto (Bld) [#/Vol]on 24-28-3476Rbgszwshx (Bld) [#/Vol]10*3/uL<0.11[facility] HospitalBasophils/100 WBC Auto (Bld) on 58-85-9922Bdootuxxl/100 WBC (Bld)0.4 %[facility] HospitalBlood manual differential comment interpretation narrativeon 84-21-4618Ejnmqm differential comment Augie (Bld) [Interp]AutoOhiohealth Shelby HospitalCBC W Auto Differential panel (Bld)on 28-14-9122Yiwjyalyb (Bld) [#/Vol]10*3/uLNormal <0.11CRiverside Methodist Hospital on above:Order Comment: Specimen Type: BLOOD SPECIMENOrdering Facility: [facility] Address:[address] [place], [place] [address]Performed By: #### 65190-1 ####[facility] LABCLIA [id number] [place] [address] Basophils/100 WBC (Bld)0.4 %NormalOhioHealth Arthur G.[facility]. [facility], [facility], Cancer Center on above: Order Comment: Specimen Type: BLOOD SPECIMENOrdering Facility: [facility] Address:[address] [place], [place] [address]Performed By: #### 97992- 8 ####[facility] LABCLIA [id number] [place], [place] [address]Gpdqsegjhfjk cell count method Nom (Bld)AutoNormal [facility] on above:Order Comment: Specimen Type: BLOOD SPECIMENOrdering Facility: [facility] Address:[address] [place], [place] [address]Performed By: #### 83223-3 ####[facility] LABIA [id number] [place], [place] [address]Tnuatdtudvz (Bld) [#/Vol]0.11 10*3/uLNormal<0.46[facility] on above: Order Comment: Specimen Type: BLOOD SPECIMENOrdering Facility: [facility] Address:[address] [place], [place] [address]Performed By: #### 27240- 8 ####[facility] LABCLIA [id number] [place], [place] [address]Jmrylqcjxah/100 WBC (Bld)1.9 %NormalOhioHealth Arthur G.[facility]. [facility], [facility], [facility] Center on above:Order Comment: Specimen Type: BLOOD SPECIMENOrdering Facility: [facility] Address:[address] [place], [place] [address]Performed By: #### 84017-4 ####[facility] LABIA [id number] [place], [place] [address]Nvvhcnstnbj distribution width (RBC) [Ratio]12.6 %Yzhvov31.5-15.0[facility] on above: Order Comment: Specimen Type: BLOOD SPECIMENOrdering Facility: [facility] Address:[address] [place], [place] [address]Performed By: #### 79590- 8 ####[facility] LABIA [id number] [place], [place] [address]Nqoitjepwe (Bld) [Volume fraction]39.4 %Ewtmkq66.0-51.0 [facility] on above:Order Comment: Specimen Type: BLOOD SPECIMENOrdering Facility: [facility] Address:[address] [place], [place] [address]Performed By: #### 02995-0 ####[facility] LABIA [id number] [place], [place] [address]Rwlntumbyt (Bld) [Mass/Vol]13.2 g/zJXehvvr00.0-17.0[facility] on above: Order Comment: Specimen Type: BLOOD SPECIMENOrdering Facility: [facility] Address:[address] [place], [place] [address]Performed By: #### 66627- 8 ####[facility] LABIA [id number] [place], [place] [address]Mpvesryr granulocytes (Bld) [#/Vol]10*3/uLNormal<0.10 [facility] on above:Order Comment: Specimen Type: BLOOD SPECIMENOrdering Facility: [facility] Address:[address] [place], [place] [address]Performed By: #### 74690-6 ####[facility] LABCLIA [id number] [place], [place] [address]Dsepgzyb granulocytes/100 WBC (Bld)0.2 %[facility] on above: Order Comment: Specimen Type: BLOOD SPECIMENOrdering Facility: [facility] Address:[address] [place], [place] [address]Performed By: #### 79948- 8 ####[facility] LABCLIA [id number] [place], [place] [address]Jkcmilabgvp (Bld) [#/Vol]1.56 10*3/uLNormal1.00-4.00 [facility] on above:Order Comment: Specimen Type: BLOOD SPECIMENOrdering Facility: [facility] Address:[address] [place], [place] [address]Performed By: #### 52798-5 ####[facility] LABCLIA [id number] [place], [place] [address]Yupypugvkzv/100 WBC (Bld)27.6 %NormalOhioHealth Arthur G.H. Bing, [facility], Cancer Center on above:Order Comment: Specimen Type: BLOOD SPECIMENOrdering Facility: [facility] Address:[address] [place], [place] [address]Performed By: #### 57800-6 ####[facility] LABCLIA [id number] [place], [place] [address]KBP (RBC) [Entitic mass]30.6 itLvcytd55.0-34.0[facility] on above:Order Comment: Specimen Type: BLOOD SPECIMENOrdering Facility: [facility] Address:[address] [place], [place] [address]Performed By: #### 32633-5 ####[facility] LABCLIA [id number] [place], [place] [address]IOVF (RBC) [Mass/Vol]33.5 g/sDNrwuts06.5-36.0[facility] on above: Order Comment: Specimen Type: BLOOD SPECIMENOrdering Facility: [facility] Address:[address] [place], [place] [address]Performed By: #### 60200- 8 ####[facility] LABCLIA [id number] [place], [place] [address]DIU (RBC) [Entitic vol]91.4 mZBqdqcr97.0-100.0[facility] on above:Order Comment: Specimen Type: BLOOD SPECIMENOrdering Facility: [facility] Address:[address] [place], [place] [address]Performed By: #### [id number] ####[facility] LABIA [id number] [place], [place] [address]Onoyvkszx (Bld) [#/Vol]0.64 10*3/uLNormal<0.87[facility] on above:Order Comment: Specimen Type: BLOOD SPECIMENOrdering Facility: [facility] [facility] Address:[address] [place], [place] [address]Performed By: #### 30612- 8 ####[facility] LABCLIA [id number] [place], [place] [address]Cdnbxzokq/100 WBC (Bld)11.3 %NormalOhioHealth [facility] on above:Order Comment: Specimen Type: BLOOD SPECIMENOrdering Facility: [facility] Address:[address] [place], [place] [address]Performed By: #### 83147-3 ####[facility] LABIA [id number] [place], [place] [address]Svpsqtostcj (Bld) [#/Vol]3.32 10*3/uLNormal1.45-7.50[facility] on above:Order Comment: Specimen Type: BLOOD SPECIMENOrdering Facility: [facility] Address:[address] [place], [place] [address]Performed By: #### 60672-8 ####[facility] LABCLIA [id number] [place], [place] [address]Igmdrgbkgxz/100 WBC (Bld)58.6 %NormalOhioHealth [facility] on above:Order Comment: Specimen Type: BLOOD SPECIMENOrdering Facility: [facility] Address:[address] [place], [place] [address]Performed By: #### 24719-8 ####[facility] LABCLIA [id number] [place], [place] [address]Ykkeyrvuh RBC (Bld) [#/Vol] 10*3/uLNormal<0.01[facility] on above:Order Comment: Specimen Type: BLOOD SPECIMENOrdering Facility: [facility] Address:[address] [place], [place] [address]Performed By: #### 74712-8 ####[facility] LABCLIA [id number] [place], [place] [address]Udgwhzjfh RBC/100 WBC (Bld) [Ratio]0.0 /100 WBCNormal [facility] on above:Order Comment: Specimen Type: BLOOD SPECIMENOrdering Facility: [facility] Address:[address] [place], [place] [address]Performed By: #### 88239-8 ####[facility] LABCLIA [id number] [place], [place] [address]Yctjspxi mean volume (Bld) [Entitic vol]9.6 fLNormal9.0-12.7CRiverside Methodist Hospital on above:Order Comment: Specimen Type: BLOOD SPECIMENOrdering Facility: [facility] Address:[address] [place] [address] Performed By: #### 56429-0 ####[facility] LABCLIA [id number] [place], [place] [address]Ozitrapbi (Bld) [#/Vol]201 10*3/mXRqoyfw111-337NmwvzvkyyOhioHealth [facility] on above:Order Comment: Specimen Type: BLOOD SPECIMENOrdering Facility: [facility] Address:[address] [place], [place] [address]Performed By: #### 87097-5 ####[facility] LABCLIA [id number] [place], [place] [address]EBX (Bld) [#/Vol]4.31 10*6/uLNormal4.20-6.00[facility] on above:Order Comment: Specimen Type: BLOOD SPECIMENOrdering Facility: [facility] Address:[address] [place], [place] [address]Performed By: #### 39005-6 ####[facility] LABIA [id number] [place], [place] [address]OZW (Bld) [#/Vol]5.66 10*3/uLNormal3.70-11.00[facility] on above: Order Comment: Specimen Type: BLOOD SPECIMENOrdering Facility: [facility] Address:[address] [place], [place] [address]Performed By: #### 82834- 8 ####[facility] LABIA [id number] [place], [place] [address]HTLPai 58-58-1548NAQWGshggwXxacatmpr Clinic [facility] CNOVSPon 71-75-8418KRKWTJBmmthvHuhsozpsv Clinic ClevelandCalcium.ionized [Moles/Vol]on 30-06-8523Ybaeqrn.ionized (Bld) [Mass/Vol]1.27 mmol/LNormal 1.08-1.30[facility] on above:Order Comment: Specimen Type: BLOOD SPECIMENOrdering Facility: [facility] Address:[address] [place], [place] [address]Performed By: #### 1995-0 ####[facility] LABCLIA [id number] [facility] CENTERNTQVPKUUQIM09[place], [place] [address] [place] AMERICACalcium.ionized adjusted to pH 7.4 (Bld) [Moles/Vol]1.24 mmol/LNormal1.08-1.30[facility] on above:Order Comment: Specimen Type: BLOOD SPECIMENOrdering Facility: [facility] Address:[address] [place], [place] [address]Performed By: #### 1994-0 ####[facility] LABCLIA [id number] [facility] [id number] [place], [place] [address] [place] OF AMERICAComprehensive metabolic 2000 panelon 44-17-3506Jirpqsf [Mass/Vol]3.7 g/dLLow3.9-4.9CMercy Health [facility] Comment on above:Order Comment: Specimen Type: BLOOD SPECIMENOrdering Facility: [facility] Address:[address] [place] [address] Performed By: #### 2777-1, 34610-6, 3084-1, 2532-0 ####[facility] LABCLIA [id number] [place], [place] [address]TWP [Catalytic activity/Vol]99 U/DWmvgzi98-003RvdnxonbfOhioHealth [facility] on above:Order Comment: Specimen Type: BLOOD SPECIMENOrdering Facility: [facility] Address:[address] [place], [place] [address]Performed By: #### 2777-1, 62214-8, 3084-1, 2532-0 ####[facility] LABCLIA [id number] [place], [place] [address]KNF [Catalytic activity/Vol]13 U/WIowjsh40-55VwwhmapbcOhioHealth [facility] on above:Order Comment: Specimen Type: BLOOD SPECIMENOrdering Facility: [facility] Address:[address] [place], [place] [address]Performed By: #### 2777-1, 10770-7, 3084-1, 2532- 0 ####[facility] LABCLIA [id number] [place], [place] [address]Drwrc gap [Moles/Vol]8 mmol/LNormal8-15[facility] on above:Order Comment: Specimen Type: BLOOD SPECIMENOrdering Facility: [facility] Address:[address] [place], [place] [address]Performed By: #### 2777-1, 10484-4, 3084-1, 2532-0 ####[facility] LABCLIA [id number] [place], [place] [address]HKH [Catalytic activity/Vol]19 U/DGjnubm64-30FdgssdgedOhioHealth [facility] on above:Order Comment: Specimen Type: BLOOD SPECIMENOrdering Facility: [facility] Address:[address] [place], [place] [address]Performed By: #### 2777-1, 02380-7, 3084-1, 2532-0 ####[facility] LABCLIA [id number] [place], [place] [address]Rnrdnkjry [Mass/Vol]0.3 mg/dL Normal0.2-1.3CRiverside Methodist Hospital on above:Order Comment: Specimen Type: BLOOD SPECIMENOrdering Facility: [facility] Address:[address] [place], [place] [address]Performed By: #### 2777-1, 64052-5, 3084-1, 2532- 0 ####[facility] LABCLIA [id number] [place], [place] [address]Rgwihqq [Mass/Vol]9.5 mg/dLNormal8.5-10.2CRiverside Methodist Hospital on above:Order Comment: Specimen Type: BLOOD SPECIMENOrdering Facility: [facility] Address:[address] [place], [place] [address]Performed By: #### 2777-1, 23796-9, 3084-1, 2532-0 ####[facility] LABCLIA [id number] [place], [place] [address]Ktxlferm [Moles/Vol]101 mmol/YLeamir01-418FpsexxceyOhioHealth [facility] on above: Order Comment: Specimen Type: BLOOD SPECIMENOrdering Facility: [facility] Address:[address] [place] [address]kjomkfv By: #### 2777- 1, 05461-3, 3084-1, 2532-0 ####[facility] LABCLIA [id number] [place], [place] [address]QU9 [Moles/Vol]25 mmol/LNormal 22-30[facility] on above:Order Comment: Specimen Type: BLOOD SPECIMENOrdering Facility: [facility] Address:[address] [place], [place] [address]Performed By: #### 2777-1, 32858-7, 3084-1, 2532-0 ####[facility] LABCLIA [id number] [place], [place] [address]Vxykgaivhh [Mass/Vol]1.15 mg/dLNormal0.73-1.22[facility] on above:Order Comment: Specimen Type: BLOOD SPECIMENOrdering Facility: [facility] Address:[address] [place], [place] [address]Performed By: #### 2777-1, 54793-1, 3084-1, 2532-0 ####[facility] LABCLIA [id number] [place], [place] [address]Sccaxlqseu and Glomerular filtration rate.predicted panel (S/P/Bld)63 mL/min/1.73m???Normal>=60[facility] on above:Order Comment: Specimen Type: BLOOD SPECIMENOrdering Facility: [facility] Address:[address] [place], [place] [address]Result Comment: Estimated Glomerular Filtration Rate (eGFR) is [...] accurately reflect actual GFR.Performed By: #### 2777-1, 05897-7, 3083-03, 0 ####[facility] LABCLIA [id number] [place], [place] [address]Fynmegx [Mass/Vol]279 mg/lVOzpk12-15 [facility] on above:Order Comment: Specimen Type: BLOOD SPECIMENOrdering Facility: [facility] Address:[address] [place] [address]Jrhmre Comment: The [place] Diabetes Association (ADA) provides guidance for cutoff [...] Standards of Medical Care in Diabetes 2016, [place] Diabetes Association. Diabetes Care. 2016.39(Suppl 1).Performed By: #### 2777-1, 04122-0, 3083-03, ####[facility] LABCLIA [id number] [place], [place] [address]Ftjzqwoep [Moles/Vol]4.2 mmol/L Normal3.7-5.1CRiverside Methodist Hospital on above:Order Comment: Specimen Type: BLOOD SPECIMENOrdering Facility: [facility] Address:[address] [place], [place] [address]Nzbupblxq By: #### 2777-1, 14946-8, 3083-03, 0 ####[facility] LABCLIA [id number] [place], [place] [address]Pzanbjy [Mass/Vol]6.6 g/dLNormal6.3-8.0[facility] on above:Order Comment: Specimen Type: BLOOD SPECIMENOrdering Facility: [facility] Address:[address] [place], [place] [address]Performed By: #### 2777-1, 42070-8, 3084-1, 2532-0 ####[facility] LABCLIA [id number] [place], [place] [address]Wqekwi [Moles/Vol]134 mmol/ZYxb745-980LdljhlnjyOhioHealth [facility] on above:Order Comment: Specimen Type: BLOOD SPECIMENOrdering Facility: [facility] Address:[address] [place], [place] [address]Performed By: #### 2777- 1, 59224-6, 3084-1, 2532-0 ####[facility] LABCLIA [id number] [place], [place] [address]Fptf nitrogen [Mass/Vol]15 mg/dL Normal9-24[facility] on above:Order Comment: Specimen Type: BLOOD SPECIMENOrdering Facility: [facility] Address:[address] [place], [place] [address]Performed By: #### 2777-1, 42247-5, 3084-1, 2532- 0 ####[facility] LABCLIA [id number] [place], [place] [address]Xjtozwwzens/100 WBC Auto (Bld)on 08-19-2024 Eosinophils/100 WBC (Bld)1.9 %[facility] Shelby HospitalErythrocyte distribution width Auto (RBC) [Ratio]on 13-44-0473Xtsuuxxmhqn distribution width (RBC) [Ratio]12.6 %11.5-15.0[facility] Shelby HospitalGlucose mean value [Mass/volume] in Blood Estimated from glycated hemoglobinon 16-47-3143Wifcayu glucose Estimated from glycated hemoglobin (Bld) [Mass/Vol]169 mg/dLOhiohealth Shelby HospitalComment on above:eAG: (Estimated average glucose) is a calculated value from HgbA1c and is community health program representative of the average blood glucose level in the last 2-3 month period.HbA1c (Bld)on 97-01-8681Dfqgvyv glucose Estimated from glycated hemoglobin (Bld) [Mass/Vol]169 mg/dLNoHolmes County Joel [facility] on above:Order Comment: Specimen Type: BLOOD SPECIMENOrdering Facility: Dr Clark and Dr Linares Office Address:[address] [place] [address] Comment: eAG: (Estimated average glucose) is a calculated value from HgbA1c and is community health program representative of the average blood glucose level in the last 2-3 month period.Performed By: #### 46462-7 ####[facility] [id number] [address] STATES OF XXTTZVWAfY8t (Bld) [Mass fraction]7.5 %High4.3-5.6 [facility] on above:Order Comment: Specimen Type: BLOOD SPECIMENOrdering Facility: Dr Mishel Linares Office Address:[address] [place] [address] Comment: [place] Diabetes Association guidelines indicate that patients with HgbA1c in the range 5.7-6.4% are at increased risk for development of diabetes, and intervention by lifestyle modif ication may be beneficial. HgbA1c greater or equal to 6.5% is considered diagnostic of diabetes.Performed By: #### 15013-8 ####[facility] LABIA [id number] [place] [id number] [place] OF AMERICAHematocrit Auto (Bld) [Volume fraction]on 43-68-3269Frertejssq (Bld) [Volume fraction]39.4 %39.0-51.0[facility] Hemoglobin A1c percentageon 60-20-5683EdV0s (Bld) [Mass fraction]7.5 %High 4.3-5.6FPremier Health Miami Valley Hospital SouthComment on above:[place] Diabetes Association guidelines indicate that patients with HgbA1c in the range 5.7-6.4% are at increased risk for development of diabetes, and intervention by lifestyle modification may be beneficial. HgbA1c greater or equal to 6.5% is considered diagnostic of diabetes.Hemoglobin [Mass/volume] in Bloodon 05-48-9245Rzrsvokqcp (Bld) [Mass/Vol]13.2 g/dL13.0-17.0[facility] IMMUNOFIXATION SCREEN, SERUMon 92-85-4623JSSBDNJFSBPDGZ (MPA)Atypical restricted bands are present in the IgG and kappa regions. Consistent with IgG kappa monoclonal gammopathy.NormalOhioHealth [facility] on above:Order Comment: Specimen Type: BLOOD SPECIMENOrdering Facility: [facility] Address:[address] [place], [place] [address]Performed By: #### IFESC ####[facility] LABCLIA [id number] [facility] [place] [address] [place] AMERICAMPA RESULTM protein is present. AbnormalNo M protein is identified.[facility] on above: Order Comment: Specimen Type: BLOOD SPECIMENOrdering Facility: [facility] Address:[address] [place], [place] [address]Performed By: #### IFESC ####[facility] LABCLIA [id number] [place] [address] [place] OF AMERICASTAFF REVIEW (MPA)Reviewed by Kira Reyes MDNormalCRiverside Methodist Hospital on above:Order Comment: Specimen Type: BLOOD SPECIMENOrdering Facility: [facility] Address:[address] [place], [place] [address]Performed By: #### IFESC ####[facility] LABCLIA [id number] [facility]ALK L [address] [place] [address] [place] AMERICAIMMUNOGLOBULINS,IGG,IGA,IGMon 28-04-5179PeD [Mass/Vol]257 mg/oBJugdby33-151JbwqeqcngOhioHealth [facility] on above:Order Comment: Specimen Type: BLOOD SPECIMENOrdering Facility: [facility] Address:[address] [place] [address] Performed By: #### SERIMM ####[facility] LABCLIA [id number] [place] [address] [place]IDY IgG [Mass/Vol]1463 mg/qBRortte877-1066RynfpiqxdAvita Health System Galion HospitalComascension providence hospital on above:Order Comment: Specimen Type: BLOOD SPECIMENOrdering Facility: [facility] Address:[address] [place], [place] [address]Performed By: #### SERIMM ####[facility] LABCLIA [id number] [place] [address] [place] AMERICAIgM [Mass/Vol]303 mg/dL Pyvx15-536PbgqdvurtAvita Health System Galion HospitalComascension providence hospital on above:Order Comment: Specimen Type: BLOOD SPECIMENOrdering Facility: [facility] Address:[address] [place], [place] [address]Performed By: #### SERIMM ####[facility] LABCLIA [id number] [place] [address] [place] AMERICAIgA [Mass/volume] in Serum or Plasmaon 73-52-9335SlY [Mass/Vol]257 mg/dD08-124WmhntdqpiOhiohealth Shelby HospitalIgG [Mass/volume] in Serum or Plasmaon 41-06-9868JpA [Mass/Vol]1463 mg/lL835-7641FbrqyiapjOhiohealth Shelby HospitalIgM [Mass/volume] in Serum or Plasmaon 35-46-4006EuM [Mass/Vol]303 mg/cTNbaf80-991JxxijtaeqOhiohealth Shelby HospitalImmunoglobulin light chains.kappa.free [Mass/volume] in Serumon 76-23-2995Ggkicnymmtlice light chains.kappa.free (S) [Mass/Vol]182.3 mg/LHigh3.3-19.4FPremier Health Miami Valley Hospital SouthComment on above:Rarely, increased serum free light chains levels may not be detected or accurately quantified due to prozone phenomenon or in high viscosity samples using this immunoturbidimetric assay. Correlation with other laboratory results and clinical findings is recommended. The [place] Free Light Chain was performed using the Binding Site Optilite immunoturbidimetric method. Result obtained with different assay methods or kits cannot be used interchangeably.Immunoglobulin light chains.kappa.free/Immunoglobulin light chains.lambda.free [Bowen 00-06-1038Rrhsyriekexwjp light chains.kappa.free/Immunoglobulin light chains.lambda.free (S) [Mass ratio]3.45 High0.26-1.65Ohio[facility] Shelby HospitalImmunoglobulin light chains.lambda.free [Mass/volume] in Serum or Plasmaon 85-27-0906Byzbnxruwgokzi light chains.lambda.free [Mass/Vol]52.9 mg/LHigh5.7-26.3FPremier Health Miami Valley Hospital SouthComment on above:Rarely, increased serum free light chains levels may not be detected or accurately quantified due to prozone phenomenon or in high viscosity samples using this immunoturbidimetric assay. Correlation with other laboratory results and clinical findings is recommended. The [place] Free Light Chain was performed using the Binding Site Optilite immunoturbidimetric method. Result obtained with differentassay methods or kits cannot be used interchangeably.KAPPA/COTA,FREE,SERon 85-42-5350Utwamfzfwwikmk light chains.kappa.free (S) [Mass/Vol]182.3 mg/LHigh3.3-19.4CMercy Health St[facility] Comment on above:Order Comment: Specimen Type: BLOOD SPECIMENOrdering Facility: [facility] Address:[address] [place], [place] [address]Result Comment: Rarely, increased serum free light chains levels may not be detected or accurately quantified due to prozone phenomenon or in high viscosity samples using this immunoturbidimetric assay. Correlation with other laboratory results and clinical findings is recommended.The [place] Free Light Chain was performed using the Binding Site Optilite immunoturbidimetric method. Result obtained with different assay methods or kits cannot be used interchangeably.Performed By: #### KLFRS ####[facility] LABCLIA [id number] [facility] [id number] [place] [address] [place] [facility]MAN HOSPITALImmunoglobulin light chains.kappa/Immunoglobulin light chains.lambda (S) [Mass ratio]3.45High 0.26-1.65Av[facility] System Galion HospitalComment on above:Order Comment: Specimen Type: BLOOD SPECIMENOrdering Facility: [facility] Address:[address] [place], [place] [address]Performed By: #### KLFRS ####[facility] LABCLIA [id number] [place] [address] [place] AMERICAImmunoglobulin light chains.lambda.free [Mass/Vol]52.9 mg/LHigh5.7-26.3CRiverside Methodist Hospital on above:Order Comment: Specimen Type: BLOOD SPECIMENOrdering Facility: [facility] Address:[address] [place], [place] [address]Result Comment: Rarely, increased serum free light chains [...] cannot be used interchangeably.Performed By: #### KLFRS ####[facility] LABCLIA [id number] [place] [address] [place] AMERICALDH SerPl-cCncon 15-96-2568LTJ [Catalytic activity/Vol]140 U/QQrgnjp566-031QdepbmmwiOhioHealth [facility] on above:Order Comment: Specimen Type: BLOOD SPECIMENOrdering Facility: [facility] Address:[address] [place], [place] [address]Result Comment: Hemolysis present. The origin of the hemolysis, in vitro versus an in vivo hemolytic process, cannot be distinguished via this assay alone. In vitro hemolysis may lead to non-physiological (spurious) elevation in lactate dehydrogenase (LDH) results. Theresult should be interpreted in context of the clinical setting and other test results. Suggest reorder as clinically indicated.Performed By: #### 2777-1, 43726-3, 3084-1, 2532-0 ####[facility] LABCLIA [id number] [place], [place] [address]Lsqkxghidu - Chemistry and Chemistry - challengeon 14-09-5750Polducv [Mass/Vol]3.7 g/dLLow3.9-4.9Ohio[facility] HospitalALP [Catalytic activity/Vol]99 U/L80-097StdcfbljsOhiohealth Shelby HospitalALT [Catalytic activity/Vol]13 U/E26-34VnacabibyOhiohealth Shelby HospitalAST [Catalytic activity/Vol]19 U/X88-97LgzraxvbbOhiohealth Shelby HospitalBilirubin [Mass/Vol]0.3 mg/dL0.2-1.3FPremier Health Miami Valley Hospital SouthCalcium [Mass/Vol]9.5 mg/dL 8.5-10.2FPremier Health Miami Valley Hospital SouthChloride [Moles/Vol]101 mmol/L98-107 [facility] HospitalCO2 [Moles/Vol]25 mmol/U08-67OuuvmxattOhiohealth Shelby HospitalCreatinine [Mass/Vol]1.15 mg/dL0.73-1.22[facility] HospitalGlucose [Mass/Vol]279 mg/xKXeun46-32RvamrnruyOhiohealth Shelby HospitalComment on above:The [place] Diabetes Association (ADA) provides guidance for cutoff [...] diabetes.Reference: Standardsof Medical Care in Diabetes 2016, [place] Diabetes Association. Diabetes Care. 2016.39(Suppl 1).LDH [Catalytic activity/Vol]140 U/N244-467CodpqbqnzOhiohealth Shelby HospitalComment on above:Hemolysis present. The origin of the hemolysis, in vitro versus an in vivo hemolytic process, cannot be distinguished via this assay alone. In vitro hemolysis may lead to non-physiological (spurious)elevation in lactate dehydrogenase (LDH) results. The result should be interpreted in context of the clinical setting and other test results. Suggest reorder as clinically indicated.Potassium [Moles/Vol]4.2 mmol/L3.7-5.1FPremier Health Miami Valley Hospital SouthProtein [Mass/Vol]0.61 g/dLHigh <=0.00Morrow County Hospitalodium [Moles/Vol]134 mmol/HKib725-907 [facility] HospitalUrate [Mass/Vol]4.6 mg/dL4.0-8.1FPremier Health Miami Valley Hospital SouthUrea nitrogen [Mass/Vol]15 mg/dL9-24[facility] HospitalLaboratory - Hematology and Cell countson 87-10-6608Scxdsnsxxaa (Bld) [#/Vol]0.11 10*3/uL<0.46Ohio[facility] HospitalImmature granulocytes/100 WBC (Bld)0.2 %[facility] Shelby HospitalLeukocytes [#/volume] corrected for nucleated erythrocytes in Blood by Automated counon 33-01-5140DAM corrected for nucl RBC Auto (Bld) [#/Vol]5.66 k/uL3.70-11.00 [facility] Shelby HospitalLymphocytes Auto (Bld) [#/Vol]on 08-19-2024 Lymphocytes (Bld) [#/Vol]1.56 10*3/uL1.00-4.00[facility] Lymphocytes/100 WBC Auto (Bld)on 80-02-6613Jrmgpfoqwut/100 WBC (Bld)27.6 % [facility] for RehabilitationH Auto (RBC) [Entitic mass]on 73-77-9323GGI (RBC) [Entitic mass]30.6 pg26.0-34.0[facility] HospitalMCHC Auto (RBC) [Mass/Vol]on 11-63-3856ZDEW (RBC) [Mass/Vol]33.5 g/dL30.5-36.0[facility] HospitalMCV Auto (RBC) [Entitic vol]on 08-01-5516VUQ (RBC) [Entitic vol]91.4 fL80.0-100.0[facility] HospitalMonocytes Auto (Bld) [#/Vol]on 01-98-1144Adqifguac (Bld) [#/Vol]0.64 10*3/uL<0.87[facility] HospitalMonocytes/100 WBC Auto (Bld)on 14-63-8061Azgnhwxys/100 WBC (Bld)11.3 %[facility] Shelby HospitalNeutrophils Auto (Bld) [#/Vol]on 95-88-7395Tlmixddpjaw (Bld) [#/Vol]3.32 10*3/uL1.45-7.50[facility] Shelby HospitalNeutrophils/100 WBC Auto (Bld)on 13-69-2755Xpxkalaiame/100 WBC (Bld)58.6 %[facility] HospitalNo Panel Informationon 08-19-2024 Urine Albumin/Creatinine Jcoii135 mg/gHigh<30[facility] Comment on above:Adult Male and Female Nephrotic Criteria:<30 mg/g is considered normal to mildly pdkykzpym29-266yd/g is considered moderately increased>300 mg/g is considered severely increasedKDIGO. (2013). KDIGO 2012 Clinical Practice Guideline for the Evaluation and Management of Chronic Kidney Disease. Official Journal of the International Society of Nephrology, 3(1), 1-150.Urine Microalbumin mg/dl191.5 mg/LFPremier Health Miami Valley Hospital SouthUrine Random Iqalhwxxfz995.6 mg/dL20.0-300.0[facility] Shelby HospitalEstimated GFR (CKD-EPI)63 mL/min/1.73m???>=60[facility] HospitalComment on above:Estimated Glomerular Filtration Rate (eGFR) is [...] accurately reflect actual GFR.Immature Granulocyte # (Auto)<0.03 k/uL<0.10[facility] Immunofixation InterpretationOhiohealth Shelby HospitalIonized Calcium (pH Adjusted)1.24 mmol/L1.08-1.30[facility] Shelby HospitalLeuk/Lymph Sign Pathologist (Misc)Reviewed by Kira Reyes MDOhiohealth Shelby HospitalMiscellaneous Test 6Gamma Fraction 1FPremier Health Miami Valley Hospital South Miscellaneous Test CommentReviewed by Flavio Garcia MD, Ph.D ([id number])[facility] HospitalPhosphorus Level3.0 mg/dL2.7-4.8[facility] Shelby HospitalProtein Electrophoresis InterpretOhiohealth Shelby Hospital Protein Electrophoresis NoteAn M protein is identified on protein electrophoresis.AbnormalNo definitive M protein is identified on protein electrophoresis.[facility] Hospitalerum ImmunofixationM protein is present.AbnormalNo M protein is identified.[facility] Nucleated RBC Auto (Bld) [#/Vol]on 72-41-7956Nppedeohx RBC (Bld) [#/Vol]10*3/uL <0.01[facility] Shelby HospitalNucleated erythrocytes [Presence] in Blood by Automated counton 21-70-7069Cuyhkanam RBC Auto Ql (Bld)0.0 /100{WBC} [facility] Shelby HospitalPROTEIN ELECTROPHORESIS SERUM (P)on 08-19-2024 Albumin [Mass/Vol]3.49 g/dLNormal3.43-5.41[facility] on above:Order Comment: Specimen Type: BLOOD SPECIMENOrdering Facility: [facility] Address:[address] [place], [place] [address]Performed By: #### [id number] ####[facility] LABIA [id number] [address] STATES OF AMERICAAlpha 1 globulin Elph [Mass/Vol]0.27 g/dLNormal0.18-0.43[facility] on above: Order Comment: Specimen Type: BLOOD SPECIMENOrdering Facility: [facility] Address:[address] [place], [place] [address]Performed By: #### [id number] ####[facility] LABCLIA [id number] [address] STATES OF AMERICAAlpha 2 globulin Elph [Mass/Vol]0.82 g/dLNormal0.42-0.98[facility] on above: Order Comment: Specimen Type: BLOOD SPECIMENOrdering Facility: [facility] Address:[address] [place], [place] [address]Performed By: #### [id number] ####[facility] LABCLIA [id number] [place] [address] [place] OF AMERICABeta globulin Elph [Mass/Vol]0.82 g/dLNormal0.61-1.17[facility] on above: Order Comment: Specimen Type: BLOOD SPECIMENOrdering Facility: [facility] Address:[address] [place], [place] [address]Performed By: #### [id number] ####[facility] LABCLIA [id number] [place] [address] [place] OF AMERICAGamma globulin Elph [Mass/Vol]1.40 g/dLNormal0.53-1.51[facility] on above: Order Comment: Specimen Type: BLOOD SPECIMENOrdering Facility: [facility] Address:[address] [place], [place] [address]Performed By: #### [id number] ####[facility] LABCLIA [id number] [address] STATES AMERICAINTERPRETATION COMMENT FOR PROTEIN ELECTROPHORESISSee separate immunofixation report for characterization of monoclonal gammopathy.NormalAvita Health System Galion Hospital Comment on above:Order Comment: Specimen Type: BLOOD SPECIMENOrdering Facility: [facility] Address:[address] [place] [address] Performed By: #### [id number] ####[facility] LABCLIA [id number] [place] [address] [place] M-PROTEIN LOCATIONGamma Fraction 1NormalOhioHealth [facility] on above:Order Comment: Specimen Type: BLOOD SPECIMENOrdering Facility: [facility] Address:[address] [place], [place] [address]Performed By: #### [id number] ####[facility] LABCLIA [id number] [place] [address] [place] OF AMERICAProtein Fractions [Interp]An M protein is identified on protein electrophoresis.AbnormalNo definitive M protein is identified on protein electrophoresis.[facility] on above:Order Comment: Specimen Type: BLOOD SPECIMENOrdering Facility: [facility] Address:[address] [place], [place] [address]Performed By: #### [id number] ####[facility] LABCLIA [id number] [place] [id number] [place] Protein.monoclonal Elph [Mass/Vol]0.61 g/dLHigh<=0.00[facility] Comment on above:Order Comment: Specimen Type: BLOOD SPECIMENOrdering Facility: [facility] Address:[address] [place] [address] Performed By: #### [id number] ####[facility] LABCLIA [id number] [address] STATES [place] SPE STAFF REVIEWReviewed by Flavio Garcia MD, Ph.D ([id number])NormalAvita Health System Galion HospitalComment on above:Order Comment: Specimen Type: BLOOD SPECIMENOrdering Facility: [facility] Address:[address] [place], [place] [address]Performed By: #### [id number] ####[facility] LABIA [id number] [place] [id number] [place] OF AMERICAPhosphate SerPl-mCncon 53-23-5769Bzyagkhmx [Mass/Vol]3.0 mg/dLNormal 2.7-4.8CMercy Health St. Joseph Warren HospitalComment on above:Order Comment: Specimen Type: BLOOD SPECIMENOrdering Facility: [facility] Address:[address] [place], [place] [address]Performed By: #### 2777-1, 56823-5, 3084-1, 2532-0 ####[facility] LABCLIA [id number] [place], [place] [address]Tdpgagwa mean volume Auto (Bld) [Entitic vol]on 69-88-6692Nctjmpfl mean volume (Bld) [Entitic vol]9.6 fL9.0-12.7FPremier Health Miami Valley Hospital SouthPlatelets Auto (Bld) [#/Vol]on 75-37-3582Nepyvvwdd (Bld) [#/Vol]201 10*3/dO560-790UkxssuubeOhiohealth Shelby HospitalProt SerPl-mCncon 58-18-6768Xcpfmfc [Mass/Vol]6.8 g/dLNormal6.3-8.0[facility] Comment on above:Order Comment: Specimen Type: BLOOD SPECIMENOrdering Facility: [facility] Address:[address] [place] [address] Performed By: #### 2885-2, 1951-03 ####[facility] LABCLIA [id number] [place] [address] [place] Protein [Mass/volume] in Serum or Plasmaon 67-78-6955Olrupam [Mass/Vol]6.8 g/dL 6.3-8.0[facility] HospitalRBC Auto (Bld) [#/Vol]on 52-82-2929XYM (Bld) [#/Vol]4.31 10*6/uL4.20-6.00[facility] Hospitalerum ionized calcium measurement using ion specific electrode (mass/volume)on 08-19-2024 Calcium.ionized ISE [Mass/Vol]1.27 mmol/L1.08-1.30[facility] Hospitalerum or plasma alpha 1 globulin measurement by electrophoresis (mass/volume)on 17-32-8149Jyevj 1 globulin Elph [Mass/Vol]0.27 g/dL0.18-0.43 [facility] Hospitalerum or plasma alpha 2 globulin measurement by electrophoresis (mass/volume)on 52-19-5276Bxmas 2 globulin Elph [Mass/Vol]0.82 g/dL0.42-0.98[facility] Hospitalerum or plasma anion gap determinationon 40-61-1352Gxgny gap [Moles/Vol]8 mmol/L8-15[facility] Hospitalerum or plasma beta globulin measurement by electrophoresis (mass/volume)on 17-89-7774Cvtb globulin Elph [Mass/Vol]0.82 g/dL0.61-1.17 [facility] Hospitalerum or plasma efio-6-yljehmmhnkura measurement (mass/volume)on 56-15-5176Ocrt-2-Microglobulin [Mass/Vol]4.5 ug/mL High<3.1FPremier Health Miami Valley Hospital SouthComment on above:Beta-2 Microglobulin test is performed using the [employer] immunoturbidimetric method. Resul ts obtained with different methods or kits cannot be used interchangeably.Serum or plasma gamma globulin measurement by electrophoresis (mass/volume)on 67-23-6854Gafuz globulin Elph [Mass/Vol]1.40 g/dL0.53-1.51[facility] Shelby HospitalUrate SerPl-mCncon 35-60-7469Sucmh [Mass/Vol]4.6 mg/dLNormal 4.0-8.1CMercy Health St. Joseph Warren HospitalComment on above:Order Comment: Specimen Type: BLOOD SPECIMENOrdering Facility: [facility] Address:[address] [place], [place] [address]Dgytvxvzs By: #### 2777-1, 42809-5, 3084-1, 2532-0 ####[facility] LABCLIA [id number] [place], [place] [address]YQVUwa 30-47-1653EQGBByggbkBachxvhwn Clinic ClevelandCNPN on 20-91-2790BLZQTcqgukGzxgnxjnr Clinic ClevelandCNPNon 78-06-2442YGAJUpuplo [facility] Galion HospitalCNPNon 29-63-5952JPVMLnbfdsWxkeroxdt [facility] [place] BRIEF OP NOTon 56-30-9733NYONI OP NOTNormalCMercy Health St. Joseph Warren HospitalCNDSon 29-53-3942DQPCPygdclJhdiwcknk Clinic ClevelandNURSING PROGon 48-34-7048NPYYNBR PROGNormalAvita Health System Galion HospitalPT EDon 17-78-8095JD EDNormMercy Health Willard HospitalPathology biopsy report Augie (Tiss)on 30-46-4289ME DISCLAIMER [facility] HospitalComascension providence hospital on above:Order Comment: Specimen Type: TISSUE SPECIMENOrdering Facility: [facility] Address: [address] [place], [place] [address]Ijcimc Comment: Laboratory Developed Test (LDT) Disclaimer:Performance characteristics of immunohistochemical, immunofluorescent, and chromogenic in-situ hybridization tests have been determined by the performing laboratory within [facility]'s Jagdish Owusu Pathology and Laboratory Medicine Department ([facility], [facility], [facility], [facility], [facility], [facility], or [facility]) in a manner consistent with CLIA requirements. One or more of these tests may not have been cleared or approved by the FDA. RT-PLM is regulated under CLIA as qualified to perform high-complexity testing. These tests are used for clinical purposes. These should not be regarded as investigational or for research. Positive and negative controls stain appropriately.Performed By: #### 56546-8 ####[facility] LABIA [id number] [place] [id number] [place] STATES OF AMERICACASE REPORTNoProMedica Flower HospitalComment on above:Order Comment: Specimen Type: TISSUE SPECIMENOrdering Facility: [facility] Address: [address] [place], [place] [address]Result Comment: Surgical Pathology Report Case: [id number] Provider: Martha Gandara MD, MD Collected: 07/21/2024 11:22 AMOrdering Location: [place] [address] Received: 07/21/2024 06:18 PMPathologist: Marielos Melvin MDSpecimen: Parotid Gland, Left, Biopsy, h/o multiple myelomaPerformed By: #### 86186-5 ####[facility] [id number] [place] [id number] [facility] CENTERCLINICAL HISTORYhistory of multiple myeloma with large left parotid massNoProMedica Flower Hospital Comment on above:Order Comment: Specimen Type: TISSUE SPECIMENOrdering Facility: [facility] Address: [address] [place] [address] Performed By: #### 58349-1 ####[facility]ENTERIA [id number] [place] [id number] [facility] DIAGNOSIS COMMENTNo high grade carcinoma features are identified on the biopsy, although grading is best evaluated on the resection specimen. This case was reviewed in intradepartmental consultation with Dr. Lionel Galaviz, who agrees with the diagnosis.NormalOhioHealth [facility] on above:Order Comment: Specimen Type: TISSUE SPECIMENOrdering Facility: [facility] Address: [address] [place], [place] [address]Performed By: #### 85506-2 ####[facility] LABCLIA [id number] [address] [address] [facility] CENTERFINAL DIAGNOSISNormal [facility] on above:Order Comment: Specimen Type: TISSUE SPECIMENOrdering Facility: [facility] Address: [address] [place], [place] [address]Result Comment: A. Left parotid, mass, needle biopsy:- Mucoepidermoid carcinoma, see comment. at 1142 EDTPerformed By: #### 36780-3 ####[facility] LABCLIA [id number] [address] [address] [facility] LABNoProMedica Flower Hospital Comment on above:Order Comment: Specimen Type: TISSUE SPECIMENOrdering Facility: [facility] Address: [address] [place], [place] [address]Result Comment: Diagnostic interpretation performed at: [facility], [address] [place] [address], [address] [address] CLIA# [id number] Director: COLTON Shresthaerformed By: #### 61065-7 ####[facility] LABCLIA [id number] [address] [address] [facility] DESCRIPTIONMercy Health Anderson Hospital on above:Order Comment: Specimen Type: TISSUE SPECIMENOrdering Facility: [facility] Address: [address] [place], [place] [address]Result Comment: A. Parotid Gland, Left, BiopsyReceived in formalin are multiple segments of cylindrical tissue aggregating to 2.8 x 0.2 x 0.1 cm, cardoso-red and of a soft and friable consistency. Totally submitted in one cassette.Gross examination performed at [facility], [address] [place], [place] [address]AMS July 21, 2024 7:23 PMPerformed By: #### 01898-2 ####[facility] LABCLIA [id number] [address] [address] [place] OF AMERICAUS BIOPSY SALIVARY GLANDon 18-98-5139XY BIOPSY SALIVARY GLANDNormalCThe [facility] panel Auto (Bld)on 82-96-0590Omybmiwgthj distribution width (RBC) [Ratio]12.5 %Normal 11.5-15.0[facility] on above:Order Comment: Specimen Type: BLOOD SPECIMENOrdering Facility: [facility] Address:[address] [place], [place] [address]Performed By: #### 68478-1 ####[facility] LABCLIA [id number] [place] [address] Hematocrit (Bld) [Volume fraction]41.0 %Pjfisq88.0-51.0[facility] on above:Order Comment: Specimen Type: BLOOD SPECIMENOrdering Facility: [facility] Address:[address] [place], [place] [address]Performed By: #### 48283-5 ####[facility] LABCLIA [id number] [place], [place] [address]Xxrwdsqehu (Bld) [Mass/Vol]13.3 g/nVSbfxbn34.0-17.0[facility] on above:Order Comment: Specimen Type: BLOOD SPECIMENOrdering Facility: [facility] Address:[address] [place], [place] [address]Performed By: #### 37351-1 ####[facility] LABCLIA [id number] [place], [place] [address]BCS (RBC) [Entitic mass]30.2 skJllefn80.0-34.0[facility] on above:Order Comment: Specimen Type: BLOOD SPECIMENOrdering Facility: [facility] Address:[address] [place], [place] [address]Performed By: #### 33539-9 ####[facility] LABCLIA [id number] [place], [place] [address]WMQQ (RBC) [Mass/Vol]32.4 g/hINmajta41.5-36.0[facility] on above: Order Comment: Specimen Type: BLOOD SPECIMENOrdering Facility: [facility] Address:[address] [place], [place] [address]Performed By: #### 60935- 2 ####[facility] LABCLIA [id number] [place], [place] [address]XIX (RBC) [Entitic vol]93.0 uCFifnxn12.0-100.0[facility] on above:Order Comment: Specimen Type: BLOOD SPECIMENOrdering Facility: [facility] Address:[address] [place], [place] [address]Performed By: #### 51684-3 ####[facility] LABIA [id number] [place], [place] [address]Efzqqvyvc RBC (Bld) [#/Vol]10*3/uLNormal<0.01[facility] on above:Order Comment: Specimen Type: BLOOD SPECIMENOrdering Facility: [facility] Address:[address] [place], [place] [address]Performed By: #### 37411- 2 ####[facility] LABIA [id number] [place], [place] [address]Fyogzpcg mean volume (Bld) [Entitic vol]9.6 fLNormal 9.0-12.7CRiverside Methodist Hospital on above:Order Comment: Specimen Type: BLOOD SPECIMENOrdering Facility: [facility] Address:[address] [place], [place] [address]Performed By: #### 97906-2 ####[facility] HEALTHIA [id number] [place], [place] [address]Zyzenwagg (Bld) [#/Vol]210 10*3/kBKtdwww514-677ZhogjbqkhOhioHealth Arthur [facility]. [facility] on above: Order Comment: Specimen Type: BLOOD SPECIMENOrdering Facility: [facility] Address:[address] [place], [place] [address]Performed By: #### 34588- 2 ####[facility] LABIA [id number] [place], [place] [address]XMG (Bld) [#/Vol]4.41 10*6/uLNormal4.20-6.00[facility] on above:Order Comment: Specimen Type: BLOOD SPECIMENOrdering Facility: [facility] Address:[address] [place], [place] [address]Performed By: #### 89181-2 ####[facility] [id number] [place], [place] [address]XVI (Bld) [#/Vol]6.45 10*3/uLNormal3.70-11.00[facility] on above: Order Comment: Specimen Type: BLOOD SPECIMENOrdering Facility: [facility] Address:[address] [place], [place] [address]Performed By: #### 77098- 2 ####[facility] [id number] [place], [place] [address]Mohcnewolnv distribution width Auto (RBC) [Ratio]on 15-50-8381Wrpdvpvkihj distribution width (RBC) [Ratio]12.5 %11.5-15.0[facility] Shelby HospitalHematocrit Auto (Bld) [Volume fraction]on 07-16-2024 Hematocrit (Bld) [Volume fraction]41.0 %39.0-51.0[facility] HospitalHemoglobin [Mass/volume] in Bloodon 66-65-9696Ymmsdokmmi (Bld) [Mass/Vol] 13.3 g/dL13.0-17.0[facility] HospitalINR in Platelet poor plasma by Coagulation assayon 67-26-2681HYE Coag (PPP) [Relative time]2.7 {INR}High 0.9-1.3FPremier Health Miami Valley Hospital SouthComment on above:Vitamin K Antagonist (VKA) Therapeutic Range: INR 2 to 3 (Target INR of 2.5)Note: For patients treat ed with VKA drugs, such as warfarin, the [employer] 2012 Guideline recommends [...] al. Chest 2012, 141:7S-47SNishimura RA, et al. [facility] 2017, 70: 252-289Leukocytes [#/volume] corrected for nucleated erythrocytes in Blood by Automated counon 84-24-4868IQY corrected for nucl RBC Auto (Bld) [#/Vol]6.45 k/uL3.70-11.00[facility] Auto (RBC) [Entitic mass]on 66-34-6315VQS (RBC) [Entitic mass]30.2 pg26.0-34.0[facility] RehabilitationHC Auto (RBC) [Mass/Vol]on 48-14-5627QGCJ (RBC) [Mass/Vol]32.4 g/dL 30.5-36.0[facility] [facility] for RehabilitationV Auto (RBC) [Entitic vol]on 29-07-2717RGS (RBC) [Entitic vol]93.0 fL80.0-100.0[facility] HospitalNucleated RBC Auto (Bld) [#/Vol]on 16-58-4239Jrviqlytr RBC (Bld) [#/Vol] 10*3/uL<0.01[facility] HospitalPT panel Coag (PPP)on 33-25-5548ZIX Coag (PPP) [Relative time]2.7 {INR}High0.9-1.3CRiverside Methodist Hospital on above:Order Comment: Specimen Type: BLOOD SPECIMENOrdering Facility: [facility] Address:[address] [place], [place] [address]Result Comment: Vitamin K Antagonist (VKA) Therapeutic Range: INR 2 to 3 (Target INR of 2.5)Note: For patients treated with VKA drugs, such as warfarin, the [employer] 2012 Guideline recommends [...] al. Chest 2012, 141:7S-47SNishimura RA, et al. [facility] 2017, 70: 252-289Performed By: #### 89950-7 ####[facility] LABCLIA [id number] [place] [address] [place] AMERICAPT Coag (PPP) [Time] 27.4 sHigh9.7-13.0[facility] on above:Order Comment: Specimen Type: BLOOD SPECIMENOrdering Facility: [facility] Address:[address] [place], [place] [address]Performed By: #### 89844-4 ####[facility] LABIA [id number] [place] [address] [place] AMERICAPlatelet mean volume Auto (Bld) [Entitic vol]on 66-49-4732Gyepryew mean volume (Bld) [Entitic vol]9.6 fL9.0-12.7 [facility] Shelby HospitalPlatelets Auto (Bld) [#/Vol]on 07-16-2024 Platelets (Bld) [#/Vol]210 10*3/xU710-161TlyaudeihOhiohealth Shelby Hospital Prothrombin time (PT)on 07-30-3711MT Coag (PPP) [Time]27.4 sHigh9.7-13.0 [facility] HospitalRBC Auto (Bld) [#/Vol]on 08-56-6584MAN (Bld) [#/Vol]4.41 10*6/uL4.20-6.00[facility] HospitalNURSING PROGon 80-49-0795EAJJQVN PROGNormalSelect Medical Specialty Hospital - Columbus SouthvelandCNOVon 74-91-4079NYNZ NormalAvita Health System Galion HospitalCNPNon 67-74-8837XEKDRwibxhQwzrtzukw Clinic [place]CT NECK SOFT TISSUE W IVCONon 69-60-1094LE NECK SOFT TISSUE W IVCON NormalAvita Health System Galion HospitalCT Neck W contrast Sachi 75-58-2240JSFLHJFODM: Slight interval increase in size of left [...] any questions regarding this interpretation, please call [phone]. If you are unable to reach us at the number above, please feel free to contact [facility] eRadiology at [phone].DIVISION OF RADIOLOGY* * *Final Report* * * DATE OF EXAM: May 28 2024 2:29PM [facility] 0013 - CT NECK SOFT [...] limits. The soft tissue planes of the dental lab technician spaces are maintained. There is no evidence [...] apex. Other: Not applicable. DIVISION OF RADIOLOGYProvider, [facility] [place] - 05/28/2024 * * *Final Report* * * DATE OF EXAM: May 28 2024 2:29PM [facility] 0013 - CT NECK SOFT [...] limits. The soft tissue planes of the dental lab technician spaces are maintained. There is no evidence [...] any questions regarding this interpretation, please call [phone]. If you are unable to reach us at the number above, please feel free to contact [facility] Hospitaliology at [phone]. [facility]arios ClinicRadiology Study observation (narrative)[facility] [facility] HospitalCT Neck W contrast IVOrdered By: Ccf Provider on 47-45-2402Mealznqkh ClinicCNOVSPon 95-02-1684QYSCNULdpmuvGlauhgeqn Clinic Cleguernsey memorial hospitalCNPNon 08-00-8582XLIJXwymnd [facility] HospitalAlbumin [Mass/volume] in Serum or Plasmaon 05-10-2024 Albumin [Mass/Vol]Albumin [Mass/volume] in Serum or Plasma3.43-5.41[facility] HospitalB2 Microglob SerPl-mCncon 19-09-9075Bddy-2-Microglobulin [Mass/Vol]4.7 ug/mLHigh<3.1ClevelKettering Health Preble on above:Order Comment: Specimen Type: BLOOD SPECIMENOrdering Facility: [facility] Address:[address] [place], [place] [address]Result Comment: Beta-2 Microglobulin test is performed using the [employer] immunoturbidimetric method. Results obtained with different methods or kits cannot be used interchangeably.Performed By: #### 1952-1, 2885-2 ####[facility] LABCLIA [id number] [facility] [id number] VILLE [id number] [place] OF AMERICABasophils Auto (Bld) [#/Vol]on 62-16-3517Mptrpyhru (Bld) [#/Vol]Automated basophil count<0.11[facility] Basophils/100 WBC Auto (Bld)on 57-95-7298Ykrvsbjah/100 WBC (Bld)Automated basophil %[facility] HospitalBlood manual differential comment interpretation narrativeon 62-32-5690Prxhpt differential comment Augie (Bld) [Interp]Blood manual differential comment interpretation narrativeOhiohealth Shelby HospitalCBC W Auto Differential panel (Bld)on 65-42-4067Oowuqmfsq (Bld) [#/Vol]0.03 10*3/uLNormal<0.11CRiverside Methodist Hospital on above: Order Comment: Specimen Type: BLOOD SPECIMENOrdering Facility: [facility] Address:[address] [place], [place] [address]Performed By: #### 92754- 8 ####[facility] LABCLIA [id number] [place], [place] [address]Ucxnhjwba/100 WBC (Bld)0.4 %NormalOhioHealth Arthur [facility] on above:Order Comment: Specimen Type: BLOOD SPECIMENOrdering Facility: [facility] Address:[address] [place], [place] [address]Performed By: #### 43638-2 ####[facility] LABCLIA [id number] [place] [address]Jszsqzpqplhm cell count method Nom (Bld)AutoNormalCRiverside Methodist Hospital on above:Order Comment: Specimen Type: BLOOD SPECIMENOrdering Facility: [facility] Address:[address] [place], [place] [address]Performed By: #### 20424-1 ####[facility] LABCLIA [id number] [place], [place] [address]Wpdfgrcgqid (Bld) [#/Vol]0.16 10*3/uLNormal<0.46[facility] on above:Order Comment: Specimen Type: BLOOD SPECIMENOrdering Facility: [facility] Address:[address] [place], [place] [address]Performed By: #### 06020-9 ####[facility] LABCLIA [id number] [place], [place] [address]Viayxdkvhgu/100 WBC (Bld)2.0 %NormalOhioHealth [facility], [facility] on above:Order Comment: Specimen Type: BLOOD SPECIMENOrdering Facility: [facility] Address:[address] [place], [place] [address]Performed By: #### 33995-3 ####[facility] LABCLIA [id number] [place], [place] [address]Xyblleewsof distribution width (RBC) [Ratio]13.5 %Normal 11.5-15.0[facility] on above:Order Comment: Specimen Type: BLOOD SPECIMENOrdering Facility: [facility] Address:[address] [place], [place] [address]Performed By: #### 82889-9 ####[facility] LABIA [id number] [place] [address] Hematocrit (Bld) [Volume fraction]41.9 %Lxgxxi84.0-51.0[facility] on above:Order Comment: Specimen Type: BLOOD SPECIMENOrdering Facility: [facility] Address:[address] [place], [place] [address]Performed By: #### 13833-9 ####[facility] LABIA [id number] [place], [place] [address]Dbxddisixl (Bld) [Mass/Vol]13.7 g/mOXesywm22.0-17.0[facility] on above:Order Comment: Specimen Type: BLOOD SPECIMENOrdering Facility: [facility] Address:[address] [place], [place] [address]Performed By: #### 62691-9 ####[facility] LABIA [id number] [place], [place] [address]Tztmoyac granulocytes (Bld) [#/Vol]0.03 10*3/uLNormal <0.10[facility] on above:Order Comment: Specimen Type: BLOOD SPECIMENOrdering Facility: [facility] Address:[address] [place], [place] [address]Performed By: #### 86943-5 ####[facility] LABCLIA [id number] [place], [place] [address]Ithbuqsp granulocytes/100 WBC (Bld)0.4 %NormalOhioHealth [facility] on above: Order Comment: Specimen Type: BLOOD SPECIMENOrdering Facility: [facility] Address:[address] [place], [place] [address]Performed By: #### 62587- 8 ####[facility] LABCLIA [id number] [place], [place] [address]Xwpdwylflag (Bld) [#/Vol]1.73 10*3/uLNormal1.00-4.00 [facility] on above:Order Comment: Specimen Type: BLOOD SPECIMENOrdering Facility: [facility] Address:[address] [place], [place] [address]Performed By: #### 10665-5 ####[facility] LABCLIA [id number] [place], [place] [address]Ljxmppggxlu/100 WBC (Bld)22.1 %NormalOhioHealth [facility] on above:Order Comment: Specimen Type: BLOOD SPECIMENOrdering Facility: [facility] Address:[address] [place], [place] [address]Performed By: #### 58218-9 ####[facility] LABCLIA [id number] [place], [place] [address]ZMP (RBC) [Entitic mass]30.7 erElkowz30.0-34.0[facility] on above:Order Comment: Specimen Type: BLOOD SPECIMENOrdering Facility: [facility] Address:[address] [place], [place] [address]Performed By: #### 01317-5 ####[facility] LABCLIA [id number] [place], [place] [address]MYCD (RBC) [Mass/Vol]32.7 g/bQYfulel91.5-36.0[facility] on above: Order Comment: Specimen Type: BLOOD SPECIMENOrdering Facility: [facility] Address:[address] [place], [place] [address]Performed By: #### 34132- 8 ####[facility] LABCLIA [id number] [place], [place] [address]THV (RBC) [Entitic vol]93.9 fIGiubre38.0-100.0[facility] on above:Order Comment: Specimen Type: BLOOD SPECIMENOrdering Facility: [facility] Address:[address] [place], [place] [address]Performed By: #### 23598-3 ####[facility] LABIA [id number] [place], [place] [address]Qxfavuaqz (Bld) [#/Vol]0.79 10*3/uLNormal<0.87[facility] on above:Order Comment: Specimen Type: BLOOD SPECIMENOrdering Facility: [facility] Address:[address] [place], [place] [address]Performed By: #### 62768- 8 ####[facility] LABCLIA [id number] [place], [place] [address]Rcmzopuna/100 WBC (Bld)10.1 %NormalOhioHealth [facility] on above:Order Comment: Specimen Type: BLOOD SPECIMENOrdering Facility: [facility] Address:[address] [place], [place] [address]Performed By: #### 34955-4 ####[facility] LABIA [id number] [place], [place] [address]Ubsfuprhozj (Bld) [#/Vol]5.10 10*3/uLNormal1.45-7.50[facility] on above:Order Comment: Specimen Type: BLOOD SPECIMENOrdering Facility: [facility] Address:[address] [place], [place] [address]Performed By: #### 07738-3 ####[facility] LABCLIA [id number] [place], [place] [address]Xluekzfyzct/100 WBC (Bld)65.0 %NormalOhioHealth [facility] on above:Order Comment: Specimen Type: BLOOD SPECIMENOrdering Facility: [facility] Address:[address] [place], [place] [address]Performed By: #### 26373-7 ####[facility] LABIA [id number] [place], [place] [address]Byrszyiex RBC (Bld) [#/Vol] 10*3/uLNormal<0.01[facility] on above:Order Comment: Specimen Type: BLOOD SPECIMENOrdering Facility: [facility] Address:[address] [place], [place] [address]Performed By: #### 60740-4 ####[facility] LABCLIA [id number] [place], [place] [address]Iqnjffdqw RBC/100 WBC (Bld) [Ratio]0.0 /100 WBCNormal [facility] on above:Order Comment: Specimen Type: BLOOD SPECIMENOrdering Facility: [facility] Address:[address] [place], [place] [address]Performed By: #### 77080-2 ####[facility] LABCLIA [id number] [place], [place] [address]Tmuwvezg mean volume (Bld) [Entitic vol]9.7 fLNormal9.0-12.7CRiverside Methodist Hospital on above:Order Comment: Specimen Type: BLOOD SPECIMENOrdering Facility: [facility] Address:[address] [place] [address] Performed By: #### 03217-4 ####[facility] LABCLIA [id number] [place], [place] [address]Tmaxblvcp (Bld) [#/Vol]232 10*3/oMHtpdjd823-448NhzhmbetkOhioHealth [facility] on above:Order Comment: Specimen Type: BLOOD SPECIMENOrdering Facility: [facility] Address:[address] [place], [place] [address]Performed By: #### 55724-3 ####[facility] LABCLIA [id number] [place], [place] [address]LHZ (Bld) [#/Vol]4.46 10*6/uLNormal4.20-6.00[facility] on above:Order Comment: Specimen Type: BLOOD SPECIMENOrdering Facility: [facility] Address:[address] [place], [place] [address]Performed By: #### 19746-7 ####[facility] LABCLIA [id number] [place], [place] [address]XAL (Bld) [#/Vol]7.84 10*3/uLNormal3.70-11.00[facility] on above: Order Comment: Specimen Type: BLOOD SPECIMENOrdering Facility: [facility] Address:[address] [place], [place] [address]Performed By: #### 81484- 8 ####[facility] LABCLIA [id number] [place], [place] [address]Odoivfx.ionized [Moles/Vol]on 36-31-9518Xiclwms.ionized (Bld) [Mass/Vol]1.26 mmol/LNormal1.08-1.30[facility] on above:Order Comment: Specimen Type: BLOOD SPECIMENOrdering Facility: [facility] Address:[address] [place], [place] [address]Performed By: #### 1995-0 ####[facility] LABIA [id number] [address]Calcium.ionized adjusted to pH 7.4 (Bld) [Moles/Vol]1.22 mmol/LNormal1.08-1.30[facility] on above:Order Comment: Specimen Type: BLOOD SPECIMENOrdering Facility: [facility] Address:[address] [place] [address]Ijskbywne By: #### 1995-0 ####[facility]IA [id number] [place] [id number] [facility] Comprehensive metabolic 2000 panelon 37-36-2584Dlghaut [Mass/Vol]3.9 g/dLNormal 3.9-4.9CRiverside [facility] Hospital on above:Order Comment: Specimen Type: BLOOD SPECIMENOrdering Facility: [facility] Address:[address] [place], [place] [address]Performed By: #### 3084-1, 27226-8, 2777-1, 2532-0 ####[facility] LABCLIA [id number] [place], [place] [address]JPV [Catalytic activity/Vol]96 U/SHeazae73-124VefdhgucsOhioHealth [facility] on above:Order Comment: Specimen Type: BLOOD SPECIMENOrdering Facility: [facility] Address:[address] [place], [place] [address]Performed By: #### 3084-1, 40303-5, 7-1, 2532-0 ####[facility] LABCLIA [id number] [place], [place] [address]SZH [Catalytic activity/Vol]16 U/IGevdwz86-05JlhogtgfwOhioHealth [facility] on above:Order Comment: Specimen Type: BLOOD SPECIMENOrdering Facility: [facility] Address:[address] [place], [place] [address]Performed By: #### 3084-1, 73341-1, 2776-1, 2532-0 ####[facility] LABCLIA [id number] [place], [place] [address]Kjtpw gap [Moles/Vol]9 mmol/LNormal8-15[facility] on above:Order Comment: Specimen Type: BLOOD SPECIMENOrdering Facility: [facility] Address:[address] [place], [place] [address]Performed By: #### 3084-1, 04649-8, 7-1, 2532-0 ####[facility] LABIA [id number] [place], [place] [address]HKB [Catalytic activity/Vol]21 U/NHoejbu28-94BoicjdloqOhioHealth [facility] on above:Order Comment: Specimen Type: BLOOD SPECIMENOrdering Facility: [facility] Address:[address] [place], [place] [address]Performed By: #### 3084-1, 75339-0, 7-, 2532-0 ####[facility] LABCLIA [id number] [place], [place] [address]Xdmsirpky [Mass/Vol]0.3 mg/dL Normal0.2-1.3CRiverside Methodist Hospital on above:Order Comment: Specimen Type: BLOOD SPECIMENOrdering Facility: [facility] Address:[address] [place], [place] [address]Performed By: #### 3084-1, 31961-1, 2776-, 2532- 0 ####[facility] LABCLIA [id number] [place], [place] [address]Sfuzisn [Mass/Vol]9.5 mg/dLNormal8.5-10.2CRiverside Methodist Hospital on above:Order Comment: Specimen Type: BLOOD SPECIMENOrdering Facility: [facility] Address:[address] [place], [place] [address]Performed By: #### 3084-1, 83833-2, 2776-, 2532-0 ####[facility] K[facility] LABCLIA [id number] [place], [place] [address]Jsagvgdr [Moles/Vol]102 mmol/DWnqlok41-029EjnqstjvjOhioHealth [facility] on above: Order Comment: Specimen Type: BLOOD SPECIMENOrdering Facility: [facility] Address:[address] [place], [place] [address]Performed By: #### 3084- 1, 79351-8, 2776-, 2532-0 ####[facility] LABCLIA [id number] [place], [place] [address]UY6 [Moles/Vol]26 mmol/LNormal 22-30[facility] on above:Order Comment: Specimen Type: BLOOD SPECIMENOrdering Facility: [facility] Address:[address] [place], [place] [address]Performed By: #### 3084-1, 26824-4, 2776-1, 2532-0 ####[facility] LABCLIA [id number] [place], [place] [address]Csfchssfok [Mass/Vol]1.34 mg/dLHigh0.73-1.22[facility] on above:Order Comment: Specimen Type: BLOOD SPECIMENOrdering Facility: [facility] Address:[address] [place], [place] [address]Performed By: #### 3084-1, 86135-5, 2777-1, 2532-0 ####[facility] LABCLIA [id number] [place], [place] [address]Fhyzzhsmpy and Glomerular filtration rate.predicted panel (S/P/Bld)53 mL/min/1.73m???Low>=60[facility] on above: Order Comment: Specimen Type: BLOOD SPECIMENOrdering Facility: [facility] Address:[address] [place], [place] [address]Result Comment: Estimated Glomerular Filtration Rate (eGFR) is [...] accurately reflect actual GFR.Performed By: #### 3084-1, 92583-4, 277-1, 2532-0 ####[facility] LABCLIA [id number] [place], [place] [address]Oefovgk [Mass/Vol]237 mg/lFFsxi11-02 [facility] on above:Order Comment: Specimen Type: BLOOD SPECIMENOrdering Facility: [facility] Address:[address] [place] [address]Bzntwp Comment: The [place] Diabetes Association (ADA) provides guidance for cutoff [...] Standards of Medical Care in Diabetes 2016, [place] Diabetes Association. Diabetes Care. 2016.39(Suppl 1).Performed By: #### 3084-1, 24272-9, 2776-03, 2-0 ####[facility] LABCLIA [id number] [place], [place] [address]Taewmxyxc [Moles/Vol]4.2 mmol/L Normal3.7-5.1CRiverside Methodist Hospital on above:Order Comment: Specimen Type: BLOOD SPECIMENOrdering Facility: [facility] Address:[address] [place], [place] [address]Performed By: #### 3084-1, 32622-2, 2776-03, 2- 0 ####[facility] LABCLIA [id number] [place], [place] [address]Mvvenq [Moles/Vol]137 mmol/TEuzult382-576NhtuurbxkOhioHealth [facility] on above:Order Comment: Specimen Type: BLOOD SPECIMENOrdering Facility: [facility] Address:[address] [place], [place] [address]Performed By: #### 3084-1, 85613-4, 2776-03, 2531-0 ####[facility] LABCLIA [id number] [place], [place] [address]Ayxs nitrogen [Mass/Vol]17 mg/dLNormal9-24[facility] on above: Order Comment: Specimen Type: BLOOD SPECIMENOrdering Facility: [facility] Address:[address] [place], [place] [address]Performed By: #### 3084- 1, 98953-8, 2776-03, 2532-0 ####[facility] LABCLIA [id number] [place], [place] [address]Qbrcottfprs/100 WBC Auto (Bld)on 21-94-0850Jambzkvloyf/100 WBC (Bld)Automated eosinophil %[facility] Shelby HospitalErythrocyte distribution width Auto (RBC) [Ratio]on 05-10-2024 Erythrocyte distribution width (RBC) [Ratio]Erythrocyte distribution width [Ratio] by Automated count11.5-15.0[facility] Shelby HospitalHematocrit Auto (Bld) [Volume fraction]on 53-95-3521Naxuyamtcb (Bld) [Volume fraction] Hematocrit [Volume Fraction] of Blood by Automated count39.0-51.0[facility] HospitalHemoglobin [Mass/volume] in Bloodon 85-25-5282Orawfrhzdm (Bld) [Mass/Vol]Hemoglobin [Mass/volume] in Blood13.0-17.0[facility] HospitalIMMUNOFIXATION SCREEN, SERUMon 51-51-6917AFKZCOWTLFBPOD (MPA) Atypical restricted bands are present in the IgG and kappa regions. Consistent with IgG kappa monoclonal gammopathy.NormalOhioHealth [facility] on above:Order Comment: Specimen Type: BLOOD SPECIMENOrdering Facility: [facility] Address:[address] [place], [place] [address]Performed By: #### IFESC ####[facility] LABCLIA [id number] [facility] [id number] [place] [address] [place] OF AMERICAMPA RESULTM protein is present. AbnormalNo M protein is identified.[facility] on above: Order Comment: Specimen Type: BLOOD SPECIMENOrdering Facility: [facility] Address:[address] [place], [place] [address]Performed By: #### IFESC ####[facility] LABIA [id number] [facility] L [address] [place] [address] [place] AMERICASTAFF REVIEW (MPA)Reviewed by Lily Lindsay M.D., Ph.DNormalOhioHealth [facility] on above: Order Comment: Specimen Type: BLOOD SPECIMENOrdering Facility: [facility] Address:[address] [place], [place] [address]Performed By: #### IFESC ####[facility] LABCLIA [id number] [place] [address] [place] AMERICAIMMUNOGLOBULINS,IGG,IGA,IGMon 08-87-8285PdC [Mass/Vol]299 mg/dOOyctva67-409ZrbuqonubOhioHealth [facility] on above:Order Comment: Specimen Type: BLOOD SPECIMENOrdering Facility: [facility] Address:[address] [place] [address] Performed By: #### SERIMM ####[facility] LABCLIA [id number] [place] [address] [place] IgG [Mass/Vol]1514 mg/uIRpghub318-1461NmfltzeqoOhioHealth [facility] on above:Order Comment: Specimen Type: BLOOD SPECIMENOrdering Facility: [facility] Address:[address] [place], [place] [address]Performed By: #### SERIMM ####[facility] LABCLIA [id number] [place] [address] [place] AMERICAIgM [Mass/Vol]321 mg/dL Rswn04-137ZpffggjzdOhioHealth [facility] on above:Order Comment: Specimen Type: BLOOD SPECIMENOrdering Facility: [facility] Address:[address] [place], [place] [address]Performed By: #### SERIMM ####[facility] LABCLIA [id number] [place] [address] [place] AMERICAIgA [Mass/volume] in Serum or Plasmaon 73-53-1502MbR [Mass/Vol]IgA [Mass/volume] in Serum or Bxcold41-249TsqoggvdiOhiohealth Shelby HospitalIgG [Mass/volume] in Serum or Plasmaon 31-40-3485QbD [Mass/Vol]IgG [Mass/volume] in Serum or Qrntdc125-3585GqedhbugwOhiohealth Shelby HospitalIgM [Mass/volume] in Serum or Plasmaon 59-31-8145CiF [Mass/Vol]IgM [Mass/volume] in Serum or BnrcqsJksm38-992JphpmqlfgOhiohealth Shelby HospitalImmunoglobulin light chains.kappa.free [Mass/volume] in Serumon 61-54-7963Waysjfjckixwln light chains.kappa.free (S) [Mass/Vol]Immunoglobulin light chains.kappa.free [Mass/volume] in SerumHigh3.3-19.4FPremier Health Miami Valley Hospital SouthComment on above:Rarely, increased serum free light chains levels may not be detected or accurately quantified due to prozone phenomenon or in high viscosity samples using this immunoturbidimetric assay. Correlation with other laboratory results and clinical findings is recommended. The [place] Free Light Chain was performed using the Binding Site Optilite immunoturbidimetric method. Result obtained with different assay methods or kits cannot be used interchangeably.Immunoglobulin light chains.kappa.free/Immunoglobulin light chains.lambda.free [[place] 35-13-4456Nifxklmhbhhmwm light chains.kappa.free/Immunoglobulin light chains.lambda.free (S) [Mass ratio]Immunoglobulin light chains.kappa.free/Immunoglobulin light chains.lambda.free [MassHigh0.26-1.65 [facility] Shelby HospitalImmunoglobulin light chains.lambda.free [Mass/volume] in Serum or Plasmaon 17-12-0088Vsztynqbaqjpra light chains.lambda.free [Mass/Vol]Immunoglobulin light chains.lambda.free [Mass/volume] in Serum or PlasmaHigh5.7-26.3FPremier Health Miami Valley Hospital South Comment on above:Rarely, increased serum free light [...] or kits cannot be used interchangeably. KAPPA/COTA,FREE,SERon 75-75-5208Mvgfnnblbcuoag light chains.kappa.free (S) [Mass/Vol]150.1 mg/LHigh3.3-19.4CMercy Health St. Joseph Warren HospitalComment on above:Order Comment: Specimen Type: BLOOD SPECIMENOrdering Facility: [facility] Address:[address] [place] [address] [place], [place] [address]Ilwyih Comment: Rarely, increased serum free light chains levels may not be detected or accurately q uantified due to prozone phenomenon or in high viscosity samples using this immunoturbidimetric assay. Correlation with other laboratory results and clinical findings is recommended.The [place] Free Light Chain was performed using the Binding Site Optilite immunoturbidimetric method. Result obtained with different assay methods or kits cannot be used interchangeably.Performed By: #### KLFRS ####[facility] LABCLIA [id number] [place] [address] [place] AMERICAImmunoglobulin light chains.kappa/Immunoglobulin light chains.lambda (S) [Mass ratio]2.81High 0.26-1.65[facility] on above:Order Comment: Specimen Type: BLOOD SPECIMENOrdering Facility: [facility] Address:[address] [place], [place] [address]Performed By: #### KLFRS ####[facility]IA [id number] [place] [address] [place] [facility] HOSPITALImmunoglobulin light chains.lambda.free [Mass/Vol]53.5 mg/LHigh5.7-26.3CRiverside Methodist Hospital on above:Order Comment: Specimen Type: BLOOD SPECIMENOrdering Facility: [facility] Address:[address] [place], [place] [address]Result Comment: Rarely, increased serum free light chains [...] cannot be used interchangeably.Performed By: #### KLFRS ####[facility] LABIA [id number] [place] [address] [place] AMERICALD SerPl-cCncon 97-95-3813EOE [Catalytic activity/Vol]127 U/VVyc092-695QcunyvotiOhioHealth Arthur [facility] on above:Order Comment: Specimen Type: BLOOD SPECIMENOrdering Facility: [facility] Address:[address] [place], [place] [address]Uovuatrrn By: #### 3084-1, 51472-0, 2777-1, 2532-0 ####[facility] LABCLIA [id number] [place] [address] Laboratory - Chemistry and Chemistry - challengeon 99-32-9049Blffesq [Mass/Vol] 3.9 g/dL3.9-4.9Ohio[facility] Shelby HospitalALP [Catalytic activity/Vol]96 U/X66-009SfcobebmoOhiohealth Shelby HospitalALT [Catalytic activity/Vol]16 U/L 10-54Ohio[facility] Shelby HospitalAST [Catalytic activity/Vol]21 U/L14-40 [facility] HospitalBilirubin [Mass/Vol]0.3 mg/dL0.2-1.3FPremier Health Miami Valley Hospital SouthCalcium [Mass/Vol]9.5 mg/dL8.5-10.2FPremier Health Miami Valley Hospital SouthChloride [Moles/Vol]102 mmol/O15-375ZvaqeasnaOhiohealth Shelby HospitalCO2 [Moles/Vol]26 mmol/N63-88JcnkwnmjhOhiohealth Shelby HospitalCreatinine [Mass/Vol]1.34 mg/dLHigh0.73-1.22Ohio[facility] Shelby HospitalGlucose [Mass/Vol]237 mg/oQHact25-43TbivgjtokOhiohealth Shelby HospitalComment on above: The [place] Diabetes Association (ADA) provides guidance for cutoff [...] diabetes.Reference: Standardsof Medical Care in Diabetes 2016, [place] Diabetes Association. Diabetes Care. 2016.39(Suppl 1).LDH [Catalytic activity/Vol]127 U/EOev432-224IjtpouqinOhiohealth Shelby HospitalPotassium [Moles/Vol]4.2 mmol/L3.7-5.1FPremier Health Miami Valley Hospital SouthProtein [Mass/Vol]0.60 g/dLHigh<=0.00[facility] Sodium [Moles/Vol]137 mmol/I459-401UlowlfscwOhiohealth Shelby HospitalUrate [Mass/Vol]5.3 mg/dL4.0-8.1FPremier Health Miami Valley Hospital SouthUrea nitrogen [Mass/Vol]17 mg/dL9-24[facility] HospitalLaboratory - Hematology and Cell countson [id number] (Bld) [#/Vol]0.16 10*3/uL<0.46[facility] HospitalImmature granulocytes (Bld) [#/Vol]0.03 10*3/uL<0.10 [facility] HospitalImmature granulocytes/100 WBC (Bld)0.4 % [facility] HospitalLeukocytes [#/volume] corrected for nucleated erythrocytes in Blood by Automated counon [id number] corrected for nucl RBC Auto (Bld) [#/Vol]Leukocytes [#/volume] corrected for nucleated erythrocytes in Blood by Automated coun3.70-11.00[facility] HospitalLymphocytes Auto (Bld) [#/Vol]on [id number] (Bld) [#/Vol]Lymphocytes [#/volume] in Blood by Automated count1.00-4.00[facility] Lymphocytes/100 WBC Auto (Bld)on 42-21-7913Myebvbqheti/100 WBC (Bld) Lymphocytes/100 leukocytes in Blood by Automated countCleveland Clinic Children's Hospital for RehabilitationH Auto (RBC) [Entitic mass]on 42-02-8601MDP (RBC) [Entitic mass]MCH [Entitic mass] by Automated count26.0-34.0[facility] HospitalMCHC Auto (RBC) [Mass/Vol]on 04-80-9837UZUZ (RBC) [Mass/Vol]MCHC [Mass/volume] by Automated count30.5-36.0[facility] for RehabilitationV Auto (RBC) [Entitic vol]on 93-68-7294VXY (RBC) [Entitic vol]MCV [Entitic volume] by Automated count 80.0-100.0[facility] HospitalMonocytes Auto (Bld) [#/Vol]on 67-27-4970Efvbjcsff (Bld) [#/Vol]Automated blood monocyte count<0.87[facility] HospitalMonocytes/100 WBC Auto (Bld)on 14-62-1278Geegzuhbr/100 WBC (Bld)Automated monocyte %[facility] HospitalNeutrophils Auto (Bld) [#/Vol]on 81-03-4086Qgqxsrffhtz (Bld) [#/Vol]Neutrophils [#/volume] in Blood by Automated count1.45-7.50[facility] Neutrophils/100 WBC Auto (Bld)on 42-88-7939Klwslhssbym/100 WBC (Bld)Automated neutrophil %[facility] HospitalNo Panel Informationon 05-10-2024 Estimated GFR (CKD-EPI)53 mL/min/1.73m???Low>=60[facility] HospitalComment on above:Estimated Glomerular Filtration Rate (eGFR) is calculated using the 2020 CKD-EPI creatinine equation. This equation utilizes serum creatinine, sex, and age as parameters. The creatinine assay has traceable calibration to isotope dilution-mass spectrometry. Refer to KDIGO guidelines for clinical interpretation. In patients with unstable renal function, e.g. those with acute kidney injury, the eGFRmay not accurately reflect actual GFR. Immunofixation InterpretationOhiohealth Shelby HospitalIonized Calcium (pH Adjusted)1.22 mmol/L1.08-1.30[facility] HospitalLeuk/Lymph Sign Pathologist (Misc)Reviewed by Lily Lindsay M.D., Ph.Mercy HealthMiscellaneous Test 6Gamma Fraction 1FPremier Health Miami Valley Hospital SouthMiscellaneous Test CommentReviewed by Lily Lindsay M.D., Ph.Mercy HealthPhosphorus Level2.5 mg/dLLow2.7-4.8 [facility] HospitalProtein Electrophoresis InterpretOhiohealth Shelby HospitalProtein Electrophoresis NoteAn M protein is identified on protein electrophoresis.AbnormalNo definitive M protein is identified on protein electrophoresis.[facility] Hospitalerum ImmunofixationM protein is present.AbnormalNo M protein is identified.[facility] HospitalNucleated RBC Auto (Bld) [#/Vol]on 57-37-3590Ceigcmxnh RBC (Bld) [#/Vol] Nucleated erythrocytes [#/volume] in Blood by Automated count<0.01[facility] HospitalNucleated erythrocytes [Presence] in Blood by Automated counton 63-00-4749Rvxucvmjy RBC Auto Ql (Bld)Nucleated erythrocytes [Presence] in Blood by Automated countOhiohealth Shelby HospitalPROTEIN ELECTROPHORESIS SERUM (P)on 85-81-9818Dhwfrsu [Mass/Vol]3.57 g/dLNormal3.43-5.41 [facility] on above:Order Comment: Specimen Type: BLOOD SPECIMENOrdering Facility: [facility] Address:[address] [place], [place] [address]Performed By: #### [id number] ####[facility] LABIA [id number] [place] [address] [place] AMERICAAlpha 1 globulin Elph [Mass/Vol]0.29 g/dLNormal0.18-0.43[facility] on above:Order Comment: Specimen Type: BLOOD SPECIMENOrdering Facility: [facility] Address:[address] [place], [place] [address]Performed By: #### [id number] ####[facility] LABIA [id number] [place] [address] [place] Alpha 2 globulin Elph [Mass/Vol]0.77 g/dLNormal0.42-0.98[facility] on above:Order Comment: Specimen Type: BLOOD SPECIMENOrdering Facility: [facility] Address:[address] [place], [place] [address]Performed By: #### [id number] ####[facility] LABIA [id number] [place] [address] [place] Beta globulin Elph [Mass/Vol]0.96 g/dLNormal0.61-1.17[facility] Comment on above:Order Comment: Specimen Type: BLOOD SPECIMENOrdering Facility: [facility] Address:[address] [place] [address] Performed By: #### [id number] ####[facility] LABCLIA [id number] [place] [address] [place] Gamma globulin Elph [Mass/Vol]1.42 g/dLNormal0.53-1.51[facility] Comment on above:Order Comment: Specimen Type: BLOOD SPECIMENOrdering Facility: [facility] Address:[address] [place] [address] Performed By: #### [id number] ####[facility] LABCLIA [id number] [place] [address] [place] INTERPRETATION COMMENT FOR PROTEIN ELECTROPHORESISSee separate immunofixation report for characterization of monoclonal gammopathy.NormalOhioHealth [facility] on above:Order Comment: Specimen Type: BLOOD SPECIMENOrdering Facility: [facility] Address:[address] [place], [place] [address]Performed By: #### [id number] ####[facility] LABCLIA [id number] [place] [address] [place] M-PROTEIN LOCATIONGamma Fraction 1NormalProtestant Hospitalment on above:Order Comment: Specimen Type: BLOOD SPECIMENOrdering Facility: [facility] Address:[address] [place], [place] [address]Performed By: #### [id number] ####[facility] LABCLIA [id number] [place] [address] [place] AMERICAProtein Fractions [Interp]An M protein is identified on protein electrophoresis.AbnormalNo definitive M protein is identified on protein electrophoresis.[facility] on above:Order Comment: Specimen Type: BLOOD SPECIMENOrdering Facility: [facility] Address:[address] [place], [place] [address]Performed By: #### [id number] ####[facility] LABCLIA [id number] [place] [address] [place] Protein.monoclonal Elph [Mass/Vol]0.60 g/dLHigh<=0.00[facility] Comment on above:Order Comment: Specimen Type: BLOOD SPECIMENOrdering Facility: [facility] Address:[address] [place] [address] Performed By: #### [id number] ####[facility] LABCLIA [id number] [place] [address] [place] SPE STAFF REVIEWReviewed by Lily Lindsay M.D., Ph.DNormalProtestant Hospitalment on above:Order Comment: Specimen Type: BLOOD SPECIMENOrdering Facility: [facility] Address:[address] [place], [place] [address]Performed By: #### [id number] ####[facility] LABIA [id number] [place] [address] [place] Phosphate SerPl-mCncon 42-64-5223Lkdwhslpu [Mass/Vol]2.5 mg/dLLow2.7-4.8 [facility] HospitalComment on above:Order Comment: Specimen Type: BLOOD SPECIMENOrdering Facility: [facility] Address:[address] [place], [place] [address]Performed By: #### 3084-1, 11055-8, 2777-1, 2532-0 ####[facility] LABCLIA [id number] [place], [place] [address]Kuskpdvn mean volume Auto (Bld) [Entitic vol]on 00-91-8723Labjennb mean volume (Bld) [Entitic vol]Platelet mean volume [Entitic volume] in Blood by Automated count9.0-12.7FPremier Health Miami Valley Hospital South Platelets Auto (Bld) [#/Vol]on 04-88-9051Wvswskavl (Bld) [#/Vol]Platelets [#/volume] in Blood by Automated evmka872-661VivgkiorpOhiohealth Shelby Hospital Prot SerPl-mCncon 16-03-8304Zrkopqe [Mass/Vol]7.0 g/dLNormal6.3-8.0[facility] HospitalComascension providence hospital on above:Order Comment: Specimen Type: BLOOD SPECIMENOrdering Facility: [facility] Address:[address] [place], [place] [address]Performed By: #### 1952-1, 2885-2 ####[facility] LABCLIA [id number] [facility] [id number] STATES AMERICAPerformed By: #### 3084-1, 06098-2, 2777-1, 2532-0 ####[facility] LABCLIA [id number] [place], [place] [address]Qibpqnl [Mass/volume] in Serum or Plasmaon 05-10-2024 Protein [Mass/Vol]Protein [Mass/volume] in Serum or Plasma6.3-8.0[facility] HospitalRBC Auto (Bld) [#/Vol]on 65-15-9517YUK (Bld) [#/Vol] Erythrocytes [#/volume] in Blood by Automated count4.20-6.00[facility] Hospitalerum ionized calcium measurement using ion specific electrode (mass/volume)on 84-44-7600Wgtzphs.ionized ISE [Mass/Vol]Serum ionized calcium measurement using ion specific electrode (mass/volume)1.08-1.30[facility] Hospitalerum or plasma alpha 1 globulin measurement by electrophoresis (mass/volume)on 38-67-6582Tpuri 1 globulin Elph [Mass/Vol]Serum or plasma alpha 1 globulin measurement by electrophoresis (mass/volume)0.18-0.43 [facility] Hospitalerum or plasma alpha 2 globulin measurement by electrophoresis (mass/volume)on 54-49-4021Kqszg 2 globulin Elph [Mass/Vol]Serum or plasma alpha 2 globulin measurement by electrophoresis (mass/volume) 0.42-0.98[facility] Hospitalerum or plasma anion gap determinationon 91-94-9633Nyeah gap [Moles/Vol]Serum or plasma anion gap determination-[facility] Hospitalerum or plasma beta globulin measurement by electrophoresis (mass/volume)on 42-94-4887Sxtc globulin Elph [Mass/Vol]Serum or plasma beta globulin measurement by electrophoresis (mass/volume)0.61-1.17[facility] Hospitalerum or plasma tidt-3-unizmgjihdmoq measurement (mass/volume)on 07-09-4108Nfop-2-Microglobulin [Mass/Vol]Serum or plasma htoe-5-elgbtabdwarug measurement (mass/volume)High<3.1 [facility] HospitalComment on above:Beta-2 Microglobulin test is performed using the [employer] immunoturbidimetric method. Results obtained with different methods or kits cannot be used interchangeably.Serum or plasma gamma globulin measurement by electrophoresis (mass/volume)on 05-10-2024 Gamma globulin Elph [Mass/Vol]Serum or plasma gamma globulin measurement by electrophoresis (mass/volume)0.53-1.51[facility] HospitalUrate SerPl-mCncon 76-25-7477Ovelq [Mass/Vol]5.3 mg/dLNormal4.0-8.1ClevelFirstHealthComment on above:Order Comment: Specimen Type: BLOOD SPECIMENOrdering Facility: [facility] Address:[address] [place], [place] [address]Performed By: #### 3084-1, 04644-7, 2777-1, 2532-0 ####[facility] LABCLIA [id number] [place], [place] [address]ZUVCGTpv 03-53-8648QVOMAJOjwantQscixpxtn Clinic ClevelandAlbumin [Mass/volume] in Serum or Plasmaon 18-11-9020Iloajhr [Mass/Vol]Albumin [Mass/volume] in Serum or Plasma 3.43-5.41[facility] HospitalB2 Microglob SerPl-mCncon 02-02-2024 Ffoq-5-Dxnabaucmpqvf [Mass/Vol]3.3 ug/mLHigh<3.1CMercy Health St[facility] Comment on above:Order Comment: Specimen Type: BLOOD SPECIMENOrdering Facility: [facility] Address:[address] [place], [place] [address]Result Comment: Beta-2 Microglobulin test is performed using the [employer] immunoturbidimetric method. Results obtained with different methods or kits cannot be used interchangeably.Performed By: #### 1952-1, 2885-2 ####[facility] LABCLIA [id number] [place] CITYDES[place]05AAFOEFNYZBRENT [place] [id number] [place] OF AMERICABasophils Auto (Bld) [#/Vol]on 38-10-0310Uiyjxjhsh (Bld) [#/Vol]Automated basophil count<0.11[facility] Basophils/100 WBC Auto (Bld)on 84-31-5813Bchtuaxqt/100 WBC (Bld)Automated basophil %[facility] HospitalBlood manual differential comment interpretation narrativeon 83-38-3092Znhkei differential comment Augie (Bld) [Interp]Blood manual differential comment interpretation narrativeOhiohealth Shelby HospitalCBC W Auto Differential panel (Bld)on 96-63-6274Aeoyfobnh (Bld) [#/Vol]0.03 10*3/uLNormal<0.11CRiverside Methodist Hospital on above: Order Comment: Specimen Type: BLOOD SPECIMENOrdering Facility: [facility] Address:[address] [place], [place] [address]Performed By: #### 82262- 8 ####[facility] LABCLIA [id number] [place], [place] [address]Rgjslpnxw/100 WBC (Bld)0.5 %NormalOhioHealth Arthur [facility] on above:Order Comment: Specimen Type: BLOOD SPECIMENOrdering Facility: [facility] Address:[address] [place], [place] [address]Performed By: #### 00912-4 ####[facility] LABCLIA [id number] [place], [place] [address]Pavfhcavxiew cell count method Nom (Bld)AutoNormalCRiverside Methodist Hospital on above:Order Comment: Specimen Type: BLOOD SPECIMENOrdering Facility: [facility] Address:[address] [place], [place] [address]Performed By: #### 15049-8 ####[facility] LABCLIA [id number] [place], [place] [address]Iztwkszsjqr (Bld) [#/Vol]0.12 10*3/uLNormal<0.46[facility] on above:Order Comment: Specimen Type: BLOOD SPECIMENOrdering Facility: [facility] Address:[address] [place], [place] [address]Performed By: #### 43861-3 ####[facility] LABCLIA [id number] [place], [place] [address]Mmskabmnfbo/100 WBC (Bld)1.9 %NormalOhioHealth Arthur G.[facility]. [facility], [facility], Cancer [facility] on above:Order Comment: Specimen Type: BLOOD SPECIMENOrdering Facility: [facility] Address:[address] [place], [place] [address]Performed By: #### 13262-7 ####[facility] LABCLIA [id number] [place], [place] [address]Ccujsoipnur distribution width (RBC) [Ratio]12.3 %Normal 11.5-15.0[facility] on above:Order Comment: Specimen Type: BLOOD SPECIMENOrdering Facility: [facility] Address:[address] [place], [place] [address]Performed By: #### 05254-4 ####[facility] LABIA [id number] [place] [address] Hematocrit (Bld) [Volume fraction]40.7 %Yarbvr82.0-51.0[facility] on above:Order Comment: Specimen Type: BLOOD SPECIMENOrdering Facility: [facility] Address:[address] [place], [place] [address]Performed By: #### 50522-6 ####[facility] LABIA [id number] [place], [place] [address]Hzulfgotkh (Bld) [Mass/Vol]13.8 g/vIEhwefo61.0-17.0[facility] on above:Order Comment: Specimen Type: BLOOD SPECIMENOrdering Facility: [facility] Address:[address] [place], [place] [address]Performed By: #### 81263-7 ####[facility] LABCLIA [id number] [place], [place] [address]Vidkcntn granulocytes (Bld) [#/Vol]10*3/uLNormal<0.10 [facility] on above:Order Comment: Specimen Type: BLOOD SPECIMENOrdering Facility: [facility] Address:[address] [place], [place] [address]Performed By: #### 25388-4 ####[facility] LABCLIA [id number] [place], [place] [address]Vxxadmvn granulocytes/100 WBC (Bld)0.2 %[facility] on above: Order Comment: Specimen Type: BLOOD SPECIMENOrdering Facility: [facility] Address:[address] [place], [place] [address]Performed By: #### 06236- 8 ####[facility] LABCLIA [id number] [place], [place] [address]Abkbzbfzuza (Bld) [#/Vol]1.48 10*3/uLNormal1.00-4.00 [facility] on above:Order Comment: Specimen Type: BLOOD SPECIMENOrdering Facility: [facility] Address:[address] [place], [place] [address]Performed By: #### 49898-2 ####[facility] LABCLIA [id number] [place], [place] [address]Rftymxmkmfg/100 WBC (Bld)23.9 %[facility] on above:Order Comment: Specimen Type: BLOOD SPECIMENOrdering Facility: [facility] Address:[address] [place], [place] [address]Performed By: #### 52134-9 ####[facility] LABCLIA [id number] [place], [place] [address]WHR (RBC) [Entitic mass]30.8 saFyebkf93.0-34.0[facility] on above:Order Comment: Specimen Type: BLOOD SPECIMENOrdering Facility: [facility] Address:[address] [place], [place] [address]Performed By: #### 30313-5 ####[facility] LABCLIA [id number] [place], [place] [address]QRSW (RBC) [Mass/Vol]33.9 g/sMXkpxgg16.5-36.0[facility] on above: Order Comment: Specimen Type: BLOOD SPECIMENOrdering Facility: [facility] Address:[address] [place], [place] [address]Performed By: #### 03731- 8 ####[facility] LABCLIA [id number] [place], [place] [address]WVG (RBC) [Entitic vol]90.8 dOActukz72.0-100.0[facility] on above:Order Comment: Specimen Type: BLOOD SPECIMENOrdering Facility: [facility] Address:[address] [place], [place] [address]Performed By: #### 37377-6 ####[facility] LABCLIA [id number] [place], [place] [address]Nazwhrojf (Bld) [#/Vol]0.56 10*3/uLNormal<0.87[facility] on above:Order Comment: Specimen Type: BLOOD SPECIMENOrdering Facility: [facility] Address:[address] [place], [place] [address]Performed By: #### 39847- 8 ####[facility] LABCLIA [id number] [place], [place] [address]Rpywmzfdm/100 WBC (Bld)9.1 %NormalOhioHealth Arthur [facility] on above:Order Comment: Specimen Type: BLOOD SPECIMENOrdering Facility: [facility] Address:[address] [place], [place] [address]Performed By: #### 68933-4 ####[facility] LABCLIA [id number] [place], [place] [address]Ryqrovdcfeh (Bld) [#/Vol]3.98 10*3/uLNormal1.45-7.50[facility] on above:Order Comment: Specimen Type: BLOOD SPECIMENOrdering Facility: [facility] Address:[address] [place], [place] [address]Performed By: #### 62689-2 ####[facility] LABCLIA [id number] [place], [place] [address]Orajnhkgvhi/100 WBC (Bld)64.4 %NormalOhioHealth Arthur [facility] on above:Order Comment: Specimen Type: BLOOD SPECIMENOrdering Facility: [facility] Address:[address] [place], [place] [address]Performed By: #### 82755-8 ####[facility] LABCLIA [id number] [place], [place] [address]Kuuxmirur RBC (Bld) [#/Vol] 10*3/uLNormal<0.01[facility] on above:Order Comment: Specimen Type: BLOOD SPECIMENOrdering Facility: [facility] Address:[address] [place], [place] [address]Performed By: #### 93500-4 ####[facility] LABCLIA [id number] [place], [place] [address]Drqelivqr RBC/100 WBC (Bld) [Ratio]0.0 /100 WBCNormal [facility] on above:Order Comment: Specimen Type: BLOOD SPECIMENOrdering Facility: [facility] Address:[address] [place], [place] [address]Performed By: #### 59547-8 ####[facility] LABCLIA [id number] [place], [place] [address]Ntszkyim mean volume (Bld) [Entitic vol]9.7 fLNormal9.0-12.7CRiverside Methodist Hospital on above:Order Comment: Specimen Type: BLOOD SPECIMENOrdering Facility: [facility] Address:[address] [place] [address] Performed By: #### 27943-3 ####[facility] LABIA [id number] [place], [place] [address]Nucddtqyc (Bld) [#/Vol]181 10*3/mERcgjcy047-662MgiysxntsOhioHealth [facility] on above:Order Comment: Specimen Type: BLOOD SPECIMENOrdering Facility: [facility] Address:[address] [place], [place] [address]Performed By: #### 89080-0 ####[facility] LABIA [id number] [place], [place] [address]LMQ (Bld) [#/Vol]4.48 10*6/uLNormal4.20-6.00[facility] on above:Order Comment: Specimen Type: BLOOD SPECIMENOrdering Facility: [facility] Address:[address] [place], [place] [address]Performed By: #### 93902-6 ####[facility] LABIA [id number] [place], [place] [address]BXY (Bld) [#/Vol]6.18 10*3/uLNormal3.70-11.00[facility] on above: Order Comment: Specimen Type: BLOOD SPECIMENOrdering Facility: [facility] Address:[address] [place], [place] [address]Performed By: #### 24037- 8 ####[facility] LABIA [id number] [place], [place] [address]Opaxmaq.ionized [Moles/Vol]on 77-01-7572Pjgshsw.ionized (Bld) [Mass/Vol]1.27 mmol/LNormal1.08-1.30[facility] on above:Order Comment: Specimen Type: BLOOD SPECIMENOrdering Facility: [facility] Address:[address] [place], [place] [address]Performed By: #### ####[facility] LABCLIA [id number] [address]ETCalcium.ionized adjusted to pH 7.4 (Bld) [Moles/Vol]1.23 mmol/LNormal1.08-1.30[facility] on above:Order Comment: Specimen Type: BLOOD SPECIMENOrdering Facility: [facility] Address:[address] [place], [place] [address]Performed By: #### ####[facility] LABCLIA [id number] [address] [facility] Comprehensive metabolic 2000 panelon 47-47-2730Hvsypxx [Mass/Vol]3.9 g/dLNormal 3.9-4.9CRiverside Methodist Hospital on above:Order Comment: Specimen Type: BLOOD SPECIMENOrdering Facility: [facility] Address:[address] [place], [place] [address]Performed By: #### 2777-1, 85489-7, 3084-1, 2532-0 ####[facility] LABCLIA [id number] [place], [place] [address]LHY [Catalytic activity/Vol]84 U/JSzpqkl88-536ImgbxauatOhioHealth Arthur [facility] on above:Order Comment: Specimen Type: BLOOD SPECIMENOrdering Facility: [facility] Address:[address] [place], [place] [address]Performed By: #### 2777-1, 91260-2, 3084-1, 2532-0 ####[facility] LABCLIA [id number] [place], [place] [address]XTT [Catalytic activity/Vol]20 U/EAwyqzq16-44KlqysgzdtOhioHealth Arthur [facility] on above:Order Comment: Specimen Type: BLOOD SPECIMENOrdering Facility: [facility] Address:[address] [place], [place] [address]Performed By: #### 2777-1, 95261-8, 3084-1, 2532-0 ####[facility] LABCLIA [id number] [place], [place] [address]Vygch gap [Moles/Vol]12 mmol/LNormal8-15[facility] on above:Order Comment: Specimen Type: BLOOD SPECIMENOrdering Facility: [facility] Address:[address] [place], [place] [address]Performed By: #### 2777-1, 56089-4, 3084-, 2532-0 ####[facility] LABCLIA [id number] [place], [place] [address]BBQ [Catalytic activity/Vol]28 U/XKodaeo80-16UzlcsnnlvOhioHealth Arthur [facility] on above:Order Comment: Specimen Type: BLOOD SPECIMENOrdering Facility: [facility] Address:[address] [place], [place] [address]Performed By: #### 2777-1, 52997-2, 4-, 2532-0 ####[facility] LABCLIA [id number] [place], [place] [address]Vjrhgfwmi [Mass/Vol]0.4 mg/dL Normal0.2-1.3CRiverside Methodist Hospital on above:Order Comment: Specimen Type: BLOOD SPECIMENOrdering Facility: [facility] Address:[address] [place], [place] [address]Performed By: #### 2777-1, 79256-0, 3084-, 2532- 0 ####[facility] LABCLIA [id number] [place], [place] [address]Tdyyykd [Mass/Vol]9.2 mg/dLNormal8.5-10.2CRiverside [facility] on above:Order Comment: Specimen Type: BLOOD SPECIMENOrdering Facility: [facility] Address:[address] [place] [id number] By: #### 2777-1, 24564-2, 3084-1, 2532-0 ####[facility] LABCLIA [id number] [place], [place] [address]Gqmpftdg [Moles/Vol]102 mmol/EApdipl19-129LbgpnhvpnOhioHealth [facility] on above: Order Comment: Specimen Type: BLOOD SPECIMENOrdering Facility: [facility] [facility] Address:[address] [place] [address]Qtzmoeesf By: #### 2777- 1, 52212-4, 3084-1, 2532-0 ####[facility] LABCLIA [id number] [place], [place] [address]DU3 [Moles/Vol]21 mmol/XYtg84-31 [facility] on above:Order Comment: Specimen Type: BLOOD SPECIMENOrdering Facility: [facility] Address:[address] [place] [address]Sbyfwnywz By: #### 2777-1, 89558-4, 3084-1, 2532-0 ####[facility] LABCLIA [id number] [place], [place] [address]Yszgktfzog [Mass/Vol]1.28 mg/dLHigh0.73-1.22[facility] on above:Order Comment: Specimen Type: BLOOD SPECIMENOrdering Facility: [facility] Address:[address] [place], [place] [address]Performed By: #### 2777-1, 72092-2, 3084-1, 2532-0 ####[facility] LABCLIA [id number] [place], [place] [address]Lgqioqnpjq and Glomerular filtration rate.predicted panel (S/P/Bld)56 mL/min/1.73m???Low>=60[facility] on above: Order Comment: Specimen Type: BLOOD SPECIMENOrdering Facility: [facility] Address:[address] [place], [place] [address]Khnlry Comment: Estimated Glomerular Filtration Rate (eGFR) is [...] accurately reflect actual GFR.Performed By: #### 2777-1, 25586-4, 3083-03, 2531-0 ####[facility] LABCLIA [id number] [place], [place] [address]Uawikin [Mass/Vol]261 mg/dERzrl71-99 [facility] on above:Order Comment: Specimen Type: BLOOD SPECIMENOrdering Facility: [facility] Address:[address] [place] [address]Yjnang Comment: The [place] Diabetes Association (ADA) provides guidance for cutoff [...] Standards of Medical Care in Diabetes 2016, [place] Diabetes Association. Diabetes Care. 2016.39(Suppl 1).Performed By: #### 2777-1, 43794-8, 3083-03, 2531-0 ####[facility] LABCLIA [id number] [place], [place] [address]Zdluokxis [Moles/Vol]4.1 mmol/L Normal3.7-5.1[facility] on above:Order Comment: Specimen Type: BLOOD SPECIMENOrdering Facility: [facility] Address:[address] [place], [place] [address]Sdaivszeo By: #### 2777-1, 97810-4, 3084-1, 2532- 0 ####[facility] LABCLIA [id number] [place], [place] [address]Jxbjqir [Mass/Vol]7.1 g/dLNormal6.3-8.0[facility] on above:Order Comment: Specimen Type: BLOOD SPECIMENOrdering Facility: [facility] Address:[address] [place], [place] [address]Performed By: #### 2777-1, 98797-7, 3084-1, 2532-0 ####[facility] LABCLIA [id number] [place], [place] [address]Iwlnyo [Moles/Vol]135 mmol/DMwg492-715MyokhoawaOhioHealth [facility] on above:Order Comment: Specimen Type: BLOOD SPECIMENOrdering Facility: [facility] Address:[address] [place], [place] [address]Performed By: #### 2777- 1, 50718-7, 3084-1, 2532-0 ####[facility] LABCLIA [id number] [place], [place] [address]Ygjk nitrogen [Mass/Vol]15 mg/dL Normal9-24[facility] on above:Order Comment: Specimen Type: BLOOD SPECIMENOrdering Facility: [facility] Address:[address] [place], [place] [address]Performed By: #### 2777-1, 28504-2, 3084-1, 2532- 0 ####[facility] LABCLIA [id number] [place], [place] [address]Tyksjsehgpf/100 WBC Auto (Bld)on 02-02-2024 Eosinophils/100 WBC (Bld)Automated eosinophil %[facility] Erythrocyte distribution width Auto (RBC) [Ratio]on 38-02-3835Scdnjanuqwd distribution width (RBC) [Ratio]Erythrocyte distribution width [Ratio] by Automated count11.5-15.0Firsarasotas Regional Medical CenterHematocrit Auto (Bld) [Volume fraction]on 60-18-2279Kfbwoguabo (Bld) [Volume fraction]Hematocrit [Volume Fraction] of Blood by Automated count39.0-51.0[facility] HospitalHemoglobin [Mass/volume] in Bloodon 47-82-7096Ultedgwgss (Bld) [Mass/Vol] Hemoglobin [Mass/volume] in Blood13.0-17.0[facility] IMMUNOFIXATION SCREEN, SERUMon 95-42-4995GIQDHHNXNUUWAK (MPA)Atypical restricted bands are present in the IgG and kappa regions. Consistent with IgG kappa monoclonal gammopathy.NormalOhioHealth [facility] on above:Order Comment: Specimen Type: BLOOD SPECIMENOrdering Facility: [facility] Address:[address] [place], [place] [address]Performed By: #### IFESC ####[facility] LABCLIA [id number] [place] [address] [place] OF AMERICAMPA RESULTM protein is present. AbnormalNo M protein is identified.[facility] on above: Order Comment: Specimen Type: BLOOD SPECIMENOrdering Facility: [facility] Address:[address] [place], [place] [address]Performed By: #### IFESC ####[facility] LABCLIA [id number] [place] [address] [place] OF AMERICASTAFF REVIEW (MPA)Reviewed by Dr. David Moss MDNormalCRiverside Methodist Hospital on above:Order Comment: Specimen Type: BLOOD SPECIMENOrdering Facility: [facility] Address:[address] [place], [place] [address]Performed By: #### IFESC ####[facility] LABCLIA [id number] [place] [address] [place] AMERICAIMMUNOGLOBULINS,IGG,IGA,IGMon 11-98-6805JqM [Mass/Vol]258 mg/zKKopknc46-118Sgttbtzyg Clinic ClevelandComment on above:Order Comment: Specimen Type: BLOOD SPECIMENOrdering Facility: [facility] Address:[address] [place] [address] Performed By: #### SERIMM ####[facility] LABCLIA [id number] [place] [address] [place] IgG [Mass/Vol]1277 mg/bBNuyfas845-5431JgjkvtolvAvita Health System Galion HospitalComment on above:Order Comment: Specimen Type: BLOOD SPECIMENOrdering Facility: [facility] Address:[address] [place], [place] [address]Performed By: #### SERIMM ####[facility] LABCLIA [id number] [place] [address] [place] AMERICAIgM [Mass/Vol]316 mg/dL Syhm82-573XjyahzikwAvita Health System Galion HospitalComment on above:Order Comment: Specimen Type: BLOOD SPECIMENOrdering Facility: [facility] Address:[address] [place], [place] [address]Performed By: #### SERIMM ####[facility] LABCLIA [id number] [place] [address] [place] AMERICAIgA [Mass/volume] in Serum or Plasmaon 22-33-4284LwY [Mass/Vol]IgA [Mass/volume] in Serum or Valbwj69-399WbphndidxOhiohealth Shelby HospitalIgG [Mass/volume] in Serum or Plasmaon 87-50-1584VpM [Mass/Vol]IgG [Mass/volume] in Serum or Brzhui979-3865VqlyrruukOhiohealth Shelby HospitalIgM [Mass/volume] in Serum or Plasmaon 88-74-9739SlF [Mass/Vol]IgM [Mass/volume] in Serum or DsdjbvBntt21-456AxoiryulgOhiohealth Shelby HospitalImmunoglobulin light chains.kappa.free [Mass/volume] in Serumon 19-26-4676Hrgfzvbstxpjde light chains.kappa.free (S) [Mass/Vol]Immunoglobulin light chains.kappa.free [Mass/volume] in SerumHigh3.3-19.4FPremier Health Miami Valley Hospital SouthComment on above:Rarely, increased serum free light chains levels may not be detected or accurately quantified due to prozone phenomenon or in high viscosity samples using this immunoturbidimetric assay. Correlation with other laboratory results and clinical findings is recommended. The [place] Free Light Chain was performed using the Binding Site Optilite immunoturbidimetric method. Result obtained with different assay methods or kits cannot be used interchangeably.Immunoglobulin light chains.kappa.free/Immunoglobulin light chains.lambda.free [Bowen 82-30-2272Ehuijsmxhnjgkl light chains.kappa.free/Immunoglobulin light chains.lambda.free (S) [Mass ratio]Immunoglobulin light chains.kappa.free/Immunoglobulin light chains.lambda.free [MassHigh0.26-1.65 [facility] HospitalImmunoglobulin light chains.lambda.free [Mass/volume] in Serum or Plasmaon 73-72-3357Zwsvaqcfrmykrg light chains.lambda.free [Mass/Vol]Immunoglobulin light chains.lambda.free [Mass/volume] in Serum or PlasmaHigh5.7-26.3FPremier Health Miami Valley Hospital South Comment on above:Rarely, increased serum free light [...] or kits cannot be used interchangeably. KAPPA/COTA,FREE,SERon 89-32-2961Yeeoyasyyzzfwv light chains.kappa.free (S) [Mass/Vol]109.2 mg/LHigh3.3-19.4CPaulding County Hospitalment on above:Order Comment: Specimen Type: BLOOD SPECIMENOrdering Facility: [facility] Address:[address] [place] [address]Kliiwi Comment: Rarely, increased serum free light chains levels may not be detected or accurately q uantified due to prozone phenomenon or in high viscosity samples using this immunoturbidimetric assay. Correlation with other laboratory results and clinical findings is recommended.The [place] Free Light Chain was performed using the Binding Site Optilite immunoturbidimetric method. Result obtained with different assay methods or kits cannot be used interchangeably.Performed By: #### KLFRS ####[facility] LABCLIA [id number] [place] [address] [place] AMERICAImmunoglobulin light chains.kappa/Immunoglobulin light chains.lambda (S) [Mass ratio]2.42High 0.26-1.65[facility] on above:Order Comment: Specimen Type: BLOOD SPECIMENOrdering Facility: [facility] Address:[address] [place], [place] [address]Performed By: #### KLFRS ####[facility] LABIA [id number] [place] [address] [place] AMERICAImmunoglobulin light chains.lambda.free [Mass/Vol]45.1 mg/LHigh5.7-26.3CRiverside Methodist Hospital on above:Order Comment: Specimen Type: BLOOD SPECIMENOrdering Facility: [facility] Address:[address] [place], [place] [address]Result Comment: Rarely, increased serum free light chains [...] cannot be used interchangeably.Performed By: #### KLFRS ####[facility] LABIA [id number] [place] [address] [place] OF AMERICALDH SerPl-cCncon 12-17-7021GMP [Catalytic activity/Vol]136 U/XYsyhfa277-363YdmaelbiqOhioHealth [facility] on above:Order Comment: Specimen Type: BLOOD SPECIMENOrdering Facility: [facility] Address:[address] [place], [place] [address]Performed By: #### 2777-1, 45944-4, 3084-1, 2532-0 ####[facility] LABCLIA [id number] [place] [address] Laboratory - Chemistry and Chemistry - challengeon 94-61-1340Gakzucs [Mass/Vol] 3.9 g/dL3.9-4.9[facility] HospitalALP [Catalytic activity/Vol]84 U/U99-392CnxuzqepuOhiohealth Shelby HospitalALT [Catalytic activity/Vol]20 U/L 10-54[facility] HospitalAST [Catalytic activity/Vol]28 U/L14-40 [facility] HospitalBilirubin [Mass/Vol]0.4 mg/dL0.2-1.3FPremier Health Miami Valley Hospital SouthCalcium [Mass/Vol]9.2 mg/dL8.5-10.2FPremier Health Miami Valley Hospital SouthChloride [Moles/Vol]102 mmol/N41-332AdkeofwgoOhiohealth Shelby HospitalCO2 [Moles/Vol]21 mmol/FTbj29-31UwgmesfaoOhiohealth Shelby Hospital Creatinine [Mass/Vol]1.28 mg/dLHigh0.73-1.22[facility] Glucose [Mass/Vol]261 mg/dISnhk94-49WylvwxhexOhiohealth Shelby HospitalComment on above:The [place] Diabetes Association (ADA) provides guidance for cutoff [...] diabetes.Reference: Standardsof Medical Care in Diabetes 2016, [place] Diabetes Association. Diabetes Care. 2016.39(Suppl 1).LDH [Catalytic activity/Vol]136 U/C809-411 [facility] HospitalPotassium [Moles/Vol]4.1 mmol/L3.7-5.1FPremier Health Miami Valley Hospital SouthProtein [Mass/Vol]0.51 g/dLHigh<=0.00Morrow County Hospitalodium [Moles/Vol]135 mmol/IPnz823-322KcvfbcsspOhiohealth Shelby HospitalUrate [Mass/Vol]4.9 mg/dL4.0-8.1FPremier Health Miami Valley Hospital SouthUrea nitrogen [Mass/Vol]15 mg/dL9-24[facility] HospitalLaboratory - Hematology and Cell countson 99-01-7646Yqeuonsycjs (Bld) [#/Vol]0.12 10*3/uL <0.46[facility] HospitalImmature granulocytes/100 WBC (Bld)0.2 % [facility] HospitalLeukocytes [#/volume] corrected for nucleated erythrocytes in Blood by Automated counon 89-96-7292IYE corrected for nucl RBC Auto (Bld) [#/Vol]Leukocytes [#/volume] corrected for nucleated erythrocytes in Blood by Automated coun3.70-11.00[facility] HospitalLymphocytes Auto (Bld) [#/Vol]on 85-28-9592Yytxfiysynh (Bld) [#/Vol]Lymphocytes [#/volume] in Blood by Automated count1.00-4.00[facility] Lymphocytes/100 WBC Auto (Bld)on 02-57-0611Nynaoksfadx/100 WBC (Bld) Lymphocytes/100 leukocytes in Blood by Automated countCleveland Clinic Children's Hospital for RehabilitationH Auto (RBC) [Entitic mass]on 61-87-5579XQU (RBC) [Entitic mass]MCH [Entitic mass] by Automated count26.0-34.0[facility] HospitalMCHC Auto (RBC) [Mass/Vol]on 25-83-6017HTGJ (RBC) [Mass/Vol]MCHC [Mass/volume] by Automated count30.5-36.0[facility] HospitalMCV Auto (RBC) [Entitic vol]on 17-98-4240MLX (RBC) [Entitic vol]MCV [Entitic volume] by Automated count 80.0-100.0[facility] HospitalMonocytes Auto (Bld) [#/Vol]on 02-22-0095Zfyycuhct (Bld) [#/Vol]Automated blood monocyte count<0.87[facility] HospitalMonocytes/100 WBC Auto (Bld)on 29-94-1804Eqpwhghth/100 WBC (Bld)Automated monocyte %[facility] HospitalNeutrophils Auto (Bld) [#/Vol]on 33-20-9641Mwkaxrslxfi (Bld) [#/Vol]Neutrophils [#/volume] in Blood by Automated count1.45-7.50[facility] Neutrophils/100 WBC Auto (Bld)on 06-63-3936Oohxghliwyg/100 WBC (Bld)Automated neutrophil %[facility] HospitalNo Panel Informationon 02-02-2024 Estimated GFR (CKD-EPI)56 mL/min/1.73m???Low>=60[facility] HospitalComment on above:Estimated Glomerular Filtration Rate (eGFR) is calculated using the 2020 CKD-EPI creatinine equation. This equation utilizes serum creatinine, sex, and age as parameters. The creatinine assay has traceable calibration to isotope dilution-mass spectrometry. Refer to KDIGO guidelines for clinical interpretation. In patients with unstable renal function, e.g. those with acute kidney injury, the eGFRmay not accurately reflect actual GFR.Immature Granulocyte # (Auto)<0.03 k/uL<0.10[facility] Immunofixation InterpretationOhiohealth Shelby HospitalIonized Calcium (pH Adjusted)1.23 mmol/L1.08-1.30[facility] HospitalLeuk/Lymph Sign Pathologist (Misc)Reviewed by Dr. David Moss MDOhiohealth Shelby HospitalMiscellaneous Test 6Gamma Fraction 1FPremier Health Miami Valley Hospital SouthMiscellaneous Test CommentReviewed by Dr. David Moss [facility] – JacksonPhosphorus Level2.5 mg/dLLow2.7-4.8[facility] HospitalProtein Electrophoresis InterpretSee commentOhiohealth Shelby HospitalComment on above:M protein is present on the background of a polyclonal immunoglobulin population. Quantitation of the M protein may overestimate the amount of M protein present.See separate immunofixation report forcharacterization of monoclonal gammopathy.Protein Electrophoresis NoteAn M protein is identified on protein electrophoresis.AbnormalNo definitive M protein is identified on protein electrophoresis.Morrow County Hospitalerum ImmunofixationM protein is present.AbnormalNo M protein is identified.[facility] HospitalNucleated RBC Auto (Bld) [#/Vol]on 65-22-7009Dszroaecn RBC (Bld) [#/Vol]Nucleated erythrocytes [#/volume] in Blood by Automated count <0.01[facility] HospitalNucleated erythrocytes [Presence] in Blood by Automated counton 84-66-6041Fcujvelsl RBC Auto Ql (Bld)Nucleated erythrocytes [Presence] in Blood by Automated countOhiohealth Shelby HospitalPROTEIN ELECTROPHORESIS SERUM (P)on 13-34-7018Lrjqmch [Mass/Vol]3.64 g/dL Normal3.43-5.41[facility] on above:Order Comment: Specimen Type: BLOOD SPECIMENOrdering Facility: [facility] Address:[address] [place], [place] [address]Performed By: #### [id number] ####[facility] LABIA [id number] [address] STATES OF [facility] HOSPITALAlpha 1 globulin Elph [Mass/Vol] 0.26 g/dLNormal0.18-0.43[facility] on above:Order Comment: Specimen Type: BLOOD SPECIMENOrdering Facility: [facility] Address:[address] [place], [place] [address]Performed By: #### [id number] ####[facility] LABIA [id number] [address] STATES OF AMERICAAlpha 2 globulin Elph [Mass/Vol]0.73 g/dLNormal0.42-0.98[facility] on above: Order Comment: Specimen Type: BLOOD SPECIMENOrdering Facility: [facility] Address:[address] [place], [place] [address]Performed By: #### [id number] ####[facility] LABIA [id number] [address] STATES OF AMERICABeta globulin Elph [Mass/Vol]0.89 g/dLNormal0.61-1.17[facility] on above: Order Comment: Specimen Type: BLOOD SPECIMENOrdering Facility: [facility] Address:[address] [place], [place] [address]Performed By: #### [id number] ####[facility] LABIA [id number] [place] [address] [place] AMERICAGamma globulin Elph [Mass/Vol]1.28 g/dLNormal0.53-1.51[facility] on above: Order Comment: Specimen Type: BLOOD SPECIMENOrdering Facility: [facility] Address:[address] [place], [place] [address]Performed By: #### [id number] ####[facility] [id number] [place] [address] [place] AMERICAINTERPRETATION COMMENT FOR PROTEIN ELECTROPHORESISNormalCRiverside Methodist Hospital on above: Order Comment: Specimen Type: BLOOD SPECIMENOrdering Facility: [facility] Address:[address] [place], [place] [address]Result Comment: M protein is present on the background of a polyclonal immunoglobulin population. Qu antitation of the M protein may overestimate the amount of M protein present.See separate immunofixation report for characterization of monoclonal gammopathy. Performed By: #### [id number] ####[facility] [id number] [place] [address] [place] M-PROTEIN LOCATIONGamma Fraction 1NormalOhioHealth [facility] on above:Order Comment: Specimen Type: BLOOD SPECIMENOrdering Facility: [facility] Address:[address] [place], [place] [address]Performed By: #### [id number] ####[facility] [id number] [place] [address] [place] AMERICAProtein Fractions [Interp]An M protein is identified on protein electrophoresis.AbnormalNo definitive M protein is identified on protein electrophoresis.[facility] on above:Order Comment: Specimen Type: BLOOD SPECIMENOrdering Facility: [facility] Address:[address] [place], [place] [address]Performed By: #### [id number] ####[facility] [id number] [place] [address] [place] Protein.monoclonal Elph [Mass/Vol]0.51 g/dLHigh<=0.00[facility] Comment on above:Order Comment: Specimen Type: BLOOD SPECIMENOrdering Facility: [facility] Address:[address] [place] [address] Performed By: #### [id number] ####[facility] LABCLIA [id number] [address] STATES OF [place] SPE STAFF REVIEWReviewed by Dr. David Moss MDNormalCMercy Health St. [facility] Comment on above:Order Comment: Specimen Type: BLOOD SPECIMENOrdering Facility: [facility] Address:[address] [place] [address] Performed By: #### [id number] ####[facility] LABCLIA [id number] [address] [place] Phosphate SerPl-mCncon 19-83-8373Xmlddejoc [Mass/Vol]2.5 mg/dLLow2.7-4.8 [facility] HospitalComment on above:Order Comment: Specimen Type: BLOOD SPECIMENOrdering Facility: [facility] Address:[address] [place], [place] [address]Performed By: #### 2777-1, 04191-1, 3084-1, 2532-0 ####[facility] LABCLIA [id number] [place], [place] [address]Ckmetsim mean volume Auto (Bld) [Entitic vol]on 57-75-9678Tkkwuwky mean volume (Bld) [Entitic vol]Platelet mean volume [Entitic volume] in Blood by Automated count9.0-12.7FPremier Health Miami Valley Hospital South Platelets Auto (Bld) [#/Vol]on 03-81-2385Fgdvsekpn (Bld) [#/Vol]Platelets [#/volume] in Blood by Automated -963WtbwyjgwrOhiohealth Shelby Hospital Prot SerPl-mCncon 44-45-8654Yeaantn [Mass/Vol]6.8 g/dLNormal6.3-8.0[facility] on above:Order Comment: Specimen Type: BLOOD SPECIMENOrdering Facility: [facility] Address:[address] [place] [place], [place] [address]Performed By: #### 1952-1, 2885-2 ####[facility] LABCLIA [id number] [address]ACQUELINE LOPEZDESK T22LVBXBUIVFD[place] [address] [place] AMERICAProtein [Mass/volume] in Serum or Plasmaon 01-01-3324Zsxnzpu [Mass/Vol]Protein [Mass/volume] in Serum or Plasma6.3-8.0[facility] Shelby HospitalRBC Auto (Bld) [#/Vol]on 71-67-0618KUO (Bld) [#/Vol]Erythrocytes [#/volume] in Blood by Automated count4.20-6.00[facility] Serum ionized calcium measurement using ion specific electrode (mass/volume)on 47-60-4030Zqpfbyg.ionized ISE [Mass/Vol]Serum ionized calcium measurement using ion specific electrode (mass/volume)1.08-1.30[facility] Serum or plasma alpha 1 globulin measurement by electrophoresis (mass/volume)on 72-43-8387Utlss 1 globulin Elph [Mass/Vol]Serum or plasma alpha 1 globulin measurement by electrophoresis (mass/volume)0.18-0.43[facility] County Hospitalerum or plasma alpha 2 globulin measurement by electrophoresis (mass/volume)on 14-43-0594Nxxac 2 globulin Elph [Mass/Vol]Serum or plasma alpha 2 globulin measurement by electrophoresis (mass/volume)0.42-0.98[facility] Hospitalerum or plasma anion gap determinationon 01-23-8299Xcbae gap [Moles/Vol]Serum or plasma anion gap determination8-15[facility] Hospitalerum or plasma beta globulin measurement by electrophoresis (mass/volume)on 66-47-9241Fasx globulin Elph [Mass/Vol]Serum or plasma beta globulin measurement by electrophoresis (mass/volume)0.61-1.17[facility] Hospitalerum or plasma gdmx-2-rmgxmyzokdakl measurement (mass/volume)on 70-66-1932Bdwf-2-Microglobulin [Mass/Vol]Serum or plasma ptvg-1-kkqvqzsftwnxj measurement (mass/volume)High<3.1FPremier Health Miami Valley Hospital SouthComment on above:Beta-2 Microglobulin test is performed using the [employer] immunoturbidimetric method. Results obtained with different methods or kits cannot be used interchangeably.Serum or plasma gamma globulin measurement by electrophoresis (mass/volume)on 28-25-3902Rvigm globulin Elph [Mass/Vol]Serum or plasma gamma globulin measurement by electrophoresis (mass/volume)0.53-1.51 [facility] HospitalUrate SerPl-mCncon 57-20-4681Vhpbp [Mass/Vol] 4.9 mg/dLNormal4.0-8.1CMercy Health St. Joseph Warren HospitalComment on above:Order Comment: Specimen Type: BLOOD SPECIMENOrdering Facility: [facility] Address:[address] [place], [place] [address]Performed By: #### 2777-1, 78833-4, 3084-1, 2532-0 ####[facility] LABCLIA [id number] [place], [place] [address]Jplvgdh [Mass/volume] in Serum or Plasmaon 11-71-2022Ntexjsy [Mass/Vol]3.56 g/dL3.43-5.41[facility] Basophils Auto (Bld) [#/Vol]on 40-93-3560Giuihdmae (Bld) [#/Vol]0.03 10*3/uL <0.11[facility] HospitalBasophils/100 WBC Auto (Bld)on 11-03-2023 Basophils/100 WBC (Bld)0.5 %[facility] HospitalBlood manual differential comment interpretation narrativeon 76-78-1406Rizlmf differential comment Augie (Bld) [Interp]AutoOhiohealth Shelby HospitalEosinophils/100 WBC Auto (Bld)on 00-42-1310Jricafcawhh/100 WBC (Bld)1.3 %[facility] HospitalErythrocyte distribution width Auto (RBC) [Ratio]on 11-03-2023 Erythrocyte distribution width (RBC) [Ratio]12.9 %11.5-15.0[facility] CenterHematocrit Auto (Bld) [Volume fraction]on 82-19-3176Yqvpmwfjhh (Bld) [Volume fraction]40.3 %39.0-51.0[facility] Hemoglobin [Mass/volume] in Bloodon 19-58-6910Jnjhiafrgq (Bld) [Mass/Vol]13.5 g/dL13.0-17.0[facility] HospitalIgA [Mass/volume] in Serum or Plasmaon 49-35-1201ViM [Mass/Vol]244 mg/nU59-860EyrlaqmndOhiohealth Shelby HospitalIgG [Mass/volume] in Serum or Plasmaon 75-59-4621IuI [Mass/Vol]1253 mg/dL 700-1600Ohio[facility] HospitalIgM [Mass/volume] in Serum or Plasmaon 68-78-8602SaU [Mass/Vol]326 mg/bNGlqv04-922TmxfkvrjmOhiohealth [facility] Hospital Immunoglobulin light chains.kappa.free [Mass/volume] in Serumon 11-03-2023 Immunoglobulin light chains.kappa.free (S) [Mass/Vol]114.9 mg/LHigh3.3-19.4 [facility] HospitalComment on above:Rarely, increased serum free light chains levels may not be detected or accurately quantified due to prozone phenomenon or in high viscosity samples using this immunoturbidimetric assay. Correlation with other laboratory results and clinical findings is recommended. The [place] Free Light Chain was performed using the Binding Site Optilite immunoturbidimetric method. Result obtained with different assay methods or kits cannot be used interchangeably.Immunoglobulin light chains.kappa.free/Immunoglobulin light chains.lambda.free [Bowen 11-03-2023 Immunoglobulin light chains.kappa.free/Immunoglobulin light chains.lambda.free (S) [Mass ratio]2.94Mgrb3.26-1.65[facility] HospitalImmunoglobulin light chains.lambda.free [Mass/volume] in Serum or Plasmaon 11-03-2023 Immunoglobulin light chains.lambda.free [Mass/Vol]49.3 mg/LHigh5.7-26.3FPremier Health Miami Valley Hospital SouthComment on above:Rarely, increased serum free light chains [...] - Chemistry and Chemistry - challenge on 31-29-9677Ekoljlo [Mass/Vol]3.8 g/dLLow3.9-4.9[facility] HospitalALP [Catalytic activity/Vol]84 U/H43-518JxykrutnpOhiohealth Shelby Hospital ALT [Catalytic activity/Vol]26 U/W78-18EyhjobihiOhiohealth Shelby HospitalAST [Catalytic activity/Vol]29 U/M58-08WwabdvhwwOhiohealth Shelby HospitalBilirubin [Mass/Vol]0.4 mg/dL0.2-1.3FPremier Health Miami Valley Hospital SouthCalcium [Mass/Vol]9.7 mg/dL8.5-10.2FPremier Health Miami Valley Hospital SouthChloride [Moles/Vol]104 mmol/L 98-107[facility] HospitalCO2 [Moles/Vol]25 mmol/F35-17LspwkhzstOhiohealth Shelby HospitalCreatinine [Mass/Vol]1.41 mg/dLHigh0.73-1.22[facility] HospitalGlucose [Mass/Vol]280 mg/zUZrmq51-12GtkiasopbOhiohealth Shelby HospitalComment on above:The [place] Diabetes Association (ADA) provides guidance for cutoff [...] diabetes.Reference: Standardsof Medical Care in Diabetes 2016, [place] [employer]. Diabetes Care. 2016.39(Suppl 1).LDH [Catalytic activity/Vol]142 U/E796-832UahdvxazhOhiohealth Shelby HospitalComment on above:Hemolysis present. The origin of the hemolysis, in vitro versus an in vivo hemolytic process, cannot be distinguished via this assay alone. In vitro hemolysis may lead to non-physiological (spurious)elevation in lactate dehydrogenase (LDH) results. The result should be interpreted in context of the clinical setting and other test results. Suggest reorder as clinically indicated.Potassium [Moles/Vol]4.6 mmol/L3.7-5.1FPremier Health Miami Valley Hospital SouthProtein [Mass/Vol]0.42 g/dLHigh <=0.00[facility] Hospitalodium [Moles/Vol]138 mmol/T206-230 [facility] HospitalUrate [Mass/Vol]5.4 mg/dL4.0-8.1FPremier Health Miami Valley Hospital SouthUrea nitrogen [Mass/Vol]21 mg/dL9-24[facility] HospitalLaboratory - Hematology and Cell countson 48-53-0710Hslqdlvyeqr (Bld) [#/Vol]0.08 10*3/uL<0.46[facility] HospitalImmature granulocytes/100 WBC (Bld)0.3 %[facility] HospitalLeukocytes [#/volume] corrected for nucleated erythrocytes in Blood by Automated counon 18-89-5131FFK corrected for nucl RBC Auto (Bld) [#/Vol]6.24 k/uL3.70-11.00 [facility] HospitalLymphocytes Auto (Bld) [#/Vol]on 11-03-2023 Lymphocytes (Bld) [#/Vol]1.49 10*3/uL1.00-4.00[facility] Lymphocytes/100 WBC Auto (Bld)on 66-41-8724Gjzeuxddnmh/100 WBC (Bld)23.9 % [facility] RehabilitationH Auto (RBC) [Entitic mass]on 34-95-4581ATC (RBC) [Entitic mass]31.2 pg26.0-34.0[facility] HospitalMCHC Auto (RBC) [Mass/Vol]on 46-37-0600RXVK (RBC) [Mass/Vol]33.5 g/dL30.5-36.0[facility] HospitalMCV Auto (RBC) [Entitic vol]on 30-59-4492FZA (RBC) [Entitic vol]93.1 fL80.0-100.0[facility] HospitalMonocytes Auto (Bld) [#/Vol]on 69-50-4589Aneowdlck (Bld) [#/Vol]0.62 10*3/uL<0.87[facility] HospitalMonocytes/100 WBC Auto (Bld)on 98-09-7094Nulnphqzi/100 WBC (Bld)9.9 %[facility] HospitalNeutrophils Auto (Bld) [#/Vol]on 57-59-2883Eyjhtpzzcqw (Bld) [#/Vol]4.00 10*3/uL1.45-7.50[facility] HospitalNeutrophils/100 WBC Auto (Bld)on 14-57-9633Lwtrlzlrfby/100 WBC (Bld)64.1 %[facility] HospitalNo Panel Informationon 11-03-2023 Estimated GFR (CKD-EPI)50 mL/min/1.73m???Low>=60[facility] HospitalComment on above:Estimated Glomerular Filtration Rate (eGFR) is calculated using the 2020 CKD-EPI creatinine equation. This equation utilizes serum creatinine, sex, and age as parameters. The creatinine assay has traceable calibration to isotope dilution-mass spectrometry. Refer to KDIGO guidelines for clinical interpretation. In patients with unstable renal function, e.g. those with acute kidney injury, the eGFRmay not accurately reflect actual GFR.Immature Granulocyte # (Auto)<0.03 k/uL<0.10[facility] Immunofixation InterpretationOhiohealth Shelby HospitalIonized Calcium (pH Adjusted)1.24 mmol/L1.08-1.30[facility] HospitalLeuk/Lymph Sign Pathologist (Misc)Reviewed by Kira Reyes MDOhiohealth Shelby HospitalMiscellaneous Test 6Gamma Fraction 1FPremier Health Miami Valley Hospital South Miscellaneous Test CommentReviewed by Kira Reyes MDOhiohealth Shelby HospitalPhosphorus Level2.9 mg/dL2.7-4.8[facility] Protein Electrophoresis InterpretSee commentOhiohealth Shelby Hospital Comment on above:See separate immunofixation report for characterization of monoclonal gammopathy.M protein is present on the background of a polyclonal immunoglobulin population. Quantitation of the M protein may overestimate the amount of M protein present.Protein Electrophoresis NoteAn M protein is identified on protein electrophoresis.AbnormalNo definitive M protein is identified on protein electrophoresis.[facility] Hospitalerum ImmunofixationM protein is present.AbnormalNo M protein is identified.[facility] HospitalNucleated RBC Auto (Bld) [#/Vol]on 14-80-0165Wspduliit RBC (Bld) [#/Vol]10*3/uL<0.01[facility] HospitalNucleated erythrocytes [Presence] in Blood by Automated counton 02-18-0561Tguxpnxwt RBC Auto Ql (Bld)0.0 /100{WBC}[facility] HospitalPlatelet mean volume Auto (Bld) [Entitic vol]on 80-74-3019Evzlrfhy mean volume (Bld) [Entitic vol]9.7 fL9.0-12.7FPremier Health Miami Valley Hospital SouthPlatelets Auto (Bld) [#/Vol]on 38-31-4516Arloygxvf (Bld) [#/Vol]200 10*3/eX589-952LkjtwqaaeOhiohealth Shelby HospitalProtein [Mass/volume] in Serum or Plasmaon 89-62-7952Zutleky [Mass/Vol]6.6 g/dL6.3-8.0[facility] HospitalRBC Auto (Bld) [#/Vol]on 11-03-2023 RBC (Bld) [#/Vol]4.33 10*6/uL4.20-6.00[facility] Hospitalerum ionized calcium measurement using ion specific electrode (mass/volume)on 23-95-2058Ghzxdwy.ionized ISE [Mass/Vol]1.28 mmol/L1.08-1.30[facility] Hospitalerum or plasma alpha 1 globulin measurement by electrophoresis (mass/volume)on 44-37-5400Pjwus 1 globulin Elph [Mass/Vol]0.25 g/dL0.18-0.43 [facility] Hospitalerum or plasma alpha 2 globulin measurement by electrophoresis (mass/volume)on 51-80-6269Bzlif 2 globulin Elph [Mass/Vol]0.69 g/dL0.42-0.98[facility] Hospitalerum or plasma anion gap determinationon 65-02-7537Pjnje gap [Moles/Vol]9 mmol/L8-15[facility] Hospitalerum or plasma beta globulin measurement by electrophoresis (mass/volume)on 73-70-3233Smya globulin Elph [Mass/Vol]0.91 g/dL0.61-1.17 [facility] Hospitalerum or plasma kmit-9-hcqkpuqkicxhk measurement (mass/volume)on 18-55-0462Xxdb-2-Microglobulin [Mass/Vol]4.3 ug/mL High<3.1FPremier Health Miami Valley Hospital SouthComment on above:Beta-2 Microglobulin test is performed using the [employer] immunoturbidimetric method. Resul ts obtained with different methods or kits cannot be used interchangeably.Serum or plasma gamma globulin measurement by electrophoresis (mass/volume)on 55-72-1469Tlola globulin Elph [Mass/Vol]1.19 g/dL0.53-1.51[facility] HospitalGlucose mean value [Mass/volume] in Blood Estimated from glycated hemoglobinon 29-85-2582Avhzuyt glucose Estimated from glycated hemoglobin (Bld) [Mass/Vol]194 mg/dLOhiohealth Shelby HospitalLaboratory - Hematology and Cell countson 48-61-0243FtP8r (Bld) [Mass fraction]8.4 %High4.5-6.2FPremier Health Miami Valley Hospital SouthComment on above:ADA RECOMMENDED LIMIT 4.0 - 6.0ADA THERAPEUTIC TARGET < 7.0ACTION SUGGESTED> 7.0PET+CT Whole body Bone W 18F-NaF IV on 51-22-6953AQBPMTLDIN: HEAD/NECK: * No FDG avid neoplastic process. [...] any questions regarding this interpretation, please call [phone]. If you are unable to reach us at the number above, please feel free to contact [facility] at [phone].DIVISION OF RADIOLOGY* * *Final Report* * * [...] * Radiopharmaceutical Dose: 17.6 mCi * Radiopharmaceutical: Z21-Zntggvqdotkadnolzz (FDG) COMPARISON: 12/05/2016 CORRELATION: CT spine 05/26/2019 RESULT: REFERENCES: SUV reference values: * Blood pool (descending aorta) activity: SUVmax 2.7 * Background liver activity: SUVmax 3.6 Ward Clerk (topogram) images: Unremarkable. Notes and limitations: * [...] Tissues: No abnormal uptake. DIVISION OF RADIOLOGYProvider, [facility] [place] - 09/05/2023 * * *Final Report* * [...] * Radiopharmaceutical Dose: 17.6 mCi * Radiopharmaceutical: F80-Tgyjorjpadnuioyqgo (FDG) COMPARISON: 12/05/2016 CORRELATION: CT spine 05/26/2019 RESULT: REFERENCES: SUV reference values: * Blood pool (descending aorta) activity: SUVmax 2.7 * Background liver activity: SUVmax 3.6 Ward Clerk (topogram) images: Unremarkable. Notes and limitations: * [...] any questions regarding this interpretation, please call [phone]. If you are unable to reach us at the number above, please feel free to contact [facility] eRadiology at [phone]. [facility] HospitalPET+CT Whole body Bone W 18F-NaF IVOrdered By: [facility]cf Provider on 00-83-4887Pxisjjlpn ClinicGLUCOSE, BLOOD (POC)on 19-81-7504Hlopnji [Mass/Vol]223 mg/kKMemzdgxu54 - 99 mg/dLCleveland Clinic Medina HospitalComment on above:Location:[facility], [address] [place] [address] , [place], [place], [address] The Accu-Chek Inform II glucose meter has [...] above situations. Interpretation and review of laboratory resultsAbnormalCTriHealth McCullough-Hyde Memorial HospitalT+CT Whole body Bone W 18F-NaF Sachi 31-03-3945Cdymupuvw Study observation (narrative)[facility] ClinicAlbumin [Mass/volume] in Serum or Plasma on 15-64-0565Vbqldlx [Mass/Vol]3.58 g/dL3.43-5.41[facility] HospitalBasophils Auto (Bld) [#/Vol]on 43-69-4591Hrdsxynra (Bld) [#/Vol]0.03 10*3/uL<0.11[facility] HospitalBasophils/100 WBC Auto (Bld)on 36-71-8188Ioujpbjyv/100 WBC (Bld)0.4 %[facility] HospitalBlood manual differential comment interpretation narrativeon 61-92-7393Xzolfe differential comment Augie (Bld) [Interp]AutoOhiohealth Shelby Hospital Eosinophils/100 WBC Auto (Bld)on 66-65-8237Voxlavxvkbx/100 WBC (Bld)1.6 % [facility] HospitalErythrocyte distribution width Auto (RBC) [Ratio]on 89-01-2190Ebupnclialg distribution width (RBC) [Ratio]12.8 %11.5-15.0 [facility] HospitalHematocrit Auto (Bld) [Volume fraction]on 39-10-4745Zgvgaynyjo (Bld) [Volume fraction]40.9 %39.0-51.0[facility] HospitalHemoglobin [Mass/volume] in Bloodon 28-11-2032Vshjwxgygw (Bld) [Mass/Vol]13.5 g/dL13.0-17.0[facility] HospitalIgA [Mass/volume] in Serum or Plasmaon 30-89-7716MmQ [Mass/Vol]237 mg/eS66-985NylfskpllOhiohealth Shelby HospitalIgG [Mass/volume] in Serum or Plasmaon 31-03-6307WpM [Mass/Vol] 1238 mg/oB823-3678WqqkksvlqOhiohealth Shelby HospitalIgM [Mass/volume] in Serum or Plasmaon 54-99-9924VeV [Mass/Vol]319 mg/gYAkyn22-380AuajgfrfdOhiohealth Shelby HospitalImmunoglobulin light chains.kappa.free [Mass/volume] in Serumon 08-04-2023 Immunoglobulin light chains.kappa.free (S) [Mass/Vol]102.8 mg/LHigh3.3-19.4 [facility] HospitalComment on above:Rarely, increased serum free light chains levels may not be detected or accurately quantified due to prozone phenomenon or in high viscosity samples using this immunoturbidimetric assay. Correlation with other laboratory results and clinical findings is recommended. The [place] Free Light Chain was performed using the Binding Site [employer]il[employer] immunoturbidimetric method. Result obtained with different assay methods or kits cannot be used interchangeably.Immunoglobulin light chains.kappa.free/Immunoglobulin light chains.lambda.free [Bowen 08-04-2023 Immunoglobulin light chains.kappa.free/Immunoglobulin light chains.lambda.free (S) [Mass ratio]2.16Oswe1.26-1.65[facility] HospitalImmunoglobulin light chains.lambda.free [Mass/volume] in Serum or Plasmaon 08-04-2023 Immunoglobulin light chains.lambda.free [Mass/Vol]47.2 mg/LHigh5.7-26.3FPremier Health Miami Valley Hospital SouthComment on above:Rarely, increased serum free light chains [...] - Chemistry and Chemistry - challenge on 56-44-8369Imscorp [Mass/Vol]4.0 g/dL3.9-4.9[facility] ALP [Catalytic activity/Vol]88 U/B57-484YxgvjmrvpOhiohealth Shelby HospitalALT [Catalytic activity/Vol]25 U/Z55-23BieethtpoOhiohealth Shelby HospitalAST [Catalytic activity/Vol]27 U/M32-08ZyaurmqzrOhiohealth Shelby HospitalBilirubin [Mass/Vol]0.3 mg/dL0.2-1.3FPremier Health Miami Valley Hospital SouthCalcium [Mass/Vol]9.3 mg/dL8.5-10.2FPremier Health Miami Valley Hospital SouthChloride [Moles/Vol]104 mmol/L 97-105Ohio[facility] HospitalCO2 [Moles/Vol]23 mmol/S01-06JfocjsbbnOhiohealth Shelby HospitalCreatinine [Mass/Vol]1.46 mg/dLHigh0.73-1.22[facility] HospitalGlucose [Mass/Vol]320 mg/tCYglo31-52JwpfoykmlOhiohealth Shelby HospitalComment on above:The [place] Diabetes Association (ADA) provides guidance for cutoff [...] diabetes.Reference: Standardsof Medical Care in Diabetes 2016, [place] Diabetes Association. Diabetes Care. 2016.39(Suppl 1).LDH [Catalytic activity/Vol]159 U/M229-548RrlqcotseOhiohealth Shelby HospitalPotassium [Moles/Vol]4.3 mmol/L 3.7-5.1FPremier Health Miami Valley Hospital SouthProtein [Mass/Vol]0.41 g/dLHigh<=0.00 [facility] Hospitalodium [Moles/Vol]136 mmol/N226-042IqwjjudjyOhiohealth Shelby HospitalUrate [Mass/Vol]4.7 mg/dL4.0-8.1FPremier Health Miami Valley Hospital SouthUrea nitrogen [Mass/Vol]14 mg/dL9-24[facility] HospitalLaboratory - Hematology and Cell countson 63-75-8449Oktkowqmfbs (Bld) [#/Vol]0.12 10*3/uL<0.46[facility] HospitalImmature granulocytes/100 WBC (Bld)0.3 %[facility] HospitalLeukocytes [#/volume] corrected for nucleated erythrocytes in Blood by Automated counon 56-77-5799HPS corrected for nucl RBC Auto (Bld) [#/Vol]7.73 k/uL3.70-11.00 [facility] HospitalLymphocytes Auto (Bld) [#/Vol]on 08-04-2023 Lymphocytes (Bld) [#/Vol]1.81 10*3/uL1.00-4.00[facility] Lymphocytes/100 WBC Auto (Bld)on 94-09-1010Ozypvpcxoff/100 WBC (Bld)23.4 % [facility] HospitalMCH Auto (RBC) [Entitic mass]on 84-22-6113EIZ (RBC) [Entitic mass]30.4 pg26.0-34.0[facility] HospitalMCHC Auto (RBC) [Mass/Vol]on 79-35-2179PTGN (RBC) [Mass/Vol]33.0 g/dL30.5-36.0[facility] HospitalMCV Auto (RBC) [Entitic vol]on 75-07-5500LHH (RBC) [Entitic vol]92.1 fL80.0-100.0[facility] HospitalMonocytes Auto (Bld) [#/Vol]on 55-55-5055Qvgfcftyy (Bld) [#/Vol]0.84 10*3/uL<0.87[facility] HospitalMonocytes/100 WBC Auto (Bld)on 54-45-8670Vrykmyjco/100 WBC (Bld)10.9 %[facility] HospitalNeutrophils Auto (Bld) [#/Vol]on 85-87-3360Hwhpsbttqlc (Bld) [#/Vol]4.91 10*3/uL1.45-7.50[facility] HospitalNeutrophils/100 WBC Auto (Bld)on 74-54-0605Fkfgnwuwbqc/100 WBC (Bld)63.4 %[facility] HospitalNo Panel Informationon 08-04-2023 Estimated GFR (CKD-EPI)48 mL/min/1.73m???Low>=60[facility] HospitalComment on above:Estimated Glomerular Filtration Rate (eGFR) is calculated using the 2020 CKD-EPI creatinine equation. This equation utilizes serum creatinine, sex, and age as parameters. The creatinine assay has traceable calibration to isotope dilution-mass spectrometry. Refer to KDIGO guidelines for clinical interpretation. In patients with unstable renal function, e.g. those with acute kidney injury, the eGFRmay not accurately reflect actual GFR.Immature Granulocyte # (Auto)<0.03 k/uL<0.10[facility] Immunofixation InterpretationOhiohealth Shelby HospitalIonized Calcium (pH Adjusted)1.20 mmol/L1.08-1.30[facility] HospitalLeuk/Lymph Sign Pathologist (Misc)Reviewed by Kira Reyes MDOhiohealth Shelby HospitalMiscellaneous Test 6Gamma Fraction 1FPremier Health Miami Valley Hospital South Miscellaneous Test CommentReviewed by Kira Reyes MDOhiohealth Shelby HospitalPhosphorus Level2.3 mg/dLLow2.7-4.8[facility] HospitalProtein Electrophoresis InterpretSee commentOhiohealth Shelby HospitalComment on above:See separate immunofixation report for characterization of monoclonal gammopathy.M protein is present on the background of a polyclonal immunoglobulin population. Quantitation of the M protein may overestimate the amount of M protein present.Protein Electrophoresis NoteAn M protein is identified on protein electrophoresis.AbnormalNo definitive M protein is identified on protein electrophoresis.[facility] Hospitalerum ImmunofixationM protein is present.AbnormalNo M protein is identified.[facility] HospitalNucleated RBC Auto (Bld) [#/Vol]on 25-47-0069Mclehbtob RBC (Bld) [#/Vol]10*3/uL<0.01[facility] HospitalNucleated erythrocytes [Presence] in Blood by Automated counton 14-34-0332Cxrshpsri RBC Auto Ql (Bld)0.0 /100{WBC}[facility] HospitalPlatelet mean volume Auto (Bld) [Entitic vol]on 47-06-6072Larzwxfc mean volume (Bld) [Entitic vol] 10.0 fL9.0-12.7FPremier Health Miami Valley Hospital SouthPlatelets Auto (Bld) [#/Vol]on 43-92-1477Wpqyrvkyy (Bld) [#/Vol]187 10*3/yT835-341AffwfnzsaOhiohealth Shelby HospitalProtein [Mass/volume] in Serum or Plasmaon 58-32-3567Sflgpub [Mass/Vol]6.6 g/dL6.3-8.0[facility] HospitalRBC Auto (Bld) [#/Vol]on 08-04-2023 RBC (Bld) [#/Vol]4.44 10*6/uL4.20-6.00[facility] Hospitalerum ionized calcium measurement using ion specific electrode (mass/volume)on 93-46-9597Hdgwjsv.ionized ISE [Mass/Vol]1.24 mmol/L1.08-1.30[facility] Hospitalerum or plasma alpha 1 globulin measurement by electrophoresis (mass/volume)on 71-23-5842Hmkpw 1 globulin Elph [Mass/Vol]0.26 g/dL0.18-0.43 [facility] Hospitalerum or plasma alpha 2 globulin measurement by electrophoresis (mass/volume)on 73-92-0946Hdscm 2 globulin Elph [Mass/Vol]0.67 g/dL0.42-0.98[facility] Hospitalerum or plasma anion gap determinationon 32-58-3518Gncqy gap [Moles/Vol]9 mmol/L9-18FMount St. Mary Hospitalerum or plasma beta globulin measurement by electrophoresis (mass/volume)on 22-69-8935Hayj globulin Elph [Mass/Vol]0.90 g/dL0.61-1.17 [facility] Hospitalerum or plasma mgtx-4-nrbpjgwywmgau measurement (mass/volume)on 46-45-4748Rlrw-2-Microglobulin [Mass/Vol]4.3 ug/mL High<3.1FPremier Health Miami Valley Hospital SouthComment on above:Beta-2 Microglobulin test is performed using the [employer] immunoturbidimetric method. Resul ts obtained with different methods or kits cannot be used interchangeably.Serum or plasma gamma globulin measurement by electrophoresis (mass/volume)on 07-04-7902Djhor globulin Elph [Mass/Vol]1.20 g/dL0.53-1.51[facility] HospitalMicroalbumin [Mass/volume] in Urineon 74-84-7161Orzllzu DL <= 20 mg/L (U) [Mass/Vol]8.0 mg/dL<=30.0[facility] HospitalBasophils Auto (Bld) [#/Vol]on 06-53-7845Vzytisnkj (Bld) [#/Vol]0.0 10 3/uL0.0-0.1 [facility] HospitalBasophils/100 WBC Auto (Bld)on 07-11-2023 Basophils/100 WBC (Bld)0.5 %0.2-2.0[facility] HospitalCholesterol in LDL Calc [Mass/Vol]on 97-45-3063Fhuivpwnqyl in LDL [Mass/Vol]64.0 mg/dL [facility] HospitalComment on above:<100 mg/dl XWJHSQH116-473 mg/dl NEAR OR ABOVE KZXIDGE964-412 mg/dl BORDERLINE RPFG780-169 mg/dl HIGH>190 mg/dl VERY HIGHCholesterol in VLDL Calc [Mass/Vol]on 08-16-5930Zqftyzciitu in VLDL [Mass/Vol]33.8 mg/dLOhiohealth Shelby HospitalEosinophils/100 WBC Auto (Bld)on 26-87-9894Tdzffvcyosw/100 WBC (Bld)2.3 %0.9-7.0[facility] HospitalErythrocyte distribution width Auto (RBC) [Ratio]on 07-11-2023 Erythrocyte distribution width (RBC) [Ratio]12.7 %11.0-15.0[facility] HospitalEstimated glomerular filtration rate (GFR) non- Americanon 22-97-7054FKE/1.73 sq M.predicted among non-blacks MDRD (S/P/Bld) [Vol rate/Area]48 mL/min/{1.73_m2}>=60[facility] HospitalGlobulin Calc (S) [Mass/Vol]on 55-51-7371Pekhshdo (S) [Mass/Vol]3.9 g/dLOhiohealth Shelby HospitalGlucose mean value [Mass/volume] in Blood Estimated from glycated hemoglobinon 33-27-3326Rzbtqko glucose Estimated from glycated hemoglobin (Bld) [Mass/Vol]177 mg/dLOhiohealth Shelby HospitalHematocrit Auto (Bld) [Volume fraction]on 19-43-7370Mxpipupmwi (Bld) [Volume fraction]43.0 %42.0-54.0 [facility] HospitalHemoglobin [Mass/volume] in Bloodon 07-11-2023 Hemoglobin (Bld) [Mass/Vol]14.3 g/dL14.0-18.0[facility] Laboratory - Chemistry and Chemistry - challengeon 08-99-1103Wjtjict [Mass/Vol] 3.6 g/dL3.4-5.0[facility] HospitalALP [Catalytic activity/Vol]87 U/M60-324AqordtvpxOhiohealth Shelby HospitalALT [Catalytic activity/Vol]37 U/L 16-63[facility] HospitalAST [Catalytic activity/Vol]27 U/L15-37 [facility] HospitalBilirubin [Mass/Vol]0.5 mg/dL0.2-1.0[facility] HospitalCalcium [Mass/Vol]9.3 mg/dL8.5-10.1FPremier Health Miami Valley Hospital SouthChloride [Moles/Vol]105 mmol/N91-817FttrbbrjlOhiohealth Shelby HospitalCholesterol [Mass/Vol]137 mg/dL<=200[facility] Cholesterol in HDL [Mass/Vol]40 mg/pV35-36VlqzbksvjOhiohealth Shelby Hospital Comment on above:> or =60 mg/dl - LOW CARDIOVASCULAR RISK<40 mg/dl - HIGH CARDIOVASCULAR RISKCO2 [Moles/Vol]26.9 mmol/L21.0-32.0[facility] HospitalCreatinine [Mass/Vol]1.41 mg/dL0.70-1.30[facility] GFR/1.73 sq M.predicted MDRD (S/P/Bld) [Vol rate/Area]58 mL/min/{1.73_m2}>=60 [facility] HospitalGlucose [Mass/Vol]158 mg/iG06-875KbsdpszbvOhiohealth Shelby HospitalPotassium [Moles/Vol]4.2 mmol/L3.5-5.1FPremier Health Miami Valley Hospital SouthProtein [Mass/Vol]7.5 g/dL6.4-8.2FPremier Health Miami Valley Hospital South Sodium [Moles/Vol]139 mmol/W559-505AakqgklntOhiohealth Shelby HospitalTriglyceride [Mass/Vol]169 mg/dL<=150[facility] HospitalUrea nitrogen [Mass/Vol]15.0 mg/dL7.0-18.0[facility] HospitalUrea nitrogen/Creatinine [Mass ratio]10.6 mg/mgOhiohealth Shelby Hospital Laboratory - Hematology and Cell countson 14-61-0612WfE9y (Bld) [Mass fraction] 7.8 %4.5-6.2FPremier Health Miami Valley Hospital SouthComment on above:ADA RECOMMENDED LIMIT 4.0 - 6.0ADA THERAPEUTIC TARGET < 7.0ACTION SUGGESTED> 7.0Immature granulocytes/100 WBC (Bld)0.3 %0.0-0.5FPremier Health Miami Valley Hospital South Leukocytes [#/volume] corrected for nucleated erythrocytes in Blood by Automated counon 52-35-5817LEI corrected for nucl RBC Auto (Bld) [#/Vol]8.9 10 3/uL 4.0-11.0[facility] HospitalLymphocytes Auto (Bld) [#/Vol]on 13-53-8876Hheznechbzn (Bld) [#/Vol]2.4 10 3/uL1.2-3.8[facility] HospitalLymphocytes/100 WBC Auto (Bld)on 41-75-3956Mplknbjghje/100 WBC (Bld)26.8 % 20.5-60.0[facility] HospitalMCH Auto (RBC) [Entitic mass]on 63-93-7101LDY (RBC) [Entitic mass]31.2 pg25.9-34.0[facility] HospitalMCHC Auto (RBC) [Mass/Vol]on 82-92-5944IKJA (RBC) [Mass/Vol]33.3 g/dL 29.9-35.2FPremier Health Miami Valley Hospital SouthMCV Auto (RBC) [Entitic vol]on 65-93-7715NKG (RBC) [Entitic vol]93.9 fL80.0-94.0[facility] HospitalMonocytes Auto (Bld) [#/Vol]on 85-02-0366Zcpdlyjkp (Bld) [#/Vol]0.8 10 3/uL0.3-0.8[facility] HospitalMonocytes/100 WBC Auto (Bld)on 33-02-3471Rkcvmfqad/100 WBC (Bld)9.5 %1.7-12.0[facility] Neutrophils Auto (Bld) [#/Vol]on 24-94-5793Mqzrjucxupt (Bld) [#/Vol]5.4 10 3/uL 1.4-6.5FPremier Health Miami Valley Hospital SouthNeutrophils/100 WBC Auto (Bld)on 56-15-7218Zdnidifuksa/100 WBC (Bld)60.6 %43.0-75.0[facility] HospitalNo Panel Informationon 68-04-6524Divmaguadea # (Auto)0.2 10 3/uL0.0-0.7 [facility] HospitalImmature Granulocyte # (Auto)0.03 10 3/uL 0.00-0.03[facility] HospitalPlatelet mean volume Auto (Bld) [Entitic vol]on 96-17-8500Pqpgyfpf mean volume (Bld) [Entitic vol]9.8 fL9.5-13.5 [facility] HospitalPlatelets Auto (Bld) [#/Vol]on 07-11-2023 Platelets (Bld) [#/Vol]213 10 3/uM721-190IioergoeuOhiohealth Shelby HospitalRBC Auto (Bld) [#/Vol]on 38-28-4790RWU (Bld) [#/Vol]4.58 10 6/uL4.70-6.10[facility] Hospitalerum or plasma albumin/globulin mass ratioon 07-11-2023 Albumin/Globulin [Mass ratio]0.9 {ratio}[facility] Hospitalerum or plasma anion gap determinationon 70-39-0500Gxmrx gap [Moles/Vol]11.3 mmol/L [facility] Hospitalerum or plasma total cholesterol/high density lipoprotein (HDL) cholesterol mass cr 10-23-8558Skqrmwfsuft.total/Cholesterol in HDL [Mass ratio]3.4 {ratio}[facility] HospitalComment on above:3.3 - 4.4 LOW RISK4.4 - 7.1 AVERAGE RISK7.1 - 11.0 MODERATE RISK>11.0 HIGH RISKGLYCOHEMOGLOBIN A1Con 71-75-1788YVL RECOMMENDATIONSEE BELOWCleveland Clinic Lutheran HospitalComment on above:Result Comment: ADA RECOMMENDED LIMIT 4.0 - 6.0 ADA THERAPEUTIC TARGET < 7.0 ACTION SUGGESTED > 7.0Performed By: #### A1C #### [facility] [address] [place] [address] Dr. Sandy KochGlucose [Mass/Vol]169 mg/dLCleveland Clinic Lutheran HospitalComment on above:Performed By: #### A1C #### [facility] [address] [place] [address] Dr. Sandy WeldonA1c (Bld) [Mass fraction]7.5 %Critically high4.5-6.2[facility] SystemComasc[facility] prov[facility] on above:Performed By: #### A1C #### [facility] [address] [place] [address] Dr. Sandy KochGLYCOHEMOGLOBIN A1Con 35-59-5989XXU RECOMMENDATIONSEE BELOWGuernsey Memorial HospitalComment on above:Result Comment: ADA RECOMMENDED LIMIT 4.0 - 6.0 ADA THERAPEUTIC TARGET < 7.0 ACTION SUGGESTED > 7.0Performed By: #### A1C #### [facility] [address] [address] [address] Sandy KochGlucose [Mass/Vol]163 mg/dLCleveland Clinic Lutheran HospitalComment on above:Performed By: #### A1C #### [facility] [address] [place] [address] Dr. Sandy WeldonA1c (Bld) [Mass fraction]7.3 %Critically high4.5-6.2[facility] SystemComment on above:Performed By: #### A1C #### [facility] [address] [address] [address] Sandy KohcGLYCOHEMOGLOBIN A1Con 76-05-6994LDG RECOMMENDATIONSEE BELOWNormal [facility] Health SystemComment on above:Result Comment: ADA RECOMMENDED LIMIT 4.0 - 6.0 ADA THERAPEUTIC TARGET < 7.0 ACTION SUGGESTED > 7.0Performed By: #### A1C #### [facility] [address] [address] [address] Sandy KochGlucose [Mass/Vol]160 mg/dLNoMercy Health Anderson HospitalComment on above:Performed By: #### A1C #### [facility] [address] [address] [address] Sandy KochHbA1c (Bld) [Mass fraction]7.2 %Critically high4.5-6.2The [facility] HospitalComment on above:Performed By: #### A1C #### [facility] [address] [address] [address] Sandy KochComilagros Summaryon 22-05-4562Agtaip SummaryHTMLBase 64 ZccwkbjuHTd9sZq+PGhlYWQ+XQ2XVPEuM42vjELiaU3NW6mXDJ6BSCAALYINSY3SLJ3vdEC5PUmmJ5Zj biAv [file] ZTo (more content not included)...[facility] Medical CenterConsent Formson 78-37-7752Ribgiqt [id number]#1.00OTGTIFF [facility] CenterInpatient Patient Summaryon 73-65-7400Jsaenejku Patient SummaryMark [place] [id number] Patient Discharge Instructions Name: RAFAT BELLA Dania : 1940 Patient Address: [address] [place] [address] Primary Care Provider: Name: Danilo Clark After you are discharged if you find you have any questions, please, call [phone] to speak to a nurse. Discharge Diagnosis: Carpal tunnel syndrome on right Prescription Information: If you have been given a prescription for narcotics, seek immediate medical attention if you have any difficulty breathing or any sudden status changes such as confusion andsleepiness. If you or anyone you know is experiencing suicidal thoughts, mental health, alcohol and/or drug addiction problems; contact the [facility] 14/10 Crisis Hotline -Text 4HGYJ to 105773. If you received any narcotics, sedation, or [...] business decisions or sign any legal documents [facility] would like to thank you for allowing us to assist you with your healthcare needs.The following includes patient education materials and information regarding your injury/illness. RAFAT BELLA has been given the following list of follow-up instructions, prescriptions, and patient education materials: Follow-up Instructions With: Address: When: Carlo Richards [address] [place] [address], [address] [place] [id number] Business (1) 09/28/2020 10:00 AM Medications During [...] frequently while awake (more content not included)...[facility] Intraoperative Recordon [id number] Intraoperative RecordMA Intra-Op Record Summary Primary Physician: Carlo Richards DO Finalized Date/Time: 09/20/20 13:39:22 Pt. Name: RAFAT BELLA/Sex: 1940 MALE Med Rec #: [id number] Physician: Carlo Richards DO Financial #: [id number] Pt. Type: D Room/Bed: / Admit/Disch: 09/20/20 [...] Andrew DO Role Performed Surgeon - Primary Order Entry Clerk Scrub Personnel Time In 09/20/20 12:20:00 09/20/20 [...] Release(Right) Counts Verification Initia (more content not included)...[facility] Preoperative Recordon [id number] Preoperative RecordMA Pre-Op Record Summary Primary Physician: Carlo Richadrs DO Finalized Date/Time: 09/20/20 13:52:57 Pt. Name: RAFAT BELLA/Sex: 1940 MALE Med Rec #: [id number] Physician: Carlo Richards DO Financial #: [id number] Pt. Type: D Room/Bed: / Admit/Disch: 09/20/20 [...] Signatures Signed By: Sherrie Merino RN 09/20/20 13:52[facility] CenterOperative Report - Surgeon/Physicianon 59-66-8417Mgckjhdaf Report - Surgeon/PhysicianPreoperative diagnosis: Carpal tunnel syndrome [...] [Verified on: 09/20/2020 13:49 EDT] Carlo Richards [facility] HospitalPOCT Glucose Levelon 32-93-4978Gowyckb [Mass/Vol]210 mg/qLVcqf64-625Zawqbpyg82 Morgan StreetComment on above:Performed By: #### [id number] #### [facility] (DEFAULT) [address] [place] [address] 11267Lfnwqja Handouton 81-60-6946Aewpgcv HandoutDRMichelle WILD POST OPERATIVE CARPEL TUNNEL INSTRUCTIONS SURGEONS WRITTEN INSTRUTCTIONS: -Keep your hand elevated above your elbow for the first 24 hours after surgery -Wiggle your fingers frequently while awake -DO NOT lift heavy objects or environmental field technician forcefully with your hand -Change your dressing [...] or concerns, please call the office at [phone] -Follow up as scheduledOhio State University Wexner Medical CenterProgress Note - Maite 09-19-2020 Progress Note - NurseDr. Richards's office called- informed Zakiya of needing patient's consent for surgery and if that patient is on coumadin and had labwork done yesterday at the [facility] -if we could get copies of those fax'd to us- Zakiya stated she would send. [Electronically Signed on: 09/19/2020 13:09 EDT] Sherrie Merino RN [Verified on: 09/19/2020 13:09 EDT] Sherrie Merino RNOhio State University Wexner Medical CenterCoding Summary.on 20-20-3072Gpgqas Summary.CODING DATE: 04/29/2017 FINAL [facility] STATUS: Home (Routine DC) PAYOR: Medicare [...] By: Shawna Cantu Date Saved: 04/29/2017 12:57 pmNormalUniversity Hospitals Ahuja Medical CenterCoding Summary.on 04-78-4980Cmtbaj Summary.CODING DATE: 04/25/2017 FINAL [facility] STATUS: Home (Routine DC) PAYOR: Medicare [...] Shawna Cantu Date Saved: 04/25/2017 07:32 amNormal [facility]ja Medical CenterMRI Spine Thoracic w/ + w/o Contraston [id number] Spine Thoracic w/ + w/o ContrastExam Date/Time:04/24/2017 [...] Technologist: LINETTE,Technical CommentsMultiHanceContrast amount in ml's: 20Normal [facility] Medical CenterCreatinineon 69-54-0930Ytujqwqkcs3.6 mg/dLHigh0.5-1.3 [facility] Medical CenterComment on above:Performed By: #### [id number], [id number] ####[facility] [address] [place], [place] [address]mZPQ on 76-05-2451tHFB (black)51 mL/min/1.73 m2Low>=59[facility] Comment on above:Order Comment: Order added by Discern Expert.Result Comment: eGFR is race adjusted. AA=.Performed By: #### [id number], [id number] ####[facility] [address] [place], [place] [address]uQTX (non-black)42 mL/min/1.73 m2Low>=59[facility]ja Medical CenterComment on above: Order Comment: Order added by Discern Expert.Result Comment: Chronic kidney disease could be indicated at eGFR's of less than 60 mL/min/1.73m2. Kidney failure is indicated at less than 15 mL/min/1.73m2.Performed By: #### [id number], [id number] ####[facility] [address] [place] [address] Vital Signs Date TimeVital SignValuePerforming WhsqbdbzmTwkxmope79-92-0486 14:14-0400Body aguwvo415.8 cmBenjamin Ball DO Work Phone: [facility]10-20-2025 14:14-0400 Body mass index (BMI) [Ratio]37 kg/o5Wehnbhig Ball DO Work Phone: [facility]10-20-2025 14:14-0400 Body .19 kgBenjamin Ball DO Work Phone: [facility]10-20-2025 14:14-0400 Diastolic blood ggtjzmud87 mm[Hg]Danilo Ball DO Work Phone: [facility]10-20-2025 14:14-0400 Heart rate75 /minBenjamin Ball DO Work Phone: [facility]10-20-2025 14:14-0400 Respiratory rate16 /minBenbrandynmin Ball DO Work Phone: [facility]10-20-2025 14:14-0400 Systolic blood cesebtri413 mm[Hg]Danilo Clark DO Work Phone: [facility]09-03-2025 10:24-0400 Body rjoufb991.8 cmIdalmis Basilio COAL HAULER.PATIENT ACCOUNT SPECIALIST Work Phone: [facility]09-03-2025 10:24-0400Body mass index (BMI) [Ratio]36.76 kg/t4GrmiucIdalmis Basilio COAL HAULER.PATIENT ACCOUNT SPECIALIST Work Phone: [facility]09-03-2025 10:24-0400Body temperature 97.59 [degF]Idalmis Basilio COAL HAULER.PATIENT ACCOUNT SPECIALIST Work Phone: [facility]09-03-2025 10:24-0400Body jtyxyq626.2 kgIdalmis Basilio COAL HAULER.PATIENT ACCOUNT SPECIALIST Work Phone: [facility]09-03-2025 10:24-0400Diastolic blood xmxgoeid41 mm[Hg]Idalmis Basilio COAL HAULER.PATIENT ACCOUNT SPECIALIST Work Phone: [facility]09-03-2025 10:24-0400Heart rate79 /min Idalmis Basilio COAL HAULER.PATIENT ACCOUNT SPECIALIST Work Phone: [facility]09-03-2025 10:24-0400Respiratory rate 20 /minIdalmis Basilio COAL HAULER.PATIENT ACCOUNT SPECIALIST Work Phone: [facility]09-03-2025 10:24-4789DpT5% (BldA) [Mass fraction]93 %Idalmis Basilio COAL HAULER.PATIENT ACCOUNT SPECIALIST Work Phone: [facility]09-03-2025 10:24-0400Systolic blood olnjpjtb713 mm[Hg]Idalmis Basilio COAL HAULER.PATIENT ACCOUNT SPECIALIST Work Phone: [facility]07-25-2025 14:58-0400Body weapux572.8 cmBenjamin Ball DO Work Phone: [phone] [place], [place] 0577407-25-2025 14:58-0400 Body mass index (BMI) [Ratio]35.4 kg/g5Hkdottdb Ball DO Work Phone: [phone] [place], [place] 0577407-25-2025 14:58-0400 Body .17 kgBenjamin Ball DO Work Phone: [phone])[address] [place], [place] 0577407-25-2025 14:58-0400 Diastolic blood dmeqgyjv13 mm[Hg]Danilo Ball DO Work Phone: 1(515)[address] [place], [place] 0577407-25-2025 14:58-0400 Diastolic blood hosgloih89 mm[Hg]Daniol Ball DO Work Phone: [phone])[address] [place], [place] 0577407-25-2025 14:58-0400 Heart rate60 /minBenjamin Ball DO Work Phone: [phone])[address] [place], [place] 0577407-25-2025 14:58-0400 Respiratory rate12 /minBenjamin Ball DO Work Phone: [phone])[address] [place], [place] 0577407-25-2025 14:58-0400 Systolic blood yaowewlf628 mm[Hg]Danilo Ball DO Work Phone: [phone])[address] [place], [place] 0577407-25-2025 14:58-0400 Systolic blood vujjlbvm048 mm[Hg]Danilo Ball DO Work Phone: [phone])[address] [place], [place] 0577407-24-2025 15:56-0400 Body xiffut646.8 cmNicholas Brown DPM Work Phone: [facility] SouthZeqvofrzio23-01-3249 15:56-0400Body mass index (BMI) [Ratio]37.31 kg/i9Wditnhan Brown DPM Work Phone: [facility] SouthHjrmmmqclt28-57-7187 15:56-0400Body .94 kgNicholas Brown DPM Work Phone: [facility] SouthJngmlbmegh15-32-9609 15:56-0400Respiratory rate16 /minJabier Aldridge DPM Work Phone: [facility] Tendbpijat71-52-1598 14:25-0400Body mass index (BMI) [Ratio]36.38 kg/f2BhipnbjxAngel Medical Center COAL HAULER.PATIENT ACCOUNT SPECIALIST Work Phone: [place] Mpoycf34-18-5249 14:25-0400Body temperature 97.2 [degF][facility] COAL HAULER.PATIENT ACCOUNT SPECIALIST Work Phone: [place] Cqcaqz80-20-2114 14:25-0400Body kg [facility] COAL HAULER.PATIENT ACCOUNT SPECIALIST Work Phone: [place] Xvdmgc86-13-6498 14:25-0400Diastolic blood eeledjxd57 mm[Hg][facility] COAL HAULER.PATIENT ACCOUNT SPECIALIST Work Phone: [place] Lnkkrm80-07-5252 14:25-0400Heart rate76 /min [facility] COAL HAULER.PATIENT ACCOUNT SPECIALIST Work Phone: [place] Sjrchl56-01-2750 14:25-0400Respiratory rate 16 /minAngel Medical Center COAL HAULER.PATIENT ACCOUNT SPECIALIST Work Phone: [place] Crxhpt93-58-1780 14:25-2347CrI2% (BldA) [Mass fraction]94 %[facility] COAL HAULER.PATIENT ACCOUNT SPECIALIST Work Phone: [place] Gdwxbe93-38-9457 14:25-0400Systolic blood tammesco890 mm[Hg][facility] COAL HAULER.PATIENT ACCOUNT SPECIALIST Work Phone: [place] Rpnwjd76-09-9140 14:00-0400Body .8 cmBenjamin Ball DO Work Phone: [facility]07-04-2025 14:00-0400 Body gpywwkxspnq50.4 [degF]Danilo Ball DO Work Phone: [facility]07-04-2025 14:00-0400 Body mnfpdi001.39 kgBenjamin Ball DO Work Phone: [facility]07-04-2025 14:00-0400 Diastolic blood tjzbhgke16 mm[Hg]Danilo Ball DO Work Phone: [facility]07-04-2025 14:00-0400 Heart rate81 /minBenjamin Ball DO Work Phone: [facility]07-04-2025 14:00-0400 Respiratory rate18 /minBenjamin Ball DO Work Phone: [facility]07-04-2025 14:00-0400 SaO2% (BldA) [Mass fraction]94 %Danilo Ball DO Work Phone: [facility]07-04-2025 14:00-0400 Systolic blood hwsmwvoa574 mm[Hg]Danilo Ball DO Work Phone: [facility]06-18-2025 13:21-0400 Body onsjik654.3 cmPacc 4 Work Phone: [phone]06-18-2025 13:21-0400Body mass index (BMI) [Ratio]37.24 kg/m2Pacc 4 Work Phone: [phone]06-18-2025 13:21-0400Body temperature 97.9 [degF]Pacc 4 Work Phone: [phone]06-18-2025 13:21-0400Body .4 kgPacc 4 Work Phone: [phone]06-18-2025 13:21-0400Diastolic blood wdtwnags13 mm[Hg]Pacc 4 Work Phone: [phone]06-18-2025 13:21-0400Heart rate70 /min Pacc 4 Work Phone: [phone]06-18-2025 13:21-0400Respiratory rate 16 /minPacc 4 Work Phone: [phone]06-18-2025 13:21-6514RzS3% (BldA) [Mass fraction]99 %Pac 4 Work Phone: [phone]06-18-2025 13:21-0400Systolic blood ekwvvbhn844 mm[Hg]Pac 4 Work Phone: [phone]06-03-2025 12:56-0400Body mass index (BMI) [Ratio]36.82 kg/c9IxpithuxAngel Medical Center COAL HAULER.PATIENT ACCOUNT SPECIALIST Work Phone: [facility] CenterWroclx99-60-9408 12:56-0400Body temperature 97.9 [degF][facility] COAL HAULER.PATIENT ACCOUNT SPECIALIST Work Phone: WT[facility] CenterVsprso84-26-7040 12:56-0400Body kjywfk097.3 kgAngel Medical Center COAL HAULER.PATIENT ACCOUNT SPECIALIST Work Phone: CT[facility] CenterRydndi07-52-6621 12:56-0400Diastolic blood duuygvla02 mm[Hg]Angelique Bundrid COAL HAULER.PATIENT ACCOUNT SPECIALIST Work Phone: MT[facility] CenterRbsuyp93-50-5233 12:56-0400Heart rate89 /min [facility] COAL HAULER.[facility] Work Phone: [facility] CenterYdmfmg32-66-4177 12:56-0400Respiratory rate 16 /minAngel Medical Center COAL HAULER.PATIENT ACCOUNT SPECIALIST Work Phone: MT[facility] CenterWqmpcp92-47-0002 12:56-4248KqA4% (BldA) [Mass fraction]94 %[facility] COAL HAULER.PATIENT ACCOUNT SPECIALIST Work Phone: RT[facility] CenterRvqzvi19-55-0357 12:56-0400Systolic blood eoliotlw334 mm[Hg][facility] COAL HAULER.PATIENT ACCOUNT SPECIALIST Work Phone: UT[facility] CenterSfmlpk95-57-3297 15:30-0400Body wuidfj610.2 Luiz Ash MD Work Phone: [facility]05-29-2025 15:30-0400Body mass index (BMI) [Ratio]36.94 kg/y6ZgxyeAnibal Ash MD Work Phone: [facility]05-29-2025 15:30-0400Body temperature 97.7 [degF]Anibal Ash MD Work Phone: [facility]05-29-2025 15:30-0400Body zknkon278.7 kgAnibal Ash MD Work Phone: [facility]05-29-2025 15:30-0400Diastolic blood edhvwzts84 mm[Hg]Anibal Ash MD Work Phone: [facility]05-29-2025 15:30-0400Heart rate72 /min Anibal Ash MD Work Phone: [facility]05-29-2025 15:30-0400Respiratory rate 18 /minAnibal Ash MD Work Phone: [facility]05-29-2025 15:30-3942SyY8% (BldA) [Mass fraction]95 %Anibal Ash MD Work Phone: [facility]05-29-2025 15:30-0400Systolic blood lntyqexc686 mm[Hg]Anibal Ash MD Work Phone: [facility]05-29-2025 14:35-0400Body mass index (BMI) [Ratio]36.81 kg/m2Frankie Martinez MD Work Phone: [facility]05-29-2025 14:35-0400Body temperature 97.59 [degF]Frankie Martinez MD Work Phone: [facility]05-29-2025 14:35-0400Body yigddg540.8 kgFrankie Martinez MD Work Phone: [facility]05-29-2025 14:35-0400Diastolic blood uhdcfvly17 mm[Hg]Frankie Martinez MD Work Phone: [facility]05-29-2025 14:35-0400Heart rate70 /min Frankie Martinez MD Work Phone: [facility]05-29-2025 14:35-0400Respiratory rate 20 /minSkaleb Martinez MD Work Phone: [facility]05-29-2025 14:35-9709ItD2% (BldA) [Mass fraction]97 %Frankie Martinez MD Work Phone: [facility]05-29-2025 14:35-0400Systolic blood mm[Hg]Frankei Martinez MD Work Phone: [facility]05-15-2025 14:18-0400Body utikko629.8 cmJabier Aldridge DPM Work Phone: [facility] SouthSxcgqfrhdu96-57-0109 14:18-0400Body mass index (BMI) [Ratio]37.31 kg/z5RlbukjtuJabier Aldridge DPM Work Phone: [facility] SouthJhzkihagej85-23-6433 14:18-0400Body lnbved225.94 kgJabier Aldridge DPM Work Phone: [facility] SouthYbucjwrkcd72-49-6718 14:18-0400Respiratory rate18 /Adalberto Aldridge DPM Work Phone: [facility] SouthNxkosfatfq11-04-4139 13:39-0400Body tswgla904.8 cmOhio[facility]04-23-2025 13:39-0400Body mass index (BMI) [Ratio]35.5 kg/x7SvbboyerrOhiohealth Shelby Hospital04-23-2025 13:39-0400Body .26 kgOhiohealth Shelby Hospital04-23-2025 13:39-0400Diastolic blood cxsnljjo30 mm[Hg][facility]04-23-2025 13:39-0400 Heart rate65 /[facility]04-23-2025 13:39-0400 Respiratory rate12 /[facility]04-23-2025 13:39-0400 Systolic blood drvsnetz349 mm[Hg][facility]02-27-2025 14:30-0500Body aethlf211.8 cmJabier Aldridge DPM Work Phone: [facility] SouthMfgofiveuh45-29-2474 14:30-0500Body mass index (BMI) [Ratio]37.31 kg/h9EhlaofykJabier Aldridge DPM Work Phone: [facility] SouthXhokvfzvhf92-75-4293 14:30-0500Body qvemlw401.94 kgJabier Aldridge DPM Work Phone: [facility] SouthMclonoqivl91-52-2755 14:30-0500Respiratory rate18 /minNicchicho Aldridge DPM Work Phone: [facility] SouthUouqgxxjcy30-43-9930 14:27-0500Body dgfucu469.6 Luiz Ash MD Work Phone: [facility]02-24-2025 14:27-0500Body mass index (BMI) [Ratio]37 kg/y7WmjkuAnibal Ash MD Work Phone: [facility]02-24-2025 14:27-0500Body temperature 97.39 [degF]Anibal Ash MD Work Phone: [facility]02-24-2025 14:27-0500Body .4 kgAnibal Ash MD Work Phone: [facility]02-24-2025 14:27-0500Diastolic blood oaofjnyz19 mm[Hg]Anibal Ash MD Work Phone: [facility]02-24-2025 14:27-0500Heart rate72 /min Anibal Ash MD Work Phone: [facility]02-24-2025 14:27-0500Respiratory rate 20 /minAnibal Ash MD Work Phone: [facility]02-24-2025 14:27-1312EkU2% (BldA) [Mass fraction]96 %Anibal Ash MD Work Phone: [facility]02-24-2025 14:27-0500Systolic blood mm[Hg]Anibal Ash MD Work Phone: [facility]01-24-2025 13:33-0500Body zdzeou837.8 cmOhio[facility] Hospital01-24-2025 13:33-0500Body mass index (BMI) [Ratio]36.9 kg/l0SexqnmsgoOhiohealth Shelby Hospital01-24-2025 13:33-0500Body hyxnvl211.68 kgOhiohealth Shelby Hospital01-24-2025 13:33-0500Diastolic blood mm[Hg][facility]01-24-2025 13:33-0500 Heart rate66 /[facility]01-24-2025 13:33-0500 Respiratory rate12 /[facility]01-24-2025 13:33-0500 Systolic blood ewufcdvp430 mm[Hg][facility]12-19-2024 15:01-0500Body abfznc211.8 cmRadameschicho Brown DPM Work Phone: [facility] SouthTkbhrtogpy74-53-7283 15:01-0500Body mass index (BMI) [Ratio]37.31 kg/l0Lztvjcrx Brown DPM Work Phone: [facility] SouthEhqtjimsqk92-59-4475 15:01-0500Body tyuxmt557.94 kgNicholas Brown DPM Work Phone: [facility] SouthPpwidpzlwo23-53-6592 15:01-0500Respiratory rate16 /minJabier Brown DPM Work Phone: [facility] SouthTuerjrtfec75-98-7142 14:31-0500Body fnyyni500.6 cmIdalmis Basilio COAL HAULER.PATIENT ACCOUNT SPECIALIST Work Phone: [facility]11-18-2024 14:31-0500Body mass index (BMI) [Ratio]36.97 kg/b6RfhutuIdalmis Basilio COAL HAULER.PATIENT ACCOUNT SPECIALIST Work Phone: [facility]11-18-2024 14:31-0500Body temperature 97 [degF]Idalmis Praful COAL HAULER.PATIENT ACCOUNT SPECIALIST Work Phone: [facility]11-18-2024 14:31-0500Body .3 kgBrandynimee Praful COAL HAULER.PATIENT ACCOUNT SPECIALIST Work Phone: [facility]11-18-2024 14:31-0500Diastolic blood rrsjsird13 mm[Hg]Idalmis Praful COAL HAULER.PATIENT ACCOUNT SPECIALIST Work Phone: [facility]11-18-2024 14:31-0500Heart rate65 /min Idalmis Praful COAL HAULER.PATIENT ACCOUNT SPECIALIST Work Phone: [facility]11-18-2024 14:31-0500Respiratory rate 18 /minBrandynimee Praful COAL HAULER.PATIENT ACCOUNT SPECIALIST Work Phone: [facility]11-18-2024 14:31-4600AxU6% (BldA) [Mass fraction]97 %Idalmis Praful COAL HAULER.PATIENT ACCOUNT SPECIALIST Work Phone: [facility]11-18-2024 14:31-0500Systolic blood isuuaify259 mm[Hg]Idalmis Praful COAL HAULER.PATIENT ACCOUNT SPECIALIST Work Phone: [facility]10-21-2024 14:38-0400Body ekkkkx384.8 cmOhiohealth [facility] Hospital10-21-2024 14:38-0400Body mass index (BMI) [Ratio]36.2 kg/r9KatqddateOhiohealth Shelby Hospital10-21-2024 14:38-0400Body zdqgvy723.53 [facility] 14:38-0400Diastolic blood mm[Hg][facility]10-21-2024 14:38-0400 [facility]70 [facility] 14:38-0400 Respiratory rate12 [facility]10-21-2024 14:38-0400 Systolic blood matkvjny939 mm[Hg][facility]10-10-2024 15:30-0400Body .8 cmJabier Aldridge DPM Work Phone: [phone] 15:30-0400Body mass index (BMI) [Ratio]37.31 kg/y6VuwyjjpoJabier Aldridge DPM Work Phone: [phone] 15:30-0400Body .94 kgJabier Aldridge DPM Work Phone: [facility] SouthPzkgzprgzk59-23-1403 15:30-0400Respiratory rate17 /minJabier Aldridge DPM Work Phone: [facility] SouthTrhjwooiav25-94-1996 13:32-0400Body qnalgk720.6 Luiz Ash MD Work Phone: [facility]08-19-2024 13:32-0400Body mass index (BMI) [Ratio]38.03 kg/y2IdfwcAnibal Ash MD Work Phone: [facility]08-19-2024 13:32-0400Body temperature 97.59 [degF]Anibal Ash MD Work Phone: [facility]08-19-2024 13:32-0400Body xhgucw310.6 kgAniabl Ash MD Work Phone: [facility]08-19-2024 13:32-0400Diastolic blood ysxkuuim82 mm[Hg]Anibal Ash MD Work Phone: [facility]08-19-2024 13:32-0400Heart rate91 /min Anibal Ash MD Work Phone: [facility]08-19-2024 13:32-0400Respiratory rate 20 /minAnibal Ash MD Work Phone: [place] [address]-19-2024 13:32-6124JxZ4% (BldA) [Mass fraction]100 %Anibal Ash MD Work Phone: [facility]08-19-2024 13:32-0400Systolic blood orgylswf104 mm[Hg]Anibal Ash MD Work Phone: [facility]07-26-2024 14:290400Body .8 cmOhio[facility]07-26-2024 14:290400Body mass index (BMI) [Ratio]37.2 kg/y6OsshpddzyOhiohealth Shelby Hospital07-26-2024 14:0400Body dktlcu925.7 kgOhio[facility]07-26-2024 14:290400Diastolic blood vlmuptno42 mm[Hg][facility]07-26-2024 14:290400 Heart rate84 [facility]-26-[facility] 14:290400 Respiratory rate20 [facility]07-26-2024 14:29-0400 Systolic blood mm[Hg][facility]05-24-2024 11:310400Body sforxt388.8 cmOhio[facility] Hospital05-24-2024 11:31-0400Body mass index (BMI) [Ratio]36.9 kg/c9BexicbipxOhiohealth Shelby Hospital05-24-2024 11:310400Body jgvyoq402.8 kg[facility] 08-15-2023 11:31-0400Diastolic blood fqjtsotr94 mm[Hg][facility]05-24-2024 11:31-0400Heart rate62 /[facility] 08-15-2023 11:31-0400Respiratory rate16 /[facility] 08-15-2023 11:31-0400Systolic blood leojmhqd905 mm[Hg][facility]05-20-2024 13:01-0400Body mass index (BMI) [Ratio]37.39 kg/c8OhibkAnibal Ash MD Work Phone: [facility]05-20-2024 13:0400Body temperature 97.5 [degF]Anibal Ash MD Work Phone: [facility]05-20-2024 13:01-0400Body ssnwhy748.6 kgAnibal Ash MD Work Phone: [facility]05-20-2024 13:01-0400Diastolic blood tqhvivra74 mm[Hg]Anibal Ash MD Work Phone: [facility]05-20-2024 13:01-0400Heart rate76 /min Anibal Ash MD Work Phone: [facility]05-20-2024 13:01-0400Respiratory rate 16 /minAnibal Ash MD Work Phone: [facility]05-20-2024 13:01-6484QcM9% (BldA) [Mass fraction]94 %Anibal Ash MD Work Phone: [facility]05-20-2024 13:01-0400Systolic blood vkowhpcf198 mm[Hg]Anibal Ash MD Work Phone: [facility]04-12-2024 14:44-0400Body aahlbj519.8 cmOhio[facility]04-12-2024 14:44-0400Body mass index (BMI) [Ratio]37.5 kg/k6QvxaccmzeOhiohealth Shelby Hospital04-12-2024 14:44-0400Body wqfzua663.89 kgOhio[facility]04-12-2024 14:44-0400Diastolic blood mm[Hg][facility]04-12-2024 14:44-0400 Heart rate82 [facility]04-12-2024 14:44-0400 Respiratory rate20 /[facility]04-12-2024 14:44-0400 Systolic blood iaougfmt071 mm[Hg][facility]02-20-2024 12:24-0500Body uaymlq711.8 Kenan Juarez MD Work Phone: [facility]02-20-2024 12:24-0500 Body mass index (BMI) [Ratio]37.52 kg/m2Julian Juarez MD Work Phone: [facility]02-20-2024 12:24-0500 Body kgcrzdtrcni34.59 [degF]Julian Juarez MD Work Phone: [facility]02-20-2024 12:24-0500 Body zuceyf965.62 kgJulian Juarez MD Work Phone: [facility]10-11-2023 14:00-0400 Body nfyblp021.8 cmBenjamin Ball Other [employer] Other 10-11-2023 14:00-0400Body mass index (BMI) [Ratio] 37.02 kg/z0Fiwknstw Ball Other [employer] Other 10-11-2023 14:00-0400Body zuvdbd549.03 kgBenjamin Ball Other [employer] Other 10-11-2023 14:00-0400Diastolic blood mm[Hg] Danilo Ball Other [employer] Other 10-11-2023 14:00-0400Respiratory rate16 /minBenjamin Ball Other [employer] Other 10-11-2023 14:00-0400Systolic blood yepkfdzx935 mm[Hg] Danilo Ball Other [employer] Other 07-11-2023 14:00-0400Body .8 cmBenjamin Ball Other [employer] Other 07-11-2023 14:00-0400Body mass index (BMI) [Ratio] 37.16 kg/c1Ijgvtkvi Ball Other [employer] Other 07-11-2023 14:00-0400Body iharxo586.48 kgBenjamin Ball Other [employer] Other 07-11-2023 14:00-0400Diastolic blood vmvxzyyr95 mm[Hg] Danilo Ball Other [employer] Other 07-11-2023 14:00-0400Respiratory rate20 /minBenjamin Ball Other [employer] Other 07-11-2023 14:00-0400Systolic blood xcbgbyna641 mm[Hg] Danilo Ball Other [employer] Other 04-11-2023 16:00-0400Body qazhaq064.8 cmBenjamin Ball Other [employer] Other 04-11-2023 16:00-0400Body mass index (BMI) [Ratio] 37.33 kg/e2Gvwtkybu Ball Other [employer] Other 04-11-2023 16:00-0400Body .03 kgBenjamin Ball Other [employer] Other 04-11-2023 16:00-0400Diastolic blood trybfkzk49 mm[Hg] Danilo Ball Other [employer] Other 04-11-2023 16:00-0400Respiratory rate12 /minBenjamin Ball Other [employer] Other 04-11-2023 16:00-0400Systolic blood jivutzzg797 mm[Hg] Danilo Ball Other [employer] Other 01-10-2023 14:30-0500Body yruaip337.8 cmBenemeterio Clrak Other [employer] Other 01-10-2023 14:30-0500Body mass index (BMI) [Ratio] 37.76 kg/q9Llnuylge Ball Other [employer] Other 01-10-2023 14:30-0500Body yojanp321.39 kgBenemeterio Clark Other [employer] Other 01-10-2023 14:30-0500Diastolic blood drbimuzs39 mm[Hg] Danilo Clark Other [employer] Other 01-10-2023 14:30-0500Respiratory rate20 /minBelinda Clark Other [employer] Other 01-10-2023 14:30-0500Systolic blood fiktzgnc117 mm[Hg] Danilo Clark Other [employer] Other Encounters Encounter DateEncounter TypeCare ProviderFacilityStart: 01-10-2025 End: 65-87-3660kxncbgeoxwKcfkufqj Ball DO Work Phone: [facility] ClinicStart: 01-10-2025 End: 85-23-2308Bsctzkc encounter procedureBenemeterio Ball DO-[facility] Work Phone: Start: 11-24-2024 End: 13-98-6072Pjzfyb outpatient visit 25 minutesIdalmis Basilio APRN.PATIENT ACCOUNT SPECIALIST Work Phone: Hematology/OncologyComment on above: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 Work Phone: Start: 11-17-2024 End: 24-59-0728ejqdrqhovzEFCVAVLB Que BALLFacility:[facility] Hospitaltart: 10-15-2024 End: 03-07-0277geoyibyzqbRfqyvlme Ball DO Work Phone: [facility] Work Phone: Start: 10-15-2024 End: 22-61-1517Wuvwnjl encounter procedureBelinda Ball DO-[facility] Work Phone: Start: 10-14-2024 End: 51-35-9536Hxvagup encounter procedureJabier Aldridge DPM Work Phone: noms CI PODIATRYComment on above:Diabetes mellitus due to underlying condition with diabetic polyneuropathy, unspecified whether terminal clerk insulin use (HCC) (Primary Dx); Pain due to onychomycosis of toenails of both feet; Acquired deformity of right toe; Acquired deformity of left toeStart: 10-14-2024 End: 03-65-3650pvecwpztcxLCEDOVIZ A BROWNNot AvailableStart: 10-14-2024 End: 45-03-8569Mzegpykelvin Aldridge DPM Work Phone: noMS CI PODIATRYStart: 10-14-2024 End: 81-08-2909Melfwykelvin Aldridge DPM Work Phone: noms CI PODIATRYStart: 10-12-2024 End: 68-69-6899Tbueyop encounter Ramírez Donis APRN.PATIENT ACCOUNT SPECIALIST Work Phone: palliative MedicineComment on above:Palliative care by specialist (Primary Dx); Multiple myeloma not having achieved remission (HCC); Parotid neoplasm; Chronic pain due to neoplasm; Constipation due to opioid therapyStart: 10-12-2024 End: 69-93-5194bzitpgqhdjGRDDKTPT J BUNDRIDGEFacility:[facility] Start: 10-12-2024 End: 83-40-1644Dpwvvab encounter procedureGurpreet Pang MD Work Phone: OtolaryngologyComment on above:Parotid neoplasm (Primary Dx); Cancer of the parotid gland (HCC)Start: 10-12-2024 End: 63-52-2989gzszrdhzemSDHUXU SCHARPFFacility:[facility] Hospitaltart: 09-27-2024 End: 38-99-5007njbxazbwglAdg/[place] Work Phone: Hematology/OncologyComment on above: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); Mass of ear auricle, leftStart: 09-24-2024 End: 34-48-3836Ouorlycxm department patient visitDanilo Clark DO Work Phone: [phone]-Aydujvsbz Room Work Phone: Start: 09-23-2024 End: 18-93-7419Eyhujriex encounterGurpreet Pang MD Work Phone: Head and Neck InstituteComment on above:Patient QuestionStart: 36-92-8196Zds-patient / Non-visitCatjaleesa Clark [facility] Work Phone: Start: 87-67-0089Zkb-patient / Non-visitGurpreet Pang MD-[facility] Work Phone: Start: 40-31-9312Ohv-patient / Non-visitGurpreet Pang MD-[facility] Work Phone: Start: 66-50-4682Isw-patient / Non-visitGurpreet Pang MD-[facility] Work Phone: Start: 09-17-2024 End: 56-15-6066esshbpdoycZYJZODAZ E BALLFacility:[facility] HospitalStart: 09-16-2024 End: 11-50-6466acjwhumhtkFECSGUEE E BALLFacility:[facility] HospitalStart: 09-09-2024 End: 36-13-7728Xjlhldpqc encounterGabi Giovannijarochoque RNPre AnesthesiaComment on above: Anticoagulation Follow UpStart: 62-54-6805Lmq-patient / Non-visitJosechhyaa Pang MD-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]Start: 09-08-2024 End: 17-20-5455Jwjcdzi encounter procedureRicha Kyle RT(R)RadiologyStart: 09-08-2024 End: 80-99-5493Yvriamhwg to establishmentUniversity [facility] Hospital 4 Work Phone: Pre AnesthesiaStart: 09-08-2024 End: 97-15-2194Hajcccyszz consultationPeacehealth [facility] 4 Work Phone: Pre AnesthesiaComment on above:Mucoepidermoid carcinoma (HCC); Type 2 diabetes mellitus with diabetic chronic kidney disease, unspecified CKD stage, unspecified whether detention insulin use (HCC); Anticoagulated; Stage 3b chronic kidney disease (HCC); Multiple myeloma not having achieved remission (HCC); Chronic pain due to neoplasm; Primary hypertension; BMI 37.0-37.9, adultStart: 09-08-2024 End: 83-77-5074wnkksuztxhNtltpf M Shimrock RT(R)RadiologyComment on above:Radio Gen RMPStart: 09-03-2024 End: 61-31-6241icdthfjhrsAck Magalski RNPre AnesthesiaStart: 09-03-2024 End: 54-33-5623Eltqntkvca consultationSara Pritchett RNPre AnesthesiaComment on above:Opened In ErrorStart: 08-31-2024 End: 28-67-8910Zilwrnvji encounterJolong Abreurpf MD Work Phone: [facility] and Neck InstituteStart: 08-24-2024 End: 41-31-7890Edfsgtv encounter procedureAngelique Donis APRN.CNP Work Phone: palliative MedicineComment on above:Palliative care by specialist (Primary Dx); Parotid neoplasm; Multiple myeloma not having achieved remission (HCC); Chronic pain due to neoplasm; Constipation due to opioid therapyStart: 08-24-2024 End: 47-01-9478fopthmausuXMAYVNAE E BALLFacility:[facility] Hospitaltart: 08-20-2024 End: 23-96-2601Gqpzplapk encounterAnibal Ash MD Work Phone: Cancer Appts MCStart: 08-19-2024 End: 81-82-5130Yjjxug outpatient visit 25 minutesAnibal Ash MD Work Phone: Hematology/OncologyComment on above:Multiple myeloma not having achieved remission (HCC) (Primary Dx); 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 Work Phone: Start: 08-19-2024 End: 41-11-9362nxtjaqlldxUAOKVF SCHARPFFacility:[facility] Hospitaltart: 08-13-2024 End: 15-98-7726Gqyjlyz encounter procedureGurpreet Pang MD Work Phone: OtolaryngologyComment on above:Parotid neoplasm (Primary Dx); Parotid mass; Multiple myeloma not having achieved remission (HCC)Start: 08-13-2024 End: 22-15-8975tlvbliiblkBGNEITYE E BALLFacility:[facility] Hospitaltart: 08-05-2024 End: 14-28-2588Ujyigdu encounter procedureJabier Aldridge DPM Work Phone: noMS CI PODIATRYComment on above:Diabetes mellitus due to underlying condition with diabetic polyneuropathy, unspecified whether detention insulin use (CMS/HCC) (Primary Dx); Pain due to onychomycosis of toenails of both feet; Acquired deformity of right toe; Acquired deformity of left toeStart: 08-05-2024 End: 68-09-2155fvnzehxrejYDXDUSAR A BROWNNot AvailableStart: 08-05-2024 End: 80-86-6483Sazhpz flowsBenji Aldridge DPM Work Phone: noms CI PODIATRYStart: 08-05-2024 End: 67-11-1757Kpsapq Rony Aldridge DPM Work Phone: noMS CI PODIATRYStart: 08-02-2024 End: 78-93-2230Mogcbbczr encounterRafaela Rodriguez RNHematology/OncologyComment on above:ENT Path resultsStart: 07-30-2024 End: 97-32-5944Vlknnbzqa encounterGurpreet Pang MD Work Phone: Mobile ServicesComment on above:07645- bill; Initial ConsultStart: 07-28-2024 End: 80-18-5633Xqdsilylj encounterGurpreet Pang MD Work Phone: OtolaryngologyStart: 07-21-2024 End: 70-48-7258hwzwllkhelSMGGTTDN E BALLFacility:[facility] Hospitaltart: 79-41-5576Nai-patient / Non-visitBenbrandynmin Ball DO-[facility] Work Phone: Start: 07-16-2024 End: 11-16-0637rnrkawbecjBPXVFYUF E BALLFacility:[facility] Hospitaltart: 07-14-2024 End: 69-53-4553ylmmmmsbtaZnvuzgflbEast [facility] Work Phone: Start: 07-14-2024 End: 20-49-0002Hehesqb encounter procedureNovant Health Physician [facility] Work Phone: Start: 70-06-7750Ilzunvq encounter procedureMorrow County Hospitaltart: 07-08-2024 End: 98-47-9705Kmkjsfk encounter procedureGurpreet Pang MD Work Phone: OtolaryngologyComment on above:Multiple myeloma not having achieved remission (HCC) (Primary Dx); Parotid massStart: 07-08-2024 End: 99-85-2145Hrbakrlmm encounterGurpreet Pang MD Work Phone: OtolaryngologyComment on above:Biopsy RequestStart: 07-08-2024 End: 05-09-2281hqyiosxsknWESHWLKI E BALLFacility:[facility]tart: 05-28-2024 End: 53-05-5562ftaqwefbikNEIKBMEK E BALLFacility:[facility] Hospitaltart: 05-28-2024 End: 85-31-5357Gdtiqernse hospital visit by physicianArrival Time Radiology Work Phone: Radiology Pet CTComment on above:Mass of ear auricle, left [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]Start: 05-20-2024 End: 92-67-4460Utnbylt encounter Jesus Aldridge DPM Work Phone: NOMS CI PODIATRYComment on above:Diabetes mellitus due to underlying condition with diabetic polyneuropathy, unspecified whether detention insulin use (CMS/HCC) (Primary Dx); Pain due to onychomycosis of toenails of both feet; Acquired deformity of right toe; Acquired deformity of left toeStart: 05-20-2024 End: 98-17-9702uxghgewxdyDXHQLOCT A BROWNNot AvailableStart: 05-20-2024 End: 28-68-6233Vjyepr Rony Aldridge DPM Work Phone: noms CI PODIATRYStart: 05-20-2024 End: 61-31-0735Qwhdfi Rony Aldridge DPM Work Phone: noms CI PODIATRYStart: 05-17-2024 End: 25-39-5113vaagchjkxvQIJWLERS E BALLFacility:[facility]tart: 05-17-2024 End: 30-15-8797Cedvqc outpatient visit 40 minutesAnibal Ash MD Work Phone: Hematology/OncologyComment on above:Mass of ear auricle, left (Primary Dx); Multiple myeloma not having achieved remission (HCC); Thrombocytopenia (HCC); Chronic anticoagulation; Type 2 diabetes mellitus with diabetic chronic kidney disease, unspecified CKD stage, unspecified whether detention insulin use (HCC); Stage 3b chronic kidney disease (HCC)Start: 05-17-2024 End: 86-33-1740Kintrohaj encounterAnibal Ash MD Work Phone: Cancer Appts MCComment on above:Future Appointment Start: 05-10-2024 End: 87-59-1789oomrxgizprJCCKOWBH E BALLFacility:[facility] Hospitaltart: 44-60-1654Dbs-patient / Non-visitFirsentara [facility] Work Phone: Start: 04-16-2024 End: 43-88-5008mdpwasltntLsneucqpfEast [facility] City Hospital Work Phone: Start: 04-16-2024 End: 52-26-2980Qikqmkq encounter procedureNovant Health Physician GroupCenterville Work Phone: Start: 03-11-2024 End: 57-78-6016Ytnjfgf encounter Jesus Aldridge DPM Work Phone: noms CI PODIATRYComment on above:Diabetes mellitus due to underlying condition with diabetic polyneuropathy, unspecified whether terminal clerk insulin use (CMS/HCC) (Primary Dx); Pain due to onychomycosis of toenails of both feet; Acquired deformity of right toe; Acquired deformity of left toeStart: 03-11-2024 End: 99-09-7177appfrdlrajSWVOULIZ A BROWNNot AvailableStart: 03-11-2024 End: 38-40-9500Fcjdkx flowsBenji Aldridge DPM Work Phone: noms CI PODIATRYStart: 03-11-2024 End: 55-69-8328Hppnda Rony Aldridge DPM Work Phone: noms CI PODIATRYStart: 02-09-2024 End: 83-25-3481clbftthcptOORVLTTI E BALLFacility:[facility] Hospitaltart: 02-09-2024 End: 75-94-3854Ftojug outpatient visit 25 minutesIdalmis Basilio APRN.CNP Work Phone: Hematology/OncologyComment on above:Multiple myeloma not having achieved remission (HCC) (Primary Dx); Stage 3a chronic kidney disease (HCC)Start: 02-02-2024 End: 72-68-8812igtbnfwuvqMFSFRBXM E BALLFacility:[facility]tart: 19-44-3063Tuk-patient / Non-visitNovant Health Physician Group-[facility] Work Phone: Start: 01-12-2024 End: 73-20-7484gyhoqdtxwkRjasgqecoMount Carmel Health System Work Phone: Start: 01-12-2024 End: 43-10-4163Ldwytnc encounter procedureRobertsarasotajuan Physician GroupCenterville Work Phone: Start: 01-01-2024 End: 37-67-2858Onllonj encounter Jesus Aldridge DPM Work Phone: noms CI PODIATRYComment on above:Diabetes mellitus due to underlying condition with diabetic polyneuropathy, unspecified whether terminal clerk insulin use (CMS/[facility]) (Primary Dx); Pain due to onychomycosis of toenails of both feet; Acquired deformity of right toe; Acquired deformity of left toeStart: 01-01-2024 End: 73-05-0593ozzoxikvbhUHWYCLIO A BROWNNot AvailableStart: 01-01-2024 End: 92-17-3114Goaoen flowsBenji Aldridge DPM Work Phone: noms CI PODIATRYStart: 01-01-2024 End: 98-86-3624Fpiwcq Rony Aldridge DPM Work Phone: noms CI PODIATRYStart: 11-10-2023 End: 44-52-3429Eedjap outpatient visit 25 minutesAnibal Ash MD Work Phone: Hematology/OncologyComment on above:Multiple myeloma not having achieved remission (HCC) (Primary Dx); Stage 3a chronic kidney disease (HCC); Thrombocytopenia (HCC)Start: 16-58-8852Xqi-patient / Non-visitNovant Health Physician [facility] Work Phone: Start: 10-23-2023 End: 70-85-2605bgzbkgzuclRDVBUXCH A BROWNNot AvailableStart: 10-17-2023 End: 71-58-0312xbcaowcgybGpwdrctfbMount Carmel Health System Work Phone: Start: 10-17-2023 End: 26-94-3519Ttmtpte encounter procedureNovant Health Physician GroupCenterville Work Phone: Start: 38-11-1068Mwk-patient / Non-visitNovant Health Physician [facility] Work Phone: Start: 08-29-2023 End: 75-14-9746Uomftrrdmk hospital visit by physicianArrival Time Radiology Work Phone: Radiology Pet CTComment on above:Multiple myeloma not having achieved remission (HCC) [C90.00]Start: 52-97-6510devpuvlmvyFennrsdkxMount Carmel Health System Work Phone: Start: 88-53-6016Vxe-patient / Non-visitNovant Health Physician [facility] Work Phone: Start: 08-15-2023 End: 73-39-3993sbyhcjtumyTvkiwfnquMount Carmel Health System Work Phone: Start: 08-15-2023 End: 16-57-9707Jrqszdo encounter procedureNovant Health Physician Group-[facility] Work Phone: Start: 52-83-8040Tuyaszkri encounterAnibal Ash MD Work Phone: Cancer Appts MCComment on above:ResultsStart: 08-11-2023 End: 71-82-3029Wybalx outpatient visit 25 minutesAnibal Ash MD Work Phone: Hematology/OncologyComment on above:Multiple myeloma not having achieved remission (HCC) (Primary Dx); Flank pain; Mild episode of recurrent major depressive disorder (HCC); Thrombocytopenia (HCC); Stage 3b chronic kidney disease (HCC); Stage 3a chronic kidney disease (HCC)Start: 79-44-4874Vwn-patient / Non-visit [facility] Work Phone: Start: 43-24-2742Tlf-patient / Non-visitNovant Health Physician [facility] Work Phone: Start: 03-70-6692Dyd-patient / Non-visitNovant Health Physician GroupKind[facility] Work Phone: Start: 07-04-2023 End: 91-15-0344fpeyvggqeqZjzsvuzwuMount Carmel Health System Work Phone: Start: 07-04-2023 End: 83-14-0152Guqtcyk encounter procedureNovant Health Physician Group-[facility] Work Phone: Start: 51-51-5939Apu-patient / Non-visitNovant Health Physician GroupKind[facility] Work Phone: Start: 64-86-0498phpnjksgqgVVHSelect Medical [facility], Avontart: 05-13-2023 End: 40-97-0388ktyxdjtczaRLE P REZAEEPremier Health [facility] AmbulatoryStart: 05-13-2023 End: 13-39-6498Itlhoj outpatient new 60 minutesRod Kristi Juarez MD Work Phone: uh [facility] HospitalComment on above:Parotid mass (Primary Dx)Start: 02-27-2023 End: 43-63-1583ioilatfynlBaytibuo Ball Other [employer] Other Start: 13-04-0760Rvilyslsg encounterBenjamin BallFPG Ball Medical ClinicStart: 02-04-2023 End: 49-97-8520xdyazgdllbOpuqrhqr Ball Other [employer] Other Start: 84-39-3053Bayvfhxfc encounterBenjamin BallFPG [facility] Medical ClinicStart: 02-03-2023 End: 75-42-0243xajelpzvxdEejwuqbz Ball Other [employer] Other Start: 28-07-1803Nzeeiwzlf encounterBenjamin BallFPG [facility] Medical ClinicStart: 01-30-2023 End: 00-80-5744hdxjblbifzVmbvzmwa Ball Other [employer] Other Start: 65-61-6058Lrwjaaajg encounterBenjamin BallFPG [facility] ClinicStart: 01-21-2023 End: 36-00-7997uhytlyvyzlOukahpej Ball Other [employer] Other Start: 58-73-7021Uzbkipnew encounterBenjamin BallFPG [facility] ClinicStart: 01-09-2023 End: 76-18-4405jhcuqhkvuzHskgjpyz Ball Other [employer] Other Start: 18-28-6359Rgrlbioop encounterBenjamin BallFPG [facility] ClinicStart: 01-06-2023 End: 77-32-9513cqhglgjnjmGbgptxva Ball Other [employer] Other Start: 71-99-4359Usqwgvxog encounterBenjamin BallFPG [facility] ClinicStart: 01-01-2023 End: 59-79-3687bojzxwckqkKqrmpjar Ball Other [employer] Other Start: 27-31-6998Xsheqs outpatient visit 25 minutes Danilo BallFPG [facility] ClinicStart: 10-01-2022 End: 84-54-1627zeycecivgcRftgxazl Ball Other [employer] Other Start: 42-38-0839Wfbdhj outpatient visit 25 minutes Danilo BallFPG [facility] ClinicStart: 08-01-2022 End: 54-41-6686umhoiumqylEksdqxch Ball Other [employer] Other Start: 56-44-7912Hiwqufwrj encounterBenjamin BallFPG [facility] Medical ClinicStart: 07-22-2022 End: 09-48-5210bnkpvbvrraBYXZEA H FAWWADFacility:D7Xbgyi: 07-03-2022 End: 54-28-0757mxneciyyihBivvwgcv Ball Other noLink_A_[employer] Tellybean Other Start: 08-92-1716Phbtygagp encounterBenjamin BallFPG Ball Medical ClinicStart: 07-02-2022 End: 57-56-1634dyvmjsmkbpEktnitrc Ball Other noOpenRent Other Start: 15-52-7807Ufpqcsa encounter procedureBenjamin BallFPG Ball Medical ClinicStart: 06-24-2022 End: 60-96-9219beqlkmlcjtNVKLRE H FAWWADFacility:Z5Rckkj: 05-31-2022 End: 38-45-8060cchjcrgkplDmoallli Ball Other [employer] Other Start: 28-70-8144Dijeyypjv encounterBenjamin BallFPG [facility] Medical ClinicStart: 05-22-2022 End: 31-58-8239bykczjenonZPUCVU H FAWWADFacility:X3Rnnae: 05-10-2022 End: 51-37-3787qkicpizjqiTptqojvf Ball Other noOpenRent Other Start: 16-29-3382Jolcuhtdg encounterBenjamin BallFPG [facility] Medical ClinicStart: 05-01-2022 End: 84-77-1024lpjxwdgxcxEkvbjlax Ball Other [employer] Other Start: 91-77-3572Jelpmdjhi encounterBenjamin BallFPG [facility] Medical ClinicStart: 04-30-2022 End: 70-76-7803chygwiexmiWJ DANILO DelivKok[employer]ellybean Other Start: 99-30-6976Igrdflafx encounterBenjamin BallFPG [facility] Medical ClinicStart: 04-24-2022 End: 26-09-7676sctmoqnpusLGDDGK H FAWWADFacility:N6Jtybo: 04-02-2022 End: 00-11-1764dtfinpuohfBpcewvxg Ball Other [employer]ent Other Start: 34-56-6288Qkjagm outpatient visit 25 minutes Danilo BallFPG [facility] ClinicStart: 03-25-2022 End: 37-01-2397ppjwdbsspvBSVSJI H FAWWADFacility:V1Zkxyw: 02-21-2022 End: 69-38-7939osoifhmquqUAIPWL H FAWWADFacility:Q8Rayqp: 02-11-2022 End: 54-79-7314chrjmxsdavMkxhkNicole Ash MD Work Phone: Hematology/OncologyComment on above: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) [C90.01 (ICD-10-CM)] (Primary Dx)Start: 02-11-2022 End: 05-51-4351Cmjskwhxyrow consultation with Kristina Ash MD Work Phone: SANDUSKYStart: 02-01-2022 End: 58-49-4973qmxjluussgZwbjdNicole Ash MD Work Phone: Hematology/OncologyComment on above:Multiple myeloma not having achieved remission (HCC) (Primary Dx)Start: 02-01-2022 End: 26-58-3853Isynorisubkh consultation with Kristina Ash MD Work Phone: SANDUSKYStart: 01-22-2022 End: 02-20-5700hsakcsxzfkRMJMBU H FAWWADFacility:T7Njlnt: 01-09-2022 End: 13-38-5932zskljynbztHT DANILO BALLFacility:F9Ohwpk: 12-23-2021 End: 11-29-5874iaxnmczmeqJXEHIQ H FAWWADFacility:E0Vjksm: 11-22-2021 End: 84-60-4202lxxcwgvcgwGRYXAD H FAWWADFacility:K7Uhtqg: 10-22-2021 End: 93-74-4783tlquuvuisuQHWMFL H FAWWADFacility:W2Rjkik: 10-03-2021 End: 21-50-1650kqmafisonoSK DANILO BALLFacility:D2Sempc: 10-03-2021 End: 36-03-6582txpwfishlwVMISNS H FAWWADFacility:C4Dbkjj: 85-93-1929Qkavg health examinationBenemeterio Clark Other [facility] [employer] Other Start: 04-28-2017 End: 79-69-3153PatsgmkvudWvwerxw AdamowiczFacility:FTMCStart: 04-24-2017 End: 92-44-6159TfauqthzlsRqsdqqd AdamowiczFacility:[facility] HOSPITALtart: 02-03-2017 End: 28-59-7262FotwrszahfEvgbser~[id number] UNKNOWN HoyFacility:[facility] Procedures DateProcedureProcedure DetailPerforming ClinicianStart: 90-83-9482Rkhujvpnst exam chest 2 viewsGurpreet Pang MD Work Phone: Start: 40-64-4350Pbutoc-up visitFollow UpGURPREET MENDOZAFStart: 99-64-7602Jy soft tissue neck w/contrast materialViveedgar Ash MD Work Phone: Start: 01-86-2860Gok imaging for ct attenuation whole bodyAnibal Ash MD Work Phone: Start: 49-28-2604Zqaf bld gluc mntr dev cleared fda spec home useCcf ProviderStart: 32-49-1298Akabkbgms for malignant neoplasm of colonBenjamin Ball Other Start: 33-06-3770Uzzqqmzfq for malignant neoplasm of prostateBenjamin Ball Other Depression screeningBenjamin Ball Other Depression screeningBenjamin Ball Other Plan of Treatment DateCare ActivityDetailAuthorStart: 91-68-5469Kavfflqsp B screeningUrine Albumin:Creatinine RatioHenlawson ClinicStart: 02-23-2025 End: 24-33-8882Umjzor-up veecctzqe70/03/2025 2:00 PM EST Visit (SP) Office Hematology/Oncology [address] [place], [place] [phone] Anibal Ash MD [address] [place] [address] [place] [address] 3 month follow up with Dr Blas / lab results Hematology/OncologyComment on above:3 month follow up with Dr Blas / lab results Start: 42-24-4807Nqbcxqeetg A1c dntbngvemzeAuO7DTuptmpsxc ClinicStart: 02-16-2025 End: 65-56-7933Ewuibeg encounter pysmsrhwc74/26/2025 2:00 PM EST Office Visit [facility] [address] [place] [address] 3 [facility] labNortBe[facility]ont [facility] Comment on above:3 month labStart: 84-75-9589PLUAWWKY SCREENDIABETES SCREEN [facility] Centertart: 11-24-2024 End: 16-85-2470Uadlus-up gdrezwdwl40/03/2025 10:40 AM EDT Visit (SP) Office Hematology/Oncology [address] [place] [address] Anibal Ash MD [address] [place] [address] 3 month follow upHematology/OncologyComment on above:3 month follow upStart: 37-67-6896Hntkxqjqr vaccinationUniversity Hospitals TriPoint Medical Centertart: 11-19-2024 End: 75-82-3053Ibeo-2-Microglobulin [Mass/volume] in Serum or PlasmaB2 MICROGLOBULIN Lab Routine Multiple myeloma not having achieved remission (HCC) 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) Expected: 11/19/2024 (Approximate), Expires: 08/19/2025[facility] Work Phone: Comment on above:Expected: 11/19/2024 (Approximate), Expires: 08/19/2025Start: 11-19-2024 End: 85-87-2418Tizijva.ionized [Moles/volume] in BloodCALCIUM, IONIZED Lab Routine Multiple myeloma not having achieved remission (HCC) 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) Expected: 11/19/2024 (Approximate), Expires: 08/19/2025 [facility] HospitalComment on above:Expected: 11/19/2024 (Approximate), Expires: 08/19/2025Start: 11-19-2024 End: 43-79-2143ZMM W Auto Differential panel - BloodCOMPLETE BLOOD COUNT AND DIFFERENTIAL Lab Routine Multiple myeloma not having achieved remission (HCC) 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) Expected: 11/19/2024 (Approximate), Expires: 08/19/2025leveland ClinicComment on above:Expected: 11/19/2024 (Approximate), Expires: 08/19/2025Start: 11-19-2024 End: 01-42-6445Jumoumrmpsemj metabolic 2000 panel - Serum or PlasmaCOMPREHENSIVE METABOLIC PANEL Lab Routine Multiple myeloma not having achieved remission (HCC) CA -cancer of parotid gland (HCC) Expected: 11/19/2024 (Approximate), Expires: 08/19/2025leveland ClinicComment on above:Expected: 11/19/2024 (Approximate), Expires: 08/19/2025Start: 11-19-2024 End: 27-97-2233IGGNU/COTA,FREE,SERKAPPA/COTA,FREE,SER Lab Routine Multiple myeloma not having achieved remission (HCC) CA - cancer ofparotid gland (HCC) Expected: 11/19/2024 (Approximate), Expires: 02/18/2025leveland ClinicComment on above:Expected: 11/19/2024 (Approximate), Expires: 02/18/2025Start: 11-19-2024 End: 98-18-5684Qdcfnom dehydrogenase [Enzymatic activity/volume] in Serum or PlasmaLACTATE DEHYDROGENASE Lab Routine Multiple myeloma not having achieved remission (HCC) 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) Expected: 11/19/2024 (Approximate), Expires: 08/19/2025leveland ClinicComment on above:Expected: 11/19/2024 (Approximate), Expires: 08/19/2025Start: 11-19-2024 End: 89-71-7400BRZRRIPROC PROTEIN, SERUM (BLOOD)MONOCLONAL PROTEIN, SERUM (BLOOD) Lab Routine Multiple myeloma not having achieved remission (HCC) 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) Expected: 11/19/2024 (Approximate), Expires: 08/19/2025leveland ClinicComment on above:Expected: 11/19/2024 (Approximate), Expires: 08/19/2025Start: 11-19-2024 End: 83-17-2334Wxksymqdh [Mass/volume] in Serum or PlasmaPHOSPHORUS INORGANIC Lab Routine Multiple myeloma not having achieved remission (HCC) 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) Expected: 11/19/2024 (Approximate), Expires: 08/19/2025 Henlawson ClinicComment on above:Expected: 11/19/2024 (Approximate), Expires: 08/19/2025Start: 11-19-2024 End: 14-72-1844OUSPGGK ELECTROPHORESIS SERUM W/INTERPPROTEIN ELECTROPHORESIS SERUM W/INTERP Lab Routine Multiple myeloma not having achieved remission (HCC) 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) Expected: 11/19/2024 (Approximate), Expires: 08/19/2025leveland ClinicComment on above:Expected: 11/19/2024 (Approximate), Expires: 08/19/2025Start: 11-19-2024 End: 48-06-5645Jmczg [Mass/volume] in Serum or PlasmaURIC ACID Lab Routine Multiple myeloma not having achieved remission (HCC) CA - cancer of parotid gl and (HCC) Expected: 11/19/2024 (Approximate), Expires: 08/19/2025leveland ClinicComment on above:Expected: 11/19/2024 (Approximate), Expires: 08/19/2025 Start: 11-19-2024 End: 24-50-8942cqbturqyev42/29/2025 1:45 PM EDT Results Only [place] [facility] [address] [facility] [place] [address] Doecsm [facility] LaboratoryStart: 11-17-2024 End: 90-00-1429Rvgvxas encounter uutpleibd04/27/2025 2:30 PM EDT Office Visit [facility] [address] [place] [address] labsNortBeaumont Hospital LaboratoryComment on above:labsStart: 10-14-2024 End: 16-57-9723Uxptpps encounter ztccufnrw00/24/2025 4:00 PM EDT Procedure Visit [facility] [address] [facility] [address] [place] [phone] Jabier Aldridge, JAGDISH [address] [facility] [address] [place] [address] Diabetes mellitus due to underlying condition with diabetic polyneuropathy, unspecified whether terminal clerk insulin use (HCC) (Primary Dx); Pain due to onychomycosis of toenails of both feet; Acquired deformity of right toe; Acquired deformity of left toeNOMS CI PODIATRYComment on above:Diabetes mellitus due to underlying condition with diabetic polyneuropathy, unspecified whether detention insulin use (HCC) (Primary Dx); Pain due to onychomycosis of toenails of both feet; Acquired deformity of right toe; Acquired deformity of left toeStart: 10-12-2024 End: 25-02-5198Bflxtqk encounter qxtwgugqu24/22/2025 2:30 PM EDT Office Visit Palliative Medicine [address] [place] [address] [place] [address] Angelique Donis, COAL HAULER.PATIENT ACCOUNT SPECIALIST [address] [place] [address] 7 WEEK FOLLOW UPPalliative MedicineComment on above:7 WEEK FOLLOW UPStart: 10-12-2024 End: 58-29-2015Dhqkeee encounter lphmokwln02/22/2025 10:45 AM EDT Office Visit Otolaryngology [address] [address] Gurpreet Pang MD [address] [address] POST OPOtolaryngologyComment on above:POST OPStart: 09-17-2024 End: 78-68-7870Nwjzrdvjv to same day surgery pgnwrq9109/17/2024 7:30 AM EDT - 09/17/2024 11:25 AM EDT Surgery Admitting [address] [place] [address] Gurpreet Pang MD [address] [address] PAROTIDECTOMYAdmittingComment on above:PAROTIDECTOMYStart: 09-17-2024 End: 62-13-1169Lyf prtd kelsey/prtd glnd lat dsj&prsrv facial nrPAROTIDECTOMY Mucoepidermoid carcinoma (HCC) 09/17/2024 7:30 AM EDTMC MAIN PAVILIONStart: 97-53-2787Clflimsmza hospital visit by ujcmfgaxy51/27/2025 7:30 AM EDT Hospital Encounter Admitting [address] [place] [address] Gurpreet Pang MD [address] [place] [address] 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]AdmittingComment on above: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]Start: 09-07-2024 End: 73-33-3187Qnarpz-up qcnpxurev73/17/2025 2:00 PM EDT Visit (SP) Office Hematology/Oncology [address] [place], [place] [phone] Anibal Ash MD [address] [place] [address] 13 week follow upHematology/OncologyComment on above:13 week follow upStart: 09-01-2024 End: 61-52-0012mmdywiowip57/11/2025 2:15 PM EDT Results Only [place] [facility] [address] [place] [address] Dbhjyy [facility] LaboratoryStart: 09-01-2024 End: 32-43-1516Cmftusf encounter okyaaztiy96/11/2025 1:45 PM EDT Appointment Radiology [address] [place] [address] ZfmutqpiqJnabv: 09-01-2024 End: 23-47-4598Gzkvik-up imrcagibe16/11/2025 11:40 AM EDT Visit (SP) Office Hematology/Oncology [address] [place] [address] Anibal Ash MD [address] [place] [address] 13 week follow upHematology/OncologyComment on above:13 week follow upStart: 08-31-2024 End: 73-75-8307Ympnu metabolic 2000 panel - Serum or PlasmaBASIC METABOLIC PANEL Lab Routine Mucoepidermoid carcinoma (HCC) Expected: 08/31/2024, Expires: leveland ClinicComment on above:Expected: 08/31/2024, Expires: 11/30/2024 Start: 08-31-2024 End: 74-08-3553ZQH panel - Blood by Automated countCOMPLETE BLOOD COUNT Lab Routine Mucoepidermoid carcinoma (HCC) Expected: 08/31/2024, Expires: 11/30/2024 [facility]:Expected: 08/31/2024, Expires: 11/30/2024Start: 08-25-2024 End: 06-86-6297Qefj-2-Microglobulin [Mass/volume] in Serum or PlasmaB2 MICROGLOBULIN Lab Routine 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 remission (HCC) Expected: 08/25/2024 (Approximate), Expires: 06/02/2025[facility] Work Phone: Comment on above:Expected: 08/25/2024 (Approximate), Expires: 06/02/2025Start: 08-25-2024 End: 49-83-1801Idnmvqk.ionized [Moles/volume] in BloodCALCIUM, IONIZED Lab Routine Multiple myeloma not having achieved remission (HCC) Expected: 08/26/19 25 (Approximate), Expires: 06/02/2025[facility] ClinicComment on above:Expected: 08/25/2024 (Approximate), Expires: 06/02/2025Start: 08-25-2024 End: 56-31-0705PRR W Auto Differential panel - BloodCOMPLETE BLOOD COUNT AND DIFFERENTIAL Lab Routine Multiple myeloma not having achieved remission (HCC) Expected: 08/25/2024 (Approximate), Expires: 06/02/2025[facility] ClinicComment on above:Expected: 08/25/2024 (Approximate), Expires: 06/02/2025Start: 08-25-2024 End: 36-77-8167Sgmffbsmlzzwe metabolic 2000 panel - Serum or PlasmaCOMPREHENSIVE METABOLIC PANEL Lab Routine Multiple myeloma not having achieved remission (HCC) Expected: 08/25/2024 (Approximate), Expires: 06/02/20[facility] Comment on above:Expected: 08/25/2024 (Approximate), Expires: 06/02/2025Start: 08-25-2024 End: 00-12-6301YUPID/COTA,FREE,SERKAPPA/COTA,FREE,SER Lab Routine Multiple myeloma not having achieved remission (HCC) Expected: 08/25/2024 (Approximate), Expires: 11/24/2024[facility] ClinicComment on above:Expected: 08/25/2024 (Approximate), Expires: 11/24/2024Start: 08-25-2024 End: 43-73-4846Uaucfyc dehydrogenase [Enzymatic activity/volume] in Serum or PlasmaLACTATE DEHYDROGENASE Lab Routine Multiple myeloma not having achieved remission (HCC) Expected: 08/25/2024 (Approximate), Expires: 06/02/2025[facility] ClinicComment on above:Expected: 08/25/2024 (Approximate), Expires: 06/02/2025 Start: 08-25-2024 End: 83-54-0808BNEHANRTTQ PROTEIN, SERUM (BLOOD)MONOCLONAL PROTEIN, SERUM (BLOOD) Lab Routine Multiple myeloma not having achieved remission (HCC) E xpected: 08/25/2024 (Approximate), Expires: 06/02/2025[facility] ClinicComment on above:Expected: 08/25/2024 (Approximate), Expires: 06/02/2025Start: 08-25-2024 End: 42-08-9288Jhijwubgc [Mass/volume] in Serum or PlasmaPHOSPHORUS INORGANIC Lab Routine Multiple myeloma not having achieved remission (HCC) Expected: 06/2024 (Approximate), Expires: 06/02/2025[facility] ClinicComment on above: Expected: 08/25/2024 (Approximate), Expires: 06/02/2025Start: 08-25-2024 End: 63-88-5498PVUCHEU ELECTROPHORESIS SERUM W/INTERPPROTEIN ELECTROPHORESIS SERUM W/INTERP Lab Routine Multiple myeloma not having achieved remission (HCC) Expected: 08/25/2024 (Approximate), Expires: 06/02/2025[facility] ClinicComment on above:Expected: 08/25/2024 (Approximate), Expires: 06/02/2025Start: 08-25-2024 End: 58-25-7154Onhfp [Mass/volume] in Serum or PlasmaURIC ACID Lab Routine Multiple myeloma not having achieved remission (HCC) Expected: 08/25/2024 (Emy roximate), Expires: 06/02/2025[facility] ClinicComment on above:Expected: 08/25/2024 (Approximate), Expires: 06/02/2025Start: 08-25-2024 End: 27-57-3927Ryokgak encounter /04/2025 11:00 AM EDT Office Visit [facility] [address] [place] [address] 12 week labsNortBeaumont Hospital [facility] Comment on above:12 week labsStart: 08-24-2024 End: 37-22-5100Isggnwy encounter procedureNortBeaumont Hospital LaboratoryComment on above:12 week labsPall med consultStart: 08-19-2024 End: 83-33-5201yrpofuxkoj46/29/2025 4:00 PM EDT Visit (SP) Office Hematology/Oncology [address] [place], [place] [phone] Anibal Ash MD [address] [place] [address] PT SEES JUAN TODAY BEFORE THIS APPTHematology/Oncology Comment on above:PT SEES JUAN TODAY BEFORE THIS APPTStart: 08-19-2024 End: 96-35-8442Xiqjjmy encounter procedureNoGreenbrier Valley Medical Center LaboratoryComment on above:12 week labsPT SEES WAN TODAY AFTER RAJANStart: 08-13-2024 End: 31-48-2428Vazhgqt encounter baovgcsvb97/23/2025 2:00 PM EDT Office Visit Otolaryngology [address] [address] Gurpreet Pang MD [address] [place] [address] follow upOtolaryngologyComment on above:follow upStart: 35-36-2343Vbycf-19 Vaccine (8 - Pfizer risk )Covid-19 Vaccine (8 - Pfizer risk )[facility]: 08-05-2024 End: 33-77-6954Flpyakb encounter xcmamxjky23/15/2025 2:30 PM EDT Procedure Visit [facility] [address] [facility] [address] [place] [address] Jabier Aldridge DPNicole [address] [facility] [address] [place] [address] Diabetes mellitus due to underlying condition with diabetic polyneuropathy, unspecified whether terminal clerk insulin use (CMS/HCC) (Primary Dx); Pain due to onychomycosis of toenails of both feet; Acquired deformity of right toe; Acquired deformity of left toeNOMS CI PODIATRYComment on above:Diabetes mellitus due to underlying condition with diabetic polyneuropathy, unspecified whether detention insulin use (CMS/HCC) (Primary Dx); Pain due to onychomycosis of toenails of both feet; Acquired deformity of right toe; Acquired deformity of left toeStart: 03-95-9725PDRUAJRN SCREENDIABETES SCREEN [facility] Centertart: 07-21-2024 End: 70-13-5091Yafyqkofx to same day surgery wykskp8007/21/2024 10:00 AM EDT - 07/21/2024 11:00 AM EDT Surgery Angio [address] [place], [place] [address]DkMartha Gandara MD, MD [address] [place] [address] BIOPSY OR EXCISION LYMPH NODES(S) NEEDLE SUPERFICIALAngio Comment on above:BIOPSY OR EXCISION LYMPH NODES(S) NEEDLE SUPERFICIALStart: 07-21-2024 End: 14-66-5140Ba/exc lymph node needle superficialBIOPSY OR EXCISION LYMPH NODES(S) NEEDLE SUPERFICIAL Parotid mass 07/21/2024 10:00 AM EDTMC ANGIO HB6 Start: 91-92-6452Wphxfrfjms hospital visit by ejarcnqtg20/30/2025 10:00 AM EDT Hospital Encounter Angio [address] [place] [address] Martha Gandara MD, [address] [place], [place] [id number] Parotid mass [K11.8]AngioComment on above:Parotid mass [K11.8]Start: 07-12-2024 End: 08-97-6170QXS panel - Blood by Automated countCOMPLETE BLOOD COUNT Lab Routine Parotid neoplasm Expected: 07/12/2024, Expires: 10/11/2024[facility] Work Phone: Comment on above:Expected: 07/12/2024, Expires: 10/11/2024Start: 07-12-2024 End: 38-75-7389NP panel - Platelet poor plasma by Coagulation assayPROTHROMBIN TIME Lab Routine Parotid neoplasm Expected: 07/12/2024, Expires: 10/11/2024 [facility] HospitalComment [facility]:Expected: 07/12/2024, Expires: 10/11/2024Start: 07-08-2024 End: 72-16-7923Tznxibb encounter nalmcwuzg36/17/2025 2:15 PM EDT Office Visit Otolaryngology [address] [address] Gurpreet Pang MD [address] [place] [address] Parotid MassOtolaryngologyComment on above:Parotid MassStart: 05-28-2024 End: 33-67-6376Ysdnnuh encounter mqsmqfekt17/07/2025 2:15 PM EST Appointment Radiology Pet CT [address] [place] [address] Ct Neck with contrastRadiology Pet CTComment on above:Ct Neck with contrastStart: 05-20-2024 End: 43-05-8189Pcobdrh encounter procedureNOMS CI PODIATRYComment on above: Diabetes mellitus due to underlying condition with diabetic polyneuropathy, unspecified whether detention insulin use ([facility]/HCC) (Primary Dx); Pain due to onychomycosis of toenails of both feet; Acquired deformity of right toe; Acquired deformity of left toeStart: 05-17-2024 End: 37-69-4999Qsfmvs-up ztunrdlnl08/24/2025 2:40 PM EST Visit (SP) Office Hematology/Oncology [address] [place] [address] [place], [place] [phone] Anibal Ash MD [address] [place] [address] 3 month follow upHematology/OncologyComment on above:3 month follow upStart: 05-12-2024 End: 68-58-1273Pblv-2-Microglobulin [Mass/volume] in Serum or PlasmaB2 MICROGLOBULIN Lab Routine Multiple myeloma not having achieved remission (HCC) Expected: 05/12/2024 (Approximate), Expires: 08/11/2024[facility] Work Phone: Comment on above:Expected: 05/12/2024 (Approximate), Expires: 08/11/2024Start: 05-12-2024 End: 09-58-7282Ryiqcgh.ionized [Moles/volume] in BloodCALCIUM, IONIZED Lab Routine Multiple myeloma not having achieved remission (HCC) Expected: 05/12/19 25 (Approximate), Expires: 08/11/2024[facility] ClinicComment on above:Expected: 05/12/2024 (Approximate), Expires: 08/11/2024Start: 05-12-2024 End: 32-72-5626OTN W Auto Differential panel - BloodCOMPLETE BLOOD COUNT AND DIFFERENTIAL Lab Routine Multiple myeloma not having achieved remission (HCC) Expected: 05/12/2024 (Approximate), Expires: 08/11/2024[facility] ClinicComment on above:Expected: 05/12/2024 (Approximate), Expires: 08/11/2024Start: 05-12-2024 End: 97-60-4120Wuutpvcznngjs metabolic 2000 panel - Serum or PlasmaCOMPREHENSIVE METABOLIC PANEL Lab Routine Multiple myeloma not having achieved remission (HCC) Expected: 05/12/2024 (Approximate), Expires: 08/11/20[facility] Comment on above:Expected: 05/12/2024 (Approximate), Expires: 08/11/2024Start: 05-12-2024 End: 14-11-1265Gnbhxkg dehydrogenase [Enzymatic activity/volume] in Serum or PlasmaLACTATE DEHYDROGENASE Lab Routine Multiple myeloma not having achieved remission (HCC) Expected: 05/12/2024 (Approximate), Expires: 08/11/2024[facility] ClinicComment on above:Expected: 05/12/2024 (Approximate), Expires: 08/11/2024 Start: 05-12-2024 End: 78-79-5710JFOOHAWJHJ PROTEIN, SERUM (BLOOD)MONOCLONAL PROTEIN, SERUM (BLOOD) Lab Routine Multiple myeloma not having achieved remission (HCC) E xpected: 05/12/2024 (Approximate), Expires: 08/11/2024[facility] ClinicComment on above:Expected: 05/12/2024 (Approximate), Expires: 08/11/2024Start: 05-12-2024 End: 01-01-6422Pccpndsyw [Mass/volume] in Serum or PlasmaPHOSPHORUS INORGANIC Lab Routine Multiple myeloma not having achieved remission (HCC) Expected: 04/24 (Approximate), Expires: 08/11/2024[facility] ClinicComment on above: Expected: 05/12/2024 (Approximate), Expires: 08/11/2024Start: 05-12-2024 End: 66-41-5902OKKIWCU ELECTROPHORESIS SERUM W/INTERPPROTEIN ELECTROPHORESIS SERUM W/INTERP Lab Routine Multiple myeloma not having achieved remission (HCC) Expected: 05/12/2024 (Approximate), Expires: 08/11/2024[facility] ClinicComment on above:Expected: 05/12/2024 (Approximate), Expires: 08/11/2024Start: 05-12-2024 End: 88-13-2643Nxhks [Mass/volume] in Serum or PlasmaURIC ACID Lab Routine Multiple myeloma not having achieved remission (HCC) Expected: 05/12/2024 (Emy roximate), Expires: 08/11/2024[facility]Comment [facility]:Expected: 05/12/2024 (Approximate), Expires: 08/11/2024Start: 05-10-2024 End: 62-03-3585Scchglz encounter tuheuddvq96/17/2025 2:30 PM EST Office Visit [facility] [address] [place] [address] 3 [facility] Comment on above:3 month labStart: 48-34-0213Hanqgoe Directive DiscussionAdvance Directive DiscussionUniversity Hospitals TriPoint Medical Centertart: 01-01-2025Medicare Advantage Annual Well[facility]Med[facility]Be[facility] Annual Wellness VisitUniversity Hospitals TriPoint Medical Centertart: 03-11-2024 End: 04-02-7025Eeambhh encounter tjikarose97/19/2024 3:00 PM EST Procedure Visit [facility] [address] [facility] [address] [place] [id number] Jabier Aldridge DPM [address] [facility] [address] [place] [address] Diabetes mellitus due to underlying condition with diabetic polyneuropathy, unspecified whether detention insulin use (CMS/HCC) (Primary Dx); Pain due to onychomycosis of toenails of both feet; Acquired deformity of right toe; Acquired deformity of left toeNOMS CI PODIATRYComment on above:Diabetes mellitus due to underlying condition with diabetic polyneuropathy, unspecified whether detention insulin use (CMS/HCC) (Primary Dx); Pain due to onychomycosis of toenails of both feet; Acquired deformity of right toe; Acquired deformity of left toeStart: 02-10-2024 End: 06-66-1980Uxks-2-Microglobulin [Mass/volume] in Serum or PlasmaB2 MICROGLOBULIN Lab Routine Multiple myeloma not having achieved remission (HCC) Stage 3a chronic kidney disease (HCC) Thrombocytopenia (HCC) Expected: 02/10/2024, Expires: 11/09/2024[facility] Work Phone: Comment on above:Expected: 02/10/2024, Expires: 11/09/2024Start: 02-10-2024 End: 52-81-0078Ppwtses.ionized [Moles/volume] in BloodCALCIUM, IONIZED Lab Routine Multiple myeloma not having achieved remission (HCC) Stage 3a chronic k idney disease (HCC) Thrombocytopenia (HCC) Expected: 02/10/2024, Expires: 11/09/2024[facility] ClinicComment on above:Expected: 02/10/2024, Expires: 11/09/2024Start: 02-10-2024 End: 73-42-4205BCC W Auto Differential panel - BloodCOMPLETE BLOOD COUNT AND DIFFERENTIAL Lab Routine Multiple myeloma not having achieved remission (HCC) Stage 3a chronic kidney disease (HCC) Thrombocytopenia (HCC) Expected: 02/10/2024, Expires: 11/09/2024[facility] ClinicComment on above:Expected: 02/10/2024, Expires: 11/09/2024Start: 02-10-2024 End: 27-03-6732Ykronfykovsmr metabolic 2000 panel - Serum or PlasmaCOMPREHENSIVE METABOLIC PANEL Lab Routine Multiple myeloma not having achieved remission (HCC) Stage 3a chronic kidney disease (HCC) Thrombocytopenia (HCC) Expected: 02/10/2024, Expires: 11/09/2024[facility] ClinicComment on above:Expected: 02/10/2024, Expires: 11/09/2024Start: 02-10-2024 End: 05-62-6390LQLQY/COTA,FREE,SERKAPPA/COTA,FREE,SER Lab Routine Multiple myeloma not having achieved remission (HCC) Stage 3a chronic kidney disease (HCC) Thrombocytopenia (HCC) Expected: 02/10/2024, Expires: 05/11/2024[facility] ClinicComment on above:Expected: 02/10/2024, Expires: 05/11/2024Start: 02-10-2024 End: 38-39-6157Gfjfigr dehydrogenase [Enzymatic activity/volume] in Serum or PlasmaLACTATE DEHYDROGENASE Lab Routine Multiple myeloma not having achieved remission (HCC) Stage 3a chronic kidney disease (HCC) Thrombocytopenia (HCC) Expected: 02/10/2024, Expires: 11/09/2024[facility] ClinicComment on above: Expected: 02/10/2024, Expires: 11/09/2024Start: 02-10-2024 End: 64-00-0307IMKSVNZEDP PROTEIN, SERUM (BLOOD)MONOCLONAL PROTEIN, SERUM (BLOOD) Lab Routine Multiple myeloma not having achieved remission (HCC) Stage 3a chronic kidney disease (HCC) Thrombocytopenia (HCC) Expected: 02/10/2024, Expires: 11/09/2024[facility] ClinicComment on above:Expected: 02/10/2024, Expires: 11/09/2024Start: 02-10-2024 End: 98-50-3574Ydxyfblgo [Mass/volume] in Serum or PlasmaPHOSPHORUS INORGANIC Lab Routine Multiple myeloma not having achieved remission (HCC) Stage 3a chron ic kidney disease (HCC) Thrombocytopenia (HCC) Expected: 02/10/2024, Expires: 11/09/2024[facility] ClinicComment on above:Expected: 02/10/2024, Expires: 11/09/2024Start: 02-10-2024 End: 31-85-9030EHMVFID ELECTROPHORESIS SERUM W/INTERPPROTEIN ELECTROPHORESIS SERUM W/INTERP Lab Routine Multiple myeloma not having achieved remission (HCC) Stage 3a chronic kidney disease (HCC) Thrombocytopenia (HCC) Expected: 02/10/2024, Expires: 11/09/2024[facility] ClinicComment on above:Expected: 02/10/2024, Expires: 11/09/2024Start: 02-10-2024 End: 66-63-3819Xdyie [Mass/volume] in Serum or PlasmaURIC ACID Lab Routine Multiple myeloma not having achieved remission (HCC) Stage 3a chronic kidney d isease (HCC) Thrombocytopenia (HCC) Expected: 02/10/2024, Expires: 11/09/2024 [facility] HospitalComment on above:Expected: 02/10/2024, Expires: 11/09/2024Start: 02-09-2024 End: 26-65-0371Vibgxr-up alvyzszha48/18/2024 1:45 PM EST Visit (SP) Office Hematology/Oncology [address] [place] [address] [address] [place], [place] [phone] Anibal Ash MD [address] [facility] [place] [address] 3 month follow up / lab 1 week priorHematology/Oncology Comment on above:3 month follow up / lab 1 week priorStart: 02-02-2024 End: 63-89-4478Woulkqo encounter oxdhmozpg02/11/2024 1:45 PM EST Office Visit [facility] [address] [place] [address] 3 [facility] Comment on above:3 month labStart: 01-01-2024 End: 20-62-4251Mbyjmvf encounter jgexwlmcj65/10/2024 3:30 PM EDT Procedure Visit [facility] [address] [facility] [address] [place] [phone] Jabier Aldridge DPM [address] [facility] [address] [place] [address] Diabetes mellitus due to underlying condition with diabetic polyneuropathy, unspecified whether detention insulin use (CMS/HCC) (Primary Dx); Pain due to onychomycosis of toenails of both feet; Acquired deformity of right toe; Acquired deformity of left toeNOMS CI PODIATRYComment on above:Diabetes mellitus due to underlying condition with diabetic polyneuropathy, unspecified whether detention insulin use (CMS/HCC) (Primary Dx); Pain due to onychomycosis of toenails of both feet; Acquired deformity of right toe; Acquired deformity of left toeStart: 42-13-6017Siemn-19 Vaccine ()Covid-19 Vaccine ( season)[facility]: 11-23-2023 Covid-19 Vaccine ()Covid-19 Vaccine () [facility]: 50-70-4914Ugndhavda vaccinationInfluenza Vaccine (#1) [facility]: 11-10-2023 End: 33-59-9261Iaaing-up ggyofkvxd11/19/2024 1:30 PM EDT Visit (SP) Office Hematology/Oncology [address] [place], [place] [phone] Anibal Ash MD [address] [facility] [place] [address] 3 month follow upHematology/OncologyComment on above:3 month follow upStart: 11-03-2023 End: 73-90-4416Wfouwuk encounter qjzweswts14/12/2024 1:30 PM EDT Office Visit [facility] [address] [facility] [place] [address] 3 [facility] Comment on above:3 month labStart: 08-29-2023 End: 78-03-7989Sasxzrm encounter sxwqvenxo80/07/2024 1:00 PM EDT Appointment Radiology Pet CT [address] [address] Pet scan / Nurse triage to call resultsRadiology Pet CTComment on above:Pet scan / Nurse triage to call resultsStart: 59-64-8269Mohxcrt [facility] Work Phone: Start: 08-11-2023 End: 21-84-6891Tpaq-2-Microglobulin [Mass/volume] in Serum or PlasmaB2 MICROGLOBULIN Lab Routine Multiple myeloma not having achieved remission (HCC) Expected: 08/11/2023, Expires: 08/10/2024[facility] ClinicComment on above: Expected: 08/11/2023, Expires: 08/10/2024Start: 08-11-2023 End: 64-69-6268Hhbxhle.ionized [Moles/volume] in BloodCALCIUM, IONIZED Lab Routine Multiple myeloma not having achieved remission (HCC) Expected: 08/11/19 24, Expires: 08/10/2024[facility] ClinicComment on above:Expected: 08/11/2023, Expires: 08/10/2024Start: 08-11-2023 End: 75-83-5294UVO W Auto Differential panel - BloodCOMPLETE BLOOD COUNT AND DIFFERENTIAL Lab Routine Multiple myeloma not having achieved remission (HCC) Expected: 08/11/2023, Expires: 08/10/2024[facility] ClinicComment on above: Expected: 08/11/2023, Expires: 08/10/2024Start: 08-11-2023 End: 63-28-9174Izilzvqpwqusn metabolic 2000 panel - Serum or PlasmaCOMPREHENSIVE METABOLIC PANEL Lab Routine Multiple myeloma not having achieved remission (HCC) Expected: 08/11/2023, Expires: 08/10/2024[facility] ClinicComment on above: Expected: 08/11/2023, Expires: 08/10/2024Start: 08-11-2023 End: 75-13-8250AKYRH/COTA,FREE,SERKAPPA/COTA,FREE,SER Lab Routine Multiple myeloma not having achieved remission (HCC) Expected: 08/11/2023, Expires: 11/10/2023[facility] ClinicComment on above:Expected: 08/11/2023, Expires: 11/10/2023Start: 08-11-2023 End: 55-10-6137Mgwfmcg dehydrogenase [Enzymatic activity/volume] in Serum or PlasmaLACTATE DEHYDROGENASE Lab Routine Multiple myeloma not having achieved remission (HCC) Expected: 08/11/2023, Expires: 08/10/2024[facility] ClinicComment on above:Expected: 08/11/2023, Expires: 08/10/2024Start: 08-11-2023 End: 49-98-0478AEJMPSLIGB PROTEIN, SERUM (BLOOD)MONOCLONAL PROTEIN, SERUM (BLOOD) Lab Routine Multiple myeloma not having achieved remission (HCC) E xpected: 08/11/2023, Expires: 08/10/2024[facility] ClinicComment on above: Expected: 08/11/2023, Expires: 08/10/2024Start: 08-11-2023 End: 53-39-1862Kankngbki [Mass/volume] in Serum or PlasmaPHOSPHORUS INORGANIC Lab Routine Multiple myeloma not having achieved remission (HCC) Expected: 07/23, Expires: 08/10/2024[facility] ClinicComment on above:Expected: 08/11/2023, Expires: 08/10/2024Start: 08-11-2023 End: 29-67-0265KTWSDIW ELECTROPHORESIS SERUM W/INTERPPROTEIN ELECTROPHORESIS SERUM W/INTERP Lab Routine Multiple myeloma not having achieved remission (HCC) Expected: 08/11/2023, Expires: 08/10/2024[facility] ClinicComment on above: Expected: 08/11/2023, Expires: 08/10/2024Start: 08-11-2023 End: 17-64-8783Zgmme [Mass/volume] in Serum or PlasmaURIC ACID Lab Routine Multiple myeloma not having achieved remission (HCC) Expected: 08/11/2023, Exp ires: 08/10/2024[facility] ClinicComment on above:Expected: 08/11/2023, Expires: 08/10/2024Start: 87-43-2280Lgopbdkogh A1c hhotxchqesqPmI6CCgtunbsuq ClinicStart: 24-27-9540Dcillpx Directive DiscussionAdvance Directive DiscussionUniversity Hospitals [facility] Medical Centertart: 35-01-2837BHNGU-19 Vaccine ()COVID-19 Vaccine ()[facility]Start: 38-22-5011Ugrfh-19 Vaccine ()Covid-19 Vaccine ()[facility]: 08-11-2022 End: 57-73-5150Oscw-2-Microglobulin [Mass/volume] in Serum or PlasmaB2 MICROGLOBULIN B Lab Routine 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) [C90.01 (ICD-10-CM)] Expected: 08/11/2022 (Approximate), Expires: 02/11/2023[facility] Work Phone: Comment on above:Expected: 08/11/2022 (Approximate), Expires: 02/11/2023Start: 08-11-2022 End: 09-73-4080Nqgaatv.ionized [Moles/volume] in BloodCALCIUM IONIZED BLOOD Lab Routine 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) [C90.01 (ICD-10-CM)] Expected: 08/11/2022 (Approximate), Expires: 02/11/2023[facility] Work Phone: Comment on above:Expected: 08/11/2022 (Approximate), Expires: 02/11/2023Start: 08-11-2022 End: 14-01-1750QCP W Auto Differential panel - BloodCBC + DIFF Lab Routine 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) [C90.01 (ICD-10-CM)] Expected: 08/11/2022 (Approximate), Expires: 02/11/2023[facility] Work Phone: Comment on above:Expected: 08/11/2022 (Approximate), Expires: 02/11/2023Start: 08-11-2022 End: 85-45-6391Rjsnprzhsxjos metabolic 2000 panel - Serum or PlasmaCOMP METABOLIC PANEL Lab Routine 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) [C90.01 (ICD-10-CM)] Expected:08/11/2022 (Approximate), Expires: 02/11/2023[facility] Work Phone: Comment on above:Expected: 08/11/2022 (Approximate), Expires: 02/11/2023Start: 08-11-2022 End: 75-71-9121JRDCF/COTA,FREE,SERKAPPA/COTA,FREE,SER Lab Routine 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) [C90.01 (ICD-10-CM)] Expected: 08/11/2022 (Approximate), Expires: 10/11/2022[facility] Work Phone: Comment on above:Expected: 08/11/2022 (Approximate), Expires: 10/11/2022Start: 08-11-2022 End: 21-23-2679Twcpreo dehydrogenase [Enzymatic activity/volume] in Serum or PlasmaLD LACTATE DEHYDRO Lab Routine 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) [C90.01 (ICD-10-CM)] Expected: 08/11/2022 (Approximate), Expires: 02/11/2023[facility] Work Phone: Comment on above:Expected: 08/11/2022 (Approximate), Expires: 02/11/2023Start: 08-11-2022 End: 22-78-1504FNXBBLVMHI PROTEIN, SERUM (BLOOD)MONOCLONAL PROTEIN, SERUM (BLOOD) Lab Routine 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) [C90.01 (ICD-10-CM)] Expected: 08/11/2022 (Approximate), Expires: 02/11/2023[facility] Work Phone: Comment on above:Expected: 08/11/2022 (Approximate), Expires: 02/11/2023Start: 08-11-2022 End: 19-58-0267Ofimsktpq [Mass/volume] in Serum or PlasmaPHOSPHORUS INORGANIC Lab Routine 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) [C90.01 (ICD-10-CM)] Expected: 08/11/2022 (Approximate), Expires: 02/11/2023[facility] Work Phone: Comment on above:Expected: 08/11/2022 (Approximate), Expires: 02/11/2023Start: 08-11-2022 End: 82-29-2147YFUUTBA ELECTROPHORESIS SERUM W/INTERPPROTEIN ELECTROPHORESIS SERUM W/INTERP Lab Routine 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) [C90.01 (ICD-10- CM)] Expected: 08/11/2022 (Approximate), Expires: 02/11/2023[facility] Work Phone: Comment on above:Expected: 08/11/2022 (Approximate), Expires: 02/11/2023Start: 08-11-2022 End: 27-59-1679Rpnkp [Mass/volume] in Serum or PlasmaURIC ACID BLOOD Lab Routine 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) [C90.01 (ICD-10-CM)] Expected: 08/11/2022 (Approximate), Expires: 02/11/2023[facility] Work Phone: Comment on above:Expected: 08/11/2022 (Approximate), Expires: 02/11/2023Start: 13-91-6772BZLTIRP DIRECTIVE DISCUSSIONADVANCE DIRECTIVE DISCUSSIONCleguernsey memorial hospital ClinicStart: 54-60-0275AGXJZXYGPD ASSESSMENT DEPRESSION ASSESSMENTUniversity Hospitals TriPoint Medical Centertart: 79-67-8056UEX Vaccine (1 - 1-dose 75+ series)RSV Vaccine (1 - 1-dose 75+ series)[facility]: 01-24-2016 PNEUMOCOCCAL: 65+ (2 - PCV)PNEUMOCOCCAL: 65+ (2 - PCV)[facility]: 58-60-8101YCjN/Tdap/Td Vaccines (1 - Tdap)DTaP/Tdap/Td Vaccines (1 - Tdap) [facility]: 18-96-4045Hgesz microalbumin profile DTaP,Tdap,Td Vaccine (1 - Tdap)[facility]: 93-48-1099IPB Vaccine (1 - 1-dose 60+ series)RSV Vaccine (1 - 1-dose 60+ series)[facility]: 44-17-8870Rwrfxzyk Vaccine (1 of 2)Shingrix Vaccine (1 of 2)[facility] Start: 59-03-2032SBNUWOLK VACCINE (1 of 2)SHINGRIX VACCINE (1 of 2)[facility]: 18-23-1244Tkvnz microalbumin profileDTAP,TDAP,TD (1 - Tdap) [facility]: 08-49-8296Yvchrx Vaccines (1 of 2)Zoster Vaccines (1 of 2)[facility]: 10-99-2782Pbenbwo ScreeningAnxiety ScreeningUniversity Hospitals TriPoint Medical Centertart: 07-52-4402Fljevjmbr B surface antibody levelLDL CholesterolUniversity Hospitals TriPoint Medical Centertart: 07-90-6697Bzlhymlx foot examinationDiabetic Foot ExamUniversity Hospitals TriPoint Medical Centertart: 03-77-7421Iavqexva screeningDilated Retinal Exam [facility]rt: 92-01-6261Fpnbxtrmm B screeningUrine Albumin:Creatinine RatioUniversity Hospitals TriPoint Medical Centertart: 31-25-6898Bmqyk panelLipid PanelUnLouis Stokes [facility]: 1941Medicare Annual Wellness VisitMedicare Annual Wellness Visit (AWV)[facility] HospitalComprehensive metabolic 2000 panel - Serum or PlasmaOhiohealth Shelby HospitalCT Guidance for radiation treatment of Unspecified body regionCT SIM PLANNING RADIATION ONCOLOGY Radiology Routine Head and neck cancer (HCC) Or[facility]: [facility] Work Phone: Comment on above:Ordered: 08/19/2024 End: 91-49-6204GX Neck W contrast IVCT NECK SOFT TISSUE W IVCON Radiology Routine Mass of ear auricle, left Multiple myeloma not havingachieved remission (HCC) Thrombocytopenia (HCC) Chronic anticoagulation 1 Occurrences starting 05/17/2024 until 06/16/2025[facility] Work Phone: Comment on above:1 Occurrences starting 05/17/2024 until 06/16/2025 End: 18-19-2829JWW COMPLETEECG COMPLETE ECG Routine 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/31/2024 until 08/31/2025[facility]Comment [facility]:1 Occurrences starting 08/31/2024 until 08/31/2025Exc prtd kelsey/prtd glnd lat dsj&prsrv facial nrPAROTIDECTOMY Mucoepidermoid carcinoma (HCC) MAIN PAVILIONGuidance for biopsy of Neck or Chest Soft tissueIMAGING GUIDED BIOPSY SALIVARY GLAND Radiology Routine Parotid mass Ordered: 07/08/2024[facility] Work Phone: Comment on above:Ordered: 07/08/2024Microalbumin [Mass/volume] in UrineOhiohealth Shelby HospitalPatient EducationManaging pain after surgeryThe [facility] Of [facility] Work Phone: [facility] Work Phone: End: 94-66-3765PFK+CT Whole body Bone W 18F-NaF IVNM PET/CT WHOLE BODY SUBSEQUENT Radiology Routine Multiple myeloma not having achieved remission (HC C) 1 Occurrences starting 08/11/[address] [place] [address] Work Phone: Comment on above:1 Occurrences starting 08/11/2023 until 09/09/2024XR Chest 2 ViewsOhiohealth Shelby Hospital End: 22-66-2131QY Chest PA and LateralXR CHEST 2V FRONTAL/LAT Radiology Routine 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/31/2024 until 09/30/2025[facility] Work Phone: Comment on above:1 Occurrences starting 08/31/2024 until 09/30/2025XR Lumbar spine 2 or 3 [facility] 3 [facility] Immunizations Immunization DateImmunizationNotesCare TorttyxlLixjjlfx63-13-9174ohettjezm, high dose seasonal, preservative-freeBenjamin Ball DO Work Phone: [facility]11-19-2024COVID-19 vaccine, age 12+ yr (PFIZER-BIONTECH COMIRNATY)Anibal Ash MD Work Phone: [facility] HospitalJtzmiq41-59-6814dyfeysyiq, high dose seasonal, preservative-freeBenjamin Ball Other [employer] Other 029643-54-7765agggptlgp virus vaccine, unspecified formulationOhiohealth Shelby Hospital10-12-2022influenza (aIIV4) vaccine, age 65+ yr, quadrivalent, PF (FLUAD QUAD)Anibal Ash MD Work Phone: [facility] HospitalKluvpr13-91-5701spxottodc virus vaccine, split virus (incl. purified surface antigen)Danilo Clark Other [employer] Other 717117-71-4834lnoaazhbk virus vaccine, unspecified formulationOhiohealth Shelby Hospital07-11-2022COVID-19 original vaccine, age 12+ yr, monovalent (PFIZER-BIONTECH - HANNA TOP)Anibal Ash MD Work Phone: [facility] HospitalSiojzh53-76-4032SRKKR-03 original vaccine, age 12+ yr, monovalent (PFIZER-BIONTECH - PURPLE TOP)Anibal Ash MD Work Phone: [facility] HospitalFibcas05-00-6618aqzevyofb virus vaccine, split virus (incl. purified surface antigen)Danilo Clark Other [employer] Other 09487828-44-8451ppwngvocl virus vaccine, unspecified formulationOhiohealth Shelby Hospital09-29-2021Seasonal trivalent influenza vaccine, adjuvanted, preservative freeAnibal Ash MD Work Phone: [facility] HospitalZlprij76-03-6959UMPKV-61 original vaccine, age 12+ yr, monovalent (PFIZER-BIONTECH - PURPLE TOP)Anibal Ash MD Work Phone: [facility] HospitalXaobxw80-54-2658OCJHO-38 Vaccine Pfizer - Documentation Purposes Carleen Clark Other [facility]01-28-2021COVID-19 original vaccine, age 12+ yr, monovalent (PFIZER-BIONTECH - PURPLE TOP)Anibal Ash MD Work Phone: [facility] HospitalPgkroe32-89-5329bogmwnkow virus vaccine, split virus (incl. purified surface antigen)Danilo Clark Other [employer] Other 09279835-11-4977erqhuhcwo virus vaccine, unspecified formulationOhiohealth Shelby Hospital10-30-2019influenza virus vaccine, split virus (incl. purified surface antigen)Danilo Clark Other [employer] Other 10396027-07-1394raayroewl virus vaccine, unspecified formulationOhiohealth Shelby Hospital10-23-2018influenza virus vaccine, split virus (incl. purified surface antigen)Danilo Clark Other [employer] Other 663638-66-9237bojsdcxih virus vaccine, unspecified formulationOhiohealth Shelby Hospital10-23-2018Seasonal trivalent influenza vaccine, adjuvanted, preservative freeAnibal Ash MD Work Phone: [facility] HospitalQdkdxq57-06-8144ztnjhwxbx virus vaccine, split virus (incl. purified surface antigen)Danilo Clark Other [employer] Other 682767-74-2626rhiaolyxy virus vaccine, unspecified formulationOhiohealth Shelby Hospital10-17-2017influenza, high dose seasonal, preservative-freeAnibal Ash MD Work Phone: [facility] HospitalTgigte22-07-1653gdqenbqzz, injectable, quadrivalent, preservative freeAnibal Ash MD Work Phone: [facility] HospitalWkkiuq52-77-2298wuxepaiil virus vaccine, split virus (incl. purified surface antigen)Danilo Clark Other [employer] Other 150090-26-1649yyxxczqvg virus vaccine, unspecified formulationOhiohealth Shelby Hospital12-17-2015pneumococcal conjugate vaccine, 13 valentBenbrandynmin Amber Other [facility]11-02-2015 pneumococcal polysaccharide vaccine, 23 valentAnibal Ash MD Work Phone: [facility] HospitalOqpodv28-18-7363duyzshqfnrok Conjugate, unspecified formulation; Translations: [Need for prophylactic vaccination ag ainst Streptococcus pneumoniae (pneumococcus)]Danilo Clark Other [employer] Other 082466-21-6517uafznfghtvlh polysaccharide vaccine, 23 valentBenemeterio Clark Other [facility]12-26-2013influenza, seasonal, injectableJaimee Praful COAL HAULER.PATIENT ACCOUNT SPECIALIST Work Phone: [facility] HospitalYfdaxq44-88-7900eibnvqs and diphtheria toxoids, adsorbed, preservative free, for adult use (5 Lf of tetanus toxoid and 2 Lf of diphtheria toxoid)Danilo Clark Other [facility]10-03-2012tetanus and diphtheria toxoids, adsorbed, preservative free, for adult use (5 Lf of tetanus toxoid and 2 Lf of diphtheria toxoid)Danilo Clark Other [facility]08-03-2005 pneumococcal polysaccharide vaccine, 23 valentBelinda Clark Other [facility] Payers DatePayer CategoryPayerPolicy [id number]-[id number] 2021Medicare [id number] 2020Medicare (Managed Care) [id number]5Qnrgroa 1.2.840.850839.1.13.159.2.7.3.654798.63090-97-3967Jtsyyzq Health Insurance [id number] [id number] [id number] [id number] 2.16.840.1.470000.3.57[id number] 2.16.840.1.280851.3.57[id number] 2.16.840.1.036024.3.57[id number] 2.16.840.1.973494.3.57[id number] 2.16.840.1.731563.3.57[id number] 2.16.840.1.270838.3.57[id number] 2.16.840.1.236254.3.57[id number] 2.16840.1.283115.3.57[id number] 2.16840.1.603798.3.57[id number] 2.16840.1.915605.3.57[id number] 2.16840.1.392342.3.57[id number] 2.840.1.287278.3.57[id number] 2.840.1.866579.3.57[id number] 2.840.1.570890.3.57[id number] 2.840.1.934556.3.57[id number] 2..1.786396.3.57[id number] 2.840.1.091326.3.57[id number] 2.16840.1.614488.3.57[id number] 2.16840.1.853421.3.57[id number] 2.16840.1.329709.3.57[id number] 2.840.1.724227.3.57[id number] 2.16.840.1.877[id number] Health [facility] [id number] 2.16.840.1.115235.3.579.2.531 Social History DateTypeDetailFacilityStart: 12-17-2016 End: 03-83-1347Fgbunjn smoking status NHISEx-smokerCleveland Clinic Medina Hospital End: 11-65-7256Blazzer of tobacco useCurrent smokerCleveland Clinic Medina [facility] End: 52-91-2917Yffuyfz of tobacco useCigar SmokerUniversity Hospitals TriPoint [facility] Centertart: 12-17-2016 End: 56-41-2596Ykmbfzr use and exposureSmokeless tobacco non-userUniversity Hospitals TriPoint Medical Centertart: 08-03-2021 End: 29-93-5499Scktzcd intakeCurrent drinker of alcohol (finding)[facility]: 11-05-2016 End: 16-39-8822Ioqmmsb CommentQuit 40 years agoUniversity Hospitals [facility]: 11-05-2016 Alcohol Comment2 beers per year.[facility]: 79-28-5182Ckl Assigned At BirthNot on fileUniversity Hospitals TriPoint Medical Centertart: 02-10-2023 End: 03-45-7555Kcn [facility] At [facility]: 05-13-2023 End: 45-94-6930Fvqmtqj smoking status NHISNever smoked tobaccoPaulding County Hospital Work Phone: Start: 05-03-2023 End: 20-29-1523Abnvjhlb to SARS-CoV-2 (event)Not surePaulding County HospitalStart: 87-00-7224Wfn Assigned At [facility]: 02-10-2023 End: 30-13-7774Cgxbfea of Social functionUniversity Hospitals Tri[facility] Medical Centertart: 44-76-7267[place] Depression Screening Cgfjfcsuzu5Iufqxglfy ClinicHistory of tobacco useCigarette SmokerNOUT HealthcareHistory of tobacco usePassive smokerNOMS HealthcareStart: 01-01-2024 End: 86-92-5715Ciimrsrpe beverage intakeEx-drinker (finding)[facility] Start: 04-16-2024 End: 59-07-2744ByxMkiv (finding)[facility] Medical Equipment Procedure CodeEquipment CodeEquipment Original TextEquipment IdentifierDatesOpen reduction and internal fixation of fracture of humerusK-WIRE 2.5MM W/ TROCAR POINTFDAStart: 68-43-5755Zvsz reduction and internal fixation of fracture of humerusNAIL HUMERAL 9MM X 280MM TIFDAStart: 52-14-9649Jiom reduction and internal fixation of fracture of humerusSCREW 4.0MM TI LOCKING W/ O12VZTFlrow: 06-23-7862Umkv reduction and internal fixation of fracture of humerusK-WIRE 2.5MM W/ TROCAR POINTFDAStart: 12-81-4929Vuqz reduction and internal fixation of fracture of humerusNAIL HUMERAL 9MM X 280MM TIFDAStart: 61-30-6456Aytb reduction and internal fixation of fracture of humerusSCREW 4.0MM TI LOCKING W/ T25FDA Start: 61-49-1586Mydr reduction and internal fixation of fracture of humerusK- WIRE 2.5MM W/ TROCAR POINTFDAStart: 22-97-6137Opok reduction and internal fixation of fracture of humerusNAIL HUMERAL 9MM X 280MM TIFDAStart: 12-13-2016 Open reduction and internal fixation of fracture of humerusSCREW 4.0MM TI LOCKING W/ J72FMIVdrrh: 40-66-8736Yjpm reduction and internal fixation of fracture of humerusK-WIRE 2.5MM W/ TROCAR POINTFDAStart: 85-51-5370Ojky reduction and internal fixation of fracture of humerusNAIL HUMERAL 9MM X 280MM TIFDAStart: 03-45-5915Piej reduction and internal fixation of fracture of humerusSCREW 4.0MM TI LOCKING W/ V97PWUBrlrs: 61-37-1863Gfoz reduction and internal fixation of fracture of humerusK-WIRE 2.5MM W/ TROCAR POINTFDAStart: 38-15-1294Qqvm reduction and internal fixation of fracture of humerusNAIL HUMERAL 9MM X 280MM TIFDAStart: 44-53-0356Xdrl reduction and internal fixation of fracture of humerusSCREW 4.0MM TI LOCKING W/ S01QQLKjmvm: 03-72-8964Mmvd reduction and internal fixation of fracture of humerusK-WIRE 2.5MM W/ TROCAR POINTFDAStart: 69-47-6904Dhsy reduction and internal fixation of fracture of humerusNAIL HUMERAL 9MM X 280MM TIFDAStart: 69-63-9433Jfbp reduction and internal fixation of fracture of humerusSCREW 4.0MM TI LOCKING W/ U84JEGPnfvw: 96-70-4358Iwql reduction and internal fixation of fracture of humerusK-WIRE 2.5MM W/ TROCAR POINTFDAStart: 41-82-6562Xunp reduction and internal fixation of fracture of humerusNAIL HUMERAL 9MM X 280MM TIFDAStart: 73-69-9174Irip reduction and internal fixation of fracture of humerusSCREW 4.0MM TI LOCKING W/ T25FDA Start: 44-12-2590Vnpu reduction and internal fixation of fracture of humerusK- WIRE 2.5MM W/ TROCAR POINTFDAStart: 03-30-5455Htbg reduction and internal fixation of fracture of humerusNAIL HUMERAL 9MM X 280MM TIFDAStart: 12-13-2016 Open reduction and internal fixation of fracture of humerusSCREW 4.0MM TI LOCKING W/ E16UVEDpcpr: 88-97-1151Aqnk reduction and internal fixation of fracture of humerusK-WIRE 2.5MM W/ TROCAR POINTFDAStart: 77-32-4878Kbhu reduction and internal fixation of fracture of humerusNAIL HUMERAL 9MM X 280MM TIFDAStart: 47-05-6203Apsc reduction and internal fixation of fracture of humerusSCREW 4.0MM TI LOCKING W/ W29UGLYskdf: 88-46-1356Psiu reduction and internal fixation of fracture of humerusK-WIRE 2.5MM W/ TROCAR POINTFDAStart: 05-83-5340Bwvh reduction and internal fixation of fracture of humerusNAIL HUMERAL 9MM X 280MM TIFDAStart: 01-38-8756Kkun reduction and internal fixation of fracture of humerusSCREW 4.0MM TI LOCKING W/ W52GMLDfjww: 12-13-2016 [id number], [id number]: 27-03-9274Ube Needle, Diabetic (Bd Ultra-Fine Short Pen Needle) 31 gauge x 5/16 needleStart: 12-68-9608Sdb Needle, Diabetic (Bd Ultra-Fine Short Pen Needle) 31 gauge x 5/16 needleStart: 09-30-2023 End: 90-41-2361Jgy Needle, Diabetic (Bd Ultra-Fine Short Pen Needle) 31 gauge x 5/16 needleStart: 22-19-0379Zbn Needle, Diabetic (Bd Ultra-Fine Short Pen Needle) 31 gauge x 5/16 needleStart: 09-30-2023 End: 44-61-3918Klf Needle, Diabetic (Bd Ultra-Fine Short Pen Needle) 31 gauge x 5/16 needleStart: 09-30-2023 End: 55-18-6444Msd Needle, Diabetic (Bd Ultra-Fine Short Pen Needle) 31 gauge x 5/16 needleStart: 10-89-8154Zfy Needle, Diabetic (Bd Ultra-Fine Short Pen Needle) 31 gauge x 5/16 needleStart: 09-30-2023 End: 87-38-7935Crk Needle, Diabetic (Bd Ultra-Fine Short Pen Needle) 31 gauge x 5/16 needleStart: 09-30-2023 End: 31-88-4583Evw Needle, Diabetic (Bd Ultra-Fine Short Pen Needle) 31 gauge x 5/16 needleStart: 25-71-0120Gfx Needle, Diabetic (Bd Ultra-Fine Short Pen Needle) 31 gauge x 5/16 needleStart: 09-30-2023 End: 68-57-4615Foh Needle, Diabetic (Bd Ultra-Fine Short Pen Needle) 31 gauge x 5/16 needleStart: 09-30-2023 End: 20-46-6365Nxx Needle, Diabetic 31 gauge x 5/16 needleStart: 38-13-3325Kgl Needle, Diabetic (Bd Ultra-Fine Short Pen Needle) 31 gauge x 5/16 needleStart: 09-30-2023 End: 80-47-5578Aoe Needle, Diabetic (Bd Ultra-Fine Short Pen Needle) 31 gauge x 5/16 needleStart: 09-30-2023 End: 90-25-1979Zmc Needle, Diabetic (Bd Ultra-Fine Short Pen Needle) 31 gauge x 5/16 needleStart: 12-23-2023 End: 33-59-3254Blj Needle, Diabetic 31 gauge x 5/16 needleStart: 83-98-0606Vwv Needle, Diabetic (Bd Ultra-Fine Short Pen Needle) 31 gauge x 5/16 needleStart: 09-30-2023 End: 26-37-9345Fwm Needle, Diabetic (Bd Ultra-Fine Short Pen Needle) 31 gauge x 5/16 needleStart: 09-30-2023 End: 44-24-9798Nsx Needle, Diabetic (Bd Ultra-Fine Short Pen Needle) 31 gauge x 5/16 needleStart: 12-23-2023 End: 12-38-8026Iyz Needle, Diabetic 31 gauge x 5/16 needleStart: 78-88-1399Hcr Needle, Diabetic (Bd Ultra-Fine Short Pen Needle) 31 gauge x 5/16 needleStart: 09-30-2023 End: 00-22-9976Ebd Needle, Diabetic (Bd Ultra-Fine Short Pen Needle) 31 gauge x 5/16 needleStart: 09-30-2023 End: 56-92-6882Wjk Needle, Diabetic (Bd Ultra-Fine Short Pen Needle) 31 gauge x 5/16 needleStart: 12-23-2023 End: 27-85-3619Nfq Needle, Diabetic 31 gauge x 5/16 needleStart: 09-05-2024 End: 01-05-2025 Functional Status SeomCdqwyyuejkJclsbbDmkqjdxl33-95-3515Orv you deaf, or do you have serious difficulty hearingNo 09/19/2024 10:32 AM Shawna Varela RN [facility] CompanyBvukwf88-68-1567Mtq you blind, or do you have serious difficulty seeing, even when wearing glassesNo 09/19/2024 10:32 AM Shawna Varela RN NoCTogus VA Medical CenterIexqoi58-54-5776Ou you have serious difficulty walking or climbing stairsNo 09/19/2024 10:32 AM Shawna Varela RN NoCTogus VA Medical CenterXodfxx51-54-5336Ys you have difficulty dressing or bathingNo 09/19/2024 10:32 AM Shawna Varela RN NoCleveland Sckxjg66-95-1014Ahvknil of a physical, mental, or emotional condition, do you have difficulty doing errands alone such as visiting a physician's office or shoppingNo 09/19/2024 10:32 AM Shawna Varela RN No [facility] Mental Status XhtvWfockejwpmPxkagbBsogjqxh60-54-6886Lglespj of a physical, mental, or emotional condition, do you have serious difficulty concentrating, remembering, or making decisionsNo 09/19/2024 10:32 AM Shawna Varela RN [facility] Clinical Notes 09-20-2020 to 11-24-2024 Note Date & VhmaLcmsHbmvpmwu30-11-3989 History of Present illness Narrative* Idalmis Basilio APRN.PATIENT ACCOUNT SPECIALIST - 11/24/2024 10:30 AM EDT Images from the original note were not included. NAME: Rafat Bella [facility] NO.: [id number] DATE OF SERVICE: November 24, 2024 (Praful) [...] 3. Multiple myeloma not having achieved remission ([facility]) (C90.00) 4. Multiple myeloma in remission ([facility]) (C90.01) Monoclonal protein levels remain stable [...] hemoglobin. 5. Stage 3a chronic kidney disease ([facility]) (N18.31) Kidney function remains slightly above normal but stable. - Continue to monitor kidney function with routine labs. ___ CASE HISTORY: Reverse Chronological Order 07/21/2024 - A. 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 01/17/2023 - Left parotid biopsy: at [facility] Atypia of undetermined significance 2018 - [...] 02/07/2022. 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 He has no complaints. [...] clot in January 2016. He went to [facility] for fatigue and diagnosed with a [...] Revlimid. Had hospitalization in January 2017 to [place] and had a kyphoplasty for compression fracture. [...] for up to 5 days. DEXCOM G7 VETERINARY MEDICINE DOCTOR [facility] USE AT HOME TO TEST BLOOD SUGAR [...] which included preparing to see the patient, xrop-db-ncza patient care, completing clinical documentation, obtaining and/or reviewing separately obtained history, performing a medically appropriate examination, counseling and educating the patient/family/caregiver, ordering medications, tests, or procedures, independently interpreting results (not separately reported), communicating results to the patient/family/caregiver, and care coordination (not separately reported). Idalmis Basilio APRN, MANAGER ASSEMBLY-C, [facility] Provided at: [place], [place] CC: Danilo Clark MD [facility] [id number] MD Frankie Manning MD documented in this encounterCleveland Clinic [facility]09-03-2025 NoteAvita Health [facility]07-25-2025 Evaluation note* Diagnosis Onset Date Resolution [...] (hypertension)chronicOctober 2024 1:48pm Multiple myelomachronicOctober 2024 1:48pm [facility] Work Phone: 1(383) 281-195107-24-2025 History of Present illness Narrative* Jabier Aldridge DPM - 10/14/2024 4:00 PM EDT Patient: Rafat Bella : 1940 PCP: Daniol E Ball, DO SUBJECTIVE This is a [...] and negative PT pedal pulses NEURO: 5.07 Linton Bhavya monofilament test diminished to digits and forefoot bilaterally 125Hz tuning fork diminished to 1st MPJ bilaterally ORTHO: Positive pain on palpation to toenails of the left 1,2,3,4,5 toes and right 1,2,3,4,5 toes Flexion deformities 2 through 5 digits bilaterally ASSESSMENT 1. Diabetes mellitus due to underlying condition with diabetic polyneuropathy, unspecified whether detention insulin use (HCC) 2. Pain due to [...] gear. Jabier Aldridge DPM documented in this encounterCox SouthApolxnipke34-51-7546 NoteAvita Health System [facility] Hospital07-22-2025 History of Present illness Narrative* Angelique Donis, DOROTHY.PATIENT ACCOUNT SPECIALIST - 10/12/2024 2:31 PM EDT PALLIATIVE MEDICINE PROGRESS NOTE SERVICE DATE: October 12, 2024 IDENTIFICATION AND INTRODUCTION: Rafat Bella is a 84 year old male This visit took place In Ambulatory [facility] Facility Recording using ambient Bizen software for draft documentation of the visit was discussed with the patient/authorized community health program representative; all questions welcomed and answered. Patient/authorized community health program representative agreed to proceed CHIEF COMPLAINT: Neoplasm [...] this time. REVIEW OF SYSTEMS: Modified ESAS ([place] Symptom Assessment Scale) Information Provided By: Patient and Family member Pain: Mild Nausea: None Loss of Appetite: None Constipation: None Shortness of Breath: None Drowsiness: None Tiredness: None Depression: None Anxiety: None Objective PHYSICAL EXAMINATION: BP 128/73 Pulse 76 Temp 36.2 C (97.2 F) (Temporal) Resp 16 Wt 115 kg (253 lb 8.5 oz) VgP940% BMI 36.38 kg/m General Appearance: No apparent [...] which included preparing to see the patient, ngkg-if-abjs patient care, completing clinical documentation, obtaining and/or reviewing separately obtained history, performing a medically appropriate examination, counseling and educating the pat ient/family/caregiver, ordering medications, tests, or procedures, communicating with other HCPs (not separately reported), independently interpreting results (not separately reported), communicatingresults to the patient/family/caregiver, and care coordination (not separately reported) None Needed Palliative Medicine Nurse to do telephonic follow-up: No Extractive Metallurgist Services: None at this time Referral to Deep Fryer Assembler: No, not at this time Angelique Donis NP, COAL HAULER.PATIENT ACCOUNT SPECIALIST October 12, 2024 2:31 PM This note may have been partially generated using the [employer] voice recognition system. While every effort was made to correct voice recognition errors, kindly be aware that some errors may occasionally occur. documented in this encounterCleveland Clinic [facility]ina Hospital07-22-2025 Instructions* Patient Instructions* Silvia Lehman, RN - 10/12/2024 12:16 PM EDT Follow up with Dr Pang in 3-4 months documented in this encounterCleveland Clinic Medina Hospital07-22-2025 NoteAvita Health [facility]07-22-2025 History of Present illness Narrative* Gurpreet [...] 5 days. 10 tablet 0 DEXCOM G7 VETERINARY MEDICINE DOCTOR misc USE AT HOME TO TEST BLOOD [...] Patient is a non-smoker documented in this encounterCleveland Clinic Medina Hospital07-22-2025 NoteAvita [facility]07-07-2025 History of Present illness Narrative* Radha [...] visit. Radha Murphy RN documented in this encounterCleveland Clinic [facility] Hospital07-07-2025 NoteAvita [facility]07-07-2025 Telephone encounter Note* Telephone Encounter - Zakiya Palma - 09/27/2024 12:52 PM EDT Spoke w/ and he will be in today. Thanks! Zakiya Palma [facility]07-07-2025 Miscellaneous Notes* Telephone Encounter - Zakiya Palma [...] be pulled. Spoke with our [facility] [place] [facility] and we are able to pull the BARB if we get the okfrom the surgeon and the pt or we are aware of the post care needed. The patient would also have juan carlos here this afternoon as tomorrow is a holiday. Made the aware of all of this. She is also going to call the [facility] in the mean time while they wait to hear from her surgery team. Informed her to call us if they plan to come in so we know they are coming. verbalized understanding. Abbie Eisenberg RN documented in this encounterCleveland Clinic [facility] Hospital07-07-2025 Telephone encounter Note * Telephone Encounter - Rafaela Rodriguez RN - 09/27/2024 9:[address] Phil [facility] office, called with okay to pull drain. Documented okay per Dr Villarreal in previous encounter. PSS: Please call to schedule Rafaela Rodriguez RN [facility]07-03-2025 Telephone encounter Note* Telephone Encounter - Louise Mike RN - 09/23/2024 1:46 PM EDT Patient notified ok to have drain pulled in [place] per Dr. Pang. [facility]07-03-2025 Miscellaneous Notes* Telephone Encounter - Louise Mike RN - 09/23/2024 1:46 PM EDT Patient notified ok to have drain pulled in [place] per Dr. Pang. * Telephone Encounter - Louise Mike RN - 09/23/2024 1:08 PM EDT Spoke with . States drain output has been about 10ml, twice a day. They are wondering if they can go to their doctor or the ED in [place] to have the drain pulled. 09/17/24 PAROTIDECTOMY (Left: Neck) * Telephone Encounter - Alexus Sullivan - 09/23/2024 12:38 PM EDT Person Calling:pts Reason for Call: Wants to know if [facility] 09/23/24 Pt Phone #: [phone] Pharmacy Name and # : Pt last seen: 08/31/2024 Alexus Sullivan * Telephone Encounter - Tabitha Downs - 09/23/2024 11:29 AM EDT Pt needs a BARB tube removed, 20ml in the last 24 hours [facility] documented in this encounterCleveland Clinic [facility] Hospital07-03-2025 Telephone encounter Note * Telephone Encounter - Abbie Eisenberg RN - 09/23/2024 1:41 PM EDT Pt calling to see if we are able to pull BARB drain. There is another phone encounter to her surgery team as well to see if it is ok to be pulled. Spoke with our Nurse manager group home [place] [facility] and we are able to pull the BARB if we get the okfrom the surgeon and the pt or we are aware of the post care needed. The patient would also have juan carlos here this afternoon as tomorrow is a holiday. Made the aware of all of this. She is also going to call the [facility] in the mean time while they wait to hear from her surgery team. Informed her to call us if they plan to come in so we know they are coming. verbalized understanding. Abbie Eisenberg RN [facility]07-03-2025 Telephone encounter Note* Telephone Encounter - Louise Mike RN - 09/23/2024 1:08 PM EDT Spoke with . States drain output has been about 10ml, twice a day. They are wondering if they can go to their doctor or the ED in [place] to have the drain pulled. 09/17/24 PAROTIDECTOMY (Left: Neck) [facility]07-03-2025 Telephone encounter Note* Telephone Encounter - Alexus Sullivan - 09/23/2024 12:38 PM EDT Person Calling:pts Reason for Call: Wants to know if they [facility] 09/23/24 Pt Phone #: [phone] Pharmacy Name and # : Pt last seen: 08/31/2024 Alexus Sullivan [facility]07-03-2025 Telephone encounter Note* Telephone Encounter - Tabitha Downs - 09/23/2024 11:29 AM EDT Pt needs a BARB tube removed, 20ml in the last 24 hours [place]? [facility]06-29-2025 NoteAv[facility]06-28-2025 Note [facility]06-27-2025 NoteAv[facility]06-27-2025 NoteAv[facility]06-27-2025 NoteAv[facility] 09-13-2024 History of Present illness Narrative* Frankie Martinez MD - 09/13/2024 11:29 PM EDT Images from the original note were not included. Radiation Oncology - New Patient/Consult Note PATIENT NAME: Rafat Bella PATIENT Signed: Frankie Martinez MD I spent a total of 60 minutes on the date of the service which included preparing to see the patient, vpts-uv-nvgy patient care, and counseling and educating the [...] monitoring. Dana Stephen RN documented in this encounterCleveland Clinic [facility] Hospital06-19-2025 Telephone encounter Note * Telephone Encounter - Gabi Granados - 09/09/2024 8:34 AM EDT 92209/09/[address] Clark's office. Allyson advises the AC instructions were faxed to the [facility] office with a confirmation received the fax went through at [phone]. Diane please advise you have received this fax. Gabi PERERA, ANA, [facility] P[facility] Resource nurse Call to Dr Clark's office. Message left on the nursing line for Dr Clark. Inquired if letter receivedin regards to the AC. Contact info left on voice mail. Re-sent letter to current fax in Inbox[employer]. Gabi PERERA, ANA, [facility] P[facility] Resource nurse [facility]06-19-2025 Miscellaneous Notes* Telephone Encounter - Radha Granadose - 09/09/2024 8:34 AM EDT 92209/09/[address] Clark's office. Allyson advises the AC instructions were faxed to the [facility] office with a confirmation received the fax went through at [phone]. Diane please advise you have received this fax. Gabi PERERA RN, [facility] PACC Resource nurse Call to Dr Clark's office. Message left on the nursing line for Dr Clark. Inquired if letter receivedin regards to the AC. Contact info left on voice mail. Re-sent letter to current fax in Inbox[employer]. Gabi PERERA RN, [facility]mm[facility] PACC Resource nurse documented in this encounterCleveland Clinic Medina Hospital06-18-2025 NoteAvita Health [facility]06-18-2025 History of Present illness Narrative* Richa [...] PATIENT PRESENTS WITH AN IMPLANTABLE OR ATTACHED SHUTTLE VENEERING SUPERVISOR: No RADIOLOGY DEPARTMENT: General X-ray: Exam(s) Completed: Chest X-Ray PERIPHERAL IV DATA: Not applicable SIGNED BY: RT Aquilino(R) September 08, 2024 3:08 PM documented in this encounterCleveland Clinic Medina Hospital06-18-2025 Instructions* Patient Instructions* Diane Dickey APRN.PATIENT ACCOUNT SPECIALIST - 09/08/2024 2:35 PM EDT PATIENT PREOPERATIVE INSTRUCTIONS Gurpreet Pang MD has scheduled you for your procedure at this surgery center: [facility] [place] Scheduling Office: [phone] --[address] [place] [address]. Please read below carefully for your personalized [...] or other anticoagulants without consulting with your movie star or prescribing physician. - Stop NSAIDS (Ibuprofen, [...] Procedures: - YOU MUST HAVE A RESPONSIBLE BED WORKER TAKE YOU HOME. A LEAN ENGINEER OR MANUFACTURING SUPERVISOR 2ND SHIFT CANNOT BE MADE A RESPONSIBLE BED WORKER. - We recommend that a responsible person [...] call the Friday before. Your surgeon s flight crew scheduler will tell you what time to call the office. - If you have not reached the departmental flight crew scheduler by 5 P.M., call [phone] after 5 P.M. the day before your surgery. Please be aware that emergency situations arise, which may delay or change your surgical time. If this happens, we will notify you as soon as possible and regret any inconvenience. If you already have an Advance Directive, please fax a copy to [phone] or email to for it to be [...] your chart that day. documented in this encounterCleveland Clinic [facility] Hospital06-18-2025 History and physical note * Diane Dickey [...] kidney disease, unspecified CKD stage, unspecified whether terminal clerk insulin use (HCC) Assessment: Managed with Humulin [...] fevers. Neurological: No history of TIA's, stroke, DESIGN ENGINEER AGRICULTURAL EQUIPMENT tumor, impaired sensorium, hemiplegia, paraplegia orquadraplegia. No [...] by mouth once daily. Yes DEXCOM G7 VETERINARY MEDICINE DOCTOR misc USE AT HOME TO TEST BLOOD [...] 356 QTC Calculation (Bazett) 405 Calculated P [place] 44 Calculated R [place] 43 Calculated T [place] 76 Impression SINUS RHYTHM WITH 1ST DEGREE AV BLOCK NONSPECIFIC T WAVE ABNORMALITY ABNORMAL ECG Instructions Given to Patient: Instructions located in the after visit summary. Patient given verbal and written preop instructions and voices comprehension and compliance. SIGNATURE: Diane Dickey APRN.CNP PATIENT NAME: Rafat Bella DATE: 09/08/2024 TIME: 2:12 PM [facility]06-18-2025 History and physical note* Diane Dickey APRN.CNP [...] kidney disease, unspecified CKD stage, unspecified whether detention insulin use (HCC) Assessment: Managed with Humulin [...] fevers. Neurological: No history of TIA's, stroke, DESIGN ENGINEER AGRICULTURAL EQUIPMENT tumor, impaired sensorium, hemiplegia, paraplegia orquadraplegia. No [...] by mouth once daily. Yes DEXCOM G7 VETERINARY MEDICINE DOCTOR misc USE AT HOME TO TEST BLOOD [...] 356 QTC Calculation (Bazett) 405 Calculated P [place] 44 Calculated R [place] 43 Calculated T [place] 76 Impression SINUS RHYTHM WITH 1ST DEGREE AV BLOCK NONSPECIFIC T WAVE ABNORMALITY ABNORMAL ECG Instructions Given to Patient: Instructions located in the after visit summary. Patient given verbal and written preop instructions and voices comprehension and compliance. SIGNATURE: Diane Dickey APRN.CNP PATIENT NAME: Rafat Bella DATE: 09/08/2024 TIME: 2:12 PM documented in this encounterCleveland Clinic Medina [facility]06-13-2025 NoteHNO ID: [id number] Author: SARA PRITCHETT RN Service: ? Author Type: Registered Nurse Type: Progress Notes Filed: 09/10/2024 08:19 Note Text: [facility]Av[facility] History of Present illness Narrative* Sara Pritchett RN - 09/03/2024 3:34 PM EDT error documented in this encounterCleveland Clinic Medina [facility]06-10-2025 Telephone encounter Note * Telephone Encounter - Alexus Sullivan - 08/31/2024 2:37 PM EDT Person Calling:pts spouse Reason for Call: would like a call back in regards to pt getting scheduled for surgery Pt Phone #: [phone] Pharmacy Name and # : Pt last seen: 08/02/2024 Alexus Sullivan [facility]06-10-2025 Miscellaneous Notes* Telephone Encounter - Alexus Sullivan - 08/31/2024 2:37 PM EDT Person Calling:pts spouse Reason for Call: would like a call back in regards to pt getting scheduled for surgery Pt Phone #: [phone] Pharmacy Name and # : Pt last seen: 08/02/2024 Alexus Sullivan documented in this encounterCleveland Clinic Medina [facility]06-03-2025 Instructions* Patient Instructions* Angelique Donis APRN.MICHAEL - 08/24/2024 1:25 PM EDT Angelique Donis CNP Department of Palliative and Supportive Care Palliative Care - Specialty services in symptom management and support For questions or prescription refills, call: [phone] Friday - Friday 9AM-5PM TREVER Guadarrama, RN - Residence Supervisor Please call 3-5 days in advance for medication refills Evenings, Weekends, Holidays: [phone] (ask for palliative medicine on-call provider) For appointments, cancellations or reschedule, call: [phone] documented in this encounterCleveland Clinic Medina Hospital06-03-2025 NoteAvita [facility]06-03-2025 History of Present illness Narrative* Angelique [...] Left TONSILLECTOMY HX CURRENT MEDICATIONS: DEXCOM G7 VETERINARY MEDICINE DOCTOR misc USE AT HOME TO TEST BLOOD [...] Types: Cigars REVIEW OF SYSTEMS: Modified ESAS ([place] Symptom Assessment Scale): Information Provided By: Patient [...] ear normal. Nose: Nose normal. Mouth/Throat: Lips: [place]. Mouth: Mucous membranes are moist. No oral [...] palliative medicine - Discussed services offered by [facility] - Provided support to family (D49.0) Parotid [...] shared electronic medical record. Angelique Donis NP, COAL HAULER.PATIENT ACCOUNT SPECIALIST August 24, 2024 1:49 PM This note may have been partially generated using the [employer] voice recognition system. While every effort was made to correct voice recognition errors, kindly be aware that some errors may occasionally occur. documented in this encounterCleveland Clinic Medina Hospital05-30-2025 Telephone encounter Note * Telephone Encounter - Ann Orta - 08/20/2024 7:15 AM EDT Images from the original note were not included. [facility]05-30-[facility]25 Miscellaneous Notes* Telephone Encounter - Ann Orta - 08/20/2024 7:15 AM EDT Images from the original note were not included. documented in this encounterCleveland Clinic Medina Hospital05-29-2025 NoteAvita [facility]05-29-2025 Instructions* Patient Instructions* Stacie Schultz - 08/19/2024 4:03 PM EDT Triage to call results of today's labs Proceed surgery with Dr. Pang & radiation with Dr. Martinez [facility] in 3 months Labs 1 week prior documented in this encounterCleveland Clinic Medina Hospital05-29-2025 History of Present illness Narrative* Anibal Ash MD - 08/19/2024 4:00 PM EDT Images from the original note were not included. 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 01/17/2023 - Left parotid biopsy: at [facility] Atypia of undetermined significance 2018 - [...] 02/07/2022. 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 He has no complaints. [...] clot in January 2016. He went to [facility] for fatigue and diagnosed with a [...] Revlimid. Had hospitalization in January 2017 to [place] and had a kyphoplasty for compression fracture. [...] Penicillins Swelling Swelling of the mouth. MEDICATIONS: [employer] G7 VETERINARY MEDICINE DOCTOR [facility] USE AT HOME TO TEST BLOOD SUGAR [...] which included preparing to see the patient, pxvh-le-bqub patient care, completing clinical documentation, obtaining and/or reviewing separately obtained history, performing a medically appropriate examination, counseling and educating the patient/family/caregiver, ordering medications, tests, or procedures, independently interpreting results (not separately reported), communicating results to the patient/family/caregiver, and care coordination (not separately reported). Anibal Ash MD, CPE Hematology and Oncology Services Provided at: [place], [place] Scribe Attestation: This note was scribed [...] direction. CC: Danilo Clark MD [address] [facility] [id number] MD Frankie Manning MD documented in this encounterCleveland Clinic Medina Hospital05-29-2025 NoteAv[facility]05-29-2025 NoteAv[facility]05-27-2025 NoteAv[facility]05-27-2025 History of Present illness Narrative* Gurpreet [...] with extraparotid extension of tumor SURGICAL PATHOLOGY: [id number] Order: [id number] Collected 07/21/2024 11:22 AM Status: Final result [...] in one cassette. Gross examination performed at [facility], [address] [place] [address] [facility] July 21, 2024 7:23 PM Consultation requested [...] Medications Medication Sig Dispense Refill DEXCOM G7 VETERINARY MEDICINE DOCTOR [facility] USE AT HOME TO TEST BLOOD SUGAR [...] Patient is a non-smoker documented in this encounterCleveland Clinic Medina Hospital05-23-2025 NoteAvita [facility]05-16-2025 Telephone encounter Note* Telephone Encounter - [...] 2pm. She accepted appointment at this time. [facility]05-16-2025 Miscellaneous Notes* Telephone Encounter - Lashonda Butcher [...] someone be able to contact this pt? [phone] * Telephone Encounter - Tabitha Downs - 08/02/2024 11:46 AM EDT Person Calling:Shira Reason for Call:Would like a callback to review the pt's biopsy results. Pt Phone #: [phone] Tabitha Downs documented in this encounterCleveland Clinic Medina Hospital05-16-2025 Telephone encounter Note * Telephone Encounter - Tabitha Downs - 08/06/2024 1:07 PM EDT Pt's called back today frustrated that no one has called back to review biopsy results. Pt is on the line and requesting to speak to someone as soon as possible. Will someone be able to contact this pt? [phone] [facility]05-12-2025 Telephone encounter Note* Telephone Encounter - Tabitha Downs - 08/02/2024 11:46 AM EDT Person Calling:Shira Reason for Call:Would like a callback to review the pt's biopsy results. Pt Phone #: [phone] Tabitha Himanshu [facility]05-12-2025 Telephone encounter Note* Telephone Encounter - Rafaela [...] and Wan 09/07/24. Wan: MAHIN Rodriguez RN [facility]05-12-2025 Miscellaneous Notes* Telephone Encounter - Rafaela Rodriguez [...] Wan: MAHIN Rodriguez RN documented in this encounterCleveland Clinic Med[facility] Hospital05-09-2025 Telephone encounter Note * Telephone Encounter - Denae Grider RN - 07/30/2024 2:47 PM EDT Palliative Medicine Referral Assessment Referral Accepted: Yes, Location: [place]. 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 Established with Inpatient Pall Med team: no Reason for consult: introduction to services, goals of care, cancer related pain, nausea/vomiting, and symptom support Clinic location: Bill Grider RN July 30, 2024 documented in this encounterCleveland Clinic Medina Hospital05-07-2025 Telephone encounter Note * Telephone Encounter - Silvia Lehman RN - 07/28/2024 11:14 AM EDT Message per Dr Mendoza: I need to see him back in clinic -- also appt with palliative, med onc and rad onc julian wiley [facility]05-07-2025 Miscellaneous Notes* Telephone Encounter - Silvia Lehman, RN - 07/28/2024 11:14 AM EDT Message per Dr Mendoza: I need to see him back in clinic -- also appt with palliative, med onc and rad onc thanks saurabh documented in this encounterCleveland Clinic Medina Hospital04-23-2025 Evaluation note* Diagnosis Onset Date Resolution Status Admit Date Back pain of thoracolumbar region acuteApril 2024 1:13pmElevated cholesterolacuteApril 2024 1:13pmMass of left parotid glandacuteApril 2024 1:13pmMedicare annual wellness visit, subsequentacuteApril 2024 1:13pmType 2 diabetes mellitus with diabetic polyneuropathyacuteApril 2024 1:13pmType 2 diabetes mellitus with hyperglycemiaacuteApril 2024 1:13pmHTN (hypertension)chronicApril 2024 1:13pmMultiple myelomachronicApril 2024 1:13pm [facility] Work Phone: [phone] Telephone encounter Note* Telephone Encounter - Garth Mitchell - 07/14/2024 12:27 PM EDT Spoke with patient's (Shira) and scheduled BX on 07/21/24 [facility]04-23-2025 Miscellaneous Notes* Telephone Encounter - Garth Mitchell [...] for this procedure: intermediate-high risk. Reference from [facility] Icebox Man: [email or web address] STAFF SIGNATURE: Cal Elizabeth MD DATE: July 12, 2024 TIME: 3:42 PM * Telephone Encounter - Keira Owens LPN - 07/08/2024 3:16 PM EDT BX. COORDINATOR INFORMATION LAB RESULTS: PT INR (no units) Date Value 10/01/2017 2.5 No results found for: APTT Platelet Count (k/uL) Date Value 05/10/2024 232 12/11/2020 185 Current Outpatient Medications Medication Sig DEXCOM G7 VETERINARY MEDICINE DOCTOR misc USE AT HOME TO TEST BLOOD [...] INFORMATION: Best way to reach patient SCHEDULING: [facility] (Specific requests must be greater than [...] random biopsies do not need imaging.) IMAGING: [facility] (If the imaging was obtained outside the [facility] system, PLEASE upload for review prior to approval.) Note to all persons requesting biopsies: All biopsy requests will be scheduled as quickly as possible, based on the clinical urgency, availability of appointment times, the need to hold anti-thrombolytic therapy (aspirin and other blood thinners) and the patient s schedule, including the need for an available road train driver. If a percutaneous biopsy or drainage is not felt to be safe or an alternative method for establishing a diagnosis is possible, this will be discussed directly with the requesting physician. documented in this encounterCleveland Clinic Medina Hospital04-21-2025 Telephone encounter Note * Telephone Encounter - [...] for this procedure: intermediate-high risk. Reference from [facility] Icebox Man: https://ccf.policytech.com/dotNet/documents/?[email or web address] STAFF SIGNATURE: Cal Elizabeth MD DATE: July 12, 2024 TIME: 3:42 PM [facility]04-17-2025 Telephone encounter Note* Telephone Encounter - Keira Owens LPN - 07/08/2024 3:16 PM EDT BX. COORDINATOR INFORMATION LAB RESULTS: PT INR (no units) Date Value 10/01/2017 2.5 No results found for: APTT Platelet Count (k/uL) Date Value 05/10/2024 232 12/11/2020 185 Current Outpatient Medications Medication Sig DEXCOM G7 VETERINARY MEDICINE DOCTOR misc USE AT HOME TO TEST BLOOD [...] DATE: July 08, 2024 TIME: 3:16 PM [facility]04-17-2025 Telephone encounter Note* Telephone Encounter - Silvia Lehman RN - 07/08/2024 2:48 PM EDT STAFF-INITIATED RADIOLOGY BIOPSY / ASPIRATION / DRAIN REQUEST FORM Date: July 08, 2024 Time: 2:49 PM PATIENT CONTACT INFORMATION: Best way to reach patient SCHEDULING: [facility] (Specific requests must be greater than [...] random biopsies do not need imaging.) IMAGING: [facility] (If the imaging was obtained outside the [facility] system, PLEASE upload for review prior to approval.) Note to all persons requesting biopsies: All biopsy requests will be scheduled as quickly as possible, based on the clinical urgency, availability of appointment times, the need to hold anti-thrombolytic therapy (aspirin and other blood thinners) and the patient s schedule, including the need for an available road train driver. If a percutaneous biopsy or drainage is not felt to be safe or an alternative method for establishing a diagnosis is possible, this will be discussed directly with the requesting physician. [facility]04-17-2025 NoteAvita [facility]04-17-2025 History of Present illness Narrative* Olivia Rios OCCA - 07/08/2024 2:11 PM EDT Tobacco Use: Types: Cigars Was smoking cessation packet given? N/A - Patient is a non-smoker or quit >1 year ago. Was a referral initiated?N/A Patient is a non-smoker * Gurpreet Pang MD - 07/08/2024 2:02 PM EDT Rafat Bella [id number] July 08, 2024 [place] New patient Consultation requested by Dr. Anibal [...] Medications Medication Sig Dispense Refill DEXCOM G7 VETERINARY MEDICINE DOCTOR misc USE AT HOME TO TEST BLOOD [...] care. Gurpreet Pang MD documented in this encounterCleveland Clinic Medina Hospital04-17-2025 NoteAvita [facility]03-12-2025 Telephone encounter Note* Telephone Encounter - Abbie Eisenberg RN - 06/02/2024 1:32 PM EDT Thanks Ann [facility]03-12-2025 Miscellaneous Notes* Telephone Encounter - Abbie Eisenberg [...] determine plan. Thank you documented in this encounterCleveland Clinic Medina Hospital03-12-2025 Telephone encounter Note * Telephone Encounter - Ann Orta - 06/02/2024 1:22 PM EDT Patient is scheduled and confirmed with Main ENT July 08 at 2:15. Labs August 25 at 11 and Follow up September 01. Confirmed dates and time with . Also mailed appt reminder with addresses for them., [facility]03-12-2025 Telephone encounter Note* Telephone Encounter - Abbie Eisenberg RN - 06/02/2024 10:54 AM EDT Pt and notified and all questions answered. Pt states they would prefer to go to [facility],Dr. Blas is agreeable to that plan. PSS: Please schedule per DR. BLAS's previous message. Thanks Abbie Eisenberg RN [facility]03-12-2025 Telephone encounter Note* Telephone Encounter - Anibal Ash MD - 06/02/2024 10:41 AM EDT Needs ENT consult. For parotid mass- Then needs labs in 12 weeks see me in 13 weeks. For myeloma. [facility]03-10-2025 Telephone encounter Note* Telephone Encounter - Abbie Eisenberg RN - 05/31/2024 8:25 AM EDT WAN: CT of neck is resulted for your review and to decide on plan of care per your visit disposition. Pt has no follow up. Please review and advise. Thanks. Abbie Eisenberg RN [facility]03-07-2025 History of Present illness Narrative* Litzy Kunz [...] PATIENT PRESENTS WITH AN IMPLANTABLE OR ATTACHED SHUTTLE VENEERING SUPERVISOR: No RADIOLOGY DEPARTMENT: CT; Exam(s) Completed: Neck [...] 2024 TIME: 2:15 PM documented in this encounterCleveland Clinic Medina Hospital03-07-2025 NoteAvita [facility]03-07-2025 NoteAv[facility]02-24-2025 Telephone encounter Note* Telephone Encounter - Lori Christine - 05/17/2024 3:30 PM EST Rafat is scheduled for a Ct neck on 05-28-24. Dr Blas is requesting triage nurse to call results and determine plan. Thank you [facility]02-24-2025 Instructions* Patient Instructions* Stacie Schultz - 05/17/2024 3:07 PM EST Obtain images and reports of CT & US of the Neck & Head from [facility] from 12/2022-02/2023 CT Neck when available Triage to call results and determine plan documented in this encounterCleveland Clinic Medina Hospital02-24-2025 History of Present illness Narrative* Anibal Ash MD - 05/17/2024 2:40 PM EST Images from the original note were not included. NAME: Rafat Bella CLINIC NO.: [id number] DATE OF SERVICE: May 17, 2024 (Mihir) [...] US of the Neck & Head from [facility] from 12/2022-02/2023 CT Neck when available Triage to call results and determine plan ___ HPI: CASE HISTORY: Reverse Chronological Order 05/10/2024 - M-protein concentration: 0.60 02/02/2024 - CBC: 6.18 > 13.8 / 40.7 < 181, eGFR: 56, Creatinine: 1.28 [place]: 109.2, Lambda: 45.1, K/L Ratio: 2.42 IgA: [...] node. 01/17/2023 - Left parotid biopsy: at [facility] Atypia of undetermined significance 2017 - [...] 02/07/2022. 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 He has no complaints. [...] clot in January 2016. He went to [place] [facility] for fatigue and diagnosed with a [...] Revlimid. Had hospitalization in January 2017 to [place] and had a kyphoplasty for compression fracture. [...] Swelling of the mouth. MEDICATIONS: DEXCOM G7 VETERINARY MEDICINE DOCTOR misc USE AT HOME TO TEST BLOOD [...] kidney disease, unspecified CKD stage, unspecified whether terminal clerk insulin use (HCC) (N18.32) Stage 3b chronic [...] which included preparing to see the patient, illv-en-itno patient care, completing clinical documentation, obtaining and/or reviewing separately obtained history, performing a medically appropriate examination, counseling and educating the patient/family/caregiver, ordering medications, tests, or procedures, independently interpreting results (not separately reported), communicating results to the patient/family/caregiver, and care coordination (not separately reported). Anibal Ash MD, CPE Hematology and Oncology Services Provided at: [place], [place] Scribe Attestation: This note was scribed [...] under my direction. CC: Danilo Clark MD [address] [place] [address] documented in this encounterCleveland Clinic Medina Hospital02-24-2025 NoteAvita Health [facility]12-19-2024 History of Present illness Narrative* Jabier [...] and negative PT pedal pulses NEURO: 5.07 Linton Bhavya monofilament test diminished to digits and forefoot bilaterally 125Hz tuning fork diminished to 1st MPJ bilaterally ORTHO: Positive pain on palpation to nails 1 through 10 Flexion deformities 2 through 5 digits bilaterally ASSESSMENT 1. Diabetes mellitus due to underlying condition with diabetic polyneuropathy, unspecified whether terminal clerk insulin use ([facility]) 2. Pain due to onychomycosis of [...] gear. Jabier Aldridge DPM documented in this encounterCox [id number] Evaluation note* Diagnosis Multiple myeloma not having achieved remission (HCC)- Primary Multiple myeloma, without mention of having achieved remission Stage 3a chronic kidney disease (HCC) documented in this encounter [facility]11-18-2024 History of Present illness Narrative* Idalmis Basilio APRN.PATIENT ACCOUNT SPECIALIST - 02/09/2024 1:40 PM EST Images from the original note were not included. NAME: Rafat Bella CLINIC NO.: [id number] DATE OF SERVICE: 02/09/2024 (Praful). Some elements [...] 40.7 < 181, eGFR: 56, Creatinine: 1.28 [place]: 109.2, Lambda: 45.1, K/L Ratio: 2.42 IgA: [...] 02/07/2022. 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 He has no complaints. [...] clot in January 2016. He went to [facility] for fatigue and diagnosed with a [...] Revlimid. Had hospitalization in January 2017 to [place] and had a kyphoplasty for compression fracture. [...] Swelling of the mouth. MEDICATIONS: DEXCOM G7 VETERINARY MEDICINE DOCTOR misc USE AT HOME TO TEST BLOOD [...] Cancer Maternal Aunt . Idalmis Basilio APRN, MANAGER ASSEMBLY-C, OCN Hematology and Oncology Services Provided at: [place], [place] CC: Danilo Clark MD [address] [place] [id number] documented in this encounterCleveland Clinic Medina Hospital11-18-2024 NoteAvita [facility]10-10-2024 History of Present illness Narrative* Jabier [...] and negative PT pedal pulses NEURO: 5.07 Linton Bhavya monofilament test diminished to digits and forefoot bilaterally 125Hz tuning fork diminished to 1st MPJ bilaterally ORTHO: Positive pain on palpation to nails 1 through 10 Flexion deformities 2 through 5 digits bilaterally ASSESSMENT 1. Diabetes mellitus due to underlying condition with diabetic polyneuropathy, unspecified whether terminal clerk insulin use ([facility]) 2. Pain due to onychomycosis of [...] gear. Jabier Aldridge DPM documented in this encounterCox [id number] Instructions* Patient Instructions* Stacie Banegas - 11/10/2023 2:07 PM EDT Repeat myeloma labs in 3 months RTC 1 week after to review labs documented in this encounterCleveland Clinic Medina Hospital08-19-2024 History of Present illness Narrative* Anibal Ash MD - 11/10/2023 1:30 PM EDT Images from the original note were not included. NAME: Rafat Bella [facility] NO.: [id number] DATE OF SERVICE: November 10, 2023 (Mihir) [...] 02/07/2022. 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 He has no complaints. [...] clot in January 2016. He went to [place] [facility] for fatigue and diagnosed with a [...] Revlimid. Had hospitalization in January 2017 to [place] and had a kyphoplasty for compression fracture. [...] which included preparing to see the patient, koel-st-ygao patient care, completing clinical documentation, performing a medically appropriate examination, counseling and educating the patient/family/caregiver, ordering medications, tests, or p rocedures, independently interpreting results (not separately reported), communicating results to the patient/family/caregiver, and care coordination (not separately reported). Anibal Ash MD, CPE Hematology and Oncology Services Provided at: [place], [place] Scribe Attestation: This note was scribed [...] my direction. CC: Danilo Clark MD [address] [facility] [address] documented in this encounterCleveland Clinic Med[facility] Hospital06-17-2024 Telephone encounter Note * Telephone Encounter - Rafaela Rodriguez RN - 09/08/2023 8:02 AM EDT Anibal Ash MD 09/06/2023 9:12 AM EDT Hi Rafat - PET scan is negative for any myeloma holes in the bones. Pt' , Shira, informed of Wan's message and denies any questions, needs or concerns at this time. Appointment verified. Rafaela Rodriguez RN [facility]06-17-2024 Miscellaneous Notes* Telephone Encounter - Rafaela Rodriguez [...] scan results from 08-29-23. documented in this encounterCleveland Clinic Medina Hospital06-07-2024 History of Present illness Narrative* Pratima Dang [...] 1253 PATIENT DISCHARGED TO: Ambulatory patient, left [place] department area. A Diagnostic radioactive procedure has taken place, with no further precautions necessary other than routine body substance precautions. More information regarding radiation safety can be found usingthis link: [email or web address]-% 20Diagnostic%20Nuclear%20Medicine%20Procedures.pdf SIGNATURE: RT Joon(Maria) PATIENT NAME: Rafat Bella DATE: August 29, 2023 TIME: 1:58 PM PAGER/CONTACT #: documented in this encounterC[facility] Telephone encounter Note * Telephone Encounter - Lori Christine - 08/11/2023 1:[address] Blas is requesting triage nurse to call Patient with his Pet scan results from 08-29-23. [facility]05-20-[facility] Instructions* Patient Instructions* Stacie Banegas - 08/11/2023 1:21 PM EDT PET/CT whole body as soon as approved Triage to call results Repeat myeloma labs in 3 months RTC 1 week after to review labs documented in this encounterC[facility]05-20-2024 Nurse Note* Madeleine Bradford MA - 08/11/2023 1:09 PM EDT Patient does have flank pain, his thinks it may be UTI, I did advise her to discuss with you but we could do a UA if it is ordered. Madeleine Schilling MA [facility]05-20-2024 Nurse Note* Madeleine Schilling MA - 08/11/2023 1:09 PM EDT Patient does have flank pain, his thinks it may be UTI, I did advise her to discuss with you but we could do a UA if it is ordered. Madeleine Schilling MA documented in this encounterCleveland [facility]05-20-2024 History of Present illness Narrative* Anibal Ash MD - 08/11/2023 1:00 PM EDT Images from the original note were not included. NAME: Rafat Bella [facility] NO.: [id number] DATE OF SERVICE: August 11, 2023 (Mihir) [...] 02/07/2022. 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 He has no complaints. [...] clot in January 2016. He went to [facility] for fatigue and diagnosed with a [...] Revlimid. Had hospitalization in January 2017 to [facility] and had a kyphoplasty for compression fracture. [...] PROTEIN, SERUM (BLOOD), URIC ACID, CALCIUM, IONIZED, KAPPA/OCTA,FREE,SER (R10.9) Flank pain Plan: CANCELED: URINALYSIS WITH [...] which included preparing to see the patient, [id number] patient care, completing clinical documentation, performing a medically appropriate examination, counseling and educating the patient/family/caregiver, ordering medications, tests, or p rocedures, independently interpreting results (not separately reported), communicating results to the patient/family/caregiver, and care coordination (not separately reported). Anibal Ash MD, CPE Hematology and Oncology Services Provided at: [place], [place] Scribe Attestation: This note was scribed [...] direction. 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 [facility] Other 05-11-2023 Evaluation note* Encounter Date Diagnosis Assessment Notes Treatment Notes Treatment Clinical Notes July, Type 2 diabetes mellitus with hy perglycemia (ICD-10 - E11.65) [facility] Other 04-12-2023 Evaluation note* Encounter Date Diagnosis Assessment Notes Treatment Notes Treatment Clinical Notes Jun, Bone metastases (ICD-10 - C79.51 ) [facility] Other 04-11-2023 Evaluation note* Encounter Date Diagnosis [...] Healthy diet, keep active and continue SSRI [facility] Other 03-10-2023 Evaluation note* Encounter Date Diagnosis Assessment Notes Treatment Notes Treatment Clinical Notes May, Type 2 diabetes shelia itus with diabetic polyneuropathy, 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 - E11.42) [facility] Other 02-08-2023 Evaluation note* Encounter Date Diagnosis Assessment Notes Treatment Notes Treatment Clinical Notes Apr, Type 2 diabetes mellitus with hy perglycemia (ICD-10 - E11.65) [facility] Other 02-07-2023 Evaluation note* Encounter Date Diagnosis Assessment Notes Treatment Notes Treatment Clinical Notes Apr, Type 2 diabetes mellitus with hy perglycemia (ICD-10 - E11.65) [facility] Other 01-10-2023 Evaluation note* Encounter Date Diagnosis [...] inspect BM daily for discoloration of bleeding [facility] Other [id number] Instructions* Patient Instructions* Anibal Ash MD - 02/11/2022 4:50 PM EST Repeat myeloma labs in 6 months RTC 1 week after to review labs documented in this encounterC[facility]11-21-2022 History of Present illness Narrative* Anibal Ash MD - 02/11/2022 4:44 PM EST Images from the original note were not included. NAME: Rafat Bella [facility] NO.: [id number] DATE OF SERVICE: February 11, 2022 (flowers [...] 02/07/2022. 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 He has no complaints. [...] clot in January 2016. He went to [facility] for fatigue and diagnosed with a [...] Revlimid. Had hospitalization in January 2017 to [facility] and had a kyphoplasty for compression fracture. [...] CPE Hematology and Oncology Services Provided at: [place], [place] CC: Danilo Clark MD [address] [facility] [address] documented in this encounterCleveland Clinic [facility]11-21-2022 Nurse Note* Madeleine Schilling MA - 02/11/2022 9:07 AM EST Clinical questionnaires incomplete due to Patient was roomed by provider, phone call. Madeleine Schilling MA documented in this encounterCleveland Clinic [facility]11-15-2022 History of Present illness Narrative* Anibal Ash MD - 02/05/2022 12:12 PM EST Patient will need to reschedule - he did not draw labs as requested / planned. documented in this encounterCleveland Clinic [facility]11-11-2022 Nurse Note* Kira Dunlap Ma - 02/01/2022 4:14 PM EST Clinical questionnaires incomplete due to Patient was roomed by provider. Kira Dunlap Ma documented in this encounterCleveland Clinic [facility]07-06-2021 Note [id number]07-05-2021 [id number] 09-20-2020 [facility] SURGERY Clinical Discharge Summary PERSON INFORMATION Name RAFAT BELLA Age 80 Years 1940 Sex MALE Language Qatari PCP Danilo Clark Marital Status [facility] Service Ambulatory Surgery Acct# Arrival 09/20/2020 10:33:00 Visit Reason SURGERY -RIGHT CARPAL TUNNEL RELEASE Acuity LOS 007 04:12 Address: [address] [place] [address] [address] [facility] [id number] Comment: PROVIDER INFORMATION VITALS INFORMATION Vital Sign [...] needed for pain. tamsulos (more content not included)...[facility] Multiple myeloma not having achieved remission (HCC)- Primary Multiple myeloma, without mention of having achieved remission documented [facility] this encounter [facility]* Diagnosis 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) [C90.01 (ICD-10-CM)]- Primary Multiple myeloma in remission documented in this encounter [facility] noteNo [facility]K[place] [facility] Other Evaluation note* Diagnosis Parotid mass- Primary Swelling, mass, or lump in head and neck documented in this encounter [facility] Work Phone: Evaluation note* Diagnosis Onset Date Resolution Status Benign prostatic hyperplasia with lower urinary tract symptoms acuteChronic kidney diseaseacuteElevated cholesterolacuteType 2 diabetes mellitus with diabetic polyneuropathyacuteType 2 diabetes mellitus with hyperglycemiaacuteHTN (hypertension)chronicMultiple myelomachronic [facility] Work Phone: Evaluation note* Diagnosis Multiple myeloma not having achieved remission (HCC)- Primary Multiple myeloma, without mention of having achieved remission Flank pain Abdominal pain, unspecified site Mild episode of recurrent major depressive disorder (HCC) Thrombocytopenia (HCC) Thrombocytopenia, unspecified Stage 3b chronic kidney disease (HCC) Stage 3a chronic kidney disease (HCC) [facility]* Diagnosis Onset Date Resolution Status Benign prostatic hyperplasia with lower urinary tract symptoms acuteChronic kidney diseaseacuteElevated cholesterolacuteType 2 diabetes mellitus with diabetic polyneuropathyacuteType 2 diabetes mellitus with hyperglycemiaacuteHTN (hypertension)chronicMultiple myelomachronicAcute chest wall painacuteBack pain of thoracolumbar regionacuteChronic kidney diseaseacute Multiple myelomachronic [facility] Work Phone: Evaluation note* Diagnosis Onset Date Resolution Status Acute chest wall pain acuteBack pain of thoracolumbar regionacuteChronic kidney diseaseacuteMultiple myelomachronicBack pain of thoracolumbar regionacuteBenign prostatic hyperplasia with lower urinary tract symptomsacuteChronic kidney diseaseacuteElevated cholesterolacuteType 2 diabetes mellitus with diabetic polyneuropathyacuteType 2 diabetes mellitus with hyperglycemiaacuteHTN (hypertension)chronicMultiple [facility]omaK[facility] Work Phone: Evaluation note* Diagnosis Multiple myeloma not having achieved remission (HCC)- Primary Multiple myeloma, without mention of having achieved remission Stage 3a chronic kidney disease (HCC) Thrombocytopenia (HCC) Thrombocytopenia, unspecified [facility]* Diagnosis Multiple myeloma not having achieved remission (HCC) Multiple myeloma, without mention of having achieved remission [facility]* Diagnosis Diabetes mellitus due to underlying condition with diabetic polyneuropathy, unspecified whether detention insulin use ([facility]/HCC)- Primary Pain due to onychomycosis of toenails of both feet Acquired deformity of right toe Acquired deformity of left toe [facility]* Diagnosis Onset Date Resolution Status [...] 2 diabetes mellitus with hyperglycemiaacuteHTN (hypertension)chronicMultiple myelomachronic [facility] Work Phone: Evaluation note* Diagnosis Diabetes mellitus due to underlying condition with diabetic polyneuropathy, unspecified whether terminal clerk insulin use ([facility]/HCC)- Primary Pain due to onychomycosis of toenails of both feet Acquired deformity of right toe Acquired deformity of left toe [facility]* Diagnosis Onset Date Resolution Status Admit Date Back pain of thoracolumbar region acuteJanuary 2024 1:22pmChronic kidney diseaseacuteJanuary 2024 1:22pmElevated cholesterolacuteJanuary 2024 1:22pmMass of left parotid glandacuteJanuary 2024 1:22pmType 2 diabetes mellitus with diabetic polyneuropathyacuteJanuary 2024 1:22pmType 2 diabetes mellitus with hyperglycemiaacuteJanuary 2024 1:22pmHTN (hypertension)chronicJanuary 2024 1:22pmMultiple myelomachronicJanuary 2024 1:22pm [facility] Work Phone: Evaluation note* Diagnosis Mass of ear auricle, left- Primary Multiple myeloma not having achieved remission (HCC) Multiple myeloma, without mention of having achieved remission Thrombocytopenia (HCC) Thrombocytopenia, unspecified Chronic anticoagulation Long-term (current) use of anticoagulants Type 2 diabetes mellitus with diabetic chronic kidney disease, unspecified CKD stage, unspecified whether detention insulin use ([facility]) Stage 3b chronic kidney disease (HCC) [facility]* Diagnosis Mass of ear auricle, left Multiple myeloma not having achieved remission (HCC) Multiple myeloma, without mention of having achieved remission Thrombocytopenia (HCC) Thrombocytopenia, unspecified Chronic anticoagulation Long-term (current) use of anticoagulants [facility]* Diagnosis Parotid mass- Primary Swelling, mass, or lump in head and neck Multiple myeloma not having achieved remission (HCC) Multiple myeloma, without mention of having achieved remission documented [facility] this encounter [facility]* Diagnosis Multiple myeloma not having achieved remission (HCC)- Primary Multiple myeloma, without mention of having achieved remission Parotid mass Swelling, mass, or lump in head and neck documented in this encounter [facility]* Diagnosis 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 Parotid mass Swelling, mass, or lump in head and neck documented [facility]* Diagnosis Onset Date Resolution Status Admit Date Back pain of thoracolumbar region acuteApril 2024 1:13pmElevated cholesterolacuteApril 2024 1:13pmMass of left parotid glandacuteApril 2024 1:13pmMedicare annual wellness visit, subsequentacuteApril 2024 1:13pmType 2 diabetes mellitus with diabetic polyneuropathyacuteApril 2024 1:13pmType 2 diabetes mellitus with hyperglycemiaacuteApril 2024 1:13pmHTN (hypertension)chronicApril 2024 1:13pmMultiple myelomachronicApril 2024 1:13pm [facility] Work Phone: Evaluation note* Diagnosis 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 Parotid mass Swelling, mass, or lump in head and neck documented in this encounter [facility]* Diagnosis 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 Parotid mass Swelling, mass, or lump in head and neck Multiple myeloma not having achieved remission (HCC) Multiple myeloma, without mention of having achieved remission documented in this encounter [facility]* Diagnosis Multiple myeloma not having achieved remission (HCC)- Primary Multiple myeloma, without mention of having achieved remission 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, unspecified CKD stage, unspecified whether detention insulin use (HCC) documented in this encounter [facility]* Diagnosis Mucoepidermoid carcinoma (HCC)- Primary Other malignant neoplasm without specification of site documented [facility] this encounter [facility]* Diagnosis Palliative care by specialist- Primary Parotid neoplasm Neoplasm of unspecified nature of digestive system Multiple myeloma not having achieved remission (HCC) Multiple myeloma, without mention of having achieved remission 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 documented [facility] this encounter [facility]* 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, unspecified CKD stage, unspecified whether terminal clerk insulin use (HCC) Anticoagulated Long-term (current) use [...] kidney disease, unspecified CKD stage, unspecified whether detention insulin use (HCC) Assessment: Managed with Humulin in morning and Bedtime CGM reports FBG 177 Hemoglobin A1C (%) Date Value 08/19/2024 7.5 12/01/2019 7.6 documented in this encounter [facility]* 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, unspecified CKD stage, unspecified whether terminal clerk insulin use (HCC) Anticoagulated Long-term (current) use [...] specification of site [facility]* Diagnosis Head and neck cancer (HCC)- Primary Malignant neoplasm of head, face, and neck Parotid neoplasm Neoplasm of unspecified nature of digestive system Parotid mass Swelling, mass, or lump in head and neck 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, unspecified CKD stage, unspecified whether terminal clerk insulin use (HCC) Anticoagulated Long-term (current) use of anticoagulants Stage 3b chronic kidney disease (HCC) Multiple myeloma not having achieved remission (HCC) Multiple myeloma, without mention of having achieved remission Chronic pain due to neoplasm Primary hypertension Unspecified essential hypertension BMI 37.0-37.9, adult Body Mass Index 37.0-37.9, adult 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 documented [facility]* 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, unspecified CKD stage, unspecified whether terminal clerk insulin use (HCC) Anticoagulated Long-term (current) use [...] ear auricle, left documented in this encounter [facility] note* 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, unspecified CKD stage, unspecified whether terminal clerk insulin use (HCC) Anticoagulated Long-term (current) use [...] to opioid therapy [facility]* 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, unspecified CKD stage, unspecified whether detention insulin use (HCC) Anticoagulated Long-term (current) use [...] parotid gland (HCC) documented [facility] this [facility]* Diagnosis Diabetes mellitus due to underlying condition with diabetic polyneuropathy, unspecified whether terminal clerk insulin use (HCC)- Primary Pain due to onychomycosis of toenails of both feet Acquired deformity of right toe Acquired deformity of left toe [facility]* Diagnosis Onset Date Resolution Status Admit Date Back pain of thoracolumbar region acuteJuly 2024 2:15pmElevated cholesterolacuteJuly 2024 2:15pmMass of left parotid glandacuteJuly 2024 2:15pmMucoepidermoid carcinoma of parotid glandacuteJuly 2024 2:15pmType 2 diabetes mellitus with diabetic polyneuropathyacuteJuly 2024 2:15pmType 2 diabetes mellitus with hyperglycemiaacuteJuly 2024 2:15pmHTN (hypertension)chronicJuly 2024 2:15pmMultiple myelomachronicJuly 2024 2:15pm [facility] Work Phone: Evaluation note* 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, unspecified CKD stage, unspecified whether terminal clerk insulin use (HCC) Anticoagulated Long-term (current) use [...] myeloma in remission documented in this encounter [facility] HospitalHistory general Narrative - Reported* Type Description Date [...] kyphoplasty L101/31/17Hospitalization Historysee aboveHospitalization Historyimmmune system weakness [facility] Other History general Narrative - Reported* Type [...] mass 12/2022Hospitalization Historysee aboveHospitalization Historyimmmune system weakness [facility] Other History of Present illness Narrative* Julian [...] consent was obtained A/P: documented in this [facility] Work Phone: History of Present illness Narrative* [...] and negative PT pedal pulses NEURO: 5.07 Linton Bhavya monofilament test diminished to digits and forefoot bilaterally 125Hz tuning fork diminished to 1st MPJ bilaterally ORTHO: Positive pain on palpation to toenails of the left 1,2,3,4,5 toes and right 1,2,3,4,5 toes Flexion deformities 2 through 5 digits bilaterally ASSESSMENT 1. Diabetes mellitus due to underlying condition with diabetic polyneuropathy, unspecified whether terminal clerk insulin use ([facility]) 2. Pain due to onychomycosis of [...] and negative PT pedal pulses NEURO: 5.07 Linton Bhavya monofilament test diminished to digits and forefoot bilaterally 125Hz tuning fork diminished to 1st MPJ bilaterally ORTHO: Positive pain on palpation to toenails of the left 1,2,3,4,5 toes and right 1,2,3,4,5 toes Flexion deformities 2 through 5 digits bilaterally ASSESSMENT 1. Diabetes mellitus due to underlying condition with diabetic polyneuropathy, unspecified whether terminal clerk insulin use ([facility]) 2. Pain due to onychomycosis of [...] gear. 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 (HCC) Procedures NM PET/CT WHOLE BODY SUBSEQUENT PET IMAGING FOR CT ATTENUATION WHOLE BODY Anibal Ash MD [address] [place] [address] [place] [address] Molecular & Functional Imaging [address] [place] [address] Referral IDStatusReasonStart DateExpiration DateVisits RequestedVisits [id number] Clinical Info Needed Auto-Generated Referral / [facility] for referral (narrative)* Diagnostic Procedure Only (Routine) - ClosedSpecialtyDiagnoses / ProceduresReferred By ContactReferred To ContactMOLECULAR & FUNCTIONAL IMAGING Diagnoses Multiple myeloma not having achieved remission (HCC) Procedures NM PET/CT WHOLE BODY SUBSEQUENT PET IMAGING FOR CT ATTENUATION WHOLE BODY Anibal Ash MD [address] [place] [address] [place] [address] Molecular & Functional Imaging [address] [place] [address] Referral IDStatusReasonStart DateExpiration DateVisits RequestedVisits [id number] Auto-Generated Referral / [facility] for referral (narrative)No reason for referral information availableTrihealth M[facility] Work Phone: [facility] for visit Narrative* Consult, Test, Treat (Routine) - ClosedSpecialtyDiagnoses / ProceduresReferred By ContactReferred To Contact Diagnoses Mucoepidermoid carcinoma (HCC) Procedures REFER TO [facility] PREOPERATIVE OPTIMIZATION OFFICE/OUTPATIENT [facility] 60 MINUTES Gurpreet Pnag MD [address] [facility] [address] [place] [id number] Phone: tel: fax: Referral IDStatusReasonStart DateExpiration DateVisits RequestedVisits [id number] PCP Requested Referral [facility] Summary Purpose Family History Relationship Condition Age [...] 1:48pm Elevated cholesterol January 10, 2025 1:48pm assisted (current) use of anticoagulant s January 10, [...] section and content) DATE CREATED AUTHOR 09/15/2017 [facility] DATE CREATED AUTHOR AUTHOR'S ORGANIZ ATION 09/26/2020 [facility] DATE CREATED AUTHOR AUTHOR'S ORGANIZ ATION 08/30/2022 [facility] DATE CREATED AUTHOR AUTHOR'S ORGANIZ ATION 05/20/2023 [facility] DATE CREATED AUTHOR AUTHOR'S ORGANIZ ATION 05/24/2023 [facility] DATE CREATED AUTHOR AUTHOR'S ORGANIZ ATION 10/16/2024 [facility] DATE CREATED AUTHOR AUTHOR'S ORGANMISHA ATION 10/16/2024 [facility] DATE CREATED AUTHOR AUTHOR'S ORGANMISHA ATION 11/26/2024 [facility] Source Comments (unrecognize d section and content) In the event this informatio n is protected by the Federal Confidentiality of Alcohol and Drug Abuse Patient Records regulations: The Federal rules restrict any use of the information to criminally investigate or prosecute any alcohol or drug abuse patient.[facility] HospitalIn the event this information is protected by the Federal Confidentiality of Alcohol and Drug Abuse Patient Records regulations: The Federal rules restrict any use of the information to criminally investigate or prosecute any alcohol or drug abuse patient.[facility] HospitalIn the event this information is protected by the Federal Confidentiality of Alcohol and Drug Abuse Patient Records regulations: The Federal rules restrict any use of the information to criminally investigate or prosecute any alcohol or drug abuse patient.[facility] HospitalIn the event this information is protected by the Federal Confidentiality of Alcohol and Drug Abuse Patient Records regulations: The Federal rules restrict any use of the information to criminally investigate or prosecute any alcohol or drug abuse patient.[facility] HospitalIn the event this information is protected by the Federal Confidentiality of Alcohol and Drug Abuse Patient Records regulations: The Federal rules restrict any use of the information to criminally investigate or prosecute any alcohol or drug abuse patient.[facility] HospitalIn the event this information is protected by the Federal Confidentiality of Alcohol and Drug Abuse Patient Records regulations: The Federal rules restrict any use of the information to criminally investigate or prosecute any alcohol or drug abuse patient.[facility] HospitalIn the event this information is protected by the Federal Confidentiality of Alcohol and Drug Abuse Patient Records regulations: The Federal rules restrict any use of the information to criminally investigate or prosecute any alcohol or drug abuse patient.[facility] HospitalIn the event this information is protected by the Federal Confidentiality of Alcohol and Drug Abuse Patient Records regulations: The Federal rules restrict any use of the information to criminally investigate or prosecute any alcohol or drug abuse patient.[facility] HospitalIn the event this information is protected by the Federal Confidentiality of Alcohol and Drug Abuse Patient Records regulations: The Federal rules restrict any use of the information to criminally investigate or prosecute any alcohol or drug abuse patient.[facility] HospitalIn the event this information is protected by the Federal Confidentiality of Alcohol and Drug Abuse Patient Records regulations: The Federal rules restrict any use of the information to criminally investigate or prosecute any alcohol or drug abuse patient.[facility] HospitalIn the event this information is protected by the Federal Confidentiality of Alcohol and Drug Abuse Patient Records regulations: The Federal rules restrict any use of the information to criminally investigate or prosecute any alcohol or drug abuse patient.[facility] HospitalIn the event this information is protected by the Federal Confidentiality of Alcohol and Drug Abuse Patient Records regulations: The Federal rules restrict any use of the information to criminally investigate or prosecute any alcohol or drug abuse patient.[facility] HospitalIn the event this information is protected by the Federal Confidentiality of Alcohol and Drug Abuse Patient Records regulations: The Federal rules restrict any use of the information to criminally investigate or prosecute any alcohol or drug abuse patient.[facility] HospitalIn the event this information is protected by the Federal Confidentiality of Alcohol and Drug Abuse Patient Records regulations: The Federal rules restrict any use of the information to criminally investigate or prosecute any alcohol or drug abuse patient.[facility] HospitalIn the event this information is protected by the Federal Confidentiality of Alcohol and Drug Abuse Patient Records regulations: The Federal rules restrict any use of the information to criminally investigate or prosecute any alcohol or drug abuse patient.[facility] HospitalIn the event this information is protected by the Federal Confidentiality of Alcohol and Drug Abuse Patient Records regulations: The Federal rules restrict any use of the information to criminally investigate or prosecute any alcohol or drug abuse patient.[facility] HospitalIn the event this information is protected by the Federal Confidentiality of Alcohol and Drug Abuse Patient Records regulations: The Federal rules restrict any use of the information to criminally investigate or prosecute any alcohol or drug abuse patient.[facility] HospitalIn the event this information is protected by the Federal Confidentiality of Alcohol and Drug Abuse Patient Records regulations: The Federal rules restrict any use of the information to criminally investigate or prosecute any alcohol or drug abuse patient.[facility] HospitalIn the event this information is protected by the Federal Confidentiality of Alcohol and Drug Abuse Patient Records regulations: The Federal rules restrict any use of the information to criminally investigate or prosecute any alcohol or drug abuse patient.[facility] HospitalIn the event this information is protected by the Federal Confidentiality of Alcohol and Drug Abuse Patient Records regulations: The Federal rules restrict any use of the information to criminally investigate or prosecute any alcohol or drug abuse patient.[facility] HospitalIn the event this information is protected by the Federal Confidentiality of Alcohol and Drug Abuse Patient Records regulations: The Federal rules restrict any use of the information to criminally investigate or prosecute any alcohol or drug abuse patient.[facility] HospitalIn the event this information is protected by the Federal Confidentiality of Alcohol and Drug Abuse Patient Records regulations: The Federal rules restrict any use of the information to criminally investigate or prosecute any alcohol or drug abuse patient.[facility] HospitalIn the event this information is protected by the Federal Confidentiality of Alcohol and Drug Abuse Patient Records regulations: The Federal rules restrict any use of the information to criminally investigate or prosecute any alcohol or drug abuse patient.[facility] HospitalIn the event this information is protected by the Federal Confidentiality of Alcohol and Drug Abuse Patient Records regulations: The Federal rules restrict any use of the information to criminally investigate or prosecute any alcohol or drug abuse patient.[facility] HospitalIn the event this information is protected by the Federal Confidentiality of Alcohol and Drug Abuse Patient Records regulations: The Federal rules restrict any use of the information to criminally investigate or prosecute any alcohol or drug abuse patient.[facility] HospitalIn the event this information is protected by the Federal Confidentiality of Alcohol and Drug Abuse Patient Records regulations: The Federal rules restrict any use of the information to criminally investigate or prosecute any alcohol or drug abuse patient.[facility] HospitalIn the event this information is protected by the Federal Confidentiality of Alcohol and Drug Abuse Patient Records regulations: The Federal rules restrict any use of the information to criminally investigate or prosecute any alcohol or drug abuse patient.[facility] HospitalIn the event this information is protected by the Federal Confidentiality of Alcohol and Drug Abuse Patient Records regulations: The Federal rules restrict any use of the information to criminally investigate or prosecute any alcohol or drug abuse patient.[facility] HospitalIn the event this information is protected by the Federal Confidentiality of Alcohol and Drug Abuse Patient Records regulations: The Federal rules restrict any use of the information to criminally investigate or prosecute any alcohol or drug abuse patient.[facility] HospitalIn the event this information is protected by the Federal Confidentiality of Alcohol and Drug Abuse Patient Records regulations: The Federal rules restrict any use of the information to criminally investigate or prosecute any alcohol or drug abuse patient.[facility] HospitalIn the event this information is protected by the Federal Confidentiality of Alcohol and Drug Abuse Patient Records regulations: The Federal rules restrict any use of the information to criminally investigate or prosecute any alcohol or drug abuse patient.[facility] HospitalIn the event this information is protected by the Federal Confidentiality of Alcohol and Drug Abuse Patient Records regulations: The Federal rules restrict any use of the information to criminally investigate or prosecute any alcohol or drug abuse patient.[facility] HospitalIn the event this information is protected by the Federal Confidentiality of Alcohol and Drug Abuse Patient Records regulations: The Federal rules restrict any use of the information to criminally investigate or prosecute any alcohol or drug abuse patient.[facility] Reason for Visit (unrecogniz ed section and content) ReasonCommentsEstablished PatientReasonCommentsMassBack of earReasonComments Multiple Myeloma6 month follow upReasonCommentsResultsReasonCommentsMultiple MyelomaFollow upReasonCommentsRadiology NMSpecialtyDiagnoses / Procedures Referred By ContactReferred To ContactMOLECULAR & FUNCTIONAL IMAGING Diagnoses Multiple myeloma not having achieved remission (HCC) Procedures NM PET/CT WHOLE BODY SUBSEQUENT PET IMAGING FOR CT ATTENUATION WHOLE BODY Anibal Ash MD [address] [place] [address] [place] [address] Molecular & Functional Imaging [address] [id number] Referral IDStatusReasonStart DateExpiration DateVisits RequestedVisits [id number] Auto-Generated Referral /[id number] CareNon dm nail careReasonComments Multiple Myeloma3 month follow upReasonCommentsMultiple MyelomaFollow upReason CommentsDM Foot CareDm nail careReasonCommentsRadiology CTSpecialtyDiagnoses / ProceduresReferred By ContactReferred To ContactCT IMAGING Diagnoses Mass of ear auricle, left Multiple myeloma not having achieved remission (HCC) Thrombocytopenia (HCC) Chronic anticoagulation Procedures CT NECK SOFT TISSUE W IVCON CT SOFT TISSUE NECK W/CONTRAST MATERIAL Anibal Ash MD [address] [place] [address] [place] [address] Phone: tel: fax: [facility] [place] [address] Referral IDStatusReasonStart DateExpiration DateVisits RequestedVisits [id number] Auto-Generated Referral /[id number] AppointmentReasonCommentsNew Patient Parotid massSpecialtyDiagnoses / ProceduresReferred By ContactReferred To ContactEnt - Otolaryngology Diagnoses Parotid mass Procedures CONSULT TO ENT OFFICE/OUTPATIENT [facility] 60 MINUTES Anibal Ash MD [address] [place] [address] [place] [address] Phone: tel: fax: Referral IDStatusReasonStart DateExpiration DateVisits RequestedVisits [id number] PCP Requested Referral /[id number] [id number]- [place] Initial ConsultReasonCommentsENT Path resultsReasonCommentsFollow UpFollow up ReasonCommentsMultiple MyelomaReasonCommentsPalliative CareConsultSpecialty Diagnoses / ProceduresReferred By ContactReferred To ContactHospice & Palliative Medicine Diagnoses Parotid neoplasm Parotid mass Procedures CONSULT TO PALLIATIVE CARE OFFICE/OUTPATIENT [facility] MDM 60 MINUTES Gurpreet Pang MD [address] [place] [address] Phone: tel: fax: Referral IDStatusReasonStart DateExpiration DateVisits RequestedVisits [id number] PCP Requested Referral /[id number] Gen RMPReasonCommentsAnticoagulation Follow UpReasonCommentsOpened In ErrorReasonOnset DateCommentsSimulation Request Form08/18/2024SpecialtyDiagnoses / ProceduresReferred By ContactReferred To ContactRadiation Oncology Diagnoses Parotid neoplasm Parotid mass Procedures RAD/ONC CONSULT OFFICE/OUTPATIENT [facility] MDM 60 MINUTES Gurpreet Pang MD [address] [place] [address] Phone: tel: fax: Referral IDStatusReasonStart DateExpiration DateVisits RequestedVisits [id number] PCP Requested Referral [id number] QuestionReasonCommentsPalliative Care ReasonCommentsFollow UpPost opReasonCommentsDM Foot Care [...] 16, 2024 Team MemberRelationshipSpecialtyStart DateEnd Date Danilo Clakr DO PCP - GeneralInternal Medicine10/29/16Team MemberRelationshipSpecialtyStart Date [...] Date Danilo Clark DO PCP - GeneralInternal [facility]10/29/16 Team Status: Active Member Role Status [...] End Date Danilo Clark MD [address] [place] [phone] PCP - GeneralInternal Abddqwbl19/3/23Team MemberRelationshipSpecialtyStart Date End Date Danilo Clark MD [address] [place] [id number] PCP - [facility]01/24/23 Team Status: Active Member Role Status Dates Danilo Clark DO Primary Care Provider Active Start: November 03, 2023 Anibal Ash , MARCUSttending ProviderActiveStart: November 03, 2023 Team Status: Inactive Member Role Status Dates Danilo Clark DO Primary Care Provide r, Attending Provider Active Start: January 12, 2024 End: January 12, 2024Team MemberRelationshipSpecialtyStart DateEnd Date Danilo Clark DO PCP - [facility]10/29/16Team MemberRelationshipSpecialtyStart Date End Date Danilo Clark MD [address] [place] [phone] PCP - [facility]01/24/23 Team Status: Active Member Role Status Dates [...] End Date Danilo Clark DO [facility]10/29/16Team MemberRelationshipSpecialtyStart Date End Date Danilo Clark DO PCP - GeneralInternal Medicine10/29/16Team MemberRelationshipSpecialtyStart Date End Date Danilo Clark DO [facility] - [facility]10/29/16 Team Status: Active Member Role Status Dates Danilo Clark DO Primary Care Provider Active Start: May 10, 2024 Idalmis Basilio APRN MANAGER ASSEMBLY-CAttending ProviderActiveStart: May 10, 2024 Team Status: Inactive Member Role Status Dates Danilo Clark DO Primary Care Provide r, Attending Provider Active Start: July 14, 2024 End: July 14, 2024Team MemberRelationshipSpecialtyStart DateEnd Date Danilo Clark DO PCP - [facility]10/29/16Team MemberRelationshipSpecialtyStart Date End Date Danilo Clark DO PCP - [facility]10/29/16Team MemberRelationshipSpecialtyStart Date End Date Danilo Clark DO [address] [place] [address] PCP - [facility]nal Rbqcknww32/3/23Team MemberRelationshipSpecialtyStart Date End Date Danilo Clark DO [address] [place] [address] PCP - [facility]nal Psiakeyb18/3/23Team MemberRelationshipSpecialtyStart Date End Date Danilo Clark DO PCP - GeneralInternal [facility]10/29/16Team MemberRelationshipSpecialtyStart Date End Date Danilo Clark, DO PCP - [facility]10/29/16 MemberRelationshipSpecialtyStart Date End Date Danilo lCark, DO PCP - [facility]10/29/16 MemberRelationshipSpecialtyStart Date End Date Danilo Clark, DO PCP - [facility]10/29/16 MemberRelationshipSpecialtyStart Date End Date Danilo Clark DO PCP - [facility]10/29/16 MemberRelationshipSpecialtyStart Date End Date Danilo Clark DO PCP - [facility]10/29/16 MemberRelationshipSpecialtyStart Date End Date Danilo Clark DO PCP - [facility]10/29/16 MemberRelationshipSpecialtyStart Date End Date Danilo Clark DO PCP - [facility]10/29/16 MemberRelationshipSpecialtyStart Date End Date Danilo Clark DO PCP - [facility]10/29/16am MemberRelationshipSpecialtyStart Date End Date Danilo Clark DO PCP - [facility]10/29/16Team MemberRelationshipSpecialtyStart Date End Date Danilo Clark DO PCP - [facility]10/29/16Team MemberRelationshipSpecialtyStart Date End Date Danilo Clark DO PCP - [facility]10/29/16 Team Status: Active Member Role/Relationship Status Dates [...] BE BASED ON THE PRIMARY CLINICAL RECORDS. [employer] [facility]. provides no warranty or guarantee of the accuracy or completeness of information in this document.
== END 2025-01-14 12:06 | disposition home or self-care (01) ==
LOC: ER 18:20 → MS 01-14 09:14
PROVIDERS: Student in an Organized Health Care Education/Training Program; Admitting Provider Internal Medicine; Emergency Provider Emergency Medicine; PCP Internal Medicine; Visit Provider Internal Medicine
DX: I26.99 Other pulmonary embolism without acute cor pulmonale (principal); I13.0 Hypertensive heart and chronic kidney disease with heart failure and stage 1 through stage 4 chronic kidney disease, or unspecified chronic kidney disease; C90.00 Multiple myeloma not having achieved remission; I50.9 Heart failure, unspecified; E11.22 Type 2 diabetes mellitus with diabetic chronic kidney disease; Z79.4 Long term (current) use of insulin; Z79.01 Long term (current) use of anticoagulants; R54 Age-related physical debility; N40.0 Benign prostatic hyperplasia without lower urinary tract symptoms; L40.9 Psoriasis, unspecified; Z85.828 Personal history of other malignant neoplasm of skin; E78.00 Pure hypercholesterolemia, unspecified; Z79.899 Other long term (current) drug therapy; R79.1 Abnormal coagulation profile; N18.9 Chronic kidney disease, unspecified; Z23 Encounter for immunization
CPT/HCPCS: 36415; 71045; 71275; 80048; 80053; 81001; 82948; 83735; 83880; 84484; 85025; 85610; 85730; 87493; 90677; 93005; 93306; 93970; 94761; 96374; 97161; 99285; G0378; J1938; Q9967

== ENCOUNTER 2025-01-22 | Outpatient (RCR) | payer MEDICARE, SELFPAY | END 2025-02-20 23:59 | disposition home or self-care (01) | LOC: MM | PROVIDERS: PCP Internal Medicine; Visit Provider Internal Medicine | DX: Z51.81 Encounter for therapeutic drug level monitoring (principal); Z79.01 Long term (current) use of anticoagulants ==